=== PATIENT | male | born 1950 | race Caucasian/White ===

== ENCOUNTER 2018-07-18 21:42 | Inpatient (IN) | payer BC, OTHER ==
--- OUTSIDE RECORDS SUMMARY | 2018-07-18 21:45 | XMS REPORT ---
:1950 Author Organization [facility] Address [address] [place] [address] Dr. Smith [address] [place] [id number] Care Team Providers Name Role Phone Unavailable Unavailable Unavailable Problems This patient has no known problems. Allergies, Adverse Reactions, Alerts This patient has no known allergies or adverse reactions. Medications This patient has no known medications.
--- OUTSIDE RECORDS SUMMARY | 2018-07-18 21:45 | XMS REPORT | Clinical Summary ---
:1950 Author Organization [facility] Address [address] [place] [id number] Care Team Providers Name Role Phone Juma Dobbins MD Primary Care Provider Allergies Active Allergy Reactions Severity Noted Date Comments Metoclopramide Hcl Rash Low 06/03/2012 Medications Medication Sig Dispensed Refills Start Date End Date Status etodolac (LODINE) TAKE 1 TABLET BY 0 04/09/2018 Active 500 MG tablet MOUTH TWICE DAILY azelastine 1 spray into 0 01/17/2017 Active (ASTELIN) 137 mcg each nostril. (0.1 %) nasal spray hydrOXYzine TAKE 1 TABLET BY 0 07/01/2017 Active (ATARAX) 25 MG MOUTH EVERY 6 tablet HOURS NEEDED FOR ITCHING LEVEMIR FLEXTOUCH INJECT 50 UNITS 0 04/30/2018 Active U-100 INSULN 100 SC BID unit/mL (3 mL) insulin pen lisinopril Take 10 mg by 0 03/28/2018 Active (PRINIVIL,ZESTRIL) mouth. 10 mg tablet metFORMIN TAKE 1 TABLET BY 0 09/12/2017 Active (GLUCOPHAGE) 1,000 MOUTH TWICE mg tablet DAILY metoprolol TK 1 T PO BID 3 04/26/2018 Active tartrate (LOPRESSOR) 100 mg tablet omega-3 acid ethyl TK 4 CS PO QD 0 03/28/2018 Active esters (LOVAZA) 1 gram capsule pen needle, USE TO INJECT 0 09/02/2017 Active diabetic (BD UNDER THE SKIN ULTRA-FINE SHORT TWICE DAILY PEN NEEDLE) 31 gauge x 5/16" needle pen needle, Use every night 0 06/06/2016 Active diabetic 29 gauge at bedtime x 1/2" needle insulin U UTD 1 04/15/2018 Active syringe-needle U-100 1 mL 31 gauge x 5/16 syringe rosuvastatin Take 1 tablet 90 tablet 3 05/05/2018 Active (CRESTOR) 20 MG (20 mg total) by 0 tabletIndications: mouth daily. 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 05/10 without angina pectoris Abnormal EKG 05/10/2018 SOB (shortness of breath) 05/10/2018 Benign essential hypertension 06/03/2012 Diabetes mellitus type 2, uncontrolled, without complications 06/03/2012 Overview: Overview: ICD10 Diagnosis Term Senior Strategy Manager Utility HLD (hyperlipidemia) 06/03/2012 Encounters Date Type Specialty Care Team Description 05/05/2018 Office Visit Cardiology Patrick Zarate MD SOB (shortness of breath) (Primary Dx); Benign essential hypertension; 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 2-4 times a month 2018 How many drinks containing alcohol do you have on a 1 or 2 05/05/2018 typical day when you are drinking? How often do you have six or more drinks on one Not asked occasion? Sex Assigned at Date Recorded Not on file Job Start Date Occupation Industry Not on file Not on file Not on file Travel History Travel Start Travel End No recent travel history available. 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 Plan of Treatment Date Type Specialty Care Team Description 11/04/2018 Office Visit Cardiology Patrick Zarate MD [id number] [address] Health Maintenance Due Date Last Done Comments DIABETIC RETINAL EYE EXAM 1950 DIABETIC FOOT EXAM 02/24/1958 URINE MICROALBUMIN 02/24/1958 COLON CANCER SCREENING 02/24/1998 SHINGLES VACCINES (#1) 02/24/1998 65+ PNEUMOCOCCAL VACCINE (1 of 2 - PCV13) 02/24/2013 PNEUMOCOCCAL POLYSACCHARIDE VACCINE AGE 65 AND OVER 02/24/2013 INFLUENZA VACCINE 11/27/2017 Procedures Procedure Name Priority Date/Time Associated Diagnosis Comments ECG 12-LEAD Routine 05/05/2018 1:57 PM Benign essential Results for this 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) Ventricular rate 63 [facility] Atrial rate 63 [facility] GA interval 184 [facility] QRSD interval 124 [facility] QT interval 434 [facility] QTC interval 444 [facility] P axis 1 61 [facility] QRS axis 1 3 [facility] T wave axis 16 [facility] EKG impression Normal sinus rhythm-Right bundle branch [facility] block-Abnormal ECG-No previous ECGs available- Narrative Performed At Performing Organization Address City/State/Zipcode Phone Number [facility] [address] [place] [address] after 07/17/2017 Insurance Payer Benefit Plan / Group Subscriber ID Type Phone Address MEDICARE MEDICARE PART A AND B xxxxxxxxxxx Medicare [place], [place] Advance Directives Patient has advance care planning documents on file. For more information, please contact:Cruz Cox[address] [facility] [place] [address]
[2018-07-18 22:49] LABS: Absolute Lymphocytes (CBC) 0.6 K/uL (0.7-4.9); Absolute Monocytes 0.5 K/uL (0.1-1.3); Absolute Neutrophil 3.8 K/uL (1.8-8.0); Basophils % 0.3 % (0-1.3); Eosinophils % 0.1 % (0-4.4); Hematocrit 35.1 % (39.6-49.0); MPV 7.4 fL (7.6-11.3); Monocytes % 9.6 % (3.3-12.3); RBC Red Blood Cell Count 4.14 M/uL (4.33-5.43)
[2018-07-18 23:12] LABS: CKMB Creatine Kinase MB 1.1 ng/mL (0.3-3.6); Potassium 4.1 mmol/L (3.5-5.1); Troponin (Emerg Dept Use Only) 0.02 ng/mL (0.0-0.045)
--- NOTE | 2018-07-18 23:40 | EDPHYS ---
Physician Documentation [facility] Name: Shivam Sykes Age: 68 yrs Sex: Male : 1950 Arrival Date: 07/18/2018 Time: 21:44 Bed 19 Private MD: ED Physician Pastor Hernandez HPI: 07/19 00:04 This 68 yrs old Male presents to ER via EMS with complaints of Dizziness, tw4 General Weakness, Fall Injury. 00:04 The patient presents with dizziness, feeling faint, lightheadedness, feeling off tw4 balance. Onset: The symptoms/episode began/occurred this morning. Context: occurred at home, occurred while the patient was standing, just prior to the episode the patient experienced no apparent symptoms. Modifying factors: The symptoms are alleviated by nothing, the symptoms are aggravated by nothing. Associated signs and symptoms: The patient has no apparent associated signs or symptoms. Severity of symptoms: At their worst the symptoms were moderate in the emergency department the symptoms are unchanged. The patient has not experienced similar symptoms in the past. Historical: - Allergies: 07/18 21:50 No Known Allergies; rr5 - Home Meds: 21:50 Metoprolol Tartrate Oral [Active]; Levemir subcutaneous subcutaneous [Active]; Crestor rr5 oral oral [Active]; - PMHx: 21:50 Hypertension; Diabetes - IDDM; rr5 - PSHx: 21:50 2000; rr5 - Immunization history:: Adult Immunizations not up to date, Flu vaccine is not up to date. - Social history:: Smoking status: Patient/guardian denies using tobacco, Patient uses alcohol, occasionally. Patient/guardian denies using street drugs. - Immunization history: Last tetanus immunization: unknown. - Ebola Screening: : Patient negative for fever greater than or equal to 101.5 degrees Fahrenheit, and additional compatible Ebola Virus Disease symptoms Patient denies exposure to infectious person Patient denies travel to an Ebola-affected area in the 21 days before illness onset. ROS: 07/19 00:04 Constitutional: Negative for fever, chills, and weight loss, Eyes: Negative for injury, tw4 pain, redness, and discharge, Cardiovascular: Negative for chest pain, palpitations, and edema, Respiratory: Negative for shortness of breath, cough, wheezing, and pleuritic chest pain, Abdomen/GI: Negative for abdominal pain, nausea, vomiting, diarrhea, and constipation. MS/extremity: Positive for injury or acute deformity, decreased range of motion, pain, Negative for abrasion, bite, contusion, laceration, paresthesias. Neuro: Positive for dizziness, near syncope, Negative for loss of consciousness, numbness, seizure activity, speech changes, tinnitus, tremor, visual changes, weakness. Exam: 00:04 Constitutional: This is a well developed, well nourished patient who is awake, alert, tw4 and in no acute distress. Head/Face: Normocephalic, atraumatic. Chest/axilla: Normal chest wall appearance and motion. Nontender with no deformity. No lesions are appreciated. Cardiovascular: Regular rate and rhythm with a normal S1 and S2. No gallops, murmurs, or rubs. Normal PMI, no JVD. No pulse deficits. Respiratory: Lungs have equal breath sounds bilaterally, clear to auscultation and percussion. No rales, rhonchi or wheezes noted. No increased work of breathing, no retractions or nasal flaring. Abdomen/GI: Soft, non-tender, with normal bowel sounds. No distension or tympany. No guarding or rebound. No evidence of tenderness throughout. Back: No spinal tenderness. No costovertebral tenderness. Full range of motion. Neuro: Awake and alert, GCS 15, oriented to person, place, time, and situation. Cranial nerves II-XII grossly intact. Motor strength 5/5 in all extremities. Sensory grossly intact. Cerebellar exam normal. Normal gait. 00:04 Musculoskeletal/extremity: Extremities: noted in the right hip: Vital Signs: 07/18 21:50 Weight 105.69 kg; Height 6 ft. 0 in. (182.88 cm); Pain 3/10; rr5 21:55 BP 163 / 79; Pulse 95; Resp 20; Temp 100.6; Pulse Ox 99% on R/A; rr5 22:45 BP 163 / 67; Pulse 90; Resp 26; Pulse Ox 94% on R/A; Pain 0/10; aa1 23:27 BP 163 / 73; Pulse 90; Resp 16; Temp 98.1; Pulse Ox 97% on R/A; Pain 0/10; aa1 07/19 00:15 BP 165 / 69; Pulse 86; Resp 15; Pulse Ox 96% ; rr5 01:01 BP 140 / 66; Pulse 84; Resp 18; Pulse Ox 95% on R/A; Pain 0/10; aa1 07/18 21:50 Body Mass Index 31.60 (105.69 kg, 182.88 cm) rr5 Providence Coma Score: 07/18 21:55 Eye Response: spontaneous(4). Verbal Response: oriented(5). Motor Response: obeys rr5 commands(6). Total: 15. Trauma Score (Adult): 21:55 Eye Response: spontaneous(1); Verbal Response: oriented(1); Motor Response: obeys rr5 commands(2); Systolic BP: > 89 mm Hg(4); Respiratory Rate: 10 to 29 per min(4); Providence Score: 15; Trauma Score: 12 22:45 Eye Response: spontaneous(1); Verbal Response: oriented(1); Motor Response: obeys aa1 commands(2); Systolic BP: > 89 mm Hg(4); Respiratory Rate: 10 to 29 per min(4); Providence Score: 15; Trauma Score: 12 23:27 Eye Response: spontaneous(1); Verbal Response: oriented(1); Motor Response: obeys aa1 commands(2); Systolic BP: > 89 mm Hg(4); Respiratory Rate: 10 to 29 per min(4); Providence Score: 15; Trauma Score: 12 MDM: 22:00 Patient medically screened. tw4 07/19 00:13 Differential diagnosis: TIA. Data reviewed: vital signs, nurses notes. tw4 00:45 Data interpreted: Pulse oximetry: Interpretation: normal. Test interpretation: by ED tw4 physician or midlevel provider: ECG, plain radiologic studies. Counseling: I had a detailed discussion with the patient and/or guardian regarding: the historical points, exam findings, and any diagnostic results supporting the discharge/admit diagnosis, lab results, radiology results. Medication response: morphine relieved the patient's pain. Symptoms have resolved. Response to treatment: There is no appreciated change of the patient's symptoms at this time. Physician consultation: North Grant MD regarding admission, to the medical/surgical unit. and will see patient in inpatient room. 07/18 22:03 Order name: Basic Metabolic Panel tw4 07/18 22:03 Order name: CBC with Diff tw4 03/22 22:03 Order name: Creatinine for Radiology tw4 07/18 22:03 Order name: Type And Screen tw4 07/18 22:03 Order name: CK; Complete Time: 23:34 tw4 07/18 22:03 Order name: Troponin (emerg Dept Use Only) tw4 07/18 22:03 Order name: CT Head C Spine tw4 07/18 22:03 Order name: CT Pelvis wo Cont tw4 07/18 22:03 Order name: EKG; Complete Time: 22:04 tw4 07/18 22:03 Order name: Ckmb tw4 07/18 22:09 Order name: Flu tw4 07/19 00:49 Order name: Urinalysis EDNC 07/18 22:03 Order name: Labs collected and sent; Complete Time: 22:51 tw4 07/18 22:51 Order name: EKG - Nurse/Tech; Complete Time: 22:51 aa1 EC:45 Rate is 89 beats/min. Rhythm is regular with Right bundle branch block. QRS [place] is tw4 Normal. [place] interval is normal. QRS interval is normal. QT interval is normal. No Q waves. T waves are Inverted in leads V1, V2, V3, V6. No ST changes noted. Clinical impression: NSR w/ Non-specific ST/T Changes. Interpreted by me. Reviewed by me. Administered Medications: 00:05 Drug: Zofran 4 mg Route: IVP; Site: right forearm; aa1 01:05 Follow up: Response: No adverse reaction aa1 00:08 Drug: morphine 4 mg Route: IVP; Site: right forearm; aa1 01:05 Follow up: Response: No adverse reaction; Pain is decreased aa1 Disposition: 07/18/18 23:41 Hospitalization ordered by North Grant for Inpatient Admission. Preliminary diagnosis are Syncope and collapse, Intra-abdominal and pelvic swelling, mass and lump. - Bed requested for Telemetry/MedSurg (Inpatient). - Status is Inpatient Admission. aa1 - Condition is Fair. - Problem is new. - Symptoms are unchanged. UTI on Admission? No Signatures: Dispatcher [employer] EDNC Joselyn Sales RN RN aa1 Ora Uriostegui RN RN Pastor Hernandez MD MD tw4 Melissa, Roe, RN RN rr5 Corrections: (The following items were deleted from the chart) 07/18 23:40 23:40 07/18/2018 23:40 Discharged to Home. Impression: Syncope and collapse; pelvic tw4 mass. Condition is Stable. Forms are Medication Reconciliation Form, Thank You Letter, Antibiotic Education, Prescription Opioid Use. Follow up: Private Physician; When: Upon discharge from the Emergency Department; Reason: If symptoms return, Recheck today's complaints, Continuance of care. Problem is new. Symptoms have improved. tw4 07/19 01:08 07/18 23:41 Hospitalization Ordered by North Grant MD for Inpatient Admission. cg Preliminary diagnosis is Syncope and collapse; Intra-abdominal and pelvic swelling, mass and lump. Bed requested for Telemetry/MedSurg (Inpatient). Status is Inpatient Admission. Condition is Fair. Problem is new. Symptoms are unchanged. UTI on Admission? No. tw4 07/19 01:34 01:08 07/18/2018 23:41 Hospitalization Ordered by North Grant MD for Inpatient aa1 Admission. Preliminary diagnosis is Syncope and collapse; Intra-abdominal and pelvic swelling, mass and lump. Bed requested for Telemetry/MedSurg (Inpatient). Status is Inpatient Admission. Condition is Fair. Problem is new. Symptoms are unchanged. UTI on Admission? No. cg
--- NOTE | 2018-07-18 23:40 | ER ---
Nurse's Notes [facility] Name: Shivam Sykes Age: 68 yrs Sex: Male : 1950 Arrival Date: 07/18/2018 Time: 21:44 Bed 19 Private MD: Diagnosis: Syncope and collapse;Intra-abdominal and pelvic swelling, mass and lump Presentation: 07/18 21:50 Presenting complaint: EMS states: patient fell down 10-11 hours ago, complaining of rr5 right hip and low back pain. complaining of dizziness and generalized body weakness. 21:50 Transition of care: patient was not received from another setting of care. Onset of rr5 symptoms was July 18, 2018. Risk Assessment: Do you want to hurt yourself or someone else? Patient reports no desire to harm self or others. Initial Sepsis Screen: Does the patient meet any 2 criteria? No. Patient's initial sepsis screen is negative. Does the patient have a suspected source of infection? No. Patient's initial sepsis screen is negative. Care prior to arrival: None. 21:50 Method Of Arrival: EMS: [facility] rr5 21:50 Acuity: JIMBO 2 rr5 21:50 Note CBG from EMS 150 mg/dl, pain score of 3/10 at right hip and right leg. rr5 21:55 Mechanism of Injury: Fall. Trauma event details: Injury occurred: at home. Injury rr5 occurred: July 18, 2018 Injury occurred at: 10:00. Trauma Activation: Alert Physician: ED Physician; Name: dr. chin; Notified At: 21:55; Arrived At: 21:55 Physician: General Surgeon; Name: ; Notified At: 21:55; Arrived At: Physician: Radiology; Name: meghan; Notified At: 21:55; Arrived At: 21:56 Physician: Respiratory; Name: ; Notified At: 21:55; Arrived At: Physician: Lab; Name: ; Notified At: 21:55; Arrived At: Historical: - Allergies: 21:50 No Known Allergies; rr5 - Home Meds: 21:50 Metoprolol Tartrate Oral [Active]; Levemir subcutaneous subcutaneous [Active]; Crestor rr5 oral oral [Active]; - PMHx: 21:50 Hypertension; Diabetes - IDDM; rr5 - PSHx: 21:50 2000; rr5 - Immunization history:: Adult Immunizations not up to date, Flu vaccine is not up to date. - Social history:: Smoking status: Patient/guardian denies using tobacco, Patient uses alcohol, occasionally. Patient/guardian denies using street drugs. - Immunization history: Last tetanus immunization: unknown. - Ebola Screening: : Patient negative for fever greater than or equal to 101.5 degrees Fahrenheit, and additional compatible Ebola Virus Disease symptoms Patient denies exposure to infectious person Patient denies travel to an Ebola-affected area in the 21 days before illness onset. Screenin:55 Abuse screen: Denies threats or abuse. Denies injuries from another. Tuberculosis rr5 screening: No symptoms or risk factors identified. 21:55 Nutritional screening: No deficits noted. rr5 21:55 Fall Risk Fall in past 12 months (25 points). Gait- Weak (10 pts.). Total Carlos Fall rr5 Scale indicates Low Risk Score (25-44 pts). Fall prevention measures have been instituted. Side Rails Up X 2 Placed close to Nursing Station Frequent Obs/Assesments occuring Family Present and informed to notify staff if they need to leave bedside As available Patient and Family Educated on Fall Prevention Program and strategies. Primary Survey: 21:50 NO uncontrolled hemorrhage observed. A: The patient is alert. Airway: patent. rr5 21:50 Breathing/Chest: Respiratory pattern: regular, Respiratory effort: spontaneous, rr5 unlabored, Breath sounds: clear, Chest inspection: symmetrical rise and fall of the chest. Circulation: Cardiac rhythm: sinus rhythm Heart tones present. Pulses: palpable right radial artery. Skin color: pink, Skin temperature: warm. Disability Alert. Exposure/Environment: A warming method has been applied: A warm blanket has been provided to the patient. 22:50 Reassessment Airway Airway Patent Oxygen No O2 Breathing/Chest Respiratory pattern aa1 Regular Respiratory effort Spontaneous Unlabored Breath sounds Clear Chest inspection Symmetrical Circulation Pulses Palpable Color [place] Temperature Warm Disability Alert. Secondary Survey: 21:50 HEENT: No deficits noted. Gastrointestinal: No deficits noted. : No deficits noted. rr5 Musculoskeletal: Capillary refill < 3 seconds, Range of motion: limited in right hip. Injury Description: skin peeled at right elbow. Assessment: 21:50 General: Appears in no apparent distress. comfortable, Behavior is calm, cooperative, rr5 appropriate for age. Pain: Complains of pain in low back Pain radiates to right hip Pain currently is 3 out of 10 on a pain scale. Quality of pain is described as aching, Pain began suddenly, Is intermittent. 21:50 Neuro: Level of Consciousness is awake, alert, obeys commands, Oriented to person, rr5 place, time, situation, Appropriate for age Reports dizziness, weakness in body. EENT: No signs and/or symptoms were reported regarding the EENT system. Cardiovascular: Capillary refill < 3 seconds Patient's skin is warm and dry. Respiratory: Airway is patent Respiratory effort is even, unlabored, Respiratory pattern is regular, symmetrical. GI: No signs and/or symptoms were reported involving the gastrointestinal system. : No signs and/or symptoms were reported regarding the genitourinary system. Derm: Skin is intact, Skin temperature is warm Wound noted skin peeled right elbow. Musculoskeletal: Capillary refill < 3 seconds, Range of motion: limited in right hip Reports weakness in generalized. 22:30 Reassessment: Patient appears in no apparent distress at this time. Patient and/or aa1 family updated on plan of care and expected duration. Pain level reassessed. Patient is alert, oriented x 3, equal unlabored respirations, skin warm/dry/pink. Pt returned from CT at this time Patient denies pain at this time. 23:05 Reassessment: Patient appears in no apparent distress at this time. Patient and/or aa1 family updated on plan of care and expected duration. Pain level reassessed. Patient is alert, oriented x 3, equal unlabored respirations, skin warm/dry/pink. MD at bedside with pt \T\ family discussing CT results. 07/19 00:00 Reassessment: Patient appears in no apparent distress at this time. Patient and/or aa1 family updated on plan of care and expected duration. Pain level reassessed. Patient is alert, oriented x 3, equal unlabored respirations, skin warm/dry/pink. Awaiting bed admission orders from hospitalist. 01:01 Reassessment: Patient appears in no apparent distress at this time. Patient and/or aa1 family updated on plan of care and expected duration. Pain level reassessed. Patient is alert, oriented x 3, equal unlabored respirations, skin warm/dry/pink. Pt awaiting bed assignment. 01:30 Reassessment: Patient appears in no apparent distress at this time. Patient is alert, aa1 oriented x 3, equal unlabored respirations, skin warm/dry/pink. Report given to DAVID Lawrence on 4th floor. Vital Signs: 07/18 21:50 Weight 105.69 kg; Height 6 ft. 0 in. (182.88 cm); Pain 3/10; rr5 21:55 BP 163 / 79; Pulse 95; Resp 20; Temp 100.6; Pulse Ox 99% on R/A; rr5 22:45 BP 163 / 67; Pulse 90; Resp 26; Pulse Ox 94% on R/A; Pain 0/10; aa1 23:27 BP 163 / 73; Pulse 90; Resp 16; Temp 98.1; Pulse Ox 97% on R/A; Pain 0/10; aa1 07/19 00:15 BP 165 / 69; Pulse 86; Resp 15; Pulse Ox 96% ; rr5 01:01 BP 140 / 66; Pulse 84; Resp 18; Pulse Ox 95% on R/A; Pain 0/10; aa1 07/18 21:50 Body Mass Index 31.60 (105.69 kg, 182.88 cm) rr5 Leigh Coma Score: 07/18 21:55 Eye Response: spontaneous(4). Verbal Response: oriented(5). Motor Response: obeys rr5 commands(6). Total: 15. Trauma Score (Adult): 21:55 Eye Response: spontaneous(1); Verbal Response: oriented(1); Motor Response: obeys rr5 commands(2); Systolic BP: > 89 mm Hg(4); Respiratory Rate: 10 to 29 per min(4); Leigh Score: 15; Trauma Score: 12 22:45 Eye Response: spontaneous(1); Verbal Response: oriented(1); Motor Response: obeys aa1 commands(2); Systolic BP: > 89 mm Hg(4); Respiratory Rate: 10 to 29 per min(4); Leigh Score: 15; Trauma Score: 12 23:27 Eye Response: spontaneous(1); Verbal Response: oriented(1); Motor Response: obeys aa1 commands(2); Systolic BP: > 89 mm Hg(4); Respiratory Rate: 10 to 29 per min(4); Marbella Score: 15; Trauma Score: 12 ED Course: 20:34 Initial lab(s) drawn, by me, sent to lab. T\T\S collected, blood band applied to patient. aa1 Inserted saline lock: 18 gauge in right forearm, using aseptic technique. Blood collected. 20:47 EKG done, by ED staff, reviewed by Pastor Chin MD. aa1 21:44 Patient arrived in ED. rr5 21:50 Patient maintains SpO2 saturation greater than 95% on room air. Thermoregulation: warm aa1 blanket given to patient. 21:50 Patient has correct armband on for positive identification. Placed in gown. Bed in low aa1 position. Call light in reach. Side rails up X2. bus driver/monitor on. Pulse ox on. NIBP on. 21:54 Triage completed. rr5 22:00 Pastor Chin MD is Attending Physician. tw4 22:26 CT completed. Patient tolerated procedure well. Patient moved back from CT. vm2 22:29 CT Head C Spine In Process Unspecified. EDMS 22:33 CT Pelvis wo Cont In Process Unspecified. EDMS 22:50 Joselyn Sales, RN is Primary Nurse. aa1 22:50 Flu Sent. aa1 22:50 Ckmb Sent. aa1 22:50 Troponin (emerg Dept Use Only) Sent. aa1 22:50 CK Sent. aa1 22:51 Basic Metabolic Panel Sent. aa1 22:51 Creatinine for Radiology Sent. aa1 22:51 Type And Screen Sent. aa1 23:40 [place] Grant MD is Hospitalizing Provider. tw4 07/19 01:30 No provider procedures requiring assistance completed. Patient admitted, IV remains in aa1 place. Administered Medications: 00:05 Drug: Zofran 4 mg Route: IVP; Site: right forearm; aa1 01:05 Follow up: Response: No adverse reaction aa1 00:08 Drug: morphine 4 mg Route: IVP; Site: right forearm; aa1 01:05 Follow up: Response: No adverse reaction; Pain is decreased aa1 Intake: 07/18 23:27 PO: 240ml (Water); Total: 240ml. aa1 Outcome: 23:40 Discharge ordered by . tw4 23:41 Decision to Hospitalize by Provider. tw07/19 01:30 Admitted to Med/surg accompanied by nurse, via stretcher, room 401, with chart, Report aa1 called to Melinda Condition: stable Instructed on the need for admit, Demonstrated understanding of instructions. 01:30 Awaiting bed assignmentPatient's length of stay extended due to aa1 01:34 Patient left the ED. aa1 Signatures: Dispatcher [employer] EDMS Joselyn Sales, RN RN aa1 Meghan Leos 2 Pastor Chin MD MD tw4 Roe Melissa RN RN rr5
[2018-07-19] MEDS ORDERED: ONDANSETRON 4 MG/2 ML VIAL ONE (00:14)
[2018-07-19] MEDS ORDERED: MORPHINE 4 MG/ML SYR ONE (00:14)
--- NOTE | 2018-07-19 01:15 | P.HP ---
Certification for Inpatient Patient admitted to: Observation With expected LOS: <2 Midnights Practitioner: I am a practitioner with admitting privileges, knowledge of patient current condition, hospital course, and medical plan of care. Services: Services provided to patient in accordance with Admission requirements found in Title 42 Section 412.3 of the Code of Federal Regulations Patient History Date of Service: 07/19/18 Reason for admission: fall, fever, right hip soft tissue mass History of Present Illness: Mr Sykes is a 68 years old male with history of HTN, DM II, CAD, who has been complaining of right hip pain, for the last 6 month. Since 2 days ago, he has been dizzy, having headaches and weakness. Last night, he fell, landing over his right hip, exacerbating even more his chronic pain. He become dizzy while was dressing. He states that was not able to stand up from the floor due to pain and weakness. His son helped him once came home. He denied fever or chills at home, however, in ER his temp was 100.6 F. He denied cough, SOB, abdominal pain, nausea, vomiting or diarrhea. Lab work shows normal WBC count, BUN slightly elevated, CT head/cervical spine shows no acute abnormlities. CT pelvis remarkable for a large soft tissue mass involving the right iliac and acetabulum. He had an unintentional weight loss of about 20 lb in the last few months. Home medications list reviewed: Yes - Past Medical/Surgical History -: HTN -: DM II -: CAD -: cornary stent - Family History Family History: Reviewed- Non-Contributory - Social History Smoking Status: Former smoker Alcohol use: Yes CD- Drugs: No Place of Residence: Home Review of Systems 10-point ROS is otherwise unremarkable Physical Examination - Physical Exam General: Alert, In no apparent distress HEENT: Atraumatic, PERRLA, Mucous membr. moist/pink, EOMI, Sclerae nonicteric Neck: Supple, 2+ carotid pulse no bruit, No LAD, Without JVD or thyroid abnormality Respiratory: Clear to auscultation bilaterally, Normal air movement Cardiovascular: Regular rate/rhythm, Normal S1 S2 Gastrointestinal: Normal bowel sounds, No tenderness Musculoskeletal: Tenderness (right hip) Integumentary: No rashes Neurological: Normal speech, Normal strength at 5/5 x4 extr, Normal tone, Normal affect Lymphatics: No axilla or inguinal lymphadenopathy - Studies Laboratory Data (last 24 hrs) 07/18/18 20:34: Creatinine 1.20 07/18/18 20:34: WBC 4.9, Hgb 11.7 L, Hct 35.1 L, Plt Count 145 L 07/18/18 20:34: Sodium 136, Potassium 4.1, BUN 31 H, Creatinine 1.22, Glucose 157 H Microbiology Data (last 24 hrs): 07/18/18 20:34 Nasopharnyx Influenza Type A Antigen Screen - Final 07/18/18 20:34 Nasopharnyx Influenza Type B Antigen Screen - Final Assessment and Plan - Problems (Diagnosis) (1) Right hip pain Current Visit: Yes Status: Acute (2) Dizziness Current Visit: Yes Status: Acute (3) Fever Current Visit: Yes Status: Acute Qualifiers: Fever type: unspecified Qualified Code(s): R50.9 - Fever, unspecified (4) Soft tissue mass Current Visit: Yes Status: Acute (5) Diabetes mellitus Current Visit: Yes Status: Acute Qualifiers: Diabetes mellitus type: type 2 Diabetes mellitus fdc insulin use: without termite technician use Diabetes mellitus complication status: with unspecified complications Qualified Code(s): E11.8 - Type 2 diabetes mellitus with unspecified complications (6) HTN (hypertension) Current Visit: Yes Status: Acute Qualifiers: Hypertension type: essential hypertension Qualified Code(s): I10 - Essential (primary) hypertension - Plan The patient will be admitted to the hospital after sustainded a fall, in context of fever without clear source so far, UA is still pending. Incidentally was found a large soft tissue mass on his right pelvis area, suspicious for malignancy. Will order CT guided biopsy, physical therapy evaluation. Influenza negative, order blood cultures. Continue symptomatic treatment. - Advance Directives Does patient have a Living Will: No Does patient have a Durable POA for Healthcare: No - Code Status/Comfort Care Code Status Assessed: Yes Code Status: Full Code
[2018-07-19] MEDS ORDERED: ACETAMINOPHEN 500 MG TAB PO PRN (01:29)
[2018-07-19] MEDS ORDERED: MORPHINE 2 MG/ML SYR IM PRN (01:29)
[2018-07-19] MEDS: NA CHLORIDE 0.9% 1,000 ML IV SCH ×3 (02:02→21:10)
[2018-07-19 02:41] VITALS: BMI 31.6
[2018-07-19 06:36] LABS: Urine Appearance CLEAR; Urine Blood NEGATIVE (NEG); Urine Color DK YELLOW; Urine Glucose NEGATIVE (NEG); Urine Protein 2+ (NEG); Urine Specific Gravity >=1.030 (1.005-1.030)
[2018-07-19 06:51] LABS: Urine Bilirubin POSITIVE (NEG); Urine Microscopic Reflex ORDER UMIC
[2018-07-19 06:56] LABS: Urine Bacteria 20-50 /HPF (NONE SEEN); Urine Culture Reflex Order REFLEXED; Urine Mucus 1+ /HPF (NONE SEEN); Urine RBC NONE SEEN /HPF (NONE SEEN)
[2018-07-19] MEDS ORDERED: CEFTRIAXONE 1 GM/NS 50 ML 1 GM/50 ML BAG IV SCH (09:00)
[2018-07-19] MEDS ORDERED: METOPROLOL TAR 50 MG TAB PO SCH ×2 (09:00→09:55)
--- NOTE | 2018-07-19 09:39 | EKG ---
Test Date: 2018-07-18 Test Time: 22:43:54 Depositing Machine Operator: KADE MEASUREMENT RESULTS: Intervals: Rate: 89 NC: 158 QRSD: 124 QT: 372 QTc: 452 Henderson: P: 55 NC: 158 QRS: 5 T: 26 INTERPRETIVE STATEMENTS: Normal sinus rhythm Right bundle branch block Abnormal ECG Compared to ECG 05/25/2002 05:36:00 Right bundle-branch block now present T-wave abnormality no longer present Electronically Signed On 07-19-18 09:38:14 CDT by Jb Rodriguez
[2018-07-19] MEDS: CEFTRIAXONE/SWI 1gm 1 GM/10 ML SYR IV SCH (09:41)
[2018-07-19] MEDS ORDERED: GLUCAGON 1 MG/VIAL IM PRN (09:56)
[2018-07-19] MEDS ORDERED: D50W 25 GM/50 ML SYRINGE IV PRN (09:56)
--- NOTE | 2018-07-19 09:56 | P.PN ---
Subjective Date of Service: 07/19/18 Primary Care Provider: Dr. Dobbins Chief Complaint: fall, fever, right hip soft tissue mass Subjective: Other (Overall stable. Still with some right hip pain. Patient reports some increased urination over the past several days with some dysuria) Physical Examination - Vital Signs Temperature: 98.4 F Blood Pressure: 172/70 Pulse: 89 Respirations: 16 Pulse Ox (%): 97 - Physical Exam General: Alert, In no apparent distress, Oriented x3, Cooperative HEENT: Atraumatic Neck: Supple Respiratory: Clear to auscultation bilaterally, Normal air movement Cardiovascular: Normal pulses, Regular rate/rhythm Gastrointestinal: Normal bowel sounds, Soft and benign, Non-distended, No tenderness, No masses, No rebound, No guarding Musculoskeletal: Other (Pain to the right hip region) Integumentary: No erythema, No warmth, No cyanosis Neurological: Normal speech, Normal strength at 5/5 x4 extr, Normal tone, Normal affect - Studies Laboratory Data (last 24 hrs) 07/18/18 20:34: Creatinine 1.20 07/18/18 20:34: WBC 4.9, Hgb 11.7 L, Hct 35.1 L, Plt Count 145 L 07/18/18 20:34: Sodium 136, Potassium 4.1, BUN 31 H, Creatinine 1.22, Glucose 157 H Microbiology Data (last 24 hrs): 07/18/18 20:34 Nasopharnyx Influenza Type A Antigen Screen - Final 07/18/18 20:34 Nasopharnyx Influenza Type B Antigen Screen - Final Medications List Reviewed: Yes Assessment & Plan Discharge Plan: Home Plan to discharge in: Greater than 2 days Physician Review Additional Text: Impression: Right hip pain with weight loss CT showing mass to the right acetabulum and iliac region UTI Mild dehydration with mild acute renal injury Diabetes mellitus type 2 Hypertension BPH Anemia likely iron deficiency Obesity, BMI 31.6 Plan: Right hip pain with weight loss CT showing mass to the right acetabulum and iliac region: Will need to review final results of CT scan. Will consult orthopedics to further evaluate. Patient may require a CT-guided biopsy versus other. Will need to discuss with orthopedics. Other consideration may be transfer to higher level center to further evaluate. Await recommendations by orthopedics. Will have physical therapy assess ambulation. Provide medication for pain. Fall precautions in place. Patient may required skilled placement at discharge. UTI: Antibiotics started. Urine and blood culture obtained. Mild dehydration with mild acute renal injury: Continue IV fluids. Monitor lab closely. Will replace electrolytes as needed. Diabetes mellitus type 2: Will check A1c. Will provide sliding scale. Will need to review and obtain home medication. Hypertension: Review and restart home medication. BPH: Review and restart home medication. Anemia likely iron deficiency: Will check iron studies. Will monitor closely. Obesity, BMI 31.6: Will address lifestyle modification education. Time Spent Managing Pts Care (In Minutes): 55
[2018-07-19] MEDS ORDERED: TRAMADOL HCL 50 MG TAB PO PRN (09:57)
[2018-07-19] MEDS ORDERED: PNEUMOCOCCAL VACCINE 0.5 ML IMVAC ONE (10:00)
[2018-07-19] MEDS: INSULIN -REGULAR HUMAN 50 UNIT/0.5 ML ML SQ SCH ×3 (11:30→20:43)
[2018-07-19] MEDS: METOPROLOL TAR 50 MG TAB PO SCH ×2 (13:03→21:11)
[2018-07-19 13:54] LABS: Thyroid Stimulating Hormone 0.493 uIU/mL (0.360-3.740)
[2018-07-19] MEDS: ENOXAPARIN 40 MG/0.4 ML SQ SCH (16:02)
--- NOTE | 2018-07-19 16:21 | P.CNS ---
Date of Consult: 07/19/18 Reason for Consult: RIGHT HIP PAIN, SOFT TISSUE MASS Requesting Physician: Kali Chiu Primary Care Provider: Dr. Dobbins Chief Complaint: fall, fever, right hip soft tissue mass History of Present Illness: THIS 68-YEAR-OLD WHITE MALE WAS ADMITTED FROM THE EMERGENCY DEPARTMENT AFTER HAVING A FALL AT HOME LAST NIGHT WITH AN APPARENT TIA EPISODE. THE PATIENT FELL TO STRIKE THE RIGHT LATERAL SIDE OF HIS HEAD BUT DENIES LOSS OF CONSCIOUSNESS. THERE WAS ALSO IMPACT TO THE RIGHT LATERAL HIP, AND THE PATIENT WAS UNABLE TO STAND, REQUIRING HELP FROM HIS SON TO GET TO A CHAIR. THE PATIENT DESCRIBES 6 YEARS OF CHRONIC HIP PAIN PRIOR TO THIS FALL ASSOCIATED WITH NUMBNESS AND TINGLING TO HIS RIGHT KNEE. THE PATIENT HAD [facility] X-RAYS SHOWING SOME MILD ARTHRITIC CHANGES AT THE ACETABULAR RIMS SO HE WAS SEEN IN MY OFFICE ON 06/13/16. AP AND FROG LATERAL PELVIS X-RAYS THERE SHOWED NO NARROWING OF JOINT SPACE IN THE WEIGHT BEARING DOMES, AND THE PATIENT WAS INITIATED ON LUMBOSACRAL STABILIZATION EXERCISES, CONSERVATIVE MANAGEMENT OF SCIATICA WHICH WAS STRONGLY INDICATED BY THE NUMBNESS AND TINGLING RADIATING DOWN TO HIS KNEE. CT SCAN DONE WHILE THE PATIENT WAS IN THE EMERGENCY DEPARTMENT SHOWS A SOFT TISSUE MASS INVOLVING THE RIGHT ILIUM AND ILIAC CREST ASSOCIATED WITH AGGRESSIVE LOSS OF BONE MASS OF THE ILIAC BONE DOWN TO JUST ABOVE THE ACETABULUM BY MY READ. [address] SCAN PERFORMED FORMAL RADIOLOGY REPORT IS YET TO BE AVAILABLE FOR REVIEW. THE PATIENT HAS BEEN ADMITTED TO BED REST, AND INDICATES HE'S QUITE COMFORTABLE LONG HE DOESN'T BEAR WEIGHT ON OR SIGNIFICANTLY MOVE HIS RIGHT LOWER EXTREMITY. THE PATIENT DENIES FEVER OR CHILLS, BUT PRESENTED WITH A LOW GRADE 100.6 TEMP ELEVATION, NONE HAVE BEEN RECORDED SINCE. Allergies No Known Allergies Allergy (Unverified 07/19/18 01:28) Home medications list reviewed: Yes Home Medications: Insulin Detemir [Levemir Flextouch] 50 unit SQ BID 07/19/18 Ipratropium [place] 30 ml NS TID 07/19/18 Metoclopramide HCl [Reglan] 10 mg PO ACHS 07/19/18 Metoprolol Tartrate [Lopressor] 100 mg PO BID 07/19/18 Seanor-3/Dha/Epa/Fish Oil [Seanor 3 500 Softgel] 2 each PO DAILY 07/19/18 Rosuvastatin Calcium [Crestor] 20 mg PO BEDTIME 07/19/18 Tamsulosin HCl [Flomax] 0.4 mg PO BEDTIME 07/19/18 Zolpidem Tartrate [Ambien] 10 mg PO BEDTIME PRN PRN 07/19/18 - Past Medical/Surgical History Diabetic: Yes -: HTN -: DM II -: CAD -: sleep apnea -: Gout -: cardiac stent x2, 2001 - Family History Father Medical History: Heart disease, Hypertension Mother Medical History: Heart disease, Hypertension Brother Medical History: Diabetes - Social History Smoking Status: Former smoker Alcohol use: Yes CD- Drugs: No Caffeine use: No Place of Residence: Home Review of Systems 10-point ROS is otherwise unremarkable Physical Examination Temp Pulse Resp BP Pulse Ox 98.4 F 89 16 158/84 H 97 07/19/18 12:00 07/19/18 12:00 07/19/18 12:00 07/19/18 14:00 07/19/18 12:00 General: Alert, In no apparent distress, Oriented x3, Cooperative HEENT: Normocephalic (AREA OF CONTUSION LOCATED ABOVE THE RIGHT EAR SHOWS MINIMAL SWELLING AND MILD TENDERNESS TO PALPATION), PERRLA Neck: Supple (NONTENDER TO PALPATION, IS T-SPINE AND L-SPINE) Respiratory: Normal air movement Cardiovascular: Normal pulses, Regular rate/rhythm Capillary refill: Brisk Gastrointestinal: Soft and benign, Non-distended Musculoskeletal: No swelling, No contractures, No erythema, Tenderness (NOTED WITH PASSIVE MOVEMENT, CIRCUMDUCTION 2 CM ANVIK CAUSES DISCOMFORT. THERE IS TENDERNESS TO PALPATION OVER THE RIGHT ILIAC CREST.) Integumentary: No rashes, No breakdown, No significant lesion, No erythema, No warmth Neurological: Sensation intact (LLE), Abnormal gait (GAIT WAS NOT TESTED BUT THE PATIENT INDICATES HE HAS BEEN LIMPING WITHOUT USE OF AMBULATORY AIDS.) External genitalia: Deferred Rectal: Deferred Laboratory Data (last 24 hrs) 07/18/18 20:34: Creatinine 1.20 07/18/18 20:34: WBC 4.9, Hgb 11.7 L, Hct 35.1 L, Plt Count 145 L 07/18/18 20:34: Sodium 136, Potassium 4.1, BUN 31 H, Creatinine 1.22, Glucose 157 H - Problems (1) Right hip pain Current Visit: Yes Status: Chronic Plan: ASSESSMENT: THE LARGE SOFT TISSUE MASS SEEMS TO HAVE ROUGHLY DIAMETER OF 10 X 10 CM, AND INVOLVES EXTENSIVE LYSIS OF BONE IN THE RIGHT ILIUM DOWN TO APPROXIMATELY 1 CM ABOVE THE ACETABULAR ROOF RIGHT HIP. CERTAINLY THE PAIN POSSIBLY FROM STRESS FRACTURE FROM WEIGHT TRANSFER THROUGH THE ACETABULUM COULD HAVE CAUSED THIS PATIENT'S TIA EPISODE. UTI MAY END UP BEING THE REASON FOR THE PATIENT'S MILD ELEVATION OF TEMPERATURE UPON ARRIVAL TO THE EMERGENCY ROOM. I WILL LEARN MORE FROM THE WRITTEN REPORT FOR CT SCAN BY RADIOLOGY, AND MRI SCAN DONE WITH AND WITHOUT CONTRAST MAY BE DONE SATURDAY. THIS PATIENT WILL NEED A HIGHER LEVEL OF CARE BY AN ORTHOPEDIC ONCOLOGIST AND IT HAS BEEN MY HABIT TO REFER FOR BIOPSY APPROACH FOR BIOPSY CAN CHANGE OPPORTUNITIES FOR SALVAGE OPERATIONS. PLAN: IF PATIENT STAYS HERE THROUGH , MRI WITH AND WITHOUT CONTRAST COULD FURTHER CHARACTERIZE THIS SOFT TISSUE MASS, AND IDENTIFY POSSIBLE STRESS FRACTURE OR OTHER INVOLVEMENT OF THE ACETABULUM. IF OUR RADIOLOGY DEPARTMENT IS COMFORTABLE WITH ROUTINELY DOING FLUOROSCOPIC BIOPSIES FOR BONE METASTASES OR PRIMARY BONE CANCERS ADDITIONAL INFORMATION COULD HELP WITH PATIENT DISPOSITION. MY GOAL WILL BE TO GET HIM TO DEFINITIVE CARE BY AN ORTHOPEDIC SURGEON WITH SUBSPECIALTY IN OSTEOMYELITIS/ONCOLOGY.
[2018-07-19] MEDS ORDERED: HOME MED 1 EA UNK (Rosuvastatin Calcium [Crestor] 20 MG) PO SCH (21:00)
[2018-07-19] MEDS: HYDROCODONE/APAP 7.5/325 MG TAB PO PRN (21:10)
[2018-07-19] MEDS: TAMSULOSIN 0.4 MG SR CAP PO SCH (21:11)
[2018-07-19] MEDS: FAMOTIDINE 20 MG TAB PO SCH (21:11)
[2018-07-19] MEDS: ROSUVASTATIN 10 MG TAB PO SCH (21:11)
[2018-07-19 22:51] VITALS: O2SAT 96
[2018-07-20 05:19] LABS: Absolute Lymphocytes (CBC) 1.2 K/uL (0.7-4.9); Absolute Monocytes 0.4 K/uL (0.1-1.3); Absolute Neutrophil 1.7 K/uL (1.8-8.0); Basophils % 0.6 % (0-1.3); Eosinophils % 0.6 % (0-4.4); Hematocrit 31.7 % (39.6-49.0); Lymphocytes % 36.3 % (15.3-44.8); MPV 7.2 fL (7.6-11.3); RBC Red Blood Cell Count 3.69 M/uL (4.33-5.43)
[2018-07-20 05:31] LABS: Magnesium 1.8 mg/dL (1.8-2.4); Potassium 3.9 mmol/L (3.5-5.1)
[2018-07-20] MEDS: NA CHLORIDE 0.9% 1,000 ML IV SCH ×2 (06:26→17:15)
[2018-07-20] MEDS: INSULIN -REGULAR HUMAN 50 UNIT/0.5 ML ML SQ SCH ×4 (07:30→21:00)
[2018-07-20] MEDS: METOPROLOL TAR 50 MG TAB PO SCH ×2 (08:47→20:51)
[2018-07-20] MEDS: CEFTRIAXONE/SWI 1gm 1 GM/10 ML SYR IV SCH (08:47)
[2018-07-20] MEDS: FAMOTIDINE 20 MG TAB PO SCH ×2 (08:48→20:51)
[2018-07-20] MEDS ORDERED: EPA PO SCH (09:00)
[2018-07-20] MEDS ORDERED: MAGNESIUM SULFATE 1 gm IVPB 1 GM/100 ML BAG IV ONE (09:00)
[2018-07-20] MEDS ORDERED: FISH OIL PO SCH (09:00)
[2018-07-20] MEDS ORDERED: POTASSIUM CL SA 10 MEQ TAB PO ONE (09:00)
[2018-07-20] MEDS ORDERED: OMEGA PO SCH (09:00)
[2018-07-20] MEDS ORDERED: DHA PO SCH (09:00)
--- NOTE | 2018-07-20 10:17 | P.PN ---
Subjective Date of Service: 07/20/18 Primary Care Provider: Dr. Dobbins Chief Complaint: fall, fever, right hip soft tissue mass Subjective: Doing well (Pain still to the right hip region.) Physical Examination - Vital Signs Temperature: 96.8 F Blood Pressure: 166/74 Pulse: 64 Respirations: 16 Pulse Ox (%): 96 - Physical Exam General: Alert, In no apparent distress, Oriented x3, Cooperative HEENT: Atraumatic Neck: Supple Respiratory: Clear to auscultation bilaterally, Normal air movement Cardiovascular: Normal pulses, Regular rate/rhythm Gastrointestinal: Normal bowel sounds, Soft and benign, Non-distended, No masses , No rebound, No guarding Musculoskeletal: No erythema, No tenderness, No warmth Integumentary: No erythema, No warmth, No cyanosis, Tenderness/swelling (Pain to the right hip region) Neurological: Normal speech, Normal strength at 5/5 x4 extr, Normal tone, Normal affect - Studies Medications List Reviewed: Yes Assessment & Plan Discharge Plan: Other (Possible transfer to higher level of care center) Plan to discharge in: 24 Hours Physician Review Additional Text: Impression: Right hip pain with weight loss, decreased mobility, and CT showing mass to the right acetabulum and iliac region UTI Mild dehydration with mild acute renal injury Diabetes mellitus type 2 Hypertension Hyperlipidemia BPH Anemia likely iron deficiency Obesity, BMI 31.6 Plan: Right hip pain with weight loss, decreased mobility, and CT showing mass to the right acetabulum and iliac region: Orthopedic recommends MRI with and without contrast to further evaluate the mass. Will hold off on CT guided biopsy until MRI reviewed. The patient may require transfer to higher level of care center to further evaluate his condition as this may include biopsy and surgery. Will discuss with orthopedics in detail today to confirm plan of care. Continue with pain control medication. Fall precautions in place. I will turn the service over to Dr. Martinez tomorrow. I will go over plan of care with her. UTI: Continue antibiotic therapy. Urine and blood culture obtained. Mild dehydration with mild acute renal injury: Continue IV fluids. Monitor lab closely. Will replace electrolytes as needed. Diabetes mellitus type 2: A1c very well controlled. Continue with sliding scale. Hypertension: Continue home medication Hyperlipidemia: Continue home medication BPH: Continue home medication Anemia with iron and B12 deficiency: Will start iron and B12 supplementation. Will monitor hemoglobin closely. Obesity, BMI 31.6: Will address lifestyle modification education. Time Spent Managing Pts Care (In Minutes): 55
[2018-07-20] MEDS: ONDANSETRON 4 MG/2 ML VIAL IV PRN (10:32)
[2018-07-20] MEDS ORDERED: CYANOCOBALAMIN 1000MCG/ML INJ IM ONE (11:00)
[2018-07-20] MEDS: FERROUS SULFATE 325 MG TAB PO SCH (11:18)
--- NOTE | 2018-07-20 16:03 | P.PN ---
Date of Service: 07/20/18 S: PATIENT HAS PAIN IN RIGHT HIP WITH MOVEMENT, BUT DID GET TO BR WITH ASSISTANCE TO SHOWER. HE INDICATES HE NEARLY FELL WITH DIZZINESS AFTER BENDING FORWARD. HE C/O NAUSEA AND EMESIS AFTER 1/2 BREAKFAST. O: AFEBRILE, VSS EXCEPT MILD HTN, HGB 10.4 DOWN FROM 11.7; WBC 3.4 DOWN FROM 4.9; PLT.114 DOWN FROM 145. NV EXAM INTACT RLE. GOOD STRENGTH WITH DORSIFLEXION AND PLANTARFLEXION ANKLE AND TOES. BRISK CAPILLARY REFILL. A: DISCUSSED MGMT WITH DR. DIAZ. MRI W/WO CONTRAST IN A.M. FLOUROSCOPY AIDED NEEDLE BIOPSY MAY BE NEEDED AFTERWARD TO ACCOMPLISH TRANSFER TO HIGHER LEVEL OF CARE. PATIENT IS AT HIGH RISK OF FALLING. P: PT CONSULT FOR TRAINING PATIENT WITH WALKER, NWB RLE, PLUS TRANSFERS TO CHAIR IF TOLERATED.
[2018-07-20] MEDS: ENOXAPARIN 40 MG/0.4 ML SQ SCH (16:33)
[2018-07-20] MEDS: HYDROCODONE/APAP 7.5/325 MG TAB PO PRN (18:10)
[2018-07-20] MEDS: ROSUVASTATIN 10 MG TAB PO SCH (20:51)
[2018-07-20] MEDS: TAMSULOSIN 0.4 MG SR CAP PO SCH (20:51)
[2018-07-21] MEDS: NA CHLORIDE 0.9% 1,000 ML IV SCH ×3 (04:11→21:15)
[2018-07-21 04:44] LABS: Absolute Lymphocytes (CBC) 1.5 K/uL (0.7-4.9); Absolute Monocytes 0.6 K/uL (0.1-1.3); Absolute Neutrophil 1.7 K/uL (1.8-8.0); Basophils % 0.3 % (0-1.3); Eosinophils % 1.9 % (0-4.4); Hematocrit 29.3 % (39.6-49.0); Lymphocytes % 38.5 % (15.3-44.8); MPV 7.7 fL (7.6-11.3); Monocytes % 15.8 % (3.3-12.3); RBC Red Blood Cell Count 3.48 M/uL (4.33-5.43)
[2018-07-21 05:12] LABS: Potassium 3.9 mmol/L (3.5-5.1)
[2018-07-21] MEDS ORDERED: POTASSIUM CL SA 10 MEQ TAB PO ONE ×2 (06:34→09:00)
[2018-07-21] MEDS: INSULIN -REGULAR HUMAN 50 UNIT/0.5 ML ML SQ SCH ×4 (07:30→21:00)
[2018-07-21 08:15] LABS: Anisocytosis 1+; Blood Morphology Comment NOTED (NOT SEEN); Platelet Estimate DECR; Polychromasia 1+; Urine White Blood Cell Casts OK
[2018-07-21] MEDS: METOPROLOL TAR 50 MG TAB PO SCH ×2 (08:45→21:16)
[2018-07-21] MEDS: FERROUS SULFATE 325 MG TAB PO SCH (08:46)
[2018-07-21] MEDS: DOCOSAHEXANOIC AC/EPA 1000 MG PO SCH (08:46)
[2018-07-21] MEDS: CEFTRIAXONE/SWI 1gm 1 GM/10 ML SYR IV SCH (08:46)
[2018-07-21] MEDS: FAMOTIDINE 20 MG TAB PO SCH ×2 (08:46→21:17)
[2018-07-21] MEDS: CYANOCOBALAMIN 1,000 MCG TAB PO SCH (08:46)
[2018-07-21] MEDS: ONDANSETRON 4 MG/2 ML VIAL IV PRN (08:52)
--- NOTE | 2018-07-21 11:13 | RAD REPORT ---
EXAM DESCRIPTION: CT - Pelvis Wo Cont - 07/18/2018 11:00 pm CLINICAL HISTORY: The patient is 68 years old and is Male; TRAUMA TECHNIQUE: Axial computed tomography images of the pelvis without intravenous contrast. Sagittal a nd coronal reformatted images were created and reviewed. This CT exam was performed using one or mo re of the following dose reduction techniques: automated exposure control, adjustment of the mA and /or kV according to patient size, and/or use of iterative reconstruction technique. COMPARISON: None. FINDINGS: BOWEL: Unremarkable. No obstruction. No mucosal thickening. APPENDIX: No findings to suggest acute appendicitis. INTRAPERITONEAL SPACE: Unremarkable. No free air. No significant fluid collection. BLADDER: Unremarkable. No stones. REPRODUCTIVE: Marked enlargement of the prostate. BONES/JOINTS: Large destructive soft tissue mass measuring 7.5 x 9.6 x 10.4 cm (TRV by AP by CC) w ith associated near-complete erosion of the right iliac as well as acetabular roof. Mass effect on ad jacent structures. L4-5 facet arthropathy. No acute fracture. No dislocation. SOFT TISSUES: Unremarkable. VASCULATURE: Atherosclerotic calcification of the abdominal aorta and iliac vasculature. No lower abdominal aortic aneurysm. LYMPH NODES: Unremarkable. No enlarged lymph nodes. IMPRESSION: 1. Large destructive soft tissue mass involving the right iliac and acetabulum as deta iled above. Finding could represent metastatic disease, or plasmacytoma in the correct clinical setti ng. Primary bone tumor or lymphoma cannot be entirely excluded although considered less likely. MRI o f the right pelvis/hip with and without contrast is recommended for further characterization. 2. No acute fracture or dislocation. 3. Prostatomegaly. 4. Atherosclerotic calcifications. 5. Lower lumbar degenerative changes. Electronically signed by: Marquis Kaur DO 07/18/2018 10:49 PM CDT Due to temporary technical issues with the PACS/Fluency reporting system, reports are being signed by the in house radiologist as a courtesy to ensure prompt reporting. The interpreting radiologist is f keyonaly responsible for the content of the report.
--- NOTE | 2018-07-21 11:25 | RAD REPORT ---
EXAM DESCRIPTION: CT - Head C Spine Mpr Wo Con - 07/18/2018 11:00 pm CLINICAL HISTORY: 68 years old and is Male; PAIN TECHNIQUE: Axial computed tomography images of the head/brain without intravenous contrast. Sagitt al and coronal reformatted images were created and reviewed. EXAM COMPLETED DATE AND APPROX. TIME: 07/18/2018 10:[address] exam was performed using one or more of the following dose reduction techniques: automated exposure control, adjustment of the mA and/or kV according to patient size, a nd/or use of iterative reconstruction technique. Coronal and sagittal reformatted images were creat ed and reviewed. COMPARISON: No relevant prior studies available. FINDINGS: Limitations: None. Brain: There is age related cortical atrophy and periventricular white matter hypodensity most c onsistent with chronic small ischemic change. No acute infarct, hemorrhage or mass. Ventricles: Unremarkable. No ventriculomegaly. Bones/joints: Unremarkable. No acute fracture. Soft tissues: Unremarkable. Vasculature: There is bilateral vertebral and carotid artery calcification. Sinuses: There is moderate chronic left posterior ethmoid air cell mucosal thickening. There is mild left maxillary sinus thickening and fluid. Mastoid air cells: Unremarkable as visualized. No mastoid effusion. A single impression for all exams can be found at the end of this report EXAM DESCRIPTION: CT Cervical Spine Without Intravenous Contrast CLINICAL HISTORY: 68 years old and is Male; PAIN TECHNIQUE: Axial computed tomography images of the cervical spine without intravenous contrast. Sa gittal and coronal reformatted images were created and reviewed. This CT exam was performed using o ne or more of the following dose reduction techniques: automated exposure control, adjustment of th e mA and/or kV according to patient size, and/or use of iterative reconstruction technique. Coronal and sagittal reformatted images were created and reviewed. COMPARISON: No relevant prior studies available. FINDINGS: Vertebrae: There is multilevel moderate spondylosis and mild facet arthrosis. There is an old fracture of the right mandible. There is an old right C7 transverse process fracture. No acute fracture noted. Discs/spinal canal/neural foramina: There is multilevel mild disc space narrowing. Multilevel canal stenosis present secondary to prominent posterior osteophytes. Soft tissues: Unremarkable. Sinuses: There is acute left maxillary. There is left posterior ethmoid air cell mucosal thicken ing. A single impression for all exams can be found at the end of this report IMPRESSION: CT Head Without Intravenous Contrast: 1. No acute change in the brain. 2. Sinusitis as above. If there has been facial trauma, an occult facial fracture cannot be exclude d. CT Cervical Spine Without Intravenous Contrast: Multilevel degenerative changes. No acute fracture or subluxation. Electronically signed by: Sylvie Moreira MD 07/18/2018 10:50 PM CDT Due to temporary technical issues with the PACS/Fluency reporting system, reports are being signed by the in house radiologist as a courtesy to ensure prompt reporting. The interpreting radiologist is f ully responsible for the content of the report.
--- NOTE | 2018-07-21 11:33 | P.PN ---
Subjective Date of Service: 07/21/18 Primary Care Provider: Dr. Dobbins Chief Complaint: fall, fever, right hip soft tissue mass Subjective: No C/O voiced Patient seen and examined at bedside. 2 sons at bedside. Chart reviewed and case discussed with nursing staff. No acute events noted overnight. Pain well controlled at this time without any movement. Review of Systems 10-point ROS is otherwise unremarkable Physical Examination - Vital Signs Temperature: 96.7 F Blood Pressure: 180/77 Pulse: 65 Respirations: 16 Pulse Ox (%): 96 - Physical Exam General: Alert, In no apparent distress, Oriented x3 HEENT: Atraumatic, PERRLA, EOMI Neck: Supple, JVD not distended Respiratory: Clear to auscultation bilaterally, Normal air movement Cardiovascular: Regular rate/rhythm, Normal S1 S2 Gastrointestinal: Normal bowel sounds, No tenderness Musculoskeletal: No tenderness Integumentary: No rashes Neurological: Normal speech, Normal tone, Normal affect Lymphatics: No axilla or inguinal lymphadenopathy - Studies Medications List Reviewed: Yes Assessment And Plan - Plan Right hip pain CT showing mass to the right acetabulum and iliac region Weight loss, decreased mobility Orthopedic recommends MRI with and without contrast to further evaluate the mass , pending. Will hold off on CT guided biopsy until MRI reviewed. The patient may require transfer to higher level of care center to further evaluate his condition as this may include biopsy and surgery. Will discuss with orthopedics in detail today to confirm plan of care. Continue with pain control medication. Fall precautions in place. UTI: Continue antibiotic therapy. Urine and blood culture obtained, pending Mild dehydration with mild acute renal injury: Resolved Continue IV fluids. Monitor lab closely. Will replace electrolytes as needed. Diabetes mellitus type 2: A1c very well controlled. Continue with sliding scale. Hypertension: Continue home medication Hyperlipidemia: Continue home medication BPH: Continue home medication Anemia with iron and B12 deficiency: Will start iron and B12 supplementation. Will monitor hemoglobin closely. Obesity, BMI 31.6: Will address lifestyle modification education. DVT prophylaxis: Lovenox GI prophylaxis: None Diet: 1800 Diabetic Disposition: Pending symptomatic improvement, MRI. May need to be transferred for higher level of care
--- NOTE | 2018-07-21 13:38 | RAD REPORT ---
EXAM DESCRIPTION: MRI - Pelvis W/Wo Cont - 07/21/2018 12:46 pm CLINICAL HISTORY: Bone destructive mass right pelvis COMPARISON: CT pelvis July 18 TECHNIQUE: Multiplanar image of the pelvis performed using T1 weighted, T1 stir, T2 weighted and T1 post-contrast fat saturation sequencing. A 20 milliliter MultiHance contrast volume was utilized. FINDINGS: In the anterolateral right ilium there is a 10 cm AP x 7 cm TR by 13 cm CC macrolobulated mass. This is the correlate to the CT finding. Septations are present throughout this mass. The mass is homogeneous and slightly hyperintense to muscle on T1 weighted imaging. Hyperintense signal is pre sent on the T1 STIR sequencing. Mass is also relatively isointense to slightly hyperintense to muscle on T2 weighted sequencing. Mass extends from the anterior superior most margin of the ileum inferior ly to the roof of the acetabulum. No izabel destruction of the right acetabular roof. There is a large area of bone destruction present. Bone destruction reaches the roof of the acetabulum but does not d isrupt the articular cortex. No joint effusion. No signal abnormality of the right femoral head. A thin rim of hyperintense T2 sig nal surrounds the mass. Heterogeneous moderate enhancement of the masses seen on the postcontrast lyndsay ging. The mass displaces but does not clearly invade the pelvic musculature along the inner and outer table of the right ilium. Enlarged lobulated and heterogeneous prostate gland is present. No invasion of the prostate gland int o the bladder, pelvic sidewall or anterior rectal wall. There is mass effect on the base of the bladd er. No ascites or pelvic floor lymphadenopathy. Imaged bowel loops show no suspicious finding. Left h emipelvis shows no suspicious finding. No left hip joint abnormality. IMPRESSION: Large 13 centimeter lobulated bone destructive mass of the right ilium as detailed. Plasmacytoma would be a primary consideration. Metastatic disease or lymphoma are possible as well. S oft tissue sarcoma is possible. Mass is amenable to percutaneous biopsy.
[2018-07-21] MEDS: ENOXAPARIN 40 MG/0.4 ML SQ SCH (17:37)
[2018-07-21] MEDS: TAMSULOSIN 0.4 MG SR CAP PO SCH (21:16)
[2018-07-21] MEDS: ROSUVASTATIN 10 MG TAB PO SCH (21:16)
[2018-07-22 06:06] LABS: Absolute Lymphocytes (CBC) 1.5 K/uL (0.7-4.9); Absolute Monocytes 0.5 K/uL (0.1-1.3); Absolute Neutrophil 1.6 K/uL (1.8-8.0); Basophils % 0.3 % (0-1.3); Eosinophils % 2.4 % (0-4.4); Hematocrit 30.9 % (39.6-49.0); Lymphocytes % 41.3 % (15.3-44.8); MPV 7.8 fL (7.6-11.3); Magnesium 1.9 mg/dL (1.8-2.4); Monocytes % 13.1 % (3.3-12.3); Potassium 3.8 mmol/L (3.5-5.1); RBC Red Blood Cell Count 3.68 M/uL (4.33-5.43)
[2018-07-22] MEDS ORDERED: POTASSIUM 25 MEQ EFFERV TAB PO ONE (06:14)
[2018-07-22] MEDS ORDERED: POTASSIUM CL SA 10 MEQ TAB PO ONE (06:15)
[2018-07-22] MEDS: INSULIN -REGULAR HUMAN 50 UNIT/0.5 ML ML SQ SCH ×3 (07:30→16:30)
[2018-07-22] MEDS: NA CHLORIDE 0.9% 1,000 ML IV SCH (09:29)
[2018-07-22] MEDS: CEFTRIAXONE/SWI 1gm 1 GM/10 ML SYR IV SCH (09:36)
[2018-07-22] MEDS: FERROUS SULFATE 325 MG TAB PO SCH (09:36)
[2018-07-22] MEDS: FAMOTIDINE 20 MG TAB PO SCH (09:36)
[2018-07-22] MEDS: METOPROLOL TAR 50 MG TAB PO SCH (09:36)
[2018-07-22] MEDS: DOCOSAHEXANOIC AC/EPA 1000 MG PO SCH (09:36)
[2018-07-22] MEDS: CYANOCOBALAMIN 1,000 MCG TAB PO SCH (09:36)
--- NOTE | 2018-07-22 12:35 | P.PN ---
Date of Service: 07/21/18 S: PATIENT PATIENT SEEN IN LATE AFTERNOON, ROOM CROWDED WITH FRIENDS AND FAMILY. PATIENT INDICATES HE HAS BEEN USING A WALKER WITH RIGHT HIP PAIN ONLY IF HE PUTS PRESSURE ON THE RIGHT FOOT. EMPHASIS WAS PLACED ON NON-WEIGHTBEARING TO AVOID PRESSURE THROUGH THE ACETABULUM. WHEN QUERIED ABOUT DEGREE OF PAIN, THE PATIENT ULTIMATELY INDICATED HIS PAIN IS SIMILAR TO THAT EXPERIENCED AT HOME PRIOR TO THE FALL. PAIN CHART VERIFIES THAT LONG HE IS AT REST HE HAS NO PAIN. O: AFEBRILE, VSS EXCEPT MILD HTN, HGB 10.1 DOWN FROM 10.4; WBC 3.9 UP FROM 3.4 ; PLT.122 UP FROM 114. NV EXAM INTACT RLE. GOOD STRENGTH WITH DORSIFLEXION AND PLANTARFLEXION ANKLE AND TOES. BRISK CAPILLARY REFILL. A: DISCUSSED MGMT WITH DR. ROSALES. MRI W/WO CONTRAST VERIFIED FINDINGS IN CT SCAN WITH MASS INVADING BONE ABOVE ACETABULAR CHONDRAL SURFACE. PATIENT CAUTIONED TO AVOID WEIGHTBEARING AND RISK OF FALLING. PATIENT IS CONSIDERED A HIGH RISK FOR FALLING HE CONTINUES TO HAVE SENSATIONS OF DIZZINESS THAT CAUSED HIS FALL THIS PAST WEEKEND. P: PT CONSULT WAS SUCCESSFUL IN TRAINING PATIENT WITH WALKER, NWB RLE. THERE IS NO NEED FOR SURGICAL INTERVENTION AT THE PRESENT TIME. DR. ROSALES EXPLORING OPTIONS FOR PERCUTANEOUS BIOPSY AND STAGING OF LESION. DR. EVANS INDICATED OPTION FOR NEEDLE BIOPSY AVAILABLE.
--- NOTE | 2018-07-22 12:49 | P.PN ---
Subjective Date of Service: 07/22/18 Primary Care Provider: Dr. Dobbins Chief Complaint: fall, fever, right hip soft tissue mass Subjective: No C/O voiced Patient seen and examined at bedside. 2 sons at bedside. Chart reviewed and case discussed with nursing staff. No acute events noted overnight. Pain well controlled at this time without any movement. Review of Systems 10-point ROS is otherwise unremarkable Physical Examination - Vital Signs Temperature: 97.3 F Blood Pressure: 186/79 Pulse: 60 Respirations: 20 Pulse Ox (%): 97 - Physical Exam General: Alert, In no apparent distress HEENT: Atraumatic, PERRLA, EOMI Neck: Supple, JVD not distended Respiratory: Clear to auscultation bilaterally, Normal air movement Cardiovascular: Regular rate/rhythm, Normal S1 S2 Gastrointestinal: Normal bowel sounds, No tenderness Musculoskeletal: No tenderness Integumentary: No rashes Neurological: Normal speech, Normal tone, Normal affect Lymphatics: No axilla or inguinal lymphadenopathy - Studies Laboratory Data (last 24 hrs) 07/22/18 05:38: Sodium 141, Potassium 3.8, BUN 19 H, Creatinine 1.00, Glucose 146 H, Magnesium 1.9 07/22/18 05:38: WBC 3.7 L, Hgb 10.2 L, Hct 30.9 L, Plt Count 140 L Microbiology Data (last 24 hrs): 07/19/18 05:25 Clean Catch Urine Savery Count - Final <10,000 CFU/ML. 07/19/18 05:25 Clean Catch Urine - Final Medications List Reviewed: Yes Assessment And Plan - Plan Right hip pain CT showing mass to the right acetabulum and iliac region Weight loss, decreased mobility MRI with similar mass in right acetabulum and iliac region. Patient will require a CT guided biopsy though may be beneficial for patient to be transferred to a tertiary center where he may have access to orthopedic oncology and surgery. Will initiate transfer to [facility] as patient/family would also like that. Continue with pain control medication. Fall precautions in place. UTI: Continue antibiotic therapy. Urine and blood culture obtained, pending Mild dehydration with mild acute renal injury: Resolved Continue IV fluids. Monitor lab closely. Will replace electrolytes as needed. Diabetes mellitus type 2: A1c very well controlled. Continue with sliding scale. Hypertension: Continue home medication Hyperlipidemia: Continue home medication BPH: Continue home medication Anemia with iron and B12 deficiency: Will start iron and B12 supplementation. Will monitor hemoglobin closely. Obesity, BMI 31.6: Will address lifestyle modification education. DVT prophylaxis: Lovenox GI prophylaxis: None Diet: 1800 Diabetic Disposition: Transfer to [facility] initiated for higher level of care.
[2018-07-22 17:37] VITALS: BP 154/62; TEMP 98.9
== END 2018-07-22 19:55 | disposition short-term general hospital (02) | DRG 392 ==
LOC: ER 21:42 → ERHOLD 07-19 01:01 → 4TH 07-19 01:27 → OBSVTOIN 07-22 12:30
PROVIDERS: ADMIT Internal Medicine; ATTEND Internal Medicine
DX: R19.09 Other intra-abdominal and pelvic swelling, mass and lump (principal); N17.9 Acute kidney failure, unspecified; N39.0 Urinary tract infection, site not specified; I10 Essential (primary) hypertension; E11.9 Type 2 diabetes mellitus without complications; Z79.4 Long term (current) use of insulin; I25.10 Atherosclerotic heart disease of native coronary artery without angina pectoris; Z95.5 Presence of coronary angioplasty implant and graft; Z87.891 Personal history of nicotine dependence; R50.9 Fever, unspecified; E86.0 Dehydration; N40.1 Benign prostatic hyperplasia with lower urinary tract symptoms; D50.9 Iron deficiency anemia, unspecified; E66.9 Obesity, unspecified; Z68.31 Body mass index [BMI] 31.0-31.9, adult; M25.551 Pain in right hip; W01.10XA Fall on same level from slipping, tripping and stumbling with subsequent striking against unspecified object, initial encounter; Y93.89 Activity, other specified; Y92.013 Bedroom of single-family (private) house as the place of occurrence of the external cause; R63.4 Abnormal weight loss; M54.31 Sciatica, right side; G47.30 Sleep apnea, unspecified; Z91.81 History of falling
CPT/HCPCS: 36415; 70450; 72125; 72192; 72197; 80048; 81003; 81015; 82550; 82553; 82607; 82728; 82962; 83036; 83540; 83735; 84439; 84443; 84466; 84484; 85025; 86850; 86900; 86901; 87040; 87086; 87088; 87804; 93005; 96374; 96375; 97110; 97116; 97163; 97530; 99285; A9577; G0378; J0696; J1650; J2405; J3420; J3475; J7030

== ENCOUNTER 2018-08-24 12:15 | Inpatient (IN) | payer OTHER ==
--- NOTE | 2018-08-25 15:37 | R.PREADM ---
SCREENING DATE AND TIME 08/25/2018 14:36 (CDT) ANTICIPATED REHAB ADMISSION DATE 08/27/2018 REFERRING FACILITY [facility] REFERRAL DATE AND TIME 08/25/2018 14:36 (CDT) ACUTE ADMIT DATE 08/21/2018 Previous Rehabilitation(s): No. 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 Gonzalez Fish M.D. MR# [id number] NAME JOHN PAUL SYKES ADDRESS [address] [facility] PH[address] [facility] [id number] DATE OF 1950 AGE 68 SSN# [id number] GENDER male MARITAL STATUS RACE white ADMIT FROM 02 - [facility] PRE-HOSPITAL LIVING SETTING 01 - Home (private home/apt. board/care, assisted living, alf, transitional living) HOME TYPE AND DETAILS Type of home: single family house # of levels in the residence: 1 # of steps to enter the residence: 0 # of steps within the residence: 0 PRE-HOSPITAL LIVING WITH Alone FAMILY SUPPORT Yes PRIMARY FAMILY CONTACT NAME Dilan Sykes PRIMARY FAMILY CONTACT PHONE PRIMARY FAMILY CONTACT ALT. PHONE PHONE PRIMARY FAMILY CONTACT ON ADM.? no IS PRIMARY FAMILY CONTACT AUTH. REP.? no 1ST EMERGENCY CONTACT Dilan Sykes 1ST CONTACT PHONE 1ST CONTACT ALT. PHONE PHONE 1ST CONTACT ON ADM. no IS 1ST CONTACT AUTH. REP.? no PHONE 2ND CONTACT ON ADM.? no PATIENT EMPLOYMENT STATUS Retired (for age) PATIENT EMPLOYER No Employer PAYOR INFORMATION: 1ST PAYOR NAME MEDICARE 1ST PAYOR PHONE [phone] 1ST PAYOR INJURY/ILLNESS DUE TO ACCIDENT? No ANOTHER DEMOCRAT RESPONSIBLE? No PRIMARY REHAB/ACUTE DIAGNOSIS: Metastatic Renal Cell Carcinoma ONSET DATE 08/21/2018 REHAB IMPAIRMENT CATEGORY (JALEN): 20 Miscellaneous (Misc) does NOT meet 60% rule PRIMARY DIAGNOSIS-RELATED SURGERIES: Left Laparoscopic Radical Nephrectomy on 08/21/2018 COMORBID REHAB/ACUTE DIAGNOSES: - N/A CAD HTN ROSARIO INTERVENTIONS: - CAD 02 sats Activity management Medications VS RISK FOR COMPLICATIONS: - CAD CHF Cardiac Arrest ID Pain SUMMARY OF ACUTE HOSPITALIZATION: Pt. is a 68 yo Right-handed white male. On 08/21/2018 he was admitted to [facility] with diagnosis Metastatic Renal Cell C arcinoma. His impairment category is Debility 16 - Debility (16). Pre-morbidly, Pt. was independent/mod-I in Self-Care, Sphincter Control, Transfers Control, Locomotio n, Communication, and Social Cognition; and he had good Sphincter Control. Currently, he has deficits of Self-Care, Transfers Control, Locomotion, Endurance, Balance, and Safet y Awareness. Pt. is now referred to [facility] for acute in-patient rehabilitation in order to maximize patient's functional independence in activities of daily living, strength, ROM, and mobi lity. Patient has realistic goal of being discharged at assistance level 6-Elvis to reside at Home with Fam loli/Relatives. PAST MEDICAL HISTORY CAD HTN ROSARIO PAST SURGICAL HISTORY: BIOPSY/EXCISION, SOFT TISSUE HIP Colonoscopy ORIF, ACETABULUM MEDICATION ALLERGIES: No Known Drug Allergies (NKDA) ENVIRONMENTAL ALLERGIES: None Known - Substance Allergies None Known - Other Allergies None Known CODE STATUS: Full code WEIGHT/HEIGHT/BMI: WEIGHT 218 lbs HEIGHT 6' 0" BMI 29.6 DIET: - Diet Type Regular - Diet - Solid Texture Regular - Diet - Liquid Texture Regular - Tube Feed N/A REVIEW OF SYSTEMS: - Gen Alert and awake Lying in bed No apparent distress Oriented to: person, time, and place - Vital Signs Temperature: 97.2 F SBP/DBP: 166/72 Pulse: 63 Resp: 18 Vital signs stable, afebrile - CVS RRR VITAL SIGNS Temperature: 97.2 F SBP/DBP: 166/72 Pulse: 63 Resp: 18 Vital signs stable, afebrile CURRENT SPHINCTER CONTROL: Pre-hospital bladder status: continent # of bladder accidents in the last 7 days prior to screenin Pre-hospital bowel status: continent # of bowel accidents in the last 7 days prior to screenin Last Bowel Movement Date: DETAILED CURRENT FUNCTIONAL STATUS: - Bladder accident frequency: Ind - No accidents in the past 7 days - Bowel accident frequency: Ind - No accidents in the past 7 days - Walking score based on distance walked: 3(>=150ft) - Wheelchair score based on distance traveled: 0(N/A) FUNCTIONAL STATUS: - Self-Care A. Eating Ind sup B. Grooming Ind sup C. Bathing Ind sup D. Dressing - Upper Ind sup E. Dressing - Lower Ind sup F. Toileting Ind sup - Sphincter Control G: Bladder control Ind Ind H: Bowel control Ind Ind - Transfers Control I. Bed/Chair/Wheelchair Ind Liban J. Toilet Ind Liban K. Tub/Shower Ind ADNO - Locomotion L. Walk/Wheelchair (B) Ind Liban M. Stairs Ind ADNO - Communication N. Comprehension (B) Ind Ind O. Expression (B) Ind Ind - Social Cognition P. Social Interaction Ind Ind Q. Problem Solving Ind Ind R. Memory Ind Ind - Endurance Fair - Balance Fair - Safety Awareness Fair CURRENT FUNC. DEFICITS: Self-Care, Transfers Control, Locomotion, Endurance, Balance, and Safety Awareness THERAPY NOTES FROM ACUTE CARE: Attached. SPECIAL NEEDS: - Safety Concerns Skin breakdown precautions needed due to skin breakdown risk PATIENT NEEDS ACTIVE AND ONGOING THERAPEUTIC INTERVENTION OF MULTIPLE THERAPY DISCIPLINES, INCLUDING: - Occupational Therapy Evaluate and Treat. - Physical Therapy Evaluate and Treat. PATIENT NEEDS CLOSE MEDICAL SUPERVISION BY A REHABILITATION PHYSICIAN FOR: Bowel and Bladder Management Coordination of Treatment Team Medical and Co-Morbidity Management PATIENT REQUIRES 24X7 REHAB NURSING FOR MEDICAL AND FUNCTIONAL MGT. OF THE FOLLOWING DEFICITS: ADL's Ambulation Bowel and Bladder Management Communication Disease Management Medication Management Patient/Family Education Providing Safe Environment Transfers Pain Management DVT Management PATIENT REQUIRES INTENSIVE, COORDINATED INTERDISCIPLINARY APPROACH TO REHAB: Arranging Home Equipment/Services Discharge Planning Family Intervention/Training Wire Stitcher Operator/Case Management PATIENT REHAB POTENTIAL: Expected level of measurable improvement will be of a practical value to patient's functional capacit y or adaptations to impairments Has a viable Discharge Plan Medically appropriate; condition is sufficiently stable to participate in intensive rehab program Patient is able and expected to receive 3 hours of individualized therapy daily on at least 5 of ever y 7 days Patient's prognosis for significant practical improvement within a reasonable period of time appears Good DISCHARGE PLAN: - Estimated Length of Stay (days) 13. - Consensus on plan Discharge plan has been discussed with primary caregiver. Patient/Family is in agreement with the madi n. Primary caregiver is in agreement with the plan. - Patient/Family Goals Return home with assistance. - Planned Living Setting Upon Discharge Home, to live with Family/Relatives. Transitional Living. RECOMMENDED CARE LEVEL: IRF RECOMMENDATION DETAILS: Recommended Admission to Comprehensive Rehabilitation Program to Increase Functional [place] SCREENER'S COMPLETENESS CONFIRMATION: - Screening Confirmation The patient data collection on this preadmission screening form is finished PHYSICIANS REVIEW AND ADMISSION DETERMINATION Admit - Based on my review of the Pre-Admission Screening results, in my medical judgment and experie nce, I concur with the findings and recommend admission to [facility], as this patient requires an IRF level of care. SIGNATURE PANEL: Clinical Liaison - [electronically] signed by Milvia Martins on 08/25/2018 at 15:25 (CDT) Physician Reviewer - [electronically] signed by Dr. Gonzalez Fish M.D. on 08/25/2018 at 15:37 (CDT )
--- OUTSIDE RECORDS SUMMARY | 2018-08-25 18:45 | XMS REPORT | Clinical Summary ---
:1950 Author Organization [facility] Address [address] [place] [id number] Care Team Providers Name Role Phone Juma [...] mcg each nostril. (0.1 %) nasal spray lisinopril Take 10 mg by 0 03/28/2018 Active (PRINIVIL,ZESTRIL) mouth. 10 mg tablet metFORMIN TAKE 1 TABLET BY 0 09/12/2017 Active (GLUCOPHAGE) 1,000 MOUTH TWICE mg tablet DAILY metoprolol TK 1 T PO BID 3 04/26/2018 Active tartrate (LOPRESSOR) 50 mg tablet rosuvastatin Take 1 tablet 90 tablet 3 05/05/2018 Active (CRESTOR) 20 MG (20 mg total) by 0 tabletIndications: mouth daily. Coronary artery disease involving [place] coronary artery of [place] heart without angina pectoris, Abnormal EKG folic acid Take 1 mg by 0 07/29/2018 Active (FOLVITE) 1 MG mouth. 0 tablet amLODIPine Take 5 mg by 0 07/29/2018 Active (NORVASC) 5 mg mouth. 0 tablet hydrOXYzine TAKE 1 TABLET BY 0 07/01/2017 Discontinued (ATARAX) 25 MG MOUTH EVERY 6 9 tablet HOURS NEEDED FOR ITCHING LEVEMIR FLEXTOUCH INJECT 50 UNITS 0 04/30/2018 Discontinued U-100 INSULN 100 SC BID 9 unit/mL (3 mL) insulin pen insulin detemir ADMINISTER 50 0 04/30/2018 Discontinued U-100 (LEVEMIR UNITS UNDER THE 9 U-100 INSULIN) 100 SKIN TWICE DAILY unit/mL injection omega-3 acid ethyl TK 4 CS PO QD 0 03/28/2018 Discontinued esters (LOVAZA) 1 9 gram capsule pen needle, USE TO INJECT 0 09/02/2017 Discontinued diabetic (BD UNDER THE SKIN 9 ULTRA-FINE SHORT TWICE DAILY PEN NEEDLE) 31 gauge x 5/16" needle pen needle, Use every night 0 06/06/2016 Discontinued diabetic 29 gauge at bedtime 9 x 1/2" needle pravastatin Take 80 mg by 0 09/12/2017 Discontinued (PRAVACHOL) 80 MG mouth. 9 tablet insulin USE DIRECTED 0 09/02/2017 Discontinued syringe-needle 9 U-100 1 mL 31 gauge x 5/16 syringe insulin U UTD 1 04/15/2018 Discontinued syringe-needle 9 U-100 1 mL 31 gauge x 5/16 syringe Active Problems Problem Noted Date Preop cardiovascular exam 08/12/2018 Metastatic renal cell carcinoma 08/05/2018 Pathologic fracture of right acetabulum 08/05/2018 Mass of soft tissue of right lower extremity 07/23/2018 Pain of right hip joint 07/22/2018 Coronary artery disease involving [place] heart with angina pectoris 05/10/2018 Abnormal EKG 05/10/2018 SOB (shortness of breath) 05/10/2018 Benign essential hypertension 06/03/2012 Diabetes mellitus type 2, uncontrolled, without complications 06/03/2012 Overview: Overview: ICD10 Diagnosis Term Voice Professor Utility HLD (hyperlipidemia) 06/03/2012 Encounters Date Type Specialty Care Team Description 08/11/2018 Office Visit Cardiology Patrick Zarate MD Preop cardiovascular exam (Primary Dx); Coronary artery disease involving [place] heart with angina pectoris, unspecified vessel or lesion type (HCC) 07/22/2018 Intake Access N/A 05/05/2018 Office Visit Cardiology Patrick Zarate MD SOB (shortness of breath) (Primary Dx); Benign essential hypertension; Coronary artery disease involving [place] coronary artery of [place] heart without angina pectoris; Abnormal EKG after 08/24/2017 Family History Medical History Relation Name Comments Coronary artery disease Brother Coronary artery disease Mother Relation Name Status Comments Brother Mother Social History Tobacco Use Types Packs/Day Years Used Date Former Smoker Cigarettes 2 20 Quit: 05/05/1987 Smokeless Tobacco: Never Used Alcohol Use Drinks/Week oz/Week Comments Yes Alcohol [...] Vital Sign Reading Time Taken Blood Pressure 166/77 08/11/2018 4:27 PM CDT Pulse 72 08/11/2018 4:27 PM CDT Temperature - - Respiratory Rate 16 05/05/2018 1:55 PM CLIPPING MARKER Oxygen Saturation - - Inhaled Oxygen Concentration - - Weight 104 kg (229 lb) 08/11/2018 4:23 PM CDT Height 182.9 cm (6') 08/11/2018 4:23 PM CDT Body Mass Index 31.06 08/11/2018 4:23 PM CDT Plan of Treatment Date Type Specialty Care Team Description 11/04/2018 Office Visit Cardiology Patrick Zarate MD [address] [id number] Health Maintenance Due Date Last Done Comments DIABETIC RETINAL EYE EXAM 1950 DIABETIC FOOT EXAM 02/24/1958 COLON CANCER SCREENING 02/24/1998 SHINGLES VACCINES (#1) 02/24/1998 65+ PNEUMOCOCCAL VACCINE (1 of 2 - PCV13) 02/24/2013 PNEUMOCOCCAL POLYSACCHARIDE VACCINE AGE 65 AND OVER 02/24/2013 INFLUENZA VACCINE 11/27/2018 Procedures Procedure Name Priority Date/Time Associated Diagnosis Comments ECG 12-LEAD Routine 08/11/2018 4:30 PM Preop cardiovascular Results for this CDT exam procedure are in the results section. ECG 12-LEAD Routine 05/05/2018 1:57 PM Benign essential Results for this CLIPPING MARKER hypertension procedure are in the results section. after 08/24/2017 Results ECG 12 lead (08/11/2018 4:30 PM CDT)Only the most recent of2 resultswithin the time period is included. Ventricular rate 69 [facility] Atrial rate 69 [facility] WA interval 174 [facility] QRSD interval 110 [facility] QT interval 402 [facility] QTC interval 430 [facility] P axis 1 53 [facility] QRS axis 1 22 [facility] T wave axis 49 [facility] EKG impression Normal sinus rhythm-Incomplete right bundle branch block- Borderline ECG-In automated comparison with ECG of 05-MAY-2018 13:57,- Incomplete right bundle branch block has replaced Right bundle branch block [facility] - Narrative Performed At Performing Organization Address City/State/Zipcode Phone Number [facility] [address] [place] [address] after 08/24/2017 Insurance Payer Benefit Plan / Group Subscriber ID Type Phone Address MEDICARE MEDICARE PART A AND B xxxxxxxxxxx Medicare [place], [place] Advance Directives Patient has advance care planning documents on file. For more information, please contact:Cruz Kumar[address] [place] [address]
--- OUTSIDE RECORDS SUMMARY | 2018-08-25 18:46 | XMS REPORT | Clinical Summary ---
:1950 Author Organization [facility] Address [address] [place] [address] Care Team Providers Name Role Phone Pcp, No Primary Care Provider Unavailable Allergies No Known Allergies Medications Medication Sig Dispensed Refills Start End Date Status Date rosuvastatin Take 20 mg by 0 Active (CRESTOR) 20 MG mouth daily. tablet tamsulosin Take 0.4 mg by 0 Active (FLOMAX) 0.4 mg mouth daily. Cap 24 hr capsule ipratropium Inhale 2 puffs by 0 Active (ATROVENT HFA) 17 mouth via inhaler mcg/actuation 3 (three) times inhaler daily. metoprolol Take 1 tablet (50 60 tablet 1 Active (LOPRESSOR) 50 MG mg total) by mouth 9 tablet 2 (two) times daily. amLODIPine Take 1 tablet (5 30 tablet 0 07/29/19 Active (NORVASC) 5 MG mg total) by mouth 9 20 tablet daily. folic acid Take 1 tablet (1 90 tablet 3 07/29/19 Active (FOLVITE) 1 MG mg total) by mouth 9 20 tablet daily. polyethylene Take 17 g by mouth 14 each 0 Active glycol (GLYCOLAX) daily as needed. 9 17 gram packet enoxaparin Inject 0.4 mLs (40 12 mL 0 09/19/19 Active (LOVENOX) 40 mg total) 9 19 mg/0.4 mL Syrg subcutaneously daily for 30 days. HYDROcodone-acetam Take 1 tablet by 20 tablet 0 Active inophen (NORCO mouth every 6 9 5-325) 5-325 mg (six) hours as per tablet needed for Pain. Max Daily Amount: 4 tablets docusate sodium Take 1 capsule 10 capsule 0 09/05/19 Active (COLACE) 100 MG (100 mg total) by 9 19 capsule mouth 2 (two) times daily as needed for Constipation for up to 10 days. traMADol (ULTRAM) Take 2 tablets 30 tablet 0 09/05/19 Active 50 mg tablet (100 mg total) by 9 mouth every 6 (six) hours as needed for up to 10 days. Max Daily Amount: 400 mg metoprolol Take 100 mg by 0 07/29/19 Discontinued (LOPRESSOR) 100 MG mouth 2 (two) 19 tablet times daily. omega-3 acid ethyl Take 2 g by mouth 0 08/13/19 Discontinued esters (LOVAZA) 1 2 (two) times 19 gram capsule daily. insulin detemir Inject 50 Units 0 07/29/19 Discontinued U-100 (LEVEMIR) subcutaneously 2 19 100 unit/mL (two) times daily. injection lisinopril Take 1 tablet (40 30 tablet 0 08/26/19 Discontinued (PRINIVIL,ZESTRIL) mg total) by mouth 9 40 MG tablet daily for 30 days. polyethylene Take 17 g by mouth 14 each 0 08/19/19 Discontinued glycol (GLYCOLAX) daily for 14 days. 9 19 17 gram packet HYDROcodone-acetam Take 1 tablet by 30 tablet 0 08/19/19 Discontinued inophen (NORCO mouth every 6 9 19 5-325) 5-325 mg (six) hours as per tablet needed for Pain. Max Daily Amount: 4 tablets metFORMIN Take 1,000 mg by 0 08/13/19 Discontinued (GLUCOPHAGE) 1000 mouth 2 (two) 19 MG tablet times daily with breakfast and dinner. metoclopramide HCl Take 10 mg by 0 08/13/19 Discontinued (REGLAN) 10 MG mouth 2 (two) 19 tablet times daily. omeprazole Take 40 mg by 0 08/13/19 Discontinued (PRILOSEC) 40 MG mouth daily. 19 capsule traMADol (ULTRAM) Take 2 tablets 30 tablet 0 08/26/19 Discontinued 50 mg tablet (100 mg total) by 9 19 mouth every 6 (six) hours as needed for up to 10 days. 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 08/12/2018 Metastatic renal cell carcinoma 08/05/2018 Pathologic fracture of right acetabulum 08/05/2018 Pain of right hip joint 07/22/2018 Resolved Problems Problem Noted Date Resolved Date Renal cell carcinoma 08/12/2018 08/13/2018 Mass of soft tissue of right lower extremity 07/23/2018 08/13/2018 Encounters Date Type Specialty Care Team Description 08/21/2018 Anesthesia Event Josse York MD 08/21/2018 Surgery Enedelia, VAHID,NEPHRECT MD CLAUDETTE Bennett 08/21/2018 - Hospital Encounter General Internal Enedelia, 08/25/2018 Medicine MD Donald 08/20/2018 Hospital Encounter Pre-Admission Resource, Oqmt Testing Preadmit Phone 08/13/2018 Anesthesia Event Dominga Green CRNA 08/13/2018 Surgery Kingsley Short ORIF,ACETABULUM MD Alma 08/13/2018 Travel 08/12/2018 - Hospital Encounter General Internal Kingsley Short Type 2 diabetes mellitus without complication, without long-term current use of insulin (HCC); 08/18/2018 Medicine MD Alma Essential hypertension; Rosalina Boone 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); MD Lizzy ROSARIO (obstructive sleep apnea); Pain of right hip joint; Pelvic mass; Pathological fracture of right acetabulum, initial encounter; Anemia, chronic disease 08/09/2018 Orders Only Kingsley Short MD 08/07/2018 Hospital Encounter Pre-Admission Resource, Oqmt Testing Preadmit Phone 08/07/2018 Orders Only Kingsley Short MD 07/23/2018 Travel 07/22/2018 - Hospital Encounter General Internal Rosalina Boone Mass of soft tissue of right lower extremity; 07/28/2018 Medicine MD Lizzy Pain of right hip joint; Alma, Yeimy Kidney mass MD Shorty Al Sonal Muralinath, MD Agrawal, Neeraj, MD after 08/24/2017 Family History Medical History Relation Name Comments Diabetes Brother Relation Name Status Comments Brother Social History Tobacco Use Types Packs/Day Years Used Date Former Smoker Quit: 1987 Smokeless Tobacco: Never Used Alcohol Use Drinks/Week oz/Week Comments Yes 6 Cans of beer 3.6 Sex Assigned at Date Recorded Not on file Job Start Date Occupation Industry Not on file Not on file Not on file Travel History Travel Start Travel End No recent travel history available. Last Filed Vital Signs Vital Sign Reading Time Taken Blood Pressure 135/63 08/25/2018 3:59 PM CDT Pulse 66 08/25/2018 3:59 PM CDT Temperature 36.1 C (97 F) 08/25/2018 3:59 PM CDT Respiratory Rate 20 08/25/2018 3:59 PM CDT Oxygen Saturation 98% 08/25/2018 3:59 PM CDT Inhaled Oxygen Concentration 28% 08/22/2018 4:04 AM CDT Weight 98.9 kg (218 lb) 08/21/2018 9:50 PM CDT Height 182.9 cm (6') 08/21/2018 9:50 PM CDT Body Mass Index 29.57 08/21/2018 9:50 PM CDT Plan of Treatment Not on file Implants Implanted Type Area Depilatory Painter Device Shelf Model / Identifier Expiration Serial / Date Lot Scr Gemini Asnis3 Ft [id number] - [id number] Fracture/Fix Right: OMAIRA:OMAIRA 10/26/2022 [id number] / Implanted: Qty: 1 on 08/13/2018 by Kingsley Short MD [facility] Hip ORTHOPAEDICS / [id number] Cement Bone Smplx Tobra 40 [id number] - [id number] IMPLANTS Right: OMAIRA:OMAIRA 12/28/2019 [id number] / Implanted: Qty: 1 on 08/13/2018 by Kingsley Short MD Hip ORTHOPAEDICS / [id number] Cannulated Screw, Fully Threaded Right: OMAIRA 07/27/2022 [id number] / Implanted: Qty: 1 on 08/13/2018 by Kingsley Short MD Hip / [id number] Procedures Procedure Name Priority Date/Time Associated Comments Diagnosis CBC W/PLT COUNT & Routine 08/25/2018 5:52 Results for this AUTO DIFFERENTIAL AM CDT procedure are in the results section. CBC W/PLT COUNT & Routine 08/25/2018 5:52 Results for this AUTO DIFFERENTIAL AM CDT procedure are in the results section. BASIC METABOLIC PANEL Routine 08/25/2018 5:52 Results for this (7) AM CDT procedure are in the results section. CBC W/PLT COUNT & Routine 08/24/2018 6:36 Results for this AUTO DIFFERENTIAL AM CDT procedure are in the results section. CBC W/PLT COUNT & Routine 08/24/2018 6:36 Results for this AUTO DIFFERENTIAL AM CDT procedure are in the results section. BASIC METABOLIC PANEL Routine 08/24/2018 6:36 Results for this (7) AM CDT procedure are in the results section. CBC W/PLT COUNT & Routine 08/23/2018 4:27 Results for this AUTO DIFFERENTIAL AM CDT procedure are in the results section. CBC W/PLT COUNT & Routine 08/23/2018 4:27 Results for this AUTO DIFFERENTIAL AM CDT procedure are in the results section. BASIC METABOLIC PANEL Routine 08/23/2018 4:27 Results for this (7) AM CDT procedure are in the results section. TRANSFUSION SERVICE 08/22/2018 6:01 REPORT - SCAN PM CDT POCT-GLUCOSE METER Routine 08/22/2018 11:19 Results for this AM CDT procedure are in the results section. POCT-GLUCOSE METER Routine 08/22/2018 8:49 Results for this AM CDT procedure are in the results section. CBC W/PLT COUNT & Routine 08/22/2018 4:58 Results for this AUTO DIFFERENTIAL AM CDT procedure are in the results section. CBC W/PLT COUNT & Routine 08/22/2018 4:58 Results for this AUTO DIFFERENTIAL AM CDT procedure are in the results section. BASIC METABOLIC PANEL Routine 08/22/2018 4:58 Results for this (7) AM CDT procedure are in the results section. HEMOGLOBIN AND Routine 08/21/2018 9:15 Results for this HEMATOCRIT PM CDT procedure are in the results section. BASIC METABOLIC PANEL Routine 08/21/2018 9:15 Results for this (7) PM CDT procedure are in the results section. POCT-GLUCOSE METER Routine 08/21/2018 8:54 Results for this PM CDT procedure are in the results section. TISSUE EXAM AP Routine 08/21/2018 7:02 Results for this PM CDT procedure are in the results section. LAPAROSCOPY,NEPHRECTO 08/21/2018 1:30 Kidney mass MY PM CDT POCT-GLUCOSE METER Routine 08/21/2018 12:35 Results for this PM CDT procedure are in the results section. TYPE AND SCREEN, Routine 08/21/2018 12:28 Results for this AUTOMATED PM CDT procedure are in the results section. POCT-GLUCOSE METER Routine 08/18/2018 2:15 Results for this PM CDT procedure are in the results section. POCT-GLUCOSE METER Routine 08/18/2018 8:50 Results for this AM CDT procedure are in the results section. POCT-GLUCOSE METER Routine 08/17/2018 8:56 Results for this PM CDT procedure are in the results section. POCT-GLUCOSE METER Routine 08/17/2018 6:48 Results for this PM CDT procedure are in the results section. TRANSFUSION SERVICE 08/17/2018 6:00 REPORT - SCAN PM CDT POCT-GLUCOSE METER Routine 08/17/2018 1:21 Results for this PM CDT procedure are in the results section. POCT-GLUCOSE METER Routine 08/17/2018 8:50 Results for this AM CDT procedure are in the results section. PREPARE LEUKO-REDUCED Routine 08/16/2018 11:55 Results for this RBC PM CDT procedure are in the results section. POCT-GLUCOSE METER Routine 08/16/2018 10:27 Results for this PM CDT procedure are in the results section. TRANSFUSION SERVICE 08/16/2018 6:00 REPORT - SCAN PM CDT POCT-GLUCOSE METER Routine 08/16/2018 1:14 Results for this PM CDT procedure are in the results section. POCT-GLUCOSE METER Routine 08/16/2018 8:40 Results for this AM CDT procedure are in the results section. CBC W/PLT COUNT & Routine 08/16/2018 6:09 Results for this AUTO DIFFERENTIAL AM CDT procedure are in the results section. CBC W/PLT COUNT & Routine 08/16/2018 6:09 Results for this AUTO DIFFERENTIAL AM CDT procedure are in the results section. TRANSFUSE Routine 08/16/2018 3:26 LEUKO-REDUCED RED AM CDT BLOOD CELLS TRANSFUSION SERVICE 08/15/2018 6:01 REPORT - SCAN PM CDT POCT-GLUCOSE METER Routine 08/15/2018 11:06 Results for this AM CDT procedure are in the results section. CBC W/PLT COUNT & Routine 08/15/2018 4:16 Results for this AUTO DIFFERENTIAL AM CDT procedure are in the results section. CBC W/PLT COUNT & Routine 08/15/2018 4:16 Results for this AUTO DIFFERENTIAL AM CDT procedure are in the results section. MAGNESIUM Routine 08/15/2018 4:16 Results for this AM CDT procedure are in the results section. PHOSPHORUS Routine 08/15/2018 4:16 Results for this AM CDT procedure are in the results section. HEPATIC FUNCTION Routine 08/15/2018 4:16 Results for this PANEL AM CDT procedure are in the results section. BASIC METABOLIC PANEL Routine 08/15/2018 4:16 Results for this (7) AM CDT procedure are in the results section. PREPARE RBC STAT 08/14/2018 11:55 Results for this PM CDT procedure are in the results section. POCT-GLUCOSE METER Routine 08/14/2018 9:00 Results for this PM CDT procedure are in the results section. TRANSFUSION SERVICE 08/14/2018 6:01 REPORT - SCAN PM CDT POCT-GLUCOSE METER Routine 08/14/2018 12:41 Results for this PM CDT procedure are in the results section. POCT-GLUCOSE METER Routine 08/14/2018 8:27 Results for this AM CDT procedure are in the results section. CBC W/PLT COUNT & Routine 08/14/2018 5:04 Results for this AUTO DIFFERENTIAL AM CDT procedure are in the results section. CBC W/PLT COUNT & Routine 08/14/2018 5:04 Results for this AUTO DIFFERENTIAL AM CDT procedure are in the results section. MAGNESIUM Routine 08/14/2018 5:04 Results for this AM CDT procedure are in the results section. PHOSPHORUS Routine 08/14/2018 5:04 Results for this AM CDT procedure are in the results section. HEPATIC FUNCTION Routine 08/14/2018 5:04 Results for this PANEL AM CDT procedure are in the results section. BASIC METABOLIC PANEL Routine 08/14/2018 5:04 Results for this (7) AM CDT procedure are in the results section. POCT-GLUCOSE METER Routine 08/13/2018 10:24 Results for this PM CDT procedure are in the results section. XR PELVIS 1 OR 2 Routine 08/13/2018 6:52 Results for this VIEWS PM CDT procedure are in the results section. POCT-GLUCOSE METER Routine 08/13/2018 6:08 Results for this PM CDT procedure are in the results section. HEMOGLOBIN AND STAT 08/13/2018 5:45 Results for this HEMATOCRIT PM CDT procedure are in the results section. TRANSFUSE Routine 08/13/2018 4:30 LEUKO-REDUCED RED PM CDT BLOOD CELLS FL LITIGATION ATTORNEY IN OR 30 Routine 08/13/2018 4:15 Results for this MINUTE INCREMENTS PM CDT procedure are in the results section. TRANSFUSE Routine 08/13/2018 4:11 LEUKO-REDUCED RED PM CDT BLOOD CELLS ABORH, MANUAL STAT 08/13/2018 1:09 Results for this PM CDT procedure are in the results section. PROCEDURE W/ C-ARM 08/13/2018 12:45 Renal cell PM CDT carcinoma, unspecified laterality (HCC) Insufficiency fracture of pelvis, initial encounter Case Notes 2 HRS Special Needs (C-ARM, OMAIRA CANNULATED SCREWS) BIOPSY/EXCISION,SOFT TISSUE HIP 08/13/2018 12:45 PM Renal cell carcinoma, CDT unspecified laterality (HCC) Insufficiency fracture of pelvis, initial encounter Case Notes 2 HRS Special Needs (C-ARM, OMAIRA CANNULATED SCREWS) ORIF,ACETABULUM 08/13/2018 12:45 PM CDT Renal cell carcinoma, unspecified laterality (HCC) Insufficiency fracture of pelvis, initial encounter Case Notes 2 HRS Special Needs (C-ARM, OMAIRA CANNULATED SCREWS) TYPE AND SCREEN, AUTOMATED STAT 08/13/2018 12:34 PM CDT CBC W/PLT COUNT & AUTO Routine 08/13/2018 3:02 AM CDT Results for this DIFFERENTIAL procedure are in the results section. PROTHROMBIN TIME/INR Routine 08/13/2018 3:02 AM CDT CBC W/PLT COUNT & AUTO Routine 08/13/2018 3:02 AM CDT Results for this DIFFERENTIAL procedure are in the results section. LIPID PANEL Routine 08/13/2018 3:02 AM CDT MAGNESIUM Routine 08/13/2018 3:02 AM CDT PHOSPHORUS Routine 08/13/2018 3:02 AM CDT HEPATIC FUNCTION PANEL Routine 08/13/2018 3:02 AM CDT BASIC METABOLIC PANEL (7) Routine 08/13/2018 3:02 AM CDT IR EMBOLIZATION BLEED Routine 08/12/2018 5:40 PM CDT CBC W/PLT COUNT & AUTO Routine 08/12/2018 11:08 AM CDT Results for this DIFFERENTIAL procedure are in the results section. BASIC METABOLIC PANEL (7) Routine 08/12/2018 11:08 AM CDT APTT Routine 08/12/2018 11:08 AM CDT PROTHROMBIN TIME/INR Routine 08/12/2018 11:08 AM CDT CBC W/PLT COUNT & AUTO Routine 08/12/2018 11:08 AM CDT Results for this DIFFERENTIAL procedure are in the results section. XR KNEE LEFT 1 OR 2 VIEWS Routine 07/28/2018 2:48 PM CDT POCT-GLUCOSE METER Routine 07/28/2018 1:09 PM CDT US RENAL BIOPSY Routine 07/28/2018 11:40 AM CDT TISSUE EXAM AP Routine 07/28/2018 11:22 AM CDT POCT-GLUCOSE METER Routine 07/28/2018 8:34 AM CDT CBC W/PLT COUNT & AUTO Routine 07/28/2018 4:39 AM CDT Results for this DIFFERENTIAL procedure are in the results section. PT/APTT Routine 07/28/2018 4:39 AM CDT BASIC METABOLIC PANEL (7) Routine 07/28/2018 4:39 AM CDT CBC W/PLT COUNT & AUTO Routine 07/28/2018 4:39 AM CDT Results for this DIFFERENTIAL procedure are in the results section. POCT-GLUCOSE METER Routine 07/27/2018 10:13 PM CDT POCT-GLUCOSE METER Routine 07/27/2018 6:42 PM CDT NM BONE SCAN WHOLE BODY Routine 07/27/2018 6:05 PM CDT POCT-GLUCOSE METER Routine 07/27/2018 1:54 PM CDT POCT-GLUCOSE METER Routine 07/27/2018 9:11 AM CDT POCT-GLUCOSE METER Routine 07/26/2018 8:56 PM CDT POCT-GLUCOSE METER Routine 07/26/2018 6:31 PM CDT POCT-GLUCOSE METER Routine 07/26/2018 6:03 AM CDT HEPATIC FUNCTION PANEL Routine 07/26/2018 5:16 AM CDT POCT-GLUCOSE METER Routine 07/25/2018 9:58 PM CDT ECHOCARDIOGRAM REPORT - 07/25/2018 9:23 PM CDT SCAN 2D ECHO W/ DOPPLER Routine 07/25/2018 8:10 AM CDT Results for this (CW/PW/COLOR) procedure are in the results section. CBC W/PLT COUNT & AUTO Routine 07/25/2018 5:17 AM CDT Results for this DIFFERENTIAL procedure are in the results section. VITAMIN B12 AND FOLATE Routine 07/25/2018 5:17 AM CDT IRON, TIBC, % SAT. (WITHOUT Routine 07/25/2018 5:17 AM CDT Results for this FERRITIN) procedure are in the results section. FERRITIN Routine 07/25/2018 5:17 AM CDT HEMOGLOBIN A1C Routine 07/25/2018 5:17 AM CDT CBC W/PLT COUNT & AUTO Routine 07/25/2018 5:17 AM CDT Results for this DIFFERENTIAL procedure are in the results section. BASIC METABOLIC PANEL (7) Routine 07/25/2018 5:17 AM CDT POCT-GLUCOSE METER Routine 07/24/2018 9:[address] ABDOMEN/PELVIS WITH IV Routine 07/24/2018 8:51 PM CDT Results for this CONTRAST procedure are in the results section. CT CHEST WITH IV CONTRAST Routine 07/24/2018 8:51 PM CDT URINALYSIS W/ REFLEX URINE Routine 07/24/2018 4:44 PM CDT Results for this CULTURE procedure are in the results section. POCT-GLUCOSE METER Routine 07/24/2018 1:06 PM CDT POCT-GLUCOSE METER Routine 07/24/2018 9:49 AM CDT CBC W/PLT COUNT & AUTO Routine 07/24/2018 4:51 AM CDT Results for this DIFFERENTIAL procedure are in the results section. CBC W/PLT COUNT & AUTO Routine 07/24/2018 4:51 AM CDT Results for this DIFFERENTIAL procedure are in the results section. BASIC METABOLIC PANEL (7) Routine 07/24/2018 4:51 AM CDT POCT-GLUCOSE METER Routine 07/23/2018 9:40 PM CDT POCT-GLUCOSE METER Routine 07/23/2018 12:22 PM CDT CBC W/PLT COUNT & AUTO Routine 07/23/2018 3:55 AM CDT Results for this DIFFERENTIAL procedure are in the results section. CBC W/PLT COUNT & AUTO Routine 07/23/2018 3:55 AM CDT Results for this DIFFERENTIAL procedure are in the results section. BASIC METABOLIC PANEL (7) Routine 07/23/2018 3:55 AM CDT PROTHROMBIN TIME/INR Routine 07/23/2018 3:55 AM CDT POCT-GLUCOSE METER Routine 07/23/2018 12:07 AM CDT after 08/24/2017 Results CBC with platelet count + automated diff (08/25/2018 5:52 AM CDT)Only the most recent of13 resultswithin the time period is included. WBC 4.4 3.5 - 10.5 K/L [facility] RBC 3.00 (L) 4.63 - 6.08 M/L [facility] Hemoglobin 8.4 (L) 13.7 - 17.5 GM/DL [facility] Hematocrit 26.7 (L) 40.1 - 51.0 % [facility] MCV 89.0 79.0 - 92.2 fL [facility] MCH 28.0 25.7 - 32.2 pg [facility] MCHC 31.5 (L) 32.3 - 36.5 GM/DL [facility] RDW 14.0 11.6 - 14.4 % [facility] Platelets 199 150 - 450 K/CU MM [facility] MPV 9.0 (L) 9.4 - 12.4 fL [facility] nRBC 0 0 - 0 /100 WBC [facility] % Neutros 49 % [facility] % Lymphs 41 % [facility] % Monos 8 % [facility] % Eos 2 % [facility] % Baso 0 % [facility] # Neutros 2.18 1.78 - 5.38 K/L [facility] # Lymphs 1.82 1.32 - 3.57 K/L [facility] # Monos 0.34 0.30 - 0.82 K/L [facility] # Eos 0.08 0.04 - 0.54 K/L [facility] # Baso 0.01 0.01 - 0.08 K/L [facility] Immature Granulocytes-Relative 0 0 - 1 % [facility] Specimen Blood Performing Organization Address City/State/Zipcode Phone Number [facility] [address] [place] [address] CENTER Basic Metabolic Panel - In AM (08/25/2018 5:52 AM CDT)Only the most recent of13 resultswithin the time period is included. Sodium 141 136 - 145 meq/L [facility] Potassium 4.5 3.5 - 5.1 meq/L [facility] Chloride 107 98 - 107 meq/L [facility] CO2 27 22 - 29 meq/L [facility] BUN 20 7 - 21 mg/dL [facility] Creatinine 1.34 (H) 0.57 - 1.25 mg/dL [facility] Glucose 104 70 - 105 mg/dL [facility] Calcium 9.2 8.4 - 10.2 mg/dL [facility] EGFR 53Comment: ESTIMATED GFR IS mL/min/1.73 sq m [facility] NOT ACCURATE CREATININE [facility] CLEARANCE IN PREDICTING GLOMERULAR FILTRATION RATE. ESTIMATED GFR IS NOT APPLICABLE FOR DIALYSIS PATIENTS. Specimen Blood Performing Organization Address City/State/[place] [address] [phone] [facility] TRANSFUSION SERVICE REPORT - SCAN (08/22/2018 6:01 PM CDT)Only the most recent of5 resultswithin the time period is included. Narrative Performed At POC-Glucose meter (08/22/2018 11:19 AM CDT)Only the most recent of35 resultswithin the time period is included. POC-Glucose Meter 110Comment: TESTED AT 70 - 110 mg/dL [facility] [address] [place] [id number] Specimen Blood Performing Organization Address City/State/Zipcode Phone Number [address] [address] [facility] Hemoglobin and hematocrit (08/21/2018 9:15 PM CDT)Only the most recent of2 resultswithin the time period is included. Hemoglobin 8.8 (L) 13.7 - 17.5 GM/DL [facility] Hematocrit 28.4 (L) 40.1 - 51.0 % [facility] Specimen Blood Performing Organization Address City/State/Zipcode Phone Number [facility] [address] [place] [address] [phone] CENTER Tissue Exam (08/21/2018 7:02 PM CDT)Only the most recent of2 resultswithin the time period is included. Case Report Surgical Pathology Report Case: [id number] [facility] Authorizing Provider:Donald Mcdaniels MD Collected: 08/21/2018 1902 [facility] Ordering Location: 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 [facility] THE TUMOR IS CONFINED TO THE KIDNEY. LYMPHOVASCULAR INVASION IS NOT IDENTIFIED. TWO LYMPH NODES, NEGATIVE FOR CARCINOMA (0/2). SURGICAL MARGINS ARE NEGATIVE FOR TUMOR. PORTION OF ADRENAL GLAND, NEGATIVE FOR TUMOR. AJCC CLASSIFICATION [id number]. SEE SYNOPTIC REPORT. Signing Pathologist Direct Phone Line: [phone] SYNOPTIC REPORT KIDNEY: Nephrectomy(Kidney Res - All Specimens) [facility] SPECIMEN Procedure:Radical nephrectomy Specimen Laterality:Left TUMOR Tumor Site:Middle Histologic Type:Clear cell renal cell carcinoma Histologic Grade (WHO / ISUP Grade):G2: Nucleoli conspicuous and eosinophilic at 400x magnification, visible but not prominent at 100x magnification Tumor Size:Greatest dimension in Centimeters (cm): 6.5 Centimeters (cm) Additional Dimension in Centimeters (cm):4.5 Centimeters (cm ) Additional Dimension in Centimeters (cm):4 Centimeters (cm) Tumor Focality:Unifocal Tumor Extent: Tumor Extension:Tumor limited to kidney Accessory Findings: Sarcomatoid Features:Not identified Rhabdoid Features:Not identified Tumor Necrosis:Present Percentage of Necrosis:20 % Lymphovascular Invasion:Not identified MARGINS Margins:Uninvolved by invasive carcinoma LYMPH NODES Number of Lymph Nodes Involved:0 Number of Lymph Nodes Examined:2 PATHOLOGIC STAGE CLASSIFICATION (pTNM, AJCC 8th Edition) Primary Tumor (pT):pT1b Regional Lymph Nodes (pN):pN0 CPT Code(s) [address]458 [facility] CLINICAL HISTORY Kidney mass [facility] SPECIMEN SOURCE Left kidney [facility] GROSS DESCRIPTION The specimen is received in a formalin-filled container labeled with the patient's information and labeled "left kidney" and consists of a 1,110 gm left radical nephrectomy measuring 27 x 10 x 6 cm with [facility] ureter measuring 4 cm in length x 0.3 cm in diameter. There is an attached portion of adrenal gland attached to the hilar area measuring 1.5 x 1 x 0.3 cm. It is not grossly involved by tumor.The kidney [facility] is sectioned showing a multinodular, hemorrhagic, couch, stacy-yellow mass grossly involving the mid to lower poles, 6.5 to 4.5 x 4 cm grossly bulging the capsule but grossly confined within it. The mas s grossly pushing up against the renal sinus but does not involve it grossly. The pelvis and ureter are grossly unremarkable with a couch-pink mucosa. The hilum yields two red lymph nodes measuring up to 1 cm. The remaining fat is sectioned yielding no lymph nodes. Section code: A1, ureteral margin; A2, vascular margins en face; A3, one lymph node bisected; A4, one lymph node; A5, adrenal gland; A6, A7, mass with renal sinus; A8, A9, tumor and Gerota's fascia; A10 , A11, tumor and kidney parenchyma; A12, grossly uninvolved kidney parenchyma superior pole. CG/ew MICROSCOPIC DESCRIPTION PERFORMED. [facility] Specimen Tissue Performing Organization Address City/State/Zipcode Phone Number [facility] [address] [place] [address] CENTER Type and screen, automated (08/21/2018 12:28 PM CDT)Only the most recent of2 resultswithin the time period is included. ABO/RH AUTOMATED (BEAKER) O POSITIVE [facility] Ab Scrn NEGATIVE [facility] Specimen Blood Performing Organization Address [facility] Cent[facility]ode Phone Number [address] [address] Prepare Leuko-Red RBC (08/16/2018 11:55 PM CDT) CROSSMATCH COMPATIBLE SAFETRACE TX Unit ABO O Pos SAFETRACE TX UNIT NUMBER [id number] [place]AFET[place]ACE [place] Status TX_TIMEINCHART [place] Blood Bank Product RED BLOOD CELLS [place]AF[place]ACE [place] PRODUCT CODE [id number] [place] Specimen Other Performing Organization Address [facility] Phone Number [place] Transfuse Leuko-Red RBC (08/16/2018 3:26 AM CDT)Only the most recent of4 resultswithin the time period is included.Phosphorus (08/15/2018 4:16 AM CDT) Only the most recent of3 resultswithin the time period is included. Phosphorus 2.7 2.3 - 4.7 mg/dL [facility] Specimen Blood Performing Organization Address [facility] Center[facility]il Phone Number [address] [address] CENTER Magnesium (08/15/2018 4:16 AM CDT)Only the most recent of3 resultswithin the time period is included. Magnesium 1.6 1.6 - 2.6 mg/dL [facility] Specimen Blood Performing Organization Address City/[facility] Centercode Phone Number [address] [address] [phone] CENTER Hepatic function panel (08/15/2018 4:16 AM CDT)Only the most recent of4 resultswithin the time period is included. Protein, Total 6.4 6.0 - 8.3 gm/dL [facility] Albumin 3.4 (L) 3.5 - 5.0 g/dL [facility] Total Bilirubin 0.5 0.2 - 1.2 mg/dL [facility] Bilirubin, Direct 0.3 0.1 - 0.5 mg/dL [facility] Alkaline Phosphatase 76 40 - 150 U/L [facility] AST 19 5 - 34 U/L [facility] ALT 6 6 - 55 U/L [facility] Specimen Blood Performing Organization Address City/[facility] Centercode Phone Number [facility] [address] [place] [address] CENTER Prepare RBC (08/14/2018 11:55 PM CDT) CROSSMATCH COMPATIBLE SAFETRACE TX Unit ABO O Pos SAFETRACE TX UNIT NUMBER [id number] SAFETRACE TX Status TX_TIMEINCHART SAFETRACE [place] Blood Bank Product RED BLOOD CELLS SAFETRACE TX PRODUCT CODE [id number] SAFETRACE TX CROSSMATCH COMPATIBLE SAFETRACE TX Unit ABO O Pos SAFETRACE TX UNIT NUMBER [id number] SAFETRACE TX Status TX_TIMEINCHART SAFETRACE [place] Blood Bank Product RED BLOOD CELLS SAFETRACE [place] PRODUCT CODE [id number] SAFETRACE [place] Performing Organization Address City/[facility] Phone Number SAFETRACE [place] XR pelvis 1 or 2 views (08/13/2018 6:52 PM CDT) Specimen Narrative Performed At FINAL REPORT GE RIS Pelvis, 08/13/2018 There are two screws extending transversely in the supra-acetabular portion of the right iliac bone. The more superior screw extends to overlie the sacroiliac joint. High-grade density material has beenplaced into the lateral aspect of the right iliac bone, apparently into the previous defect. There is a drainage bulb connected to a catheter that extends into the high density area.. Signed: Rika Escobar MD Report Verified Date/Time:08/13/2018 20:11:08 Reading Location: [facility] [id number] Consult Reading Room Procedure Note Interface, External Ris In - 08/13/2018 8:13 PM CDT FINAL REPORT Pelvis, 08/13/2018 There are two screws extending transversely in the supra-acetabular portion of the right iliac bone. The more superior screw extends to overlie the sacroiliac joint. High-grade density material has been placed into the lateral aspect of the right iliac bone, apparently into the previous defect. There is a drainage bulb connected to a catheter that extends into the high density area.. Signed: Rika Escobar MD Report Verified Date/Time: 08/13/2018 20:11:08 Reading Location: [address] Consult Reading Room Performing Organization Address [facility] Center[facility] Phone Number [facility] [place] radio board operator in or 30 minute increments (08/13/2018 4:15 PM CDT) Specimen Narrative Performed At FINAL REPORT [facility] Operative right hip, 08/13/2018 Eight images are submitted of the right hip in various projections displaying initial placement of of contrast into the superior acetabular region followed by placement of two screws extending transversely into the acetabulum. 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 Signed: Rika Escobar MD Report Verified Date/Time:08/13/2018 17:33:20 Reading Location: [facility] C013 Consult Reading Room Procedure Note Interface, External Ris In - 08/13/2018 5:35 PM CDT FINAL REPORT Operative right hip, 08/13/2018 Eight images are submitted of the right hip in various projections displaying initial placement of of contrast into the superior acetabular region followed by placement of two screws extending transversely into the acetabulum. 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 Signed: Rika Escobar MD Report Verified Date/Time: 08/13/2018 17:33:20 Reading Location: [facility] C013 Consult Reading Room Performing Organization Address City/[facility] Centercode Phone Number ce BOLANOS (08/13/2018 1:09 PM CDT) ABO Grouping O [facility] Rh Factor POS [facility] Specimen Blood Performing Organization Address City/[facility]/Zipcode Phone Number [facility] [address] [place] [phone] Prothrombin time/INR (08/13/2018 3:02 AM CDT)Only the most recent of3 resultswithin the time period is included. Protime 13.7 11.7 - 14.7 seconds [facility] INR 1.0 <=5.9 [facility] Specimen Blood Narrative Performed At RECOMMENDED COUMADIN/WARFARIN INR THERAPY [facility] RANGES STANDARD DOSE: 2.0 - 3.0 Includes: PROPHYLAXIS for venous thrombosis, systemic embolization; TREATMENT for venous thrombosis and/or pulmonary embolus. HIGH RISK: Target INR is 2.5-3.5 for patients with mechanical heart valves. Performing Organization Address [facility] Centercoil Phone Number [address] [address] CENTER Lipid panel (08/13/2018 3:02 AM CDT) Triglycerides 133 mg/dL [facility] Cholesterol 108 mg/dL [facility] HDL 25 mg/dL [facility] LDL Calculated 56 mg/dL [facility] Specimen Blood Narrative Performed At Triglyceride Reference Range: [facility] Low Risk <150 [id number] High Risk 200-499 Very High Risk>=500 Cholesterol Reference Range: Low Risk <200 [id number] High Risk>240 HDL Cholesterol Reference Range: Low Risk >=60 High Risk <40 LDL Cholesterol Reference Range: Optimal<100 Near [id number] [id number] Hcmb302-980 Very High >=190 Performing Organization Address City/[facility]/Zipcode Phone Number [address] [address] CENTER IR Embolization Bleed (08/12/2018 5:40 PM CDT) Specimen Narrative Performed At FINAL REPORT exoro system [facility] Right iliac wing lesion preoperative arterial embolization. History: 68-year-old male with metastatic RCC Modality: Sonography and fluoroscopy. Sedation: Moderate sedation was administered. 4 mg of Versed [id number] mcg of fentanyl IV was used for moderate sedation monitored under my direction. Total intra-service time of sedation [id number]. The patient's vital signs were monitored throughout the procedure and recorded in the patient's medical record by the nurse. Data Management:Austin Frost MD. Call Center Rn:None. Approach: Left common femoral artery Estimated blood loss:< 5 cc. Specimen: None. Fluoroscopy Time: 27.2 min. Reference Air Kerma (Ka, r): 1068 mGy. Technique: Informed written consent was obtained. Discussion of risks, benefits, and alternatives were made with the patient. The patient expressed understanding and agreed to proceed.A universal timeout was performed prior to starting the procedure.All elements maximal sterile barrier technique was utilized for this procedure, including utilization of sterile scrub solution for skin prep, a large sterile sheet to cover the areas of the patient that were not prepped, and hand hygiene, mask, head covering, and sterile gown for performing radiologist and scrub technologist. Initial ultrasound images demonstrate patent left common femoral artery. Using ultrasound guidance, following acquisition of permanent images, the left common femoral artery was accessed using a 21-gauge micropuncture needle. A 0.018 inch wire was advanced into the abdominal aorta. The needle was exchanged for a 4 Gabonese micropuncture sheath. The micropuncture sheath was exchanged over a 0.035 Bentson wire for a 5 Gabonese x 10 cm vascular sheath. Using a 5 Gabonese contra catheter and 0.035 angled Glidewire, the right common iliac artery was accessed via an up and over technique. A 4 Gabonese glide catheter was advanced into the left common iliac artery and a DSA run was performed. Using a 2.8 Gabonese microcatheter and 0.016 inch microwire, the circumflex femoral artery arising off the external iliac artery was cannulated. Repeat DSA was performed. Selective embolization was performed via three branches arising off the circumflex femoral artery supplying the hypervascular lesion with Gelfoam slurry until stagnant flow achieved. Next, the microcatheter was advanced into the right circumflex iliac artery and repeat DSA was performed. A branch arising off the circumflex iliac artery supplying the hypervascular lesion was embolized with Gelfoam slurry until stagnant flow achieved. The microcatheter was removed. Postembolization DSA from the right common iliac artery was performed. Contrast was injected via the left femoral sheath. The arteriotomy was closed using a 5 Gabonese Myxn closure device. A sterile dressing was applied. The patient tolerated the procedure without immediate complication. FINDINGS: 1. Right common iliac arteriography demonstrates large, significantly hypervascular right iliac lesion with recruitment of numerous vessels from the circumflex femoral, circumflex iliac common and common iliac arteries. Additionally, prominent arteriovenous shunting was noted precluding use of small particles. 2. Successful Gelfoam embolization of the hypervascular right iliac lesion via multiple branches arising off the circumflex femoral and iliac arteries as detailed above. 3. Post embolization arteriography from the right common iliac artery demonstrates significant reduction of hypervascularity within the large right iliac lesion. 4. Left common femoral artery injection demonstrates patent left common femoral artery and puncture amenable for closure device. Impression: Technically successful pelvic arteriography and arterial embolization of right iliac lesion resulting in significant reduction in hypervascularity as detailed above. Signed: Austin Frost MD Report Verified Date/Time:08/15/2018 15:04:06 Reading Location: [place] [address] Angio Body Reading Room Procedure Note Interface, External Ris In - 08/15/2018 3:06 PM CDT FINAL REPORT Right iliac wing lesion preoperative arterial embolization. History: 68-year-old male with metastatic RCC Modality: Sonography and fluoroscopy. Sedation: Moderate sedation was administered. 4 mg of Versed and 200 mcg of fentanyl IV was used for moderate sedation monitored under my direction. Total intra-service time of sedation was 90 minutes. The patient's vital signs were monitored throughout the procedure and recorded in the patient's medical record by the nurse. Data Management: Austin Frost MD. Call Center Rn: None. Approach: Left common femoral artery Estimated blood loss: < 5 cc. Specimen: None. Fluoroscopy Time: 27.2 min. Reference Air Kerma (Ka, r): 1068 mGy. Technique: Informed written consent was obtained. Discussion of risks, benefits, and alternatives were made with the patient. The patient expressed understanding and agreed to proceed. A universal timeout was performed prior to starting the procedure. All elements maximal sterile barrier technique was utilized for this procedure, including utilization of sterile scrub solution for skin prep, a large sterile sheet to cover the areas of the patient that were not prepped, and hand hygiene, mask, head covering, and sterile gown for performing radiologist and scrub technologist. Initial ultrasound images demonstrate patent left common femoral artery. Using ultrasound guidance, following acquisition of permanent images, the left common femoral artery was accessed using a 21-gauge micropuncture needle. A 0.018 inch wire was advanced into the abdominal aorta. The needle was exchanged for a 4 Gabonese micropuncture sheath. The micropuncture sheath was exchanged over a 0.035 Bentson wire for a 5 Gabonese x 10 cm vascular sheath. Using a 5 Gabonese contra catheter and 0.035 angled Glidewire, the right common iliac artery was accessed via an up and over technique. A 4 Gabonese glide catheter was advanced into the left common iliac artery and a DSA run was performed. Using a 2.8 Gabonese microcatheter and 0.016 inch microwire, the circumflex femoral artery arising off the external iliac artery was cannulated. Repeat DSA was performed. Selective embolization was performed via three branches arising off the circumflex femoral artery supplying the hypervascular lesion with Gelfoam slurry until stagnant flow achieved. Next, the microcatheter was advanced into the right circumflex iliac artery and repeat DSA was performed. A branch arising off the circumflex iliac artery supplying the hypervascular lesion was embolized with Gelfoam slurry until stagnant flow achieved. The microcatheter was removed. Postembolization DSA from the right common iliac artery was performed. Contrast was injected via the left femoral sheath. The arteriotomy was closed using a 5 Gabonese Myxn closure device. A sterile dressing was applied. The patient tolerated the procedure without immediate complication. FINDINGS: 1. Right common iliac arteriography demonstrates large, significantly hypervascular right iliac lesion with recruitment of numerous vessels from the circumflex femoral, circumflex iliac common and common iliac arteries. Additionally, prominent arteriovenous shunting was noted precluding use of small particles. 2. Successful Gelfoam embolization of the hypervascular right iliac lesion via multiple branches arising off the circumflex femoral and iliac arteries as detailed above. 3. Post embolization arteriography from the right common iliac artery demonstrates significant reduction of hypervascularity within the large right iliac lesion. 4. Left common femoral artery injection demonstrates patent left common femoral artery and puncture amenable for closure device. Impression: Technically successful pelvic arteriography and arterial embolization of right iliac lesion resulting in significant reduction in hypervascularity as detailed above. Signed: Austin Frost MD Report Verified Date/Time: 08/15/2018 15:04:06 Reading Location: [facility] [id number] Angio Body Reading Room Performing Organization Address City/State/Zipcode Phone Number RIS aPTT (08/12/2018 11:08 AM CDT) PTT 30.9 22.5 - 36.0 seconds [facility] Specimen Blood Performing Organization Address City/State/Zipcode Phone Number [place] [phone] [place] [address] CENTER XR knee 1 or 2 views left (07/28/2018 2:48 PM CDT) Specimen Narrative Performed At FINAL REPORT GE RIS Left knee dated 07/29/2018 Comment: To views of the left knee were submitted for interpretation. No fracture, dislocation, or subluxation seen in the left knee. Mild degenerative changes in the left knee with marginal osteophyte formation. No joint or suprapatellar effusion present. Soft tissue of the left knee is unremarkable. Vascular calcification is seen in the distal left femoral and popliteal arteries. Incidental note is made of a fabella present. Impression: Mild degenerative changes in the left knee. Signed: Sherif Garza MD Report Verified Date/Time:07/29/2018 12:35:32 Reading Location: [facility] [id number] Consult Reading Room Procedure Note Interface, External Ris In - 07/29/2018 12:37 PM CDT FINAL REPORT Left knee dated 07/29/2018 Comment: To views of the left knee were submitted for interpretation. No fracture, dislocation, or subluxation seen in the left knee. Mild degenerative changes in the left knee with marginal osteophyte formation. No joint or suprapatellar effusion present. Soft tissue of the left knee is unremarkable. Vascular calcification is seen in the distal left femoral and popliteal arteries. Incidental note is made of a fabella present. Impression: Mild degenerative changes in the left knee. Signed: Sherif Garza MD Report Verified Date/Time: 07/29/2018 12:35:32 Reading Location: [facility] [id number] Consult Reading Room Performing Organization Address City/State/Zipcode Phone Number [facility] US renal biopsy (07/28/2018 11:40 AM CDT) Specimen Narrative Performed At FINAL REPORT [facility] INDICATION: 68-year-old male with left renal mass. Request for percutaneous image guided core biopsy. TECHNIQUE: Ultrasound-guided core biopsy of left renal mass. COMPARISON: CT July 24, 2018 FINDINGS: The procedure was explained to the patient and informed consent was signed. The patient was positioned supine oblique and preliminary images confirmed a window to the 8 cm mass of the left kidney demonstrated on recent CT exam. Timeout was performed. To sedate the patient Versed and Fentanyl were administered, as described below. The patient's skin was prepped and draped in standard sterile fashion. 2% lidocaine was used for local anesthesia. Using left posterolateral approach and ultrasound guidance, a 18-gauge biopsy device was advanced into the left renal mass. A core biopsy was obtained and placed in formalin. An additional four core biopsies were acquired in place in the same formalin. Core biopsies were sent to pathology. Post procedure image showed no hematoma. Patient tolerated procedure well and was transferred back to his hospital room. PROCEDURAL SEDATION: Procedural sedation was used with Versed 1.0 mg IV and Fentanyl 50 mcg IV administered. The department of radiology nurse was present at the time of procedure. Monitored cardiorespiratory function during conscious sedation was performed under the radiologist's supervision. Total monitoring time was approximately 45 minutes. IMPRESSION: Ultrasound-guided core biopsy of the left renal mass without complication. Signed: Tommy Chen MD Report Verified Date/Time:07/28/2018 11:52:52 Reading Location: [facility] B1 [id number] Ultrasound Reading Room Procedure Note Interface, External Ris In - 07/28/2018 11:55 AM CDT FINAL REPORT INDICATION: 68-year-old male with left renal mass. Request for percutaneous image guided core biopsy. TECHNIQUE: Ultrasound-guided core biopsy of left renal mass. COMPARISON: CT July 24, 2018 FINDINGS: The procedure was explained to the patient and informed consent was signed. The patient was positioned supine oblique and preliminary images confirmed a window to the 8 cm mass of the left kidney demonstrated on recent CT exam. Timeout was performed. To sedate the patient Versed and Fentanyl were administered, as described below. The patient's skin was prepped and draped in standard sterile fashion. 2% lidocaine was used for local anesthesia. Using left posterolateral approach and ultrasound guidance, a 18-gauge biopsy device was advanced into the left renal mass. A core biopsy was obtained and placed in formalin. An additional four core biopsies were acquired in place in the same formalin. Core biopsies were sent to pathology. Post procedure image showed no hematoma. Patient tolerated procedure well and was transferred back to his hospital room. PROCEDURAL SEDATION: Procedural sedation was used with Versed 1.0 mg IV and Fentanyl 50 mcg IV administered. The department of radiology nurse was present at the time of procedure. Monitored cardiorespiratory function during conscious sedation was performed under the radiologist's supervision. Total monitoring time was approximately 45 minutes. IMPRESSION: Ultrasound-guided core biopsy of the left renal mass without complication. Signed: Tommy Chen MD Report Verified Date/Time: 07/28/2018 11:52:52 Reading Location: [address] Ultrasound Reading Room Performing Organization Address City/State/Zipcode Phone Number [facility] PT/aPTT (07/28/2018 4:39 AM CDT) Protime 13.2 11.7 - 14.7 seconds [facility] INR 1.0 <=5.9 [facility] PTT 33.2 22.5 - 36.0 seconds [facility] Specimen Blood Narrative Performed At RECOMMENDED COUMADIN/WARFARIN INR THERAPY [facility] RANGES STANDARD DOSE: 2.0 - 3.0 Includes: PROPHYLAXIS for venous thrombosis, systemic embolization; TREATMENT for venous thrombosis and/or pulmonary embolus. HIGH RISK: Target INR is 2.5-3.5 for patients with mechanical heart valves. Performing Organization Address City/State/Zipcode Phone Number [facility] [address] [place] [address] [phone] CENTER [place] bone scan whole body (07/27/2018 6:05 PM CDT) Specimen Narrative Performed At FINAL REPORT [facility] PROCEDURE: BONE SCAN, WHOLE BODY CPT CODE:[id number] INDICATION:Renal masses pelvic mass concerning for renal cell carcinoma with metastases PROTOCOL:21.9 mCi of Tc-99m MDP was injected intravenously. Whole body and selected spot images were obtained approximately 3 hours later. FINDINGS: The delayed whole body bone scan spot images shows increased activity in the left mandible, the shoulders in particular the left knee and patella. There is irregular activity involving the right pelvis weighing and iliac crests. There is a focal rib lesion in the left third rib anteriorly IMPRESSION:Abnormal whole body bone scan. The exam is suspicious for metastatic disease involving the right pelvis and left knee. The facial finding is suspicious for periodontal disease the other findings are consistent with arthritic changes. Images for comparison/correlation were CT of the abdomen and pelvis from July 24, 2018. Signed: Dillon Prather MD Report Verified Date/Time:07/27/2018 20:29:10 Procedure Note Interface, External Ris In - 07/27/2018 8:31 PM CDT FINAL REPORT PROCEDURE: BONE SCAN, WHOLE BODY CPT CODE: [id number] INDICATION: Renal masses pelvic mass concerning for renal cell carcinoma with metastases PROTOCOL: 21.9 mCi of Tc-99m MDP was injected intravenously. Whole body and selected spot images were obtained approximately 3 hours later. FINDINGS: The delayed whole body bone scan spot images shows increased activity in the left mandible, the shoulders in particular the left knee and patella. There is irregular activity involving the right pelvis weighing and iliac crests. There is a focal rib lesion in the left third rib anteriorly IMPRESSION: Abnormal whole body bone scan. The exam is suspicious for metastatic disease involving the right pelvis and left knee. The facial finding is suspicious for periodontal disease the other findings are consistent with arthritic changes. Images for comparison/correlation were CT of the abdomen and pelvis from July 24, 2018. Signed: Dillon Prather MD Report Verified Date/Time: 07/27/2018 20:29:10 Performing Organization Address City/State/Zipcode Phone Number Compliance Control ECHOCARDIOGRAM REPORT - SCAN (07/25/2018 9:23 PM CDT) Narrative Performed At 2D Echo W/Doppler(CW/PW/Color) (07/25/2018 8:10 AM CDT) Ejection Fraction [facility] Specimen Narrative Performed At Transthoracic Echocardiography Report (TTE) [facility] Demographics Patient NameTRAJOHN PAUL PARRA Date of Study 07/25/2018 BRYAN GenderMale Visit [id number] RaceUnknown Number [id number] Number Date of 1950 Referring Physician Age 68 year(s) Electronic Engraver LETICIA Tafoya, RDCS,RVT,RDMS Forestry Consultant Laz SummersBSC Needs to be Pre Physician Read Stewart Evans MD Procedure Type of Study TTE procedure:2DECHO W DOPPLER(CW/PW/COLOR) (Routine) Indications:Shortness of breath. Clinical History DM, HTN, HLD, PELVIC TUMOR Height: 72 inches Weight: 104.33 kg (230 lbs) BSA: 2.26 m^2 BMI: 31.19 kg/m^2 HR: 59 bpm BP: 189/81 mmHg Summary 1. LV is mildly enlarged. Normal LV function. LVEF is 55-60% 2. Diastology: Grade 1 diastolic dysfunction 3. Normal RV size and function 4. No significant valvular heart disease 5. Trace TR. Unable to estimate PASP 6. No pericardial effusion. Previous Study No previous echo is available for comparison. Signature Findings Left Ventricle Mild concentric LV hypertrophy. All of the LV se gments contract normally . Estimated LVEF by qu alitative assessment is normal (55-60%) . Grade 1 di astolic dysfunction (impaired relaxation and lo w-normal LA pressure). The left ventricle is ch murali size (by vol index) is mildly enlarged (m elier - LVED 75-89ml/m2). Left AtriumLA size is severely enlarged (>48 ml/m2) . Right VentricleNormal right ventricle structure and function. Right Atrium Normal right atrium. Aortic Valve Mild AoV cusp thickening. Mitral Valve Normal MV structure. Mild mitral regurgitation. Tricuspid ValveA trace of tricuspid regurgitation. Un able to estimate peak systolic PA pressure; in adequate TR velocity signal. Pulmonic Valve Normal PV structure and function by limited views an d Doppler. AortaAortic root size (SInus of Valsalva diameter) is no rmal . PericardiumNo evidence of pericardial effusion. IVC/SVC/PA/PV/PleuralThe estimated RA pressure by IVC dynamics 5-10mmHg . Chambers/Structures Left Atrium LA Dimension: 4.17 cmLA Area: 31.97 cm^2 LA Volume: 118.17 ml LA Vol. Index: 52 ml/m^2 Left Ventricle LVIDd: 6 cm LV Septum Diastolic: 1.18 cm LV PW Diastolic: 1.29 cm LVEDV Padilla's:190.1 ml LVESV Padilla's:82.18 ml LVEF Padilla's: 56.8 %LVEDV I: 84 ml/m^2 LVESVI: 36 ml/m^2 LVOT Diameter: 2.44 cm Aorta Ao Root S of Susan.: 4.03 cm Doppler/Quantitative Measurements Mitral Valve MV Peak E-Wave: 0.85 m/sMV Peak A-Wave: 0.89 m/s E/A Ratio: 0.96 Peak Gradient: 2.91 mmHg Deceleration Time: 354.6 msec MV Carlitos. Peak: Tissue Doppler E' Lateral Velocity: 0.1 m/sA' Lateral Velocity: 0.13 m/s E/E': 8.95 LVOT Peak Velocity: 0.93 m/s Peak Gradient: 3.46 mmHg Mean Velocity: 0.56 m/s Mean Gradient: 1.57 mmHg LVOT Diameter: 2.44 cmLVOT VTI: 20.91 cm LVOT Area: 4.68 cm^2LVOT SV:97.72 ml LVOT CO: 5.77 l/min LVOT CI: 2.55 l/min/m^2 Procedure Note Interface, External Ris In - 07/25/2018 1:45 PM CDT Transthoracic Echocardiography Report (TTE) Demographics Patient Name JOHN PAUL SYKES Date of Study 07/25/2018 BRYAN Gender Male Visit Number [id number] Race Unknown Room Number [id number] Number Date of 1950 Referring Physician Age 68 year(s) Electronic Engraver LETICIA Tafoya, RDCS,RVT,RDMS Forestry Consultant Laz Cruz Interpreting BSC Needs to be Pre Physician Read Stewart Evans MD Procedure Type of Study TTE procedure:2DECHO W DOPPLER(CW/PW/COLOR) (Routine) Indications:Shortness of breath. Clinical History DM, HTN, HLD, PELVIC TUMOR Height: 72 inches Weight: 104.33 kg (230 lbs) BSA: 2.26 m^2 BMI: 31.19 kg/m^2 HR: 59 bpm BP: 189/81 mmHg Summary 1. LV is mildly enlarged. Normal LV function. LVEF is 55-60% 2. Diastology: Grade 1 diastolic dysfunction 3. Normal RV size and function 4. No significant valvular heart disease 5. Trace TR. Unable to estimate PASP 6. No pericardial effusion. Previous Study No previous echo is available for comparison. Signature Findings Left Ventricle Mild concentric LV hypertrophy. All of the LV segments contract normally . Estimated LVEF by qualitative assessment is normal (55-60%) . Grade 1 diastolic dysfunction (impaired relaxation and low-normal LA pressure). The left ventricle is chamber size (by vol index) is mildly enlarged (male - LVED 75-89ml/m2). Left Atrium LA size is severely enlarged (>48 ml/m2) . Right Ventricle Normal right ventricle structure and function. Right Atrium Normal right atrium. Aortic Valve Mild AoV cusp thickening. Mitral Valve Normal MV structure. Mild mitral regurgitation. Tricuspid Valve A trace of tricuspid regurgitation. Unable to estimate peak systolic PA pressure; inadequate TR velocity signal. Pulmonic Valve Normal PV structure and function by limited views and Doppler. Aorta Aortic root size (SInus of Valsalva diameter) is normal . Pericardium No evidence of pericardial effusion. IVC/SVC/PA/PV/Pleural The estimated RA pressure by IVC dynamics 5-10mmHg . Chambers/Structures Left Atrium LA Dimension: 4.17 cm LA Area: 31.97 cm^2 LA Volume: 118.17 ml LA Vol. Index: 52 ml/m^2 Left Ventricle LVIDd: 6 cm LV Septum Diastolic: 1.18 cm LV PW Diastolic: 1.29 cm LVEDV Padilla's:190.1 ml LVESV Padilla's:82.18 ml LVEF Padilla's: 56.8 % LVEDVI: 84 ml/m^2 LVESVI: 36 ml/m^2 LVOT Diameter: 2.44 cm Aorta Ao Root S of Susan.: 4.03 cm Doppler/Quantitative Measurements Mitral Valve MV Peak E-Wave: 0.85 m/s MV Peak A-Wave: 0.89 m/s E/A Ratio: 0.96 Peak Gradient: 2.91 mmHg Deceleration Time: 354.6 msec MV Carlitos. Peak: Tissue Doppler E' Lateral Velocity: 0.1 m/s A' Lateral Velocity: 0.13 m/s E/E': 8.95 LVOT Peak Velocity: 0.93 m/s Peak Gradient: 3.46 mmHg Mean Velocity: 0.56 m/s Mean Gradient: 1.57 mmHg LVOT Diameter: 2.44 cm LVOT VTI: 20.91 cm LVOT Area: 4.68 cm^2 LVOT SV:97.72 ml LVOT CO: 5.77 l/min LVOT CI: 2.55 l/min/m^2 Performing Organization Address [facility] Phone Number [facility] Vitamin B12 and Folate (07/25/2018 5:17 AM CDT) Vitamin B12 1,244 (H) 213 - 816 pg/mL [facility] Folate 5.1 (L) >=7.0 ng/mL [facility] Specimen Blood Performing Organization Address [facility] Phone Number [address] [address] CENTER Iron, TIBC, % sat. (without ferritin) (07/25/2018 5:17 AM CDT) Iron 56.0 40.0 - 160.0 ug/dL [facility] TIBC 296 250 - 450 ug/dL [facility] Iron % Saturation 19 (L) 20 - 55 % [facility] Specimen Blood Performing Organization Address [facility] Phone Number [address] [address] [phone] CENTER Hemoglobin A1c (07/25/2018 5:17 AM CDT) Hemoglobin A1C 4.5 4.3 - 6.1 % [facility] Specimen Blood Performing Organization Address [facility] Phone Number [address] [address] [phone] CENTER Ferritin (07/25/2018 5:17 AM CDT) Ferritin 283 (H) 5 - 275 ng/mL [facility] Specimen Blood Performing Organization Address City/State/Zipcode Phone Number [facility] [address] [place] [address] abdomen/pelvis with IV contrast (07/24/2018 8:51 PM CDT) Specimen Narrative Performed At FINAL REPORT Compliance Control CT of the Chest, abdomen and pelvis dated 07/24/2018 Clinical information: eval for metastatic disease Comment:Axial images of the chest, abdomen, and pelvis were obtained from thoracic inlet to the pubic symphysis with GI and intravenous contrast contrast. This exam was performed according to our departmental dose-optimization program, which includes automated exposure control, adjustment of the mA and/or kV according to patient size and/or use of interactive reconstruction technique. Heart is normal in size.Atherosclerotic calcification is seen in the thoracic aorta and coronary arteries. Great vessels are unremarkable. Nonspecific lymph nodes are seen in the paratracheal, subcarinal, and prevascular mediastinum. The largest lymph node measures approximately 1.0 x 1.3 cm.. Trachea and mainstem bronchi are patent. Both lungs are clear.No nodular, mass lesion or airspace disease is noted.No interstitial disease or bronchiectasis is present. No pleural effusion or pleural based mass is seen. Liver and spleen are normal in size. No focal lesion is seen in the liver or the spleen. Gallbladder is distended. No gallstone or biliary dilatation is noted. Pancreas and adrenals are unremarkable. Both kidneys are normal in size and functioning. A 3 mm stone is seen in the inferior pole right kidney. No hydronephrosis or hydroureter is present. A 7.4 x 8.3 x 6.87 mass is seen in the mid pole kidney. The mass is seen within the left Gerota's fascia and extending to the renal pelvis. No renal vein thrombosis is seen. The opacified small and large bowel are unremarkable. Appendix is not visualized. Prostate is enlarged measuring 6 x 6.9 x 7 cm. The urinary bladder is contracted. Atherosclerotic calcification is seen in the abdominal aorta and bilateral iliac arteries. A soft tissue mass is seen in the right pelvis measuring approximately 8.2 x 9.9 cm. There is erosion of the right ilium. Impression: 1. Left renal mass. 2. Mass lesion in the right pelvis with erosion of the right ilium suspicious for metastasis. 3. Nonspecific mediastinal lymph nodes. 4. Prostate enlargement. 5. Right renal stone without hydronephrosis or hydroureter. Signed: Sherif Garza MD Report Verified Date/Time:07/24/2018 21:44:37 Reading Location: [facility] B1 [id number] Consult Reading Room Procedure Note Interface, External Ris In - 07/24/2018 9:46 PM CDT FINAL REPORT CT of the Chest, abdomen and pelvis dated 07/24/2018 Clinical information: eval for metastatic disease Comment: Axial images of the chest, abdomen, and pelvis were obtained from thoracic inlet to the pubic symphysis with GI and intravenous contrast contrast. This exam was performed according to our departmental dose-optimization program, which includes automated exposure control, adjustment of the mA and/or kV according to patient size and/or use of interactive reconstruction technique. Heart is normal in size. Atherosclerotic calcification is seen in the thoracic aorta and coronary arteries. Great vessels are unremarkable. Nonspecific lymph nodes are seen in the paratracheal, subcarinal, and prevascular mediastinum. The largest lymph node measures approximately 1.0 x 1.3 cm.. Trachea and mainstem bronchi are patent. Both lungs are clear. No nodular, mass lesion or airspace disease is noted. No interstitial disease or bronchiectasis is present. No pleural effusion or pleural based mass is seen. Liver and spleen are normal in size. No focal lesion is seen in the liver or the spleen. Gallbladder is distended. No gallstone or biliary dilatation is noted. Pancreas and adrenals are unremarkable. Both kidneys are normal in size and functioning. A 3 mm stone is seen in the inferior pole right kidney. No hydronephrosis or hydroureter is present. A 7.4 x 8.3 x 6.87 mass is seen in the mid pole kidney. The mass is seen within the left Gerota's fascia and extending to the renal pelvis. No renal vein thrombosis is seen. The opacified small and large bowel are unremarkable. Appendix is not visualized. Prostate is enlarged measuring 6 x 6.9 x 7 cm. The urinary bladder is contracted. Atherosclerotic calcification is seen in the abdominal aorta and bilateral iliac arteries. A soft tissue mass is seen in the right pelvis measuring approximately 8.2 x 9.9 cm. There is erosion of the right ilium. Impression: 1. Left renal mass. 2. Mass lesion in the right pelvis with erosion of the right ilium suspicious for metastasis. 3. Nonspecific mediastinal lymph nodes. 4. Prostate enlargement. 5. Right renal stone without hydronephrosis or hydroureter. Signed: Sherif Garza MD Report Verified Date/Time: 07/24/2018 21:44:37 Reading Location: [facility] B1 [id number] Consult Reading Room Performing Organization Address City/State/Zipcode Phone Number Compliance Control CT chest with IV contrast (07/24/2018 8:51 PM CDT) Specimen Narrative Performed At FINAL REPORT Compliance Control CT of the Chest, abdomen and pelvis dated 07/24/2018 Clinical information: eval for metastatic disease Comment:Axial images of the chest, abdomen, and pelvis were obtained from thoracic inlet to the pubic symphysis with GI and intravenous contrast contrast. This exam was performed according to our departmental dose-optimization program, which includes automated exposure control, adjustment of the mA and/or kV according to patient size and/or use of interactive reconstruction technique. Heart is normal in size.Atherosclerotic calcification is seen in the thoracic aorta and coronary arteries. Great vessels are unremarkable. Nonspecific lymph nodes are seen in the paratracheal, subcarinal, and prevascular mediastinum. The largest lymph node measures approximately 1.0 x 1.3 cm.. Trachea and mainstem bronchi are patent. Both lungs are clear.No nodular, mass lesion or airspace disease is noted.No interstitial disease or bronchiectasis is present. No pleural effusion or pleural based mass is seen. Liver and spleen are normal in size. No focal lesion is seen in the liver or the spleen. Gallbladder is distended. No gallstone or biliary dilatation is noted. Pancreas and adrenals are unremarkable. Both kidneys are normal in size and functioning. A 3 mm stone is seen in the inferior pole right kidney. No hydronephrosis or hydroureter is present. A 7.4 x 8.3 x 6.87 mass is seen in the mid pole kidney. The mass is seen within the left Gerota's fascia and extending to the renal pelvis. No renal vein thrombosis is seen. The opacified small and large bowel are unremarkable. Appendix is not visualized. Prostate is enlarged measuring 6 x 6.9 x 7 cm. The urinary bladder is contracted. Atherosclerotic calcification is seen in the abdominal aorta and bilateral iliac arteries. A soft tissue mass is seen in the right pelvis measuring approximately 8.2 x 9.9 cm. There is erosion of the right ilium. Impression: 1. Left renal mass. 2. Mass lesion in the right pelvis with erosion of the right ilium suspicious for metastasis. 3. Nonspecific mediastinal lymph nodes. 4. Prostate enlargement. 5. Right renal stone without hydronephrosis or hydroureter. Signed: Sherif Garza MD Report Verified Date/Time:07/24/2018 21:44:37 Reading Location: [facility] [id number] Consult Reading Room Procedure Note Interface, External Ris In - 07/24/2018 9:46 PM CDT FINAL REPORT CT of the Chest, abdomen and pelvis dated 07/24/2018 Clinical information: eval for metastatic disease Comment: Axial images of the chest, abdomen, and pelvis were obtained from thoracic inlet to the pubic symphysis with GI and intravenous contrast contrast. This exam was performed according to our departmental dose-optimization program, which includes automated exposure control, adjustment of the mA and/or kV according to patient size and/or use of interactive reconstruction technique. Heart is normal in size. Atherosclerotic calcification is seen in the thoracic aorta and coronary arteries. Great vessels are unremarkable. Nonspecific lymph nodes are seen in the paratracheal, subcarinal, and prevascular mediastinum. The largest lymph node measures approximately 1.0 x 1.3 cm.. Trachea and mainstem bronchi are patent. Both lungs are clear. No nodular, mass lesion or airspace disease is noted. No interstitial disease or bronchiectasis is present. No pleural effusion or pleural based mass is seen. Liver and spleen are normal in size. No focal lesion is seen in the liver or the spleen. Gallbladder is distended. No gallstone or biliary dilatation is noted. Pancreas and adrenals are unremarkable. Both kidneys are normal in size and functioning. A 3 mm stone is seen in the inferior pole right kidney. No hydronephrosis or hydroureter is present. A 7.4 x 8.3 x 6.87 mass is seen in the mid pole kidney. The mass is seen within the left Gerota's fascia and extending to the renal pelvis. No renal vein thrombosis is seen. The opacified small and large bowel are unremarkable. Appendix is not visualized. Prostate is enlarged measuring 6 x 6.9 x 7 cm. The urinary bladder is contracted. Atherosclerotic calcification is seen in the abdominal aorta and bilateral iliac arteries. A soft tissue mass is seen in the right pelvis measuring approximately 8.2 x 9.9 cm. There is erosion of the right ilium. Impression: 1. Left renal mass. 2. Mass lesion in the right pelvis with erosion of the right ilium suspicious for metastasis. 3. Nonspecific mediastinal lymph nodes. 4. Prostate enlargement. 5. Right renal stone without hydronephrosis or hydroureter. Signed: Sherif Garza MD Report Verified Date/Time: 07/24/2018 21:44:37 Reading Location: [address] Consult Reading Room Performing Organization Address City/State/Zipcode Phone Number [facility] Urinalysis w/Microscopic + Reflex to Culture (07/24/2018 4:44 PM CDT) Color, UA Yellow [facility] Clarity, UA Clear [facility] Specific [place], UA 1.022 1.001 - 1.035 [facility] pH, UA 6.0 5.0 - 8.0 [facility] Protein, UA 50 mg/dL (A) Negative [facility] Glucose, UA Negative Negative [facility] Ketones, UA Negative Negative [facility] Bilirubin, UA Negative Negative [facility] Blood, UA Negative Negative [facility] Nitrite, UA Negative Negative [facility] Leukocytes, UA Negative Negative [facility] Urobilinogen, UA 0.2 0.2 - 1.0 mg/dL [facility] RBC, UA <1 /HPF [facility] WBC, UA <1 /HPF [facility] Mucus Few [facility] Specimen Source [facility] Specimen Urine Performing Organization Address City/State/Zipcode Phone Number [facility] [address] [place] [address] CENTER after 08/24/2017 Insurance Payer Benefit Plan / Group Subscriber ID Type Phone Address MEDICARE MEDICARE A B xxxxxxxxxxx Medicare MCR GENERIC MEDICARE xxxxxxx Medigap SUPPLEMENT/INDIVIDUAL SUPPLEMENT Advance Directives For more information, please contact:[address] [phone] Code Status Date Activated Date Inactivated Comments Full Code 08/21/2018 10:21 PM This code status was determined by: Patient Full Code 08/13/2018 2:17 AM 08/18/2018 6:10 PM This code status was determined by: Patient Full Code 08/13/2018 2:17 AM 08/13/2018 2:17 AM This code status was determined by: Patient Full Code 08/12/2018 10:57 PM 08/13/2018 2:16 AM This code status was determined by: Patient Full Code 07/22/2018 11:14 PM 07/28/2018 8:56 PM This code status was determined by: Patient
--- OUTSIDE RECORDS SUMMARY | 2018-08-25 18:48 | XMS REPORT ---
:1950 [facility] Address [address] Smith [address] [place] [address] Care Team Providers Name Role Phone MARIO MCDANIELS Unavailable Unavailable CORNELIA JIMENES Unavailable Unavailable ALYCIA BARNEY Unavailable Unavailable Problems This patient has no known problems. Allergies, Adverse Reactions, Alerts This patient has no known allergies or adverse reactions. Medications This patient has no known medications. 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 SEE SYNOPTIC REPORT. Signing Pathologist Direct Phone Line: [phone] signed by El Busby MD on 08/25/2018 at 3:12 PMKIDNEY: Nephrectomy (Kidney Res - All Specimens)SPECIMEN Procedure: Radical nephrectomy Specimen Laterality: Left TUMOR Tumor Site: Middle Histologic Type: Clear cell renal cell carcinoma Histologic Grade (WHO / ISUP Grade): G2: Nucleoli conspicuous and eosinophilic at 400x magnification, visible but not prominent at 100x magnification Tumor Size: Greatest dimension in Centimeters (cm): 6.5 Centimeters (cm) Additional Dimension in Centimeters (cm): 4.5 Centimeters (cm) Additional Dimension in Centimeters (cm): 4 Centimeters (cm) Tumor Focality: Unifocal Tumor Extent: Tumor Extension: Tumor limited to kidney Accessory Findings: Sarcomatoid Features: Not identified Rhabdoid Features: Not identified Tumor Necrosis: Present Percentage of Necrosis: 20 % Lymphovascular Invasion: Not identified MARGINS Margins: Uninvolved by invasive carcinoma LYMPH NODES Number of Lymph Nodes Involved: 0 Number of Lymph Nodes Examined: 2 PATHOLOGIC STAGE CLASSIFICATION (pTNM, AJCC 8th Edition) Primary Tumor (pT): pT1b Regional Lymph Nodes (pN): pN0 [id number] mass Left kidney The specimen is received in a formalin-filled container labeled with the patient's information and labeled "left kidney" and consists of a 1,110 gm left radical nephrectomy measuring 27 x 10 x 6 cm with ureter measuring 4 cm in length x 0.3 cm in diameter. There is an attached portion of adrenal gland attached to the hilar area measuring 1.5 x 1 x 0.3 cm. It is not grossly involved by tumor.The kidney is sectioned showing a multinodular, hemorrhagic, couch, stacy-yellow mass grossly involving the mid to lower poles, 6.5 to 4.5 x 4 cm grossly bulging the capsule but grossly confined within it. The mass grossly pushing up against the renal sinus but does not involve it grossly. The pelvis and ureter are grossly unremarkable with a couch-pink mucosa. The hilum yields two red lymph nodes measuring up to 1 cm.The remaining fat is sectioned yielding no lymph nodes.Section code: A1, ureteral margin; A2, vascular margins en face; A3, one lymph node bisected; A4, one lymph node; A5, adrenal gland; A6, A7, mass with renal sinus; A8, A9, tumor and Gerota's fascia; A10, A11, tumor and kidney parenchyma; A12, grossly uninvolved kidney parenchyma superior pole. CG/ew PERFORMED. BASIC METABOLIC PANEL 2018-08-25 06:41:00 Test Item Value Reference Range Comments SODIUM (BEAKER) (test 141 meq/L 136-145 dups=069) POTASSIUM (BEAKER) (test 4.5 meq/L 3.5-5.1 rtjm=809) CHLORIDE (BEAKER) (test 107 meq/L 98-107 ncln=394) CO2 (BEAKER) (test hwco=005) 27 meq/L 22-29 BLOOD UREA NITROGEN (BEAKER) 20 mg/dL 7-21 (test pwyb=919) CREATININE (BEAKER) (test 1.34 mg/dL 0.57-1.25 mqxx=668) GLUCOSE RANDOM (BEAKER) 104 mg/dL 70-105 (test ynsg=688) CALCIUM (BEAKER) (test 9.2 mg/dL 8.4-10.2 kyon=358) EGFR (BEAKER) (test 53 mL/min/1.73 sq m ESTIMATED GFR IS NOT bkst=5071) ACCURATE CREATININE CLEARANCE IN PREDICTING GLOMERULAR FILTRATION RATE. ESTIMATED GFR IS NOT APPLICABLE FOR DIALYSIS PATIENTS. CBC W/PLT COUNT & AUTO [id number] 06:14:00 Test Item Value Reference Range Comments WHITE BLOOD CELL COUNT (BEAKER) (test kvxe=564) 4.4 K/ L 3.5-10.5 RED BLOOD CELL COUNT (BEAKER) (test ubou=756) 3.00 M/ L 4.63-6.08 HEMOGLOBIN (BEAKER) (test fcxp=427) 8.4 GM/DL 13.7-17.5 HEMATOCRIT (BEAKER) (test tylc=787) 26.7 % 40.1-51.0 MEAN CORPUSCULAR VOLUME (BEAKER) (test ndbj=241) 89.0 fL 79.0-92.2 MEAN CORPUSCULAR HEMOGLOBIN (BEAKER) (test 28.0 pg 25.7-32.2 zluc=564) MEAN CORPUSCULAR HEMOGLOBIN CONC (BEAKER) (test 31.5 GM/DL 32.3-36.5 mvtk=625) RED CELL DISTRIBUTION WIDTH (BEAKER) (test 14.0 % 11.6-14.4 tbst=257) PLATELET COUNT (BEAKER) (test tdts=958) 199 K/CU MM 150-450 MEAN PLATELET VOLUME (BEAKER) (test fyta=274) 9.0 fL 9.4-12.4 NUCLEATED RED BLOOD CELLS (BEAKER) (test 0 /100 WBC 0-0 gpkt=321) NEUTROPHILS RELATIVE PERCENT (BEAKER) (test 49 % gaag=384) LYMPHOCYTES RELATIVE PERCENT (BEAKER) (test 41 % aoyg=076) MONOCYTES RELATIVE PERCENT (BEAKER) (test 8 % eutc=080) EOSINOPHILS RELATIVE PERCENT (BEAKER) (test 2 % ecnv=782) BASOPHILS RELATIVE PERCENT (BEAKER) (test 0 % zlkx=938) NEUTROPHILS ABSOLUTE COUNT (BEAKER) (test 2.18 K/ L 1.78-5.38 npmc=215) LYMPHOCYTES ABSOLUTE COUNT (BEAKER) (test 1.82 K/ L 1.32-3.57 fsxj=032) MONOCYTES ABSOLUTE COUNT (BEAKER) (test 0.34 K/ L 0.30-0.82 rmyy=390) EOSINOPHILS ABSOLUTE COUNT (BEAKER) (test 0.08 K/ L 0.04-0.54 xgjn=013) BASOPHILS ABSOLUTE COUNT (BEAKER) (test 0.01 K/ L 0.01-0.08 lpuu=989) IMMATURE GRANULOCYTES-RELATIVE PERCENT (BEAKER) 0 % 0-1 (test nlum=8126) BASIC METABOLIC [id number] 07:30:00 Test Item Value Reference Range Comments SODIUM (BEAKER) (test 137 meq/L 136-145 ecmu=178) POTASSIUM (BEAKER) (test 3.8 meq/L 3.5-5.1 riif=393) CHLORIDE (BEAKER) (test 105 meq/L 98-107 psyp=116) CO2 (BEAKER) (test 23 meq/L 22-29 yulb=292) BLOOD UREA NITROGEN 18 mg/dL 7-21 (BEAKER) (test ysur=622) CREATININE (BEAKER) (test 1.16 mg/dL 0.57-1.25 fbhr=448) GLUCOSE RANDOM (BEAKER) 105 mg/dL 70-105 (test uovb=730) CALCIUM (BEAKER) (test 8.8 mg/dL 8.4-10.2 bytn=896) EGFR (BEAKER) (test 62 mL/min/1.73 sq m ESTIMATED GFR IS NOT hwlq=4132) ACCURATE CREATININE CLEARANCE IN PREDICTING GLOMERULAR FILTRATION RATE. ESTIMATED GFR IS NOT APPLICABLE FOR DIALYSIS PATIENTS. CBC W/PLT COUNT & AUTO [id number] 07:16:00 Test Item Value Reference Range Comments WHITE BLOOD CELL COUNT (BEAKER) (test ivns=168) 4.0 K/ L 3.5-10.5 RED BLOOD CELL COUNT (BEAKER) (test tszg=804) 2.96 M/ L 4.63-6.08 HEMOGLOBIN (BEAKER) (test fpxe=450) 8.3 GM/DL 13.7-17.5 HEMATOCRIT (BEAKER) (test ypgj=377) 26.5 % 40.1-51.0 MEAN CORPUSCULAR VOLUME (BEAKER) (test vird=293) 89.5 fL 79.0-92.2 MEAN CORPUSCULAR HEMOGLOBIN (BEAKER) (test 28.0 pg 25.7-32.2 vdtn=238) MEAN CORPUSCULAR HEMOGLOBIN CONC (BEAKER) (test 31.3 GM/DL 32.3-36.5 iugq=283) RED CELL DISTRIBUTION WIDTH (BEAKER) (test 13.8 % 11.6-14.4 blgf=609) PLATELET COUNT (BEAKER) (test bjmo=438) 190 K/CU MM 150-450 MEAN PLATELET VOLUME (BEAKER) (test cpsn=862) 9.5 fL 9.4-12.4 NUCLEATED RED BLOOD CELLS (BEAKER) (test 0 /100 WBC 0-0 tawe=819) NEUTROPHILS RELATIVE PERCENT (BEAKER) (test 56 % jkpb=093) LYMPHOCYTES RELATIVE PERCENT (BEAKER) (test 33 % edtl=473) MONOCYTES RELATIVE PERCENT (BEAKER) (test 8 % kutj=925) EOSINOPHILS RELATIVE PERCENT (BEAKER) (test 2 % lvfj=461) BASOPHILS RELATIVE PERCENT (BEAKER) (test 1 % ezmo=742) NEUTROPHILS ABSOLUTE COUNT (BEAKER) (test 2.23 K/ L 1.78-5.38 boxa=801) LYMPHOCYTES ABSOLUTE COUNT (BEAKER) (test 1.34 K/ L 1.32-3.57 ucuj=050) MONOCYTES ABSOLUTE COUNT (BEAKER) (test 0.32 K/ L 0.30-0.82 lomp=833) EOSINOPHILS ABSOLUTE COUNT (BEAKER) (test 0.09 K/ L 0.04-0.54 rfkx=774) BASOPHILS ABSOLUTE COUNT (BEAKER) (test 0.02 K/ L 0.01-0.08 gyzi=037) IMMATURE GRANULOCYTES-RELATIVE PERCENT (BEAKER) 1 % 0-1 (test vaan=0719) BASIC METABOLIC [id number] 06:32:00 Test Item Value Reference Range Comments SODIUM (BEAKER) (test 139 meq/L 136-145 gfxi=058) POTASSIUM (BEAKER) (test 4.1 meq/L 3.5-5.1 mqxk=240) CHLORIDE (BEAKER) (test 106 meq/L 98-107 sbhs=371) CO2 (BEAKER) (test 26 meq/L 22-29 fots=597) BLOOD UREA NITROGEN 23 mg/dL 7-21 (BEAKER) (test hsbz=620) CREATININE (BEAKER) (test 1.31 mg/dL 0.57-1.25 pepn=234) GLUCOSE RANDOM (BEAKER) 124 mg/dL 70-105 (test dmqd=487) CALCIUM (BEAKER) (test 8.8 mg/dL 8.4-10.2 htpn=970) EGFR (BEAKER) (test 54 mL/min/1.73 sq m ESTIMATED GFR IS NOT sxma=4239) ACCURATE CREATININE CLEARANCE IN PREDICTING GLOMERULAR FILTRATION RATE. ESTIMATED GFR IS NOT APPLICABLE FOR DIALYSIS PATIENTS. CBC W/PLT COUNT & AUTO [id number] 05:57:00 Test Item Value Reference Range Comments WHITE BLOOD CELL COUNT (BEAKER) (test bqsz=598) 4.1 K/ L 3.5-10.5 RED BLOOD CELL COUNT (BEAKER) (test dmut=667) 2.94 M/ L 4.63-6.08 HEMOGLOBIN (BEAKER) (test dllb=182) 8.2 GM/DL 13.7-17.5 HEMATOCRIT (BEAKER) (test keld=423) 26.4 % 40.1-51.0 MEAN CORPUSCULAR VOLUME (BEAKER) (test kngz=289) 89.8 fL 79.0-92.2 MEAN CORPUSCULAR HEMOGLOBIN (BEAKER) (test 27.9 pg 25.7-32.2 wess=947) MEAN CORPUSCULAR HEMOGLOBIN CONC (BEAKER) (test 31.1 GM/DL 32.3-36.5 aksz=490) RED CELL DISTRIBUTION WIDTH (BEAKER) (test 14.0 % 11.6-14.4 jeuy=235) PLATELET COUNT (BEAKER) (test nkzf=062) 181 K/CU MM 150-450 MEAN PLATELET VOLUME (BEAKER) (test fqzx=537) 9.7 fL 9.4-12.4 NUCLEATED RED BLOOD CELLS (BEAKER) (test 0 /100 WBC 0-0 pxgl=083) NEUTROPHILS RELATIVE PERCENT (BEAKER) (test 61 % uwpz=460) LYMPHOCYTES RELATIVE PERCENT (BEAKER) (test 29 % hlmt=968) MONOCYTES RELATIVE PERCENT (BEAKER) (test 9 % rnlu=621) EOSINOPHILS RELATIVE PERCENT (BEAKER) (test 2 % pnfk=212) BASOPHILS RELATIVE PERCENT (BEAKER) (test 0 % jzbh=643) NEUTROPHILS ABSOLUTE COUNT (BEAKER) (test 2.48 K/ L 1.78-5.38 mvlb=533) LYMPHOCYTES ABSOLUTE COUNT (BEAKER) (test 1.18 K/ L 1.32-3.57 hgsw=115) MONOCYTES ABSOLUTE COUNT (BEAKER) (test 0.35 K/ L 0.30-0.82 syru=113) EOSINOPHILS ABSOLUTE COUNT (BEAKER) (test 0.07 K/ L 0.04-0.54 wjzk=435) BASOPHILS ABSOLUTE COUNT (BEAKER) (test 0.01 K/ L 0.01-0.08 qxcq=311) IMMATURE GRANULOCYTES-RELATIVE PERCENT (BEAKER) 0 % 0-1 (test mpip=0109) POCT-GLUCOSE [id number] 12:04:00 Test Item Value Reference Range Comments POC-GLUCOSE METER (BEAKER) 110 mg/dL 70-110 TESTED AT [address] (test fxls=1037) [facility] [id number] POCT-GLUCOSE [id number] 09:07:00 Test Item Value Reference Range Comments POC-GLUCOSE METER (BEAKER) 104 mg/dL 70-110 TESTED AT [address] (test sklw=5195) [facility] [id number] BASIC METABOLIC [id number] 06:10:00 Test Item Value Reference Range Comments SODIUM (BEAKER) (test 136 meq/L 136-145 iuam=478) POTASSIUM (BEAKER) (test 4.5 meq/L 3.5-5.1 rslc=953) CHLORIDE (BEAKER) (test 105 meq/L 98-107 iehq=000) CO2 (BEAKER) (test 23 meq/L 22-29 stfr=511) BLOOD UREA NITROGEN 27 mg/dL 7-21 (BEAKER) (test iilx=927) CREATININE (BEAKER) (test 1.38 mg/dL 0.57-1.25 awsh=628) GLUCOSE RANDOM (BEAKER) 111 mg/dL 70-105 (test ofup=907) CALCIUM (BEAKER) (test 8.7 mg/dL 8.4-10.2 elqg=510) EGFR (BEAKER) (test 51 mL/min/1.73 sq m ESTIMATED GFR IS NOT ehki=0756) ACCURATE CREATININE CLEARANCE IN PREDICTING GLOMERULAR FILTRATION RATE. ESTIMATED GFR IS NOT APPLICABLE FOR DIALYSIS PATIENTS. CBC W/PLT COUNT & AUTO [id number] 05:22:00 Test Item Value Reference Range Comments WHITE BLOOD CELL COUNT (BEAKER) (test fxhw=677) 5.0 K/ L 3.5-10.5 RED BLOOD CELL COUNT (BEAKER) (test yikg=491) 2.97 M/ L 4.63-6.08 HEMOGLOBIN (BEAKER) (test uzqn=120) 8.4 GM/DL 13.7-17.5 HEMATOCRIT (BEAKER) (test ymdf=581) 26.6 % 40.1-51.0 MEAN CORPUSCULAR VOLUME (BEAKER) (test zjkh=509) 89.6 fL 79.0-92.2 MEAN CORPUSCULAR HEMOGLOBIN (BEAKER) (test 28.3 pg 25.7-32.2 nupk=191) MEAN CORPUSCULAR HEMOGLOBIN CONC (BEAKER) (test 31.6 GM/DL 32.3-36.5 mymb=615) RED CELL DISTRIBUTION WIDTH (BEAKER) (test 13.8 % 11.6-14.4 jsnx=830) PLATELET COUNT (BEAKER) (test rewi=486) 185 K/CU MM 150-450 MEAN PLATELET VOLUME (BEAKER) (test plpx=723) 9.1 fL 9.4-12.4 NUCLEATED RED BLOOD CELLS (BEAKER) (test 0 /100 WBC 0-0 khve=799) NEUTROPHILS RELATIVE PERCENT (BEAKER) (test 62 % pkjj=914) LYMPHOCYTES RELATIVE PERCENT (BEAKER) (test 28 % itnk=412) MONOCYTES RELATIVE PERCENT (BEAKER) (test 9 % bcaf=578) EOSINOPHILS RELATIVE PERCENT (BEAKER) (test 0 % frix=398) BASOPHILS RELATIVE PERCENT (BEAKER) (test 0 % hqpi=116) NEUTROPHILS ABSOLUTE COUNT (BEAKER) (test 3.14 K/ L 1.78-5.38 ygfl=254) LYMPHOCYTES ABSOLUTE COUNT (BEAKER) (test 1.41 K/ L 1.32-3.57 qhki=309) MONOCYTES ABSOLUTE COUNT (BEAKER) (test 0.46 K/ L 0.30-0.82 gutt=487) EOSINOPHILS ABSOLUTE COUNT (BEAKER) (test 0.00 K/ L 0.04-0.54 opzc=182) BASOPHILS ABSOLUTE COUNT (BEAKER) (test 0.01 K/ L 0.01-0.08 tduc=341) IMMATURE GRANULOCYTES-RELATIVE PERCENT (BEAKER) 0 % 0-1 (test jibb=8368) BASIC METABOLIC [id number] 21:59:00 Test Item Value Reference Range Comments SODIUM (BEAKER) (test 136 meq/L 136-145 fsnt=315) POTASSIUM (BEAKER) (test 4.6 meq/L 3.5-5.1 sdva=987) CHLORIDE (BEAKER) (test 104 meq/L 98-107 swpn=213) CO2 (BEAKER) (test 22 meq/L 22-29 wtmo=123) BLOOD UREA NITROGEN 28 mg/dL 7-21 (BEAKER) (test bnlv=036) CREATININE (BEAKER) (test 1.50 mg/dL 0.57-1.25 iibr=508) GLUCOSE RANDOM (BEAKER) 154 mg/dL 70-105 (test msga=236) CALCIUM (BEAKER) (test 8.6 mg/dL 8.4-10.2 jola=088) EGFR (BEAKER) (test 46 mL/min/1.73 sq m ESTIMATED GFR IS NOT nhyt=4041) ACCURATE CREATININE CLEARANCE IN PREDICTING GLOMERULAR FILTRATION RATE. ESTIMATED GFR IS NOT APPLICABLE FOR DIALYSIS PATIENTS. HEMOGLOBIN AND [id number] 21:21:00 Test Item Value Reference Range Comments HEMOGLOBIN (BEAKER) (test ilns=735) 8.8 GM/DL 13.7-17.5 HEMATOCRIT (BEAKER) (test zqpy=147) 28.4 % 40.1-51.0 POCT-GLUCOSE [id number] 20:59:00 Test Item Value Reference Range Comments POC-GLUCOSE METER (BEAKER) 161 mg/dL 70-110 TESTED AT [address] (test elyq=6914) [facility] [address] POCT-GLUCOSE [id number] 12:51:00 Test Item Value Reference Range Comments POC-GLUCOSE METER (BEAKER) 131 mg/dL 70-110 TESTED AT [address] (test lofz=5466) [facility] [address] POCT-GLUCOSE [id number] 14:19:00 Test Item Value Reference Range Comments POC-GLUCOSE METER (BEAKER) 138 mg/dL 70-110 TESTED AT [address] (test mdfm=0434) [facility] [address] POCT-GLUCOSE [id number] 08:57:00 Test Item Value Reference Range Comments POC-GLUCOSE METER (BEAKER) 132 mg/dL 70-110 TESTED AT [address] (test fhto=5859) [facility] [address] POCT-GLUCOSE [id number] 21:03:00 Test Item Value Reference Range Comments POC-GLUCOSE METER (BEAKER) 165 mg/dL 70-110 TESTED AT [address] (test miwn=6683) [facility] [address] POCT-GLUCOSE [id number] 18:52:00 Test Item Value Reference Range Comments POC-GLUCOSE METER (BEAKER) 127 mg/dL 70-110 TESTED AT [address] (test dsos=0059) [place] [id number] POCT-GLUCOSE [id number] 13:22:00 Test Item Value Reference Range Comments POC-GLUCOSE METER (BEAKER) 155 mg/dL 70-110 TESTED AT [address] (test axqq=0918) [facility] [address] POCT-GLUCOSE [id number] 08:52:00 Test Item Value Reference Range Comments POC-GLUCOSE METER (BEAKER) 150 mg/dL 70-110 TESTED AT [address] (test zbwo=1237) [facility] [address] POCT-GLUCOSE [id number] 22:36:00 Test Item Value Reference Range Comments POC-GLUCOSE METER (BEAKER) 149 mg/dL 70-110 TESTED AT [address] (test afpd=0048) [facility] [address] POCT-GLUCOSE [id number] 13:20:00 Test Item Value Reference Range Comments POC-GLUCOSE METER (BEAKER) 169 mg/dL 70-110 TESTED AT [address] (test liql=9192) [facility] [address] POCT-GLUCOSE [id number] 09:00:00 Test Item Value Reference Range Comments POC-GLUCOSE METER (BEAKER) 140 mg/dL 70-110 TESTED AT [address] (test owzw=7730) [place] [id number] CBC W/PLT COUNT & AUTO [id number] 06:23:00 Test Item Value Reference Range Comments WHITE BLOOD CELL COUNT (BEAKER) (test mmqv=763) 4.5 K/ L 3.5-10.5 RED BLOOD CELL COUNT (BEAKER) (test uwgq=130) 3.14 M/ L 4.63-6.08 HEMOGLOBIN (BEAKER) (test hmmy=729) 9.0 GM/DL 13.7-17.5 HEMATOCRIT (BEAKER) (test mogw=003) 28.1 % 40.1-51.0 MEAN CORPUSCULAR VOLUME (BEAKER) (test wxom=833) 89.5 fL 79.0-92.2 MEAN CORPUSCULAR HEMOGLOBIN (BEAKER) (test 28.7 pg 25.7-32.2 isbz=276) MEAN CORPUSCULAR HEMOGLOBIN CONC (BEAKER) (test 32.0 GM/DL 32.3-36.5 damq=010) RED CELL DISTRIBUTION WIDTH (BEAKER) (test 14.6 % 11.6-14.4 kssm=673) PLATELET COUNT (BEAKER) (test qbsq=391) 115 K/CU MM 150-450 MEAN PLATELET VOLUME (BEAKER) (test xlnq=453) 9.4 fL 9.4-12.4 NUCLEATED RED BLOOD CELLS (BEAKER) (test 0 /100 WBC 0-0 ontb=673) NEUTROPHILS RELATIVE PERCENT (BEAKER) (test 52 % vmdl=053) LYMPHOCYTES RELATIVE PERCENT (BEAKER) (test 32 % funl=562) MONOCYTES RELATIVE PERCENT (BEAKER) (test 12 % ukfg=168) EOSINOPHILS RELATIVE PERCENT (BEAKER) (test 3 % adba=192) BASOPHILS RELATIVE PERCENT (BEAKER) (test 0 % sdzs=860) NEUTROPHILS ABSOLUTE COUNT (BEAKER) (test 2.35 K/ L 1.78-5.38 tjgq=117) LYMPHOCYTES ABSOLUTE COUNT (BEAKER) (test 1.42 K/ L 1.32-3.57 kzfy=397) MONOCYTES ABSOLUTE COUNT (BEAKER) (test 0.56 K/ L 0.30-0.82 sdsh=663) EOSINOPHILS ABSOLUTE COUNT (BEAKER) (test 0.14 K/ L 0.04-0.54 ncxp=523) BASOPHILS ABSOLUTE COUNT (BEAKER) (test 0.01 K/ L 0.01-0.08 vred=362) IMMATURE GRANULOCYTES-RELATIVE PERCENT (BEAKER) 0 % 0-1 (test yjug=5728) ANG, ARTERIAL EMBOLIZATION FOR [id number] 15:04:00Reason for exam:-> right iliac wing RCC metastasis - requires preoperative embolization for excision on 08/13/18FINAL REPORT Right iliac wing lesion preoperative arterial [...] the patient's medical record by the nurse. Aluminum Pourer: Austin Frost MD. Supervisor Pumping: None. Approach: Left common femoral artery Estimated blood loss: < 5 cc. Specimen: None. Fluoroscopy Time: 27.2 min.Reference Air Kerma (Ka, r): 1068 mGy. Technique: [...] patient that were not prepped, and hand hygiene , mask, head covering, and sterile gown for performing radiologist and scrub technologist. Initial ultrasound images demonstrate patent left common femoral artery. Using ultrasound guidance, following acquisition of permanent images, the left common femoral artery was accessed using a 21-gauge micropuncture needle. A 0.018 inch wire was advanced into the abdominal aorta. Theneedle was exchanged for a 4 Norwegian micropuncture sheath. The micropuncture sheath was exchanged over a 0.035 Bentson wire for a 5 Norwegian x 10 cm vascular sheath. Using a 5 Norwegian contra catheter and 0.035 angled Glidewire, the right common iliac artery was accessed via an up and over technique. A 4 Norwegian glide catheter was advanced into the left common iliac artery and a DSA run was performed. Using a 2.8 Norwegian microcatheter and 0.016 inch microwire, the circumflex [...] The arteriotomy was closed using a 5 Norwegian Myxn closure device. A sterile dressing was applied. The patient tolerated the procedure without immediate complication. FINDINGS:1. Right common iliac arteriography demonstrates large, significantly hypervascular right iliac lesion with recruitment of numerous vessels from the circumflex femoral, circumflex iliac common and common iliac arteries. Additionally, prominent arteriovenous shunting was noted precluding use of small particles.2. Successful Gelfoam embolization of the hypervascular right iliac lesion via multiple branches arising off the circumflex femoral and iliac arteries as detailed above.3. Post embolization arteriography from the right common iliac artery demonstrates significant reduction of hypervascularity within the large right iliac lesion.4. Left common femoral artery injection demonstrates patent left common femoral artery and puncture amenable for closure device. Impression: Technically successful pelvic arteriography and arterial embolization of right iliac lesion resulting in significant reduction in hypervascularity as detailed above. Signed: Austin Frost MDReport Verified Date/Time: 08/15/2018 15:04:06 Reading Location: [place] [address] Angio Body Reading Room POCT- GLUCOSE [id number] 11:13:00 Test Item Value Reference Range Comments POC-GLUCOSE METER (BEAKER) 136 mg/dL 70-110 TESTED AT [facility] [address] [place] [address] (test zari=9339) [facility] [address] BASIC METABOLIC [id number] 04:54:00 Test Item Value Reference Range Comments SODIUM (BEAKER) (test 135 meq/L 136-145 mihz=958) POTASSIUM (BEAKER) (test 4.1 meq/L 3.5-5.1 arte=486) CHLORIDE (BEAKER) (test 103 meq/L 98-107 qjqe=366) CO2 (BEAKER) (test 26 meq/L 22-29 plgz=442) BLOOD UREA NITROGEN 17 mg/dL 7-21 (BEAKER) (test zrar=033) CREATININE (BEAKER) (test 0.92 mg/dL 0.57-1.25 quds=738) GLUCOSE RANDOM (BEAKER) 134 mg/dL 70-105 (test xuhj=398) CALCIUM (BEAKER) (test 8.6 mg/dL 8.4-10.2 arlz=090) EGFR (BEAKER) (test 81 mL/min/1.73 sq m ESTIMATED GFR IS NOT pihi=1226) ACCURATE CREATININE CLEARANCE IN PREDICTING GLOMERULAR FILTRATION RATE. ESTIMATED GFR IS NOT APPLICABLE FOR DIALYSIS PATIENTS. [id number] 04:52:00 Test Item Value Reference Range Comments PHOSPHORUS (BEAKER) (test tmum=221) 2.7 mg/dL 2.3-4.7 [id number] 04:52:00 Test Item Value Reference Range Comments MAGNESIUM (BEAKER) (test jspw=244) 1.6 mg/dL 1.6-2.6 HEPATIC FUNCTION [id number] 04:52:00 Test Item Value Reference Range Comments TOTAL PROTEIN (BEAKER) (test lqnp=561) 6.4 gm/dL 6.0-8.3 ALBUMIN (BEAKER) (test tpgw=3880) 3.4 g/dL 3.5-5.0 BILIRUBIN TOTAL (BEAKER) (test naal=155) 0.5 mg/dL 0.2-1.2 BILIRUBIN DIRECT (BEAKER) (test ybrh=883) 0.3 mg/dL 0.1-0.5 ALKALINE PHOSPHATASE (BEAKER) (test hbkb=693) 76 U/L 40-150 AST (SGOT) (BEAKER) (test unon=854) 19 U/L 5-34 ALT (SGPT) (BEAKER) (test hgef=316) 6 U/L 6-55 CBC W/PLT COUNT & AUTO [id number] 04:32:00 Test Item Value Reference Range Comments WHITE BLOOD CELL COUNT (BEAKER) (test mgzg=163) 4.3 K/ L 3.5-10.5 RED BLOOD CELL COUNT (BEAKER) (test ucoc=237) 3.02 M/ L 4.63-6.08 HEMOGLOBIN (BEAKER) (test rozf=348) 8.5 GM/DL 13.7-17.5 HEMATOCRIT (BEAKER) (test eqyk=515) 27.2 % 40.1-51.0 MEAN CORPUSCULAR VOLUME (BEAKER) (test bqhc=626) 90.1 fL 79.0-92.2 MEAN CORPUSCULAR HEMOGLOBIN (BEAKER) (test 28.1 pg 25.7-32.2 bchv=787) MEAN CORPUSCULAR HEMOGLOBIN CONC (BEAKER) (test 31.3 GM/DL 32.3-36.5 wtxg=940) RED CELL DISTRIBUTION WIDTH (BEAKER) (test 14.9 % 11.6-14.4 ftqh=270) PLATELET COUNT (BEAKER) (test ghnu=636) 105 K/CU MM 150-450 MEAN PLATELET VOLUME (BEAKER) (test iwjq=272) 9.4 fL 9.4-12.4 NUCLEATED RED BLOOD CELLS (BEAKER) (test 0 /100 WBC 0-0 ewrq=785) NEUTROPHILS RELATIVE PERCENT (BEAKER) (test 56 % wjfj=978) LYMPHOCYTES RELATIVE PERCENT (BEAKER) (test 31 % urqi=938) MONOCYTES RELATIVE PERCENT (BEAKER) (test 11 % yres=583) EOSINOPHILS RELATIVE PERCENT (BEAKER) (test 2 % hkvu=446) BASOPHILS RELATIVE PERCENT (BEAKER) (test 0 % vqwo=557) NEUTROPHILS ABSOLUTE COUNT (BEAKER) (test 2.44 K/ L 1.78-5.38 gctc=632) LYMPHOCYTES ABSOLUTE COUNT (BEAKER) (test 1.33 K/ L 1.32-3.57 vigo=180) MONOCYTES ABSOLUTE COUNT (BEAKER) (test 0.46 K/ L 0.30-0.82 ymwy=165) EOSINOPHILS ABSOLUTE COUNT (BEAKER) (test 0.08 K/ L 0.04-0.54 hszv=356) BASOPHILS ABSOLUTE COUNT (BEAKER) (test 0.01 K/ L 0.01-0.08 rtrb=212) IMMATURE GRANULOCYTES-RELATIVE PERCENT (BEAKER) 1 % 0-1 (test kwwc=3773) POCT-GLUCOSE [id number] 21:14:00 Test Item Value Reference Range Comments POC-GLUCOSE METER (BEAKER) 170 mg/dL 70-110 TESTED AT [address] (test gctu=7073) [facility] [id number] POCT-GLUCOSE [id number] 13:18:00 Test Item Value Reference Range Comments POC-GLUCOSE METER (BEAKER) 141 mg/dL 70-110 TESTED AT [address] (test ztxy=6139) [facility] [id number] POCT-GLUCOSE [id number] 09:24:00 Test Item Value Reference Range Comments POC-GLUCOSE METER (BEAKER) 132 mg/dL 70-110 TESTED AT [address] (test tsuv=1841) [facility] [address] CBC W/PLT COUNT & AUTO [id number] 06:37:00 Test Item Value Reference Range Comments WHITE BLOOD CELL COUNT (BEAKER) (test zuvi=934) 4.8 K/ L 3.5-10.5 RED BLOOD CELL COUNT (BEAKER) (test qulj=061) 3.25 M/ L 4.63-6.08 HEMOGLOBIN (BEAKER) (test pkus=477) 9.5 GM/DL 13.7-17.5 HEMATOCRIT (BEAKER) (test vogm=948) 29.2 % 40.1-51.0 MEAN CORPUSCULAR VOLUME (BEAKER) (test htnm=409) 89.8 fL 79.0-92.2 MEAN CORPUSCULAR HEMOGLOBIN (BEAKER) (test 29.2 pg 25.7-32.2 bjsi=570) MEAN CORPUSCULAR HEMOGLOBIN CONC (BEAKER) (test 32.5 GM/DL 32.3-36.5 atzx=333) RED CELL DISTRIBUTION WIDTH (BEAKER) (test 14.6 % 11.6-14.4 cwlu=584) PLATELET COUNT (BEAKER) (test sehx=144) 128 K/CU MM 150-450 MEAN PLATELET VOLUME (BEAKER) (test gqet=578) 9.5 fL 9.4-12.4 NUCLEATED RED BLOOD CELLS (BEAKER) (test 0 /100 WBC 0-0 lwvh=103) NEUTROPHILS RELATIVE PERCENT (BEAKER) (test 64 % pbyw=290) LYMPHOCYTES RELATIVE PERCENT (BEAKER) (test 25 % smvv=737) MONOCYTES RELATIVE PERCENT (BEAKER) (test 10 % ksmm=726) EOSINOPHILS RELATIVE PERCENT (BEAKER) (test 0 % vhbf=729) BASOPHILS RELATIVE PERCENT (BEAKER) (test 0 % uzrb=516) NEUTROPHILS ABSOLUTE COUNT (BEAKER) (test 3.06 K/ L 1.78-5.38 xpji=300) LYMPHOCYTES ABSOLUTE COUNT (BEAKER) (test 1.21 K/ L 1.32-3.57 sest=874) MONOCYTES ABSOLUTE COUNT (BEAKER) (test 0.48 K/ L 0.30-0.82 jwtl=605) EOSINOPHILS ABSOLUTE COUNT (BEAKER) (test 0.01 K/ L 0.04-0.54 cdkw=313) BASOPHILS ABSOLUTE COUNT (BEAKER) (test 0.00 K/ L 0.01-0.08 rosp=750) IMMATURE GRANULOCYTES-RELATIVE PERCENT (BEAKER) 0 % 0-1 (test dxtf=0475) [id number] 06:13:00 Test Item Value Reference Range Comments PHOSPHORUS (BEAKER) (test egte=153) 4.3 mg/dL 2.3-4.7 [id number] 06:13:00 Test Item Value Reference Range Comments MAGNESIUM (BEAKER) (test lnxc=507) 1.7 mg/dL 1.6-2.6 BASIC METABOLIC [id number] 06:13:00 Test Item Value Reference Range Comments SODIUM (BEAKER) (test 135 meq/L 136-145 izkv=496) POTASSIUM (BEAKER) (test 4.6 meq/L 3.5-5.1 rzrh=135) CHLORIDE (BEAKER) (test 103 meq/L 98-107 wupg=699) CO2 (BEAKER) (test 24 meq/L 22-29 sobu=393) BLOOD UREA NITROGEN 19 mg/dL 7-21 (BEAKER) (test zfoa=064) CREATININE (BEAKER) (test 0.96 mg/dL 0.57-1.25 udij=855) GLUCOSE RANDOM (BEAKER) 118 mg/dL 70-105 (test supw=553) CALCIUM (BEAKER) (test 8.6 mg/dL 8.4-10.2 fotk=973) EGFR (BEAKER) (test 77 mL/min/1.73 sq m ESTIMATED GFR IS NOT qnox=0351) ACCURATE CREATININE CLEARANCE IN PREDICTING GLOMERULAR FILTRATION RATE. ESTIMATED GFR IS NOT APPLICABLE FOR DIALYSIS PATIENTS. HEPATIC FUNCTION [id number] 06:13:00 Test Item Value Reference Range Comments TOTAL PROTEIN (BEAKER) (test njvh=310) 6.4 gm/dL 6.0-8.3 ALBUMIN (BEAKER) (test fozu=9554) 3.5 g/dL 3.5-5.0 BILIRUBIN TOTAL (BEAKER) (test pkpv=496) 0.5 mg/dL 0.2-1.2 BILIRUBIN DIRECT (BEAKER) (test xxct=058) 0.3 mg/dL 0.1-0.5 ALKALINE PHOSPHATASE (BEAKER) (test zeyg=410) 70 U/L 40-150 AST (SGOT) (BEAKER) (test nrrk=005) 34 U/L 5-34 ALT (SGPT) (BEAKER) (test owzn=817) 7 U/L 6-55 POCT-GLUCOSE [id number] 22:31:00 Test Item Value Reference Range Comments POC-GLUCOSE METER (BEAKER) 157 mg/dL 70-110 TESTED AT [address] (test upgm=0043) [place] [address] RAD, PELVIS, 1 OR 2 [id number] 20:11:00Reason for exam:->postop right pelvis fixation and RCC cementingFINAL REPORT Pelvis, There are two screws extending transversely inthe supra-acetabular portion of the right iliac bone. The more superior screw extends to overlie thesacroiliac joint. High-grade density material has been placed into the lateral aspect of the right iliac bone, apparently into the previous defect. There is a drainage bulb connected to a catheter that extends into the high density area.. Signed: Rika Escobar MDRepparkland [facility] center Verified Date/Time: 08/13/201820: 11:08 Reading Location: [address] Consult Reading Room POCT-GLUCOSE [id number] 18:15:00 Test Item Value Reference Range Comments POC-GLUCOSE METER (BEAKER) 146 mg/dL 70-110 TESTED AT [address] (test mmfk=0341) [place] [id number] HEMOGLOBIN AND [id number] 18:05:00 Test Item Value Reference Range Comments HEMOGLOBIN (BEAKER) (test dtpo=782) 10.3 GM/DL 13.7-17.5 HEMATOCRIT (BEAKER) (test scht=128) 32.5 % 40.1-51.0 FL, [employer] IN OR/30 MINUTE [id number] 17:33:00Reason for exam:-> painFINAL REPORT Operative right hip, 08/13/2018 Eight images are submitted of theright hip in various projections displaying initial placement of of contrast into the superior acetabular region followed by placement of two screws extending transversely into the acetabulum. 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 Signed:Rika Escobar MDReport Verified Date/Time: 2018 17:33:20 Reading Location: [facility] C013W Consult Reading Room PROTHROMBIN [id number] 03:57:00 Test Item Value Reference Range Comments PROTIME (BEAKER) (test fbcr=983) 13.7 seconds 11.7-14.7 INR (BEAKER) (test mnaq=718) 1.0 <=5.9 RECOMMENDED COUMADIN/WARFARIN INR THERAPY RANGESSTANDARD DOSE: 2.0 - 3.0 Includes: PROPHYLAXIS forvenous thrombosis, systemic embolization; TREATMENT for venous thrombosis and/or pulmonary embolus.HIGH RISK: Target INR is 2.5-3.5 for patients with mechanical heart valves.[id number] 03:55:00 Test Item Value Reference Range Comments PHOSPHORUS (BEAKER) (test fqxl=252) 3.2 mg/dL 2.3-4.7 [id number] 03:55:00 Test Item Value Reference Range Comments MAGNESIUM (BEAKER) (test duzb=194) 1.4 mg/dL 1.6-2.6 BASIC METABOLIC [id number] 03:55:00 Test Item Value Reference Range Comments SODIUM (BEAKER) (test 138 meq/L 136-145 gfmt=814) POTASSIUM (BEAKER) (test 3.7 meq/L 3.5-5.1 czma=828) CHLORIDE (BEAKER) (test 104 meq/L 98-107 idvk=913) CO2 (BEAKER) (test 26 meq/L 22-29 wgzr=406) BLOOD UREA NITROGEN 16 mg/dL 7-21 (BEAKER) (test wxqd=293) CREATININE (BEAKER) (test 0.84 mg/dL 0.57-1.25 cohs=729) GLUCOSE RANDOM (BEAKER) 123 mg/dL 70-105 (test pxpu=992) CALCIUM (BEAKER) (test 9.7 mg/dL 8.4-10.2 ncwp=622) EGFR (BEAKER) (test 90 mL/min/1.73 sq m ESTIMATED GFR IS NOT ctbz=7112) ACCURATE CREATININE CLEARANCE IN PREDICTING GLOMERULAR FILTRATION RATE. ESTIMATED GFR IS NOT APPLICABLE FOR DIALYSIS PATIENTS. LIPID [id number] 03:55:00 Test Item Value Reference Range Comments TRIGLYCERIDES (BEAKER) (test kbbr=498) 133 mg/dL CHOLESTEROL (BEAKER) (test wceb=120) 108 mg/dL HDL CHOLESTEROL (BEAKER) (test hgra=183) 25 mg/dL LDL CHOLESTEROL CALCULATED (BEAKER) (test 56 mg/dL fscg=621) Triglyceride Reference Range: Low Risk <150 Borderline 150- 199 High Risk 200-499 Very High Risk >=500Cholesterol Reference Range: Low Risk <200 Borderline 200-239 High Risk > 240HDL Cholesterol Reference Range: Low Risk >=60 High Risk <40LDL Cholesterol Reference Range: Optimal <100 Near Optimal 100-129 Borderline 130-159 High 160-189 Very High >=190HEPATIC FUNCTION [id number] 03:55:00 Test Item Value Reference Range Comments TOTAL PROTEIN (BEAKER) (test ayzl=867) 7.2 gm/dL 6.0-8.3 ALBUMIN (BEAKER) (test jwil=4875) 3.8 g/dL 3.5-5.0 BILIRUBIN TOTAL (BEAKER) (test vukg=341) 0.4 mg/dL 0.2-1.2 BILIRUBIN DIRECT (BEAKER) (test kwhi=637) 0.2 mg/dL 0.1-0.5 ALKALINE PHOSPHATASE (BEAKER) (test xlrc=703) 68 U/L 40-150 AST (SGOT) (BEAKER) (test okgx=996) 19 U/L 5-34 ALT (SGPT) (BEAKER) (test iabk=998) 9 U/L 6-55 CBC W/PLT COUNT & AUTO [id number] 03:42:00 Test Item Value Reference Range Comments WHITE BLOOD CELL COUNT (BEAKER) (test cgzl=122) 3.9 K/ L 3.5-10.5 RED BLOOD CELL COUNT (BEAKER) (test jsup=362) 3.40 M/ L 4.63-6.08 HEMOGLOBIN (BEAKER) (test zgii=033) 9.5 GM/DL 13.7-17.5 HEMATOCRIT (BEAKER) (test eyog=288) 30.0 % 40.1-51.0 MEAN CORPUSCULAR VOLUME (BEAKER) (test bvrp=015) 88.2 fL 79.0-92.2 MEAN CORPUSCULAR HEMOGLOBIN (BEAKER) (test 27.9 pg 25.7-32.2 pwar=661) MEAN CORPUSCULAR HEMOGLOBIN CONC (BEAKER) (test 31.7 GM/DL 32.3-36.5 xwpx=187) RED CELL DISTRIBUTION WIDTH (BEAKER) (test 14.9 % 11.6-14.4 ywkz=225) PLATELET COUNT (BEAKER) (test tjot=457) 133 K/CU MM 150-450 MEAN PLATELET VOLUME (BEAKER) (test damk=954) 9.4 fL 9.4-12.4 NUCLEATED RED BLOOD CELLS (BEAKER) (test 0 /100 WBC 0-0 bkbu=537) NEUTROPHILS RELATIVE PERCENT (BEAKER) (test 50 % qsab=477) LYMPHOCYTES RELATIVE PERCENT (BEAKER) (test 38 % wtnp=041) MONOCYTES RELATIVE PERCENT (BEAKER) (test 9 % mkwg=895) EOSINOPHILS RELATIVE PERCENT (BEAKER) (test 3 % sfhl=598) BASOPHILS RELATIVE PERCENT (BEAKER) (test 0 % olhf=993) NEUTROPHILS ABSOLUTE COUNT (BEAKER) (test 1.92 K/ L 1.78-5.38 sgwc=425) LYMPHOCYTES ABSOLUTE COUNT (BEAKER) (test 1.46 K/ L 1.32-3.57 gkob=813) MONOCYTES ABSOLUTE COUNT (BEAKER) (test 0.35 K/ L 0.30-0.82 tevh=399) EOSINOPHILS ABSOLUTE COUNT (BEAKER) (test 0.10 K/ L 0.04-0.54 zdjm=625) BASOPHILS ABSOLUTE COUNT (BEAKER) (test 0.01 K/ L 0.01-0.08 wmxw=272) IMMATURE GRANULOCYTES-RELATIVE PERCENT (BEAKER) 0 % 0-1 (test sxwd=0257) BASIC METABOLIC [id number] 11:50:00 Test Item Value Reference Range Comments SODIUM (BEAKER) (test 138 meq/L 136-145 dkgw=677) POTASSIUM (BEAKER) (test 4.2 meq/L 3.5-5.1 volc=312) CHLORIDE (BEAKER) (test 106 meq/L 98-107 fqqh=831) CO2 (BEAKER) (test 24 meq/L 22-29 zfbd=393) BLOOD UREA NITROGEN 20 mg/dL 7-21 (BEAKER) (test lmnb=393) CREATININE (BEAKER) (test 1.03 mg/dL 0.57-1.25 ytlj=128) GLUCOSE RANDOM (BEAKER) 125 mg/dL 70-105 (test iljo=992) CALCIUM (BEAKER) (test 9.6 mg/dL 8.4-10.2 cbuw=051) EGFR (BEAKER) (test 71 mL/min/1.73 sq m ESTIMATED GFR IS NOT fxmt=2965) ACCURATE CREATININE CLEARANCE IN PREDICTING GLOMERULAR FILTRATION RATE. ESTIMATED GFR IS NOT APPLICABLE FOR DIALYSIS PATIENTS. [id number] 11:32:00 Test Item Value Reference Range Comments PARTIAL THROMBOPLASTIN TIME (BEAKER) (test 30.9 seconds 22.5-36.0 hebz=509) PROTHROMBIN [id number] 11:31:00 Test Item Value Reference Range Comments PROTIME (BEAKER) (test vjdq=555) 13.6 seconds 11.7-14.7 INR (BEAKER) (test exta=289) 1.0 <=5.9 RECOMMENDED COUMADIN/WARFARIN INR THERAPY RANGESSTANDARD DOSE: 2.0 - 3.0 Includes: PROPHYLAXIS forvenous thrombosis, systemic embolization; TREATMENT for venous thrombosis and/or pulmonary embolus.HIGH RISK: Target INR is 2.5-3.5 for patients with mechanical heart valves.CBC W/PLT COUNT & AUTO [id number] 11:22:00 Test Item Value Reference Range Comments WHITE BLOOD CELL COUNT (BEAKER) (test eqoo=258) 3.8 K/ L 3.5-10.5 RED BLOOD CELL COUNT (BEAKER) (test rnpk=921) 3.54 M/ L 4.63-6.08 HEMOGLOBIN (BEAKER) (test ngyv=643) 9.7 GM/DL 13.7-17.5 HEMATOCRIT (BEAKER) (test edgy=591) 31.9 % 40.1-51.0 MEAN CORPUSCULAR VOLUME (BEAKER) (test prwg=649) 90.1 fL 79.0-92.2 MEAN CORPUSCULAR HEMOGLOBIN (BEAKER) (test 27.4 pg 25.7-32.2 uwvi=931) MEAN CORPUSCULAR HEMOGLOBIN CONC (BEAKER) (test 30.4 GM/DL 32.3-36.5 tzqt=504) RED CELL DISTRIBUTION WIDTH (BEAKER) (test 14.9 % 11.6-14.4 psbx=191) PLATELET COUNT (BEAKER) (test gxje=124) 131 K/CU MM 150-450 MEAN PLATELET VOLUME (BEAKER) (test yzcc=916) 9.2 fL 9.4-12.4 NUCLEATED RED BLOOD CELLS (BEAKER) (test 0 /100 WBC 0-0 izyd=514) NEUTROPHILS RELATIVE PERCENT (BEAKER) (test 51 % zarn=773) LYMPHOCYTES RELATIVE PERCENT (BEAKER) (test 36 % amzs=473) MONOCYTES RELATIVE PERCENT (BEAKER) (test 10 % pzmq=925) EOSINOPHILS RELATIVE PERCENT (BEAKER) (test 3 % juwf=489) BASOPHILS RELATIVE PERCENT (BEAKER) (test 0 % vjyc=104) NEUTROPHILS ABSOLUTE COUNT (BEAKER) (test 1.94 K/ L 1.78-5.38 pmbn=801) LYMPHOCYTES ABSOLUTE COUNT (BEAKER) (test 1.35 K/ L 1.32-3.57 zpwb=454) MONOCYTES ABSOLUTE COUNT (BEAKER) (test 0.37 K/ L 0.30-0.82 iusx=359) EOSINOPHILS ABSOLUTE COUNT (BEAKER) (test 0.10 K/ L 0.04-0.54 yobf=056) BASOPHILS ABSOLUTE COUNT (BEAKER) (test 0.01 K/ L 0.01-0.08 ecvz=985) IMMATURE GRANULOCYTES-RELATIVE PERCENT (BEAKER) 0 % 0-1 (test glxp=8570) TISSUE [id number] 16:07:00Surgical Pathology Report Case: [id number] Authorizing Provider: Antonio Weir MD Collected: 07/28/2018 1122 Ordering Location: [address] Received: 07/28/2018 1455 Service Pathologist: Franki Ku MD Specimen: Kidney, Left KIDNEY, LEFT, BIOPSY OF MASS- 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 Some parts of the tumor have prominent eosinophiliccytoplasm. INTRADEPARTMENTAL CONSULTATION: - Tono Lundy MD has seen the case and agrees withthe diagnosis.[id number] renal mass 7.2 x 5.1 x 6.0 cmLeft hoh renal biopsyThe specimen is received in a formalin-filled container labeled with the patient's information and labeled "left hoh renal biopsy" and consists of multiple couch-red core biopsies ranging from 0.1 to 1.5 cm, submitted entirely in A1. CG/ew Performed.The interpretation of this case included the use of immunohistochemistry orspecial stains. Immunohistochemistry technical testing was performed at [facility], Pathology Laboratory where it was developed and its performance characteristics were determined. It has not been cleared or approved by the U.S. Food and Drug Administration. The FDA has determined that such clearance or approval is not necessary. The test is used for clinical purposes. It shouldnot be regarded as investigational or for research. This laboratory is certified under the Clinical Laboratory Improvement Amendments of 1988 (CLIA-88) as qualified to perform high complexity clinical laboratory testing.RAD, KNEE, 1 OR 2 VIEWS, [id number] 12:35:00Reason for exam:->possible cancer seen on bone scanFINAL REPORT Left knee dated 07/29/2018 Comment: To views of the left knee weresubmitted for interpretation. No fracture, dislocation, or subluxation [...] changes in the left knee. Signed: Sherif Garzaeport Verified Date/Time: 05/2018 12:35:32 Reading Location: [facility] B[facility] C013W Consult Reading Room POCT-GLUCOSE [id number] 13:11:00 Test Item Value Reference Range Comments POC-GLUCOSE METER (BEAKER) 118 mg/dL 70-110 TESTED AT [address] (test imlr=0795) [facility] [address] U/S, BIOPSY, RENAL (KIDNEY)2018-07-28 11:52:00Reason for exam:->L renal mass , please biopsyFINAL REPORT INDICATION:68-year-old male with left renal mass. Request for percutaneous image guided core biopsy. TECHNIQUE:Ultrasound-guided core biopsy of left renal mass. COMPARISON:CT July 24, 2018 FINDINGS: The procedure was explained to the patient and informed consent was signed. The patient was positioned supine oblique and preliminary images confirmed a window to the8 cm mass of the left kidney demonstrated on recent CT exam. Timeout was performed. To sedate the patient Versed and Fentanyl were administered, as described below. The patient's skin was prepped and draped in standard sterile fashion. 2% lidocaine was used for local anesthesia. Using left posterolateral approach and ultrasound guidance, a 18- gauge biopsy device was advanced into the left renal mass. A core biopsy was obtained and placed in formalin. An additional four core biopsies were acquired in place in the same formalin. Core biopsies were sent to pathology. Post procedure image showed no hematoma. Patient tolerated procedure well and was transferred back to his hospital room. PROCEDURAL SEDATION:Procedural sedation was used with Versed 1.0 mg IV and Fentanyl 50 mcg IV administered. The department of radiology nurse was present at the time of procedure. Monitored cardiorespiratory function during conscious sedation was performed under the radiologist's supervision. Total monitoring time was approximately 45 minutes. IMPRESSION: Ultrasound-guided core biopsy of the left renal mass without complication. Signed: Tommy Cheneport Verified Date/Time: 07/28/2018 11:52:52 Reading Location: [facility] B1 P006J Ultrasound Reading Room POCT-GLUCOSE [id number] 08:38:00 Test Item Value Reference Range Comments POC-GLUCOSE METER (BEAKER) 128 mg/dL 70-110 TESTED AT [facility] [address] [facility] (test xdrc=9425) [facility] [address] BASIC METABOLIC [id number] 06:31:00 Test Item Value Reference Range Comments SODIUM (BEAKER) (test 137 meq/L 136-145 eogm=387) POTASSIUM (BEAKER) (test 4.1 meq/L 3.5-5.1 nsks=076) CHLORIDE (BEAKER) (test 104 meq/L 98-107 wlgf=637) CO2 (BEAKER) (test 25 meq/L 22-29 fvtj=241) BLOOD UREA NITROGEN 26 mg/dL 7-21 (BEAKER) (test ejpl=871) CREATININE (BEAKER) (test 0.92 mg/dL 0.57-1.25 rbci=075) GLUCOSE RANDOM (BEAKER) 138 mg/dL 70-105 (test hvtv=421) CALCIUM (BEAKER) (test 9.9 mg/dL 8.4-10.2 makd=859) EGFR (BEAKER) (test 81 mL/min/1.73 sq m ESTIMATED GFR IS NOT xztj=4142) ACCURATE CREATININE CLEARANCE IN PREDICTING GLOMERULAR FILTRATION RATE. ESTIMATED GFR IS NOT APPLICABLE FOR DIALYSIS PATIENTS. [id number] 05:25:00 Test Item Value Reference Range Comments PROTIME (BEAKER) (test wprw=189) 13.2 seconds 11.7-14.7 INR (BEAKER) (test aofq=112) 1.0 <=5.9 PARTIAL THROMBOPLASTIN TIME (BEAKER) (test 33.2 seconds 22.5-36.0 efch=708) RECOMMENDED COUMADIN/WARFARIN INR THERAPY RANGESSTANDARD DOSE: 2.0 - 3.0 Includes: PROPHYLAXIS forvenous thrombosis, systemic embolization; TREATMENT for venous thrombosis and/or pulmonary embolus.HIGH RISK: Target INR is 2.5-3.5 for patients with mechanical heart valves.CBC W/PLT COUNT & AUTO [id number] 04:57:00 Test Item Value Reference Range Comments WHITE BLOOD CELL COUNT (BEAKER) (test rnas=402) 4.4 K/ L 3.5-10.5 RED BLOOD CELL COUNT (BEAKER) (test pyir=830) 3.72 M/ L 4.63-6.08 HEMOGLOBIN (BEAKER) (test gvoj=611) 10.4 GM/DL 13.7-17.5 HEMATOCRIT (BEAKER) (test qzno=673) 33.6 % 40.1-51.0 MEAN CORPUSCULAR VOLUME (BEAKER) (test xgwn=929) 90.3 fL 79.0-92.2 MEAN CORPUSCULAR HEMOGLOBIN (BEAKER) (test 28.0 pg 25.7-32.2 eqor=669) MEAN CORPUSCULAR HEMOGLOBIN CONC (BEAKER) (test 31.0 GM/DL 32.3-36.5 pixx=199) RED CELL DISTRIBUTION WIDTH (BEAKER) (test 14.8 % 11.6-14.4 iqcc=268) PLATELET COUNT (BEAKER) (test sacg=460) 200 K/CU MM 150-450 MEAN PLATELET VOLUME (BEAKER) (test chgc=035) 9.2 fL 9.4-12.4 NUCLEATED RED BLOOD CELLS (BEAKER) (test 0 /100 WBC 0-0 gzds=136) NEUTROPHILS RELATIVE PERCENT (BEAKER) (test 39 % anrj=980) LYMPHOCYTES RELATIVE PERCENT (BEAKER) (test 47 % wfqu=276) MONOCYTES RELATIVE PERCENT (BEAKER) (test 9 % icdo=681) EOSINOPHILS RELATIVE PERCENT (BEAKER) (test 3 % adrw=278) BASOPHILS RELATIVE PERCENT (BEAKER) (test 1 % fveg=429) NEUTROPHILS ABSOLUTE COUNT (BEAKER) (test 1.73 K/ L 1.78-5.38 lqtf=123) LYMPHOCYTES ABSOLUTE COUNT (BEAKER) (test 2.09 K/ L 1.32-3.57 rwkm=602) MONOCYTES ABSOLUTE COUNT (BEAKER) (test 0.40 K/ L 0.30-0.82 zqij=842) EOSINOPHILS ABSOLUTE COUNT (BEAKER) (test 0.15 K/ L 0.04-0.54 wayz=294) BASOPHILS ABSOLUTE COUNT (BEAKER) (test 0.02 K/ L 0.01-0.08 vqkx=915) IMMATURE GRANULOCYTES-RELATIVE PERCENT (BEAKER) 1 % 0-1 (test tdto=6761) POCT-GLUCOSE [id number] 22:16:00 Test Item Value Reference Range Comments POC-GLUCOSE METER (BEAKER) 140 mg/dL 70-110 TESTED AT [address] (test upro=6035) [place] [id number] BONE AND/OR JOINT IMAGING, WHOLE [id number] 20:29:00FINAL REPORT PROCEDURE: BONE SCAN, WHOLE BODY CPT CODE: [id number] INDICATION: Renal masses pelvic mass concerning for [...] crests. There is a focal rib lesion inthe left third rib anteriorly IMPRESSION: Abnormal whole body bone scan. The exam is suspicious for metastatic disease involving the right pelvis and left knee.The facial finding is suspicious for periodontal disease the other findings are consistent with arthritic changes. Images for comparison/correlation were CT of the abdomen and pelvis from July 24, 2018. Signed: Dillon [facility] Verified Date/Time: 07/27/2018 20:29:10 Electronically signed by: DILLON PRATHER MD on 08:29 PMPOCT-GLUCOSE [id number] 18:46:00 Test Item Value Reference Range Comments POC-GLUCOSE METER (BEAKER) 115 mg/dL 70-110 TESTED AT [address] (test nvma=8369) [place] [id number] POCT-GLUCOSE [id number] 14:03:00 Test Item Value Reference Range Comments POC-GLUCOSE METER (BEAKER) 141 mg/dL 70-110 TESTED AT [address] (test faxs=3922) [place] [address] POCT-GLUCOSE [id number] 09:27:00 Test Item Value Reference Range Comments POC-GLUCOSE METER (BEAKER) 138 mg/dL 70-110 TESTED AT [address] (test pidc=3872) [place] [address] POCT-GLUCOSE [id number] 08:49:00 Test Item Value Reference Range Comments POC-GLUCOSE METER (BEAKER) 204 mg/dL 70-110 TESTED AT [address] (test gcox=5469) [place] [address] POCT-GLUCOSE [id number] 18:45:00 Test Item Value Reference Range Comments POC-GLUCOSE METER (BEAKER) 104 mg/dL 70-110 TESTED AT [address] (test pwmw=1701) [place] [address] HEPATIC FUNCTION [id number] 07:52:00 Test Item Value Reference Range Comments TOTAL PROTEIN (BEAKER) (test iokf=948) 7.0 gm/dL 6.0-8.3 ALBUMIN (BEAKER) (test afxl=3560) 3.6 g/dL 3.5-5.0 BILIRUBIN TOTAL (BEAKER) (test mwni=574) 0.4 mg/dL 0.2-1.2 BILIRUBIN DIRECT (BEAKER) (test qfol=593) 0.2 mg/dL 0.1-0.5 ALKALINE PHOSPHATASE (BEAKER) (test akqt=994) 76 U/L 40-150 AST (SGOT) (BEAKER) (test ayfj=085) 18 U/L 5-34 ALT (SGPT) (BEAKER) (test itoi=240) 14 U/L 6-55 POCT-GLUCOSE [id number] 06:11:00 Test Item Value Reference Range Comments POC-GLUCOSE METER (BEAKER) 144 mg/dL 70-110 TESTED AT [address] (test gyzw=1354) [place] [id number] POCT-GLUCOSE [id number] 22:55:00 Test Item Value Reference Range Comments POC-GLUCOSE METER (BEAKER) 187 mg/dL 70-110 TESTED AT [address] (test dkvd=6164) [place] [id number] VITAMIN B12 AND [id number] 16:34:00 Test Item Value Reference Range Comments VITAMIN B12 (BEAKER) (test svai=159) 1244 pg/mL 213-816 FOLATE (BEAKER) (test ubyj=275) 5.1 ng/mL >=7.0 HEMOGLOBIN [id number] 10:21:00 Test Item Value Reference Range Comments HEMOGLOBIN A1C (BEAKER) (test dtru=494) 4.5 % 4.3-6.1 CBC W/PLT COUNT & AUTO [id number] 07:02:00 Test Item Value Reference Range Comments WHITE BLOOD CELL COUNT (BEAKER) (test twfe=810) 4.6 K/ L 3.5-10.5 RED BLOOD CELL COUNT (BEAKER) (test iyuj=523) 3.50 M/ L 4.63-6.08 HEMOGLOBIN (BEAKER) (test dwjh=227) 9.7 GM/DL 13.7-17.5 HEMATOCRIT (BEAKER) (test saba=771) 30.6 % 40.1-51.0 MEAN CORPUSCULAR VOLUME (BEAKER) (test neps=840) 87.4 fL 79.0-92.2 MEAN CORPUSCULAR HEMOGLOBIN (BEAKER) (test 27.7 pg 25.7-32.2 zekx=437) MEAN CORPUSCULAR HEMOGLOBIN CONC (BEAKER) (test 31.7 GM/DL 32.3-36.5 cnut=826) RED CELL DISTRIBUTION WIDTH (BEAKER) (test 14.7 % 11.6-14.4 bblk=737) PLATELET COUNT (BEAKER) (test zqkm=818) 171 K/CU MM 150-450 MEAN PLATELET VOLUME (BEAKER) (test nmwl=012) 9.5 fL 9.4-12.4 NUCLEATED RED BLOOD CELLS (BEAKER) (test 0 /100 WBC 0-0 auoc=756) NEUTROPHILS RELATIVE PERCENT (BEAKER) (test 44 % zevh=644) LYMPHOCYTES RELATIVE PERCENT (BEAKER) (test 45 % rmfe=788) MONOCYTES RELATIVE PERCENT (BEAKER) (test 8 % nbin=776) EOSINOPHILS RELATIVE PERCENT (BEAKER) (test 3 % qhpv=552) BASOPHILS RELATIVE PERCENT (BEAKER) (test 0 % ddxi=525) NEUTROPHILS ABSOLUTE COUNT (BEAKER) (test 2.01 K/ L 1.78-5.38 bnqt=259) LYMPHOCYTES ABSOLUTE COUNT (BEAKER) (test 2.07 K/ L 1.32-3.57 ngne=442) MONOCYTES ABSOLUTE COUNT (BEAKER) (test 0.36 K/ L 0.30-0.82 fzjl=712) EOSINOPHILS ABSOLUTE COUNT (BEAKER) (test 0.13 K/ L 0.04-0.54 fogt=975) BASOPHILS ABSOLUTE COUNT (BEAKER) (test 0.02 K/ L 0.01-0.08 aubt=351) IMMATURE GRANULOCYTES-RELATIVE PERCENT (BEAKER) 0 % 0-1 (test lwcz=8625) [id number] 06:53:00 Test Item Value Reference Range Comments FERRITIN (BEAKER) (test fvpx=937) 283 ng/mL 5-275 IRON, TIBC, % SAT. (WITHOUT FERRITIN)2018-07-25 06:31:00 Test Item Value Reference Range Comments IRON (BEAKER) (test roqg=867) 56.0 ug/dL 40.0-160.0 TOTAL IRON BINDING CAPACITY (BEAKER) (test 296 ug/dL 250-450 nukg=521) IRON % SATURATION (2) (BEAKER) (test jjgy=4199) 19 % 20-55 BASIC METABOLIC [id number] 06:12:00 Test Item Value Reference Range Comments SODIUM (BEAKER) (test 139 meq/L 136-145 nbvw=973) POTASSIUM (BEAKER) (test 4.0 meq/L 3.5-5.1 Specimen slightly bbog=645) hemolyzed CHLORIDE (BEAKER) (test 103 meq/L 98-107 kdsm=021) CO2 (BEAKER) (test 26 meq/L 22-29 gjqt=024) BLOOD UREA NITROGEN 19 mg/dL 7-21 (BEAKER) (test xafc=041) CREATININE (BEAKER) (test 0.83 mg/dL 0.57-1.25 Specimen slightly euzd=004) hemolyzed GLUCOSE RANDOM (BEAKER) 107 mg/dL 70-105 (test clmn=715) CALCIUM (BEAKER) (test 10.1 mg/dL 8.4-10.2 ulgb=762) EGFR (BEAKER) (test 92 mL/min/1.73 sq m ESTIMATED GFR IS NOT sjoy=6230) ACCURATE CREATININE CLEARANCE IN PREDICTING GLOMERULAR FILTRATION RATE. ESTIMATED GFR IS NOT APPLICABLE FOR DIALYSIS PATIENTS. CT, CHEST, WITH [id number] 21:44:00FINAL REPORT CT of the Chest, abdomen and [...] vessels are unremarkable. Nonspecific lymph nodes are seenin the paratracheal, subcarinal, and prevascular mediastinum. The largest lymph node measures approximately 1.0 x 1.3 cm.. Trachea and mainstem bronchi are patent. Both lungs are clear. No nodular, mass lesion or airspace disease is noted. No interstitial disease or bronchiectasis is present. No pleural effusion or pleural based mass is seen. Liver and spleen are normal in size. No focal lesion isseen in the liver or the spleen. Gallbladder [...] is seen in the abdominal aorta and bilateraliliac arteries. A soft tissue mass is seen in the right pelvis measuring approximately 8.2 x 9.9 cm.There is erosion of the right ilium. Impression: 1. Left renal mass.2. Mass lesion in the right pelvis with erosion of the right ilium suspicious for metastasis.3. Nonspecific mediastinal lymph nodes.4. Prostate enlargement.5. Right renal stone without hydronephrosis or hydroureter. Signed: Sherif Garza MDReport Verified Date/Time: 07/24/2018 21:44:37 Reading Location: [facility] [id number] Consult Reading Room CT, [id number] 21:44:00FINAL REPORT CT of the Chest, abdomen and pelvis dated 07/24/2018 Clinical information: eval for metastatic disease Comment: Axial images of the chest, abdomen, and pelvis were obtained from thoracic inlet to the pubic symphysis with GI and intravenous contrast contrast. This exam was performed according to our departmental dose- optimization program, which includes automated exposure control, adjustment of the mA and/or kV according to patient size and/or use of interactive reconstruction technique. Heart is normal in size. Atherosclerotic calcification is seen in the thoracic aorta and coronary arteries. Great vessels are unremarkable. Nonspecific lymph nodes are seenin the paratracheal, subcarinal, and prevascular mediastinum. The largest lymph node measures approximately 1.0 x 1.3 cm.. Trachea and mainstem bronchi are patent. Both lungs are clear. No nodular, mass lesion or airspace disease is noted. No interstitial disease or bronchiectasis is present. No pleural effusion or pleural based mass is seen. Liver and spleen are normal in size. No focal lesion isseen in the liver or the spleen. Gallbladder [...] is seen in the abdominal aorta and bilateraliliac arteries. A soft tissue mass is seen in the right pelvis measuring approximately 8.2 x 9.9 cm.There is erosion of the right ilium. Impression: 1. Left renal mass.2. Mass lesion in the right pelvis with erosion of the right ilium suspicious for metastasis.3. Nonspecific mediastinal lymph nodes.4. Prostate enlargement.5. Right renal stone without hydronephrosis or hydroureter. Signed: Sherif Garzaeport Verified Date/Time: 07/24/2018 21:44:37 Reading Location: [address] Consult Reading Room POCT-GLUCOSE [id number] 21:35:00 Test Item Value Reference Range Comments POC-GLUCOSE METER (BEAKER) 104 mg/dL 70-110 TESTED AT [address] (test xjeo=9539) [place] [address] POCT-GLUCOSE [id number] 17:53:00 Test Item Value Reference Range Comments POC-GLUCOSE METER (BEAKER) 163 mg/dL 70-110 TESTED AT [address] (test rnxw=6293) [place] [address] URINALYSIS W/ REFLEX URINE [id number] 17:22:00 Test Item Value Reference Range Comments COLOR (BEAKER) (test akfn=516) Yellow CLARITY (BEAKER) (test twko=235) Clear SPECIFIC GRAVITY UA (BEAKER) (test ynni=235) 1.022 1.001-1.035 PH UA (BEAKER) (test gnqb=226) 6.0 5.0-8.0 PROTEIN UA (BEAKER) (test uyoj=540) 50 mg/dL Negative GLUCOSE UA (BEAKER) (test tjnk=501) Negative Negative KETONES UA (BEAKER) (test msvn=401) Negative Negative BILIRUBIN UA (BEAKER) (test dnev=549) Negative Negative BLOOD UA (BEAKER) (test bzfe=220) Negative Negative NITRITE UA (BEAKER) (test awpo=552) Negative Negative LEUKOCYTE ESTERASE UA (BEAKER) (test rvvm=260) Negative Negative UROBILINOGEN UA (BEAKER) (test mxej=614) 0.2 mg/dL 0.2-1.0 RBC UA (BEAKER) (test xstv=128) < /HPF WBC UA (BEAKER) (test xyxl=141) < /HPF MUCUS (BEAKER) (test vosh=5416) Few SOURCE(BEAKER) (test lcyu=4025) POCT-GLUCOSE [id number] 10:06:00 Test Item Value Reference Range Comments POC-GLUCOSE METER (BEAKER) 121 mg/dL 70-110 TESTED AT [address] (test sfcc=5663) [place] [address] BASIC METABOLIC [id number] 05:47:00 Test Item Value Reference Range Comments SODIUM (BEAKER) (test 139 meq/L 136-145 hgyk=546) POTASSIUM (BEAKER) (test 3.9 meq/L 3.5-5.1 yehm=700) CHLORIDE (BEAKER) (test 105 meq/L 98-107 snwg=729) CO2 (BEAKER) (test 26 meq/L 22-29 xjse=830) BLOOD UREA NITROGEN 21 mg/dL 7-21 (BEAKER) (test gpxi=412) CREATININE (BEAKER) (test 0.84 mg/dL 0.57-1.25 uwyg=790) GLUCOSE RANDOM (BEAKER) 116 mg/dL 70-105 (test nshr=867) CALCIUM (BEAKER) (test 9.8 mg/dL 8.4-10.2 eqkm=934) EGFR (BEAKER) (test 90 mL/min/1.73 sq m ESTIMATED GFR IS NOT tdbd=3247) ACCURATE CREATININE CLEARANCE IN PREDICTING GLOMERULAR FILTRATION RATE. ESTIMATED GFR IS NOT APPLICABLE FOR DIALYSIS PATIENTS. CBC W/PLT COUNT & AUTO [id number] 05:38:00 Test Item Value Reference Range Comments WHITE BLOOD CELL COUNT (BEAKER) (test nold=298) 4.6 K/ L 3.5-10.5 RED BLOOD CELL COUNT (BEAKER) (test odxh=849) 3.63 M/ L 4.63-6.08 HEMOGLOBIN (BEAKER) (test uzwo=545) 10.0 GM/DL 13.7-17.5 HEMATOCRIT (BEAKER) (test hpnv=759) 31.8 % 40.1-51.0 MEAN CORPUSCULAR VOLUME (BEAKER) (test tquq=646) 87.6 fL 79.0-92.2 MEAN CORPUSCULAR HEMOGLOBIN (BEAKER) (test 27.5 pg 25.7-32.2 mrqu=952) MEAN CORPUSCULAR HEMOGLOBIN CONC (BEAKER) (test 31.4 GM/DL 32.3-36.5 nhcs=081) RED CELL DISTRIBUTION WIDTH (BEAKER) (test 14.4 % 11.6-14.4 yuxo=401) PLATELET COUNT (BEAKER) (test xtzr=394) 154 K/CU MM 150-450 MEAN PLATELET VOLUME (BEAKER) (test ylvr=911) 9.6 fL 9.4-12.4 NUCLEATED RED BLOOD CELLS (BEAKER) (test 0 /100 WBC 0-0 xdsp=447) NEUTROPHILS RELATIVE PERCENT (BEAKER) (test 43 % akue=405) LYMPHOCYTES RELATIVE PERCENT (BEAKER) (test 45 % gauk=753) MONOCYTES RELATIVE PERCENT (BEAKER) (test 9 % miup=955) EOSINOPHILS RELATIVE PERCENT (BEAKER) (test 2 % eyvu=625) BASOPHILS RELATIVE PERCENT (BEAKER) (test 0 % zekr=204) NEUTROPHILS ABSOLUTE COUNT (BEAKER) (test 1.96 K/ L 1.78-5.38 nibp=434) LYMPHOCYTES ABSOLUTE COUNT (BEAKER) (test 2.03 K/ L 1.32-3.57 kpgg=497) MONOCYTES ABSOLUTE COUNT (BEAKER) (test 0.42 K/ L 0.30-0.82 yqew=568) EOSINOPHILS ABSOLUTE COUNT (BEAKER) (test 0.11 K/ L 0.04-0.54 sbuy=581) BASOPHILS ABSOLUTE COUNT (BEAKER) (test 0.02 K/ L 0.01-0.08 vmuq=506) IMMATURE GRANULOCYTES-RELATIVE PERCENT (BEAKER) 0 % 0-1 (test rwky=0925) POCT-GLUCOSE [id number] 21:46:00 Test Item Value Reference Range Comments POC-GLUCOSE METER (BEAKER) 144 mg/dL 70-110 TESTED AT [address] (test tjxj=0933) [place] [address] POCT-GLUCOSE [id number] 12:41:00 Test Item Value Reference Range Comments POC-GLUCOSE METER (BEAKER) 141 mg/dL 70-110 TESTED AT [address] (test emql=6399) [place] [address] CBC W/PLT COUNT & AUTO [id number] 05:23:00 Test Item Value Reference Range Comments WHITE BLOOD CELL COUNT (BEAKER) (test kodk=435) 4.2 K/ L 3.5-10.5 RED BLOOD CELL COUNT (BEAKER) (test cozu=366) 3.62 M/ L 4.63-6.08 HEMOGLOBIN (BEAKER) (test ospn=293) 10.0 GM/DL 13.7-17.5 HEMATOCRIT (BEAKER) (test wupa=068) 31.6 % 40.1-51.0 MEAN CORPUSCULAR VOLUME (BEAKER) (test auql=798) 87.3 fL 79.0-92.2 MEAN CORPUSCULAR HEMOGLOBIN (BEAKER) (test 27.6 pg 25.7-32.2 eyqn=336) MEAN CORPUSCULAR HEMOGLOBIN CONC (BEAKER) (test 31.6 GM/DL 32.3-36.5 ztoz=075) RED CELL DISTRIBUTION WIDTH (BEAKER) (test 14.4 % 11.6-14.4 rkcr=388) PLATELET COUNT (BEAKER) (test mfqn=617) 139 K/CU MM 150-450 MEAN PLATELET VOLUME (BEAKER) (test ocam=753) 9.8 fL 9.4-12.4 NUCLEATED RED BLOOD CELLS (BEAKER) (test 0 /100 WBC 0-0 lukk=361) NEUTROPHILS RELATIVE PERCENT (BEAKER) (test 43 % gzoi=953) LYMPHOCYTES RELATIVE PERCENT (BEAKER) (test 44 % akfb=024) MONOCYTES RELATIVE PERCENT (BEAKER) (test 10 % hlkl=311) EOSINOPHILS RELATIVE PERCENT (BEAKER) (test 2 % awbi=646) BASOPHILS RELATIVE PERCENT (BEAKER) (test 1 % xsjd=706) NEUTROPHILS ABSOLUTE COUNT (BEAKER) (test 1.79 K/ L 1.78-5.38 tpaa=714) LYMPHOCYTES ABSOLUTE COUNT (BEAKER) (test 1.84 K/ L 1.32-3.57 ylwr=827) MONOCYTES ABSOLUTE COUNT (BEAKER) (test 0.41 K/ L 0.30-0.82 gugs=199) EOSINOPHILS ABSOLUTE COUNT (BEAKER) (test 0.08 K/ L 0.04-0.54 xgrh=441) BASOPHILS ABSOLUTE COUNT (BEAKER) (test 0.02 K/ L 0.01-0.08 pvnl=669) IMMATURE GRANULOCYTES-RELATIVE PERCENT (BEAKER) 1 % 0-1 (test gldr=8626) BASIC METABOLIC [id number] 05:22:00 Test Item Value Reference Range Comments SODIUM (BEAKER) (test 140 meq/L 136-145 dodg=339) POTASSIUM (BEAKER) (test 3.5 meq/L 3.5-5.1 jisx=450) CHLORIDE (BEAKER) (test 105 meq/L 98-107 nsym=657) CO2 (BEAKER) (test 25 meq/L 22-29 ryae=165) BLOOD UREA NITROGEN 19 mg/dL 7-21 (BEAKER) (test siui=168) CREATININE (BEAKER) (test 0.89 mg/dL 0.57-1.25 xsxe=548) GLUCOSE RANDOM (BEAKER) 134 mg/dL 70-105 (test kdri=417) CALCIUM (BEAKER) (test 9.9 mg/dL 8.4-10.2 lfse=678) EGFR (BEAKER) (test 85 mL/min/1.73 sq m ESTIMATED GFR IS NOT yltb=7039) ACCURATE CREATININE CLEARANCE IN PREDICTING GLOMERULAR FILTRATION RATE. ESTIMATED GFR IS NOT APPLICABLE FOR DIALYSIS PATIENTS. PROTHROMBIN [id number] 05:15:00 Test Item Value Reference Range Comments PROTIME (BEAKER) (test kpuq=313) 13.1 seconds 11.7-14.7 INR (BEAKER) (test aecq=374) 1.0 <=5.9 RECOMMENDED COUMADIN/WARFARIN INR THERAPY RANGESSTANDARD DOSE: 2.0 - 3.0 Includes: PROPHYLAXIS forvenous thrombosis, systemic embolization; TREATMENT for venous thrombosis and/or pulmonary embolus.HIGH RISK: Target INR is 2.5-3.5 for patients with mechanical heart valves.POCT-GLUCOSE [id number] 00:12:00 Test Item Value Reference Range Comments POC-GLUCOSE METER (BEAKER) 121 mg/dL 70-110 TESTED AT [facility] [address] (test dczu=2532) [facility] [address]
[2018-08-25] MEDS ORDERED: GLUCAGON 1 MG/VIAL IM PRN (19:21)
[2018-08-25] MEDS ORDERED: D50W 25 GM/50 ML SYRINGE IV PRN (19:21)
[2018-08-25] MEDS: ENOXAPARIN 40 MG/0.4 ML SQ SCH (19:22)
[2018-08-25] MEDS: METOPROLOL TAR 50 MG TAB PO SCH (19:49)
[2018-08-25] MEDS: INSULIN -REGULAR HUMAN 50 UNIT/0.5 ML ML SQ SCH (20:09)
[2018-08-25 20:48] VITALS: BMI 28.2
[2018-08-25] MEDS: IPRATROPIUM 200 PUFF/12.9 GM INH IH SCH (21:00)
[2018-08-25 21:13] LABS: Urine Appearance CLEAR; Urine Blood NEGATIVE (NEG); Urine Color YELLOW; Urine Glucose NEGATIVE (NEG); Urine Protein NEGATIVE (NEG); Urine Specific Gravity 1.015 (1.005-1.030)
[2018-08-25 21:38] LABS: Urine Bilirubin NEGATIVE (NEG)
[2018-08-25 21:45] LABS: Urine Bacteria <20 /HPF (NONE SEEN); Urine Culture Reflex Order NOT NEEDED; Urine RBC <5 /HPF (NONE SEEN)
--- NOTE | 2018-08-26 02:35 | FAST ---
SHIFT START DATE/TIME: 08/25/2018 19:00 (CDT) SHIFT END DATE/TIME: 08/26/2018 07:00 (CDT) NAME JOHN PAUL POLLARD DATE OF : 1950 DATE OF ADMISSION: 08/25/2018 18:25 (CDT) PHONE: AGE: 68 SSN# [id number] GENDER: Male ENCOUNTER PHYSICIAN: Dr. Gonzalez Fish M.D. ADMISSION DIAGNOSIS: - Debility 16 - Debility (16) Metastatic Renal Cell Carcinoma. EATING: Activity did not occur on this shift EATING - SCORE: 0-UNK GROOMING: Activity did not occur on this shift GROOMING - SCORE: 0-UNK BATHING: Activity did not occur on this shift BATHING - SCORE: 0-UNK DRESSING - UPPER BODY: Patient is not dressing in public clothing ARTICLES SCORE Total number of steps: 0 DRESSING - UPPER BODY - SCORE: 0-UNK DRESSING - LOWER BODY: Patient is not dressing in public clothing ARTICLES SCORE Total number of steps: 0 DRESSING - LOWER BODY - SCORE: 0-UNK TOILETING: TOILETING - STEP 1: Does the patient require the assistance of a person or device, or need extra time with toileting? Yes . TOILETING - STEP 2: Does the patient require the assistance of a helper? Yes. TOILETING - STEP 3: How much assistance does the patient require from the helper? Only supervision TOILETING - SCORE: 5-SUP BLADDER MANAGEMENT: BLADDER MANAGEMENT - STEP 1: Does the patient control the bladder completely and intentionally without equipment or devices or med ications, and is always continent? Yes. BLADDER MANAGEMENT - SCORE: 7-IND BOWEL MANAGEMENT: Activity did not occur on this shift BOWEL MANAGEMENT - SCORE: 7-IND TRANSFERS: BED, CHAIR, WHEELCHAIR: TRANSFERS: BED, CHAIR, WHEELCHAIR - STEP 1: Does the patient require assistance of a person or device, or need extra time with bed, chair, or whe elchair transfers? Yes. TRANSFERS: BED, CHAIR, WHEELCHAIR - STEP 2: Does the patient require the assistance of a helper? Yes. TRANSFERS: BED, CHAIR, WHEELCHAIR - STEP 3: How much assistance does the patient require from the helper? Only supervision TRANSFERS: BED, CHAIR, WHEELCHAIR - SCORE: 5-SUP TRANSFERS: TOILET: TRANSFERS: TOILET - STEP 1: Does the patient require the assistance of a person or device, or need extra time with toilet transfe rs? Yes. TRANSFERS: TOILET - STEP 2: Does the patient require the assistance of a helper? Yes. TRANSFERS: TOILET - STEP 3: How much assistance does the patient require from the helper? Only supervision, cuing, coaxing, OR he lp to set out transfer equipment or to lock brakes and/or lift foot rests TRANSFERS: TOILET - SCORE: 5-SUP TRANSFERS: SHOWER: Activity did not occur on this shift TRANSFERS: SHOWER - SCORE: 0-UNK TRANSFERS: TUB: Activity did not occur on this shift TRANSFERS: TUB - SCORE: 0-UNK LOCOMOTION: WALK: Activity did not occur on this shift LOCOMOTION: WALK - SCORE: 0-UNK LOCOMOTION: WHEELCHAIR: Activity did not occur on this shift LOCOMOTION: WHEELCHAIR - SCORE: 0-UNK COMPREHENSION: COMPREHENSION: TYPE: Both COMPREHENSION - STEP 1: Does the patient require help from a person or device, or need extra time to understand complex and a bstract ideas (such as current events, finances, discharge planning, medical issues, relationships, e tc)? No. COMPREHENSION - STEP 2: Does the patient need extra time, require an assistive device (such as glasses for visual comprehensi on or a hearing aid for auditory comprehension) or does s/he have mild difficulty understanding compl ex and abstract information? No. COMPREHENSION - SCORE: 7-IND EXPRESSION EXPRESSION: TYPE: Both EXPRESSION - STEP 1: Does the patient require help from a person or device, or need extra time expressing complex and abst ract ideas (such as current events, finances, discharge planning, medical issues, relationships, etc) ? No. EXPRESSION - STEP 2: Does the patient need extra time, require an assistive device (such as augmentive communication syste m or a communication board), OR does s/he have mild difficulty expressing complex and abstract ideas (including mild dysarthria or mild word-find problems)? No. EXPRESSION - SCORE: 7-IND SOCIAL INTERACTION: SOCIAL INTERACTION - STEP 1: Does the patient require a helper to interact with others in social and therapeutic situations? No. SOCIAL INTERACTION - STEP 2: Does the patient need extra time in social situations, OR does s/he interact with staff, other patien ts, and family members ONLY in structured environments, OR does s/he require medication for social in teraction? No. SOCIAL INTERACTION - SCORE: 7-IND PROBLEM SOLVING: PROBLEM SOLVING - STEP 1: Does the patient need help from a person or device, or need extra time to solve complex problems such as managing a checking account or confronting interpersonal problems? No. PROBLEM SOLVING - STEP 2: Does the patient require extra time to make decisions or solve problems, OR does s/he have slight dif ficulty reading, initiating, or self-correcting in unfamiliar situations? No. PROBLEM SOLVING - SCORE: 7-IND MEMORY: MEMORY - STEP 1: Does the patient need help from a person or device, or need extra time to remember frequently encount ered people, daily routines, and executing requests? No. MEMORY - STEP 2: Does the patient have slight difficulty recognizing frequently encountered people, daily routines, or executing requests without the need for repetition or using self-initiated or environmental cues to remember? No. MEMORY - SCORE: 7-IND SIGNATURE PANEL: The following modified sections: Eating - Score, Grooming - Score, Bathing - Score, Dressing - Upper Body - Score, Dressing - Lower Body - Score, Toileting - Score, Bladder Management - Score, Bowel Man agement - Score, Transfers: Bed, Chair, Wheelchair - Score, Transfers: Toilet - Score, Transfers: Geno wer - Score, Transfers: Tub - Score, Locomotion: Walk - Score, Locomotion: Wheelchair - Score, Compre hension - Score, Expression - Score, Social Interaction - Score, Problem Solving - Score, Memory - Sc ore were [electronically] signed by Roxanne Vergara CNA on SatAug 26 2018 02:35:02 T-0500 ([place]light Time)
[2018-08-26 06:07] LABS: Absolute Lymphocytes (CBC) 1.7 K/uL (0.7-4.9); Absolute Monocytes 0.4 K/uL (0.1-1.3); Absolute Neutrophil 2.4 K/uL (1.8-8.0); Basophils % 0.4 % (0-1.3); Eosinophils % 3.1 % (0-4.4); Hematocrit 28.5 % (39.6-49.0); MPV 7.5 fL (7.6-11.3); Monocytes % 7.9 % (3.3-12.3); RBC Red Blood Cell Count 3.39 M/uL (4.33-5.43)
[2018-08-26 06:16] LABS: Magnesium 2.1 mg/dL (1.8-2.4); Potassium 4.4 mmol/L (3.5-5.1); Prealbumin 15.9 mg/dL (20-40)
[2018-08-26] MEDS: ENOXAPARIN 40 MG/0.4 ML SQ SCH (07:13)
[2018-08-26] MEDS: INSULIN -REGULAR HUMAN 50 UNIT/0.5 ML ML SQ SCH ×4 (07:18→20:09)
[2018-08-26] MEDS: HYDROCODONE/APAP 5/325 MG TAB PO PRN ×2 (08:36→19:49)
[2018-08-26] MEDS: AMLODIPINE 5 MG TAB PO SCH (08:37)
[2018-08-26] MEDS: ROSUVASTATIN 10 MG TAB PO SCH (08:38)
[2018-08-26] MEDS: FOLIC ACID 1 MG TABLET PO SCH (08:38)
[2018-08-26] MEDS: METOPROLOL TAR 50 MG TAB PO SCH ×2 (08:38→19:50)
[2018-08-26] MEDS: TAMSULOSIN 0.4 MG SR CAP PO SCH (08:38)
[2018-08-26] MEDS: IPRATROPIUM 200 PUFF/12.9 GM INH IH SCH ×2 (08:39→12:23)
[2018-08-26] MEDS: DOCUSATE NA 100 MG CAP PO PRN ×2 (08:41→19:49)
[2018-08-26] MEDS: TRAMADOL HCL 50 MG TAB PO PRN (12:26)
[2018-08-26] MEDS ORDERED: IPRATROPIUM IH SCH (14:00)
--- NOTE | 2018-08-26 14:50 | R.HP ---
FACILITY: [facility] ENCOUNTER DATE AND TIME: 08/26/2018 14:42 (CDT) MR#: [id number] NAME JOHN PAUL POLLARD ADDRESS: [address] [place] [address]: [place] [address]IP [id number] PHONE: DATE OF : 1950 AGE: 68 SSN# [id number] GENDER: Male DEXTERITY Right-handed MARITAL STATUS RACE White PRE-HOSPITAL LIVING SETTING 01 - Home (private home/apt. board/care, assisted living, intermediate, transitional living) PRE-HOSPITAL LIVING WITH Alone ENCOUNTER PHYSICIAN: Dr. Gonzalez Fish M.D. REFERRING DOCTOR: matilde Mcdaniels DATE OF ADMISSION: 08/25/2018 18:25 (CDT) REFERRING FACILITY [facility] HOME TYPE AND DETAILS: Type of home: single family house # of levels in the residence: 1 # of steps to enter the residence: 0 # of steps within the residence: 0 ADMISSION DIAGNOSIS: Metastatic Renal Cell Carcinoma ONSET DATE: 08/21/2018 PRIMARY DIAGNOSIS-RELATED SURGERIES: Left Laparoscopic Radical Nephrectomy on 08/21/2018 SECONDARY/COMORBID DIAGNOSES (TIERED): - N/A CAD HTN ROSARIO HISTORY OF PRESENT ILLNESS (HPI): Pt. is a 68 yo Right-handed white male. On 08/21/2018 he was admitted to [facility] with diagnosis Metastatic Renal Cell C arcinoma. His impairment category is Debility 16 - Debility (16). Pre-morbidly, Pt. was independent/mod-I in Self-Care, Sphincter Control, Transfers Control, Locomotio n, Communication, and Social Cognition; and he had good Sphincter Control. Currently, he has deficits of Self-Care, Transfers Control, Locomotion, Endurance, Balance, and Safet y Awareness. Pt. is now referred to [facility] for acute in-patient rehabilitation in order to maximize patient's functional independence in activities of daily living, strength, ROM, and mobi lity. Patient has realistic goal of being discharged at assistance level 6-Elvis to reside at Home with Fam loli/Relatives. MEDICATION ALLERGIES: No Known Drug Allergies (NKDA) ENVIRONMENTAL ALLERGIES: None Known - Substance Allergies None Known - Other Allergies None Known PAST MEDICAL HISTORY: CAD HTN ROSARIO PAST SURGICAL HISTORY: BIOPSY/EXCISION, SOFT TISSUE HIP Colonoscopy ORIF, ACETABULUM FAMILY HISTORY: Family history is not contributory. SOCIAL HISTORY: - Home Living Alone REVIEW OF SYSTEMS: - Gen No Chills Fatigue No Fever - Eyes No Double Vision No itchiness - ENMT No Difficulty Swallowing - CVS No Chest Discomfort No Chest Pain Fatigue No Weight Gain - Resp No Cough No Shortness of Breath - GI Continent Abdominal Pain No Constipation No Diarrhea - Continent No Kidney Pain No Painful Urination No Urinary Urgency - MSK No Joint Pain Muscle Cramps Stiffness - Skin No Itching No Rash No Suspicious Lesions - Neuro Coordination Difficulty No Difficulty with Concentration No Memory Loss No Seizures Weakness - Psych No Anxiety No Depression No HIV Exposure No Persistent Infections No Seasonal Allergies - Endo No Cold/Heat Intolerance No Excessive Hunger No Excessive Thirst No Excessive Urination PHYSICAL EXAM - Gen Alert and awake Lying in bed No apparent distress Oriented to: person, time, and place - Skin No breakdown No abnormalities - Eyes No abnormalities - ENMT No abnormalities - Neck No abnormalities - CVS RRR - Chest No abnormalities - Resp Clear to auscultation - Abd Soft - GI + bowel sound Deferred - No abnormalities - Ext No significant edema. - MSK 4/5 weakness in all extremities. - Neuro No focal deficits - Psych No abnormalities VITAL SIGNS Temperature: 97.2 F SBP/DBP: 169/77 Pulse: 59 Resp: 16 NURSING: - Shower allowing shower ACTIVITIES OOB only with supervision FUNCTIONAL STATUS: - Self-Care A. Eating Ind sup B. Grooming Ind sup C. Bathing Ind sup D. Dressing - Upper Ind sup E. Dressing - Lower Ind sup F. Toileting Ind sup - Sphincter Control G: Bladder control Ind Ind H: Bowel control Ind Ind - Transfers Control I. Bed/Chair/Wheelchair Ind Liban J. Toilet Ind Liban K. Tub/Shower Ind ADNO - Locomotion L. Walk/Wheelchair (B) Ind Liban M. Stairs Ind ADNO - Communication N. Comprehension (B) Ind Ind O. Expression (B) Ind Ind - Social Cognition P. Social Interaction Ind Ind Q. Problem Solving Ind Ind R. Memory Ind Ind - Endurance Fair - Balance Fair - Safety Awareness Fair CURRENT FUNC. DEFICITS: Self-Care, Transfers Control, Locomotion, Endurance, Balance, and Safety Awareness ASSESSMENT: Pt. is a 68 yo Right-handed white male.On 08/21/2018 he was admitted to [facility] with diagnosis Metastatic Renal Cell Carcinoma.His impairment category is Debility 16 - Debility (1 6).Pre-morbidly, Pt. was independent/mod-I in Self-Care, Sphincter Control, Transfers Control, Locomo tion, Communication, and Social Cognition; and he had good Sphincter Control.Currently, he has defici ts of Self-Care, Transfers Control, Locomotion, Endurance, Balance, and Safety Awareness.Pt. is now r eferred to [facility] for acute in-patient rehabilitation in order to maximize patient's functional independence in activities of daily living, strength, ROM, and mobility.- Rehab Goal Patient has realistic goal of being discharged at assistance level 6-Elvis to reside at Home with Fam loli/Relatives. REHAB PLAN: - Physical Therapy Gait dysfunction - to improve, our physical therapists will perform initial evaluation of pt's status upon admission and devise an individualized program for Gait Training, and Wheel Chair mobility Inability to transfer - to improve, our physical therapists will perform initial evaluation of pt's s tatus upon admission and devise an individualized program for Bed mobility Need for home safety evaluation - to improve, our physical therapists will perform initial evaluation of pt's status upon admission and devise an individualized program for Home Evaluation Need in caregiver upon discharge - to improve, our physical therapists will perform initial evaluatio n of pt's status upon admission and devise an individualized program for Caregiver Training New precaution - to improve, our physical therapists will perform initial evaluation of pt's status u joyce admission and devise an individualized program for Patient precaution education Edema - to improve, our physical therapists will perform initial evaluation of pt's status upon admi ssion and devise an individualized program for Elevation Training, and Lymphedema Therapy Poor balance - to improve, our physical therapists will perform initial evaluation of pt's status upo n admission and devise an individualized program for Balance Training Poor endurance - to improve, our physical therapists will perform initial evaluation of pt's status u joyce admission and devise an individualized program for Endurance Training Weakness - to improve, our physical therapists will perform initial evaluation of pt's status upon ad mission and devise an individualized program for Aquatic Therapy, Neuromuscular Reeducation, and Stre ngthening Achieving independence - to improve, our physical therapists will perform initial evaluation of pt's status upon admission and devise an individualized program for Community Reintegration Activities - Occupational Therapy ADL deficits - to improve, our occupation therapists will perform initial evaluation of pt's status u joyce admission and devise an individualized program for Bathing, Bed mobility, Community Reintegration , Cooking, Dressing, Eating, Fine Motor Skills, Grooming, Homemaking, Kitchen Mobility, Laundry, Sydnie ent Education, Safety Awareness, Splinting - Positioning, Transfers(Toilet, Tub, Shower), and Wheel C hair Management Need for senior caregiver - to improve, our occupation therapists will perform initial evaluation of pt's s tatus upon admission and devise an individualized program for Caregiver Training Weakness - to improve, our occupation therapists will perform initial evaluation of pt's status upon admission and devise an individualized program for Aquatic Therapy, Balance, Endurance, UE ROM, and U E strengthening MEDICAL PLAN: - Diet Type Start Regular - Diet - Liquid Texture Start Regular - Tube Feed Start N/A - Diet - Solid Texture Regular - Shower shower DISCHARGE PLAN: - Estimated Length of Stay (days) 13. - Consensus on plan Discharge plan has been discussed with primary caregiver. Patient/Family is in agreement with the madi n. Primary caregiver is in agreement with the plan. - Patient/Family Goals Return home with assistance. - Planned Living Setting Upon Discharge Home, to live with Family/Relatives. Transitional Living. SIGNATURE PANEL: (CDT)
--- NOTE | 2018-08-26 15:18 | FAST ---
SHIFT START DATE/TIME: 08/26/2018 07:00 (CDT) SHIFT END DATE/TIME: 08/26/2018 19:00 (CDT) NAME JOHN PAUL POLLARD DATE OF : 1950 DATE OF ADMISSION: 08/25/2018 18:25 (CDT) PHONE: AGE: 68 SSN# [id number] GENDER: Male ENCOUNTER PHYSICIAN: Dr. Gonzalez Fish M.D. ADMISSION DIAGNOSIS: - Debility 16 - Debility (16) Metastatic Renal Cell Carcinoma. EATING: EATING - STEP 1: Does the patient require the assistance of a person or device, or need extra time when eating? Yes. EATING - STEP 2: Does the patient require the assistance of a helper? No, patient only requires an assistive device, O R s/he takes more than reasonable time to eat, OR there is a safety concern, OR s/he requires modifie d food consistency EATING - SCORE: 6-RACHEL GROOMING: Comb/brush hair Oral care Wash, rinse, and dry face Wash, rinse, and dry hands GROOMING - STEP 1: Does the patient require the assistance of a person or device, or need extra time when grooming? Yes. GROOMING - STEP 2: Does the patient require the assistance of a helper? No. The patient only requires an assistive devic e, OR takes more than reasonable time to groom, OR there is a concern for safety as the patient groom s GROOMING - SCORE: 6-RACHEL BATHING: Activity did not occur on this shift BATHING - SCORE: 0-UNK DRESSING - UPPER BODY: Activity did not occur on this shift ARTICLES SCORE Total number of steps: 0 DRESSING - UPPER BODY - SCORE: 0-UNK DRESSING - LOWER BODY: Activity did not occur on this shift ARTICLES SCORE Total number of steps: 0 DRESSING - LOWER BODY - SCORE: 0-UNK TOILETING: TOILETING - STEP 1: Does the patient require the assistance of a person or device, or need extra time with toileting? Yes . TOILETING - STEP 2: Does the patient require the assistance of a helper? Yes. TOILETING - STEP 3: How much assistance does the patient require from the helper? Hands-on assistance from the helper TOILETING - STEP 4: Of the 3 tasks: 1) Adjusting clothing prior to use, 2) Cleansing of perineal area, 3) Adjusting clot liberty after use; How many tasks does the patient perform WITHOUT assistance of the helper? Three tasks with steadying assistance from the helper TOILETING - SCORE: 4-MIN BLADDER MANAGEMENT: BLADDER MANAGEMENT - STEP 1: Does the patient control the bladder completely and intentionally without equipment or devices or med ications, and is always continent? No. BLADDER MANAGEMENT - STEP 2: Does the patient require the assistance of a helper? No, patient requires and independently uses an a ssistive device, such as a urinal, bedpan, bedside commode, catheter, absorbent pad, or collecting de vice BLADDER MANAGEMENT - SCORE: 6-RACHEL BOWEL MANAGEMENT: Activity did not occur on this shift BOWEL MANAGEMENT - SCORE: 7-IND TRANSFERS: BED, CHAIR, WHEELCHAIR: TRANSFERS: BED, CHAIR, WHEELCHAIR - STEP 1: Does the patient require assistance of a person or device, or need extra time with bed, chair, or whe elchair transfers? Yes. TRANSFERS: BED, CHAIR, WHEELCHAIR - STEP 2: Does the patient require the assistance of a helper? Yes. TRANSFERS: BED, CHAIR, WHEELCHAIR - STEP 3: How much assistance does the patient require from the helper? Only supervision TRANSFERS: BED, CHAIR, WHEELCHAIR - SCORE: 5-SUP TRANSFERS: TOILET: TRANSFERS: TOILET - STEP 1: Does the patient require the assistance of a person or device, or need extra time with toilet transfe rs? Yes. TRANSFERS: TOILET - STEP 2: Does the patient require the assistance of a helper? No. Patient only requires an assistive device chaparro ch as a grab bar or special seat, OR s/he takes more than reasonable time to perform toilet transfers , OR there is a safety concern when s/he performs toilet transfers. TRANSFERS: TOILET - SCORE: 6-RACHEL TRANSFERS: SHOWER: Activity did not occur on this shift TRANSFERS: SHOWER - SCORE: 0-UNK TRANSFERS: TUB: Activity did not occur on this shift TRANSFERS: TUB - SCORE: 0-UNK LOCOMOTION: WALK: Activity did not occur on this shift LOCOMOTION: WALK - SCORE: 0-UNK LOCOMOTION: WHEELCHAIR: Activity did not occur on this shift LOCOMOTION: WHEELCHAIR - SCORE: 0-UNK COMPREHENSION: COMPREHENSION: TYPE: Both COMPREHENSION - STEP 1: Does the patient require help from a person or device, or need extra time to understand complex and a bstract ideas (such as current events, finances, discharge planning, medical issues, relationships, e tc)? No. COMPREHENSION - STEP 2: Does the patient need extra time, require an assistive device (such as glasses for visual comprehensi on or a hearing aid for auditory comprehension) or does s/he have mild difficulty understanding compl ex and abstract information? Yes. COMPREHENSION - SCORE: 6-RACHEL EXPRESSION EXPRESSION: TYPE: Both EXPRESSION - STEP 1: Does the patient require help from a person or device, or need extra time expressing complex and abst ract ideas (such as current events, finances, discharge planning, medical issues, relationships, etc) ? No. EXPRESSION - STEP 2: Does the patient need extra time, require an assistive device (such as augmentive communication syste m or a communication board), OR does s/he have mild difficulty expressing complex and abstract ideas (including mild dysarthria or mild word-find problems)? Yes. EXPRESSION - SCORE: 6-RACHEL SOCIAL INTERACTION: SOCIAL INTERACTION - STEP 1: Does the patient require a helper to interact with others in social and therapeutic situations? No. SOCIAL INTERACTION - STEP 2: Does the patient need extra time in social situations, OR does s/he interact with staff, other patien ts, and family members ONLY in structured environments, OR does s/he require medication for social in teraction? Yes, patient needs extra time SOCIAL INTERACTION - SCORE: 6-RACHEL PROBLEM SOLVING: PROBLEM SOLVING - STEP 1: Does the patient need help from a person or device, or need extra time to solve complex problems such as managing a checking account or confronting interpersonal problems? No. PROBLEM SOLVING - STEP 2: Does the patient require extra time to make decisions or solve problems, OR does s/he have slight dif ficulty reading, initiating, or self-correcting in unfamiliar situations? Yes, patient needs extra ti me. PROBLEM SOLVING - SCORE: 6-RACHEL MEMORY: MEMORY - STEP 1: Does the patient need help from a person or device, or need extra time to remember frequently encount ered people, daily routines, and executing requests? No. MEMORY - STEP 2: Does the patient have slight difficulty recognizing frequently encountered people, daily routines, or executing requests without the need for repetition or using self-initiated or environmental cues to remember? Yes. MEMORY - SCORE: 6-RACHEL SIGNATURE PANEL: The following modified sections: Eating - Score, Grooming - Score, Bathing - Score, Dressing - Upper Body - Score, Dressing - Lower Body - Score, Toileting - Score, Bladder Management - Score, Bowel Man agement - Score, Transfers: Bed, Chair, Wheelchair - Score, Transfers: Toilet - Score, Transfers: Geno wer - Score, Transfers: Tub - Score, Locomotion: Walk - Score, Locomotion: Wheelchair - Score, Compre hension - Score, Expression - Score, Social Interaction - Score, Problem Solving - Score, Memory - Sc ore were [electronically] signed by Kevan Cardona on SatAug 26 2018 15:17:10 GMT-0500 (Central Daylight Time)
--- NOTE | 2018-08-26 16:11 | PAPE ---
PATIENT: [facility] MR# [id number] REFERRING DOCTOR matilde Mcdaniels EVALUATION DATE AND TIME 08/26/2018 16:03 (CDT) NAME JOHN PAUL POLLARD DATE OF 1950 AGE 68 PHONE SSN# [id number] GENDER male EVALUATING PHYSICIAN Dr. Gonzalez Fish M.D. ADMISSION DIAGNOSIS: Metastatic Renal Cell Carcinoma ONSET DATE 08/21/2018 SECONDARY/COMORBID DIAGNOSES TIERED: - N/A CAD HTN ROSARIO POST-ADMISSION FUNCTIONAL/MEDICAL STATUS: - Bladder Same accident frequency: Ind - No accidents in the past 7 days - Bowel Same accident frequency: Ind - No accidents in the past 7 days - Walking Same score based on distance walked: 3(>=150ft) - Wheelchair Same score based on distance traveled: 0(N/A) STATUS CHANGE EVALUATION: No change in Functional or Medical Status is identified compared with Pre-Admission screening. PATIENT NEEDS CLOSE MEDICAL SUPERVISION BY A REHABILITATION PHYSICIAN FOR: Bowel and Bladder Management Coordination of Treatment Team Medical and Co-Morbidity Management PATIENT REQUIRES 24X7 REHAB NURSING FOR MEDICAL AND FUNCTIONAL MGT. OF THE FOLLOWING DEFICITS: ADL's Ambulation Bowel and Bladder Management Communication Disease Management Medication Management Patient/Family Education Providing Safe Environment Transfers Pain Management DVT Management PATIENT REQUIRES INTENSIVE, COORDINATED INTERDISCIPLINARY APPROACH TO REHAB: Arranging Home Equipment/Services Discharge Planning Family Intervention/Training Supervisor Mapping/Case Management LIST OF IDENTIFIED AND POTENTIAL PROBLEMS: Alteration in leisure activities Bladder, Incontinence Bowel, Incontinence Infection, Actual or Potential Mobility Impaired Pain, Alteration in Comfort Self Care Deficit Skin Integrity, Actual or Potential Urinary Tract Infection (UTI), Actual or Potential RISK FOR COMPLICATIONS - CAD CHF. Cardiac Arrest. GA. Pain. INTERVENTIONS - CAD 02 sats. Activity management. Medications. VS. PATIENT COULD BE AT RISK FOR COMPLICATIONS FROM ADVERSE MEDICAL CONDITIONS DUE TO HIS/HER COMORBIDITI ES AND THE RIGORS OF THE INTENSIVE REHABILLITATION PROGRAM. METHODS OR INTERVENTIONS TO AVOID COMPLIC ATIONS INCLUDE: - Infection Clinical staff to assess and manage the signs and symptoms of infection including fever, redness, war mth, etc. - Urinary Tract Infection - Falls Patient will be evaluated for Fall Precautions and will be placed on Fall Precautions as indicated pe r protocol. - Skin Breakdown Nursing will assess skin daily using assessment tool and will place on Skin Breakdown Precautions as indicated per protocol. - Pain Clinical staff may employ non-medication methods such as massage, distraction, decrease stimulus, etc . as needed. Clinical staff will assess patient's pain level every shift per protocol to assess and e nsure pain management effectiveness. Medications will be given and the pain level re-assessed. PRELIMINARY PLAN OF CARE: - Physical Therapy Patient needs Physical Therapy for a daily minimum of 1.5 hours at least 5 out of 7 days, to improve: Mobility, Strengthening, Transfers, Stretching, ROM, Endurance, Ability to manage stairs, Gait, and Balance. - Rehabilitation Nursing Patient requires 24x7 Rehabilitation Nursing for: Pain Issues, Identifying and preventing risk factor s, Monitoring and reporting current medical conditions, Assisting with ambulation and transfer, Milagros ting with all ADL-s, Teaching patients about disease process and medications, Family teaching, Provid ing safe environment, Bowel and Bladder Issues, Skin Integrity, and Medication Management. Patient needs Supervisor Mapping and/or Case Management for: Discharge Planning, Arranging Home Equipmen t or Services, and Family Interventions. - Dietary and Nutrition Services Patient needs Dietary and Nutrition Services for: Adequate Nutrition, Nutritional Supplements, and Nu tritional Education. - Occupational Therapy Patient needs Occupational Therapy for a daily minimum of 1.5 hours at least 5 out of 7 days, to impr ove Activities of Daily Living, including: Eating, Grooming, Bathing, Dressing, Toileting, Toilet Tra nsfers, Community Reintegration, Higher functional activities, Adaptive Equipment, Splinting, Househo ld Tasks, and Other activities as determined. POTENTIAL FUNCTIONAL GOALS FOR PATIENT TO ACHIEVE BY DISCHARGE: - Safety Precaution Patient will remain free from falls or injury at time of discharge. - Bed Mobility Patient will perform bed mobility at 4-Liban level of assistance. - Transfers Patient will complete transfers from bed to chair at 4-Liban level of assistance. - Mobility Patient will ambulate 150 ft with 4-Liban level of assistance with RW. PATIENT REHAB POTENTIAL Expected level of measurable improvement will be of a practical value to patient's functional capacit y or adaptations to impairments Has a viable Discharge Plan Medically appropriate; condition is sufficiently stable to participate in intensive rehab program Patient is able and expected to receive 3 hours of individualized therapy daily on at least 5 of ever y 7 days Patient's prognosis for significant practical improvement within a reasonable period of time appears Good DISCHARGE PLAN: - Estimated Length of Stay (days) 13. - Consensus on plan Discharge plan has been discussed with primary caregiver. Patient/Family is in agreement with the madi n. Primary caregiver is in agreement with the plan. - Patient/Family Goals Return home with assistance. - Planned Living Setting Upon Discharge Home, to live with Family/Relatives. Transitional Living. CONCLUSION ON REHABILITATION NECESSITY: I have evaluated patient's pre-admission functional status and, comparing it to the patient's post-ad mission functional status now, I conclude that the pre-admission assessment was accurate. Patient's c ondition on admission supports the medical necessity of admission to [facility]. It is safe to proceed with patient's therapy program. SIGNATURE PANEL: (CDT)
--- NOTE | 2018-08-26 16:47 | FAST ---
ENCOUNTER DATE AND TIME: 08/26/2018 08:00 (CDT) NAME JOHN PAUL POLLARD DATE OF : 1950 DATE OF ADMISSION: 08/25/2018 18:25 (CDT) PHONE: AGE: 68 SSN# [id number] GENDER: Male ENCOUNTER PHYSICIAN: Dr. Gonzalez Fish M.D. ADMISSION DIAGNOSIS: - Debility 16 - Debility (16) Metastatic Renal Cell Carcinoma. EATING: Activity did not occur on this shift EATING - SCORE: 0-UNK GROOMING: Activity did not occur on this shift GROOMING - SCORE: 0-UNK BATHING: Activity did not occur on this shift BATHING - SCORE: 0-UNK DRESSING - UPPER BODY: Activity did not occur on this shift Patient is not dressing in public clothing ARTICLES SCORE Total number of steps: 0 DRESSING - UPPER BODY - SCORE: 0-UNK DRESSING - LOWER BODY: Activity did not occur on this shift Patient is not dressing in public clothing ARTICLES SCORE Total number of steps: 0 DRESSING - LOWER BODY - SCORE: 0-UNK TOILETING: Activity did not occur on this shift TOILETING - SCORE: 0-UNK BLADDER MANAGEMENT: Activity did not occur on this shift BLADDER MANAGEMENT - SCORE: 7-IND BOWEL MANAGEMENT: Activity did not occur on this shift BOWEL MANAGEMENT - SCORE: 7-IND TRANSFERS: BED, CHAIR, WHEELCHAIR: TRANSFERS: BED, CHAIR, WHEELCHAIR - STEP 1: Does the patient require assistance of a person or device, or need extra time with bed, chair, or whe elchair transfers? Yes. TRANSFERS: BED, CHAIR, WHEELCHAIR - STEP 2: Does the patient require the assistance of a helper? Yes. TRANSFERS: BED, CHAIR, WHEELCHAIR - STEP 3: How much assistance does the patient require from the helper? Steadying/guiding assistance TRANSFERS: BED, CHAIR, WHEELCHAIR - SCORE: 4-MIN TRANSFERS: TOILET: Activity did not occur on this shift TRANSFERS: TOILET - SCORE: 0-UNK TRANSFERS: SHOWER: Activity did not occur on this shift TRANSFERS: SHOWER - SCORE: 0-UNK TRANSFERS: TUB: Activity did not occur on this shift TRANSFERS: TUB - SCORE: 0-UNK LOCOMOTION: WALK: LOCOMOTION: WALK - STEP 1: Does the patient need help from a person or device, or need extra time to walk 150 feet? Yes. LOCOMOTION: WALK - STEP 2: How much assistance does the patient require to walk a minimum of 150 feet? Only incidental help such as contact guarding or steadying LOCOMOTION: WALK - SCORE: 4-MIN LOCOMOTION: WHEELCHAIR: Activity did not occur on this shift LOCOMOTION: WHEELCHAIR - SCORE: 0-UNK LOCOMOTION: STAIRS: LOCOMOTION: STAIRS - STEP 1: Does the patient need help to go up and down 12 to 14 stairs? Yes. LOCOMOTION: STAIRS - STEP 2: How much assistance does the patient need from the helper to go a minimum of 12 to 14 stairs? Only chaparro pervision, cuing, or coaxing LOCOMOTION: STAIRS - SCORE: 5-SUP COMPREHENSION: COMPREHENSION - SCORE: 0-UNK EXPRESSION EXPRESSION - SCORE: 0-UNK SOCIAL INTERACTION: SOCIAL INTERACTION - SCORE: 0-UNK PROBLEM SOLVING: PROBLEM SOLVING - SCORE: 0-UNK MEMORY: MEMORY - SCORE: 0-UNK SIGNATURE PANEL: The following modified sections: Transfers: Bed, Chair, Wheelchair - Score, Transfers: Toilet - Score , Locomotion: Walk - Score, Locomotion: Wheelchair - Score, Locomotion: Stairs - Score were [electron matilde] signed by Lorenzo Comer PT on SatAug 26 2018 16:46:52 T-0500 (Central Daylight Time)
[2018-08-26] MEDS: MELATONIN 3 MG TABLET PO PRN (19:49)
[2018-08-26] MEDS: PROMOD 30 ML DOSE PO SCH (19:49)
[2018-08-27] MEDS: INSULIN -REGULAR HUMAN 50 UNIT/0.5 ML ML SQ SCH ×4 (07:18→20:50)
[2018-08-27] MEDS: PROMOD 30 ML DOSE PO SCH ×2 (08:00→20:35)
[2018-08-27] MEDS: TRAMADOL HCL 50 MG TAB PO PRN (08:15)
[2018-08-27] MEDS: ENOXAPARIN 40 MG/0.4 ML SQ SCH (08:15)
[2018-08-27] MEDS: ROSUVASTATIN 10 MG TAB PO SCH (08:15)
[2018-08-27] MEDS: TAMSULOSIN 0.4 MG SR CAP PO SCH (08:16)
[2018-08-27] MEDS: METOPROLOL TAR 50 MG TAB PO SCH ×2 (08:16→20:35)
[2018-08-27] MEDS: FOLIC ACID 1 MG TABLET PO SCH (08:16)
[2018-08-27] MEDS: AMLODIPINE 5 MG TAB PO SCH (08:17)
[2018-08-27] MEDS: HYDROCODONE/APAP 5/325 MG TAB PO PRN ×2 (12:16→23:27)
--- NOTE | 2018-08-27 14:40 | FAST ---
ENCOUNTER DATE AND TIME: 08/27/2018 08:00 (CDT) NAME JOHN PAUL POLLARD DATE OF : 1950 DATE OF ADMISSION: 08/25/2018 18:25 (CDT) PHONE: AGE: 68 SSN# [id number] GENDER: Male ENCOUNTER PHYSICIAN: Dr. Gonzalez Fish M.D. ADMISSION DIAGNOSIS: - Debility 16 - Debility (16) Metastatic Renal Cell Carcinoma. EATING: Activity did not occur on this shift EATING - SCORE: 0-UNK GROOMING: Activity did not occur on this shift GROOMING - SCORE: 0-UNK BATHING: Activity did not occur on this shift BATHING - SCORE: 0-UNK DRESSING - UPPER BODY: Activity did not occur on this shift Patient is not dressing in public clothing ARTICLES SCORE Total number of steps: 0 DRESSING - UPPER BODY - SCORE: 0-UNK DRESSING - LOWER BODY: Activity did not occur on this shift Patient is not dressing in public clothing ARTICLES SCORE Total number of steps: 0 DRESSING - LOWER BODY - SCORE: 0-UNK TOILETING: Activity did not occur on this shift TOILETING - SCORE: 0-UNK BLADDER MANAGEMENT: Activity did not occur on this shift BLADDER MANAGEMENT - SCORE: 7-IND BOWEL MANAGEMENT: Activity did not occur on this shift BOWEL MANAGEMENT - SCORE: 7-IND TRANSFERS: BED, CHAIR, WHEELCHAIR: TRANSFERS: BED, CHAIR, WHEELCHAIR - STEP 1: Does the patient require assistance of a person or device, or need extra time with bed, chair, or whe elchair transfers? Yes. TRANSFERS: BED, CHAIR, WHEELCHAIR - STEP 2: Does the patient require the assistance of a helper? Yes. TRANSFERS: BED, CHAIR, WHEELCHAIR - STEP 3: How much assistance does the patient require from the helper? Only supervision TRANSFERS: BED, CHAIR, WHEELCHAIR - SCORE: 5-SUP TRANSFERS: TOILET: Activity did not occur on this shift TRANSFERS: TOILET - SCORE: 0-UNK TRANSFERS: SHOWER: Activity did not occur on this shift TRANSFERS: SHOWER - SCORE: 0-UNK TRANSFERS: TUB: Activity did not occur on this shift TRANSFERS: TUB - SCORE: 0-UNK LOCOMOTION: WALK: LOCOMOTION: WALK - STEP 1: Does the patient need help from a person or device, or need extra time to walk 150 feet? Yes. LOCOMOTION: WALK - STEP 2: How much assistance does the patient require to walk a minimum of 150 feet? Only supervision, cuing, or coaxing LOCOMOTION: WALK - SCORE: 5-SUP LOCOMOTION: WHEELCHAIR: Activity did not occur on this shift LOCOMOTION: WHEELCHAIR - SCORE: 0-UNK LOCOMOTION: STAIRS: LOCOMOTION: STAIRS - STEP 1: Does the patient need help to go up and down 12 to 14 stairs? Yes. LOCOMOTION: STAIRS - STEP 2: How much assistance does the patient need from the helper to go a minimum of 12 to 14 stairs? Only chaparro pervision, cuing, or coaxing LOCOMOTION: STAIRS - SCORE: 5-SUP COMPREHENSION: COMPREHENSION - SCORE: 0-UNK EXPRESSION EXPRESSION - SCORE: 0-UNK SOCIAL INTERACTION: SOCIAL INTERACTION - SCORE: 0-UNK PROBLEM SOLVING: PROBLEM SOLVING - SCORE: 0-UNK MEMORY: MEMORY - SCORE: 0-UNK SIGNATURE PANEL: The following modified sections: Transfers: Bed, Chair, Wheelchair - Score, Transfers: Toilet - Score , Locomotion: Walk - Score, Locomotion: Wheelchair - Score, Locomotion: Stairs - Score were [electron matilde] signed by Lorenzo Comer PT on SatAug 27 2018 14:39:54 GMT-0500 (Central Daylight Time)
--- NOTE | 2018-08-27 18:15 | R.PN ---
ENCOUNTER DATE AND TIME: 08/27/2018 18:09 (CDT) NAME JOHN PAUL POLLARD DATE OF : 1950 DATE OF ADMISSION: 08/25/2018 18:25 (CDT) Metastatic Renal Cell CarcinomaCHIEF COMPLAINT: Debility, metastatic renal cell carcinoma SUBJECTIVE: Pt denied any depression. Pt denied any Shortness of Breath. Ambulated 750' with standby assistance using a rolling walker and 750' with standby assistance using a single prong cane. Hgb 9.6, WBC 4.7, glucose 99 to 123, UA is normal. VITAL SIGNS Temperature: 97.2 F SBP/DBP: 160/58 Pulse: 60 Resp: 16 MEDICATION ALLERGIES: No Known Drug Allergies (NKDA) ENVIRONMENTAL ALLERGIES: None Known - Substance Allergies None Known - Other Allergies None Known NURSING: - Shower allowing shower ACTIVITIES OOB only with supervision THERAPIES: - Occupational Therapy Evaluate and Treat. - Physical Therapy Evaluate and Treat. PHYSICAL EXAM - Gen Alert and awake Lying in bed No apparent distress Oriented to: person, time, and place - Skin No breakdown No abnormalities - Eyes No abnormalities - ENMT No abnormalities - Neck No abnormalities - CVS RRR - Chest No abnormalities - Resp Clear to auscultation - Abd Soft - GI + bowel sound Deferred - No abnormalities - Ext No significant edema. - MSK 4/5 weakness in all extremities. - Neuro No focal deficits - Psych No abnormalities ASSESSMENT: Pt. is a 68 yo Right-handed white male.On 08/21/2018 he was admitted to [facility] with diagnosis Metastatic Renal Cell Carcinoma.His impairment category is Debility 16 - Debility (1 6).Pre-morbidly, Pt. was independent/mod-I in Self-Care, Sphincter Control, Transfers Control, Locomo tion, Communication, and Social Cognition; and he had good Sphincter Control.Currently, he has defici ts of Self-Care, Transfers Control, Locomotion, Endurance, Balance, and Safety Awareness.Pt. is now r eferred to [facility] for acute in-patient rehabilitation in order to maximize patient's functional independence in activities of daily living, strength, ROM, and mobility.- Rehab Goal Patient has realistic goal of being discharged at assistance level 6-Elvis to reside at Home with Fam loli/Relatives. MDM/PLAN: - Physical Therapy Gait dysfunction - to improve, our physical therapists will perform initial evaluation of pt's statu s upon admission and devise an individualized program for Gait Training, and Wheel Chair mobility Inability to transfer - to improve, our physical therapists will perform initial evaluation of pt's status upon admission and devise an individualized program for Bed mobility Need for home safety evaluation - to improve, our physical therapists will perform initial evaluatio n of pt's status upon admission and devise an individualized program for Home Evaluation Need in caregiver upon discharge - to improve, our physical therapists will perform initial evaluati on of pt's status upon admission and devise an individualized program for Caregiver Training New precaution - to improve, our physical therapists will perform initial evaluation of pt's status upon admission and devise an individualized program for Patient precaution education Edema - to improve, our physical therapists will perform initial evaluation of pt's status upon admis veronica and devise an individualized program for Elevation Training, and Lymphedema Therapy Poor balance - to improve, our physical therapists will perform initial evaluation of pt's status up on admission and devise an individualized program for Balance Training Poor endurance - to improve, our physical therapists will perform initial evaluation of pt's status upon admission and devise an individualized program for Endurance Training Weakness - to improve, our physical therapists will perform initial evaluation of pt's status upon a dmission and devise an individualized program for Aquatic Therapy, Neuromuscular Reeducation, and Str engthening Achieving independence - to improve, our physical therapists will perform initial evaluation of pt's status upon admission and devise an individualized program for Community Reintegration Activities - Occupational Therapy ADL deficits - to improve, our occupation therapists will perform initial evaluation of pt's status upon admission and devise an individualized program for Bathing, Bed mobility, Community Reintegratio n, Cooking, Dressing, Eating, Fine Motor Skills, Grooming, Homemaking, Kitchen Mobility, Laundry, Pat ient Education, Safety Awareness, Splinting - Positioning, Transfers(Toilet, Tub, Shower), and Wheel Chair Management Need for complex care nurse - to improve, our occupation therapists will perform initial evaluation of pt's status upon admission and devise an individualized program for Caregiver Training Weakness - to improve, our occupation therapists will perform initial evaluation of pt's status upon admission and devise an individualized program for Aquatic Therapy, Balance, Endurance, UE ROM, and UE strengthening - Diet Type Continue Regular - Diet - Liquid Texture Continue Regular - Tube Feed Continue N/A - Diet - Solid Texture Continue Regular - Shower allowing shower FUNCTIONAL STATUS: UPDATED AT WEEKLY TEAM CONFERENCE - Bladder Same accident frequency: 7-Ind - No accidents in the past 7 days - Bowel Same accident frequency: 7-Ind - No accidents in the past 7 days - Walking Same score based on distance walked: 3(>=150ft) - Wheelchair Same score based on distance traveled: 0(N/A) FUNCTIONAL STATUS: - Self-Care A. Eating sup B. Grooming sup C. Bathing sup D. Dressing - Upper sup E. Dressing - Lower sup F. Toileting sup - Sphincter Control G: Bladder control Ind H: Bowel control Ind - Transfers Control I. Bed/Chair/Wheelchair Liban J. Toilet Liban K. Tub/Shower ADNO - Locomotion L. Walk/Wheelchair (B) Liban M. Stairs ADNO - Communication N. Comprehension (B) Ind O. Expression (B) Ind - Social Cognition P. Social Interaction Ind Q. Problem Solving Ind R. Memory Ind - Endurance Fair - Balance Fair - Safety Awareness Fair CURRENT FUNC. DEFICITS: Self-Care, Transfers Control, Locomotion, Endurance, Balance, and Safety Awareness SIGNATURE PANEL: (CDT)
[2018-08-27] MEDS: MELATONIN 3 MG TABLET PO PRN (20:36)
[2018-08-27] MEDS: DOCUSATE NA 100 MG CAP PO PRN (20:36)
--- NOTE | 2018-08-28 01:09 | FAST ---
SHIFT START DATE/TIME: 08/27/2018 19:00 (CDT) SHIFT END DATE/TIME: 08/28/2018 07:00 (CDT) NAME JOHN PAUL POLLARD DATE OF : 1950 DATE OF ADMISSION: 08/25/2018 18:25 (CDT) PHONE: AGE: 68 SSN# [id number] GENDER: Male ENCOUNTER PHYSICIAN: Dr. Gonzalez Fish M.D. ADMISSION DIAGNOSIS: - Debility 16 - Debility (16) Metastatic Renal Cell Carcinoma. EATING: Activity did not occur on this shift EATING - SCORE: 0-UNK GROOMING: Wash, rinse, and dry hands GROOMING - STEP 1: Does the patient require the assistance of a person or device, or need extra time when grooming? Yes. GROOMING - STEP 2: Does the patient require the assistance of a helper? No. The patient only requires an assistive devic e, OR takes more than reasonable time to groom, OR there is a concern for safety as the patient groom s GROOMING - SCORE: 6-RACHEL BATHING: Activity did not occur on this shift BATHING - SCORE: 0-UNK DRESSING - UPPER BODY: Patient is not dressing in public clothing ARTICLES SCORE Total number of steps: 0 DRESSING - UPPER BODY - SCORE: 0-UNK DRESSING - LOWER BODY: Patient is not dressing in public clothing ARTICLES SCORE Total number of steps: 0 DRESSING - LOWER BODY - SCORE: 0-UNK TOILETING: TOILETING - STEP 1: Does the patient require the assistance of a person or device, or need extra time with toileting? Yes . TOILETING - STEP 2: Does the patient require the assistance of a helper? Yes. TOILETING - STEP 3: How much assistance does the patient require from the helper? Only supervision TOILETING - SCORE: 5-SUP BLADDER MANAGEMENT: BLADDER MANAGEMENT - STEP 1: Does the patient control the bladder completely and intentionally without equipment or devices or med ications, and is always continent? No. BLADDER MANAGEMENT - STEP 2: Does the patient require the assistance of a helper? No, patient requires and independently uses an a ssistive device, such as a urinal, bedpan, bedside commode, catheter, absorbent pad, or collecting de vice BLADDER MANAGEMENT - SCORE: 6-RACHEL BOWEL MANAGEMENT: Activity did not occur on this shift BOWEL MANAGEMENT - SCORE: 7-IND TRANSFERS: BED, CHAIR, WHEELCHAIR: TRANSFERS: BED, CHAIR, WHEELCHAIR - STEP 1: Does the patient require assistance of a person or device, or need extra time with bed, chair, or whe elchair transfers? Yes. TRANSFERS: BED, CHAIR, WHEELCHAIR - STEP 2: Does the patient require the assistance of a helper? Yes. TRANSFERS: BED, CHAIR, WHEELCHAIR - STEP 3: How much assistance does the patient require from the helper? Steadying/guiding assistance TRANSFERS: BED, CHAIR, WHEELCHAIR - SCORE: 4-MIN TRANSFERS: TOILET: TRANSFERS: TOILET - STEP 1: Does the patient require the assistance of a person or device, or need extra time with toilet transfe rs? Yes. TRANSFERS: TOILET - STEP 2: Does the patient require the assistance of a helper? No. Patient only requires an assistive device chaparro ch as a grab bar or special seat, OR s/he takes more than reasonable time to perform toilet transfers , OR there is a safety concern when s/he performs toilet transfers. TRANSFERS: TOILET - SCORE: 6-RACHEL TRANSFERS: SHOWER: Activity did not occur on this shift TRANSFERS: SHOWER - SCORE: 0-UNK TRANSFERS: TUB: Activity did not occur on this shift TRANSFERS: TUB - SCORE: 0-UNK LOCOMOTION: WALK: Activity did not occur on this shift LOCOMOTION: WALK - SCORE: 0-UNK LOCOMOTION: WHEELCHAIR: Activity did not occur on this shift LOCOMOTION: WHEELCHAIR - SCORE: 0-UNK COMPREHENSION: COMPREHENSION: TYPE: Both COMPREHENSION - STEP 1: Does the patient require help from a person or device, or need extra time to understand complex and a bstract ideas (such as current events, finances, discharge planning, medical issues, relationships, e tc)? No. COMPREHENSION - STEP 2: Does the patient need extra time, require an assistive device (such as glasses for visual comprehensi on or a hearing aid for auditory comprehension) or does s/he have mild difficulty understanding compl ex and abstract information? Yes. COMPREHENSION - SCORE: 6-RACHEL EXPRESSION EXPRESSION: TYPE: Both EXPRESSION - STEP 1: Does the patient require help from a person or device, or need extra time expressing complex and abst ract ideas (such as current events, finances, discharge planning, medical issues, relationships, etc) ? No. EXPRESSION - STEP 2: Does the patient need extra time, require an assistive device (such as augmentive communication syste m or a communication board), OR does s/he have mild difficulty expressing complex and abstract ideas (including mild dysarthria or mild word-find problems)? No. EXPRESSION - SCORE: 7-IND SOCIAL INTERACTION: SOCIAL INTERACTION - STEP 1: Does the patient require a helper to interact with others in social and therapeutic situations? No. SOCIAL INTERACTION - STEP 2: Does the patient need extra time in social situations, OR does s/he interact with staff, other patien ts, and family members ONLY in structured environments, OR does s/he require medication for social in teraction? Yes, patient needs extra time SOCIAL INTERACTION - SCORE: 6-RACHEL PROBLEM SOLVING: PROBLEM SOLVING - STEP 1: Does the patient need help from a person or device, or need extra time to solve complex problems such as managing a checking account or confronting interpersonal problems? No. PROBLEM SOLVING - STEP 2: Does the patient require extra time to make decisions or solve problems, OR does s/he have slight dif ficulty reading, initiating, or self-correcting in unfamiliar situations? Yes, patient needs extra ti me. PROBLEM SOLVING - SCORE: 6-RACHEL MEMORY: MEMORY - STEP 1: Does the patient need help from a person or device, or need extra time to remember frequently encount ered people, daily routines, and executing requests? No. MEMORY - STEP 2: Does the patient have slight difficulty recognizing frequently encountered people, daily routines, or executing requests without the need for repetition or using self-initiated or environmental cues to remember? Yes. MEMORY - SCORE: 6-RACHEL SIGNATURE PANEL: The following modified sections: Eating - Score, Grooming - Score, Dressing - Upper Body - Score, James ssing - Lower Body - Score, Toileting - Score, Bladder Management - Score, Bowel Management - Score, Transfers: Bed, Chair, Wheelchair - Score, Transfers: Toilet - Score, Transfers: Shower - Score, Funes sfers: Tub - Score, Locomotion: Walk - Score, Locomotion: Wheelchair - Score, Comprehension - Score, Expression - Score, Social Interaction - Score, Problem Solving - Score, Memory - Score were [electro nically] signed by Niyah Ortiz CNA on SatAug 28 2018 01:07:49 GMT-0500 (Central Daylight Time)
[2018-08-28 05:59] LABS: Absolute Lymphocytes (CBC) 2.1 K/uL (0.7-4.9); Absolute Monocytes 0.3 K/uL (0.1-1.3); Absolute Neutrophil 1.4 K/uL (1.8-8.0); Basophils % 0.5 % (0-1.3); Eosinophils % 3.2 % (0-4.4); Hematocrit 27.6 % (39.6-49.0); Lymphocytes % 52.2 % (15.3-44.8); MPV 7.4 fL (7.6-11.3); Monocytes % 8.4 % (3.3-12.3); RBC Red Blood Cell Count 3.26 M/uL (4.33-5.43)
[2018-08-28 06:21] LABS: Potassium 4.1 mmol/L (3.5-5.1); Prealbumin 18.2 mg/dL (20-40)
[2018-08-28] MEDS: INSULIN -REGULAR HUMAN 50 UNIT/0.5 ML ML SQ SCH ×4 (07:30→20:19)
[2018-08-28] MEDS: AMLODIPINE 5 MG TAB PO SCH (08:14)
[2018-08-28] MEDS: ROSUVASTATIN 10 MG TAB PO SCH (08:14)
[2018-08-28] MEDS: ENOXAPARIN 40 MG/0.4 ML SQ SCH (08:14)
[2018-08-28] MEDS: FOLIC ACID 1 MG TABLET PO SCH (08:14)
[2018-08-28] MEDS: TRAMADOL HCL 50 MG TAB PO PRN (08:15)
[2018-08-28] MEDS: TAMSULOSIN 0.4 MG SR CAP PO SCH (08:15)
[2018-08-28] MEDS: PROMOD 30 ML DOSE PO SCH ×2 (08:15→20:19)
[2018-08-28] MEDS: METOPROLOL TAR 50 MG TAB PO SCH ×2 (08:15→20:18)
--- NOTE | 2018-08-28 09:17 | P.RH.PN ---
Estimated Length of Stay: 14 Expected Discharge Date: 09/07/18 Discharge Disposition Plan: Home Family Support: Yes Half-Way Goal: Mobility, Transfers, Self Care Vital Signs: Last Vital Signs Temp 97.2 F 08/27/18 20:05 Pulse 60 08/28/18 08:15 Resp 18 08/27/18 20:05 BP 163/58 H 08/28/18 08:15 Pulse Ox 98 08/27/18 20:05 Laboratory: Laboratory Last Values WBC 4.1 K/uL (4.3-10.9) L 08/28/18 05:38 RBC 3.26 M/uL (4.33-5.43) L 08/28/18 05:38 Hgb 9.1 g/dL (13.6-17.9) L 08/28/18 05:38 Hct 27.6 % (39.6-49.0) L 08/28/18 05:38 MCV 84.6 fL (80-100) 08/28/18 05:38 MCH 27.8 pg (27.0-35.0) 08/28/18 05:38 MCHC 32.9 g/dL (32.0-36.0) 08/28/18 05:38 RDW 15.0 % (12.1-15.2) 08/28/18 05:38 Plt Count 260 K/uL (152-406) 08/28/18 05:38 MPV 7.4 fL (7.6-11.3) L 08/28/18 05:38 Neutrophils % 35.7 % (41.7-73.7) L 08/28/18 05:38 Lymphocytes % 52.2 % (15.3-44.8) H 08/28/18 05:38 Monocytes % 8.4 % (3.3-12.3) 08/28/18 05:38 Eosinophils % 3.2 % (0-4.4) 08/28/18 05:38 Basophils % 0.5 % (0-1.3) 08/28/18 05:38 Absolute Neutrophils 1.4 K/uL (1.8-8.0) L 08/28/18 05:38 Absolute Lymphocytes 2.1 K/uL (0.7-4.9) 08/28/18 05:38 Absolute Monocytes 0.3 K/uL (0.1-1.3) 08/28/18 05:38 Absolute Eosinophils 0.1 K/uL (0-0.5) 08/28/18 05:38 Absolute Basophils 0.0 K/uL (0-0.5) 08/28/18 05:38 Sodium 141 mmol/L (136-145) 08/28/18 05:38 Potassium 4.1 mmol/L (3.5-5.1) 08/28/18 05:38 Chloride 108 mmol/L (98-107) H 08/28/18 05:38 Carbon Dioxide 28 mmol/L (21-32) 08/28/18 05:38 BUN 28 mg/dL (7-18) H 08/28/18 05:38 Creatinine 1.37 mg/dL (0.55-1.3) H 08/28/18 05:38 Estimated GFR 51 mL/min (=/>90) L 08/28/18 05:38 Glucose 101 mg/dL (74-106) 08/28/18 05:38 POC Glucose 115 mg/dl (65-120) 08/28/18 06:36 Calcium 8.5 mg/dL (8.5-10.1) 08/28/18 05:38 Magnesium 2.1 mg/dL (1.8-2.4) 08/26/18 05:36 Albumin 3.0 g/dL (3.4-5.0) L 08/28/18 05:38 Prealbumin 18.2 mg/dL (20-40) L 08/28/18 05:38 Urine Color Yellow 08/25/18 20:45 Urine Appearance Clear 08/25/18 20:45 Urine pH 6.0 (5.0-7.0) 08/25/18 20:45 Ur Specific [place] 1.015 (1.005-1.030) 08/25/18 20:45 Urine Ketones Negative (NEG) 08/25/18 20:45 Urine Blood Negative (NEG) 08/25/18 20:45 Urine Nitrite Negative (NEG) 08/25/18 20:45 Urine Bilirubin Negative (NEG) 08/25/18 20:45 Urine Urobilinogen 4.0 mg/dL (0.2-1.0) H 08/25/18 20:45 Ur Leukocyte Esterase Negative (NEG) 08/25/18 20:45 Urine RBC <5 /HPF (NONE SEEN) 08/25/18 20:45 Urine WBC <5 /HPF (<5) 08/25/18 20:45 Ur Squamous Epith Cells <5 /HPF (NONE SEEN) 08/25/18 20:45 Urine Bacteria <20 /HPF (NONE SEEN) 08/25/18 20:45 Urine Culture Reflexed Not needed 08/25/18 20:45 Urine Glucose Negative (NEG) 08/25/18 20:45 Urine Total Protein Negative (NEG) 08/25/18 20:45 Weight: 208 lb 6 oz Wound Present: Yes Closed Surgical Incision Present: Yes Negative Pressure Wound Therapy Present: No Physician Update: Labs reviewed. His Hgb is mildly low at 9.1 and Setter Out elevated to 1.37. Continue hemocyte plus and 8-10 glasses of water daily. He is doing well with physical and occupational therapy. He is standby with transfers, gait and ADLs. Pain Issues: [place] 5/325mg Q6H PRN. Tramadol 50mg Q6H PRN Functional Improvement: pt is demonstrating good progress with functional mobility. pt is on track for meeting his goal od Manan ambulation using a SC. Summary: Patient's care plan and long term care administrator goals have been reviewed and revised as necessary. Please see the Rehabilitation Signature page for all necessary signatures.
--- NOTE | 2018-08-28 11:49 | FAST ---
ENCOUNTER DATE AND TIME: 08/26/2018 08:00 (CDT) NAME JOHN PAUL POLLARD DATE OF : 1950 DATE OF ADMISSION: 08/25/2018 18:25 (CDT) PHONE: AGE: 68 SSN# [id number] GENDER: Male ENCOUNTER PHYSICIAN: Dr. Gonzalez Fish M.D. ADMISSION DIAGNOSIS: - Debility 16 - Debility (16) Metastatic Renal Cell Carcinoma. EATING: Activity did not occur on this shift EATING - SCORE: 0-UNK GROOMING: Comb/brush hair Wash, rinse, and dry face GROOMING - STEP 1: Does the patient require the assistance of a person or device, or need extra time when grooming? Yes. GROOMING - STEP 2: Does the patient require the assistance of a helper? Yes. GROOMING - STEP 3: How much assistance does the patient require from the helper? Only prior equipment preparation/set up from the helper GROOMING - SCORE: 5-SUP BATHING: Abdomen Buttocks Chest Left arm Left lower leg and foot Left upper leg Perineal area Right arm Right lower leg and foot Right upper leg BATHING - STEP 1: Does the patient require the assistance of a person or device, or need extra time when bathing? Yes. BATHING - STEP 2: Does the patient require the assistance of a helper? Yes. BATHING - STEP 3: How much assistance does the patient require from the helper? Only incidental help such as placement of a wash cloth in his/her hand a few times as s/he bathes OR help to bathe just one or two areas of the body BATHING - SCORE: 4-MIN DRESSING - UPPER BODY: T-shirt/pullover shirt (four steps) ARTICLES SCORE Total number of steps: 4 DRESSING - UPPER BODY - STEP 1: Does the patient require help from a person or device, or need extra time when dressing above the nan st? Yes. DRESSING - UPPER BODY - STEP 2: Does the patient require the assistance of a helper? Yes. DRESSING - UPPER BODY - STEP 3: Does the helper touch the patient while dressing? No. DRESSING - UPPER BODY - SCORE: 5-SUP DRESSING - LOWER BODY: Elastic waist pants (three steps) Slip-on shoe - Left foot (one step) Slip-on shoe - Right foot (one step) Sock - Left foot (one step) Sock - Right foot (one step) Underwear (three steps) ARTICLES SCORE Total number of steps: 10 DRESSING - LOWER BODY - STEP 1: Does the patient require help from a person or device, or need extra time when dressing below the nan st? Yes. DRESSING - LOWER BODY - STEP 2: Does the patient require the assistance of a helper? Yes. DRESSING - LOWER BODY - STEP 3: Does the helper touch the patient while dressing? Yes. DRESSING - LOWER BODY - STEP 4: How many of the total steps does the patient complete on his/her own? 9 DRESSING - LOWER BODY - SCORE: 4-MIN TOILETING: Activity did not occur on this shift TOILETING - SCORE: 0-UNK BLADDER MANAGEMENT: Activity did not occur on this shift BLADDER MANAGEMENT - SCORE: 7-IND BOWEL MANAGEMENT: Activity did not occur on this shift BOWEL MANAGEMENT - SCORE: 7-IND TRANSFERS: BED, CHAIR, WHEELCHAIR: TRANSFERS: BED, CHAIR, WHEELCHAIR - STEP 1: Does the patient require assistance of a person or device, or need extra time with bed, chair, or whe elchair transfers? Yes. TRANSFERS: BED, CHAIR, WHEELCHAIR - STEP 2: Does the patient require the assistance of a helper? Yes. TRANSFERS: BED, CHAIR, WHEELCHAIR - STEP 3: How much assistance does the patient require from the helper? Steadying/guiding assistance TRANSFERS: BED, CHAIR, WHEELCHAIR - SCORE: 4-MIN TRANSFERS: TOILET: Activity did not occur on this shift TRANSFERS: TOILET - SCORE: 0-UNK TRANSFERS: SHOWER: TRANSFERS: SHOWER - STEP 1: Does the patient require the assistance of a person or device, or need extra time with shower transfe rs? Yes. TRANSFERS: SHOWER - STEP 2: Does the patient require the assistance of a helper? Yes. TRANSFERS: SHOWER - STEP 3: How much assistance does the patient require from the helper? Only incidental help such as contact gu arding or steadying during shower transfers, or help to lift one leg into the shower TRANSFERS: SHOWER - SCORE: 4-MIN TRANSFERS: TUB: Activity did not occur on this shift TRANSFERS: TUB - SCORE: 0-UNK LOCOMOTION: WALK: Activity did not occur on this shift LOCOMOTION: WALK - SCORE: 0-UNK LOCOMOTION: WHEELCHAIR: Activity did not occur on this shift LOCOMOTION: WHEELCHAIR - SCORE: 0-UNK LOCOMOTION: STAIRS: Activity did not occur on this shift LOCOMOTION: STAIRS - SCORE: 0-UNK COMPREHENSION: COMPREHENSION: TYPE: Both COMPREHENSION - STEP 1: Does the patient require help from a person or device, or need extra time to understand complex and a bstract ideas (such as current events, finances, discharge planning, medical issues, relationships, e tc)? No. COMPREHENSION - STEP 2: Does the patient need extra time, require an assistive device (such as glasses for visual comprehensi on or a hearing aid for auditory comprehension) or does s/he have mild difficulty understanding compl ex and abstract information? Yes. COMPREHENSION - SCORE: 6-RACHEL EXPRESSION EXPRESSION: TYPE: Both EXPRESSION - STEP 1: Does the patient require help from a person or device, or need extra time expressing complex and abst ract ideas (such as current events, finances, discharge planning, medical issues, relationships, etc) ? No. EXPRESSION - STEP 2: Does the patient need extra time, require an assistive device (such as augmentive communication syste m or a communication board), OR does s/he have mild difficulty expressing complex and abstract ideas (including mild dysarthria or mild word-find problems)? No. EXPRESSION - SCORE: 7-IND SOCIAL INTERACTION: SOCIAL INTERACTION - STEP 1: Does the patient require a helper to interact with others in social and therapeutic situations? No. SOCIAL INTERACTION - STEP 2: Does the patient need extra time in social situations, OR does s/he interact with staff, other patien ts, and family members ONLY in structured environments, OR does s/he require medication for social in teraction? No. SOCIAL INTERACTION - SCORE: 7-IND PROBLEM SOLVING: PROBLEM SOLVING - STEP 1: Does the patient need help from a person or device, or need extra time to solve complex problems such as managing a checking account or confronting interpersonal problems? Yes. PROBLEM SOLVING - STEP 2: Does the patient solve basic routine problems half or more of the time? Yes. PROBLEM SOLVING - STEP 3: How often does the patient need help to solve basic routine problems? Less than 10% of the time PROBLEM SOLVING - SCORE: 5-SUP MEMORY: MEMORY - STEP 1: Does the patient need help from a person or device, or need extra time to remember frequently encount ered people, daily routines, and executing requests? Yes. MEMORY - STEP 2: How often does the patient need help to remember frequently encountered people, daily routines, and e xecuting requests? Less than 10% of the time MEMORY - SCORE: 5-SUP SIGNATURE PANEL: The following modified sections: Eating - Score, Grooming - Score, Bathing - Score, Dressing - Upper Body - Score, Dressing - Lower Body - Score, Toileting - Score, Transfers: Bed, Chair, Wheelchair - S core, Transfers: Toilet - Score, Transfers: Shower - Score, Transfers: Tub - Score, Comprehension - S core, Expression - Score, Social Interaction - Score, Problem Solving - Score, Memory - Score were [e lectronically] signed by Sade Fletcher OT on SatAug 28 2018 11:48:22 T-0500 ([place] Time)
[2018-08-28] MEDS: HYDROCODONE/APAP 5/325 MG TAB PO PRN (12:10)
[2018-08-28] MEDS: DOCUSATE NA 100 MG CAP PO SCH ×2 (12:10→20:18)
--- NOTE | 2018-08-28 13:17 | FAST ---
ENCOUNTER DATE AND TIME: 08/28/2018 08:00 (CDT) NAME JOHN PAUL POLLARD DATE OF : 1950 DATE OF ADMISSION: 08/25/2018 18:25 (CDT) PHONE: AGE: 68 SSN# [id number] GENDER: Male ENCOUNTER PHYSICIAN: Dr. Gonzalez Fish M.D. ADMISSION DIAGNOSIS: - Debility 16 - Debility (16) Metastatic Renal Cell Carcinoma. EATING: Activity did not occur on this shift EATING - SCORE: 0-UNK GROOMING: Activity did not occur on this shift GROOMING - SCORE: 0-UNK BATHING: Activity did not occur on this shift BATHING - SCORE: 0-UNK DRESSING - UPPER BODY: Activity did not occur on this shift Patient is not dressing in public clothing ARTICLES SCORE Total number of steps: 0 DRESSING - UPPER BODY - SCORE: 0-UNK DRESSING - LOWER BODY: Activity did not occur on this shift Patient is not dressing in public clothing ARTICLES SCORE Total number of steps: 0 DRESSING - LOWER BODY - SCORE: 0-UNK TOILETING: Activity did not occur on this shift TOILETING - SCORE: 0-UNK BLADDER MANAGEMENT: Activity did not occur on this shift BLADDER MANAGEMENT - SCORE: 7-IND BOWEL MANAGEMENT: Activity did not occur on this shift BOWEL MANAGEMENT - SCORE: 7-IND TRANSFERS: BED, CHAIR, WHEELCHAIR: TRANSFERS: BED, CHAIR, WHEELCHAIR - STEP 1: Does the patient require assistance of a person or device, or need extra time with bed, chair, or whe elchair transfers? Yes. TRANSFERS: BED, CHAIR, WHEELCHAIR - STEP 2: Does the patient require the assistance of a helper? No. Patient only requires an assistive device fo r bed, chair, wheelchair transfers such as a sliding board, grab bar, or brace, OR s/he takes more th an reasonable time, OR there is a safety concern when s/he performs the transfers TRANSFERS: BED, CHAIR, WHEELCHAIR - SCORE: 6-RACHEL TRANSFERS: TOILET: TRANSFERS: TOILET - STEP 1: Does the patient require the assistance of a person or device, or need extra time with toilet transfe rs? Yes. TRANSFERS: TOILET - STEP 2: Does the patient require the assistance of a helper? No. Patient only requires an assistive device chaparro ch as a grab bar or special seat, OR s/he takes more than reasonable time to perform toilet transfers , OR there is a safety concern when s/he performs toilet transfers. TRANSFERS: TOILET - SCORE: 6-RACHEL TRANSFERS: SHOWER: Activity did not occur on this shift TRANSFERS: SHOWER - SCORE: 0-UNK TRANSFERS: TUB: Activity did not occur on this shift TRANSFERS: TUB - SCORE: 0-UNK LOCOMOTION: WALK: LOCOMOTION: WALK - STEP 1: Does the patient need help from a person or device, or need extra time to walk 150 feet? Yes. LOCOMOTION: WALK - STEP 2: How much assistance does the patient require to walk a minimum of 150 feet? Only supervision, cuing, or coaxing LOCOMOTION: WALK - SCORE: 5-SUP LOCOMOTION: WHEELCHAIR: LOCOMOTION: WHEELCHAIR - STEP 1: Does the patient need help to go 150 feet in a wheelchair? No. LOCOMOTION: WHEELCHAIR - SCORE: 6-RACHEL LOCOMOTION: STAIRS: LOCOMOTION: STAIRS - STEP 1: Does the patient need help to go up and down 12 to 14 stairs? Yes. LOCOMOTION: STAIRS - STEP 2: How much assistance does the patient need from the helper to go a minimum of 12 to 14 stairs? Only chaparro pervision, cuing, or coaxing LOCOMOTION: STAIRS - SCORE: 5-SUP COMPREHENSION: COMPREHENSION - SCORE: 0-UNK EXPRESSION EXPRESSION - SCORE: 0-UNK SOCIAL INTERACTION: SOCIAL INTERACTION - SCORE: 0-UNK PROBLEM SOLVING: PROBLEM SOLVING - SCORE: 0-UNK MEMORY: MEMORY - SCORE: 0-UNK SIGNATURE PANEL: The following modified sections: Transfers: Bed, Chair, Wheelchair - Score, Transfers: Toilet - Score , Locomotion: Walk - Score, Locomotion: Wheelchair - Score, Locomotion: Stairs - Score were [ru clayton] signed by Sade London PTA on SatAug 28 2018 13:16:02 T-0500 ([place] Daylight Time)
--- NOTE | 2018-08-28 13:57 | FAST ---
SHIFT START DATE/TIME: 08/28/2018 07:00 (CDT) SHIFT END DATE/TIME: 08/28/2018 19:00 (CDT) NAME JOHN PAUL POLLARD DATE OF : 1950 DATE OF ADMISSION: 08/25/2018 18:25 (CDT) PHONE: AGE: 68 N# [id number] GENDER: Male ENCOUNTER PHYSICIAN: Dr. Gonzalez Fish M.D. ADMISSION DIAGNOSIS: - Debility 16 - Debility (16) Metastatic Renal Cell Carcinoma. EATING: EATING - STEP 1: Does the patient require the assistance of a person or device, or need extra time when eating? Yes. EATING - STEP 2: Does the patient require the assistance of a helper? Yes. EATING - STEP 3: Does the patient perform half or more of the eating tasks? Yes. EATING - STEP 4: Does the patient need only supervision, cuing, coaxing OR help to apply an orthosis OR help to cut fo od, open containers, pour liquids, or butter bread? Yes. EATING - SCORE: 5-SUP GROOMING: Comb/brush hair Oral care Wash, rinse, and dry face Wash, rinse, and dry hands GROOMING - STEP 1: Does the patient require the assistance of a person or device, or need extra time when grooming? Yes. GROOMING - STEP 2: Does the patient require the assistance of a helper? Yes. GROOMING - STEP 3: How much assistance does the patient require from the helper? Only prior equipment preparation/set up from the helper GROOMING - SCORE: 5-SUP BATHING: Activity did not occur on this shift BATHING - SCORE: 0-UNK DRESSING - UPPER BODY: Activity did not occur on this shift ARTICLES SCORE Total number of steps: 0 DRESSING - UPPER BODY - SCORE: 0-UNK DRESSING - LOWER BODY: Activity did not occur on this shift ARTICLES SCORE Total number of steps: 0 DRESSING - LOWER BODY - SCORE: 0-UNK TOILETING: TOILETING - STEP 1: Does the patient require the assistance of a person or device, or need extra time with toileting? Yes . TOILETING - STEP 2: Does the patient require the assistance of a helper? No. TOILETING - SCORE: 6-RACHEL BLADDER MANAGEMENT: BLADDER MANAGEMENT - STEP 1: Does the patient control the bladder completely and intentionally without equipment or devices or med ications, and is always continent? No. BLADDER MANAGEMENT - STEP 2: Does the patient require the assistance of a helper? No, patient requires and independently uses an a ssistive device, such as a urinal, bedpan, bedside commode, catheter, absorbent pad, or collecting de vice BLADDER MANAGEMENT - SCORE: 6-RACHEL BLADDER MANAGEMENT - FREQUENCY OF ACCIDENTS: BLADDER MANAGEMENT(FA) - STEP 1: How many accidents has the patient had during the current shift? 0 BOWEL MANAGEMENT: BOWEL MANAGEMENT - STEP 1: Does the patient control bowels completely and intentionally without equipment devices or medications AND is always continent? No. BOWEL MANAGEMENT - STEP 2: Does the patient require the assistance of a helper? No, patient requires medication for control such as stool softeners, suppositories, laxatives, enemas, or OTC medications BOWEL MANAGEMENT - SCORE: 6-RACHEL BOWEL MANAGEMENT - FREQUENCY OF ACCIDENTS: BOWEL MANAGEMENT(FA) - STEP 1: How many accidents has the patient had during the current shift? 0 TRANSFERS: BED, CHAIR, WHEELCHAIR: TRANSFERS: BED, CHAIR, WHEELCHAIR - STEP 1: Does the patient require assistance of a person or device, or need extra time with bed, chair, or whe elchair transfers? Yes. TRANSFERS: BED, CHAIR, WHEELCHAIR - STEP 2: Does the patient require the assistance of a helper? No. Patient only requires an assistive device fo r bed, chair, wheelchair transfers such as a sliding board, grab bar, or brace, OR s/he takes more th an reasonable time, OR there is a safety concern when s/he performs the transfers TRANSFERS: BED, CHAIR, WHEELCHAIR - SCORE: 6-RACHEL TRANSFERS: TOILET: TRANSFERS: TOILET - STEP 1: Does the patient require the assistance of a person or device, or need extra time with toilet transfe rs? Yes. TRANSFERS: TOILET - STEP 2: Does the patient require the assistance of a helper? No. Patient only requires an assistive device chaparro ch as a grab bar or special seat, OR s/he takes more than reasonable time to perform toilet transfers , OR there is a safety concern when s/he performs toilet transfers. TRANSFERS: TOILET - SCORE: 6-RACHEL TRANSFERS: SHOWER: Activity did not occur on this shift TRANSFERS: SHOWER - SCORE: 0-UNK TRANSFERS: TUB: Activity did not occur on this shift TRANSFERS: TUB - SCORE: 0-UNK LOCOMOTION: WALK: LOCOMOTION: WALK - STEP 1: Does the patient need help from a person or device, or need extra time to walk 150 feet? Yes. LOCOMOTION: WALK - STEP 2: How much assistance does the patient require to walk a minimum of 150 feet? Only supervision, cuing, or coaxing LOCOMOTION: WALK - SCORE: 5-SUP LOCOMOTION: WHEELCHAIR: Activity did not occur on this shift LOCOMOTION: WHEELCHAIR - SCORE: 0-UNK COMPREHENSION: COMPREHENSION: TYPE: Both COMPREHENSION - STEP 1: Does the patient require help from a person or device, or need extra time to understand complex and a bstract ideas (such as current events, finances, discharge planning, medical issues, relationships, e tc)? No. COMPREHENSION - STEP 2: Does the patient need extra time, require an assistive device (such as glasses for visual comprehensi on or a hearing aid for auditory comprehension) or does s/he have mild difficulty understanding compl ex and abstract information? No. COMPREHENSION - SCORE: 7-IND EXPRESSION EXPRESSION: TYPE: Both EXPRESSION - STEP 1: Does the patient require help from a person or device, or need extra time expressing complex and abst ract ideas (such as current events, finances, discharge planning, medical issues, relationships, etc) ? No. EXPRESSION - STEP 2: Does the patient need extra time, require an assistive device (such as augmentive communication syste m or a communication board), OR does s/he have mild difficulty expressing complex and abstract ideas (including mild dysarthria or mild word-find problems)? No. EXPRESSION - SCORE: 7-IND SOCIAL INTERACTION: SOCIAL INTERACTION - STEP 1: Does the patient require a helper to interact with others in social and therapeutic situations? No. SOCIAL INTERACTION - STEP 2: Does the patient need extra time in social situations, OR does s/he interact with staff, other patien ts, and family members ONLY in structured environments, OR does s/he require medication for social in teraction? No. SOCIAL INTERACTION - SCORE: 7-IND PROBLEM SOLVING: PROBLEM SOLVING - STEP 1: Does the patient need help from a person or device, or need extra time to solve complex problems such as managing a checking account or confronting interpersonal problems? No. PROBLEM SOLVING - STEP 2: Does the patient require extra time to make decisions or solve problems, OR does s/he have slight dif ficulty reading, initiating, or self-correcting in unfamiliar situations? No. PROBLEM SOLVING - SCORE: 7-IND MEMORY: MEMORY - STEP 1: Does the patient need help from a person or device, or need extra time to remember frequently encount ered people, daily routines, and executing requests? No. MEMORY - STEP 2: Does the patient have slight difficulty recognizing frequently encountered people, daily routines, or executing requests without the need for repetition or using self-initiated or environmental cues to remember? No. MEMORY - SCORE: 7-IND SIGNATURE PANEL: The following modified sections: Eating - Score, Grooming - Score, Bathing - Score, Dressing - Upper Body - Score, Dressing - Lower Body - Score, Toileting - Score, Bladder Management - Score, Bowel Man agement - Score, Transfers: Bed, Chair, Wheelchair - Score, Transfers: Toilet - Score, Transfers: Geno wer - Score, Transfers: Tub - Score, Locomotion: Walk - Score, Locomotion: Wheelchair - Score, Compre hension - Score, Expression - Score, Social Interaction - Score, Problem Solving - Score, Memory - Sc ore, Memory - Comments: were [electronically] signed by Nat Johnson RN on SatAug 28 2018 13:56:15 GM T-0500 (Central Daylight Time)
[2018-08-28] MEDS: POLYETHYL GLY 3350 17 GM/DOSE PO PRN (18:02)
[2018-08-28] MEDS: DOCUSATE NA/SENNA CONC 1 TAB PO SCH (20:19)
--- NOTE | 2018-08-29 02:10 | FAST ---
SHIFT START DATE/TIME: 08/28/2018 19:00 (CDT) SHIFT END DATE/TIME: 08/29/2018 07:00 (CDT) NAME JOHN PAUL POLLARD DATE OF : 1950 DATE OF ADMISSION: 08/25/2018 18:25 (CDT) PHONE: AGE: 68 SSN# [id number] GENDER: Male ENCOUNTER PHYSICIAN: Dr. Gonzalez Fish M.D. ADMISSION DIAGNOSIS: - Debility 16 - Debility (16) Metastatic Renal Cell Carcinoma. EATING: Activity did not occur on this shift EATING - SCORE: 0-UNK GROOMING: Activity did not occur on this shift GROOMING - SCORE: 0-UNK BATHING: Activity did not occur on this shift BATHING - SCORE: 0-UNK DRESSING - UPPER BODY: Patient is not dressing in public clothing ARTICLES SCORE Total number of steps: 0 DRESSING - UPPER BODY - SCORE: 0-UNK DRESSING - LOWER BODY: Patient is not dressing in public clothing ARTICLES SCORE Total number of steps: 0 DRESSING - LOWER BODY - SCORE: 0-UNK TOILETING: TOILETING - STEP 1: Does the patient require the assistance of a person or device, or need extra time with toileting? Yes . TOILETING - STEP 2: Does the patient require the assistance of a helper? Yes. TOILETING - STEP 3: How much assistance does the patient require from the helper? Only supervision TOILETING - SCORE: 5-SUP BLADDER MANAGEMENT: BLADDER MANAGEMENT - STEP 1: Does the patient control the bladder completely and intentionally without equipment or devices or med ications, and is always continent? No. BLADDER MANAGEMENT - STEP 2: Does the patient require the assistance of a helper? Yes. BLADDER MANAGEMENT - STEP 3: How much assistance does the patient require from the helper? Only set-up of equipment - such as plac ing it within reach of the patient or emptying a device - to maintain either satisfactory voiding pat tern or managing an external device, such as an absorbent pad, ileal device, or catheter BLADDER MANAGEMENT - SCORE: 5-SUP BOWEL MANAGEMENT: Activity did not occur on this shift BOWEL MANAGEMENT - SCORE: 7-IND TRANSFERS: BED, CHAIR, WHEELCHAIR: Activity did not occur on this shift TRANSFERS: BED, CHAIR, WHEELCHAIR - SCORE: 0-UNK TRANSFERS: TOILET: Activity did not occur on this shift TRANSFERS: TOILET - SCORE: 0-UNK TRANSFERS: SHOWER: Activity did not occur on this shift TRANSFERS: SHOWER - SCORE: 0-UNK TRANSFERS: TUB: Activity did not occur on this shift TRANSFERS: TUB - SCORE: 0-UNK LOCOMOTION: WALK: Activity did not occur on this shift LOCOMOTION: WALK - SCORE: 0-UNK LOCOMOTION: WHEELCHAIR: Activity did not occur on this shift LOCOMOTION: WHEELCHAIR - SCORE: 0-UNK COMPREHENSION: COMPREHENSION: TYPE: Both COMPREHENSION - STEP 1: Does the patient require help from a person or device, or need extra time to understand complex and a bstract ideas (such as current events, finances, discharge planning, medical issues, relationships, e tc)? No. COMPREHENSION - STEP 2: Does the patient need extra time, require an assistive device (such as glasses for visual comprehensi on or a hearing aid for auditory comprehension) or does s/he have mild difficulty understanding compl ex and abstract information? Yes. COMPREHENSION - SCORE: 6-RACHEL EXPRESSION EXPRESSION: TYPE: Both EXPRESSION - STEP 1: Does the patient require help from a person or device, or need extra time expressing complex and abst ract ideas (such as current events, finances, discharge planning, medical issues, relationships, etc) ? No. EXPRESSION - STEP 2: Does the patient need extra time, require an assistive device (such as augmentive communication syste m or a communication board), OR does s/he have mild difficulty expressing complex and abstract ideas (including mild dysarthria or mild word-find problems)? Yes. EXPRESSION - SCORE: 6-RACHEL SOCIAL INTERACTION: SOCIAL INTERACTION - STEP 1: Does the patient require a helper to interact with others in social and therapeutic situations? No. SOCIAL INTERACTION - STEP 2: Does the patient need extra time in social situations, OR does s/he interact with staff, other patien ts, and family members ONLY in structured environments, OR does s/he require medication for social in teraction? Yes, patient needs extra time SOCIAL INTERACTION - SCORE: 6-RACHEL PROBLEM SOLVING: PROBLEM SOLVING - STEP 1: Does the patient need help from a person or device, or need extra time to solve complex problems such as managing a checking account or confronting interpersonal problems? No. PROBLEM SOLVING - STEP 2: Does the patient require extra time to make decisions or solve problems, OR does s/he have slight dif ficulty reading, initiating, or self-correcting in unfamiliar situations? Yes, patient needs extra ti me. PROBLEM SOLVING - SCORE: 6-RACHEL MEMORY: MEMORY - STEP 1: Does the patient need help from a person or device, or need extra time to remember frequently encount ered people, daily routines, and executing requests? No. MEMORY - STEP 2: Does the patient have slight difficulty recognizing frequently encountered people, daily routines, or executing requests without the need for repetition or using self-initiated or environmental cues to remember? Yes. MEMORY - SCORE: 6-RACHEL
[2018-08-29] MEDS: ENOXAPARIN 40 MG/0.4 ML SQ SCH (06:56)
[2018-08-29] MEDS: INSULIN -REGULAR HUMAN 50 UNIT/0.5 ML ML SQ SCH ×4 (07:04→21:00)
[2018-08-29] MEDS: AMLODIPINE 5 MG TAB PO SCH (08:20)
[2018-08-29] MEDS: ROSUVASTATIN 10 MG TAB PO SCH (08:20)
[2018-08-29] MEDS: HYDROCODONE/APAP 5/325 MG TAB PO PRN ×2 (08:20→20:05)
[2018-08-29] MEDS: FE SULF/FA/VIT B COMP & C TAB PO SCH (08:21)
[2018-08-29] MEDS: DOCUSATE NA 100 MG CAP PO SCH ×2 (08:21→20:04)
[2018-08-29] MEDS: FERROUS SULFATE 325 MG TAB PO SCH (08:21)
[2018-08-29] MEDS: METOPROLOL TAR 50 MG TAB PO SCH ×2 (08:22→20:04)
[2018-08-29] MEDS: FOLIC ACID 1 MG TABLET PO SCH (08:22)
[2018-08-29] MEDS: TAMSULOSIN 0.4 MG SR CAP PO SCH (08:22)
[2018-08-29] MEDS: PROMOD 30 ML DOSE PO SCH ×2 (08:23→20:07)
[2018-08-29] MEDS: POLYETHYL GLY 3350 17 GM/DOSE PO PRN (08:43)
[2018-08-29] MEDS: TRAMADOL HCL 50 MG TAB PO PRN (12:16)
[2018-08-29] MEDS ORDERED: BISACODYL 10 MG RECTAL SUPP PR ONE (14:06)
--- NOTE | 2018-08-29 15:53 | FAST ---
ENCOUNTER DATE AND TIME: 08/29/2018 08:00 (CDT) NAME JOHN PAUL POLLARD DATE OF : 1950 DATE OF ADMISSION: 08/25/2018 18:25 (CDT) PHONE: AGE: 68 SSN# [id number] GENDER: Male ENCOUNTER PHYSICIAN: Dr. Gonzalez Fish M.D. ADMISSION DIAGNOSIS: - Debility 16 - Debility (16) Metastatic Renal Cell Carcinoma. EATING: Activity did not occur on this shift EATING - SCORE: 0-UNK GROOMING: Activity did not occur on this shift GROOMING - SCORE: 0-UNK BATHING: Activity did not occur on this shift BATHING - SCORE: 0-UNK DRESSING - UPPER BODY: Activity did not occur on this shift Patient is not dressing in public clothing ARTICLES SCORE Total number of steps: 0 DRESSING - UPPER BODY - SCORE: 0-UNK DRESSING - LOWER BODY: Activity did not occur on this shift Patient is not dressing in public clothing ARTICLES SCORE Total number of steps: 0 DRESSING - LOWER BODY - SCORE: 0-UNK TOILETING: Activity did not occur on this shift TOILETING - SCORE: 0-UNK BLADDER MANAGEMENT: Activity did not occur on this shift BLADDER MANAGEMENT - SCORE: 7-IND BOWEL MANAGEMENT: Activity did not occur on this shift BOWEL MANAGEMENT - SCORE: 7-IND TRANSFERS: BED, CHAIR, WHEELCHAIR: TRANSFERS: BED, CHAIR, WHEELCHAIR - STEP 1: Does the patient require assistance of a person or device, or need extra time with bed, chair, or whe elchair transfers? Yes. TRANSFERS: BED, CHAIR, WHEELCHAIR - STEP 2: Does the patient require the assistance of a helper? Yes. TRANSFERS: BED, CHAIR, WHEELCHAIR - STEP 3: How much assistance does the patient require from the helper? Only supervision TRANSFERS: BED, CHAIR, WHEELCHAIR - SCORE: 5-SUP TRANSFERS: TOILET: Activity did not occur on this shift TRANSFERS: TOILET - SCORE: 0-UNK TRANSFERS: SHOWER: Activity did not occur on this shift TRANSFERS: SHOWER - SCORE: 0-UNK TRANSFERS: TUB: Activity did not occur on this shift TRANSFERS: TUB - SCORE: 0-UNK LOCOMOTION: WALK: LOCOMOTION: WALK - STEP 1: Does the patient need help from a person or device, or need extra time to walk 150 feet? Yes. LOCOMOTION: WALK - STEP 2: How much assistance does the patient require to walk a minimum of 150 feet? Only supervision, cuing, or coaxing LOCOMOTION: WALK - SCORE: 5-SUP LOCOMOTION: WHEELCHAIR: Activity did not occur on this shift LOCOMOTION: WHEELCHAIR - SCORE: 0-UNK LOCOMOTION: STAIRS: LOCOMOTION: STAIRS - STEP 1: Does the patient need help to go up and down 12 to 14 stairs? Yes. LOCOMOTION: STAIRS - STEP 2: How much assistance does the patient need from the helper to go a minimum of 12 to 14 stairs? Only chaparro pervision, cuing, or coaxing LOCOMOTION: STAIRS - SCORE: 5-SUP COMPREHENSION: COMPREHENSION - SCORE: 0-UNK EXPRESSION EXPRESSION - SCORE: 0-UNK SOCIAL INTERACTION: SOCIAL INTERACTION - SCORE: 0-UNK PROBLEM SOLVING: PROBLEM SOLVING - SCORE: 0-UNK MEMORY: MEMORY - SCORE: 0-UNK SIGNATURE PANEL: The following modified sections: Transfers: Bed, Chair, Wheelchair - Score, Transfers: Toilet - Score , Locomotion: Walk - Score, Locomotion: Wheelchair - Score, Locomotion: Stairs - Score were [electron matilde] signed by Jimbo Burgess PTA on SatAug 29 2018 15:52:24 GMT-0500 (Central Daylight Time)
[2018-08-29] MEDS: DOCUSATE NA/SENNA CONC 1 TAB PO SCH (20:05)
[2018-08-29] MEDS: MELATONIN 3 MG TABLET PO PRN (20:06)
[2018-08-30] MEDS: INSULIN -REGULAR HUMAN 50 UNIT/0.5 ML ML SQ SCH ×4 (07:03→20:06)
[2018-08-30] MEDS: ENOXAPARIN 40 MG/0.4 ML SQ SCH (07:05)
[2018-08-30] MEDS: FERROUS SULFATE 325 MG TAB PO SCH (07:05)
[2018-08-30] MEDS: ROSUVASTATIN 10 MG TAB PO SCH (07:05)
[2018-08-30] MEDS: TAMSULOSIN 0.4 MG SR CAP PO SCH (07:05)
[2018-08-30] MEDS: DOCUSATE NA 100 MG CAP PO SCH ×2 (07:05→19:28)
[2018-08-30] MEDS: FOLIC ACID 1 MG TABLET PO SCH (07:06)
[2018-08-30] MEDS: AMLODIPINE 5 MG TAB PO SCH (07:06)
[2018-08-30] MEDS: METOPROLOL TAR 50 MG TAB PO SCH ×2 (07:06→19:28)
[2018-08-30] MEDS: FE SULF/FA/VIT B COMP & C TAB PO SCH (07:06)
[2018-08-30] MEDS: PROMOD 30 ML DOSE PO SCH ×2 (07:07→19:28)
[2018-08-30] MEDS: HYDROCODONE/APAP 5/325 MG TAB PO PRN ×2 (07:51→19:28)
--- NOTE | 2018-08-30 16:27 | FAST ---
ENCOUNTER DATE AND TIME: 08/30/2018 08:00 (CDT) NAME JOHN PAUL POLLARD DATE OF : 1950 DATE OF ADMISSION: 08/25/2018 18:25 (CDT) PHONE: AGE: 68 SSN# [id number] GENDER: Male ENCOUNTER PHYSICIAN: Dr. Gonzalez Fish M.D. ADMISSION DIAGNOSIS: - Debility 16 - Debility (16) Metastatic Renal Cell Carcinoma. EATING: EATING - STEP 1: Does the patient require the assistance of a person or device, or need extra time when eating? No. EATING - SCORE: 7-IND GROOMING: Comb/brush hair Wash, rinse, and dry face Wash, rinse, and dry hands GROOMING - STEP 1: Does the patient require the assistance of a person or device, or need extra time when grooming? No. GROOMING - SCORE: 7-IND BATHING: Abdomen Buttocks Chest Left arm Left lower leg and foot Left upper leg Perineal area Right arm Right lower leg and foot Right upper leg BATHING - STEP 1: Does the patient require the assistance of a person or device, or need extra time when bathing? Yes. BATHING - STEP 2: Does the patient require the assistance of a helper? Yes. BATHING - STEP 3: How much assistance does the patient require from the helper? Only supervision, cuing, coaxing, instr uctions, encouragement BATHING - SCORE: 5-SUP DRESSING - UPPER BODY: T-shirt/pullover shirt (four steps) ARTICLES SCORE Total number of steps: 4 DRESSING - UPPER BODY - STEP 1: Does the patient require help from a person or device, or need extra time when dressing above the nan st? No. DRESSING - UPPER BODY - SCORE: 7-IND DRESSING - LOWER BODY: Elastic waist pants (three steps) Slip-on shoe - Left foot (one step) Slip-on shoe - Right foot (one step) Sock - Left foot (one step) Sock - Right foot (one step) Underwear (three steps) ARTICLES SCORE Total number of steps: 10 DRESSING - LOWER BODY - STEP 1: Does the patient require help from a person or device, or need extra time when dressing below the nan st? Yes. DRESSING - LOWER BODY - STEP 2: Does the patient require the assistance of a helper? No. Patient requires an assistive device such as a chute loader. OR s/he takes more than reasonable time as s/he dresses the lower body, OR there is a con cern for safety when s/he dresses the lower body DRESSING - LOWER BODY - SCORE: 6-RACHEL TOILETING: TOILETING - STEP 1: Does the patient require the assistance of a person or device, or need extra time with toileting? Yes . TOILETING - STEP 2: Does the patient require the assistance of a helper? No. TOILETING - SCORE: 6-RACHEL BLADDER MANAGEMENT: Activity did not occur on this shift BLADDER MANAGEMENT - SCORE: 7-IND BOWEL MANAGEMENT: Activity did not occur on this shift BOWEL MANAGEMENT - SCORE: 7-IND TRANSFERS: BED, CHAIR, WHEELCHAIR: Activity did not occur on this shift TRANSFERS: BED, CHAIR, WHEELCHAIR - SCORE: 0-UNK TRANSFERS: TOILET: TRANSFERS: TOILET - STEP 1: Does the patient require the assistance of a person or device, or need extra time with toilet transfe rs? Yes. TRANSFERS: TOILET - STEP 2: Does the patient require the assistance of a helper? No. Patient only requires an assistive device chaparro ch as a grab bar or special seat, OR s/he takes more than reasonable time to perform toilet transfers , OR there is a safety concern when s/he performs toilet transfers. TRANSFERS: TOILET - SCORE: 6-RACHEL TRANSFERS: SHOWER: TRANSFERS: SHOWER - STEP 1: Does the patient require the assistance of a person or device, or need extra time with shower transfe rs? Yes. TRANSFERS: SHOWER - STEP 2: Does the patient require the assistance of a helper? No. The patient only uses an assistive device, t akes more than reasonable time, OR there is a concern for safety when s/he performs transfers. TRANSFERS: SHOWER - SCORE: 6-RACHEL TRANSFERS: TUB: Activity did not occur on this shift TRANSFERS: TUB - SCORE: 0-UNK LOCOMOTION: WALK: Activity did not occur on this shift LOCOMOTION: WALK - SCORE: 0-UNK LOCOMOTION: WHEELCHAIR: Activity did not occur on this shift LOCOMOTION: WHEELCHAIR - SCORE: 0-UNK LOCOMOTION: STAIRS: Activity did not occur on this shift LOCOMOTION: STAIRS - SCORE: 0-UNK COMPREHENSION: COMPREHENSION: TYPE: Both COMPREHENSION - STEP 1: Does the patient require help from a person or device, or need extra time to understand complex and a bstract ideas (such as current events, finances, discharge planning, medical issues, relationships, e tc)? No. COMPREHENSION - STEP 2: Does the patient need extra time, require an assistive device (such as glasses for visual comprehensi on or a hearing aid for auditory comprehension) or does s/he have mild difficulty understanding compl ex and abstract information? No. COMPREHENSION - SCORE: 7-IND EXPRESSION EXPRESSION: TYPE: Both EXPRESSION - STEP 1: Does the patient require help from a person or device, or need extra time expressing complex and abst ract ideas (such as current events, finances, discharge planning, medical issues, relationships, etc) ? No. EXPRESSION - STEP 2: Does the patient need extra time, require an assistive device (such as augmentive communication syste m or a communication board), OR does s/he have mild difficulty expressing complex and abstract ideas (including mild dysarthria or mild word-find problems)? No. EXPRESSION - SCORE: 7-IND SOCIAL INTERACTION: SOCIAL INTERACTION - STEP 1: Does the patient require a helper to interact with others in social and therapeutic situations? No. SOCIAL INTERACTION - STEP 2: Does the patient need extra time in social situations, OR does s/he interact with staff, other patien ts, and family members ONLY in structured environments, OR does s/he require medication for social in teraction? No. SOCIAL INTERACTION - SCORE: 7-IND PROBLEM SOLVING: PROBLEM SOLVING - STEP 1: Does the patient need help from a person or device, or need extra time to solve complex problems such as managing a checking account or confronting interpersonal problems? No. PROBLEM SOLVING - STEP 2: Does the patient require extra time to make decisions or solve problems, OR does s/he have slight dif ficulty reading, initiating, or self-correcting in unfamiliar situations? No. PROBLEM SOLVING - SCORE: 7-IND MEMORY: MEMORY - STEP 1: Does the patient need help from a person or device, or need extra time to remember frequently encount ered people, daily routines, and executing requests? No. MEMORY - STEP 2: Does the patient have slight difficulty recognizing frequently encountered people, daily routines, or executing requests without the need for repetition or using self-initiated or environmental cues to remember? No. MEMORY - SCORE: 7-IND SIGNATURE PANEL: The following modified sections: Eating - Score, Grooming - Score, Bathing - Score, Dressing - Upper Body - Score, Dressing - Lower Body - Score, Toileting - Score, Transfers: Bed, Chair, Wheelchair - S core, Transfers: Toilet - Score, Transfers: Tub - Score, Transfers: Shower - Score, Comprehension - S core, Expression - Score, Social Interaction - Score, Problem Solving - Score, Memory - Score were [e lectronically] signed by Sade Damon OT on SatAug 30 2018 16:26:45 GMT-0500 (Central Daylight T umm)
[2018-08-30] MEDS: MELATONIN 3 MG TABLET PO PRN (21:09)
[2018-08-30] MEDS: DOCUSATE NA/SENNA CONC 1 TAB PO SCH (21:09)
--- NOTE | 2018-08-31 00:54 | FAST ---
SHIFT START DATE/TIME: 08/30/2018 19:00 (CDT) SHIFT END DATE/TIME: 08/31/2018 07:00 (CDT) NAME JOHN PAUL PLOLARD DATE OF : 1950 DATE OF ADMISSION: 08/25/2018 18:25 (CDT) PHONE: AGE: 68 SSN# [id number] GENDER: Male ENCOUNTER PHYSICIAN: Dr. Gonzalez Fish M.D. ADMISSION DIAGNOSIS: - Debility 16 - Debility (16) Metastatic Renal Cell Carcinoma. EATING: Activity did not occur on this shift EATING - SCORE: 0-UNK GROOMING: Activity did not occur on this shift GROOMING - SCORE: 0-UNK BATHING: Activity did not occur on this shift BATHING - SCORE: 0-UNK DRESSING - UPPER BODY: Activity did not occur on this shift ARTICLES SCORE Total number of steps: 0 DRESSING - UPPER BODY - SCORE: 0-UNK DRESSING - LOWER BODY: Activity did not occur on this shift ARTICLES SCORE Total number of steps: 0 DRESSING - LOWER BODY - SCORE: 0-UNK TOILETING: Activity did not occur on this shift TOILETING - SCORE: 0-UNK BLADDER MANAGEMENT: BLADDER MANAGEMENT - STEP 1: Does the patient control the bladder completely and intentionally without equipment or devices or med ications, and is always continent? Yes. BLADDER MANAGEMENT - SCORE: 7-IND BOWEL MANAGEMENT: Activity did not occur on this shift BOWEL MANAGEMENT - SCORE: 7-IND TRANSFERS: BED, CHAIR, WHEELCHAIR: TRANSFERS: BED, CHAIR, WHEELCHAIR - STEP 1: Does the patient require assistance of a person or device, or need extra time with bed, chair, or whe elchair transfers? Yes. TRANSFERS: BED, CHAIR, WHEELCHAIR - STEP 2: Does the patient require the assistance of a helper? Yes. TRANSFERS: BED, CHAIR, WHEELCHAIR - STEP 3: How much assistance does the patient require from the helper? Steadying/guiding assistance TRANSFERS: BED, CHAIR, WHEELCHAIR - SCORE: 4-MIN TRANSFERS: TOILET: TRANSFERS: TOILET - STEP 1: Does the patient require the assistance of a person or device, or need extra time with toilet transfe rs? Yes. TRANSFERS: TOILET - STEP 2: Does the patient require the assistance of a helper? Yes. TRANSFERS: TOILET - STEP 3: How much assistance does the patient require from the helper? Only supervision, cuing, coaxing, OR he lp to set out transfer equipment or to lock brakes and/or lift foot rests TRANSFERS: TOILET - SCORE: 5-SUP TRANSFERS: SHOWER: Activity did not occur on this shift TRANSFERS: SHOWER - SCORE: 0-UNK TRANSFERS: TUB: Activity did not occur on this shift TRANSFERS: TUB - SCORE: 0-UNK LOCOMOTION: WALK: Activity did not occur on this shift LOCOMOTION: WALK - SCORE: 0-UNK LOCOMOTION: WHEELCHAIR: Activity did not occur on this shift LOCOMOTION: WHEELCHAIR - SCORE: 0-UNK COMPREHENSION: COMPREHENSION: TYPE: Both COMPREHENSION - STEP 1: Does the patient require help from a person or device, or need extra time to understand complex and a bstract ideas (such as current events, finances, discharge planning, medical issues, relationships, e tc)? No. COMPREHENSION - STEP 2: Does the patient need extra time, require an assistive device (such as glasses for visual comprehensi on or a hearing aid for auditory comprehension) or does s/he have mild difficulty understanding compl ex and abstract information? No. COMPREHENSION - SCORE: 7-IND EXPRESSION EXPRESSION: TYPE: Both EXPRESSION - STEP 1: Does the patient require help from a person or device, or need extra time expressing complex and abst ract ideas (such as current events, finances, discharge planning, medical issues, relationships, etc) ? No. EXPRESSION - STEP 2: Does the patient need extra time, require an assistive device (such as augmentive communication syste m or a communication board), OR does s/he have mild difficulty expressing complex and abstract ideas (including mild dysarthria or mild word-find problems)? No. EXPRESSION - SCORE: 7-IND SOCIAL INTERACTION: SOCIAL INTERACTION - STEP 1: Does the patient require a helper to interact with others in social and therapeutic situations? No. SOCIAL INTERACTION - STEP 2: Does the patient need extra time in social situations, OR does s/he interact with staff, other patien ts, and family members ONLY in structured environments, OR does s/he require medication for social in teraction? No. SOCIAL INTERACTION - SCORE: 7-IND PROBLEM SOLVING: PROBLEM SOLVING - STEP 1: Does the patient need help from a person or device, or need extra time to solve complex problems such as managing a checking account or confronting interpersonal problems? No. PROBLEM SOLVING - STEP 2: Does the patient require extra time to make decisions or solve problems, OR does s/he have slight dif ficulty reading, initiating, or self-correcting in unfamiliar situations? No. PROBLEM SOLVING - SCORE: 7-IND MEMORY: MEMORY - STEP 1: Does the patient need help from a person or device, or need extra time to remember frequently encount ered people, daily routines, and executing requests? No. MEMORY - STEP 2: Does the patient have slight difficulty recognizing frequently encountered people, daily routines, or executing requests without the need for repetition or using self-initiated or environmental cues to remember? No. MEMORY - SCORE: 7-IND SIGNATURE PANEL: The following modified sections: Eating - Score, Grooming - Score, Bathing - Score, Dressing - Upper Body - Score, Dressing - Lower Body - Score, Toileting - Score, Bladder Management - Score, Bowel Man agement - Score, Transfers: Bed, Chair, Wheelchair - Score, Transfers: Toilet - Score, Transfers: Geno wer - Score, Transfers: Tub - Score, Locomotion: Walk - Score, Locomotion: Wheelchair - Score, Compre hension - Score, Expression - Score, Social Interaction - Score, Problem Solving - Score, Memory - Sc ore were [electronically] signed by Roxanne Vergara CNA on SatAug 31 2018 00:53:34 T-0500 ([place] Da ylight Time)
[2018-08-31] MEDS: ENOXAPARIN 40 MG/0.4 ML SQ SCH (07:06)
[2018-08-31] MEDS: HYDROCODONE/APAP 5/325 MG TAB PO PRN ×3 (07:08→20:11)
[2018-08-31] MEDS: INSULIN -REGULAR HUMAN 50 UNIT/0.5 ML ML SQ SCH ×4 (07:30→21:00)
[2018-08-31] MEDS: FOLIC ACID 1 MG TABLET PO SCH ×2 (07:31→07:33)
[2018-08-31] MEDS: TAMSULOSIN 0.4 MG SR CAP PO SCH ×2 (07:32→07:33)
[2018-08-31] MEDS: ROSUVASTATIN 10 MG TAB PO SCH ×2 (07:32→07:33)
[2018-08-31] MEDS: AMLODIPINE 5 MG TAB PO SCH (07:32)
[2018-08-31] MEDS: FE SULF/FA/VIT B COMP & C TAB PO SCH ×2 (07:32→07:33)
[2018-08-31] MEDS: DOCUSATE NA 100 MG CAP PO SCH ×2 (07:33→19:35)
[2018-08-31] MEDS: METOPROLOL TAR 50 MG TAB PO SCH (07:34)
[2018-08-31] MEDS: PROMOD 30 ML DOSE PO SCH ×2 (07:34→19:35)
[2018-08-31] MEDS: FERROUS SULFATE 325 MG TAB PO SCH (07:47)
--- NOTE | 2018-08-31 09:25 | FAST ---
SHIFT START DATE/TIME: 08/31/2018 07:00 (CDT) SHIFT END DATE/TIME: 08/31/2018 19:00 (CDT) NAME JOHN PAUL POLLARD DATE OF : 1950 DATE OF ADMISSION: 08/25/2018 18:25 (CDT) PHONE: AGE: 68 SSN# [id number] GENDER: Male ENCOUNTER PHYSICIAN: Dr. Goznalez Fish M.D. ADMISSION DIAGNOSIS: - Debility 16 - Debility (16) Metastatic Renal Cell Carcinoma. EATING: EATING - STEP 1: Does the patient require the assistance of a person or device, or need extra time when eating? Yes. EATING - STEP 2: Does the patient require the assistance of a helper? No, patient only requires an assistive device, O R s/he takes more than reasonable time to eat, OR there is a safety concern, OR s/he requires modifie d food consistency EATING - SCORE: 6-RACHEL GROOMING: Comb/brush hair Oral care GROOMING - STEP 1: Does the patient require the assistance of a person or device, or need extra time when grooming? Yes. GROOMING - STEP 2: Does the patient require the assistance of a helper? No. The patient only requires an assistive devic e, OR takes more than reasonable time to groom, OR there is a concern for safety as the patient groom s GROOMING - SCORE: 6-RACHEL BATHING: Activity did not occur on this shift BATHING - SCORE: 0-UNK DRESSING - UPPER BODY: Activity did not occur on this shift ARTICLES SCORE Total number of steps: 0 DRESSING - UPPER BODY - SCORE: 0-UNK DRESSING - LOWER BODY: Activity did not occur on this shift ARTICLES SCORE Total number of steps: 0 DRESSING - LOWER BODY - SCORE: 0-UNK TOILETING: TOILETING - STEP 1: Does the patient require the assistance of a person or device, or need extra time with toileting? Yes . TOILETING - STEP 2: Does the patient require the assistance of a helper? Yes. TOILETING - STEP 3: How much assistance does the patient require from the helper? Only supervision TOILETING - SCORE: 5-SUP BLADDER MANAGEMENT: BLADDER MANAGEMENT - STEP 1: Does the patient control the bladder completely and intentionally without equipment or devices or med ications, and is always continent? Yes. BLADDER MANAGEMENT - SCORE: 7-IND BOWEL MANAGEMENT: Activity did not occur on this shift BOWEL MANAGEMENT - SCORE: 7-IND TRANSFERS: BED, CHAIR, WHEELCHAIR: TRANSFERS: BED, CHAIR, WHEELCHAIR - STEP 1: Does the patient require assistance of a person or device, or need extra time with bed, chair, or whe elchair transfers? Yes. TRANSFERS: BED, CHAIR, WHEELCHAIR - STEP 2: Does the patient require the assistance of a helper? Yes. TRANSFERS: BED, CHAIR, WHEELCHAIR - STEP 3: How much assistance does the patient require from the helper? Steadying/guiding assistance TRANSFERS: BED, CHAIR, WHEELCHAIR - SCORE: 4-MIN TRANSFERS: TOILET: TRANSFERS: TOILET - STEP 1: Does the patient require the assistance of a person or device, or need extra time with toilet transfe rs? Yes. TRANSFERS: TOILET - STEP 2: Does the patient require the assistance of a helper? Yes. TRANSFERS: TOILET - STEP 3: How much assistance does the patient require from the helper? Only supervision, cuing, coaxing, OR he lp to set out transfer equipment or to lock brakes and/or lift foot rests TRANSFERS: TOILET - SCORE: 5-SUP TRANSFERS: SHOWER: Activity did not occur on this shift TRANSFERS: SHOWER - SCORE: 0-UNK TRANSFERS: TUB: Activity did not occur on this shift TRANSFERS: TUB - SCORE: 0-UNK LOCOMOTION: WALK: Activity did not occur on this shift LOCOMOTION: WALK - SCORE: 0-UNK LOCOMOTION: WHEELCHAIR: Activity did not occur on this shift LOCOMOTION: WHEELCHAIR - SCORE: 0-UNK COMPREHENSION: COMPREHENSION: TYPE: Both COMPREHENSION - STEP 1: Does the patient require help from a person or device, or need extra time to understand complex and a bstract ideas (such as current events, finances, discharge planning, medical issues, relationships, e tc)? No. COMPREHENSION - STEP 2: Does the patient need extra time, require an assistive device (such as glasses for visual comprehensi on or a hearing aid for auditory comprehension) or does s/he have mild difficulty understanding compl ex and abstract information? Yes. COMPREHENSION - SCORE: 6-RACHEL EXPRESSION EXPRESSION: TYPE: Both EXPRESSION - STEP 1: Does the patient require help from a person or device, or need extra time expressing complex and abst ract ideas (such as current events, finances, discharge planning, medical issues, relationships, etc) ? No. EXPRESSION - STEP 2: Does the patient need extra time, require an assistive device (such as augmentive communication syste m or a communication board), OR does s/he have mild difficulty expressing complex and abstract ideas (including mild dysarthria or mild word-find problems)? Yes. EXPRESSION - SCORE: 6-RACHEL SOCIAL INTERACTION: SOCIAL INTERACTION - STEP 1: Does the patient require a helper to interact with others in social and therapeutic situations? No. SOCIAL INTERACTION - STEP 2: Does the patient need extra time in social situations, OR does s/he interact with staff, other patien ts, and family members ONLY in structured environments, OR does s/he require medication for social in teraction? Yes, patient needs extra time SOCIAL INTERACTION - SCORE: 6-RACHEL PROBLEM SOLVING: PROBLEM SOLVING - STEP 1: Does the patient need help from a person or device, or need extra time to solve complex problems such as managing a checking account or confronting interpersonal problems? No. PROBLEM SOLVING - STEP 2: Does the patient require extra time to make decisions or solve problems, OR does s/he have slight dif ficulty reading, initiating, or self-correcting in unfamiliar situations? Yes, patient needs extra ti me. PROBLEM SOLVING - SCORE: 6-RACHEL MEMORY: MEMORY - STEP 1: Does the patient need help from a person or device, or need extra time to remember frequently encount ered people, daily routines, and executing requests? No. MEMORY - STEP 2: Does the patient have slight difficulty recognizing frequently encountered people, daily routines, or executing requests without the need for repetition or using self-initiated or environmental cues to remember? Yes. MEMORY - SCORE: 6-RACHEL SIGNATURE PANEL: The following modified sections: Eating - Score, Grooming - Score, Bathing - Score, Dressing - Upper Body - Score, Dressing - Lower Body - Score, Toileting - Score, Bladder Management - Score, Bowel Man agement - Score, Transfers: Bed, Chair, Wheelchair - Score, Transfers: Toilet - Score, Transfers: Geno wer - Score, Transfers: Tub - Score, Locomotion: Walk - Score, Locomotion: Wheelchair - Score, Compre hension - Score, Expression - Score, Social Interaction - Score, Problem Solving - Score, Memory - Sc ore were [electronically] signed by Kevan Cardona on SatAug 31 2018 09:24:13 GMT-0500 (Central Daylight Time)
[2018-08-31] MEDS: METOPROLOL XL 50 MG TAB PO SCH (16:20)
[2018-08-31] MEDS: TRAMADOL HCL 50 MG TAB PO PRN (16:21)
[2018-08-31] MEDS: DOCUSATE NA/SENNA CONC 1 TAB PO SCH (20:11)
[2018-08-31] MEDS: MELATONIN 3 MG TABLET PO PRN (20:11)
[2018-09-01] MEDS: METOPROLOL XL 50 MG TAB PO SCH ×2 (05:13→17:27)
[2018-09-01] MEDS: INSULIN -REGULAR HUMAN 50 UNIT/0.5 ML ML SQ SCH ×4 (07:30→20:15)
[2018-09-01] MEDS: PROMOD 30 ML DOSE PO SCH ×2 (08:00→20:15)
[2018-09-01] MEDS: ENOXAPARIN 40 MG/0.4 ML SQ SCH (08:15)
[2018-09-01] MEDS: DOCUSATE NA 100 MG CAP PO SCH ×2 (08:16→20:14)
[2018-09-01] MEDS: FERROUS SULFATE 325 MG TAB PO SCH (08:16)
[2018-09-01] MEDS: ROSUVASTATIN 10 MG TAB PO SCH (08:16)
[2018-09-01] MEDS: TAMSULOSIN 0.4 MG SR CAP PO SCH (08:17)
[2018-09-01] MEDS: FE SULF/FA/VIT B COMP & C TAB PO SCH (08:17)
[2018-09-01] MEDS: TRAMADOL HCL 50 MG TAB PO PRN (08:17)
[2018-09-01] MEDS: FOLIC ACID 1 MG TABLET PO SCH (08:17)
[2018-09-01] MEDS: AMLODIPINE 5 MG TAB PO SCH (08:17)
--- NOTE | 2018-09-01 13:42 | FAST ---
SHIFT START DATE/TIME: 09/01/2018 07:00 (CDT) SHIFT END DATE/TIME: 09/01/2018 19:00 (CDT) NAME JOHN PAUL POLLARD DATE OF : 1950 DATE OF ADMISSION: 08/25/2018 18:25 (CDT) PHONE: AGE: 68 SSN# [id number] GENDER: Male ENCOUNTER PHYSICIAN: Dr. Gonzalez Fish M.D. ADMISSION DIAGNOSIS: - Debility 16 - Debility (16) Metastatic Renal Cell Carcinoma. EATING: EATING - STEP 1: Does the patient require the assistance of a person or device, or need extra time when eating? Yes. EATING - STEP 2: Does the patient require the assistance of a helper? No, patient only requires an assistive device, O R s/he takes more than reasonable time to eat, OR there is a safety concern, OR s/he requires modifie d food consistency EATING - SCORE: 6-RACHEL GROOMING: Comb/brush hair Oral care Wash, rinse, and dry face Wash, rinse, and dry hands GROOMING - STEP 1: Does the patient require the assistance of a person or device, or need extra time when grooming? No. GROOMING - SCORE: 7-IND BATHING: Activity did not occur on this shift BATHING - SCORE: 0-UNK DRESSING - UPPER BODY: Activity did not occur on this shift ARTICLES SCORE Total number of steps: 0 DRESSING - UPPER BODY - SCORE: 0-UNK DRESSING - LOWER BODY: Activity did not occur on this shift ARTICLES SCORE Total number of steps: 0 DRESSING - LOWER BODY - SCORE: 0-UNK TOILETING: TOILETING - STEP 1: Does the patient require the assistance of a person or device, or need extra time with toileting? Yes . TOILETING - STEP 2: Does the patient require the assistance of a helper? No. TOILETING - SCORE: 6-RACHEL BLADDER MANAGEMENT: BLADDER MANAGEMENT - STEP 1: Does the patient control the bladder completely and intentionally without equipment or devices or med ications, and is always continent? Yes. BLADDER MANAGEMENT - SCORE: 7-IND BOWEL MANAGEMENT: Activity did not occur on this shift BOWEL MANAGEMENT - SCORE: 7-IND TRANSFERS: BED, CHAIR, WHEELCHAIR: TRANSFERS: BED, CHAIR, WHEELCHAIR - STEP 1: Does the patient require assistance of a person or device, or need extra time with bed, chair, or whe elchair transfers? Yes. TRANSFERS: BED, CHAIR, WHEELCHAIR - STEP 2: Does the patient require the assistance of a helper? No. Patient only requires an assistive device fo r bed, chair, wheelchair transfers such as a sliding board, grab bar, or brace, OR s/he takes more th an reasonable time, OR there is a safety concern when s/he performs the transfers TRANSFERS: BED, CHAIR, WHEELCHAIR - SCORE: 6-RACHEL TRANSFERS: TOILET: TRANSFERS: TOILET - STEP 1: Does the patient require the assistance of a person or device, or need extra time with toilet transfe rs? Yes. TRANSFERS: TOILET - STEP 2: Does the patient require the assistance of a helper? No. Patient only requires an assistive device chaparro ch as a grab bar or special seat, OR s/he takes more than reasonable time to perform toilet transfers , OR there is a safety concern when s/he performs toilet transfers. TRANSFERS: TOILET - SCORE: 6-RACHEL TRANSFERS: SHOWER: Activity did not occur on this shift TRANSFERS: SHOWER - SCORE: 0-UNK TRANSFERS: TUB: Activity did not occur on this shift TRANSFERS: TUB - SCORE: 0-UNK LOCOMOTION: WALK: Activity did not occur on this shift LOCOMOTION: WALK - SCORE: 0-UNK LOCOMOTION: WHEELCHAIR: Activity did not occur on this shift LOCOMOTION: WHEELCHAIR - SCORE: 0-UNK COMPREHENSION: COMPREHENSION: TYPE: Both COMPREHENSION - STEP 1: Does the patient require help from a person or device, or need extra time to understand complex and a bstract ideas (such as current events, finances, discharge planning, medical issues, relationships, e tc)? No. COMPREHENSION - STEP 2: Does the patient need extra time, require an assistive device (such as glasses for visual comprehensi on or a hearing aid for auditory comprehension) or does s/he have mild difficulty understanding compl ex and abstract information? Yes. COMPREHENSION - SCORE: 6-RACHEL EXPRESSION EXPRESSION: TYPE: Both EXPRESSION - STEP 1: Does the patient require help from a person or device, or need extra time expressing complex and abst ract ideas (such as current events, finances, discharge planning, medical issues, relationships, etc) ? No. EXPRESSION - STEP 2: Does the patient need extra time, require an assistive device (such as augmentive communication syste m or a communication board), OR does s/he have mild difficulty expressing complex and abstract ideas (including mild dysarthria or mild word-find problems)? No. EXPRESSION - SCORE: 7-IND SOCIAL INTERACTION: SOCIAL INTERACTION - STEP 1: Does the patient require a helper to interact with others in social and therapeutic situations? No. SOCIAL INTERACTION - STEP 2: Does the patient need extra time in social situations, OR does s/he interact with staff, other patien ts, and family members ONLY in structured environments, OR does s/he require medication for social in teraction? No. SOCIAL INTERACTION - SCORE: 7-IND PROBLEM SOLVING: PROBLEM SOLVING - STEP 1: Does the patient need help from a person or device, or need extra time to solve complex problems such as managing a checking account or confronting interpersonal problems? No. PROBLEM SOLVING - STEP 2: Does the patient require extra time to make decisions or solve problems, OR does s/he have slight dif ficulty reading, initiating, or self-correcting in unfamiliar situations? Yes, patient needs extra ti me. PROBLEM SOLVING - SCORE: 6-RACHEL MEMORY: MEMORY - STEP 1: Does the patient need help from a person or device, or need extra time to remember frequently encount ered people, daily routines, and executing requests? No. MEMORY - STEP 2: Does the patient have slight difficulty recognizing frequently encountered people, daily routines, or executing requests without the need for repetition or using self-initiated or environmental cues to remember? Yes. MEMORY - SCORE: 6-RACHEL SIGNATURE PANEL: The following modified sections: Eating - Score, Grooming - Score, Bathing - Score, Dressing - Upper Body - Score, Dressing - Lower Body - Score, Toileting - Score, Bladder Management - Score, Bowel Man agement - Score, Transfers: Bed, Chair, Wheelchair - Score, Transfers: Toilet - Score, Transfers: Geno wer - Score, Transfers: Tub - Score, Locomotion: Walk - Score, Locomotion: Wheelchair - Score, Compre hension - Score, Expression - Score, Social Interaction - Score, Problem Solving - Score, Memory - Sc ore were [electronically] signed by Kevan Cardona on SatSep 01 2018 13:42:18 GMT-0500 (Central Daylight Time)
[2018-09-01] MEDS: DOCUSATE NA/SENNA CONC 1 TAB PO SCH (20:15)
[2018-09-01] MEDS: MELATONIN 3 MG TABLET PO PRN (22:03)
--- NOTE | 2018-09-01 22:49 | R.PN ---
ENCOUNTER DATE AND TIME: 09/01/2018 22:29 (CDT) NAME JOHN PAUL POLLARD DATE OF : 1950 DATE OF ADMISSION: 08/25/2018 18:25 (CDT) Metastatic Renal Cell CarcinomaCHIEF COMPLAINT: Debility, metastatic renal cell carcinoma SUBJECTIVE: Pt denied any depression. Pt denied any Shortness of Breath. Ambulated 750' with standby assistance using a rolling walker and 750' with standby assistance using a single prong cane. Hgb 9.6, WBC 4.7, glucose 99 to 123, UA is normal. VITAL SIGNS Temperature: 97.2 F SBP/DBP: 160/58 Pulse: 60 Resp: 16 MEDICATION ALLERGIES: No Known Drug Allergies (NKDA) ENVIRONMENTAL ALLERGIES: None Known - Substance Allergies None Known - Other Allergies None Known NURSING: - Shower allowing shower ACTIVITIES OOB only with supervision THERAPIES: - Occupational Therapy Evaluate and Treat. - Physical Therapy Evaluate and Treat. PHYSICAL EXAM - Gen Alert and awake Lying in bed No apparent distress Oriented to: person, time, and place - Skin No breakdown No abnormalities - Eyes No abnormalities - ENMT No abnormalities - Neck No abnormalities - CVS RRR - Chest No abnormalities - Resp Clear to auscultation - Abd Soft - GI + bowel sound Deferred - No abnormalities - Ext No significant edema. - MSK 4/5 weakness in all extremities. - Neuro No focal deficits - Psych No abnormalities ASSESSMENT: Pt. is a 68 yo Right-handed white male.On 08/21/2018 he was admitted to [facility] with diagnosis Metastatic Renal Cell Carcinoma.His impairment category is Debility 16 - Debility (1 6).Pre-morbidly, Pt. was independent/mod-I in Self-Care, Sphincter Control, Transfers Control, Locomo tion, Communication, and Social Cognition; and he had good Sphincter Control.Currently, he has defici ts of Self-Care, Transfers Control, Locomotion, Endurance, Balance, and Safety Awareness.Pt. is now r eferred to [facility] for acute in-patient rehabilitation in order to maximize patient's functional independence in activities of daily living, strength, ROM, and mobility.- Rehab Goal Patient has realistic goal of being discharged at assistance level 6-Elvis to reside at Home with Fam loli/Relatives. MDM/PLAN: - Physical Therapy Gait dysfunction - to improve, our physical therapists will perform initial evaluation of pt's statu s upon admission and devise an individualized program for Gait Training, and Wheel Chair mobility Inability to transfer - to improve, our physical therapists will perform initial evaluation of pt's status upon admission and devise an individualized program for Bed mobility Need for home safety evaluation - to improve, our physical therapists will perform initial evaluatio n of pt's status upon admission and devise an individualized program for Home Evaluation Need in caregiver upon discharge - to improve, our physical therapists will perform initial evaluati on of pt's status upon admission and devise an individualized program for Caregiver Training New precaution - to improve, our physical therapists will perform initial evaluation of pt's status upon admission and devise an individualized program for Patient precaution education Edema - to improve, our physical therapists will perform initial evaluation of pt's status upon admi ssion and devise an individualized program for Elevation Training, and Lymphedema Therapy Poor balance - to improve, our physical therapists will perform initial evaluation of pt's status up on admission and devise an individualized program for Balance Training Poor endurance - to improve, our physical therapists will perform initial evaluation of pt's status upon admission and devise an individualized program for Endurance Training Weakness - to improve, our physical therapists will perform initial evaluation of pt's status upon a dmission and devise an individualized program for Aquatic Therapy, Neuromuscular Reeducation, and Str engthening Achieving independence - to improve, our physical therapists will perform initial evaluation of pt's status upon admission and devise an individualized program for Community Reintegration Activities - Occupational Therapy ADL deficits - to improve, our occupation therapists will perform initial evaluation of pt's status upon admission and devise an individualized program for Bathing, Bed mobility, Community Reintegratio n, Cooking, Dressing, Eating, Fine Motor Skills, Grooming, Homemaking, Kitchen Mobility, Laundry, Pat ient Education, Safety Awareness, Splinting - Positioning, Transfers(Toilet, Tub, Shower), and Wheel Chair Management Need for critical care nurse practitioner - to improve, our occupation therapists will perform initial evaluation of pt's status upon admission and devise an individualized program for Caregiver Training Weakness - to improve, our occupation therapists will perform initial evaluation of pt's status upon admission and devise an individualized program for Aquatic Therapy, Balance, Endurance, UE ROM, and UE strengthening - Diet Type Continue Regular - Diet - Liquid Texture Continue Regular - Tube Feed Continue N/A - Diet - Solid Texture Continue Regular - Shower allowing shower FUNCTIONAL STATUS: UPDATED AT WEEKLY TEAM CONFERENCE - Bladder Same accident frequency: 7-Ind - No accidents in the past 7 days - Bowel Same accident frequency: 7-Ind - No accidents in the past 7 days - Walking Same score based on distance walked: 3(>=150ft) - Wheelchair Same score based on distance traveled: 0(N/A) FUNCTIONAL STATUS: - Self-Care A. Eating sup B. Grooming sup C. Bathing sup D. Dressing - Upper sup E. Dressing - Lower sup F. Toileting sup - Sphincter Control G: Bladder control Ind H: Bowel control Ind - Transfers Control I. Bed/Chair/Wheelchair Liban J. Toilet Liban K. Tub/Shower ADNO - Locomotion L. Walk/Wheelchair (B) Liban M. Stairs ADNO - Communication N. Comprehension (B) Ind O. Expression (B) Ind - Social Cognition P. Social Interaction Ind Q. Problem Solving Ind R. Memory Ind - Endurance Fair - Balance Fair - Safety Awareness Fair CURRENT FUNC. DEFICITS: Self-Care, Transfers Control, Locomotion, Endurance, Balance, and Safety Awareness SIGNATURE PANEL: (CDT)
--- NOTE | 2018-09-02 00:21 | FAST ---
SHIFT START DATE/TIME: 09/01/2018 19:00 (CDT) SHIFT END DATE/TIME: 09/02/2018 07:00 (CDT) NAME JOHN PAUL POLLARD DATE OF : 1950 DATE OF ADMISSION: 08/25/2018 18:25 (CDT) PHONE: AGE: 68 SSN# [id number] GENDER: Male ENCOUNTER PHYSICIAN: Dr. Gonzalez Fish M.D. ADMISSION DIAGNOSIS: - Debility 16 - Debility (16) Metastatic Renal Cell Carcinoma. EATING: Activity did not occur on this shift EATING - SCORE: 0-UNK GROOMING: Wash, rinse, and dry face GROOMING - STEP 1: Does the patient require the assistance of a person or device, or need extra time when grooming? Yes. GROOMING - STEP 2: Does the patient require the assistance of a helper? No. The patient only requires an assistive devic e, OR takes more than reasonable time to groom, OR there is a concern for safety as the patient groom s GROOMING - SCORE: 6-RACHEL BATHING: Activity did not occur on this shift BATHING - SCORE: 0-UNK DRESSING - UPPER BODY: Patient is not dressing in public clothing ARTICLES SCORE Total number of steps: 0 DRESSING - UPPER BODY - SCORE: 0-UNK DRESSING - LOWER BODY: Patient is not dressing in public clothing ARTICLES SCORE Total number of steps: 0 DRESSING - LOWER BODY - SCORE: 0-UNK TOILETING: TOILETING - STEP 1: Does the patient require the assistance of a person or device, or need extra time with toileting? Yes . TOILETING - STEP 2: Does the patient require the assistance of a helper? No. TOILETING - SCORE: 6-RACHEL BLADDER MANAGEMENT: BLADDER MANAGEMENT - STEP 1: Does the patient control the bladder completely and intentionally without equipment or devices or med ications, and is always continent? Yes. BLADDER MANAGEMENT - SCORE: 7-IND BOWEL MANAGEMENT: BOWEL MANAGEMENT - STEP 1: Does the patient control bowels completely and intentionally without equipment devices or medications AND is always continent? No. BOWEL MANAGEMENT - STEP 2: Does the patient require the assistance of a helper? No, patient requires medication for control such as stool softeners, suppositories, laxatives, enemas, or OTC medications BOWEL MANAGEMENT - SCORE: 6-RACHEL TRANSFERS: BED, CHAIR, WHEELCHAIR: TRANSFERS: BED, CHAIR, WHEELCHAIR - STEP 1: Does the patient require assistance of a person or device, or need extra time with bed, chair, or whe elchair transfers? Yes. TRANSFERS: BED, CHAIR, WHEELCHAIR - STEP 2: Does the patient require the assistance of a helper? No. Patient only requires an assistive device fo r bed, chair, wheelchair transfers such as a sliding board, grab bar, or brace, OR s/he takes more th an reasonable time, OR there is a safety concern when s/he performs the transfers TRANSFERS: BED, CHAIR, WHEELCHAIR - SCORE: 6-RACHEL TRANSFERS: TOILET: TRANSFERS: TOILET - STEP 1: Does the patient require the assistance of a person or device, or need extra time with toilet transfe rs? Yes. TRANSFERS: TOILET - STEP 2: Does the patient require the assistance of a helper? No. Patient only requires an assistive device chaparro ch as a grab bar or special seat, OR s/he takes more than reasonable time to perform toilet transfers , OR there is a safety concern when s/he performs toilet transfers. TRANSFERS: TOILET - SCORE: 6-RACHEL TRANSFERS: SHOWER: Activity did not occur on this shift TRANSFERS: SHOWER - SCORE: 0-UNK TRANSFERS: TUB: Activity did not occur on this shift TRANSFERS: TUB - SCORE: 0-UNK LOCOMOTION: WALK: Activity did not occur on this shift LOCOMOTION: WALK - SCORE: 0-UNK LOCOMOTION: WHEELCHAIR: Activity did not occur on this shift LOCOMOTION: WHEELCHAIR - SCORE: 0-UNK COMPREHENSION: COMPREHENSION: TYPE: Both COMPREHENSION - STEP 1: Does the patient require help from a person or device, or need extra time to understand complex and a bstract ideas (such as current events, finances, discharge planning, medical issues, relationships, e tc)? No. COMPREHENSION - STEP 2: Does the patient need extra time, require an assistive device (such as glasses for visual comprehensi on or a hearing aid for auditory comprehension) or does s/he have mild difficulty understanding compl ex and abstract information? Yes. COMPREHENSION - SCORE: 6-RACHEL EXPRESSION EXPRESSION: TYPE: Both EXPRESSION - STEP 1: Does the patient require help from a person or device, or need extra time expressing complex and abst ract ideas (such as current events, finances, discharge planning, medical issues, relationships, etc) ? No. EXPRESSION - STEP 2: Does the patient need extra time, require an assistive device (such as augmentive communication syste m or a communication board), OR does s/he have mild difficulty expressing complex and abstract ideas (including mild dysarthria or mild word-find problems)? Yes. EXPRESSION - SCORE: 6-RACHEL SOCIAL INTERACTION: SOCIAL INTERACTION - STEP 1: Does the patient require a helper to interact with others in social and therapeutic situations? No. SOCIAL INTERACTION - STEP 2: Does the patient need extra time in social situations, OR does s/he interact with staff, other patien ts, and family members ONLY in structured environments, OR does s/he require medication for social in teraction? Yes, patient needs extra time SOCIAL INTERACTION - SCORE: 6-RACHEL PROBLEM SOLVING: PROBLEM SOLVING - STEP 1: Does the patient need help from a person or device, or need extra time to solve complex problems such as managing a checking account or confronting interpersonal problems? No. PROBLEM SOLVING - STEP 2: Does the patient require extra time to make decisions or solve problems, OR does s/he have slight dif ficulty reading, initiating, or self-correcting in unfamiliar situations? Yes, patient needs extra ti me. PROBLEM SOLVING - SCORE: 6-RACHEL MEMORY: MEMORY - STEP 1: Does the patient need help from a person or device, or need extra time to remember frequently encount ered people, daily routines, and executing requests? No. MEMORY - STEP 2: Does the patient have slight difficulty recognizing frequently encountered people, daily routines, or executing requests without the need for repetition or using self-initiated or environmental cues to remember? Yes. MEMORY - SCORE: 6-RACHEL SIGNATURE PANEL: The following modified sections: Eating - Score, Grooming - Score, Dressing - Upper Body - Score, James ssing - Lower Body - Score, Toileting - Score, Bladder Management - Score, Bowel Management - Score, Transfers: Bed, Chair, Wheelchair - Score, Transfers: Toilet - Score, Transfers: Shower - Score, Funes sfers: Tub - Score, Locomotion: Walk - Score, Locomotion: Wheelchair - Score, Comprehension - Score, Expression - Score, Social Interaction - Score, Problem Solving - Score, Memory - Score were [electro nically] signed by Niyah Ortiz CNA on SatSep 02 2018 00:20:39 GMT-0500 (Central Daylight Time)
[2018-09-02] MEDS: METOPROLOL XL 50 MG TAB PO SCH ×2 (05:26→16:55)
[2018-09-02] MEDS: ENOXAPARIN 40 MG/0.4 ML SQ SCH (07:12)
[2018-09-02] MEDS: INSULIN -REGULAR HUMAN 50 UNIT/0.5 ML ML SQ SCH ×4 (07:30→20:28)
[2018-09-02] MEDS: PROMOD 30 ML DOSE PO SCH ×2 (08:00→20:28)
[2018-09-02] MEDS: ROSUVASTATIN 10 MG TAB PO SCH (08:18)
[2018-09-02] MEDS: FERROUS SULFATE 325 MG TAB PO SCH (08:18)
[2018-09-02] MEDS: AMLODIPINE 5 MG TAB PO SCH (08:18)
[2018-09-02] MEDS: DOCUSATE NA 100 MG CAP PO SCH ×2 (08:19→20:28)
[2018-09-02] MEDS: FOLIC ACID 1 MG TABLET PO SCH (08:19)
[2018-09-02] MEDS: TAMSULOSIN 0.4 MG SR CAP PO SCH (08:19)
[2018-09-02] MEDS: FE SULF/FA/VIT B COMP & C TAB PO SCH (08:19)
[2018-09-02] MEDS: TRAMADOL HCL 50 MG TAB PO PRN (08:55)
--- NOTE | 2018-09-02 15:19 | FAST ---
ENCOUNTER DATE AND TIME: 09/02/2018 08:00 (CDT) NAME JOHN PAUL POLLARD DATE OF : 1950 DATE OF ADMISSION: 08/25/2018 18:25 (CDT) PHONE: AGE: 68 SSN# [id number] GENDER: Male ENCOUNTER PHYSICIAN: Dr. Gonzalez Fish M.D. ADMISSION DIAGNOSIS: - Debility 16 - Debility (16) Metastatic Renal Cell Carcinoma. EATING: Activity did not occur on this shift EATING - SCORE: 0-UNK GROOMING: Activity did not occur on this shift GROOMING - SCORE: 0-UNK BATHING: Activity did not occur on this shift BATHING - SCORE: 0-UNK DRESSING - UPPER BODY: Activity did not occur on this shift Patient is not dressing in public clothing ARTICLES SCORE Total number of steps: 0 DRESSING - UPPER BODY - SCORE: 0-UNK DRESSING - LOWER BODY: Activity did not occur on this shift Patient is not dressing in public clothing ARTICLES SCORE Total number of steps: 0 DRESSING - LOWER BODY - SCORE: 0-UNK TOILETING: Activity did not occur on this shift TOILETING - SCORE: 0-UNK BLADDER MANAGEMENT: Activity did not occur on this shift BLADDER MANAGEMENT - SCORE: 7-IND BOWEL MANAGEMENT: Activity did not occur on this shift BOWEL MANAGEMENT - SCORE: 7-IND TRANSFERS: BED, CHAIR, WHEELCHAIR: TRANSFERS: BED, CHAIR, WHEELCHAIR - STEP 1: Does the patient require assistance of a person or device, or need extra time with bed, chair, or whe elchair transfers? Yes. TRANSFERS: BED, CHAIR, WHEELCHAIR - STEP 2: Does the patient require the assistance of a helper? No. Patient only requires an assistive device fo r bed, chair, wheelchair transfers such as a sliding board, grab bar, or brace, OR s/he takes more th an reasonable time, OR there is a safety concern when s/he performs the transfers TRANSFERS: BED, CHAIR, WHEELCHAIR - SCORE: 6-RACHEL TRANSFERS: TOILET: Activity did not occur on this shift TRANSFERS: TOILET - SCORE: 0-UNK TRANSFERS: SHOWER: Activity did not occur on this shift TRANSFERS: SHOWER - SCORE: 0-UNK TRANSFERS: TUB: Activity did not occur on this shift TRANSFERS: TUB - SCORE: 0-UNK LOCOMOTION: WALK: LOCOMOTION: WALK - STEP 1: Does the patient need help from a person or device, or need extra time to walk 150 feet? No. LOCOMOTION: WALK - STEP 2: Does the patient need an assistive device (such as an orthosis, prosthesis, crutches, or walker) to g o 150 feet, OR does s/he take more than reasonable time, OR is there a concern for safety? Yes, the p atient needs an assistive device LOCOMOTION: WALK - SCORE: 6-RACHEL LOCOMOTION: WHEELCHAIR: Activity did not occur on this shift LOCOMOTION: WHEELCHAIR - SCORE: 0-UNK LOCOMOTION: STAIRS: LOCOMOTION: STAIRS - STEP 1: Does the patient need help to go up and down 12 to 14 stairs? No. LOCOMOTION: STAIRS - STEP 2: Does the patient require an assistive device - such as handrails or cane - to go up and down one flig ht of stairs, OR does s/he take more than reasonable time, OR is there a concern for safety? Yes, the patient requires an assistive device LOCOMOTION: STAIRS - SCORE: 6-RACHEL COMPREHENSION: COMPREHENSION - SCORE: 0-UNK EXPRESSION EXPRESSION - SCORE: 0-UNK SOCIAL INTERACTION: SOCIAL INTERACTION - SCORE: 0-UNK PROBLEM SOLVING: PROBLEM SOLVING - SCORE: 0-UNK MEMORY: MEMORY - SCORE: 0-UNK SIGNATURE PANEL: The following modified sections: Transfers: Bed, Chair, Wheelchair - Score, Transfers: Toilet - Score , Locomotion: Walk - Score, Locomotion: Wheelchair - Score, Locomotion: Stairs - Score were [ru clayton] signed by Jimbo Burgess PTA on SatSep 02 2018 15:19:11 GMT-0500 (Central Daylight Time)
--- NOTE | 2018-09-02 18:42 | R.PN ---
ENCOUNTER DATE AND TIME: 09/02/2018 18:35 (CDT) NAME JOHN PAUL POLLARD DATE OF : 1950 DATE OF ADMISSION: 08/25/2018 18:25 (CDT) Metastatic Renal Cell CarcinomaCHIEF COMPLAINT: Debility, metastatic renal cell carcinoma SUBJECTIVE: Pt denied any depression. Pt denied any Shortness of Breath. Ambulated 1000' with modified independence using a single prong cane. Up and down 15 steps with modif ied independence. Hgb 9.6, WBC 4.7, glucose 99 to 123, UA is normal. VITAL SIGNS Temperature: 97.8 F SBP/DBP: 136/68 Pulse: 60 Resp: 16 MEDICATION ALLERGIES: No Known Drug Allergies (NKDA) ENVIRONMENTAL ALLERGIES: None Known - Substance Allergies None Known - Other Allergies None Known NURSING: - Shower allowing shower ACTIVITIES OOB only with supervision THERAPIES: - Occupational Therapy Evaluate and Treat. - Physical Therapy Evaluate and Treat. PHYSICAL EXAM - Gen Alert and awake Lying in bed No apparent distress Oriented to: person, time, and place - Skin No breakdown No abnormalities - Eyes No abnormalities - ENMT No abnormalities - Neck No abnormalities - CVS RRR - Chest No abnormalities - Resp Clear to auscultation - Abd Soft - GI + bowel sound Deferred - No abnormalities - Ext No significant edema. - MSK 4/5 weakness in all extremities. - Neuro No focal deficits - Psych No abnormalities ASSESSMENT: Pt. is a 68 yo Right-handed white male.On 08/21/2018 he was admitted to [facility] with diagnosis Metastatic Renal Cell Carcinoma.His impairment category is Debility 16 - Debility (1 6).Pre-morbidly, Pt. was independent/mod-I in Self-Care, Sphincter Control, Transfers Control, Locomo tion, Communication, and Social Cognition; and he had good Sphincter Control.Currently, he has defici ts of Self-Care, Transfers Control, Locomotion, Endurance, Balance, and Safety Awareness.Pt. is now r eferred to [facility] for acute in-patient rehabilitation in order to maximize patient's functional independence in activities of daily living, strength, ROM, and mobility.- Rehab Goal Patient has realistic goal of being discharged at assistance level 6-Elvis to reside at Home with Fam loli/Relatives. MDM/PLAN: - Physical Therapy Gait dysfunction - to improve, our physical therapists will perform initial evaluation of pt's statu s upon admission and devise an individualized program for Gait Training, and Wheel Chair mobility Inability to transfer - to improve, our physical therapists will perform initial evaluation of pt's status upon admission and devise an individualized program for Bed mobility Need for home safety evaluation - to improve, our physical therapists will perform initial evaluatio n of pt's status upon admission and devise an individualized program for Home Evaluation Need in caregiver upon discharge - to improve, our physical therapists will perform initial evaluati on of pt's status upon admission and devise an individualized program for Caregiver Training New precaution - to improve, our physical therapists will perform initial evaluation of pt's status upon admission and devise an individualized program for Patient precaution education Edema - to improve, our physical therapists will perform initial evaluation of pt's status upon admi ssion and devise an individualized program for Elevation Training, and Lymphedema Therapy Poor balance - to improve, our physical therapists will perform initial evaluation of pt's status up on admission and devise an individualized program for Balance Training Poor endurance - to improve, our physical therapists will perform initial evaluation of pt's status upon admission and devise an individualized program for Endurance Training Weakness - to improve, our physical therapists will perform initial evaluation of pt's status upon a dmission and devise an individualized program for Aquatic Therapy, Neuromuscular Reeducation, and Str engthening Achieving independence - to improve, our physical therapists will perform initial evaluation of pt's status upon admission and devise an individualized program for Community Reintegration Activities - Occupational Therapy ADL deficits - to improve, our occupation therapists will perform initial evaluation of pt's status upon admission and devise an individualized program for Bathing, Bed mobility, Community Reintegratio n, Cooking, Dressing, Eating, Fine Motor Skills, Grooming, Homemaking, Kitchen Mobility, Laundry, Pat ient Education, Safety Awareness, Splinting - Positioning, Transfers(Toilet, Tub, Shower), and Wheel Chair Management Need for personal care aide - to improve, our occupation therapists will perform initial evaluation of pt's status upon admission and devise an individualized program for Caregiver Training Weakness - to improve, our occupation therapists will perform initial evaluation of pt's status upon admission and devise an individualized program for Aquatic Therapy, Balance, Endurance, UE ROM, and UE strengthening - Diet Type Continue Regular - Diet - Liquid Texture Continue Regular - Tube Feed Continue N/A - Diet - Solid Texture Continue Regular - Shower allowing shower FUNCTIONAL STATUS: UPDATED AT WEEKLY TEAM CONFERENCE - Bladder Same accident frequency: 7-Ind - No accidents in the past 7 days - Bowel Same accident frequency: 7-Ind - No accidents in the past 7 days - Walking Same score based on distance walked: 3(>=150ft) - Wheelchair Same score based on distance traveled: 0(N/A) FUNCTIONAL STATUS: - Self-Care A. Eating sup B. Grooming sup C. Bathing sup D. Dressing - Upper sup E. Dressing - Lower sup F. Toileting sup - Sphincter Control G: Bladder control Ind H: Bowel control Ind - Transfers Control I. Bed/Chair/Wheelchair Liban J. Toilet Liban K. Tub/Shower ADNO - Locomotion L. Walk/Wheelchair (B) Liban M. Stairs ADNO - Communication N. Comprehension (B) Ind O. Expression (B) Ind - Social Cognition P. Social Interaction Ind Q. Problem Solving Ind R. Memory Ind - Endurance Fair - Balance Fair - Safety Awareness Fair CURRENT FUNC. DEFICITS: Self-Care, Transfers Control, Locomotion, Endurance, Balance, and Safety Awareness SIGNATURE PANEL: (CDT)
[2018-09-02] MEDS: DOCUSATE NA/SENNA CONC 1 TAB PO SCH (20:28)
--- NOTE | 2018-09-03 00:58 | FAST ---
SHIFT START DATE/TIME: 09/02/2018 19:00 (CDT) SHIFT END DATE/TIME: 09/03/2018 07:00 (CDT) NAME JOHN PAUL POLLARD DATE OF : 1950 DATE OF ADMISSION: 08/25/2018 18:25 (CDT) PHONE: AGE: 68 SSN# [id number] GENDER: Male ENCOUNTER PHYSICIAN: Dr. Gonzalez Fish M.D. ADMISSION DIAGNOSIS: - Debility 16 - Debility (16) Metastatic Renal Cell Carcinoma. EATING: Activity did not occur on this shift EATING - SCORE: 0-UNK GROOMING: Activity did not occur on this shift GROOMING - SCORE: 0-UNK BATHING: Activity did not occur on this shift BATHING - SCORE: 0-UNK DRESSING - UPPER BODY: Patient is not dressing in public clothing ARTICLES SCORE Total number of steps: 0 DRESSING - UPPER BODY - SCORE: 0-UNK DRESSING - LOWER BODY: Patient is not dressing in public clothing ARTICLES SCORE Total number of steps: 0 DRESSING - LOWER BODY - SCORE: 0-UNK TOILETING: TOILETING - STEP 1: Does the patient require the assistance of a person or device, or need extra time with toileting? Yes . TOILETING - STEP 2: Does the patient require the assistance of a helper? No. TOILETING - SCORE: 6-RACHEL BLADDER MANAGEMENT: BLADDER MANAGEMENT - STEP 1: Does the patient control the bladder completely and intentionally without equipment or devices or med ications, and is always continent? Yes. BLADDER MANAGEMENT - SCORE: 7-IND BOWEL MANAGEMENT: Activity did not occur on this shift BOWEL MANAGEMENT - SCORE: 7-IND TRANSFERS: BED, CHAIR, WHEELCHAIR: TRANSFERS: BED, CHAIR, WHEELCHAIR - STEP 1: Does the patient require assistance of a person or device, or need extra time with bed, chair, or whe elchair transfers? Yes. TRANSFERS: BED, CHAIR, WHEELCHAIR - STEP 2: Does the patient require the assistance of a helper? No. Patient only requires an assistive device fo r bed, chair, wheelchair transfers such as a sliding board, grab bar, or brace, OR s/he takes more th an reasonable time, OR there is a safety concern when s/he performs the transfers TRANSFERS: BED, CHAIR, WHEELCHAIR - SCORE: 6-RACHEL TRANSFERS: TOILET: Activity did not occur on this shift TRANSFERS: TOILET - SCORE: 0-UNK TRANSFERS: SHOWER: Activity did not occur on this shift TRANSFERS: SHOWER - SCORE: 0-UNK TRANSFERS: TUB: Activity did not occur on this shift TRANSFERS: TUB - SCORE: 0-UNK LOCOMOTION: WALK: Activity did not occur on this shift LOCOMOTION: WALK - SCORE: 0-UNK LOCOMOTION: WHEELCHAIR: Activity did not occur on this shift LOCOMOTION: WHEELCHAIR - SCORE: 0-UNK COMPREHENSION: COMPREHENSION: TYPE: Both COMPREHENSION - STEP 1: Does the patient require help from a person or device, or need extra time to understand complex and a bstract ideas (such as current events, finances, discharge planning, medical issues, relationships, e tc)? No. COMPREHENSION - STEP 2: Does the patient need extra time, require an assistive device (such as glasses for visual comprehensi on or a hearing aid for auditory comprehension) or does s/he have mild difficulty understanding compl ex and abstract information? Yes. COMPREHENSION - SCORE: 6-RACHEL EXPRESSION EXPRESSION: TYPE: Both EXPRESSION - STEP 1: Does the patient require help from a person or device, or need extra time expressing complex and abst ract ideas (such as current events, finances, discharge planning, medical issues, relationships, etc) ? No. EXPRESSION - STEP 2: Does the patient need extra time, require an assistive device (such as augmentive communication syste m or a communication board), OR does s/he have mild difficulty expressing complex and abstract ideas (including mild dysarthria or mild word-find problems)? No. EXPRESSION - SCORE: 7-IND SOCIAL INTERACTION: SOCIAL INTERACTION - STEP 1: Does the patient require a helper to interact with others in social and therapeutic situations? No. SOCIAL INTERACTION - STEP 2: Does the patient need extra time in social situations, OR does s/he interact with staff, other patien ts, and family members ONLY in structured environments, OR does s/he require medication for social in teraction? Yes, patient needs extra time SOCIAL INTERACTION - SCORE: 6-RACHEL PROBLEM SOLVING: PROBLEM SOLVING - STEP 1: Does the patient need help from a person or device, or need extra time to solve complex problems such as managing a checking account or confronting interpersonal problems? No. PROBLEM SOLVING - STEP 2: Does the patient require extra time to make decisions or solve problems, OR does s/he have slight dif ficulty reading, initiating, or self-correcting in unfamiliar situations? Yes, patient needs extra ti me. PROBLEM SOLVING - SCORE: 6-RACHEL MEMORY: MEMORY - STEP 1: Does the patient need help from a person or device, or need extra time to remember frequently encount ered people, daily routines, and executing requests? No. MEMORY - STEP 2: Does the patient have slight difficulty recognizing frequently encountered people, daily routines, or executing requests without the need for repetition or using self-initiated or environmental cues to remember? Yes. MEMORY - SCORE: 6-RACHEL SIGNATURE PANEL: The following modified sections: Eating - Score, Grooming - Score, Dressing - Upper Body - Score, James ssing - Lower Body - Score, Toileting - Score, Bladder Management - Score, Bowel Management - Score, Transfers: Bed, Chair, Wheelchair - Score, Transfers: Toilet - Score, Transfers: Shower - Score, Funes sfers: Tub - Score, Locomotion: Walk - Score, Locomotion: Wheelchair - Score, Comprehension - Score, Expression - Score, Social Interaction - Score, Problem Solving - Score, Memory - Score were [electro nically] signed by Niyah Ortiz CNA on SatSep 03 2018 00:57:46 GMT-0500 (Central Daylight Time)
[2018-09-03] MEDS: METOPROLOL XL 50 MG TAB PO SCH ×2 (05:17→16:58)
[2018-09-03] MEDS: INSULIN -REGULAR HUMAN 50 UNIT/0.5 ML ML SQ SCH ×4 (06:45→20:02)
[2018-09-03] MEDS: ENOXAPARIN 40 MG/0.4 ML SQ SCH (07:10)
[2018-09-03] MEDS: FERROUS SULFATE 325 MG TAB PO SCH (08:20)
[2018-09-03] MEDS: TAMSULOSIN 0.4 MG SR CAP PO SCH (08:20)
[2018-09-03] MEDS: DOCUSATE NA 100 MG CAP PO SCH ×2 (08:20→20:02)
[2018-09-03] MEDS: FOLIC ACID 1 MG TABLET PO SCH (08:21)
[2018-09-03] MEDS: FE SULF/FA/VIT B COMP & C TAB PO SCH (08:21)
[2018-09-03] MEDS: PROMOD 30 ML DOSE PO SCH ×2 (08:21→20:03)
[2018-09-03] MEDS: ROSUVASTATIN 10 MG TAB PO SCH (08:21)
[2018-09-03] MEDS: AMLODIPINE 5 MG TAB PO SCH (08:21)
--- NOTE | 2018-09-03 09:57 | FAST ---
SHIFT START DATE/TIME: 09/03/2018 07:00 (CDT) SHIFT END DATE/TIME: 09/03/2018 19:00 (CDT) NAME JOHN PAUL POLLARD DATE OF : 1950 DATE OF ADMISSION: 08/25/2018 18:25 (CDT) PHONE: AGE: 68 SSN# [id number] GENDER: Male ENCOUNTER PHYSICIAN: Dr. Gonzalez Fish M.D. ADMISSION DIAGNOSIS: - Debility 16 - Debility (16) Metastatic Renal Cell Carcinoma. EATING: EATING - STEP 1: Does the patient require the assistance of a person or device, or need extra time when eating? Yes. EATING - STEP 2: Does the patient require the assistance of a helper? No, patient only requires an assistive device, O R s/he takes more than reasonable time to eat, OR there is a safety concern, OR s/he requires modifie d food consistency EATING - SCORE: 6-RACHEL GROOMING: Comb/brush hair Oral care Wash, rinse, and dry face Wash, rinse, and dry hands GROOMING - STEP 1: Does the patient require the assistance of a person or device, or need extra time when grooming? No. GROOMING - SCORE: 7-IND BATHING: Activity did not occur on this shift BATHING - SCORE: 0-UNK DRESSING - UPPER BODY: Activity did not occur on this shift ARTICLES SCORE Total number of steps: 0 DRESSING - UPPER BODY - SCORE: 0-UNK DRESSING - LOWER BODY: Activity did not occur on this shift ARTICLES SCORE Total number of steps: 0 DRESSING - LOWER BODY - SCORE: 0-UNK TOILETING: TOILETING - STEP 1: Does the patient require the assistance of a person or device, or need extra time with toileting? Yes . TOILETING - STEP 2: Does the patient require the assistance of a helper? No. TOILETING - SCORE: 6-RACHEL BLADDER MANAGEMENT: BLADDER MANAGEMENT - STEP 1: Does the patient control the bladder completely and intentionally without equipment or devices or med ications, and is always continent? No. BLADDER MANAGEMENT - STEP 2: Does the patient require the assistance of a helper? No, patient requires and independently uses an a ssistive device, such as a urinal, bedpan, bedside commode, catheter, absorbent pad, or collecting de vice BLADDER MANAGEMENT - SCORE: 6-RACHEL BOWEL MANAGEMENT: Activity did not occur on this shift BOWEL MANAGEMENT - SCORE: 7-IND TRANSFERS: BED, CHAIR, WHEELCHAIR: TRANSFERS: BED, CHAIR, WHEELCHAIR - STEP 1: Does the patient require assistance of a person or device, or need extra time with bed, chair, or whe elchair transfers? Yes. TRANSFERS: BED, CHAIR, WHEELCHAIR - STEP 2: Does the patient require the assistance of a helper? No. Patient only requires an assistive device fo r bed, chair, wheelchair transfers such as a sliding board, grab bar, or brace, OR s/he takes more th an reasonable time, OR there is a safety concern when s/he performs the transfers TRANSFERS: BED, CHAIR, WHEELCHAIR - SCORE: 6-RACHEL TRANSFERS: TOILET: TRANSFERS: TOILET - STEP 1: Does the patient require the assistance of a person or device, or need extra time with toilet transfe rs? Yes. TRANSFERS: TOILET - STEP 2: Does the patient require the assistance of a helper? No. Patient only requires an assistive device chaparro ch as a grab bar or special seat, OR s/he takes more than reasonable time to perform toilet transfers , OR there is a safety concern when s/he performs toilet transfers. TRANSFERS: TOILET - SCORE: 6-RACHEL TRANSFERS: SHOWER: Activity did not occur on this shift TRANSFERS: SHOWER - SCORE: 0-UNK TRANSFERS: TUB: Activity did not occur on this shift TRANSFERS: TUB - SCORE: 0-UNK LOCOMOTION: WALK: Activity did not occur on this shift LOCOMOTION: WALK - SCORE: 0-UNK LOCOMOTION: WHEELCHAIR: Activity did not occur on this shift LOCOMOTION: WHEELCHAIR - SCORE: 0-UNK COMPREHENSION: COMPREHENSION: TYPE: Both COMPREHENSION - STEP 1: Does the patient require help from a person or device, or need extra time to understand complex and a bstract ideas (such as current events, finances, discharge planning, medical issues, relationships, e tc)? No. COMPREHENSION - STEP 2: Does the patient need extra time, require an assistive device (such as glasses for visual comprehensi on or a hearing aid for auditory comprehension) or does s/he have mild difficulty understanding compl ex and abstract information? Yes. COMPREHENSION - SCORE: 6-RACHEL EXPRESSION EXPRESSION: TYPE: Both EXPRESSION - STEP 1: Does the patient require help from a person or device, or need extra time expressing complex and abst ract ideas (such as current events, finances, discharge planning, medical issues, relationships, etc) ? No. EXPRESSION - STEP 2: Does the patient need extra time, require an assistive device (such as augmentive communication syste m or a communication board), OR does s/he have mild difficulty expressing complex and abstract ideas (including mild dysarthria or mild word-find problems)? Yes. EXPRESSION - SCORE: 6-RACHEL SOCIAL INTERACTION: SOCIAL INTERACTION - STEP 1: Does the patient require a helper to interact with others in social and therapeutic situations? No. SOCIAL INTERACTION - STEP 2: Does the patient need extra time in social situations, OR does s/he interact with staff, other patien ts, and family members ONLY in structured environments, OR does s/he require medication for social in teraction? Yes, patient needs extra time SOCIAL INTERACTION - SCORE: 6-RACHEL PROBLEM SOLVING: PROBLEM SOLVING - STEP 1: Does the patient need help from a person or device, or need extra time to solve complex problems such as managing a checking account or confronting interpersonal problems? No. PROBLEM SOLVING - STEP 2: Does the patient require extra time to make decisions or solve problems, OR does s/he have slight dif ficulty reading, initiating, or self-correcting in unfamiliar situations? Yes, patient needs extra ti me. PROBLEM SOLVING - SCORE: 6-RACHEL MEMORY: MEMORY - STEP 1: Does the patient need help from a person or device, or need extra time to remember frequently encount ered people, daily routines, and executing requests? No. MEMORY - STEP 2: Does the patient have slight difficulty recognizing frequently encountered people, daily routines, or executing requests without the need for repetition or using self-initiated or environmental cues to remember? Yes. MEMORY - SCORE: 6-RACHEL SIGNATURE PANEL: The following modified sections: Eating - Score, Grooming - Score, Bathing - Score, Dressing - Upper Body - Score, Dressing - Lower Body - Score, Toileting - Score, Bladder Management - Score, Bowel Man agement - Score, Transfers: Toilet - Score, Transfers: Shower - Score, Transfers: Tub - Score, Locomo tion: Walk - Score, Locomotion: Wheelchair - Score, Comprehension - Score, Transfers: Bed, Chair, Whe elchair - Score, Expression - Score, Social Interaction - Score, Problem Solving - Score, Memory - Sc ore were [electronically] signed by Kevan Cardona on SatSep 03 2018 09:56:28 GMT-0500 (Central Daylight Time)
--- NOTE | 2018-09-03 19:14 | R.PN ---
ENCOUNTER DATE AND TIME: 09/03/2018 19:09 (CDT) NAME JOHN PAUL POLLARD DATE OF : 1950 DATE OF ADMISSION: 08/25/2018 18:25 (CDT) Metastatic Renal Cell CarcinomaCHIEF COMPLAINT: Debility, metastatic renal cell carcinoma SUBJECTIVE: Pt denied any depression. Pt denied any Shortness of Breath. Ambulated 1750' with modified independence using a single prong cane. Up and down 15 steps with modif ied independence. Hgb 9.6, WBC 4.7, glucose 99 to 123, UA is normal. VITAL SIGNS Temperature: 97.8 F SBP/DBP: 150/70 Pulse: 63 Resp: 16 MEDICATION ALLERGIES: No Known Drug Allergies (NKDA) ENVIRONMENTAL ALLERGIES: None Known - Substance Allergies None Known - Other Allergies None Known NURSING: - Shower allowing shower ACTIVITIES OOB only with supervision THERAPIES: - Occupational Therapy Evaluate and Treat. - Physical Therapy Evaluate and Treat. PHYSICAL EXAM - Gen Alert and awake Lying in bed No apparent distress Oriented to: person, time, and place - Skin No breakdown No abnormalities - Eyes No abnormalities - ENMT No abnormalities - Neck No abnormalities - CVS RRR - Chest No abnormalities - Resp Clear to auscultation - Abd Soft - GI + bowel sound Deferred - No abnormalities - Ext No significant edema. - MSK 4/5 weakness in all extremities. - Neuro No focal deficits - Psych No abnormalities ASSESSMENT: Pt. is a 68 yo Right-handed white male.On 08/21/2018 he was admitted to [facility] with diagnosis Metastatic Renal Cell Carcinoma.His impairment category is Debility 16 - Debility (1 6).Pre-morbidly, Pt. was independent/mod-I in Self-Care, Sphincter Control, Transfers Control, Locomo tion, Communication, and Social Cognition; and he had good Sphincter Control.Currently, he has defici ts of Self-Care, Transfers Control, Locomotion, Endurance, Balance, and Safety Awareness.Pt. is now r eferred to [facility] for acute in-patient rehabilitation in order to maximize patient's functional independence in activities of daily living, strength, ROM, and mobility.- Rehab Goal Patient has realistic goal of being discharged at assistance level 6-Elvis to reside at Home with Fam loli/Relatives. MDM/PLAN: - Physical Therapy Gait dysfunction - to improve, our physical therapists will perform initial evaluation of pt's statu s upon admission and devise an individualized program for Gait Training, and Wheel Chair mobility Inability to transfer - to improve, our physical therapists will perform initial evaluation of pt's status upon admission and devise an individualized program for Bed mobility Need for home safety evaluation - to improve, our physical therapists will perform initial evaluatio n of pt's status upon admission and devise an individualized program for Home Evaluation Need in caregiver upon discharge - to improve, our physical therapists will perform initial evaluati on of pt's status upon admission and devise an individualized program for Caregiver Training New precaution - to improve, our physical therapists will perform initial evaluation of pt's status upon admission and devise an individualized program for Patient precaution education Edema - to improve, our physical therapists will perform initial evaluation of pt's status upon admi ssion and devise an individualized program for Elevation Training, and Lymphedema Therapy Poor balance - to improve, our physical therapists will perform initial evaluation of pt's status up on admission and devise an individualized program for Balance Training Poor endurance - to improve, our physical therapists will perform initial evaluation of pt's status upon admission and devise an individualized program for Endurance Training Weakness - to improve, our physical therapists will perform initial evaluation of pt's status upon a dmission and devise an individualized program for Aquatic Therapy, Neuromuscular Reeducation, and Str engthening Achieving independence - to improve, our physical therapists will perform initial evaluation of pt's status upon admission and devise an individualized program for Community Reintegration Activities - Occupational Therapy ADL deficits - to improve, our occupation therapists will perform initial evaluation of pt's status upon admission and devise an individualized program for Bathing, Bed mobility, Community Reintegratio n, Cooking, Dressing, Eating, Fine Motor Skills, Grooming, Homemaking, Kitchen Mobility, Laundry, Pat ient Education, Safety Awareness, Splinting - Positioning, Transfers(Toilet, Tub, Shower), and Wheel Chair Management Need for personal care assistant - to improve, our occupation therapists will perform initial evaluation of pt's status upon admission and devise an individualized program for Caregiver Training Weakness - to improve, our occupation therapists will perform initial evaluation of pt's status upon admission and devise an individualized program for Aquatic Therapy, Balance, Endurance, UE ROM, and UE strengthening - Diet Type Continue Regular - Diet - Liquid Texture Continue Regular - Tube Feed Continue N/A - Diet - Solid Texture Continue Regular - Shower allowing shower FUNCTIONAL STATUS: UPDATED AT WEEKLY TEAM CONFERENCE - Bladder Same accident frequency: 7-Ind - No accidents in the past 7 days - Bowel Same accident frequency: 7-Ind - No accidents in the past 7 days - Walking Same score based on distance walked: 3(>=150ft) - Wheelchair Same score based on distance traveled: 0(N/A) FUNCTIONAL STATUS: - Self-Care A. Eating sup B. Grooming sup C. Bathing sup D. Dressing - Upper sup E. Dressing - Lower sup F. Toileting sup - Sphincter Control G: Bladder control Ind H: Bowel control Ind - Transfers Control I. Bed/Chair/Wheelchair Liban J. Toilet Liban K. Tub/Shower ADNO - Locomotion L. Walk/Wheelchair (B) Liban M. Stairs ADNO - Communication N. Comprehension (B) Ind O. Expression (B) Ind - Social Cognition P. Social Interaction Ind Q. Problem Solving Ind R. Memory Ind - Endurance Fair - Balance Fair - Safety Awareness Fair CURRENT FUNC. DEFICITS: Self-Care, Transfers Control, Locomotion, Endurance, Balance, and Safety Awareness SIGNATURE PANEL: (CDT)
[2018-09-03] MEDS: MELATONIN 3 MG TABLET PO PRN (20:02)
[2018-09-03] MEDS: DOCUSATE NA/SENNA CONC 1 TAB PO SCH (20:02)
[2018-09-03] MEDS: HYDROCODONE/APAP 5/325 MG TAB PO PRN (20:05)
--- NOTE | 2018-09-04 02:25 | FAST ---
SHIFT START DATE/TIME: 09/03/2018 19:00 (CDT) SHIFT END DATE/TIME: 09/04/2018 07:00 (CDT) NAME JOHN PAUL POLLARD DATE OF : 1950 DATE OF ADMISSION: 08/25/2018 18:25 (CDT) PHONE: AGE: 68 SSN# [id number] GENDER: Male ENCOUNTER PHYSICIAN: Dr. Gonzalez Fish M.D. ADMISSION DIAGNOSIS: - Debility 16 - Debility (16) Metastatic Renal Cell Carcinoma. EATING: Activity did not occur on this shift EATING - SCORE: 0-UNK GROOMING: Activity did not occur on this shift GROOMING - SCORE: 0-UNK BATHING: Activity did not occur on this shift BATHING - SCORE: 0-UNK DRESSING - UPPER BODY: Activity did not occur on this shift ARTICLES SCORE Total number of steps: 0 DRESSING - UPPER BODY - SCORE: 0-UNK DRESSING - LOWER BODY: Activity did not occur on this shift ARTICLES SCORE Total number of steps: 0 DRESSING - LOWER BODY - SCORE: 0-UNK TOILETING: TOILETING - STEP 1: Does the patient require the assistance of a person or device, or need extra time with toileting? Yes . TOILETING - STEP 2: Does the patient require the assistance of a helper? Yes. TOILETING - STEP 3: How much assistance does the patient require from the helper? Only supervision TOILETING - SCORE: 5-SUP BLADDER MANAGEMENT: BLADDER MANAGEMENT - STEP 1: Does the patient control the bladder completely and intentionally without equipment or devices or med ications, and is always continent? Yes. BLADDER MANAGEMENT - SCORE: 7-IND BOWEL MANAGEMENT: Activity did not occur on this shift BOWEL MANAGEMENT - SCORE: 7-IND TRANSFERS: BED, CHAIR, WHEELCHAIR: TRANSFERS: BED, CHAIR, WHEELCHAIR - STEP 1: Does the patient require assistance of a person or device, or need extra time with bed, chair, or whe elchair transfers? Yes. TRANSFERS: BED, CHAIR, WHEELCHAIR - STEP 2: Does the patient require the assistance of a helper? Yes. TRANSFERS: BED, CHAIR, WHEELCHAIR - STEP 3: How much assistance does the patient require from the helper? Only supervision TRANSFERS: BED, CHAIR, WHEELCHAIR - SCORE: 5-SUP TRANSFERS: TOILET: TRANSFERS: TOILET - STEP 1: Does the patient require the assistance of a person or device, or need extra time with toilet transfe rs? Yes. TRANSFERS: TOILET - STEP 2: Does the patient require the assistance of a helper? Yes. TRANSFERS: TOILET - STEP 3: How much assistance does the patient require from the helper? Only supervision, cuing, coaxing, OR he lp to set out transfer equipment or to lock brakes and/or lift foot rests TRANSFERS: TOILET - SCORE: 5-SUP TRANSFERS: SHOWER: Activity did not occur on this shift TRANSFERS: SHOWER - SCORE: 0-UNK TRANSFERS: TUB: Activity did not occur on this shift TRANSFERS: TUB - SCORE: 0-UNK LOCOMOTION: WALK: Activity did not occur on this shift LOCOMOTION: WALK - SCORE: 0-UNK LOCOMOTION: WHEELCHAIR: Activity did not occur on this shift LOCOMOTION: WHEELCHAIR - SCORE: 0-UNK COMPREHENSION: COMPREHENSION: TYPE: Both COMPREHENSION - STEP 1: Does the patient require help from a person or device, or need extra time to understand complex and a bstract ideas (such as current events, finances, discharge planning, medical issues, relationships, e tc)? No. COMPREHENSION - STEP 2: Does the patient need extra time, require an assistive device (such as glasses for visual comprehensi on or a hearing aid for auditory comprehension) or does s/he have mild difficulty understanding compl ex and abstract information? No. COMPREHENSION - SCORE: 7-IND EXPRESSION EXPRESSION: TYPE: Both EXPRESSION - STEP 1: Does the patient require help from a person or device, or need extra time expressing complex and abst ract ideas (such as current events, finances, discharge planning, medical issues, relationships, etc) ? No. EXPRESSION - STEP 2: Does the patient need extra time, require an assistive device (such as augmentive communication syste m or a communication board), OR does s/he have mild difficulty expressing complex and abstract ideas (including mild dysarthria or mild word-find problems)? No. EXPRESSION - SCORE: 7-IND SOCIAL INTERACTION: SOCIAL INTERACTION - STEP 1: Does the patient require a helper to interact with others in social and therapeutic situations? No. SOCIAL INTERACTION - STEP 2: Does the patient need extra time in social situations, OR does s/he interact with staff, other patien ts, and family members ONLY in structured environments, OR does s/he require medication for social in teraction? No. SOCIAL INTERACTION - SCORE: 7-IND PROBLEM SOLVING: PROBLEM SOLVING - STEP 1: Does the patient need help from a person or device, or need extra time to solve complex problems such as managing a checking account or confronting interpersonal problems? No. PROBLEM SOLVING - STEP 2: Does the patient require extra time to make decisions or solve problems, OR does s/he have slight dif ficulty reading, initiating, or self-correcting in unfamiliar situations? No. PROBLEM SOLVING - SCORE: 7-IND MEMORY: MEMORY - STEP 1: Does the patient need help from a person or device, or need extra time to remember frequently encount ered people, daily routines, and executing requests? No. MEMORY - STEP 2: Does the patient have slight difficulty recognizing frequently encountered people, daily routines, or executing requests without the need for repetition or using self-initiated or environmental cues to remember? No. MEMORY - SCORE: 7-IND SIGNATURE PANEL: The following modified sections: Eating - Score, Grooming - Score, Bathing - Score, Dressing - Upper Body - Score, Dressing - Lower Body - Score, Toileting - Score, Bladder Management - Score, Bowel Man agement - Score, Transfers: Bed, Chair, Wheelchair - Score, Transfers: Toilet - Score, Transfers: Geno wer - Score, Transfers: Tub - Score, Locomotion: Walk - Score, Locomotion: Wheelchair - Score, Compre hension - Score, Expression - Score, Social Interaction - Score, Problem Solving - Score, Memory - Sc ore were [electronically] signed by Roxanne Vergara CNA on SatSep 04 2018 02:24:58 GMT-0500 (Geraldine Da ylight Time)
[2018-09-04 04:59] VITALS: BP 177/81
[2018-09-04] MEDS: METOPROLOL XL 50 MG TAB PO SCH (04:59)
[2018-09-04 06:23] LABS: Absolute Monocytes 0.3 K/uL (0.1-1.3); Absolute Neutrophil 1.3 K/uL (1.8-8.0); Basophils % 0.4 % (0-1.3); Eosinophils % 4.1 % (0-4.4); Hematocrit 28.3 % (39.6-49.0); Lymphocytes % 52.3 % (15.3-44.8); MPV 7.5 fL (7.6-11.3); Monocytes % 8.8 % (3.3-12.3); RBC Red Blood Cell Count 3.33 M/uL (4.33-5.43)
[2018-09-04 06:39] LABS: Albumin 3.3 g/dL (3.4-5.0); Bilirubin Total 0.4 mg/dL (0.2-1.0); Potassium 4.5 mmol/L (3.5-5.1); Prealbumin 23.9 mg/dL (20-40); Protein, Total 7.3 g/dL (6.4-8.2)
[2018-09-04 07:01] LABS: Blood Morphology Comment NOT SEEN (NOT SEEN); Platelet Estimate ADEQ
[2018-09-04] MEDS: INSULIN -REGULAR HUMAN 50 UNIT/0.5 ML ML SQ SCH ×2 (07:30→11:30)
[2018-09-04] MEDS: ENOXAPARIN 40 MG/0.4 ML SQ SCH (07:33)
[2018-09-04] MEDS: DOCUSATE NA 100 MG CAP PO SCH (07:54)
[2018-09-04] MEDS: FE SULF/FA/VIT B COMP & C TAB PO SCH (07:54)
[2018-09-04] MEDS: ROSUVASTATIN 10 MG TAB PO SCH (07:54)
[2018-09-04] MEDS: FOLIC ACID 1 MG TABLET PO SCH (07:54)
[2018-09-04] MEDS: FERROUS SULFATE 325 MG TAB PO SCH (07:54)
[2018-09-04] MEDS: AMLODIPINE 5 MG TAB PO SCH (07:54)
[2018-09-04] MEDS: TAMSULOSIN 0.4 MG SR CAP PO SCH (07:55)
[2018-09-04] MEDS: PROMOD 30 ML DOSE PO SCH (07:55)
[2018-09-04 08:19] VITALS: TEMP 96.9
--- NOTE | 2018-09-04 09:22 | FAST ---
SHIFT START DATE/TIME: 09/04/2018 07:00 (CDT) SHIFT END DATE/TIME: 09/04/2018 19:00 (CDT) NAME JOHN PAUL POLLARD DATE OF : 1950 DATE OF ADMISSION: 08/25/2018 18:25 (CDT) PHONE: AGE: 68 SSN# [id number] GENDER: Male ENCOUNTER PHYSICIAN: Dr. Gonzalez Fish M.D. ADMISSION DIAGNOSIS: - Debility 16 - Debility (16) Metastatic Renal Cell Carcinoma. EATING: EATING - STEP 1: Does the patient require the assistance of a person or device, or need extra time when eating? Yes. EATING - STEP 2: Does the patient require the assistance of a helper? No, patient only requires an assistive device, O R s/he takes more than reasonable time to eat, OR there is a safety concern, OR s/he requires modifie d food consistency EATING - SCORE: 6-RACHEL GROOMING: Comb/brush hair Oral care Wash, rinse, and dry face Wash, rinse, and dry hands GROOMING - STEP 1: Does the patient require the assistance of a person or device, or need extra time when grooming? Yes. GROOMING - STEP 2: Does the patient require the assistance of a helper? No. The patient only requires an assistive devic e, OR takes more than reasonable time to groom, OR there is a concern for safety as the patient groom s GROOMING - SCORE: 6-RACHEL BATHING: Activity did not occur on this shift BATHING - SCORE: 0-UNK DRESSING - UPPER BODY: Activity did not occur on this shift ARTICLES SCORE Total number of steps: 0 DRESSING - UPPER BODY - SCORE: 0-UNK DRESSING - LOWER BODY: Activity did not occur on this shift ARTICLES SCORE Total number of steps: 0 DRESSING - LOWER BODY - SCORE: 0-UNK TOILETING: TOILETING - STEP 1: Does the patient require the assistance of a person or device, or need extra time with toileting? Yes . TOILETING - STEP 2: Does the patient require the assistance of a helper? No. TOILETING - SCORE: 6-RACHEL BLADDER MANAGEMENT: BLADDER MANAGEMENT - STEP 1: Does the patient control the bladder completely and intentionally without equipment or devices or med ications, and is always continent? No. BLADDER MANAGEMENT - STEP 2: Does the patient require the assistance of a helper? No, patient requires and independently uses an a ssistive device, such as a urinal, bedpan, bedside commode, catheter, absorbent pad, or collecting de vice BLADDER MANAGEMENT - SCORE: 6-RACHEL BOWEL MANAGEMENT: Activity did not occur on this shift BOWEL MANAGEMENT - SCORE: 7-IND TRANSFERS: BED, CHAIR, WHEELCHAIR: TRANSFERS: BED, CHAIR, WHEELCHAIR - STEP 1: Does the patient require assistance of a person or device, or need extra time with bed, chair, or whe elchair transfers? Yes. TRANSFERS: BED, CHAIR, WHEELCHAIR - STEP 2: Does the patient require the assistance of a helper? No. Patient only requires an assistive device fo r bed, chair, wheelchair transfers such as a sliding board, grab bar, or brace, OR s/he takes more th an reasonable time, OR there is a safety concern when s/he performs the transfers TRANSFERS: BED, CHAIR, WHEELCHAIR - SCORE: 6-RACHEL TRANSFERS: TOILET: TRANSFERS: TOILET - STEP 1: Does the patient require the assistance of a person or device, or need extra time with toilet transfe rs? Yes. TRANSFERS: TOILET - STEP 2: Does the patient require the assistance of a helper? No. Patient only requires an assistive device chaparro ch as a grab bar or special seat, OR s/he takes more than reasonable time to perform toilet transfers , OR there is a safety concern when s/he performs toilet transfers. TRANSFERS: TOILET - SCORE: 6-RACHEL TRANSFERS: SHOWER: Activity did not occur on this shift TRANSFERS: SHOWER - SCORE: 0-UNK TRANSFERS: TUB: Activity did not occur on this shift TRANSFERS: TUB - SCORE: 0-UNK LOCOMOTION: WALK: Activity did not occur on this shift LOCOMOTION: WALK - SCORE: 0-UNK LOCOMOTION: WHEELCHAIR: Activity did not occur on this shift LOCOMOTION: WHEELCHAIR - SCORE: 0-UNK COMPREHENSION: COMPREHENSION: TYPE: Both COMPREHENSION - STEP 1: Does the patient require help from a person or device, or need extra time to understand complex and a bstract ideas (such as current events, finances, discharge planning, medical issues, relationships, e tc)? No. COMPREHENSION - STEP 2: Does the patient need extra time, require an assistive device (such as glasses for visual comprehensi on or a hearing aid for auditory comprehension) or does s/he have mild difficulty understanding compl ex and abstract information? Yes. COMPREHENSION - SCORE: 6-RACHEL EXPRESSION EXPRESSION: TYPE: Both EXPRESSION - STEP 1: Does the patient require help from a person or device, or need extra time expressing complex and abst ract ideas (such as current events, finances, discharge planning, medical issues, relationships, etc) ? No. EXPRESSION - STEP 2: Does the patient need extra time, require an assistive device (such as augmentive communication syste m or a communication board), OR does s/he have mild difficulty expressing complex and abstract ideas (including mild dysarthria or mild word-find problems)? Yes. EXPRESSION - SCORE: 6-RACHEL SOCIAL INTERACTION: SOCIAL INTERACTION - STEP 1: Does the patient require a helper to interact with others in social and therapeutic situations? No. SOCIAL INTERACTION - STEP 2: Does the patient need extra time in social situations, OR does s/he interact with staff, other patien ts, and family members ONLY in structured environments, OR does s/he require medication for social in teraction? Yes, patient needs extra time SOCIAL INTERACTION - SCORE: 6-RACHEL PROBLEM SOLVING: PROBLEM SOLVING - STEP 1: Does the patient need help from a person or device, or need extra time to solve complex problems such as managing a checking account or confronting interpersonal problems? No. PROBLEM SOLVING - STEP 2: Does the patient require extra time to make decisions or solve problems, OR does s/he have slight dif ficulty reading, initiating, or self-correcting in unfamiliar situations? Yes, patient needs extra ti me. PROBLEM SOLVING - SCORE: 6-RACHEL MEMORY: MEMORY - STEP 1: Does the patient need help from a person or device, or need extra time to remember frequently encount ered people, daily routines, and executing requests? No. MEMORY - STEP 2: Does the patient have slight difficulty recognizing frequently encountered people, daily routines, or executing requests without the need for repetition or using self-initiated or environmental cues to remember? Yes. MEMORY - SCORE: 6-RACHEL SIGNATURE PANEL: The following modified sections: Eating - Score, Grooming - Score, Bathing - Score, Dressing - Upper Body - Score, Dressing - Lower Body - Score, Toileting - Score, Bladder Management - Score, Bowel Man agement - Score, Transfers: Bed, Chair, Wheelchair - Score, Transfers: Toilet - Score, Transfers: Geno wer - Score, Transfers: Tub - Score, Locomotion: Walk - Score, Locomotion: Wheelchair - Score, Compre hension - Score, Expression - Score, Social Interaction - Score, Problem Solving - Score, Memory - Sc ore were [electronically] signed by Kevan Cardona on SatSep 04 2018 09:22:23 GMT-0500 (Central Daylight Time)
--- NOTE | 2018-09-05 15:21 | FAST ---
ENCOUNTER DATE AND TIME: 09/03/2018 08:00 (CDT) NAME JOHN PAUL POLLARD DATE OF : 1950 DATE OF ADMISSION: 08/25/2018 18:25 (CDT) PHONE: AGE: 68 SSN# [id number] GENDER: Male ENCOUNTER PHYSICIAN: Dr. Gonzalez Fish M.D. ADMISSION DIAGNOSIS: - Debility 16 - Debility (16) Metastatic Renal Cell Carcinoma. EATING: EATING - STEP 1: Does the patient require the assistance of a person or device, or need extra time when eating? No. EATING - SCORE: 7-IND GROOMING: Comb/brush hair Oral care Wash, rinse, and dry face Wash, rinse, and dry hands GROOMING - STEP 1: Does the patient require the assistance of a person or device, or need extra time when grooming? No. GROOMING - SCORE: 7-IND BATHING: Abdomen Buttocks Chest Left arm Left lower leg and foot Left upper leg Perineal area Right arm Right lower leg and foot Right upper leg BATHING - STEP 1: Does the patient require the assistance of a person or device, or need extra time when bathing? Yes. BATHING - STEP 2: Does the patient require the assistance of a helper? No. The patient only requires an assistive devic e such as a bath brian, OR the patient takes more than reasonable time to bathe, OR there is a concern for safety such as regulating water temperature as the patient bathes. BATHING - SCORE: 6-RACHEL DRESSING - UPPER BODY: T-shirt/pullover shirt (four steps) ARTICLES SCORE Total number of steps: 4 DRESSING - UPPER BODY - STEP 1: Does the patient require help from a person or device, or need extra time when dressing above the nan st? No. DRESSING - UPPER BODY - SCORE: 7-IND DRESSING - LOWER BODY: Elastic waist pants (three steps) Slip-on shoe - Left foot (one step) Slip-on shoe - Right foot (one step) Sock - Left foot (one step) Sock - Right foot (one step) Underwear (three steps) ARTICLES SCORE Total number of steps: 10 DRESSING - LOWER BODY - STEP 1: Does the patient require help from a person or device, or need extra time when dressing below the nan st? Yes. DRESSING - LOWER BODY - STEP 2: Does the patient require the assistance of a helper? No. Patient requires an assistive device such as a otr hazmat company driver. OR s/he takes more than reasonable time as s/he dresses the lower body, OR there is a con cern for safety when s/he dresses the lower body DRESSING - LOWER BODY - SCORE: 6-RACHEL TOILETING: TOILETING - STEP 1: Does the patient require the assistance of a person or device, or need extra time with toileting? No. TOILETING - SCORE: 7-IND BLADDER MANAGEMENT: Activity did not occur on this shift BLADDER MANAGEMENT - SCORE: 7-IND BOWEL MANAGEMENT: Activity did not occur on this shift BOWEL MANAGEMENT - SCORE: 7-IND TRANSFERS: BED, CHAIR, WHEELCHAIR: Activity did not occur on this shift TRANSFERS: BED, CHAIR, WHEELCHAIR - SCORE: 0-UNK TRANSFERS: TOILET: TRANSFERS: TOILET - STEP 1: Does the patient require the assistance of a person or device, or need extra time with toilet transfe rs? No. TRANSFERS: TOILET - SCORE: 7-IND TRANSFERS: SHOWER: TRANSFERS: SHOWER - STEP 1: Does the patient require the assistance of a person or device, or need extra time with shower transfe rs? Yes. TRANSFERS: SHOWER - STEP 2: Does the patient require the assistance of a helper? No. The patient only uses an assistive device, t akes more than reasonable time, OR there is a concern for safety when s/he performs transfers. TRANSFERS: SHOWER - SCORE: 6-RACHEL TRANSFERS: TUB: Activity did not occur on this shift TRANSFERS: TUB - SCORE: 0-UNK LOCOMOTION: WALK: Activity did not occur on this shift LOCOMOTION: WALK - SCORE: 0-UNK LOCOMOTION: WHEELCHAIR: Activity did not occur on this shift LOCOMOTION: WHEELCHAIR - SCORE: 0-UNK LOCOMOTION: STAIRS: Activity did not occur on this shift LOCOMOTION: STAIRS - SCORE: 0-UNK COMPREHENSION: COMPREHENSION: TYPE: Both COMPREHENSION - STEP 1: Does the patient require help from a person or device, or need extra time to understand complex and a bstract ideas (such as current events, finances, discharge planning, medical issues, relationships, e tc)? No. COMPREHENSION - STEP 2: Does the patient need extra time, require an assistive device (such as glasses for visual comprehensi on or a hearing aid for auditory comprehension) or does s/he have mild difficulty understanding compl ex and abstract information? No. COMPREHENSION - SCORE: 7-IND EXPRESSION EXPRESSION: TYPE: Both EXPRESSION - STEP 1: Does the patient require help from a person or device, or need extra time expressing complex and abst ract ideas (such as current events, finances, discharge planning, medical issues, relationships, etc) ? No. EXPRESSION - STEP 2: Does the patient need extra time, require an assistive device (such as augmentive communication syste m or a communication board), OR does s/he have mild difficulty expressing complex and abstract ideas (including mild dysarthria or mild word-find problems)? No. EXPRESSION - SCORE: 7-IND SOCIAL INTERACTION: SOCIAL INTERACTION - STEP 1: Does the patient require a helper to interact with others in social and therapeutic situations? No. SOCIAL INTERACTION - STEP 2: Does the patient need extra time in social situations, OR does s/he interact with staff, other patien ts, and family members ONLY in structured environments, OR does s/he require medication for social in teraction? No. SOCIAL INTERACTION - SCORE: 7-IND PROBLEM SOLVING: PROBLEM SOLVING - STEP 1: Does the patient need help from a person or device, or need extra time to solve complex problems such as managing a checking account or confronting interpersonal problems? No. PROBLEM SOLVING - STEP 2: Does the patient require extra time to make decisions or solve problems, OR does s/he have slight dif ficulty reading, initiating, or self-correcting in unfamiliar situations? No. PROBLEM SOLVING - SCORE: 7-IND MEMORY: MEMORY - STEP 1: Does the patient need help from a person or device, or need extra time to remember frequently encount ered people, daily routines, and executing requests? No. MEMORY - STEP 2: Does the patient have slight difficulty recognizing frequently encountered people, daily routines, or executing requests without the need for repetition or using self-initiated or environmental cues to remember? No. MEMORY - SCORE: 7-IND SIGNATURE PANEL: The following modified sections: Eating - Score, Grooming - Score, Bathing - Score, Dressing - Upper Body - Score, Dressing - Lower Body - Score, Toileting - Score, Transfers: Bed, Chair, Wheelchair - S core, Transfers: Toilet - Score, Transfers: Shower - Score, Transfers: Tub - Score, Comprehension - S core, Expression - Score, Social Interaction - Score, Problem Solving - Score, Memory - Score were [e lectronically] signed by Sade Damon OT on SatSep 05 2018 15:20:04 GMT-0500 ([facility])
== END 2018-09-04 13:05 | disposition home or self-care (01) | DRG 948 ==
LOC: 5TH 08-25 18:25
PROVIDERS: ADMIT Psychiatry & Neurology Neurology with Special Qualifications in Child Neurology; ATTEND Psychiatry & Neurology Neurology with Special Qualifications in Child Neurology
DX: R53.81 Other malaise (principal); C64.9 Malignant neoplasm of unspecified kidney, except renal pelvis; I25.10 Atherosclerotic heart disease of native coronary artery without angina pectoris; I10 Essential (primary) hypertension; G47.33 Obstructive sleep apnea (adult) (pediatric)
CPT/HCPCS: 36415; 80048; 80053; 81001; 82040; 82962; 83735; 84134; 85025; 87086; 87088; 97110; 97112; 97116; 97150; 97162; 97167; 97530; J1650

== ENCOUNTER 2018-12-03 18:01 | Inpatient (IN) | payer OTHER ==
--- OUTSIDE RECORDS SUMMARY | 2018-12-03 18:03 | XMS REPORT | Clinical Summary ---
:1950 Author Organization [facility] Address [address] [place] [id number] Care Team Providers Name Role Phone Juma [...] tabletIndications: mouth daily. Coronary artery disease involving [place] coronary artery of [place] heart without angina pectoris, Abnormal EKG folic [...] hip joint 07/22/2018 Coronary artery disease involving [place] heart with angina pectoris 05/10/2018 Abnormal EKG 05/10/2018 SOB (shortness of breath) 05/10/2018 Benign essential hypertension 06/03/2012 Diabetes mellitus type 2, uncontrolled, without complications 06/03/2012 Overview: Overview: ICD10 Diagnosis Term Correctional Nurse Utility HLD (hyperlipidemia) 06/03/2012 Encounters Date Type Specialty Care Team Description 08/11/2018 Office Visit Cardiology Patrick Zarate MD Preop cardiovascular exam (Primary Dx); Coronary artery disease involving [place] heart with angina pectoris, unspecified vessel or lesion type (HCC) 07/22/2018 Intake Access N/A 05/05/2018 Office Visit Cardiology Patrick Zarate MD SOB (shortness of breath) (Primary Dx); Benign essential hypertension; Coronary artery disease involving [place] coronary artery of [place] heart without angina pectoris; Abnormal EKG after 12/02/2017 Family History Medical History Relation Name Comments [...] - Respiratory Rate 16 05/05/2018 1:55 PM FOREIGN CORRESPONDENT Oxygen Saturation - - Inhaled Oxygen Concentration - - Weight 104 kg (229 lb) 08/11/2018 4:23 PM CDT Height 182.9 cm (6') 08/11/2018 4:23 PM CDT Body Mass Index 31.06 08/11/2018 4:23 PM CDT Plan of Treatment Health Maintenance Due Date Last Done Comments DIABETIC RETINAL EYE EXAM 1950 DIABETIC FOOT EXAM 02/24/1958 COLONOSCOPY SCREENING 02/24/1998 SHINGLES VACCINES (#1) 02/24/1998 65+ PNEUMOCOCCAL VACCINE (1 of 2 - PCV13) 02/24/2013 INFLUENZA VACCINE 11/27/2018 Procedures Procedure Name Priority Date/Time Associated Diagnosis Comments ECG 12-LEAD Routine 08/11/2018 4:30 PM Preop cardiovascular Results for this CDT exam procedure are in the results section. ECG 12-LEAD Routine 05/05/2018 1:57 PM Benign essential Results for this FOREIGN CORRESPONDENT hypertension procedure are in the results section. after 12/02/2017 Results ECG 12 lead (08/11/2018 4:30 PM CDT)Only the most recent of2 resultswithin the time period is included. Ventricular rate 69 [facility] Atrial rate 69 [facility] DC interval 174 [facility] QRSD interval 110 [facility] QT interval 402 [facility] QTC interval 430 [facility] P axis 1 53 [facility] QRS axis 1 22 [facility] T wave axis 49 [facility] EKG impression Normal sinus rhythm-Incomplete right bundle branch block- Borderline ECG-In automated comparison with ECG of 05-MAY-2018 13:57,- Incomplete right bundle branch block has replaced Right bundle branch block [facility] - Specimen Narrative Performed At Performing Organization Address City/State/Zipcode Phone Number [facility] [address] [place] [address] after 12/02/2017 Insurance Payer Benefit Plan / Subscriber ID Effective Dates Phone Address Type Group MEDICARE MEDICARE PART A xxxxxxxxxxx 2013-Present [place], [place] Medicare AND B Advance Directives Patient has advance care planning documents on file. For more information, please contact:[facility] [id number] [place] [address]
--- OUTSIDE RECORDS SUMMARY | 2018-12-03 18:05 | XMS REPORT | Clinical Summary ---
:1950 Author Organization [facility] Address [address] [place] [address] Care Team Providers Name Role Phone Pcp, [...] daily as needed. 9 17 gram packet HYDROcodone-acetam Take 1 tablet by 20 tablet 0 Active inophen (NORCO mouth every 6 9 5-325) 5-325 mg (six) hours as per tablet needed for Pain. Max Daily Amount: 4 tablets metoprolol Take 100 mg by 0 07/29/19 [...] Discontinued (PRINIVIL,ZESTRIL) mg total) by mouth 9 19 40 MG tablet daily for 30 days. polyethylene Take 17 g by mouth 14 each 0 08/19/19 Discontinued glycol (GLYCOLAX) daily for 14 days. 9 19 17 gram packet HYDROcodone-acetam Take 1 tablet by 30 tablet 0 08/19/19 Discontinued inophen (NORCO mouth every 6 9 5-325) [...] (PRILOSEC) 40 MG mouth daily. 19 capsule enoxaparin Inject 0.4 mLs (40 12 mL 0 09/19/19 (LOVENOX) 40 mg total) 9 19 mg/0.4 mL Syrg subcutaneously daily for 30 days. docusate sodium Take 1 capsule 10 capsule 0 09/05/19 (COLACE) 100 MG (100 mg total) by 9 capsule mouth 2 (two) times daily as needed for Constipation for up to 10 days. traMADol (ULTRAM) Take 2 tablets 30 tablet 0 08/26/19 Discontinued 50 mg tablet (100 mg total) by 9 19 mouth every 6 (six) hours as needed for up to 10 days. 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, left (HCC) 09/18/2018 Hospital Encounter Computed Wendy -Ady Clear cell carcinoma Tomography MD Remy of kidney, left 1, [facility] ([facility] Ct Room 09/18/2018 Hospital Encounter Computed Wendy -Ady Clear cell carcinoma Tomography MD Remy of kidney, left 1, [facility] ([facility] Ct Room 09/18/2018 Hospital Encounter Computed Wendy, -Ady Clear cell carcinoma Tomography MD Remy of kidney, left 1, [facility] ([facility] Ct Room 09/16/2018 Outside Orders Central Scheduling Luis Fernando NguyenAdy 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, left (HCC) (Primary Dx) 09/15/2018 Outside Orders Central Scheduling Luis Fernando NguyenAdy Clear cell carcinoma MD Remy of kidney, left (HCC) (Primary Dx) 08/21/2018 Anesthesia Event Josse York MD 08/21/2018 Surgery Enedelia, LAPAROSCOPY,NEPHRECT MD CLAUDETTE Bennett 08/21/2018 - Hospital Encounter General Internal Enedelia, 08/25/2018 Medicine MD Donald 08/20/2018 Hospital Encounter Pre-Admission Resource, Oqmt Testing Preadmit Phone 08/13/2018 Anesthesia Event Dominga Green CRNA 08/13/2018 Surgery Cornelia Short ORIF,ACETABULUM MD [place] 08/13/2018 Travel 08/12/2018 - Hospital Encounter General Internal Cornelia Short Type 2 diabetes mellitus without complication, without long-term current use of insulin ([facility]); 08/18/2018 Graciela Marquez MD Essential hypertension; Rosalina Boone 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); MD Lizzy ROSARIO (obstructive sleep apnea); Pain of right hip joint; Pelvic mass; Pathological fracture of right acetabulum, initial encounter; Anemia, chronic disease 08/09/2018 Orders Only Cornelia Short MD 08/07/2018 Hospital Encounter Pre-Admission Resource, Oqmt Testing Preadmit Phone 08/07/2018 Orders Only Cornelia Short MD 07/23/2018 Travel 07/22/2018 - Hospital Encounter General Internal Rosalina Boone Mass of soft tissue of right lower extremity; 07/28/2018 Graciela Ball MD Pain of right hip joint; Yeimy Marquez Kidney mass MD Shorty Al, MD Destin Christianson Neeraj, MD after 12/02/2017 Family History Medical History Relation [...] Vital Sign Reading Time Taken Blood Pressure 176/61 09/30/2018 5:13 PM CDT Pulse 60 09/30/2018 5:13 PM CDT Temperature 36.8 C (98.2 F) 09/30/2018 5:13 PM CDT Respiratory Rate 13 09/30/2018 5:13 PM CDT Oxygen Saturation 99% 09/30/2018 5:13 PM CDT Inhaled Oxygen Concentration 28% 08/22/2018 4:04 AM CDT Weight 96.2 kg (212 lb) 09/30/2018 1:27 PM CDT Height 182.9 cm (6') 09/30/2018 1:27 PM CDT Body Mass Index 28.75 09/30/2018 1:27 PM CDT Plan of Treatment Not on file Implants Implanted Type Area Executive Account Manager Device Shelf Model / Identifier Expiration Serial / Date Lot Scr Gemini Asnis3 Ft [id number] - [id number] Fracture/Fix Right: OMAIRA:OMAIRA 10/26/2022 [id number] / Implanted: Qty: 1 on 08/13/2018 by Cornelia Short MD [facility] Hip ORTHOPAEDICS / [id number] Cement Bone Smplx Tobra 40 [id number] - [id number] IMPLANTS Right: OMAIRA:OMAIRA 12/28/2019 [id number] / Implanted: Qty: 1 on 08/13/2018 by Cornelia Short MD Hip ORTHOPAEDICS / [id number] Cannulated Screw, Fully Threaded Right: OMAIRA 07/27/2022 [id number] / Implanted: Qty: 1 on 08/13/2018 by Cornelia Short MD Hip / [id number] Procedures Procedure Name Priority Date/Time Associated Comments Diagnosis IR CV ACCESS FLUORO Routine 09/30/2018 4:56 Clear cell renal Results for this PM CDT cell carcinoma, procedure are in left (HCC) the results section. CBC W/PLT COUNT & Routine 09/30/2018 10:57 Results for this AUTO DIFFERENTIAL AM CDT procedure are in the results section. PROTHROMBIN TIME/INR Routine 09/30/2018 10:57 Results for this AM CDT procedure are in the results section. CBC W/PLT COUNT & Routine 09/30/2018 10:57 Results for this AUTO DIFFERENTIAL AM CDT procedure are in the results section. CT ABDOMEN WITH IV Routine 09/18/2018 3:00 Clear cell Results for this CONTRAST PM CDT carcinoma of procedure are in kidney, left (HCC) the results section. CT CHEST WITH IV Routine 09/18/2018 3:00 Clear cell Results for this CONTRAST PM CDT carcinoma of procedure are in kidney, left (HCC) the results section. CT PELVIS WITH IV Routine 09/18/2018 3:00 Clear cell Results for this CONTRAST PM CDT carcinoma of procedure are in kidney, left (HCC) the results section. POCT-CREATININE Routine 09/18/2018 2:16 Results for this PM CDT procedure are [...] LEUKO-REDUCED RED PM CDT BLOOD CELLS FL CUT OFF SAWYER LOG IN OR 30 Routine 08/13/2018 4:15 Results [...] METER Routine 07/23/2018 12:07 AM CDT after 12/02/2017 Results IR CV Access Fluoro (09/30/2018 4:56 PM CDT) Specimen Narrative Performed At FINAL REPORT [facility] HISTORY: Renal cell carcinoma PROCEDURE: Following informed written consent, the patient's right cervical region and anterior chest wall were prepped draped in the usual sterile manner and maximum sterile barrier techniques were utilized. 2% lidocaine was given locally for anesthesia. Additionally, the patient received 1 mg IV Versed and 50 mcg IV fentanyl for conscious sedation and pain control. Vital signs were monitored and remained stable. 1 g IV vancomycin was given prior the procedure for antibiotic prophylaxis. Conscious sedation and continuous patient monitoring were performed by the attending radiologist and a registered nurse for approximately 30 minutes during the procedure. Access was gained to the right internal jugular vein using ultrasound guidance a micropuncture needle. A short transverse incision was made in the right anterior chest wall. Using blunt dissection, a subcutaneous pocket was created just beneath the incision. The samson catheter was tunneled from the pocket to the jugular access site in place through a peel-away sheath into position centrally under fluoroscopic control. The catheter was cut to appropriate length and attached to the portacatheter reservoir which was subsequently buried in the subcutaneous. The pocket was irrigated using an antibiotic solution enclosed using 3-0 Monocryl resorbable suture. Steri-Strips, dermabond and a sterile bandage were applied. There were no immediate complications. Patient was discharged from the department in stable condition. FINDINGS: Spot film of the chest following portacatheter placement demonstrates the portacatheter to lie in expected position with its tip over the caval atrial junction. There is no pneumothorax. Ultrasound image obtained prior to port placement demonstrates a patent and compressible right internal jugular vein without evidence for thrombosis. Ultrasound image of the right internal jugular vein was obtained and archived on PACs. IMPRESSION: 1. Successful uncomplicated placement of a right internal jugular chest port. Fluoroscopy time: 1.7 minutes Estimated dose in (Ka,r): 18.1 mGy Signed: Cornelia Parikh MD Report Verified Date/Time:10/01/2018 08:46:35 Reading Location: [place] [address] Angio Body Reading Room Procedure Note Interface, External Ris In - 10/01/2018 8:48 AM CDT FINAL REPORT HISTORY: Renal cell carcinoma PROCEDURE: Following informed written consent, the patient's right cervical region and anterior chest wall were prepped draped in the usual sterile manner and maximum sterile barrier techniques were utilized. 2% lidocaine was given locally for anesthesia. Additionally, the patient received 1 mg IV Versed and 50 mcg IV fentanyl for conscious sedation and pain control. Vital signs were monitored and remained stable. 1 g IV vancomycin was given prior the procedure for antibiotic prophylaxis. Conscious sedation and continuous patient monitoring were performed by the attending radiologist and a registered nurse for approximately 30 minutes during the procedure. Access was gained to the right internal jugular vein using ultrasound guidance a micropuncture needle. A short transverse incision was made in the right anterior chest wall. Using blunt dissection, a subcutaneous pocket was created just beneath the incision. The samson catheter was tunneled from the pocket to the jugular access site in place through a peel-away sheath into position centrally under fluoroscopic control. The catheter was cut to appropriate length and attached to the portacatheter reservoir which was subsequently buried in the subcutaneous. The pocket was irrigated using an antibiotic solution enclosed using 3-0 Monocryl resorbable suture. Steri-Strips, dermabond and a sterile bandage were applied. There were no immediate complications. Patient was discharged from the department in stable condition. FINDINGS: Spot film of the chest following portacatheter placement demonstrates the portacatheter to lie in expected position with its tip over the caval atrial junction. There is no pneumothorax. Ultrasound image obtained prior to port placement demonstrates a patent and compressible right internal jugular vein without evidence for thrombosis. Ultrasound image of the right internal jugular vein was obtained and archived on PACs. IMPRESSION: 1. Successful uncomplicated placement of a right internal jugular chest port. Fluoroscopy time: 1.7 minutes Estimated dose in (Ka,r): 18.1 mGy Signed: Cornelia Parikh MD Report Verified Date/Time: 10/01/2018 08:46:35 Reading Location: [place] [address] Angio Body Reading Room Performing Organization Address City/State/Zipcode Phone Number [facility] CBC with platelet count + automated diff (09/30/2018 10:57 AM CDT)Only the most recent of14 resultswithin the time period is included. WBC 5.3 3.5 - 10.5 K/L [facility] RBC 3.96 (L) 4.63 - 6.08 M/L [facility] Hemoglobin 11.3 (L) 13.7 - 17.5 GM/DL [facility] Hematocrit 36.6 (L) 40.1 - 51.0 % [facility] MCV 92.4 (H) 79.0 - 92.2 fL [facility] MCH 28.5 25.7 - 32.2 pg [facility] MCHC 30.9 (L) 32.3 - 36.5 GM/DL [facility] RDW 15.5 (H) 11.6 - 14.4 % [facility] Platelets 160 150 - 450 K/CU MM [facility] MPV 9.2 (L) 9.4 - 12.4 fL [facility] nRBC 0 0 - 0 /100 WBC [facility] % Neutros 51 % [facility] % Lymphs 38 % [facility] % Monos 7 % [facility] % Eos 3 % [facility] % Baso 1 % [facility] # Neutros 2.74 1.78 - 5.38 K/L [facility] # Lymphs 2.03 1.32 - 3.57 K/L [facility] # Monos 0.37 0.30 - 0.82 K/L [facility] # Eos 0.14 0.04 - 0.54 K/L [facility] # Baso 0.03 0.01 - 0.08 K/L [facility] Immature Granulocytes-Relative 0 0 - 1 % [facility] Specimen Blood Performing Organization Address City/State/Zipcode Phone Number [facility] [address] [place] [address] CENTER Prothrombin time/INR (09/30/2018 10:57 AM CDT)Only the most recent of4 resultswithin the time period is included. Protime 13.1 11.9 - 14.2 seconds [facility] INR 1.0 <=5.9 [facility] Specimen Blood Narrative Performed At Effective 09/24/2018: PT Reference Range [facility] Change New: 11.9-14.2Previous: 11.7-14.7 RECOMMENDED COUMADIN/WARFARIN INR THERAPY RANGES STANDARD DOSE: 2.0-3.0Includes: PROPHYLAXIS for venous thrombosis, systemic embolization; TREATMENT for venous thrombosis and/or pulmonary embolus. HIGH RISK: Target INR is 2.5-3.5 for patients wiht mechanical heart valves. Performing Organization Address City/State/Zipcode Phone Number [facility] [address] [place] [address] Abdomen with IV Contrast (09/18/2018 3:00 PM CDT) Specimen Narrative Performed At FINAL REPORT [facility] EXAM: CT Chest, Abdomen and Pelvis WITH contrast INDICATION:clear cell renal cell carcinoma left COMPARISON: CT dated 07/24/2018 TECHNIQUE: Chest, abdomen and pelvis were scanned utilizing a multidetector helical scanner from the lung apex to the pubic symphysis after administration of IV contrast. Coronal and sagittal reformations were obtained. Dose modulation, iterative reconstruction, and/or weight based adjustment of the mA/kV was utilized to reduce the radiation dose to as low as reasonably achievable. Routine protocol was performed. Scan was performed when during portal venous phase. IV CONTRAST: 100 mL of Isovue-300 ORAL CONTRAST: Water COMPLICATIONS: None RADIATION DOSE: Total DLP: 1163.40 mGy*cm Estimated effective dose: (DLP x 0.015 x size factor) mSv CTDIvol has been reviewed. It is below the limits set by the Radiation Protocol Committee (RPC). FINDINGS: LINES and TUBES: None. LUNGS AND AIRWAYS:3 mm right upper lobe nodule versus calcified granuloma (series 2, image 53) was punctate on prior exam. Left lower lobe calcified granuloma There are a few additional scattered calcified granulomas. Unchanged 5 mm right upper lobe nodule (). 5 mm right middle lobe nodule, abutting the major fissure (series 2, image 92), previously 4 mm. Subpleural posterior left lower lobe nodule measures 3 mm and appears more prominent from prior exam (series 2, image 99). Airways are normal. PLEURA: The pleural spaces are clear. HEART AND MEDIASTINUM: The thyroid gland is normal.No mediastinal, hilar or axillary lymphadenopathy.Unchanged scattered nonspecific mostly subcentimeter mediastinal lymph nodes, for example stable 1 cm right or 0.8 cm right paratracheal lymph nodes (series 1, images 15, 16, and 23). The heart is normal in size.. There is no pericardial effusion.Atherosclerotic calcification of coronary arteries. Main pulmonary artery measures 3.5 cm, mildly dilated. HEPATOBILIARY: Unchanged left hepatic lobe calcified granuloma.No hepatic mass. Unchanged indeterminate faint linear hypodensity in segment VIII.No biliary ductal dilation. GALLBLADDER: No radio-opaque stones or sludge.No wall thickening. SPLEEN: No splenomegaly. PANCREAS: No focal masses or ductal dilatation. ADRENALS: No adrenal nodules KIDNEYS/URETERS: Postsurgical changes of left nephrectomy. Small amount of fluid in the surgical bed, extending to the adrenal gland, best seen on coronal image 67. 5 mm right renal inferior pole nonobstructive calculus. No right hydronephrosis. Right renal inferior pole subcentimeter hypodensities are too small to characterize. GI TRACT: No abnormal distention, wall thickening, or evidence of bowel obstruction. Appendix is normal. PELVIC ORGANS/BLADDER: Markedly enlarged prostate gland. Bladder is not distended, demonstrating wall thickening. LYMPH NODES: Unchanged 1 cm right external iliac lymph node (series 1, image 117). A 0.8 cm right external iliac lymph node (1/113), previously 0.6 cm. Another right iliac chain node measures 0.9 cm (1/108), previously 0.5 cm. Not significantly changed 0.6 cm portacaval lymph node (/83). A few additional subcentimeter nonspecific retroperitoneal lymph nodes. VESSELS: There is moderate atherosclerotic disease in the aorta and major arterial branches. Stable foci of infrarenal abdominal aortic aneurysm, measuring 3.6 cm (series 1, images 78 and 86). PERITONEUM / RETROPERITONEUM: No free air or fluid. BONES: Interval screw fixation of right iliac bone. Hyperdense material within previously seen right iliac metastatic mass with soft tissue component, probably cement material. Only part of the enhancing soft tissue component is visualized on today's exam (image 55 series 4) SOFT TISSUES: Unremarkable. IMPRESSION: 1.Redemonstration of bilateral lung nodules and calcified granulomas. A nodule in the right middle lobe appears more prominent when compared to prior CT. Recommend attention on follow-up examination. 2.Postsurgical changes of left nephrectomy. There is small amount of fluid in the surgical bed which is inseparable from left adrenal gland. 3.Subcentimeter right iliac chain lymph nodes, of which one has mildly increased in size when compared to prior CT dated 07/24/2018. Attention on follow-up examination. 4.Status post screw fixation and hyperintense material insertion in the metastatic right iliac lesion with soft tissue component. Persistent enhancing soft tissue component is visualized. 5.Again seen markedly enlarged prostate gland. 6.Not significantly changed foci of infrarenal abdominal aortic aneurysm. Signed: Elías Castellon MD Report Verified Date/Time:09/19/2018 14:29:11 Reading Location: [facility] Reading Room [address] [place] [address] Procedure Note Interface, External Ris In - 09/19/2018 2:31 PM CDT FINAL REPORT EXAM: CT Chest, Abdomen and Pelvis WITH contrast INDICATION: clear cell renal cell carcinoma left COMPARISON: CT dated 07/24/2018 TECHNIQUE: Chest, abdomen and pelvis were scanned utilizing a multidetector helical scanner from the lung apex to the pubic symphysis after administration of IV contrast. Coronal and sagittal reformations were obtained. Dose modulation, iterative reconstruction, and/or weight based adjustment of the mA/kV was utilized to reduce the radiation dose to as low as reasonably achievable. Routine protocol was performed. Scan was performed when during portal venous phase. IV CONTRAST: 100 mL of Isovue-300 ORAL CONTRAST: Water COMPLICATIONS: None RADIATION DOSE: Total DLP: 1163.40 mGy*cm Estimated effective dose: (DLP x 0.015 x size factor) mSv CTDIvol has been reviewed. It is below the limits set by the Radiation Protocol Committee (RPC). FINDINGS: LINES and TUBES: None. LUNGS AND AIRWAYS: 3 mm right upper lobe nodule versus calcified granuloma (series 2, image 53) was punctate on prior exam. Left lower lobe calcified granuloma There are a few additional scattered calcified granulomas. Unchanged 5 mm right upper lobe nodule (2/73). 5 mm right middle lobe nodule, abutting the major fissure (series 2, image 92), previously 4 mm. Subpleural posterior left lower lobe nodule measures 3 mm and appears more prominent from prior exam (series 2, image 99). Airways are normal. PLEURA: The pleural spaces are clear. HEART AND MEDIASTINUM: The thyroid gland is normal. No mediastinal, hilar or axillary lymphadenopathy. Unchanged scattered nonspecific mostly subcentimeter mediastinal lymph nodes, for example stable 1 cm right or 0.8 cm right paratracheal lymph nodes (series 1, images 15, 16, and 23). The heart is normal in size.. There is no pericardial effusion. Atherosclerotic calcification of coronary arteries. Main pulmonary artery measures 3.5 cm, mildly dilated. HEPATOBILIARY: Unchanged left hepatic lobe calcified granuloma. No hepatic mass. Unchanged indeterminate faint linear hypodensity in segment VIII. No biliary ductal dilation. GALLBLADDER: No radio-opaque stones or sludge. No wall thickening. SPLEEN: No splenomegaly. PANCREAS: No focal masses or ductal dilatation. ADRENALS: No adrenal nodules KIDNEYS/URETERS: Postsurgical changes of left nephrectomy. Small amount of fluid in the surgical bed, extending to the adrenal gland, best seen on coronal image 67. 5 mm right renal inferior pole nonobstructive calculus. No right hydronephrosis. Right renal inferior pole subcentimeter hypodensities are too small to characterize. GI TRACT: No abnormal distention, wall thickening, or evidence of bowel obstruction. Appendix is normal. PELVIC ORGANS/BLADDER: Markedly enlarged prostate gland. Bladder is not distended, demonstrating wall thickening. LYMPH NODES: Unchanged 1 cm right external iliac lymph node (series 1, image 117). A 0.8 cm right external iliac lymph node (1/113), previously 0.6 cm. Another right iliac chain node measures 0.9 cm (1/108), previously 0.5 cm. Not significantly changed 0.6 cm portacaval lymph node (/). A few additional subcentimeter nonspecific retroperitoneal lymph nodes. VESSELS: There is moderate atherosclerotic disease in the aorta and major arterial branches. Stable foci of infrarenal abdominal aortic aneurysm, measuring 3.6 cm (series 1, images 78 and 86). PERITONEUM / RETROPERITONEUM: No free air or fluid. BONES: Interval screw fixation of right iliac bone. Hyperdense material within previously seen right iliac metastatic mass with soft tissue component, probably cement material. Only part of the enhancing soft tissue component is visualized on today's exam (image 55 series 4) SOFT TISSUES: Unremarkable. IMPRESSION: 1.Redemonstration of bilateral lung nodules and calcified granulomas. A nodule in the right middle lobe appears more prominent when compared to prior CT. Recommend attention on follow-up examination. 2.Postsurgical changes of left nephrectomy. There is small amount of fluid in the surgical bed which is inseparable from left adrenal gland. 3.Subcentimeter right iliac chain lymph nodes, of which one has mildly increased in size when compared to prior CT dated 07/24/2018. Attention on follow-up examination. 4.Status post screw fixation and hyperintense material insertion in the metastatic right iliac lesion with soft tissue component. Persistent enhancing soft tissue component is visualized. 5.Again seen markedly enlarged prostate gland. 6.Not significantly changed foci of infrarenal abdominal aortic aneurysm. Signed: Elías Castellon MD Report Verified Date/Time: 09/19/2018 14:29:11 Reading Location: [facility] Reading Room [address] [place] [address] Performing Organization Address City/State/Zipcode Phone Number [facility] CT Pelvis with IV Contrast (09/18/2018 3:00 PM CDT) Specimen Narrative Performed At FINAL REPORT [facility] EXAM: CT Chest, Abdomen and Pelvis WITH contrast INDICATION:clear cell renal cell carcinoma left COMPARISON: CT dated 07/24/2018 TECHNIQUE: Chest, abdomen and pelvis were scanned utilizing a multidetector helical scanner from the lung apex to the pubic symphysis after administration of IV contrast. Coronal and sagittal reformations were obtained. Dose modulation, iterative reconstruction, and/or weight based adjustment of the mA/kV was utilized to reduce the radiation dose to as low as reasonably achievable. Routine protocol was performed. Scan was performed when during portal venous phase. IV CONTRAST: 100 mL of Isovue-300 ORAL CONTRAST: Water COMPLICATIONS: None RADIATION DOSE: Total DLP: 1163.40 mGy*cm Estimated effective dose: (DLP x 0.015 x size factor) mSv CTDIvol has been reviewed. It is below the limits set by the Radiation Protocol Committee (RPC). FINDINGS: LINES and TUBES: None. LUNGS AND AIRWAYS:3 mm right upper lobe nodule versus calcified granuloma (series 2, image 53) was punctate on prior exam. Left lower lobe calcified granuloma There are a few additional scattered calcified granulomas. Unchanged 5 mm right upper lobe nodule (2/73). 5 mm right middle lobe nodule, abutting the major fissure (series 2, image 92), previously 4 mm. Subpleural posterior left lower lobe nodule measures 3 mm and appears more prominent from prior exam (series 2, image 99). Airways are normal. PLEURA: The pleural spaces are clear. HEART AND MEDIASTINUM: The thyroid gland is normal.No mediastinal, hilar or axillary lymphadenopathy.Unchanged scattered nonspecific mostly subcentimeter mediastinal lymph nodes, for example stable 1 cm right or 0.8 cm right paratracheal lymph nodes (series 1, images 15, 16, and 23). The heart is normal in size.. There is no pericardial effusion.Atherosclerotic calcification of coronary arteries. Main pulmonary artery measures 3.5 cm, mildly dilated. HEPATOBILIARY: Unchanged left hepatic lobe calcified granuloma.No hepatic mass. Unchanged indeterminate faint linear hypodensity in segment VIII.No biliary ductal dilation. GALLBLADDER: No radio-opaque stones or sludge.No wall thickening. SPLEEN: No splenomegaly. PANCREAS: No focal masses or ductal dilatation. ADRENALS: No adrenal nodules KIDNEYS/URETERS: Postsurgical changes of left nephrectomy. Small amount of fluid in the surgical bed, extending to the adrenal gland, best seen on coronal image 67. 5 mm right renal inferior pole nonobstructive calculus. No right hydronephrosis. Right renal inferior pole subcentimeter hypodensities are too small to characterize. GI TRACT: No abnormal distention, wall thickening, or evidence of bowel obstruction. Appendix is normal. PELVIC ORGANS/BLADDER: Markedly enlarged prostate gland. Bladder is not distended, demonstrating wall thickening. LYMPH NODES: Unchanged 1 cm right external iliac lymph node (series 1, image 117). A 0.8 cm right external iliac lymph node (/113), previously 0.6 cm. Another right iliac chain node measures 0.9 cm (1/108), previously 0.5 cm. Not significantly changed 0.6 cm portacaval lymph node (/). A few additional subcentimeter nonspecific retroperitoneal lymph nodes. VESSELS: There is moderate atherosclerotic disease in the aorta and major arterial branches. Stable foci of infrarenal abdominal aortic aneurysm, measuring 3.6 cm (series 1, images 78 and 86). PERITONEUM / RETROPERITONEUM: No free air or fluid. BONES: Interval screw fixation of right iliac bone. Hyperdense material within previously seen right iliac metastatic mass with soft tissue component, probably cement material. Only part of the enhancing soft tissue component is visualized on today's exam (image 55 series 4) SOFT TISSUES: Unremarkable. IMPRESSION: 1.Redemonstration of bilateral lung nodules and calcified granulomas. A nodule in the right middle lobe appears more prominent when compared to prior CT. Recommend attention on follow-up examination. 2.Postsurgical changes of left nephrectomy. There is small amount of fluid in the surgical bed which is inseparable from left adrenal gland. 3.Subcentimeter right iliac chain lymph nodes, of which one has mildly increased in size when compared to prior CT dated 07/24/2018. Attention on follow-up examination. 4.Status post screw fixation and hyperintense material insertion in the metastatic right iliac lesion with soft tissue component. Persistent enhancing soft tissue component is visualized. 5.Again seen markedly enlarged prostate gland. 6.Not significantly changed foci of infrarenal abdominal aortic aneurysm. Signed: Elías Castellon MD Report Verified Date/Time:09/19/2018 14:29:11 Reading Location: [facility] Room [address] [place] [address] Procedure Note Interface, External Ris In - 09/19/2018 2:31 PM CDT FINAL REPORT EXAM: CT Chest, Abdomen and Pelvis WITH contrast INDICATION: clear cell renal cell carcinoma left COMPARISON: CT dated 07/24/2018 TECHNIQUE: Chest, abdomen and pelvis were scanned utilizing a multidetector helical scanner from the lung apex to the pubic symphysis after administration of IV contrast. Coronal and sagittal reformations were obtained. Dose modulation, iterative reconstruction, and/or weight based adjustment of the mA/kV was utilized to reduce the radiation dose to as low as reasonably achievable. Routine protocol was performed. Scan was performed when during portal venous phase. IV CONTRAST: 100 mL of Isovue-300 ORAL CONTRAST: Water COMPLICATIONS: None RADIATION DOSE: Total DLP: 1163.40 mGy*cm Estimated effective dose: (DLP x 0.015 x size factor) mSv CTDIvol has been reviewed. It is below the limits set by the Radiation Protocol Committee (RPC). FINDINGS: LINES and TUBES: None. LUNGS AND AIRWAYS: 3 mm right upper lobe nodule versus calcified granuloma (series 2, image 53) was punctate on prior exam. Left lower lobe calcified granuloma There are a few additional scattered calcified granulomas. Unchanged 5 mm right upper lobe nodule (2/73). 5 mm right middle lobe nodule, abutting the major fissure (series 2, image 92), previously 4 mm. Subpleural posterior left lower lobe nodule measures 3 mm and appears more prominent from prior exam (series 2, image 99). Airways are normal. PLEURA: The pleural spaces are clear. HEART AND MEDIASTINUM: The thyroid gland is normal. No mediastinal, hilar or axillary lymphadenopathy. Unchanged scattered nonspecific mostly subcentimeter mediastinal lymph nodes, for example stable 1 cm right or 0.8 cm right paratracheal lymph nodes (series 1, images 15, 16, and 23). The heart is normal in size.. There is no pericardial effusion. Atherosclerotic calcification of coronary arteries. Main pulmonary artery measures 3.5 cm, mildly dilated. HEPATOBILIARY: Unchanged left hepatic lobe calcified granuloma. No hepatic mass. Unchanged indeterminate faint linear hypodensity in segment VIII. No biliary ductal dilation. GALLBLADDER: No radio-opaque stones or sludge. No wall thickening. SPLEEN: No splenomegaly. PANCREAS: No focal masses or ductal dilatation. ADRENALS: No adrenal nodules KIDNEYS/URETERS: Postsurgical changes of left nephrectomy. Small amount of fluid in the surgical bed, extending to the adrenal gland, best seen on coronal image 67. 5 mm right renal inferior pole nonobstructive calculus. No right hydronephrosis. Right renal inferior pole subcentimeter hypodensities are too small to characterize. GI TRACT: No abnormal distention, wall thickening, or evidence of bowel obstruction. Appendix is normal. PELVIC ORGANS/BLADDER: Markedly enlarged prostate gland. Bladder is not distended, demonstrating wall thickening. LYMPH NODES: Unchanged 1 cm right external iliac lymph node (series 1, image 117). A 0.8 cm right external iliac lymph node (1/113), previously 0.6 cm. Another right iliac chain node measures 0.9 cm (1/108), previously 0.5 cm. Not significantly changed 0.6 cm portacaval lymph node (/). A few additional subcentimeter nonspecific retroperitoneal lymph nodes. VESSELS: There is moderate atherosclerotic disease in the aorta and major arterial branches. Stable foci of infrarenal abdominal aortic aneurysm, measuring 3.6 cm (series 1, images 78 and 86). PERITONEUM / RETROPERITONEUM: No free air or fluid. BONES: Interval screw fixation of right iliac bone. Hyperdense material within previously seen right iliac metastatic mass with soft tissue component, probably cement material. Only part of the enhancing soft tissue component is visualized on today's exam (image 55 series 4) SOFT TISSUES: Unremarkable. IMPRESSION: 1.Redemonstration of bilateral lung nodules and calcified granulomas. A nodule in the right middle lobe appears more prominent when compared to prior CT. Recommend attention on follow-up examination. 2.Postsurgical changes of left nephrectomy. There is small amount of fluid in the surgical bed which is inseparable from left adrenal gland. 3.Subcentimeter right iliac chain lymph nodes, of which one has mildly increased in size when compared to prior CT dated 07/24/2018. Attention on follow-up examination. 4.Status post screw fixation and hyperintense material insertion in the metastatic right iliac lesion with soft tissue component. Persistent enhancing soft tissue component is visualized. 5.Again seen markedly enlarged prostate gland. 6.Not significantly changed foci of infrarenal abdominal aortic aneurysm. Signed: Elías Castellon MD Report Verified Date/Time: 09/19/2018 14:29:11 Reading Location: [facility] Room [address] [place] [address] Performing Organization Address City/State/Zipcode Phone Number [facility] Chest with IV Contrast (09/18/2018 3:00 PM CDT)Only the most recent of2 resultswithin the time period is included. Specimen Narrative Performed At FINAL REPORT [facility] EXAM: CT Chest, Abdomen and Pelvis WITH contrast INDICATION:clear cell renal cell carcinoma left COMPARISON: CT dated 07/24/2018 TECHNIQUE: Chest, abdomen and pelvis were scanned utilizing a multidetector helical scanner from the lung apex to the pubic symphysis after administration of IV contrast. Coronal and sagittal reformations were obtained. Dose modulation, iterative reconstruction, and/or weight based adjustment of the mA/kV was utilized to reduce the radiation dose to as low as reasonably achievable. Routine protocol was performed. Scan was performed when during portal venous phase. IV CONTRAST: 100 mL of Isovue-300 ORAL CONTRAST: Water COMPLICATIONS: None RADIATION DOSE: Total DLP: 1163.40 mGy*cm Estimated effective dose: (DLP x 0.015 x size factor) mSv CTDIvol has been reviewed. It is below the limits set by the Radiation Protocol Committee (RPC). FINDINGS: LINES and TUBES: None. LUNGS AND AIRWAYS:3 mm right upper lobe nodule versus calcified granuloma (series 2, image 53) was punctate on prior exam. Left lower lobe calcified granuloma There are a few additional scattered calcified granulomas. Unchanged 5 mm right upper lobe nodule (2/73). 5 mm right middle lobe nodule, abutting the major fissure (series 2, image 92), previously 4 mm. Subpleural posterior left lower lobe nodule measures 3 mm and appears more prominent from prior exam (series 2, image 99). Airways are normal. PLEURA: The pleural spaces are clear. HEART AND MEDIASTINUM: The thyroid gland is normal.No mediastinal, hilar or axillary lymphadenopathy.Unchanged scattered nonspecific mostly subcentimeter mediastinal lymph nodes, for example stable 1 cm right or 0.8 cm right paratracheal lymph nodes (series 1, images 15, 16, and 23). The heart is normal in size.. There is no pericardial effusion.Atherosclerotic calcification of coronary arteries. Main pulmonary artery measures 3.5 cm, mildly dilated. HEPATOBILIARY: Unchanged left hepatic lobe calcified granuloma.No hepatic mass. Unchanged indeterminate faint linear hypodensity in segment VIII.No biliary ductal dilation. GALLBLADDER: No radio-opaque stones or sludge.No wall thickening. SPLEEN: No splenomegaly. PANCREAS: No focal masses or ductal dilatation. ADRENALS: No adrenal nodules KIDNEYS/URETERS: Postsurgical changes of left nephrectomy. Small amount of fluid in the surgical bed, extending to the adrenal gland, best seen on coronal image 67. 5 mm right renal inferior pole nonobstructive calculus. No right hydronephrosis. Right renal inferior pole subcentimeter hypodensities are too small to characterize. GI TRACT: No abnormal distention, wall thickening, or evidence of bowel obstruction. Appendix is normal. PELVIC ORGANS/BLADDER: Markedly enlarged prostate gland. Bladder is not distended, demonstrating wall thickening. LYMPH NODES: Unchanged 1 cm right external iliac lymph node (series 1, image 117). A 0.8 cm right external iliac lymph node (/113), previously 0.6 cm. Another right iliac chain node measures 0.9 cm (1/108), previously 0.5 cm. Not significantly changed 0.6 cm portacaval lymph node (/). A few additional subcentimeter nonspecific retroperitoneal lymph nodes. VESSELS: There is moderate atherosclerotic disease in the aorta and major arterial branches. Stable foci of infrarenal abdominal aortic aneurysm, measuring 3.6 cm (series 1, images 78 and 86). PERITONEUM / RETROPERITONEUM: No free air or fluid. BONES: Interval screw fixation of right iliac bone. Hyperdense material within previously seen right iliac metastatic mass with soft tissue component, probably cement material. Only part of the enhancing soft tissue component is visualized on today's exam (image 55 series 4) SOFT TISSUES: Unremarkable. IMPRESSION: 1.Redemonstration of bilateral lung nodules and calcified granulomas. A nodule in the right middle lobe appears more prominent when compared to prior CT. Recommend attention on follow-up examination. 2.Postsurgical changes of left nephrectomy. There is small amount of fluid in the surgical bed which is inseparable from left adrenal gland. 3.Subcentimeter right iliac chain lymph nodes, of which one has mildly increased in size when compared to prior CT dated 07/24/2018. Attention on follow-up examination. 4.Status post screw fixation and hyperintense material insertion in the metastatic right iliac lesion with soft tissue component. Persistent enhancing soft tissue component is visualized. 5.Again seen markedly enlarged prostate gland. 6.Not significantly changed foci of infrarenal abdominal aortic aneurysm. Signed: Elías Castellon MD Report Verified Date/Time:09/19/2018 14:29:11 Reading Location: [facility] Reading Room [address] [place] [address] Procedure Note Interface, External Ris In - 09/19/2018 2:31 PM CDT FINAL REPORT EXAM: CT Chest, Abdomen and Pelvis WITH contrast INDICATION: clear cell renal cell carcinoma left COMPARISON: CT dated 07/24/2018 TECHNIQUE: Chest, abdomen and pelvis were scanned utilizing a multidetector helical scanner from the lung apex to the pubic symphysis after administration of IV contrast. Coronal and sagittal reformations were obtained. Dose modulation, iterative reconstruction, and/or weight based adjustment of the mA/kV was utilized to reduce the radiation dose to as low as reasonably achievable. Routine protocol was performed. Scan was performed when during portal venous phase. IV CONTRAST: 100 mL of Isovue-300 ORAL CONTRAST: Water COMPLICATIONS: None RADIATION DOSE: Total DLP: 1163.40 mGy*cm Estimated effective dose: (DLP x 0.015 x size factor) mSv CTDIvol has been reviewed. It is below the limits set by the Radiation Protocol Committee (RPC). FINDINGS: LINES and TUBES: None. LUNGS AND AIRWAYS: 3 mm right upper lobe nodule versus calcified granuloma (series 2, image 53) was punctate on prior exam. Left lower lobe calcified granuloma There are a few additional scattered calcified granulomas. Unchanged 5 mm right upper lobe nodule (2/73). 5 mm right middle lobe nodule, abutting the major fissure (series 2, image 92), previously 4 mm. Subpleural posterior left lower lobe nodule measures 3 mm and appears more prominent from prior exam (series 2, image 99). Airways are normal. PLEURA: The pleural spaces are clear. HEART AND MEDIASTINUM: The thyroid gland is normal. No mediastinal, hilar or axillary lymphadenopathy. Unchanged scattered nonspecific mostly subcentimeter mediastinal lymph nodes, for example stable 1 cm right or 0.8 cm right paratracheal lymph nodes (series 1, images 15, 16, and 23). The heart is normal in size.. There is no pericardial effusion. Atherosclerotic calcification of coronary arteries. Main pulmonary artery measures 3.5 cm, mildly dilated. HEPATOBILIARY: Unchanged left hepatic lobe calcified granuloma. No hepatic mass. Unchanged indeterminate faint linear hypodensity in segment VIII. No biliary ductal dilation. GALLBLADDER: No radio-opaque stones or sludge. No wall thickening. SPLEEN: No splenomegaly. PANCREAS: No focal masses or ductal dilatation. ADRENALS: No adrenal nodules KIDNEYS/URETERS: Postsurgical changes of left nephrectomy. Small amount of fluid in the surgical bed, extending to the adrenal gland, best seen on coronal image 67. 5 mm right renal inferior pole nonobstructive calculus. No right hydronephrosis. Right renal inferior pole subcentimeter hypodensities are too small to characterize. GI TRACT: No abnormal distention, wall thickening, or evidence of bowel obstruction. Appendix is normal. PELVIC ORGANS/BLADDER: Markedly enlarged prostate gland. Bladder is not distended, demonstrating wall thickening. LYMPH NODES: Unchanged 1 cm right external iliac lymph node (series 1, image 117). A 0.8 cm right external iliac lymph node (1/113), previously 0.6 cm. Another right iliac chain node measures 0.9 cm (1/108), previously 0.5 cm. Not significantly changed 0.6 cm portacaval lymph node (/83). A few additional subcentimeter nonspecific retroperitoneal lymph nodes. VESSELS: There is moderate atherosclerotic disease in the aorta and major arterial branches. Stable foci of infrarenal abdominal aortic aneurysm, measuring 3.6 cm (series 1, images 78 and 86). PERITONEUM / RETROPERITONEUM: No free air or fluid. BONES: Interval screw fixation of right iliac bone. Hyperdense material within previously seen right iliac metastatic mass with soft tissue component, probably cement material. Only part of the enhancing soft tissue component is visualized on today's exam (image 55 series 4) SOFT TISSUES: Unremarkable. IMPRESSION: 1.Redemonstration of bilateral lung nodules and calcified granulomas. A nodule in the right middle lobe appears more prominent when compared to prior CT. Recommend attention on follow-up examination. 2.Postsurgical changes of left nephrectomy. There is small amount of fluid in the surgical bed which is inseparable from left adrenal gland. 3.Subcentimeter right iliac chain lymph nodes, of which one has mildly increased in size when compared to prior CT dated 07/24/2018. Attention on follow-up examination. 4.Status post screw fixation and hyperintense material insertion in the metastatic right iliac lesion with soft tissue component. Persistent enhancing soft tissue component is visualized. 5.Again seen markedly enlarged prostate gland. 6.Not significantly changed foci of infrarenal abdominal aortic aneurysm. Signed: Elías Castellon MD Report Verified Date/Time: 09/19/2018 14:29:11 Reading Location: [facility] Reading Room [address] [place] [address] Performing Organization Address City/State/Zipcode Phone Number [facility] RIS POC-Creatinine (09/18/2018 2:16 PM CDT) POC-Creatinine 1.4 (H)Comment: TESTED AT 0.6 - 1.3 mg/dL [facility] [address] [facility] [id number] POC-EGFR 50 mL/min/1.73M2 [facility] Specimen Blood Performing Organization Address City/State/Zipcode Phone Number [facility] [address] [place] [id number] [place] Basic Metabolic Panel - In AM (08/25/2018 5:52 AM CDT)Only the most recent of13 resultswithin the time period is included. Sodium 141 136 - 145 meq/L [facility] Potassium 4.5 3.5 - 5.1 meq/L [facility] Chloride 107 98 - 107 meq/L [facility] CO2 27 22 - 29 meq/L [facility] BUN 20 7 - 21 mg/dL [facility] Creatinine 1.34 (H) 0.57 - 1.25 mg/dL [facility] Glucose 104 70 - 105 mg/dL [facility] Calcium 9.2 8.4 - 10.2 mg/dL [facility] EGFR 53Comment: ESTIMATED GFR IS mL/min/1.73 sq m [facility] NOT ACCURATE [facility] CLEARANCE IN PREDICTING GLOMERULAR FILTRATION RATE. ESTIMATED GFR IS NOT APPLICABLE FOR DIALYSIS PATIENTS. Specimen Blood Performing Organization Address City/[facility]/Zipcode Phone Number [facility] [address] [place] [phone] [place] TRANSFUSION SERVICE REPORT - SCAN (08/22/2018 6:01 PM CDT)Only the most recent of5 resultswithin the time period is included. Narrative Performed At POC-Glucose meter (08/22/2018 11:19 AM CDT)Only the most recent of35 resultswithin the time period is included. POC-Glucose Meter 110Comment: TESTED AT 70 - 110 mg/dL [facility] [address] [place] [id number] Specimen Blood Performing Organization Address City/[facility] Hospitalcode Phone Number [address] [address] CENTER Hemoglobin and hematocrit (08/21/2018 9:15 PM CDT)Only the most recent of2 resultswithin the time period is included. Hemoglobin 8.8 (L) 13.7 - 17.5 GM/DL [facility] Hematocrit 28.4 (L) 40.1 - 51.0 % [facility] Specimen Blood Performing Organization Address [facility] Hospitalcoor Phone Number [address] [phone] [place] Tissue Exam (08/21/2018 7:02 PM CDT)Only the most recent of2 resultswithin the time period is included. Case Report Surgical Pathology Report Case: [id number] [facility] Authorizing Provider:Donald Mcdaniels MD Collected: 08/21/[address] 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 [facility] THE TUMOR IS CONFINED TO THE KIDNEY. LYMPHOVASCULAR INVASION IS NOT IDENTIFIED. TWO LYMPH NODES, NEGATIVE FOR CARCINOMA (0/2). SURGICAL MARGINS ARE NEGATIVE FOR TUMOR. PORTION OF ADRENAL GLAND, NEGATIVE FOR TUMOR. AJCC CLASSIFICATION [id number]. SEE SYNOPTIC REPORT. Signing Pathologist Direct Phone Line: [phone] SYNOPTIC REPORT KIDNEY: Nephrectomy(Kidney Res - All Specimens) [facility] SPECIMEN Procedure:Radical nephrectomy Specimen Laterality:Left TUMOR Tumor [...] (pT):pT1b Regional Lymph Nodes (pN):pN0 CPT Code(s) 76608 [facility] CLINICAL HISTORY Kidney mass [facility] SPECIMEN SOURCE Left kidney [facility] GROSS DESCRIPTION The specimen is received in a formalin-filled container labeled with the patient's information and labeled "left kidney" and consists of a 1,110 gm left radical nephrectomy measuring 27 x 10 x [address] [facility] ureter measuring 4 cm in length x 0.3 cm in diameter. There is an attached portion of adrenal gland attached to the hilar area measuring 1.5 x 1 x 0.3 cm. It is not grossly involved by tumor.The kidney [facility] is sectioned showing a multinodular, hemorrhagic, couch, [...] parenchyma superior pole. CG/ew MICROSCOPIC DESCRIPTION PERFORMED. [facility] Specimen Tissue Performing Organization Address [facility] Hospital[facility] Phone Number [address] [phone] CENTER Type and screen, automated (08/21/2018 12:28 PM CDT)Only the most recent of2 resultswithin the time period is included. ABO/RH AUTOMATED (BEAKER) O POSITIVE [facility] Ab Scrn NEGATIVE [facility] Specimen Blood Performing Organization Address [facility] Hospitalcoor Phone Number [address] [phone] Prepare Leuko-Red RBC (08/16/2018 11:55 PM CDT) CROSSMATCH COMPATIBLE SAFETRACE TX Unit ABO O Pos SAFETRACE TX UNIT NUMBER [id number] SAFETRACE TX Status TX_TIMEINCHART SAFETRACE TX Blood Bank Product RED BLOOD CELLS SAFETRACE TX PRODUCT CODE [id number] SAFETRACE TX Specimen Other Performing Organization Address [facility] Phone Number SAFETRACE TX Transfuse Leuko-Red RBC (08/16/2018 3:26 AM CDT)Only the most recent of4 resultswithin the time period is included.Phosphorus (08/15/2018 4:16 AM CDT) Only the most recent of3 resultswithin the time period is included. Phosphorus 2.7 2.3 - 4.7 mg/dL [facility] Specimen Blood Performing Organization Address City/[facility]/Zipcode Phone Number [address] [address] CENTER Magnesium (08/15/2018 4:16 AM CDT)Only the most recent of3 resultswithin the time period is included. Magnesium 1.6 1.6 - 2.6 mg/dL [facility] Specimen Blood Performing Organization Address City/[facility] Phone Number [facility] [address] [place] [address] CENTER Hepatic function panel (08/15/2018 4:16 AM CDT)Only the most recent of4 resultswithin the time period is included. Protein, Total 6.4 6.0 - 8.3 gm/dL [facility] Albumin 3.4 (L) 3.5 - 5.0 g/dL [facility] Total Bilirubin 0.5 0.2 - 1.2 mg/dL [facility] Bilirubin, Direct 0.3 0.1 - 0.5 mg/dL [facility] Alkaline Phosphatase 76 40 - 150 U/L [facility] AST 19 5 - 34 U/L [facility] ALT 6 6 - 55 U/L [facility] Specimen Blood Performing Organization Address [facility] Hospital[facility] Phone Number [facility] [address] [place] [address] CENTER Prepare RBC (08/14/2018 11:55 PM CDT) CROSSMATCH COMPATIBLE SAFETRACE TX Unit ABO O Pos SAFETRACE TX UNIT NUMBER [id number] SAFETRACE [place] Status TX_TIMEINCHART SAFETRACE [place] Blood Bank Product RED BLOOD CELLS SAFETRACE TX PRODUCT CODE [id number] SAFETRACE TX CROSSMATCH COMPATIBLE SAFETRACE TX Unit ABO O Pos SAFETRACE TX UNIT NUMBER [id number] SAFETRACE TX Status TX_TIMEINCHART SAFETRACE TX Blood Bank Product RED BLOOD CELLS SAFETRACE [place] PRODUCT CODE [id number] SAFETRACE TX Performing Organization Address [facility] Phone Number SAFETRACE TX XR pelvis 1 [...] MD Report Verified Date/Time:08/13/2018 20:11:08 Reading Location: [facility] C013 Consult Reading Room Procedure [...] Report Verified Date/Time: 08/13/2018 20:11:08 Reading Location: [facility] C013 Consult Reading Room Performing Organization Address City/State/Zipcode Phone Number [facility] [place] flight radio operator in or 30 minute increments (08/13/2018 4:15 PM CDT) Specimen Narrative Performed At FINAL REPORT [facility] Operative right hip, 08/13/2018 Eight images are submitted of the right hip in various projections displaying initial placement of of contrast into the superior acetabular region followed by placement of two screws extending transversely into the acetabulum. 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 Signed: Rika Escobar MD Report Verified Date/Time:08/13/2018 17:33:20 Reading Location: [facility] C013 Consult Reading Room Procedure [...] Report Verified Date/Time: 08/13/2018 17:33:20 Reading Location: [address] Consult Reading Room Performing Organization Address City/[facility] Phone Number GE RIS ce NGUYEN (08/13/2018 1:09 PM CDT) ABO Grouping O [facility] Rh Factor POS [facility] Specimen Blood Performing Organization Address [facility] Phone Number [address] [address] Lipid panel (08/13/2018 3:02 AM CDT) Triglycerides 133 mg/dL [facility] Cholesterol 108 mg/dL [facility] HDL 25 mg/dL [facility] LDL Calculated 56 mg/dL [facility] Specimen Blood Narrative Performed At Triglyceride Reference Range: [facility] Low Risk <150 [id number] High Risk 200-499 Very High Risk>=500 Cholesterol Reference Range: Low Risk <200 [id number] High Risk>240 HDL Cholesterol Reference Range: Low Risk >=60 High Risk <40 LDL Cholesterol Reference Range: Optimal<100 Near [id number] Qfpnibzyas709-625 Wwdi599-158 Very High >=190 Performing Organization Address [facility] Phone Number [address] [address] CENTER IR Embolization Bleed (08/12/2018 5:40 PM CDT) Specimen Narrative Performed At FINAL REPORT [facility] Right iliac wing lesion preoperative arterial embolization. History: 68-year-old male with metastatic RCC Modality: Sonography and fluoroscopy. Sedation: Moderate sedation was administered. 4 mg of Versed [id number] mcg of fentanyl IV was used for moderate sedation monitored under my direction. Total intra-service time of sedation [id number]. The patient's vital signs were monitored throughout the procedure and recorded in the patient's medical record by the nurse. Return Clerk:Austin Frost MD. Corner Brace Block Machine Operator:None. Approach: Left common femoral artery Estimated blood [...] The needle was exchanged for a 4 Liberian micropuncture sheath. The micropuncture sheath was exchanged over a 0.035 Bentson wire for a 5 Liberian x 10 cm vascular sheath. Using a 5 Liberian contra catheter and 0.035 angled Glidewire, the right common iliac artery was accessed via an up and over technique. A 4 Liberian glide catheter was advanced into the left common iliac artery and a DSA run was performed. Using a 2.8 Liberian microcatheter and 0.016 inch microwire, the circumflex [...] The arteriotomy was closed using a 5 Liberian Myxn closure device. A sterile dressing was [...] MD Report Verified Date/Time:08/15/2018 15:04:06 Reading Location: [place] [address] Angio Body Reading Room Procedure Note Interface, [...] the patient's medical record by the nurse. Return Clerk: Austin Frost MD. Corner Brace Block Machine Operator: None. Approach: Left common femoral artery Estimated [...] The needle was exchanged for a 4 Liberian micropuncture sheath. The micropuncture sheath was exchanged over a 0.035 Bentson wire for a 5 Liberian x 10 cm vascular sheath. Using a 5 Liberian contra catheter and 0.035 angled Glidewire, the right common iliac artery was accessed via an up and over technique. A 4 Liberian glide catheter was advanced into the left common iliac artery and a DSA run was performed. Using a 2.8 Liberian microcatheter and 0.016 inch microwire, the circumflex [...] The arteriotomy was closed using a 5 Liberian Myxn closure device. A sterile dressing was [...] Report Verified Date/Time: 08/15/2018 15:04:06 Reading Location: [facility] P048 Angio Body Reading Room Performing Organization Address City/State/Zipcode Phone Number [facility] aPTT (08/12/2018 11:08 AM CDT) PTT 30.9 22.5 - 36.0 seconds [facility] CENTER Specimen Blood Performing Organization Address City/State/Zipcode Phone Number [phone] [address] [place] [address] CENTER XR knee 1 or 2 views left (07/28/2018 2:48 PM CDT) Specimen Narrative Performed At FINAL REPORT [facility] Left knee dated 07/29/2018 Comment: To views [...] MD Report Verified Date/Time:07/29/2018 12:35:32 Reading Location: [facility] [id number] Consult Reading Room Procedure [...] Report Verified Date/Time: 07/29/2018 12:35:32 Reading Location: [facility] B1 C013W Consult Reading Room Performing Organization Address City/State/Zipcode Phone Number [facility] US renal biopsy (07/28/2018 11:40 AM CDT) Specimen Narrative Performed At FINAL REPORT [facility] INDICATION: 68-year-old male with left renal mass. [...] MD Report Verified Date/Time:07/28/2018 11:52:52 Reading Location: [facility] B1 [id number] Ultrasound Reading Room Procedure Note [...] Report Verified Date/Time: 07/28/2018 11:52:52 Reading Location: [address] Ultrasound Reading Room Performing Organization Address [facility] Phone Number GE [facility] PT/aPTT (07/28/2018 4:39 AM CDT) Protime 13.2 11.7 - 14.7 seconds [facility] INR 1.0 <=5.9 [facility] PTT 33.2 22.5 - 36.0 seconds [facility] Specimen Blood Narrative Performed At RECOMMENDED COUMADIN/WARFARIN INR THERAPY [facility] RANGES STANDARD DOSE: 2.0 - 3.0 Includes: PROPHYLAXIS for venous thrombosis, systemic embolization; TREATMENT for venous thrombosis and/or pulmonary embolus. HIGH RISK: Target INR is 2.5-3.5 for patients with mechanical heart valves. Performing Organization Address City/[facility]/Zipcode Phone Number [address] [address] CENTER NM bone scan whole body (07/27/2018 6:05 PM CDT) Specimen Narrative Performed At FINAL REPORT [facility] PROCEDURE: BONE SCAN, WHOLE BODY CPT CODE:68900 INDICATION:Renal masses pelvic mass concerning for renal [...] PROCEDURE: BONE SCAN, WHOLE BODY CPT CODE: [id number] INDICATION: Renal masses pelvic mass concerning for [...] 20:29:10 Performing Organization Address City/State/Zipcode Phone Number [facility] ECHOCARDIOGRAM REPORT - SCAN (07/25/2018 9:23 PM CDT) Narrative Performed At 2D Echo W/Doppler(CW/PW/Color) (07/25/2018 8:10 AM CDT) Ejection Fraction [facility] Specimen Narrative Performed At Transthoracic Echocardiography Report (TTE) [facility] MKCKESSON 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 LETICIA Tafoya, RDCS,RVT,RDMS Tank Filler Laz Cruz Interpreting BSC Needs to be [...] LVOT CI: 2.55 l/min/m^2 Performing Organization Address [facility] Phone Number [facility] MKCKESSON [facility] Vitamin B12 and Folate (07/25/2018 5:17 AM CDT) Vitamin B12 1,244 (H) 213 - 816 pg/mL [facility] Folate 5.1 (L) >=7.0 ng/mL [facility] Specimen Blood Performing Organization Address [facility] Phone Number [address] [address] CENTER Iron, TIBC, % sat. (without ferritin) (07/25/2018 5:17 AM CDT) Iron 56.0 40.0 - 160.0 ug/dL [facility] TIBC 296 250 - 450 ug/dL [facility] Iron % Saturation 19 (L) 20 - 55 % [facility] Specimen Blood Performing Organization Address [facility] Phone Number [address] [address] [phone] [place] Hemoglobin A1c (07/25/2018 5:17 AM CDT) Hemoglobin A1C 4.5 4.3 - 6.1 % [facility] Specimen Blood Performing Organization Address [facility] Phone Number [address] [address] [place] Ferritin (07/25/2018 5:17 AM CDT) Ferritin 283 (H) 5 - 275 ng/mL [facility] Specimen Blood Performing Organization Address [facility] Phone Number [address] [place] [address] abdomen/pelvis with IV contrast (07/24/2018 8:51 PM CDT) Specimen Narrative Performed At FINAL REPORT [facility] CT of the Chest, abdomen and pelvis [...] MD Report Verified Date/Time:07/24/2018 21:44:37 Reading Location: [facility] [id number] Consult Reading Room Procedure [...] Report Verified Date/Time: 07/24/2018 21:44:37 Reading Location: [facility] C013W Consult Reading Room Performing Organization Address City/State/Zipcode Phone Number [facility] Urinalysis w/Microscopic + Reflex to Culture (07/24/2018 4:44 PM CDT) Color, UA Yellow [facility] Clarity, UA Clear [facility] Specific [place], UA 1.022 1.001 - 1.035 [facility] pH, UA 6.0 5.0 - 8.0 [facility] Protein, UA 50 mg/dL (A) Negative [facility] Glucose, UA Negative Negative [facility] Ketones, UA Negative Negative [facility] Bilirubin, UA Negative Negative [facility] Blood, UA Negative Negative [facility] Nitrite, UA Negative Negative [facility] Leukocytes, UA Negative Negative [facility] Urobilinogen, UA 0.2 0.2 - 1.0 mg/dL [facility] RBC, UA <1 /HPF [facility] WBC, UA <1 /HPF [facility] Mucus Few [facility] Specimen Source [facility] Specimen Urine Performing Organization Address City/State/Zipcode Phone Number [facility] [address] [place] [address] [phone] CENTER after 12/02/2017 Insurance Payer Benefit Plan / Group Subscriber ID Type Phone Address MEDICARE MEDICARE A B xxxxxxxxxxx Medicare [facility] GENERIC MEDICARE xxxxxxx Medigap SUPPLEMENT/INDIVIDUAL SUPPLEMENT Advance Directives For more information, please contact:[place] [address] [address] [place], [place] [phone] Code Status Date Activated Date Inactivated Comments Full Code 08/21/2018 10:21 PM 08/25/2018 7:01 PM This code status was determined by: [...]
--- OUTSIDE RECORDS SUMMARY | 2018-12-03 18:08 | XMS REPORT ---
:1950 [facility] [address] [place] [address] Care Team Providers Name Role Phone LAITH TOMANA LUISAMiles MCDONALD Unavailable Unavailable MARIO MCDANIELS Unavailable Unavailable CORNELIA JIMENES Unavailable Unavailable SAVITA, ALYCIA RUSSO Unavailable Unavailable Problems This patient has no known problems. Allergies, Adverse Reactions, Alerts This patient has no known allergies or adverse reactions. Medications This patient has no known medications. Results Test Description Test Time Test Comments Text Results Atomic Results Result Comments MORALES LEMA, 2018-10-01 08:46:00 Reason for FINAL REPORT PATIENT ID: FLUORO Exam:->Clear cell [id number] HISTORY: Renal renal cell carcinoma cell carcinoma PROCEDURE: left Following informed written consent, the patient's right [...] internal jugular chest port. Fluoroscopy time: 1.7 minutesEstimated dose in (Ka,r): 18.1 mGy Signed: Cornelia Parikh MDReport Verified Date/Time: 10/01/2018 08:46:35 Reading Location: [place] [address] Angio Body Reading Room HROMBIN TIME/INR 2018-09-30 11:13:00 Test Item Value Reference Range Comments PROTIME (BEAKER) (test tfjm=963) 13.1 seconds 11.9-14.2 INR (BEAKER) (test nurj=147) 1.0 <=5.9 Effective 09/24/2018: PT Reference Range ChangeNew: 11.9-14.2 Previous: 11.7- 14.7RECOMMENDED COUMADIN/WARFARIN INR THERAPY RANGESSTANDARD DOSE: 2.0-3.0 Includes: PROPHYLAXIS for venous thrombosis, systemic embolization; TREATMENT for venous thrombosis and/or pulmonary embolus.HIGH RISK: Target INR is2.5-3.5 for patients wiht mechanical heart valves.CBC W/PLT COUNT & AUTO [id number] 11:03:00 Test Item Value Reference Range Comments WHITE BLOOD CELL COUNT (BEAKER) (test qtpr=439) 5.3 K/ L 3.5-10.5 RED BLOOD CELL COUNT (BEAKER) (test hdwq=673) 3.96 M/ L 4.63-6.08 HEMOGLOBIN (BEAKER) (test uduk=452) 11.3 GM/DL 13.7-17.5 HEMATOCRIT (BEAKER) (test hqcj=809) 36.6 % 40.1-51.0 MEAN CORPUSCULAR VOLUME (BEAKER) (test hmzy=558) 92.4 fL 79.0-92.2 MEAN CORPUSCULAR HEMOGLOBIN (BEAKER) (test 28.5 pg 25.7-32.2 rjyj=301) MEAN CORPUSCULAR HEMOGLOBIN CONC (BEAKER) (test 30.9 GM/DL 32.3-36.5 aovj=143) RED CELL DISTRIBUTION WIDTH (BEAKER) (test 15.5 % 11.6-14.4 ksxo=253) PLATELET COUNT (BEAKER) (test cycv=803) 160 K/CU MM 150-450 MEAN PLATELET VOLUME (BEAKER) (test rvnh=783) 9.2 fL 9.4-12.4 NUCLEATED RED BLOOD CELLS (BEAKER) (test 0 /100 WBC 0-0 fhjr=718) NEUTROPHILS RELATIVE PERCENT (BEAKER) (test 51 % coai=093) LYMPHOCYTES RELATIVE PERCENT (BEAKER) (test 38 % yazj=113) MONOCYTES RELATIVE PERCENT (BEAKER) (test 7 % vxal=756) EOSINOPHILS RELATIVE PERCENT (BEAKER) (test 3 % aphv=518) BASOPHILS RELATIVE PERCENT (BEAKER) (test 1 % dzhs=561) NEUTROPHILS ABSOLUTE COUNT (BEAKER) (test 2.74 K/ L 1.78-5.38 lcvc=051) LYMPHOCYTES ABSOLUTE COUNT (BEAKER) (test 2.03 K/ L 1.32-3.57 fpeb=523) MONOCYTES ABSOLUTE COUNT (BEAKER) (test 0.37 K/ L 0.30-0.82 htqq=667) EOSINOPHILS ABSOLUTE COUNT (BEAKER) (test 0.14 K/ L 0.04-0.54 zqnm=737) BASOPHILS ABSOLUTE COUNT (BEAKER) (test 0.03 K/ L 0.01-0.08 ytkq=712) IMMATURE GRANULOCYTES-RELATIVE PERCENT (BEAKER) 0 % 0-1 (test httq=4407) CT, PELVIS, WITH IV [id number] 14:29:00FINAL REPORT EXAM: CT Chest, Abdomen and Pelvis WITH contrast INDICATION: clear cell renal cell carcinoma left COMPARISON: CT dated 07/24/2018TECHNIQUE: Chest, abdomen and pelvis were scanned utilizing a multidetector helical scanner from the lung apex to the pubic symphysis after administration of IV contrast. Coronal and sagittal reformations were obtained. Dose modulation, iterative reconstruction, and/or weight based adjustment of the mA/kV was utilized to reduce the radiation dose to as low as reasonably achievable. Routine protocol was performed. Scan was performedwhen during portal venous phase. IV CONTRAST: 100 mL of Isovue-300 ORAL CONTRAST: Water COMPLICATIONS: None RADIATION DOSE: Total DLP: 1163.40 mGy*cm Estimated effective dose : (DLP x 0.015 x size factor) mSv CTDIvol has been reviewed. It is below the limits set by the Radiation Protocol Committee (RPC). FINDINGS: LINES and TUBES: None. LUNGS AND AIRWAYS: 3 mm right upper lobe nodule versus calcified granuloma (series 2, image 53) was punctate on prior exam. Left lowerlobe calcified granuloma There are a few additional scattered calcified granulomas. Unchanged 5 mm right upper lobe nodule (2/73). 5 mm right middle lobe nodule, abutting the major fissure (series 2, image 92), previously 4 mm. Subpleural posterior left lower lobe nodule measures 3 mm and appears moreprominent from prior exam (series 2, image 99). Airways are normal. PLEURA: The pleural spaces areclear. HEART AND MEDIASTINUM: The thyroid gland is normal. No mediastinal, hilar or axillary lymphadenopathy. Unchanged scattered nonspecific mostly subcentimeter mediastinal lymph nodes, for examplestable 1 cm right or 0.8 cm right [...] VIII. No biliary ductal dilation. GALLBLADDER: No radio -opaque stones or sludge. No wall thickening. SPLEEN: [...] abdominal aortic aneurysm, measuring 3.6 cm (series 1 , images 78 and 86). PERITONEUM / RETROPERITONEUM: No free air or fluid. BONES: Interval screw fixation ofright iliac bone. Hyperdense material within previously seen [...] to prior CT. Recommend attention on follow-up examination.2.Postsurgical changes of left nephrectomy. There is small amount of fluid in the surgical bed which is inseparable from left adrenal gland.3.Subcentimeter right iliac chain lymph nodes, of which one has mildly increased in size when compared to prior CT dated 07/24/2018. Attention on follow -up examination.4.Status post screw fixation and hyperintense material insertion in the metastatic right iliac lesion with soft tissue component. Persistent enhancing soft tissue component is visualized.5.Again seen markedly enlarged prostate gland.6.Not significantly changed foci of infrarenal abdominal aortic aneurysm. Signed: Elías Castellon MDReport Verified Date/Time: 09/19/2018 14:29:11 Reading Location: [facility] Reading Room [address] [place] [address] CT, CHEST, WITH IV [id number] 14:29:00FINAL REPORT EXAM: CT Chest, Abdomen and Pelvis WITH contrast INDICATION: clear cell renal cell carcinoma left COMPARISON: CT dated 07/24/2018TECHNIQUE: Chest, abdomen and pelvis were scanned utilizing a multidetector helical scanner from the lung apex to the pubic symphysis after administration of IV contrast. Coronal and sagittal reformations were obtained. Dose modulation, iterative reconstruction, and/or weight based adjustment of the mA/kV was utilized to reduce the radiation dose to as low as reasonably achievable. Routine protocol was performed. Scan was performedwhen during portal venous phase. IV CONTRAST: 100 mL of Isovue-300 ORAL CONTRAST: Water COMPLICATIONS: None RADIATION DOSE: Total DLP: 1163.40 mGy*cm Estimated effective dose: ( DLP x 0.015 x size factor) mSv CTDIvol has been reviewed. It is below the limits set by the Radiation Protocol Committee (RPC). FINDINGS: LINES and TUBES : None. LUNGS AND AIRWAYS: 3 mm right upper lobe nodule versus calcified granuloma (series 2, image 53) was punctate on prior exam. Left lowerlobe calcified granuloma There are a few additional scattered calcified granulomas. Unchanged 5 mm right upper lobe nodule (2/73). 5 mm right middle lobe nodule, abutting the major fissure (series 2, image 92), previously 4 mm. Subpleural posterior left lower lobe nodule measures 3 mm and appears moreprominent from prior exam (series 2, image 99). Airways are normal. PLEURA: The pleural spaces areclear. HEART AND MEDIASTINUM: The thyroid gland is normal. No mediastinal, hilar or axillary lymphadenopathy. Unchanged scattered nonspecific mostly subcentimeter mediastinal lymph nodes, for examplestable 1 cm right or 0.8 cm right [...] VIII. No biliary ductal dilation. GALLBLADDER: No radio -opaque stones or sludge. No wall thickening. SPLEEN: [...] right iliac chain node measures 0.9 cm (/108), previously 0.5 cm. Not significantly changed 0.6 cm portacaval lymph node (/83). A few additional subcentimeter nonspecific retroperitoneal lymph nodes. VESSELS: There is moderate atherosclerotic disease in the aorta and major arterial branches. Stable foci of infrarenal abdominal aortic aneurysm, measuring 3.6 cm (series 1 , images 78 and 86). PERITONEUM / RETROPERITONEUM: No free air or fluid. BONES: Interval screw fixation ofright iliac bone. Hyperdense material within previously seen [...] to prior CT. Recommend attention on follow-up examination.2.Postsurgical changes of left nephrectomy. There is small amount of fluid in the surgical bed which is inseparable from left adrenal gland.3.Subcentimeter right iliac chain lymph nodes, of which one has mildly increased in size when compared to prior CT dated 07/24/2018. Attention on follow -up examination.4.Status post screw fixation and hyperintense material insertion in the metastatic right iliac lesion with soft tissue component. Persistent enhancing soft tissue component is visualized.5.Again seen markedly enlarged prostate gland.6.Not significantly changed foci of infrarenal abdominal aortic aneurysm. Signed: Elías Castellon Verified Date/Time: 09/19/2018 14:29:11 Reading Location: [facility] Reading Room [address] [place] [address] CT, ABDOMEN, WITH IV [id number] 14:29:00Reason for Exam:->clear cell renal cell carcinomaFINAL REPORT EXAM: CT Chest, Abdomen and Pelvis WITH contrast INDICATION: clear cell renal cell carcinoma left COMPARISON: CT dated 07/24/2018TECHNIQUE: Chest, abdomen and pelvis were scanned utilizing a multidetector helical scanner from the lung apex to the pubic symphysis after administration of IV contrast. Coronal and sagittal reformations were obtained. Dose modulation, iterative reconstruction, and/or weight based adjustment of the mA/kV was utilized to reduce the radiation dose to as low as reasonably achievable. Routine protocol was performed. Scan was performedwhen during portal venous phase. IV CONTRAST: 100 mL of Isovue-300 ORAL CONTRAST: Water COMPLICATIONS: None RADIATION DOSE: Total DLP: 1163.40 mGy*cm Estimated effective dose: (DLP x 0.015 x size factor) mSv CTDIvol has been reviewed. It is below the limits set by the Radiation Protocol Committee ( RPC). FINDINGS: LINES and TUBES: None. LUNGS AND AIRWAYS: 3 mm right upper lobe nodule versus calcified granuloma (series 2, image 53) was punctate on prior exam. Left lowerlobe calcified granuloma There are a few additional scattered calcified granulomas. Unchanged 5 mm right upper lobe nodule (2/73). 5 mm right middle lobe nodule, abutting the major fissure (series 2, image 92), previously 4 mm. Subpleural posterior left lower lobe nodule measures 3 mm and appears moreprominent from prior exam (series 2, image 99). Airways are normal. PLEURA: The pleural spaces areclear. HEART AND MEDIASTINUM: The thyroid gland is normal. No mediastinal, hilar or axillary lymphadenopathy. Unchanged scattered nonspecific mostly subcentimeter mediastinal lymph nodes, for examplestable 1 cm right or 0.8 cm right [...] of bowel obstruction. Appendix is normal. PELVIC ORGANS/ BLADDER: Markedly enlarged prostate gland. Bladder is not distended, demonstrating wall thickening. LYMPH NODES: Unchanged 1 cm right external iliac lymph node (series 1, image 117). A 0.8 cm right external iliac lymph node (/ 113), previously 0.6 cm. Another right iliac chain node measures 0.9 cm (/108) , previously 0.5 cm. Not significantly changed 0.6 cm portacaval lymph node (/ ). A few additional subcentimeter nonspecific retroperitoneal lymph nodes. VESSELS: There is moderate atherosclerotic disease in the aorta and major arterial branches. Stable foci of infrarenal abdominal aortic aneurysm, measuring 3.6 cm (series 1, images 78 and 86). PERITONEUM / RETROPERITONEUM: No free air or fluid. BONES: Interval screw fixation ofright iliac bone. Hyperdense material within previously seen [...] compared to prior CT. Recommend attention on follow- up examination.2.Postsurgical changes of left nephrectomy. There is small amount of fluid in the surgical bed which is inseparable from left adrenal gland.3.Subcentimeter right iliac chain lymph nodes, of which one has mildly increased in size when compared to prior CT dated 07/24/2018. Attention on follow -up examination.4.Status post screw fixation and hyperintense material insertion in the metastatic right iliac lesion with soft tissue component. Persistent enhancing soft tissue component is visualized.5.Again seen markedly enlarged prostate gland.6.Not significantly changed foci of infrarenal abdominal aortic aneurysm. Signed: Elías Castellon [facility] Verified Date/Time: 09/19/2018 14:29:11 Reading Location: [facility] Reading Room [address] [place] [address] POCT- [id number] 14:19:00 Test Item Value Reference Range Comments POC-CREATININE (BEAKER) 1.4 mg/dL 0.6-1.3 TESTED AT [facility] 7200 (test ypsv=6989) [facility] [address] POC-EGFR (BEAKER) (test 50 mL/min/1.73M2 pygd=1564) TISSUE [id number] 15:12:00Surgical Pathology Report Case: [id number] Authorizing Provider: Mario Mcdaniels MD Collected: 08/21/2018 1902 Ordering Location: [facility] PERIOPER[facility]IVE Received: 08/22/2018 0800 SERVICES Pathologist: El Busby MD Specimen: Kidney, Left, LEFT KIDNEY PART A LEFT KIDNEY AND ADRENAL GLAND, RADICAL NEPHRECTOMY:CLEAR CELL RENAL CELL CARCINOMA, NUCLEAR GRADE 2, 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 SEE SYNOPTIC REPORT. Signing [facility] Phone Line: [phone] signed by El Busby MD on 08/25/2018 at 3:12 PMKIDNEY: Nephrectomy (Kidney Res - All Specimens)SPECIMEN Procedure: Radical nephrectomy Specimen Laterality : Left TUMOR Tumor Site: Middle Histologic Type: Clear cell renalcell carcinoma Histologic Grade (WHO / ISUP Grade): G2: Nucleoli conspicuous and eosinophilic at 400x magnification, visible but not prominent at 100x magnification Tumor Size: Greatest dimension in Centimeters (cm): 6.5 Centimeters (cm) Additional Dimension in Centimeters (cm): 4.5Centimeters (cm) Additional Dimension in Centimeters (cm): 4 Centimeters (cm) Tumor Focality: Unifocal Tumor Extent: Tumor Extension: Tumor limited to kidney Accessory Findings: Sarcomatoid Features: Not identified Rhabdoid Features: Not identified Tumor Necrosis: Present Percentage of Necrosis: 20 % Lymphovascular Invasion: Notidentified MARGINS Margins: Uninvolved by invasive carcinoma LYMPH NODES Number of Lymph Nodes Involved: 0 Number of Lymph Nodes Examined: 2 PATHOLOGIC STAGE CLASSIFICATION ( pTNM, AJCC 8th Edition) Primary Tumor (pT): pT1b Regional Lymph Nodes ( pN): pN0 [id number] mass Leftkidney The specimen is received in a formalin- filled container labeled with the patient's information and labeled "left kidney " and consists of a 1,110 gm left radical nephrectomy measuring 27 x 10 x 6cm with ureter measuring 4 cm in length [...] bulging the capsule but grossly confined within it.The mass grossly pushing up against the renal sinus but does not involve it grossly. The pelvis and ureter are grossly unremarkable with a couch- pink mucosa. The hilum yields two red lymph [...] grossly uninvolved kidney parenchyma superior pole. CG/ew PERFORMED.BASIC METABOLIC [id number] 06:41:00 Test Item Value Reference Range Comments SODIUM (BEAKER) (test 141 meq/L 136-145 sfqa=850) POTASSIUM (BEAKER) (test 4.5 meq/L 3.5-5.1 zrzy=544) CHLORIDE (BEAKER) (test 107 meq/L 98-107 pfyl=541) CO2 (BEAKER) (test 27 meq/L 22-29 lada=191) BLOOD UREA NITROGEN 20 mg/dL 7-21 (BEAKER) (test kgkq=364) CREATININE (BEAKER) (test 1.34 mg/dL 0.57-1.25 jbir=639) GLUCOSE RANDOM (BEAKER) 104 mg/dL 70-105 (test ffav=559) CALCIUM (BEAKER) (test 9.2 mg/dL 8.4-10.2 ruvn=965) EGFR (BEAKER) (test 53 mL/min/1.73 sq m ESTIMATED GFR IS NOT rncd=5893) ACCURATE CREATININE CLEARANCE IN PREDICTING GLOMERULAR FILTRATION RATE. ESTIMATED GFR IS NOT APPLICABLE FOR DIALYSIS PATIENTS. CBC W/PLT COUNT & AUTO [id number] 06:14:00 Test Item Value Reference Range Comments WHITE BLOOD CELL COUNT (BEAKER) (test rdeq=744) 4.4 K/ L 3.5-10.5 RED BLOOD CELL COUNT (BEAKER) (test ihwi=484) 3.00 M/ L 4.63-6.08 HEMOGLOBIN (BEAKER) (test lvei=253) 8.4 GM/DL 13.7-17.5 HEMATOCRIT (BEAKER) (test ahjg=406) 26.7 % 40.1-51.0 MEAN CORPUSCULAR VOLUME (BEAKER) (test bryl=561) 89.0 fL 79.0-92.2 MEAN CORPUSCULAR HEMOGLOBIN (BEAKER) (test 28.0 pg 25.7-32.2 mfvz=999) MEAN CORPUSCULAR HEMOGLOBIN CONC (BEAKER) (test 31.5 GM/DL 32.3-36.5 qtqo=450) RED CELL DISTRIBUTION WIDTH (BEAKER) (test 14.0 % 11.6-14.4 jgqz=054) PLATELET COUNT (BEAKER) (test mdaj=269) 199 K/CU MM 150-450 MEAN PLATELET VOLUME (BEAKER) (test xhtb=423) 9.0 fL 9.4-12.4 NUCLEATED RED BLOOD CELLS (BEAKER) (test 0 /100 WBC 0-0 tpru=163) NEUTROPHILS RELATIVE PERCENT (BEAKER) (test 49 % gpyk=555) LYMPHOCYTES RELATIVE PERCENT (BEAKER) (test 41 % ipaw=683) MONOCYTES RELATIVE PERCENT (BEAKER) (test 8 % xxgj=416) EOSINOPHILS RELATIVE PERCENT (BEAKER) (test 2 % xkwd=524) BASOPHILS RELATIVE PERCENT (BEAKER) (test 0 % myvv=112) NEUTROPHILS ABSOLUTE COUNT (BEAKER) (test 2.18 K/ L 1.78-5.38 tkoe=349) LYMPHOCYTES ABSOLUTE COUNT (BEAKER) (test 1.82 K/ L 1.32-3.57 qhcj=148) MONOCYTES ABSOLUTE COUNT (BEAKER) (test 0.34 K/ L 0.30-0.82 qqjo=612) EOSINOPHILS ABSOLUTE COUNT (BEAKER) (test 0.08 K/ L 0.04-0.54 flvb=831) BASOPHILS ABSOLUTE COUNT (BEAKER) (test 0.01 K/ L 0.01-0.08 dwmc=789) IMMATURE GRANULOCYTES-RELATIVE PERCENT (BEAKER) 0 % 0-1 (test zqyj=3936) BASIC METABOLIC [id number] 07:30:00 Test Item Value Reference Range Comments SODIUM (BEAKER) (test 137 meq/L 136-145 claq=953) POTASSIUM (BEAKER) (test 3.8 meq/L 3.5-5.1 warf=510) CHLORIDE (BEAKER) (test 105 meq/L 98-107 hldx=840) CO2 (BEAKER) (test 23 meq/L 22-29 xopv=702) BLOOD UREA NITROGEN 18 mg/dL 7-21 (BEAKER) (test xhgy=490) CREATININE (BEAKER) (test 1.16 mg/dL 0.57-1.25 lcby=041) GLUCOSE RANDOM (BEAKER) 105 mg/dL 70-105 (test xbpk=637) CALCIUM (BEAKER) (test 8.8 mg/dL 8.4-10.2 lmhh=226) EGFR (BEAKER) (test 62 mL/min/1.73 sq m ESTIMATED GFR IS NOT ovfg=5427) ACCURATE CREATININE CLEARANCE IN PREDICTING GLOMERULAR FILTRATION RATE. ESTIMATED GFR IS NOT APPLICABLE FOR DIALYSIS PATIENTS. CBC W/PLT COUNT & AUTO [id number] 07:16:00 Test Item Value Reference Range Comments WHITE BLOOD CELL COUNT (BEAKER) (test snjs=542) 4.0 K/ L 3.5-10.5 RED BLOOD CELL COUNT (BEAKER) (test bsai=584) 2.96 M/ L 4.63-6.08 HEMOGLOBIN (BEAKER) (test fcap=974) 8.3 GM/DL 13.7-17.5 HEMATOCRIT (BEAKER) (test fjkq=012) 26.5 % 40.1-51.0 MEAN CORPUSCULAR VOLUME (BEAKER) (test hiaw=667) 89.5 fL 79.0-92.2 MEAN CORPUSCULAR HEMOGLOBIN (BEAKER) (test 28.0 pg 25.7-32.2 tubk=737) MEAN CORPUSCULAR HEMOGLOBIN CONC (BEAKER) (test 31.3 GM/DL 32.3-36.5 tbhi=061) RED CELL DISTRIBUTION WIDTH (BEAKER) (test 13.8 % 11.6-14.4 ptlr=730) PLATELET COUNT (BEAKER) (test synx=380) 190 K/CU MM 150-450 MEAN PLATELET VOLUME (BEAKER) (test vsms=732) 9.5 fL 9.4-12.4 NUCLEATED RED BLOOD CELLS (BEAKER) (test 0 /100 WBC 0-0 wcaf=477) NEUTROPHILS RELATIVE PERCENT (BEAKER) (test 56 % mues=177) LYMPHOCYTES RELATIVE PERCENT (BEAKER) (test 33 % qdmj=565) MONOCYTES RELATIVE PERCENT (BEAKER) (test 8 % vhcj=811) EOSINOPHILS RELATIVE PERCENT (BEAKER) (test 2 % yjwl=793) BASOPHILS RELATIVE PERCENT (BEAKER) (test 1 % kihr=118) NEUTROPHILS ABSOLUTE COUNT (BEAKER) (test 2.23 K/ L 1.78-5.38 rjwq=036) LYMPHOCYTES ABSOLUTE COUNT (BEAKER) (test 1.34 K/ L 1.32-3.57 wuvi=150) MONOCYTES ABSOLUTE COUNT (BEAKER) (test 0.32 K/ L 0.30-0.82 hzuj=148) EOSINOPHILS ABSOLUTE COUNT (BEAKER) (test 0.09 K/ L 0.04-0.54 bgms=292) BASOPHILS ABSOLUTE COUNT (BEAKER) (test 0.02 K/ L 0.01-0.08 jqlz=288) IMMATURE GRANULOCYTES-RELATIVE PERCENT (BEAKER) 1 % 0-1 (test ilbu=7306) BASIC METABOLIC [id number] 06:32:00 Test Item Value Reference Range Comments SODIUM (BEAKER) (test 139 meq/L 136-145 bxtw=355) POTASSIUM (BEAKER) (test 4.1 meq/L 3.5-5.1 eduw=062) CHLORIDE (BEAKER) (test 106 meq/L 98-107 ejfe=106) CO2 (BEAKER) (test 26 meq/L 22-29 hcts=716) BLOOD UREA NITROGEN 23 mg/dL 7-21 (BEAKER) (test squp=318) CREATININE (BEAKER) (test 1.31 mg/dL 0.57-1.25 cytk=445) GLUCOSE RANDOM (BEAKER) 124 mg/dL 70-105 (test eivx=504) CALCIUM (BEAKER) (test 8.8 mg/dL 8.4-10.2 dsxw=662) EGFR (BEAKER) (test 54 mL/min/1.73 sq m ESTIMATED GFR IS NOT vgxn=6082) ACCURATE CREATININE CLEARANCE IN PREDICTING GLOMERULAR FILTRATION RATE. ESTIMATED GFR IS NOT APPLICABLE FOR DIALYSIS PATIENTS. CBC W/PLT COUNT & AUTO [id number] 05:57:00 Test Item Value Reference Range Comments WHITE BLOOD CELL COUNT (BEAKER) (test uoth=061) 4.1 K/ L 3.5-10.5 RED BLOOD CELL COUNT (BEAKER) (test cbwp=293) 2.94 M/ L 4.63-6.08 HEMOGLOBIN (BEAKER) (test uqxt=268) 8.2 GM/DL 13.7-17.5 HEMATOCRIT (BEAKER) (test ynto=655) 26.4 % 40.1-51.0 MEAN CORPUSCULAR VOLUME (BEAKER) (test jhfq=846) 89.8 fL 79.0-92.2 MEAN CORPUSCULAR HEMOGLOBIN (BEAKER) (test 27.9 pg 25.7-32.2 kyhv=684) MEAN CORPUSCULAR HEMOGLOBIN CONC (BEAKER) (test 31.1 GM/DL 32.3-36.5 lwty=680) RED CELL DISTRIBUTION WIDTH (BEAKER) (test 14.0 % 11.6-14.4 oxba=985) PLATELET COUNT (BEAKER) (test iebj=337) 181 K/CU MM 150-450 MEAN PLATELET VOLUME (BEAKER) (test pqzj=766) 9.7 fL 9.4-12.4 NUCLEATED RED BLOOD CELLS (BEAKER) (test 0 /100 WBC 0-0 omhm=373) NEUTROPHILS RELATIVE PERCENT (BEAKER) (test 61 % yrqn=180) LYMPHOCYTES RELATIVE PERCENT (BEAKER) (test 29 % fcix=148) MONOCYTES RELATIVE PERCENT (BEAKER) (test 9 % vxoi=412) EOSINOPHILS RELATIVE PERCENT (BEAKER) (test 2 % hxtw=688) BASOPHILS RELATIVE PERCENT (BEAKER) (test 0 % lhgy=171) NEUTROPHILS ABSOLUTE COUNT (BEAKER) (test 2.48 K/ L 1.78-5.38 xigy=705) LYMPHOCYTES ABSOLUTE COUNT (BEAKER) (test 1.18 K/ L 1.32-3.57 cwgf=342) MONOCYTES ABSOLUTE COUNT (BEAKER) (test 0.35 K/ L 0.30-0.82 ufxs=987) EOSINOPHILS ABSOLUTE COUNT (BEAKER) (test 0.07 K/ L 0.04-0.54 zsxf=634) BASOPHILS ABSOLUTE COUNT (BEAKER) (test 0.01 K/ L 0.01-0.08 dbvs=423) IMMATURE GRANULOCYTES-RELATIVE PERCENT (BEAKER) 0 % 0-1 (test mxxz=1169) POCT-GLUCOSE [id number] 12:04:00 Test Item Value Reference Range Comments POC-GLUCOSE METER (BEAKER) 110 mg/dL 70-110 TESTED AT [address] (test djrn=6563) [place] [address] POCT-GLUCOSE [id number] 09:07:00 Test Item Value Reference Range Comments POC-GLUCOSE METER (BEAKER) 104 mg/dL 70-110 TESTED AT [address] (test oxjo=4543) [place] [id number] BASIC METABOLIC [id number] 06:10:00 Test Item Value Reference Range Comments SODIUM (BEAKER) (test 136 meq/L 136-145 esls=559) POTASSIUM (BEAKER) (test 4.5 meq/L 3.5-5.1 iojd=035) CHLORIDE (BEAKER) (test 105 meq/L 98-107 xved=177) CO2 (BEAKER) (test 23 meq/L 22-29 kbal=001) BLOOD UREA NITROGEN 27 mg/dL 7-21 (BEAKER) (test yxab=942) CREATININE (BEAKER) (test 1.38 mg/dL 0.57-1.25 lglg=314) GLUCOSE RANDOM (BEAKER) 111 mg/dL 70-105 (test gocn=430) CALCIUM (BEAKER) (test 8.7 mg/dL 8.4-10.2 vsjf=941) EGFR (BEAKER) (test 51 mL/min/1.73 sq m ESTIMATED GFR IS NOT adsk=3277) ACCURATE CREATININE CLEARANCE IN PREDICTING GLOMERULAR FILTRATION RATE. ESTIMATED GFR IS NOT APPLICABLE FOR DIALYSIS PATIENTS. CBC W/PLT COUNT & AUTO [id number] 05:22:00 Test Item Value Reference Range Comments WHITE BLOOD CELL COUNT (BEAKER) (test hqcc=854) 5.0 K/ L 3.5-10.5 RED BLOOD CELL COUNT (BEAKER) (test xvmx=572) 2.97 M/ L 4.63-6.08 HEMOGLOBIN (BEAKER) (test jvlb=840) 8.4 GM/DL 13.7-17.5 HEMATOCRIT (BEAKER) (test owhv=229) 26.6 % 40.1-51.0 MEAN CORPUSCULAR VOLUME (BEAKER) (test hfyd=330) 89.6 fL 79.0-92.2 MEAN CORPUSCULAR HEMOGLOBIN (BEAKER) (test 28.3 pg 25.7-32.2 bxne=707) MEAN CORPUSCULAR HEMOGLOBIN CONC (BEAKER) (test 31.6 GM/DL 32.3-36.5 gggp=150) RED CELL DISTRIBUTION WIDTH (BEAKER) (test 13.8 % 11.6-14.4 drxg=513) PLATELET COUNT (BEAKER) (test iohq=581) 185 K/CU MM 150-450 MEAN PLATELET VOLUME (BEAKER) (test umil=969) 9.1 fL 9.4-12.4 NUCLEATED RED BLOOD CELLS (BEAKER) (test 0 /100 WBC 0-0 nqoe=869) NEUTROPHILS RELATIVE PERCENT (BEAKER) (test 62 % awfr=659) LYMPHOCYTES RELATIVE PERCENT (BEAKER) (test 28 % trcb=029) MONOCYTES RELATIVE PERCENT (BEAKER) (test 9 % qmwy=439) EOSINOPHILS RELATIVE PERCENT (BEAKER) (test 0 % kqbt=088) BASOPHILS RELATIVE PERCENT (BEAKER) (test 0 % xika=541) NEUTROPHILS ABSOLUTE COUNT (BEAKER) (test 3.14 K/ L 1.78-5.38 kyls=102) LYMPHOCYTES ABSOLUTE COUNT (BEAKER) (test 1.41 K/ L 1.32-3.57 kkmv=539) MONOCYTES ABSOLUTE COUNT (BEAKER) (test 0.46 K/ L 0.30-0.82 zbaf=471) EOSINOPHILS ABSOLUTE COUNT (BEAKER) (test 0.00 K/ L 0.04-0.54 cjgm=577) BASOPHILS ABSOLUTE COUNT (BEAKER) (test 0.01 K/ L 0.01-0.08 bowx=308) IMMATURE GRANULOCYTES-RELATIVE PERCENT (BEAKER) 0 % 0-1 (test bnsl=4566) BASIC METABOLIC [id number] 21:59:00 Test Item Value Reference Range Comments SODIUM (BEAKER) (test 136 meq/L 136-145 cmtx=152) POTASSIUM (BEAKER) (test 4.6 meq/L 3.5-5.1 dpmn=422) CHLORIDE (BEAKER) (test 104 meq/L 98-107 xtvl=152) CO2 (BEAKER) (test 22 meq/L 22-29 ndkv=912) BLOOD UREA NITROGEN 28 mg/dL 7-21 (BEAKER) (test wrlh=053) CREATININE (BEAKER) (test 1.50 mg/dL 0.57-1.25 iqgj=865) GLUCOSE RANDOM (BEAKER) 154 mg/dL 70-105 (test xzsk=983) CALCIUM (BEAKER) (test 8.6 mg/dL 8.4-10.2 nzmr=734) EGFR (BEAKER) (test 46 mL/min/1.73 sq m ESTIMATED GFR IS NOT xinu=5913) ACCURATE CREATININE CLEARANCE IN PREDICTING GLOMERULAR FILTRATION RATE. ESTIMATED GFR IS NOT APPLICABLE FOR DIALYSIS PATIENTS. HEMOGLOBIN AND [id number] 21:21:00 Test Item Value Reference Range Comments HEMOGLOBIN (BEAKER) (test yytq=934) 8.8 GM/DL 13.7-17.5 HEMATOCRIT (BEAKER) (test yvhg=635) 28.4 % 40.1-51.0 POCT-GLUCOSE [id number] 20:59:00 Test Item Value Reference Range Comments POC-GLUCOSE METER (BEAKER) 161 mg/dL 70-110 TESTED AT [address] (test rwcv=1055) [facility] [address] POCT-GLUCOSE [id number] 12:51:00 Test Item Value Reference Range Comments POC-GLUCOSE METER (BEAKER) 131 mg/dL 70-110 TESTED AT [address] (test pwtw=6483) [facility] [address] POCT-GLUCOSE [id number] 14:19:00 Test Item Value Reference Range Comments POC-GLUCOSE METER (BEAKER) 138 mg/dL 70-110 TESTED AT [address] (test iswv=8416) [facility] [address] POCT-GLUCOSE [id number] 08:57:00 Test Item Value Reference Range Comments POC-GLUCOSE METER (BEAKER) 132 mg/dL 70-110 TESTED AT [address] (test eyhx=1728) [facility] [address] POCT-GLUCOSE [id number] 21:03:00 Test Item Value Reference Range Comments POC-GLUCOSE METER (BEAKER) 165 mg/dL 70-110 TESTED AT [address] (test fikv=6286) [place] [id number] POCT-GLUCOSE [id number] 18:52:00 Test Item Value Reference Range Comments POC-GLUCOSE METER (BEAKER) 127 mg/dL 70-110 TESTED AT [address] (test zsci=2317) [place] [id number] POCT-GLUCOSE [id number] 13:22:00 Test Item Value Reference Range Comments POC-GLUCOSE METER (BEAKER) 155 mg/dL 70-110 TESTED AT [address] (test qqhy=7095) [place] [id number] POCT-GLUCOSE [id number] 08:52:00 Test Item Value Reference Range Comments POC-GLUCOSE METER (BEAKER) 150 mg/dL 70-110 TESTED AT [address] (test ewit=9096) [place] [id number] POCT-GLUCOSE [id number] 22:36:00 Test Item Value Reference Range Comments POC-GLUCOSE METER (BEAKER) 149 mg/dL 70-110 TESTED AT [address] (test lsfb=0450) [place] [address] POCT-GLUCOSE [id number] 13:20:00 Test Item Value Reference Range Comments POC-GLUCOSE METER (BEAKER) 169 mg/dL 70-110 TESTED AT [address] (test ozeo=2754) [facility] [address] POCT-GLUCOSE [id number] 09:00:00 Test Item Value Reference Range Comments POC-GLUCOSE METER (BEAKER) 140 mg/dL 70-110 TESTED AT [address] (test nigb=2143) [place] [id number] CBC W/PLT COUNT & AUTO [id number] 06:23:00 Test Item Value Reference Range Comments WHITE BLOOD CELL COUNT (BEAKER) (test dxna=588) 4.5 K/ L 3.5-10.5 RED BLOOD CELL COUNT (BEAKER) (test duxk=593) 3.14 M/ L 4.63-6.08 HEMOGLOBIN (BEAKER) (test ksbb=077) 9.0 GM/DL 13.7-17.5 HEMATOCRIT (BEAKER) (test jqup=857) 28.1 % 40.1-51.0 MEAN CORPUSCULAR VOLUME (BEAKER) (test uisk=998) 89.5 fL 79.0-92.2 MEAN CORPUSCULAR HEMOGLOBIN (BEAKER) (test 28.7 pg 25.7-32.2 eyvv=894) MEAN CORPUSCULAR HEMOGLOBIN CONC (BEAKER) (test 32.0 GM/DL 32.3-36.5 eocj=009) RED CELL DISTRIBUTION WIDTH (BEAKER) (test 14.6 % 11.6-14.4 froo=098) PLATELET COUNT (BEAKER) (test icoi=043) 115 K/CU MM 150-450 MEAN PLATELET VOLUME (BEAKER) (test kufo=825) 9.4 fL 9.4-12.4 NUCLEATED RED BLOOD CELLS (BEAKER) (test 0 /100 WBC 0-0 qgym=612) NEUTROPHILS RELATIVE PERCENT (BEAKER) (test 52 % ikkh=262) LYMPHOCYTES RELATIVE PERCENT (BEAKER) (test 32 % jdvq=649) MONOCYTES RELATIVE PERCENT (BEAKER) (test 12 % exjg=058) EOSINOPHILS RELATIVE PERCENT (BEAKER) (test 3 % hgik=944) BASOPHILS RELATIVE PERCENT (BEAKER) (test 0 % sayr=994) NEUTROPHILS ABSOLUTE COUNT (BEAKER) (test 2.35 K/ L 1.78-5.38 jzca=784) LYMPHOCYTES ABSOLUTE COUNT (BEAKER) (test 1.42 K/ L 1.32-3.57 icyg=746) MONOCYTES ABSOLUTE COUNT (BEAKER) (test 0.56 K/ L 0.30-0.82 xnaq=691) EOSINOPHILS ABSOLUTE COUNT (BEAKER) (test 0.14 K/ L 0.04-0.54 gxqa=592) BASOPHILS ABSOLUTE COUNT (BEAKER) (test 0.01 K/ L 0.01-0.08 aoaq=729) IMMATURE GRANULOCYTES-RELATIVE PERCENT (BEAKER) 0 % 0-1 (test hmft=5284) ANG, ARTERIAL EMBOLIZATION FOR [id number] 15:04:00Reason for exam:-> right iliac wing RCC [...] the patient's medical record by the nurse. Veterinary Hospital Attendant: Austin Frost MD. Quality Assurance Assistant: None. Approach: Left common femoral artery Estimated [...] aorta. Theneedle was exchanged for a 4 Latvian micropuncture sheath. The micropuncture sheath was exchanged over a 0.035 Bentson wire for a 5 Latvian x 10 cm vascular sheath. Using a 5 Latvian contra catheter and 0.035 angled Glidewire, the right common iliac artery was accessed via an up and over technique. A 4 Latvian glide catheter was advanced into the left common iliac artery and a DSA run was performed. Using a 2.8 Latvian microcatheter and 0.016 inch microwire, the circumflex [...] The arteriotomy was closed using a 5 Latvian Myxn closure device. A sterile dressing was [...] MDReport Verified Date/Time: 08/15/2018 15:04:06 Reading Location: [place] [address] Angio Body Reading Room POCT- GLUCOSE [id number] 11:13:00 Test Item Value Reference Range Comments POC-GLUCOSE METER (BEAKER) 136 mg/dL 70-110 TESTED AT [address] (test pxdc=2057) [facility] [address] BASIC METABOLIC [id number] 04:54:00 Test Item Value Reference Range Comments SODIUM (BEAKER) (test 135 meq/L 136-145 yywc=708) POTASSIUM (BEAKER) (test 4.1 meq/L 3.5-5.1 znmk=123) CHLORIDE (BEAKER) (test 103 meq/L 98-107 lzsi=766) CO2 (BEAKER) (test 26 meq/L 22-29 onxn=810) BLOOD UREA NITROGEN 17 mg/dL 7-21 (BEAKER) (test jmwc=416) CREATININE (BEAKER) (test 0.92 mg/dL 0.57-1.25 ombv=890) GLUCOSE RANDOM (BEAKER) 134 mg/dL 70-105 (test ibqy=351) CALCIUM (BEAKER) (test 8.6 mg/dL 8.4-10.2 thuu=023) EGFR (BEAKER) (test 81 mL/min/1.73 sq m ESTIMATED GFR IS NOT wgkn=5398) ACCURATE CREATININE CLEARANCE IN PREDICTING GLOMERULAR FILTRATION RATE. ESTIMATED GFR IS NOT APPLICABLE FOR DIALYSIS PATIENTS. [id number] 04:52:00 Test Item Value Reference Range Comments PHOSPHORUS (BEAKER) (test myvo=483) 2.7 mg/dL 2.3-4.7 [id number] 04:52:00 Test Item Value Reference Range Comments MAGNESIUM (BEAKER) (test zacr=957) 1.6 mg/dL 1.6-2.6 HEPATIC FUNCTION [id number] 04:52:00 Test Item Value Reference Range Comments TOTAL PROTEIN (BEAKER) (test jsyj=505) 6.4 gm/dL 6.0-8.3 ALBUMIN (BEAKER) (test llrb=7510) 3.4 g/dL 3.5-5.0 BILIRUBIN TOTAL (BEAKER) (test tfun=083) 0.5 mg/dL 0.2-1.2 BILIRUBIN DIRECT (BEAKER) (test sbrj=076) 0.3 mg/dL 0.1-0.5 ALKALINE PHOSPHATASE (BEAKER) (test gkuf=709) 76 U/L 40-150 AST (SGOT) (BEAKER) (test mkpu=475) 19 U/L 5-34 ALT (SGPT) (BEAKER) (test kchc=844) 6 U/L 6-55 CBC W/PLT COUNT & AUTO [id number] 04:32:00 Test Item Value Reference Range Comments WHITE BLOOD CELL COUNT (BEAKER) (test zxqu=513) 4.3 K/ L 3.5-10.5 RED BLOOD CELL COUNT (BEAKER) (test mxll=887) 3.02 M/ L 4.63-6.08 HEMOGLOBIN (BEAKER) (test zurx=336) 8.5 GM/DL 13.7-17.5 HEMATOCRIT (BEAKER) (test efti=984) 27.2 % 40.1-51.0 MEAN CORPUSCULAR VOLUME (BEAKER) (test kdbl=032) 90.1 fL 79.0-92.2 MEAN CORPUSCULAR HEMOGLOBIN (BEAKER) (test 28.1 pg 25.7-32.2 bpwd=678) MEAN CORPUSCULAR HEMOGLOBIN CONC (BEAKER) (test 31.3 GM/DL 32.3-36.5 iuwy=648) RED CELL DISTRIBUTION WIDTH (BEAKER) (test 14.9 % 11.6-14.4 ybls=481) PLATELET COUNT (BEAKER) (test cspp=399) 105 K/CU MM 150-450 MEAN PLATELET VOLUME (BEAKER) (test wfer=939) 9.4 fL 9.4-12.4 NUCLEATED RED BLOOD CELLS (BEAKER) (test 0 /100 WBC 0-0 gieh=793) NEUTROPHILS RELATIVE PERCENT (BEAKER) (test 56 % gioq=641) LYMPHOCYTES RELATIVE PERCENT (BEAKER) (test 31 % mptm=199) MONOCYTES RELATIVE PERCENT (BEAKER) (test 11 % iyhy=208) EOSINOPHILS RELATIVE PERCENT (BEAKER) (test 2 % fiqz=271) BASOPHILS RELATIVE PERCENT (BEAKER) (test 0 % jxqu=222) NEUTROPHILS ABSOLUTE COUNT (BEAKER) (test 2.44 K/ L 1.78-5.38 ckfq=147) LYMPHOCYTES ABSOLUTE COUNT (BEAKER) (test 1.33 K/ L 1.32-3.57 dsaj=081) MONOCYTES ABSOLUTE COUNT (BEAKER) (test 0.46 K/ L 0.30-0.82 ijvb=329) EOSINOPHILS ABSOLUTE COUNT (BEAKER) (test 0.08 K/ L 0.04-0.54 tmrg=308) BASOPHILS ABSOLUTE COUNT (BEAKER) (test 0.01 K/ L 0.01-0.08 ectd=647) IMMATURE GRANULOCYTES-RELATIVE PERCENT (BEAKER) 1 % 0-1 (test sbtc=0089) POCT-GLUCOSE [id number] 21:14:00 Test Item Value Reference Range Comments POC-GLUCOSE METER (BEAKER) 170 mg/dL 70-110 TESTED AT [facility] [address] (test slcu=3129) [facility] [address] POCT-GLUCOSE [id number] 13:18:00 Test Item Value Reference Range Comments POC-GLUCOSE METER (BEAKER) 141 mg/dL 70-110 TESTED AT [facility] [address] (test uvrp=6028) [facility] [address] POCT-GLUCOSE [id number] 09:24:00 Test Item Value Reference Range Comments POC-GLUCOSE METER (BEAKER) 132 mg/dL 70-110 TESTED AT [facility] [address] (test htrp=0393) [facility] [address] CBC W/PLT COUNT & AUTO [id number] 06:37:00 Test Item Value Reference Range Comments WHITE BLOOD CELL COUNT (BEAKER) (test vqbh=607) 4.8 K/ L 3.5-10.5 RED BLOOD CELL COUNT (BEAKER) (test dpxe=146) 3.25 M/ L 4.63-6.08 HEMOGLOBIN (BEAKER) (test ldag=087) 9.5 GM/DL 13.7-17.5 HEMATOCRIT (BEAKER) (test jtjm=863) 29.2 % 40.1-51.0 MEAN CORPUSCULAR VOLUME (BEAKER) (test zfxi=239) 89.8 fL 79.0-92.2 MEAN CORPUSCULAR HEMOGLOBIN (BEAKER) (test 29.2 pg 25.7-32.2 lpva=736) MEAN CORPUSCULAR HEMOGLOBIN CONC (BEAKER) (test 32.5 GM/DL 32.3-36.5 fdbe=248) RED CELL DISTRIBUTION WIDTH (BEAKER) (test 14.6 % 11.6-14.4 xbck=169) PLATELET COUNT (BEAKER) (test qspe=352) 128 K/CU MM 150-450 MEAN PLATELET VOLUME (BEAKER) (test mdfh=433) 9.5 fL 9.4-12.4 NUCLEATED RED BLOOD CELLS (BEAKER) (test 0 /100 WBC 0-0 mzoj=575) NEUTROPHILS RELATIVE PERCENT (BEAKER) (test 64 % bicc=167) LYMPHOCYTES RELATIVE PERCENT (BEAKER) (test 25 % zbvl=444) MONOCYTES RELATIVE PERCENT (BEAKER) (test 10 % nnsp=481) EOSINOPHILS RELATIVE PERCENT (BEAKER) (test 0 % ryaj=786) BASOPHILS RELATIVE PERCENT (BEAKER) (test 0 % tuwx=559) NEUTROPHILS ABSOLUTE COUNT (BEAKER) (test 3.06 K/ L 1.78-5.38 psgh=369) LYMPHOCYTES ABSOLUTE COUNT (BEAKER) (test 1.21 K/ L 1.32-3.57 ixuq=474) MONOCYTES ABSOLUTE COUNT (BEAKER) (test 0.48 K/ L 0.30-0.82 vgto=422) EOSINOPHILS ABSOLUTE COUNT (BEAKER) (test 0.01 K/ L 0.04-0.54 qdom=104) BASOPHILS ABSOLUTE COUNT (BEAKER) (test 0.00 K/ L 0.01-0.08 iqup=909) IMMATURE GRANULOCYTES-RELATIVE PERCENT (BEAKER) 0 % 0-1 (test ybhy=8893) [id number] 06:13:00 Test Item Value Reference Range Comments PHOSPHORUS (BEAKER) (test thjm=334) 4.3 mg/dL 2.3-4.7 [id number] 06:13:00 Test Item Value Reference Range Comments MAGNESIUM (BEAKER) (test rfim=198) 1.7 mg/dL 1.6-2.6 BASIC METABOLIC [id number] 06:13:00 Test Item Value Reference Range Comments SODIUM (BEAKER) (test 135 meq/L 136-145 wsuk=991) POTASSIUM (BEAKER) (test 4.6 meq/L 3.5-5.1 nyon=683) CHLORIDE (BEAKER) (test 103 meq/L 98-107 bkmb=673) CO2 (BEAKER) (test 24 meq/L 22-29 ljjm=452) BLOOD UREA NITROGEN 19 mg/dL 7-21 (BEAKER) (test wzlp=836) CREATININE (BEAKER) (test 0.96 mg/dL 0.57-1.25 fkql=692) GLUCOSE RANDOM (BEAKER) 118 mg/dL 70-105 (test oytl=167) CALCIUM (BEAKER) (test 8.6 mg/dL 8.4-10.2 qmrw=193) EGFR (BEAKER) (test 77 mL/min/1.73 sq m ESTIMATED GFR IS NOT bbnp=3541) ACCURATE CREATININE CLEARANCE IN PREDICTING GLOMERULAR FILTRATION RATE. ESTIMATED GFR IS NOT APPLICABLE FOR DIALYSIS PATIENTS. HEPATIC FUNCTION [id number] 06:13:00 Test Item Value Reference Range Comments TOTAL PROTEIN (BEAKER) (test uuki=074) 6.4 gm/dL 6.0-8.3 ALBUMIN (BEAKER) (test ixmw=6520) 3.5 g/dL 3.5-5.0 BILIRUBIN TOTAL (BEAKER) (test eeft=104) 0.5 mg/dL 0.2-1.2 BILIRUBIN DIRECT (BEAKER) (test qkik=940) 0.3 mg/dL 0.1-0.5 ALKALINE PHOSPHATASE (BEAKER) (test lbtb=077) 70 U/L 40-150 AST (SGOT) (BEAKER) (test rgmu=853) 34 U/L 5-34 ALT (SGPT) (BEAKER) (test bxmm=280) 7 U/L 6-55 POCT-GLUCOSE [id number] 22:31:00 Test Item Value Reference Range Comments POC-GLUCOSE METER (BEAKER) 157 mg/dL 70-110 TESTED AT [address] (test ubeo=4432) [place] [address] RAD, PELVIS, 1 OR 2 [id number] 20:11:00Reason for exam:->postop right pelvis fixation and [...] into the high density area.. Signed: Rika [place] Verified Date/Time: 08/13/201820: 11:08 Reading Location: [facility] C0[facility] Consult Reading Room POCT-GLUCOSE [id number] 18:15:00 Test Item Value Reference Range Comments POC-GLUCOSE METER (BEAKER) 146 mg/dL 70-110 TESTED AT [address] (test uvgt=0597) [place] [address] HEMOGLOBIN AND [id number] 18:05:00 Test Item Value Reference Range Comments HEMOGLOBIN (BEAKER) (test ycgk=595) 10.3 GM/DL 13.7-17.5 HEMATOCRIT (BEAKER) (test zrtu=497) 32.5 % 40.1-51.0 FL, PASSENGER VESSEL CHEF IN OR/30 MINUTE [id number] 17:33:00Reason for exam:-> painFINAL REPORT Operative right [...] MDReport Verified Date/Time: 2018 17:33:20 Reading Location: [facility] [id number] Consult Reading Room PROTHROMBIN [id number] 03:57:00 Test Item Value Reference Range Comments PROTIME (BEAKER) (test ylvi=235) 13.7 seconds 11.7-14.7 INR (BEAKER) (test qrhh=817) 1.0 <=5.9 RECOMMENDED COUMADIN/WARFARIN INR THERAPY RANGESSTANDARD DOSE: 2.0 - 3.0 Includes: PROPHYLAXIS forvenous thrombosis, systemic embolization; TREATMENT for venous thrombosis and/or pulmonary embolus.HIGH RISK: Target INR is 2.5-3.5 for patients with mechanical heart valves.[id number] 03:55:00 Test Item Value Reference Range Comments PHOSPHORUS (BEAKER) (test uqbd=769) 3.2 mg/dL 2.3-4.7 [id number] 03:55:00 Test Item Value Reference Range Comments MAGNESIUM (BEAKER) (test fisc=243) 1.4 mg/dL 1.6-2.6 BASIC METABOLIC [id number] 03:55:00 Test Item Value Reference Range Comments SODIUM (BEAKER) (test 138 meq/L 136-145 thok=677) POTASSIUM (BEAKER) (test 3.7 meq/L 3.5-5.1 fhmw=558) CHLORIDE (BEAKER) (test 104 meq/L 98-107 svrf=750) CO2 (BEAKER) (test 26 meq/L 22-29 dwev=758) BLOOD UREA NITROGEN 16 mg/dL 7-21 (BEAKER) (test cmmf=339) CREATININE (BEAKER) (test 0.84 mg/dL 0.57-1.25 cjte=325) GLUCOSE RANDOM (BEAKER) 123 mg/dL 70-105 (test wnxu=740) CALCIUM (BEAKER) (test 9.7 mg/dL 8.4-10.2 wapt=097) EGFR (BEAKER) (test 90 mL/min/1.73 sq m ESTIMATED GFR IS NOT bdel=1369) ACCURATE CREATININE CLEARANCE IN PREDICTING GLOMERULAR FILTRATION RATE. ESTIMATED GFR IS NOT APPLICABLE FOR DIALYSIS PATIENTS. LIPID [id number] 03:55:00 Test Item Value Reference Range Comments TRIGLYCERIDES (BEAKER) (test zkma=915) 133 mg/dL CHOLESTEROL (BEAKER) (test rykl=308) 108 mg/dL HDL CHOLESTEROL (BEAKER) (test xbgu=597) 25 mg/dL LDL CHOLESTEROL CALCULATED (BEAKER) (test 56 mg/dL szlo=885) Triglyceride Reference Range: Low Risk <150 Borderline 150- 199 High Risk 200-499 Very High Risk >=500Cholesterol Reference Range: Low Risk <200 Borderline 200-239 High Risk > 240HDL Cholesterol Reference Range: Low Risk >=60 High Risk <40LDL Cholesterol Reference Range: Optimal <100 Near Optimal 100-129 Borderline 130-159 High 160-189 Very High >=190HEPATIC FUNCTION [id number] 03:55:00 Test Item Value Reference Range Comments TOTAL PROTEIN (BEAKER) (test lrhg=329) 7.2 gm/dL 6.0-8.3 ALBUMIN (BEAKER) (test ksyu=8453) 3.8 g/dL 3.5-5.0 BILIRUBIN TOTAL (BEAKER) (test pxlx=263) 0.4 mg/dL 0.2-1.2 BILIRUBIN DIRECT (BEAKER) (test usxs=905) 0.2 mg/dL 0.1-0.5 ALKALINE PHOSPHATASE (BEAKER) (test ftzo=629) 68 U/L 40-150 AST (SGOT) (BEAKER) (test wlaf=995) 19 U/L 5-34 ALT (SGPT) (BEAKER) (test bppt=931) 9 U/L 6-55 CBC W/PLT COUNT & AUTO [id number] 03:42:00 Test Item Value Reference Range Comments WHITE BLOOD CELL COUNT (BEAKER) (test evxx=868) 3.9 K/ L 3.5-10.5 RED BLOOD CELL COUNT (BEAKER) (test tpmt=699) 3.40 M/ L 4.63-6.08 HEMOGLOBIN (BEAKER) (test gezl=845) 9.5 GM/DL 13.7-17.5 HEMATOCRIT (BEAKER) (test gmvl=182) 30.0 % 40.1-51.0 MEAN CORPUSCULAR VOLUME (BEAKER) (test gana=145) 88.2 fL 79.0-92.2 MEAN CORPUSCULAR HEMOGLOBIN (BEAKER) (test 27.9 pg 25.7-32.2 vcpk=528) MEAN CORPUSCULAR HEMOGLOBIN CONC (BEAKER) (test 31.7 GM/DL 32.3-36.5 plvo=490) RED CELL DISTRIBUTION WIDTH (BEAKER) (test 14.9 % 11.6-14.4 snen=268) PLATELET COUNT (BEAKER) (test rsyi=948) 133 K/CU MM 150-450 MEAN PLATELET VOLUME (BEAKER) (test oore=179) 9.4 fL 9.4-12.4 NUCLEATED RED BLOOD CELLS (BEAKER) (test 0 /100 WBC 0-0 lolx=209) NEUTROPHILS RELATIVE PERCENT (BEAKER) (test 50 % bxdo=819) LYMPHOCYTES RELATIVE PERCENT (BEAKER) (test 38 % adyx=920) MONOCYTES RELATIVE PERCENT (BEAKER) (test 9 % etcn=571) EOSINOPHILS RELATIVE PERCENT (BEAKER) (test 3 % ubvi=342) BASOPHILS RELATIVE PERCENT (BEAKER) (test 0 % jxdh=427) NEUTROPHILS ABSOLUTE COUNT (BEAKER) (test 1.92 K/ L 1.78-5.38 lsxd=909) LYMPHOCYTES ABSOLUTE COUNT (BEAKER) (test 1.46 K/ L 1.32-3.57 wrbp=811) MONOCYTES ABSOLUTE COUNT (BEAKER) (test 0.35 K/ L 0.30-0.82 fxkw=561) EOSINOPHILS ABSOLUTE COUNT (BEAKER) (test 0.10 K/ L 0.04-0.54 joix=427) BASOPHILS ABSOLUTE COUNT (BEAKER) (test 0.01 K/ L 0.01-0.08 cmve=999) IMMATURE GRANULOCYTES-RELATIVE PERCENT (BEAKER) 0 % 0-1 (test wfby=3429) BASIC METABOLIC [id number] 11:50:00 Test Item Value Reference Range Comments SODIUM (BEAKER) (test 138 meq/L 136-145 dwol=955) POTASSIUM (BEAKER) (test 4.2 meq/L 3.5-5.1 kxqu=941) CHLORIDE (BEAKER) (test 106 meq/L 98-107 zgho=245) CO2 (BEAKER) (test 24 meq/L 22-29 vwte=603) BLOOD UREA NITROGEN 20 mg/dL 7-21 (BEAKER) (test hgvf=868) CREATININE (BEAKER) (test 1.03 mg/dL 0.57-1.25 uerm=869) GLUCOSE RANDOM (BEAKER) 125 mg/dL 70-105 (test ibly=765) CALCIUM (BEAKER) (test 9.6 mg/dL 8.4-10.2 malh=108) EGFR (BEAKER) (test 71 mL/min/1.73 sq m ESTIMATED GFR IS NOT bkbb=2705) ACCURATE CREATININE CLEARANCE IN PREDICTING GLOMERULAR FILTRATION RATE. ESTIMATED GFR IS NOT APPLICABLE FOR DIALYSIS PATIENTS. [id number] 11:32:00 Test Item Value Reference Range Comments PARTIAL THROMBOPLASTIN TIME (BEAKER) (test 30.9 seconds 22.5-36.0 txch=997) PROTHROMBIN TIME/[id number] 11:31:00 Test Item Value Reference Range Comments PROTIME (BEAKER) (test xltp=633) 13.6 seconds 11.7-14.7 INR (BEAKER) (test riqq=096) 1.0 <=5.9 RECOMMENDED COUMADIN/WARFARIN INR THERAPY RANGESSTANDARD DOSE: 2.0 - 3.0 Includes: PROPHYLAXIS forvenous thrombosis, systemic embolization; TREATMENT for venous thrombosis and/or pulmonary embolus.HIGH RISK: Target INR is 2.5-3.5 for patients with mechanical heart valves.CBC W/PLT COUNT & AUTO [id number] 11:22:00 Test Item Value Reference Range Comments WHITE BLOOD CELL COUNT (BEAKER) (test fiem=628) 3.8 K/ L 3.5-10.5 RED BLOOD CELL COUNT (BEAKER) (test wwwz=722) 3.54 M/ L 4.63-6.08 HEMOGLOBIN (BEAKER) (test oeke=727) 9.7 GM/DL 13.7-17.5 HEMATOCRIT (BEAKER) (test nwej=255) 31.9 % 40.1-51.0 MEAN CORPUSCULAR VOLUME (BEAKER) (test xzxt=356) 90.1 fL 79.0-92.2 MEAN CORPUSCULAR HEMOGLOBIN (BEAKER) (test 27.4 pg 25.7-32.2 akim=451) MEAN CORPUSCULAR HEMOGLOBIN CONC (BEAKER) (test 30.4 GM/DL 32.3-36.5 ogfz=091) RED CELL DISTRIBUTION WIDTH (BEAKER) (test 14.9 % 11.6-14.4 mgur=402) PLATELET COUNT (BEAKER) (test gxxr=738) 131 K/CU MM 150-450 MEAN PLATELET VOLUME (BEAKER) (test iesg=515) 9.2 fL 9.4-12.4 NUCLEATED RED BLOOD CELLS (BEAKER) (test 0 /100 WBC 0-0 mbnc=192) NEUTROPHILS RELATIVE PERCENT (BEAKER) (test 51 % ieun=216) LYMPHOCYTES RELATIVE PERCENT (BEAKER) (test 36 % zcjz=449) MONOCYTES RELATIVE PERCENT (BEAKER) (test 10 % jmxb=235) EOSINOPHILS RELATIVE PERCENT (BEAKER) (test 3 % oisn=857) BASOPHILS RELATIVE PERCENT (BEAKER) (test 0 % qosk=700) NEUTROPHILS ABSOLUTE COUNT (BEAKER) (test 1.94 K/ L 1.78-5.38 ymku=748) LYMPHOCYTES ABSOLUTE COUNT (BEAKER) (test 1.35 K/ L 1.32-3.57 spfx=856) MONOCYTES ABSOLUTE COUNT (BEAKER) (test 0.37 K/ L 0.30-0.82 atwh=233) EOSINOPHILS ABSOLUTE COUNT (BEAKER) (test 0.10 K/ L 0.04-0.54 nzve=297) BASOPHILS ABSOLUTE COUNT (BEAKER) (test 0.01 K/ L 0.01-0.08 jzcm=013) IMMATURE GRANULOCYTES-RELATIVE PERCENT (BEAKER) 0 % 0-1 (test xesn=6214) TISSUE [id number] 16:07:00Surgical Pathology Report Case: [id number] Authorizing Provider: Antonio Weir MD Collected: 07/28/2018 1122 Ordering Location: [address] Received: 07/28/2018 6377 Service Pathologist: Franki Ku MD Specimen: Kidney, Left KIDNEY, LEFT, BIOPSY OF MASS- 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 Some parts of the tumor have prominent eosinophiliccytoplasm. INTRADEPARTMENTAL CONSULTATION: - Tono Lundy MD has seen the case and agrees withthe diagnosis.[id number] renal mass 7.2 x 5.1 x 6.0 cmLeft [place] renal biopsyThe specimen is received in a formalin-filled container labeled with the patient's information and labeled "left [place] renal biopsy" and consists of multiple couch-red core biopsies ranging from 0.1 to 1.5 cm, submitted entirely in A1. CG/ew Performed.The interpretation of this case included the use of immunohistochemistry orspecial stains. Immunohistochemistry technical testing was performed at [facility], Pathology Laboratory where it was developed and [...] laboratory testing.RAD, KNEE, 1 OR 2 VIEWS, [id number] 12:35:00Reason for exam:->possible cancer seen on bone [...] in the left knee. Signed: Sherif Garza MDReport Verified Date/Time: 05/2018 12:35:32 Reading Location: [facility] B1 [id number] Consult Reading Room POCT-GLUCOSE [id number] 13:11:00 Test Item Value Reference Range Comments POC-GLUCOSE METER (BEAKER) 118 mg/dL 70-110 TESTED AT [facility] [address] (test fntz=0497) [facility] [address] U/S, BIOPSY, RENAL (KIDNEY)2018-07-28 11:52:00Reason for exam:->L [...] renal mass without complication. Signed: Tommy Chen Verified Date/Time: 07/28/2018 11:52:52 Reading Location: [facility] B1 [id number] Ultrasound Reading Room POCT-GLUCOSE [id number] 08:38:00 Test Item Value Reference Range Comments POC-GLUCOSE METER (BEAKER) 128 mg/dL 70-110 TESTED AT [facility] [address] (test uopn=4729) [facility] [address] BASIC METABOLIC [id number] 06:31:00 Test Item Value Reference Range Comments SODIUM (BEAKER) (test 137 meq/L 136-145 aoiu=976) POTASSIUM (BEAKER) (test 4.1 meq/L 3.5-5.1 gwmp=314) CHLORIDE (BEAKER) (test 104 meq/L 98-107 dtqy=323) CO2 (BEAKER) (test 25 meq/L 22-29 eyif=066) BLOOD UREA NITROGEN 26 mg/dL 7-21 (BEAKER) (test vudh=421) CREATININE (BEAKER) (test 0.92 mg/dL 0.57-1.25 duvm=042) GLUCOSE RANDOM (BEAKER) 138 mg/dL 70-105 (test tulf=847) CALCIUM (BEAKER) (test 9.9 mg/dL 8.4-10.2 uexi=702) EGFR (BEAKER) (test 81 mL/min/1.73 sq m ESTIMATED GFR IS NOT umpc=2441) ACCURATE CREATININE CLEARANCE IN PREDICTING GLOMERULAR FILTRATION RATE. ESTIMATED GFR IS NOT APPLICABLE FOR DIALYSIS PATIENTS. [id number] 05:25:00 Test Item Value Reference Range Comments PROTIME (BEAKER) (test ybts=854) 13.2 seconds 11.7-14.7 INR (BEAKER) (test fupk=605) 1.0 <=5.9 PARTIAL THROMBOPLASTIN TIME (BEAKER) (test 33.2 seconds 22.5-36.0 jxzy=431) RECOMMENDED COUMADIN/WARFARIN INR THERAPY RANGESSTANDARD DOSE: 2.0 - 3.0 Includes: PROPHYLAXIS forvenous thrombosis, systemic embolization; TREATMENT for venous thrombosis and/or pulmonary embolus.HIGH RISK: Target INR is 2.5-3.5 for patients with mechanical heart valves.CBC W/PLT COUNT & AUTO [id number] 04:57:00 Test Item Value Reference Range Comments WHITE BLOOD CELL COUNT (BEAKER) (test hmal=389) 4.4 K/ L 3.5-10.5 RED BLOOD CELL COUNT (BEAKER) (test lscq=844) 3.72 M/ L 4.63-6.08 HEMOGLOBIN (BEAKER) (test xpkc=023) 10.4 GM/DL 13.7-17.5 HEMATOCRIT (BEAKER) (test fifh=052) 33.6 % 40.1-51.0 MEAN CORPUSCULAR VOLUME (BEAKER) (test aqww=802) 90.3 fL 79.0-92.2 MEAN CORPUSCULAR HEMOGLOBIN (BEAKER) (test 28.0 pg 25.7-32.2 halj=184) MEAN CORPUSCULAR HEMOGLOBIN CONC (BEAKER) (test 31.0 GM/DL 32.3-36.5 glxs=166) RED CELL DISTRIBUTION WIDTH (BEAKER) (test 14.8 % 11.6-14.4 gwzf=169) PLATELET COUNT (BEAKER) (test pgvj=937) 200 K/CU MM 150-450 MEAN PLATELET VOLUME (BEAKER) (test wwpr=839) 9.2 fL 9.4-12.4 NUCLEATED RED BLOOD CELLS (BEAKER) (test 0 /100 WBC 0-0 cgrr=840) NEUTROPHILS RELATIVE PERCENT (BEAKER) (test 39 % nboz=470) LYMPHOCYTES RELATIVE PERCENT (BEAKER) (test 47 % hxuk=468) MONOCYTES RELATIVE PERCENT (BEAKER) (test 9 % yjrt=207) EOSINOPHILS RELATIVE PERCENT (BEAKER) (test 3 % uvup=439) BASOPHILS RELATIVE PERCENT (BEAKER) (test 1 % ravs=740) NEUTROPHILS ABSOLUTE COUNT (BEAKER) (test 1.73 K/ L 1.78-5.38 lugt=948) LYMPHOCYTES ABSOLUTE COUNT (BEAKER) (test 2.09 K/ L 1.32-3.57 cezt=880) MONOCYTES ABSOLUTE COUNT (BEAKER) (test 0.40 K/ L 0.30-0.82 cktg=186) EOSINOPHILS ABSOLUTE COUNT (BEAKER) (test 0.15 K/ L 0.04-0.54 yyoz=384) BASOPHILS ABSOLUTE COUNT (BEAKER) (test 0.02 K/ L 0.01-0.08 yhei=981) IMMATURE GRANULOCYTES-RELATIVE PERCENT (BEAKER) 1 % 0-1 (test saqj=5729) POCT-GLUCOSE [id number] 22:16:00 Test Item Value Reference Range Comments POC-GLUCOSE METER (BEAKER) 140 mg/dL 70-110 TESTED AT [address] (test hkri=0834) [facility] [address] BONE AND/OR JOINT IMAGING, WHOLE [id number] 20:29:00FINAL REPORT PROCEDURE: BONE SCAN, WHOLE BODY CPT CODE: [id number] INDICATION: Renal masses pelvic mass concerning for [...] from July 24, 2018. Signed: [facility] Verified Date/Time: 07/27/2018 20:29:10 Electronically signed by: DILLON PRATHER MD on 08:29 PMPOCT-GLUCOSE [id number] 18:46:00 Test Item Value Reference Range Comments POC-GLUCOSE METER (BEAKER) 115 mg/dL 70-110 TESTED AT [address] (test xmlr=8695) [place] [id number] POCT-GLUCOSE [id number] 14:03:00 Test Item Value Reference Range Comments POC-GLUCOSE METER (BEAKER) 141 mg/dL 70-110 TESTED AT [address] (test dady=8893) [place] [id number] POCT-GLUCOSE [id number] 09:27:00 Test Item Value Reference Range Comments POC-GLUCOSE METER (BEAKER) 138 mg/dL 70-110 TESTED AT [address] (test rlpd=2069) [place] [id number] POCT-GLUCOSE [id number] 08:49:00 Test Item Value Reference Range Comments POC-GLUCOSE METER (BEAKER) 204 mg/dL 70-110 TESTED AT [address] (test lzcq=9312) [place] [id number] POCT-GLUCOSE [id number] 18:45:00 Test Item Value Reference Range Comments POC-GLUCOSE METER (BEAKER) 104 mg/dL 70-110 TESTED AT [address] (test lrzo=9912) [facility] [address] HEPATIC FUNCTION [id number] 07:52:00 Test Item Value Reference Range Comments TOTAL PROTEIN (BEAKER) (test mhhi=261) 7.0 gm/dL 6.0-8.3 ALBUMIN (BEAKER) (test fefc=2708) 3.6 g/dL 3.5-5.0 BILIRUBIN TOTAL (BEAKER) (test tezu=220) 0.4 mg/dL 0.2-1.2 BILIRUBIN DIRECT (BEAKER) (test spcf=270) 0.2 mg/dL 0.1-0.5 ALKALINE PHOSPHATASE (BEAKER) (test vlsz=503) 76 U/L 40-150 AST (SGOT) (BEAKER) (test rhkn=441) 18 U/L 5-34 ALT (SGPT) (BEAKER) (test phca=347) 14 U/L 6-55 POCT-GLUCOSE [id number] 06:11:00 Test Item Value Reference Range Comments POC-GLUCOSE METER (BEAKER) 144 mg/dL 70-110 TESTED AT [address] (test ngoc=6752) [place] [id number] POCT-GLUCOSE [id number] 22:55:00 Test Item Value Reference Range Comments POC-GLUCOSE METER (BEAKER) 187 mg/dL 70-110 TESTED AT [address] (test gfuf=1620) [place] [id number] VITAMIN B12 AND [id number] 16:34:00 Test Item Value Reference Range Comments VITAMIN B12 (BEAKER) (test nqbt=000) 1244 pg/mL 213-816 FOLATE (BEAKER) (test gzzz=036) 5.1 ng/mL >=7.0 HEMOGLOBIN [id number] 10:21:00 Test Item Value Reference Range Comments HEMOGLOBIN A1C (BEAKER) (test loez=351) 4.5 % 4.3-6.1 CBC W/PLT COUNT & AUTO [id number] 07:02:00 Test Item Value Reference Range Comments WHITE BLOOD CELL COUNT (BEAKER) (test fukw=607) 4.6 K/ L 3.5-10.5 RED BLOOD CELL COUNT (BEAKER) (test egmf=224) 3.50 M/ L 4.63-6.08 HEMOGLOBIN (BEAKER) (test wlma=118) 9.7 GM/DL 13.7-17.5 HEMATOCRIT (BEAKER) (test vgxt=435) 30.6 % 40.1-51.0 MEAN CORPUSCULAR VOLUME (BEAKER) (test ivpo=089) 87.4 fL 79.0-92.2 MEAN CORPUSCULAR HEMOGLOBIN (BEAKER) (test 27.7 pg 25.7-32.2 eahh=294) MEAN CORPUSCULAR HEMOGLOBIN CONC (BEAKER) (test 31.7 GM/DL 32.3-36.5 cvmp=186) RED CELL DISTRIBUTION WIDTH (BEAKER) (test 14.7 % 11.6-14.4 baie=681) PLATELET COUNT (BEAKER) (test feer=071) 171 K/CU MM 150-450 MEAN PLATELET VOLUME (BEAKER) (test qtau=449) 9.5 fL 9.4-12.4 NUCLEATED RED BLOOD CELLS (BEAKER) (test 0 /100 WBC 0-0 jobw=974) NEUTROPHILS RELATIVE PERCENT (BEAKER) (test 44 % fpgf=330) LYMPHOCYTES RELATIVE PERCENT (BEAKER) (test 45 % pdab=372) MONOCYTES RELATIVE PERCENT (BEAKER) (test 8 % dwgp=358) EOSINOPHILS RELATIVE PERCENT (BEAKER) (test 3 % aoof=493) BASOPHILS RELATIVE PERCENT (BEAKER) (test 0 % tndv=903) NEUTROPHILS ABSOLUTE COUNT (BEAKER) (test 2.01 K/ L 1.78-5.38 jxxc=140) LYMPHOCYTES ABSOLUTE COUNT (BEAKER) (test 2.07 K/ L 1.32-3.57 seet=234) MONOCYTES ABSOLUTE COUNT (BEAKER) (test 0.36 K/ L 0.30-0.82 masj=345) EOSINOPHILS ABSOLUTE COUNT (BEAKER) (test 0.13 K/ L 0.04-0.54 mdev=897) BASOPHILS ABSOLUTE COUNT (BEAKER) (test 0.02 K/ L 0.01-0.08 lpgv=498) IMMATURE GRANULOCYTES-RELATIVE PERCENT (BEAKER) 0 % 0-1 (test zzqr=2937) [id number] 06:53:00 Test Item Value Reference Range Comments FERRITIN (BEAKER) (test cbof=251) 283 ng/mL 5-275 IRON, TIBC, % SAT. (WITHOUT FERRITIN)2018-07-25 06:31:00 Test Item Value Reference Range Comments IRON (BEAKER) (test emvr=062) 56.0 ug/dL 40.0-160.0 TOTAL IRON BINDING CAPACITY (BEAKER) (test 296 ug/dL 250-450 xjcn=879) IRON % SATURATION (2) (BEAKER) (test gxmo=1889) 19 % 20-55 BASIC METABOLIC [id number] 06:12:00 Test Item Value Reference Range Comments SODIUM (BEAKER) (test 139 meq/L 136-145 arsm=150) POTASSIUM (BEAKER) (test 4.0 meq/L 3.5-5.1 Specimen slightly wpgn=100) hemolyzed CHLORIDE (BEAKER) (test 103 meq/L 98-107 ykpa=488) CO2 (BEAKER) (test 26 meq/L 22-29 iuqj=147) BLOOD UREA NITROGEN 19 mg/dL 7-21 (BEAKER) (test bbxa=896) CREATININE (BEAKER) (test 0.83 mg/dL 0.57-1.25 Specimen slightly egsw=382) hemolyzed GLUCOSE RANDOM (BEAKER) 107 mg/dL 70-105 (test qdws=779) CALCIUM (BEAKER) (test 10.1 mg/dL 8.4-10.2 phds=472) EGFR (BEAKER) (test 92 mL/min/1.73 sq m ESTIMATED GFR IS NOT rimq=7081) ACCURATE CREATININE CLEARANCE IN PREDICTING GLOMERULAR FILTRATION RATE. ESTIMATED GFR IS NOT APPLICABLE FOR DIALYSIS PATIENTS. CT, CHEST, WITH [id number] 21:44:00FINAL REPORT CT of the Chest, abdomen [...] without hydronephrosis or hydroureter. Signed: Sherif Garza [facility] Verified Date/Time: 07/24/2018 21:44:37 Reading Location: [facility] [id number] Consult Reading Room [facility] [id number] 21:44:00FINAL REPORT CT of the Chest, abdomen [...] MDReport Verified Date/Time: 07/24/2018 21:44:37 Reading Location: [address] Consult Reading Room POCT-GLUCOSE [id number] 21:35:00 Test Item Value Reference Range Comments POC-GLUCOSE METER (BEAKER) 104 mg/dL 70-110 TESTED AT [address] (test mvik=3342) [facility] [address] POCT-GLUCOSE [id number] 17:53:00 Test Item Value Reference Range Comments POC-GLUCOSE METER (BEAKER) 163 mg/dL 70-110 TESTED AT [address] (test fogh=5014) [facility] [address] URINALYSIS W/ REFLEX URINE [id number] 17:22:00 Test Item Value Reference Range Comments COLOR (BEAKER) (test tmnt=861) Yellow CLARITY (BEAKER) (test jtxy=244) Clear SPECIFIC GRAVITY UA (BEAKER) (test yqvy=219) 1.022 1.001-1.035 PH UA (BEAKER) (test ldxs=349) 6.0 5.0-8.0 PROTEIN UA (BEAKER) (test qpco=044) 50 mg/dL Negative GLUCOSE UA (BEAKER) (test lzqp=177) Negative Negative KETONES UA (BEAKER) (test olzd=920) Negative Negative BILIRUBIN UA (BEAKER) (test vmfy=095) Negative Negative BLOOD UA (BEAKER) (test rzxw=553) Negative Negative NITRITE UA (BEAKER) (test yvdt=298) Negative Negative LEUKOCYTE ESTERASE UA (BEAKER) (test utkc=454) Negative Negative UROBILINOGEN UA (BEAKER) (test mmll=521) 0.2 mg/dL 0.2-1.0 RBC UA (BEAKER) (test cojv=625) < /HPF WBC UA (BEAKER) (test zvfn=285) < /HPF MUCUS (BEAKER) (test spnk=6099) Few SOURCE(BEAKER) (test yfwg=9333) POCT-GLUCOSE [id number] 10:06:00 Test Item Value Reference Range Comments POC-GLUCOSE METER (BEAKER) 121 mg/dL 70-110 TESTED AT [address] (test unza=2338) [facility] [address] BASIC METABOLIC [id number] 05:47:00 Test Item Value Reference Range Comments SODIUM (BEAKER) (test 139 meq/L 136-145 pzjs=400) POTASSIUM (BEAKER) (test 3.9 meq/L 3.5-5.1 edvu=177) CHLORIDE (BEAKER) (test 105 meq/L 98-107 gudj=909) CO2 (BEAKER) (test 26 meq/L 22-29 xgts=728) BLOOD UREA NITROGEN 21 mg/dL 7-21 (BEAKER) (test gqvx=339) CREATININE (BEAKER) (test 0.84 mg/dL 0.57-1.25 iptz=534) GLUCOSE RANDOM (BEAKER) 116 mg/dL 70-105 (test bssh=793) CALCIUM (BEAKER) (test 9.8 mg/dL 8.4-10.2 zjjb=837) EGFR (BEAKER) (test 90 mL/min/1.73 sq m ESTIMATED GFR IS NOT oxrl=9397) ACCURATE CREATININE CLEARANCE IN PREDICTING GLOMERULAR FILTRATION RATE. ESTIMATED GFR IS NOT APPLICABLE FOR DIALYSIS PATIENTS. CBC W/PLT COUNT & AUTO [id number] 05:38:00 Test Item Value Reference Range Comments WHITE BLOOD CELL COUNT (BEAKER) (test dpuw=110) 4.6 K/ L 3.5-10.5 RED BLOOD CELL COUNT (BEAKER) (test lbqa=055) 3.63 M/ L 4.63-6.08 HEMOGLOBIN (BEAKER) (test crwy=844) 10.0 GM/DL 13.7-17.5 HEMATOCRIT (BEAKER) (test arre=541) 31.8 % 40.1-51.0 MEAN CORPUSCULAR VOLUME (BEAKER) (test lfcn=653) 87.6 fL 79.0-92.2 MEAN CORPUSCULAR HEMOGLOBIN (BEAKER) (test 27.5 pg 25.7-32.2 tyyl=414) MEAN CORPUSCULAR HEMOGLOBIN CONC (BEAKER) (test 31.4 GM/DL 32.3-36.5 orku=597) RED CELL DISTRIBUTION WIDTH (BEAKER) (test 14.4 % 11.6-14.4 kaxs=692) PLATELET COUNT (BEAKER) (test vnio=585) 154 K/CU MM 150-450 MEAN PLATELET VOLUME (BEAKER) (test cilj=123) 9.6 fL 9.4-12.4 NUCLEATED RED BLOOD CELLS (BEAKER) (test 0 /100 WBC 0-0 lfxt=310) NEUTROPHILS RELATIVE PERCENT (BEAKER) (test 43 % kqlj=608) LYMPHOCYTES RELATIVE PERCENT (BEAKER) (test 45 % vypz=556) MONOCYTES RELATIVE PERCENT (BEAKER) (test 9 % ekia=846) EOSINOPHILS RELATIVE PERCENT (BEAKER) (test 2 % xcrr=537) BASOPHILS RELATIVE PERCENT (BEAKER) (test 0 % oeuh=069) NEUTROPHILS ABSOLUTE COUNT (BEAKER) (test 1.96 K/ L 1.78-5.38 rzgn=165) LYMPHOCYTES ABSOLUTE COUNT (BEAKER) (test 2.03 K/ L 1.32-3.57 nqkv=634) MONOCYTES ABSOLUTE COUNT (BEAKER) (test 0.42 K/ L 0.30-0.82 tdhx=173) EOSINOPHILS ABSOLUTE COUNT (BEAKER) (test 0.11 K/ L 0.04-0.54 ubis=101) BASOPHILS ABSOLUTE COUNT (BEAKER) (test 0.02 K/ L 0.01-0.08 iljd=000) IMMATURE GRANULOCYTES-RELATIVE PERCENT (BEAKER) 0 % 0-1 (test qwtq=2529) POCT-GLUCOSE [id number] 21:46:00 Test Item Value Reference Range Comments POC-GLUCOSE METER (BEAKER) 144 mg/dL 70-110 TESTED AT [address] (test iwnj=1821) [facility] [address] POCT-GLUCOSE [id number] 12:41:00 Test Item Value Reference Range Comments POC-GLUCOSE METER (BEAKER) 141 mg/dL 70-110 TESTED AT [address] (test ibon=2847) [facility] [address] CBC W/PLT COUNT & AUTO [id number] 05:23:00 Test Item Value Reference Range Comments WHITE BLOOD CELL COUNT (BEAKER) (test vgtl=725) 4.2 K/ L 3.5-10.5 RED BLOOD CELL COUNT (BEAKER) (test asby=222) 3.62 M/ L 4.63-6.08 HEMOGLOBIN (BEAKER) (test vnvd=844) 10.0 GM/DL 13.7-17.5 HEMATOCRIT (BEAKER) (test hxla=955) 31.6 % 40.1-51.0 MEAN CORPUSCULAR VOLUME (BEAKER) (test ezkk=172) 87.3 fL 79.0-92.2 MEAN CORPUSCULAR HEMOGLOBIN (BEAKER) (test 27.6 pg 25.7-32.2 cvbx=404) MEAN CORPUSCULAR HEMOGLOBIN CONC (BEAKER) (test 31.6 GM/DL 32.3-36.5 ofbd=236) RED CELL DISTRIBUTION WIDTH (BEAKER) (test 14.4 % 11.6-14.4 wyjf=990) PLATELET COUNT (BEAKER) (test aqcw=685) 139 K/CU MM 150-450 MEAN PLATELET VOLUME (BEAKER) (test lgwm=679) 9.8 fL 9.4-12.4 NUCLEATED RED BLOOD CELLS (BEAKER) (test 0 /100 WBC 0-0 umpo=298) NEUTROPHILS RELATIVE PERCENT (BEAKER) (test 43 % vzal=123) LYMPHOCYTES RELATIVE PERCENT (BEAKER) (test 44 % mkst=132) MONOCYTES RELATIVE PERCENT (BEAKER) (test 10 % vvxm=567) EOSINOPHILS RELATIVE PERCENT (BEAKER) (test 2 % ciko=920) BASOPHILS RELATIVE PERCENT (BEAKER) (test 1 % jsbq=059) NEUTROPHILS ABSOLUTE COUNT (BEAKER) (test 1.79 K/ L 1.78-5.38 qygh=388) LYMPHOCYTES ABSOLUTE COUNT (BEAKER) (test 1.84 K/ L 1.32-3.57 tbnb=515) MONOCYTES ABSOLUTE COUNT (BEAKER) (test 0.41 K/ L 0.30-0.82 osgz=552) EOSINOPHILS ABSOLUTE COUNT (BEAKER) (test 0.08 K/ L 0.04-0.54 exxz=067) BASOPHILS ABSOLUTE COUNT (BEAKER) (test 0.02 K/ L 0.01-0.08 twii=470) IMMATURE GRANULOCYTES-RELATIVE PERCENT (BEAKER) 1 % 0-1 (test jtvu=2352) BASIC METABOLIC [id number] 05:22:00 Test Item Value Reference Range Comments SODIUM (BEAKER) (test 140 meq/L 136-145 bcek=603) POTASSIUM (BEAKER) (test 3.5 meq/L 3.5-5.1 kekm=783) CHLORIDE (BEAKER) (test 105 meq/L 98-107 jyef=387) CO2 (BEAKER) (test 25 meq/L 22-29 slev=660) BLOOD UREA NITROGEN 19 mg/dL 7-21 (BEAKER) (test ozpu=856) CREATININE (BEAKER) (test 0.89 mg/dL 0.57-1.25 bqhb=923) GLUCOSE RANDOM (BEAKER) 134 mg/dL 70-105 (test lqzr=448) CALCIUM (BEAKER) (test 9.9 mg/dL 8.4-10.2 hqny=487) EGFR (BEAKER) (test 85 mL/min/1.73 sq m ESTIMATED GFR IS NOT eowz=2022) ACCURATE CREATININE CLEARANCE IN PREDICTING GLOMERULAR FILTRATION RATE. ESTIMATED GFR IS NOT APPLICABLE FOR DIALYSIS PATIENTS. PROTHROMBIN [id number] 05:15:00 Test Item Value Reference Range Comments PROTIME (SHANEKA) (test zlpk=779) 13.1 seconds 11.7-14.7 INR (BEAKER) (test xvci=977) 1.0 <=5.9 RECOMMENDED COUMADIN/WARFARIN INR THERAPY RANGESSTANDARD DOSE: 2.0 - 3.0 Includes: PROPHYLAXIS forvenous thrombosis, systemic embolization; TREATMENT for venous thrombosis and/or pulmonary embolus.HIGH RISK: Target INR is 2.5-3.5 for patients with mechanical heart valves.POCT-GLUCOSE [id number] 00:12:00 Test Item Value Reference Range Comments POC-GLUCOSE METER (SHANEKA) 121 mg/dL 70-110 TESTED AT [facility] [address] Y[address] (test cpof=5566) [facility] [address]
[2018-12-03 18:53] LABS: Absolute Lymphocytes (CBC) 1.9 K/uL (0.7-4.9); Basophils % 0.5 % (0-1.3); Lymphocytes % 44.8 % (15.3-44.8); RBC Red Blood Cell Count 4.52 M/uL (4.33-5.43)
[2018-12-03 19:00] LABS: Magnesium 1.8 mg/dL (1.8-2.4); Potassium 4.3 mmol/L (3.5-5.1)
--- NOTE | 2018-12-03 19:26 | RAD REPORT ---
EXAM DESCRIPTION: MRI - Brain Wo Cont - 12/03/2018 7:00 pm CLINICAL HISTORY: Aphasi COMPARISON: December 02, 2018 TECHNIQUE: Axial, sagittal, and coronal magnetic images of the brain were obtained. Contrast was not requested FINDINGS: Mild signal within periventricular, deep and subcortical white matter likely ischemic blackmon ges secondary to small vessel disease. Diffusion-weighted/ADC mapping does not reveal evidence of acute infarction. The ventricles are normal caliber. An extra-axial fluid collection is not present. Mild cerebral atrophy Mild ethmoid sinusitis. Mastoids clear IMPRESSION: No acute abnormality displayed
[2018-12-03] MEDS ORDERED: HYDROCODONE/APAP 5/325 MG TAB ONE (19:28)
[2018-12-03] MEDS ORDERED: NA CHLORIDE 0.9% 1,000 ML ONE (19:28)
[2018-12-03] MEDS ORDERED: cloNIDine HCl 0.1 MG TAB ONE (20:08)
[2018-12-03] MEDS ORDERED: MORPHINE 4 MG/ML SYR ONE (20:24)
[2018-12-03] MEDS ORDERED: HYDRALAZINE HCL 20 MG/ML VIAL ONE (20:48)
[2018-12-03 21:08] LABS: Urine Bacteria <20 /HPF (NONE SEEN); Urine Culture Reflex Order NOT NEEDED; Urine RBC <5 /HPF (NONE SEEN)
[2018-12-03] MEDS ORDERED: LORazepam 2 MG/ML VIAL ONE ×2 (21:30→22:26)
[2018-12-03] MEDS ORDERED: DIPHENHYDRAMINE 50 MG/ML VIAL ONE (21:37)
[2018-12-03] MEDS ORDERED: Nicardipine/NS 25 MG/250 ML KIT IV ONE (21:37)
--- NOTE | 2018-12-03 22:12 | EDPHYS ---
Physician Documentation [facility] Name: Shivam Sykes Age: 68 yrs Sex: Male : 1950 Arrival Date: 12/03/2018 Time: 18:01 Bed 3 Private MD: Juma Dobbins S ED Physician Gianni Corcoran HPI: 12/03 18:29 This 68 yrs old Male presents to ER via Ambulatory with complaints of Slurred rn Speech. 18:29 The patient presents to the emergency department with a speech or higher order brain rn function problem, aphasia. Onset: The symptoms/episode began/occurred 1 week(s) ago. Associated signs and symptoms: Pertinent positives: weakness, Pertinent negatives: fever, neck stiffness, seizure, syncope, double vision, visual field changes, loss of vision. Severity of symptoms: At their worst the symptoms were mild in the emergency department the symptoms are unchanged. Current symptoms: generalized weakness. The patient has not experienced similar symptoms in the past. The patient has been recently seen by a physician:. Reports intermittent speech difficulty and generalized weakness for 1 week, is undergoing chemotherapy for renal cancer, had ct head without contrast here yesterday as outpt by PCP and was told negative. No fever/chest pain/cough/sob/urinary problem. Family reports little PO intake or fluid intake.. Historical: - Allergies: 18:06 No Known Allergies; aj - Home Meds: 18:06 Crestor Oral [Active]; Levemir subcutaneous [Active]; Metoprolol Tartrate Oral [Active];aj - PMHx: 18:06 Diabetes - IDDM; Hypertension; - PSHx: 18:06 2000; aj - Immunization history:: Adult Immunizations up to date. - Social history:: Smoking status: Patient/guardian denies using tobacco. - Ebola Screening: : Patient negative for fever greater than or equal to 101.5 degrees Fahrenheit, and additional compatible Ebola Virus Disease symptoms Patient denies exposure to infectious person Patient denies travel to an Ebola-affected area in the 21 days before illness onset No symptoms or risks identified at this time. - Family history:: not pertinent. - Hospitalizations: : No recent hospitalization is reported. ROS: 18:29 Constitutional: Negative for fever, chills, and weight loss, Eyes: Negative for injury, rn pain, redness, and discharge, ENT: Negative for injury, pain, and discharge, Neck: Negative for injury, pain, and swelling, Cardiovascular: Negative for chest pain, palpitations, and edema, Respiratory: Negative for shortness of breath, cough, wheezing, and pleuritic chest pain, Abdomen/GI: Negative for abdominal pain, nausea, vomiting, diarrhea, and constipation, MS/Extremity: Negative for injury and deformity, Skin: Negative for injury, rash, and discoloration, Neuro: + generalized weakness Exam: 18:29 Constitutional: This is a well developed, well nourished patient who is awake, alert, rn and in no acute distress. Head/Face: Normocephalic, atraumatic. Eyes: Pupils equal round and reactive to light, extra-ocular motions intact. Lids and lashes normal. Conjunctiva and sclera are non-icteric and not injected. Cornea within normal limits. Periorbital areas with no swelling, redness, or edema. ENT: dry MM Neck: Trachea midline, no thyromegaly or masses palpated, and no cervical lymphadenopathy. Supple, full range of motion without nuchal rigidity, or vertebral point tenderness. No Meningismus. Cardiovascular: Regular rate and rhythm. No pulse deficits. Respiratory: Lungs have equal breath sounds bilaterally, clear to auscultation. No increased work of breathing, no retractions or nasal flaring. Abdomen/GI: soft, non-tender Skin: Warm, dry MS/ Extremity: Pulses equal, no cyanosis. Neurovascular intact. Full, normal range of motion. Equal circumference. Neuro: Awake and alert, GCS 15, oriented to person, place, time, and situation. Cranial nerves II-XII grossly intact. Motor strength 5/5 in all extremities. Painful ROM RLE (baseline hip problem adn uses cane). Sensory grossly intact. Cerebellar exam normal. Vital Signs: 18:06 BP 221 / 112; Pulse 67; Resp 18; Temp 97.8; Pulse Ox 97% on R/A; Weight 91.63 kg; aj Height 6 ft. 0 in. (182.88 cm); 18:32 BP 220 / 112; Pulse 60; Resp 18; Pulse Ox 99% on R/A; sv 19:34 BP 187 / 99; Pulse 58; Resp 17; Pulse Ox 99% on R/A; Pain 8/10; tl1 20:20 BP 222 / 100; Pulse 61; Resp 22; tl1 21:02 BP 220 / 102; Pulse 63; Resp 24; Pulse Ox 100% on R/A; Pain 4/10; tl1 23:16 BP 222 / 116; Pulse 113; Resp 24; Temp 98; Pulse Ox 97% on R/A; tl1 23:42 BP 212 / 111; Pulse 113; Resp 14; Pulse Ox 99% on R/A; Pain 0/10; tl1 12/04 00:53 BP 197 / 111; Pulse 110; Resp 22; Pulse Ox 97% on R/A; Pain 0/10; tl1 01:25 BP 187 / 106; Pulse 119; Resp 21; Pulse Ox 97% on R/A; Pain 0/10; tl1 12/03 18:06 Body Mass Index 27.40 (91.63 kg, 182.88 cm) aj NIH Stroke Scale Scores: 12/03 19:30 NIHSS Score: 2 tl1 [place] Coma Score: 18:20 Eye Response: spontaneous(4). Verbal Response: oriented(5). Motor Response: obeys sv commands(6). Total: 15. MDM: 18:12 Patient medically screened. rn 21:04 ED course: Intermittent confusion and difficulty getting words/thoughts out, BP rn persistently elevated and going higher, MRI brain negative, bloodwork shows only dehydration/volume depletion, given oral clonidine without help, hydralazine ordered given HR already about 60. Will admit for hypertensive emergency/encephalopathy.. 21:37 ED course: Pt agitated trying to get out of bed, worsening BP, most likely hypertensive rn encephalopathy, will start cardene drip and admit to ICU to Dr. Vera. . 22:09 Data reviewed: vital signs, nurses notes, lab test result(s), EKG, radiologic studies, rn MRI, and as a result, I will admit patient. Counseling: I had a detailed discussion with the patient and/or guardian regarding: the historical points, exam findings, and any diagnostic results supporting the discharge/admit diagnosis, lab results, radiology results, the need for further work-up and treatment in the hospital. Response to treatment: the patient's symptoms have worsened after treatment, and as a result, I will admit patient. Admission orders: after a detailed discussion of the patient's condition and case, the admit orders are written by me. ED course: Pt admitted to Dr. Vera. Cardene started. Got morphine for pain, possible allergic reaction as started to itch, given benadryl for reaction, and also seemed to worsen agitation. Given 0.5mg ativan and admitted to ICU for hypertensive encephalopathy. MRI negative and CT head negative yesterday, symptoms worsening over a week.. 23:18 ED course: Pt still not improved, seems more agitated, 5mg geodon ordered to see if rn helps with mental status, as well as repeat ct head ordered to rule out acute change.. 12/04 01:58 ED course: Rpt ct head negative for acute change. Dr. Vera will now take him to ICU.. rn 12/03 18:26 Order name: CBC with Diff; Complete Time: 19:01 rn 12/03 18:26 Order name: Basic Metabolic Panel; Complete Time: 19:15 rn 12/03 18:26 Order name: Urine Microscopic Only; Complete Time: 21:25 rn 12/03 18:26 Order name: Magnesium; Complete Time: 19:15 rn 12/03 20:50 Order name: Urine Dipstick--Ancillary (enter results); Complete Time: 22:24 ag4 12/04 01:34 Order name: Ammonia EDMI 12/03 18:25 Order name: Brain Wo Cont MRI; Complete Time: 19:39 rn 12/03 23:18 Order name: CT Head Brain wo Cont 12/04 01:49 Order name: T4 Free [facility] 12/04 01:49 Order name: Thyroid Stimulating Hormone [facility] 12/04 02:02 Order name: Procalcitonin [facility] 12/03 18:25 Order name: IV Start; Complete Time: 18:40 rn 12/03 18:26 Order name: Urine Dipstick-Ancillary (obtain specimen); Complete Time: 20:53 rn 12/03 18:26 Order name: EKG; Complete Time: 18:27 rn 12/03 18:26 Order name: EKG - Nurse/Tech; Complete Time: 18:40 rn Administered Medications: 12/03 19:32 Drug: NS 0.9% 500 ml Route: IV; Rate: bolus; Site: right forearm; tl1 20:20 Follow up: IV Status: Completed infusion; IV Intake: 500ml tl1 19:32 Drug: [place] 5 mg-325 mg 1 tabs {Note: 0.} Route: PO; tl1 21:03 Follow up: Response: No adverse reaction; Marked relief of symptoms; Pain is decreased; tl1 RASS: Alert and Calm (0) 19:33 Drug: NS 0.9% 500 ml Route: IV; Rate: bolus; Site: right forearm; tl1 20:19 Follow up: IV Status: Completed infusion; IV Intake: 500ml tl1 20:12 Drug: cloNIDine 0.2 mg Route: PO; tl1 21:10 Follow up: Response: No adverse reaction; No change in condition; Blood pressure is tl1 unchanged 20:27 Drug: morphine 4 mg {Note: 1.} Route: IVP; Site: right forearm; tl1 21:03 Follow up: Response: No adverse reaction; Marked relief of symptoms; Pain is decreased; tl1 RASS: Alert and Calm (0) 20:55 Drug: hydrALAZINE 10 mg Route: IV; Rate: calculated rate; Infused Over: 53 mins; Site: tl1 right forearm; 21:00 Follow up: IV Status: Completed infusion tl1 21:15 Follow up: Response: No adverse reaction; No change in condition; Blood pressure is tl1 unchanged 22:00 Drug: Ativan 0.5 mg Route: IVP; Infused Over: 2 mins; Site: right forearm; tl1 22:30 Follow up: Response: No adverse reaction; No change in condition; Anxiety increased tl1 22:06 Drug: niCARdipine (25mg/250ml) 2.5 mg/hr Route: IV; Rate: calculated rate; Site: right tl1 forearm; 12/04 01:27 Follow up: Rate change 12.5 mg/hr tl1 02:01 Follow up: IV Status: Infusion continued upon admission tl1 12/03 22:29 Drug: Ativan 0.5 mg Route: IVP; Infused Over: 2 mins; Site: right forearm; tl1 23:30 Follow up: Response: No adverse reaction; No change in condition; Anxiety increased tl1 23:22 Drug: Geodon 5 mg Route: IM; Site: left vastus lateralis; tl1 12/04 01:27 Follow up: Response: No adverse reaction; Marked relief of symptoms; Anxiety decreased tl1 12/03 23:27 Drug: Geodon 5 mg Route: IM; Site: right vastus lateralis; tl1 12/04 01:27 Follow up: Response: No adverse reaction; Anxiety decreased tl1 Point of Care Testing: Blood Glucose: 01:59 Blood Glucose: 165 mg/dL; tl1 Ranges: Critical Glucose Levels:Adult <50 mg/dl or >400 mg/dl <40 mg/dl or >180 mg/dl Disposition: 12/03/18 22:11 Hospitalization ordered by Kali Vera for Inpatient Admission. Preliminary diagnosis are Hypertensive encephalopathy, Dehydration, Altered mental status, unspecified. - Bed requested for Intensive Care Unit. - Status is Inpatient Admission. tl1 - Condition is Fair. - Problem is new. - Symptoms have worsened. UTI on Admission? No Critical care time excluding procedures: 12/03 22:09 Critical care time: Bedside Care: 25 minutes, Consultation: 5 minutes, Family rn Intervention: 5 minutes. Total time: 35 minutes NIH Stroke Scale - NIH Stroke Score Date: 12/03/2018 Time: 19:30 Total Score = 2 1a. Level of Consciousness (LOC) - 0(Alert) 1b. Level of Consciousness (LOC) (Year \T\ Age) - 0(Both) 1c. LOC Commands (Open \T\ Closes Eyes/Quarry Manager) - 0(Both) 2. Best Gaze (Lateral Gaze Paresis) - 0(Normal) 3. Visual Field Loss - 0(No visual loss) 4. Facial Palsy - 0(Normal) 5a. Left Arm: Motor (10-second hold) - 0(No drift) 5b. Right Arm: Motor (10-second hold) - 0(No drift) 6a. Left Leg: Motor (5-second hold - always test supine) - 0(No drift) 6b. Right Leg: Motor (5-second hold - always test supine) - 0(No drift) 7. Limb Ataxia (finger/nose \T\ heel/philippe - test with eyes open) - 0(Absent) 8. Sensory Loss (pinprick arms/legs/face) - 0(Normal) 9. Best Language: Aphasia (description/naming/reading) - 1(Mild to moderate aphasia) 10. Dysarthria (speech clarity - read or repeat words) - 1(Mild to Moderate) 11. Extinction and Inattention (visual/tactile/auditory/spatial/personal) - 0(No abnormality) Initials: tl1 Signatures: Dispatcher [employer] EDMS Millicent Washington RN DAVID Nery Wright RN Gianni Mendoza MD MD rn Lasagna, Tonya, RN RN tl1 Corrections: (The following items were deleted from the chart) 22:36 22:11 Hospitalization Ordered by Kali Vera DO for Inpatient Admission. Preliminary diagnosis is Hypertensive encephalopathy; Dehydration; Altered mental status, unspecified. Bed requested for Intensive Care Unit. Status is Inpatient Admission. Condition is Fair. Problem is new. Symptoms have worsened. UTI on Admission? No. rn 22:39 22:36 12/03/2018 22:11 Hospitalization Ordered by Kali Vera DO for Inpatient Admission. Preliminary diagnosis is Hypertensive encephalopathy; Dehydration; Altered mental status, unspecified. Bed requested for Intensive Care Unit. Status is Inpatient Admission. Condition is Fair. Problem is new. Symptoms have worsened. UTI on Admission? No. 12/04 02:52 12/03 22:39 12/03/2018 22:11 Hospitalization Ordered by Kali Vera DO for tl1 Inpatient Admission. Preliminary diagnosis is Hypertensive encephalopathy; Dehydration; Altered mental status, unspecified. Bed requested for Intensive Care Unit. Status is Inpatient Admission. Condition is Fair. Problem is new. Symptoms have worsened. UTI on Admission? No.
--- NOTE | 2018-12-03 22:12 | ER ---
Nurse's Notes [facility] Name: Shivam Sykes Age: 68 yrs Sex: Male : 1950 Arrival Date: 12/03/2018 Time: 18:01 Bed 3 Private MD: Juma Dobbins S Diagnosis: Hypertensive encephalopathy;Dehydration;Altered mental status, unspecified Presentation: 12/03 18:03 Presenting complaint: Patient states: Slurred speech that is intermittent and aj expressive aphasia since Saturday. CT yesterday for same symptoms. Transition of care: patient was not received from another setting of care. An acute neurological deficit is present. The charge nurse has been notified. Onset of symptoms was November 29, 2018. Risk Assessment: Do you want to hurt yourself or someone else? Patient reports no desire to harm self or others. Initial Sepsis Screen: Does the patient meet any 2 criteria? No. Patient's initial sepsis screen is negative. Does the patient have a suspected source of infection? No. Patient's initial sepsis screen is negative. Care prior to arrival: None. 18:03 Method Of Arrival: Ambulatory aj 18:03 Acuity: JIMBO 2 aj Triage Assessment: 18:06 The onset of the patients symptoms was November 29, 2018 at 20:00. General: Appears in no aj apparent distress. comfortable, Behavior is calm, cooperative, appropriate for age. Pain: Denies pain. Neuro: Level of Consciousness is awake, alert, obeys commands, Oriented to person, place, time, situation, Tester Operator Helper are equal bilaterally Moves all extremities. Full function Gait is steady, Speech is slurred, with expressive aphasia noted, Facial symmetry appears normal, Pupils are PERRLA, Reports slurred speech and expressive aphasia. Respiratory: Airway is patent Respiratory effort is even, unlabored, Respiratory pattern is regular, symmetrical. Derm: Skin is intact, is healthy with good turgor, Skin is pink, warm \T\ dry. normal. Stroke Activation: Symptom onset > 6 hours Physician: Stroke Attending; Name: ; Notified At: ; Arrived At: Physician: Chief Stroke Resident; Name: ; Notified At: ; Arrived At: Physician: Stroke Resident; Name: ; Notified At: ; Arrived At: Physician: ED Attending; Name: ; Notified At: ; Arrived At: Physician: ED Resident; Name: ; Notified At: ; Arrived At: Historical: - Allergies: 18:06 No Known Allergies; [facility] Home Meds: 18:06 Crestor Oral [Active]; Levemir subcutaneous [Active]; Metoprolol Tartrate Oral [Active]; - PMHx: 18:06 Diabetes - IDDM; Hypertension; [facility] PSHx: 18:06 2000; - Immunization history:: Adult Immunizations up to date. - Social history:: Smoking status: Patient/guardian denies using tobacco. - Ebola Screening: : Patient negative for fever greater than or equal to 101.5 degrees Fahrenheit, and additional compatible Ebola Virus Disease symptoms Patient denies exposure to infectious person Patient denies travel to an Ebola-affected area in the 21 days before illness onset No symptoms or risks identified at this time. - Family history:: not pertinent. - Hospitalizations: : No recent hospitalization is reported. Screenin:20 Abuse screen: Denies threats or abuse. Denies injuries from another. Nutritional sv screening: No deficits noted. Tuberculosis screening: No symptoms or risk factors identified. Fall Risk None identified. Assessment: 18:20 VAN Scoring: Arm Drift: Patients demonstrates NO arm weakness. Patient is VAN Negative. sv General: Appears in no apparent distress. comfortable, well developed, Behavior is calm, cooperative, appropriate for age. Pain: Denies pain. Neuro: Level of Consciousness is awake, alert, obeys commands, Oriented to person, place, time, situation, Moves all extremities. Full function Speech with expressive aphasia noted, Pt reports that his slurred speech has improved. Facial symmetry appears normal. Neuro: Reports weakness since 1 week slurred speech x 1 week. Cardiovascular: Patient's skin is warm and dry. Respiratory: Respiratory effort is even, unlabored, Respiratory pattern is regular, symmetrical. Derm: Skin is pink, warm \T\ dry. 19:15 Patient has been NPO before screening. The patient is alert, and able to follow tl1 commands. The patient exhibits slurred or garbled speech. The patient is not exhibiting difficulty speaking. The patient does not exhibit difficulty understanding words. Patient tolerated one teaspoon of water. No drooling, immediate coughing, gurgling, or clearing of the throat was noted. The patient tolerated 90mL of water. No drooling, immediate coughing, gurgling, or clearing of the throat was noted. The patient passed the bedside swallow screening. Oral medications may be given as ordered. Contact Physician for further diet orders. Provider notified of bedside swallow screening results: Gianni Corcoran MD. 19:30 T-PA (Activase) Screening: Contraindications: Patient reports onset of signs and tl1 symptoms of stroke greater than 6 hours ago: Yes. 23:03 Reassessment: Patient and/or family updated on plan of care and expected duration. Pain tl1 level reassessed. Patient states symptoms have not improved. General: Behavior is agitated, combative, restless, uncooperative. Neuro: Level of Consciousness is confused, Oriented to none. Vital Signs: 18:06 BP 221 / 112; Pulse 67; Resp 18; Temp 97.8; Pulse Ox 97% on R/A; Weight 91.63 kg; aj Height 6 ft. 0 in. (182.88 cm); 18:32 BP 220 / 112; Pulse 60; Resp 18; Pulse Ox 99% on R/A; sv 19:34 BP 187 / 99; Pulse 58; Resp 17; Pulse Ox 99% on R/A; Pain 8/10; tl1 20:20 BP 222 / 100; Pulse 61; Resp 22; tl1 21:02 BP 220 / 102; Pulse 63; Resp 24; Pulse Ox 100% on R/A; Pain 4/10; tl1 23:16 BP 222 / 116; Pulse 113; Resp 24; Temp 98; Pulse Ox 97% on R/A; tl1 23:42 BP 212 / 111; Pulse 113; Resp 14; Pulse Ox 99% on R/A; Pain 0/10; tl1 0808 00:53 BP 197 / 111; Pulse 110; Resp 22; Pulse Ox 97% on R/A; Pain 0/10; tl1 01:25 BP 187 / 106; Pulse 119; Resp 21; Pulse Ox 97% on R/A; Pain 0/10; tl1 12/03 18:06 Body Mass Index 27.40 (91.63 kg, 182.88 cm) aj [place] Coma Score: 12/03 18:20 Eye Response: spontaneous(4). Verbal Response: oriented(5). Motor Response: obeys sv commands(6). Total: 15. NIH Stroke Scale Scores: 19:30 NIHSS Score: 2 tl1 ED Course: 18:01 Patient arrived in ED. as 18:02 Juma Dobbins MD is Private Physician. as 18:05 Triage completed. aj 18:06 Arm band placed on left wrist. Patient placed in an exam room. aj 18:12 Gianni Corcoran MD is Attending Physician. rn 18:20 Patient has correct armband on for positive identification. Placed in gown. Bed in low sv position. Call light in reach. Side rails up X2. gas analyst on. Pulse ox on. NIBP on. Door closed. Head of bed elevated. 18:20 Initial lab(s) drawn, by ct, sent to lab. Inserted saline lock: 20 gauge in right sv forearm, using aseptic technique. Blood collected. Flushed right forearm with 5 ml normal saline. 18:24 Giselle Balderas RN is Primary Nurse. sv 18:38 Patient moved to MRI via wheelchair. sv 18:49 Brain Wo Cont MRI In Process Unspecified. EDMS 19:05 Report given to Dorota HERNANDEZ and Tahira HERNANDEZ. sv 19:07 Primary Nurse role handed off by Giselle Balderas RN sv 19:34 Dorota Kang RN is Primary Nurse. tl1 20:53 Urine Microscopic Only Sent. oe 22:11 Kali Chiu DO is Hospitalizing Provider. rn 22:52 No provider procedures requiring assistance completed. Patient admitted, IV remains in tl1 place. 0808 01:12 CT completed. Patient tolerated procedure well. Patient moved to CT via stretcher. Patient moved back from CT. Administered Medications: 12/03 19:32 Drug: NS 0.9% 500 ml Route: IV; Rate: bolus; Site: right forearm; tl1 20:20 Follow up: IV Status: Completed infusion; IV Intake: 500ml tl1 19:32 Drug: Elsa 5 mg-325 mg 1 tabs {Note: 0.} Route: PO; tl1 21:03 Follow up: Response: No adverse reaction; Marked relief of symptoms; Pain is decreased; tl1 RASS: Alert and Calm (0) 19:33 Drug: NS 0.9% 500 ml Route: IV; Rate: bolus; Site: right forearm; tl1 20:19 Follow up: IV Status: Completed infusion; IV Intake: 500ml tl1 20:12 Drug: cloNIDine 0.2 mg Route: PO; tl1 21:10 Follow up: Response: No adverse reaction; No change in condition; Blood pressure is tl1 unchanged 20:27 Drug: morphine 4 mg {Note: 1.} Route: IVP; Site: right forearm; tl1 21:03 Follow up: Response: No adverse reaction; Marked relief of symptoms; Pain is decreased; tl1 RASS: Alert and Calm (0) 20:55 Drug: hydrALAZINE 10 mg Route: IV; Rate: calculated rate; Infused Over: 53 mins; Site: tl1 right forearm; 21:00 Follow up: IV Status: Completed infusion tl1 21:15 Follow up: Response: No adverse reaction; No change in condition; Blood pressure is tl1 unchanged 22:00 Drug: Ativan 0.5 mg Route: IVP; Infused Over: 2 mins; Site: right forearm; tl1 22:30 Follow up: Response: No adverse reaction; No change in condition; Anxiety increased tl1 22:06 Drug: niCARdipine (25mg/250ml) 2.5 mg/hr Route: IV; Rate: calculated rate; Site: right tl1 forearm; 12/04 01:27 Follow up: Rate change 12.5 mg/hr tl1 02:01 Follow up: IV Status: Infusion continued upon admission tl1 12/03 22:29 Drug: Ativan 0.5 mg Route: IVP; Infused Over: 2 mins; Site: right forearm; tl1 23:30 Follow up: Response: No adverse reaction; No change in condition; Anxiety increased tl1 23:22 Drug: Geodon 5 mg Route: IM; Site: left vastus lateralis; tl1 12/04 01:27 Follow up: Response: No adverse reaction; Marked relief of symptoms; Anxiety decreased tl1 12/03 23:27 Drug: Geodon 5 mg Route: IM; Site: right vastus lateralis; tl1 12/04 01:27 Follow up: Response: No adverse reaction; Anxiety decreased tl1 Point of Care Testing: Blood Glucose: 01:59 Blood Glucose: 165 mg/dL; tl1 Ranges: Intake: 12/03 20:19 IV: 500ml; Total: 500ml. tl1 20:20 IV: 500ml; Total: 1000ml. tl1 Outcome: 22:11 Decision to Hospitalize by Provider. rn 12/04 02:50 Admitted to ICU accompanied by nurse, via stretcher, on monitor, Report called to tl1 Lexi Robles RN critical Instructed on the need for admit. 02:52 Patient left the ED. tl1 NIH Stroke Scale - NIH Stroke Score Date: 12/03/2018 Time: 19:30 Total Score = 2 1a. Level of Consciousness (LOC) - 0(Alert) 1b. Level of Consciousness (LOC) (Year \T\ Age) - 0(Both) 1c. LOC Commands (Open \T\ Closes Eyes/Primer Supervisor) - 0(Both) 2. Best Gaze (Lateral Gaze Paresis) - 0(Normal) 3. Visual Field Loss - 0(No visual loss) 4. Facial Palsy - 0(Normal) 5a. Left Arm: Motor (10-second hold) - 0(No drift) 5b. Right Arm: Motor (10-second hold) - 0(No drift) 6a. Left Leg: Motor (5-second hold - always test supine) - 0(No drift) 6b. Right Leg: Motor (5-second hold - always test supine) - 0(No drift) 7. Limb Ataxia (finger/nose \T\ heel/philippe - test with eyes open) - 0(Absent) 8. Sensory Loss (pinprick arms/legs/face) - 0(Normal) 9. Best Language: Aphasia (description/naming/reading) - 1(Mild to moderate aphasia) 10. Dysarthria (speech clarity - read or repeat words) - 1(Mild to Moderate) 11. Extinction and Inattention (visual/tactile/auditory/spatial/personal) - 0(No abnormality) Initials: tl1 Signatures: Dispatcher [employer] EDGiselle Goncalves RN RN sv Myers, Amanda RN Jake Jeffers Amelia as Nieto, Roman, MD MD rn Lasagna, Tonya, RN RN tl1 Duy Chris Corrections: (The following items were deleted from the chart) 12/03 19:33 19:32 Elsa 5 mg-325 mg 1 tabs PO tl1 tl1 23:21 23:16 BP 182 / 116; Pulse 113bpm; Resp 24bpm; Pulse Ox 97% RA; Temp 98F; tl1 tl1
[2018-12-03 22:18] LABS: Urine Glucose NEGATIVE (NEG); Urine Specific Gravity 1.025 (1.005-1.030)
[2018-12-03 22:19] LABS: Urine Blood TRACE (NEG); Urine Protein 2+ (NEG); Urine pH 6.5 (5.0-7.0)
[2018-12-03] MEDS ORDERED: NA CHLORIDE 0.9% 500 ML ONE (23:02)
[2018-12-03] MEDS ORDERED: ZIPRASIDONE MESYLA 20 MG/VIAL IM ONE (23:18)
[2018-12-03] MEDS ORDERED: WATER FOR INJ,STERILE 10 ML ONE (23:18)
--- NOTE | 2018-12-03 23:30 | P.HP ---
Certification for Inpatient Patient admitted to: Inpatient With expected LOS: >2 Midnights Patient will require the following post-hospital care: Custodial Practitioner: I am a practitioner with admitting privileges, knowledge of patient current condition, hospital course, and medical plan of care. Services: Services provided to patient in accordance with Admission requirements found in Title 42 Section 412.3 of the Code of Federal Regulations Patient History Date of Service: 12/03/18 Primary Care Provider: Dr. Dobbins; Oncology-[facility] Reason for admission: Headache, aphasia History of Present Illness: 68-year-old male with multiple medical problems including hypertension , diabetes mellitus type 2 insulin dependent, CAD, hyperlipidemia and recent diagnosis of renal cell carcinoma stage IV with left nephrectomy. Patient was brought in by family. Family reports that about a week ago patient started to have some aphasia off and on. He did not go to the ER. Family also reports that since being diagnose with renal cell carcinoma stage IV he has had a left nephrectomy. He recently started chemotherapy-Pembrolizumab 3 weeks ago. He his last chemotherapy was last week. Family has noted since starting chemotherapy he has had decreased appetite, poor mobility. It appears that he has been declining in health. He went to see his PCP today due to the aphasia and other symptoms. He was sent for an MRI brain without contrast which was unremarkable for acute abnormality. His symptoms persisted to the point to where he came to the ER. In the ER blood pressures were elevated with a systolic in the 240 range. Patient was given clonidine with improvement. But he required more medication including hydralazine. He start to have some severe headache. He was then given morphine. This made him agitated. Since that time he has been getting several doses of Ativan for agitation. At this time. Cardene drip has been initiated for better blood pressure control. On lab white count 4.1, hemoglobin 13.6. Sodium 141, potassium 4.3. BUN of 30, creatinine 1.8 with a GFR 37. Glucose 93. Urinalysis shows no evidence of bacteria. MRI brain without contrast was repeated. No changes were noted. CT head will be done to rule out bleed. Patient was admitted to ICU to further manage and evaluate his condition. When I saw the patient ER, he appeared agitated. He was not able to speak. He was able to move all 4s. Family at bedside. I was able to speak to his sons who reported decrease appetite and worsening health since starting chemotherapy. Family reports blood pressure at PCP office was within normal range. Allergies No Known Allergies Allergy (Unverified 07/19/18 01:28) Home medications list reviewed: Yes Home Medications: Metoprolol Tartrate [Lopressor] 50 mg PO BID 07/19/18 Amlodipine [Norvasc*] 5 mg PO DAILY 08/25/18 Docusate Sodium 100 mg PO BIDP PRN 08/25/18 Folic Acid 1 mg PO DAILY 08/25/18 Hydrocodone Bit/Acetaminophen [Hydrocodon-Acetaminophen 5-325] 1 tab PO Q6HP PRN 08/25/18 Ipratropium Mdi [Atrovent Hf Inhaler*] 2 puff IH TID 08/25/18 Polyethyl Gly 3350 [Glycolax*] 17 gm PO DAILYPRN PRN 08/25/18 Rosuvastatin [Crestor*] 20 mg PO DAILY 08/25/18 Tamsulosin [Flomax*] 0.4 mg PO DAILY 08/25/18 Tramadol HCl [Ultram] 100 mg PO Q6HP PRN 08/25/18 Docusate/Senna [Senokot-S*] 2 tab PO BEDTIME #60 tab 09/03/18 Iron/FA/Vit B-Com W/C [Hemocyte Plus*] 1 tab PO DAILY WITH BREAKFAST #30 tab 12/15 - Past Medical/Surgical History Diabetic: Yes -: HTN -: Diabetes mellitus type 2, insulin dependent -: CAD -: Obstructive sleep apnea -: BPH -: Renal cell carcinoma status post left nephrectomy, stage IV -: 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 -: Hyperlipidemia -: cardiac stent x2, 2001 Psychosocial/ Personal History: Patient lives at home - Family History Father -: Heart disease, Hypertension Mother -: Heart disease, Hypertension Brother -: Hypertension, Diabetes - Social History Smoking Status: Former smoker Alcohol use: Yes CD- Drugs: No Caffeine use: Yes Place of Residence: Home Review of Systems General: Weakness, Other (Poor mobility.), As per HPI Eyes: Unremarkable ENT: As per HPI Respiratory: Unremarkable Cardiovascular: Light Headedness, Other (Headache), As per HPI Gastrointestinal: Unremarkable Genitourinary: Unremarkable Musculoskeletal: Unremarkable Integumentary: Unremarkable Neurological: Change in Speech, Confusion, As per HPI Lymphatics: Unremarkable Physical Examination - Physical Exam General: Confused, Other (Patient confused. Patient has received multiple doses of Ativan for confusion. Patient is aphasic.) HEENT: Atraumatic, Normocephalic, PERRLA, Other (Dry mucous membranes) Neck: Supple Respiratory: Clear to auscultation bilaterally, Normal air movement Cardiovascular: Normal pulses, Regular rate/rhythm Gastrointestinal: Normal bowel sounds, Soft and benign, Non-distended, No masses , No rebound, No guarding Integumentary: No tenderness/swelling, No erythema, No warmth, No cyanosis Neurological: Normal strength at 5/5 x4 extr, Normal tone, Abnormal speech ( Patient with aphasia), Abnormal affect (Increase agitation with confusion) - Studies Laboratory Data (last 24 hrs) 12/03/18 18:30: Sodium 141, Potassium 4.3, BUN 30 H, Creatinine 1.80 H, Glucose 93, Magnesium 1.8 12/03/18 18:30: WBC 4.1 L, Hgb 13.6, Hct 40.0, Plt Count 150 L Assessment and Plan - Plan Impression: Confusion, headache, aphasia secondary to hypertensive emergency with encephalopathy Acute renal insufficiency likely dehydration Renal cell carcinoma stage IV with metastasis to the hip on chemotherapy- Pembrolizumab Diabetes mellitus type 2, insulin dependent BPH Hyperlipidemia CAD Plan: Confusion, headache, aphasia secondary to hypertensive emergency with encephalopathy: Patient will be admitted to ICU for close monitoring. Patient has been started on IV Cardene drip to maintain blood pressure systolic above 180. Will slowly added oral medication for blood pressure control. Patient takes metoprolol 50 mg 1 pill twice daily. Will consult cardiology for further recommendation. Will obtain echocardiogram. Patient in process of getting CT of head without contrast to rule out bleed. Current MRI without contrast shows no acute changes. Will need to assess for infectious versus inflammatory versus other causes. Blood culture obtained. Will check ammonia level, pro calcitonin, tsh and free T4. Will start DVT prophylaxis-Lovenox. Patient continues with confusion. Patient has received multiple doses of Ativan. Patient will be given Geodon for agitation. Patient may require soft restraints to protect patient. Will continue to monitor closely. Will try to obtain more information concerning his chemotherapy medication from his PCP and oncologist. Daytime hospital team will continue management. Case discussed at length with ld. Will need to readdress advanced directives in the morning. Patient will likely require skilled placement at discharge. Discharge in the next 3-5 days pending clinical improvement. Acute renal insufficiency likely dehydration: Will start IV fluids. Will monitor and adjust appropriately. Will consult nephrology for further evaluation and recommendation. Renal cell carcinoma stage IV with metastasis to the hip on chemotherapy- Pembrolizumab: Will try to obtain information from oncology. Patient seen at [facility] oncology. Family has noted since chemotherapy started 3 weeks ago that his health has been declining. Multiple symptoms present may be related to chemotherapy. Last chemotherapy given on Saturday IV. Diabetes mellitus type 2, insulin dependent: Will continue Accu-Cheks and sliding scale. Will hold metformin at this time. BPH: Restart Flomax. Hyperlipidemia: Continue with Crestor 40 mg daily CAD: Continue as above. DVT prophylaxis Lovenox to be initiated. Discharge Plan: Other (Skilled placement) Plan to discharge in: Greater than 2 days - Advance Directives Does patient have a Living Will: Yes Does patient have a Durable POA for Healthcare: Yes - Code Status/Comfort Care Code Status Assessed: No (This is to be readdressed in the a.m.) Time Spent Managing Pts Care (In Minutes): 65
[2018-12-04 01:49] LABS: Thyroid Stimulating Hormone 2.77 uIU/mL (0.360-3.740)
[2018-12-04] MEDS ORDERED: LORazepam 2 MG/ML VIAL IV PRN (02:16)
[2018-12-04] MEDS ORDERED: ZIPRASIDONE MESYLA 20 MG/VIAL IM PRN (02:16)
[2018-12-04] MEDS ORDERED: ACETAMINOPHEN 650MG/RECT SUPP RECT PRN (02:16)
[2018-12-04] MEDS ORDERED: Nicardipine in Saline, Iso-Osm 20 MG/200 ML IV.SOLN. IV PRN (02:16)
[2018-12-04] MEDS ORDERED: D5 0.9 NS 1,000 ML IV SCH (02:16)
[2018-12-04] MEDS ORDERED: WATER FOR INJ,STERILE 10 ML IM PRN (02:16)
[2018-12-04] MEDS ORDERED: ONDANSETRON 4 MG/2 ML VIAL IV PRN (02:16)
[2018-12-04] MEDS ORDERED: HALOPERIDOL LACT 5 MG/ML INJ ONE (02:37)
[2018-12-04] MEDS ORDERED: HALOPERIDOL LACT 5 MG/ML INJ IV PRN (02:54)
[2018-12-04] MEDS ORDERED: Nicardipine/NS 25 MG/250 ML KIT IV ONE (03:50)
[2018-12-04] MEDS ORDERED: FENTANYL CITR 100 MCG/2 ML IV PRN (05:06)
[2018-12-04 05:07] LABS: Absolute Lymphocytes (CBC) 0.9 K/uL (0.7-4.9); Basophils % 0.3 % (0-1.3); Hematocrit 42.3 % (39.6-49.0); Lymphocytes % 14.3 % (15.3-44.8); MPV 7.3 fL (7.6-11.3); RBC Red Blood Cell Count 4.77 M/uL (4.33-5.43)
[2018-12-04 05:29] LABS: Albumin 3.8 g/dL (3.4-5.0); Bilirubin Total 0.5 mg/dL (0.2-1.0); Magnesium 1.6 mg/dL (1.8-2.4); Potassium 3.9 mmol/L (3.5-5.1); Protein, Total 7.9 g/dL (6.4-8.2)
--- NOTE | 2018-12-04 05:30 | EKG ---
Test Date: 2018-12-03 Test Time: 18:34:18 Power Saw Mechanic: ALICIA MEASUREMENT RESULTS: Intervals: Rate: 57 FL: 180 QRSD: 132 QT: 472 QTc: 459 [place]: P: 42 FL: 180 QRS: -15 T: 57 INTERPRETIVE STATEMENTS: Sinus bradycardia Right bundle branch block Abnormal ECG Compared to ECG 07/18/2018 22:43:54 Sinus rhythm no longer present Electronically Signed On 12-04-18 05:29:50 CDT by Jb Rodriguez
[2018-12-04] MEDS ORDERED: MAGNESIUM SULFATE 1 gm IVPB 1 GM/100 ML BAG IV ONE (06:17)
[2018-12-04] MEDS: INSULIN -REGULAR HUMAN 50 UNIT/0.5 ML ML SQ SCH ×4 (07:30→21:00)
[2018-12-04] MEDS: METOPROLOL TAR 50 MG TAB PO SCH ×2 (08:49→21:00)
[2018-12-04 08:53] LABS: Uric Acid 7.5 mg/dL (3.5-7.2)
[2018-12-04] MEDS ORDERED: ENOXAPARIN 40 MG/0.4 ML SQ SCH (09:00)
[2018-12-04 09:59] LABS: Barbiturates NEGATIVE (NEGATIVE); Benzodiazepines NEGATIVE (NEGATIVE); Cocaine NEGATIVE (NEGATIVE); METHAMPHETAM NEGATIVE (NEGATIVE); Methadone NEGATIVE (NEGATIVE); Opiates POSITIVE (NEGATIVE); Phencyclidine NEGATIVE (NEGATIVE); THC Cannibis NEGATIVE (NEGATIVE)
[2018-12-04] MEDS: ENOXAPARIN 30 MG/0.3 ML SQ SCH (09:59)
[2018-12-04] MEDS ORDERED: TAMSULOSIN 0.4 MG SR CAP PO ONE (11:01)
--- NOTE | 2018-12-04 11:03 | RAD REPORT ---
EXAM DESCRIPTION: CT - Head Brain Wo Cont - 12/04/2018 5:39 am CLINICAL HISTORY: CONFUSED COMPARISON: None. TECHNIQUE: CT HEAD WITHOUT IV CONTRAST on 12/03/2018 11:18 PM CDT This exam was performed according to our departmental dose-optimization program, which includes autom ated exposure control, adjustment of the mA and/or kV according to patient size and/or use of iterati ve reconstruction technique. FINDINGS: There is no acute hemorrhage, mass effect or midline shift. Morrison-white differentiation is preserved. There is no hydrocephalus. There is no significant volume loss for age. There are mild pat tiburcio hypodensities within the periventricular and subcortical white matter, consistent with microangio pathic ischemic changes. The calvarium is intact. Orbits and globes are unremarkable. The paranasal sinuses are clear. Mastoid air cells are clear. IMPRESSION: No acute intracranial findings. Electronically signed by: Carlos Knutson MD 12/04/2018 1:42 AM CDT Due to temporary technical issues with the PACS/Fluency reporting system, reports are being signed by the in house radiologist as a courtesy to ensure prompt reporting. The interpreting radiologist is f ully responsible for the content of the report.
--- NOTE | 2018-12-04 11:17 | P.PN ---
Subjective Date of Service: 12/04/18 Primary Care Provider: Dr. Dobbins; Oncology-[facility] Chief Complaint: Headache, aphasia Patient seen and examined at bedside with RN. Chart reviewed. Case discussed with cardiology at this time. Patient continues to be alert and oriented x1 this morning. Denies having any problems however unable to get any review of systems Review of Systems 10-point ROS is otherwise unremarkable Physical Examination - Vital Signs Temperature: 97.2 F Blood Pressure: 118/74 Pulse: 57 Respirations: 20 Pulse Ox (%): 98 - Physical Exam General: In no apparent distress, Oriented x1, Confused Neck: Supple, JVD not distended Respiratory: Clear to auscultation bilaterally, Normal air movement Cardiovascular: Regular rate/rhythm, Normal S1 S2 Gastrointestinal: Normal bowel sounds, Tenderness (Left lower quadrant tenderness) Musculoskeletal: No tenderness Integumentary: No rashes Neurological: Normal speech, Normal tone, Normal affect Lymphatics: No axilla or inguinal lymphadenopathy - Studies Laboratory Data (last 24 hrs) 12/03/18 18:30: Sodium 141, Potassium 4.3, BUN 30 H, Creatinine 1.80 H, Glucose 93, Magnesium 1.8 12/03/18 18:30: WBC 4.1 L, Hgb 13.6, Hct 40.0, Plt Count 150 L Medications List Reviewed: Yes Assessment And Plan - Current Problems (Diagnosis) (1) Hypertensive encephalopathy Current Visit: Yes Status: Acute Plan: Patient with acute confusion post chemotherapy with hypertensive emergency. Continues to be alert oriented x1 -head CT negative for any acute abnormality -brain MRI is also negative for any acute abnormality -carotid Dopplers and echocardiogram pending at this time -blood pressure is now within normal limits will have permissive hypertension to 160 over 90s -cardiology consulted appreciated recommendations at this time (2) HTN (hypertension) Current Visit: No Status: Acute Plan: Patient with hypertensive emergency with hypertensive encephalopathy -patient currently has blood pressure that is within normal limits -will continue to monitor closely here in the hospital -will resume home medication here in the hospital as well -cardiology is consulted. 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 Qualifiers: Laterality: unspecified laterality Qualified Code(s): C64.9 - Malignant neoplasm of unspecified kidney, except renal pelvis (4) Diabetes mellitus Current Visit: No Status: Chronic Qualifiers: Diabetes mellitus type: type 2 Diabetes mellitus fci insulin use: without fci use Diabetes mellitus complication status: without complication Qualified Code(s): E11.9 - Type 2 diabetes mellitus without complications Discharge Plan: Home Plan to discharge in: Greater than 2 days - Code Status/Comfort Care Code Status Assessed: Yes Critical Care: No
[2018-12-04] MEDS ORDERED: Magnesium Sulfate 2gm IVPB 2 G/50 ML BAG IV ONE (12:54)
--- NOTE | 2018-12-04 12:57 | RAD REPORT ---
EXAM DESCRIPTION: CT - Abdomen Pelvis Wo Contrast - 12/04/2018 12:04 pm CLINICAL HISTORY: Diffuse abdominal pain, abdominal distention, history of renal cell carcinoma with nephrectomy, history of right pelvis metastatic lesion, radiation therapy COMPARISON: CT pelvis September 25, CT pelvis July 18 TECHNIQUE: Axial [address] imaging of the abdomen and pelvis was performed without IV contrast. No IV contrast was given because of allergy, abnormal renal function, patient refusal or physician re quest. No oral contrast administered. All CT scans are performed using dose optimization technique as appropriate and may include automated exposure control or mA/KV adjustment according to patient size. FINDINGS: No suspicious findings in the lung bases. No pericardial thickening or effusion. The liver, spleen and pancreas show no suspicious findings on non-contrast imaging. Gallbladder is di stended. No biliary tree dilatation. Gallstones can be occult on CT imaging. Follow-up sonography cou ld be performed if there is concern for gallbladder process as a source for abdominal pain and disten tion. Left kidney is absent. No suspicious mass in the left renal fossa. There is a minimal amount of remna nt tissue that is believed be scarring. No left adrenal abnormality. Left adrenal gland may be absent . Right adrenal gland is normal. There is mild dilatation of the right collecting system. No obstruc ting calculus. There is a 5 mm nonobstructing calyx calcification lower pole on the right. Urinary bl adder is distended to the level of the umbilicus. No bladder wall thickening or mass. Patient has an enlarged prostate gland and there may be prostatic urethral obstruction. The right-side of the prosta te gland is prominent and projects into the bladder base. Isodense renal masses and pyelonephritis ca nnot be excluded in the absence of IV contrast. No gastric dilatation or wall thickening. No dilated large or small bowel. In the fatty tissues along each lateral margin of the distended bladder there is soft tissue stranding. On the left this abuts the sigmoid colon. Patient has some minimal diverticulosis. There is no colon wall thickening and a c olon process is not suspected. The stranding is believed to be radiation therapy related. No suspicio us mass or bulky lymphadenopathy. The patient has a known bone destructive lesion in the right lateral ilium. Between the June and august examination is the patient underwent a surgical procedure with bone screw placed into the ileum just above the acetabulum with bone cement or similar material placed into the lytic area of the metastat ic lesion. There is significant soft tissue mass surrounding the destructive bone. This soft tissue m ass component has reduced substantially from the September 25 examination. IMPRESSION: Prominent distention of the urinary bladder to the umbilical level without bladder wall mass identified. Patient has a substantially enlarged prostate gland particularly superior right joaquin in projecting into the bladder base. Urethral outlet obstruction is suspected. Correlation is needed with the PSA value for the patient. The enlarged prostate is not substantially different from August comparison study. The bladder distention is the cause for the mild right ureter dilatation. Distended gallbladder without biliary tree dilatation. Follow-up sonography could be performed if the re are concerns for an active gallbladder process. Gallstones can be occult on CT imaging. Patient has a known bone destructive lesion lateral right ilium. There has been surgical intervention between the June in August examinations. Bone findings are stable. The surrounding soft tissue mass co mponent has decreased significantly from the August examination. Volume reduction is estimated at 60%. No bowel dilatation or acute bowel finding. Full assessment is limited is the absence of IV contrast.
[2018-12-04] MEDS: D5 0.45 NS 1,000 ML IV SCH (13:08)
--- NOTE | 2018-12-04 14:02 | CON ---
Date of Consultation: 12/04/2018 Reason For Consultation: Elevated BUN and creatinine, electrolyte management, hypertension. History Of Present Illness: This is a pleasant, unfortunate 68-year-old gentleman with significant p ast medical history of hypertension; diabetes complicated with neuropathy; hyperlipidemia; coronary a rtery disease; renal cell carcinoma, status post left nephrectomy back in July, on chemotherapy rece ntly because of metastasis, patient's last chemotherapy 1 week ago. According to the family, patient since the chemotherapy started declining, decrease in intake with nausea without any vomiting. No d iarrhea. The patient has ER visit for altered mental status. At that time, MRI was negative. The p atient was sent home, but his condition did not improve. For that reason, family brought him in. In the ER, found to have blood pressure of 240, elevated BUN and creatinine. For that reason, he was a dmitted and we have been consulted. The patient over the night was placed on Cardizem drip. Blood p ressure started being better controlled. The patient more awake. The patient is still complaining o f some abdominal pain. No nausea. No vomiting. Past Medical History: 1.Hypertension. 2.Diabetes complicated with neuropathy. No retinopathy. 3.Coronary artery disease. 4.Obstructive sleep apnea. 5.Benign prostatic hypertrophy. 6.Renal cell CA, status post left nephrectomy, on chemotherapy with metastasis. Past Surgical History: PTCA, left nephrectomy. Family History: Positive for hypertension and diabetes. Social History: Ex-smoker. Active alcohol. Denies drug abuse. Home Medications: Metoprolol, amlodipine, docusate, ipratropium, , tramadol. Review of Systems: None obtainable. Patient confused. Physical Examination: Vital Signs: When I saw the patient, blood pressure of 133/88, pulse of 53, afebrile. Chest: Clear to auscultation. Heart: S1, S2. Systolic murmur. Abdomen: Tenderness on the suprapubic area with dullness reaching up to the umbilical. EXTREMITIES: No edema. NEUROLOGIC: Alert to person and place, not oriented to times. No focal. Laboratory Data: WBC 6, hemoglobin and hematocrit 14.2/42.3, platelets 103. Sodium 140, potassium 3 .9, bicarb 26, BUN 28, creatinine 1.4, calcium 8.7, magnesium 1.6. PTH 121. Cortisol level of 18. Plasma renin/janay still pending. Urinalysis; P-C ratio is 0.9. Renal ultrasound not done yet. MRI was negative. Reviewing the record for the patient, back in August, creatinine 1.3 with GFR of 55. His hemoglobin and hematocrit in August 9.5/28.3; currently on this admission, hemoglobin and hematocrit 14 .2/42.3. Assessment And Plan: 1.Acute kidney injury, multifactorial, possible secondary to hypertension emergency/obstructive urop athy/prerenal secondary to dehydration secondary to poor intake. I doubt to be secondary to toxicity from the chemo as the patient's kidney function has been improved. I am going to go ahead and send for renal ultrasound and we will change IV hydration to D5 half and we will follow up the patient. 2.Hypertension, uncontrolled. We will follow up the renal ultrasound, doubt to be Page syndrome aft er surgery. The patient currently on Cardizem drip. I will add oral amlodipine to plan to taper and discontinue the drip. 3.Obstructive uropathy. We will follow up renal ultrasound. We will place the Jordan and we will di scuss regarding resuming Flomax. 4.Hypomagnesemia. We will supplement. 5.Hypokalemia given the acute kidney injury. I do not see the need for replacement right now. Thank you Dr. Yadav for allowing us to participate in the care of your patient. MILAD Voice ID: [id number] Report ID: [id number]
--- NOTE | 2018-12-04 18:01 | RAD REPORT ---
EXAM DESCRIPTION: US - CP - 12/04/2018 5:54 pm CLINICAL HISTORY: CVA COMPARISON: None. TECHNIQUE: Real-time sonographic evaluation of both carotid systems was performed. Morrison scale and Do ppler interrogation were performed with waveform tracing bilaterally. FINDINGS: Normal high resistance waveforms are noted in both external carotid arteries. The common c arotid arteries and internal carotid arteries show normal low resistance waveforms. Calcified plaquing changes are present in each carotid bulb. On visual inspection no significant tyler nal narrowing. Peak systolic and end diastolic velocity values and the ICA/CCA ratios are in the non- hemodynamically significant range. Elevated velocities are present at each external carotid artery. E CA stenosis is not clinically significant. Antegrade flow seen in both vertebral arteries. Velocity values and ratios were recorded and are retained in the patient's imaging records. IMPRESSION: Bilateral carotid bulb calcified plaquing changes not resulting in hemodynamically signi ficant stenoses.
--- NOTE | 2018-12-04 18:03 | RAD REPORT ---
EXAM DESCRIPTION: US - Renal Ultrasound-Complete - 12/04/2018 5:54 pm CLINICAL HISTORY: Renal cell carcinoma, left nephrectomy COMPARISON: CT study same day FINDINGS: The right kidney measures 12.1 x 6.4 x 6.3 cm. The left kidney is absent. Renal cortical thickness is normal. There is a slight increase in echogenicity indicating underlying medical renal d isease. No hydronephrosis or suspicious renal mass. Jordan catheter is now in place. Bladder is decompressed from finding on CT imaging. This also resulted in decompression of the right collecting system since the CT study. IMPRESSION: No hydronephrosis or suspicious right renal mass. Slight increase in right renal cortical echogenicity supporting a mild underlying medical renal disea se.
--- NOTE | 2018-12-04 20:32 | CON ---
Date of Consultation: 12/04/2018 Reason For Consultation: Hypertensive crisis and a stroke. History Of Present Illness: Mr. Sykes is a 68-year-old male, has had a history of diabetes, hyperten veronica, dyslipidemia, coronary artery disease and he had a stent in 2000. He has actually done well fr om a cardiovascular standpoint, but he has had renal cancer, status post nephrectomy with mets to the right hip. Chemotherapy had just begun. He came in with blood pressure of 220/112 and appeared to have had a stroke, although the MRI is negative. He had a blood glucose level of 143, creatinine was 1.49. EKG shows sinus bradycardia, right bundle-branch block. He was on a Cardene drip and blood p ressure went down to 110 and this was discontinued. No cardiac symptoms reported. Past Medical History: As stated above. Allergies: NONE. Review of Systems: Negative. Social History: Negative. Family History: Negative. Medications At Home: Crestor, inhalers, and metoprolol and just recently started chemotherapy. Physical Examination: General: Mr. Sykes was rather obtunded. Vital Signs: Stable. He was afebrile. He was in a sinus rhythm. HEENT: Negative. Neck: Supple with no bruit, lymphadenopathy, JVD, or thyromegaly. Chest: Clear to auscultation and percussion. Cardiac: Regular rhythm and rate. No murmurs, gallops, or rubs. Abdomen: Benign. Extremities: No clubbing, cyanosis, or edema. Diagnostic Data: As stated earlier. Impression And Plan: 1.Cerebrovascular accident. 2.Hypertensive crisis. 3.Dyslipidemia. 4.Renal insufficiency. 5.Diabetes. 6.Hypertension. 7.Coronary artery disease, status post stent in 2000. 8.Renal cancer, status post nephrectomy with metastasis to the bone, on chemotherapy. I agree with his present management right now. We certainly need to avoid his blood pressure being t oo low. Neurology have been consulted, but they have not seen him yet. An echocardiogram is pending . I would like him to get a carotid Doppler as well. Continue medical therapy for now as is. We wi ll continue to follow him. LETICIA/JASSON Voice ID: [id number] Report ID: [id number]
[2018-12-04] MEDS ORDERED: TAMSULOSIN 0.4 MG SR CAP PO SCH (21:00)
[2018-12-04] MEDS: ROSUVASTATIN 10 MG TAB PO SCH (21:28)
[2018-12-05] MEDS: D5 0.45 NS 1,000 ML IV SCH (03:25)
[2018-12-05 05:21] VITALS: BMI 28.0
[2018-12-05 06:04] LABS: Absolute Lymphocytes (CBC) 1.6 K/uL (0.7-4.9); Basophils % 0.4 % (0-1.3); Hematocrit 36.6 % (39.6-49.0); Lymphocytes % 39.3 % (15.3-44.8); MPV 7.3 fL (7.6-11.3); RBC Red Blood Cell Count 4.13 M/uL (4.33-5.43)
[2018-12-05 06:20] LABS: Albumin 3.2 g/dL (3.4-5.0); Bilirubin Total 0.5 mg/dL (0.2-1.0); Magnesium 2.5 mg/dL (1.8-2.4); Phosphorus 4.1 mg/dL (2.5-4.9); Potassium 4.2 mmol/L (3.5-5.1); Protein, Total 6.8 g/dL (6.4-8.2)
[2018-12-05] MEDS: INSULIN -REGULAR HUMAN 50 UNIT/0.5 ML ML SQ SCH ×4 (07:30→21:00)
--- NOTE | 2018-12-05 07:30 | ECHO ---
HEIGHT: 6 ft 0 in WEIGHT: 207 lb 0 oz DATE OF STUDY: 12/04/[address]: Kali Chiu DO 2-DIMENSIONAL: YES M.MODE: YES DOPPLER: YES COLOR FLOW: YES TDS: PORTABLE: DEFINITY: BUBBLE STUDY: DIAGNOSIS: HYPERTENSION CARDIAC HISTORY: CATHERIZATION: NO SURGERY: NO PROSTHETIC VALVE: NO PACEMAKER: NO MEASUREMENTS (cm) DIASTOLIC (NORMALS) SYSTOLIC (NORMALS) IVSd 1.3 (0.6-1.2) LA Diam 3.2 (1.9-4.0) LVEF 52% LVIDd 4.3 (3.5-5.7) LVIDs 3.2 (2.0-3.5) %FS 26% LVPWd 1.4 (0.6-1.2) Ao Diam 3.6 (2.0-3.7) 2 DIMENSIONAL ASSESSMENT: RIGHT ATRIUM: NORMAL LEFT ATRIUM: NORMAL RIGHT VENTRICLE: NORMAL LEFT VENTRICLE: LEFT VENTRICULAR HYPERTROPHY TRICUSPID VALVE: NORMAL MITRAL VALVE: NORMAL PULMONIC VALVE: NORMAL AORTIC VALVE: NORMAL PERICARDIAL EFFUSION: NONE AORTIC ROOT: NORMAL LEFT VENTRICULAR WALL MOTION: DECREASED LEFT VENTRICULAR COMPLIANCE. DOPPLER/COLOR FLOW: MILD TRICUSPID REGURGITATION. COMMENTS: LEFT VENTRICULAR HYPERTROPHY. MILD TRICUSPID REGURGITATION. NORMAL EJECTION FRACTION. DECREASED LEFT VENTRICULAR COMPLIANCE. TECHNOLOGIST: ALECIA GONZALEZ
--- NOTE | 2018-12-05 08:35 | PN ---
He is starting to wake up. He can speak now. He has dysarthria, not aphasia. 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 His b lood pressure is better now. Labs are looking better. Neuro consult is still pending at this point. JAN/JASSON Voice ID: [id number] Report ID: [id number]
[2018-12-05] MEDS: ACETAMINOPHEN 500 MG TAB PO PRN ×3 (09:27→22:18)
[2018-12-05] MEDS: AMLODIPINE 10 MG TAB PO SCH (09:28)
[2018-12-05] MEDS: METOPROLOL TAR 50 MG TAB PO SCH ×2 (09:28→22:18)
[2018-12-05] MEDS: ENOXAPARIN 30 MG/0.3 ML SQ SCH (09:28)
--- NOTE | 2018-12-05 11:10 | P.PN ---
Subjective Date of Service: 12/05/18 Primary Care Provider: Dr. Dobbins; Oncology-[facility] Chief Complaint: Headache, aphasia Patient seen and examined at bedside with RN. Chart reviewed. Case discussed with cardiology at this time. Patient is alert and oriented x3 this morning. No complaints to offer overnight. Doing well here in the hospital Review of Systems 10-point ROS is otherwise unremarkable Physical Examination - Vital Signs Temperature: 97.1 F Blood Pressure: 143/71 Pulse: 67 Respirations: 12 Pulse Ox (%): 98 - Physical Exam General: Alert, In no apparent distress HEENT: Atraumatic, PERRLA, EOMI Neck: Supple, JVD not distended Respiratory: Clear to auscultation bilaterally, Normal air movement Cardiovascular: Regular rate/rhythm, Normal S1 S2 Gastrointestinal: Normal bowel sounds, No tenderness Musculoskeletal: No tenderness Integumentary: No rashes Neurological: Normal speech, Normal tone, Normal affect Lymphatics: No axilla or inguinal lymphadenopathy - Studies Medications List Reviewed: Yes Assessment And Plan - Current Problems (Diagnosis) (1) Hypertensive encephalopathy Current Visit: Yes Status: Acute Plan: Patient with acute confusion post chemotherapy with hypertensive emergency. Continues to be alert oriented x1 -head CT negative for any acute abnormality -brain MRI is also negative for any acute abnormality -carotid Doppler negative for any acute abnormality. Echocardiogram within normal limits as well -blood pressure is now within normal limits will have permissive hypertension to 160 over 90s -cardiology consulted appreciated recommendations at this time -neurology has been consulted however not available until Saturday (2) HTN (hypertension) Current Visit: No Status: Acute Plan: Patient with hypertensive emergency with hypertensive encephalopathy -patient currently has blood pressure that is within normal limits -Now on home medication here in the hospital as well -cardiology is consulted. 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 Qualifiers: Laterality: unspecified laterality Qualified Code(s): C64.9 - Malignant neoplasm of unspecified kidney, except renal pelvis (4) Diabetes mellitus Current Visit: No Status: Chronic Qualifiers: Diabetes mellitus type: type 2 Diabetes mellitus [facility] insulin use: without [facility] use Diabetes mellitus complication status: without complication Qualified Code(s): E11.9 - Type 2 diabetes mellitus without complications Discharge Plan: Home Plan to discharge in: Greater than 2 days - Code Status/Comfort Care Code Status Assessed: Yes Critical Care: No
[2018-12-05] MEDS: TAMSULOSIN 0.4 MG SR CAP PO SCH (11:35)
--- NOTE | 2018-12-05 11:50 | PN ---
Date of Progress Note: 12/05/2018 Chief Complaint: Acute kidney injury, diabetic kidney disease, uncontrolled hypertension, hypertensi ve emergency. History Of Present Illness: The patient has history of multiple medical problems including history o f hypertension, diabetes mellitus, coronary artery disease, sleep apnea, renal cell carcinoma, status post nephrectomy on chemotherapy with metastatic disease. The patient is admitted to ICU for uncont rolled hypertension, acute kidney injury with bladder outlet obstruction. He had a Jordan catheter pl aced due to significant retention and 1500 mL was drained of urine after Jordan was placed. Baseline creatinine in August was 1.3. On presentation to the hospital, creatinine was up to 1.4 and BU N 28. Blood pressure has not been well controlled and workup is initiated to check plasma renin janay sterone ratio and results are pending. Review of Systems: The patient denies fever or chills. Physical Examination: Lungs: Clear to auscultation bilaterally. Heart: S1 and S2. Abdomen: Soft and benign. Extremities: No edema. Impression And Plan: 1.Acute kidney injury, multifactorial, secondary to hypertensive emergency obstructive uropathy and volume depletion. The patient denies nonsteroidal anti-inflammatory medication. Renal ultrasound wa s ordered to check kidney size and rule out etiology. The patient has Jordan catheter. Plan is to re move Jordan catheter and start Flomax. 2.Hypertension. Renal ultrasound is pending. Continue Cardizem drip. Check renal artery for possi ble stenosis. 3.Hypomagnesemia. Supplementation as needed. 4.Hypokalemia. Workup is pending to rule out hyperaldosteronism. JOANA/JASSON Voice ID: [id number] Report ID: [id number]
[2018-12-05] MEDS ORDERED: TOPIRAMATE 25 MG TAB PO ONE (14:00)
[2018-12-05] MEDS: ROSUVASTATIN 10 MG TAB PO SCH (22:17)
[2018-12-06 05:33] LABS: Absolute Lymphocytes (CBC) 1.7 K/uL (0.7-4.9); Basophils % 0.5 % (0-1.3); Hematocrit 36.2 % (39.6-49.0); Lymphocytes % 44.3 % (15.3-44.8); MPV 7.3 fL (7.6-11.3); RBC Red Blood Cell Count 4.06 M/uL (4.33-5.43)
[2018-12-06 06:00] LABS: Albumin 3.2 g/dL (3.4-5.0); Bilirubin Total 0.3 mg/dL (0.2-1.0); Magnesium 2.1 mg/dL (1.8-2.4); Phosphorus 3.6 mg/dL (2.5-4.9); Potassium 4.3 mmol/L (3.5-5.1); Protein, Total 6.9 g/dL (6.4-8.2)
[2018-12-06] MEDS: INSULIN -REGULAR HUMAN 50 UNIT/0.5 ML ML SQ SCH ×4 (07:30→21:00)
--- NOTE | 2018-12-06 11:04 | P.PN ---
Subjective Date of Service: 12/06/18 Primary Care Provider: Dr. Dobbins; Oncology-[facility] Chief Complaint: Headache, aphasia Patient seen and examined at bedside with RN. Chart reviewed. Case discussed with cardiology at this time. Patient is alert and oriented x3 this morning. No complaints to offer overnight. Doing well here in the hospital Review of Systems 10-point ROS is otherwise unremarkable Physical Examination - Vital Signs Temperature: 97.9 F Blood Pressure: 147/70 Pulse: 57 Respirations: 18 Pulse Ox (%): 99 - Physical Exam General: Alert, In no apparent distress HEENT: Atraumatic, PERRLA, EOMI Neck: Supple, JVD not distended Respiratory: Clear to auscultation bilaterally, Normal air movement Cardiovascular: Regular rate/rhythm, Normal S1 S2 Gastrointestinal: Normal bowel sounds, No tenderness Musculoskeletal: No tenderness Integumentary: No rashes Neurological: Normal speech, Normal tone, Normal affect Lymphatics: No axilla or inguinal lymphadenopathy - Studies Medications List Reviewed: Yes Assessment And Plan - Current Problems (Diagnosis) (1) Hypertensive encephalopathy Current Visit: Yes Status: Acute Plan: Patient with acute confusion post chemotherapy with hypertensive emergency. Now AAOx2 -head CT negative for any acute abnormality -brain MRI is also negative for any acute abnormality -carotid Doppler negative for any acute abnormality. Echocardiogram within normal limits as well -blood pressure is now within normal limits will have permissive hypertension to 160 over 90s -cardiology consulted appreciated recommendations at this time -neurology has been consulted however not available until Saturday -Will monitor here and await neurology consultation. -Pt working PT/OT and may need SNF vs (2) HTN (hypertension) Current Visit: No Status: Acute Plan: Patient with hypertensive emergency with hypertensive encephalopathy -patient currently has blood pressure that is within normal limits -Now on home medication here in the hospital as well -cardiology is consulted. Appreciated recommendations Qualifiers: Hypertension type: essential hypertension Qualified Code(s): I10 - Essential (primary) hypertension (3) Renal cell carcinoma Current Visit: Yes Status: Chronic Plan: Patient with stage IV renal cell carcinoma with left-sided nephrectomy -recently with chemotherapy -most likely current symptoms side effect from his chemotherapy Qualifiers: Laterality: unspecified laterality Qualified Code(s): C64.9 - Malignant neoplasm of unspecified kidney, except renal pelvis (4) Diabetes mellitus Current Visit: No Status: Chronic Qualifiers: Diabetes mellitus type: type 2 Diabetes mellitus [facility] insulin use: without longwall shearer 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 Working with PT/OT. Awaiting Neurology consultation on Saturday Discharge Plan: Home Plan to discharge in: Greater than 2 days - Code Status/Comfort Care Code Status Assessed: Yes Critical Care: No
--- NOTE | 2018-12-06 11:15 | PN ---
Mr. Sykes has much better neurological status. Blood pressure improved but with beta blockers and ca lcium blockers. His blood pressure is still elevated. I will recommend we add an angiotensin recept or indu. His creatinine is acceptable for trying that and his creatinine could improve while on a n angiotensin receptor indu. Neurology consult is still pending. No evidence of carotid stenosis or intracranial blockage or stroke according to MRI criteria, so I think he had neurological dysfunc tion from hypertensive crisis. We will try and get his blood pressure a little lower than it is. JAN/JASSON Voice ID: [id number] Report ID: [id number]
[2018-12-06] MEDS: METOPROLOL TAR 50 MG TAB PO SCH ×2 (11:16→22:30)
[2018-12-06] MEDS: ACETAMINOPHEN 500 MG TAB PO PRN (11:16)
[2018-12-06] MEDS: TAMSULOSIN 0.4 MG SR CAP PO SCH (11:19)
[2018-12-06] MEDS: ENOXAPARIN 30 MG/0.3 ML SQ SCH (11:19)
[2018-12-06] MEDS: AMLODIPINE 10 MG TAB PO SCH (11:19)
--- NOTE | 2018-12-06 11:30 | PN ---
Mr. Sykes has much better neurological status. Blood pressure improved but with beta blockers and ca lcium blockers. His blood pressure is still elevated. I will recommend we add an angiotensin recept or indu. His creatinine is acceptable for trying that and his creatinine could improve while on a n angiotensin receptor indu. Neurology consult is still pending. No evidence of carotid stenosis or intracranial blockage or stroke according to MRI criteria, so I think he had neurological dysfunc tion from hypertensive crisis. We will try and get his blood pressure a little lower than it is. JAN/JASSON Voice ID: [id number] Report ID: [id number]
[2018-12-06] MEDS: VALSARTAN 160 MG TAB PO SCH (12:18)
[2018-12-06] MEDS: ROSUVASTATIN 10 MG TAB PO SCH (22:30)
--- NOTE | 2018-12-06 22:54 | PN ---
Date of Progress Note: 12/06/2018 Chief Complaint: Chronic kidney disease, solitary kidney, diabetic kidney disease, uncontrolled hype rtension, urinary retention. Patient was admitted to the hospital because of uncontrolled hypertensi on. Patient was treated with IV drip in ICU for uncontrolled hypertension. He had Jordan catheter pl aced due to significant urinary retention. Patient is alert and catheter was removed today. He jr es lower urinary tract symptoms. Review of Systems: Denies fever, chills. Physical Examination: Lungs: Clear to auscultation bilaterally. Heart: S1, S2. Abdomen: Soft, benign, nontender. Extremities: No edema. Laboratory Data: Hemoglobin 12.1, WBC 3.9, platelet count is 107,000. Chemistries showed sodium 143 , potassium 4.3, chloride 110, CO2 of 28, BUN 26, creatinine 1.54, glucose 116, calcium 8.7, phosphor us 3.6, magnesium 2.1. Impression And Plan: 1.Acute on chronic kidney injury secondary to prerenal azotemia with complicated trace of urinary re tention. Patient has solitary kidney. Monitor renal function. Avoid nephrotoxic medication. Renal function is somewhat improving. 2.Hypertension. Blood pressure controlled. Continue medication and low-sodium diet. 3.Hypokalemia. Workup is pending to rule out hyperaldosteronism. Hypomagnesemia supplementation as needed. Monitor magnesium level. EB/MODL Voice ID: [id number] Report ID: [id number]
[2018-12-07] MEDS: VALSARTAN 160 MG TAB PO SCH (06:23)
[2018-12-07] MEDS: ACETAMINOPHEN 500 MG TAB PO PRN (06:28)
[2018-12-07 06:35] LABS: Albumin 3.2 g/dL (3.4-5.0); Phosphorus 3.1 mg/dL (2.5-4.9); Potassium 3.9 mmol/L (3.5-5.1)
[2018-12-07] MEDS: INSULIN -REGULAR HUMAN 50 UNIT/0.5 ML ML SQ SCH ×4 (07:30→21:14)
[2018-12-07] MEDS ORDERED: POTASSIUM CL SA 10 MEQ TAB PO ONE (09:00)
[2018-12-07] MEDS: ENOXAPARIN 30 MG/0.3 ML SQ SCH (10:03)
[2018-12-07] MEDS: AMLODIPINE 10 MG TAB PO SCH (10:03)
[2018-12-07] MEDS: METOPROLOL TAR 50 MG TAB PO SCH ×2 (10:03→21:13)
[2018-12-07] MEDS: TAMSULOSIN 0.4 MG SR CAP PO SCH (10:05)
--- NOTE | 2018-12-07 11:41 | P.PN ---
Subjective Date of Service: 12/07/18 Primary Care Provider: Dr. Dobbins; Oncology-[facility] Chief Complaint: Headache, aphasia Patient seen and examined at bedside with RN. Chart reviewed. Case discussed with cardiology at this time. Patient is alert and oriented x3 this morning. No complaints to offer overnight. Doing well here in the hospital Review of Systems 10-point ROS is otherwise unremarkable Physical Examination - Vital Signs Temperature: 97.3 F Blood Pressure: 152/79 Pulse: 60 Respirations: 20 Pulse Ox (%): 98 - Physical Exam General: Alert, In no apparent distress HEENT: Atraumatic, PERRLA, EOMI Neck: Supple, JVD not distended Respiratory: Clear to auscultation bilaterally, Normal air movement Cardiovascular: Regular rate/rhythm, Normal S1 S2 Gastrointestinal: Normal bowel sounds, No tenderness Musculoskeletal: No tenderness Integumentary: No rashes Neurological: Normal speech, Normal tone, Normal affect Lymphatics: No axilla or inguinal lymphadenopathy - Studies Medications List Reviewed: Yes Assessment And Plan - Current Problems (Diagnosis) (1) Hypertensive encephalopathy Current Visit: Yes Status: Acute Plan: Patient with acute confusion post chemotherapy with hypertensive emergency. Now AAOx2 -head CT negative for any acute abnormality -brain MRI is also negative for any acute abnormality -carotid Doppler negative for any acute abnormality. Echocardiogram within normal limits as well -blood pressure is now within normal limits will have permissive hypertension to 160 over 90s -cardiology consulted appreciated recommendations at this time -neurology has been consulted however not available until Saturday -Will monitor here and await neurology consultation. -Pt working PT/OT and may need SNF vs (2) HTN (hypertension) Current Visit: No Status: Acute Plan: Patient with hypertensive emergency with hypertensive encephalopathy -patient currently has blood pressure that is within normal limits -Now on home medication here in the hospital as well -cardiology is consulted. Appreciated recommendations Qualifiers: Hypertension type: essential hypertension Qualified Code(s): I10 - Essential (primary) hypertension (3) Renal cell carcinoma Current Visit: Yes Status: Chronic Plan: Patient with stage IV renal cell carcinoma with left-sided nephrectomy -recently with chemotherapy -most likely current symptoms side effect from his chemotherapy Qualifiers: Laterality: unspecified laterality Qualified Code(s): C64.9 - Malignant neoplasm of unspecified kidney, except renal pelvis (4) Diabetes mellitus Current Visit: No Status: Chronic Qualifiers: Diabetes mellitus type: type 2 Diabetes mellitus residential insulin use: without buttermaker helper use Diabetes mellitus complication status: without complication Qualified Code(s): E11.9 - Type 2 diabetes mellitus without complications - Plan Pending clinical Improvement. Working with PT/OT. Awaiting Neurology consultation on Saturday Discharge Plan: Home Plan to discharge in: Greater than 2 days - Code Status/Comfort Care Code Status Assessed: Yes Critical Care: No
[2018-12-07] MEDS: ROSUVASTATIN 10 MG TAB PO SCH (21:13)
[2018-12-07] MEDS ORDERED: AMLODIPINE 5 MG TAB PO ONE (21:40)
--- NOTE | 2018-12-07 22:29 | PN ---
Date of Progress Note: 12/07/2018 Chief Complaint: Uncontrolled hypertension, urinary retention. Patient was admitted to the hospital because of generalized weakness. He was found to have severe hypertension and was on the drip with IV blood pressure medication for uncontrolled hypertension. Patient required Jordan catheter for sign ificant urinary retention. Patient currently denies lower urinary tract symptoms. Jordan catheter wa s removed. Review of Systems: Denies fever, chills. Physical Examination: Lungs: Clear to auscultation bilaterally. Heart: S1, S2. Abdomen: Soft, benign, nontender. Extremities: No edema. Laboratory Data: Hemoglobin 12.1, WBC 3.9, platelet count is 107,000. Chemistry showed sodium 143, potassium 3.9, chloride 109, CO2 of 28, BUN is 26, creatinine 1.73, glucose 129, albumin 3.2, calcium 8.7. Impression And Plan: 1.Acute on chronic kidney injury. Patient has chronic kidney disease stage 3, solitary kidney. Glenn id nephrotoxic medication. Continue IV fluids. Patient was found to have urinary retention. Contin ue Flomax. Jordan catheter was removed. Patient denies lower urinary tract symptoms. 2.Hypertension. Blood pressure is elevated. Advance blood pressure medication. 3.Monitor electrolytes, phosphorus. Magnesium level was within normal limits. 4.Hypokalemia, resolved. Workup is pending to rule out hyperaldosteronism. Hypomagnesemia replacem ent as needed. JOANA/JASSON Voice ID: [id number] Report ID: [id number]
[2018-12-08 06:29] LABS: Albumin 3.5 g/dL (3.4-5.0); Phosphorus 3.6 mg/dL (2.5-4.9); Potassium 4.5 mmol/L (3.5-5.1)
[2018-12-08] MEDS: AMLODIPINE 10 MG TAB PO SCH (09:28)
[2018-12-08] MEDS: METOPROLOL TAR 50 MG TAB PO SCH ×2 (09:45→21:54)
[2018-12-08] MEDS: VALSARTAN 160 MG TAB PO SCH (09:46)
[2018-12-08] MEDS: TAMSULOSIN 0.4 MG SR CAP PO SCH (09:46)
[2018-12-08] MEDS: ENOXAPARIN 30 MG/0.3 ML SQ SCH (09:46)
[2018-12-08] MEDS: INSULIN -REGULAR HUMAN 50 UNIT/0.5 ML ML SQ SCH ×4 (09:47→21:00)
--- NOTE | 2018-12-08 14:59 | P.PN ---
Subjective Date of Service: 12/08/18 Primary Care Provider: Dr. Dobbins; Oncology-[facility] Chief Complaint: Headache, aphasia Subjective: No C/O voiced, Tolerating diet, Ambulating, Improving, Working w/ PT Review of Systems 10-point ROS is otherwise unremarkable Physical Examination - Vital Signs Temperature: 97.5 F Blood Pressure: 159/79 Pulse: 66 Respirations: 18 Pulse Ox (%): 99 - Physical Exam General: Alert, In no apparent distress, Oriented x3 HEENT: Atraumatic, PERRLA, EOMI Neck: Supple, JVD not distended Respiratory: Clear to auscultation bilaterally, Normal air movement Cardiovascular: Regular rate/rhythm, Normal S1 S2 Gastrointestinal: Normal bowel sounds, No tenderness Musculoskeletal: No tenderness Integumentary: No rashes Neurological: Normal speech, Normal tone, Normal affect Lymphatics: No axilla or inguinal lymphadenopathy - Studies Medications List Reviewed: Yes Assessment And Plan - Current Problems (Diagnosis) (1) Hypertensive encephalopathy Current Visit: Yes Status: Resolved Plan: Patient with acute confusion post chemotherapy with hypertensive emergency. Now AAOx3, back to baseline. -head CT negative for any acute abnormality -brain MRI is also negative for any acute abnormality -carotid Doppler negative for any acute abnormality. Echocardiogram within normal limits as well -blood pressure is now within normal limits will have permissive hypertension to 160 over 90s -cardiology consulted appreciated recommendations at this time -neurology has been consulted, awaiting recommendations -Will monitor here and await neurology consultation. -Pt working with PT/OT, doing well. (2) Acute kidney injury Current Visit: Yes Status: Acute Plan: Improving. Likely secondary to hypertension - continue IV hydration - continue to monitor, avoid nephrotoxic medications. (3) Renal cell carcinoma Current Visit: Yes Status: Chronic Plan: Patient with stage IV renal cell carcinoma with left-sided nephrectomy -recently with chemotherapy -most likely current symptoms side effect from his chemotherapy Qualifiers: Laterality: unspecified laterality Qualified Code(s): C64.9 - Malignant neoplasm of unspecified kidney, except renal pelvis (4) HTN (hypertension) Current Visit: No Status: Acute Plan: Patient with hypertensive emergency with hypertensive encephalopathy, now improved. -patient currently has blood pressure that is within normal limits -Now on home medication here in the hospital as well -cardiology is consulted. Appreciated recommendations Qualifiers: Hypertension type: essential hypertension Qualified Code(s): I10 - Essential (primary) hypertension (5) Diabetes mellitus Current Visit: No Status: Chronic Qualifiers: Diabetes mellitus type: type 2 Diabetes mellitus long term care administrator insulin use: without long term care administrator use Diabetes mellitus complication status: without complication Qualified Code(s): E11.9 - Type 2 diabetes mellitus without complications - Plan Disposition: Pending clinical Improvement. Working with PT/OT. Awaiting Neurology consultation. Anticipate discharge in the next 24 hr.
[2018-12-08] MEDS: ROSUVASTATIN 10 MG TAB PO SCH (21:54)
[2018-12-08 23:25] VITALS: O2SAT 95
--- NOTE | 2018-12-09 01:46 | PN ---
Date of Progress Note: 12/08/2018 Chief Complaint: Acute on chronic kidney injury. History Of Present Illness: Patient has multiple medical problems including history of chronic kidne y disease stage 3, solitary kidney. Patient was found to have urinary retention. Jordan catheter was placed and subsequently removed. Patient was started on Flomax. Lower urinary tract symptoms have been in good control. Kidney function is stabilizing and . Electrolytes are stable. Patient does not have metab olic acidosis. Hypertension, uncontrolled, accelerated. Patient was on an IV drip for blood pressure control. Review of Systems: Patient denies fever or chills. Physical Examination: Lungs: Clear to auscultation bilaterally. Heart: S1, S2. Abdomen: Soft, benign. Extremities: No edema. Laboratory Data: Blood work: Hemoglobin 12.1, WBC 3.9, platelet count 107,000. Chemistry showed so dium 142, potassium 4.5, chloride 107, CO2 of 29, BUN 23, creatinine 1.55, glucose 128, calcium 8.9, phosphorus 3.6. Impression And Plan: 1.Acute on chronic kidney injury. Renal function is somewhat improving over the last several days. Creatinine level improved from 1.8 to 1.55. Patient has chronic kidney stage 3. Urinary retention. Patient will continue Flomax. 2.Hypertension. continue low-sodium diet and blood pressure medication. Avoid nephrotoxic medication. 3.Hypokalemia. Pending workup for hyper-aldosterone. JOANA/MODL Voice ID: [id number] Report ID: [id number]
[2018-12-09 04:24] LABS: Albumin 3.3 g/dL (3.4-5.0); Phosphorus 3.5 mg/dL (2.5-4.9); Potassium 4.2 mmol/L (3.5-5.1)
[2018-12-09] MEDS: INSULIN -REGULAR HUMAN 50 UNIT/0.5 ML ML SQ SCH ×2 (07:30→11:30)
[2018-12-09] MEDS: ENOXAPARIN 30 MG/0.3 ML SQ SCH (09:00)
[2018-12-09] MEDS: AMLODIPINE 10 MG TAB PO SCH (09:22)
[2018-12-09] MEDS: TAMSULOSIN 0.4 MG SR CAP PO SCH (09:22)
[2018-12-09] MEDS: METOPROLOL TAR 50 MG TAB PO SCH (09:22)
[2018-12-09] MEDS: VALSARTAN 160 MG TAB PO SCH (09:22)
--- NOTE | 2018-12-09 11:30 | P.DS ---
Admission Date: 12/03/18 Discharge Date: 12/09/18 Primary Care Provider: Dr. Dobbins; Oncology-[facility] Disposition: ROUTINE DISCHARGE Discharge Condition: GOOD Reason for Admission: Headache, aphasia Consultations: Cardiology Nephrology - Problems (1) Hypertensive encephalopathy Current Visit: Yes Status: Resolved (2) Acute kidney injury Current Visit: Yes Status: Acute (3) Renal cell carcinoma Current Visit: Yes Status: Chronic Qualifiers: Laterality: unspecified laterality Qualified Code(s): C64.9 - Malignant neoplasm of unspecified kidney, except renal pelvis (4) HTN (hypertension) Current Visit: No Status: Chronic Qualifiers: Hypertension type: essential hypertension Qualified Code(s): I10 - Essential (primary) hypertension (5) Diabetes mellitus Current Visit: No Status: Chronic Qualifiers: Diabetes mellitus type: type 2 Diabetes mellitus marine oil terminal superintendent insulin use: without marine oil terminal superintendent use Diabetes mellitus complication status: without complication Qualified Code(s): E11.9 - Type 2 diabetes mellitus without complications Brief History of Present Illness: 68-year-old male with multiple medical problems including hypertension , diabetes mellitus type 2 insulin dependent, CAD, hyperlipidemia and recent diagnosis of renal cell carcinoma stage IV with left nephrectomy. Patient was brought in by family. Family reports that about a week ago patient started to have some aphasia off and on. He did not go to the ER. Family also reports that since being diagnose with renal cell carcinoma stage IV he has had a left nephrectomy. He recently started chemotherapy-Pembrolizumab 3 weeks ago. He his last chemotherapy was last week. Family has noted since starting chemotherapy he has had decreased appetite, poor mobility. It appears that he has been declining in health. He went to see his PCP today due to the aphasia and other symptoms. He was sent for an MRI brain without contrast which was unremarkable for acute abnormality. His symptoms persisted to the point to where he came to the ER. In the ER blood pressures were elevated with a systolic in the 240 range. Patient was given clonidine with improvement. But he required more medication including hydralazine. He start to have some severe headache. He was then given morphine. This made him agitated. Since that time he has been getting several doses of Ativan for agitation. At this time. Cardene drip has been initiated for better blood pressure control. On lab white count 4.1, hemoglobin 13.6. Sodium 141, potassium 4.3. BUN of 30, creatinine 1.8 with a GFR 37. Glucose 93. Urinalysis shows no evidence of bacteria. MRI brain without contrast was repeated. No changes were noted. CT head will be done to rule out bleed. Patient was admitted to ICU to further manage and evaluate his condition. When I saw the patient ER, he appeared agitated. He was not able to speak. He was able to move all 4s. Family at bedside. I was able to speak to his sons who reported decrease appetite and worsening health since starting chemotherapy. Family reports blood pressure at PCP office was within normal range. Hospital Course: Patient was admitted to the ICU for close monitoring for his confusion and his blood pressure. He was started on IV Cardene drip. Cardiology was consulted. CT of the head and MRI of the head were without any acute changes. Carotid ultrasound and imaging was negative for any acute abnormalities. He was then transferred to the floor, once hemodynamically stable. Echocardiogram was done , which was also normal. His blood pressure is improved and normalized. Nephrology was consulted for his acute renal insufficiency on top of his chronic kidney disease, stage III, likely secondary to dehydration. His creatinine remained elevated but continued to improve. Over the course of the stay, his mentation improved, and returned back to baseline. He otherwise remained stable throughout the stay. Prior to discharge, he was alert oriented x4, in no acute distress. He was working really well with physical therapy, and was back to baseline. His diagnoses and treatment plan explained to him. All questions were answered and she verbalized understanding. He was then discharged home in a safe and stable manner. He was instructed to follow up with his primary physician in 2-3 days for followup lab work. He was also instructed to follow up with his oncologist for further management of his stage IV renal cell carcinoma. Vital Signs/Physical Exam: Temp Pulse Resp BP Pulse Ox 97.3 F 67 18 139/70 98 12/09/18 08:00 12/09/18 09:22 12/09/18 08:00 12/09/18 09:22 12/09/18 08:00 General: Alert, In no apparent distress, Oriented x3 HEENT: Atraumatic, PERRLA, EOMI Neck: Supple, JVD not distended Respiratory: Clear to auscultation bilaterally, Normal air movement Cardiovascular: Regular rate/rhythm, Normal S1 S2 Gastrointestinal: Normal bowel sounds, No tenderness Musculoskeletal: No tenderness Integumentary: No rashes Neurological: Normal speech, Normal tone, Normal affect Lymphatics: No axilla or inguinal lymphadenopathy Laboratory Data at Discharge: WBC 3.9 K/uL (4.3-10.9) L 12/06/18 05:01 Hgb 12.1 g/dL (13.6-17.9) L 12/06/18 05:01 Hct 36.2 % (39.6-49.0) L 12/06/18 05:01 Plt Count 107 K/uL (152-406) L 12/06/18 05:01 Sodium 144 mmol/L (136-145) 12/09/18 04:01 Potassium 4.2 mmol/L (3.5-5.1) 12/09/18 04:01 BUN 23 mg/dL (7-18) H 12/09/18 04:01 Creatinine 1.45 mg/dL (0.55-1.3) H 12/09/18 04:01 Glucose 129 mg/dL (74-106) H 12/09/18 04:01 Uric Acid 7.5 mg/dL (3.5-7.2) H 12/04/18 08:05 Phosphorus 3.5 mg/dL (2.5-4.9) 12/09/18 04:01 Magnesium 2.1 mg/dL (1.8-2.4) 12/06/18 05:01 Total Bilirubin 0.3 mg/dL (0.2-1.0) 12/06/18 05:01 AST 15 U/L (15-37) 12/06/18 05:01 ALT 15 U/L (12-78) 12/06/18 05:01 Alkaline Phosphatase 67 U/L (45-117) 12/06/18 05:01 Triglycerides 218 mg/dL (<150) H 12/04/18 04:43 Cholesterol 136 mg/dL (<200) 12/04/18 04:43 HDL Cholesterol 32 mg/dL (40-60) L 12/04/18 04:43 Cholesterol/HDL Ratio 4.25 12/04/18 04:43 Home Medications: Folic Acid 1 mg PO DAILY 08/25/18 Rosuvastatin [Crestor*] 20 mg PO BEDTIME 12/05/18 Amlodipine [Norvasc*] 10 mg PO DAILY #30 tab 12/09/18 Metoprolol Tartrate [Lopressor*] 50 mg PO BID #60 tab 12/09/18 Valsartan/Hydrochlorothiazide [Diovan Hct 160-12.5 mg Tab] 1 each PO DAILY #30 tablet 12/09/18 New Medications: Amlodipine [Norvasc*] 10 mg PO DAILY #30 tab Metoprolol Tartrate [Lopressor*] 50 mg PO BID #60 tab Valsartan/Hydrochlorothiazide [Diovan Hct 160-12.5 mg Tab] 1 each PO DAILY #30 tablet Patient Discharge Instructions: Please follow up with the primary care physician in 2-3 days. Please follow up with Nephrology in 2 weeks. Information provided to you. Please return to the emergency room for worsening symptoms. Diet: Low sodium Activity: Ad burak Followup: Juma Dobbins MD [Primary Care Provider] - 2-3 Days Aguila Edwards MD [ACTIVE - CAN ADMIT] - 1-2 Weeks Gonzalez Fish MD [ASSOCIATE-ACTIVE - CAN ADMIT] - If your Condition Changes Bernie Tovar MD [ACTIVE - CAN ADMIT] - 1-2 Weeks Time spent managing pt's care (in minutes): 55
[2018-12-09 12:39] VITALS: BP 150/73; TEMP 97.6
--- NOTE | 2018-12-09 17:22 | PN ---
Date of Progress Note: 12/09/2018 Subjective: Patient was admitted with shock, acute kidney injury secondary to poor perfusion, ATN se condary to low blood pressure, solitary kidney. Physical Examination: Vital Signs: Blood pressure 150/73, pulse of 60. Chest: Clear to auscultation. Heart: S1, S2, regular. Abdomen: Soft, nontender. Extremities: No edema. Laboratory Data: WBC 3.9, H and H 12.1/36.2, platelet 107. Sodium of 144, potassium 4.2, bicarb 27, BUN 23, creatinine down to 1.4, GFR of 48, calcium 8.6, phosphorus 3.5. Medications: Current medications the patient on include: 1.Lovenox. 2.Flomax. 3.Norvasc. 4.Metoprolol 50 b.i.d. 5.Valsartan. 6.Lorazepam. Assessment And Plan: 1.Acute kidney injury secondary to prerenal on chronic kidney disease, solitary kidney. Continue to recover, plateaued currently. I am going to continue to monitor the patient. 2.Chronic kidney disease secondary to solitary kidney. Continue current treatment. I agree with AR B to prevent FSGS on solitary kidney. 3.Hypertension. I agree with current regimen. We will follow up. 4.Hypomagnesemia and hypokalemia, resolved. 5.Coronary artery disease, as by Cardiology. 6.Renal cell , status post resection, as by primary. VERONICA/JASSON Voice ID: [id number] Report ID: [id number]
== END 2018-12-09 13:25 | disposition home or self-care (01) | DRG 305 ==
LOC: ER 18:01 → ERHOLD 23:06 → 3RD-ICU 12-04 02:09 → 2ND 12-05 14:10
PROVIDERS: ADMIT Family Medicine; ATTEND Family Medicine
DX: I16.1 Hypertensive emergency (principal); I67.4 Hypertensive encephalopathy; C64.9 Malignant neoplasm of unspecified kidney, except renal pelvis; R47.01 Aphasia; N17.9 Acute kidney failure, unspecified; C79.89 Secondary malignant neoplasm of other specified sites; I25.10 Atherosclerotic heart disease of native coronary artery without angina pectoris; Z90.5 Acquired absence of kidney; R45.1 Restlessness and agitation; I12.9 Hypertensive chronic kidney disease with stage 1 through stage 4 chronic kidney disease, or unspecified chronic kidney disease; N18.3 Chronic kidney disease, stage 3 (moderate); E87.6 Hypokalemia; R33.9 Retention of urine, unspecified; E11.9 Type 2 diabetes mellitus without complications; N13.9 Obstructive and reflux uropathy, unspecified; E83.42 Hypomagnesemia; G47.33 Obstructive sleep apnea (adult) (pediatric); E78.5 Hyperlipidemia, unspecified
CPT/HCPCS: 36415; 70450; 70551; 74176; 76770; 80048; 80053; 80061; 80069; 80307; 81003; 81015; 82043; 82088; 82140; 82533; 82550; 82565; 82570; 82962; 83735; 83970; 84145; 84244; 84439; 84443; 84550; 85025; 87040; 92526; 92610; 93005; 93306; 93880; 96361; 96365; 96366; 96372; 96375; 97110; 97116; 97161; 97530; 99285; J0360; J1630; J1650; J3475; J3486; J7030

== ENCOUNTER 2020-03-01 15:22 | Inpatient (IN) | payer OTHER ==
--- NOTE | 2020-03-01 11:34 | R.PREADM ---
PRE-ADMISSION SCREENING FORM SCREENING DATE AND TIME 03/01/2020 09:30 (LEARNING AND DEVELOPMENT ADMINISTRATOR) ANTICIPATED REHAB ADMISSION DATE 03/03/2020 REFERRING FACILITY [facility] REFERRAL DATE AND TIME 02/29/2020 09:30 (LEARNING AND DEVELOPMENT ADMINISTRATOR) REFERRAL ROOM# [id number] ACUTE ADMIT DATE 03/01/2020 Previous Rehabilitation(s): No. ACUTE ART DEALER/DC QUILL SKINNER sri ATTENDING PHYSICIAN ANITA BLAKELY REFERRING PHYSICIAN Mike Reyes REHAB FACILITY [facility] CLINICAL LIAISON Katelyn Ch PHYSICIAN REVIEWER Dr. Gonzalez Fish M.D. MR# [id number] NAME JOHN PAUL SYKES ADDRESS [address] [place] [address] PHONE [facility] [id number] DATE OF 1950 AGE 70 SSN# [id number] GENDER male MARITAL STATUS RACE unknown race PREF. LANGUAGE (IF NON-HAITIAN) Yakut ADMIT FROM 02 - [facility] PRE-HOSPITAL LIVING SETTING 01 - Home (private home/apt. board/care, assisted living, half-way, transitional living) HOME TYPE AND DETAILS Type of home: single family house # of levels in the residence: 1 # of steps within the residence: 0 # of steps to enter the residence: 0 PRE-HOSPITAL LIVING WITH Family/Relatives FAMILY SUPPORT Yes PRIMARY FAMILY CONTACT NAME SERGEY SYKES PRIMARY FAMILY CONTACT PHONE PRIMARY FAMILY CONTACT RELATIONSHIP Son PHONE PRIMARY FAMILY CONTACT ON ADM.? no IS PRIMARY FAMILY CONTACT AUTH. REP.? no 1ST EMERGENCY CONTACT SERGEY SYKES 1ST CONTACT PHONE 1ST CONTACT RELATIONSHIP Son PHONE 1ST CONTACT ON ADM. no IS 1ST CONTACT AUTH. REP.? no PHONE 2ND CONTACT ON ADM.? no PATIENT EMPLOYMENT STATUS Retired (for age) PATIENT EMPLOYER No Employer PAYOR INFORMATION: 1ST PAYOR NAME MEDICARE 1ST PAYOR PHONE 1ST PAYOR INJURY/ILLNESS DUE TO ACCIDENT? No ANOTHER REPUBLICAN RESPONSIBLE? No PRIMARY REHAB/ACUTE DIAGNOSIS: CVA ONSET DATE 02/26/2020 REHAB IMPAIRMENT CATEGORY (JALEN): 01 Stroke (STR) MEETS 60% rule AFFECTED EXTREMITIES: RLE, and RUE PRIMARY DIAGNOSIS-RELATED SURGERIES: No surgeries related to the primary diagnosis were performed. SUMMARY OF ACUTE HOSPITALIZATION: Pt. is a 70 yo Right-handed male of unknown race. On 02/26/2020 Pt. presented to [facility] with sudden onset of right-side weakness. On 02/26/2020 he was admitted to [facility] with diagnosis CVA. His impairment category is Stroke 01 - Right Body (Left Brain) (01.2). Pre-morbidly, Pt. was independent/mod-I in Safety Awareness, Balance, Social Cognition, Self-Care, an d Communication; and he had good Self-Care and Transfers Control. Currently, he has deficits of Endurance, Safety Awareness, and Sphincter Control. Pt. is now referred to [facility] for acute in-patient rehabilitation in order to maximize patient's functional independence in activities of daily living, strength, ROM, and mobi lity. Patient has realistic goal of being discharged at assistance level 7-Ind to reside at Home with Fami ly/Relatives. is a 70 year old male that lives independently at home before his CVA. He will be discharging home with his son to live in his one -story home with his own room and barthroom, and family support. Mr. Sykes has a past medical history of PMH of HTN,DM,ROSARIO on CPAP, BPH and right RCC s/p resection and now on chemo. He started having blurry vision in the left eye and he ran into the wall. He had reported confusion and slurred speech 1 week ago while driving to his appointment. He has always done all of his own ADLs prior to his stoke. The patient would most definitely benefit from acute inpatient rehab and has become severely debilitated and unable to live at his prior level of activity at home getting him stronger to be back living at home independently is our goal. It is reasonable and necessary for the patient to come to acute inpatient rehab for approximately 7-10 days in order to return to his prior level of care. He is now being transferred to [facility] Inpatient rehabilitation and is medically stable with relatively stable labs. He is now medically stable but in need of 24 hour nursing, doctor supervision and The patient is reasonably expected to participate in 3 hours of therapy a day/15 hours per week and receive care with intensive interdisciplinary approach. COVID-19 screening performed; spoke with patient via phone. Patient denies new onset of fever, cough, difficulty breathing, sore throat, body aches and non-allergy nasal congestion in the past 24 hours. Patient denies travel outside of [place] in the past 14 days. Patient denies any contact with someone who has a confirmed diagnosis of or is under investigation for COVID-19 in the past 14 days. Patient has been tested negative for COVID- 19. PAST MEDICAL HISTORY CORONARY ARTERY DISEASE DIABESTES MELLITUS HEART ATTACK HYPERTENSION METASTATIC RENAL CELL CARCINOMA ROSARIO ON CPAP PAST SURGICAL HISTORY: LOOP RECORDER 03/01/20 BIOPSY EXCISION, SOFT TISSUE HIP COLONOSCOPY HEART STENT X 2 LAPAROSCOPY, NEPHRECTOMY ORIF,ACET ABULUM PROCEDURE W/C-ARM MEDICATION ALLERGIES: No Known Drug Allergies (NKDA) ENVIRONMENTAL ALLERGIES: - Substance Allergies None Known - Other Allergies None Known CODE STATUS: Full code WEIGHT/HEIGHT/BMI: WEIGHT 259 lbs HEIGHT 5' 11" BMI 36.1 DIET: - Diet Type Regular - Diet - Solid Texture Regular - Diet - Liquid Texture Regular - Tube Feed N/A REVIEW OF SYSTEMS: - Gen Alert and awake Lying in bed No apparent distress Oriented to: person, time, and place - Vital Signs Temperature: 96.4 F SBP/DBP: 141/70 Pulse: 64 Resp: 16 Vital signs stable, afebrile - CVS RRR VITAL SIGNS Temperature: 96.4 F SBP/DBP: 141/70 Pulse: 64 Resp: 16 Vital signs stable, afebrile MEDICATIONS/TREATMENT: Other- See attached MAR (Medication Administration Record). CURRENT SPHINCTER CONTROL: Pre-hospital bladder status: unspecified # of bladder accidents in the last 7 days prior to screenin Pre-hospital bowel status: unspecified # of bowel accidents in the last 7 days prior to screenin Last Bowel Movement Date: 03/01/2020 CURRENT LOCOMOTION STATUS: distance walked 900 feet with rolling walker DETAILED CURRENT FUNCTIONAL STATUS: - Bladder accident frequency: Ind - No accidents in the past 7 days - Bowel accident frequency: Ind - No accidents in the past 7 days - Walking score based on distance walked: 0(N/A) score based on distance walked: 3(>=150ft) - Wheelchair score based on distance traveled: 0(N/A) QI SCORES: - Self-Care A. Eating 04-Supervision or touching assistance B. Oral hygiene 03-Partial/moderate assistance C. Toileting hygiene 03-Partial/moderate assistance E. Shower/bathe self 03-Partial/moderate assistance F. Upper body dressing 03-Partial/moderate assistance G. Lower body dressing 03-Partial/moderate assistance H. Putting on/taking off footwear 88-Not attempted due to medical condition or safety concerns - Mobility A. Roll left and right 04-Supervision or touching assistance B. Sit to lying 04-Supervision or touching assistance C. Lying to sitting on side of bed 04-Supervision or touching assistance D. Sit to stand 03-Partial/moderate assistance E. Chair/nki-wu-[id number] transfer 03-Partial/moderate assistance F. Toilet transfer 03-Partial/moderate assistance G. Car transfer 88-Not attempted due to medical condition or safety concerns I. Walk 10 feet 03-Partial/moderate assistance J. Walk 50 feet with two turns 03-Partial/moderate assistance K. Walk 150 feet 03-Partial/moderate assistance L. Walking 10 feet on uneven surfaces 88-Not attempted due to medical condition or safety concerns M. 1 step (curb) 88-Not attempted due to medical condition or safety concerns N. 4 steps 88-Not attempted due to medical condition or safety concerns O. 12 steps 88-Not attempted due to medical condition or safety concerns P. Picking up object 88-Not attempted due to medical condition or safety concerns R. Wheel 50 feet with two turns 88-Not attempted due to medical condition or safety concerns S. Wheel 150 feet 88-Not attempted due to medical condition or safety concerns - Bladder and Bowel Bladder continence Bowel continence - Endurance Fair - Balance Fair - Safety Awareness Fair CURRENT FUNC. DEFICITS: Self-Care, Mobility, Endurance, Balance, and Safety Awareness HISTORY OF FALLS. HAS THE PATIENT HAD TWO OR MORE FALLS IN THE PAST YEAR OR ANY FALL WITH INJURY IN T HE PAST YEAR?: No PRIOR SURGERY. DID THE PATIENT HAVE MAJOR SURGERY DURING THE 100 DAYS PRIOR TO ADMISSION?: No THERAPY NOTES FROM ACUTE CARE: Attached. SPECIAL NEEDS: - Safety Concerns Skin breakdown precautions needed due to skin breakdown risk PATIENT NEEDS ACTIVE AND ONGOING THERAPEUTIC INTERVENTION OF MULTIPLE THERAPY DISCIPLINES, INCLUDING: - Occupational Therapy Cognitive Retraining. Visual Perceptual Training. - Dietary and Nutrition Adequate Nutrition. Nutritional Education. Nutritional Supplements. - Speech Therapy Cognitive Training. Expressive Language Skills. Memory Strategies. Receptive Language Skills. Speech Intelligibility Training. PATIENT NEEDS CLOSE MEDICAL SUPERVISION BY A REHABILITATION PHYSICIAN FOR: Coordination of Treatment Team PATIENT REQUIRES 24X7 REHAB NURSING FOR MEDICAL AND FUNCTIONAL MGT. OF THE FOLLOWING DEFICITS: Disease Management Medication Management Patient/Family Education Providing Safe Environment PATIENT REQUIRES INTENSIVE, COORDINATED INTERDISCIPLINARY APPROACH TO REHAB: Arranging Home Equipment/Services Discharge Planning Family Intervention/Training Resource Manager Forester/Case Management PATIENT REHAB POTENTIAL: Betty SYKES is able and expected to receive 3 hours of individualized therapy daily on at least 5 of sohail ry 7 days Betty Brown prognosis for significant practical improvement within a reasonable period of time appears Good Expected level of measurable improvement will be of a practical value to Betty SYKES's functional capaci ty or adaptations to impairments Has a viable Discharge Plan Medically appropriate; condition is sufficiently stable to participate in intensive rehab program DISCHARGE PLAN: - Estimated Length of Stay (days) 17. - Consensus on plan Discharge plan has been discussed with primary caregiver. Patient/Family is in agreement with the madi n. Primary caregiver is in agreement with the plan. - Patient/Family Goals Return home independently. - Planned Living Setting Upon Discharge Home, to live with Family/Relatives. Transitional Living. RECOMMENDED CARE LEVEL: IRF RECOMMENDATION DETAILS: Recommended Admission to Comprehensive Rehabilitation Program to Increase Functional [place] SCREENER'S COMPLETENESS CONFIRMATION: - Screening Confirmation The patient data collection on this preadmission screening form is finished PHYSICIANS REVIEW AND ADMISSION DETERMINATION Admit - Based on my review of the Pre-Admission Screening results, in my medical judgment and experie nce, I concur with the findings and recommend admission to [facility], as this patient requires an IRF level of care. SIGNATURE PANEL: Sow Farm Manager - [electronically] signed by Katelyn Ch on 03/01/2020 at 10:39 (LEARNING AND DEVELOPMENT ADMINISTRATOR) Sow Farm Manager - [electronically] signed by Lorenzo Comer PT on 03/01/2020 at 11:06 (LEARNING AND DEVELOPMENT ADMINISTRATOR) Physician Reviewer - [electronically] signed by Dr. Gonzalez Fish M.D. on 03/01/2020 at 11:33 (LEARNING AND DEVELOPMENT ADMINISTRATOR )
--- OUTSIDE RECORDS SUMMARY | 2020-03-01 15:24 | XMS REPORT | Clinical Summary ---
:1950 Author Organization [facility] Address [address] [place] [id number] Care Team Providers Name Role Phone Jb Dobbins MD Primary Care Provider Allergies Active Allergy Reactions Severity Noted Date Comments Metoclopramide Hcl Rash Low 06/03/2012 Medications Medication Sig Dispensed Refills Start Date End Date Status etodolac (LODINE) TAKE 1 TABLET 0 04/09/2018 Active 500 MG tablet BY MOUTH TWICE DAILY azelastine 1 spray into 0 01/17/2017 Activ e (ASTELIN) 137 mcg each nostril. (0.1 %) nasal spray lisinopril Take 10 mg by 0 03/28/2018 Acti ve (PRINIVIL,ZESTRIL) mouth. 10 mg tablet metFORMIN TAKE 1 TABLET 0 09/12/2017 Activ e (GLUCOPHAGE) 1,000 BY MOUTH mg tablet TWICE DAILY metoprolol tartrate TK 1 T PO BID 3 04/26/2018 Active (LOPRESSOR) 50 mg tablet rosuvastatin TAKE 1 90 tablet 3 08/18/2019 Active (CRESTOR) 20 MG TABLET(20 MG) tabletIndications: BY MOUTH Coronary artery DAILY disease involving tribe coronary artery of tribe heart without angina pectoris, Abnormal EKG rosuvastatin Take 1 tablet 90 tablet 3 05/05/2018 08/18/2019 D iscontinued (CRESTOR) 20 MG (20 mg total) tabletIndications: by mouth Coronary artery daily. disease involving tribe coronary artery of tribe heart without angina pectoris, Abnormal EKG folic acid Take 1 mg by 0 07/29/2018 07/29/2019 Expi red (FOLVITE) 1 MG mouth. tablet amLODIPine Take 5 mg by 0 07/29/2018 07/29/2019 Expi red (NORVASC) 5 mg mouth. tablet Active Problems Problem Noted Date Preop cardiovascular exam 08/12/2018 Metastatic renal cell carcinoma 08/05/2018 Pathologic fracture of right acetabulum 08/05/2018 Mass of soft tissue of right lower extremity 9 Pain of right hip joint 07/22/2018 Coronary artery disease involving tribe heart with an tania pectoris 05/10/2018 Abnormal EKG 05/10/2018 SOB (shortness of breath) 05/10/2018 Benign essential hypertension 06/03/2012 Diabetes mellitus type 2, uncontrolled, without compli cations 06/03/2012 Overview: Overview: ICD10 Diagnosis Term Nuclear Physicist Utility HLD (hyperlipidemia) 06/03/2012 Encounters Date Type Specialty Care Team Description 08/18/2019 Refill Cardiology Patrick Zarate MD Med Refi ll after 03/01/2019 Family History Medical History Relation Name Comments Coronary artery disease Brother Coronary artery disease Mother Relation Name Status Comments Brother Mother Social History Tobacco Use Types Packs/Day Years Used Date Former Smoker Cigarettes 2 20 Quit: 05/05/18 86 Smokeless Tobacco: Never Used Alcohol Use Drinks/Week oz/Week Comments Yes Alcohol Habits Answer Date Recorded How often do you have a drink containing alcohol? 2-4 times a month 05/05/2018 How many drinks containing alcohol do you have on a 1 or 2 05/05/2018 typical day when you are drinking? How often do you have six or more drinks on one Not asked occasion? Sex Assigned at Date Recorded Not on file Last Filed Vital Signs Not on file Plan of Treatment Health Maintenance Due Date Last Done Comments DIABETES: RETINAL EYE EXAM 02/24/1958 DIABETIC FOOT EXAM 02/24/1958 COLONOSCOPY SCREENING 02/24/1998 SHINGLES VACCINES (#1) 02/24/1998 65+ PNEUMOCOCCAL VACCINE (1 of 1 - PPSV23) 02/24/2013 INFLUENZA VACCINE 11/28/2019 Results Not on fileafter 03/01/2019 Insurance Payer Benefit Plan / Subscriber ID Effective Dates Phone Addre ss Type Group MEDICARE MEDICARE PART A [id number] 2013-Present RUIZ SALGUERO Medicare AND B Advance Directives For more information, please contact: [phone] Type Date Recorded Patient Seed And Fertilizer Specialist Explanati on Advance Directives, Living Will and Medical Power of Knitted Cloth Examiner
--- OUTSIDE RECORDS SUMMARY | 2020-03-01 15:25 | XMS REPORT | Clinical Summary ---
:1950 Author Organization [facility] Address [address] [place] [address] Care Team Providers Name Role Phone Pcp Primary Care Provider Unavailable Pcp Primary Care Provider Unavailable Unknownmeds Primary Care Provider Unavailable Allergies Active Allergy Reactions Severity Noted Date Comments Metoclopramide Hcl Rash Low 06/03/2012 Medications Medication Sig Dispensed Refills Start End Date Status Date aspirin 81 MG EC Take 1 tablet (81 90 tablet 3 03/02 Active tablet mg total) by mouth 0 21 daily. metoprolol Take 1 tablet (50 60 tablet 2 05/30/19 A ctive tartrate mg total) by mouth 0 21 (LOPRESSOR) 50 2 (two) times MG tablet daily for 90 days. polyethylene Take 17 g by mouth 14 each 0 03/16/20 Active glycol daily for 14 days. 0 20 (GLYCOLAX) 17 gram packet tamsulosin Take 1 capsule 30 capsule 2 05/31/19 Act samanta (FLOMAX) 0.4 mg (0.4 mg total) by 0 21 Cap 24 hr mouth daily for 90 capsule days. clopidogreL Take 1 tablet (75 30 tablet 2 05/31/19 Active (PLAVIX) 75 mg mg total) by mouth 0 21 tablet daily for 90 days. cyanocobalamin, Take 1 tablet (100 30 tablet 2 05/31 Active vitamin B-12, mcg total) by 0 21 100 MCG tablet mouth daily for 90 days. folic Take 1 tablet by 30 tablet 2 05/31/19 Act samanta acid-multivitami mouth daily for 90 0 21 ns (NEPHRO-YANDY) days. 0.8 mg Tab tablet mINOCYCLine Take 1 capsule 10 capsule 0 03/06/20 Ac tive (MINOCIN,DYNACIN (100 mg total) by 0 20 ) 100 MG capsule mouth every 12 (twelve) hours for 10 doses. atorvastatin Take 1 tablet (80 30 tablet 2 05/30/19 Active (LIPITOR) 80 MG mg total) by mouth 0 21 tablet nightly for 90 days. blood-glucose Use as instructed. 1 each 0 0 Active meter kit 0 21 insulin lispro AC & HS. If BS > 10 mL 2 Active (HumaLOG) 100 150 take 1 unit. > 0 unit/mL 200 - 2 units. > injection 250 - 3 units. > 300 - 4 units. > 350 - 5 units. > 400 take 6 units, and call PCP.. needles, insulin 1 box by 1 each 2 03/31/20 Act samanta disposable Miscellaneous 0 20 (Insulin Pen route 3 (three) Gallina) Ndle times daily for 30 days. rosuvastatin Take 20 mg by 0 02/27/20 Dis continued (CRESTOR) 20 MG mouth daily. 20 tablet tamsulosin Take 0.4 mg by 0 03/01/20 Disc ontinued (FLOMAX) 0.4 mg mouth daily. 20 ( Stop Taking at Cap 24 hr Discharge) capsule ipratropium Inhale 2 puffs by 0 02/26/20 Discontinued (ATROVENT HFA) mouth via inhaler 20 (Med History: 17 mcg/actuation 3 (three) times Patient inhaler daily. Reported M ed no longer joshua ing) metoprolol Take 1 tablet (50 60 tablet 1 02/27/20 D iscontinued (LOPRESSOR) 50 mg total) by mouth 9 20 (Med History: MG tablet 2 (two) times Patien t daily. Reported M ed no longer joshua ing) amLODIPine Take 1 tablet (5 30 tablet 0 07/29/19 Ex pired (NORVASC) 5 MG mg total) by mouth 9 20 tablet daily. folic acid Take 1 tablet (1 90 tablet 3 07/29/19 Ex pired (FOLVITE) 1 MG mg total) by mouth 9 20 tablet daily. polyethylene Take 17 g by mouth 14 each 0 02/26/20 Discontinued glycol daily as needed. 9 20 (Me d History: (GLYCOLAX) 17 Patien t gram packet Reported Med no longer joshua ing) HYDROcodone-acet Take 1 tablet by 20 tablet 0 Discontinued aminophen (NORCO mouth every 6 9 20 (Med History: 5-325) 5-325 mg (six) hours as Patient per tablet needed for Pain. Re ported Med no Max Daily Amount: lo nger taking) 4 tablets lisinopriL Take 40 mg by 0 03/01/20 Disco ntinued (PRINIVIL,ZESTRI mouth 2 (two) 20 (Stop Taking at L) 40 MG tablet times daily. D ischarge) metoprolol Take 25 mg by 0 03/01/20 Disco ntinued tartrate mouth 2 (two) 20 (Stop Taking at (LOPRESSOR) 25 times daily. Di scharge) MG tablet amLODIPine Take 5 mg by mouth 0 03/01/20 Discontinued (NORVASC) 5 MG daily. 20 (Stop Taking at tablet Discharge) aspirin 325 MG Take 325 mg by 0 03/01/20 Discontinued tablet mouth daily. 20 (Stop T aking at Discharge) doxazosin Take 2 mg by mouth 0 S uspended (CARDURA) 2 MG nightly. tablet metFORMIN Take 1,000 mg by 0 03/01/20 Dis continued (GLUCOPHAGE) mouth 2 (two) 20 (St op Taking at 1000 MG tablet times daily with Discharge) breakfast and dinner. atorvastatin Take 80 mg by 0 03/01/20 Dis continued (LIPITOR) 80 MG mouth nightly. 20 (Reorder) tablet insulin lispro Inject 0-8 Units 10 mL 2 03/01/20 Discontinued (HumaLOG) 100 subcutaneously 3 0 20 (Stop Taking at unit/mL (three) times Discha rge) injection daily before meals for 125 days. Active Problems Problem Noted Date Transient ischemic attack, acute 02/26/2020 Renal mass 08/21/2018 Essential hypertension 08/13/2018 DM (diabetes mellitus), type 2 08/13/2018 ROSARIO (obstructive sleep apnea) 08/13/2018 Anemia 08/13/2018 Pelvic mass 08/12/2018 Metastatic renal cell carcinoma to bone 08/12/2018 Metastatic renal cell carcinoma 08/05/2018 Pathologic fracture of right acetabulum 08/05/2018 Pain of right hip joint 07/22/2018 Encounters Date Type Specialty Care Team Description 02/26/2020 Hospital Encounter General Internal Funes, Griselda Funes sient ischemic attack, acute (Primary Dx); Graciela Piedra MD Renal cell carcinoma of left kidney meta static to other site (HCC); Chika Metastatic magnolia l cell carcinoma to bone (HCC); Antoinette Ayala Type 2 diabet es mellitus without complication, without long- term current use of insulin (HCC); MD Srinivasa Essential hypertension; [place], Cerebrovascular accident (CVA), unspecified mechanism (HCC); MD Demetrius Intracranial va scular stenosis; Cerebral infarc tion due to stenosis of left middle cerebral artery (HCC); Cryptogenic str matti (HCC) 02/26/2020 Orders Only General Internal Medicine 02/26/2020 Travel 01/05/2020 Hospital Encounter Computed Yen, -Ady Clear radha l renal cell Tomography MD Remy carcinoma, left (HCC) 1, [facility] Room 01/05/2020 Hospital Encounter Computed Yen, -Ady Clear radha l renal cell Tomography MD Remy carcinoma, left (HCC) 1, [facility] Room 12/29/2019 Outside Orders Central Scheduling Yen, -Ady Clear c ruma renal cell MD Remy carcinoma, left (HCC) (Primary Dx) 10/16/2019 Hospital Encounter Computed Yen, -Ady Clear radha l renal cell Tomography MD Remy carcinoma, left (HCC) 1, [facility] Room 10/16/2019 Hospital Encounter Computed Yen, -Ady Clear radha l renal cell Tomography MD Remy carcinoma, left (HCC) 1, [facility] Room 07/31/2019 Outside Orders Central Scheduling Yen, -Ady Clear c ruma renal cell MD Remy carcinoma, left (HCC) (Primary Dx) 06/15/2019 Hospital Encounter Computed Osbaldo Rodriges Clear ce ll renal cell Tomography SHANTEL Conn carcinoma, left (HCC) 1, [facility] Room 06/15/2019 Hospital Encounter Computed Osbaldo Rodriges ce ll renal cell Tomography Fabien, CENTRAL AISLE CASHIER carcinoma, left (HCC) 1, [facility] Room 06/12/2019 Outside Orders Radiology Osbaldo Rodriges cell r enal cell Fabien, CENTRAL AISLE CASHIER carcinoma, left (HCC) (Primary Dx) 03/19/2019 Hospital Encounter Radiology Wendy, Kaitlin-Ady Hip pain, bilateral MD Remy 03/06/2019 Hospital Encounter Computed Yen, -Ady Clear radha l renal cell Tomography MD Remy carcinoma, left (HCC) 1, [facility] Room 03/06/2019 Hospital Encounter Computed Yen, -Ady Clear radha l renal cell Tomography MD Remy carcinoma, left (HCC) 1, [facility] Room after 03/01/2019 Immunizations Name Administration Dates Next Due INFLUENZA QIV ADJUVANTED PF IM 02/27/2020 Pneumococcal Conjugate (Prevnar) 13-Valent 02/27/2020 Family History Medical History Relation Name Comments Diabetes Brother Relation Name Status Comments Brother Social History Tobacco Use Types Packs/Day Years Used Date Former Smoker Quit: 1987 Smokeless Tobacco: Never Used Alcohol Use Drinks/Week oz/Week Comments Yes 6 Cans of beer 6.0 some nights of t Sex Assigned at Date Recorded Not on file COVID-19 Exposure Response Date Recorded In the last month, have you been in contact with No / Unsure 02/26/2020 11:30 AM CDT someone who was confirmed or suspected to have Coronavirus / COVID-19? Last Filed Vital Signs Vital Sign Reading Time Taken Comments Blood Pressure 172/74 03/01/2020 11:08 AM CALIBRATION TESTER Pulse 57 03/01/2020 1:15 PM CALIBRATION TESTER Temperature 36.4 C (97.5 F) 03/01/2020 9:00 AM CALIBRATION TESTER Respiratory Rate 18 03/01/2020 1:15 PM CALIBRATION TESTER Oxygen Saturation 99% 03/01/2020 1:15 PM CALIBRATION TESTER Inhaled Oxygen Concentration 21% 03/01/2020 5:30 AM CALIBRATION TESTER Weight 117.6 kg (259 lb 4.2 oz) 02/26/2020 10:55 AM CDT Height 180.3 cm (5' 11") 02/26/2020 10:55 AM CDT Body Mass Index 36.16 02/26/2020 10:55 AM CDT Plan of Treatment Health Maintenance Due Date Last Done Comments COLON CANCER SCREENING COLONOSCOPY 1950 DIABETIC EYE EXAM 02/24/1958 DIABETIC FOOT EXAM 02/24/1958 URINE MICROALBUMIN 02/24/1958 MEDICARE ANNUAL WELLNESS (YEAR 2 or FIRST 01/28/2014 YEAR if no IPPE) HEMOGLOBIN A1C 08/26/2020 02/27/2020, 07/25/2018 PNEUMOCOCCAL 65+ YRS (2 of 2 - PPSV23) 02/26/2021 0, 11/04/2019 INFLUENZA VACCINE Completed 02/27/2020 Implants Implanted Type Area Adjunct Psychology Instructor Device Shelf Model / Identifier Expiration Serial / Date Lot Scr Gemini Asnis3 Ft [id number] - [id number] Fracture/Fix Right: OMAIRA:OMAIRA 10/26/2022 [id number] / Implanted: Qty: 1 on 08/13/2018 by Kingsley Houser MD at [facility] / [id number] Cement Bone Smplx Tobra 40gm [id number] - [id number] IMPLANTS Right: OMAIRA:OMAIRA 12/28/2019 [id number] / Implanted: Qty: 1 on 08/13/2018 by Kingsley Houser MD at [facility] Hip ORTHOPAEDICS / [id number] Cannulated Screw, Fully Threaded Right: OMAIRA 07/27/2022 [id number] / Implanted: Qty: 1 on 08/13/2018 by Kingsley Houser MD at [facility] Hip / [id number] Procedures The patient is currently admitted. The information in this section might not be complete until the patient is discharged. Procedure Name Priority Date/Time Associated Comments Diagnosis POCT-GLUCOSE METER Routine 03/01/2020 1:03 Resul ts for this PM CALIBRATION TESTER procedure are i n the results section. CBC W/PLT COUNT & Routine 03/01/2020 6:08 Result s for this AUTO DIFFERENTIAL AM CALIBRATION TESTER procedure are in the results section. CBC W/PLT COUNT & Routine 03/01/2020 6:08 Result s for this AUTO DIFFERENTIAL AM CALIBRATION TESTER procedure are in the results section. BASIC METABOLIC PANEL Routine 03/01/2020 6:08 Re sults for this (7) AM CALIBRATION TESTER procedure are i n the results section. POCT-GLUCOSE METER Routine 02/29/2020 9:35 Resul ts for this PM CALIBRATION TESTER procedure are i n the results section. POCT-GLUCOSE METER Routine 02/29/2020 5:54 Resul ts for this PM CALIBRATION TESTER procedure are i n the results section. CBC W/PLT COUNT & Routine 02/29/2020 5:53 Result s for this AUTO DIFFERENTIAL AM CALIBRATION TESTER procedure are in the results section. CBC W/PLT COUNT & Routine 02/29/2020 5:53 Result s for this AUTO DIFFERENTIAL AM CALIBRATION TESTER procedure are in the results section. BASIC METABOLIC PANEL Routine 02/29/2020 5:53 Re sults for this (7) AM CALIBRATION TESTER procedure are i n the results section. POCT-GLUCOSE METER Routine 02/28/2020 9:31 Resul ts for this PM CALIBRATION TESTER procedure are i n the results section. CBC W/PLT COUNT & Routine 02/28/2020 4:15 Result s for this AUTO DIFFERENTIAL AM CALIBRATION TESTER procedure are in the results section. CBC W/PLT COUNT & Routine 02/28/2020 4:15 Result s for this AUTO DIFFERENTIAL AM CALIBRATION TESTER procedure are in the results section. BASIC METABOLIC PANEL Routine 02/28/2020 4:15 Re sults for this (7) AM CALIBRATION TESTER procedure are i n the results section. 2D ECHO W/ DOPPLER Routine 02/28/2020 12:00 Resul ts for this (CW/PW/COLOR) AM CDT procedure are in the results section. POCT-GLUCOSE METER Routine 02/27/2020 10:27 Resul ts for this PM CDT procedure are i n the results section. SARS-COV2/RT-PCR Routine 02/27/2020 1:38 Results for this ([facility] RE[facility]) PM CDT procedure are in the results section. CBC W/PLT COUNT & Routine 02/27/2020 6:08 Result s for this AUTO DIFFERENTIAL AM CDT procedure are in the results section. PHOSPHORUS Routine 02/27/2020 6:08 Results for this AM CDT procedure are i n the results section. MAGNESIUM Routine 02/27/2020 6:08 Results for this AM CDT procedure are i n the results section. TSH/FREE T4 IF Routine 02/27/2020 6:08 Results f or this INDICATED AM CDT procedure are i n the results section. CBC W/PLT COUNT & Routine 02/27/2020 6:08 Result s for this AUTO DIFFERENTIAL AM CDT procedure are in the results section. HEPATIC FUNCTION Routine 02/27/2020 6:08 Results for this PANEL AM CDT procedure are i n the results section. BASIC METABOLIC PANEL Routine 02/27/2020 6:08 Re sults for this (7) AM CDT procedure are i n the results section. VITAMIN B12 AND Routine 02/27/2020 6:08 Results for this FOLATE AM CDT procedure are i n the results section. HEMOGLOBIN A1C Routine 02/27/2020 6:08 Results f or this AM CDT procedure are i n the results section. LIPID PANEL Routine 02/27/2020 6:08 Results for this AM CDT procedure are i n the results section. POCT-GLUCOSE METER Routine 02/26/2020 9:26 Resul ts for this PM CDT procedure are i n the results section. MR BRAIN WITHOUT IV Routine 02/26/2020 6:45 Resu lts for this CONTRAST PM CDT procedure are i n the results section. ECG 12-LEAD Routine 02/26/2020 5:52 PM CDT Procedure Note - Interface, External Ris In - 02/26/2020 10:30 PM CDT Ventricular Rate 60 BPM Atrial Rate 60 BPM P-R Interval 196 ms QRS Duration 128 ms Q-T Interval 428 ms QTC Calculation(Bazett) 428 ms P [place] 26 degrees R [place] -11 degrees T [place] 20 degrees Normal sinus rhythm Right bundle branch block Abnormal ECG When compared with ECG of 11:29, No significant change was fo und ECG 12-LEAD Routine 02/26/2020 5:52 PM Results for this CDT procedure are i n the results section. URINALYSIS WITH Routine 02/26/2020 2:22 PM Resul ts for this MICROSCOPIC IF CDT procedure are in INDICATED the results section. CTA BRAIN STAT 02/26/2020 11:44 AM Results for this CDT procedure are i n the results section. CT/CTA CAROTID STAT 02/26/2020 11:44 AM Result s for this CDT procedure are i n the results section. CT BRAIN/STROKE TEST STAT 02/26/2020 11:43 AM Results for this DESIGN CDT procedure are i n the results section. XR CHEST 1 VIEW STAT 02/26/2020 11:35 AM Resul ts for this PORTABLE/BEDSIDE CDT procedure a re in the results section. ECG 12-LEAD STAT 02/26/2020 11:29 AM Results for this CDT procedure are i n the results section. POCT-GLUCOSE METER Routine 02/26/2020 11:28 AM Re sults for this CDT procedure are i n the results section. ED ECG INTERPRETATION Routine 02/26/2020 11:05 AM Results for this CDT procedure are i n the results section. CBC W/PLT COUNT & AUTO STAT 02/26/2020 10:58 AM Results for this DIFFERENTIAL CDT procedure are i n the results section. B-TYPE NATRIURETIC STAT 02/26/2020 10:58 AM Re sults for this FACTOR (BNP) CDT procedure are i n the results section. PT/APTT STAT 02/26/2020 10:58 AM Results for this CDT procedure are i n the results section. CBC W/PLT COUNT & AUTO STAT 02/26/2020 10:58 AM Results for this DIFFERENTIAL CDT procedure are i n the results section. TROPONIN I STAT 02/26/2020 10:58 AM Results for this CDT procedure are i n the results section. MAGNESIUM STAT 02/26/2020 10:58 AM Results for this CDT procedure are i n the results section. BASIC METABOLIC PANEL STAT 02/26/2020 10:58 AM Results for this (7) CDT procedure are i n the results section. CT ABDOMEN/PELVIS Routine 01/05/2020 6:12 PM Clear cell renal Results for this WITHOUT IV CONTRAST CDT cell carcinoma, proce dure are in left (HCC) the results section. CT CHEST WITHOUT IV Routine 01/05/2020 6:12 PM Clear cell marianna al Results for this CONTRAST CDT cell carcinoma, procedure ar e in left (HCC) the results section. CT CHEST WITHOUT IV Routine 10/16/2019 10:48 AM Clear cell marianna al Results for this CONTRAST CDT cell carcinoma, procedure ar e in left (HCC) the results section. CT ABDOMEN/PELVIS Routine 10/16/2019 10:48 AM Clear cell renal Results for this WITHOUT IV CONTRAST CDT cell carcinoma, proce dure are in left (HCC) the results section. CT CHEST WITH IV Routine 06/15/2019 2:41 PM Clear cell renal Results for this CONTRAST CALIBRATION TESTER cell carcinoma, procedure ar e in left (HCC) the results section. CT ABDOMEN/PELVIS WITH Routine 06/15/2019 2:41 PM Clear cell renal Results for this IV CONTRAST CALIBRATION TESTER cell carcinoma, procedure ar e in left (HCC) the results section. POCT-CREATININE Routine 06/15/2019 2:17 PM Resul ts for this CALIBRATION TESTER procedure are i n the results section. FL BILATERAL HIPS TO Routine 03/19/2019 11:45 AM Hip pain, Results for this INCLUDE PELVIS CALIBRATION TESTER bilateral procedure are in the results section. CT CHEST WITH IV Routine 03/06/2019 11:15 AM Resu lts for this CONTRAST CALIBRATION TESTER procedure are i n the results section. CT ABDOMEN/PELVIS WITH Routine 03/06/2019 11:15 AM Clear cell renal Results for this IV CONTRAST CALIBRATION TESTER cell carcinoma, procedure ar e in left (HCC) the results section. POCT-CREATININE Routine 03/06/2019 10:42 AM Resul ts for this CALIBRATION TESTER procedure are i n the results section. after 03/01/2019 Results POC-Glucose meter (03/01/2020 1:03 PM CALIBRATION TESTER)Only the most recent of7 results within the time period is included. POC-Glucose Meter 252 (H) 70 - 110 mg/dL [facility] Comment: [facility] : TESTED AT [address], [address] CENTER : Field Tax Auditor/Sheet Metal Journeyman ID = [id number] for MAGDA QUINONES Specimen Blood Performing Organization Address City/State/Zipcode Phone Number [address] [phone] CENTER CBC with platelet count + automated diff (03/01/2020 6:08 AM CALIBRATION TESTER)Only the most recent of5 resultswithin the time period is included. Pathologist Sig nature WBC 3.9 3.5 - 10.5 [facility] K/L [facility] RBC 3.64 (L) 4.63 - 6.08 [facility] M/L [facility] Hemoglobin 11.2 (L) 13.7 - 17.5 [facility] GM/DL [facility] Hematocrit 33.4 (L) 40.1 - 51.0 % [facility] MCV 91.8 79.0 - 92.2 fL [facility] MCH 30.8 25.7 - 32.2 pg [facility] MCHC 33.5 32.3 - 36.5 [facility] GM/DL [facility] RDW 13.9 11.6 - 14.4 % [facility] Platelets 159 150 - 450 K/CU [facility] MM [facility] MPV 8.8 (L) 9.4 - 12.4 fL [facility] nRBC 0 0 - 0 /100 WBC [facility] % Neutros 48 % [facility] % Lymphs 36 % [facility] % Monos 9 % [facility] % Eos 7 % [facility] % Baso 0 % [facility] # Neutros 1.90 1.78 - 5.38 [facility] # Lymphs 1.41 1.32 - 3.57 [facility] # Monos 0.34 0.30 - 0.82 [facility] # Eos 0.27 0.04 - 0.54 [facility] # Baso 0.01 0.01 - 0.08 [facility] Immature 0 0 - 1 % [facility] Granulocytes-Relative [facility] Specimen Blood Performing Organization Address City/State/Zipcode Phone Number [facility] [address] [place] [address] CENTER Basic Metabolic Panel (03/01/2020 6:08 AM CALIBRATION TESTER)Only the most recent of5 results within the time period is included. Sodium 136 136 - 145 meq/L [facility] Potassium 4.2 3.5 - 5.1 meq/L [facility] Chloride 106 98 - 107 meq/L [facility] CO2 22 22 - 29 meq/L [facility] BUN 23 (H) 7 - 21 mg/dL [facility] Creatinine 1.80 (H) 0.57 - 1.25 [facility] mg/dL [facility] Glucose 187 (H) 70 - 105 mg/dL [facility] Calcium 8.9 8.4 - 10.2 [facility] mg/dL [facility] EGFR 37Comment: ESTIMATED mL/min/1.73 sq [facility] GFR IS NOT [facility] ACCURATE LONSDALE CREATININE CLEARANCE IN PREDICTING GLOMERULAR FILTRATION RATE. ESTIMATED GFR IS NOT APPLICABLE FOR DIALYSIS PATIENTS. Specimen Blood Narrative Performed At Field Tax Auditor ID - [facility] IC[facility] CENTER Performing Organization Address City/State/Zipcode Phone Number [facility] [phone] [place] [address] CENTER 2D Echo W/Doppler(CW/PW/Color) with saline (02/28/2020 12:00 AM CDT) Pathologist Sig nature Ejection Fraction [facility] Specimen Narrative Performed At Transthoracic Echocardiography Report (T TE) [facility] Demographics Patient Name JOHN PAUL POLLARD Date of Study 02/28/2020 MEGHA Gender Male Visit Number [id number] Race Unknown Room Number 2256 Number Date of 1950 Referring Saeed Parada Physician Age 70 year(s) Rn Transitional Care Tony Tobin Marine Underwriter Shanel Adams Interpreting Roe molina, Physician Procedure Type of Study TTE procedure:2DECHO W DOPPLER(CW/PW/COLOR) (Routine) Indications:Unexplained Pre-syncope/Sync ope. Clinical History CAD, DM, HTN, ROSARIO ON CPAP Contrast Medium: Definity. Amount - 3 ml Height: 71 inches Weight: 117.48 kg (259 lbs) BSA: 2.35 m^2 BMI: 36.12 kg/m^2 HR: 64 bpm BP: 167/77 mmHg Summary The left ventricle is chamber size (by vol index) is mildly enlarged (male - LVED 75-89ml/m2). Mild concentric LV hypertrophy. All of the LV segments contract normall y . Global LV systolic function normal . Estimated LVEF by qualitative assessment is normal (55-60%) . LV endocardium is adequately visualized with IV ultrasound enhancing agent. No significant valve disease detected. A trace of tricuspid regurgitation. Estimated peak systolic PA pressure is 25-30 mmHg (normal range) . The estimated RA pressure by IVC dynamics 5-10mmHg . No significant pericardial effusion is visualized. Previous Study In comparison with the prior exam on 07-25-18 there are no significant changes. Signature Findings Left Ventricle The left ventricle is chamber size (by vol index) is mildly enlarged (male - LVED 75-89ml/m2). Mild concentric LV hypertrophy. All of the LV segments contract normally . Global LV systolic function normal . Estimated LVEF by qualitative assessment is normal (55- 60%) . LV endocardium is adequately visualized with IV ultrasound enhancing agent. Grade 1 diastolic dysfunction (impaired relaxati on and low-normal LA pressure). Left Atrium LA size is mildly enlarged (35-41 ml/m2) . Right Ventricle The right ventricular chamber size and systolic function are within normal limits. Right Atrium RA cavity size is normal . Aortic Valve Normal AoV structure and function. Mitral Valve Mild MV leaflet thickening. Mild mitral annular calcification. Trace mitral regurgitation. Tricuspid Valve A trace of tricuspid regurgitation. Estimated peak systolic PA pressure is 25-30 mmHg (normal range) . Pulmonic Valve Normal PV structure and function. Aorta Aortic root size (SInus of Valsalva diameter) is norm al . Pericardium No significant pericardial effusion is visualized. IVC/SVC/PA/PV/Pleural The estimated RA pressure by IVC dynamics 5-10mmHg . Chambers/Structures Left Atrium LA Volume: 92.05 ml LA Area: 25.56 cm^2 LA Vol. Index: 39 ml/m^2 Left Ventricle LVIDd: 6.14 cm LV Septum Diastolic: 1.22 cm LV PW Diastolic: 1.21 cm LVEDV Padilla's:180.18 ml LVEDVI: 77 ml/m^2 LVOT Diameter: 2.25 cm Right Atrium RA Vol. (Sngl Plane): 49.52 ml Right Ventricle TAPSE: 1.7 7 cm Aorta Ao Root S of Susan.: 3.51 cm Doppler/Quantitative Measurements Mitral Valve MV Peak E-Wave: 0.67 m/s MV Peak A-Wave: 0.68 m/s E/A Ratio: 0.99 Peak Gradient: 1.8 mmHg Deceleration Time: 275.2 msec MV Carlitos. Peak: Tissue Doppler E' Lateral Velocity: 0.08 m/s E/E': 8.32 Aortic Valve Peak Velocity: 1.41 m/s Mean Velocity: 0.98 m/s Peak Gradient: 8 mmHg Mean Gradient: 4.37 mmHg AV Area (continuity): 3.22 cm^2 AV VTI: 33 cm AV DVI: 0.81 LVOT Peak Velocity: 1.2 m/s Peak Gradient: 5.76 mmHg Mean Velocity: 0.89 m/s Mean Gradient: 3.45 mmHg LVOT Diameter: 2.25 cm LVOT VTI: 26.72 cm LVOT Area: 3.98 cm^2 LVOT SV:106.19 ml LVOT CO: 6.8 l/min LVOT CI: 2.89 l/min/m^2 Tricuspid Valve TR Velocity: 2.27 m/s TR Gradient: 20.52 mmHg Procedure Note Interface, External Ris In - 02/28/2020 6:41 PM CALIBRATION TESTER Transthoracic Echocardiography Report (TTE) Demographics Patient Name JOHN PAUL POLLARD Date o Study 02/28/2020 MEGHA Gender Male Visit Number [id number] Race Unknown [place] [id number] Number Date of 1950 Referr rajesh Saeed Tal short Age 70 year(s) Sonogr keyurer Tony Crista Marine Underwriter Shanel Adams Interp reting Deangelo Giles MD Procedure Type of Study TTE procedure:2DECHO W DOPPLE R(CW/PW/COLOR) (Routine) Indications:Unexplained Pre-syncope/Sync ope. Clinical History CAD, DM, HTN, ROSARIO ON CPAP Contrast Medium: Definity. Amount - 3 ml Height: 71 inches Weight: 117.48 kg (259 lbs) BSA: 2.35 m^2 BMI: 36.12 kg/m^2 HR: 64 bpm BP: 167/77 mmHg Summary The left ventricle is chamber size (by vol index) is mildly enlarged (male - LVED 75-89ml/m2). Mild concentric LV hypertrophy. All of the LV segments contract normall y . Global LV systolic function normal . Estimated LVEF by qualitative assessmen t is normal (55-60%) . LV endocardium is adequately visualized with IV ultrasound enhancing agent. No significant valve disease detected. A trace of tricuspid regurgitation. Estimated peak systolic PA pressure is 25-30 mmHg (normal range) . The estimated RA pressure by IVC dynami cs 5-10mmHg . No significant pericardial effusion is visualized. Previous Study In comparison with the prior exam on there are no significant changes. Signature Findings Left Ventricle The left ventric le is chamber size (by vol index) is mildly enlarg ed (male - LVED 75-89ml/m2). Mild concentric LV hypertrophy. All of the LV se gments contract normally . Global LV systol ic function normal . Estimated LVEF b y qualitative assessment is normal (55-60%) . LV endocardium i s adequately visualized with IV ultrasound enhan cing agent. Grade 1 diastoli c dysfunction (impaired relaxation and low-normal L A pressure). Left Atrium LA size is mildl y enlarged (35-41 ml/m2) . Right Ventricle The right ventri cular chamber size and systolic function are wit hin normal limits. Right Atrium RA cavity size i s normal . Aortic Valve Normal AoV struc ture and function. Mitral Valve Mild MV leaflet thickening. Mild mitral fredi lar calcification. Trace mitral reg urgitation. Tricuspid Valve A trace of tricu spid regurgitation. Estimated peak s ystolic PA pressure is 25-30 mmHg (normal range) . Pulmonic Valve Normal PV struct ure and function. Aorta Aortic root size (SInus of Valsalva diameter) is normal . Pericardium No significant p ericardial effusion is visualized. IVC/SVC/PA/PV/Pleural The estimated RA pressure by IVC dynamics 5-10mmHg . Chambers/Structures Left Atrium LA Volume: 92.05 ml LA Area: 25.56 cm^2 LA Vol. Index: 39 ml/m^2 Left Ventricle LVIDd: 6.14 cm LV Septum Diastolic: 1.22 cm LV PW Diastolic: 1.21 cm LVEDV Padilla's:180.18 ml LVEDVI: 77 ml/m^2 LVOT Diameter: 2.25 cm Right Atrium RA Vol. (Sngl Plane): 49.52 ml Right Ventricle TAPSE: 1.77 cm Aorta Ao Root S of Susan.: 3.51 cm Doppler/Quantitative Measurements Mitral Valve MV Peak E-Wave: 0.67 m/s M V Peak A-Wave: 0.68 m/s E /A Ratio: 0.99 P eak Gradient: 1.8 mmHg D eceleration Time: 275.2 msec MV Carlitos. Peak: Tissue Doppler E' Lateral Velocity: 0.08 m/s E /E': 8.32 Aortic Valve Peak Velocity: 1.41 m/s Mean Velocity: 0.98 m/s Peak Gradient: 8 mmHg Mean Gradient: 4.37 mmHg AV Area (continuity): 3.22 cm^2 AV VTI: 33 cm AV DVI: 0.81 LVOT Peak Velocity: 1.2 m/s Pea k Gradient: 5.76 mmHg Mean Velocity: 0.89 m/s Elizabeth n Gradient: 3.45 mmHg LVOT Diameter: 2.25 cm LVO T VTI: 26.72 cm LVOT Area: 3.98 cm^2 LVO T SV:106.19 ml LVOT CO: 6.8 l/min LVO T CI: 2.89 l/min/m^2 Tricuspid Valve TR Velocity: 2.27 m/s TR Gradient: 20.52 mmHg Performing Organization Address City/State/Zipcode Phone Number [facility] SARS-CoV2/RT-PCR (Asymptomatic ONLY) (02/27/2020 1:38 PM CDT) SARS-COV2/RT-PCR Negative Not Detected, [facility] Negative, See [facility] external report CENTER for linked test SARS-COV-2 [facility] PERFORMING LAB [facility] Specimen Other - Nasopharyngeal wall structure (b gaurang structure) Narrative Performed At Negative result for this test determines that [facility] SARS-CoV-2 RNA was not present in the specimen above the Limit of Detection (LOD). However, Negative results do not preclude SARS-CoV-2 infection and should not be used as the sole basis for treatment or patient management decisions. Negative results must be combined with clinical observations, patient history, and epidemiological information. A false negative result may occur if a specimen is improperly collected, transported or handled. A false negative result should be considered if patient's recent exposures or clinical presentation indicate that COVID-19 (SARS-CoV-2) is likely and diagnostic tests for other causes of illness are negative. Re-testing should be considered in cases of suspected false negatives. The limit of detection for this assay is 100 copies/mL. This SARS CoV-2 test is a real-time RT-PCR test intended for the qualitative detection of nucleic acid from SARS-CoV-2 in a nasopharyngeal swab specimen collected from individuals suspected of COVID-19 by their healthcare provider. This test has not been Food and Drug Administration (FDA) cleared or approved. This is a modified version of an approved Emergency Use Authorization (EUA) and is in the process of review by the FDA. Once authorized by the FDA, the issued EUA will be effective until the declaration that circumstances exist justifying the authorization of the emergency use of in vitro diagnostic tests for detection and/or diagnosis of COVID-19 is terminated under Section 564(b)(2) of the Act or the EUA is revoked under Section 564(g) of the Act. Testing was performed using the Taylor SARS-CoV-2 assay. Fact Sheet for Healthcare Providers: https://www.molecular.taylor/fabio/GZ_RZDD-ZwK-7 _HCP_Fact_Sheet_51-246049.pdf Fact Sheet for Healthcare Patients: https://www.molecular.taylor/fabio/FW_NOLB-LyK-2 _Patient_Fact_Sheet_EN_51-065337W1.pdf Performing Laboratory: [address] [place] [address] Performing Organization Address [facility] [place] [address] CENTER Vitamin B12 and Folate (02/27/2020 6:08 AM CDT) Pathologist Sig nature Vitamin B12 283 213 - 816 pg/mL [facility] Folate 8.00 >=7.00 ng/mL [facility] Specimen Blood Narrative Performed At Field Tax Auditor [place] - [facility] Performing Organization Address [facility] Center[facility] Phone Number [address] [address] [place] TSH/Free T4 If Indicated (02/27/2020 6:08 AM CDT) Pathologist Sig nature TSH 1.445 0.350 - 4.940 uIU/mL [facility] Specimen Blood Narrative Performed At Field Tax Auditor [facility] Performing Organization Address [facility] Centercode Phone Number [address] [address] CENTER Phosphorus (02/27/2020 6:08 AM CDT) Pathologist Sig nature Phosphorus 3.6 2.3 - 4.7 mg/dL [facility] Specimen Blood Narrative Performed At Field Tax Auditor JERAD Edmond [facility] Performing Organization Address City/[facility]/Zipcode Phone Number [address] [address] CENTER Magnesium (02/27/2020 6:08 AM CDT)Only the most recent of2 resultswithin the time period is included. Pathologist Sig nature Magnesium 1.7 1.6 - 2.6 mg/dL [facility] Specimen Blood Narrative Performed At Field Tax Auditor JERAD Edmond [facility] Performing Organization Address City/[facility]/Zipcode Phone Number [address] [address] CENTER Hemoglobin A1c - Fasting (02/27/2020 6:08 AM CDT) Pathologist Sig nature Hemoglobin A1C 6.4 (H) 4.3 - 6.1 % [facility] Specimen Blood Narrative Performed At Fasting [facility] Performing Organization Address City/[facility]/Zipcode Phone Number [address] [address] [place] Hepatic function panel (02/27/2020 6:08 AM CDT) Pathologist Sig nature Protein, Total 6.5 6.0 - 8.3 gm/dL [facility] Albumin 3.7 3.5 - 5.0 g/dL [facility] Total Bilirubin 0.4 0.2 - 1.2 mg/dL [facility] Bilirubin, Direct 0.2 0.1 - 0.5 mg/dL [facility] Alkaline Phosphatase 64 40 - 150 U/L [facility] AST 16 5 - 34 U/L [facility] ALT 18 6 - 55 U/L [facility] Specimen Blood Narrative Performed At Field Tax Auditor JERAD Edmond [facility] Performing Organization Address [facility] Centercode Phone Number [facility] [address] [place] [address] CENTER Fasting lipid panel (02/27/2020 6:08 AM CDT) Pathologist Sig nature Triglycerides 169 mg/dL [facility] DICAL [place] Cholesterol 85 mg/dL [facility] ICAL [place] HDL 16 mg/dL [facility] LDL Calculated 35 mg/dL [facility] EDICAL [place] Specimen Blood Narrative Performed At Triglyceride Reference Range: [facility] Low Risk <150 Borderline 150-199 High Risk 200-499 Very High Risk >=500 Cholesterol Reference Range: Low Risk <200 Borderline 200-239 High Risk >240 HDL Cholesterol Reference Range: Low Risk >=60 High Risk <40 LDL Cholesterol Reference Range: Optimal <100 Near Optimal 100-129 Borderline 130-159 High 160-189 Very High >=190 Field Tax Auditor JERAD Edmond Performing Organization Address City/[facility]/Zipcode Phone Number [facility] [address] [place] [address] [place] MR brain without IV contrast (02/26/2020 6:45 PM CDT) Specimen Narrative Performed At FINAL REPORT Health: [place] MR, BRAIN, WITHOUT CONTRAST INDICATION: Ataxia, stroke suspected TECHNIQUE: Multiplanar, multisequence MR imaging of the brain without intravenous contrast. COMPARISON: CT and CTA 02/26/2020 FINDINGS: Intracranial: There are multiple small f oci of restricted diffusion and FLAIR hyperintensity within the artur al left temporal lobe consistent with acute infarcts. Addition al punctate focus of restricted diffusion within the left occ ipital lobe. No acute intracranial hemorrhage. No mas s effect. No hydrocephalus. Visualized intracranial flow voids are o f normal course and caliber. Generalized cerebral atrophy with ex vac uo dilatation of the ventricular system proportionate to sulc i. Small focus of encephalomalacia in the left precentral cortex. Scattered foci of T2 prolongation within the periventricular and subcortical white matter are a nonspecific finding commonly attri buted to chronic small vessel ischemic disease. Sinuses: Mild mucosal thickening in the paranasal sinuses. Trace bilateral mastoid fluid. Orbits: Globes are intact. Calvarium \\T\\ scalp: Unremarkable. 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 Signed: Nataly Chavez MD Report Verified Date/Time: 02/26/2020 19:25:47 Procedure Note Interface, External Ris In - 02/26/2020 7:28 PM CDT FINAL REPORT MR, BRAIN, WITHOUT CONTRAST INDICATION: Ataxia, stroke suspected TECHNIQUE: Multiplanar, multisequence MR imaging of the brain without intravenous contrast. COMPARISON: CT and CTA 02/26/2020 FINDINGS: Intracranial: There are multiple small f oci of restricted diffusion and FLAIR hyperintensity within the artur al left temporal lobe consistent with acute infarcts. Addition al punctate focus of restricted diffusion within the left occ ipital lobe. No acute intracranial hemorrhage. No mas s effect. No hydrocephalus. Visualized intracranial flow voids are o f normal course and caliber. Generalized cerebral atrophy with ex vac uo dilatation of the ventricular system proportionate to sulc i. Small focus of encephalomalacia in the left precentral cortex. Scattered foci of T2 prolongation within the periventricular and subcortical white matter are a nonspecific finding commonly attri buted to chronic small vessel ischemic disease. Sinuses: Mild mucosal thickening in the paranasal sinuses. Trace bilateral mastoid fluid. Orbits: Globes are intact. Calvarium \\T\\ scalp: Unremarkable. 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 Signed: Nataly Chavez MD Report Verified Date/Time: 02/26/2020 1 9:25:47 Performing Organization Address City/State/Zipcode Phone Number Health: [place] ECG 12 lead (02/26/2020 5:52 PM CDT)Only the most recent of2 resultswithin the time period is included. Specimen Narrative Performed At Ventricular Rate 60 BPM GE MUSE Atrial Rate 60 BPM P-R Interval 196 ms QRS Duration 128 ms Q-T Interval 428 ms QTC Calculation(Bazett) 428 ms P [place] 26 degrees R [place] -11 degrees T [place] 20 degrees Normal sinus rhythm Right bundle branch block Abnormal ECG When compared with ECG of 26-FEB-2020 11 :29, No significant change was found Confirmed by Rai NAVARRO BASANT ([id number]) on 02/27/2020 1 :23:50 PM Procedure Note Interface, External Ris In - 02/27/2020 1:23 PM CDT Ventricular Rate 60 BPM Atrial Rate 60 BPM P-R Interval 196 ms QRS Duration 128 ms Q-T Interval 428 ms QTC Calculation(Bazett) 428 ms P [place] 26 degrees R [place] -11 degrees T [place] 20 degrees Normal sinus rhythm Right bundle branch block Abnormal ECG When compared with ECG of 26-FEB-2020 11 :29, No significant change was found Confirmed by Rai NAVARRO, ABRIL ([id number]) o n 02/27/2020 1:23:50 PM Performing Organization Address [facility] Phone Number GE MUSE Urinalysis with Microscopic If Indicated (02/26/2020 2:22 PM CDT) Color, UA Yellow [facility] Clarity, UA Clear [facility] Specific Ceres, 1.020 1.005 - 1.030 [facility] pH, UA 5.5 5.0 - 9.0 [facility] Protein, UA 30 mg/dL (A) Negative [facility] Glucose, UA Negative Negative [facility] Ketones, UA Negative Negative [facility] Bilirubin, UA Negative Negative [facility] Blood, UA Negative Negative [facility] Nitrite, UA Negative Negative [facility] Leukocytes, UA Negative Negative [facility] Urobilinogen, UA 0.2 0.2 - 1.0 mg/dL [facility] Specimen Source [facility] Specimen Urine Performing Organization Address [facility] Phone Number [facility] [address] [place] [address] CT/CTA carotid (02/26/2020 11:44 AM CDT) Specimen Narrative Performed At FINAL REPORT Health: [place] EXAMINATION: CT angiogram of the craig of Pratt and neck with contrast CLINICAL HISTORY: 70-year-old male with subacute neurologic deficit, right arm weakness. COMPARISON: None available TECHNIQUE: The head and neck were scan andry utilizing a multidetector helical scanner from the thoracic inlet to the vertex after the I.V contrast administration of 100 mL of I sovue 370 mg . For optimization of of anatomic evaluation, multi-planar reconstructions, maximum intensity projections, and OpenQan IMRSV 3D off-line post-processing was obtained and perform ed on a dedicated stand-alone workstation under the direct supervision of the interpreting physician. Dose modulation, iterative reconstructio n, and/or weight based adjustment of the mA/kV was utilized to reduce the radiation dose to as low as reasonably achievable. CT ANGIOGRAM OF THE WALES OF PRATT FIN DINGS: Prominent calcified atherosclerotic plaq ue in the bilateral cavernous ICAs with mild to moderate stenoses. Otherwise the internal carotid artery se gments as well as the middle cerebral and anterior cerebral arteries are normal in caliber. The vertebro-basilar circulation is normal. No vascular malformation or aneurysmal dilatation is seen. The draining venous structures are yeny l and patent. Anatomic variation: Anterior Communicating Artery: Patent Posterior Communicating Arteries: Not we ll visualized Vertebral arteries: The left is dominant Accessory anterior cerebral artery. CT ANGIOGRAM OF THE NECK FINDINGS: If present, stenosis of the carotid bulb s is measured based on NASCET criteria i.e area of maximum stenosis co mpared to the cervical ICA distal to the bulb. Minimal calcified plaque near the origin of the left vertebral artery without associated significant stenoses. The origin of the right vertebral and bilateral bilateral common carotid arteries is patent. Mixed, soft and calcified atheroscleroti c plaque in the bilateral carotid bulbs results in mild stenoses ( less than 50%) per NASCET criteria. Right Carotid Artery: The common carotid, internal and externa l carotid arteries at the level of the neck are normal in caliber, and patent, no evidence of stenoses. Left carotid artery: The common carotid, internal and externa l carotid arteries at the level of the neck are normal in caliber, and patent, no evidence of stenoses. Vertebral Arteries: Calcified atherosclerotic plaque of the left intracranial vertebral artery without significant stenoses. Mix ed, soft and calcified plaque in the right intracranial vertebral brittney ry at the level of the foramen magnum results in moderate steno ses. Otherwise both vertebral arteries are normal in morphology and ca liber. The left is dominant.. IMPRESSION: 1.No large vessel occlusion. 2.Atherosclerotic plaque in the bilatera l carotid bulbs result in mild stenosis (less than 50%). 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 4.Atherosclerotic plaque in the bilatera l intracranial vertebral arteries as above. Signed: Rolando Rock MD Report Verified Date/Time: 02/26/2020 11:44:58 Reading Location: [address] Electronically signed by: ROLANDO early 02/26/2020 11:44 AM Procedure Note Interface, External Ris In - 02/26/2020 11:47 AM CDT FINAL REPORT EXAMINATION: CT angiogram of the craig of Pratt and neck with contrast CLINICAL HISTORY: 70-year-old male with subacute neurologic deficit, right arm weakness. COMPARISON: None available TECHNIQUE: The head and neck were scann ed utilizing a multidetector helical scanner from the thoracic inlet to the vertex after the I.V contrast administration of 100 mL of Is ovue 370 mg . For optimization of of anatomic evaluation, multi-planar reconstructions, maximum intensity projections, and OpenQan IMRSV 3D off-line post-processing was obtained and perform ed on a dedicated stand-alone workstation under the direct supervision of the interpreting physician. Dose modulation, iterative reconstructio n, and/or weight based adjustment of the mA/kV was utilized to reduce the radiation dose to as low as reasonably achievable. CT ANGIOGRAM OF THE WALES OF PRATT FIN DINGS: Prominent calcified atherosclerotic plaq ue in the bilateral cavernous ICAs with mild to moderate stenoses. Otherwise the internal carotid artery se gments as well as the middle cerebral and anterior cerebral arteries are normal in caliber. The vertebro-basilar circulation is normal. No vascular malformation or aneurysmal dilatation is seen. The draining venous structures are yeny l and patent. Anatomic variation: Anterior Communicating Artery: Patent Posterior Communicating Arteries: Not we ll visualized Vertebral arteries: The left is dominant Accessory anterior cerebral artery. CT ANGIOGRAM OF THE NECK FINDINGS: If present, stenosis of the carotid bulb s is measured based on NASCET criteria i.e area of maximum stenosis co mpared to the cervical ICA distal to the bulb. Minimal calcified plaque near the origin of the left vertebral artery without associated significant stenoses. The origin of the right vertebral and bilateral bilateral common carotid arteries is patent. Mixed, soft and calcified atheroscleroti c plaque in the bilateral carotid bulbs results in mild stenoses ( less than 50%) per NASCET criteria. Right Carotid Artery: The common carotid, internal and externa l carotid arteries at the level of the neck are normal in caliber, and patent, no evidence of stenoses. Left carotid artery: The common carotid, internal and externa l carotid arteries at the level of the neck are normal in caliber, and patent, no evidence of stenoses. Vertebral Arteries: Calcified atherosclerotic plaque of the left intracranial vertebral artery without significant stenoses. Mix ed, soft and calcified plaque in the right intracranial vertebral brittney ry at the level of the foramen magnum results in moderate steno ses. Otherwise both vertebral arteries are normal in morphology and ca liber. The left is dominant.. IMPRESSION: 1.No large vessel occlusion. 2.Atherosclerotic plaque in the bilatera l carotid bulbs result in mild stenosis (less than 50%). 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 4.Atherosclerotic plaque in the bilatera l intracranial vertebral arteries as above. Signed: Rolando Rock MD Report Verified Date/Time: 02/26/2020 1 1:44:58 Reading Location: [place] [id number] Performing Organization Address City/State/Zipcode Phone Number Health: [place] CTA brain (02/26/2020 11:44 AM CDT) Specimen Narrative Performed At FINAL REPORT Health: [place] EXAMINATION: CT angiogram of the craig of Pratt and neck with contrast CLINICAL HISTORY: 70-year-old male with subacute neurologic deficit, right arm weakness. COMPARISON: None available TECHNIQUE: The head and neck were scan andry utilizing a multidetector helical scanner from the thoracic inlet to the vertex after the I.V contrast administration of 100 mL of I sovue 370 mg . For optimization of of anatomic evaluation, multi-planar reconstructions, maximum intensity projections, and OpenQan luis miguel 3D off-line post-processing was obtained and perform ed on a dedicated stand-alone workstation under the direct supervision of the interpreting physician. Dose modulation, iterative reconstructio n, and/or weight based adjustment of the mA/kV was utilized to reduce the radiation dose to as low as reasonably achievable. CT ANGIOGRAM OF THE WALES OF PRATT FIN DINGS: Prominent calcified atherosclerotic plaq ue in the bilateral cavernous ICAs with mild to moderate stenoses. Otherwise the internal carotid artery se gments as well as the middle cerebral and anterior cerebral arteries are normal in caliber. The vertebro-basilar circulation is normal. No vascular malformation or aneurysmal dilatation is seen. The draining venous structures are yeny l and patent. Anatomic variation: Anterior Communicating Artery: Patent Posterior Communicating Arteries: Not we ll visualized Vertebral arteries: The left is dominant Accessory anterior cerebral artery. CT ANGIOGRAM OF THE NECK FINDINGS: If present, stenosis of the carotid bulb s is measured based on NASCET criteria i.e area of maximum stenosis co mpared to the cervical ICA distal to the bulb. Minimal calcified plaque near the origin of the left vertebral artery without associated significant stenoses. The origin of the right vertebral and bilateral bilateral common carotid arteries is patent. Mixed, soft and calcified atheroscleroti c plaque in the bilateral carotid bulbs results in mild stenoses ( less than 50%) per NASCET criteria. Right Carotid Artery: The common carotid, internal and externa l carotid arteries at the level of the neck are normal in caliber, and patent, no evidence of stenoses. Left carotid artery: The common carotid, internal and externa l carotid arteries at the level of the neck are normal in caliber, and patent, no evidence of stenoses. Vertebral Arteries: Calcified atherosclerotic plaque of the left intracranial vertebral artery without significant stenoses. Mix ed, soft and calcified plaque in the right intracranial vertebral brittney ry at the level of the foramen magnum results in moderate steno ses. Otherwise both vertebral arteries are normal in morphology and ca liber. The left is dominant.. IMPRESSION: 1.No large vessel occlusion. 2.Atherosclerotic plaque in the bilatera l carotid bulbs result in mild stenosis (less than 50%). 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 4.Atherosclerotic plaque in the bilatera l intracranial vertebral arteries as above. Signed: Rolando Rock MD Report Verified Date/Time: 02/26/2020 11:44:58 Reading Location: [place] - B01.626 Electronically signed by: ROLANDO early 02/26/2020 11:44 AM Procedure Note Interface, External Ris In - 02/26/2020 11:47 AM CDT FINAL REPORT EXAMINATION: CT angiogram of the craig of [place] and neck with contrast CLINICAL HISTORY: 70-year-old male with subacute neurologic deficit, right arm weakness. COMPARISON: None available TECHNIQUE: The head and neck were scann ed utilizing a multidetector helical scanner from the thoracic inlet to the vertex after the I.V contrast administration of 100 mL of Is ovue 370 mg . For optimization of of anatomic evaluation, multi-planar reconstructions, maximum intensity projections, and [employer] 3D off-line post-processing was obtained and perform ed on a dedicated stand-alone workstation under the direct supervision of the interpreting physician. Dose modulation, iterative reconstructio n, and/or weight based adjustment of the mA/kV was utilized to reduce the radiation dose to as low as reasonably achievable. CT ANGIOGRAM OF THE WALES OF [place] FIN DINGS: Prominent calcified atherosclerotic plaq ue in the bilateral cavernous ICAs with mild to moderate stenoses. Otherwise the internal carotid artery se gments as well as the middle cerebral and anterior cerebral arteries are normal in caliber. The vertebro-basilar circulation is normal. No vascular malformation or aneurysmal dilatation is seen. The draining venous structures are yeny l and patent. Anatomic variation: Anterior Communicating Artery: Patent Posterior Communicating Arteries: Not we ll visualized Vertebral arteries: The left is dominant Accessory anterior cerebral artery. CT ANGIOGRAM OF THE NECK FINDINGS: If present, stenosis of the carotid bulb s is measured based on NASCET criteria i.e area of maximum stenosis co mpared to the cervical ICA distal to the bulb. Minimal calcified plaque near the origin of the left vertebral artery without associated significant stenoses. The origin of the right vertebral and bilateral bilateral common carotid arteries is patent. Mixed, soft and calcified atheroscleroti c plaque in the bilateral carotid bulbs results in mild stenoses ( less than 50%) per NASCET criteria. Right Carotid Artery: The common carotid, internal and externa l carotid arteries at the level of the neck are normal in caliber, and patent, no evidence of stenoses. Left carotid artery: The common carotid, internal and externa l carotid arteries at the level of the neck are normal in caliber, and patent, no evidence of stenoses. Vertebral Arteries: Calcified atherosclerotic plaque of the left intracranial vertebral artery without significant stenoses. Mix ed, soft and calcified plaque in the right intracranial vertebral brittney ry at the level of the foramen magnum results in moderate steno ses. Otherwise both vertebral arteries are normal in morphology and ca liber. The left is dominant.. IMPRESSION: 1.No large vessel occlusion. 2.Atherosclerotic plaque in the bilatera l carotid bulbs result in mild stenosis (less than 50%). 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 4.Atherosclerotic plaque in the bilatera l intracranial vertebral arteries as above. Signed: Rolando Rock MD Report Verified Date/Time: 02/26/2020 1 1:44:58 Reading Location: [facility] 2 - B01.626 Performing Organization Address City/State/Zipcode Phone Number Health: [place] CT brain/stroke protocol (02/26/2020 11:43 AM CDT) Specimen Narrative Performed At Addendum Begins Health: [place] REPORT STATUS:A No intracranial hemorrhage. Left posterior frontal/precentral gyrus cortico-subcortical hypodensity is new since prior CT of 08/27. The findings were discussed with the RN Brii Colon on 02/26/2020 at 11:15 AM Signed: Rolando Rock MD Report Verified Date/Time: 02/26/2020 11:24:42 Reading Location: [facility] 2 - B01.626 Addendum Ends FINAL REPORT EXAMINATION: Head CT HISTORY: 70-year-old male with subacute neurologic deficit, right arm weakness. COMPARISON: Outside head CT 09/13/2019 TECHNIQUE: Multidetector axial images we re obtained without contrast from the foramen magnum to the vertex. D ose modulation, iterative reconstruction, and/or weight based adju stment of the mA/kV was utilized to reduce the radiation dose to as low as reasonably achievable. FINDINGS: Parenchyma: 1.Subtle ill-defined hypodensity in the left frontal pulido radiata/centrum semiovale white matter a djacent to the left middle frontal gyrus may correspond to an age i ndeterminate infarct, this was not clearly visualized on prior head CT of 09/13/2019. 2.Few scattered and moderate confluent p eriventricular white matter hypodensities, most likely nonspecific c hronic microvascular ischemic changes. 3.No mass or hemorrhage. No CT evidence of acute territorial vascular insult. Extra-axial spaces:No abnormal de nsity. No extra-axial fluid collections Brain volume: Normal for age. Ventricles: No hydrocephalus or d isplacement. Arteries: No density suggestive o f thrombus. Dural sinuses: No abnormal densit y. Extra-axial spaces: No abnormal d ensity. Foramen magnum: No mass, Chiari m alformation, or basilar invagination. Sella: No obvious mass. Paranasal/mastoid sinuses: Opacif ication of the left posterior ethmoidal air cells. Otherwise clear Skull/Scalp: No lytic or blastic lesions. No fractures. IMPRESSION: 1.No acute intracranial hemorrhage. 2.Left frontal white matter hypodensity corresponds to an age indeterminate ischemia which was not see n on prior head CT of 09/13/2019. 3.Mild chronic microvascular ischemic ch anges. Signed: Rolando Rock MD Report Verified Date/Time: 02/26/2020 11:14:42 Reading Location: [employer] Reading [employer] [facility] - B01.626 Electronically signed by: ROLANDO early 02/26/2020 11:24 AM Procedure Note Interface, External Ris In - 02/26/2020 11:44 AM CDT Addendum Begins REPORT STATUS:A No intracranial hemorrhage. Left posterior frontal/precentral gyrus cortico-subcortical hypodensity is new since prior CT of 08/27. The findings were discussed with the RN Brii Colon on 02/26/2020 at 11:15 AM Signed: Rolando Rock MD Report Verified Date/Time: 02/26/2020 1 1:24:42 Reading Location: [employer] Reading [facility] 2 - B01.626 Addendum Ends FINAL REPORT EXAMINATION: Head CT HISTORY: 70-year-old male with subacute neurologic deficit, right arm weakness. COMPARISON: Outside head CT 09/13/2019 TECHNIQUE: Multidetector axial images we re obtained without contrast from the foramen magnum to the vertex. D ose modulation, iterative reconstruction, and/or weight based adju stment of the mA/kV was utilized to reduce the radiation dose to as low as reasonably achievable. FINDINGS: Parenchyma: 1.Subtle ill-defined hypodensity in the left frontal pulido radiata/centrum semiovale white matter a djacent to the left middle frontal gyrus may correspond to an age i ndeterminate infarct, this was not clearly visualized on prior head CT of 09/13/2019. 2.Few scattered and moderate confluent p eriventricular white matter hypodensities, most likely nonspecific c hronic microvascular ischemic changes. 3.No mass or hemorrhage. No CT evidence of acute territorial vascular insult. Extra-axial spaces:No abnormal dens ity. No extra-axial fluid collections Brain volume: Normal for age. Ventricles: No hydrocephalus or dis placement. Arteries: No density suggestive of thrombus. Dural sinuses: No abnormal density. Extra-axial spaces: No abnormal den sity. Foramen magnum: No mass, Chiari mal formation, or basilar invagination. Sella: No obvious mass. Paranasal/mastoid sinuses: Opacific ation of the left posterior ethmoidal air cells. Otherwise clear Skull/Scalp: No lytic or blastic le sions. No fractures. IMPRESSION: 1.No acute intracranial hemorrhage. 2.Left frontal white matter hypodensity corresponds to an age indeterminate ischemia which was not see n on prior head CT of 09/13/2019. 3.Mild chronic microvascular ischemic ch anges. Signed: Rolando Rock MD Report Verified Date/Time: 02/26/2020 1 1:14:42 Reading Location: [place] [id number] Performing Organization Address City/State/Zipcode Phone Number [employer] RIS XR chest 1 view portable / bedside (02/26/2020 11:35 AM CDT) Specimen Narrative Performed At FINAL REPORT Health: [place] RAD, CHEST, 1 VIEW, NON DEPT INDICATION: muscle weakness COMPARISON: September 13, 2019 FINDINGS: Portable frontal view of the c hest. IMPRESSION: Support Lines: Port-A-Cath tip overlies the atriocaval junction. Lungs and pleura: Unchanged airspace and pleural opacities. No pneumothorax. Heart and mediastinum: Stable contours. Stable surgical changes. Additional findings: None. Signed: Sarah Beth Keen MD Report Verified Date/Time: 02/26/2020 11:31:39 Reading Location: [facility] y Reading Room Procedure Note Interface, External Ris In - 02/26/2020 11:36 AM CDT FINAL REPORT RAD, CHEST, 1 VIEW, NON DEPT INDICATION: muscle weakness COMPARISON: September 13, 2019 FINDINGS: Portable frontal view of the c hest. IMPRESSION: Support Lines: Port-A-Cath tip overlies the atriocaval junction. Lungs and pleura: Unchanged airspace and pleural opacities. No pneumothorax. Heart and mediastinum: Stable contours. Stable surgical changes. Additional findings: None. Signed: Sarah Beth Keen MD Report Verified Date/Time: 02/26/2020 1 1:31:39 Reading [facility] Reading Room Performing Organization Address City/State/Zipcode Phone Number RIS ECG/EKG Interpretation (02/26/2020 11:05 AM CDT) Narrative Performed At Griselda Funes MD 02/25 12:25 PM ECG/EKG Interpretation Date/Time: 02/26/2020 12:24 PM Performed by: Griselda Funes MD Authorized by: Griselda Funes MD The ECG was interpreted by ED physician. This ECG was not compared with previous ECG(s).The ECG is interpreted a s sinus rhythm. Rate is normal rate. Heart rate is [address] segments normal. T-wave inversion in lead(s) V1, V2 and V3. T-wave flattening in lead(s) II, III and aVF. A xis is normal. Clinical Impression: non-specific ECGECG reviewed and does not meet STEMI criteria. PT/PTT (02/26/2020 10:58 AM CDT) Pathologist [facility] Protime 9.9 9.8 - 12.0 seconds [facility] INR 0.96 <=5.90 [facility] PTT 20.6 (L) 25.8 - 34.5 seconds [facility] Specimen Blood Narrative Performed At RECOMMENDED COUMADIN/WARFARIN INR THERAP Y RANGES [facility] STANDARD DOSE: 2.0 - 3.0 Includes: PROPHYLAXIS for venous thrombosis, systemic embolization; TREATMENT fo r venous thrombosis and/or pulmonary embol us. HIGH RISK: Target INR is 2.5-3.5 for patients with mechanical heart valves. Performing Organization Address [facility] Phone Number [facility] [address] [place] [address] Troponin I (02/26/2020 10:58 AM CDT) Pathologist [facility] Troponin I 0.01 0.00 - 0.03 ng/mL [facility] Specimen Blood Narrative Performed At Troponin I (TnI) levels must be interpreted in the [facility] context of the presenting symptoms and the clinical findings. Elevated TnI levels indicate myocardial damage, but are not specific for ischemic heart diseas e. Elevated TnI levels are seen in patients with other cardiac conditions (including myocarditis and congesti ve heart failure), and slight TnI elevations occur in patients with other conditions, including sepsis, magnolia l failure, acidosis, acute neurological disease, and persistent tachyarrhythmia. Performing Organization Address City/[facility] Cent[facility] Phone Number [facility] [address] [place] [address] B-type Natriuretic Factor (BNP) (02/26/2020 10:58 AM CDT) Pathologist [facility] BNP 18 0 - 100 pg/mL [facility] R Specimen Blood Performing Organization Address City/[facility]/Zipcode Phone Number [facility] [address] [place] [address] CT Chest without IV Contrast (01/05/2020 6:12 PM CDT)Only the most recent of2 resultswithin the time period is included. Specimen Narrative Performed At FINAL REPORT [employer] RIS CT of the chest, abdomen and pelvis, wit hout contrast Clinical History: Unlisted Reason for Exam C64.2 Technique: CT of the chest, abdomen and pelvis is performed without intravenous contrast administration. T his exam was performed according to our departmental dose optim ization program which includes automated exposure control, adj ustment of the mA and/or kV according to patient's size and/or use o f iterative reconstructive technique. Comparison Film: October 16, 2019 and May ruary 2019 Discussion: There is a right-sided Port-A-Cath. Visu alized thyroid gland is normal. No supraclavicular, axillary, me diastinal or hilar lymphadenopathy. Heart and pericardium a re unremarkable. No pleural effusion. There is increased airspace opacity, and septal thickening the left lower lobe. No bronc hiectasis or bronchial wall thickening. A few scattered calcified gr anulomas are present. No liver lesion is identified. No biliar y ductal dilatation, gallbladder is normal. The spleen, pancreas, and adrenal glands are normal. Status post left nephrectomy. There is a 4 mm nonobstructive stone in the right kidney. No hydronephrosis or c ontour deforming lesion. No evidence of bowel obstruction, or abn ormal bowel wall thickening. In the pelvis, bladder is unremarkable. Prostate gland is enlarged. There is a small fat-containing right in guinal hernia. Stable postoperative change of the right iliac crest. No new lesion identified. Again noted is a 3.5 cm aneu rysm of the infrarenal abdominal aorta. No ascites, or lymphade nopathy. Impression: Progression of interstitial and airspace opacities in the left lower lobe, which may be due to infection, asp iration or drug reaction, correlate clinically. No disease progression identified in the abdomen or pelvis. Status post left nephrectomy. 4 mm nonob structive stone in the right kidney. Enlarged prostate gland. Signed: Karan Fregoso MD Report Verified Date/Time: 01/06/2020 08:51:39 Reading Location: [address] Reading Room Procedure Note Interface, External Ris In - 01/06/2020 8:53 AM CDT FINAL REPORT CT of the chest, abdomen and pelvis, wit hout contrast Clinical History: Unlisted Reason for E xam C64.2 Technique: CT of the chest, abdomen and pelvis is performed without intravenous contrast administration. Th is exam was performed according to our departmental dose optim ization program which includes automated exposure control, adj ustment of the mA and/or kV according to patient's size and/or use o f iterative reconstructive technique. Comparison Film: October 16, 2019 and 2019 Discussion: There is a right-sided Port-A-Cath. Visu alized thyroid gland is normal. No supraclavicular, axillary, me diastinal or hilar lymphadenopathy. Heart and pericardium a re unremarkable. No pleural effusion. There is increased airspace opacity, and septal thickening the left lower lobe. No bronc hiectasis or bronchial wall thickening. A few scattered calcified gr anulomas are present. No liver lesion is identified. No biliar y ductal dilatation, gallbladder is normal. The spleen, pancreas, and adrenal glands are normal. Status post left nephrectomy. There is a 4 mm nonobstructive stone in the right kidney. No hydronephrosis or c ontour deforming lesion. No evidence of bowel obstruction, or abn ormal bowel wall thickening. In the pelvis, bladder is unremarkable. Prostate gland is enlarged. There is a small fat-containing right in guinal hernia. Stable postoperative change of the right iliac crest. No new lesion identified. Again noted is a 3.5 cm aneu rysm of the infrarenal abdominal aorta. No ascites, or lymphade nopathy. Impression: Progression of interstitial and airspace opacities in the left lower lobe, which may be due to infection, asp iration or drug reaction, correlate clinically. No disease progression identified in the abdomen or pelvis. Status post left nephrectomy. 4 mm nonob structive stone in the right kidney. Enlarged prostate gland. Signed: Karan Fregoso MD Report Verified Date/Time: 01/06/2020 0 8:51:39 Reading Location: [facility] [id number] [facility] Reading Room Performing Organization Address City/State/Zipcode Phone Number GE RIS CT Abdomen/Pelvis without IV Contrast (01/05/2020 6:12 PM CDT)Only the most recent of2 resultswithin the time period is included. Specimen Narrative Performed At FINAL REPORT Health: [place] CT of the chest, abdomen and pelvis, wit hout contrast Clinical History: Unlisted Reason for Exam C64.2 Technique: CT of the chest, abdomen and pelvis is performed without intravenous contrast administration. T his exam was performed according to our departmental dose optim ization program which includes automated exposure control, adj ustment of the mA and/or kV according to patient's size and/or use o f iterative reconstructive technique. Comparison Film: October 16, 2019 and May ruary 2019 Discussion: There is a right-sided Port-A-Cath. Visu alized thyroid gland is normal. No supraclavicular, axillary, me diastinal or hilar lymphadenopathy. Heart and pericardium a re unremarkable. No pleural effusion. There is increased airspace opacity, and septal thickening the left lower lobe. No bronc hiectasis or bronchial wall thickening. A few scattered calcified gr anulomas are present. No liver lesion is identified. No biliar y ductal dilatation, gallbladder is normal. The spleen, pancreas, and adrenal glands are normal. Status post left nephrectomy. There is a 4 mm nonobstructive stone in the right kidney. No hydronephrosis or c ontour deforming lesion. No evidence of bowel obstruction, or abn ormal bowel wall thickening. In the pelvis, bladder is unremarkable. Prostate gland is enlarged. There is a small fat-containing right in guinal hernia. Stable postoperative change of the right iliac crest. No new lesion identified. Again noted is a 3.5 cm aneu rysm of the infrarenal abdominal aorta. No ascites, or lymphade nopathy. Impression: Progression of interstitial and airspace opacities in the left lower lobe, which may be due to infection, asp iration or drug reaction, correlate clinically. No disease progression identified in the abdomen or pelvis. Status post left nephrectomy. 4 mm nonob structive stone in the right kidney. Enlarged prostate gland. Signed: Karan Fregoso MD Report Verified Date/Time: 01/06/2020 08:51:39 Reading Location: [address] Reading Room Procedure Note Interface, External Ris In - 01/06/2020 8:53 AM CDT FINAL REPORT CT of the chest, abdomen and pelvis, wit hout contrast Clinical History: Unlisted Reason for E xam C64.2 Technique: CT of the chest, abdomen and pelvis is performed without intravenous contrast administration. Th is exam was performed according to our departmental dose optim ization program which includes automated exposure control, adj ustment of the mA and/or kV according to patient's size and/or use o f iterative reconstructive technique. Comparison Film: October 16, 2019 and 2019 Discussion: There is a right-sided Port-A-Cath. Visu alized thyroid gland is normal. No supraclavicular, axillary, me diastinal or hilar lymphadenopathy. Heart and pericardium a re unremarkable. No pleural effusion. There is increased airspace opacity, and septal thickening the left lower lobe. No bronc hiectasis or bronchial wall thickening. A few scattered calcified gr anulomas are present. No liver lesion is identified. No biliar y ductal dilatation, gallbladder is normal. The spleen, pancreas, and adrenal glands are normal. Status post left nephrectomy. There is a 4 mm nonobstructive stone in the right kidney. No hydronephrosis or c ontour deforming lesion. No evidence of bowel obstruction, or abn ormal bowel wall thickening. In the pelvis, bladder is unremarkable. Prostate gland is enlarged. There is a small fat-containing right in guinal hernia. Stable postoperative change of the right iliac crest. No new lesion identified. Again noted is a 3.5 cm aneu rysm of the infrarenal abdominal aorta. No ascites, or lymphade nopathy. Impression: Progression of interstitial and airspace opacities in the left lower lobe, which may be due to infection, asp iration or drug reaction, correlate clinically. No disease progression identified in the abdomen or pelvis. Status post left nephrectomy. 4 mm nonob structive stone in the right kidney. Enlarged prostate gland. Signed: Karan Fregoso MD Report Verified Date/Time: 01/06/2020 0 8:51:39 Reading Location: [facility] C0X [facility] Reading Room Performing Organization Address City/State/Zipcode Phone Number [employer] CT Abdomen/Pelvis with IV Contrast (06/15/2019 2:41 PM CALIBRATION TESTER)Only the most recent of2 resultswithin the time period is included. 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 T his exam was performed according to our departmental dose optim ization program which includes automated exposure control, adj ustment of the mA and/or kV according to patient's size and/or use o f iterative reconstructive technique. Comparison Film: March 06, 2019 and September 18, 2018 Discussion: No supraclavicular, or axillary lymphade nopathy. There is a right-sided Port-A-Cath. A few nonspecif ic mediastinal lymph nodes are without interval change. Heart and p ericardium are unremarkable. In the right middle lobe, there is a teri ewhat linear, irregularly-shaped small opacity in the middle lobe. In the medial right lower lobe, there is a new 4 mm no dule. No consolidation, or pleural effusion. Central airways are pa tent, no bronchiectasis, or bronchial wall thickening. No liver lesion is identified. There is no biliary ductal dilatation, and the gallbladder is unremarkable. The spleen, pancreas, adrenal glands are unremarkable. Status post left nephrectomy. There is n o surgical bed recurrent mass. Right kidney demonstrates no mass, or hydronephrosis. There is a 3 mm nonobstructive stone. No evidence of bowel obstruction, or abn ormal bowel wall thickening. Normal appendix. In the pelvis, bladder is unremarkable. Prostate gland is enlarged. There is advanced atherosclerotic calcif ication. In the infrarenal abdominal aorta, there is a 3.5 cm aneur ysm. No lymphadenopathy or ascites. Status post surgical fixation of the rig ht iliac crest along with placement of cement material. No recurre nt mass is identified allowing for hardware artifact in this r egion. Osseous structures demonstrate degenerative changes. No new bony lesion is identified. Impression: Status post left nephrectomy. No new dis ease identified in the abdomen or pelvis. A 4 mm nodule in the right lower lobe is new, and there is also a small ill-defined opacity in the right m iddle lobe. Both are amenable to follow-up. An abdominal aortic aneurysm measures 3. 5 cm in diameter. A follow-up examination is recommended sohail ry 2 years. Nonocclusive stone in the right kidney. Enlarged prostate gland. 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 Th is exam was performed according to our departmental dose optim ization program which includes automated exposure control, adj ustment of the mA and/or kV according to patient's size and/or use o f iterative reconstructive technique. Comparison Film: March 06, 2019 and M ay 2018 Discussion: No supraclavicular, or axillary lymphade nopathy. There is a right-sided Port-A-Cath. A few nonspecif ic mediastinal lymph nodes are without interval change. Heart and p ericardium are unremarkable. In the right middle lobe, there is a teri ewhat linear, irregularly-shaped small opacity in the middle lobe. In the medial right lower lobe, there is a new 4 mm no dule. No consolidation, or pleural effusion. Central airways are pa tent, no bronchiectasis, or bronchial wall thickening. No liver lesion is identified. There is no biliary ductal dilatation, and the gallbladder is unremarkable. The spleen, pancreas, adrenal glands are unremarkable. Status post left nephrectomy. There is n o surgical bed recurrent mass. Right kidney demonstrates no mass, or hydronephrosis. There is a 3 mm nonobstructive stone. No evidence of bowel obstruction, or abn ormal bowel wall thickening. Normal appendix. In the pelvis, bladder is unremarkable. Prostate gland is enlarged. There is advanced atherosclerotic calcif ication. In the infrarenal abdominal aorta, there is a 3.5 cm aneur ysm. No lymphadenopathy or ascites. Status post surgical fixation of the rig ht iliac crest along with placement of cement material. No recurre nt mass is identified allowing for hardware artifact in this r egion. Osseous structures demonstrate degenerative changes. No new bony lesion is identified. Impression: Status post left nephrectomy. No new dis ease identified in the abdomen or pelvis. A 4 mm nodule in the right lower lobe is new, and there is also a small ill-defined opacity in the right m iddle lobe. Both are amenable to follow-up. An abdominal aortic aneurysm measures 3. 5 cm in diameter. A follow-up examination is recommended sohail ry 2 years. Nonocclusive stone in the right kidney. Enlarged prostate gland. Signed: Karan Fregoso MD Report Verified Date/Time: 06/15/2019 1 6:30:24 Reading Location: [facility] [id number] [facility] Reading Room Performing Organization Address City/State/Zipcode Phone Number Health: [place] CT Chest with IV Contrast (06/15/2019 2:41 PM CALIBRATION TESTER)Only the most recent of2 resultswithin the time period is included. 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 T his exam was performed according to our departmental dose optim ization program which includes automated exposure control, adj ustment of the mA and/or kV according to patient's size and/or use o f iterative reconstructive technique. Comparison Film: March 06, 2019 and September 18, 2018 Discussion: No supraclavicular, or axillary lymphade nopathy. There is a right-sided Port-A-Cath. A few nonspecif ic mediastinal lymph nodes are without interval change. Heart and p ericardium are unremarkable. In the right middle lobe, there is a teri ewhat linear, irregularly-shaped small opacity in the middle lobe. In the medial right lower lobe, there is a new 4 mm no dule. No consolidation, or pleural effusion. Central airways are pa tent, no bronchiectasis, or bronchial wall thickening. No liver lesion is identified. There is no biliary ductal dilatation, and the gallbladder is unremarkable. The spleen, pancreas, adrenal glands are unremarkable. Status post left nephrectomy. There is n o surgical bed recurrent mass. Right kidney demonstrates no mass, or hydronephrosis. There is a 3 mm nonobstructive stone. No evidence of bowel obstruction, or abn ormal bowel wall thickening. Normal appendix. In the pelvis, bladder is unremarkable. Prostate gland is enlarged. There is advanced atherosclerotic calcif ication. In the infrarenal abdominal aorta, there is a 3.5 cm aneur ysm. No lymphadenopathy or ascites. Status post surgical fixation of the rig ht iliac crest along with placement of cement material. No recurre nt mass is identified allowing for hardware artifact in this r egion. Osseous structures demonstrate degenerative changes. No new bony lesion is identified. Impression: Status post left nephrectomy. No new dis ease identified in the abdomen or pelvis. A 4 mm nodule in the right lower lobe is new, and there is also a small ill-defined opacity in the right m iddle lobe. Both are amenable to follow-up. An abdominal aortic aneurysm measures 3. 5 cm in diameter. A follow-up examination is recommended sohail ry 2 years. Nonocclusive stone in the right kidney. Enlarged prostate gland. 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 Th is exam was performed according to our departmental dose optim ization program which includes automated exposure control, adj ustment of the mA and/or kV according to patient's size and/or use o f iterative reconstructive technique. Comparison Film: March 06, 2019 and M ay 2018 Discussion: No supraclavicular, or axillary lymphade nopathy. There is a right-sided Port-A-Cath. A few nonspecif ic mediastinal lymph nodes are without interval change. Heart and p ericardium are unremarkable. In the right middle lobe, there is a teri ewhat linear, irregularly-shaped small opacity in the middle lobe. In the medial right lower lobe, there is a new 4 mm no dule. No consolidation, or pleural effusion. Central airways are pa tent, no bronchiectasis, or bronchial wall thickening. No liver lesion is identified. There is no biliary ductal dilatation, and the gallbladder is unremarkable. The spleen, pancreas, adrenal glands are unremarkable. Status post left nephrectomy. There is n o surgical bed recurrent mass. Right kidney demonstrates no mass, or hydronephrosis. There is a 3 mm nonobstructive stone. No evidence of bowel obstruction, or abn ormal bowel wall thickening. Normal appendix. In the pelvis, bladder is unremarkable. Prostate gland is enlarged. There is advanced atherosclerotic calcif ication. In the infrarenal abdominal aorta, there is a 3.5 cm aneur ysm. No lymphadenopathy or ascites. Status post surgical fixation of the rig ht iliac crest along with placement of cement material. No recurre nt mass is identified allowing for hardware artifact in this r egion. Osseous structures demonstrate degenerative changes. No new bony lesion is identified. Impression: Status post left nephrectomy. No new dis ease identified in the abdomen or pelvis. A 4 mm nodule in the right lower lobe is new, and there is also a small ill-defined opacity in the right m iddle lobe. Both are amenable to follow-up. An abdominal aortic aneurysm measures 3. 5 cm in diameter. A follow-up examination is recommended sohail ry 2 years. Nonocclusive stone in the right kidney. Enlarged prostate gland. Signed: Karan Fregoso MD Report Verified Date/Time: 06/15/2019 1 6:30:24 Reading Location: [facility] [id number] [facility] Reading Room Performing Organization Address City/State/Zipcode Phone Number GE RIS POC-Creatinine (06/15/2019 2:17 PM CALIBRATION TESTER)Only the most recent of2 resultswithin the time period is included. POC-Creatinine 1.5 (H)Comment: 0.6 - 1.[address] [facility] mg/dL [facility] [address] [facility] [address] POC-EGFR 46 mL/min/1.73M2 [facility] CENTER Specimen Blood Performing Organization Address City/State/Zipcode Phone Number [facility] [address] [place] [address] CENTER XR bilateral hips to include pelvis (03/19/2019 11:45 AM CALIBRATION TESTER) Specimen Narrative Performed At FINAL REPORT GE RIS Radiographs of the hips and pelvis HISTORY: Pain COMPARISON: August 13, 2018. FINDINGS: Bones: No acute displaced fracture. Osseous alignment is within normal limit s. Joints: Scattered degenerative change. No osseou s erosion. Chronic appearing deformity of the superior-lateral right iliac bone. Surgical screws through the right iliac bone are intact. Soft tissues: The soft tissues appear unremarkable. IMPRESSION: Scattered degenerative change. No osseou s erosion. Chronic appearing deformity of the super ior-lateral right iliac bone. Surgical screws through the right iliac bone are intact. Signed: Tamara Tesfaye MD Report Verified Date/Time: 03/19/2019 13:33:29 Reading Location: [employer] [facility] 1 - [id number] Electronically signed by: TAMARA early 03/19/2019 01:33 PM Procedure Note Interface, External Ris In - 03/19/2019 1:35 PM CALIBRATION TESTER FINAL REPORT Radiographs of the hips and pelvis HISTORY: Pain COMPARISON: August 13, 2018. FINDINGS: Bones: No acute displaced fracture. Osseous alignment is within normal limit s. Joints: Scattered degenerative change. No osseou s erosion. Chronic appearing deformity of the superior-lateral right iliac bone. Surgical screws through the right iliac bone are intact. Soft tissues: The soft tissues appear unremarkable. IMPRESSION: Scattered degenerative change. No osseou s erosion. Chronic appearing deformity of the super ior-lateral right iliac bone. Surgical screws through the right iliac bone are intact. Signed: Tamara Tesfaye MD Report Verified Date/Time: 03/19/2019 1 3:33:29 Reading Location: [employer] [facility] 1 - [id number] Performing Organization Address City/State/Zipcode Phone Number RIS after 03/01/2019 Insurance Payer Benefit Plan / Subscriber ID Effective Dates Phone Addre ss Type Group MEDICARE MEDICARE A B [id number] 2013-Presen Medicare t MCR GENERIC MEDICARE [id number] 2017-Present Medigap SUPPLEMENT/ONEIL SUPPLEMENT VIDUAL Advance Directives For more information, please contact: [phone] Code Status Date Activated Date Inactivated Comments Full Code 02/26/2020 3:52 PM This code status was determined by: Patient Full Code 08/21/2018 10:21 PM 08/25/2018 7:01 [...]
--- OUTSIDE RECORDS SUMMARY | 2020-03-01 15:29 | XMS REPORT | Summary of Care ---
:1950 Author Organization [facility] Address [address] [place] [address] Care Team Providers Name Role Phone MD Mu Primary Care Provider Reason for Visit Reason Comments Assessment Encounter Details Date Type Department Care Team Description 12/16/2019 Telephone [facility] Family Medicine Juma Li MD Assessment - [address] [place] [facility] [address] [place] [address] [phone] Allergies Active Allergy Reactions Severity Noted Date Comments Metoclopramide Hcl Rash 06/03/2012 documented as of this encounter (statuses as of 12/16/2019) Medications Medication Sig Dispensed Refills Start Date End Date Status ipratropium (ATROVENT) 0 04/15/2012 Active 0.03 % nasal sprayIndications: Type II or unspecified type diabetes mellitus without mention of complication, uncontrolled azelastine 137 mcg Use 1 [place] in 30 mL 5 11/03/2018 Active (0.1 %) nasal each nostril 2 sprayIndications: (two) times Allergic rhinitis, daily. Use in unspecified each nostril as seasonality, directed unspecified trigger tamsulosin 0.4 mg 24 Take 1 capsule 90 capsule 1 05/06/2019 Active hr capsuleIndications: by mouth daily. BPH with obstruction/lower urinary tract symptoms omeprazole 40 mg TAKE 1 CAPSULE 90 capsule 0 05/06/2019 Active capsuleIndications: BY MOUTH DAILY Gastroesophageal reflux disease, esophagitis presence not specified metFORMIN 1,000 mg Take 1 tablet by 180 tablet 1 05/06/2019 Active tabletIndications: mouth 2 (two) Diabetes mellitus type times daily. 2, uncontrolled, without complications LOVAZA, [id number] TAKE 4 CAPSULES 360 capsule 1 05/06/2019 Active ethyl esters, 1 gram BY MOUTH EVERY capsuleIndications: DAY Other hyperlipidemia lisinopril 10 mg Take 1 tablet by 90 tablet 0 05/06/2019 Active tabletIndications: mouth every Essential morning. hypertension, benign etodolac 500 mg Take 1 tablet by 180 tablet 1 05/06/2019 Active tabletIndications: mouth 2 (two) Arthritis times daily. ondansetron (ZOFRAN) 4 Take 1 tablet by 30 tablet 1 05/06/2019 Active mg tabletIndications: mouth every 8 Gastroesophageal (eight) hours as reflux disease, needed for esophagitis presence Nausea and not specified Vomiting (N/V). ONETOUCH ULTRA2 METER Use as directed 1 Kit 0 07/07/2019 Active KitIndications: for once a day Diabetes mellitus type blood glucose 2, uncontrolled, monitoring for without complications ICD: E11.9 ONETOUCH SURESOFT Use as directed 1 Each 0 07/07/2019 Active LANCING DEV 28 gauge for once a day MiscIndications: blood glucose Diabetes mellitus type monitoring for 2, uncontrolled, ICD: E11.9 without complications ONETOUCH ULTRASOFT Use as directed 100 Each 0 07/07/2019 Active LANCETS for once a day MiscIndications: blood glucose Diabetes mellitus type monitoring for 2, uncontrolled, ICD: E11.9 without complications blood sugar diagnostic Use as directed 100 Strip 0 07/15/2019 Active (ONETOUCH ULTRA BLUE for twice a day TEST STRIP) blood glucose stripIndications: monitoring for Diabetes mellitus type ICD: E11.9 2, uncontrolled, without complications metoprolol tartrate 25 Take 1 tablet by 60 tablet 5 09/29/2019 Active mg tabletIndications: mouth 2 (two) Cerebrovascular times daily. accident (CVA), unspecified mechanism amLODIPine 5 mg Take 1 tablet by 30 tablet 5 11/04/2019 Active tabletIndications: mouth daily. Essential hypertension, benign GLIMEPIRIDE 2 mg TAKE 1 TABLET BY 30 tablet 1 12/03/2019 Active tabletIndications: MOUTH DAILY WITH Diabetes mellitus type BREAKFAST 2, uncontrolled, without complications documented as of this encounter (statuses as of 12/16/2019) Active Problems Problem Noted Date Stage 2 chronic kidney disease 05/27/2019 Diabetes mellitus type 2, uncontrolled, without compli cations 06/03/2012 Overview: ICD10 Diagnosis Term Seamer Elastic Band Utility Essential hypertension, benign 06/03/2012 HLD (hyperlipidemia) 06/03/2012 documented as of this encounter (statuses as of 12/16/2019) Immunizations Name Administration Dates Next Due Pneumococcal 13 Conjugate, PCV13 (Prevnar 13) 11/04/2019 documented as of this encounter Social History Tobacco Use Types Packs/Day Years Used Date Former Smoker Smokeless Tobacco: Former User Q uit: 06/03/1987 Comments: quit 1987 Alcohol Use Drinks/Week oz/Week Comments Yes occasional beer Sex Assigned at Date Recorded Not on file COVID-19 Exposure Response Date Recorded In the last month, have you been in contact with No / Unsure 12/09/2019 1:36 PM CDT someone who was confirmed or suspected to have Coronavirus / COVID-19? documented as of this encounter Last Filed Vital Signs Not on filedocumented in this encounter Miscellaneous Notes Telephone Encounter - Diana Angeles LVN - 12/16/2019 1:26 PM CDMEHREENarla notified. elephone Encounter - Juma Dobbins MD - 12/16/2019 12:54 PM CDTContinue to [facility]. 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 elephone Encounter - Lucia Pike - 12/16/2019 11:34 AM CDTMarla with [facility] calling to report patient blood pressure reading for today 176/77. Please contact [facility] at [phone]. documented in this encounter Plan of Treatment Health Maintenance Due Date Last Done Comments EYE EXAM 02/24/1958 FOOT EXAM 02/24/1966 DTaP,Tdap,and Td Vaccines (1 - 02/24/1967 Tdap) COLON CANCER SCREENING ANNUAL 02/24/1998 FIT/FOBT COLON CANCER SCREENING FIT DNA 02/24/1998 EVERY 3 YEARS COLON CANCER SCREENING 02/24/1998 SIGMOIDOSCOPY EVERY 5 YEARS Zoster Recombinant Vaccine 02/24/1998 (SHINGRIX) (1 of 2) URINE MICROALBUMIN 11/02/2016 11/03/2015 HgA1C 11/04/2019 05/06/2019, 05/06/2018, 09/12/2017, Additional history exists INFLUENZA VACCINE (#1) 2019 LDL-C 05/06/2020 05/06/2019, 05/06/2018, 09/12/2017, Additional history exists CREATININE (SERUM) 05/22/2020 05/22/2019, 05/06/2019, 05/06/2018, Additional history exists LUNG CANCER SCREEN: Recommended 10/15/2020 10/16/2019 for age 55-80 with 30 + pack year history Depression Screening 11/03/2020 11/04/2019 Medicare Wellness Visit 11/03/2020 11/04/2019, 11/04/2019 PNEUMOCOCCAL VACCINES 65+ (2 of 2 11/03/2020 11/04/2019 - PPSV23) COLONOSCOPY 09/07/2029 09/08/2019 Colorectal Cancer Screening 09/07/2029 HEPATITIS C (HCV) SCREEN Completed 11/04/2019 documented as of this encounter Results Not on filedocumented in this encounter Insurance Payer Benefit Plan / Subscriber ID Effective Phone Address T ype Group Dates MEDICARE MEDICARE PART A [id number] 2013-Pres [phone] Medicare & B ent [id number] [place] [id number] EQUITABLE EQUITABLE [id number] 2017-Yovani spence documented as of this encounter Advance Directives Type Date Recorded Patient Musculoskeletal Physician Explanati on Advance Directives and Living Will Power of Educational Program Director
--- OUTSIDE RECORDS SUMMARY | 2020-03-01 15:29 | XMS REPORT | Summary of Care ---
:1950 Author Organization [facility] Address [address] [place] [address] Care Team Providers Name Role Phone MD Mu Primary Care Provider Reason for Visit Reason Comments LAB Encounter Details Date Type Department Care Team Description 12/09/2019 Laboratory Only [facility] Family Fifi Leonard medina, FILTER TENDER JELLY [address] [place] [id number] Suspected Covid-19 [facility], Adc Fam Pob I Virus Infection [address] [place] [address] (Primary D x) [place] [address] Allergies Active Allergy Reactions Severity Noted Date Comments Metoclopramide Hcl Rash 06/03/2012 documented as of this encounter (statuses as of 12/09/2019) Medications Medication Sig Dispensed Refills Start Date End Date Status ipratropium (ATROVENT) 0 04/15/2012 Active 0.03 % nasal sprayIndications: Type II or unspecified type diabetes mellitus without mention of complication, uncontrolled azelastine 137 mcg Use 1 [place] in 30 mL 5 11/03/2018 Active (0.1 [...] times daily. 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 ? Goggles ? N95 Mask ? Gloves ? Gown RR 20 Pulse Ox 97% Patient educated on plan of care for visit, swabbing technique, risks and benefits of test and length of time to receive results. Verbal consent obtained to perform test. CDC Fact Sheet for Patients nCoV Diagnostic Panel dated 07/12/2019 and Factsheet What to Do if Sick with COVID 19 06/22/19 provided. Patient swabbed in bilateral nostrils per appropriate nasopharyngeal technique, and patient tolerated well. Patient was discharged from the testing clinic in stable condition. DENNIS GOFF MA 12/09/2019 1:34 PM documented in this encounter Plan of Treatment Name Type Priority Associated Diagnoses Order S chedule COVID-19 (PCR MOLECULAR LAB Routine Suspected Covid-1 9 Virus Expected: 12/09/2019, TESTING) Infection Expires: 2020 Health Maintenance Due Date Last Done Comments [...] Results Not on filedocumented in this encounter Visit Diagnoses Diagnosis Suspected Covid-19 Virus Infection - [facility] documented in this encounter Additional Health Concerns Infection Onset Date Last Indicated Resolved Time COVID-19 Rule Out 12/09/2019 12/09/2019 documented as of this encounter Insurance Payer Benefit Plan / Subscriber ID Effective Phone Address T ype Group Dates MEDICARE MEDICARE PART A [id number] 2013-Pres [phone] Medicare & B ent 82 [id number] [place] [id number] EQUITABLE EQUITABLE [id number] 2017-Yovani spence documented as of this encounter Advance Directives Type Date Recorded Patient Filler Feeder Explanati on Advance Directives and Living Will Power of Hat Lining Paster
--- OUTSIDE RECORDS SUMMARY | 2020-03-01 15:29 | XMS REPORT | Summary of Care ---
:1950 Author Organization [facility] Address [address] [place] [address] Care Team Providers Name Role Phone MD Mu Primary Care Provider Reason for Visit Reason Comments Assessment Encounter Details Date Type Department Care Team Description 12/04/2019 Telephone [facility] Pediatric and Juma Dobbins MD Assessment Adult Primary Care- [address] [place] [address] [place] [address], [address] [place] [address] Allergies Active Allergy Reactions Severity Noted Date Comments Metoclopramide Hcl Rash 06/03/2012 documented as of this encounter (statuses as of 12/04/2019) Medications Medication Sig Dispensed Refills Start Date End Date Status ipratropium (ATROVENT) 0 04/15/2012 Active 0.03 % nasal sprayIndications: Type II or unspecified type diabetes mellitus without mention of complication, uncontrolled azelastine 137 mcg Use 1 [place] in 30 mL 5 11/03/2018 Active (0.1 [...] times daily. 2, uncontrolled, without complications LOVAZA, [id number] TAKE 4 CAPSULES 360 capsule 1 05/06/2019 [...] as of this encounter (statuses as of 12/04/2019) Active Problems Problem Noted Date Stage 2 chronic kidney disease 05/27/2019 Diabetes mellitus type 2, uncontrolled, without compli cations 06/03/2012 Overview: ICD10 Diagnosis Term Food Service Sales Representatives Utility Essential hypertension, benign 06/03/2012 HLD (hyperlipidemia) 06/03/2012 documented as of this encounter (statuses as of 12/04/2019) Immunizations Name Administration Dates Next Due Pneumococcal [...] been in contact with No / Unsure 11/04/2019 9:28 AM CDT someone who was confirmed or suspected to have Coronavirus / COVID-19? documented as of this encounter Last Filed Vital Signs Not on filedocumented in this encounter Miscellaneous Notes Telephone Encounter - Antoinette Irvin - 12/04/2019 9:15 AM CDT[id number] 11/22/19 to 01/20/20 placed in nurse box documented in this encounter Plan of Treatment [...] ype Group Dates MEDICARE MEDICARE PART A [id number] 2013-Pres 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
--- OUTSIDE RECORDS SUMMARY | 2020-03-01 15:29 | XMS REPORT | Summary of Care ---
:1950 Author Organization [facility] - [facility] Address [address] [place] [address] Care Team Providers Name Role Phone MD Mu Primary Care Provider Reason for Visit Reason Comments Refill Request Encounter Details Date Type Department Care Team Description 12/31/2019 Telephone [facility] Rapid Pathogen Screening Family Karla Dobbins MD Refill Request [address] [place] [place] [address] [place] [address] [phone] Allergies Active Allergy Reactions Severity Noted Date Comments Metoclopramide Hcl Rash 06/03/2012 documented as of this encounter (statuses as of 12/31/2019) Medications Medication Sig Dispensed Refills Start End Status Date Date ipratropium 0 Active (ATROVENT) 0.03 % 2 nasal sprayIndications: Type II or unspecified type diabetes mellitus without mention of complication, uncontrolled azelastine 137 mcg Use 1 [place] in 30 mL 5 Active (0.1 %) nasal each nostril 2 9 sprayIndications: (two) times Allergic rhinitis, daily. Use in unspecified each nostril seasonality, as directed unspecified trigger tamsulosin 0.4 mg 24 Take 1 capsule 90 capsule 1 Active hr by mouth 0 capsuleIndications: daily. BPH with obstruction/lower urinary tract symptoms omeprazole 40 mg TAKE 1 CAPSULE 90 capsule 0 Active capsuleIndications: BY MOUTH DAILY 0 Gastroesophageal reflux disease, esophagitis presence not specified LOVAZA, [id number] TAKE 4 360 capsule 1 Active ethyl esters, 1 gram CAPSULES BY 0 capsuleIndications: MOUTH EVERY Other hyperlipidemia DAY lisinopril 10 mg Take 1 tablet 90 tablet 0 Active tabletIndications: by mouth every 0 Essential morning. hypertension, benign etodolac 500 mg Take 1 tablet 180 tablet 1 Active tabletIndications: by mouth 2 0 Arthritis (two) times daily. ondansetron (ZOFRAN) Take 1 tablet 30 tablet 1 Active 4 mg by mouth every 0 tabletIndications: 8 (eight) Gastroesophageal hours as reflux disease, needed for esophagitis presence Nausea and not specified Vomiting (N/V). ONETOUCH ULTRA2 Use as 1 Kit 0 Acti ve METER directed for 0 KitIndications: once a day Diabetes mellitus blood glucose type 2, monitoring for uncontrolled, ICD: E11.9 without complications ONETOUCH SURESOFT Use as 1 Each 0 Ac tive LANCING DEV 28 gauge directed for 0 MiscIndications: once a day Diabetes mellitus blood glucose type 2, monitoring for uncontrolled, ICD: E11.9 without complications ONETOUCH ULTRASOFT Use as 100 Each 0 A ctive LANCETS directed for 0 MiscIndications: once a day Diabetes mellitus blood glucose type 2, monitoring for uncontrolled, ICD: E11.9 without complications blood sugar Use as 100 Strip 0 Active diagnostic (ONETOUCH directed for 0 ULTRA BLUE TEST twice a day STRIP) blood glucose stripIndications: monitoring for Diabetes mellitus ICD: E11.9 type 2, uncontrolled, without complications metoprolol tartrate Take 1 tablet 60 tablet 5 Active 25 mg by mouth 2 0 tabletIndications: (two) times Cerebrovascular daily. accident (CVA), unspecified mechanism amLODIPine 5 mg Take 1 tablet 30 tablet 5 Active tabletIndications: by mouth 0 Essential daily. hypertension, benign GLIMEPIRIDE 2 mg TAKE 1 TABLET 30 tablet 1 Active tabletIndications: BY MOUTH DAILY 0 Diabetes mellitus WITH BREAKFAST type 2, uncontrolled, without complications METFORMIN 1,000 mg TAKE 1 TABLET 180 tablet 1 Active tabletIndications: BY MOUTH TWICE 0 Diabetes mellitus DAILY type 2, uncontrolled, without complications ticagrelor Take 1 tablet 60 tablet 1 Activ e (BRILINTA) 90 mg by mouth 2 0 tablet (two) times daily. ticagrelor Take 1 tablet 0 Disco ntinued (BRILINTA) 90 mg by mouth 2 0 020 (R eorder) tablet (two) times daily. documented as of this encounter (statuses as of 12/31/2019) Active Problems Problem Noted Date Stage 2 chronic kidney disease 05/27/2019 Diabetes mellitus type 2, uncontrolled, without compli cations 06/03/2012 Overview: ICD10 Diagnosis Term Fruit Dumper Utility Essential hypertension, benign 06/03/2012 HLD (hyperlipidemia) 06/03/2012 documented as of this encounter (statuses as of 12/31/2019) Immunizations Name Administration Dates Next Due Pneumococcal [...] Telephone Encounter - Diana Angeles LVN - 12/31/2019 1:41 PM CDTRefill sent as approved by Dr Dobbins elephone Encounter - Juma Dobbins MD - 12/31/2019 12:43 PM CDTOK elephone Encounter - Diana Angeles LVN - 12/31/2019 12:29 PM CDTPlease advise if you approve refilling the Brillinta for him we have not filled it before. elephone Encounter - Em Arenas - 12/31/2019 11:04 AM CDTPatient is calling and is requesting a refill on Ticagrelor 90 mg one tablet every 12 hours. documented in this encounter Plan of Treatment [...] ype Group Dates MEDICARE MEDICARE PART A [id number] 2013-Pres [phone] [address] 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
--- OUTSIDE RECORDS SUMMARY | 2020-03-01 15:29 | XMS REPORT | Summary of Care ---
:1950 Author Organization [facility] Address [address] [place] [address] Care Team Providers Name Role Phone MD Mu Primary Care Provider Encounter Details Date Type Department Care Team Description 11/23/2019 Orders Only [facility] Doctor Unassigned, No [address] [facility] [place] [address] [place] [address] Allergies Active Allergy Reactions Severity Noted Date Comments Metoclopramide Hcl Rash 06/03/2012 documented as of this encounter (statuses as of 12/04/2019) Medications Medication Sig Dispensed Refills Start Date End Date Status ipratropium (ATROVENT) 0 04/15/2012 Active 0.03 % nasal sprayIndications: Type II or unspecified type diabetes mellitus without mention of complication, uncontrolled azelastine 137 mcg Use 1 [place] in 30 mL 5 11/03/2018 Active (0.1 [...] times daily. 2, uncontrolled, without complications LOVAZA, [id number] TAKE 4 CAPSULES 360 capsule 1 05/06/2019 [...] Active tabletIndications: mouth daily. Essential hypertension, benign documented as of this encounter (statuses as of 12/04/2019) Active Problems Problem Noted Date Stage 2 chronic kidney disease 05/27/2019 Diabetes mellitus type 2, uncontrolled, without compli cations 06/03/2012 Overview: ICD10 Diagnosis Term Stogie Packer Utility Essential hypertension, benign 06/03/2012 HLD (hyperlipidemia) [...] Signs Not on filedocumented in this encounter Plan of Treatment Health [...] Completed 11/04/2019 documented as of this encounter Procedures Procedure Name Priority Date/Time Associated Diagnosis Comme nts HOME HEALTH - OTHER Routine 11/23/2019 12:01 AM CDT documented in this encounter Results Not on filedocumented in this encounter Insurance Payer Benefit Plan / Subscriber ID Effective Phone Address T ype Group Dates MEDICARE MEDICARE PART A [id number] 2013-Pres 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
--- OUTSIDE RECORDS SUMMARY | 2020-03-01 15:29 | XMS REPORT | Continuity of Care Document ---
:1950 Author Organization [facility] t Address [address] [place] [address] Care Team Providers Name Role Phone Jb Dobbins MD Primary Care Physician LORENE BENÍTEZ Attending Clinician Unavailable Lorene Benítez MD Attending Clinician Srinivasa Monte MD Attending Clinician [phone] Tal ROONEY Attending Clinician Mu ROONEY Attending Clinician Lab, Fam Pob I Attending Clinician Unavailable Provider, Urgent Care Attending Clinician Unavailable Doctor Unassigned, Name Attending Clinician Unavailable Harry Tom MD Attending Clinician 1, [address] Room Attending Clinician Unavailable 2, Lab Attending Clinician Unavailable Med, Wellness [facility] Attending Clinician Unavailable Amado Zarate MD Attending Clinician Sherif Baxter NP Attending Clinician SHERIF BAXTER Attending Clinician Unavailable HARRY TOM Attending Clinician Unavailable TIGIST Attending Clinician Unavailable LAMONTE JIMENES Attending Clinician Unavailable KARAN BARNEY Attending Clinician Unavailable SRINIVASA MONTE Admitting Clinician Unavailable HARRY TOM Admitting Clinician Unavailable TIGIST Admitting Clinician Unavailable LAMONTE JIMENES Admitting Clinician Unavailable KARAN BARNEY Admitting Clinician Unavailable Payers Payer Name Policy Type Policy Effective Date Expiration Date Sour ce Number MEDICAREMEDICARE A [id number] 2013 ALEX Prabhakar [id number] 00:00:00 - M edical -PresentMedicare Center [facility] [id number] [address] [facility] SUPPLEMENT/INDIVIDUAL 00:00:00 - M edical GENERIC MEDICARE Center [id number]-PresentMedigap MEDICAREMEDICARE PART [id number] 2013 Dwayne Aquino AND 00:00:00 [place] [id number] 2012 [place] [facility] Problems Condition Condition Condition Status Onset Resolution Last Treating Co mments Source Name Details Category Date Date Treatment Clinician Date Transient Transient Disease Active 2019-[address] [facility] ischemic ischemic 0-30 [facility] - attack, attack, 00:00: Medical acute acute 00 Center Renal mass Renal mass Disease Active [facility] 4[facility]25 [facility] - 00:00: Medical 00 [place] Essential Essential Disease Active [facility] hypertensi hypertensi 4-17 Adrianne kes - on on 00:00: Medical 00 [place] DM DM Disease Active [facility] (diabetes (diabetes 4-17 [facility] - mellitus), mellitus), 00:00: Ri dical type 2 type 2 00 Center ROSARIO ROSARIO Disease Active [facility] (obstructi (obstructi 4-17 Adrianne kes - ve sleep ve sleep 00:00: Medica l apnea) apnea) 00 Center Anemia Anemia Disease Active [facility] 4[facility]17 [facility] - 00:00: Medical 00 Center Preop Preop Disease Active 2018- [place] cardiovasc cardiovasc 4-16 Me thodi ular exam ular exam 00:00: st 00 Pelvic Pelvic Disease Active 2018- [facility] mass mass 4-16 [facility] - 00:00: Medical 00 [place] 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 00 Center Metastatic Metastatic Disease Active [facility] renal cell renal cell 4-09 Adrianne kes - carcinoma carcinoma 00:00: Medi fatemeh 00 Center Pathologic Pathologic Disease Active [facility] fracture fracture 08-05 [facility] - of right of right 00:00: Medica l acetabulum acetabulum 00 Ce nter Mass of Mass of Disease Active [place] soft soft 3-27 Methodi tissue of tissue of 00:00: st right right 00 lower lower extremity extremity Pain of Pain of Disease Active [facility] right hip right hip 3- Luke s - joint joint 00:00: Medical 00 [place] 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 00:00: st involving involving 00 [facility] [place] [facility] [place] [facility] [place] heart with heart with angina angina pectoris pectoris Abnormal Abnormal Disease Active [place] EKG EKG 1-12 Methodi 00:00: st 00 SOB SOB Disease Active [place] (shortness (shortness 1-12 Me thodi of breath) of breath) 00:00: st 00 Benign Benign Disease Active [place] essential essential 2-05 Meth allison hypertensi hypertensi 00:00: st on on 00 Diabetes Diabetes Disease Active Overview: Dwayne ramirezmarin mellitus mellitus 2-05 Overview: Met hodi type 2, type 2, 00:00: ICD10 st uncontroll uncontroll 00 Diagnosis ed, ed, 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 Utility ons ons HLD HLD Disease Active [place] (hyperlipi (hyperlipi 2-05 Me thodi demia) demia) 00:00: st 00 Allergies, Adverse Reactions, Alerts Allergy Allergy Status Severity Reaction(s) Onset Inactive Treating Comm ents Source Name Type Date Date Clinician Metoclop Propensi Active Rash [place] ramide ty to 2-05 Methodi Hcl adverse 00:00: st reaction 00 s to drug Metoclop Propensi Active Rash [facility] ramide ty to 2-05 [facility] - Hcl adverse 00:00: Medical reaction 00 Center s Family History Family Member Diagnosis Comments Start Date Stop Date Source Natural brother Coronary artery [place] disease Natural brother Diabetes [facility] Natural mother Coronary artery [place] disease Social History Social Habit Start Date Stop Date Quantity Comments Source History SDOH [place] Meth odist Alcohol Binge History of tobacco Current smoker [facility] Sex Assigned [facility] Exposure to Not sure [facility] - SARS-CoV-2 (event) Medica l [place] Tobacco use and 2020-02-26 2020-02-[address] Adrianne kes - exposure 00:00:00 00:00:00 [facility] Alcohol intake 2020-02-26 2020-02-26 [facility] 00:[facility]00 00:00:00 of alcohol [facility] (finding) Alcohol Comment 2020-02-26 2020-02-26 some nights of [facility] - 00:[facility]:00 00:00:00 the week [facility] Cigarettes smoked 2018-08-11 2018-08-11 [place] [facility] current (pack per 00:00:00 00:00:00 day) - Reported Cigarette 2018-08-11 2018-08-11 [place] [facility] ist pack-years 00:00:00 00:00:00 History [facility] 2018-05-05 2018-05-05 3 [place] Meth odist Alcohol Frequency 00:00:00 00:00:00 History [facility] 2018-05-05 2018-05-05 1 [place] Meth odist Alcohol Std Drinks 00:00:00 00:00:00 Smoking Status Start Date Stop Date Source Former smoker 2020-02-26 00:00:00 2020-02-26 00:00:[address] [facility] Medications Ordered Filled Start Stop Current Ordering Indication Dosage Frequency Signature Comments Components Source Medication Medication Date Date Medication? Clinician (SIG) Name Name tamsulosin 2019-04- No .4mg QD Take 0.[address] (FLOMAX) 05-01 11-03 mg by [facility] - 0.4 mg Cap 09:29: 00:00 mouth Medic al 24 hr 21 :00 daily. Center capsule lisinopriL 2019-04- No 40mg Q.5D Take [address] (PRINIVIL,Z 05-01 11-03 by mouth 2 L ukes - ESTRIL) 40 09:29: 00:00 (two) Medic al MG tablet 21 :00 times Center daily. metoprolol 2019-04- No 25mg Q.5D Take [address] tartrate 1- 11-03 by mouth 2 Luke s - (LOPRESSOR) 09:29: 00:00 (two) Medi fatemeh 25 MG 21 :00 times Center tablet daily. amLODIPine 2019-04- No 5mg QD Take [address] (NORVASC) 5 05-01 by mouth Marjorie es - MG tablet 09:29: 00:00 daily. Medic al 21 :00 [place] aspirin 325 2019-04- No 325mg QD Take [address] MG tablet 05-0103 mg by [facility]ukes - 09:29: 00:00 mouth Medical 21 :00 daily. [place] metFORMIN 2019-04- No 1000mg Take 1,[address] (GLUCOPHAGE 05-01 mg by [facility] - ) 1000 MG 09:29: 00:00 mouth 2 Medi fatemeh tablet 21 :00 (two) Center times daily with breakfast and dinner. atorvastati 2019-04- No 80mg QD Take [address] n (LIPITOR) 05-01 by mouth Marjorie es - 80 MG 09:29: 00:00 nightly. Medical tablet 21 :00 [place] doxazosin 2019-04 Yes 2mg QD Take [address] (CARDURA) 2 05-01 by mouth Luke s - MG tablet 09:29: nightly. Medi fatemeh 16 [place] insulin 2019-04 Yes AC & HS. [facility] lispro 03 If BS > [facility] - (HumaLOG) 00:00: 150 take 1 Me dical 100 unit/mL 00 unit. > Cente r injection 200 - 2 units. > 250 - 3 units. > 300 - 4 units. > 350 - 5 units. > 400 take 6 units, and call PCP.. blood-gluco 2019-04- Yes Use as [facility] se meter 05-01 instructed Luke s - kit 00:00: 23:59 . Medical 00 :00 [place] metoprolol 2019-04- Yes 50mg Q.5D Take [address] tartrate 05-01 tablet (50 Luke [facility] - (LOPRESSOR) 00:00: 23:59 mg total) Medical 50 MG 00 :00 by mouth 2 Center tablet (two) times daily for 90 days. atorvastati 2019-04- Yes 80mg QD Take [address] n (LIPITOR) 05-01 tablet (80 L ukes - 80 MG 00:00: 23:59 mg total) Medica l tablet 00 :00 by mouth Center nightly for 90 days. needles, 2019-04- Yes [id number] [address] [facility] insulin 05-01 [id number] Miscellane [facility]ukes - disposable 00:00: 23:59 3D ous route M edical (Insulin 00 :00 3 (three) Center Pen times [place]) daily for Ndle 30 days. mINOCYCLine 2019-04 2020- Yes 100mg Take [address] (MINOCIN,DY 05-01 capsule Luke s - NACIN) 100 00:00: 23:59 (100 mg Med ical MG capsule 00 :00 total) by Cent er mouth every 12 (twelve) hours for 10 doses. insulin 2019-04- No 0U Inject 0-[address] lispro 05-01 Units [facility]ukes - (HumaLOG) 00:00: 00:00 subcutaneo M edical 100 unit/mL 00 :00 usly 3 Center injection (three) times daily before meals for 125 days. rosuvastati 2019-04- No 20mg QD Take [address] n (CRESTOR) 0-31 10-31 by mouth Marjorie es - 20 MG 13:30: 00:00 daily. Medical tablet 35 :00 Center ipratropium 2019-04- No 2{puff} [id number] Inhale [address] (ATROVENT 0-30 10-30 [id number] puffs by [facility] - HFA) 17 17:15: 00:00 3D mouth via Medi fatemeh mcg/actuati 34 :[address] on inhaler (three) times daily. rosuvastati Yes Abnormal TAKE 1 [place] n (CRESTOR) 4-21 EKG TABLET(20 Met hodi 20 MG 00:00: MG) BY st tablet 00 MOUTH DAILY polyethylen 2019- No 17g Take [address] e glycol 4-22 10-30 by mouth [facility] - (GLYCOLAX) 00:00: 00:00 daily as Me dical 17 gram 00 :00 needed. Center packet HYDROcodone 2019- No 1{tbl} Take [address] -acetaminop 4-22 10-30 tablet by Adrianne eaton (NORCO 00:00: 00:00 mouth Medic al 5-325) 00 :00 every 6 Center 5-325 mg (six) per tablet hours as needed for Pain. Max Daily Amount: 4 tablets folic acid 2019- No 1mg Take 1 mg [place] (FOLVITE) 1 07-29 by mouth. Me thodi MG tablet 00:00: 23:59 st 00 :00 amLODIPine 2019- No 5mg Take 5 mg [place] (NORVASC) 5 07-29 by mouth. Me thodi mg tablet 00:00: 23:59 st 00 :00 amLODIPine 2019- No 5mg QD Take [address] (NORVASC) 5 07-29 tablet (5 Adrianne kes - MG tablet 00:00: 23:59 mg total) Me dical 00 :00 by mouth Center daily. folic acid 2019- No 1mg QD Take [address] (FOLVITE) 1 07-29 tablet (1 Adrianne kes - MG tablet 00:00: 23:59 mg total) Me dical 00 :00 by mouth Center daily. metoprolol No 50mg Q.5D Take [address] (LOPRESSOR) 07-28 10-31 tablet (50 L ukes - 50 MG 00:00: 00:00 mg total) Medica l tablet 00 :00 by mouth 2 Center (two) times daily. rosuvastati 2019- No Abnormal 20mg QD Take 1 [place] n (CRESTOR) 1 04-21 EKG tablet (20 M ethodi 20 MG 00:00: 00:00 mg total) st tablet 00 :00 by mouth daily. metoprolol 2017-04 Yes TK 1 T PO [place] tartrate 2-29 BID Methodi (LOPRESSOR) 00:00: st 50 mg 00 tablet etodolac 2017-04 Yes TAKE 1 [place] (LODINE) 2-12 TABLET BY Method i 500 MG 00:00: MOUTH st tablet 00 TWICE DAILY lisinopril 2017-04 Yes 10mg Take 10 mg [place] (PRINIVIL,Z 1-30 by mouth. Met munguia ESTRIL) 10 00:00: st mg tablet 00 metFORMIN Yes TAKE 1 [place] (GLUCOPHAGE 5-17 TABLET BY Met munguia ) 1,000 mg 00:00: MOUTH st tablet 00 TWICE DAILY azelastine 2017-0 Yes 1{spray 1 spray [place] (ASTELIN) 9-21 } into each Metho di 137 mcg 00:00: nostril. st (0.1 %) 00 nasal spray Immunizations Ordered Immunization Filled Immunization Date Status Commen ts Source Name Name Pneumococcal 2020-02-27 Completed [facility] - Conjugate (Prevnar) 00:00:00 [facility] 13-Valent INFLUENZA QIV 2020-02-27 Completed [facility] s - ADJUVANTED PF IM 00:00:00 Medical Center Vital Signs Vital Name Observation Time Observation Value Comments Source Heart rate 2020-03-01 13:15:00 57 /min [facility] Respiratory rate 2020-03-01 13:15:00 18 /min [facility] Oxygen saturation in 2020-03-01 13:15:00 99 /min [facility] Arterial blood by Medical Ce nter Pulse oximetry Systolic blood 2020-03-01 11:08:00 172 mm[Hg] [facility] Diastolic blood 2020-03-01 11:08:00 74 mm[Hg] [facility] Body temperature 2020-03-01 09:00:00 36.39 Carmen [facility] Body height 2020-02-26 10:55:00 180.3 cm [facility] Body weight 2020-02-26 10:55:00 117.6 kg [facility] BMI 2020-02-26 10:55:00 36.16 kg/m2 [facility] Procedures Procedure Date / Time Performing Clinician Source Performed POCT-GLUCOSE METER 2020-03-01 13:03:00 Demetrius Parada [facility] BASIC METABOLIC PANEL (7) 2020-03-01 06:08:00 Andrés Parada [facility] CBC W/PLT COUNT & AUTO 2020-03-01 06:08:[address] [facility] POCT-GLUCOSE METER 2020-02-29 21:35:00 Demetrius Parada [facility] POCT-GLUCOSE METER 2020-02-29 17:54:00 [facility]OL[facility] (7) 2020-02-29 05:53:00 Andrés Parada [facility] CBC W/PLT COUNT & AUTO 2020-02-29 05:53:00 Tal [facility] POCT-GLUCOSE METER 2020-02-28 21:31:00 Tal [facility] BASIC METABOLIC PANEL (7) 2020-02-28 04:15:00 Andrés Parada [facility] CBC W/PLT COUNT & AUTO 2020-02-28 04:15:00 [facility] 2D ECHO W/ DOPPLER 2020-02-28 00:00:48 [facility] (CW/PW/COLOR) [facility] POCT-GLUCOSE METER 2020-02-27 22:27:00 [facility] ([facility] & 2020-02-27 13:38:00 [facility] LIPID PANEL 2020-02-27 06:08:00 [facility] HEMOGLOBIN A1C 2020-02-27 06:08:00 [facility] VITAMIN B12 AND FOLATE 2020-02-27 06:08:00 [facility] BASIC METABOLIC PANEL (7) 2020-02-27 06:08:00 [facility] HEPATIC FUNCTION PANEL 2020-02-27 06:08:00 [facility] TSH/FREE T4 IF INDICATED 2020-02-27 06:08:00 [facility] ra [facility] MAGNESIUM 2020-02-27 06:08:00 [facility] PHOS[facility]OR[facility] 2020-02-27 06:08:00 Tal Demetrius [facility] CBC W/PLT COUNT & AUTO 2020-02-27 06:08:00 [facility] POCT-GLUCOSE METER 2020-02-26 21:26:00 Demetrius Parada [facility] MR BRAIN WITHOUT IV 2020-02-26 18:45:00 Tal Demetrius [facility] ECG 12-LEAD 2020-02-26 17:52:46 Unknown, Hl7 Doctor [facility] URINALYSIS WITH 2020-02-26 14:22:00 Benítez, [facility] IF INDICATED [facility] CT/CTA CAROTID 2020-02-26 11:44:00 Benítez, [facility] CTA BRAIN 2020-02-26 11:44:00 Benítez, [facility] CT BRAIN/STROKE TEST 2020-02-26 11:43:00 Benítez, [facility] DESIGN [facility] XR CHEST 1 VIEW 2020-02-26 11:35:00 Benítez, [facility] PORTABLE/BEDSIDE [facility] ECG 12-LEAD 2020-02-26 11:29:02 Benítez, [facility] POCT-GLUCOSE METER 2020-02-26 11:28:00 Benítez, [facility] ED ECG INTERPRETATION 2020-02-26 11:05:03 Benítez, [facility] BASIC METABOLIC PANEL (7) 2020-02-26 10:58:00 Benítez, [place] [facility] MAGNESIUM 2020-02-26 10:58:00 Benítez, [facility] TROPONIN I 2020-02-26 10:58:00 Benítez, [facility] PT/APTT 2020-02-26 10:58:00 Benítez, Griselda [facility] B-TYPE NATRIURETIC FACTOR 2020-02-26 10:58:00 BenítezGriselda I [facility] (BNP) [facility] CBC W/PLT COUNT & AUTO 2020-02-26 10:58:00 Benítez, Griselda JOHNSON [facility] - DIFFERENTIAL [facility] CT CHEST WITHOUT IV 2020-01-05 18:12:00 Yen, [facility] S [facility] CONTRAST [facility] CT ABDOMEN/PELVIS WITHOUT 2020-01-05 18:12:00 Yen, [facility] IV CONTRAST [facility] CT ABDOMEN/PELVIS WITHOUT 2019-10-16 10:48:00 Yen, [facility] IV CONTRAST [facility] CT CHEST WITHOUT IV 2019-10-16 10:48:00 Yen, [facility] CONTRAST [facility] CT ABDOMEN/PELVIS WITH IV 2019-06-15 14:41:00 Osbaldo Baxter [facility] CONTRAST [facility] CT CHEST WITH IV CONTRAST 2019-06-15 14:41:00 Osbaldo Baxter [facility] POCT-CREATININE 2019-06-15 14:17:00 Osbaldo Baxter [facility] FL BILATERAL HIPS TO 2019-03-19 11:45:00 Yen, [facility] INCLUDE PELVIS [facility] CT ABDOMEN/PELVIS WITH IV 2019-03-06 11:15:00 Yen, [facility] CONTRAST [facility] CT CHEST WITH IV CONTRAST 2019-03-06 11:15:00 Yen, [facility] POCT-CREATININE 2019-03-06 10:42:00 Yesharath, [facility] Plan of Care Planned Activity Planned Date Details Comments Source Future Scheduled 2021-02-26 PNEUMOCOCCAL 65+ YRS [facility] - Test 00:00:00 (2 of 2 - PPSV23) Medical Ce nter [code = PNEUMOCOCCAL 65+ YRS (2 of 2 - PPSV23)] Future Scheduled 2020-08-[address] [facility] kes - Test 00:00:00 measurement Medical Center (procedure) [code = 04684651] Future Scheduled 2019-11-28 INFLUENZA VACCINE [place] [facility] Test 00:00:00 [code = INFLUENZA VACCINE] Future Scheduled 2014-01-[address] [facility] - Test 00:00:00 WELLNESS (YEAR 2 or Medical Center FIRST YEAR if no IPPE) [code = MEDICARE ANNUAL WELLNESS (YEAR 2 or FIRST YEAR if no IPPE)] Future Scheduled 2013-02-24 65+ PNEUMOCOCCAL [place] [facility] Test 00:00:00 VACCINE (1 of 1 - PPSV23) [code = 65+ PNEUMOCOCCAL VACCINE (1 of 1 - PPSV23)] Future Scheduled 1998-02-24 COLONOSCOPY SCREENING [place] [facility] Test 00:00:00 [code = COLONOSCOPY SCREENING] Future Scheduled 1998-02-24 SHINGLES VACCINES [place] [facility] Test 00:00:00 (#1) [code = SHINGLES VACCINES (#1)] Future Scheduled 1958-02-24 DIABETES: RETINAL EYE [place] [facility] Test 00:00:00 EXAM [code = DIABETES: RETINAL EYE EXAM] Future Scheduled 1958-02-24 DIABETIC FOOT EXAM [place] [facility] Test 00:00:00 [code = DIABETIC FOOT EXAM] Future Scheduled 1958-02-[address] DIAB[address] EYE EXAM [facility] - Test 00:00:00 [code = DIABETIC EYE Medical Center EXAM] Future Scheduled 1958-02-[address] Marjorie es - Test 00:00:00 examination Medical Center (regime/therapy) [code = 294468434] Future Scheduled 1958-02-24 Urine screening for [facility] - Test 00:00:00 protein (procedure) Medical Center [code = 825760169] Future Scheduled [address] [facility] Marjorie es - Test 00:00:00 malignant neoplasm of [facility] colon (procedure) [code = 160546509] Medication 2020-03-02 aspirin [address] [facility] - 00:00:00 tablet [code = Medical Cente r 596395] Medication 2020-03-02 tamsulosin (FLOMAX) [facility] - 00:00:00 0.4 mg Cap [address] capsule [code = 322407] Medication 2020-03-02 clopidogreL (PLAVIX) [facility] - 00:00:00 75 mg tablet [code = Medical Center 718733] Medication 2020-03-02 cyanocobalamin, [facility] - 00:00:00 vitamin B-12, 100 MCG Medica l Center tablet [code = 770549] Medication 2020-03-[address] [facility] - 00:00:00 acid-multivitamins Medical C enter (NEPHRO-YANDY) 0.8 mg Tab tablet [code = 175007] Medication 2020-03-[address] [facility] - 00:00:00 (GLYCOLAX) 17 gram Medical C enter packet [code = 118069] Encounters Start End Encounter Admission Attending Care Care Encounter Source Date/Time Date/Time Type Type Clinicians Facility Department ID 2020-02-22 2020-02-22 [facility] [id number] 00:00:00 00:00:[address] [facility] [id number] [place] [id number] Professio [phone] [place] [address] Office [facility] [address] One 2020-02-10 2020-02-10 [place] [facility] [id number] 00:00:00 00:00:[address] [facility] [id number] [place] [id number] Professio [phone] [place] [address] Office Building One 2020-02-05 2020-02-05 [place] [facility] [id number] 00:00:00 00:00:[address] [facility] [id number] [place] [id number] Professio [phone] [place] [address] Office Building One 2020-02-02 2020-02-02 [facility] [id number] 00:00:00 00:00:[address] [facility] [id number] [place] [id number] Professio [phone] [place] [address] Office Building One 2020-01-29 2020-01-29 [employer] Mechanic Lab, [facility] [id number] 08:56:39 09:06:39 Visit Fam [facility] Health [id number] [place] [id number] Professio [phone] [place] [address] Office Building One 2020-01-27 2020-01-27 Asif Dobbins W[place]JAMIE [id number] 00:00:00 00:00:00 [facility] [id number] [place] [id number] Professio [phone] [place] [address] Office Building One 2020-01-25 2020-01-25 Urgent Provider, [facility] [id number] 18:38:10 19:31:10 Care [facility] [id number] Care [place] [id number] Professio [phone] [place] [address] Office Building One 2020-01-21 2020-01-21 Orders Doctor LOCKE [id number] 00:00:00 00:00:00 Only Unassigned, JENNI [id number] [place] [facility] [id number] 2020-01-19 2020-01-19 Asif Dobbins [place] [id number] 00:00:00 00:00:00 [facility] [id number] [place] [id number] Professio [phone] [place] [address] Office Building One 2020-01-14 2020-01-14 Asif Dobbins [place] [id number] 00:00:00 00:00:00 [facility] [id number] [place] [id number] Professio [phone] [place] [address] Office Building One 2020-01-14 2020-01-14 Telephone Mu [facility] [id number] 00:00:00 00:00:00 [facility] [id number] [place] [id number] Professio [phone] [place] [address] Office Building One 2020-01-13 2020-01-13 Orders Doctor LOCKE [id number] 00:00:00 00:00:00 Only Unassigned, JENNI [id number] [place] [facility] [id number] 2019-12-31 2019-12-31 [facility] [id number] 00:00:00 00:00:00 [facility] [id number] [place] [id number] Professio [phone] [place] [address] Office Building One 2019-12-21 2019-12-21 Refill [facility] [id number] 00:00:00 00:00:00 [facility] [id number] [place] [id number] Professio [phone] [place] [address] Office Building One 2019-12-16 2019-12-16 [facility] [id number] 00:00:00 00:00:00 [facility] [id number] [place] [id number] Professio [phone] [place] [address] Office Building One 2019-12-10 2019-12-10 Orders Doctor CORNELIA [id number] 00:00:00 00:00:00 Only Unassigned, JENNI [id number] [place] [facility] [id number] [id number] 2019-12-09 2019-12-09 Laboratory Lab, [facility] 1.2.840.114 [id number] 13:26:56 13:46:56 Only Fam P[facility] 350.1.13.10 [place] 4.2.7.2.686 Professio [phone] [place] [address] Office Building One 2019-12-04 2019-12-04 [facility] 1.2.061.337 [id number] 00:00:00 00:00:00 Juma Cullen 350.1.13.10 [place] 4.2.7.2.686 Professio [phone] [place] [address] Building 2019-12-02 2019-12-02 Ref[facility] 1.2.840.114 [id number] 00:00:00 00:00:00 Juma Cullen 350.1.13.10 [place] 4.2.7.2.686 Professio [phone] [address] 2019-11-26 2019-11-26 Asif Dobbins, [facility] 1.2.467.822 [id number] 00:00:00 00:00:00 Juma [place] 350.1.13.10 [place] 4.2.7.2.686 Professio [phone] [address] 2019-11-24 2019-11-24 Asif Dobbins, [facility] 1.2.299.974 [id number] 00:00:00 00:00:00 Juma [place] 350.1.13.10 [place] 4.2.7.2.686 Professio [phone] [address] 2019-11-23 2019-11-23 [facility] 1.2.014.755 [id number] 00:00:00 00:00:00 Juma [place] 350.1.13.10 [place] 4.2.7.2.686 Professio [phone] [address] 2019-11-23 2019-11-23 Orders Doctor CORNELIA 1.2.840.114 [id number] 00:00:00 00:00:00 Only Unassigned, JENNI 350.1.13.10 [place] [facility] 4.2.7.2.686 [phone] 009 2019-11-17 2019-11-17 [facility] 1.2.011.452 [id number] 00:00:00 00:00:00 Juma [facility] 350.1.13.10 [place] 4.2.7.2.686 Professio [phone] [place] [address] Office Building One 2019-11-04 2019-11-04 Water Treatment Plant Mechanic 2, Adc Lab [facility] 1.2.840.114 [id number] 09:28:48 09:43:48 Visit Subhash 350.1.13.10 [place] 4.2.7.2.686 Professio [phone] [place] [address] Building 2019-11-04 2019-11-04 Nurse Med, [facility] 1.2.840.114 [id number] 08:13:07 08:43:07 Visit Medicare [place] 350.1.13.10 Wellness [place] 4.2.7.2.686 Thomas Beal [phone] [address] 2019-11-04 2019-11-04 Office Mu [facility] 1.2.840.114 [id number] 07:52:31 08:07:31 Visit Juma Cullen 350.1.13.10 [place] 4.2.7.2.686 Profanabelaio [phone] [address] 2019-11-02 2019-11-02 Orders Doctor CORNELIA 1.2.840.114 [id number] 00:00:00 00:00:00 Only Unassigned, JENNI 350.1.13.10 [place] [facility] 4.2.7.2.686 [phone] 009 Results Test Description Test Time Test Comments Results Result Comments Source POC-Glucose meter 2020-03-01 13:18:00 Test Item Value Reference Range Interpretation Comme [facility] POC-Glucose Meter (test code = 252 mg/dL 70-110 H : TESTED AT [facility] [address] [facility] 1538) [facility], [address]: Workforce Investment Act Career Manager/Techni daniel ID = [id number] for RO QUINONES Lab Interpretation (test code = Abnormal 99363-1) [facility] [id number] 13:18:00 Test Item Value Reference Range Interpretation Comments POC-GLUCOSE METER 252 mg/dL 70-110 H : TESTED A T [facility] 6720 (BEAKER) (test code = BERTNE R [facility], 1538) [address]: Workforce Investment Act Career Manager/Techni daniel ID = [id number] for MAGDA [employer]ATS Basic Metabolic [id number] 07:25:00 Test Item Value Reference Range Interpretation Comments Sodium (test code = 136 meq/L 396-983 3466-2) Potassium (test code = 4.2 meq/L 3.5-5.1 2823-3) Chloride (test code = 106 meq/L 98-107 2075-0) CO2 (test code = 22 meq/L 22-29 8-9) BUN (test code = 23 mg/dL 7-21 H 3094-0) Creatinine (test code 1.80 mg/dL 0.57-1.25 H = 2160-0) Glucose (test code = 187 mg/dL 70-105 H 2345-7) Calcium (test code = 8.9 mg/dL 8.4-10.2 68144-6) EGFR (test code = 37 mL/min/1.73 [place] [address]-9) NOT ACCURATE CREATININE CLEARANCE IN PREDICTING GLOMERULAR FILTRATION RATE . ESTIMATED GFR I S NOT APPLICABLE FOR DIALYSIS PATIENTS. SHA (test code = SHA) Workforce Investment Act Career Manager ID - SINDHU M Lab Interpretation Abnormal (test code = 04198-7) [facility] METABOLIC [id number] 07:25:00 Test Item Value Reference Range Interpretation Comments SODIUM (BEAKER) 136 meq/L 136-145 (test code = 381) POTASSIUM (BEAKER) 4.2 meq/L 3.5-5.1 (test code = 379) CHLORIDE (BEAKER) 106 meq/L 98-107 (test code = 382) CO2 (BEAKER) (test 22 meq/L 22-29 code = 355) BLOOD UREA NITROGEN 23 mg/dL 7-21 H (BEAKER) (test code = 354) CREATININE (BEAKER) 1.80 mg/dL 0.57-1.25 H (test code = 358) GLUCOSE RANDOM 187 mg/dL 70-105 H (BEAKER) (test code = 652) CALCIUM (BEAKER) 8.9 mg/dL 8.4-10.2 (test code = 697) EGFR (BEAKER) (test 37 mL/min/1.73 ESTIMA ARIS GFR IS code = 1092) sq m NOT ACCURATE CREATININE CLEARANCE IN PREDICTING GLOMERULAR FILTRATION RATE . ESTIMATED GFR I S NOT APPLICABLE FOR DIALYSIS PATIEN TS. Workforce Investment Act Career Manager ID - SINDHU MCBC with platelet count + automated [id number] 06:52:00 Test Item Value Reference Range Interpretation Comments WBC (test code = 6690-2) 3.9 3.5- 10.5 K/L RBC (test code = 789-8) 3.64 4.63- 6.08 M/L L MCHC (test code = 786-4) 33.5 32.3- 36.5 GM/DL L Hematocrit (test code = 4544-3) 33.4 % 40.1-51 L MCV (test code = 787-2) 91.8 fL 79-92.2 MCH (test code = 785-6) 30.8 pg 25.7-32.2 RDW (test code = 788-0) 13.9 % 11.6-14.4 Platelets (test code = 777-3) 159 150- 450 K/CU MM MPV (test code = 84053-6) 8.8 fL 9.4-12.4 L nRBC (test code = 413) 0 0- 0 /100 WBC % Neutros (test code = 429) 48 % % Lymphs (test code = 430) 36 % % Monos (test code = 431) 9 % % Eos (test code = 432) 7 % % Baso (test code = 437) 0 % # Neutros (test code = 670) 1.90 1.78- 5.38 K/L # Lymphs (test code = 414) 1.41 1.32- 3.57 K/L # Monos (test code = 415) 0.34 0.30- 0.82 K/L # Eos (test code = 416) 0.27 0.04- 0.54 K/L # Baso (test code = 417) 0.01 0.01- 0.08 K/L Immature Granulocytes-Relative 0 % 0-1 (test code = 2801) Lab Interpretation (test code = Abnormal 54309-9) [facility] W/PLT COUNT & AUTO [id number] 06:52:00 Test Item Value Reference Range Interpretation Comments WHITE BLOOD CELL COUNT (BEAKER) 3.9 K/ L 3.5-10.5 (test code = 775) RED BLOOD CELL COUNT (BEAKER) 3.64 M/ L 4.63-6.08 L (test code = 761) HEMOGLOBIN (BEAKER) (test code = 11.2 GM/DL 13.7-17.5 L 410) HEMATOCRIT (BEAKER) (test code = 33.4 % 40.1-51.0 L 411) MEAN CORPUSCULAR VOLUME (BEAKER) 91.8 fL 79.0-92.2 (test code = 753) MEAN CORPUSCULAR HEMOGLOBIN 30.8 pg 25.7-32.2 (BEAKER) (test code = 751) MEAN CORPUSCULAR HEMOGLOBIN CONC 33.5 GM/DL 32.3-36.5 (BEAKER) (test code = 752) RED CELL DISTRIBUTION WIDTH 13.9 % 11.6-14.4 (BEAKER) (test code = 412) PLATELET COUNT (BEAKER) (test 159 K/CU MM 150-450 code = 756) MEAN PLATELET VOLUME (BEAKER) 8.8 fL 9.4-12.4 L (test code = 754) NUCLEATED RED BLOOD CELLS 0 /100 WBC 0-0 (BEAKER) (test code = 413) NEUTROPHILS RELATIVE PERCENT 48 % (BEAKER) (test code = 429) LYMPHOCYTES RELATIVE PERCENT 36 % (BEAKER) (test code = 430) MONOCYTES RELATIVE PERCENT 9 % (BEAKER) (test code = 431) EOSINOPHILS RELATIVE PERCENT 7 % (BEAKER) (test code = 432) BASOPHILS RELATIVE PERCENT 0 % (BEAKER) (test code = 437) NEUTROPHILS ABSOLUTE COUNT 1.90 K/ L 1.78-5.38 (BEAKER) (test code = 670) LYMPHOCYTES ABSOLUTE COUNT 1.41 K/ L 1.32-3.57 (BEAKER) (test code = 414) MONOCYTES ABSOLUTE COUNT (BEAKER) 0.34 K/ L 0.30-0.82 (test code = 415) EOSINOPHILS ABSOLUTE COUNT 0.27 K/ L 0.04-0.54 (BEAKER) (test code = 416) BASOPHILS ABSOLUTE COUNT (BEAKER) 0.01 K/ L 0.01-0.08 (test code = 417) IMMATURE GRANULOCYTES-RELATIVE 0 % 0-1 PERCENT (BEAKER) (test code = 2801) POCT-GLUCOSE [id number] 21:47:00 Test Item Value Reference Range Interpretation Comments POC-GLUCOSE METER 231 mg/dL 70-110 H : Notified RN/MD: ([facility]) (test code = TESTED AT [place] [address]) [facility], [address]: Workforce Investment Act Career Manager/Techni daniel ID = [id number] for FORTUNATO GARZON POCT-GLUCOSE [id number] 18:06:00 Test Item Value Reference Range Interpretation Comments POC-GLUCOSE METER 172 mg/dL 70-110 H : TESTED A T [place] [address] (BEAKER) (test code = [place], 1538) [address]: Workforce Investment Act Career Manager/Techni daniel ID = [id number] for Na Rupesh page BASIC METABOLIC [id number] 06:48:00 Test Item Value Reference Range Interpretation Comments SODIUM (BEAKER) 140 meq/L 136-145 (test code = 381) POTASSIUM (BEAKER) 4.0 meq/L 3.5-5.1 (test code = 379) CHLORIDE (BEAKER) 106 meq/L 98-107 (test code = 382) CO2 (BEAKER) (test 24 meq/L 22-29 code = 355) BLOOD UREA NITROGEN 22 mg/dL 7-21 H (BEAKER) (test code = 354) CREATININE (BEAKER) 1.84 mg/dL 0.57-1.25 H (test code = 358) GLUCOSE RANDOM 170 mg/dL 70-105 H (BEAKER) (test code = 652) CALCIUM (BEAKER) 9.1 mg/dL 8.4-10.2 (test code = 697) EGFR (BEAKER) (test 36 mL/min/1.73 ESTIMA ARIS GFR IS code = 1092) sq m NOT ACCURATE CREATININE CLEARANCE IN PREDICTING GLOMERULAR FILTRATION RATE . ESTIMATED GFR I S NOT APPLICABLE FOR DIALYSIS PATIEN TS. Workforce Investment Act Career Manager ID - EDASICBC W/PLT COUNT & AUTO [id number] 06:21:00 Test Item Value Reference Range Interpretation Comments WHITE BLOOD CELL COUNT (BEAKER) 3.8 K/ L 3.5-10.5 (test code = 775) RED BLOOD CELL COUNT (BEAKER) 3.61 M/ L 4.63-6.08 L (test code = 761) HEMOGLOBIN (BEAKER) (test code = 10.9 GM/DL 13.7-17.5 L 410) HEMATOCRIT (BEAKER) (test code = 34.2 % 40.1-51.0 L 411) MEAN CORPUSCULAR VOLUME (BEAKER) 94.7 fL 79.0-92.2 H (test code = 753) MEAN CORPUSCULAR HEMOGLOBIN 30.2 pg 25.7-32.2 (BEAKER) (test code = 751) MEAN CORPUSCULAR HEMOGLOBIN CONC 31.9 GM/DL 32.3-36.5 L (BEAKER) (test code = 752) RED CELL DISTRIBUTION WIDTH 13.8 % 11.6-14.4 (BEAKER) (test code = 412) PLATELET COUNT (BEAKER) (test 148 K/CU MM 150-450 L code = 756) MEAN PLATELET VOLUME (BEAKER) 8.9 fL 9.4-12.4 L (test code = 754) NUCLEATED RED BLOOD CELLS 0 /100 WBC 0-0 (BEAKER) (test code = 413) NEUTROPHILS RELATIVE PERCENT 46 % (BEAKER) (test code = 429) LYMPHOCYTES RELATIVE PERCENT 36 % (BEAKER) (test code = 430) MONOCYTES RELATIVE PERCENT 10 % (BEAKER) (test code = 431) EOSINOPHILS RELATIVE PERCENT 7 % (BEAKER) (test code = 432) BASOPHILS RELATIVE PERCENT 0 % (BEAKER) (test code = 437) NEUTROPHILS ABSOLUTE COUNT 1.75 K/ L 1.78-5.38 L (BEAKER) (test code = 670) LYMPHOCYTES ABSOLUTE COUNT 1.38 K/ L 1.32-3.57 (BEAKER) (test code = 414) MONOCYTES ABSOLUTE COUNT (BEAKER) 0.37 K/ L 0.30-0.82 (test code = 415) EOSINOPHILS ABSOLUTE COUNT 0.27 K/ L 0.04-0.54 (BEAKER) (test code = 416) BASOPHILS ABSOLUTE COUNT (BEAKER) 0.01 K/ L 0.01-0.08 (test code = 417) IMMATURE GRANULOCYTES-RELATIVE 0 % 0-1 PERCENT (BEAKER) (test code = 2801) POCT-GLUCOSE [id number] 21:44:00 Test Item Value Reference Range Interpretation Comments POC-GLUCOSE METER 197 mg/dL 70-110 H : TESTED A T [facility] 6720 (BEAKER) (test code = [employer]ía [facility], 1538) [address]: Workforce Investment Act Career Manager/Techni daniel ID = [id number] for LUIZA CID 2D Echo W/Doppler(CW/PW/Color) with [id number] 18:41:08Ejection FractionSLEH ECHO HEARTLAB MKCKCONSTANTIN CPACSInterface, External Ris In - 02/28/2020 6:41 PM CSTTransthoracic Echocardiography Report (TTE) Demographics Patient Name JOHN PAUL POLLARD Date ofStudy 02/28/2020 MEGHA Gender Male Visit Number [id number] Race Unknown RoomNumber 2256 Number Date of 1950 Referring Saeed Parada Physician Age 70 year(s) Wild Life Manager Ellie Care Coordinator Shanel Adams Interpreting Physician NEVIN Giles Procedure Type of Study TTE procedure:2DECHO W DOPPLER(CW/PW/COLOR) (Routine) Indications:Unexplained Pre-syncope/Syncope.Clinical HistoryCAD, DM, HTN, ROSARIO ON CPAPContrast Medium: Definity. Amount - 3 mlHeight: 71 inches Weight: 117.48 kg (259 lbs) BSA: 2.35 m^2 BMI: 36.12kg/m^2HR: 64 bpm BP: 167/77 mmHg Summary The left ventricle is chamber size (by vol index) is mildly enlarged (male - LVED 75-89ml/m2). Mild concentric LV hypertrophy. All of the LV segmentscontract normally . Global LV systolic function normal . Estimated LVEF by qualitative assessment isnormal (55-60%) . LV endocardium is adequately visualized with IV ultrasound enhancing agent. No significant valve disease detected. A trace of tricuspid regurgitation. Estimated peak systolic PA pressu re is 25-30 mmHg (normal range) . The estimated RA pressure by IVC dynamics 5- 10mmHg . No significant pericardial effusion is visualized. Previous Study In comparison with the prior exam on 07-25-18 there are no significant changes. Signature Findings Left Ventricle The left ventricle is chamber size (by vol index) is mildly enlarged (male -LVED 75-89ml/m2). Mild concentric LV hypertrophy. All of the LV segments contract normally . Global LV systolic function normal . Estimated LVEF by qualitative assessment is normal (55-60%) . LV endocardium is adequately visualized with IV ultrasound enhancing agent. Grade 1 diastolic dysfunction (impaired relaxation and low-normal LA pressure). Left Atrium LA size is mildly enlarged(35-41 ml/m2) . Right Ventricle The right ventricular chamber size and systolic function are within normal limits. Right Atrium RA cavity size is normal . Aortic Valve Normal AoV structure and function. Mitral Valve Mild MV leaflet thickening. Mild mitral annular calcification. Trace mitral re gurgitation. Tricuspid Valve A trace of tricuspid regurgitation. Estimated peak systolic PA pressure is 25-30 mmHg (normal range) . Pulmonic Valve Normal PV structure and function. Aorta Aortic root size (SInus of Valsalva diameter) is normal . Pericardium No significant pericardial effu veronica is visualized. IVC/SVC/PA/PV/Pleural The estimated RA pressure by IVC dynamics 5-10mmHg . Chambers/Structures Left Atrium LA Volume: 92.05 ml LA Area:25.56 cm^2 LA Vol. Index: 39 ml/m^2 Left Ventricle LVIDd: 6.14 cm LV Septum Diastolic: 1.22 cm LV PW Diastolic: 1.21 cm LVEDV Padilla's:180.18 ml LVEDVI: 7 7 ml/m^2 LVOT Diameter: 2.25 cm Right Atrium RA Vol. (Sngl Plane): 49.52 ml Right Ventricle TAPSE: 1.77 cm Aorta Ao Root S of Susan.: 3.51 cm Doppler/Quantitative Measurements Mitral Valve MV Peak E-Wave: 0.67 m/s MV Peak A-Wave: 0.68 m/s E/A Ratio: 0.99 Peak Gradient: 1.8 mmHg Deceleration Time: 275.2 msec MV Carlitos. Peak: Tissue Doppler E' Lat eral Velocity: 0.08 m/s E/E': 8.32 Aortic Valve [...] Valve TR Velocity: 2.27 m/s TR Gradient: 20.52mmHgMarinHealth Medical CenterARS-CoV2/RT-PCR (Asymptomatic ONLY)2020-02-28 17:28:00 Test Item Value Reference Range Interpretation Comments SARS-COV2/RT-PCR Negative Not Detected, (test code = Negative, See 16046-6) external report for linked test SARS-COV-2 [facility] (test code = 70127-7) SHA (test code = Negative result for this SHA) test determines that SARS-CoV-2 RNA was not present in the [...] the Act. Testing was performed using the Workhint SARS-CoV-2 assay. Fact Sheet for Healthcare Providers:https://www.sarina alicea.taylor/fabio/RT_SA HS-RdO-0_DTE_Lsfk_Dfbgw_ 51-678290.pdf Fact Sheet for Healthcare Patients:https://www.wilfrid fam.taylor/fabio/RT_SAR A-RbI-5_Ccuvhfd_Xbtm_Bho et_EN_51-711683Q6.pdf Performing Laboratory:[facility] [place] [address] [facility] CenterARS-COV2/RT-PCR ([facility])2020-02-28 17:28:00 Test Item Value Reference Range Interpretation Comments SARS-COV2/RT-PCR (test Negative Not Detected, Negative, code = 5520121) See external report for linked test SARS-COV-2 PERFORMING LAB [facility] (test code = 3025094) Negative result for this test determines that SARS-CoV-2 RNA was not present in the specimen above the Limit of Detection (LOD). However, Negative results do not preclude SARS-CoV-2 infection and should not be used as the sole basis for treatment or patient management decisions. Negative results mustbe combined with clinical observations, patient history, and epidemiological information. A false negative result may occur if a specimen is improperly collected, transported or handled. A false negative result should be considered if patient's recent exposures or clinical presentation indicate that COVID-19 (SARS-CoV-2) is likely and diagnostic tests for other causes of illness are negative. Re-testing should be considered in cases of suspected false negatives.The limit of detection for this assay is 100 copies/mL.This SARS CoV-2 test is a real-time RT-PCR test intended for the qualitative detection of nucleic acid from SARS-CoV-2 in a nasopharyngeal swab specimen collected from individuals susp ected of COVID-19 by their healthcare provider.This test has not been Food and Drug [...] is revoked under Section 564(g) of the Act.Testing was performed using the Taylor SARS-CoV-2 assay.Fact Sheet for Healthcare Providers:https://www.Mister Bell.taylor/fabio/ PL_WQND-TiX-9_XGJ_Kqoq_Hbqkk_83-375196.pdfFact Sheet for Healthcare Patients:https://www.Mister Bell.MYOS hien/fabio/BE_VDON-CvB-6_Feqgojn_Ojzs_Bdcgl_LG_09-895234S5.pdfPerforming Laboratory:[address]t[place] [address] BASIC METABOLIC [id number] 06:06:00 Test Item Value Reference Range Interpretation Comments SODIUM (BEAKER) 138 meq/L 136-145 (test code = 381) POTASSIUM (BEAKER) 4.1 meq/L 3.5-5.1 (test code = 379) CHLORIDE (BEAKER) 111 meq/L 98-107 H (test code = 382) CO2 (BEAKER) (test 20 meq/L 22-29 L code = 355) BLOOD UREA NITROGEN 25 mg/dL 7-21 H (BEAKER) (test code = 354) CREATININE (BEAKER) 1.93 mg/dL 0.57-1.25 H (test code = 358) GLUCOSE RANDOM 282 mg/dL 70-105 H (BEAKER) (test code = 652) CALCIUM (BEAKER) 8.1 mg/dL 8.4-10.2 L (test code = 697) EGFR (BEAKER) (test 34 mL/min/1.73 ESTIMA ARIS GFR IS code = 1092) sq m NOT ACCURATE CREATININE CLEARANCE IN PREDICTING GLOMERULAR FILTRATION RATE . ESTIMATED GFR I S NOT APPLICABLE FOR DIALYSIS PATIEN TS. Workforce Investment Act Career Manager ID - EDASICBC W/PLT COUNT & AUTO [id number] 04:45:00 Test Item Value Reference Range Interpretation Comments WHITE BLOOD CELL COUNT (BEAKER) 3.7 K/ L 3.5-10.5 (test code = 775) RED BLOOD CELL COUNT (BEAKER) 3.16 M/ L 4.63-6.08 L (test code = 761) HEMOGLOBIN (BEAKER) (test code = 9.7 GM/DL 13.7-17.5 L 410) HEMATOCRIT (BEAKER) (test code = 29.8 % 40.1-51.0 L 411) MEAN CORPUSCULAR VOLUME (BEAKER) 94.3 fL 79.0-92.2 H (test code = 753) MEAN CORPUSCULAR HEMOGLOBIN 30.7 pg 25.7-32.2 (BEAKER) (test code = 751) MEAN CORPUSCULAR HEMOGLOBIN CONC 32.6 GM/DL 32.3-36.5 (BEAKER) (test code = 752) RED CELL DISTRIBUTION WIDTH 14.1 % 11.6-14.4 (BEAKER) (test code = 412) PLATELET COUNT (BEAKER) (test 143 K/CU MM 150-450 L code = 756) MEAN PLATELET VOLUME (BEAKER) 9.1 fL 9.4-12.4 L (test code = 754) NUCLEATED RED BLOOD CELLS 0 /100 WBC 0-0 (BEAKER) (test code = 413) NEUTROPHILS RELATIVE PERCENT 45 % (BEAKER) (test code = 429) LYMPHOCYTES RELATIVE PERCENT 39 % (BEAKER) (test code = 430) MONOCYTES RELATIVE PERCENT 7 % (BEAKER) (test code = 431) EOSINOPHILS RELATIVE PERCENT 8 % (BEAKER) (test code = 432) BASOPHILS RELATIVE PERCENT 1 % (BEAKER) (test code = 437) NEUTROPHILS ABSOLUTE COUNT 1.69 K/ L 1.78-5.38 L (BEAKER) (test code = 670) LYMPHOCYTES ABSOLUTE COUNT 1.44 K/ L 1.32-3.57 (BEAKER) (test code = 414) MONOCYTES ABSOLUTE COUNT (BEAKER) 0.27 K/ L 0.30-0.82 L (test code = 415) EOSINOPHILS ABSOLUTE COUNT 0.29 K/ L 0.04-0.54 (BEAKER) (test code = 416) BASOPHILS ABSOLUTE COUNT (BEAKER) 0.02 K/ L 0.01-0.08 (test code = 417) IMMATURE GRANULOCYTES-RELATIVE 0 % 0-1 PERCENT (BEAKER) (test code = 2801) POCT-GLUCOSE [id number] 22:38:00 Test Item Value Reference Range Interpretation Comments POC-GLUCOSE METER 176 mg/dL 70-110 H : TESTED A T [facility] 6720 (BEAKER) (test code = [place], 1538) [address]: Workforce Investment Act Career Manager/Techni daniel ID = [id number] for LUIZA CID ECG 12 [id number] 13:23:51Interface, External Ris In - 02/27/2020 1:23 PM CDTVentricular Rate 60 BPMAtrial Rate 60 BPMP-R Interval 196 msQRS Duration 128 msQ-T Interval 428 msQTC Calculation(Bazett) 428 msP [place] 26 degreesR [place] -11 degreesT [place] 20 degreesNormal sinus rhythmRight bundle branch blockAbnormal ECGWhen compared with ECG of 26-FEB-2020 11:29,No significant change was foundConfirmed by Rai NAVARRO, ABRIL ([id number]) on 02/27/2020 1:23:50 [facility] CenterHemoglobin A1c - [id number] 08:25:00 Test Item Value Reference Range Interpretation Comments Hemoglobin A1C (test code = 4548-4) 6.4 % 4.3-6.1 H SHA (test code = SHA) Fasting Lab Interpretation (test code = Abnormal 60031-5) [facility] HospitalHEMOGLOBIN [id number] 08:25:00 Test Item Value Reference Range Interpretation Comments HEMOGLOBIN A1C (BEAKER) (test code = 6.4 % 4.3-6.1 H 368) FastingTSH/Free T4 If [id number] 07:15:00 Test Item Value Reference Range Interpretation Comments TSH (test code = 1.445 0.350- 4.940 uIU/mL 84425-8) SHA (test code = SHA) Workforce Investment Act Career Manager ID - EDASI Lab Interpretation (test Normal code = 38529-2) [facility] HospitalVitamin B12 and [id number] 07:15:00 Test Item Value Reference Range Interpretation Comments Vitamin B12 (test code = 283 pg/mL 872-494 8564-9) Folate (test code = 8.00 ng/mL >=7.00 2284-8) SHA (test code = SHA) Workforce Investment Act Career Manager ID - EDASI Lab Interpretation (test Normal code = 52676-6) [facility] HospitalTSH/FREE T4 IF [id number] 07:15:00 Test Item Value Reference Range Interpretation Comments THYROID STIMULATING HORMONE 1.445 uIU/mL 0.350-4.940 (BEAKER) (test code = 772) Workforce Investment Act Career Manager ID - TARANVITAMIN B12 AND [id number] 07:15:00 Test Item Value Reference Range Interpretation Comments VITAMIN B12 (BEAKER) (test code = 283 pg/mL 213-816 774) FOLATE (BEAKER) (test code = 362) 8.00 ng/mL >=7.00 Workforce Investment Act Career Manager ID - TARANFasting lipid [id number] 06:51:00 Test Item Value Reference Range Interpretation Comments Triglycerides (test 169 mg/dL code = 2571-8) Cholesterol (test code 85 mg/dL = 3-3) HDL (test code = 16 mg/dL 2084-9) LDL Calculated (test 35 mg/dL code = 02491-6) SHA (test code = SHA) Triglyceride Reference Range: Low Risk <150 Borderline 150-199 High Risk 200-499 Very High Risk >=500 Cholesterol Reference Range: Low Risk <200 Borderline 200-239 High Risk >240 HDL Cholesterol Reference Range: Low Risk >=60 High Risk <40 LDL Cholesterol Reference Range: Optimal <100 Near Optimal 100-129 Borderline 130-159 High 160-189 Very High >=190 [employer] Career Manager ID - SINDHU Hilary [facility] [id number] 06:51:00 Test Item Value Reference Range Interpretation Comments Protein, Total (test code 6.5 6.0- 8.3 gm/dL = 2885-2) Albumin (test code = 3.7 g/dL 3.5-5 17006-5) Total Bilirubin (test code 0.4 mg/dL 0.2-1.2 = 1974-2) Bilirubin, Direct (test 0.2 mg/dL 0.1-0.5 code = 1967-7) Alkaline Phosphatase (test 64 U/L 40-150 code = 6768-6) AST (test code = 1920-8) 16 U/L 5-34 ALT (test code = 1742-6) 18 U/L 6-55 SHA (test code = SHA) [employer] JERAD Richard Lab Interpretation (test Normal code = 48930-9) [facility]2020-10-31 06:51:00 Test Item Value Reference Range Interpretation Comments Magnesium (test code = 1.7 mg/dL 1.6-2.6 89939-6) SHA (test code = SHA) [employer] Career Manager ID - SINDHU M Lab Interpretation (test Normal code = 87973-8) [facility]2020-10-[facility] 06:51:00 Test Item Value Reference Range Interpretation Comments Phosphorus (test code = 3.6 mg/dL 2.3-4.7 2777-1) SHA (test code = SHA) [employer] Career Manager ID - SINDHU M Lab Interpretation (test Normal code = 57032-0) [facility]OLIC [id number] 06:51:00 Test Item Value Reference Range Interpretation Comments SODIUM (BEAKER) 138 meq/L 136-145 (test code = 381) POTASSIUM (BEAKER) 4.2 meq/L 3.5-5.1 (test code = 379) CHLORIDE (BEAKER) 110 meq/L 98-107 H (test code = 382) CO2 (BEAKER) (test 20 meq/L 22-29 L code = 355) BLOOD UREA NITROGEN 27 mg/dL 7-21 H (BEAKER) (test code = 354) CREATININE (BEAKER) 1.78 mg/dL 0.57-1.25 H (test code = 358) GLUCOSE RANDOM 126 mg/dL 70-105 H (BEAKER) (test code = 652) CALCIUM (BEAKER) 8.2 mg/dL 8.4-10.2 L (test code = 697) EGFR (BEAKER) (test 38 mL/min/1.73 ESTIMA ARIS GFR IS code = 1092) sq m NOT ACCURATE CREATININE CLEARANCE IN PREDICTING GLOMERULAR FILTRATION RATE . ESTIMATED GFR I S NOT APPLICABLE FOR DIALYSIS PATIEN TS. Workforce [employer] Career Manager ID - SINDHU [id number] 06:51:00 Test Item Value Reference Range Interpretation Comments MAGNESIUM (BEAKER) (test code = 1.7 mg/dL 1.6-2.6 627) [employer] Career Manager ID - SINDHU [id number] 06:51:00 Test Item Value Reference Range Interpretation Comments PHOSPHORUS (BEAKER) (test code = 3.6 mg/dL 2.3-4.7 604) [employer]force Investment Act Career Manager ID - SINDHU MLIPID [id number] 06:51:00 Test Item Value Reference Range Interpretation Comments TRIGLYCERIDES (BEAKER) (test code = 169 mg/dL 540) CHOLESTEROL (BEAKER) (test code = 85 mg/dL 631) HDL CHOLESTEROL (BEAKER) (test code 16 mg/dL = 976) LDL CHOLESTEROL CALCULATED (BEAKER) 35 mg/dL (test code = 633) Triglyceride Reference Range: Low Risk <150 Borderline 150-199 High Risk 200-499 Very High Risk >=500Cholesterol Reference Range: Low Risk <200 Borderline 200-239 High Risk >240HDL Cholesterol Reference Range: Low Risk >=60 High Risk <40LDL Cholesterol Reference Range: Optimal <100 Near Optimal 100-129 Borderline 130-159 High 160-189 Very High >=190 [employer]force Investment [employer] Career Manager ID - SINDHU MHEPATIC FUNCTION [id number] 06:51:00 Test Item Value Reference Range Interpretation Comments TOTAL PROTEIN (BEAKER) (test code = 6.5 gm/dL 6.0-8.3 770) ALBUMIN (BEAKER) (test code = 1145) 3.7 g/dL 3.5-5.0 BILIRUBIN TOTAL (BEAKER) (test code 0.4 mg/dL 0.2-1.2 = 377) BILIRUBIN DIRECT (BEAKER) (test 0.2 mg/dL 0.1-0.5 code = 706) ALKALINE PHOSPHATASE (BEAKER) (test 64 U/L 40-150 code = 346) AST (SGOT) (BEAKER) (test code = 16 U/L 5-34 353) ALT (SGPT) (BEAKER) (test code = 18 U/L 6-55 347) [employer] Career Manager ID - SINDHU MCBC W/PLT COUNT & AUTO [id number] 06:17:00 Test Item Value Reference Range Interpretation Comments WHITE BLOOD CELL COUNT (BEAKER) 4.1 K/ L 3.5-10.5 (test code = 775) RED BLOOD CELL COUNT (BEAKER) 3.16 M/ L 4.63-6.08 L (test code = 761) HEMOGLOBIN (BEAKER) (test code = 9.7 GM/DL 13.7-17.5 L 410) HEMATOCRIT (BEAKER) (test code = 30.1 % 40.1-51.0 L 411) MEAN CORPUSCULAR VOLUME (BEAKER) 95.3 fL 79.0-92.2 H (test code = 753) MEAN CORPUSCULAR HEMOGLOBIN 30.7 pg 25.7-32.2 (BEAKER) (test code = 751) MEAN CORPUSCULAR HEMOGLOBIN CONC 32.2 GM/DL 32.3-36.5 L (BEAKER) (test code = 752) RED CELL DISTRIBUTION WIDTH 13.9 % 11.6-14.4 (BEAKER) (test code = 412) PLATELET COUNT (BEAKER) (test 133 K/CU MM 150-450 L code = 756) MEAN PLATELET VOLUME (BEAKER) 8.9 fL 9.4-12.4 L (test code = 754) NUCLEATED RED BLOOD CELLS 0 /100 WBC 0-0 (BEAKER) (test code = 413) NEUTROPHILS RELATIVE PERCENT 46 % (BEAKER) (test code = 429) LYMPHOCYTES RELATIVE PERCENT 39 % (BEAKER) (test code = 430) MONOCYTES RELATIVE PERCENT 8 % (BEAKER) (test code = 431) EOSINOPHILS RELATIVE PERCENT 7 % (BEAKER) (test code = 432) BASOPHILS RELATIVE PERCENT 0 % (BEAKER) (test code = 437) NEUTROPHILS ABSOLUTE COUNT 1.87 K/ L 1.78-5.38 (BEAKER) (test code = 670) LYMPHOCYTES ABSOLUTE COUNT 1.59 K/ L 1.32-3.57 (BEAKER) (test code = 414) MONOCYTES ABSOLUTE COUNT (BEAKER) 0.32 K/ L 0.30-0.82 (test code = 415) EOSINOPHILS ABSOLUTE COUNT 0.28 K/ L 0.04-0.54 (BEAKER) (test code = 416) BASOPHILS ABSOLUTE COUNT (BEAKER) 0.01 K/ L 0.01-0.08 (test code = 417) IMMATURE GRANULOCYTES-RELATIVE 0 % 0-1 PERCENT (BEAKER) (test code = 2801) POCT-GLUCOSE [id number] 21:38:00 Test Item Value Reference Range Interpretation Comments POC-GLUCOSE METER 159 mg/dL 70-110 H : Notified RN/MD: (SHANEKA) (test code = TESTED AT [facility] 1354 7919) [facility], [id number]: Workforce Investment Act Career Manager/Techni daniel ID = [id number] for FORTUNATO GARZON MR, BRAIN, WITHOUT [id number] 19:25:00Unlisted Reason for Exam - Click Yes and Enter Reason Below->No Deos the patient have an implanted electronic device?->No[facility] : 1950 Sex: MFINAL REPORT MR, BRAIN, WITHOUT CONTRAST INDICATION: Ataxia, stroke suspected TECHNIQUE: Multiplanar, multisequence MR imaging of the brain without intravenous contrast. COMPARISON: CT and CTA 02/26/2020 FINDINGS: Intracranial: There are multiple small foci of restricted diffusion and FLAIR hyperintensity within the mesial left temporal lobe consistent with acute infarcts. Additional punctate focus of restricted diffusion within the left occipital lobe. No acute intracranial hemorrhage. No mass effect. No hydrocephalus. Visualized intracranial flow voids are of normal course and caliber. Generalized cerebral atrophy with ex vacuo dilatation of the ventricular system proportionate to sulci. Small focus of encephalomalacia in the left precentral cortex. Scattered foci of T2 prolongation within the periventricular and subcortical white matter are a nonspecific finding commonly attributed to chronic small vessel ischemic disease. Sinuses: Mild mucosal thickening in the paranasal sinuses. Trace bilateral mastoid fluid. Orbits: Globes are intact. Calvarium \\T\\ scalp: Unremarkable. 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 Signed: Gloria Chavez Verified Date/Time: 02/26/2020 19:25:47 Electronicallysigned by: GLORIA CHAVEZ MD on 02/26/2020 07:25 PMMR brain without IV [id number] 19:25:00Interface, External Ris In - 02/26/2020 7:28 PM CDTFINAL REPORT MR, BRAIN, WITHOUT CONTRAST INDICATION: Ataxia, stroke suspected TECHNIQUE: Multiplanar, multisequence MR imagingof the brain without intravenous contrast. COMPARISON: CT and CTA 02/26/2020 FINDINGS: Intracranial: There are multiple small foci of restricted diffusion and FLAIR hyperintensity within the mesial left temporal lobe consistent with acute infarcts. Additional punctate focus of restricted diffusion within the left occipital lobe. No acute intracranial hemorrhage. No mass effect. No hydrocephalus. Visualized intracranial flow voids are of normal course and caliber. Generalized cerebral atrophy with ex vacuo dilatation of the ventricular system proportionate to sulci. Small focus of encephalomalaciain the left precentral cortex. Scattered foci of T2 prolongation within the periventricular and subcortical white matter are a nonspecific finding commonly attributed to chronic small vessel ischemic disease. Sinuses: Mild mucosal thickening in the paranasal sinuses. Trace bilateral mastoid fluid. Orbits: Globes are intact. Calvarium \\T\\ scalp: Unremarkable. 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 Signed: Gloria Chavez Verified Date/Dillon e: 02/26/2020 19:25:47 [facility] If [id number] 15:04:00 Test Item Value Reference Range Interpretation Comments Color, UA (test code = 5778-6) Yellow Clarity, UA (test code = 5767-9) Clear Specific [place], UA (test code = 1.020 1.005-1.030 5811-5) pH, UA (test code = 5803-2) 5.5 5.0-9.0 Protein, UA (test code = 19288-6) 30 mg/dL Negative A Glucose, UA (test code = 365) Negative Negative Ketones, UA (test code = 2514-8) Negative Negative Bilirubin, UA (test code = 85151-1) Negative Negative Blood, UA (test code = 81393-5) Negative Negative Nitrite, UA (test code = 5802-4) Negative Negative Leukocytes, UA (test code = 5799-2) Negative Negative Urobilinogen, UA (test code = 0.2 mg/dL 0.2-1 47959-6) Specimen Source (test code = 2795) Lab Interpretation (test code = Abnormal 48075-3) [facility]CROSCOPIC IF [id number] 15:04:00 Test Item Value Reference Range Interpretation Comments COLOR (BEAKER) (test code = 470) Yellow CLARITY (BEAKER) (test code = 469) Clear SPECIFIC GRAVITY UA (BEAKER) (test 1.020 1.005-1.030 code = 468) PH UA (BEAKER) (test code = 467) 5.5 5.0-9.0 PROTEIN UA (BEAKER) (test code = 30 mg/dL Negative A 464) GLUCOSE UA (BEAKER) (test code = Negative Negative 365) KETONES UA (BEAKER) (test code = Negative Negative 371) BILIRUBIN UA (BEAKER) (test code = Negative Negative 462) BLOOD UA (BEAKER) (test code = 461) Negative Negative NITRITE UA (BEAKER) (test code = Negative Negative 465) LEUKOCYTE ESTERASE UA (BEAKER) Negative Negative (test code = 466) UROBILINOGEN UA (BEAKER) (test code 0.2 mg/dL 0.2-1.0 = 463) SOURCE(BEAKER) (test code = 2795) [id number] 11:46:00 Test Item Value Reference Range Interpretation Comments Protime (test code = 9.9 9.8- 12.0 seconds 5902-2) INR (test code = 0.96 <=5.90 6301-6) PTT (test code = 20.6 25.8- 34.5 L 54827-4) seconds SHA (test code = SHA) RECOMMENDED COUMADIN/WARFARIN INR THERAPY RANGESSTANDARD DOSE: 2.0 - 3.0 Includes: PROPHYLAXIS for venous thrombosis, systemic embolization; TREATMENT for venous thrombosis and/or pulmonary embolus.HIGH RISK: Target INR is 2.5-3.5 for patients with mechanical heart valves. Lab Interpretation Abnormal (test code = 38995-9) [facility] HospitalPT/[id number] 11:46:00 Test Item Value Reference Range Interpretation Comments PROTIME (BEAKER) (test code = 9.9 seconds 9.8-12.0 759) INR (BEAKER) (test code = 370) 0.96 <=5.90 PARTIAL THROMBOPLASTIN TIME 20.6 seconds 25.8-34.5 L (BEAKER) (test code = 760) RECOMMENDED COUMADIN/WARFARIN INR THERAPY RANGESSTANDARD DOSE: 2.0 - 3.0 Includes: PROPHYLAXIS forvenous thrombosis, systemic embolization; TREATMENT for venous thrombosis and/or pulmonary embolus.HIGH RISK: Target INR is 2.5-3.5 for patients with mechanical heart valves.CT, CAROTID, [id number] 11:44:00 Reason for exam:->vision lossWhat is the patient's sedation requirement?- >No SedationKERN [facility]Name[facility] : 1950 Sex: MFINAL REPORT EXAMINATION: CT angiogram of the [place] andneck with contrast CLINICAL HISTORY: 70-year-old male with subacute neurologic deficit, right arm weakness.COMPARISON: None availableTECHNIQUE: The head and neck were scanned utilizing a multidetector helical scanner from the thoracic inlet to the vertex after the I.V contrast administration of 100mL of Isovue 370 mg . For optimization of of anatomic evaluation, multi-planar reconstructions, maximum intensity projections, and advanced 3D off-line post- processing was obtained and performed on a dedicated stand-alone workstation under the direct supervision of the interpreting physician.Dose modulation, iterative reconstruction, and/or weight based adjustment of the mA/kV was utilized to reducethe radiation dose to as low as reasonably achievable. CT ANGIOGRAM OF THE [place] FINDINGS:Prominent calcified atherosclerotic plaque in the bilateral cavernous ICAs with mild to moderate stenoses.Otherwise the internal carotid artery segments as well as the middle cerebral and anterior cerebral arteries are normal in caliber. The vertebro-basilar circulation is normal. No vascular malformation or aneurysmal dilatation is seen.The draining venous structures are normal and patent. Anatomic variation:Anterior Communicating Artery: PatentPosterior Communicating Arteries: Not well visualizedVertebral arteries: The left is dominantAccessory anterior cerebral artery. CT ANGIOGRAM OF THE NECK FINDINGS:If present, stenosis of the carotid bulbs is measured based on NASCET criteria i.e area of maximum stenosis compared to the cervical ICA distal to the bulb. Minimal calcified plaque near the origin of the left vertebral artery without associated significant stenoses. The origin of the right vertebral and bilateral bilateral common carotid arteries is patent. Mixed, soft and calcified atherosclerotic plaque in the bilateral carotid bulbs results in mild stenoses (less than 50%) per NASCET criteria. Right Carotid Artery:The common carotid, internal and external carotid arteries at the levelof the neck are normal in caliber, and patent, no evidence of stenoses. Left carotid artery:The common carotid, internal and external carotid arteries at the level of the neck are normal in caliber,and patent, no evidence of stenoses. Vertebral Arteries:Calcified atherosclerotic plaque of the left intracranial vertebral artery without significant stenoses. Mixed, soft and calcified plaque in the right intracranial vertebral artery at the level of the foramen magnum results in moderate stenoses. Otherwise both vertebral arteries are normal in morphology and caliber. The left is dominant.. IMP RESSION: 1.No large vessel occlusion. 2.Atherosclerotic plaque in the bilateral carotid bulbs resultin mild stenosis (less than 50%). 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 4.Atherosclerotic plaque in the bilateral intracranial vertebral arteries as above. Signed: Rolando Atwood MDReport Verified Date/Time: 02/26/2020 11:44:58 Reading Location: [facility] Room [address] [place] [address] CT, CTAIO [id number] 11:44:00Reason for exam:->Symptom onset less than 6 hours and NIHSS 6 or greaterREG[facility] : 1950 Sex: MFINAL REPORT EXAMINATION: CT angiogram of the [place] andneck with contrast CLINICAL HISTORY: 70-year-old male with subacute neurologic deficit, right arm weakness.COMPARISON: None availableTECHNIQUE: The head and neck were scanned utilizing a multidetector helical scanner from the thoracic inlet to the vertex after the I.V contrast administration of 100mL of Isovue 370 mg . For optimization of of anatomic evaluation, multi-planar reconstructions, maximum intensity projections, and advanced 3D off-line post- processing was obtained and performed on a dedicated stand-alone workstation under the direct supervision of the interpreting physician.Dose modulation, iterative reconstruction, and/or weight based adjustment of the mA/kV was utilized to reducethe radiation dose to as low as reasonably achievable. CT ANGIOGRAM OF THE [place] FINDINGS:Prominent calcified atherosclerotic plaque in the bilateral cavernous ICAs with mild to moderate stenoses.Otherwise the internal carotid artery segments as well as the middle cerebral and anterior cerebral arteries are normal in caliber. The vertebro-basilar circulation is normal. No vascular malformation or aneurysmal dilatation is seen.The draining venous structures are normal and patent. Anatomic variation:Anterior Communicating Artery: PatentPosterior Communicating Arteries: Not well visualizedVertebral arteries: The left is dominantAccessory anterior cerebral artery. CT ANGIOGRAM OF THE NECK FINDINGS:If present, stenosis of the carotid bulbs is measured based on NASCET criteria i.e area of maximum stenosis compared to the cervical ICA distal to the bulb. Minimal calcified plaque near the origin of the left vertebral artery without associated significant stenoses. The origin of the right vertebral and bilateral bilateral common carotid arteries is patent. Mixed, soft and calcified atherosclerotic plaque in the bilateral carotid bulbs results in mild stenoses (less than 50%) per NASCET criteria. Right Carotid Artery:The common carotid, internal and external carotid arteries at the levelof the neck are normal in caliber, and patent, no evidence of stenoses. Left carotid artery:The common carotid, internal and external carotid arteries at the level of the neck are normal in caliber,and patent, no evidence of stenoses. Vertebral Arteries:Calcified atherosclerotic plaque of the left intracranial vertebral artery without significant stenoses. Mixed, soft and calcified plaque in the right intracranial vertebral artery at the level of the foramen magnum results in moderate stenoses. Otherwise both vertebral arteries are normal in morphology and caliber. The left is dominant.. IMP RESSION: 1.No large vessel occlusion. 2.Atherosclerotic plaque in the bilateral carotid bulbs resultin mild stenosis (less than 50%). 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 4.Atherosclerotic plaque in the bilateral intracranial vertebral arteries as above. Signed: Rolando Atwood MDReport Verified Date/Time: 02/26/2020 11:44:58 Reading Location: [facility] Reading Room [address] [place] [address] [facility] [id number] 11:44:00 Interface, External Ris In - 02/26/2020 11:47 AM CDTFINAL REPORT EXAMINATION:CT angiogram of the [place] and neck with contrast CLINICAL HISTORY: 70-year-old male withsubacute neurologic deficit, right arm weakness.COMPARISON: None availableTECHNIQUE: The head and neck were scanned utilizing a multidetector helical scanner from the thoracic inlet to the vertex after the I.V contrast administration of 100 mL of Isovue 370 mg . For optimization of of anatomic evaluation, multi-planar reconstructions, maximum intensity projections, and advanced 3D off-line post-processing was obtained and performed on a dedicated stand-alone workstation under the direct supervision of the interpreting physician.Dose modulation, iterative reconstruction, and/or weight based adjustment of the mA/kV was utilized to reduce the radiation dose to as low as reasonably achievable. CT ANGIOGRAM OF THE [place] FINDINGS:Prominent calcified atherosclerotic plaque in the bilateralcavernous ICAs with mild to moderate stenoses.Otherwise the internal carotid artery segments as wellas the middle cerebral and anterior cerebral arteries are normal in caliber. The vertebro-basilar circulation is normal. No vascular malformation or aneurysmal dilatation is seen.The draining venous structures are normal and patent. Anatomic variation:Anterior Communicating Artery: PatentPosterior Comm unicating Arteries: Not well visualizedVertebral arteries: The left is dominantAccessory anterior cerebral artery. CT ANGIOGRAM OF THE NECK FINDINGS:If present, stenosis of the carotid bulbs is measured based on NASCET criteria i.e area of maximum stenosis compared to the cervical ICA distal to the bulb. Minimal calcified plaque near the origin of the left vertebral artery without associated significant stenoses. The origin of the right vertebral and bilateral bilateral common carotid arteries is patent. Mixed, soft and calcified atherosclerotic plaque in the bilateral carotid bulbs results in mildstenoses (less than 50%) per NASCET criteria. Right Carotid Artery:The common carotid, internal and external carotid arteries at the level of the neck are normal in caliber, and patent, no evidence of stenoses. Left carotid artery:The common carotid, internal and external carotid arteries at thelevel of the neck are normal in caliber, and patent, no evidence of stenoses. Vertebral Arteries:C alcified atherosclerotic plaque of the left intracranial vertebral artery without significant stenoses. Mixed, soft and calcified plaque in the right intracranial vertebral artery at the level of the foramen magnum results in moderate stenoses. Otherwise both vertebral arteries are normal in morphology and caliber. The left is dominant.. IMPRESSION: 1.No large vessel occlusion. 2.Atherosclerotic plaque in the bilateral carotid bulbs result in mild stenosis (less than 50%). 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 4.Atherosclerotic plaque in the bilateral intracranial vertebral arteries as above. Signed: Rolando Atwood MDReport Verified Date/Time: 02/26/2020 11:44:58 Reading Location: [facility] Reading Room [address] [place] [address] Electronicallysigned by: ROLANDO ATWOOD on 02/26/2020 11:44 [facility]CT[facility]CTA [id number] 11:44:00Interface, External Ris In - 02/26/2020 11:47 AM CDTFINAL REPORT EXAMINATION: CT angiogram of the [place] and neck with contrast CLINICAL HISTORY: 70-year-old male withsubacute neurologic deficit, right arm weakness.COMPARISON: None availableTECHNIQUE: The head and neck were scanned utilizing a multidetector helical scanner from the thoracic inlet to the vertex after the I.V contrast administration of 100 mL of Isovue 370 mg . For optimization of of anatomic evaluation, multi-planar reconstructions, maximum intensity projections, and advanced 3D off-line post-processing was obtained and performed on a dedicated stand-alone workstation under the direct supervision of the interpreting physician.Dose modulation, iterative reconstruction, and/or weight based adjustment of the mA/kV was utilized to reduce the radiation dose to as low as reasonably achievable. CT ANGIOGRAM OF THE [place] FINDINGS:Prominent calcified atherosclerotic plaque in the bilateralcavernous ICAs with mild to moderate stenoses.Otherwise the internal carotid artery segments as wellas the middle cerebral and anterior cerebral arteries are normal in caliber. The vertebro-basilar circulation is normal. No vascular malformation or aneurysmal dilatation is seen.The draining venous structures are normal and patent. Anatomic variation:Anterior Communicating Artery: PatentPosterior Comm unicating Arteries: Not well visualizedVertebral arteries: The left is dominantAccessory anterior cerebral artery. CT ANGIOGRAM OF THE NECK FINDINGS:If present, stenosis of the carotid bulbs is measured based on NASCET criteria i.e area of maximum stenosis compared to the cervical ICA distal to the bulb. Minimal calcified plaque near the origin of the left vertebral artery without associated significant stenoses. The origin of the right vertebral and bilateral bilateral common carotid arteries is patent. Mixed, soft and calcified atherosclerotic plaque in the bilateral carotid bulbs results in mildstenoses (less than 50%) per NASCET criteria. Right Carotid Artery:The common carotid, internal and external carotid arteries at the level of the neck are normal in caliber, and patent, no evidence of stenoses. Left carotid artery:The common carotid, internal and external carotid arteries at thelevel of the neck are normal in caliber, and patent, no evidence of stenoses. Vertebral Arteries:C alcified atherosclerotic plaque of the left intracranial vertebral artery without significant stenoses. Mixed, soft and calcified plaque in the right intracranial vertebral artery at the level of the foramen magnum results in moderate stenoses. Otherwise both vertebral arteries are normal in morphology and caliber. The left is dominant.. IMPRESSION: 1.No large vessel occlusion. 2.Atherosclerotic plaque in the bilateral carotid bulbs result in mild stenosis (less than 50%). 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 4.Atherosclerotic plaque in the bilateral intracranial vertebral arteries as above. Signed: Rolando Atwood MDReport Verified Date/Time: 02/26/2020 11:44:58 Reading Location: [facility] Reading Room [address] [place] [address] Electronicallysigned by: ROLANDO ATWOOD on 02/26/2020 11:44 [facility]POCT[facility] [id number] 11:39:00 Test Item Value Reference Range Interpretation Comments POC-GLUCOSE METER 116 mg/dL 70-110 H : TESTED A T [facility] 7200 (BEAKER) (test code BRENDAN Nino BLCOLIN A, = 1538) [facility] 7703 0: Workforce Investment Act Career Manager/Techni daniel ID = [id number] for BRII LEROY B-type Natriuretic Factor (BNP)2020-02-26 11:35:00 Test Item Value Reference Range Interpretation Comments BNP (test code = 95766-4) 18 pg/mL 0-100 Lab Interpretation (test code = Normal 32871-4) [facility] [id number] 11:35:00 Test Item Value Reference Range Interpretation Comments Troponin I (test code = 0.01 ng/mL 0-0.03 91465-9) SHA (test code = SHA) Troponin I (TnI) levels must be interpreted in the context of the presenting symptoms and the clinical findings. Elevated TnI levels indicate myocardial damage, but are not specific for ischemic heart disease. Elevated TnI levels are seen in patients with other cardiac conditions (including myocarditis and congestive heart failure), and slight TnI elevations occur in patients with other conditions, including sepsis, renal failure, acidosis, acute neurological disease, and persistent tachyarrhythmia. Lab Interpretation (test Normal code = 32093-0) [facility]OLIC [id number] 11:35:00 Test Item Value Reference Range Interpretation Comments SODIUM (BEAKER) 140 meq/L 136-145 (test code = 381) POTASSIUM (BEAKER) 4.9 meq/L 3.5-5.1 Specimen moderately (test code = 379) hemolyzed CHLORIDE (BEAKER) 109 meq/L 98-107 H (test code = 382) CO2 (BEAKER) (test 22 meq/L 22-29 code = 355) BLOOD UREA NITROGEN 28 mg/dL 7-21 H (BEAKER) (test code = 354) CREATININE (BEAKER) 2.13 mg/dL 0.57-1.25 H Specimen moderately (test code = 358) hemolyzed GLUCOSE RANDOM 138 mg/dL 70-105 H (BEAKER) (test code = 652) CALCIUM (BEAKER) 8.7 mg/dL 8.4-10.2 (test code = 697) EGFR (BEAKER) (test 31 mL/min/1.73 ESTIMA ARIS GFR IS code = 1092) sq m NOT ACCURATE CREATININE CLEARANCE IN PREDICTING GLOMERULAR FILTRATION RATE . ESTIMATED GFR I S NOT APPLICABLE FOR DIALYSIS PATIEN TS. [id number] 11:35:00 Test Item Value Reference Range Interpretation Comments MAGNESIUM (BEAKER) 1.7 mg/dL 1.6-2.6 Specimen moderately (test code = 627) hemolyzed TROPONIN [id number] 11:35:00 Test Item Value Reference Range Interpretation Comments TROPONIN I (BEAKER) (test code = 0.01 ng/mL 0.00-0.03 397) Troponin I (TnI) levels must be interpreted in the context of the presenting symptoms and the clinical findings. Elevated TnI levels indicate myocardial damage, but are not specific for ischemic heart disease. Elevated TnI levels are seen in patients with other cardiac conditions (including myocarditis and congestive heart failure), and slight TnI elevations occur in patients with other conditions, including sepsis, renal failure, acidosis, acute neurological disease, and persistent tachyarrhythmia.B-TYPE NATRIURETIC FACTOR (BNP) 2020-02-26 11:35:00 Test Item Value Reference Range Interpretation Comments B-TYPE NATRIURETIC PEPTIDE (BEAKER) 18 pg/mL 0-100 (test code = 700) CBC W/PLT COUNT & AUTO [id number] 11:35:00 Test Item Value Reference Range Interpretation Comments WHITE BLOOD CELL COUNT (BEAKER) 6.0 K/ L 3.5-10.5 (test code = 775) RED BLOOD CELL COUNT (BEAKER) 3.71 M/ L 4.63-6.08 L (test code = 761) HEMOGLOBIN (BEAKER) (test code = 11.5 GM/DL 13.7-17.5 L 410) HEMATOCRIT (BEAKER) (test code = 34.9 % 40.1-51.0 L 411) MEAN CORPUSCULAR VOLUME (BEAKER) 94.1 fL 79.0-92.2 H (test code = 753) MEAN CORPUSCULAR HEMOGLOBIN 31.0 pg 25.7-32.2 (BEAKER) (test code = 751) MEAN CORPUSCULAR HEMOGLOBIN CONC 33.0 GM/DL 32.3-36.5 (BEAKER) (test code = 752) RED CELL DISTRIBUTION WIDTH 14.0 % 11.6-14.4 (BEAKER) (test code = 412) PLATELET COUNT (BEAKER) (test 197 K/CU MM 150-450 code = 756) MEAN PLATELET VOLUME (BEAKER) 9.9 fL 9.4-12.4 (test code = 754) NEUTROPHILS RELATIVE PERCENT 55 % (BEAKER) (test code = 429) LYMPHOCYTES RELATIVE PERCENT 34 % (BEAKER) (test code = 430) MONOCYTES RELATIVE PERCENT 7 % (BEAKER) (test code = 431) EOSINOPHILS RELATIVE PERCENT 4 % (BEAKER) (test code = 432) BASOPHILS RELATIVE PERCENT 0 % (BEAKER) (test code = 437) NEUTROPHILS ABSOLUTE COUNT 3.31 K/ L 1.78-5.38 (BEAKER) (test code = 670) LYMPHOCYTES ABSOLUTE COUNT 2.02 K/ L 1.32-3.57 (BEAKER) (test code = 414) MONOCYTES ABSOLUTE COUNT (BEAKER) 0.39 K/ L 0.30-0.82 (test code = 415) EOSINOPHILS ABSOLUTE COUNT 0.26 K/ L 0.04-0.54 (BEAKER) (test code = 416) BASOPHILS ABSOLUTE COUNT (BEAKER) 0.01 K/ L 0.01-0.08 (test code = 417) IMMATURE GRANULOCYTES-RELATIVE 0 % 0-1 PERCENT (BEAKER) (test code = 2801) XR chest 1 view portable / [id number] 11:31:00Interface, External Ris In - 02/26/2020 11:36 AM CDTFINAL REPORT RAD, CHEST, 1 VIEW, NON DEPT INDICATION: muscle weakness COMPARISON: September 13, 2019 FINDINGS: Portable frontal viewof the chest. IMPRESSION: Support Lines: Port-A-Cath tip overlies the atriocaval junction. Lungs and pleura: Unchanged airspace and pleural opacities. No pneumothorax.Heart and mediastinum: Stable contours. Stable surgical changes.Additional findings: None. Signed: Quyen Torres VerifiedDate/Time: 02/26/2020 11:31:39 Reading Location: [facility]PT 2020-02-26 11:31:00Reason for exam:->muscle weakness [facility] 1950 Sex: MFINAL REPORT RAD, CHEST, 1 VIEW, NON DEPT INDICATION: muscle weakness COMPARISON: September 13, 2019 FINDINGS: Portable frontal view of the chest. IMPRESSION: Support Lines: Port-A-Cath tip overlies the atriocaval junction. Lungs and pleura: Unchanged airspace and pleural opacities. No pneumothorax.Heart and mediastinum: Stable contours. Stable surgical changes.Additional findings: None. Signed: Quyen Torres Verified Date/Time: 02/26/2020 11:31:39 Reading Location: [facility] Radiology Reading Room [facility] brain/stroke [id number] 11:24:00Interface, External Ris In - 02/26/2020 11:44 AM CDTAddendum BeginsREPORT STATUS:A No intracranial hemorrhage.Left posterior frontal/precentral gyrus cortico-subcortical hypodensity is new since prior CT of 09/13/2019. The findings were discussed with the RN Brii Colon on 02/26/2020 at 11:15 AM Signed: Rolando Atwood MDReport Verified Date/Time: 02/26/2020 11:24:42 Reading Location: [facility] Reading Room [address] [place], [place] [address]ddendum EndsFINAL REPORT EXAMINATION:Head CT HISTORY: 70-year-old male with subacute neurologic deficit, right arm weakness.COMPARISON: Outside head CT 09/13/2019TECHNIQUE: Multidetector axial images were obtained without contrast from the foramen magnum to the vertex. Dose modulation, iterative reconstruction, and/or weight based adjustment of the mA/kV was utilized to reduce the radiation dose to as low as reasonably achievable. FINDINGS: Parenchyma: 1.Subtle ill-defined hypodensity in the left frontal pulido radiata/centrum semiovale white matter adjacent to the left middle frontal gyrus may correspond to an age indeterminate infarct, this was not clearly visualized on prior head CT of 09/13/2019.2.Few scattered and moderate confluent periventricular white matter hypodensities, most likely nonspecific chronic microvascular ischemic changes.3.No mass or hemorrhage. No CT evidence of acute territorial vascular insult.Extra-axial spaces:No abnormal density. No extra- axial fluid collections Brain volume: Normal for age. Ventricles: No hydrocephalus or displacement. Arteries: No density suggestive of th rombus. Dural sinuses: No abnormal density. Extra-axial spaces: No abnormal density. Foramen magnum: No mass, Chiari malformation, or basilar invagination. Sella: No obvious mass. Paranasal/mastoid sinuses: Opacification of the left posterior ethmoidal air cells. Otherwise clear Skull/Scalp: No lytic or blastic lesions. No fractures. IMPRESSION: 1.No acute intracranial hemorrhage.2.Left frontal white matter hypodensity corresponds to an age indeterminate ischemia which was not seen on prior head CT of 09/13/2019.3.Mild chronic microvascular ischemic changes. Signed: Rolando Atwood MDReport Verified Date/Time: 02/26/2020 11:14:42 Reading Location: [facility] Reading Room [address] [place], [place] [id number] [facility]STROKE PROTOCOL 2020-02-26 11:24:00Reason for exam:->right arm lack of coordination, vision changesWhat is the patient's sedation requirement?->No Sedation [facility] : 1950 Sex: MAddendum BeginsREPORT STATUS:A No intracranial hemorrhage.Left posterior frontal/precentral gyrus cortico-subcortical hypodensity is new since prior CT of 09/13/2019. The findings were discussed with the DAVID Colon on 02/26/2020 at 11:15 AM Signed: Rolando Atwood MDReport Verified Date/Time: 02/26/2020 11:24:42 Reading Location: [facility] Reading Room [address] [place] [address] dendum EndsFINAL REPORT EXAMINATION: Head CT HISTORY: 70-year-old male with subacute neurologic deficit, right arm weakness.COMPARISON: Outside head CT 09/13/2019TECHNIQUE: Multidetector axial images were obtained without contrast from the foramen magnum to the vertex. Dose modulation, iterative reconstruction, and/or weight based adjustment of the mA/kV was utilized to reduce the radiation dose to as low as reasonably achievable. FINDINGS: Parenchyma: 1.Subtle ill-defined hypodensity in the left frontal pulido radiata/centrum semiovale white matter adjacent to the left middle frontal gyrus may correspond to an age indeterminate infarct, this was not clearly visualized on prior head CT of 09/13/2019.2.Few scattered and moderate confluent periventricular white matter hypodensities, most likely nonspecific chronic microvascular ischemic changes.3.No mass or hemorrhage. No CT evidence of acute territorial vascular insult. Extra-axial spaces:No abnormal density. No extra-axial fluid collections Brain volume: Normal for age. Ventricles: No hydrocephalusor displacement. Arteries: No density suggestive of thrombus. Dural sinuses: No abnormal density. Extra-axial spaces: No abnormal density. Foramen magnum: No mass, Chiari malformation, or basilar invagination. Sella: No obvious mass. Paranasal/mastoid sinuses: Opacification of the left posterior ethmoidal air cells. Otherwise clear Skull/Scalp: No lytic or blasticlesions. No fractures. IMPRESSION: 1.No acute intracranial hemorrhage.2.Left frontal white matter hypodensity corresponds to an age indeterminate ischemia which was not seen on prior head CT of 09/13/2019.3.Mild chronic microvascular ischemic changes. Signed: Rolando Atwood MDReport Verified Date/Time: 02/26/2020 11:14:42 Reading Location: [facility] Reading Room [address] [place] [address] Electronically sig andry by: ROLANDO ATWOOD on 02/26/2020 11:24 AMECG/EKG [id number] 11:05:03Griselda Benítez MD 02/26/2020 12:25 PMECG/EKG Interpretation Date/Time: 02/26/2020 12:24 PMPerformed by: Griselda Benítez MDAuthorized by: Griselda Benítez MD The ECG was interpreted by ED physician. This ECG was not compared with previous ECG(s).The ECG is interpreted as sinus rhythm. Rate is normal rate. Heart rate is 68 BPM.ST segments normal. T-wave inversion in lead(s) V1, V2 and V3. T-wave flattening in lead(s) II, III and aVF. [place] is normal. Clinical Impression: non-specific ECGECG reviewed and does not meet STEMI criteria.[facility] CT, CHEST, WITHOUT IV [id number] 08:51:00ONCOLOGY SCAN RESTAGING [facility].Unlisted Reason for Exam - Click Yes and Enter Reason Below->YesUnlisted Reason for Exam->C64.2FINAL REPORT CT of the chest, abdomen and pelvis, without contrast Clinical History: Unlisted Reason for ExamC64.2 Technique: CT of the chest, abdomen and pelvis is performed without intravenous contrast administration. This exam was performed according to our departmental dose optimization program which includes automated exposure control, adjustment of the mA and/or kV according to patient's size and/or use of iterative reconstructive technique. Comparison Film: September and June 15, 2019 Discussion: There is a right-sided Port-A-Cath. Visualized thyroid gland is normal. No supraclavicular, axillary, mediastinal or hilar lymphadenopathy. Heart and pericardium are unremarkable. No pleural effusion. There is increased airspace opacity, and septal thickening theleft lower lobe. No bronchiectasis or bronchial wall thickening. A few scattered calcified granulomas are present. No liver lesion is identified. No biliary ductal dilatation, gallbladder is normal. The spleen, pancreas, and adrenal glands are normal. Status post left nephrectomy. There is a 4 mm nonobstructive stone in the right kidney. No hydronephrosis or contour deforming lesion. No evidence of bowel obstruction, or abnormal bowel wall thickening. In the pelvis, bladder is unremarkable. [place] is enlarged. There is a small fat-containing right inguinal hernia. Stable postoperative change of the right iliac crest. No new lesion identified. Again noted is a 3.5 cm aneurysm of the infrarenal abdominal aorta. No ascites, or lymphadenopathy. Impression: Progression of interstitial and airspace opacities in the left lower lobe, which may be due to infection, aspiration or drug reaction, correlate clinically. No disease progression identified in the abdomen or pelvis. Status post left nephrectomy. 4 mm nonobstructive stone in the right kidney. Enlarged prostate gland. Signed: Karan Fregoso Verified Date/Time: 01/06/2020 08:51:39 Reading Location: [facility] C013X [facility] Consult Reading Room CT, [id number] 08:51:00ONCOLOGY SCAN , RESTAGING RCCUnlisted Reason for Exam - Click Yes and Enter Reason Below->YesUnlisted Reason for Exam->C64.2FINAL REPORT CT of the chest, abdomen and pelvis, without contrast Clinical H istory: Unlisted Reason for ExamC64.2 Technique: CT of the chest, abdomen and pelvis is performed without intravenous contrast administration. This exam was performed according to our departmental dose optimization program which includes automated exposure control, adjustment of the mA and/or kV according to patient's size and/or use of iterative reconstructive technique. Comparison Film: September and June 15, 2019 Discussion: There is a right-sided Port-A-Cath. Visualized thyroid gland is normal. No supraclavicular, axillary, mediastinal or hilar lymphadenopathy. Heart and pericardium are unremarkable. No pleural effusion. There is increased airspace opacity, and septal thickening the left lower lobe. No bronchiectasis or bronchial wall thickening. A few scattered calcified granulomas are present. No liver lesion is identified. No biliary ductal dilatation, gallbladder is normal. The spleen, pancreas, and adrenal glands are normal. Status post left nephrectomy. There is a 4 mm nonobstructive stone in the right kidney. No hydronephrosis or contour deforming lesion. No evidence of bowel obstruction, or abnormal bowel wall thickening. In the pelvis, bladder is unremarkable. Prostategland is enlarged. There is a small fat- containing right inguinal hernia. Stable postoperative change of the right iliac crest. No new lesion identified. Again noted is a 3.5 cm aneurysm of the infrarenal abdominal aorta. No ascites, or lymphadenopathy. Impression: Progression of interstitial and airspace opacities in the left lower lobe, which may be due to infection, aspiration or drug reaction, correlate clinically. No disease progression identified in the abdomen or pelvis. Status post left nephr ectomy. 4 mm nonobstructive stone in the right kidney. Enlarged prostate gland. Signed: Karan Fregoso MDReport Verified Date/Time: 01/06/2020 08:51:39 Reading Location: [facility] C013X [facility] Consult Reading Room CT Abdomen/Pelvis without IV Contrast 2020-01-06 08:51:00Interface, External Ris In - 01/06/2020 8:[address] of the chest, abdomen and pelvis, without contrast Clinical History: Unlisted Reason for ExamC64.2 Technique: CT of the chest, abdomen and pelvis is performed without intravenous contrast administration. Thisexam was performed according to our departmental dose optimization program which includes automated exposure control, adjustment of the mA and/or kV according to patient's size and/or use of iterative r econstructive technique. Comparison Film: October 16, 2019 and June 15, 2019 Discussion: There is a right-sided Port-A-Cath. Visualized thyroid gland is normal. No supraclavicular, axillary, mediastinal or hilar lymphadenopathy. Heart and pericardium are unremarkable. No pleural effusion. There is increased airspace opacity, and septal thickening the left lower lobe. No bronchiectasis or bronchial wall thickening. A few scattered calcified granulomas are present. No liver lesion is identified. No biliary ductal dilatation, gallbladder is normal. The spleen, pancreas, and adrenal glands are normal. Status post left nephrectomy. There is a 4 mm nonobstructive stone in the right kidney. No hydronephrosis or contour deforming lesion. No evidence of bowel obstruction, or abnormal bowel wall thickening. In the pelvis, bladder is unremarkable. Prostate gland is enlarged. There is a small fat-containing right inguinal hernia. Stable postoperative change of the right iliac crest. No new lesion identified. Again noted is a 3.5 cm aneurysm of the infrarenal abdominal aorta. No ascites, or lymphadenopathy. Impression: Progression of interstitial and airspace opacities in the left lower lobe, which may be due to infection, aspiration or drug reaction, correlate clinically. No disease progression identified in the abdomen or pelvis. Status post left nephrectomy. 4 mm nonobstructive stone in the right kidney. Enlarged prostate gland. Signed: Karan Fregoso MDReport Verified Date/Time: 01/06/2020 08:51:39 Reading Location: [address] Ortho [facility] IV [id number] 08:51:00Interface, External Ris In - 01/06/2020 8:[address] of the chest, abdomen and pelvis, without contrast Clinical History: Unlisted Reason for ExamC64.2 Technique: CT of the chest, abdomen and pelvis is performed without intravenous contrast administration. Thisexam was performed according to our departmental dose optimization program which includes automated exposure control, adjustment of the mA and/or kV according to patient's size and/or use of iterative reconstructive technique. Comparison Film: October 16, 2019 and June 15, 2019 Discussion: There is a right-sided Port-A-Cath. Visualized thyroid gland is normal. No supraclavicular, axillary, mediastinal or hilar lymphadenopathy. Heart and pericardium are unremarkable. No pleural effusion. There is increased airspace opacity, and septal thickening the left lower lobe. No bronchiectasis or bronchial wall thickening. A few scattered calcified granulomas are present. No liver lesion is identified. No biliary ductal dilatation, gallbladder is normal. The spleen, pancreas, and adrenal glands are normal. Status post left nephrectomy. There is a 4 mm nonobstructive stone in the right kidney. No hydronephrosis or contour deforming lesion. No evidence of bowel obstruction, or abnormal bowel wall thickening. In the pelvis, bladder is unremarkable. Prostate gland is enlarged. There is a small fat-containing right inguinal hernia. Stable postoperative change of the right iliac crest. No new lesion identified. Again noted is a 3.5 cm aneurysm of the infrarenal abdominal aorta. No ascites, or lymphadenopathy. Impression: Progression of interstitial and airspace opacities in the left lower lobe, which may be due to infection, aspiration or drug reaction, correlate clinically. No disease progression identified in the abdomen or pelvis. Status post left nephrectomy. 4 mm nonobstructive stone in the right kidney. Enlarged prostate gland. Signed: Karan F[facility]osomanchester [facility] Verified Date/Time: 01/06/2020 08:51:39 Reading Location: [facility] B1 C013X Ortho Consult Reading [facility], [id number] 19:30:00FINAL REPORT TECHNIQUE: CT of the chest, abdomen, and pelvis WITHOUT intravenous contrast and WITHOUT oral contrast. Dose modulation, iterative reconstruction, and/or weight-based adjustment of the mA/kV was utilized to reduce the radiation dose to as low as reasonably achievable. INDICATION: clear cell renal cell carcinoma. COMPARISON: CT of the chest, abdomen, and pelvis from06/15/2019. FINDINGS: ABSENCE OF INTRAVENOUS CONTRAST DECREASES SENSITIVITY FOR DETECTION OF FOCAL LESIONS AND VASCULAR PATHOLOGY. LINES/TUBES: A right IJ port has its tip in the lower SVC. LUNGS AND AIRWAYS: The previously seen medial right lower lobe pulmonary nodule now faint groundglass opacity which measures 0.4 cm on axial image 88. The previous is seen right middle lobe interstitial and groundglass opacity has nearly. Groundglass interstitial opacity of the lingula and lateral left lower lobeis new. A right middle lobe pulmonary nodule measures 0.2 cm on axial image 72 and is unchanged. Calcified granulomas measure 0.3 cm. PLEURA: The pleural spaces are clear.HEART AND MEDIASTINUM: The visualized thyroid gland is normal. No significant mediastinal, hilar, or axillary lymphadenopathy. The heart and pericardium are within normal limits. Marked coronary arterial calcification. Marked calcification of the descending thoracic aorta. HEPATOBILIARY: A calcified granuloma in segment II measures0.4 cm. Gallbladder is unremarkable. No biliary ductal dilatation.SPLEEN: No splenomegaly.PANCREAS: No focal masses or ductal dilatation. ADRENALS: No adrenal nodules.KIDNEYS/URETERS: Prior left nephrectomy. No right hydronephrosis or exophytic masses. A right lower pole nonobstructing renal stone measures 0.4 cm.PELVIC ORGANS/BLADDER: The prostate is enlarged. Small, indirect right inguinal hernia. PERITONEUM/RETROPERITONEUM: No free air or fluid.LYMPH NODES: No lymphadenopathy.VESSELS: Intrarenal a bdominal aortic aneurysm measures 3.6 cm in diameter, previously 3.5 cm. Marked aortoiliac calcification. GI TRACT: No distention or wall thickening. The appendix is normal. BONES AND SOFT TISSUES: There has been a prior right iliac bone reconstruction with an unchanged appearance compared to 06/15/2019. The bones are diffusely demineralized. IMPRESSION: 1.No recurrent or metastatic disease in the chest, abdomen, or pelvis. 2.The interstitial and groundglass opacity in the lateral left lower lobe and lingula is most likely due to infection. A drug reaction is possible but considered less likely. 3.The previously seen medial right lower lobe pulmonary nodule is now a faint groundglass opacity and was likely infectious. The previously seen right middle lobe interstitial and groundglass opacity has resolved and was likely also infectious. 4.An abdominal aortic aneurysm measures 3.6 cm in diameter, p reviously 3.5 cm. A follow-up examination is recommended every 2 years. 5.A right lower pole nonobstructing renal stone measures 0.4 cm. Signed: Maria Elena Borrero MDReport Verified Date/Time: 10/16/2019 19:30:12 Reading Location: [address] Ortho Consult Reading Room CT, CHEST, WITHOUT IV [id number] 19:30:00FINAL REPORT TECHNIQUE: CT of the chest, abdomen, and pelvis WITHOUT intravenous contrast and WITHOUT oral contrast. Dose modulation, iterative reconstruction, and/or weight-based adjustment of the mA/kV was utilized to reduce the radiation dose to as low as reasonably achievable. INDICATION: clear cell renal cell carcinoma. COMPARISON: CT of the chest, abdomen, and pelvis from 06/15/2019. FINDINGS: ABSENCE OF INTRAVENOUS CONTRAST DECREASES SENSITIVITY FOR DETECTION OF FOCAL LESIONS AND VASCULAR PATHOLOGY. LINES/TUBES: A right IJ port has its tip in the lower SVC. LUNGS AND AIRWAYS: The previously seen medial right lower lobe pulmonary nodule now faint groundglass opacity which measures 0.4 cm on axial image 88. The previous is seen right middle lobe interstitial and groundglass opacity has nearly. Groundglass interstitial opacity of the lingula and lateral left lower lobeis new. A right middle lobe pulmonary nodule measures 0.2 cm on axial image 72 and is unchanged. Calcified granulomas measure 0.3 cm. PLEURA: The pleural spaces are clear.HEART AND MEDIASTINUM: The visu alized thyroid gland is normal. No significant mediastinal, hilar, or axillary lymphadenopathy. The heart and pericardium are within normal limits. Marked coronary arterial calcification. Marked calcification of the descending thoracic aorta. HEPATOBILIARY: A calcified granuloma in segment II measures0.4 cm. Gallbladder is unremarkable. No biliary ductal dilatation.SPLEEN: No splenomegaly.PANCREAS: No focal masses or ductal dilatation. ADRENALS: No adrenal nodules.KIDNEYS/URETERS: Prior left nephrectomy. No right hydronephrosis or exophytic masses. A right lower pole nonobstructing renal stone measures 0.4 cm.PELVIC ORGANS/BLADDER: The prostate is enlarged. Small, indirect right inguinal hernia. PERITONEUM/RETROPERITONEUM: No free air or fluid.LYMPH NODES: No lymphadenopathy.VESSELS: Intrarenal abdominal aortic aneurysm measures 3.6 cm in diameter, previously 3.5 cm. Marked aortoiliac calcification. GI TRACT: No distention or wall thickening. The appendix is normal. BONES AND SOFT TISSUES: There has been a prior right iliac bone reconstruction with an unchanged appearance compared to 06/15/2019. The bones are diffusely demineralized. IMPRESSION: 1.No recurrent or metastatic disease in the chest, abdomen, or pelvis. 2.The interstitial and groundglass opacity in the lateral left lower lobe and lingula is most likely due to infection. A drug reaction is possible but considered less likely. 3.The previously seen medial right lower lobe pulmonary nodule is now a faint groundglass opacity and was likely infectious. The previously seen right middle lobe interstitial and groundglass opacity has r esolved and was likely also infectious. 4.An abdominal aortic aneurysm measures 3.6 cm in diameter, previously 3.5 cm. A follow-up examination is recommended every 2 years. 5.A right lower pole nonobstructing renal stone measures 0.4 cm. Signed: Maria Elena Borrero MDReport Verified Date/Time: 10/16/2019 19:30:12 Reading Location: [address] Ortho Consult Reading Room CT, [id number] 16:30:00FINAL REPORT CT of the chest, abdomen and pelvis, with contrast Clinical History: clear cell renal cell carcinoma left Technique: CT of the chest, abdomen and pelvis is performed with intravenous contrast administration. This exam was performed according to our departmental dose optimization program which includes automated exposure control, adjustment of the mA and/or kV according to patient's size and/or use of iterative reconstructive technique. Comparison Film: March 06, 2019 and September 18, 2018 Discussion: No supraclavicular, or axillary lymphadenopathy. There is a right- sided Port-A-Cath. A few nonspecific mediastinal lymph nodes are without interval change. Heart and pericardium are unremarkable. In the right middle lobe, there is a somewhat linear, irregularly-shaped small opacity in the middle lobe. In the medial right lower lobe, there is a new 4 mm nodule. No consolidation, or pleural effusion. Central airways are patent, no bronchiectasis, or bronchial wallthickening. No liver lesion is identified. There is no biliary ductal dilatation, and the gallbladder is unremarkable. The spleen, pancreas, adrenal glands are unremarkable. Status post left nephrectomy. There is no surgical bed recurrent mass. Right kidney demonstrates no mass, or hydronephrosis. There is a 3 mm nonobstructive stone. No evidence of bowel obstruction, or abnormal bowel wall thickening. Normal appendix. In the pelvis, bladder is unremarkable. Prostate gland is enlarged. There is advanced atherosclerotic calcification. In the infrarenal abdominal aorta, there is a 3.5 cm aneurysm. Nolymphadenopathy or ascites. Status post surgical fixation of the right iliac crest along with placement of cement material. No recurrent mass is identified allowing for hardware artifact in this region. Osseous structures demonstrate degenerative changes. No new bony lesion is identified. Impression: Status post left nephrectomy. No new disease identified in the abdomen or pelvis. A 4 mm nodule in the right lower lobe is new, and there is also a small ill-defined opacity in the right middle lobe. Both are amenable to follow-up. An abdominal aortic aneurysm measures 3.5 cm in diameter. A follow-up examination is recommended every 2 years. Nonocclusive stone in the right kidney. Enlarged prostate gland. Signed: Karan Fregoso Verified Date/Time: 06/15/2019 16:30:24 Reading Location: [address] Consult Reading Room CT, CHEST, WITH IV [id number] 16:30:00FINAL REPORT CT of the chest, abdomen and pelvis, with contrast Clinical History: clear cell renal cell carcinoma left Technique: CT of the chest, abdomen and pelvis is performed with intravenous contrast administration. This exam was performed according to our departmental dose optimization program which includes automated exposure control, adjustment of the mA and/or kV according to patient's size and/or use of iterative reconstructive technique. Comparison Film: March 06, 2019 and September 18, 2018 Discussion: No supraclavicular, or axillary lymphadenopathy. There is a right-sided Port-A-Cath. A few nonspecific mediastinal lymph nodes are without interval change. Heart and pericardium are unremarkable. In the right middle lobe, there is a somewhat linear, irregularly-shaped small opacity in the middle lobe. In the medial right lower lobe, there is a new 4 mm nodule. No consolidation, or pleural effusion. Central airways are patent, no bronchiectasis, or bronchial wallthickening. No liver lesion is identified. There is no biliary ductal dilatation, and the gallbladder is unremarkable. The spleen, pancreas, adrenal glands are unremarkable. Status post left nephrectomy. There is no surgical bed recurrent mass. Right kidney demonstrates no mass, or hydronephrosis. There is a 3 mm nonobstructive stone. No evidence of bowel obstruction, or abnormal bowel wall thickening. Normal appendix. In the pelvis, bladder is unremarkable. Prostate gland is enlarged. There is advanced atherosclerotic calcification. In the infrarenal abdominal aorta, there is a 3.5 cm aneurysm. Nolymphadenopathy or ascites. Status post surgical fixation of the right iliac crest along with placement of cement material. No recurrent mass is identified allowing for hardware artifact in this region. Osseous structures demonstrate degenerative changes. No new bony lesion is identified. Impression: Status post left nephrectomy. No new disease identified in the abdomen or pelvis. A 4 mm nodule in the right lower lobe is new, and there is also a small ill-defined opacity in the right middle lobe. Both are amenable to follow-up. An abdominal aortic aneurysm measures 3.5 cm in diameter. A follow-up examination is recommended every 2 years. Nonocclusive stone in the right kidney. Enlarged prostate gland. 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 This exam was performed according to our departmental dose optimization program which includes automatedexposure control, adjustment of the mA and/or kV according to patient's size and/or use of iterativereconstructive technique. Comparison Film: March 06, 2019 and September 18, 2018 Discussion: No supraclavicular, or axillary lymphadenopathy. There is a right-sided Port-A-Cath. A few nonspecific mediastinal lymph nodes are without interval change. Heart and pericardium are unremarkable. In the right middle lobe, there is a somewhat linear, irregularly-shaped small opacity in the middle lobe. In the medial right lower lobe, there is a new 4 mm nodule. No consolidation, or pleural effusion. Central airways are patent, no bronchiectasis, or bronchial wall thickening. No liver lesion is identified. Thereis no biliary ductal dilatation, and the gallbladder is unremarkable. The spleen, pancreas, adrenal g lands are unremarkable. Status post left nephrectomy. There is no surgical bed recurrent mass. Rightkidney demonstrates no mass, or hydronephrosis. There is a 3 mm nonobstructive stone. No evidence ofbowel obstruction, or abnormal bowel wall thickening. Normal appendix. In the pelvis, bladder is unremarkable. Prostate gland is enlarged. There is advanced atherosclerotic calcification. In the infrarenal abdominal aorta, there is a 3.5 cm aneurysm. No lymphadenopathy or ascites. Status post surgicalfixation of the right iliac crest along with placement of cement material. No recurrent mass is identified allowing for hardware artifact in this region. Osseous structures demonstrate degenerative changes. No new bony lesion is identified. Impression: Status post left nephrectomy. No new disease identified in the abdomen or pelvis. A 4 mm nodule in the right lower lobe is new, and there is also a small ill-defined opacity in the right middle lobe. Both are amenable to follow-up. An abdominal aortic aneurysm measures 3.5 cm in diameter. A follow-up examination is recommended every 2 years. Nonocclusive stone in the right kidney. Enlarged prostate gland. 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 This exam was performed according to our departmental dose optimization program which includes automatedexposure control, adjustment of the mA and/or kV according to patient's size and/or use of iterativereconstructive technique. Comparison Film: March 06, 2019 and September 18, 2018 Discussion: No supraclavicular, or axillary lymphadenopathy. There is a right-sided Port-A-Cath. A few nonspecific mediastinal lymph nodes are without interval change. Heart and pericardium are unremarkable. In the right middle lobe, there is a somewhat linear, irregularly-shaped small opacity in the middle lobe. In the medial right lower lobe, there is a new 4 mm nodule. No consolidation, or pleural effusion. Central airways are patent, no bronchiectasis, or bronchial wall thickening. No liver lesion is identified. Thereis no biliary ductal dilatation, and the gallbladder is unremarkable. The spleen, pancreas, adrenal glands are unremarkable. Status post left nephrectomy. There is no surgical bed recurrent mass. Rightkidney demonstrates no mass, or hydronephrosis. There is a 3 mm nonobstructive stone. No evidence ofbowel obstruction, or abnormal bowel wall thickening. Normal appendix. In the pelvis, bladder is unremarkable. Prostate gland is enlarged. There is advanced atherosclerotic calcification. In the infrarenal abdominal aorta, there is a 3.5 cm aneurysm. No lymphadenopathy or ascites. Status post surgicalfixation of the right iliac crest along with placement of cement material. No recurrent mass is identified allowing for hardware artifact in this region. Osseous structures demonstrate degenerative changes. No new bony lesion is identified. Impression: Status post left nephrectomy. No new disease identified in the abdomen or pelvis. A 4 mm nodule in the right lower lobe is new, and there is also a small ill-defined opacity in the right middle lobe. Both are amenable to follow-up. An abdominal aorticaneurysm measures 3.5 cm in diameter. A follow-up examination is recommended every 2 years. Nonocclusive stone in the right kidney. Enlarged prostate gland. Signed: Karan Fregosoort Verified Date/Time: 06/15/2019 16:30:24 Reading Location: [facility] [address] [place] [address] Consult Reading Room [facility]-[id number] 14:21:00 Test Item Value Reference Range Interpretation Comments POC-Creatinine (test code 1.5 mg/dL 0.6-1.3 H TE STED AT [facility] = 1859) [address] [facility] 7 7030 POC-EGFR (test code = 46 mL/min/1.73M2 1860) Lab Interpretation (test Abnormal code = 22355-8) [facility]-[id number] 14:21:00 Test Item Value Reference Range Interpretation Comments POC-CREATININE 1.5 mg/dL 0.6-1.3 H TESTED AT [facility] 7200 (BEAKER) (test [place] BLD G A code = 1859) [facility] 7703 0 POC-EGFR 46 mL/min/1.73M2 (BEAKER) (test code = 1860) RAD, HIPS, BILATERAL TO INCLUDE [id number] 13:33:00Bilateral hip pain x monthsReason for Exam:->hip pain bilateralFINAL REPORT Radiographs of the hips and pelvis HISTORY: PainCOMPARISON: August 13, 2018. FINDINGS:Bones:No acute displaced fracture. Osseous alignment is within normal limits. Joints:Scattered degenerative change. No osseous erosion. Chronic appearing deformity of the superior-lateral right iliac bone. Surgical screws through the right iliac bone are intact. Soft tissues:The soft tissues appear unremarkable. IMPRESSION: Scattered degenerative change. No osseous erosion. Chronic appearing deformity of the superior-lateral right iliac bone. Surgical screws through the right iliac bone are intact. Signed: Tamara Tesfaye MDReport Verified Date/Time: 03/19/2019 13:33:29 Reading Location: [facility] Reading Room [address] [place] [address] XR bilateral hips to include [id number] 13:33:00Interface, External Ris In - 03/19/2019 1:35 PM CSTFINAL REPORT Radiographs of the hips and pelvis HISTORY: PainCOMPARISON: August 13, 2018. FINDINGS:Bones:No acute displaced fracture. Osseous alignment is within normal limits. Joints:Scattered degenerative change. No osseous erosion. Chronic appearing deformity of the superior-lateral right iliac bone. Surgical screws through the right iliac bone are intact. Soft tissues:The soft tissues appear unremarkable. IMPRESSION: Scattered degenerative change. No osseous erosion. Chronic appearing deformity of the superior-lateral right iliac bone. Surgical screws through the right iliac bone are intact. Signed: Tamara Tesfaye MDReport Verified Date/Time: 03/19/2019 13:33:29 Reading Location: [facility] Reading Room [address] [place] [address] [facility] [id number] 11:49:00FINAL REPORT CT scan of the chest, abdomen and pelvis. MEDICAL HISTORY: [place] renal cell carcinoma. COMPARISON STUDY: September 18, 2018. TECHNIQUE: Contiguous helical slices wereacquired through the chest, abdomen and pelvis post administration of intravenous contrast. No oral contrast was administered. This exam was performed according to our department dose optimization program which includes automated exposure control, adjustment of the mA and/or kV according to the patient's size and/or use of iterative reconstruction technique. FINDINGS: A right-sided Port-A-Cath is in place. Atherosclerosis is identified. There are no suspicious masses or adenopathy small lymph nodes are seen which are stable from previous. No pleural effusion is seen. The tracheobronchial tree is clear with no endobronchial lesions. The pulmonary parenchyma demonstrates scattered tiny granulomas. There is a stable 3 mm nodule in the right upper lobe on image 254. A 3 mm nodule in the right middle lobe abutting the oblique fissure on image 25 is smaller than on previous and likely a fissural lymphnode. Atelectatic changes are seen. Some subpleural fibrosis is seen in the lung bases. The liver, spleen, pancreas and adrenal glands are unremarkable. The left kidney has been resected. No residual soft tissue seen in the nephrectomy bed. The right kidney demonstrates a 5 mm nonocclusive calculus inthe lower pole. There are no dilated loops of bowel seen to suggest obstruction. The appendix is notwell seen but no obvious signs of appendicitis are seen. No free fluid or free air is seen. Small subcentimeter abdominal and pelvic lymph nodes are seen with no definite pathologic adenopathy seen. There continues to be a small infrarenal abdominal aortic aneurysm measuring up to 3.5 cm. Atherosclerosis is identified. The prostate gland is enlarged measuring 6.8 x 5.8 cm in maximal transverse diameter. Some bladder wall thickening is noted. Bilateral fat-containing inguinal hernias are seen measuring up to 2.9 cm on the right side. Bone windows demonstrate degenerative changes. Extensive postsurgical changes are seen in the right iliac bone with bone cement identified. There is some persistent soft tissue tissue measuring up to 3.0 x 3.0 cm anterior to the cement material, smaller than on previous at which time it measured 5.5 x 4.6 cm. Impression:1. Status post left nephrectomy with significant improvement in previously seen postsurgical fluid.2. Nonocclusive right renal calculus.3. Enlarged prostate gland with some bladder wall thickening.4. Post surgical changes in the right iliac bone with cement material identified. Some persistent soft tissue is seen, less pronounced than on previous. This could represent postsurgical change although some residual disease would be difficult to exclude.5. An abdominal aortic aneurysm measures 3.5 cm in diameter. A follow-up examination is recommendedevery 2 years.6. Stable tiny scattered tiny pulmonary nodules. Signed: Farooq Higuera MDReport Verified Date/Time: 03/06/2019 11:49:07 Reading Location: [address] Consult Reading Room CT, CHEST, WITH IV [id number] 11:49:00FINAL REPORT CT scan of the chest, abdomen and pelvis. MEDICAL HISTORY: [place]ell renal cell carcinoma. COMPARISON STUDY: September 18, 2018. TECHNIQUE: Contiguous helical slices wereacquired through the chest, abdomen and pelvis post administration of intravenous contrast. No oral contrast was administered. This exam was performed according to our department dose optimization program which includes automated exposure control, adjustment of the mA and/or kV according to the patient's size and/or use of iterative reconstruction technique. FINDINGS: A right-sided Port-A-Cath is in place. Atherosclerosis is identified. There are no suspicious masses or adenopathy small lymph nodes are seen which are stable from previous. No pleural effusion is seen. The tracheobronchial tree is clear with no endobronchial lesions. The pulmonary parenchyma demonstrates scattered tiny granulomas. There is a stable 3 mm nodule in the right upper lobe on image 254. A 3 mm nodule in the right middle lobe abutting the oblique fissure on image 25 is smaller than on previous and likely a fissural lymphnode. Atelectatic changes are seen. Some subpleural fibrosis is seen in the lung bases. The liver, spleen, pancreas and adrenal glands are unremarkable. The left kidney has been resected. No residual soft tissue seen in the nephrectomy bed. The right kidney demonstrates a 5 mm nonocclusive calculus inthe lower pole. There are no dilated loops of bowel seen to suggest obstruction. The appendix is notwell seen but no obvious signs of appendicitis are seen. No free fluid or free air is seen. Small subcentimeter abdominal and pelvic lymph nodes are seen with no definite pathologic adenopathy seen. There continues to be a small infrarenal abdominal aortic aneurysm measuring up to 3.5 cm. Atherosclerosis is identified. The prostate gland is enlarged measuring 6.8 x 5.8 cm in maximal transverse diameter. Some bladder wall thickening is noted. Bilateral fat-containing inguinal hernias are seen measuring up to 2.9 cm on the right side. Bone windows demonstrate degenerative changes. Extensive postsurgical changes are seen in the right iliac bone with bone cement identified. There is some persistent soft tissue tissue measuring up to 3.0 x 3.0 cm anterior to the cement material, smaller than on previous at which time it measured 5.5 x 4.6 cm. Impression:1. Status post left nephrectomy with significant improvement in previously seen postsurgical fluid.2. Nonocclusive right renal calculus.3. Enlarged prostate gland with some bladder wall thickening.4. Post surgical changes in the right iliac bone with cement material identified. Some persistent soft tissue is seen, less pronounced than on previous. This could represent postsurgical change although some residual disease would be difficult to exclude.5. An abdominal aortic aneurysm measures 3.5 cm in diameter. A follow-up examination is recommendedevery 2 years.6. Stable tiny scattered tiny pulmonary nodules. Signed: Faroqo Higuera MDReport Verified Date/Time: 03/06/2019 11:49:07 Reading Location: [facility] [address] [place] [address] Consult Reading Room [id number] 10:50:00 Test Item Value Reference Range Interpretation Comments POC-CREATININE 1.3 mg/dL 0.6-1.3 TESTED AT [facility] 7200 ([facility]) (test DESIREE BLD G A code = 1859) [facility] 7703 0 POC-EGFR 54 mL/min/1.73M2 ([facility]) (test code = 1860) ANG, CV ACCESS, [id number] 08:46:00Reason for Exam:->Clear cell renal cell carcinoma leftFINAL REPORT HISTORY: Renal cell carcinoma PROCEDURE: Following [...] created just beneath the incision. The samson catheterwas tunneled from the pocket to the jugular [...] There were no immediate complications. Patient was dischargedfrom the department in stable condition. FINDINGS: Spot film of the chest following portacatheter placement demonstrates the portacatheter to lie in expected position with its tip over the caval atrialjunction. There is no pneumothorax. Ultrasound image obtained prior to port placement demonstrates apatent and compressible right internal jugular vein without evidence for thrombosis. Ultrasound image of the right internal jugular vein was obtained and archived on PACs. IMPRESSION: 1. Successful unc omplicated placement of a right internal jugular chest port. Fluoroscopy time: 1.7 minutesEstimateddose in (Ka,r): 18.1 mGy Signed: Cornelia Robison MDReport Verified Date/Time: 10/01/2018 08:46:35 Reading Location: [facility] P048 Angio Body Reading Room PROTHROMBIN TIME/[id number] 11:13:00 Test Item Value Reference Range Interpretation Comments PROTIME (BEAKER) (test code = 13.1 seconds 11.9-14.2 759) INR (BEAKER) (test code = 370) 1.0 <=5.9 Effective 09/24/2018: PT Reference Range ChangeNew: 11.9-14.2 Previous: 11.7- 14.7RECOMMENDED COUMADIN/WARFARIN INR THERAPY RANGESSTANDARD DOSE: 2.0-3.0 Includes: PROPHYLAXIS for venous thrombosis, systemic embolization; TREATMENT for venous thrombosis and/or pulmonary embolus.HIGH RISK: Target INR is2.5-3.5 for patients wiht mechanical heart valves.CBC W/PLT COUNT & AUTO [id number] 11:03:00 Test Item Value Reference Range Interpretation Comments WHITE BLOOD CELL COUNT (BEAKER) 5.3 K/ L 3.5-10.5 (test code = 775) RED BLOOD CELL COUNT (BEAKER) 3.96 M/ L 4.63-6.08 L (test code = 761) HEMOGLOBIN (BEAKER) (test code = 11.3 GM/DL 13.7-17.5 L 410) HEMATOCRIT (BEAKER) (test code = 36.6 % 40.1-51.0 L 411) MEAN CORPUSCULAR VOLUME (BEAKER) 92.4 fL 79.0-92.2 H (test code = 753) MEAN CORPUSCULAR HEMOGLOBIN 28.5 pg 25.7-32.2 (BEAKER) (test code = 751) MEAN CORPUSCULAR HEMOGLOBIN CONC 30.9 GM/DL 32.3-36.5 L (BEAKER) (test code = 752) RED CELL DISTRIBUTION WIDTH 15.5 % 11.6-14.4 H (BEAKER) (test code = 412) PLATELET COUNT (BEAKER) (test 160 K/CU MM 150-450 code = 756) MEAN PLATELET VOLUME (BEAKER) 9.2 fL 9.4-12.4 L (test code = 754) NUCLEATED RED BLOOD CELLS 0 /100 WBC 0-0 (BEAKER) (test code = 413) NEUTROPHILS RELATIVE PERCENT 51 % (BEAKER) (test code = 429) LYMPHOCYTES RELATIVE PERCENT 38 % (BEAKER) (test code = 430) MONOCYTES RELATIVE PERCENT 7 % (BEAKER) (test code = 431) EOSINOPHILS RELATIVE PERCENT 3 % (BEAKER) (test code = 432) BASOPHILS RELATIVE PERCENT 1 % (BEAKER) (test code = 437) NEUTROPHILS ABSOLUTE COUNT 2.74 K/ L 1.78-5.38 (BEAKER) (test code = 670) LYMPHOCYTES ABSOLUTE COUNT 2.03 K/ L 1.32-3.57 (BEAKER) (test code = 414) MONOCYTES ABSOLUTE COUNT (BEAKER) 0.37 K/ L 0.30-0.82 (test code = 415) EOSINOPHILS ABSOLUTE COUNT 0.14 K/ L 0.04-0.54 (BEAKER) (test code = 416) BASOPHILS ABSOLUTE COUNT (BEAKER) 0.03 K/ L 0.01-0.08 (test code = 417) IMMATURE GRANULOCYTES-RELATIVE 0 % 0-1 PERCENT (BEAKER) (test code = 2801) CT, PELVIS, WITH IV [id number] 14:29:00FINAL REPORT EXAM: CT Chest, Abdomen and [...] significantly changed 0.6 cm portacaval lymph node (). A few additional subcentimeter nonspecific retroperitoneal lymph [...] 55 series 4) SOFT TISSUES: Unremarkable. IMPRESSION: 1.Redemon stration of bilateral lung nodules and calcified granulomas. [...] prior CT dated 07/24/2018. Attention on follow-up examination.4.Status post screw fixation and hyperintense material insertion in the metastatic right iliac lesion with soft tissue component. Persistent enhancing soft tissue component is visualized.5.Again seen markedly enlarged prostate gland.6.Not significantly changed foci of infrarenal abdominal aortic aneurysm. Signed: Elías Monahanort Verified Date/Time: 09/19/2018 14:29:11 Reading Location: [facility] Reading Room [address] [place] [address] CT, CHEST, WITH IV [id number] 14:29:00FINAL REPORT EXAM: CT Chest, Abdomen and Pelvis WITH contrast INDICATION: clear cell renal cell carcinoma left COMPARISON: CT dated 07/24/2018TECHNIQUE: Chest, abdomen and pe lvis were scanned utilizing a multidetector helical scanner [...] to prior CT. Recommend attention on follow-up examination.2.Postsurgic al changes of left nephrectomy. There is small amount of fluid in the surgical bed which is inseparable from left adrenal gland.3.Subcentimeter right iliac chain lymph nodes, of which one has mildly increased in size when compared to prior CT dated 07/24/2018. Attention on follow-up examination.4.Status post screw fixation and hyperintense material insertion in the metastatic right iliac lesion with soft tissue component. Persistent enhancing soft tissue component is visualized.5.Again seen markedly enlarged prostate gland.6.Not significantly changed foci of infrarenal abdominal aortic aneurysm. Signed: Elías Monahan MDReport Verified Date/Time: 09/19/2018 14:29:11 Reading Location: [facility] Reading Room [address] [place] [address] CT, ABDOMEN, WITH IV [id number] 14:29:00Reason for Exam:->clear cell renal cell carcinomaFINAL [...] to prior CT. Recommend attention on follow-up examination.2.Postsurgic al changes of left nephrectomy. There is small amount of fluid in the surgical bed which is inseparable from left adrenal gland.3.Subcentimeter right iliac chain lymph nodes, of which one has mildly increased in size when compared to prior CT dated 07/24/2018. Attention on follow-up examination.4.Status post screw fixation and hyperintense material insertion in the metastatic right iliac lesion with soft tissue component. Persistent enhancing soft tissue component is visualized.5.Again seen markedly enlarged prostate gland.6.Not significantly changed foci of infrarenal abdominal aortic aneurysm. Signed: Elías Monahan Verified Date/Time: 09/19/2018 14:29:11 Reading Location: [facility] Room [address] [place] [address] [id number] 14:19:00 Test Item Value Reference Range Interpretation Comments POC-CREATININE 1.4 mg/dL 0.6-1.3 H TESTED AT [facility] 7200 (BEAKER) (test DESIREE BLD G A code = 1859) [facility] 7703 0 POC-EGFR 50 mL/min/1.73M2 (BEAKER) (test code = 1860) TISSUE [id number] 15:12:00Surgical Pathology Report Case: [id number] Authorizing Provider: Donald Mcdaniels MD Collected: 08/21/2018 1902 Ordering Location: [facility] PERIOPERATIVE Received: 08/22/2018 0800 SERVICES Pathologist: [...] OF ADRENAL GLAND, NEGATIVE FOR TUMOR.AJCC CLASSIFICATION [id number]. SEE SYNOPTIC REPORT. Signing [employer] Phone Line: [phone] signed by El Busby MD on 08/25/2018 [...] (pT): pT1b Regional Lymph Nodes (pN): pN0 [id number] mass Leftkidney The specimen is received in a formalin-filled [...] kidney parenchyma superior pole. CG/ew PERFORMED.BASIC METABOLIC [id number] 06:41:00 Test Item Value Reference Range Interpretation Comments SODIUM (BEAKER) 141 meq/L 136-145 (test code = 381) POTASSIUM (BEAKER) 4.5 meq/L 3.5-5.1 (test code = 379) CHLORIDE (BEAKER) 107 meq/L 98-107 (test code = 382) CO2 (BEAKER) (test 27 meq/L 22-29 code = 355) BLOOD UREA NITROGEN 20 mg/dL 7-21 (BEAKER) (test code = 354) CREATININE (BEAKER) 1.34 mg/dL 0.57-1.25 H (test code = 358) GLUCOSE RANDOM 104 mg/dL 70-105 (BEAKER) (test code = 652) CALCIUM (BEAKER) 9.2 mg/dL 8.4-10.2 (test code = 697) EGFR (BEAKER) (test 53 mL/min/1.73 ESTIMA ARIS GFR IS code = 1092) sq m NOT ACCURATE CREATININE CLEARANCE IN PREDICTING GLOMERULAR FILTRATION RATE . ESTIMATED GFR I S NOT APPLICABLE FOR DIALYSIS PATIEN TS. CBC W/PLT COUNT & AUTO [id number] 06:14:00 Test Item Value Reference Range Interpretation Comments WHITE BLOOD CELL COUNT (BEAKER) 4.4 K/ L 3.5-10.5 (test code = 775) RED BLOOD CELL COUNT (BEAKER) 3.00 M/ L 4.63-6.08 L (test code = 761) HEMOGLOBIN (BEAKER) (test code = 8.4 GM/DL 13.7-17.5 L 410) HEMATOCRIT (BEAKER) (test code = 26.7 % 40.1-51.0 L 411) MEAN CORPUSCULAR VOLUME (BEAKER) 89.0 fL 79.0-92.2 (test code = 753) MEAN CORPUSCULAR HEMOGLOBIN 28.0 pg 25.7-32.2 (BEAKER) (test code = 751) MEAN CORPUSCULAR HEMOGLOBIN CONC 31.5 GM/DL 32.3-36.5 L (BEAKER) (test code = 752) RED CELL DISTRIBUTION WIDTH 14.0 % 11.6-14.4 (BEAKER) (test code = 412) PLATELET COUNT (BEAKER) (test 199 K/CU MM 150-450 code = 756) MEAN PLATELET VOLUME (BEAKER) 9.0 fL 9.4-12.4 L (test code = 754) NUCLEATED RED BLOOD CELLS 0 /100 WBC 0-0 (BEAKER) (test code = 413) NEUTROPHILS RELATIVE PERCENT 49 % (BEAKER) (test code = 429) LYMPHOCYTES RELATIVE PERCENT 41 % (BEAKER) (test code = 430) MONOCYTES RELATIVE PERCENT 8 % (BEAKER) (test code = 431) EOSINOPHILS RELATIVE PERCENT 2 % (BEAKER) (test code = 432) BASOPHILS RELATIVE PERCENT 0 % (BEAKER) (test code = 437) NEUTROPHILS ABSOLUTE COUNT 2.18 K/ L 1.78-5.38 (BEAKER) (test code = 670) LYMPHOCYTES ABSOLUTE COUNT 1.82 K/ L 1.32-3.57 (BEAKER) (test code = 414) MONOCYTES ABSOLUTE COUNT (BEAKER) 0.34 K/ L 0.30-0.82 (test code = 415) EOSINOPHILS ABSOLUTE COUNT 0.08 K/ L 0.04-0.54 (BEAKER) (test code = 416) BASOPHILS ABSOLUTE COUNT (BEAKER) 0.01 K/ L 0.01-0.08 (test code = 417) IMMATURE GRANULOCYTES-RELATIVE 0 % 0-1 PERCENT (BEAKER) (test code = 2801) BASIC METABOLIC [id number] 07:30:00 Test Item Value Reference Range Interpretation Comments SODIUM (BEAKER) 137 meq/L 136-145 (test code = 381) POTASSIUM (BEAKER) 3.8 meq/L 3.5-5.1 (test code = 379) CHLORIDE (BEAKER) 105 meq/L 98-107 (test code = 382) CO2 (BEAKER) (test 23 meq/L 22-29 code = 355) BLOOD UREA NITROGEN 18 mg/dL 7-21 (BEAKER) (test code = 354) CREATININE (BEAKER) 1.16 mg/dL 0.57-1.25 (test code = 358) GLUCOSE RANDOM 105 mg/dL 70-105 (BEAKER) (test code = 652) CALCIUM (BEAKER) 8.8 mg/dL 8.4-10.2 (test code = 697) EGFR (BEAKER) (test 62 mL/min/1.73 ESTIMA ARIS GFR IS code = 1092) sq m NOT ACCURATE CREATININE CLEARANCE IN PREDICTING GLOMERULAR FILTRATION RATE . ESTIMATED GFR I S NOT APPLICABLE FOR DIALYSIS PATIEN TS. CBC W/PLT COUNT & AUTO [id number] 07:16:00 Test Item Value Reference Range Interpretation Comments WHITE BLOOD CELL COUNT (BEAKER) 4.0 K/ L 3.5-10.5 (test code = 775) RED BLOOD CELL COUNT (BEAKER) 2.96 M/ L 4.63-6.08 L (test code = 761) HEMOGLOBIN (BEAKER) (test code = 8.3 GM/DL 13.7-17.5 L 410) HEMATOCRIT (BEAKER) (test code = 26.5 % 40.1-51.0 L 411) MEAN CORPUSCULAR VOLUME (BEAKER) 89.5 fL 79.0-92.2 (test code = 753) MEAN CORPUSCULAR HEMOGLOBIN 28.0 pg 25.7-32.2 (BEAKER) (test code = 751) MEAN CORPUSCULAR HEMOGLOBIN CONC 31.3 GM/DL 32.3-36.5 L (BEAKER) (test code = 752) RED CELL DISTRIBUTION WIDTH 13.8 % 11.6-14.4 (BEAKER) (test code = 412) PLATELET COUNT (BEAKER) (test 190 K/CU MM 150-450 code = 756) MEAN PLATELET VOLUME (BEAKER) 9.5 fL 9.4-12.4 (test code = 754) NUCLEATED RED BLOOD CELLS 0 /100 WBC 0-0 (BEAKER) (test code = 413) NEUTROPHILS RELATIVE PERCENT 56 % (BEAKER) (test code = 429) LYMPHOCYTES RELATIVE PERCENT 33 % (BEAKER) (test code = 430) MONOCYTES RELATIVE PERCENT 8 % (BEAKER) (test code = 431) EOSINOPHILS RELATIVE PERCENT 2 % (BEAKER) (test code = 432) BASOPHILS RELATIVE PERCENT 1 % (BEAKER) (test code = 437) NEUTROPHILS ABSOLUTE COUNT 2.23 K/ L 1.78-5.38 (BEAKER) (test code = 670) LYMPHOCYTES ABSOLUTE COUNT 1.34 K/ L 1.32-3.57 (BEAKER) (test code = 414) MONOCYTES ABSOLUTE COUNT (BEAKER) 0.32 K/ L 0.30-0.82 (test code = 415) EOSINOPHILS ABSOLUTE COUNT 0.09 K/ L 0.04-0.54 (BEAKER) (test code = 416) BASOPHILS ABSOLUTE COUNT (BEAKER) 0.02 K/ L 0.01-0.08 (test code = 417) IMMATURE GRANULOCYTES-RELATIVE 1 % 0-1 PERCENT (BEAKER) (test code = 2801) BASIC METABOLIC [id number] 06:32:00 Test Item Value Reference Range Interpretation Comments SODIUM (BEAKER) 139 meq/L 136-145 (test code = 381) POTASSIUM (BEAKER) 4.1 meq/L 3.5-5.1 (test code = 379) CHLORIDE (BEAKER) 106 meq/L 98-107 (test code = 382) CO2 (BEAKER) (test 26 meq/L 22-29 code = 355) BLOOD UREA NITROGEN 23 mg/dL 7-21 H (BEAKER) (test code = 354) CREATININE (BEAKER) 1.31 mg/dL 0.57-1.25 H (test code = 358) GLUCOSE RANDOM 124 mg/dL 70-105 H (BEAKER) (test code = 652) CALCIUM (BEAKER) 8.8 mg/dL 8.4-10.2 (test code = 697) EGFR (BEAKER) (test 54 mL/min/1.73 ESTIMA ARIS GFR IS code = 1092) sq m NOT ACCURATE CREATININE CLEARANCE IN PREDICTING GLOMERULAR FILTRATION RATE . ESTIMATED GFR I S NOT APPLICABLE FOR DIALYSIS PATIEN TS. CBC W/PLT COUNT & AUTO [id number] 05:57:00 Test Item Value Reference Range Interpretation Comments WHITE BLOOD CELL COUNT (BEAKER) 4.1 K/ L 3.5-10.5 (test code = 775) RED BLOOD CELL COUNT (BEAKER) 2.94 M/ L 4.63-6.08 L (test code = 761) HEMOGLOBIN (BEAKER) (test code = 8.2 GM/DL 13.7-17.5 L 410) HEMATOCRIT (BEAKER) (test code = 26.4 % 40.1-51.0 L 411) MEAN CORPUSCULAR VOLUME (BEAKER) 89.8 fL 79.0-92.2 (test code = 753) MEAN CORPUSCULAR HEMOGLOBIN 27.9 pg 25.7-32.2 (BEAKER) (test code = 751) MEAN CORPUSCULAR HEMOGLOBIN CONC 31.1 GM/DL 32.3-36.5 L (BEAKER) (test code = 752) RED CELL DISTRIBUTION WIDTH 14.0 % 11.6-14.4 (BEAKER) (test code = 412) PLATELET COUNT (BEAKER) (test 181 K/CU MM 150-450 code = 756) MEAN PLATELET VOLUME (BEAKER) 9.7 fL 9.4-12.4 (test code = 754) NUCLEATED RED BLOOD CELLS 0 /100 WBC 0-0 (BEAKER) (test code = 413) NEUTROPHILS RELATIVE PERCENT 61 % (BEAKER) (test code = 429) LYMPHOCYTES RELATIVE PERCENT 29 % (BEAKER) (test code = 430) MONOCYTES RELATIVE PERCENT 9 % (BEAKER) (test code = 431) EOSINOPHILS RELATIVE PERCENT 2 % (BEAKER) (test code = 432) BASOPHILS RELATIVE PERCENT 0 % (BEAKER) (test code = 437) NEUTROPHILS ABSOLUTE COUNT 2.48 K/ L 1.78-5.38 (BEAKER) (test code = 670) LYMPHOCYTES ABSOLUTE COUNT 1.18 K/ L 1.32-3.57 L (BEAKER) (test code = 414) MONOCYTES ABSOLUTE COUNT (BEAKER) 0.35 K/ L 0.30-0.82 (test code = 415) EOSINOPHILS ABSOLUTE COUNT 0.07 K/ L 0.04-0.54 (BEAKER) (test code = 416) BASOPHILS ABSOLUTE COUNT (BEAKER) 0.01 K/ L 0.01-0.08 (test code = 417) IMMATURE GRANULOCYTES-RELATIVE 0 % 0-1 PERCENT (BEAKER) (test code = 2801) POCT-GLUCOSE [id number] 12:04:00 Test Item Value Reference Range Interpretation Comments POC-GLUCOSE METER 110 mg/dL 70-110 TESTED AT [facility] 6720 ([facility]) (test code = [facility] 1538) [address] POCT-GLUCOSE [id number] 09:07:00 Test Item Value Reference Range Interpretation Comments POC-GLUCOSE METER 104 mg/dL 70-110 TESTED AT [place] [address] ([facility]) (test code = [facility] 1538) [address] BASIC METABOLIC [id number] 06:10:00 Test Item Value Reference Range Interpretation Comments SODIUM (BEAKER) 136 meq/L 136-145 (test code = 381) POTASSIUM (BEAKER) 4.5 meq/L 3.5-5.1 (test code = 379) CHLORIDE (BEAKER) 105 meq/L 98-107 (test code = 382) CO2 (BEAKER) (test 23 meq/L 22-29 code = 355) BLOOD UREA NITROGEN 27 mg/dL 7-21 H (BEAKER) (test code = 354) CREATININE (BEAKER) 1.38 mg/dL 0.57-1.25 H (test code = 358) GLUCOSE RANDOM 111 mg/dL 70-105 H (BEAKER) (test code = 652) CALCIUM (BEAKER) 8.7 mg/dL 8.4-10.2 (test code = 697) EGFR (BEAKER) (test 51 mL/min/1.73 ESTIMA ARIS GFR IS code = 1092) sq m NOT ACCURATE CREATININE CLEARANCE IN PREDICTING GLOMERULAR FILTRATION RATE . ESTIMATED GFR I S NOT APPLICABLE FOR DIALYSIS PATIEN TS. CBC W/PLT COUNT & AUTO [id number] 05:22:00 Test Item Value Reference Range Interpretation Comments WHITE BLOOD CELL COUNT (BEAKER) 5.0 K/ L 3.5-10.5 (test code = 775) RED BLOOD CELL COUNT (BEAKER) 2.97 M/ L 4.63-6.08 L (test code = 761) HEMOGLOBIN (BEAKER) (test code = 8.4 GM/DL 13.7-17.5 L 410) HEMATOCRIT (BEAKER) (test code = 26.6 % 40.1-51.0 L 411) MEAN CORPUSCULAR VOLUME (BEAKER) 89.6 fL 79.0-92.2 (test code = 753) MEAN CORPUSCULAR HEMOGLOBIN 28.3 pg 25.7-32.2 (BEAKER) (test code = 751) MEAN CORPUSCULAR HEMOGLOBIN CONC 31.6 GM/DL 32.3-36.5 L (BEAKER) (test code = 752) RED CELL DISTRIBUTION WIDTH 13.8 % 11.6-14.4 (BEAKER) (test code = 412) PLATELET COUNT (BEAKER) (test 185 K/CU MM 150-450 code = 756) MEAN PLATELET VOLUME (BEAKER) 9.1 fL 9.4-12.4 L (test code = 754) NUCLEATED RED BLOOD CELLS 0 /100 WBC 0-0 (BEAKER) (test code = 413) NEUTROPHILS RELATIVE PERCENT 62 % (BEAKER) (test code = 429) LYMPHOCYTES RELATIVE PERCENT 28 % (BEAKER) (test code = 430) MONOCYTES RELATIVE PERCENT 9 % (BEAKER) (test code = 431) EOSINOPHILS RELATIVE PERCENT 0 % (BEAKER) (test code = 432) BASOPHILS RELATIVE PERCENT 0 % (BEAKER) (test code = 437) NEUTROPHILS ABSOLUTE COUNT 3.14 K/ L 1.78-5.38 (BEAKER) (test code = 670) LYMPHOCYTES ABSOLUTE COUNT 1.41 K/ L 1.32-3.57 (BEAKER) (test code = 414) MONOCYTES ABSOLUTE COUNT (BEAKER) 0.46 K/ L 0.30-0.82 (test code = 415) EOSINOPHILS ABSOLUTE COUNT 0.00 K/ L 0.04-0.54 L (BEAKER) (test code = 416) BASOPHILS ABSOLUTE COUNT (BEAKER) 0.01 K/ L 0.01-0.08 (test code = 417) IMMATURE GRANULOCYTES-RELATIVE 0 % 0-1 PERCENT (BEAKER) (test code = 2801) BASIC METABOLIC [id number] 21:59:00 Test Item Value Reference Range Interpretation Comments SODIUM (BEAKER) 136 meq/L 136-145 (test code = 381) POTASSIUM (BEAKER) 4.6 meq/L 3.5-5.1 (test code = 379) CHLORIDE (BEAKER) 104 meq/L 98-107 (test code = 382) CO2 (BEAKER) (test 22 meq/L 22-29 code = 355) BLOOD UREA NITROGEN 28 mg/dL 7-21 H (BEAKER) (test code = 354) CREATININE (BEAKER) 1.50 mg/dL 0.57-1.25 H (test code = 358) GLUCOSE RANDOM 154 mg/dL 70-105 H (BEAKER) (test code = 652) CALCIUM (BEAKER) 8.6 mg/dL 8.4-10.2 (test code = 697) EGFR (BEAKER) (test 46 mL/min/1.73 ESTIMA ARIS GFR IS code = 1092) sq m NOT ACCURATE CREATININE CLEARANCE IN PREDICTING GLOMERULAR FILTRATION RATE . ESTIMATED GFR I S NOT APPLICABLE FOR DIALYSIS PATIEN TS. HEMOGLOBIN AND [id number] 21:21:00 Test Item Value Reference Range Interpretation Comments HEMOGLOBIN (BEAKER) (test code = 8.8 GM/DL 13.7-17.5 L 410) HEMATOCRIT (BEAKER) (test code = 28.4 % 40.1-51.0 L 411) POCT-GLUCOSE [id number] 20:59:00 Test Item Value Reference Range Interpretation Comments POC-GLUCOSE METER 161 mg/dL 70-110 H TESTED AT [facility] 6720 (BEAKER) (test code = [place] 1538) [address] POCT-GLUCOSE [id number] 12:51:00 Test Item Value Reference Range Interpretation Comments POC-GLUCOSE METER 131 mg/dL 70-110 H TESTED AT [facility] 6720 (BEAKER) (test code = [place] 1538) [address] POCT-GLUCOSE [id number] 14:19:00 Test Item Value Reference Range Interpretation Comments POC-GLUCOSE METER 138 mg/dL 70-110 H TESTED AT [place] [address] (BEAKER) (test code = [facility] 1538) [address] POCT-GLUCOSE [id number] 08:57:00 Test Item Value Reference Range Interpretation Comments POC-GLUCOSE METER 132 mg/dL 70-110 H TESTED AT [place] [address] ([facility]) (test code = [facility] 1538) [address] POCT-GLUCOSE [id number] 21:03:00 Test Item Value Reference Range Interpretation Comments POC-GLUCOSE METER 165 mg/dL 70-110 H TESTED AT [place] [address] ([facility]) (test code = [facility] 1538) [address] POCT-GLUCOSE [id number] 18:52:00 Test Item Value Reference Range Interpretation Comments POC-GLUCOSE METER 127 mg/dL 70-110 H TESTED AT [place] [address] ([facility]) (test code = [facility] 1538) [address] POCT-GLUCOSE [id number] 13:22:00 Test Item Value Reference Range Interpretation Comments POC-GLUCOSE METER 155 mg/dL 70-110 H TESTED AT [place] [address] ([facility]) (test code = [facility] 1538) [address] POCT-GLUCOSE [id number] 08:52:00 Test Item Value Reference Range Interpretation Comments POC-GLUCOSE METER 150 mg/dL 70-110 H TESTED AT [place] [address] ([facility]) (test code = [facility] 1538) [address] POCT-GLUCOSE [id number] 22:36:00 Test Item Value Reference Range Interpretation Comments POC-GLUCOSE METER 149 mg/dL 70-110 H TESTED AT [place] [address] ([facility]) (test code = [facility] 1538) [address] POCT-GLUCOSE [id number] 13:20:00 Test Item Value Reference Range Interpretation Comments POC-GLUCOSE METER 169 mg/dL 70-110 H TESTED AT [place] [address] ([facility]) (test code = [facility] 1538) [address] POCT-GLUCOSE [id number] 09:00:00 Test Item Value Reference Range Interpretation Comments POC-GLUCOSE METER 140 mg/dL 70-110 H TESTED AT [place] [address] ([facility]) (test code = [facility]quel [facility] 1538) [address] CBC W/PLT COUNT & AUTO [id number] 06:23:00 Test Item Value Reference Range Interpretation Comments WHITE BLOOD CELL COUNT (BEAKER) 4.5 K/ L 3.5-10.5 (test code = 775) RED BLOOD CELL COUNT (BEAKER) 3.14 M/ L 4.63-6.08 L (test code = 761) HEMOGLOBIN (BEAKER) (test code = 9.0 GM/DL 13.7-17.5 L 410) HEMATOCRIT (BEAKER) (test code = 28.1 % 40.1-51.0 L 411) MEAN CORPUSCULAR VOLUME (BEAKER) 89.5 fL 79.0-92.2 (test code = 753) MEAN CORPUSCULAR HEMOGLOBIN 28.7 pg 25.7-32.2 (BEAKER) (test code = 751) MEAN CORPUSCULAR HEMOGLOBIN CONC 32.0 GM/DL 32.3-36.5 L (BEAKER) (test code = 752) RED CELL DISTRIBUTION WIDTH 14.6 % 11.6-14.4 H (BEAKER) (test code = 412) PLATELET COUNT (BEAKER) (test 115 K/CU MM 150-450 L code = 756) MEAN PLATELET VOLUME (BEAKER) 9.4 fL 9.4-12.4 (test code = 754) NUCLEATED RED BLOOD CELLS 0 /100 WBC 0-0 (BEAKER) (test code = 413) NEUTROPHILS RELATIVE PERCENT 52 % (BEAKER) (test code = 429) LYMPHOCYTES RELATIVE PERCENT 32 % (BEAKER) (test code = 430) MONOCYTES RELATIVE PERCENT 12 % (BEAKER) (test code = 431) EOSINOPHILS RELATIVE PERCENT 3 % (BEAKER) (test code = 432) BASOPHILS RELATIVE PERCENT 0 % (BEAKER) (test code = 437) NEUTROPHILS ABSOLUTE COUNT 2.35 K/ L 1.78-5.38 (BEAKER) (test code = 670) LYMPHOCYTES ABSOLUTE COUNT 1.42 K/ L 1.32-3.57 (BEAKER) (test code = 414) MONOCYTES ABSOLUTE COUNT (BEAKER) 0.56 K/ L 0.30-0.82 (test code = 415) EOSINOPHILS ABSOLUTE COUNT 0.14 K/ L 0.04-0.54 (BEAKER) (test code = 416) BASOPHILS ABSOLUTE COUNT (BEAKER) 0.01 K/ L 0.01-0.08 (test code = 417) IMMATURE GRANULOCYTES-RELATIVE 0 % 0-1 PERCENT (BEAKER) (test code = 2801) ANG, ARTERIAL EMBOLIZATION FOR [id number] 15:04:00Reason for exam:- >right iliac wing RCC metastasis - requires preoperative [...] the patient's medical record by the nurse. Fast Food Assistant Restaurant Manager: Austin Frost MD. Talent Partner: None. Approach: Left common femoral artery Estimated [...] aorta. Theneedle was exchanged for a 4 Nigerian micropuncture sheath. The micropuncture sheath was exchanged over a 0.035 Bentson wire for a 5 Nigerian x 10 cm vascular sheath. Using a 5 Nigerian contra catheter and 0.035 angled Glidewire, the right common iliac artery was accessed via an up and over technique. A 4 Nigerian glide catheter was advanced into the left common iliac artery and a DSA run was performed. Using a 2.8 Nigerian microcatheter and 0.016 inch microwire, the circumflex [...] The arteriotomy was closed using a 5 Nigerian Myxn closure device. A sterile dressing was [...] embolization of right iliac lesion resulting in s ignificant reduction in hypervascularity as detailed above. Signed: Austin Frost MDReport Verified Date/Time: 08/15/2018 15:04:06 Reading Location: [place] [address] Angio Body Reading Room POCT-GLUCOSE [id number] 11:13:00 Test Item Value Reference Range Interpretation Comments POC-GLUCOSE METER 136 mg/dL 70-110 H TESTED AT [facility] 6720 ([facility]) (test code = [place] 1538) [address] BASIC METABOLIC [id number] 04:54:00 Test Item Value Reference Range Interpretation Comments SODIUM (BEAKER) 135 meq/L 136-145 L (test code = 381) POTASSIUM (BEAKER) 4.1 meq/L 3.5-5.1 (test code = 379) CHLORIDE (BEAKER) 103 meq/L 98-107 (test code = 382) CO2 (BEAKER) (test 26 meq/L 22-29 code = 355) BLOOD UREA NITROGEN 17 mg/dL 7-21 (BEAKER) (test code = 354) CREATININE (BEAKER) 0.92 mg/dL 0.57-1.25 (test code = 358) GLUCOSE RANDOM 134 mg/dL 70-105 H (BEAKER) (test code = 652) CALCIUM (BEAKER) 8.6 mg/dL 8.4-10.2 (test code = 697) EGFR (BEAKER) (test 81 mL/min/1.73 ESTIMA ARIS GFR IS code = 1092) sq m NOT ACCURATE CREATININE CLEARANCE IN PREDICTING GLOMERULAR FILTRATION RATE . ESTIMATED GFR I S NOT APPLICABLE FOR DIALYSIS PATIEN TS. [id number] 04:52:00 Test Item Value Reference Range Interpretation Comments PHOSPHORUS (BEAKER) (test code = 2.7 mg/dL 2.3-4.7 604) [id number] 04:52:00 Test Item Value Reference Range Interpretation Comments MAGNESIUM (BEAKER) (test code = 1.6 mg/dL 1.6-2.6 627) HEPATIC FUNCTION [id number] 04:52:00 Test Item Value Reference Range Interpretation Comments TOTAL PROTEIN (BEAKER) (test code = 6.4 gm/dL 6.0-8.3 770) ALBUMIN (BEAKER) (test code = 1145) 3.4 g/dL 3.5-5.0 L BILIRUBIN TOTAL (BEAKER) (test code 0.5 mg/dL 0.2-1.2 = 377) BILIRUBIN DIRECT (BEAKER) (test 0.3 mg/dL 0.1-0.5 code = 706) ALKALINE PHOSPHATASE (BEAKER) (test 76 U/L 40-150 code = 346) AST (SGOT) (BEAKER) (test code = 19 U/L 5-34 353) ALT (SGPT) (BEAKER) (test code = 6 U/L 6-55 347) CBC W/PLT COUNT & AUTO [id number] 04:32:00 Test Item Value Reference Range Interpretation Comments WHITE BLOOD CELL COUNT (BEAKER) 4.3 K/ L 3.5-10.5 (test code = 775) RED BLOOD CELL COUNT (BEAKER) 3.02 M/ L 4.63-6.08 L (test code = 761) HEMOGLOBIN (BEAKER) (test code = 8.5 GM/DL 13.7-17.5 L 410) HEMATOCRIT (BEAKER) (test code = 27.2 % 40.1-51.0 L 411) MEAN CORPUSCULAR VOLUME (BEAKER) 90.1 fL 79.0-92.2 (test code = 753) MEAN CORPUSCULAR HEMOGLOBIN 28.1 pg 25.7-32.2 (BEAKER) (test code = 751) MEAN CORPUSCULAR HEMOGLOBIN CONC 31.3 GM/DL 32.3-36.5 L (BEAKER) (test code = 752) RED CELL DISTRIBUTION WIDTH 14.9 % 11.6-14.4 H (BEAKER) (test code = 412) PLATELET COUNT (BEAKER) (test 105 K/CU MM 150-450 L code = 756) MEAN PLATELET VOLUME (BEAKER) 9.4 fL 9.4-12.4 (test code = 754) NUCLEATED RED BLOOD CELLS 0 /100 WBC 0-0 (BEAKER) (test code = 413) NEUTROPHILS RELATIVE PERCENT 56 % (BEAKER) (test code = 429) LYMPHOCYTES RELATIVE PERCENT 31 % (BEAKER) (test code = 430) MONOCYTES RELATIVE PERCENT 11 % (BEAKER) (test code = 431) EOSINOPHILS RELATIVE PERCENT 2 % (BEAKER) (test code = 432) BASOPHILS RELATIVE PERCENT 0 % (BEAKER) (test code = 437) NEUTROPHILS ABSOLUTE COUNT 2.44 K/ L 1.78-5.38 (BEAKER) (test code = 670) LYMPHOCYTES ABSOLUTE COUNT 1.33 K/ L 1.32-3.57 (BEAKER) (test code = 414) MONOCYTES ABSOLUTE COUNT (BEAKER) 0.46 K/ L 0.30-0.82 (test code = 415) EOSINOPHILS ABSOLUTE COUNT 0.08 K/ L 0.04-0.54 (BEAKER) (test code = 416) BASOPHILS ABSOLUTE COUNT (BEAKER) 0.01 K/ L 0.01-0.08 (test code = 417) IMMATURE GRANULOCYTES-RELATIVE 1 % 0-1 PERCENT (BEAKER) (test code = 2801) POCT-GLUCOSE [id number] 21:14:00 Test Item Value Reference Range Interpretation Comments POC-GLUCOSE METER 170 mg/dL 70-110 H TESTED AT [id number] (BEAKER) (test code = [place] 1538) [id number] POCT-GLUCOSE [id number] 13:18:00 Test Item Value Reference Range Interpretation Comments POC-GLUCOSE METER 141 mg/dL 70-110 H TESTED AT [place] [id number] (BEAKER) (test code = [place] 1538) [id number] POCT-GLUCOSE [id number] 09:24:00 Test Item Value Reference Range Interpretation Comments POC-GLUCOSE METER 132 mg/dL 70-110 H TESTED AT [place] [address] (BEAKER) (test code = [facility] 1538) [address] CBC W/PLT COUNT & AUTO [id number] 06:37:00 Test Item Value Reference Range Interpretation Comments WHITE BLOOD CELL COUNT (BEAKER) 4.8 K/ L 3.5-10.5 (test code = 775) RED BLOOD CELL COUNT (BEAKER) 3.25 M/ L 4.63-6.08 L (test code = 761) HEMOGLOBIN (BEAKER) (test code = 9.5 GM/DL 13.7-17.5 L 410) HEMATOCRIT (BEAKER) (test code = 29.2 % 40.1-51.0 L 411) MEAN CORPUSCULAR VOLUME (BEAKER) 89.8 fL 79.0-92.2 (test code = 753) MEAN CORPUSCULAR HEMOGLOBIN 29.2 pg 25.7-32.2 (BEAKER) (test code = 751) MEAN CORPUSCULAR HEMOGLOBIN CONC 32.5 GM/DL 32.3-36.5 (BEAKER) (test code = 752) RED CELL DISTRIBUTION WIDTH 14.6 % 11.6-14.4 H (BEAKER) (test code = 412) PLATELET COUNT (BEAKER) (test 128 K/CU MM 150-450 L code = 756) MEAN PLATELET VOLUME (BEAKER) 9.5 fL 9.4-12.4 (test code = 754) NUCLEATED RED BLOOD CELLS 0 /100 WBC 0-0 (BEAKER) (test code = 413) NEUTROPHILS RELATIVE PERCENT 64 % (BEAKER) (test code = 429) LYMPHOCYTES RELATIVE PERCENT 25 % (BEAKER) (test code = 430) MONOCYTES RELATIVE PERCENT 10 % (BEAKER) (test code = 431) EOSINOPHILS RELATIVE PERCENT 0 % (BEAKER) (test code = 432) BASOPHILS RELATIVE PERCENT 0 % (BEAKER) (test code = 437) NEUTROPHILS ABSOLUTE COUNT 3.06 K/ L 1.78-5.38 (BEAKER) (test code = 670) LYMPHOCYTES ABSOLUTE COUNT 1.21 K/ L 1.32-3.57 L (BEAKER) (test code = 414) MONOCYTES ABSOLUTE COUNT (BEAKER) 0.48 K/ L 0.30-0.82 (test code = 415) EOSINOPHILS ABSOLUTE COUNT 0.01 K/ L 0.04-0.54 L (BEAKER) (test code = 416) BASOPHILS ABSOLUTE COUNT (BEAKER) 0.00 K/ L 0.01-0.08 L (test code = 417) IMMATURE GRANULOCYTES-RELATIVE 0 % 0-1 PERCENT (BEAKER) (test code = 2801) [id number] 06:13:00 Test Item Value Reference Range Interpretation Comments PHOSPHORUS (BEAKER) (test code = 4.3 mg/dL 2.3-4.7 604) [id number] 06:13:00 Test Item Value Reference Range Interpretation Comments MAGNESIUM (BEAKER) (test code = 1.7 mg/dL 1.6-2.6 627) BASIC METABOLIC [id number] 06:13:00 Test Item Value Reference Range Interpretation Comments SODIUM (BEAKER) 135 meq/L 136-145 L (test code = 381) POTASSIUM (BEAKER) 4.6 meq/L 3.5-5.1 (test code = 379) CHLORIDE (BEAKER) 103 meq/L 98-107 (test code = 382) CO2 (BEAKER) (test 24 meq/L 22-29 code = 355) BLOOD UREA NITROGEN 19 mg/dL 7-21 (BEAKER) (test code = 354) CREATININE (BEAKER) 0.96 mg/dL 0.57-1.25 (test code = 358) GLUCOSE RANDOM 118 mg/dL 70-105 H (BEAKER) (test code = 652) CALCIUM (BEAKER) 8.6 mg/dL 8.4-10.2 (test code = 697) EGFR (BEAKER) (test 77 mL/min/1.73 ESTIMA ARIS GFR IS code = 1092) sq m NOT ACCURATE CREATININE CLEARANCE IN PREDICTING GLOMERULAR FILTRATION RATE . ESTIMATED GFR I S NOT APPLICABLE FOR DIALYSIS PATIEN TS. HEPATIC FUNCTION [id number] 06:13:00 Test Item Value Reference Range Interpretation Comments TOTAL PROTEIN (BEAKER) (test code = 6.4 gm/dL 6.0-8.3 770) ALBUMIN (BEAKER) (test code = 1145) 3.5 g/dL 3.5-5.0 BILIRUBIN TOTAL (BEAKER) (test code 0.5 mg/dL 0.2-1.2 = 377) BILIRUBIN DIRECT (BEAKER) (test 0.3 mg/dL 0.1-0.5 code = 706) ALKALINE PHOSPHATASE (BEAKER) (test 70 U/L 40-150 code = 346) AST (SGOT) (BEAKER) (test code = 34 U/L 5-34 353) ALT (SGPT) (BEAKER) (test code = 7 U/L 6-55 347) POCT-GLUCOSE [id number] 22:31:00 Test Item Value Reference Range Interpretation Comments POC-GLUCOSE METER 157 mg/dL 70-110 H TESTED AT [facility] 6720 (BEAKER) (test code = YU Garc[facility] [place] 1538) [address] RAD, PELVIS, 1 OR 2 [id number] 20:11:00Reason for exam:->postop right pelvis fixation and RCC cementingFINAL REPORT Pelvis, 08/13/2018 There are two screws extending transversely inthe supra-acetabular portion of the right iliac bone. The more superior screw extends to overlie the sacroiliac joint. High-grade density material has been placed into the lateral aspect of the right iliac bone, apparently into the previous defect. There is a drainage bulb connected to a catheter that extends into the high density area.. Signed: Rika Escobar MDReport Verified Date/Time: 08/13/201820:11:08 Reading Location: [facility] B1 [id number] Consult Reading Room POCT-GLUCOSE [id number] 18:15:00 Test Item Value Reference Range Interpretation Comments POC-GLUCOSE METER 146 mg/dL 70-110 H TESTED AT [facility] 6720 (BEAKER) (test code = [place] [place] 153) [address] HEMOGLOBIN AND [id number] 18:05:00 Test Item Value Reference Range Interpretation Comments HEMOGLOBIN (BEAKER) (test code = 10.3 GM/DL 13.7-17.5 L 410) HEMATOCRIT (BEAKER) (test code = 32.5 % 40.1-51.0 L 411) [place], CLIENT ONBOARDING ANALYST IN OR/30 MINUTE [id number] 17:33:00Reason for exam:->painFINAL REPORT Operative right hip, 08/13/2018 Eight images are submitted of theright hip in various projections displaying initial placement of of contrast into the superior acetabular region followed by placement of two screws extending transversely into the acetabulum. 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 Signed:Rika Escobar [facility] Verified Date/Time: 08/13/2018 17:33:20 Reading Location: [facility] C0[facility] Consult Reading Room PROTHROMBIN [id number] 03:57:00 Test Item Value Reference Range Interpretation Comments PROTIME (BEAKER) (test code = 13.7 seconds 11.7-14.7 759) INR (BEAKER) (test code = 370) 1.0 <=5.9 RECOMMENDED COUMADIN/WARFARIN INR THERAPY RANGESSTANDARD DOSE: 2.0 - 3.0 Includes: PROPHYLAXIS forvenous thrombosis, systemic embolization; TREATMENT for venous thrombosis and/or pulmonary embolus.HIGH RISK: Target INR is 2.5-3.5 for patients with mechanical heart valves.[id number] 03:55:00 Test Item Value Reference Range Interpretation Comments PHOSPHORUS (BEAKER) (test code = 3.2 mg/dL 2.3-4.7 604) [id number] 03:55:00 Test Item Value Reference Range Interpretation Comments MAGNESIUM (BEAKER) (test code = 1.4 mg/dL 1.6-2.6 L 627) BASIC METABOLIC [id number] 03:55:00 Test Item Value Reference Range Interpretation Comments SODIUM (BEAKER) 138 meq/L 136-145 (test code = 381) POTASSIUM (BEAKER) 3.7 meq/L 3.5-5.1 (test code = 379) CHLORIDE (BEAKER) 104 meq/L 98-107 (test code = 382) CO2 (BEAKER) (test 26 meq/L 22-29 code = 355) BLOOD UREA NITROGEN 16 mg/dL 7-21 (BEAKER) (test code = 354) CREATININE (BEAKER) 0.84 mg/dL 0.57-1.25 (test code = 358) GLUCOSE RANDOM 123 mg/dL 70-105 H (BEAKER) (test code = 652) CALCIUM (BEAKER) 9.7 mg/dL 8.4-10.2 (test code = 697) EGFR (BEAKER) (test 90 mL/min/1.73 ESTIMA ARIS GFR IS code = 1092) sq m NOT ACCURATE CREATININE CLEARANCE IN PREDICTING GLOMERULAR FILTRATION RATE . ESTIMATED GFR I S NOT APPLICABLE FOR DIALYSIS PATIEN TS. LIPID [id number] 03:55:00 Test Item Value Reference Range Interpretation Comments TRIGLYCERIDES (BEAKER) (test code = 133 mg/dL 540) CHOLESTEROL (BEAKER) (test code = 108 mg/dL 631) HDL CHOLESTEROL (BEAKER) (test code 25 mg/dL = 976) LDL CHOLESTEROL CALCULATED (BEAKER) 56 mg/dL (test code = 633) Triglyceride Reference Range: Low Risk <150 Borderline 150-199 High Risk 200-499 Very High Risk >=500Cholesterol Reference Range: Low Risk <200 Borderline 200-239 High Risk >240HDL Cholesterol Reference Range: Low Risk >=60 High Risk <40LDL Cholesterol Reference Range: Optimal <100 Near Optimal 100-129 Borderline 130-159 High 160-189 Very High >=190HEPATIC FUNCTION [id number] 03:55:00 Test Item Value Reference Range Interpretation Comments TOTAL PROTEIN (BEAKER) (test code = 7.2 gm/dL 6.0-8.3 770) ALBUMIN (BEAKER) (test code = 1145) 3.8 g/dL 3.5-5.0 BILIRUBIN TOTAL (BEAKER) (test code 0.4 mg/dL 0.2-1.2 = 377) BILIRUBIN DIRECT (BEAKER) (test 0.2 mg/dL 0.1-0.5 code = 706) ALKALINE PHOSPHATASE (BEAKER) (test 68 U/L 40-150 code = 346) AST (SGOT) (BEAKER) (test code = 19 U/L 5-34 353) ALT (SGPT) (BEAKER) (test code = 9 U/L 6-55 347) CBC W/PLT COUNT & AUTO [id number] 03:42:00 Test Item Value Reference Range Interpretation Comments WHITE BLOOD CELL COUNT (BEAKER) 3.9 K/ L 3.5-10.5 (test code = 775) RED BLOOD CELL COUNT (BEAKER) 3.40 M/ L 4.63-6.08 L (test code = 761) HEMOGLOBIN (BEAKER) (test code = 9.5 GM/DL 13.7-17.5 L 410) HEMATOCRIT (BEAKER) (test code = 30.0 % 40.1-51.0 L 411) MEAN CORPUSCULAR VOLUME (BEAKER) 88.2 fL 79.0-92.2 (test code = 753) MEAN CORPUSCULAR HEMOGLOBIN 27.9 pg 25.7-32.2 (BEAKER) (test code = 751) MEAN CORPUSCULAR HEMOGLOBIN CONC 31.7 GM/DL 32.3-36.5 L (BEAKER) (test code = 752) RED CELL DISTRIBUTION WIDTH 14.9 % 11.6-14.4 H (BEAKER) (test code = 412) PLATELET COUNT (BEAKER) (test 133 K/CU MM 150-450 L code = 756) MEAN PLATELET VOLUME (BEAKER) 9.4 fL 9.4-12.4 (test code = 754) NUCLEATED RED BLOOD CELLS 0 /100 WBC 0-0 (BEAKER) (test code = 413) NEUTROPHILS RELATIVE PERCENT 50 % (BEAKER) (test code = 429) LYMPHOCYTES RELATIVE PERCENT 38 % (BEAKER) (test code = 430) MONOCYTES RELATIVE PERCENT 9 % (BEAKER) (test code = 431) EOSINOPHILS RELATIVE PERCENT 3 % (BEAKER) (test code = 432) BASOPHILS RELATIVE PERCENT 0 % (BEAKER) (test code = 437) NEUTROPHILS ABSOLUTE COUNT 1.92 K/ L 1.78-5.38 (BEAKER) (test code = 670) LYMPHOCYTES ABSOLUTE COUNT 1.46 K/ L 1.32-3.57 (BEAKER) (test code = 414) MONOCYTES ABSOLUTE COUNT (BEAKER) 0.35 K/ L 0.30-0.82 (test code = 415) EOSINOPHILS ABSOLUTE COUNT 0.10 K/ L 0.04-0.54 (BEAKER) (test code = 416) BASOPHILS ABSOLUTE COUNT (BEAKER) 0.01 K/ L 0.01-0.08 (test code = 417) IMMATURE GRANULOCYTES-RELATIVE 0 % 0-1 PERCENT (BEAKER) (test code = 2801) BASIC METABOLIC [id number] 11:50:00 Test Item Value Reference Range Interpretation Comments SODIUM (BEAKER) 138 meq/L 136-145 (test code = 381) POTASSIUM (BEAKER) 4.2 meq/L 3.5-5.1 (test code = 379) CHLORIDE (BEAKER) 106 meq/L 98-107 (test code = 382) CO2 (BEAKER) (test 24 meq/L 22-29 code = 355) BLOOD UREA NITROGEN 20 mg/dL 7-21 (BEAKER) (test code = 354) CREATININE (BEAKER) 1.03 mg/dL 0.57-1.25 (test code = 358) GLUCOSE RANDOM 125 mg/dL 70-105 H (BEAKER) (test code = 652) CALCIUM (BEAKER) 9.6 mg/dL 8.4-10.2 (test code = 697) EGFR (BEAKER) (test 71 mL/min/1.73 ESTIMA ARIS GFR IS code = 1092) sq m NOT ACCURATE CREATININE CLEARANCE IN PREDICTING GLOMERULAR FILTRATION RATE . ESTIMATED GFR I S NOT APPLICABLE FOR DIALYSIS PATIEN TS. [id number] 11:32:00 Test Item Value Reference Range Interpretation Comments PARTIAL THROMBOPLASTIN TIME 30.9 seconds 22.5-36.0 (BEAKER) (test code = 760) PROTHROMBIN [id number] 11:31:00 Test Item Value Reference Range Interpretation Comments PROTIME (BEAKER) (test code = 13.6 seconds 11.7-14.7 759) INR (BEAKER) (test code = 370) 1.0 <=5.9 RECOMMENDED COUMADIN/WARFARIN INR THERAPY RANGESSTANDARD DOSE: 2.0 - 3.0 Includes: PROPHYLAXIS forvenous thrombosis, systemic embolization; TREATMENT for venous thrombosis and/or pulmonary embolus.HIGH RISK: Target INR is 2.5-3.5 for patients with mechanical heart valves.CBC W/PLT COUNT & AUTO DIFFERENTIAL 2018-08-12 11:22:00 Test Item Value Reference Range Interpretation Comments WHITE BLOOD CELL COUNT (BEAKER) 3.8 K/ L 3.5-10.5 (test code = 775) RED BLOOD CELL COUNT (BEAKER) 3.54 M/ L 4.63-6.08 L (test code = 761) HEMOGLOBIN (BEAKER) (test code = 9.7 GM/DL 13.7-17.5 L 410) HEMATOCRIT (BEAKER) (test code = 31.9 % 40.1-51.0 L 411) MEAN CORPUSCULAR VOLUME (BEAKER) 90.1 fL 79.0-92.2 (test code = 753) MEAN CORPUSCULAR HEMOGLOBIN 27.4 pg 25.7-32.2 (BEAKER) (test code = 751) MEAN CORPUSCULAR HEMOGLOBIN CONC 30.4 GM/DL 32.3-36.5 L (BEAKER) (test code = 752) RED CELL DISTRIBUTION WIDTH 14.9 % 11.6-14.4 H (BEAKER) (test code = 412) PLATELET COUNT (BEAKER) (test 131 K/CU MM 150-450 L code = 756) MEAN PLATELET VOLUME (BEAKER) 9.2 fL 9.4-12.4 L (test code = 754) NUCLEATED RED BLOOD CELLS 0 /100 WBC 0-0 (BEAKER) (test code = 413) NEUTROPHILS RELATIVE PERCENT 51 % (BEAKER) (test code = 429) LYMPHOCYTES RELATIVE PERCENT 36 % (BEAKER) (test code = 430) MONOCYTES RELATIVE PERCENT 10 % (BEAKER) (test code = 431) EOSINOPHILS RELATIVE PERCENT 3 % (BEAKER) (test code = 432) BASOPHILS RELATIVE PERCENT 0 % (BEAKER) (test code = 437) NEUTROPHILS ABSOLUTE COUNT 1.94 K/ L 1.78-5.38 (BEAKER) (test code = 670) LYMPHOCYTES ABSOLUTE COUNT 1.35 K/ L 1.32-3.57 (BEAKER) (test code = 414) MONOCYTES ABSOLUTE COUNT (BEAKER) 0.37 K/ L 0.30-0.82 (test code = 415) EOSINOPHILS ABSOLUTE COUNT 0.10 K/ L 0.04-0.54 (BEAKER) (test code = 416) BASOPHILS ABSOLUTE COUNT (BEAKER) 0.01 K/ L 0.01-0.08 (test code = 417) IMMATURE GRANULOCYTES-RELATIVE 0 % 0-1 PERCENT (BEAKER) (test code = 2801) TISSUE [id number] 16:07:00Surgical Pathology Report Case: [id number] Authorizing Provider: Antonio Weir MD Collected: 07/28/2018 1122 Ordering Location: [address] Received: 07/28/2018 8088 Service Pathologist: Franki Ku MD Specimen: Kidney, Left KIDNEY, LEFT, BIOPSY OF MASS- 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 Some parts of the tumor have prominent eosinophiliccytoplasm. INTRADEPARTMENTAL CONSULTATION: - Tono Lundy MD has seen the case and agrees withthe diagnosis.34192Spee renal mass 7.2 x 5.1 x 6.0 cmLeft [place] renal biopsyThe specimen is received in a formalin-filled container labeled with the patient's information and labeled "left [place] renal biopsy" and consists of multiple couch- red core biopsies ranging from 0.1 to 1.5 cm, submitted entirely in A1. CG/ew Performed.The interpretation of this case included the use of immunohistochemistry orspecial stains. Immunohistochemistry technical testing was performed at [facility], Pathology Laboratory where it was developed [...] as qualified to perform high complexity clinical l aboratory testing.RAD, KNEE, 1 OR 2 VIEWS, [id number] 12:35:00Reason for exam:->possible cancer seen on bone [...] is made of a fabella present. Impression: M ild degenerative changes in the left knee. Signed: Sherif Garza MDReport Verified Date/Time: 07/29/2018 12:35:32 Reading Location: [address] Consult Reading Room POCT-GLUCOSE [id number] 13:11:00 Test Item Value Reference Range Interpretation Comments POC-GLUCOSE METER 118 mg/dL 70-110 H TESTED AT [place] [address] ([facility]) (test code = [facility] 1538) [address] U/S, BIOPSY, RENAL (KIDNEY)2018-07-28 11:52:00Reason for exam:->L renal mass, please biopsyFINAL REPORT INDICATION:68-year-old male with left [...] and Fentanyl 50 mcg IV administered. The [facility] of radiology nurse was present at the time of procedure. Monitored cardiorespiratory function during conscious sedation was performed under the radiologist's supervision. Total monitoring time was approximately 45 minutes. IMPRESSION: Ultrasound-guided core biopsy of the left renal mass without complication. Signed: Caron Rick MDReport Verified Date/Time: 07/28/2018 11:52:52 Reading Location: [facility] P006J Ultrasound Reading Room POCT-GLUCOSE [id number] 08:38:00 Test Item Value Reference Range Interpretation Comments POC-GLUCOSE METER 128 mg/dL 70-110 H TESTED AT [facility] 6720 (BEAKER) (test code = Y[facility] Garc[facility] 1538) [address] BASIC METABOLIC [id number] 06:31:00 Test Item Value Reference Range Interpretation Comments SODIUM (BEAKER) 137 meq/L 136-145 (test code = 381) POTASSIUM (BEAKER) 4.1 meq/L 3.5-5.1 (test code = 379) CHLORIDE (BEAKER) 104 meq/L 98-107 (test code = 382) CO2 (BEAKER) (test 25 meq/L 22-29 code = 355) BLOOD UREA NITROGEN 26 mg/dL 7-21 H (BEAKER) (test code = 354) CREATININE (BEAKER) 0.92 mg/dL 0.57-1.25 (test code = 358) GLUCOSE RANDOM 138 mg/dL 70-105 H (BEAKER) (test code = 652) CALCIUM (BEAKER) 9.9 mg/dL 8.4-10.2 (test code = 697) EGFR (BEAKER) (test 81 mL/min/1.73 ESTIMA ARIS GFR IS code = 1092) sq m NOT ACCURATE CREATININE CLEARANCE IN PREDICTING GLOMERULAR FILTRATION RATE . ESTIMATED GFR I S NOT APPLICABLE FOR DIALYSIS PATIEN TS. [id number] 05:25:00 Test Item Value Reference Range Interpretation Comments PROTIME (BEAKER) (test code = 13.2 seconds 11.7-14.7 759) INR (BEAKER) (test code = 370) 1.0 <=5.9 PARTIAL THROMBOPLASTIN TIME 33.2 seconds 22.5-36.0 (BEAKER) (test code = 760) RECOMMENDED COUMADIN/WARFARIN INR THERAPY RANGESSTANDARD DOSE: 2.0 - 3.0 Includes: PROPHYLAXIS forvenous thrombosis, systemic embolization; TREATMENT for venous thrombosis and/or pulmonary embolus.HIGH RISK: Target INR is 2.5-3.5 for patients with mechanical heart valves.CBC W/PLT COUNT & AUTO DIFFERENTIAL 2018-07-28 04:57:00 Test Item Value Reference Range Interpretation Comments WHITE BLOOD CELL COUNT (BEAKER) 4.4 K/ L 3.5-10.5 (test code = 775) RED BLOOD CELL COUNT (BEAKER) 3.72 M/ L 4.63-6.08 L (test code = 761) HEMOGLOBIN (BEAKER) (test code = 10.4 GM/DL 13.7-17.5 L 410) HEMATOCRIT (BEAKER) (test code = 33.6 % 40.1-51.0 L 411) MEAN CORPUSCULAR VOLUME (BEAKER) 90.3 fL 79.0-92.2 (test code = 753) MEAN CORPUSCULAR HEMOGLOBIN 28.0 pg 25.7-32.2 (BEAKER) (test code = 751) MEAN CORPUSCULAR HEMOGLOBIN CONC 31.0 GM/DL 32.3-36.5 L (BEAKER) (test code = 752) RED CELL DISTRIBUTION WIDTH 14.8 % 11.6-14.4 H (BEAKER) (test code = 412) PLATELET COUNT (BEAKER) (test 200 K/CU MM 150-450 code = 756) MEAN PLATELET VOLUME (BEAKER) 9.2 fL 9.4-12.4 L (test code = 754) NUCLEATED RED BLOOD CELLS 0 /100 WBC 0-0 (BEAKER) (test code = 413) NEUTROPHILS RELATIVE PERCENT 39 % (BEAKER) (test code = 429) LYMPHOCYTES RELATIVE PERCENT 47 % (BEAKER) (test code = 430) MONOCYTES RELATIVE PERCENT 9 % (BEAKER) (test code = 431) EOSINOPHILS RELATIVE PERCENT 3 % (BEAKER) (test code = 432) BASOPHILS RELATIVE PERCENT 1 % (BEAKER) (test code = 437) NEUTROPHILS ABSOLUTE COUNT 1.73 K/ L 1.78-5.38 L (BEAKER) (test code = 670) LYMPHOCYTES ABSOLUTE COUNT 2.09 K/ L 1.32-3.57 (BEAKER) (test code = 414) MONOCYTES ABSOLUTE COUNT (BEAKER) 0.40 K/ L 0.30-0.82 (test code = 415) EOSINOPHILS ABSOLUTE COUNT 0.15 K/ L 0.04-0.54 (BEAKER) (test code = 416) BASOPHILS ABSOLUTE COUNT (BEAKER) 0.02 K/ L 0.01-0.08 (test code = 417) IMMATURE GRANULOCYTES-RELATIVE 1 % 0-1 PERCENT (BEAKER) (test code = 2801) POCT-GLUCOSE [id number] 22:16:00 Test Item Value Reference Range Interpretation Comments POC-GLUCOSE METER 140 mg/dL 70-110 H TESTED AT [place] [address] ([facility]) (test code = [facility] 1538) [address] BONE AND/OR JOINT IMAGING, WHOLE [id number] 20:29:00FINAL REPORT PROCEDURE: BONE SCAN, WHOLE BODY CPT CODE: 59292 ONEIL CATION: Renal masses pelvic mass concerning for renal [...] left knee.The facial finding is suspicious for pe riodontal disease the other findings are consistent with arthritic changes. Images for comparison/correlation were CT of the abdomen and pelvis from July 24, 2018. Signed: Shabana Prather Verified Date/Time: 07/27/2018 20:29:10 POCT-GLUCOSE [id number] 18:46:00 Test Item Value Reference Range Interpretation Comments POC-GLUCOSE METER 115 mg/dL 70-110 H TESTED AT [facility] 6720 ([facility]) (test code = [facility] 1538) [address] POCT-GLUCOSE [id number] 14:03:00 Test Item Value Reference Range Interpretation Comments POC-GLUCOSE METER 141 mg/dL 70-110 H TESTED AT [place] [address] ([facility]) (test code = [facility] 1538) [address] POCT-GLUCOSE [id number] 09:27:00 Test Item Value Reference Range Interpretation Comments POC-GLUCOSE METER 138 mg/dL 70-110 H TESTED AT [place] [address] ([facility]) (test code = Y[facility] Garc[facility] 1538) [address] POCT-GLUCOSE [id number] 08:49:00 Test Item Value Reference Range Interpretation Comments POC-GLUCOSE METER 204 mg/dL 70-110 H TESTED AT [place] [address] ([facility]) (test code = [facility] Raquel [facility] 1538) [address] POCT-GLUCOSE [id number] 18:45:00 Test Item Value Reference Range Interpretation Comments POC-GLUCOSE METER 104 mg/dL 70-110 TESTED AT [place] [address] ([facility]) (test code = [facility] Raquel [facility] 1538) [address] HEPATIC FUNCTION [id number] 07:52:00 Test Item Value Reference Range Interpretation Comments TOTAL PROTEIN (BEAKER) (test code = 7.0 gm/dL 6.0-8.3 770) ALBUMIN (BEAKER) (test code = 1145) 3.6 g/dL 3.5-5.0 BILIRUBIN TOTAL (BEAKER) (test code 0.4 mg/dL 0.2-1.2 = 377) BILIRUBIN DIRECT (BEAKER) (test 0.2 mg/dL 0.1-0.5 code = 706) ALKALINE PHOSPHATASE (BEAKER) (test 76 U/L 40-150 code = 346) AST (SGOT) (BEAKER) (test code = 18 U/L 5-34 353) ALT (SGPT) (BEAKER) (test code = 14 U/L 6-55 347) POCT-GLUCOSE [id number] 06:11:00 Test Item Value Reference Range Interpretation Comments POC-GLUCOSE METER 144 mg/dL 70-110 H TESTED AT [place] [address] ([facility]) (test code = [facility] 1538) [address] POCT-GLUCOSE [id number] 22:55:00 Test Item Value Reference Range Interpretation Comments POC-GLUCOSE METER 187 mg/dL 70-110 H TESTED AT [facility] 6720 (BEAKER) (test code = [facility] 1538) [id number] VITAMIN B12 AND [id number] 16:34:00 Test Item Value Reference Range Interpretation Comments VITAMIN B12 (BEAKER) (test code = 1244 pg/mL 213-816 H 774) FOLATE (BEAKER) (test code = 362) 5.1 ng/mL >=7.0 L HEMOGLOBIN [id number] 10:21:00 Test Item Value Reference Range Interpretation Comments HEMOGLOBIN A1C (BEAKER) (test code = 4.5 % 4.3-6.1 368) CBC W/PLT COUNT & AUTO [id number] 07:02:00 Test Item Value Reference Range Interpretation Comments WHITE BLOOD CELL COUNT (BEAKER) 4.6 K/ L 3.5-10.5 (test code = 775) RED BLOOD CELL COUNT (BEAKER) 3.50 M/ L 4.63-6.08 L (test code = 761) HEMOGLOBIN (BEAKER) (test code = 9.7 GM/DL 13.7-17.5 L 410) HEMATOCRIT (BEAKER) (test code = 30.6 % 40.1-51.0 L 411) MEAN CORPUSCULAR VOLUME (BEAKER) 87.4 fL 79.0-92.2 (test code = 753) MEAN CORPUSCULAR HEMOGLOBIN 27.7 pg 25.7-32.2 (BEAKER) (test code = 751) MEAN CORPUSCULAR HEMOGLOBIN CONC 31.7 GM/DL 32.3-36.5 L (BEAKER) (test code = 752) RED CELL DISTRIBUTION WIDTH 14.7 % 11.6-14.4 H (BEAKER) (test code = 412) PLATELET COUNT (BEAKER) (test 171 K/CU MM 150-450 code = 756) MEAN PLATELET VOLUME (BEAKER) 9.5 fL 9.4-12.4 (test code = 754) NUCLEATED RED BLOOD CELLS 0 /100 WBC 0-0 (BEAKER) (test code = 413) NEUTROPHILS RELATIVE PERCENT 44 % (BEAKER) (test code = 429) LYMPHOCYTES RELATIVE PERCENT 45 % (BEAKER) (test code = 430) MONOCYTES RELATIVE PERCENT 8 % (BEAKER) (test code = 431) EOSINOPHILS RELATIVE PERCENT 3 % (BEAKER) (test code = 432) BASOPHILS RELATIVE PERCENT 0 % (BEAKER) (test code = 437) NEUTROPHILS ABSOLUTE COUNT 2.01 K/ L 1.78-5.38 (BEAKER) (test code = 670) LYMPHOCYTES ABSOLUTE COUNT 2.07 K/ L 1.32-3.57 (BEAKER) (test code = 414) MONOCYTES ABSOLUTE COUNT (BEAKER) 0.36 K/ L 0.30-0.82 (test code = 415) EOSINOPHILS ABSOLUTE COUNT 0.13 K/ L 0.04-0.54 (BEAKER) (test code = 416) BASOPHILS ABSOLUTE COUNT (BEAKER) 0.02 K/ L 0.01-0.08 (test code = 417) IMMATURE GRANULOCYTES-RELATIVE 0 % 0-1 PERCENT (BEAKER) (test code = 2801) [id number] 06:53:00 Test Item Value Reference Range Interpretation Comments FERRITIN (BEAKER) (test code = 361) 283 ng/mL 5-275 H IRON, TIBC, % SAT. (WITHOUT FERRITIN)2018-07-25 06:31:00 Test Item Value Reference Range Interpretation Comments IRON (BEAKER) (test code = 547) 56.0 ug/dL 40.0-160.0 TOTAL IRON BINDING CAPACITY 296 ug/dL 250-450 (BEAKER) (test code = 769) IRON % SATURATION (2) (BEAKER) 19 % 20-55 L (test code = 2590) BASIC METABOLIC [id number] 06:12:00 Test Item Value Reference Range Interpretation Comments SODIUM (BEAKER) 139 meq/L 136-145 (test code = 381) POTASSIUM (BEAKER) 4.0 meq/L 3.5-5.1 Specimen slightly (test code = 379) hemolyzed CHLORIDE (BEAKER) 103 meq/L 98-107 (test code = 382) CO2 (BEAKER) (test 26 meq/L 22-29 code = 355) BLOOD UREA NITROGEN 19 mg/dL 7-21 (BEAKER) (test code = 354) CREATININE (BEAKER) 0.83 mg/dL 0.57-1.25 Specimen slightly (test code = 358) hemolyzed GLUCOSE RANDOM 107 mg/dL 70-105 H (BEAKER) (test code = 652) CALCIUM (BEAKER) 10.1 mg/dL 8.4-10.2 (test code = 697) EGFR (BEAKER) (test 92 mL/min/1.73 ESTIMA ARIS GFR IS code = 1092) sq m NOT ACCURATE CREATININE CLEARANCE IN PREDICTING GLOMERULAR FILTRATION RATE . ESTIMATED GFR I S NOT APPLICABLE FOR DIALYSIS PATIEN TS. CT, CHEST, WITH [id number] 21:44:00FINAL REPORT CT of the Chest, abdomen [...] prevascular mediastinum. The largest lymph node measures approxi mately 1.0 x 1.3 cm.. Trachea and mainstem [...] MDReport Verified Date/Time: 07/24/2018 21:44:37 Reading Location: [address] Consult Reading Room CT, [id number] 21:44:00FINAL REPORT CT of the Chest, abdomen [...] MDReport Verified Date/Time: 07/24/2018 21:44:37 Reading Location: [address] Consult Reading Room POCT-GLUCOSE [id number] 21:35:00 Test Item Value Reference Range Interpretation Comments POC-GLUCOSE METER 104 mg/dL 70-110 TESTED AT [place] [address] (BEAKER) (test code = [facility] 1538) [id number] POCT-GLUCOSE [id number] 17:53:00 Test Item Value Reference Range Interpretation Comments POC-GLUCOSE METER 163 mg/dL 70-110 H TESTED AT [place] [address] (BEAKER) (test code = [facility] 1538) [id number] URINALYSIS W/ REFLEX URINE [id number] 17:22:00 Test Item Value Reference Range Interpretation Comments COLOR (BEAKER) (test code = 470) Yellow CLARITY (BEAKER) (test code = 469) Clear SPECIFIC GRAVITY UA (BEAKER) (test 1.022 1.001-1.035 code = 468) PH UA (BEAKER) (test code = 467) 6.0 5.0-8.0 PROTEIN UA (BEAKER) (test code = 50 mg/dL Negative A 464) GLUCOSE UA (BEAKER) (test code = Negative Negative 365) KETONES UA (BEAKER) (test code = Negative Negative 371) BILIRUBIN UA (BEAKER) (test code = Negative Negative 462) BLOOD UA (BEAKER) (test code = 461) Negative Negative NITRITE UA (BEAKER) (test code = Negative Negative 465) LEUKOCYTE ESTERASE UA (BEAKER) Negative Negative (test code = 466) UROBILINOGEN UA (BEAKER) (test code 0.2 mg/dL 0.2-1.0 = 463) RBC UA (BEAKER) (test code = 519) < /HPF WBC UA (BEAKER) (test code = 520) < /HPF MUCUS (BEAKER) (test code = 1574) Few SOURCE(BEAKER) (test code = 2797) POCT-GLUCOSE [id number] 10:06:00 Test Item Value Reference Range Interpretation Comments POC-GLUCOSE METER 121 mg/dL 70-110 H TESTED AT [facility] 6720 (BEAKER) (test code = [facility] 1538) [id number] BASIC METABOLIC [id number] 05:47:00 Test Item Value Reference Range Interpretation Comments SODIUM (BEAKER) 139 meq/L 136-145 (test code = 381) POTASSIUM (BEAKER) 3.9 meq/L 3.5-5.1 (test code = 379) CHLORIDE (BEAKER) 105 meq/L 98-107 (test code = 382) CO2 (BEAKER) (test 26 meq/L 22-29 code = 355) BLOOD UREA NITROGEN 21 mg/dL 7-21 (BEAKER) (test code = 354) CREATININE (BEAKER) 0.84 mg/dL 0.57-1.25 (test code = 358) GLUCOSE RANDOM 116 mg/dL 70-105 H (BEAKER) (test code = 652) CALCIUM (BEAKER) 9.8 mg/dL 8.4-10.2 (test code = 697) EGFR (BEAKER) (test 90 mL/min/1.73 ESTIMA ARIS GFR IS code = 1092) sq m NOT ACCURATE CREATININE CLEARANCE IN PREDICTING GLOMERULAR FILTRATION RATE . ESTIMATED GFR I S NOT APPLICABLE FOR DIALYSIS PATIEN TS. CBC W/PLT COUNT & AUTO [id number] 05:38:00 Test Item Value Reference Range Interpretation Comments WHITE BLOOD CELL COUNT (BEAKER) 4.6 K/ L 3.5-10.5 (test code = 775) RED BLOOD CELL COUNT (BEAKER) 3.63 M/ L 4.63-6.08 L (test code = 761) HEMOGLOBIN (BEAKER) (test code = 10.0 GM/DL 13.7-17.5 L 410) HEMATOCRIT (BEAKER) (test code = 31.8 % 40.1-51.0 L 411) MEAN CORPUSCULAR VOLUME (BEAKER) 87.6 fL 79.0-92.2 (test code = 753) MEAN CORPUSCULAR HEMOGLOBIN 27.5 pg 25.7-32.2 (BEAKER) (test code = 751) MEAN CORPUSCULAR HEMOGLOBIN CONC 31.4 GM/DL 32.3-36.5 L (BEAKER) (test code = 752) RED CELL DISTRIBUTION WIDTH 14.4 % 11.6-14.4 (BEAKER) (test code = 412) PLATELET COUNT (BEAKER) (test 154 K/CU MM 150-450 code = 756) MEAN PLATELET VOLUME (BEAKER) 9.6 fL 9.4-12.4 (test code = 754) NUCLEATED RED BLOOD CELLS 0 /100 WBC 0-0 (BEAKER) (test code = 413) NEUTROPHILS RELATIVE PERCENT 43 % (BEAKER) (test code = 429) LYMPHOCYTES RELATIVE PERCENT 45 % (BEAKER) (test code = 430) MONOCYTES RELATIVE PERCENT 9 % (BEAKER) (test code = 431) EOSINOPHILS RELATIVE PERCENT 2 % (BEAKER) (test code = 432) BASOPHILS RELATIVE PERCENT 0 % (BEAKER) (test code = 437) NEUTROPHILS ABSOLUTE COUNT 1.96 K/ L 1.78-5.38 (BEAKER) (test code = 670) LYMPHOCYTES ABSOLUTE COUNT 2.03 K/ L 1.32-3.57 (BEAKER) (test code = 414) MONOCYTES ABSOLUTE COUNT (BEAKER) 0.42 K/ L 0.30-0.82 (test code = 415) EOSINOPHILS ABSOLUTE COUNT 0.11 K/ L 0.04-0.54 (BEAKER) (test code = 416) BASOPHILS ABSOLUTE COUNT (BEAKER) 0.02 K/ L 0.01-0.08 (test code = 417) IMMATURE GRANULOCYTES-RELATIVE 0 % 0-1 PERCENT (BEAKER) (test code = 2801) POCT-GLUCOSE [id number] 21:46:00 Test Item Value Reference Range Interpretation Comments POC-GLUCOSE METER 144 mg/dL 70-110 H TESTED AT [facility] 6720 (BEAKER) (test code = [facility] [place] 1538) [address] POCT-GLUCOSE [id number] 12:41:00 Test Item Value Reference Range Interpretation Comments POC-GLUCOSE METER 141 mg/dL 70-110 H TESTED AT [facility] 6720 (BEAKER) (test code = [facility] [place] 1538) [id number] CBC W/PLT COUNT & AUTO [id number] 05:23:00 Test Item Value Reference Range Interpretation Comments WHITE BLOOD CELL COUNT (BEAKER) 4.2 K/ L 3.5-10.5 (test code = 775) RED BLOOD CELL COUNT (BEAKER) 3.62 M/ L 4.63-6.08 L (test code = 761) HEMOGLOBIN (BEAKER) (test code = 10.0 GM/DL 13.7-17.5 L 410) HEMATOCRIT (BEAKER) (test code = 31.6 % 40.1-51.0 L 411) MEAN CORPUSCULAR VOLUME (BEAKER) 87.3 fL 79.0-92.2 (test code = 753) MEAN CORPUSCULAR HEMOGLOBIN 27.6 pg 25.7-32.2 (BEAKER) (test code = 751) MEAN CORPUSCULAR HEMOGLOBIN CONC 31.6 GM/DL 32.3-36.5 L (BEAKER) (test code = 752) RED CELL DISTRIBUTION WIDTH 14.4 % 11.6-14.4 (BEAKER) (test code = 412) PLATELET COUNT (BEAKER) (test 139 K/CU MM 150-450 L code = 756) MEAN PLATELET VOLUME (BEAKER) 9.8 fL 9.4-12.4 (test code = 754) NUCLEATED RED BLOOD CELLS 0 /100 WBC 0-0 (BEAKER) (test code = 413) NEUTROPHILS RELATIVE PERCENT 43 % (BEAKER) (test code = 429) LYMPHOCYTES RELATIVE PERCENT 44 % (BEAKER) (test code = 430) MONOCYTES RELATIVE PERCENT 10 % (BEAKER) (test code = 431) EOSINOPHILS RELATIVE PERCENT 2 % (BEAKER) (test code = 432) BASOPHILS RELATIVE PERCENT 1 % (BEAKER) (test code = 437) NEUTROPHILS ABSOLUTE COUNT 1.79 K/ L 1.78-5.38 (BEAKER) (test code = 670) LYMPHOCYTES ABSOLUTE COUNT 1.84 K/ L 1.32-3.57 (BEAKER) (test code = 414) MONOCYTES ABSOLUTE COUNT (BEAKER) 0.41 K/ L 0.30-0.82 (test code = 415) EOSINOPHILS ABSOLUTE COUNT 0.08 K/ L 0.04-0.54 (BEAKER) (test code = 416) BASOPHILS ABSOLUTE COUNT (BEAKER) 0.02 K/ L 0.01-0.08 (test code = 417) IMMATURE GRANULOCYTES-RELATIVE 1 % 0-1 PERCENT (BEAKER) (test code = 2801) BASIC METABOLIC [id number] 05:22:00 Test Item Value Reference Range Interpretation Comments SODIUM (BEAKER) 140 meq/L 136-145 (test code = 381) POTASSIUM (BEAKER) 3.5 meq/L 3.5-5.1 (test code = 379) CHLORIDE (BEAKER) 105 meq/L 98-107 (test code = 382) CO2 (BEAKER) (test 25 meq/L 22-29 code = 355) BLOOD UREA NITROGEN 19 mg/dL 7-21 (BEAKER) (test code = 354) CREATININE (BEAKER) 0.89 mg/dL 0.57-1.25 (test code = 358) GLUCOSE RANDOM 134 mg/dL 70-105 H (BEAKER) (test code = 652) CALCIUM (BEAKER) 9.9 mg/dL 8.4-10.2 (test code = 697) EGFR (BEAKER) (test 85 mL/min/1.73 ESTIMA ARIS GFR IS code = 1092) sq m NOT ACCURATE CREATININE CLEARANCE IN PREDICTING GLOMERULAR FILTRATION RATE . ESTIMATED GFR I S NOT APPLICABLE FOR DIALYSIS PATIEN TS. PROTHROMBIN [id number] 05:15:00 Test Item Value Reference Range Interpretation Comments PROTIME (BEAKER) (test code = 13.1 seconds 11.7-14.7 759) INR (BEAKER) (test code = 370) 1.0 <=5.9 RECOMMENDED COUMADIN/WARFARIN INR THERAPY RANGESSTANDARD DOSE: 2.0 - 3.0 Includes: PROPHYLAXIS forvenous thrombosis, systemic embolization; TREATMENT for venous thrombosis and/or pulmonary embolus.HIGH RISK: Target INR is 2.5-3.5 for patients with mechanical heart valves.POCT-GLUCOSE [id number] 00:12:00 Test Item Value Reference Range Interpretation Comments POC-GLUCOSE METER 121 mg/dL 70-110 H TESTED AT [facility] 6720 (BEAKER) (test code = [facility] [place] 1538) [id number]
--- OUTSIDE RECORDS SUMMARY | 2020-03-01 15:29 | XMS REPORT | Summary of Care ---
:1950 Author Organization [facility] Address [address] [place] [address] Care Team Providers Name Role Phone MD Mu Primary Care Provider Reason for Visit Reason Comments Refill Request Encounter Details Date Type Department Care Team Description 12/02/2019 Refill [facility] Pediatric and Juma Dobbins MD Refill Request Adult Primary Care- [address] [place] [address] [place] [address], [address] [place] [address] Allergies Active Allergy Reactions Severity Noted Date Comments Metoclopramide Hcl Rash 06/03/2012 documented as of this encounter (statuses as of 12/03/2019) Medications Medication Sig Dispensed Refills Start End Date Status Date ipratropium 0 Active (ATROVENT) 0.03 % 2 nasal sprayIndications: Type II or unspecified type diabetes mellitus without mention of complication, uncontrolled azelastine 137 mcg Use 1 [place] in 30 mL 5 Active (0.1 %) [...] specified metFORMIN 1,000 mg Take 1 tablet 180 tablet 1 Active tabletIndications: by mouth 2 0 Diabetes mellitus (two) times type 2, uncontrolled, daily. without complications LOVAZA, ehvmq-6-vxma TAKE 4 360 capsule 1 Active ethyl [...] Vomiting (N/V). ONETOUCH ULTRA2 METER Use as 1 Kit 0 Active KitIndications: directed for 0 Diabetes mellitus once a day type 2, uncontrolled, blood glucose without complications monitoring for ICD: E11.9 ONETOUCH SURESOFT Use as 1 Each 0 Ac tive LANCING DEV 28 gauge directed for 0 MiscIndications: once a day Diabetes mellitus blood glucose type 2, uncontrolled, monitoring for without complications ICD: E11.9 ONETOUCH ULTRASOFT Use as 100 Each 0 A ctive LANCETS directed for 0 MiscIndications: once a day Diabetes mellitus blood glucose type 2, uncontrolled, monitoring for without complications ICD: E11.9 blood sugar Use as 100 Strip 0 [...] WITH BREAKFAST type 2, uncontrolled, without complications glimepiride 2 mg Take 1 tablet 30 tablet 1 12/03/19 Discontinued tabletIndications: by mouth daily 0 20 Diabetes mellitus with type 2, uncontrolled, breakfast. without complications documented as of this encounter (statuses as of 12/03/2019) Active Problems Problem Noted Date Stage 2 chronic kidney disease 05/27/2019 Diabetes mellitus type 2, uncontrolled, without compli cations 06/03/2012 Overview: ICD10 Diagnosis Term Heating Systems Installer Utility Essential hypertension, benign 06/03/2012 HLD (hyperlipidemia) 06/03/2012 documented as of this encounter (statuses as of 12/03/2019) Immunizations Name Administration Dates Next Due Pneumococcal [...] filedocumented in this encounter Visit Diagnoses Diagnosis Diabetes mellitus type 2, uncontrolled, without complications documented in this encounter Insurance Payer Benefit Plan / Subscriber ID Effective Phone Address T ype Group Dates MEDICARE MEDICARE PART A [id number] 2013-Pres [phone] Medicare & B ent 82 [id number] [place] [id number] EQUITABLE EQUITABLE [id number] 2017-Yovani spence documented as of this encounter Advance Directives Type Date Recorded Patient Supervisor Park Workers Explanati on Advance Directives and Living Will Power of Ammonia Box Operator
--- OUTSIDE RECORDS SUMMARY | 2020-03-01 15:29 | XMS REPORT | Summary of Care ---
:1950 Author Organization [facility] Address [address] [place] [address] Care Team Providers Name Role Phone MD Mu Primary Care Provider Reason for Visit Reason Comments Refill Request Encounter Details Date Type Department Care Team Description 12/21/2019 Refill [facility] Family Medicine Juma Li MD Refill Request - [address] [place] [address] [place] [address] [phone] Allergies Active Allergy Reactions Severity Noted Date Comments Metoclopramide Hcl Rash 06/03/2012 documented as of this encounter (statuses as of 12/22/2019) Medications Medication Sig Dispensed Refills Start End Date Status Date ipratropium 0 Active (ATROVENT) 0.03 % 2 nasal sprayIndications: Type II or unspecified type diabetes mellitus without mention of complication, uncontrolled azelastine 137 mcg Use 1 [place] in 30 mL 5 Active (0.1 %) [...] reflux disease, esophagitis presence not specified LOVAZA, czxsc-2-qrrx TAKE 4 360 capsule 1 Active ethyl [...] mellitus DAILY type 2, uncontrolled, without complications metFORMIN 1,000 mg Take 1 tablet 180 tablet 1 Discontinued tabletIndications: by mouth 2 0 20 Diabetes mellitus (two) times type 2, uncontrolled, daily. without complications documented as of this encounter (statuses as of 12/22/2019) Active Problems Problem Noted Date Stage 2 chronic kidney disease 05/27/2019 Diabetes mellitus type 2, uncontrolled, without compli cations 06/03/2012 Overview: ICD10 Diagnosis Term Resource Technician Utility Essential hypertension, benign 06/03/2012 HLD (hyperlipidemia) 06/03/2012 documented as of this encounter (statuses as of 12/22/2019) Immunizations Name Administration Dates Next Due Pneumococcal [...] ype Group Dates MEDICARE MEDICARE PART A [id number] 2013-Pres [phone] [address] Medicare & B ent 82 [id number] [place] [id number] EQUITABLE EQUITABLE [id number] 2017-Yovani spence documented as of this encounter Advance Directives Type Date Recorded Patient Search Marketing Analyst Explanati on Advance Directives and Living Will Power of Wire Setter
--- OUTSIDE RECORDS SUMMARY | 2020-03-01 15:30 | XMS REPORT | Summary of Care ---
:1950 Author Organization [facility] Address [address] [place] [address] Care Team Providers Name Role Phone MD Mu Primary Care Provider Reason for Visit Reason Comments Assessment Triage Encounter Details Date Type Department Care Team Description 01/19/2020 Telephone [facility] Family Karla Dobbins MD Assessment (Triage) Medicine [address] [place] [phone] Allergies Active Allergy Reactions Severity Noted Date Comments Metoclopramide Hcl Rash 06/03/2012 documented as of this encounter (statuses as of 01/19/2020) Medications Medication Sig Dispensed Refills Start Date End Date Status ipratropium (ATROVENT) 0 04/15/2012 Active 0.03 % nasal sprayIndications: Type II or unspecified type diabetes mellitus without mention of complication, uncontrolled azelastine 137 mcg Use 1 [place] in 30 mL 5 11/03/2018 Active (0.1 [...] reflux disease, esophagitis presence not specified LOVAZA, qpjpi-3-lble TAKE 4 CAPSULES 360 capsule 1 05/06/2019 [...] mellitus type BREAKFAST 2, uncontrolled, without complications METFORMIN 1,000 mg TAKE 1 TABLET BY 180 tablet 1 12/22/2019 Active tabletIndications: MOUTH TWICE Diabetes mellitus type DAILY 2, uncontrolled, without complications ticagrelor (BRILINTA) Take 1 tablet by 60 tablet 1 12/31/2019 Active 90 mg tablet mouth 2 (two) times daily. documented as of this encounter (statuses as of 01/19/2020) Active Problems Problem Noted Date Stage 2 chronic kidney disease 05/27/2019 Diabetes mellitus type 2, uncontrolled, without compli cations 06/03/2012 Overview: ICD10 Diagnosis Term Radiator Tester Utility Essential hypertension, benign 06/03/2012 HLD (hyperlipidemia) 06/03/2012 documented as of this encounter (statuses as of 01/19/2020) Immunizations Name Administration Dates Next Due Pneumococcal 13 Conjugate, PCV13 (Prevnar 13) 11/04/2019 documented as of this encounter Social History Tobacco Use Types Packs/Day Years Used Date Former Smoker Smokeless Tobacco: Former User Q uit: 06/03/1987 Comments: quit 1987 Alcohol Use Drinks/Week oz/Week Comments Yes occasional beer Sex Assigned at Date Recorded Not on file documented as of this encounter Last Filed Vital Signs Not on filedocumented in this encounter Miscellaneous Notes Telephone Encounter - Diana Angeles LVN - [facility]2020 [facility] just needs to report out of perimeter vitals, BP currently 170/90 asymptomatic, and FBS this am was 233 asymptomatic. Also she is going to increase the weight perimeter by 5 pounds today they are re-certifying him. elephone Encounter - Jenn Perez - 01/19/2020 10:51 AM CDTDonna with [facility] is currently with patient doing a recertification evaluation. Farideh stat es currently glucose 233 fasting and bp 170/ 90 and states symptoms. PSS Lynne to triage to pass to nurse. documented in this encounter Plan of Treatment [...] ype Group Dates MEDICARE MEDICARE PART A [id number] 2013-Pres [phone] [address] Medicare & B ent 82 [id number] [place] [id number] EQUITABLE EQUITABLE [id number] 2017-Yovani spence documented as of this encounter Advance Directives Type Date Recorded Patient Business Solutions Analyst Explanati on Advance Directives and Living Will Power of Global Manager
--- OUTSIDE RECORDS SUMMARY | 2020-03-01 15:30 | XMS REPORT | Summary of Care ---
:1950 Author Organization [facility] Address [address] [place] [address] Care Team Providers Name Role Phone MD Mu Primary Care Provider Reason for Visit Reason Comments Assessment Encounter Details Date Type Department Care Team Description 01/14/2020 Telephone [facility] Family Medicine Juma Li MD Assessment - [address] [place] [facility] [address] [place] [address] [phone] Allergies Active Allergy Reactions Severity Noted Date Comments Metoclopramide Hcl Rash 06/03/2012 documented as of this encounter (statuses as of 01/14/2020) Medications Medication Sig Dispensed Refills Start Date End Date Status ipratropium (ATROVENT) 0 04/15/2012 Active 0.03 % nasal sprayIndications: Type II or unspecified type diabetes mellitus without mention of complication, uncontrolled azelastine 137 mcg Use 1 [place] in 30 mL 5 11/03/2018 Active (0.1 [...] reflux disease, esophagitis presence not specified LOVAZA, bytuz-0-mlph TAKE 4 CAPSULES 360 capsule 1 05/06/2019 [...] as of this encounter (statuses as of 01/14/2020) Active Problems Problem Noted Date Stage 2 chronic kidney disease 05/27/2019 Diabetes mellitus type 2, uncontrolled, without compli cations 06/03/2012 Overview: ICD10 Diagnosis Term Gas Flow Regulator Utility Essential hypertension, benign 06/03/2012 HLD (hyperlipidemia) 06/03/2012 documented as of this encounter (statuses as of 01/14/2020) Immunizations Name Administration Dates Next Due Pneumococcal [...] Notes Telephone Encounter - Antoinette Irvin - 01/14/2020 7:59 [facility] placed in nurse box documented in this [...] ype Group Dates MEDICARE MEDICARE PART A [id number] 2013-Pres [phone] Medicare & B ent 82 [id number] [place] [phone] EQUITABLE EQUITABLE [id number] 2017-Yovani spence documented as of this encounter Advance Directives Type Date Recorded Patient Microbiology Technologist Explanati on Advance Directives and Living Will Power of Distillery Manager
--- OUTSIDE RECORDS SUMMARY | 2020-03-01 15:30 | XMS REPORT | Summary of Care ---
:1950 Author Organization [facility] - Health Address [address] [place] [address] Care Team Providers Name Role Phone MD Mu Primary Care Provider Encounter Details Date Type Department Care Team Description 01/13/2020 Orders Only [facility] Doctor Unassigned, No [address] [facility] [place] [address] [place] [address] Allergies Active Allergy Reactions Severity Noted Date Comments Metoclopramide Hcl Rash 06/03/2012 documented as of this encounter (statuses as of 01/22/2020) Medications Medication Sig Dispensed Refills Start Date End Date Status ipratropium (ATROVENT) 0 04/15/2012 Active 0.03 % nasal sprayIndications: Type II or unspecified type diabetes mellitus without mention of complication, uncontrolled azelastine 137 mcg Use 1 [place] in 30 mL 5 11/03/2018 Active (0.1 [...] reflux disease, esophagitis presence not specified LOVAZA, iqecr-9-wqsq TAKE 4 CAPSULES 360 capsule 1 05/06/2019 [...] as of this encounter (statuses as of 01/22/2020) Active Problems Problem Noted Date Stage 2 chronic kidney disease 05/27/2019 Diabetes mellitus type 2, uncontrolled, without compli cations 06/03/2012 Overview: ICD10 Diagnosis Term Kerrick Kleaner Operator Utility Essential hypertension, benign 06/03/2012 HLD (hyperlipidemia) 06/03/2012 documented as of this encounter (statuses as of 01/22/2020) Immunizations Name Administration Dates Next Due Pneumococcal [...] Comme nts HOME HEALTH - OTHER Routine 01/13/2020 12:01 AM CDT HOME HEALTH - OTHER Routine 01/13/2020 12:01 AM CDT documented in this encounter Results Not on filedocumented in this encounter Insurance Payer Benefit Plan / Subscriber ID Effective Phone Address T ype Group Dates MEDICARE MEDICARE PART A [id number] 2013-Pres [phone] [address] Medicare & B [facility] 82 [id number] [place] [phone] EQUITABLE EQUITABLE [id number] 2017-Yovani spence documented as of this encounter Advance Directives Type Date Recorded Patient Gun Repair Clerk Explanati on Advance Directives and Living Will Power of Multiple Spindle Router Operator
--- OUTSIDE RECORDS SUMMARY | 2020-03-01 15:30 | XMS REPORT | Summary of Care ---
:1950 Author Organization [facility] Address [address] [place] [address] Care Team Providers Name Role Phone MD Mu Primary Care Provider Reason for Visit Reason Comments Assessment Encounter Details Date Type Department Care Team Description 01/14/2020 Telephone [facility] Family Medicine Juma Li MD Assessment - [address] [place] [facility] [address] [place] [address] [phone] Allergies Active Allergy Reactions Severity Noted Date Comments Metoclopramide Hcl Rash 06/03/2012 documented as of this encounter (statuses as of 01/14/2020) Medications Medication Sig Dispensed Refills Start Date End Date Status ipratropium (ATROVENT) 0 04/15/2012 Active 0.03 % nasal sprayIndications: Type II or unspecified type diabetes mellitus without mention of complication, uncontrolled azelastine 137 mcg Use 1 [place] in 30 mL 5 11/03/2018 Active (0.1 [...] reflux disease, esophagitis presence not specified LOVAZA, bagfg-8-lfpq TAKE 4 CAPSULES 360 capsule 1 05/06/2019 [...] compli cations 06/03/2012 Overview: ICD10 Diagnosis Term Community Recreation Programmer Utility Essential hypertension, benign 06/03/2012 HLD (hyperlipidemia) [...] Telephone Encounter - Antoinette Irvin - 01/14/2020 2:31 PM [facility] note report placed in nurse box documented [...] ype Group Dates MEDICARE MEDICARE PART A [id number] 2013-Pres [phone] [address] Medicare & B ent 82 [id number] [place] [id number] EQUITABLE EQUITABLE [id number] 2017-Yovani spence documented as of this encounter Advance Directives Type Date Recorded Patient Electronic Prepress Technician Explanati on Advance Directives and Living Will Power of Outside Laborer
--- OUTSIDE RECORDS SUMMARY | 2020-03-01 15:30 | XMS REPORT | Summary of Care ---
:1950 Author Organization [facility] - Health Address [address] [place] [address] Care Team Providers Name Role Phone MD Mu Primary Care Provider Encounter Details Date Type Department Care Team Description 12/10/2019 Orders Only [facility] Doctor Unassigned, No [address] [facility] [place] [address] [place] [id number] Allergies Active Allergy Reactions Severity Noted Date Comments Metoclopramide Hcl Rash 06/03/2012 documented as of this encounter (statuses as of 01/05/2020) Medications Medication Sig Dispensed Refills Start Date End Date Status ipratropium (ATROVENT) 0 04/15/2012 Active 0.03 % nasal sprayIndications: Type II or unspecified type diabetes mellitus without mention of complication, uncontrolled azelastine 137 mcg Use 1 [place] in 30 mL 5 11/03/2018 Active (0.1 [...] reflux disease, esophagitis presence not specified LOVAZA, [id number] TAKE 4 CAPSULES 360 capsule 1 05/06/2019 [...] as of this encounter (statuses as of 01/05/2020) Active Problems Problem Noted Date Stage 2 chronic kidney disease 05/27/2019 Diabetes mellitus type 2, uncontrolled, without compli cations 06/03/2012 Overview: ICD10 Diagnosis Term Stroke Program Coordinator Utility Essential hypertension, benign 06/03/2012 HLD (hyperlipidemia) 06/03/2012 documented as of this encounter (statuses as of 01/05/2020) Immunizations Name Administration Dates Next Due Pneumococcal [...] Comme nts HOME HEALTH - OTHER Routine 12/10/2019 12:01 AM CDT documented in this encounter Results Not on filedocumented in this encounter Additional Health Concerns Infection Onset Date Last Indicated Resolved Time COVID-19 Rule Out 12/09/2019 12/09/2019 12/10/2019 2: 24 AM CDT documented as of this encounter Insurance Payer Benefit Plan / Subscriber ID Effective Phone Address T ype Group Dates MEDICARE MEDICARE PART A [id number] 2013-Pres [phone] Medicare & B [facility] 82 [id number] [place] [id number] EQUITABLE EQUITABLE [id number] 2017-Yovani spence documented as of this encounter Advance Directives Type Date Recorded Patient Vp Training Explanati on Advance Directives and Living Will Power of Food Vendor
--- OUTSIDE RECORDS SUMMARY | 2020-03-01 15:31 | XMS REPORT | Summary of Care ---
:1950 Author Organization [facility] Address [address] [place] [address] Care Team Providers Name Role Phone MD Mu Primary Care Provider Reason for Visit Reason Comments Orders Encounter Details Date Type Department Care Team Description 02/02/2020 Telephone [facility] Family Medicine Juma Li MD Orders - [address] [place] [address] [place] [phone] Allergies Active Allergy Reactions Severity Noted Date Comments Metoclopramide Hcl Rash 06/03/2012 documented as of this encounter (statuses as of 02/02/2020) Medications Medication Sig Dispensed Refills Start Date End Date Status ipratropium (ATROVENT) 0 04/15/2012 Active 0.03 % nasal sprayIndications: Type II or unspecified type diabetes mellitus without mention of complication, uncontrolled azelastine 137 mcg Use 1 [place] in 30 mL 5 11/03/2018 Active (0.1 [...] reflux disease, esophagitis presence not specified LOVAZA, [id number] TAKE 4 CAPSULES 360 capsule 1 05/06/2019 [...] mg tablet mouth 2 (two) times daily. olopatadine (PATADAY) Place 1 Drop in 5 mL 0 01/25/2020 Active 0.1 % ophthalmic both eyes 2 solutionIndications: (two) times Allergic daily. conjunctivitis of both eyes hydrOXYzine 25 mg Take 1 tablet by 30 tablet 0 01/25/2020 Active tabletIndications: mouth every 6 Itchy skin (six) hours as needed for Itching. documented as of this encounter (statuses as of 02/02/2020) Active Problems Problem Noted Date Stage 2 chronic kidney disease 05/27/2019 Diabetes mellitus type 2, uncontrolled, without compli cations 06/03/2012 Overview: ICD10 Diagnosis Term Navy Material Inspector Utility Essential hypertension, benign 06/03/2012 HLD (hyperlipidemia) 06/03/2012 documented as of this encounter (statuses as of 02/02/2020) Immunizations Name Administration Dates Next Due Pneumococcal [...] been in contact with No / Unsure 01/25/2020 6:41 PM CDT someone who was confirmed or suspected to have Coronavirus / COVID-19? documented as of this encounter Last Filed Vital Signs Not on filedocumented in this encounter Miscellaneous Notes Telephone Encounter - Diana Angeles LVN - 02/02/2020 3:59 PM CDTNicole says they never received the 485 from December, I advised everything has been sent back she will send via my email for Dr pollack. elephone Encounter - Lucia Pike - 02/02/2020 10:57 AM CDTNicole with [facility] health calling to check on status of home health orders. Please contact Amy at [phone] signed by Lucia Pike at 02/02/2020 10:58 AM CDTdocumented in this encounter Plan of Treatment Health Maintenance Due Date Last Done Comments EYE EXAM 02/24/1958 FOOT EXAM 02/24/1966 DTaP,Tdap,and Td Vaccines (1 - 02/24/1967 Tdap) COLON CANCER SCREENING ANNUAL 02/24/1998 FIT/FOBT COLON CANCER SCREENING FIT DNA 02/24/1998 EVERY 3 YEARS COLON CANCER SCREENING 02/24/1998 SIGMOIDOSCOPY EVERY 5 YEARS Zoster Recombinant Vaccine 02/24/1998 (SHINGRIX) (1 of 2) URINE MICROALBUMIN 11/02/2016 11/03/2015 INFLUENZA VACCINE (#1) 2019 LDL-C 05/06/2020 05/06/2019, 05/06/2018, 09/12/2017, Additional history exists HgA1C 07/29/2020 01/29/2020, 05/06/2019, 05/06/2018, Additional history exists LUNG CANCER SCREEN: Recommended 10/15/2020 10/16/2019 for age 55-80 with 30 + pack year history Depression Screening 11/03/2020 11/04/2019 Medicare Wellness Visit 11/03/2020 11/04/2019, 11/04/2019 PNEUMOCOCCAL VACCINES 65+ (2 of 2 11/03/2020 11/04/2019 - PPSV23) CREATININE (SERUM) 01/28/2021 01/29/2020, 05/22/2019, 05/06/2019, Additional history exists COLONOSCOPY 09/07/2029 09/08/2019 Colorectal Cancer Screening 09/07/2029 HEPATITIS C (HCV) SCREEN Completed 11/04/2019 documented as of this encounter Results Not on filedocumented in this encounter Insurance Payer Benefit Plan / Subscriber ID Effective Phone Address T ype Group Dates MEDICARE MEDICARE PART A [id number] 2013-Pres [phone] [address] Medicare & B ent 82 [id number] [place] [id number] EQUITABLE EQUITABLE [id number] 2017-Yovani spence documented as of this encounter Advance Directives Type Date Recorded Patient Fence Setter Explanati on Advance Directives and Living Will Power of Legal Collector
--- OUTSIDE RECORDS SUMMARY | 2020-03-01 15:31 | XMS REPORT | Summary of Care ---
:1950 Author Organization [facility] Address [address] [place] [address] Care Team Providers Name Role Phone MD Mu Primary Care Provider Reason for Visit Reason Comments LAB WORK Encounter Details Date Type Department Care Team Description 01/29/2020 Mobile Phone Salesperson Visit [facility] Family Varsha Dobbins MD [address] [place] [phone] Type 2 diabetes Medicine - [facility], Adc Fam Pob I mellitus without [address] [facility] complicati on, Drive unspecified whether [place], [place] [phone] use [phone] Allergies Active Allergy Reactions Severity Noted Date Comments Metoclopramide Hcl Rash 06/03/2012 documented as of this encounter (statuses as of 01/29/2020) Medications Medication Sig Dispensed Refills Start Date End Date Status ipratropium (ATROVENT) 0 04/15/2012 Active 0.03 % nasal sprayIndications: Type II or unspecified type diabetes mellitus without mention of complication, uncontrolled azelastine 137 mcg Use 1 [place] in 30 mL 5 11/03/2018 Active (0.1 [...] reflux disease, esophagitis presence not specified LOVAZA, jryhe-6-[id number] TAKE 4 CAPSULES 360 capsule 1 05/06/2019 [...] as of this encounter (statuses as of 01/29/2020) Active Problems Problem Noted Date Stage 2 chronic kidney disease 05/27/2019 Diabetes mellitus type 2, uncontrolled, without compli cations 06/03/2012 Overview: ICD10 Diagnosis Term Housekeeping Aide Utility Essential hypertension, benign 06/03/2012 HLD (hyperlipidemia) 06/03/2012 documented as of this encounter (statuses as of 01/29/2020) Immunizations Name Administration Dates Next Due Pneumococcal [...] on filedocumented in this encounter Nursing Notes Veronica Canseco - 01/29/2020 9:10 AM CDT Venipuncture collection performed by clean technique on the left anticubitus. Total of 1 attempts were made. Slight pressure and a bandage/dressing were applied to the site(s). The patient experienced no complications. The following specimens were processed according to instructions and sent to [facility] laboratories per lab order on TODAY: LT BLUE SST 1 RED LAV 1 PPT DK GREEN (LiHep) DK GREEN (SodH) WHITE DK BLUE (K2) DK BLUE (S) ACD Blood Culture NIPT/NTD documented in this encounter Plan of Treatment [...] filedocumented in this encounter Visit Diagnoses Diagnosis Type 2 diabetes mellitus without complic ation, unspecified whether intermediate teacher insulin use documented in this encounter Insurance Payer Benefit Plan / Subscriber ID Effective Phone Address T ype Group Dates MEDICARE MEDICARE PART A [id number] 2013-Pres [phone] [address] Medicare & B [facility] 82 [id number] [place]OPER [phone] EQUITABLE EQUITABLE [id number] 2017-Yovani spence documented as of this encounter Advance Directives Type Date Recorded Patient Fishing Vessel Captain Explanati on Advance Directives and Living Will Power of Approver
--- OUTSIDE RECORDS SUMMARY | 2020-03-01 15:31 | XMS REPORT | Summary of Care ---
:1950 Author Organization [facility] Address [address] [place] [address] Care Team Providers Name Role Phone MD Mu Primary Care Provider Reason for Visit Reason Comments Eye Problem watery and itchy eyes Encounter Details Date Type Department Care Team Description 01/25/2020 Urgent Care [facility] Lu CedilloGENIE [address] [facility] [address] [place], [place] [id number] Allergic conjunctivitis of both eyes (Pr imary Dx); Medicine [facility] Provider, [facility] Itchy skin [address] [place] [address] Allergies Active Allergy Reactions Severity Noted Date Comments Metoclopramide Hcl Rash 06/03/2012 documented as of this encounter (statuses as of 01/25/2020) Medications Medication Sig Dispensed Refills Start Date End Date Status ipratropium (ATROVENT) 0 04/15/2012 Active 0.03 % nasal sprayIndications: Type II or unspecified type diabetes mellitus without mention of complication, uncontrolled azelastine 137 mcg Use 1 [place] in 30 mL 5 11/03/2018 Active (0.1 [...] reflux disease, esophagitis presence not specified LOVAZA, trlme-2-lwac TAKE 4 CAPSULES 360 capsule 1 05/06/2019 [...] as of this encounter (statuses as of 01/25/2020) Active Problems Problem Noted Date Stage 2 chronic kidney disease 05/27/2019 Diabetes mellitus type 2, uncontrolled, without compli cations 06/03/2012 Overview: ICD10 Diagnosis Term Manager Distribution Utility Essential hypertension, benign 06/03/2012 HLD (hyperlipidemia) 06/03/2012 documented as of this encounter (statuses as of 01/25/2020) Immunizations Name Administration Dates Next Due Pneumococcal [...] of this encounter Last Filed Vital Signs Vital Sign Reading Time Taken Comments Blood Pressure 157/63 01/25/2020 6:48 PM CDT Pulse 68 01/25/2020 6:45 PM CDT Temperature 35.6 C (96 F) 01/25/2020 6:45 PM CDT Respiratory Rate 20 01/25/2020 6:45 PM CDT Oxygen Saturation 97% 01/25/2020 6:45 PM CDT Inhaled Oxygen Concentration - - Weight 111.1 kg (245 lb) 01/25/2020 6:45 PM CDT Height 180.3 cm (5' 11") 01/25/2020 6:45 PM CDT Body Mass Index 34.17 01/25/2020 6:45 PM CDT documented in this encounter Patient Instructions Patient InstructionsGrLu bradley FNP - 01/25/2020 6:40 PM CDT1. Allergic conjunctivitis of both eyes - olopatadine (PATADAY) 0.1 % ophthalmic solution; Place 1 Drop in both eyes 2 (two) times daily. Dispense: 5 mL; Refill: 0 - you can take otc antihistamine such as claritin or zyrtec once daily. 2. Itchy skin - hydrOXYzine 25 mg tablet; Take 1 tablet by mouth every 6 (six) hours as needed for Itching. Dispense: 30 tablet; Refill: 0 - Follow up with PCP, urgent care or ER in 2-3 days or sooner if symptoms do now improve or worsens.Patient/parent verbalized understanding and agreed with plan of care. Plan of care, desired health behaviors, goals, and medication discussed with patient. Education resources provided and reviewed with AVS. Patient/guardian/family verbalized understanding & agrees to plan of care. Urgent Care precautions and follow up : 1. Return to clinic if your symptoms should worsen or fail to improve within 72 hours. 2. The care provided in the urgent care was for acute problems only. 3. You should follow up with your primary care provider within 72 hours. 4. Fill and take all your medications as prescribed. 5. Make sure you are staying adequately hydrated. MAY FOLLOW-UP WITH A PROVIDER OF YOUR CHOICE, SUCH : 1. A PHYSICIAN OF YOUR CHOICE OR, IF YOU WISH TO FOLLOW-UP WITHIN THE [facility], MAY TRY THESE OPTIONS (CLINIC APPOINTMENTS AVAILABLE ON [id number] BASIS): 1. SCHEDULE AN APPOINTMENT ONLINE AT WWW[facility] 2. OR CALL THE [facility] ACCESS CENTER AT OR 3. OR CALL YOUR [facility] PHYSICIAN'S OFFICE DIRECTLY IF YOU ARE ALREADY AN ESTABLISHED [facility] PATIENT. After [facility] care nurse access center available by calling [phone] 24 hours 7 days per week. Lu [facility] documented in this encounter Progress Notes Lu Marin FNP - 01/25/2020 6:40 PM CDT Cc: Chief Complaint Patient presents with Eye Problem watery and itchy eyes Shivam Sykes is a 69 year old male presents with concern for itchy, watery eyes. He started about1 months ago with itchy watery eyes right > left. He's not tried any otc medications. Also runny nose. He itches all over for about 3-4 weeks. Denies any fever, chills or body aches. Denies any vision changes. Eating/drinking good. Eye Problem Location: Both eyes Quality: Burning Severity: Mild Onset quality: Gradual Duration: 1 month Timing: Intermittent Progression: Unchanged Chronicity: New Context: not contact lens problem, not direct trauma, not foreign body and not using machinery Relieved by: None tried Worsened by: Nothing Ineffective treatments: None tried Associated symptoms: discharge, itching and redness Associated symptoms: no blurred vision, no crusting, no decreased vision, no double vision, no facial rash, no headaches, no nausea, no numbness, no photophobia, no scotomas, no swelling, no tearing, no tingling, no vomiting and no weakness Itching: Location: Scalp Severity: Mild Onset quality: Gradual Duration: 3 weeks Timing: Intermittent Progression: Unchanged Risk factors: no conjunctival hemorrhage, no exposure to pinkeye and no previous injury to eye Allergies Shivam is allergic to reglan [metoclopramide hcl]. Medications Outpatient Medications Prior to Visit Medication Sig Dispense Refill ticagrelor (BRILINTA) 90 mg tablet Take 1 tablet by mouth 2 (two) times daily. 60 tablet 1 METFORMIN 1,000 mg tablet TAKE 1 TABLET BY MOUTH TWICE DAILY 180 tablet 1 GLIMEPIRIDE 2 mg tablet TAKE 1 TABLET BY MOUTH DAILY WITH BREAKFAST 30 tablet 1 amLODIPine 5 mg tablet Take 1 tablet by mouth daily. 30 tablet 5 metoprolol tartrate 25 mg tablet Take 1 tablet by mouth 2 (two) times daily. 60 tablet 5 blood sugar diagnostic (ONETOUCH ULTRA BLUE TEST STRIP) strip Use as directed for twice a day blood glucose monitoring for ICD: E11.9 100 Strip 0 ONETOUCH SURESOFT LANCING DEV 28 gauge Misc Use as directed for once a day blood glucose monitoring for ICD: E11.9 1 Each 0 ONETOUCH ULTRA2 METER Kit Use as directed for once a day blood glucose monitoring for ICD: E11.91 Kit 0 ONETOUCH ULTRASOFT LANCETS Misc Use as directed for once a day blood glucose monitoring for ICD:E11.9 100 Each 0 etodolac 500 mg tablet Take 1 tablet by mouth 2 (two) times daily. 180 tablet 1 lisinopril 10 mg tablet Take 1 tablet by mouth every morning. 90 tablet 0 LOVAZA, vcroz-4-dqta ethyl esters, 1 gram capsule TAKE 4 CAPSULES BY MOUTH EVERY DAY 360 capsule1 omeprazole 40 mg capsule TAKE 1 CAPSULE BY MOUTH DAILY 90 capsule 0 ondansetron (ZOFRAN) 4 mg tablet Take 1 tablet by mouth every 8 (eight) hours as needed for Nausea and Vomiting (N/V). 30 tablet 1 tamsulosin 0.4 mg 24 hr capsule Take 1 capsule by mouth daily. 90 capsule 1 azelastine 137 mcg (0.1 %) nasal spray Use 1 [place] in each nostril 2 (two) times daily. Use in each nostril as directed 30 mL 5 ipratropium (ATROVENT) 0.03 % nasal spray No facility-administered medications prior to visit. Histories Past Medical History: Diagnosis Date Cancer kidney Coronary artery disease DM w/o complication type II 2009 Gout HLD (hyperlipidemia) HTN (hypertension) GA, old 2000 Obesity Sleep apnea Past Surgical History: Procedure Laterality Date NEPHRECTOMY Left 2019 STENT PLACEMENT (SHX) 2000 2 cardiac stents Social History Socioeconomic History Marital status: Spouse name: Not on file Number of children: Not on file Years of education: Not on file Highest education level: Not on file Occupational History Not on file Social Needs Financial resource strain: Not on file Food insecurity Worry: Not on file Inability: Not on file Transportation needs Medical: Not on file Non-medical: Not on file Tobacco Use Smoking status: Former Smoker Smokeless tobacco: Former User Quit date: 06/03/1987 Tobacco comment: quit 1987 Substance and Sexual Activity Alcohol use: Yes Comment: occasional beer Drug use: No Sexual activity: Not on file Lifestyle Physical activity Days per week: Not on file Minutes per session: Not on file Stress: Not on file Relationships Social connections Talks on phone: Not on file Gets together: Not on file Attends pentecostalism service: Not on file Active member of club or organization: Not on file Attends meetings of clubs or organizations: Not on file Relationship status: Not on file Intimate partner violence Fear of current or ex partner: Not on file Emotionally abused: Not on file Physically abused: Not on file Forced sexual activity: Not on file Other Topics Concern Not on file Social History Narrative ; lives alone in his house; has 2 adult children who live in [facility]; 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 HENT: Negative for congestion, postnasal drip, rhinorrhea, sneezing and sore throat. Eyes: Positive for discharge, redness and itching. Negative for blurred vision, double vision, photophobia, pain and visual disturbance. Respiratory: Negative for cough, shortness of breath, wheezing and stridor. Gastrointestinal: Negative for diarrhea, nausea and vomiting. Musculoskeletal: Negative for myalgias. Skin: Negative for rash. Neurological: Negative for dizziness, tingling, weakness, numbness and headaches. All other systems reviewed and are negative. Vital Signs BP (!) 157/63 | Pulse 68 | Temp 35.6 C (96 F) (Oral) | Resp 20 | Ht 5' 11" (1.803 m) | Wt 245 lb (111.1 kg) | SpO2 97% | BMI 34.17 kg/m Physical Exam Vitals signs and nursing note reviewed. Constitutional: Appearance: He is well-developed. HENT: Head: Normocephalic and atraumatic. Right Ear: Tympanic membrane, ear canal and external ear normal. Left Ear: Tympanic membrane, ear canal and external ear normal. Nose: Rhinorrhea present. No nasal tenderness. Mouth/Throat: Lips: Duarte. Mouth: Mucous membranes are moist. Pharynx: Oropharynx is clear. No pharyngeal swelling, oropharyngeal exudate, posterior oropharyngeal erythema or uvula swelling. Tonsils: 1+ on the right. 1+ on the left. Eyes: General: Vision grossly intact. No visual field deficit. Extraocular Movements: Extraocular movements intact. Conjunctiva/sclera: Conjunctivae normal. Pupils: Pupils are equal, round, and reactive to light. Neck: Musculoskeletal: Normal range of motion and neck supple. Cardiovascular: Rate and Rhythm: Normal rate and regular rhythm. Heart sounds: Normal heart sounds. No murmur. No friction rub. No gallop. Pulmonary: Effort: Pulmonary effort is normal. No respiratory distress. Breath sounds: Normal breath sounds. No decreased breath sounds, wheezing, rhonchi or rales. Musculoskeletal: Normal range of motion. Skin: General: Skin is warm and dry. Findings: No rash. Neurological: Mental Status: He is alert and oriented to person, place, and time. Psychiatric: Behavior: Behavior normal. Assessment/Plan Shivam Sykes is a 69 year old male presents with concern for itchy, watery eyes. 1. Allergic conjunctivitis of both eyes - olopatadine (PATADAY) 0.1 % ophthalmic solution; Place 1 Drop in both eyes 2 (two) times daily. Dispense: 5 mL; Refill: 0 - you can take otc antihistamine such as claritin or zyrtec once daily. 2. Itchy skin - hydrOXYzine 25 mg tablet; Take 1 tablet by mouth every 6 (six) hours as needed for Itching. Dispense: 30 tablet; Refill: 0 - Follow up with PCP, urgent care or ER in 2-3 days or sooner if symptoms do now improve or worsens.Patient/parent verbalized understanding and agreed with plan of care. Plan of care, desired health behaviors, goals, and medication discussed with patient. Education resources provided and reviewed with AVS. Patient/guardian/family verbalized understanding & agrees to plan of care. Urgent Care precautions and follow up : 1. Return to clinic if your symptoms should worsen or fail to improve within 72 hours. 2. The care provided in the urgent care was for acute problems only. 3. You should follow up with your primary care provider within 72 hours. 4. Fill and take all your medications as prescribed. 5. Make sure you are staying adequately hydrated. MAY FOLLOW-UP WITH A PROVIDER OF YOUR CHOICE, SUCH : 1. A PHYSICIAN OF YOUR CHOICE OR, IF YOU WISH TO FOLLOW-UP WITHIN THE [facility], MAY TRY THESE OPTIONS (CLINIC APPOINTMENTS AVAILABLE ON [id number] BASIS): 1. SCHEDULE AN APPOINTMENT ONLINE AT WWW[facility] 2. OR CALL THE [facility] ACCESS CENTER AT OR 3. OR CALL YOUR [facility] PHYSICIAN'S OFFICE DIRECTLY IF YOU ARE ALREADY AN ESTABLISHED [facility] PATIENT. After hours care nurse access center available by calling [phone] 24 hours 7 days per week. Lu [facility] documented in this encounter Plan of Treatment [...] filedocumented in this encounter Visit Diagnoses Diagnosis Allergic conjunctivitis of both eyes - P rimary Other chronic allergic conjunctivitis Itchy skin Unspecified pruritic disorder documented in this encounter Insurance Payer Benefit Plan / Subscriber ID Effective Phone Address T ype Group Dates MEDICARE MEDICARE PART A [id number] 2013-Pres [phone] Medicare & B ent 82 [id number] [place] [id number] EQUITABLE EQUITABLE [id number] 2017-Yovani spence documented as of this encounter Advance Directives Type Date Recorded Patient Claims Technician Explanati on Advance Directives and Living Will Power of Tactical/Mobile Watch Officer
--- OUTSIDE RECORDS SUMMARY | 2020-03-01 15:31 | XMS REPORT | Summary of Care ---
:1950 Author Organization [facility] - [facility] Address [address] [place] [id number] Care Team Providers Name Role Phone MD Mu Primary Care Provider Reason for Visit Reason Comments Forms Encounter Details Date Type Department Care Team Description 02/05/2020 Telephone [facility] Family Medicine Juma Li MD Forms - [address] [place] [facility] [place] [address] [place] [address] [phone] Allergies Active Allergy Reactions Severity Noted Date Comments Metoclopramide Hcl Rash 06/03/2012 documented as of this encounter (statuses as of 02/05/2020) Medications Medication Sig Dispensed Refills Start Date End Date Status ipratropium (ATROVENT) 0 04/15/2012 Active 0.03 % nasal sprayIndications: Type II or unspecified type diabetes mellitus without mention of complication, uncontrolled azelastine 137 mcg Use 1 [place] in 30 mL 5 11/03/2018 Active (0.1 [...] reflux disease, esophagitis presence not specified LOVAZA, [id number]-[id number] TAKE 4 CAPSULES 360 capsule 1 05/06/2019 [...] as of this encounter (statuses as of 02/05/2020) Active Problems Problem Noted Date Stage 2 chronic kidney disease 05/27/2019 Diabetes mellitus type 2, uncontrolled, without compli cations 06/03/2012 Overview: ICD10 Diagnosis Term Cigarette And Filter Chief Inspector Utility Essential hypertension, benign 06/03/2012 HLD (hyperlipidemia) 06/03/2012 documented as of this encounter (statuses as of 02/05/2020) Immunizations Name Administration Dates Next Due Pneumococcal [...] Telephone Encounter - Diana Angeles LVN - 02/05/2020 1:26 PM CDTI spoke with Elizabeth, she is missing pages on the 09/23/2019 485, we do not have that one scanned in his chart she will fax again to be resigned and faxed back elephone Encounter - Lucia Pike - 02/05/2020 11:51 AM CDTEileaishwarya with [facility] is requesting the orders back on September 23, 2019 refaxed due to only recei ving 3 pages. If you have any further questions or concerns please contact Elizabeth at [phone]. [id number] signed by Lucia Pike at 02/05/2020 11:54 AM CDTdocumented in this encounter Plan of [...] ype Group Dates MEDICARE MEDICARE PART A [id number] 2013-Pres [phone] Medicare & B ent 82 [id number] [place] [id number] EQUITABLE EQUITABLE [id number] 2017-Yovani spence documented as of this encounter Advance Directives Type Date Recorded Patient Client Insights Consultant Explanati on Advance Directives and Living Will Power of Actionscript Developer
--- OUTSIDE RECORDS SUMMARY | 2020-03-01 15:31 | XMS REPORT | Summary of Care ---
:1950 Author Organization [facility] Address [address] [place] [address] Care Team Providers Name Role Phone MD Mu Primary Care Provider Reason for Visit Reason Comments Orders Encounter Details Date Type Department Care Team Description 01/27/2020 Telephone [facility] Family Medicine Juma Li MD Orders - [address] [place] [address] [place] [address] [phone] Allergies Active Allergy Reactions Severity Noted Date Comments Metoclopramide Hcl Rash 06/03/2012 documented as of this encounter (statuses as of 01/28/2020) Medications Medication Sig Dispensed Refills Start Date End Date Status ipratropium (ATROVENT) 0 04/15/2012 Active 0.03 % nasal sprayIndications: Type II or unspecified type diabetes mellitus without mention of complication, uncontrolled azelastine 137 mcg Use 1 [place] in 30 mL 5 11/03/2018 Active (0.1 [...] reflux disease, esophagitis presence not specified LOVAZA, yraoy-[id number] TAKE 4 CAPSULES 360 capsule 1 05/06/2019 [...] as of this encounter (statuses as of 01/28/2020) Active Problems Problem Noted Date Stage 2 chronic kidney disease 05/27/2019 Diabetes mellitus type 2, uncontrolled, without compli cations 06/03/2012 Overview: ICD10 Diagnosis Term Underlay Stitcher Utility Essential hypertension, benign 06/03/2012 HLD (hyperlipidemia) 06/03/2012 documented as of this encounter (statuses as of 01/28/2020) Immunizations Name Administration Dates Next Due Pneumococcal [...] Telephone Encounter - Diana Angeles LVN - 01/28/2020 9:57 AM CDTLabs ordered, patient notified he will come tomorrow for the labs. elephone Encounter - Juma Deleon MD - 01/28/2020 6:45 AM CDTI would like a BMP and [id number] signed by Juma Deleon MD at 01/28/2020 6:45 AM CDTTelephone Encounter - Jenn Perez - 01/27/2020 11:29 AM CDTPt is wanting to know if DR DELEON is wanting him to do labs for glucose issues. Pt did not want to make appointment. Pt was not sure if DR DELEON would like to put in orders for labs to check for glucose. Pt states home health comes out and tells him that his glucose is at 170 to 229 some days. Pt states currently no symptoms. documented in this encounter Plan of Treatment Name Type Priority Associated Diagnoses Order S chedule BASIC METABOLIC PANEL (NA, LAB Routine Type 2 diabete s mellitus Expected: 01/28/2020, K, CL, CO2, GLUCOSE, BUN, without complic ation, Expires: 01/27/2021 CREATININE, CA) unspecified whether terminal manager insulin use GLYCOSYLATED HEMOGLOBIN LAB Routine Type 2 diabetes m ellitus Expected: 01/28/2020, (A1C) without complication, s: 01/27/2021 unspecified whether terminal manager insulin use Health Maintenance Due Date Last Done Comments [...] diabetes mellitus without complic ation, unspecified whether assisted insulin use - Primary documented in this encounter Insurance Payer Benefit Plan / Subscriber ID Effective Phone Address T ype Group Dates MEDICARE MEDICARE PART A [id number] 2013-Pres [phone] [address] Medicare & B [facility] [id number] [place] [id number] EQUITABLE EQUITABLE [id number] 2017-Yovani spence documented as of this encounter Advance Directives Type Date Recorded Patient Intelligence Analyst Explanati on Advance Directives and Living Will Power of Costumed Character Entertainer
--- OUTSIDE RECORDS SUMMARY | 2020-03-01 15:32 | XMS REPORT | Summary of Care ---
:1950 Author Organization [facility] Address [address] [place] [address] Care Team Providers Name Role Phone MD Mu Primary Care Provider Reason for Visit Reason Comments Refill Request Encounter Details Date Type Department Care Team Description 02/22/2020 Refill [facility] Family Medicine Juma Li MD Refill Request - [address] [place] [address] [place] [address] [phone] Allergies Active Allergy Reactions Severity Noted Date Comments Metoclopramide Hcl Rash 06/03/2012 documented as of this encounter (statuses as of 02/22/2020) Medications Medication Sig Dispensed Refills Start End Status Date Date ipratropium 0 Active (ATROVENT) 0.03 % 2 nasal sprayIndications: Type II or unspecified type diabetes mellitus without mention of complication, uncontrolled azelastine 137 mcg Use 1 [place] in 30 mL 5 Active (0.1 %) [...] Gastroesophageal reflux disease, esophagitis presence not specified lisinopril 10 mg Take 1 tablet 90 [...] mouth 2 0 tablet (two) times daily. olopatadine Place 1 Drop 5 mL 0 Activ e (PATADAY) 0.1 % in both eyes 2 0 ophthalmic (two) times solutionIndications: daily. Allergic conjunctivitis of both eyes hydrOXYzine 25 mg Take 1 tablet 30 tablet 0 Active tabletIndications: by mouth every 0 Itchy skin 6 (six) hours as needed for Itching. LOVAZA, mllkq-1-xqki TAKE 4 360 capsule 1 Active ethyl esters, 1 gram CAPSULES BY 0 capsuleIndications: MOUTH EVERY Other hyperlipidemia DAY LOVAZA, szdeh-3-fanr TAKE 4 360 capsule 1 Discontinued ethyl esters, 1 gram CAPSULES BY 0 020 (Reorder) capsuleIndications: MOUTH EVERY Other hyperlipidemia DAY documented as of this encounter (statuses as of 02/22/2020) Active Problems Problem Noted Date Stage 2 chronic kidney disease 05/27/2019 Diabetes mellitus type 2, uncontrolled, without compli cations 06/03/2012 Overview: ICD10 Diagnosis Term Diamond Cleaner Utility Essential hypertension, benign 06/03/2012 HLD (hyperlipidemia) 06/03/2012 documented as of this encounter (statuses as of 02/22/2020) Immunizations Name Administration Dates Next Due Pneumococcal [...] filedocumented in this encounter Visit Diagnoses Diagnosis Other hyperlipidemia documented in this encounter Insurance Payer Benefit Plan / Subscriber ID Effective Phone Address T ype Group Dates MEDICARE MEDICARE PART A [id number] 2013-Pres [phone] Medicare & B ent 82 [id number] [place] [id number] EQUITABLE EQUITABLE [id number] 2017-Yovani spence documented as of this encounter Advance Directives Type Date Recorded Patient Scalper Operator Explanati on Advance Directives and Living Will Power of Helix Coil Winder
--- OUTSIDE RECORDS SUMMARY | 2020-03-01 15:32 | XMS REPORT | Summary of Care ---
:1950 Author Organization [facility] Address [address] [place] [address] Care Team Providers Name Role Phone MD Mu Primary Care Provider Reason for Visit Reason Comments Orders Encounter Details Date Type Department Care Team Description 02/10/[address] [facility] Family Medicine Juma Li MD Orders - [address] [place] [address] [place] [address] [phone] Allergies Active Allergy Reactions Severity Noted Date Comments Metoclopramide Hcl Rash 06/03/2012 documented as of this encounter (statuses as of 02/10/2020) Medications Medication Sig Dispensed Refills Start Date End Date Status ipratropium (ATROVENT) 0 04/15/2012 Active 0.03 % nasal sprayIndications: Type II or unspecified type diabetes mellitus without mention of complication, uncontrolled azelastine 137 mcg Use 1 [place] in 30 mL 5 11/03/2018 Active (0.1 [...] reflux disease, esophagitis presence not specified LOVAZA, zwvue-7-ytgb TAKE 4 CAPSULES 360 capsule 1 05/06/2019 [...] as of this encounter (statuses as of 02/10/2020) Active Problems Problem Noted Date Stage 2 chronic kidney disease 05/27/2019 Diabetes mellitus type 2, uncontrolled, without compli cations 06/03/2012 Overview: ICD10 Diagnosis Term President + Publisher Utility Essential hypertension, benign 06/03/2012 HLD (hyperlipidemia) 06/03/2012 documented as of this encounter (statuses as of 02/10/2020) Immunizations Name Administration Dates Next Due Pneumococcal [...] this encounter Miscellaneous Notes Telephone Encounter - Amita Mcgraw - 02/10/2020 1:31 PM [facility]Received [facility] received pages 2,4,6 of orders Can you resend this back to [phone] In provider basket documented in this encounter Plan of Treatment [...] ype Group Dates MEDICARE MEDICARE PART A [id number] 2013-Pres [phone] [address] Medicare & B ent [id number] [place] [id number] EQUITABLE EQUITABLE [id number] 2017-Yovani spence documented as of this encounter Advance Directives Type Date Recorded Patient Software Quality Assurance Specialist Explanati on Advance Directives and Living Will Power of Transportation Mechanic
--- OUTSIDE RECORDS SUMMARY | 2020-03-01 15:32 | XMS REPORT | Summary of Care ---
:1950 Author Organization [facility] - [facility] Address [address] [place] [address] Care Team Providers Name Role Phone MD Mu Primary Care Provider Encounter Details Date Type Department Care Team Description 01/21/2020 Orders Only [facility] Doctor Unassigned, No [address] [facility] [place] [address] [place] [address] Allergies Active Allergy Reactions Severity Noted Date Comments Metoclopramide Hcl Rash 06/03/2012 documented as of this encounter (statuses as of 02/08/2020) Medications Medication Sig Dispensed Refills Start Date End Date Status ipratropium (ATROVENT) 0 04/15/2012 Active 0.03 % nasal sprayIndications: Type II or unspecified type diabetes mellitus without mention of complication, uncontrolled azelastine 137 mcg Use 1 [place] in 30 mL 5 11/03/2018 Active (0.1 [...] reflux disease, esophagitis presence not specified LOVAZA, zdoqe-7-taub TAKE 4 CAPSULES 360 capsule 1 05/06/2019 [...] as of this encounter (statuses as of 02/08/2020) Active Problems Problem Noted Date Stage 2 chronic kidney disease 05/27/2019 Diabetes mellitus type 2, uncontrolled, without compli cations 06/03/2012 Overview: ICD10 Diagnosis Term Hat Measurer Utility Essential hypertension, benign 06/03/2012 HLD (hyperlipidemia) 06/03/2012 documented as of this encounter (statuses as of 02/08/2020) Immunizations Name Administration Dates Next Due Pneumococcal [...] Date/Time Associated Diagnosis Comme nts HOME HEALTH 485 Routine 01/21/2020 12:01 AM CDT documented in this encounter Results Not on filedocumented in this encounter Insurance Payer Benefit Plan / Subscriber ID Effective Phone Address T ype Group Dates MEDICARE MEDICARE PART A [id number] 2013-Pres [phone] [address] Medicare & B ent 82 [id number] [place] [id number] EQUITABLE EQUITABLE [id number] 2017-Yovani spence documented as of this encounter Advance Directives Type Date Recorded Patient Frontload Driver Explanati on Advance Directives and Living Will Power of Commissioned Fire Officer
[2020-03-01] MEDS ORDERED: GLUCAGON 1 MG/VIAL IM PRN ×2 (16:24→16:33)
[2020-03-01] MEDS ORDERED: D50W 25 GM/50 ML SYRINGE/VIAL IV PRN ×2 (16:24→16:33)
[2020-03-01] MEDS: INSULIN -REGULAR HUMAN 50 UNIT/0.5 ML ML SQ SCH ×2 (16:30→20:08)
[2020-03-01] MEDS ORDERED: INSULIN LISPRO 100 UNIT/1 ML SQ SCH (17:00)
[2020-03-01] MEDS: ENOXAPARIN 40 MG/0.4 ML SQ SCH (17:21)
[2020-03-01] MEDS: DOCUSATE NA/SENNA CONC 1 TAB PO PRN (19:33)
[2020-03-01] MEDS: METOPROLOL TAR 50 MG TAB PO SCH (19:33)
[2020-03-01] MEDS: MINOCYCLINE HCL 50 MG CAP PO SCH (19:34)
[2020-03-01] MEDS: ATORVASTATIN 80 MG TAB PO SCH (20:07)
[2020-03-01] MEDS: MELATONIN 3 MG TABLET PO PRN (20:08)
[2020-03-01] MEDS: DOXAZOSIN 2 MG TAB PO SCH (20:08)
[2020-03-02 06:21] LABS: Absolute Lymphocytes (CBC) 1.6 K/uL (0.7-4.9); Basophils % 0.7 % (0-1.3); Hematocrit 32.3 % (39.6-49.0); Lymphocytes % 39.5 % (15.3-44.8); MPV 7.1 fL (7.6-11.3); RBC Red Blood Cell Count 3.62 M/uL (4.33-5.43)
[2020-03-02 06:38] LABS: Albumin 3.8 g/dL (3.4-5.0); Magnesium 2.1 mg/dL (1.8-2.4); Potassium 4.3 mmol/L (3.5-5.1); Prealbumin 26.2 mg/dL (20-40)
[2020-03-02 06:48] LABS: Urine Appearance CLEAR; Urine Bilirubin NEGATIVE (NEG); Urine Blood NEGATIVE (NEG); Urine Color YELLOW; Urine Glucose TRACE (NEG); Urine Protein 1+ (NEG); Urine Urobilinogen 0.2 mg/dL (0.2-1.0); Urine pH 5.5 (5.0-7.0)
[2020-03-02 07:30] LABS: Urine Bacteria <20 /HPF (NONE SEEN); Urine RBC NONE SEEN /HPF (NONE SEEN)
[2020-03-02] MEDS: INSULIN -REGULAR HUMAN 50 UNIT/0.5 ML ML SQ SCH ×4 (07:30→20:56)
[2020-03-02 07:31] LABS: Urine Culture Reflex Order NOT NEEDED
[2020-03-02] MEDS ORDERED: CYANOCOBALAMIN 1,000 MCG TAB PO SCH ×3 (08:00)
[2020-03-02] MEDS: METOPROLOL TAR 50 MG TAB PO SCH ×2 (08:06→20:56)
[2020-03-02] MEDS: POLYETHYL GLY 3350 17 GM/DOSE PO SCH (08:06)
[2020-03-02] MEDS: MULTIVITAMINS,THERAPEUT 1 TAB PO SCH (08:07)
[2020-03-02] MEDS: MINOCYCLINE HCL 50 MG CAP PO SCH ×2 (08:07→20:55)
[2020-03-02] MEDS: TAMSULOSIN 0.4 MG SR CAP PO SCH (08:07)
[2020-03-02] MEDS: CLOPIDOGREL 75 MG TABLET PO SCH (08:07)
[2020-03-02] MEDS: CYANOCOBALAMIN 1,000 MCG TAB PO SCH (08:07)
[2020-03-02] MEDS: ASPIRIN 81 MG CHEWABLE TABLET PO SCH (08:07)
[2020-03-02] MEDS ORDERED: GLUCAGON 1 MG/VIAL IM PRN (14:09)
[2020-03-02] MEDS ORDERED: D50W 25 GM/50 ML SYRINGE/VIAL IV PRN (14:09)
[2020-03-02] MEDS: HYDROCORTISONE 1 % CREAM 30GM TOP PRN (15:32)
[2020-03-02] MEDS: ENOXAPARIN 40 MG/0.4 ML SQ SCH (17:08)
[2020-03-02] MEDS: INSULIN LISPRO 100 UNIT/1 ML SQ SCH (17:09)
--- NOTE | 2020-03-02 17:19 | R.HP ---
HISTORY AND PHYSICAL FACILITY: [facility] ENCOUNTER DATE AND TIME: 03/02/2020 17:10 (SUPERVISOR PAPER COATING) MR#: [id number] NAME JOHN PAUL SYKES ADDRESS: [address] [place] [address]: [place] [id number] PHONE: DATE OF : 1950 AGE: 70 SSN# [id number] GENDER: Male DEXTERITY Right-handed MARITAL STATUS RACE Unknown race PRE-HOSPITAL LIVING SETTING 01 - Home (private home/apt. board/care, assisted living, residential, transitional living) PRE-HOSPITAL LIVING WITH Family/Relatives ENCOUNTER PHYSICIAN: Dr. Gonzalez Fish M.D. REFERRING DOCTOR: katja Reyes DATE OF ADMISSION: 03/01/2020 13:22 (SUPERVISOR PAPER COATING) REFERRING FACILITY [facility] HOME TYPE AND DETAILS: Type of home: single family house # of levels in the residence: 1 # of steps within the residence: 0 # of steps to enter the residence: 0 ONSET DATE: 02/26/2020 PRIMARY DIAGNOSIS-RELATED SURGERIES: No surgeries related to the primary diagnosis were performed. HISTORY OF PRESENT ILLNESS (HPI): Pt. is a 70 yo Right-handed male of unknown race. On 02/26/[address] [facility] with sudden onset of right-side weakness. On 02/26/2020 he was admitted to [facility] with diagnosis CVA. His impairment category is Stroke 01 - Right Body (Left Brain) (01.2). Pre-morbidly, Pt. was independent/mod-I in Safety Awareness, Balance, Social Cognition, Self-Care, an d Communication; and he had good Self-Care and Transfers Control. Currently, he has deficits of Endurance, Safety Awareness, and Sphincter Control. Pt. is now referred to [facility] for acute in-patient rehabilitation in order to maximize patient's functional independence in activities of daily living, strength, ROM, and mobi lity. Patient has realistic goal of being discharged at assistance level 7-Ind to reside at Home with Fami ly/Relatives. is a 70 year old male that lives independently at home before his CVA. He will be discharging home with his son to live in his one -story home with his own room and barthroom, and family support. Mr. Sykes has a past medical history of PMH of HTN,DM,ROSARIO on CPAP, BPH and right RCC s/p resection and now on chemo. He started having blurry vision in the left eye and he ran into the wall. He had reported confusion and slurred speech 1 week ago while driving to his appointment. He has always done all of his own ADLs prior to his stoke. The patient would most definitely benefit from acute inpatient rehab and has become severely debilitated and unable to live at his prior level of activity at home getting him stronger to be back living at home independently is our goal. It is reasonable and necessary for the patient to come to acute inpatient rehab for approximately 7-10 days in order to return to his prior level of care. He is now being transferred to [facility] Inpatient rehabilitation and is medically stable with relatively stable labs. He is now medically stable but in need of 24 hour nursing, doctor supervision and The patient is reasonably expected to participate in 3 hours of therapy a day/15 hours per week and receive care with intensive interdisciplinary approach. COVID-19 screening performed; spoke with patient via phone. Patient denies new onset of fever, cough, difficulty breathing, sore throat, body aches and non-allergy nasal congestion in the past 24 hours. Patient denies travel outside of [place] in the past 14 days. Patient denies any contact with someone who has a confirmed diagnosis of or is under investigation for COVID-19 in the past 14 days. Patient has been tested negative for COVID- 19. MEDICATION ALLERGIES: No Known Drug Allergies (NKDA) ENVIRONMENTAL ALLERGIES: - Substance Allergies None Known - Other Allergies None Known PAST MEDICAL HISTORY: CORONARY ARTERY DISEASE DIABESTES MELLITUS HEART ATTACK HYPERTENSION METASTATIC RENAL CELL CARCINOMA ROSARIO ON CPAP PAST SURGICAL HISTORY: LOOP RECORDER 03/01/20 BIOPSY EXCISION, SOFT TISSUE HIP COLONOSCOPY HEART STENT X 2 LAPAROSCOPY, NEPHRECTOMY ORIF,ACET ABULUM PROCEDURE W/C-ARM SOCIAL HISTORY: - Home Living Family/Relatives REVIEW OF SYSTEMS: - Gen No Chills Fatigue No Fever - Eyes No Double Vision No itchiness - ENMT No Difficulty Swallowing - CVS No Chest Discomfort No Chest Pain Fatigue No Weight Gain - Resp No Cough No Shortness of Breath - GI Continent No Abdominal Pain No Constipation No Diarrhea - Continent No Kidney Pain No Painful Urination No Urinary Urgency - MSK No Joint Pain Muscle Cramps Stiffness - Skin No Itching No Rash No Suspicious Lesions - Neuro Coordination Difficulty No Difficulty with Concentration No Memory Loss No Seizures Weakness - Psych No Anxiety No Depression No HIV Exposure No Persistent Infections No Seasonal Allergies - Endo No Cold/Heat Intolerance No Excessive Hunger No Excessive Thirst No Excessive Urination PHYSICAL EXAM - Gen Alert and awake Lying in bed No apparent distress Oriented to: person, time, and place - Skin No skin breakdown. Normacephalic - Eyes No abnormalities - ENMT No abnormalities - Neck No abnormalities - CVS RRR - Chest No abnormalities - Abd + bowel sounds - GI Soft No abnormalities - No abnormalities - Ext No significant edema - MSK 4+/5 weakness in right lower extremity - Neuro 4/5 strength right lower extremity. - Psych No abnormalities VITAL SIGNS Temperature: 97.6 F SBP/DBP: 168/81 Pulse: 57 Resp: 16 NURSING: - Shower allowing shower - Bladder care per protocol - Skin care per protocol PRECAUTIONS: - Weight Bearing Precaution WBAT right LE ACTIVITIES OOB only with supervision QI SCORES: - Self-Care A. Eating 04-Supervision or touching assistance B. Oral hygiene 03-Partial/moderate assistance C. Toileting hygiene 03-Partial/moderate assistance E. Shower/bathe self 03-Partial/moderate assistance F. Upper body dressing 03-Partial/moderate assistance G. Lower body dressing 03-Partial/moderate assistance H. Putting on/taking off footwear 88-Not attempted due to medical condition or safety concerns - Mobility A. Roll left and right 04-Supervision or touching assistance B. Sit to lying 04-Supervision or touching assistance C. Lying to sitting on side of bed 04-Supervision or touching assistance D. Sit to stand 03-Partial/moderate assistance E. Chair/yip-zd-zotlz transfer 03-Partial/moderate assistance F. Toilet transfer 03-Partial/moderate assistance G. Car transfer 88-Not attempted due to medical condition or safety concerns I. Walk 10 feet 03-Partial/moderate assistance J. Walk 50 feet with two turns 03-Partial/moderate assistance K. Walk 150 feet 03-Partial/moderate assistance L. Walking 10 feet on uneven surfaces 88-Not attempted due to medical condition or safety concerns M. 1 step (curb) 88-Not attempted due to medical condition or safety concerns N. 4 steps 88-Not attempted due to medical condition or safety concerns O. 12 steps 88-Not attempted due to medical condition or safety concerns P. Picking up object 88-Not attempted due to medical condition or safety concerns R. Wheel 50 feet with two turns 88-Not attempted due to medical condition or safety concerns S. Wheel 150 feet 88-Not attempted due to medical condition or safety concerns - Bladder and Bowel Bladder continence Bowel continence - Endurance Fair - Balance Fair - Safety Awareness Fair CURRENT FUNC. DEFICITS: Self-Care, Mobility, Endurance, Balance, and Safety Awareness MEDICATIONS: - Other See attached MAR (Medication Administration Record) ASSESSMENT: Pt. is a 70 yo Right-handed male of unknown race.On 02/26/[address] [facility] with sudden onset of right-side weakness.On 02/26/2020 he was admitted to [facility] with diagnosis CVA.His impairment category is Stroke 01 - Right Body (Left Brain) (01.2).Pre-morbidly, Pt. was ind ependent/mod-I in Safety Awareness, Balance, Social Cognition, Self-Care, and Communication; and he h ad good Self-Care and Transfers Control.Currently, he has deficits of Endurance, Safety Awareness, an d Sphincter Control.Pt. is now referred to [facility] for acute in-patient radha abilitation in order to maximize patient's functional independence in activities of daily living, str ength, ROM, and mobility.- Rehab Goal Patient has realistic goal of being discharged at assistance level 7-Ind to reside at Home with Fami ly/Relatives. is a 70 year old male that lives independently at home before his CVA. He will be discharging home with his son to live in his one -story home with his own room and barthroom, and family support. Mr. Sykes has a past medical history of PMH of HTN,DM,ROSARIO on CPAP, BPH and right RCC s/p resection and now on chemo. He started having blurry vision in the left eye and he ran into the wall. He had reported confusion and slurred speech 1 week ago while driving to his appointment. He has always done all of his own ADLs prior to his stoke. The patient would most definitely benefit from acute inpatient rehab and has become severely debilitated and unable to live at his prior level of activity at home getting him stronger to be back living at home independently is our goal. It is reasonable and necessary for the patient to come to acute inpatient rehab for approximately 7-10 days in order to return to his prior level of care. He is now being transferred to [facility] Inpatient rehabilitation and is medically stable with relatively stable labs. He is now medically stable but in need of 24 hour nursing, doctor supervision and The patient is reasonably expected to participate in 3 hours of therapy a day/15 hours per week and receive care with intensive interdisciplinary approach. COVID-19 screening performed; spoke with patient via phone. Patient denies new onset of fever, cough, difficulty breathing, sore throat, body aches and non-allergy nasal congestion in the past 24 hours. Patient denies travel outside of [place] in the past 14 days. Patient denies any contact with someone who has a confirmed diagnosis of or is under investigation for COVID-19 in the past 14 days. Patient has been tested negative for COVID- 19.REHAB PLAN: for Dementia, TBI, Stroke, or others - Physical Therapy Gait dysfunction - to improve, our physical therapists will perform initial evaluation of pt's status upon admission and devise an individualized program for Gait Training, and Wheel Chair mobility Need for home safety evaluation - to improve, our physical therapists will perform initial evaluation of pt's status upon admission and devise an individualized program for Home Evaluation Need in caregiver upon discharge - to improve, our physical therapists will perform initial evaluatio n of pt's status upon admission and devise an individualized program for Caregiver Training New precaution - to improve, our physical therapists will perform initial evaluation of pt's status u joyce admission and devise an individualized program for Patient precaution education Edema - to improve, our physical therapists will perform initial evaluation of pt's status upon admi ssion and devise an individualized program for Elevation Training, and Lymphedema Therapy Poor endurance - to improve, our physical therapists will perform initial evaluation of pt's status u joyce admission and devise an individualized program for Endurance Training Weakness - to improve, our physical therapists will perform initial evaluation of pt's status upon ad mission and devise an individualized program for Aquatic Therapy, Neuromuscular Reeducation, and Stre ngthening Achieving independence - to improve, our physical therapists will perform initial evaluation of pt's status upon admission and devise an individualized program for Community Reintegration Activities - Occupational Therapy Need for primary care pediatrician - to improve, our occupation therapists will perform initial evaluation of pt's s tatus upon admission and devise an individualized program for Caregiver Training Weakness - to improve, our occupation therapists will perform initial evaluation of pt's status upon admission and devise an individualized program for Aquatic Therapy, Balance, Endurance, UE ROM, and U E strengthening MEDICAL PLAN: - Diet Type Regular - Diet - Liquid Texture Regular - Tube Feed N/A - Bladder care per protocol - Weight Bearing Precaution WBAT right LE - Skin care per protocol - Other See attached MAR (Medication Administration Record) - Diet - Solid Texture Regular - Shower shower DISCHARGE PLAN: - Estimated Length of Stay (days) 17. - Consensus on plan Discharge plan has been discussed with primary caregiver. Patient/Family is in agreement with the madi n. Primary caregiver is in agreement with the plan. - Patient/Family Goals Return home independently. - Planned Living Setting Upon Discharge Home, to live with Family/Relatives. Transitional Living. SIGNATURE PANEL: (SUPERVISOR PAPER COATING)
--- NOTE | 2020-03-02 17:21 | PAPE ---
POST ADMISSION PHYSICIAN EVALUATION PATIENT: [facility] MR# [id number] REFERRING DOCTOR katja Reyes EVALUATION DATE AND TIME 03/02/2020 17:19 (PARKER) NAME JOHN PAUL POLLARD DATE OF 1950 AGE 70 PHONE SSN# [id number] GENDER male EVALUATING PHYSICIAN Dr. Gonzalez Fish M.D. ADMISSION DIAGNOSIS: CVA ONSET DATE 02/26/2020 POST-ADMISSION FUNCTIONAL/MEDICAL STATUS: - Bladder Same accident frequency: Ind - No accidents in the past 7 days - Bowel Same accident frequency: Ind - No accidents in the past 7 days - Walking Same score based on distance walked: 0(N/A) Same score based on distance walked: 3(>=150ft) - Wheelchair Same score based on distance traveled: 0(N/A) STATUS CHANGE EVALUATION: No change in Functional or Medical Status is identified compared with Pre-Admission screening. PATIENT NEEDS CLOSE MEDICAL SUPERVISION BY A REHABILITATION PHYSICIAN FOR: Coordination of Treatment Team PATIENT REQUIRES 24X7 REHAB NURSING FOR MEDICAL AND FUNCTIONAL MGT. OF THE FOLLOWING DEFICITS: Disease Management Medication Management Patient/Family Education Providing Safe Environment PATIENT REQUIRES INTENSIVE, COORDINATED INTERDISCIPLINARY APPROACH TO REHAB: Arranging Home Equipment/Services Discharge Planning Family Intervention/Training Automobile Assembler/Case Management LIST OF IDENTIFIED AND POTENTIAL PROBLEMS: Alteration in leisure activities Bladder, Incontinence Bowel, Incontinence Infection, Actual or Potential Mobility Impaired Pain, Alteration in Comfort Self Care Deficit Skin Integrity, Actual or Potential Urinary Tract Infection (UTI), Actual or Potential PATIENT COULD BE AT RISK FOR COMPLICATIONS FROM ADVERSE MEDICAL CONDITIONS DUE TO HIS/HER COMORBIDITI ES AND THE RIGORS OF THE INTENSIVE REHABILLITATION PROGRAM. METHODS OR INTERVENTIONS TO AVOID COMPLIC ATIONS INCLUDE: - Bleeding Stroke patients assessed for lethargy or change in status. - Infection Clinical staff to assess and manage the signs and symptoms of infection including fever, redness, war mth, etc. - Urinary Tract Infection - Aspiration Clinical staff will assess and manage coughing, drooling, congestion. - Falls Patient will be evaluated for Fall Precautions and will be placed on Fall Precautions as indicated pe r protocol. - Skin Breakdown Nursing will assess skin daily using assessment tool and will place on Skin Breakdown Precautions as indicated per protocol. - Pain Clinical staff may employ non-medication methods such as massage, distraction, decrease stimulus, etc . as needed. Clinical staff will assess patient's pain level every shift per protocol to assess and e nsure pain management effectiveness. Medications will be given and the pain level re-assessed. PRELIMINARY PLAN OF CARE: - Physical Therapy Patient needs Physical Therapy for a daily minimum of 1.5 hours at least 5 out of 7 days, to improve: Mobility, Strengthening, Transfers, Stretching, ROM, Endurance, Ability to manage stairs, Gait, and Balance. - Speech Therapy Patient needs Speech Therapy for a daily minimum of 0.5 hours at least 5 out of 7 days, to improve: S wallowing, Cognition, Language Skills, and Compensatory Strategies. - Rehabilitation Nursing Patient requires 24x7 Rehabilitation Nursing for: Pain Issues, Identifying and preventing risk factor s, Monitoring and reporting current medical conditions, Assisting with ambulation and transfer, Milagros ting with all ADL-s, Teaching patients about disease process and medications, Family teaching, Provid ing safe environment, Bowel and Bladder Issues, Skin Integrity, and Medication Management. Patient needs Automobile Assembler and/or Case Management for: Discharge Planning, Arranging Home Equipmen t or Services, and Family Interventions. - Dietary and Nutrition Services Patient needs Dietary and Nutrition Services for: Adequate Nutrition, Nutritional Supplements, and Nu tritional Education. - Occupational Therapy Patient needs Occupational Therapy for a daily minimum of 1.5 hours at least 5 out of 7 days, to impr ove Activities of Daily Living, including: Eating, Grooming, Bathing, Dressing, Toileting, Toilet Tra nsfers, Community Reintegration, Higher functional activities, Adaptive Equipment, Splinting, Househo ld Tasks, and Other activities as determined. QI SCORES: - Self-Care A. Eating 04-Supervision or touching assistance B. Oral hygiene 03-Partial/moderate assistance C. Toileting hygiene 03-Partial/moderate assistance E. Shower/bathe self 03-Partial/moderate assistance F. Upper body dressing 03-Partial/moderate assistance G. Lower body dressing 03-Partial/moderate assistance H. Putting on/taking off footwear 88-Not attempted due to medical condition or safety concerns - Mobility A. Roll left and right 04-Supervision or touching assistance B. Sit to lying 04-Supervision or touching assistance C. Lying to sitting on side of bed 04-Supervision or touching assistance D. Sit to stand 03-Partial/moderate assistance E. Chair/qws-ic-duptn transfer 03-Partial/moderate assistance F. Toilet transfer 03-Partial/moderate assistance G. Car transfer 88-Not attempted due to medical condition or safety concerns I. Walk 10 feet 03-Partial/moderate assistance J. Walk 50 feet with two turns 03-Partial/moderate assistance K. Walk 150 feet 03-Partial/moderate assistance L. Walking 10 feet on uneven surfaces 88-Not attempted due to medical condition or safety concerns M. 1 step (curb) 88-Not attempted due to medical condition or safety concerns N. 4 steps 88-Not attempted due to medical condition or safety concerns O. 12 steps 88-Not attempted due to medical condition or safety concerns P. Picking up object 88-Not attempted due to medical condition or safety concerns R. Wheel 50 feet with two turns 88-Not attempted due to medical condition or safety concerns S. Wheel 150 feet 88-Not attempted due to medical condition or safety concerns - Bladder and Bowel Bladder continence Bowel continence - Endurance Fair - Balance Fair - Safety Awareness Fair POTENTIAL FUNCTIONAL GOALS FOR PATIENT TO ACHIEVE BY DISCHARGE: - Safety Precaution Patient will remain free from falls or injury at time of discharge. - Bed Mobility Patient will perform bed mobility at 4-Liban level of assistance. - Transfers Patient will complete transfers from bed to chair at 4-Liban level of assistance. - Mobility Patient will ambulate 150 ft with 4-Liban level of assistance with RW. PATIENT REHAB POTENTIAL Betty POLLARD is able and expected to receive 3 hours of individualized therapy daily on at least 5 of 7 days Betty COBIANs prognosis for significant practical improvement within a reasonable period of time appears Good Expected level of measurable improvement will be of a practical value to Betty POLLARD's functional capaci ty or adaptations to impairments Has a viable Discharge Plan Medically appropriate; condition is sufficiently stable to participate in intensive rehab program DISCHARGE PLAN: - Estimated Length of Stay (days) 17. - Consensus on plan Discharge plan has been discussed with primary caregiver. Patient/Family is in agreement with the madi n. Primary caregiver is in agreement with the plan. - Patient/Family Goals Return home independently. - Planned Living Setting Upon Discharge Home, to live with Family/Relatives. Transitional Living. CONCLUSION ON REHABILITATION NECESSITY: I have evaluated patient's pre-admission functional status and, comparing it to the patient's post-ad mission functional status now, I conclude that the pre-admission assessment was accurate. Patient's c ondition on admission supports the medical necessity of admission to [facility]. It is safe to proceed with patient's therapy program. SIGNATURE PANEL: (PARKER)
[2020-03-02] MEDS: MELATONIN 3 MG TABLET PO PRN (20:56)
[2020-03-02] MEDS: DOXAZOSIN 2 MG TAB PO SCH (20:56)
[2020-03-02] MEDS: ATORVASTATIN 80 MG TAB PO SCH (20:56)
[2020-03-03 06:11] LABS: Absolute Lymphocytes (CBC) 1.7 K/uL (0.7-4.9); Basophils % 0.6 % (0-1.3); Lymphocytes % 40.8 % (15.3-44.8); MPV 7.3 fL (7.6-11.3); RBC Red Blood Cell Count 3.45 M/uL (4.33-5.43)
[2020-03-03 06:54] LABS: Albumin 3.6 g/dL (3.4-5.0); Magnesium 2.2 mg/dL (1.8-2.4); Potassium 4.2 mmol/L (3.5-5.1); Prealbumin 28.8 mg/dL (20-40)
[2020-03-03] MEDS: INSULIN -REGULAR HUMAN 50 UNIT/0.5 ML ML SQ SCH ×4 (07:30→19:54)
[2020-03-03] MEDS: MULTIVITAMINS,THERAPEUT 1 TAB PO SCH (07:54)
[2020-03-03] MEDS: CLOPIDOGREL 75 MG TABLET PO SCH (07:54)
[2020-03-03] MEDS: ASPIRIN 81 MG CHEWABLE TABLET PO SCH (07:54)
[2020-03-03] MEDS: MINOCYCLINE HCL 50 MG CAP PO SCH ×2 (07:55→19:53)
[2020-03-03] MEDS: METOPROLOL TAR 50 MG TAB PO SCH ×2 (07:55→19:53)
[2020-03-03] MEDS: TAMSULOSIN 0.4 MG SR CAP PO SCH (07:55)
[2020-03-03] MEDS: POLYETHYL GLY 3350 17 GM/DOSE PO SCH (07:55)
[2020-03-03] MEDS: CYANOCOBALAMIN 1,000 MCG TAB PO SCH (07:56)
[2020-03-03] MEDS: INSULIN LISPRO 100 UNIT/1 ML SQ SCH ×2 (07:56→12:20)
[2020-03-03] MEDS ORDERED: METFORMIN HCL 500 MG TAB PO SCH (17:00)
[2020-03-03] MEDS: METFORMIN HCL 500 MG TAB PO SCH (17:14)
[2020-03-03] MEDS: ENOXAPARIN 40 MG/0.4 ML SQ SCH (17:14)
--- NOTE | 2020-03-03 17:34 | R.PN ---
PROGRESS NOTES ENCOUNTER DATE AND TIME: 03/03/2020 17:24 (APARTMENT LOCATOR) NAME JOHN PAUL POLLARD DATE OF : 1950 DATE OF ADMISSION: 03/01/2020 13:22 (APARTMENT LOCATOR) CVACHIEF COMPLAINT: Stroke with aphasia. SUBJECTIVE: Pt denied any Shortness of Breath. Pt denied any depression. Ambulated 1000' with standby assistance and no assistive device. Up and down 40 steps independently. WBC is 4.1, Hgb 10.7, glucose 115 to 211, prealbumin 28.8. UA is essentially normal. He is being evaluated by speech therapy for expressive aphasia. VITAL SIGNS Temperature: 97.3 F SBP/DBP: 144/74 Pulse: 62 Resp: 16 MEDICATION ALLERGIES: No Known Drug Allergies (NKDA) ENVIRONMENTAL ALLERGIES: - Substance Allergies None Known - Other Allergies None Known NURSING: - Shower allowing shower - Bladder care per protocol - Skin care per protocol PRECAUTIONS: - Weight Bearing Precaution WBAT right LE ACTIVITIES OOB only with supervision THERAPIES: - Occupational Therapy Cognitive Retraining. Visual Perceptual Training. - Dietary and Nutrition Adequate Nutrition. Nutritional Education. Nutritional Supplements. - Speech Therapy Cognitive Training. Expressive Language Skills. Memory Strategies. Receptive Language Skills. Speech Intelligibility Training. PHYSICAL EXAM - Gen Alert and awake Lying in bed No apparent distress Oriented to: person, time, and place - Skin No skin breakdown. Normacephalic - Eyes No abnormalities - ENMT No abnormalities - Neck No abnormalities - CVS RRR - Chest No abnormalities - Abd + bowel sounds - GI Soft No abnormalities - No abnormalities - Ext No significant edema - MSK 4+/5 weakness in right lower extremity - Neuro 4/5 strength right lower extremity. - Psych No abnormalities ASSESSMENT: Pt. is a 70 yo Right-handed male of unknown race.On 02/26/2020 Pt. presented to [facility] with sudden onset of right-side weakness.On 02/26/2020 he was admitted to [facility] with diagnosis CVA.His impairment category is Stroke 01 - Right Body (Left Brain) (01.2).Pre-morbidly, Pt. was ind ependent/mod-I in Safety Awareness, Balance, Social Cognition, Self-Care, and Communication; and he h ad good Self-Care and Transfers Control.Currently, he has deficits of Endurance, Safety Awareness, an d Sphincter Control.Pt. is now referred to [facility] for acute in-patient radha abilitation in order to maximize patient's functional independence in activities of daily living, str ength, ROM, and mobility.- Rehab Goal Patient has realistic goal of being discharged at assistance level 7-Ind to reside at Home with Fami ly/Relatives. MDM/PLAN: - Physical Therapy Gait dysfunction - to improve, our physical therapists will perform initial evaluation of pt's statu s upon admission and devise an individualized program for Gait Training, and Wheel Chair mobility Need for home safety evaluation - to improve, our physical therapists will perform initial evaluatio n of pt's status upon admission and devise an individualized program for Home Evaluation Need in caregiver upon discharge - to improve, our physical therapists will perform initial evaluati on of pt's status upon admission and devise an individualized program for Caregiver Training New precaution - to improve, our physical therapists will perform initial evaluation of pt's status upon admission and devise an individualized program for Patient precaution education Edema - to improve, our physical therapists will perform initial evaluation of pt's status upon admis veronica and devise an individualized program for Elevation Training, and Lymphedema Therapy Poor endurance - to improve, our physical therapists will perform initial evaluation of pt's status upon admission and devise an individualized program for Endurance Training Weakness - to improve, our physical therapists will perform initial evaluation of pt's status upon a dmission and devise an individualized program for Aquatic Therapy, Neuromuscular Reeducation, and Str engthening Achieving independence - to improve, our physical therapists will perform initial evaluation of pt's status upon admission and devise an individualized program for Community Reintegration Activities - Occupational Therapy Need for before and after school daycare worker - to improve, our occupation therapists will perform initial evaluation of pt's status upon admission and devise an individualized program for Caregiver Training Weakness - to improve, our occupation therapists will perform initial evaluation of pt's status upon admission and devise an individualized program for Aquatic Therapy, Balance, Endurance, UE ROM, and UE strengthening - Other See attached MAR (Medication Administration Record) - Diet Type Continue Regular - Diet - Liquid Texture Continue Regular - Tube Feed Continue N/A - Bladder care per protocol - Weight Bearing Precaution WBAT right LE - Skin care per protocol - Diet - Solid Texture Continue Regular - Shower allowing shower for Dementia, TBI, Stroke, or others FUNCTIONAL STATUS: UPDATED AT WEEKLY TEAM CONFERENCE - Bladder Same accident frequency: 7-Ind - No accidents in the past 7 days - Bowel Same accident frequency: 7-Ind - No accidents in the past 7 days - Walking Same score based on distance walked: 0(N/A) Same score based on distance walked: 3(>=150ft) - Wheelchair Same score based on distance traveled: 0(N/A) FUNCTIONAL STATUS: - Self-Care A. Eating Ind B. Grooming Ind C. Bathing sup D. Dressing - Upper Elvis E. Dressing - Lower Liban F. Toileting Elvis - Sphincter Control G. Bladder control Elvis H. Bowel control Elvis - Transfers Control I. Bed/Chair/Wheelchair Elvis J. Toilet sup K. Tub/Shower Elvis - Locomotion L. Walk/Wheelchair (B) Elvis M. Stairs sup - Communication N. Comprehension (B) sup O. Expression (B) Liban - Social Cognition P. Social Interaction sup Q. Problem Solving sup R. Memory sup - Endurance Good - Balance Good - Safety Awareness Good QI SCORES: - Self-Care A. Eating 04-Supervision or touching assistance B. Oral hygiene 03-Partial/moderate assistance C. Toileting hygiene 03-Partial/moderate assistance E. Shower/bathe self 03-Partial/moderate assistance F. Upper body dressing 03-Partial/moderate assistance G. Lower body dressing 03-Partial/moderate assistance H. Putting on/taking off footwear 88-Not attempted due to medical condition or safety concerns - Mobility A. Roll left and right 04-Supervision or touching assistance B. Sit to lying 04-Supervision or touching assistance C. Lying to sitting on side of bed 04-Supervision or touching assistance D. Sit to stand 03-Partial/moderate assistance E. Chair/[id number] transfer 03-Partial/moderate assistance F. Toilet transfer 03-Partial/moderate assistance G. Car transfer 88-Not attempted due to medical condition or safety concerns I. Walk 10 feet 03-Partial/moderate assistance J. Walk 50 feet with two turns 03-Partial/moderate assistance K. Walk 150 feet 03-Partial/moderate assistance L. Walking 10 feet on uneven surfaces 88-Not attempted due to medical condition or safety concerns M. 1 step (curb) 88-Not attempted due to medical condition or safety concerns N. 4 steps 88-Not attempted due to medical condition or safety concerns O. 12 steps 88-Not attempted due to medical condition or safety concerns P. Picking up object 88-Not attempted due to medical condition or safety concerns R. Wheel 50 feet with two turns 88-Not attempted due to medical condition or safety concerns S. Wheel 150 feet 88-Not attempted due to medical condition or safety concerns - Bladder and Bowel Bladder continence Bowel continence - Endurance Fair - Balance Fair - Safety Awareness Fair CURRENT [facility]. DEFICITS: Self-Care, Mobility, Endurance, Balance, and Safety Awareness SIGNATURE PANEL: (APARTMENT LOCATOR)
[2020-03-03] MEDS: DOXAZOSIN 2 MG TAB PO SCH (19:52)
[2020-03-03] MEDS: MELATONIN 3 MG TABLET PO PRN (19:52)
[2020-03-03] MEDS: ATORVASTATIN 80 MG TAB PO SCH (19:52)
[2020-03-04] MEDS: INSULIN -REGULAR HUMAN 50 UNIT/0.5 ML ML SQ SCH ×4 (07:30→20:54)
[2020-03-04] MEDS: POLYETHYL GLY 3350 17 GM/DOSE PO SCH (08:23)
[2020-03-04] MEDS: CYANOCOBALAMIN 1,000 MCG TAB PO SCH (08:24)
[2020-03-04] MEDS: METFORMIN HCL 500 MG TAB PO SCH ×2 (08:24→16:13)
[2020-03-04] MEDS: METOPROLOL TAR 50 MG TAB PO SCH ×2 (08:24→20:52)
[2020-03-04] MEDS: TAMSULOSIN 0.4 MG SR CAP PO SCH (08:24)
[2020-03-04] MEDS: MULTIVITAMINS,THERAPEUT 1 TAB PO SCH (08:25)
[2020-03-04] MEDS: ASPIRIN 81 MG CHEWABLE TABLET PO SCH (08:25)
[2020-03-04] MEDS: CLOPIDOGREL 75 MG TABLET PO SCH (08:25)
[2020-03-04] MEDS: MINOCYCLINE HCL 50 MG CAP PO SCH ×2 (09:40→20:53)
--- NOTE | 2020-03-04 09:42 | P.RH.PN ---
Estimated Length of Stay: 9 Expected Discharge Date: 03/09/20 Discharge Disposition Plan: Home Family Support: Yes Highway Inspector Goal: Mobility, Transfers, Self Care Vital Signs: Last Vital Signs Temp 98.2 F 03/04/20 07:54 Pulse 68 03/04/20 08:24 Resp 18 03/04/20 07:54 BP 160/77 H 03/04/20 08:24 Pulse Ox 97 03/04/20 07:54 Laboratory: Laboratory Last Values WBC 4.1 K/uL (4.3-10.9) L 03/03/20 05:40 RBC 3.45 M/uL (4.33-5.43) L 03/03/20 05:40 Hgb 10.7 g/dL (13.6-17.9) L 03/03/20 05:40 Hct 31.0 % (39.6-49.0) L 03/03/20 05:40 MCV 89.9 fL (80-100) 03/03/20 05:40 MCH 31.1 pg (27.0-35.0) 03/03/20 05:40 MCHC 34.6 g/dL (32.0-36.0) 03/03/20 05:40 RDW 15.0 % (12.1-15.2) 03/03/20 05:40 Plt Count 155 K/uL (152-406) 03/03/20 05:40 MPV 7.3 fL (7.6-11.3) L 03/03/20 05:40 Neutrophils % 44.8 % (41.7-73.7) 03/03/20 05:40 Lymphocytes % 40.8 % (15.3-44.8) 03/03/20 05:40 Monocytes % 8.7 % (3.3-12.3) 03/03/20 05:40 Eosinophils % 5.1 % (0-4.4) H 03/03/20 05:40 Basophils % 0.6 % (0-1.3) 03/03/20 05:40 Absolute Neutrophils 1.8 K/uL (1.8-8.0) 03/03/20 05:40 Absolute Lymphocytes 1.7 K/uL (0.7-4.9) 03/03/20 05:40 Absolute Monocytes 0.4 K/uL (0.1-1.3) 03/03/20 05:40 Absolute Eosinophils 0.2 K/uL (0-0.5) 03/03/20 05:40 Absolute Basophils 0.0 K/uL (0-0.5) 03/03/20 05:40 Sodium 140 mmol/L (136-145) 03/03/20 05:40 Potassium 4.2 mmol/L (3.5-5.1) 03/03/20 05:40 Chloride 107 mmol/L (98-107) 03/03/20 05:40 Carbon Dioxide 25 mmol/L (21-32) 03/03/20 05:40 BUN 36 mg/dL (7-18) H 03/03/20 05:40 Creatinine 2.04 mg/dL (0.55-1.3) H 03/03/20 05:40 Estimated GFR 32 mL/min (=/>90) L 03/03/20 05:40 Glucose 168 mg/dL (74-106) H 03/03/20 05:40 POC Glucose 180 mg/dL (65-120) H 03/04/20 06:57 Calcium 8.7 mg/dL (8.5-10.1) 03/03/20 05:40 Magnesium 2.2 mg/dL (1.8-2.4) 03/03/20 05:40 Albumin 3.6 g/dL (3.4-5.0) 03/03/20 05:40 Prealbumin 28.8 mg/dL (20-40) 03/03/20 05:40 Urine Color Yellow 03/02/20 05:50 Urine Appearance Clear 03/02/20 05:50 Urine pH 5.5 (5.0-7.0) 03/02/20 05:50 Ur Specific [place] 1.020 (1.005-1.030) 03/02/20 05:50 Glucose (UA)(Auto) Trace (NEG) 03/02/20 05:50 Urine Ketones Negative (NEG) 03/02/20 05:50 Urine Blood Negative (NEG) 03/02/20 05:50 Urine Nitrite Negative (NEG) 03/02/20 05:50 Urine Bilirubin Negative (NEG) 03/02/20 05:50 Urine Urobilinogen 0.2 mg/dL (0.2-1.0) 03/02/20 05:50 Ur Leukocyte Esterase Negative (NEG) 03/02/20 05:50 Urine RBC None seen /HPF (NONE SEEN) 03/02/20 05:50 Urine WBC <5 /HPF (<5) 03/02/20 05:50 Ur Squamous Epith Cells <5 /HPF (NONE SEEN) 03/02/20 05:50 Urine Bacteria <20 /HPF (NONE SEEN) 03/02/20 05:50 Urine Culture Reflexed Not needed 03/02/20 05:50 Urine Total Protein 1+ (NEG) H 03/02/20 05:50 SARS-CoV-2 RNA (RT-PCR) Negative (NEGATIVE) 03/01/20 16:00 Weight: 259 lb Wound Present: Yes Closed Surgical Incision Present: Yes Negative Pressure Wound Therapy Present: No Physician Update: He is doing very well with physical and occupational therapy. He has significant short term memory issues. He requires a lot of help with memory. He will move in with his son on discharge. Comment: NO skin breakdown. Functional Improvement: pt is progressing well and will be Independent at time of discharge. pt continues to present with some memory deficits and some mild processing issues. Summary: Patient's care plan and intermediate manager goals have been reviewed and revised as necessary. Please see the Rehabilitation Signature page for all necessary signatures.
[2020-03-04] MEDS: HYDROCORTISONE 1 % CREAM 30GM TOP PRN (14:05)
[2020-03-04] MEDS: ENOXAPARIN 40 MG/0.4 ML SQ SCH (16:14)
[2020-03-04] MEDS: DOXAZOSIN 2 MG TAB PO SCH (20:53)
[2020-03-04] MEDS: ATORVASTATIN 80 MG TAB PO SCH (20:53)
[2020-03-04] MEDS: DOCUSATE NA/SENNA CONC 1 TAB PO PRN (20:54)
[2020-03-04] MEDS: MELATONIN 3 MG TABLET PO PRN (20:54)
[2020-03-05] MEDS: INSULIN -REGULAR HUMAN 50 UNIT/0.5 ML ML SQ SCH ×4 (07:30→20:00)
[2020-03-05] MEDS: POLYETHYL GLY 3350 17 GM/DOSE PO SCH (08:45)
[2020-03-05] MEDS: MINOCYCLINE HCL 50 MG CAP PO SCH ×2 (08:46→19:49)
[2020-03-05] MEDS: MULTIVITAMINS,THERAPEUT 1 TAB PO SCH (08:47)
[2020-03-05] MEDS: TAMSULOSIN 0.4 MG SR CAP PO SCH (08:47)
[2020-03-05] MEDS: CYANOCOBALAMIN 1,000 MCG TAB PO SCH (08:48)
[2020-03-05] MEDS: CLOPIDOGREL 75 MG TABLET PO SCH (08:48)
[2020-03-05] MEDS: METFORMIN HCL 500 MG TAB PO SCH ×2 (08:49→17:00)
[2020-03-05] MEDS: ASPIRIN 81 MG CHEWABLE TABLET PO SCH (08:49)
[2020-03-05] MEDS: METOPROLOL TAR 50 MG TAB PO SCH ×2 (08:50→19:49)
[2020-03-05] MEDS: LIDOCAINE 4% PATCH TOP SCH (11:31)
[2020-03-05] MEDS: ENOXAPARIN 40 MG/0.4 ML SQ SCH (16:13)
[2020-03-05] MEDS: HYDROCORTISONE 1 % CREAM 30GM TOP PRN (19:49)
[2020-03-05] MEDS: ATORVASTATIN 80 MG TAB PO SCH (19:59)
[2020-03-05] MEDS: DOXAZOSIN 2 MG TAB PO SCH (19:59)
[2020-03-05] MEDS: MELATONIN 3 MG TABLET PO PRN (20:00)
[2020-03-06] MEDS: INSULIN -REGULAR HUMAN 50 UNIT/0.5 ML ML SQ SCH ×4 (07:30→20:19)
[2020-03-06] MEDS: POLYETHYL GLY 3350 17 GM/DOSE PO SCH (08:00)
[2020-03-06] MEDS: METOPROLOL TAR 50 MG TAB PO SCH ×2 (08:11→19:37)
[2020-03-06] MEDS: MULTIVITAMINS,THERAPEUT 1 TAB PO SCH (08:11)
[2020-03-06] MEDS: CYANOCOBALAMIN 1,000 MCG TAB PO SCH (08:12)
[2020-03-06] MEDS: METFORMIN HCL 500 MG TAB PO SCH ×2 (08:13→17:24)
[2020-03-06] MEDS: CLOPIDOGREL 75 MG TABLET PO SCH (08:14)
[2020-03-06] MEDS: TAMSULOSIN 0.4 MG SR CAP PO SCH (08:15)
[2020-03-06] MEDS: ASPIRIN 81 MG CHEWABLE TABLET PO SCH (08:16)
[2020-03-06] MEDS: MINOCYCLINE HCL 50 MG CAP PO SCH ×2 (08:16→19:37)
[2020-03-06] MEDS: LIDOCAINE 4% PATCH TOP SCH (08:17)
[2020-03-06] MEDS ORDERED: POLYETHYL GLY 3350 17 GM/DOSE PO PRN (11:24)
--- NOTE | 2020-03-06 14:36 | FAST ---
[employer] FORM SHIFT START DATE/TIME: 03/06/2020 07:00 (MUSIC THERAPIST) SHIFT END DATE/TIME: 03/06/2020 19:00 (MUSIC THERAPIST) NAME JOHN PAUL POLLARD DATE OF : 1950 DATE OF ADMISSION: 03/01/2020 13:22 (MUSIC THERAPIST) PHONE: AGE: 70 N# [id number] GENDER: Male ENCOUNTER PHYSICIAN: Dr. Gonzalez Fish M.D. 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 EATING: EATING - STEP 1: Does the patient complete the activity by him/herself with no assistance (physical, verbal/nonverbal cueing, setup/clean-up)? No. EATING - STEP 2: Does the patient need only setup/clean-up assistance from one helper? Yes. 1. [id number] ADMISSION PERFORMANCE: Setup or clean-up assistance CODE: 05 ORAL HYGIENE: ORAL HYGIENE - STEP 1: Does the patient complete the activity by him/herself with no assistance (physical, verbal/nonverbal cueing, setup/clean-up)? No. ORAL HYGIENE - STEP 2: Does the patient need only setup/clean-up assistance from one helper? Yes. 1. [id number] ADMISSION PERFORMANCE: Setup or clean-up assistance CODE: 05 TOILETING HYGIENE: TOILETING HYGIENE - STEP 1: Does the patient complete the activity by him/herself with no assistance (physical, verbal/nonverbal cueing, setup/clean-up)? Yes. 1. [id number] ADMISSION PERFORMANCE: Independent CODE: 06 BATHING: Not assessed/no information CODE: - DRESSING - UPPER BODY: DRESSING - UPPER BODY - STEP 1: Does the patient complete the activity by him/herself with no assistance (physical, verbal/nonverbal cueing, setup/clean-up)? No. DRESSING - UPPER BODY - STEP 2: Does the patient need only setup/clean-up assistance from one helper? Yes. 1. [id number] ADMISSION PERFORMANCE: Setup or clean-up assistance CODE: 05 DRESSING - LOWER BODY: DRESSING - LOWER BODY - STEP 1: Does the patient complete the activity by him/herself with no assistance (physical, verbal/nonverbal cueing, setup/clean-up)? No. DRESSING - LOWER BODY - STEP 2: Does the patient need only setup/clean-up assistance from one helper? Yes. 1. [id number] ADMISSION PERFORMANCE: Setup or clean-up assistance CODE: 05 PUTTING ON/TAKING OFF FOOTWEAR: FOOTWEAR - STEP 1: Does the patient complete the activity by him/herself with no assistance (physical, verbal/nonverbal cueing, setup/clean-up)? No. FOOTWEAR - STEP 2: Does the patient need only setup/clean-up assistance from one helper? Yes. 1. [id number] ADMISSION PERFORMANCE: Setup or clean-up assistance CODE: 05 ROLL LEFT AND RIGHT: ROLL LEFT AND RIGHT - STEP 1: Does the patient complete the activity by him/herself with no assistance (physical, verbal/nonverbal cueing, setup/clean-up)? Yes. 1. [id number] ADMISSION PERFORMANCE: Independent CODE: 06 SIT TO LYING: SIT TO LYING - STEP 1: Does the patient complete the activity by him/herself with no assistance (physical, verbal/nonverbal cueing, setup/clean-up)? Yes. 1. [id number] ADMISSION PERFORMANCE: Independent CODE: 06 LYING TO SITTING: LYING TO SITTING ON SIDE OF BED - STEP 1: Does the patient complete the activity by him/herself with no assistance (physical, verbal/nonverbal cueing, setup/clean-up)? Yes. 1. [id number] ADMISSION PERFORMANCE: Independent CODE: 06 SIT TO STAND: SIT TO STAND - STEP 1: Does the patient complete the activity by him/herself with no assistance (physical, verbal/nonverbal cueing, setup/clean-up)? No. SIT TO STAND - STEP 2: Does the patient need only setup/clean-up assistance from one helper? Yes. 1. [id number] ADMISSION PERFORMANCE: Setup or clean-up assistance CODE: 05 TRANSFERS: BED, CHAIR: CHAIR/[id number] TRANSFER - STEP 1: Does the patient complete the activity by him/herself with no assistance (physical, verbal/nonverbal cueing, setup/clean-up)? Yes. 1. [id number] ADMISSION PERFORMANCE: Independent CODE: 06 TRANSFER TOILET: TOILET TRANSFER - STEP 1: Does the patient complete the activity by him/herself with no assistance (physical, verbal/nonverbal cueing, setup/clean-up)? Yes. 1. [id number] ADMISSION PERFORMANCE: Independent CODE: 06 TRANSFERS: CAR: Not assessed/no information CODE: - WALK 10 FEET: WALK 10 FEET - STEP 1: Does the patient complete the activity by him/herself with no assistance (physical, verbal/nonverbal cueing, setup/clean-up)? Yes. 1. [id number] ADMISSION PERFORMANCE: Independent CODE: 06 WALK 50 FEET: WALK 50 FEET - STEP 1: Does the patient complete the activity by him/herself with no assistance (physical, verbal/nonverbal cueing, setup/clean-up)? No. WALK 50 FEET - STEP 2: Does the patient need only setup/clean-up assistance from one helper? Yes. 1. [id number] ADMISSION PERFORMANCE: Setup or clean-up assistance CODE: 05 WALK 150 FEET: Not assessed/no information WALK 150 FEET - STEP 1: Does the patient complete the activity by him/herself with no assistance (physical, verbal/nonverbal cueing, setup/clean-up)? No. WALK 150 FEET - STEP 2: Does the patient need only setup/clean-up assistance from one helper? Yes. 1. [id number] ADMISSION PERFORMANCE: Setup or clean-up assistance CODE: 05 WALK 10 FEET UNEVEN: Not assessed/no information CODE: - 1 STEP (CURB): Not assessed/no information CODE: - PICKING UP OBJECT: Not assessed/no information CODE: - DOES THE PATIENT USE A WHEELCHAIR/SCOOTER? Q1. DOES THE PATIENT USE A WHEELCHAIR/SCOOTER?: No CODE: 0 INDICATE THE TYPE OF WHEELCHAIR/SCOOTER USED: CODE: EXPR INDICATE THE TYPE OF WHEELCHAIR/SCOOTER USED: CODE: EXPR BLADDER AND BOWEL: H350. BLADDER CONTINENCE (3-DAY ASSESSMENT PERIOD): Always continent (no documented incontinence) CODE: 0 H400. BOWEL CONTINENCE (3-DAY ASSESSMENT PERIOD): Always continent CODE: 0 SIGNATURE PANEL: The following modified sections: 1. [id number] Admission Performance, 1. [id number] Admission Performance, 1. [id number] Admission Performance, 1. [id number] Admission Performance, 1. [id number] Admission Performance, 1. [id number] Admission Performance, 1. KR3438V Admission Performance, 1. [id number] Admission Performance , 1. [id number] Admission Performance, 1. [id number] Admission Performance, 1. [id number] Admission Performanc e, 1. [id number] Admission Performance, 1. [id number] Admission Performance, 1. [id number] Admission Performan ce, 1. [id number] Admission Performance, Q1. Does the patient use a wheelchair/scooter?, H350. Bladder C ontinence (3-day assessment period), H400. Bowel Continence (3-day assessment period), H0400 - Commen ts: were [electronically] signed by Lu Murillo [email or web address] on SatMar 06 2020 14:35:29 GMT-0600 ([place])
[2020-03-06] MEDS: ENOXAPARIN 40 MG/0.4 ML SQ SCH (17:24)
--- NOTE | 2020-03-06 17:24 | R.PN ---
PROGRESS NOTES ENCOUNTER DATE AND TIME: 03/06/2020 17:22 (EDGING SUPERVISOR) NAME JOHN PAUL POLLARD DATE OF : 1950 DATE OF ADMISSION: 03/01/2020 13:22 (EDGING SUPERVISOR) CVACHIEF COMPLAINT: Stroke with aphasia. SUBJECTIVE: Pt denied any Shortness of Breath. Pt denied any depression. Over the past 2 days he ambulated 1000' with standby assistance and no assistive device. Up and down 40 steps independently. WBC is 4.1, Hgb 10.7, glucose 115 to 211, prealbumin 28.8. UA is essentially normal. VITAL SIGNS Temperature: 97.5 F SBP/DBP: 140/78 Pulse: 65 Resp: 16 MEDICATION ALLERGIES: No Known Drug Allergies (NKDA) ENVIRONMENTAL ALLERGIES: - Substance Allergies None Known - Other Allergies None Known NURSING: - Shower allowing shower - Bladder care per protocol - Skin care per protocol PRECAUTIONS: - Weight Bearing Precaution WBAT right LE ACTIVITIES OOB only with supervision THERAPIES: - Occupational Therapy Cognitive Retraining. Visual Perceptual Training. - Dietary and Nutrition Adequate Nutrition. Nutritional Education. Nutritional Supplements. - Speech Therapy Cognitive Training. Expressive Language Skills. Memory Strategies. Receptive Language Skills. Speech Intelligibility Training. PHYSICAL EXAM - Gen Alert and awake Lying in bed No apparent distress Oriented to: person, time, and place - Skin No skin breakdown. Normacephalic - Eyes No abnormalities - ENMT No abnormalities - Neck No abnormalities - CVS RRR - Chest No abnormalities - Abd + bowel sounds - GI Soft No abnormalities - No abnormalities - Ext No significant edema - MSK 4+/5 weakness in right lower extremity - Neuro 4/5 strength right lower extremity. - Psych No abnormalities ASSESSMENT: Pt. is a 70 yo Right-handed male of unknown race.On 02/26/2020 Pt. presented to [facility] with sudden onset of right-side weakness.On 02/26/2020 he was admitted to [facility] with diagnosis CVA.His impairment category is Stroke 01 - Right Body (Left Brain) (01.2).Pre-morbidly, Pt. was ind ependent/mod-I in Safety Awareness, Balance, Social Cognition, Self-Care, and Communication; and he h ad good Self-Care and Transfers Control.Currently, he has deficits of Endurance, Safety Awareness, an d Sphincter Control.Pt. is now referred to [facility] for acute in-patient radha abilitation in order to maximize patient's functional independence in activities of daily living, str ength, ROM, and mobility.- Rehab Goal Patient has realistic goal of being discharged at assistance level 7-Ind to reside at Home with Fami ly/Relatives. MDM/PLAN: - Physical Therapy Gait dysfunction - to improve, our physical therapists will perform initial evaluation of pt's statu s upon admission and devise an individualized program for Gait Training, and Wheel Chair mobility Need for home safety evaluation - to improve, our physical therapists will perform initial evaluatio n of pt's status upon admission and devise an individualized program for Home Evaluation Need in caregiver upon discharge - to improve, our physical therapists will perform initial evaluati on of pt's status upon admission and devise an individualized program for Caregiver Training New precaution - to improve, our physical therapists will perform initial evaluation of pt's status upon admission and devise an individualized program for Patient precaution education Edema - to improve, our physical therapists will perform initial evaluation of pt's status upon admi ssion and devise an individualized program for Elevation Training, and Lymphedema Therapy Poor endurance - to improve, our physical therapists will perform initial evaluation of pt's status upon admission and devise an individualized program for Endurance Training Weakness - to improve, our physical therapists will perform initial evaluation of pt's status upon a dmission and devise an individualized program for Aquatic Therapy, Neuromuscular Reeducation, and Str engthening Achieving independence - to improve, our physical therapists will perform initial evaluation of pt's status upon admission and devise an individualized program for Community Reintegration Activities - Occupational Therapy Need for healthcare customer service - to improve, our occupation therapists will perform initial evaluation of pt's status upon admission and devise an individualized program for Caregiver Training Weakness - to improve, our occupation therapists will perform initial evaluation of pt's status upon admission and devise an individualized program for Aquatic Therapy, Balance, Endurance, UE ROM, and UE strengthening - Other See attached MAR (Medication Administration Record) - Diet Type Continue Regular - Diet - Liquid Texture Continue Regular - Tube Feed Continue N/A - Bladder care per protocol - Weight Bearing Precaution WBAT right LE - Skin care per protocol - Diet - Solid Texture Continue Regular - Shower allowing shower for Dementia, TBI, Stroke, or others FUNCTIONAL STATUS: UPDATED AT WEEKLY TEAM CONFERENCE - Bladder Same accident frequency: 7-Ind - No accidents in the past 7 days - Bowel Same accident frequency: 7-Ind - No accidents in the past 7 days - Walking Same score based on distance walked: 0(N/A) Same score based on distance walked: 3(>=150ft) - Wheelchair Same score based on distance traveled: 0(N/A) FUNCTIONAL STATUS: - Self-Care A. Eating Ind B. Grooming Ind C. Bathing sup D. Dressing - Upper Elvis E. Dressing - Lower Liban F. Toileting Elvis - Sphincter Control G. Bladder control Elvis H. Bowel control Elvis - Transfers Control I. Bed/Chair/Wheelchair Elvis J. Toilet sup K. Tub/Shower Elvis - Locomotion L. Walk/Wheelchair (B) Elvis M. Stairs sup - Communication N. Comprehension (B) sup O. Expression (B) Liban - Social Cognition P. Social Interaction sup Q. Problem Solving sup R. Memory sup - Endurance Good - Balance Good - Safety Awareness Good QI SCORES: - Self-Care A. Eating 04-Supervision or touching assistance B. Oral hygiene 03-Partial/moderate assistance C. Toileting hygiene 03-Partial/moderate assistance E. Shower/bathe self 03-Partial/moderate assistance F. Upper body dressing 03-Partial/moderate assistance G. Lower body dressing 03-Partial/moderate assistance H. Putting on/taking off footwear 88-Not attempted due to medical condition or safety concerns - Mobility A. Roll left and right 04-Supervision or touching assistance B. Sit to lying 04-Supervision or touching assistance C. Lying to sitting on side of bed 04-Supervision or touching assistance D. Sit to stand 03-Partial/moderate assistance E. Chair/gph-[id number] transfer 03-Partial/moderate assistance F. Toilet transfer 03-Partial/moderate assistance G. Car transfer 88-Not attempted due to medical condition or safety concerns I. Walk 10 feet 03-Partial/moderate assistance J. Walk 50 feet with two turns 03-Partial/moderate assistance K. Walk 150 feet 03-Partial/moderate assistance L. Walking 10 feet on uneven surfaces 88-Not attempted due to medical condition or safety concerns M. 1 step (curb) 88-Not attempted due to medical condition or safety concerns N. 4 steps 88-Not attempted due to medical condition or safety concerns O. 12 steps 88-Not attempted due to medical condition or safety concerns P. Picking up object 88-Not attempted due to medical condition or safety concerns R. Wheel 50 feet with two turns 88-Not attempted due to medical condition or safety concerns S. Wheel 150 feet 88-Not attempted due to medical condition or safety concerns - Bladder and Bowel Bladder continence Bowel continence - Endurance Fair - Balance Fair - Safety Awareness Fair CURRENT [facility]. DEFICITS: Self-Care, Mobility, Endurance, Balance, and Safety Awareness SIGNATURE PANEL: (EDGING SUPERVISOR)
[2020-03-06] MEDS: DOXAZOSIN 2 MG TAB PO SCH (20:19)
[2020-03-06] MEDS: ATORVASTATIN 80 MG TAB PO SCH (20:19)
[2020-03-06] MEDS: MELATONIN 3 MG TABLET PO PRN (20:19)
[2020-03-07 06:01] LABS: Absolute Lymphocytes (CBC) 2.1 K/uL (0.7-4.9); Basophils % 0.4 % (0-1.3); Lymphocytes % 39.1 % (15.3-44.8); MPV 7.4 fL (7.6-11.3)
[2020-03-07] MEDS: INSULIN -REGULAR HUMAN 50 UNIT/0.5 ML ML SQ SCH ×4 (07:20→20:03)
[2020-03-07 08:27] LABS: Potassium 4.6 mmol/L (3.5-5.1)
[2020-03-07] MEDS: MINOCYCLINE HCL 50 MG CAP PO SCH ×2 (08:32→20:03)
[2020-03-07] MEDS: LIDOCAINE 4% PATCH TOP SCH ×2 (08:32→14:49)
[2020-03-07] MEDS: MULTIVITAMINS,THERAPEUT 1 TAB PO SCH (08:32)
[2020-03-07] MEDS: CYANOCOBALAMIN 1,000 MCG TAB PO SCH (08:33)
[2020-03-07] MEDS: ASPIRIN 81 MG CHEWABLE TABLET PO SCH (08:33)
[2020-03-07] MEDS: METFORMIN HCL 500 MG TAB PO SCH ×2 (08:33→16:34)
[2020-03-07] MEDS: TAMSULOSIN 0.4 MG SR CAP PO SCH (08:33)
[2020-03-07] MEDS: METOPROLOL TAR 50 MG TAB PO SCH ×2 (08:33→20:02)
[2020-03-07] MEDS: CLOPIDOGREL 75 MG TABLET PO SCH (08:34)
[2020-03-07] MEDS: HYDROCORTISONE 1 % CREAM 30GM TOP PRN (08:34)
[2020-03-07] MEDS: ACETAMINOPHEN 500 MG TAB PO PRN ×2 (14:49→17:26)
[2020-03-07] MEDS: ENOXAPARIN 40 MG/0.4 ML SQ SCH (16:33)
--- NOTE | 2020-03-07 17:11 | R.PN ---
PROGRESS NOTES ENCOUNTER DATE AND TIME: 03/07/2020 17:04 (ESTERS AND EMULSIFIERS SUPERVISOR) NAME JOHN PAUL POLLARD DATE OF : 1950 DATE OF ADMISSION: 03/01/2020 13:22 (ESTERS AND EMULSIFIERS SUPERVISOR) CVACHIEF COMPLAINT: Stroke with aphasia. SUBJECTIVE: Pt denied any Shortness of Breath. Pt denied any depression. He ambulated 1250' without an assistive device. Up and down 15 steps with standby assistance, twice.. WBC is 5.4, Hgb 11.0, glucose 135 to 174, calcium 8.4, prealbumin 28.8. UA is essentially normal. Performed speech cancellation tasks with 100 % accuracy. VITAL SIGNS Temperature: 97.9 F SBP/DBP: 152/78 Pulse: 72 Resp: 16 MEDICATION ALLERGIES: No Known Drug Allergies (NKDA) ENVIRONMENTAL ALLERGIES: - Substance Allergies None Known - Other Allergies None Known NURSING: - Shower allowing shower - Bladder care per protocol - Skin care per protocol PRECAUTIONS: - Weight Bearing Precaution WBAT right LE ACTIVITIES OOB only with supervision THERAPIES: - Occupational Therapy Cognitive Retraining. Visual Perceptual Training. - Dietary and Nutrition Adequate Nutrition. Nutritional Education. Nutritional Supplements. - Speech Therapy Cognitive Training. Expressive Language Skills. Memory Strategies. Receptive Language Skills. Speech Intelligibility Training. PHYSICAL EXAM - Gen Alert and awake Lying in bed No apparent distress Oriented to: person, time, and place - Skin No skin breakdown. Normacephalic - Eyes No abnormalities - ENMT No abnormalities - Neck No abnormalities - CVS RRR - Chest No abnormalities - Abd + bowel sounds - GI Soft No abnormalities - No abnormalities - Ext No significant edema - MSK 4+/5 weakness in right lower extremity - Neuro 4/5 strength right lower extremity. - Psych No abnormalities ASSESSMENT: Pt. is a 70 yo Right-handed male of unknown race.On 02/26/[address] [facility] with sudden onset of right-side weakness.On 02/26/2020 he was admitted to [facility] with diagnosis CVA.His impairment category is Stroke 01 - Right Body (Left Brain) (01.2).Pre-morbidly, Pt. was ind ependent/mod-I in Safety Awareness, Balance, Social Cognition, Self-Care, and Communication; and he h ad good Self-Care and Transfers Control.Currently, he has deficits of Endurance, Safety Awareness, an d Sphincter Control.Pt. is now referred to [facility] for acute in-patient radha abilitation in order to maximize patient's functional independence in activities of daily living, str ength, ROM, and mobility.- Rehab Goal Patient has realistic goal of being discharged at assistance level 7-Ind to reside at Home with Fami ly/Relatives. MDM/PLAN: - Physical Therapy Gait dysfunction - to improve, our physical therapists will perform initial evaluation of pt's statu s upon admission and devise an individualized program for Gait Training, and Wheel Chair mobility Need for home safety evaluation - to improve, our physical therapists will perform initial evaluatio n of pt's status upon admission and devise an individualized program for Home Evaluation Need in caregiver upon discharge - to improve, our physical therapists will perform initial evaluati on of pt's status upon admission and devise an individualized program for Caregiver Training New precaution - to improve, our physical therapists will perform initial evaluation of pt's status upon admission and devise an individualized program for Patient precaution education Edema - to improve, our physical therapists will perform initial evaluation of pt's status upon admi ssion and devise an individualized program for Elevation Training, and Lymphedema Therapy Poor endurance - to improve, our physical therapists will perform initial evaluation of pt's status upon admission and devise an individualized program for Endurance Training Weakness - to improve, our physical therapists will perform initial evaluation of pt's status upon a dmission and devise an individualized program for Aquatic Therapy, Neuromuscular Reeducation, and Str engthening Achieving independence - to improve, our physical therapists will perform initial evaluation of pt's status upon admission and devise an individualized program for Community Reintegration Activities - Occupational Therapy Need for foster care case manager - to improve, our occupation therapists will perform initial evaluation of pt's status upon admission and devise an individualized program for Caregiver Training Weakness - to improve, our occupation therapists will perform initial evaluation of pt's status upon admission and devise an individualized program for Aquatic Therapy, Balance, Endurance, UE ROM, and UE strengthening - Other See attached MAR (Medication Administration Record) - Diet Type Continue Regular - Diet - Liquid Texture Continue Regular - Tube Feed Continue N/A - Bladder care per protocol - Weight Bearing Precaution WBAT right LE - Skin care per protocol - Diet - Solid Texture Continue Regular - Shower allowing shower for Dementia, TBI, Stroke, or others FUNCTIONAL STATUS: UPDATED AT WEEKLY TEAM CONFERENCE - Bladder Same accident frequency: 7-Ind - No accidents in the past 7 days - Bowel Same accident frequency: 7-Ind - No accidents in the past 7 days - Walking Same score based on distance walked: 0(N/A) Same score based on distance walked: 3(>=150ft) - Wheelchair Same score based on distance traveled: 0(N/A) FUNCTIONAL STATUS: - Self-Care A. Eating Ind B. Grooming Ind C. Bathing sup D. Dressing - Upper Elvis E. Dressing - Lower Liban F. Toileting Elvis - Sphincter Control G. Bladder control Elvis H. Bowel control Elvis - Transfers Control I. Bed/Chair/Wheelchair Elvis J. Toilet sup K. Tub/Shower Elvis - Locomotion L. Walk/Wheelchair (B) Elvis M. Stairs sup - Communication N. Comprehension (B) sup O. Expression (B) Liban - Social Cognition P. Social Interaction sup Q. Problem Solving sup R. Memory sup - Endurance Good - Balance Good - Safety Awareness Good QI SCORES: - Self-Care A. Eating 04-Supervision or touching assistance B. Oral hygiene 03-Partial/moderate assistance C. Toileting hygiene 03-Partial/moderate assistance E. Shower/bathe self 03-Partial/moderate assistance F. Upper body dressing 03-Partial/moderate assistance G. Lower body dressing 03-Partial/moderate assistance H. Putting on/taking off footwear 88-Not attempted due to medical condition or safety concerns - Mobility A. Roll left and right 04-Supervision or touching assistance B. Sit to lying 04-Supervision or touching assistance C. Lying to sitting on side of bed 04-Supervision or touching assistance D. Sit to stand 03-Partial/moderate assistance E. Chair/yci-[id number] transfer 03-Partial/moderate assistance F. Toilet transfer 03-Partial/moderate assistance G. Car transfer 88-Not attempted due to medical condition or safety concerns I. Walk 10 feet 03-Partial/moderate assistance J. Walk 50 feet with two turns 03-Partial/moderate assistance K. Walk 150 feet 03-Partial/moderate assistance L. Walking 10 feet on uneven surfaces 88-Not attempted due to medical condition or safety concerns M. 1 step (curb) 88-Not attempted due to medical condition or safety concerns N. 4 steps 88-Not attempted due to medical condition or safety concerns O. 12 steps 88-Not attempted due to medical condition or safety concerns P. Picking up object 88-Not attempted due to medical condition or safety concerns R. Wheel 50 feet with two turns 88-Not attempted due to medical condition or safety concerns S. Wheel 150 feet 88-Not attempted due to medical condition or safety concerns - Bladder and Bowel Bladder continence Bowel continence - Endurance Fair - Balance Fair - Safety Awareness Fair CURRENT [facility]. 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
[2020-03-07] MEDS: MELATONIN 3 MG TABLET PO PRN (20:02)
[2020-03-07] MEDS: DOXAZOSIN 2 MG TAB PO SCH (20:03)
[2020-03-07] MEDS: ATORVASTATIN 80 MG TAB PO SCH (20:03)
[2020-03-08] MEDS: LIDOCAINE 4% PATCH TOP SCH (07:11)
[2020-03-08] MEDS: HYDROCORTISONE 1 % CREAM 30GM TOP PRN (07:12)
[2020-03-08] MEDS: INSULIN -REGULAR HUMAN 50 UNIT/0.5 ML ML SQ SCH ×4 (07:30→20:54)
[2020-03-08] MEDS: CYANOCOBALAMIN 1,000 MCG TAB PO SCH (08:14)
[2020-03-08] MEDS: MULTIVITAMINS,THERAPEUT 1 TAB PO SCH (08:14)
[2020-03-08] MEDS: TAMSULOSIN 0.4 MG SR CAP PO SCH (08:14)
[2020-03-08] MEDS: MINOCYCLINE HCL 50 MG CAP PO SCH (08:14)
[2020-03-08] MEDS: ASPIRIN 81 MG CHEWABLE TABLET PO SCH (08:15)
[2020-03-08] MEDS: METFORMIN HCL 500 MG TAB PO SCH ×2 (08:15→16:50)
[2020-03-08] MEDS: METOPROLOL TAR 50 MG TAB PO SCH ×2 (08:15→20:53)
[2020-03-08] MEDS: CLOPIDOGREL 75 MG TABLET PO SCH (08:15)
[2020-03-08] MEDS: ENOXAPARIN 40 MG/0.4 ML SQ SCH (16:50)
--- NOTE | 2020-03-08 18:51 | R.PN ---
PROGRESS NOTES ENCOUNTER DATE AND TIME: 03/08/2020 18:49 (CHECKER CASHIER) NAME JOHN PAUL POLLARD DATE OF : 1950 DATE OF ADMISSION: 03/01/2020 13:22 (CHECKER CASHIER) CVACHIEF COMPLAINT: Stroke with aphasia. SUBJECTIVE: Pt denied any Shortness of Breath. Pt denied any depression. He ambulated 1750' without an assistive device and standby assistance. Up and down 20 steps with roseanne dby assistance. WBC is 5.4, Hgb 11.0, glucose 77 to 117, calcium 8.4, prealbumin 28.8. UA is essentially normal. Performed speech cancellation tasks with 100 % accuracy. VITAL SIGNS Temperature: 97.4 F SBP/DBP: 153/81 Pulse:66 Resp: 15 MEDICATION ALLERGIES: No Known Drug Allergies (NKDA) ENVIRONMENTAL ALLERGIES: - Substance Allergies None Known - Other Allergies None Known NURSING: - Shower allowing shower - Bladder care per protocol - Skin care per protocol PRECAUTIONS: - Weight Bearing Precaution WBAT right LE ACTIVITIES OOB only with supervision THERAPIES: - Occupational Therapy Cognitive Retraining. Visual Perceptual Training. - Dietary and Nutrition Adequate Nutrition. Nutritional Education. Nutritional Supplements. - Speech Therapy Cognitive Training. Expressive Language Skills. Memory Strategies. Receptive Language Skills. Speech Intelligibility Training. PHYSICAL EXAM - Gen Alert and awake Lying in bed No apparent distress Oriented to: person, time, and place - Skin No skin breakdown. Normacephalic - Eyes No abnormalities - ENMT No abnormalities - Neck No abnormalities - CVS RRR - Chest No abnormalities - Abd + bowel sounds - GI Soft No abnormalities - No abnormalities - Ext No significant edema - MSK 4+/5 weakness in right lower extremity - Neuro 4/5 strength right lower extremity. - Psych No abnormalities ASSESSMENT: Pt. is a 70 yo Right-handed male of unknown race.On 02/26/2020 Pt. presented to [facility] with sudden onset of right-side weakness.On 02/26/2020 he was admitted to [facility] with diagnosis CVA.His impairment category is Stroke 01 - Right Body (Left Brain) (01.2).Pre-morbidly, Pt. was ind ependent/mod-I in Safety Awareness, Balance, Social Cognition, Self-Care, and Communication; and he h ad good Self-Care and Transfers Control.Currently, he has deficits of Endurance, Safety Awareness, an d Sphincter Control.Pt. is now referred to [facility] for acute in-patient radha abilitation in order to maximize patient's functional independence in activities of daily living, str ength, ROM, and mobility.- Rehab Goal Patient has realistic goal of being discharged at assistance level 7-Ind to reside at Home with Fami ly/Relatives. MDM/PLAN: - Physical Therapy Gait dysfunction - to improve, our physical therapists will perform initial evaluation of pt's statu s upon admission and devise an individualized program for Gait Training, and Wheel Chair mobility Need for home safety evaluation - to improve, our physical therapists will perform initial evaluatio n of pt's status upon admission and devise an individualized program for Home Evaluation Need in caregiver upon discharge - to improve, our physical therapists will perform initial evaluati on of pt's status upon admission and devise an individualized program for Caregiver Training New precaution - to improve, our physical therapists will perform initial evaluation of pt's status upon admission and devise an individualized program for Patient precaution education Edema - to improve, our physical therapists will perform initial evaluation of pt's status upon admi ssion and devise an individualized program for Elevation Training, and Lymphedema Therapy Poor endurance - to improve, our physical therapists will perform initial evaluation of pt's status upon admission and devise an individualized program for Endurance Training Weakness - to improve, our physical therapists will perform initial evaluation of pt's status upon a dmission and devise an individualized program for Aquatic Therapy, Neuromuscular Reeducation, and Str engthening Achieving independence - to improve, our physical therapists will perform initial evaluation of pt's status upon admission and devise an individualized program for Community Reintegration Activities - Occupational Therapy Need for small animal caretaker - to improve, our occupation therapists will perform initial evaluation of pt's status upon admission and devise an individualized program for Caregiver Training Weakness - to improve, our occupation therapists will perform initial evaluation of pt's status upon admission and devise an individualized program for Aquatic Therapy, Balance, Endurance, UE ROM, and UE strengthening - Other See attached MAR (Medication Administration Record) - Diet Type Continue Regular - Diet - Liquid Texture Continue Regular - Tube Feed Continue N/A - Bladder care per protocol - Weight Bearing Precaution WBAT right LE - Skin care per protocol - Diet - Solid Texture Continue Regular - Shower allowing shower for Dementia, TBI, Stroke, or others FUNCTIONAL STATUS: UPDATED AT WEEKLY TEAM CONFERENCE - Bladder Same accident frequency: 7-Ind - No accidents in the past 7 days - Bowel Same accident frequency: 7-Ind - No accidents in the past 7 days - Walking Same score based on distance walked: 0(N/A) Same score based on distance walked: 3(>=150ft) - Wheelchair Same score based on distance traveled: 0(N/A) FUNCTIONAL STATUS: - Self-Care A. Eating Ind B. Grooming Ind C. Bathing sup D. Dressing - Upper Elvis E. Dressing - Lower Liban F. Toileting Elvis - Sphincter Control G. Bladder control Elvis H. Bowel control Elvis - Transfers Control I. Bed/Chair/Wheelchair Elvis J. Toilet sup K. Tub/Shower Elvis - Locomotion L. Walk/Wheelchair (B) Elvis M. Stairs sup - Communication N. Comprehension (B) sup O. Expression (B) Liban - Social Cognition P. Social Interaction sup Q. Problem Solving sup R. Memory sup - Endurance Good - Balance Good - Safety Awareness Good QI SCORES: - Self-Care A. Eating 04-Supervision or touching assistance B. Oral hygiene 03-Partial/moderate assistance C. Toileting hygiene 03-Partial/moderate assistance E. Shower/bathe self 03-Partial/moderate assistance F. Upper body dressing 03-Partial/moderate assistance G. Lower body dressing 03-Partial/moderate assistance H. Putting on/taking off footwear 88-Not attempted due to medical condition or safety concerns - Mobility A. Roll left and right 04-Supervision or touching assistance B. Sit to lying 04-Supervision or touching assistance C. Lying to sitting on side of bed 04-Supervision or touching assistance D. Sit to stand 03-Partial/moderate assistance E. Chair/qko-mb-wxmsv transfer 03-Partial/moderate assistance F. Toilet transfer 03-Partial/moderate assistance G. Car transfer 88-Not attempted due to medical condition or safety concerns I. Walk 10 feet 03-Partial/moderate assistance J. Walk 50 feet with two turns 03-Partial/moderate assistance K. Walk 150 feet 03-Partial/moderate assistance L. Walking 10 feet on uneven surfaces 88-Not attempted due to medical condition or safety concerns M. 1 step (curb) 88-Not attempted due to medical condition or safety concerns N. 4 steps 88-Not attempted due to medical condition or safety concerns O. 12 steps 88-Not attempted due to medical condition or safety concerns P. Picking up object 88-Not attempted due to medical condition or safety concerns R. Wheel 50 feet with two turns 88-Not attempted due to medical condition or safety concerns S. Wheel 150 feet 88-Not attempted due to medical condition or safety concerns - Bladder and Bowel Bladder continence Bowel continence - Endurance Fair - Balance Fair - Safety Awareness Fair CURRENT [facility]. DEFICITS: Self-Care, Mobility, Endurance, Balance, and Safety Awareness SIGNATURE PANEL: (CHECKER CASHIER)
[2020-03-08] MEDS: ATORVASTATIN 80 MG TAB PO SCH (20:53)
[2020-03-08] MEDS: MELATONIN 3 MG TABLET PO PRN (20:53)
[2020-03-08] MEDS: DOXAZOSIN 2 MG TAB PO SCH (20:54)
[2020-03-09 07:29] VITALS: BP 164/71; TEMP 98.2
[2020-03-09] MEDS: INSULIN -REGULAR HUMAN 50 UNIT/0.5 ML ML SQ SCH ×2 (07:30→11:30)
[2020-03-09] MEDS: TAMSULOSIN 0.4 MG SR CAP PO SCH (07:42)
[2020-03-09] MEDS: METFORMIN HCL 500 MG TAB PO SCH (07:42)
[2020-03-09] MEDS: CLOPIDOGREL 75 MG TABLET PO SCH (07:42)
[2020-03-09] MEDS: ASPIRIN 81 MG CHEWABLE TABLET PO SCH (07:42)
[2020-03-09] MEDS: MULTIVITAMINS,THERAPEUT 1 TAB PO SCH (07:42)
[2020-03-09] MEDS: CYANOCOBALAMIN 1,000 MCG TAB PO SCH (07:43)
[2020-03-09] MEDS: METOPROLOL TAR 50 MG TAB PO SCH (07:43)
[2020-03-09] MEDS: LIDOCAINE 4% PATCH TOP SCH (10:14)
--- NOTE | 2020-03-09 13:52 | FAST ---
QUALITY [employer]ICAT[employer] FORM SHIFT START DATE/TIME: 03/09/2020 07:00 (CRIMINAL JUSTICE FACULTY) SHIFT END DATE/TIME: 03/09/2020 19:00 (CRIMINAL JUSTICE FACULTY) NAME JOHN PAUL POLLARD DATE OF : 1950 DATE OF ADMISSION: 03/01/2020 13:22 (CRIMINAL JUSTICE FACULTY) PHONE: AGE: 70 N# [id number] GENDER: Male ENCOUNTER PHYSICIAN: Dr. Gonzalez Fish M.D. 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 EATING: EATING - STEP 1: Does the patient complete the activity by him/herself with no assistance (physical, verbal/nonverbal cueing, setup/clean-up)? No. EATING - STEP 2: Does the patient need only setup/clean-up assistance from one helper? Yes. 1. [id number] ADMISSION PERFORMANCE: Setup or clean-up assistance CODE: 05 ORAL HYGIENE: ORAL HYGIENE - STEP 1: Does the patient complete the activity by him/herself with no assistance (physical, verbal/nonverbal cueing, setup/clean-up)? No. ORAL HYGIENE - STEP 2: Does the patient need only setup/clean-up assistance from one helper? Yes. 1. [id number] ADMISSION PERFORMANCE: Setup or clean-up assistance CODE: 05 TOILETING HYGIENE: TOILETING HYGIENE - STEP 1: Does the patient complete the activity by him/herself with no assistance (physical, verbal/nonverbal cueing, setup/clean-up)? Yes. 1. [id number] ADMISSION PERFORMANCE: Independent CODE: 06 BATHING: Not assessed/no information CODE: - DRESSING - UPPER BODY: DRESSING - UPPER BODY - STEP 1: Does the patient complete the activity by him/herself with no assistance (physical, verbal/nonverbal cueing, setup/clean-up)? Yes. 1. [id number] ADMISSION PERFORMANCE: Independent CODE: 06 DRESSING - LOWER BODY: DRESSING - LOWER BODY - STEP 1: Does the patient complete the activity by him/herself with no assistance (physical, verbal/nonverbal cueing, setup/clean-up)? Yes. 1. [id number] ADMISSION PERFORMANCE: Independent CODE: 06 PUTTING ON/TAKING OFF FOOTWEAR: FOOTWEAR - STEP 1: Does the patient complete the activity by him/herself with no assistance (physical, verbal/nonverbal cueing, setup/clean-up)? No. FOOTWEAR - STEP 2: Does the patient need only setup/clean-up assistance from one helper? Yes. 1. [id number] ADMISSION PERFORMANCE: Setup or clean-up assistance CODE: 05 ROLL LEFT AND RIGHT: ROLL LEFT AND RIGHT - STEP 1: Does the patient complete the activity by him/herself with no assistance (physical, verbal/nonverbal cueing, setup/clean-up)? Yes. 1. [id number] ADMISSION PERFORMANCE: Independent CODE: 06 SIT TO LYING: SIT TO LYING - STEP 1: Does the patient complete the activity by him/herself with no assistance (physical, verbal/nonverbal cueing, setup/clean-up)? No. SIT TO LYING - STEP 2: Does the patient need only setup/clean-up assistance from one helper? Yes. 1. [id number] ADMISSION PERFORMANCE: Setup or clean-up assistance CODE: 05 LYING TO SITTING: LYING TO SITTING ON SIDE OF BED - STEP 1: Does the patient complete the activity by him/herself with no assistance (physical, verbal/nonverbal cueing, setup/clean-up)? Yes. 1. [id number] ADMISSION PERFORMANCE: Independent CODE: 06 SIT TO STAND: SIT TO STAND - STEP 1: Does the patient complete the activity by him/herself with no assistance (physical, verbal/nonverbal cueing, setup/clean-up)? Yes. 1. [id number] ADMISSION PERFORMANCE: Independent CODE: 06 TRANSFERS: BED, CHAIR: CHAIR/[id number] TRANSFER - STEP 1: Does the patient complete the activity by him/herself with no assistance (physical, verbal/nonverbal cueing, setup/clean-up)? Yes. 1. [id number] ADMISSION PERFORMANCE: Independent CODE: 06 TRANSFER TOILET: TOILET TRANSFER - STEP 1: Does the patient complete the activity by him/herself with no assistance (physical, verbal/nonverbal cueing, setup/clean-up)? Yes. 1. [id number] ADMISSION PERFORMANCE: Independent CODE: 06 TRANSFERS: CAR: Not assessed/no information CODE: - WALK 10 FEET: WALK 10 FEET - STEP 1: Does the patient complete the activity by him/herself with no assistance (physical, verbal/nonverbal cueing, setup/clean-up)? No. WALK 10 FEET - STEP 2: Does the patient need only setup/clean-up assistance from one helper? Yes. 1. [id number] ADMISSION PERFORMANCE: Setup or clean-up assistance CODE: 05 WALK 50 FEET: WALK 50 FEET - STEP 1: Does the patient complete the activity by him/herself with no assistance (physical, verbal/nonverbal cueing, setup/clean-up)? No. WALK 50 FEET - STEP 2: Does the patient need only setup/clean-up assistance from one helper? Yes. 1. [id number] ADMISSION PERFORMANCE: Setup or clean-up assistance CODE: 05 WALK 150 FEET: WALK 150 FEET - STEP 1: Does the patient complete the activity by him/herself with no assistance (physical, verbal/nonverbal cueing, setup/clean-up)? No. WALK 150 FEET - STEP 2: Does the patient need only setup/clean-up assistance from one helper? Yes. 1. [id number] ADMISSION PERFORMANCE: Setup or clean-up assistance CODE: WALK 10 FEET UNEVEN: Not assessed/no information CODE: - 1 STEP (CURB): Not assessed/no information CODE: - PICKING UP OBJECT: Not assessed/no information CODE: - DOES THE PATIENT USE A WHEELCHAIR/SCOOTER? Q1. DOES THE PATIENT USE A WHEELCHAIR/SCOOTER?: No CODE: 0 INDICATE THE TYPE OF WHEELCHAIR/SCOOTER USED: CODE: EXPR INDICATE THE TYPE OF WHEELCHAIR/SCOOTER USED: CODE: EXPR BLADDER AND BOWEL: H350. BLADDER CONTINENCE (3-DAY ASSESSMENT PERIOD): Always continent (no documented incontinence) CODE: 0 H400. BOWEL CONTINENCE (3-DAY ASSESSMENT PERIOD): Always continent CODE: 0 SIGNATURE PANEL: The following modified sections: 1. [id number] Admission Performance, 1. [id number] Admission Performance, 1. [id number] Admission Performance, 1. DK0429o Admission Performance, 1. DK4368c Admission Performance, 1. PQ2387a Admission Performance, 1. [id number] Admission Performance, 1. [id number] Admission Performance , 1. PD1102O Admission Performance, 1. [id number] Admission Performance, 1. ZQ3580I Admission Performanc e, 1. [id number] Admission Performance, 1. [id number] Admission Performance, 1. [id number] Admission Performan ce, 1. [id number] Admission Performance, Q1. Does the patient use a wheelchair/scooter?, H350. Bladder C ontinence (3-day assessment period), H400. Bowel Continence (3-day assessment period) were [rui jeannie] signed by Lu Murillo C.N.A. on SatMar 09 2020 13:51:13 GMT-0600 (Central Standard Time)
--- NOTE | 2020-03-09 19:47 | R.PN ---
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 SUBJECTIVE: Pt denied any Shortness of Breath. Pt denied any depression. He ambulated 750' without an assistive device and standby assistance. Up and down 20 steps with indep endence. He will be discharged home today with continued outpatient PT. WBC is 5.4, Hgb 11.0, glucose 162 to 189, calcium 8.4, prealbumin 28.8. UA is essentially normal. Performed speech cancellation tasks with 100 % accuracy. VITAL SIGNS Temperature: 98.2 F SBP/DBP: 164/71 Pulse: 70 Resp: 16 MEDICATION ALLERGIES: No Known Drug Allergies (NKDA) ENVIRONMENTAL ALLERGIES: - Substance Allergies None Known - Other Allergies None Known NURSING: - Shower allowing shower - Bladder care per protocol - Skin care per protocol PRECAUTIONS: - Weight Bearing Precaution WBAT right LE ACTIVITIES OOB only with supervision THERAPIES: - Occupational Therapy Cognitive Retraining. Visual Perceptual Training. - Dietary and Nutrition Adequate Nutrition. Nutritional Education. Nutritional Supplements. - Speech Therapy Cognitive Training. Expressive Language Skills. Memory Strategies. Receptive Language Skills. Speech Intelligibility Training. PHYSICAL EXAM - Gen Alert and awake Lying in bed No apparent distress Oriented to: person, time, and place - Skin No skin breakdown. Normacephalic - Eyes No abnormalities - ENMT No abnormalities - Neck No abnormalities - CVS RRR - Chest No abnormalities - Abd + bowel sounds - GI Soft No abnormalities - No abnormalities - Ext No significant edema - MSK 4+/5 weakness in right lower extremity - Neuro 4/5 strength right lower extremity. - Psych No abnormalities ASSESSMENT: Pt. is a 70 yo Right-handed male of unknown race.On 02/26/2020 Pt. presented to [facility] with sudden onset of right-side weakness.On 02/26/2020 he was admitted to [facility] with diagnosis CVA.His impairment category is Stroke 01 - Right Body (Left Brain) (01.2).Pre-morbidly, Pt. was ind ependent/mod-I in Safety Awareness, Balance, Social Cognition, Self-Care, and Communication; and he h ad good Self-Care and Transfers Control.Currently, he has deficits of Endurance, Safety Awareness, an d Sphincter Control.Pt. is now referred to [facility] for acute in-patient radha abilitation in order to maximize patient's functional independence in activities of daily living, str ength, ROM, and mobility.- Rehab Goal Patient has realistic goal of being discharged at assistance level 7-Ind to reside at Home with Fami ly/Relatives. MDM/PLAN: - Physical Therapy Gait dysfunction - to improve, our physical therapists will perform initial evaluation of pt's statu s upon admission and devise an individualized program for Gait Training, and Wheel Chair mobility Need for home safety evaluation - to improve, our physical therapists will perform initial evaluatio n of pt's status upon admission and devise an individualized program for Home Evaluation Need in caregiver upon discharge - to improve, our physical therapists will perform initial evaluati on of pt's status upon admission and devise an individualized program for Caregiver Training New precaution - to improve, our physical therapists will perform initial evaluation of pt's status upon admission and devise an individualized program for Patient precaution education Edema - to improve, our physical therapists will perform initial evaluation of pt's status upon admi ssion and devise an individualized program for Elevation Training, and Lymphedema Therapy Poor endurance - to improve, our physical therapists will perform initial evaluation of pt's status upon admission and devise an individualized program for Endurance Training Weakness - to improve, our physical therapists will perform initial evaluation of pt's status upon a dmission and devise an individualized program for Aquatic Therapy, Neuromuscular Reeducation, and Str engthening Achieving independence - to improve, our physical therapists will perform initial evaluation of pt's status upon admission and devise an individualized program for Community Reintegration Activities - Occupational Therapy Need for manager of care - to improve, our occupation therapists will perform initial evaluation of pt's status upon admission and devise an individualized program for Caregiver Training Weakness - to improve, our occupation therapists will perform initial evaluation of pt's status upon admission and devise an individualized program for Aquatic Therapy, Balance, Endurance, UE ROM, and UE strengthening - Other See attached MAR (Medication Administration Record) - Diet Type Continue Regular - Diet - Liquid Texture Continue Regular - Tube Feed Continue N/A - Bladder care per protocol - Weight Bearing Precaution WBAT right LE - Skin care per protocol - Diet - Solid Texture Continue Regular - Shower allowing shower for Dementia, TBI, Stroke, or others FUNCTIONAL STATUS: UPDATED AT WEEKLY TEAM CONFERENCE - Bladder Same accident frequency: 7-Ind - No accidents in the past 7 days - Bowel Same accident frequency: 7-Ind - No accidents in the past 7 days - Walking Same score based on distance walked: 0(N/A) Same score based on distance walked: 3(>=150ft) - Wheelchair Same score based on distance traveled: 0(N/A) FUNCTIONAL STATUS: - Self-Care A. Eating Ind B. Grooming Ind C. Bathing sup D. Dressing - Upper Elvis E. Dressing - Lower Liban F. Toileting Elvis - Sphincter Control G. Bladder control Elvis H. Bowel control Elvis - Transfers Control I. Bed/Chair/Wheelchair Elvis J. Toilet sup K. Tub/Shower lEvis - Locomotion L. Walk/Wheelchair (B) Elvis M. Stairs sup - Communication N. Comprehension (B) sup O. Expression (B) Liban - Social Cognition P. Social Interaction sup Q. Problem Solving sup R. Memory sup - Endurance Good - Balance Good - Safety Awareness Good QI SCORES: - Self-Care A. Eating 04-Supervision or touching assistance B. Oral hygiene 03-Partial/moderate assistance C. Toileting hygiene 03-Partial/moderate assistance E. Shower/bathe self 03-Partial/moderate assistance F. Upper body dressing 03-Partial/moderate assistance G. Lower body dressing 03-Partial/moderate assistance H. Putting on/taking off footwear 88-Not attempted due to medical condition or safety concerns - Mobility A. Roll left and right 04-Supervision or touching assistance B. Sit to lying 04-Supervision or touching assistance C. Lying to sitting on side of bed 04-Supervision or touching assistance D. Sit to stand 03-Partial/moderate assistance E. Chair/uea-xo-qbbma transfer 03-Partial/moderate assistance F. Toilet transfer 03-Partial/moderate assistance G. Car transfer 88-Not attempted due to medical condition or safety concerns I. Walk 10 feet 03-Partial/moderate assistance J. Walk 50 feet with two turns 03-Partial/moderate assistance K. Walk 150 feet 03-Partial/moderate assistance L. Walking 10 feet on uneven surfaces 88-Not attempted due to medical condition or safety concerns M. 1 step (curb) 88-Not attempted due to medical condition or safety concerns N. 4 steps 88-Not attempted due to medical condition or safety concerns O. 12 steps 88-Not attempted due to medical condition or safety concerns P. Picking up object 88-Not attempted due to medical condition or safety concerns R. Wheel 50 feet with two turns 88-Not attempted due to medical condition or safety concerns S. Wheel 150 feet 88-Not attempted due to medical condition or safety concerns - Bladder and Bowel Bladder continence Bowel continence - Endurance Fair - Balance Fair - Safety Awareness Fair CURRENT [facility]. 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
== END 2020-03-09 14:40 | disposition home or self-care (01) | DRG 57 ==
LOC: 5TH 15:22
PROVIDERS: ADMIT Psychiatry & Neurology Neurology with Special Qualifications in Child Neurology; ATTEND Psychiatry & Neurology Neurology with Special Qualifications in Child Neurology
DX: I69.320 Aphasia following cerebral infarction (principal); I10 Essential (primary) hypertension; E11.9 Type 2 diabetes mellitus without complications; I25.10 Atherosclerotic heart disease of native coronary artery without angina pectoris; G47.33 Obstructive sleep apnea (adult) (pediatric); Z95.5 Presence of coronary angioplasty implant and graft; Z20.828 Contact with and (suspected) exposure to other viral communicable diseases
CPT/HCPCS: 36415; 80048; 81001; 82040; 82947; 83735; 84134; 85025; 87086; 87088; 92523; 97110; 97112; 97116; 97127; 97161; 97530; J1650; J1815; U0002; U0003

== ENCOUNTER 2020-03-14 15:48 | Emergency (ER) | payer OTHER ==
--- OUTSIDE RECORDS SUMMARY | 2020-03-14 15:50 | XMS REPORT | Clinical Summary ---
:1950 Author Organization [facility] Address [address] [place] [id number] Care Team Providers Name Role Phone Jb [...] BY MOUTH Coronary artery DAILY disease involving agdaagux coronary artery of agdaagux heart without angina pectoris, Abnormal EKG rosuvastatin Take 1 tablet 90 tablet 3 05/05/2018 08/18/2019 D iscontinued (CRESTOR) 20 MG (20 mg total) tabletIndications: by mouth Coronary artery daily. 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 05/10/2018 Abnormal EKG 05/10/2018 SOB (shortness of breath) 05/10/2018 Benign essential hypertension 06/03/2012 Diabetes mellitus type 2, uncontrolled, without compli cations 06/03/2012 Overview: Overview: ICD10 Diagnosis Term Safety Sitter Utility HLD (hyperlipidemia) 06/03/2012 Encounters Date Type Specialty Care Team Description 08/18/2019 Refill Cardiology Patrick Zarate MD Med Refi ll after 03/14/2019 Family History Medical History Relation Name Comments [...] INFLUENZA VACCINE 11/28/2019 Results Not on fileafter 03/14/2019 Insurance Payer Benefit Plan / Subscriber ID Effective Dates Phone Addre ss Type Group MEDICARE MEDICARE PART A [id number] 2013-Present RUIZ SALGUERO Medicare AND B Advance Directives For more information, please contact: [phone] Type Date Recorded Patient International Editorial Producer Explanati on Advance Directives, Living Will and Medical Power of Manager [employer]
--- OUTSIDE RECORDS SUMMARY | 2020-03-14 15:51 | XMS REPORT | Clinical Summary ---
:1950 Author Organization [facility] Address [address] [place] [address] Care Team Providers Name Role Phone Pcp Primary Care Provider Unavailable Pcp Primary Care Provider Unavailable Unknownmeds Primary Care Provider Unavailable Allergies Active Allergy Reactions Severity Noted Date Comments Metoclopramide Hcl Rash Low 06/03/2012 Medications Medication Sig Dispensed Refills Start End Date Status Date doxazosin Take 2 mg by mouth 0 A ctive (CARDURA) 2 MG nightly. tablet aspirin 81 MG EC Take 1 tablet [...] ns (NEPHRO-YANDY) days. 0.8 mg Tab tablet atorvastatin Take 1 tablet (80 30 tablet [...] 0 20 (Insulin Pen route 3 (three) [place]) Ndle times daily for 30 days. rosuvastatin [...] daily. 20 (Stop T aking at Discharge) metFORMIN Take 1,000 mg by 0 03/01/20 [...] injection daily before meals for 125 days. mINOCYCLine Take 1 capsule 10 capsule 0 03/06/20 Ex pired (MINOCIN,DYNACIN (100 mg total) by 0 20 ) 100 MG capsule mouth every 12 (twelve) hours for 10 doses. 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 [...] Only General Internal Medicine 02/26/2020 Travel 01/05/2020 [facility] Computed Wendy, -Ady Clear cell magnolia l cell Encounter Tomography MD Remy carcinoma, [facility] Computed Wendy, -Ady Clear cell magnolia l cell Encounter Tomography MD Remy carcinoma, left ([facility]CC[facility] 12/29/2019 Outside Orders Central Scheduling YeKaitlin early-Ady Clear c ruma renal cell MD Remy carcinoma, left (HCC) (Primary Dx) 10/16/2019 [facility] Computed Wendy, -Ady Clear cell magnolia l cell Encounter Tomography MD Remy carcinoma, left (HCC) [facility] 10/16[facility]2019 Hospital Computed Wendy, -Ady Clear cell magnolia l cell Encounter Tomography MD Remy carcinoma, left (HCC) [facility] 07/31/2019 Outside Orders Central Scheduling Wendy, Kaitlin-Ady Clear c ruma renal cell MD Remy carcinoma, left (HCC) (Primary Dx) 06/15/2019 Hospital Computed Osbaldo Rodriges Clear cell marianna al cell Encounter Tomography Fabien, HOSPICE NURSE carcinoma, left (HCC) 1, [facility] [address] [facility] Room 06/15/2019 Hospital Computed Rodriges Osbaldo Verenice cell marianna al cell Encounter Tomography Fabien, HOSPICE NURSE carcinoma, left (HCC) [facility]12[facility] Outside Orders Radiology Osbaldo Rodriges Clear cell r enal cell Fabien, HOSPICE NURSE carcinoma, left (HCC) (Primary Dx) 03/19/2019 Hospital Radiology Kaitlin Nguyen-Ady Hip pain, bilat eral Encounter MD Remy after 03/14/2019 Immunizations Name Administration Dates Next Due INFLUENZA QIV ADJUVANTED PF IM 02/27/2020 Pneumococcal Conjugate (Prevnar) 13-Valent 02/27/2020 Family History Medical History Relation Name Comments Diabetes Brother Relation Name Status Comments Brother Social History Tobacco Use Types Packs/Day Years Used Date Former Smoker Quit: 1987 Smokeless Tobacco: Never Used Alcohol Use Drinks/Week oz/Week Comments Yes 6 Cans of beer 6.0 some nights of t he week Sex Assigned at Date Recorded Not on file COVID-19 Exposure Response Date Recorded In the last month, have you been in contact with No / Unsure 02/26/2020 11:30 AM CDT someone who was confirmed or suspected to have Coronavirus / COVID-19? Last Filed Vital Signs Vital Sign Reading Time Taken Comments Blood Pressure 172/74 03/01/2020 11:08 AM SPECTACLE TRUER Pulse 57 03/01/2020 1:15 PM SPECTACLE TRUER Temperature 36.4 C (97.5 F) 03/01/2020 9:00 AM SPECTACLE TRUER Respiratory Rate 18 03/01/2020 1:15 PM SPECTACLE TRUER Oxygen Saturation 99% 03/01/2020 1:15 PM SPECTACLE TRUER Inhaled Oxygen Concentration 21% 03/01/2020 5:30 AM SPECTACLE TRUER Weight 117.6 kg (259 lb 4.2 oz) [...] VACCINE Completed 02/27/2020 Implants Implanted Type Area Men'S [employer] Boys' Clothing Salesperson Device Shelf Model / Identifier Expiration Serial / Date Lot Scr Gemini Asnis3 Ft [id number] - [id number] Fracture/Fix Right: OMAIRA:OMAIRA 10/26/2022 [id number] / Implanted: Qty: 1 on 08/13/2018 by Kingsley Houser MD at [facility] Hip ORTHOPAEDICS / [id number] Cement Bone Smplx Tobra 40gm [id number] - [id number] IMPLANTS Right: OMAIRA:OMAIRA 12/28/2019 [id number] / Implanted: Qty: 1 on 08/13/2018 by Kingsley Houser MD at [facility] Hip ORTHOPAEDICS / [id number] Cannulated Screw, Fully Threaded Right: OMAIRA 07/27/2022 [id number] / Implanted: Qty: 1 on 08/13/2018 by Kingsley Houser MD at [facility] Hip / [id number] Procedures Procedure Name Priority Date/Time Associated Comments Diagnosis POCT-GLUCOSE METER Routine 03/01/2020 1:03 Resul ts for this PM SPECTACLE TRUER procedure are i n the results section. CBC W/PLT COUNT & Routine 03/01/2020 6:08 Result s for this AUTO DIFFERENTIAL AM SPECTACLE TRUER procedure are in the results section. CBC W/PLT COUNT & Routine 03/01/2020 6:08 Result s for this AUTO DIFFERENTIAL AM SPECTACLE TRUER procedure are in the results section. BASIC METABOLIC PANEL Routine 03/01/2020 6:08 Re sults for this (7) AM SPECTACLE TRUER procedure are i n the results section. POCT-GLUCOSE METER Routine 02/29/2020 9:35 Resul ts for this PM SPECTACLE TRUER procedure are i n the results section. POCT-GLUCOSE METER Routine 02/29/2020 5:54 Resul ts for this PM SPECTACLE TRUER procedure are i n the results section. CBC W/PLT COUNT & Routine 02/29/2020 5:53 Result s for this AUTO DIFFERENTIAL AM SPECTACLE TRUER procedure are in the results section. CBC W/PLT COUNT & Routine 02/29/2020 5:53 Result s for this AUTO DIFFERENTIAL AM SPECTACLE TRUER procedure are in the results section. BASIC METABOLIC PANEL Routine 02/29/2020 5:53 Re sults for this (7) AM SPECTACLE TRUER procedure are i n the results section. POCT-GLUCOSE METER Routine 02/28/2020 9:31 Resul ts for this PM SPECTACLE TRUER procedure are i n the results section. CBC W/PLT COUNT & Routine 02/28/2020 4:15 Result s for this AUTO DIFFERENTIAL AM SPECTACLE TRUER procedure are in the results section. CBC W/PLT COUNT & Routine 02/28/2020 4:15 Result s for this AUTO DIFFERENTIAL AM SPECTACLE TRUER procedure are in the results section. BASIC METABOLIC PANEL Routine 02/28/2020 4:15 Re sults for this (7) AM SPECTACLE TRUER procedure are i n the results section. 2D ECHO W/ DOPPLER Routine 02/28/2020 12:00 Resul ts for this (CW/PW/COLOR) AM CDT procedure are in the results section. POCT-GLUCOSE METER Routine 02/27/2020 10:27 Resul ts for this PM CDT procedure are i n the results section. SARS-COV2/RT-PCR Routine 02/27/2020 1:38 Results for this ([facility]) PM CDT procedure are [...] 428 ms QTC Calculation(Bazett) 428 ms P Sparks 26 degrees R Sparks -11 degrees T Sparks 20 degrees Normal sinus rhythm Right bundle [...] procedure are i n the results section. REPORT OF PROCEDURE - 02/26/2020 Result s for this ENDOSCOPY SCAN procedure are in the results section. 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 CT ABDOMEN/PELVIS WITH Routine 06/15/2019 2:41 PM Clear cell renal Results for this IV CONTRAST SPECTACLE TRUER cell carcinoma, procedure ar e in left (HCC) the results section. POCT-CREATININE Routine 06/15/2019 2:17 PM Resul ts for this SPECTACLE TRUER procedure are i n the results section. FL BILATERAL HIPS TO Routine 03/19/2019 11:45 AM Hip pain, Results for this INCLUDE PELVIS SPECTACLE TRUER bilateral procedure are in the results section. after 03/14/2019 Results POC-Glucose meter (03/01/2020 1:03 PM SPECTACLE TRUER)Only the most recent of7 results within the time period is included. POC-Glucose Meter 252 (H) 70 - 110 mg/dL [facility] Comment: [facility] : TESTED AT [facility] [address] [facility], [address] CENTER : Adding Machine Servicer/Shape Brick Molder ID = [id number] for MAGDA QUINONES Specimen Blood Performing Organization Address City/State/Zipcode Phone Number [address] [phone] CENTER CBC with platelet count + automated diff (03/01/2020 6:08 AM SPECTACLE TRUER)Only the most recent of5 resultswithin the time period is included. Pathologist Sig nature WBC 3.9 3.5 - 10.5 [facility] K/L [facility] RBC 3.64 (L) 4.63 - 6.08 [facility] M/L [facility] Hemoglobin 11.2 (L) 13.7 - 17.5 [facility] GM/DL [facility] Hematocrit 33.4 (L) 40.1 - 51.0 % [facility] MCV 91.8 79.0 - 92.2 fL [facility] MCH 30.8 25.7 - 32.2 pg [facility] MCHC 33.5 32.3 - 36.5 [facility] GM/DL [facility] RDW 13.9 11.6 - 14.4 % [facility] Platelets 159 150 - 450 K/CU [facility] MM [facility] MPV 8.8 (L) 9.4 - 12.4 fL [facility] nRBC 0 0 - 0 /100 WBC [facility] % Neutros 48 % [facility] % Lymphs 36 % [facility] % Monos 9 % [facility] % Eos 7 % [facility] % Baso 0 % [facility] # Neutros 1.90 1.78 - 5.38 [facility] # Lymphs 1.41 1.32 - 3.57 [facility]/L [facility] # Monos 0.34 0.30 - 0.82 [facility] K/L [facility] # Eos 0.27 0.04 - 0.54 [facility] # Baso 0.01 0.01 - 0.08 [facility] Immature 0 0 - 1 % [facility] Granulocytes-Relative [facility] Specimen Blood Performing Organization Address City/State/Zipcode Phone Number [facility] [address] [place] [address] CENTER Basic Metabolic Panel (03/01/2020 6:08 AM SPECTACLE TRUER)Only the most recent of5 results within the time period is included. Sodium 136 136 - 145 meq/L [facility] Potassium 4.2 3.5 - 5.1 meq/L [facility] Chloride 106 98 - 107 meq/L [facility] CO2 22 22 - 29 meq/L [facility] BUN 23 (H) 7 - 21 mg/dL [facility] Creatinine 1.80 (H) 0.57 - 1.25 [facility] mg/dL [facility] Glucose 187 (H) 70 - 105 mg/dL [facility] Calcium 8.9 8.4 - 10.2 [facility] mg/dL [facility] EGFR 37Comment: ESTIMATED mL/min/1.73 sq [facility] GFR IS NOT m [facility] CREATININE CLEARANCE IN PREDICTING GLOMERULAR FILTRATION RATE. ESTIMATED GFR IS NOT APPLICABLE FOR DIALYSIS PATIENTS. Specimen Blood Narrative Performed At Adding Machine Servicer JERAD - SINDHU Ed[place] [facility] CENTER Performing Organization Address City/State/Zipcode Phone Number [facility] [address] [place] [address] CENTER 2D Echo W/Doppler(CW/PW/Color) with saline (02/28/2020 12:00 AM CDT) Pathologist Sig nature Ejection Fraction [facility] ECHO [facility] Specimen Narrative Performed At Transthoracic Echocardiography Report (T TE) [facility] ECHO [facility] Demographics Patient Name SHIVAM POLLARD Date of Study 02/28/2020 MEGHA Gender Male Visit Number [id number] Race Unknown Room Number 2256 Number Date of 1950 Referring Saeed Parada Physician Age 70 year(s) Nutrition Assistant Tony Tobin Admissions Dean Shanel Adams Interpreting Roe Clark back, Physician Procedure Type of Study TTE procedure:2DECHO [...] External Ris In - 02/28/2020 6:41 PM SPECTACLE TRUER Transthoracic Echocardiography Report (TTE) Demographics Patient Name SHIVAM POLLARD Date o f Study 02/28/2020 MEGHA Gender Male Visit Number [id number] Race Unknown [place] [address] Number Date of 1950 Referr rajesh short Age 70 year(s) Sonogr aphjason Tobin Admissions Dean Shanel Adams Interp retinDeangelo Alvarado MD Procedure Type of Study TTE procedure:2DECHO [...] 1:38 PM CDT) SARS-COV2/RT-PCR Negative Not Detected, ALEX FONTANEZ Negative, See [facility] external report CENTER for linked test SARS-COV-[address] [facility] BEENA FONTANEZ PERFORMING LAB [facility] Specimen Other - Nasopharyngeal wall structure (b gaurang structure) Narrative Performed At Negative result for this test determines that ALEX VELASCOAmee [facility] SARS-CoV-2 RNA was not present in the [...] SARS-CoV-2 assay. Fact Sheet for Healthcare Providers: https://www.[employer]/fabio/OV_ISFR-OuN-4 _HCP_Fact_Sheet_51-866098.pdf Fact Sheet for Healthcare Patients: https://www.[employer]/fabio/KF_KAGN-HsB-4 _Patient_Fact_Sheet_EN_51-344436H5.pdf Performing Laboratory: [address] [address] Performing Organization Address [facility] [address]/[facility] Phone Number [address] [address] CENTER Vitamin B12 and Folate (02/27/2020 6:08 AM CDT) Pathologist Sig nature Vitamin B12 283 213 - 816 pg/mL [facility] Folate 8.00 >=7.00 ng/mL [facility] Specimen Blood Narrative Performed At Adding Machine Servicer ID - [facility] Performing Organization Address [facility] [address]/[facility] Phone Number [address] [address] CENTER TSH/Free T4 If Indicated (02/27/2020 6:08 AM CDT) Pathologist Sig nature TSH 1.445 0.350 - 4.940 uIU/mL [facility] Specimen Blood Narrative Performed At Adding Machine Servicer ID - [facility] Performing Organization Address [facility] [address]/[facility] Phone Number [address] [address] CENTER Phosphorus (02/27/2020 6:08 AM CDT) Pathologist Sig nature Phosphorus 3.6 2.3 - 4.7 mg/dL [facility] Specimen Blood Narrative Performed At Adding Machine Servicer ID - SINDHU [facility] Performing Organization Address City/[facility] [address]/[facility] Cent[facility]ode Phone Number [address] [address] CENTER Magnesium (02/27/2020 6:08 AM CDT)Only the most recent of2 resultswithin the time period is included. Pathologist Sig nature Magnesium 1.7 1.6 - 2.6 mg/dL [facility] Specimen Blood Narrative Performed At Adding Machine Servicer ID - SINDHU M [facility] Performing Organization Address City/[facility] [address]/Zipcode Phone Number [address] [address] [place] Hemoglobin A1c - Fasting (02/27/2020 6:08 AM CDT) Pathologist Sig nature Hemoglobin A1C 6.4 (H) 4.3 - 6.1 % [facility] Specimen Blood Narrative Performed At Fasting [facility] Performing Organization Address City/[facility] [address]/Zipcode Phone Number [address] [address] [place] Hepatic function panel (02/27/2020 6:08 AM CDT) Pathologist Sig nature Protein, Total 6.5 6.0 - 8.3 gm/dL [facility] Albumin 3.7 3.5 - 5.0 g/dL [facility] Total Bilirubin 0.4 0.2 - 1.2 mg/dL [facility] Bilirubin, Direct 0.2 0.1 - 0.5 mg/dL [facility] Alkaline Phosphatase 64 40 - 150 U/L [facility] AST 16 5 - 34 U/L [facility] ALT 18 6 - 55 U/L [facility] Specimen Blood Narrative Performed At Adding Machine Servicer ID - SINDHU Ed[place] [facility] Performing Organization Address City/[facility] [address]/Zipcode Phone Number [address] [address] [place] Fasting lipid panel (02/27/2020 6:08 AM CDT) Pathologist Sig nature Triglycerides 169 mg/dL [facility] DICAL [place] Cholesterol 85 mg/dL [facility] HDL 16 mg/dL [facility] LDL Calculated 35 mg/dL [facility] Specimen Blood Narrative Performed At Triglyceride Reference Range: [facility] Low Risk <150 Borderline 150-199 High Risk 200-499 Very High Risk >=500 Cholesterol Reference Range: Low Risk <200 Borderline 200-239 High Risk >240 HDL Cholesterol Reference Range: Low Risk >=60 High Risk <40 LDL Cholesterol Reference Range: Optimal <100 Near Optimal 100-129 Borderline 130-159 High 160-189 Very High >=190 Adding Machine Servicer ID - SINDHU Ed[place] Performing Organization Address City/State/Zipcode Phone Number [facility] [address] [place] [address] CENTER MR brain without IV contrast (02/26/2020 6:45 PM CDT) Specimen Narrative Performed At FINAL REPORT [facility] MR, BRAIN, WITHOUT CONTRAST INDICATION: Ataxia, stroke [...] and left occipital lobe. Signed: Gloria Chavez MD Report Verified Date/Time: 02/26/2020 19:25:47 [...] and left occipital lobe. Signed: Gloria Chavez MD Report Verified Date/Time: 02/26/2020 9:25:47 Performing Organization Address City/State/Zipcode Phone Number [employer] ECG 12 lead (02/26/2020 5:52 PM CDT)Only the most recent of2 resultswithin the time period is included. Specimen Narrative Performed At Ventricular Rate 60 BPM [employer] MUSE Atrial Rate 60 BPM P-R Interval 196 ms QRS Duration 128 ms Q-T Interval 428 ms QTC Calculation(Bazett) 428 ms P Sparks 26 degrees R Sparks -11 degrees T Sparks 20 degrees Normal sinus rhythm Right bundle branch block Abnormal ECG When compared with ECG of 26-FEB-2020 11 :29, No significant change was found Confirmed by Rai NAVARRO, ABRIL ([id number]) on 02/27/2020 1 :23:50 PM Procedure Note Interface, External Ris In - 02/27/2020 1:23 PM CDT Ventricular Rate 60 BPM Atrial Rate 60 BPM P-R Interval 196 ms QRS Duration 128 ms Q-T Interval 428 ms QTC Calculation(Bazett) 428 ms P Sparks 26 degrees R Sparks -11 degrees T Sparks 20 degrees Normal sinus rhythm Right bundle branch block Abnormal ECG When compared with ECG of 26-FEB-2020 11 :29, No significant change was found Confirmed by Rai NAVARRO BASANT ([id number]) o n 02/27/2020 1:23:50 PM Performing Organization Address City/[facility] [address]/[facility] Centercode Phone Number SHERRI Urinalysis with Microscopic If Indicated (02/26/2020 2:22 PM CDT) Color, UA Yellow [facility] Clarity, UA Clear [facility] Specific [place], 1.020 1.005 - 1.030 [facility] pH, UA 5.5 5.0 - 9.0 [facility] Protein, UA 30 mg/dL (A) Negative [facility] Glucose, UA Negative Negative [facility] Ketones, UA Negative Negative [facility] Bilirubin, UA Negative Negative [facility] Blood, UA Negative Negative [facility] Nitrite, UA Negative Negative [facility] Leukocytes, UA Negative Negative [facility] Urobilinogen, UA 0.2 0.2 - 1.0 mg/dL [facility] Spec[facility] Source [facility] Specimen Urine Performing Organization Address [facility] [address]/[facility] Phone Number [facility] [address] [place] [address] CT/CTA carotid (02/26/2020 11:44 AM CDT) Specimen Narrative Performed At FINAL REPORT [facility] EXAMINATION: CT angiogram of the [place] and neck with contrast CLINICAL [...] evaluation, multi-planar reconstructions, maximum intensity projections, and [employer] 3D off-line post-processing was obtained and perform ed on a dedicated stand-alone workstation under the direct supervision of the interpreting physician. Dose modulation, iterative reconstructio n, and/or weight based adjustment of the mA/kV was utilized to reduce the radiation dose to as low as reasonably achievable. CT ANGIOGRAM OF THE [place] FIN DINGS: Prominent calcified atherosclerotic [...] Report Verified Date/Time: 02/26/2020 11:44:58 Reading Location: [facility] Aguilar edmond 2 - [id number] Electronically signed by: ROLANDO early 02/26/2020 11:44 AM Procedure Note Interface, External Ris In - 02/26/2020 11:47 AM CDT FINAL REPORT EXAMINATION: CT angiogram of the [place] and neck with contrast CLINICAL [...] evaluation, multi-planar reconstructions, maximum intensity projections, and K[employer] 3D off-line post-processing was obtained and perform ed on a dedicated stand-alone workstation under the direct supervision of the interpreting physician. Dose modulation, iterative reconstructio n, and/or weight based adjustment of the mA/kV was utilized to reduce the radiation dose to as low as reasonably achievable. CT ANGIOGRAM OF THE [place] FIN DINGS: Prominent calcified atherosclerotic [...] Verified Date/Time: 02/26/2020 1 1:44:58 Reading Location: [place] [id number] Performing Organization Address City/State/Zipcode Phone Number [employer] CTA brain (02/26/2020 11:44 AM CDT) Specimen Narrative Performed At FINAL REPORT [employer] EXAMINATION: CT angiogram of the [place] and neck with contrast CLINICAL [...] evaluation, multi-planar reconstructions, maximum intensity projections, and [employer] 3D off-line post-processing was obtained and perform ed on a dedicated stand-alone workstation under the direct supervision of the interpreting physician. Dose modulation, iterative reconstructio n, and/or weight based adjustment of the mA/kV was utilized to reduce the radiation dose to as low as reasonably achievable. CT ANGIOGRAM OF THE [place] FIN DINGS: Prominent calcified atherosclerotic [...] Report Verified Date/Time: 02/26/2020 11:44:58 Reading Location: [address] B01.626 Electronically signed by: ROLANDO early 02/26/2020 11:44 AM Procedure Note Interface, External Ris In - 02/26/2020 11:47 AM CDT FINAL REPORT EXAMINATION: CT angiogram of the [place] and neck with contrast CLINICAL [...] evaluation, multi-planar reconstructions, maximum intensity projections, and [employer] 3D off-line post-processing was obtained and perform ed on a dedicated stand-alone workstation under the direct supervision of the interpreting physician. Dose modulation, iterative reconstructio n, and/or weight based adjustment of the mA/kV was utilized to reduce the radiation dose to as low as reasonably achievable. CT ANGIOGRAM OF THE [place] FIN DINGS: Prominent calcified atherosclerotic [...] Verified Date/Time: 02/26/2020 1 1:44:58 Reading Location: [place] [address] [id number] Performing Organization Address City/State/Zipcode Phone Number [employer] CT brain/stroke protocol (02/26/2020 11:43 AM CDT) Specimen Narrative Performed At Addendum Begins [employer] RIS REPORT STATUS:A No intracranial hemorrhage. Left posterior frontal/precentral gyrus cortico-subcortical hypodensity is new since prior CT of 08/27. The findings were discussed with the RN Brii Colon on 02/26/2020 at 11:15 AM Signed: Rolando Rock MD Report Verified Date/Time: 02/26/2020 11:24:42 Reading Location: [facility] [address] B01.626 Addendum Ends FINAL REPORT EXAMINATION: Head [...] Report Verified Date/Time: 02/26/2020 11:14:42 Reading Location: [employer] Reading [place] 2 B01.626 Electronically signed by: ROLANDO early 02/26/2020 [...] Verified Date/Time: 02/26/2020 1 1:24:42 Reading Location: [employer] [place] m 2 - B01.626 Addendum Ends FINAL REPORT [...] Verified Date/Time: 02/26/2020 1 1:14:42 Reading Location: [facility] 2 - B01.626 Performing Organization Address City/State/Zipcode Phone Number [employer] XR chest 1 view portable / bedside (02/26/2020 11:35 AM CDT) Specimen Narrative Performed At FINAL REPORT [employer] RAD, CHEST, 1 VIEW, NON DEPT INDICATION: muscle weakness COMPARISON: September 13, 2019 FINDINGS: Portable frontal view of the c hest. IMPRESSION: Support Lines: Port-A-Cath tip overlies the atriocaval junction. Lungs and pleura: Unchanged airspace and pleural opacities. No pneumothorax. Heart and mediastinum: Stable contours. Stable surgical changes. Additional findings: None. Signed: Quyen Keen MD Report Verified Date/Time: 02/26/2020 11:31:39 Reading Location: [facility] Reading Room Procedure Note Interface, External Ris [...] Stable surgical changes. Additional findings: None. Signed: Quyen Keen MD Report Verified Date/Time: 02/26/2020 1 1:31:39 [facility] Reading Room Performing Organization Address City/State/Zipcode Phone Number [facility] ECG/EKG Interpretation (02/26/2020 11:05 AM CDT) Narrative [...] PT/PTT (02/26/2020 10:58 AM CDT) Pathologist Sig nature Protime 9.9 9.8 - 12.0 seconds [facility] INR 0.96 <=5.90 [facility] PTT 20.6 (L) 25.8 - 34.5 seconds [facility] Specimen Blood Narrative Performed At RECOMMENDED COUMADIN/WARFARIN INR THERAP Y RANGES [facility] STANDARD DOSE: 2.0 - 3.0 Includes: PROPHYLAXIS for venous thrombosis, systemic embolization; TREATMENT fo r venous thrombosis and/or pulmonary embol us. HIGH RISK: Target INR is 2.5-3.5 for patients with mechanical heart valves. Performing Organization Address [facility] [address]/[facility] Phone Number [facility] [address] [place] [address] Troponin I (02/26/2020 10:58 AM CDT) Pathologist Sig nature Troponin I 0.01 0.00 - 0.03 ng/mL [facility] Specimen Blood Narrative Performed At Troponin I (TnI) levels must be interpreted in the [facility] context of the presenting symptoms and the [...] disease, and persistent tachyarrhythmia. Performing Organization Address [facility] [address]/[facility] Centercomn Phone Number [facility] [address] [place] [address] B-type Natriuretic Factor (BNP) (02/26/2020 10:58 AM CDT) Pathologist Sig [facility] BNP 18 0 - 100 pg/mL [facility] R Specimen Blood Performing Organization Address [place]/[facility] Phone Number [facility] [address] [place] [address] EKG-SCANNED (02/26/2020) Narrative Performed At This result has an attachment that is no t available. Ordered by an unspecified provider. CT Chest without IV Contrast (01/05/2020 6:12 PM CDT)Only the most recent of2 resultswithin the time period is included. Specimen Narrative Performed At FINAL REPORT [facility] CT of the chest, abdomen and pelvis, [...] Comparison Film: October 16, 2019 and May ru2019 Discussion: There is a right-sided Port-A-Cath. Visu [...] Report Verified Date/Time: 01/06/2020 08:51:39 Reading Location: [address] Reading Room Procedure Note Interface, External [...] Verified Date/Time: 01/06/2020 0 8:51:39 Reading Location: [address] Reading Room Performing Organization Address City/State/Zipcode Phone Number [employer] CT Abdomen/Pelvis without IV Contrast (01/05/2020 6:12 PM CDT)Only the most recent of2 resultswithin the time period is included. Specimen Narrative Performed At FINAL REPORT [employer] CT of the chest, abdomen and pelvis, [...] Report Verified Date/Time: 01/06/2020 08:51:39 Reading Location: [address] Reading Room Procedure Note Interface, External [...] Verified Date/Time: 01/06/2020 0 8:51:39 Reading Location: [address] Reading Room Performing Organization Address City/State/Zipcode Phone Number [employer] CT Abdomen/Pelvis with IV Contrast (06/15/2019 2:41 PM [facility]) Specimen Narrative Performed At FINAL REPORT [employer] CT of the chest, abdomen and pelvis, [...] Report Verified Date/Time: 06/15/2019 16:30:24 Reading Location: [facility] C013X [facility] Reading Room Procedure Note Interface, External Ris In - 06/15/2019 4:32 PM [facility] FINAL REPORT CT of the chest, abdomen [...] Verified Date/Time: 06/15/2019 1 6:30:24 Reading Location: [facility] B1 C013X [facility] Reading Room Performing Organization Address City/State/Zipcode Phone Number [employer] CT Chest with IV Contrast (06/15/2019 2:41 PM SPECTACLE TRUER) Specimen Narrative Performed At FINAL REPORT [employer] CT of the chest, abdomen and pelvis, [...] Report Verified Date/Time: 06/15/2019 16:30:24 Reading Location: [facility] B1 [id number] [facility] Reading Room Procedure Note Interface, External Ris In - 06/15/2019 4:32 PM SPECTACLE TRU[facility] FINAL REPORT CT of the chest, abdomen [...] Verified Date/Time: 06/15/2019 1 6:30:24 Reading Location: [address] Reading Room Performing Organization Address City/State/Zipcode Phone Number [facility] POC-Creatinine (06/15/2019 2:17 PM SPECTACLE TRUER) POC-Creatinine 1.5 (H)Comment: 0.6 - 1.3 [facility] TESTED AT [facility] mg/dL [facility] [address] [facility] [address] POC-EGFR 46 mL/min/1.73M2 [facility] Specimen Blood Performing Organization Address City/State/Zipcode Phone Number [facility] [address] [place] [address] CENTER XR bilateral hips to include pelvis (03/19/2019 11:45 AM [facility]PECTACLE TR[facility]) Specimen Narrative Performed At FINAL REPORT [facility] [employer] Radiographs of the hips and pelvis HISTORY: [...] Report Verified Date/Time: 03/19/2019 13:33:29 Reading Location: [employer] [place] 1 - B01.627 Electronically signed by: TAMARA early 03/19/2019 01:33 PM Procedure Note Interface, External Ris In - 03/19/2019 1:35 PM [facility] FINAL REPORT Radiographs of the hips and [...] Verified Date/Time: 03/19/2019 1 3:33:29 Reading Location: [employer] [place] 1 - B01.627 Performing Organization Address City/State/Zipcode Phone Number [facility] after 03/14/2019 Insurance Payer Benefit Plan / Subscriber ID Effective Dates Phone Addre ss Type Group MEDICARE MEDICARE A B [id number] 2013-Presen Medicare t MCR GENERIC MEDICARE [id number] 2017-Present Medigap SUPPLEMENT/ONEIL SUPPLEMENT VIDUAL Advance Directives For more information, please contact: [phone] Code Status Date Activated Date Inactivated Comments Full Code 02/26/2020 3:52 PM 03/01/2020 5:30 PM This code status was determined by: [...]
--- OUTSIDE RECORDS SUMMARY | 2020-03-14 15:55 | XMS REPORT | Summary of Care ---
:1950 Author Organization [facility] Address [address] [place] [address] Care Team Providers Name Role Phone MD Mu Primary Care Provider Reason for Visit Reason Comments Assessment Triage Encounter Details Date Type Department Care Team Description 01/19/2020 Telephone [facility] Family Karla Dobbins MD Assessment (Triage) Medicine [address] [place] [phone] Allergies Active Allergy Reactions Severity Noted Date Comments Metoclopramide Hcl Rash 06/03/2012 documented as of this encounter (statuses as of 01/19/2020) Medications Medication Sig Dispensed Refills Start Date End Date Status ipratropium (ATROVENT) 0 04/15/2012 Active 0.03 % nasal sprayIndications: Type II or unspecified type diabetes mellitus without mention of complication, uncontrolled azelastine 137 mcg Use 1 [place] in 30 mL 5 11/03/2018 Active (0.1 [...] reflux disease, esophagitis presence not specified LOVAZA, [id number] TAKE 4 CAPSULES 360 capsule 1 05/06/2019 [...] compli cations 06/03/2012 Overview: ICD10 Diagnosis Term 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 Also she is going to increase the weight perimeter by 5 pounds today they are re-certifying him. elephone Encounter - Jenn Perez - 01/19/2020 10:51 AM CDTDonna with [facility] is currently with patient doing a recertification [...] ype Group Dates MEDICARE MEDICARE PART A [id number] 2013-Pres [phone] Medicare & B ent [phone] [id number] MALA COOPER [id number] EQUITABLE EQUITABLE [id number] 2017-Yovani psence documented as of this encounter Advance Directives Type Date Recorded Patient Policy Services Representative Explanati on Advance Directives and Living Will Power of Job Interviewer
--- OUTSIDE RECORDS SUMMARY | 2020-03-14 15:55 | XMS REPORT | Summary of Care ---
:1950 Author Organization [facility] Address [address] [place] [address] Care Team Providers Name Role Phone MD Mu Primary Care Provider Reason for Visit Reason Comments Assessment Encounter Details Date Type Department Care Team Description 01/14/2020 Telephone [facility] Family Medicine Juma Li MD Assessment - [address] [place] [address] [place] [phone] Allergies Active Allergy Reactions Severity Noted Date Comments Metoclopramide Hcl Rash 06/03/2012 documented as of this encounter (statuses as of 01/14/2020) Medications Medication Sig Dispensed Refills Start Date End Date Status ipratropium (ATROVENT) 0 04/15/2012 Active 0.03 % nasal sprayIndications: Type II or unspecified type diabetes mellitus without mention of complication, uncontrolled azelastine 137 mcg Use 1 [place] in 30 mL 5 11/03/2018 Active (0.1 [...] reflux disease, esophagitis presence not specified LOVAZA, [id number] TAKE 4 CAPSULES 360 capsule 1 05/06/2019 [...] compli cations 06/03/2012 Overview: ICD10 Diagnosis 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 Medicare & B ent 82 [id number] [place] COOPER [id number] EQUITABLE EQUITABLE [id number] 2017-Yovani spence documented as of this encounter Advance Directives Type Date Recorded Patient Outside Machinist Supervisor Explanati on Advance Directives and Living Will Power of Offshore Wind Turbine Technician
--- OUTSIDE RECORDS SUMMARY | 2020-03-14 15:55 | XMS REPORT | Summary of Care ---
:1950 Author Organization [facility] - Health Address [address] [place] [address] Care Team Providers Name Role Phone MD Mu Primary Care Provider Encounter Details Date Type Department Care Team Description 01/13/2020 Orders Only [facility] Doctor Unassigned, No [address] [facility] [address] [place] [address] Allergies Active Allergy Reactions Severity Noted Date Comments Metoclopramide Hcl Rash 06/03/2012 documented as of this encounter (statuses as of 01/22/2020) Medications Medication Sig Dispensed Refills Start Date End Date Status ipratropium (ATROVENT) 0 04/15/2012 Active 0.03 % nasal sprayIndications: Type II or unspecified type diabetes mellitus without mention of complication, uncontrolled azelastine 137 mcg Use 1 [place] in 30 mL 5 11/03/2018 Active (0.1 [...] reflux disease, esophagitis presence not specified LOVAZA, [id number]-[id number] TAKE 4 CAPSULES 360 capsule 1 05/06/2019 [...] compli cations 06/03/2012 Overview: ICD10 Diagnosis Term Panel Monitor Utility Essential hypertension, benign 06/03/2012 HLD (hyperlipidemia) [...] ype Group Dates MEDICARE MEDICARE PART A [id number] 2013-Pres [phone] [address] Medicare & B [facility] 82 [id number] [place] COOPER [id number] EQUITABLE EQUITABLE [id number] 2017-Yovani spence documented as of this encounter Advance Directives Type Date Recorded Patient Technician Support Engineer Explanati on Advance Directives and Living Will Power of Sprue Cutting Press Operator
--- OUTSIDE RECORDS SUMMARY | 2020-03-14 15:55 | XMS REPORT | Summary of Care ---
:1950 Author Organization [facility] - [facility] Address [address] [place] [address] Care Team Providers Name Role Phone MD Mu Primary Care Provider Reason for Visit Reason Comments Refill Request Encounter Details Date Type Department Care Team Description 12/31/2019 Telephone [facility] [employer] Family Karla Dobbins MD Refill Request [address] [place] [address] [place] [address] [phone] Allergies Active Allergy Reactions Severity Noted Date Comments Metoclopramide Hcl Rash 06/03/2012 documented as of this encounter (statuses as of 12/31/2019) Medications Medication Sig Dispensed Refills Start End Status Date Date ipratropium 0 Active (ATROVENT) 0.03 % 2 nasal sprayIndications: Type II or unspecified type diabetes mellitus without mention of complication, uncontrolled azelastine 137 mcg Use 1 [place] in 30 mL 5 Active (0.1 %) [...] reflux disease, esophagitis presence not specified LOVAZA, bsmhz-1-yghx TAKE 4 360 capsule 1 Active ethyl [...] compli cations 06/03/2012 Overview: ICD10 Diagnosis Term 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 [facility] [place] Medicare & B [facility] 82 [id number] MAL[place] COOPER [id number] EQUITABLE EQUITABLE [id number] 2017-Yovani spence documented as of this encounter Advance Directives Type Date Recorded Patient Punch Operator Explanati on Advance Directives and Living Will Power of Pedodontist
--- OUTSIDE RECORDS SUMMARY | 2020-03-14 15:55 | XMS REPORT | Summary of Care ---
:1950 Author Organization [facility] - Health Address [address] [place] [address] Care Team Providers Name Role Phone MD Mu Primary Care Provider Encounter Details Date Type Department Care Team Description 12/10/2019 Orders Only [facility] Doctor Unassigned, No 301 [facility] [place] [address] [place] [address] Allergies Active Allergy Reactions Severity Noted Date Comments Metoclopramide Hcl Rash 06/03/2012 documented as of this encounter (statuses as of 01/05/2020) Medications Medication Sig Dispensed Refills Start Date End Date Status ipratropium (ATROVENT) 0 04/15/2012 Active 0.03 % nasal sprayIndications: Type II or unspecified type diabetes mellitus without mention of complication, uncontrolled azelastine 137 mcg Use 1 [place] in 30 mL 5 11/03/2018 Active (0.1 [...] reflux disease, esophagitis presence not specified LOVAZA, kawti-7-uksb TAKE 4 CAPSULES 360 capsule 1 05/06/2019 [...] compli cations 06/03/2012 Overview: ICD10 Diagnosis Term L Tacker Utility Essential hypertension, benign 06/03/2012 HLD (hyperlipidemia) [...] ype Group Dates MEDICARE MEDICARE PART A [id number] 2013-Pres [phone] [address] Medicare & B [facility] 82 [id number] [place] COOPER [phone] EQUITABLE EQUITABLE [id number] 2017-Yovani spence documented as of this encounter Advance Directives Type Date Recorded Patient Edgerman Explanati on Advance Directives and Living Will Power of Chief Ultrasound Technologist
--- OUTSIDE RECORDS SUMMARY | 2020-03-14 15:55 | XMS REPORT | Continuity of Care Document ---
:1950 Author Organization [facility] t Address [address] [place] [address] Care Team Providers Name Role Phone Jb Dobbins MD Primary Care Physician Lorene Benítez MD Attending Clinician Srinivasa Monte MD Attending Clinician [phone] Tal ROONEY Attending Clinician LORENE BENÍTEZ Attending Clinician Unavailable Mu ROONEY Attending Clinician Doctor Unassigned, Name Attending Clinician Unavailable Lab, Fam Pob I Attending Clinician Unavailable Provider, Urgent Care Attending Clinician Unavailable Remy Tom MD Attending Clinician 1, [address] Room Attending Clinician Unavailable 2, Lab Attending Clinician Unavailable Med, Wellness Ang Fam Attending Clinician Unavailable Amado Zarate MD Attending Clinician Sherif Baxter NP Attending Clinician SHERIF BAXTER Attending Clinician Unavailable REMY TOM Attending Clinician Unavailable TIGIST Attending Clinician Unavailable LAMONTE JIMENES Attending Clinician Unavailable KARAN BARNEY Attending Clinician Unavailable SRINIVASA MONTE Admitting Clinician Unavailable REMY TOM Admitting Clinician Unavailable TIGIST Admitting Clinician Unavailable LAMONTE JIMENES Admitting Clinician Unavailable KARAN BARNEY Admitting Clinician Unavailable Payers Payer Name Policy Type Policy Effective Date Expiration Date Sour ce Number MEDICAREMEDICARE A [id number] 2013 ALEX Prabhaakr [id number] 2012 00:00:00 - M edical -PresentMedicare Center [facility] [id number] [facility] SUPPLEMENT/INDIVIDUAL 00:00:00 - M edical GENERIC MEDICARE Center [id number]-PresentMedigap MEDICAREMEDICARE PART [id number] 2013 Dwayne Aquino AND 00:00:00 Christian [id number] 2012 -[facility] ALMedist. [facility] Problems Condition Condition Condition Status Onset Resolution Last Treating Co mments Source Name Details Category Date Date Treatment Clinician Date Transient Transient Disease Active 2019-[address] [facility] [facility] ischemic ischemic 0-30 [facility] - attack, attack, 00:00: Medical acute acute 00 Center Renal mass Renal mass Disease Active [facility] 4-25 [facility] - 00:00: Medical 00 [place] Essential Essential Disease Active [facility] hypertensi hypertensi 4-17 Adrianne kes - on on 00:00: Medical 00 Center DM DM Disease Active [facility] (diabetes (diabetes 4-17 Luke [facility] - mellitus), mellitus), 00:00: Nh dical type 2 type 2 00 Center ROSARIO ROSARIO Disease Active 2018- [facility] (obstructi (obstructi 4-17 [facility] kes - ve sleep ve sleep 00:00: Medica l apnea) apnea) 00 Center Anemia Anemia Disease Active [facility] 4[facility]17 [facility] - 00:00: Medical 00 Center Preop Preop Disease Active 2019- [place] cardiovasc cardiovasc 4-16 Me thodi ular exam ular exam 00:00: st 00 Pelvic Pelvic Disease Active 2018- [facility] mass mass 4-16 [facility] - 00:00: Medical 00 [place] 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 00 Center Metastatic Metastatic Disease Active 2018- [facility] renal cell renal cell 4-09 Adrian[place] kes - carcinoma carcinoma 00:00: Medi fatemeh 00 Center Pathologic Pathologic Disease Active [facility] fracture fracture 4-09 [facility] - of right of right 00:00: Medica l acetabulum acetabulum 00 Ce nter Mass of Mass of Disease Active [place] soft soft 3-27 Methodi tissue of tissue of 00:00: st right right 00 lower lower extremity extremity Pain of Pain of Disease Active [facility] right hip right hip 3- Luke s - joint joint 00:00: Medical 00 Center 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 00:00: st involving involving [place] heart with heart with angina angina pectoris pectoris Abnormal Abnormal Disease Active [place] EKG EKG 1-12 Methodi 00:00: st 00 SOB SOB Disease Active [place] (shortness (shortness 1-12 Me thodi of breath) of breath) 00:00: st 00 Benign Benign Disease Active [place] essential essential 2-05 Meth allison hypertensi hypertensi 00:00: st on on 00 Diabetes Diabetes Disease Active Overview: [place] mellitus mellitus 2-05 Overview: Met hodi type 2, type 2, 00:00: ICD10 st uncontroll uncontroll 00 Diagnosis ed, ed, Term without without Housekeeping Aide complicati complicati Utility ons ons HLD HLD Disease Active [place] (hyperlipi (hyperlipi 2-05 Me thodi demia) demia) 00:00: st 00 Allergies, Adverse Reactions, Alerts Allergy Allergy Status Severity Reaction(s) Onset Inactive Treating Comm ents Source Name Type Date Date Clinician Metoclop Propensi Active Rash [place] ramide ty to 2-05 Methodi Hcl adverse 00:00: st reaction 00 s to drug Metoclop Propensi Active Rash [facility] ramide ty to 2-05 [facility] - Hcl adverse 00:00: Medical reaction 00 Center s Family History Family Member Diagnosis Comments Start Date Stop Date Source Natural brother Coronary artery [place] disease Natural brother Diabetes [facility] Natural mother Coronary artery [place] disease Social History Social Habit Start Date Stop Date Quantity Comments Source History SDOH [place] Meth odist Alcohol Binge History of tobacco Current smoker [facility] Sex Assigned At [facility] Exposure to Not sure [facility] - SARS-CoV-2 (event) Medica l Center Tobacco use and 2020-02-26 2020-02-[address] [facility]ne kes - exposure 00:00:00 00:00:00 [facility] Alcohol intake 2020-02-26 2020-02-26 [facility] 00:[facility]00 00:00:00 of alcohol [facility] (finding) Alcohol Comment 2020-02-26 2020-02-26 some nights of [facility] - 00:[facility]:00 00:00:00 the week [facility] Cigarettes smoked 2018-08-11 2018-08-11 [place] current (pack per 00:00:00 00:00:00 day) - Reported Cigarette 2018-08-11 2018-08-11 [place] ist pack-years 00:00:00 00:00:00 History [facility] 2018-05-05 2018-05-05 3 [place] Meth odist Alcohol Frequency 00:00:00 00:00:00 History [facility] 2018-05-05 2018-05-05 1 [place] Meth odist Alcohol Std Drinks 00:00:00 00:00:00 Smoking Status Start Date Stop Date Source Former smoker 2020-02-26 00:00:00 2020-02-26 00:00:[address] [facility] Medications Ordered Filled Start Stop Current Ordering Indication Dosage Frequency Signature Comments Components Source Medication Medication Date Date Medication? Clinician (SIG) Name Name aspirin 81 2019-04- Yes 81mg QD Take [address] MG EC 05-02 tablet (81 [facility] - tablet 00:00: 23:59 mg total) Medic al 00 :00 by mouth Center daily. tamsulosin 2019-04- Yes .4mg QD Take [address] (FLOMAX) 05-02 capsule [facility] - 0.4 mg Cap 00:00: 23:59 (0.4 mg Med ical 24 hr 00 :00 total) by Center capsule mouth daily for 90 days. clopidogreL 2019-04- Yes 75mg QD Take [address] (PLAVIX) 75 05-02 tablet (75 L ukes - mg tablet 00:00: 23:59 mg total) Me dical 00 :00 by mouth Center daily for 90 days. cyanocobala 2019-04- Yes 100ug QD Take [address] min, 05-02 tablet [facility] - vitamin 00:00: 23:59 (100 mcg Medic al B-12, 100 00 :00 total) by Cente r MCG tablet mouth daily for 90 days. folic 2019-04- Yes 1{tbl} QD Take [address] acid-multiv 05-02 tablet by Adrianne kumar - itamins 00:00: 23:59 mouth Medical (NEPHRO-VIT 00 :[address] E) 0.8 mg 90 days. Tab tablet polyethylen 2019-04- Yes 17g QD Take [address] e glycol 05-0218 by mouth [facility]ukes - (GLYCOLAX) 00:00: 23:59 daily for M marcus 17 gram 00 :00 14 days. Center packet doxazosin 2019-04 Yes 2mg QD Take [address] (CARDURA) 2 05-01 by mouth Luke s - MG tablet 15:30: nightly. Medi fatemeh 40 [place] tamsulosin 2019-04- No .4mg QD Take 0.[address] (FLOMAX) 05-0103 mg by [facility]ukes - 0.4 mg Cap 09:29: 00:00 mouth Medic al 24 hr 21 :00 daily. Center capsule lisinopriL 2019-04- No 40mg Q.5D Take [address] (PRINIVIL,Z 05-01 by mouth 2 L ukes - ESTRIL) 40 09:29: 00:00 (two) Medic al MG tablet 21 :00 times Center daily. metoprolol 2019-04- No 25mg Q.5D Take [address] tartrate 05-01 by mouth 2 Luke s - (LOPRESSOR) 09:29: 00:00 (two) Medi fatemeh 25 MG 21 :00 times Center tablet daily. amLODIPine 2019-04- No 5mg QD Take [address] (NORVASC) 5 05-01 by mouth Marjorie es - MG tablet 09:29: 00:00 daily. Medic al 21 :00 Center aspirin 325 2019-04- No 325mg QD Take [address] MG tablet 05-01-03 mg by [facility]ukes - 09:29: 00:00 mouth Medical 21 :00 daily. Center metFORMIN 2019-04- No 1000mg Take 1,[address] (GLUCOPHAGE 05-01 mg by [facility]ukes - ) 1000 MG 09:29: 00:00 mouth 2 Medi fatemeh tablet 21 :00 (two) Center times daily with breakfast and dinner. atorvastati 2019-04- No 80mg QD Take [address] n (LIPITOR) 05-01 by mouth Marjorie es - 80 MG 09:29: 00:00 nightly. Medical tablet 21 :00 Center insulin 2019-04 Yes AC & HS. [facility] lispro 05-01 If BS > [facility] - (HumaLOG) 00:00: [...] kit 00:00: 23:59 . Medical 00 :00 Center metoprolol 2019-04- Yes 50mg Q.5D Take 1 [...] nightly for 90 days. needles, 2019-04- Yes [id number] [address] [facility] insulin 05-01 [id number] Miscellane [facility]ukes - disposable 00:00: 23:59 3D ous route M edical (Insulin 00 :00 3 (three) Center Pen times [place]) daily for Ndle 30 days. mINOCYCLine 2019-04- No 100mg Take [address] (MINOCIN,DY 05-01 capsule Luke s - NACIN) 100 00:00: 23:59 (100 mg Med ical MG capsule 00 :00 total) by Cent er mouth every 12 (twelve) hours for 10 doses. insulin 2019-04- No 0U Inject 0-[address] lispro 1-03 11-03 Units [facility]ukes - (HumaLOG) 00:00: 00:00 subcutaneo M edical 100 unit/mL 00 :00 usly 3 Center injection (three) times daily before meals for 125 days. rosuvastati 2019-04- No 20mg QD Take [address] [facility] n (CRESTOR) 0-31 10-31 by mouth Marjorie es - 20 MG 13:30: 00:00 daily. Medical tablet 35 :00 [place] ipratropium 2019-04- No 2{puff} [id number] Inhale [address] (ATROVENT 0-30 10-30 [id number] puffs by [facility] - HFA) 17 17:15: [...] Take 5 mg [place] (NORVASC) 5 07-29- by mouth. Me thodi mg tablet 00:00: [...] 00 :00 by mouth Center daily. metoprolol 2019- No 50mg Q.5D Take [address] (LOPRESSOR) 07-28 tablet (50 L ukes - 50 MG 00:00: 00:00 mg total) Medica l tablet 00 :00 by mouth 2 Center (two) times daily. rosuvastati 2019- No Abnormal 20mg QD Take 1 [place] (CRESTOR) 05-05 04 EKG tablet (20 M ethodi 20 MG [...] 2017-04 Yes 10mg Take 10 mg H outiffany (PRINIVIL,Z 1-30 by mouth. Met lini ESTRIL) 10 00:00: st mg tablet 00 metFORMIN Yes TAKE 1 [place] (GLUCOPHAGE 5-17 TABLET BY Met ezra ) 1,000 mg 00:00: MOUTH st tablet 00 TWICE DAILY azelastine Yes 1{spray 1 spray [place] (ASTELIN) 9-21 } into each Metho di 137 mcg 00:00: nostril. st (0.1 %) 00 nasal spray Immunizations Ordered Immunization Filled Immunization Date Status Commen ts Source Name Name Pneumococcal 2020-02-[address] [facility] - Conjugate (Prevnar) 00:00:00 Medic al Center 13-Valent INFLUENZA QIV 2020-02-[address] [facility] - ADJUVANTED PF IM 00:00:00 Medical Center Vital Signs Vital Name Observation Time Observation Value Comments Source Heart rate 2020-03-01 13:15:00 57 /min [facility] Respiratory rate 2020-03-01 13:15:00 18 /min [facility] Oxygen saturation in 2020-03-01 13:15:00 99 /min [facility] Arterial blood by Medical Ce nter Pulse oximetry Systolic blood 2020-03-01 11:08:00 172 mm[Hg] [facility] Diastolic blood 2020-03-01 11:08:00 74 mm[Hg] [facility] Body temperature 2020-03-01 09:00:00 36.39 Carmen [facility] Body height 2020-02-26 10:55:00 180.3 cm [facility] Body weight 2020-02-26 10:55:00 117.6 kg [facility] BMI 2020-02-26 10:55:00 36.16 kg/m2 [facility] Procedures Procedure Date / Time Performing Clinician Source Performed POCT-GLUCOSE METER 2020-03-01 13:03:00 Demetrius Parada [facility] BASIC METABOLIC PANEL (7) 2020-03-01 06:08:00 Andrés Parada [facility] CBC W/PLT COUNT & AUTO 2020-03-01 06:08[facility]-GLUCOSE METER 2020-02-29 21:35:00 Demetrius Parada [facility] POCT-GLUCOSE METER 2020-02-29 17:54:00 Demetrius Parada [facility] BASIC METABOLIC PANEL (7) 2020-02-29 05:53:00 Andrés Parada [facility] CBC W/PLT COUNT & AUTO 2020-02-29 05:53:[address] [facility] POCT-GLUCOSE METER 2020-02-28 21:31:00 [facility]IC [facility]OLIC PANEL (7) 2020-02-28 04:15:00 Andrés Parada [facility] CBC W/PLT COUNT & AUTO 2020-02-28 04:15:00 Demetrius Parada [facility] 2D ECHO W/ DOPPLER 2020-02-28 00:00:[address] [facility] (CW/PW/COLOR) [facility] POCT-GLUCOSE METER 2020-02-27 22:27:00 [facility] ([facility] & 2020-02-27 13:38:00 Janet Parada [facility] - REF LABS) [facility] LIPID PANEL 2020-02-27 06:08:00 Tal [facility] HEMOGLOBIN A1C 2020-02-27 06:08:00 [facility] VITAMIN B12 AND FOLATE 2020-02-27 06:08:00 Tal [facility] BASIC METABOLIC PANEL (7) 2020-02-27 06:08:00 Andrés Parada [facility] HEPATIC FUNCTION PANEL 2020-02-27 06:08:00 Tal [facility] TSH/FREE T4 IF INDICATED 2020-02-27 06:08:00 Janet Parada ra [facility] MAGNESIUM 2020-02-27 06:08:00 Demetrius Parada [facility] PHOSPHORUS 2020-02-27 06:08:00 Demetrius Parada [facility] CBC W/PLT COUNT & AUTO 2020-02-27 06:08:00 Demetrius Parada [facility] POCT-GLUCOSE METER 2020-02-26 21:26:00 Demetrius Parada [facility] MR BRAIN WITHOUT IV 2020-02-26 18:45:00 Demetrius Parada I [facility] ECG 12-LEAD 2020-02-26 17:52:46 Unknown, Hl7 Doctor [facility] URINALYSIS WITH 2020-02-26 14:22:00 Benítez, [facility] - MICROSCOPIC IF INDICATED [facility] CT/CTA CAROTID 2020-02-26 11:44:00 Benítez, [facility] CTA BRAIN 2020-02-26 11:44:00 Benítez, [facility] CT BRAIN/STROKE TEST 2020-02-26 11:43:00 Benítez, [facility] - DESIGN [facility] XR CHEST 1 VIEW 2020-02-26 11:35:00 Benítez, [facility] PORTABLE/BEDSIDE [facility] ECG 12-LEAD 2020-02-26 11:29:02 Benítez, [facility] POCT-GLUCOSE METER 2020-02-26 11:28:00 Benítez, [facility] ED ECG INTERPRETATION 2020-02-26 11:05:03 Benítez, [facility] BASIC METABOLIC PANEL (7) 2020-02-26 10:58:00 Benítez, [place] [facility] MAGNESIUM 2020-02-26 10:58:00 Benítez, [facility] TROPONIN I 2020-02-26 10:58:00 Benítez, [facility] PT/APTT 2020-02-26 10:58:00 Benítez, [facility] B-TYPE NATRIURETIC FACTOR 2020-02-26 10:58:00 Benítez, [facility] (BNP) [facility] CBC W/PLT COUNT & AUTO 2020-02-26 10:58:00 Benítez, [facility] DIFFERENTIAL [facility] REPORT OF PROCEDURE - 2020-02-26 00:00:00 Provider, Abelardo [facility] - ENDOSCOPY SCAN Scanning [facility] CT CHEST WITHOUT IV 2020-01-05 18:12:00 Natalya Tom [facility] S t [facility] CONTRAST [facility] CT ABDOMEN/PELVIS WITHOUT 2020-01-05 18:12:00 Wendy Natalya Alber[facility] - IV CONTRAST [facility] CT ABDOMEN/PELVIS WITHOUT 2019-10-16 10:48:00 Wnedy Natalya [facility] - IV CONTRAST [facility] CT CHEST WITHOUT IV 2019-10-16 10:48:00 Wendy Natalya meño [facility] S t [facility] CONTRAST [facility] CT ABDOMEN/PELVIS WITH IV 2019-06-15 14:41:00 Osbaldo Baxter [facility] CONTRAST [facility] CT CHEST WITH IV CONTRAST 2019-06-15 14:41:00 Osbaldo Baxter [facility] POCT-CREATININE 2019-06-15 14:17:00 Osbaldo Baxter [facility] [place] BILATERAL HIPS TO 2019-03-19 11:45:00 Wendy Natalya [facility] - INCLUDE PELVIS [facility] Plan of Care Planned Activity Planned Date Details Comments Source Future Scheduled 2021-02-26 PNEUMOCOCCAL 65+ YRS [facility] - Test 00:00:00 (2 of 2 - PPSV23) Medical Ce nter [code = PNEUMOCOCCAL 65+ YRS (2 of 2 - PPSV23)] Future Scheduled 2020-08-[address] [facility] kes - Test 00:00:00 [facility] (procedure) [code = 72907623] Future Scheduled 2019-11-28 INFLUENZA VACCINE [place] Test 00:00:00 [code = INFLUENZA VACCINE] Future Scheduled 2014-01-[address] [facility] - Test 00:00:00 WELLNESS (YEAR 2 or Medical Center FIRST YEAR if no IPPE) [code = MEDICARE ANNUAL WELLNESS (YEAR 2 or FIRST YEAR if no IPPE)] Future Scheduled 2013-02-24 65+ PNEUMOCOCCAL [place] Test 00:00:00 VACCINE (1 of 1 - PPSV23) [code = 65+ PNEUMOCOCCAL VACCINE (1 of 1 - PPSV23)] Future Scheduled 1998-02-24 COLONOSCOPY SCREENING [place] [facility] Test 00:00:00 [code = COLONOSCOPY SCREENING] Future Scheduled 1998-02-24 SHINGLES VACCINES (#1) [place] [facility] Test 00:00:00 [code = SHINGLES VACCINES (#1)] Future Scheduled 1958-02-24 DIABETES: RETINAL EYE [place] Test 00:00:00 EXAM [code = DIABETES: RETINAL EYE EXAM] Future Scheduled 1958-02-24 DIABETIC FOOT EXAM [place] Test 00:00:00 [code = DIABETIC FOOT EXAM] Future Scheduled 1958-02-[address] DIAB[address]IC EYE EXAM [facility] - Test 00:00:00 [code = DIABETIC EYE Medical Center EXAM] Future Scheduled 1958-02-[address] [facility] es - Test 00:00:00 examination Medical Center (regime/therapy) [code = 424587944] Future Scheduled 1958-02-24 Urine screening for [facility] - Test 00:00:00 protein (procedure) Medical Center [code = 401289006] Future Scheduled [address] es - Test 00:00:00 malignant neoplasm of Medica l Center colon (procedure) [code = 084199856] Encounters Start End Encounter Admission Attending Care Care Encounter Source Date/Time Date/Time Type Type Clinicians Facility Department ID 2020-02-22 2020-02-22 [facility] [id number] 00:00:00 00:00:00 [facility] [id number] [place] [id number] Profalexandra [phone] [place] [address] [address] 2020-02-12 2020-02-12 Orders Doctor CORNELIA [id number] 00:00:00 00:00:00 Only Unassigned, JENNI [id number] [place] [facility] [facility] [phone] [id number] 2020-02-10 2020-02-10 [facility] [id number] 00:00:00 00:00:00 [facility] [id number] [place] [id number] Professio [phone] nal 044 [address] One 2020-02-05 2020-02-05 [facility] [id number] 00:00:00 00:00:00 [facility] [id number] [place] [id number] Professio [phone] [place] [address] [address] 2020-02-02 2020-02-02 Telephone Mu [facility] [id number] 00:00:00 00:00:00 [facility] [id number] [place] [id number] Professio [phone] [place] [address] [address] 2020-01-29 2020-01-29 Receiving Clerk Lab, [facility] [id number] 08:56:39 09:06:39 Visit Fam Pob I Health [id number] [place] [id number] Professio [phone] [place] [address] [address] 2020-01-27 2020-01-27 [facility] [id number] 00:00:00 00:00:00 [facility] [id number] [place] [id number] Professio [phone] [place] [address] [address] 2020-01-25 2020-01-25 Urgent Provider, [facility] [id number] 18:38:10 19:31:10 [facility] [id number] Care [place] [id number] Professio [phone] [place] [address] [address] 2020-01-21 2020-01-21 Orders Doctor CORNELIA [id number] 00:00:00 00:00:00 Only Unassigned, JENNI [id number] [place] [facility] [phone] 009 2020-01-19 2020-01-19 [facility] [id number] 00:00:00 00:00:00 [facility] [id number] [place] [id number] Professio [phone] [place] [address] [address] 2020-01-14 2020-01-14 [facility] [id number] 00:00:00 00:00:00 [facility] [id number] [place] [id number] Professio [phone] nal [facility] Office [facility] One 2020-01-14 2020-01-14 Telephone Mu ALJAMIE [id number] 00:00:00 00:00:00 [facility] [id number] [place] [id number] Professio [phone] nal [facility] 2020-01-13 2020-01-13 Orders Doctor CORNELIA [id number] 00:00:00 00:00:00 Only Unassigned, JENNI [id number] [place] [facility] [id number] [phone] 2019-12-31 Asif Dobbins [facility] [id number] 00:00:00 00:00:00 [facility] [id number] [place] [id number] Professio [phone] [place] [address] [address] 2019-12-21 2019-12-21 Refill Mu [facility] [id number] 00:00:00 00:00:00 [facility] [id number] [place] [id number] Professio [phone] [place] [address] [address] 2019-12-16 2019-12-16 Asif Dobbins [facility] [id number] 00:00:00 00:00:00 [facility] [id number] [place] [id number] Professio [phone] nal [facility] 2019-12-10 2019-12-10 Orders Doctor CORNELIA [id number] 00:00:00 00:00:00 Only Unassigned, JENNI [id number] [place] [facility] [id number] [id number] 2019-12-09 2019-12-09 Laboratory Lab, [facility] [id number] 13:26:56 13:46:56 Only Fam Pob I Health [id number] [place] [id number] Professio [phone] [place] [address] [address] 2019-12-04 2019-12-04 Asif Dobbins, [facility] [id number] 00:00:00 00:00:00 Juma Cullen [id number] [place] [id number] Professio [phone] [address] 2019-12-02 2019-12-02 Refill Mu [facility] [id number] 00:00:00 00:00:00 Juma Cullen [id number] [place] [id number] Professio [phone] [address] 2019-11-26 2019-11-26 Asif Dobbins [facility] [id number] 00:00:00 00:00:00 Juma [place] [id number] [place] [id number] Professio [phone] [address] 2019-11-24 2019-11-24 Asif Dobbins, [facility] [id number] 00:00:00 00:00:00 Juma [place] [id number] [place] [id number] Professio [phone] [address] 2019-11-23 2019-11-23 Asif Dobbins [facility] [id number] 00:00:00 00:00:00 Juma [place] [id number] [place] [id number] Professio [phone] [address] 2019-11-23 2019-11-23 Orders Doctor CORNELIA [id number] 00:00:00 00:00:00 Only Unassigned, JENNI [id number] [place] [phone] 009 2019-11-17 2019-11-17 Asif Dobbins, [facility] [id number] 00:00:00 00:00:00 [facility] [id number] [place] [id number] Professio [phone] [facility] 0[address] One 2019-11-04 2019-11-04 Receiving Clerk 2, Adc Lab [facility] [id number] 09:28:48 09:43:48 Visit Subhash [id number] [place] [id number] Professio [phone] [address] 2019-11-04 2019-11-04 Nurse Med, [facility] [id number] 08:13:07 08:43:07 Visit Medicare Subhash [id number] Wellness [place] [id number] Ang Fam Professio [phone] [address] 2019-11-04 2019-11-04 Office [facility] [id number] 07:52:31 08:07:31 Visit Juma Cullen [id number] [place] [id number] Professio [phone] [address] 2019-11-02 2019-11-02 Orders Doctor CORNELIA [id number] 00:00:00 00:00:00 Only Unassigned, JENNI [id number] [place] [facility] [facility] [id number] Results Test Description Test Time Test Comments Results Result Comments Source POC-Glucose meter 2020-03-01 13:18:00 Test Item Value Reference Range Interpretation Comme nts POC-Glucose Meter (test code = 252 mg/dL 70-110 H : TESTED AT [facility] [address] [facility], 770 30: [facility] Induction/Techni daniel ID = [id number] for RO QUINONES Lab Interpretation (test code = Abnormal 54669-0) [facility] [id number] 13:18:00 Test Item Value Reference Range Interpretation Comments POC-GLUCOSE METER 252 mg/dL 70-110 H : TESTED A T [facility] 6720 (BEAKER) (test code = YU García [facility], 1538) [address]: [facility] Induction/Techni daniel ID = [id number] for MAGDA COATS Basic Metabolic [id number] 07:25:00 Test Item Value Reference Range Interpretation Comments Sodium (test code = 136 meq/L 348-507 6022-2) Potassium (test code = 4.2 meq/L 3.5-5.1 2823-3) Chloride (test code = 106 meq/L 98-107 2075-0) CO2 (test code = 22 meq/L 22-29 2028-9) BUN (test code = 23 mg/dL 7-21 H 3094-0) Creatinine (test code 1.80 mg/dL 0.57-1.25 H = 2160-0) Glucose (test code = 187 mg/dL 70-105 H 2345-7) Calcium (test code = 8.9 mg/dL 8.4-10.2 31411-2) EGFR (test code = 37 mL/min/1.73 [place] [address]-1) NOT ACCURATE CREATININE CLEARANCE IN PREDICTING GLOMERULAR FILTRATION RATE . ESTIMATED GFR I S NOT APPLICABLE FOR DIALYSIS PATIENTS. JOHN (test code = JOHN) [facility] In[facility] ID - SINDHU M Lab Interpretation Abnormal (test code = 34816-1) [facility] METABOLIC [id number] 07:25:00 Test Item Value Reference Range Interpretation [...] S NOT APPLICABLE FOR DIALYSIS PATIEN TS. [facility] Induction ID - SINDHU MCBC with platelet count + automated [id number] 06:52:00 Test Item Value Reference Range Interpretation [...] 450 K/CU MM MPV (test code = 58572-3) 8.8 fL 9.4-12.4 L nRBC (test code [...] 2801) Lab Interpretation (test code = Abnormal 11220-9) [facility] W/PLT COUNT & AUTO [id number] 06:52:00 Test Item Value Reference Range Interpretation [...] PERCENT (BEAKER) (test code = 2801) POCT-GLUCOSE [id number] 21:47:00 Test Item Value Reference Range Interpretation Comments POC-GLUCOSE METER 231 mg/dL 70-110 H : Notified RN/MD: (SHANEKA) (test code = TESTED AT [facility] 6720 1538) YA [facility], [address]: [facility] Induction/Techni daniel ID = [id number] for FORTUNATO GARZON POCT-GLUCOSE [id number] 18:06:00 Test Item Value Reference Range Interpretation Comments POC-GLUCOSE METER 172 mg/dL 70-110 H : TESTED A T [facility] 6720 (BEAKER) (test code = YU García [facility], 1538) [address]: [facility] Induction/Techni daniel ID = [id number] for Rupesh Holt BASIC METABOLIC [id number] 06:48:00 Test Item Value Reference Range Interpretation [...] S NOT APPLICABLE FOR DIALYSIS PATIEN TS. [facility] Induction ID - EDASICBC W/PLT COUNT & AUTO [id number] 06:21:00 Test Item Value Reference Range Interpretation [...] PERCENT (BEAKER) (test code = 2801) POCT-GLUCOSE [id number] 21:44:00 Test Item Value Reference Range Interpretation Comments POC-GLUCOSE METER 197 mg/dL 70-110 H : TESTED A T [facility] 6720 (BEAKER) (test code = YU [place], 1538) [address]: [facility]er Induction/Techni daniel ID = [id number] for LUIZA CID 2D Echo W/Doppler(CW/PW/Color) with [id number] 18:41:08Ejection FractionSLEH ECHO HEARTLAB MKDANA CPACSInterface, External Ris In - 02/28/2020 6:41 PM CSTTransthoracic Echocardiography Report (TTE) Demographics Patient Name JOHN PAUL POLLARD Date ofStudy 02/28/2020 MEGHA Gender Male Visit Number [id number] Race Unknown RoomNumber 2256 Number Date of 1950 Referring Saeed Parada Physician Age 70 year(s) House Calls Nurse Practitioner Ellie Vinegar Maker Shanel Adams Interpreting Roe Duran, Physician Procedure Type of Study TTE procedure:2DECHO [...] Valve TR Velocity: 2.27 m/s TR Gradient: 20.52mmHgCHI [facility] (Asymptomatic ONLY)2020-02-28 17:28:00 Test Item Value Reference Range Interpretation Comments SARS-COV2/RT-PCR Negative Not Detected, (test code = Negative, See 32793-4) external report for linked test SARS-COV-2 [facility] PERFORMING LAB (test code = 58716-4) JOHN (test code = Negative result for this JOHN) test determines that SARS-CoV-2 RNA was not [...] the Act. Testing was performed using the Swarm SARS-CoV-2 assay. Fact Sheet for Healthcare Providers:https://www.[employer]/fabio/RT_SA EL-WcP-2_TBZ_Bana_Khmgp_ 51-916794.pdf Fact Sheet for Healthcare Patients:https://www.ROSTR/fabio/RT_SAR A-AxJ-0_Tnpxtsd_Jqze_Cnn et_EN_51-520140C9.pdf Performing Laboratory:[facility] [place] [address].[place] [address] [facility] ([facility])2020-02-28 17:28:00 Test Item Value Reference Range Interpretation Comments SARS-COV2/RT-PCR (test Negative Not Detected, Negative, code = 1608187) See external report for linked test SARS-COV-2 PERFORMING LAB [facility] BEENA (test code = 7981940) Negative result for this test determines that [...] the Taylor SARS-CoV-2 assay.Fact Sheet for Healthcare Providers:https://www.[employer].taylor/fabio/ IQ_PLXJ-NkT-7_AZK_Miil_Xtzpb_00-152089.pdfFact Sheet for Healthcare Patients:https://www.[employer] hien/fabio/YD_HJSD-DrB-2_Xhjnqqw_Qbnl_Dbsyo_TK_04-805709T4.pdfPerforming Laboratory:[place] [address] [place] [address] BASIC METABOLIC [id number] 06:06:00 Test Item Value Reference Range Interpretation [...] S NOT APPLICABLE FOR DIALYSIS PATIEN TS. [facility] Induction ID - EDASICBC W/PLT COUNT & AUTO [id number] 04:45:00 Test Item Value Reference Range Interpretation [...] PERCENT (BEAKER) (test code = 2801) POCT-GLUCOSE [id number] 22:38:00 Test Item Value Reference Range Interpretation Comments POC-GLUCOSE METER 176 mg/dL 70-110 H : TESTED A T [facility] 6720 (BEAKER) (test code = YU [place], 1538) [address]: [facility] Induction/Techni daniel ID = [id number] for LUIZA CID ECG 12 [id number] 13:23:51Interface, External Ris In - 02/27/2020 1:23 PM CDTVentricular Rate 60 BPMAtrial Rate 60 BPMP-R Interval 196 msQRS Duration 128 msQ-T Interval 428 msQTC Calculation(Bazett) 428 msP [place] 26 degreesR [place] -11 degreesT [place] 20 degreesNormal sinus rhythmRight bundle branch blockAbnormal ECGWhen compared with ECG of 26-FEB-2020 11:29,No significant change was foundConfirmed by Rai NAVARRO, ABRIL ([id number]) on 02/27/2020 1:23:50 [facility] HospitalHemoglobin A1c - [id number] 08:25:00 Test Item Value Reference Range Interpretation Comments Hemoglobin A1C (test code = 4548-4) 6.4 % 4.3-6.1 H JOHN (test code = JOHN) Fasting Lab Interpretation (test code = Abnormal 41388-6) [facility] HospitalHEMOGLOBIN [id number] 08:25:00 Test Item Value Reference Range Interpretation Comments HEMOGLOBIN A1C (BEAKER) (test code = 6.4 % 4.3-6.1 H 368) FastingTSH/Free T4 If [id number] 07:15:00 Test Item Value Reference Range Interpretation Comments TSH (test code = 1.445 0.350- 4.940 uIU/mL 24710-0) JOHN (test code = JOHN) [facility] Induction ID - EDASI Lab Interpretation (test Normal code = 29973-2) [facility] HospitalVitamin B12 and [id number] 07:15:00 Test Item Value Reference Range Interpretation Comments Vitamin B12 (test code = 283 pg/mL 106-512 0537-9) Folate (test code = 8.00 ng/mL >=7.00 2284-8) JOHN (test code = JOHN) [facility] Induction ID - DANNIELLEASI Lab Interpretation (test Normal code = 94068-0) [facility] HospitalTSH/FREE T4 IF [id number] 07:15:00 Test Item Value Reference Range Interpretation Comments THYROID STIMULATING HORMONE 1.445 uIU/mL 0.350-4.940 (BEAKER) (test code = 772) [facility] Induction ID - EDASIVITAMIN B12 AND [id number] 07:15:00 Test Item Value Reference Range Interpretation Comments VITAMIN B12 (BEAKER) (test code = 283 pg/mL 213-816 774) FOLATE (BEAKER) (test code = 362) 8.00 ng/mL >=7.00 [facility] Induction ID - TARANFasting lipid [id number] 06:51:00 Test Item Value Reference Range Interpretation Comments Triglycerides (test 169 mg/dL code = 2571-8) Cholesterol (test code 85 mg/dL = 2093-3) HDL (test code = 16 mg/dL 5-9) LDL Calculated (test 35 mg/dL code = 71459-8) JOHN (test code = JOHN) Triglyceride Reference Range: Low Risk <150 Borderline 150-199 High Risk 200-499 Very High Risk >=500 Cholesterol Reference Range: Low Risk <200 Borderline 200-239 High Risk >240 HDL Cholesterol Reference Range: Low Risk >=60 High Risk <40 LDL Cholesterol Reference Range: Optimal <100 Near Optimal 100-129 Borderline 130-159 High 160-189 Very High >=190 [facility] Induction ID - SINDHU Richard [facility] HospitalHepatic function [id number] 06:51:00 Test Item Value Reference Range Interpretation Comments Protein, Total (test code 6.5 6.0- 8.3 gm/dL = 2885-2) Albumin (test code = 3.7 g/dL 3.5-5 80321-2) Total Bilirubin (test code 0.4 mg/dL 0.2-1.2 = 1974-) Bilirubin, Direct (test 0.2 mg/dL 0.1-0.5 code = 1967-7) Alkaline Phosphatase (test 64 U/L 40-150 code = 6768-6) AST (test code = 1920-8) 16 U/L 5-34 ALT (test code = 1742-6) 18 U/L 6-55 JOHN (test code = JOHN) [facility] Induction ID - SINDHU M Lab Interpretation (test Normal code = 57741-4) [facility] HospitalMagnesium2020-10-31 06:51:00 Test Item Value Reference Range Interpretation Comments Magnesium (test code = 1.7 mg/dL 1.6-2.6 53634-1) JOHN (test code = JOHN) [facility] Induction ID - SINDHU Lab Interpretation (test Normal code = 32831-5) [facility] HospitalPhosphorus2020-10-31 06:51:00 Test Item Value Reference Range Interpretation Comments Phosphorus (test code = 3.6 mg/dL 2.3-4.7 2777-1) JOHN (test code = JOHN) [facility] Induction ID - SINDHU Lab Interpretation (test Normal code = 62954-9) [facility] HospitalBASIC METABOLIC [id number] 06:51:00 Test Item Value Reference Range Interpretation [...] S NOT APPLICABLE FOR DIALYSIS PATIEN TS. [facility] Induction ID - SINDHU [id number] 06:51:00 Test Item Value Reference Range Interpretation Comments MAGNESIUM (BEAKER) (test code = 1.7 mg/dL 1.6-2.6 627) [facility] Induction ID - SINDHU [id number] 06:51:00 Test Item Value Reference Range Interpretation Comments PHOSPHORUS (BEAKER) (test code = 3.6 mg/dL 2.3-4.7 604) [facility] Induction ID - SINDHU MLIPID [id number] 06:51:00 Test Item Value Reference Range Interpretation [...] Borderline 130-159 High 160-189 Very High >=190 [facility] Induction ID - SINDHU MHEPATIC FUNCTION [id number] 06:51:00 Test Item Value Reference Range Interpretation [...] (test code = 18 U/L 6-55 347) [facility] Induction ID - SINDHU MCBC W/PLT COUNT & AUTO [id number] 06:17:00 Test Item Value Reference Range Interpretation [...] EOSINOPHILS ABSOLUTE COUNT 0.28 K/ L 0.04-0.54 (SHANEKA) (test code = 416) BASOPHILS ABSOLUTE COUNT (DOMAKER) 0.01 K/ L 0.01-0.08 (test code = 417) IMMATURE GRANULOCYTES-RELATIVE 0 % 0-1 PERCENT (SHANEKA) (test code = 2801) POCT-GLUCOSE [id number] 21:38:00 Test Item Value Reference Range Interpretation Comments POC-GLUCOSE METER 159 mg/dL 70-110 H : Notified RN/MD: (SHANEKA) (test code = TESTED AT [facility] 6720 1538) [facility], [address]: [facility]er Induction/Techni daniel ID = [id number] for FORTUNATO GARZON MR, BRAIN, WITHOUT [id number] 19:25:00Unlisted Reason for Exam - Click Yes and Enter Reason Below->No Deos the patient have an implanted electronic device?->NoPATTON STATE HOSPITALName: [facility] : 1950 Sex: MFINAL [...] lobe and left occipital lobe. Signed: Gloria Chavezort Verified Date/Time: 02/26/2020 19:25:47 Electronicallysigned by: GLORIA CHAVEZ MD on 02/26/2020 07:25 PMMR brain without IV [id number] 19:25:00Interface, External Ris In - 02/26/2020 7:28 [...] lobe and left occipital lobe. Signed: Gloria Chavezeport Verified Date/Dillon e: 02/26/2020 19:25:47 [facility] HospitalUrinalysis with Microscopic If [id number] 15:04:00 Test Item Value Reference Range Interpretation Comments Color, UA (test code = 5778-6) Yellow Clarity, UA (test code = 5767-9) Clear Specific [place], UA (test code = 1.020 1.005-1.030 5811-5) pH, UA (test code = 5803-2) 5.5 5.0-9.0 Protein, UA (test code = 69623-1) 30 mg/dL Negative A Glucose, UA (test code = 365) Negative Negative Ketones, UA (test code = 2514-8) Negative Negative Bilirubin, UA (test code = 18668-0) Negative Negative Blood, UA (test code = 08018-7) Negative Negative Nitrite, UA (test code = 5802-4) Negative Negative Leukocytes, UA (test code = 5799-2) Negative Negative Urobilinogen, UA (test code = 0.2 mg/dL 0.2-1 40238-5) Specimen Source (test code = 2795) Lab Interpretation (test code = Abnormal 81676-6) [facility] HospitalURINALYSIS WITH MICROSCOPIC IF [id number] 15:04:00 Test Item Value Reference Range Interpretation [...] = 463) SOURCE(BEAKER) (test code = 2795) PT/[id number] 11:46:00 Test Item Value Reference Range Interpretation Comments Protime (test code = 9.9 9.8- 12.0 seconds 5902-2) INR (test code = 0.96 <=5.90 6301-6) PTT (test code = 20.6 25.8- 34.5 L 48475-6) seconds JOHN (test code = JOHN) RECOMMENDED COUMADIN/WARFARIN INR THERAPY RANGESSTANDARD DOSE: 2.0 - 3.0 Includes: PROPHYLAXIS for venous thrombosis, systemic embolization; TREATMENT for venous thrombosis and/or pulmonary embolus.HIGH RISK: Target INR is 2.5-3.5 for patients with mechanical heart valves. Lab Interpretation Abnormal (test code = 47908-6) [facility] HospitalPT/[id number] 11:46:00 Test Item Value Reference Range Interpretation [...] for patients with mechanical heart valves.CT, CAROTID, [id number] 11:44:00 Reason for exam:->vision lossWhat is the patient's sedation requirement?- >No SedationPATTON STATE HOSPITALName: JOHN PAUL PO[facility]ARD : 1950 Sex: MFINAL REPORT EXAMINATION: CT angiogram of the [place] with contrast CLINICAL HISTORY: [...] as reasonably achievable. CT ANGIOGRAM OF THE [place] OF [place] FINDINGS:Prominent calcified atherosclerotic plaque in [...] MDReport Verified Date/Time: 02/26/2020 11:44:58 Reading Location: [facility] Reading Room [address] [place] [address] CT, CTANGIO [id number] 11:44:00Reason for exam:->Symptom onset less than 6 hours and NIHSS 6 or greaterPATTON STATE HOSPITALName: JOHN PAUL POLLARD : 1950 Sex: MFINAL REPORT EXAMINATION: CT angiogram of the [place] with contrast CLINICAL HISTORY: [...] as reasonably achievable. CT ANGIOGRAM OF THE [place] FINDINGS:Prominent calcified atherosclerotic plaque in [...] MDReport Verified Date/Time: 02/26/2020 11:44:58 Reading Location: [facility] Reading Room [address] [place] [address] [facility] [id number] 11:44:00 Interface, External Ris In - 02/26/2020 11:47 AM CDTFINAL REPORT EXAMINATION:CT angiogram of the [place] with contrast CLINICAL [...] as reasonably achievable. CT ANGIOGRAM OF THE [place] FINDINGS:Prominent calcified atherosclerotic plaque in [...] MDReport Verified Date/Time: 02/26/2020 11:44:58 Reading Location: [facility] Reading Room [address] [place] [address] Electronicallysigned by: ROLANDO Trung ALEJANDROELIJAH on 02/26/2020 11:44 [facility] [id number] 11:44:00Interface, External Ris In - 02/26/2020 11:47 AM CDTFINAL REPORT EXAMINATION: CT angiogram of the [place] with contrast CLINICAL [...] as reasonably achievable. CT ANGIOGRAM OF THE [place] FINDINGS:Prominent calcified atherosclerotic plaque in [...] MDReport Verified Date/Time: 02/26/2020 11:44:58 Reading Location: [facility] Reading Room [address] [place] [address] Electronicallysigned by: ROLANDO ATWOOD on 02/26/2020 11:44 [facility] [id number] 11:39:00 Test Item Value Reference Range Interpretation Comments POC-GLUCOSE METER 116 mg/dL 70-110 H : TESTED A T [facility] 7200 (BEAKER) (test code CAM[place] E BLDG A, = 1538) [place] [address] 0: [facility]er Induction/Techni daniel ID = [id number] for BRII LEROY B-type Natriuretic Factor (BNP)2020-02-26 11:35:00 Test Item Value Reference Range Interpretation Comments BNP (test code = 83429-1) 18 pg/mL 0-100 Lab Interpretation (test code = Normal 62837-8) [facility] HospitalTroponin [id number] 11:35:00 Test Item Value Reference Range Interpretation Comments Troponin I (test code = 0.01 ng/mL 0-0.03 99830-0) JOHN (test code = JOHN) Troponin I (TnI) levels must be interpreted [...] tachyarrhythmia. Lab Interpretation (test Normal code = 56871-6) [facility] HospitalBASI METABOLIC [id number] 11:35:00 Test Item Value Reference Range Interpretation [...] S NOT APPLICABLE FOR DIALYSIS PATIEN TS. [id number] 11:35:00 Test Item Value Reference Range Interpretation Comments MAGNESIUM (BEAKER) 1.7 mg/dL 1.6-2.6 Specimen moderately (test code = 627) hemolyzed TROPONIN [id number] 11:35:00 Test Item Value Reference Range Interpretation [...] = 700) CBC W/PLT COUNT & AUTO [id number] 11:35:00 Test Item Value Reference Range Interpretation [...] 2801) XR chest 1 view portable / [id number] 11:31:00Interface, External Ris In - 02/26/2020 11:36 AM CDTFINAL REPORT RAD, CHEST, 1 VIEW, NON DEPT INDICATION: muscle weakness COMPARISON: September 13, 2019 FINDINGS: Portable frontal viewof the chest. IMPRESSION: Support Lines: Port-A-Cath tip overlies the atriocaval junction. Lungs and pleura: Unchanged airspace and pleural opacities. No pneumothorax.Heart and mediastinum: Stable contours. Stable surgical changes.Additional findings: None. Signed: Quyen Torres MDReport VerifiedDate/Time: 02/26/2020 11:31:39 Reading Location: [facility] Radiology Reading Room [facility] HospitalRAD[facility], 1 VIEW, NON DEPT 2020-02-26 11:31:00Reason for exam:->muscle weakness [facility] : 1950 Sex: MFINAL REPORT RAD, CHEST, 1 VIEW, NON DEPT INDICATION: muscle weakness COMPARISON: September 13, 2019 FINDINGS: Portable frontal view of the chest. IMPRESSION: Support Lines: Port-A-Cath tip overlies the atriocaval junction. Lungs and pleura: Unchanged airspace and pleural opacities. No pneumothorax.Heart and mediastinum: Stable contours. Stable surgical changes.Additional findings: None. Signed: Quyen Torres MDReport Verified Date/Time: 02/26/2020 11:31:39 Reading Location: [facility] Reading [facility]stroke [id number] 11:24:00Interface, External Ris In - 02/26/2020 11:44 AM CDTAddendum BeginsREPORT STATUS:A No intracranial hemorrhage.Left posterior frontal/precentral gyrus cortico-subcortical hypodensity is new since prior CT of 09/13/2019. The findings were discussed with the DAVID Colon on 02/26/2020 at 11:15 AM Signed: Rolando Atwood MDReport Verified Date/Time: 02/26/2020 11:24:42 Reading Location: [facility] Reading Room [address] [place], [place] [address]Addendum EndsFINAL REPORT EXAMINATION:Head CT HISTORY: 70-year-old male [...] chronic microvascular ischemic changes. Signed: Rolando Atwood Verified Date/Time: 02/26/2020 11:14:42 Reading Location: [facility] Reading Room [address] [place] [address] [facility] HospitalCT, BRAIN/STROKE PROTOCOL 2020-02-26 11:24:00Reason for exam:->right arm lack of coordination, vision changesWhat is the patient's sedation requirement?->No Sedation [facility] : 1950 Sex: MAddendum BeginsREPORT STATUS:A No intracranial hemorrhage.Left posterior frontal/precentral gyrus cortico-subcortical hypodensity is new since prior CT of 09/13/2019. The findings were discussed with the RN Brii Colon on 02/26/2020 at 11:15 AM Signed: Rolando Atwood Verified Date/Time: 02/26/2020 11:24:42 Reading Location: [facility] Reading Room [address] [place], [place] [address]d dendum EndsFINAL REPORT EXAMINATION: Head CT HISTORY: [...] MDReport Verified Date/Time: 02/26/2020 11:14:42 Reading Location: [facility] Reading Room [address] [place] [address] Electronically sig andry by: ROLANDO ATWOOD on 02/26/2020 11:24 AMECG/EKG [id number] 11:05:03Griselda Benítez MD 02/26/2020 12:25 PMECG/EKG Interpretation [...] flattening in lead(s) II, III and aVF. [place] is normal. Clinical Impression: non-specific ECGECG reviewed and does not meet STEMI criteria.[facility] [id number] 00:00:00Ordered by an unspecified provider.[facility] HospitalCT, CHEST, WITHOUT IV [id number] 08:51:00ONCOLOGY SCAN RESTAGING RCC.Unlisted Reason for Exam [...] MDReport Verified Date/Time: 01/06/2020 08:51:39 Reading Location: [address] Ortho Consult Reading Room CT, [id number] 08:51:00ONCOLOGY SCAN , RESTAGING RCCUnlisted Reason for [...] MDReport Verified Date/Time: 01/06/2020 08:51:39 Reading Location: [facility] C013X Ortho Consult Reading Room CT Abdomen/Pelvis without IV [...] prostate gland. Signed: Karan Fregosoeport Verified Date/Time: 01/06/2020 08:51:39 Reading Location: [facility] B1 C013X Ortho Consult Reading Room [facility] HospitalCT Chest without IV [id number] 08:51:00Interface, External Ris In - 01/06/2020 8:53 [...] MDReport Verified Date/Time: 01/06/2020 08:51:39 Reading Location: [facility] C013X Ortho Consult Reading Room [facility] HospitalCT, [id number] 19:30:00FINAL REPORT TECHNIQUE: CT of the chest, [...] MDReport Verified Date/Time: 10/16/2019 19:30:12 Reading Location: [address] Consult Reading Room CT, CHEST, WITHOUT IV [id number] 19:30:00FINAL REPORT TECHNIQUE: CT of the chest, [...] MDReport Verified Date/Time: 10/16/2019 19:30:12 Reading Location: [facility] C0X [facility] Consult Reading Room CT, [id number] 16:30:00FINAL REPORT CT of the chest, abdomen [...] Fregosoort Verified Date/Time: 06/15/2019 16:30:24 Reading Location: [facility] C013X [facility] Consult Reading Room CT, CHEST, WITH IV [id number] 16:30:00FINAL REPORT CT of the chest, abdomen [...] Fregosoeport Verified Date/Time: 06/15/2019 16:30:24 Reading Location: [facility] B1 C013X Ortho Consult Reading Room CT Chest with IV [id number] 16:30:00Interface, External Ris In - 06/15/2019 4:32 [...] gland. Signed: Karan Fregoso MDReport Verified Date/Time: 06/15/2019 16:30:24 Reading Location: [facility] C013X Ortho Consult Reading Room [facility] HospitalCT Abdomen/Pelvis with IV [id number] 16:30:00Interface, External Ris In - 06/15/2019 4:32 [...] gland. Signed: Karan Fregoso MDReport Verified Date/Time: 06/15/2019 16:30:24 Reading Location: [facility] C013X Ortho Consult Reading Room [facility]-[id number] 14:21:00 Test Item Value Reference Range Interpretation Comments POC-Creatinine (test code 1.5 mg/dL 0.6-1.3 H TE STED AT [facility] = 1859) [address] [facility] 7 7030 POC-EGFR (test code = 46 mL/min/1.73M2 1860) Lab Interpretation (test Abnormal code = 21907-7) [facility]-[id number] 14:21:00 Test Item Value Reference Range Interpretation Comments POC-CREATININE 1.5 mg/dL 0.6-1.3 H TESTED AT [facility] 7200 ([facility]) (test [facility] G A code = 1859) [facility] 7703 0 POC-EGFR 46 mL/min/1.73M2 ([facility]) (test code = 1860) RAD, HIPS, BILATERAL TO INCLUDE [id number] 13:33:00Bilateral hip pain x monthsReason for Exam:->hip [...] MDReport Verified Date/Time: 03/19/2019 13:33:29 Reading Location: [facility] Reading Room [address] [place] [address] XR bilateral hips to include [id number] 13:33:00Interface, External Ris In - 03/19/2019 1:35 [...] MDReport Verified Date/Time: 03/19/2019 13:33:29 Reading Location: [facility] Reading Room 50 [place] [address] [facility] [id number] 11:49:00FINAL REPORT CT scan of the chest, [...] MDReport Verified Date/Time: 03/06/2019 11:49:07 Reading Location: [address] Room CT, CHEST, WITH IV [id number] 11:49:00FINAL REPORT CT scan of the chest, [...] MDReport Verified Date/Time: 03/06/2019 11:49:07 Reading Location: [facility] C013X Ortho Consult Reading Room [id number] 10:50:00 Test Item Value Reference Range Interpretation Comments POC-CREATININE 1.3 mg/dL 0.6-1.3 TESTED AT [facility] 7200 ([facility]) (test DESIREE D G A code = 1859) [facility] 7703 0 POC-EGFR 54 mL/min/1.73M2 ([facility]) (test code = 1860) ANG, CV ACCESS, [id number] 08:46:00Reason for Exam:->Clear cell renal cell carcinoma [...] MDReport Verified Date/Time: 10/01/2018 08:46:35 Reading Location: [place] [address] Angio Body Reading Room PROTHROMBIN [id number] 11:13:00 Test Item Value Reference Range Interpretation [...] mechanical heart valves.CBC W/PLT COUNT & AUTO [id number] 11:03:00 Test Item Value Reference Range Interpretation [...] code = 2801) CT, PELVIS, WITH IV [id number] 14:29:00FINAL REPORT EXAM: CT Chest, Abdomen and [...] MDReport Verified Date/Time: 09/19/2018 14:29:11 Reading Location: [facility] Reading Room [address] [place] [address] CT, CHEST, WITH IV [id number] 14:29:00FINAL REPORT EXAM: CT Chest, Abdomen and [...] MDReport Verified Date/Time: 09/19/2018 14:29:11 Reading Location: [facility] Reading Room [address] [place] [address] CT, ABDOMEN, WITH IV [id number] 14:29:00Reason for Exam:->clear cell renal cell carcinomaFINAL [...] Unchanged 5 mm right upper lobe nodule (/73). 5 mm right middle lobe nodule, abutting [...] MDReport Verified Date/Time: 09/19/2018 14:29:11 Reading Location: [facility] Reading Room [address] [place] [address] [id number] 14:19:00 Test Item Value Reference Range Interpretation Comments POC-CREATININE 1.4 mg/dL 0.6-1.3 H TESTED AT [facility] 7200 ([facility]) (test DESIREE BLD G A code = 1859) [facility] 7703 0 POC-EGFR 50 mL/min/1.73M2 (BEAKER) (test code = 1860) TISSUE [id number] 15:12:00Surgical Pathology Report Case: [id number] Authorizing Provider: Donald Mcdaniels MD Collected: 08/21/2018 1902 Ordering Location: [facility] PERI[facility] Received: 08/22/2018 0800 SERVICES Pathologist: El Busby MD Specimen: Kidney, Left, LEFT KIDNEY PART A LEFT KIDNEY AND ADRENAL GLAND, RADICAL NEPHRECTOMY:CLEAR CELL RENAL CELL CARCINOMA, NUCLEAR GRADE 2, 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 SEE SYNOPTIC REPORT. Signing PathologistDirect Phone Line: [phone] signed by El Busby MD on 08/25/2018 [...] (pT): pT1b Regional Lymph Nodes (pN): pN0 [id number] mass Leftkidney The specimen is received in [...] kidney parenchyma superior pole. CG/ew PERFORMED.BASIC METABOLIC [id number] 06:41:00 Test Item Value Reference Range Interpretation [...] PATIEN TS. CBC W/PLT COUNT & AUTO [id number] 06:14:00 Test Item Value Reference Range Interpretation [...] (BEAKER) (test code = 2801) BASIC METABOLIC [id number] 07:30:00 Test Item Value Reference Range Interpretation [...] PATIEN TS. CBC W/PLT COUNT & AUTO [id number] 07:16:00 Test Item Value Reference Range Interpretation [...] (BEAKER) (test code = 2801) BASIC METABOLIC [id number] 06:32:00 Test Item Value Reference Range Interpretation [...] PATIEN TS. CBC W/PLT COUNT & AUTO [id number] 05:57:00 Test Item Value Reference Range Interpretation [...] % 0-1 PERCENT (BEAKER) (test code = 2807) POCT-GLUCOSE [id number] 12:04:00 Test Item Value Reference Range Interpretation Comments POC-GLUCOSE METER 110 mg/dL 70-110 TESTED AT [facility] 6720 (BEAKER) (test code = YU García [facility] 1538) [address] POCT-GLUCOSE [id number] 09:07:00 Test Item Value Reference Range Interpretation Comments POC-GLUCOSE METER 104 mg/dL 70-110 TESTED AT [facility] 6720 (BEAKER) (test code = [facility] Raquel [place] 1538) [address] BASIC METABOLIC [id number] 06:10:00 Test Item Value Reference Range Interpretation [...] PATIEN TS. CBC W/PLT COUNT & AUTO [id number] 05:22:00 Test Item Value Reference Range Interpretation [...] (BEAKER) (test code = 2801) BASIC METABOLIC [id number] 21:59:00 Test Item Value Reference Range Interpretation [...] APPLICABLE FOR DIALYSIS PATIEN TS. HEMOGLOBIN AND [id number] 21:21:00 Test Item Value Reference Range Interpretation Comments HEMOGLOBIN (BEAKER) (test code = 8.8 GM/DL 13.7-17.5 L 410) HEMATOCRIT (BEAKER) (test code = 28.4 % 40.1-51.0 L 411) POCT-GLUCOSE [id number] 20:59:00 Test Item Value Reference Range Interpretation Comments POC-GLUCOSE METER 161 mg/dL 70-110 H TESTED AT [place] [address] ([facility]) (test code = [facility] [place] 1538) [address] POCT-GLUCOSE [id number] 12:51:00 Test Item Value Reference Range Interpretation Comments POC-GLUCOSE METER 131 mg/dL 70-110 H TESTED AT [place] [address] ([facility]) (test code = [facility] [place] 1538) [address] POCT-GLUCOSE [id number] 14:19:00 Test Item Value Reference Range Interpretation Comments POC-GLUCOSE METER 138 mg/dL 70-110 H TESTED AT [place] [address] ([facility]) (test code = [facility] [place] 1538) [address] POCT-GLUCOSE [id number] 08:57:00 Test Item Value Reference Range Interpretation Comments POC-GLUCOSE METER 132 mg/dL 70-110 H TESTED AT [place] [address] ([facility]) (test code = [facility] [place] 1538) [address] POCT-GLUCOSE [id number] 21:03:00 Test Item Value Reference Range Interpretation Comments POC-GLUCOSE METER 165 mg/dL 70-110 H TESTED AT [place] [address] ([facility]) (test code = [facility] [place] 1538) [address] POCT-GLUCOSE [id number] 18:52:00 Test Item Value Reference Range Interpretation Comments POC-GLUCOSE METER 127 mg/dL 70-110 H TESTED AT [place] [address] ([facility]) (test code = [facility] [place] 1538) [address] POCT-GLUCOSE [id number] 13:22:00 Test Item Value Reference Range Interpretation Comments POC-GLUCOSE METER 155 mg/dL 70-110 H TESTED AT [place] [address] ([facility]) (test code = [place] García [place] 1538) [address] POCT-GLUCOSE [id number] 08:52:00 Test Item Value Reference Range Interpretation Comments POC-GLUCOSE METER 150 mg/dL 70-110 H TESTED AT [place] [address] ([facility]) (test code = [facility] García [place] 1538) [address] POCT-GLUCOSE [id number] 22:36:00 Test Item Value Reference Range Interpretation Comments POC-GLUCOSE METER 149 mg/dL 70-110 H TESTED AT [facility] 6720 (BEAKER) (test code = YU García [place] 1538) [address] POCT-GLUCOSE [id number] 13:20:00 Test Item Value Reference Range Interpretation Comments POC-GLUCOSE METER 169 mg/dL 70-110 H TESTED AT [facility] 6720 (BEAKER) (test code = YU García [place] 1538) [address] POCT-GLUCOSE [id number] 09:00:00 Test Item Value Reference Range Interpretation Comments POC-GLUCOSE METER 140 mg/dL 70-110 H TESTED AT [facility] 6720 (BEAKER) (test code = YU García [place] 1538) [address] CBC W/PLT COUNT & AUTO [id number] 06:23:00 Test Item Value Reference Range Interpretation [...] code = 2801) ANG, ARTERIAL EMBOLIZATION FOR [id number] 15:04:00Reason for exam:- >right iliac wing RCC [...] the patient's medical record by the nurse. Biology Specimen Technician: Austin Frost MD. Corporate Risk Analyst: None. Approach: Left common femoral artery Estimated [...] aorta. Theneedle was exchanged for a 4 Lithuanian micropuncture sheath. The micropuncture sheath was exchanged over a 0.035 Bentson wire for a 5 Lithuanian x 10 cm vascular sheath. Using a 5 Lithuanian contra catheter and 0.035 angled Glidewire, the right common iliac artery was accessed via an up and over technique. A 4 Lithuanian glide catheter was advanced into the left common iliac artery and a DSA run was performed. Using a 2.8 Lithuanian microcatheter and 0.016 inch microwire, the circumflex [...] The arteriotomy was closed using a 5 Lithuanian Myxn closure device. A sterile dressing was [...] hypervascularity as detailed above. Signed: Austin Frost [facility] Verified Date/Time: 08/15/2018 15:04:06 Reading Location: [facility] B1 P048 Angio Body Reading Room POCT-GLUCOSE [id number] 11:13:00 Test Item Value Reference Range Interpretation Comments POC-GLUCOSE METER 136 mg/dL 70-110 H TESTED AT [facility] 6720 (BEAKER) (test code = YU [place] 1538) [address] BASIC METABOLIC [id number] 04:54:00 Test Item Value Reference Range Interpretation [...] S NOT APPLICABLE FOR DIALYSIS PATIEN TS. [id number] 04:52:00 Test Item Value Reference Range Interpretation Comments PHOSPHORUS (BEAKER) (test code = 2.7 mg/dL 2.3-4.7 604) [id number] 04:52:00 Test Item Value Reference Range Interpretation Comments MAGNESIUM (BEAKER) (test code = 1.6 mg/dL 1.6-2.6 627) HEPATIC FUNCTION [id number] 04:52:00 Test Item Value Reference Range Interpretation [...] 6-55 347) CBC W/PLT COUNT & AUTO [id number] 04:32:00 Test Item Value Reference Range Interpretation [...] NEUTROPHILS ABSOLUTE COUNT 2.44 K/ L 1.78-5.38 (AKER) (test code = 670) LYMPHOCYTES ABSOLUTE COUNT 1.33 K/ L 1.32-3.57 (AKER) (test code = 414) MONOCYTES ABSOLUTE COUNT (BEAKER) 0.46 K/ L 0.30-0.82 (test code = 415) EOSINOPHILS ABSOLUTE COUNT 0.08 K/ L 0.04-0.54 (BEAKER) (test code = 416) BASOPHILS ABSOLUTE COUNT (BEAKER) 0.01 K/ L 0.01-0.08 (test code = 417) IMMATURE GRANULOCYTES-RELATIVE 1 % 0-1 PERCENT (AKER) (test code = 2801) POCT-GLUCOSE [id number] 21:14:00 Test Item Value Reference Range Interpretation Comments POC-GLUCOSE METER 170 mg/dL 70-110 H TESTED AT [place] [address] ([facility]) (test code = [facility] 1538) [address] POCT-GLUCOSE [id number] 13:18:00 Test Item Value Reference Range Interpretation Comments POC-GLUCOSE METER 141 mg/dL 70-110 H TESTED AT [place] [address] ([facility]) (test code = [facility] 1538) [address] POCT-GLUCOSE [id number] 09:24:00 Test Item Value Reference Range Interpretation Comments POC-GLUCOSE METER 132 mg/dL 70-110 H TESTED AT [place] [address] ([facility]) (test code = [facility] 1538) [address] CBC W/PLT COUNT & AUTO [id number] 06:37:00 Test Item Value Reference Range Interpretation Comments WHITE BLOOD CELL COUNT (AKER) 4.8 K/ L 3.5-10.5 (test code = 775) RED BLOOD CELL COUNT (BEAKER) 3.25 M/ L 4.63-6.08 L (test code = 761) HEMOGLOBIN (BEAKER) (test code = 9.5 GM/DL 13.7-17.5 L 410) HEMATOCRIT (AKER) (test code = 29.2 % 40.1-51.0 L 411) MEAN CORPUSCULAR VOLUME ([facility]) 89.8 fL 79.0-92.2 (test code = 753) [...] 0-1 PERCENT (BEAKER) (test code = 2801) [id number] 06:13:00 Test Item Value Reference Range Interpretation Comments PHOSPHORUS (BEAKER) (test code = 4.3 mg/dL 2.3-4.7 604) [id number] 06:13:00 Test Item Value Reference Range Interpretation Comments MAGNESIUM (BEAKER) (test code = 1.7 mg/dL 1.6-2.6 627) BASIC METABOLIC [id number] 06:13:00 Test Item Value Reference Range Interpretation [...] APPLICABLE FOR DIALYSIS PATIEN TS. HEPATIC FUNCTION [id number] 06:13:00 Test Item Value Reference Range Interpretation [...] code = 7 U/L 6-55 347) POCT-GLUCOSE [id number] 22:31:00 Test Item Value Reference Range Interpretation Comments POC-GLUCOSE METER 157 mg/dL 70-110 H TESTED AT [facility] 6720 (BEAKER) (test code = [place] 1538) [address] RAD, PELVIS, 1 OR 2 [id number] 20:11:00Reason for exam:->postop right pelvis fixation and [...] Escobar MDReport Verified Date/Time: 08/13/201820:11:08 Reading Location: [facility] B1 C013W Consult Reading Room POCT-GLUCOSE [id number] 18:15:00 Test Item Value Reference Range Interpretation Comments POC-GLUCOSE METER 146 mg/dL 70-110 H TESTED AT [facility] 6720 ([facility]) (test code = [place] 1538) [address] HEMOGLOBIN AND [id number] 18:05:00 Test Item Value Reference Range Interpretation Comments HEMOGLOBIN (BEAKER) (test code = 10.3 GM/DL 13.7-17.5 L 410) HEMATOCRIT (BEAKER) (test code = 32.5 % 40.1-51.0 L 411) FL, CTE TEACHER IN OR/30 MINUTE [id number] 17:33:00Reason for exam:->painFINAL REPORT Operative right hip, 08/13/2018 Eight images are submitted of theright hip in various projections displaying initial placement of of contrast into the superior acetabular region followed by placement of two screws extending transversely into the acetabulum. 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 Signed:Rika Escobar MDRtiffany Verified Date/Time: 08/13/2018 17:33:20 Reading Location: [facility] B1 C013W Consult Reading Room PROTHROMBIN [id number] 03:57:00 Test Item Value Reference Range Interpretation Comments PROTIME (BEAKER) (test code = 13.7 seconds 11.7-14.7 759) INR (BEAKER) (test code = 370) 1.0 <=5.9 RECOMMENDED COUMADIN/WARFARIN INR THERAPY RANGESSTANDARD DOSE: 2.0 - 3.0 Includes: PROPHYLAXIS forvenous thrombosis, systemic embolization; TREATMENT for venous thrombosis and/or pulmonary embolus.HIGH RISK: Target INR is 2.5-3.5 for patients with mechanical heart valves.[id number] 03:55:00 Test Item Value Reference Range Interpretation Comments PHOSPHORUS (BEAKER) (test code = 3.2 mg/dL 2.3-4.7 604) [id number] 03:55:00 Test Item Value Reference Range Interpretation Comments MAGNESIUM (BEAKER) (test code = 1.4 mg/dL 1.6-2.6 L 627) BASIC METABOLIC [id number] 03:55:00 Test Item Value Reference Range Interpretation [...] NOT APPLICABLE FOR DIALYSIS PATIEN TS. LIPID [id number] 03:55:00 Test Item Value Reference Range Interpretation [...] 130-159 High 160-189 Very High >=190HEPATIC FUNCTION [id number] 03:55:00 Test Item Value Reference Range Interpretation [...] 6-55 347) CBC W/PLT COUNT & AUTO [id number] 03:42:00 Test Item Value Reference Range Interpretation [...] (BEAKER) (test code = 2801) BASIC METABOLIC [id number] 11:50:00 Test Item Value Reference Range Interpretation [...] I S NOT APPLICABLE FOR DIALYSIS PATIEN [id number] 11:32:00 Test Item Value Reference Range Interpretation Comments PARTIAL THROMBOPLASTIN TIME 30.9 seconds 22.5-36.0 (BEAKER) (test code = 760) PROTHROMBIN [id number] 11:31:00 Test Item Value Reference Range Interpretation [...] PERCENT (BEAKER) (test code = 2801) TISSUE [id number] 16:07:00Surgical Pathology Report Case: [id number] Authorizing Provider: Antonio Weir MD Collected: 07/28/2018 1122 Ordering Location: [address] Received: 07/28/2018 1458 Service Pathologist: Franki Ku MD Specimen: Kidney, Left KIDNEY, LEFT, 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 Some parts of the tumor have prominent eosinophiliccytoplasm. INTRADEPARTMENTAL CONSULTATION: - Tono Lundy MD has seen the case and agrees withthe diagnosis.87508Hpyg renal mass 7.2 x 5.1 x 6.0 cmLeft [place] renal biopsyThe specimen is received in a formalin-filled container labeled with the patient's information and labeled "left [place] renal biopsy" and consists of multiple couch- red core biopsies ranging from 0.1 to 1.5 cm, submitted entirely in A1. CG/ew Performed.The interpretation of this case included the use of immunohistochemistry orspecial stains. Immunohistochemistry technical testing was performed at [facility], Pathology Laboratory where it was [...] aboratory testing.RAD, KNEE, 1 OR 2 VIEWS, [id number] 12:35:00Reason for exam:->possible cancer seen on bone [...] changes in the left knee. Signed: Sherif Garzaort Verified Date/Time: 07/29/2018 12:35:32 Reading Location: [address] Consult Reading Room POCT-GLUCOSE [id number] 13:11:00 Test Item Value Reference Range Interpretation Comments POC-GLUCOSE METER 118 mg/dL 70-110 H TESTED AT [facility] 6720 ([facility] (test code = YU García [place] 1538) [address] U/S, BIOPSY, RENAL (KIDNEY)2018-07-28 11:52:00Reason for exam:->L [...] and Fentanyl 50 mcg IV administered. The [facility] of radiology nurse was present at the time of procedure. Monitored cardiorespiratory function during conscious sedation was performed under the radiologist's supervision. Total monitoring time was approximately 45 minutes. IMPRESSION: Ultrasound-guided core biopsy of the left renal mass without complication. Signed: Caron Rick MDReport Verified Date/Time: 07/28/2018 11:52:52 Reading Location: [address] Ultrasound Reading Room POCT-GLUCOSE [id number] 08:38:00 Test Item Value Reference Range Interpretation Comments POC-GLUCOSE METER 128 mg/dL 70-110 H TESTED AT [facility] 6720 ([facility]) (test code = [facility] 1538) [address] BASIC METABOLIC [id number] 06:31:00 Test Item Value Reference Range Interpretation [...] S NOT APPLICABLE FOR DIALYSIS PATIEN TS. [id number] 05:25:00 Test Item Value Reference Range Interpretation [...] PERCENT (BEAKER) (test code = 2801) POCT-GLUCOSE [id number] 22:16:00 Test Item Value Reference Range Interpretation Comments POC-GLUCOSE METER 140 mg/dL 70-110 H TESTED AT [facility] 6720 ([facility]) (test code = [facility] 1538) [address] BONE AND/OR JOINT IMAGING, WHOLE [id number] 20:29:00FINAL REPORT PROCEDURE: BONE SCAN, WHOLE BODY CPT CODE: 93604 ONEIL CATION: Renal masses pelvic mass concerning [...] Shabana Prather Verified Date/Time: 07/27/2018 20:29:10 POCT-GLUCOSE [id number] 18:46:00 Test Item Value Reference Range Interpretation Comments POC-GLUCOSE METER 115 mg/dL 70-110 H TESTED AT [place] [address] ([facility]) (test code = [facility] [employer] [facility] 1538) [address] POCT-GLUCOSE [id number] 14:03:00 Test Item Value Reference Range Interpretation Comments POC-GLUCOSE METER 141 mg/dL 70-110 H TESTED AT [place] [address] ([facility]) (test code = [facility] [employer] [facility] 1538) [address] POCT-GLUCOSE [id number] 09:27:00 Test Item Value Reference Range Interpretation Comments POC-GLUCOSE METER 138 mg/dL 70-110 H TESTED AT [place] [address] ([facility]) (test code = [facility] 1538) [address] POCT-GLUCOSE [id number] 08:49:00 Test Item Value Reference Range Interpretation Comments POC-GLUCOSE METER 204 mg/dL 70-110 H TESTED AT [place] [address] ([facility]) (test code = [facility] [employer] [facility] 1538) [address] POCT-GLUCOSE [id number] 18:45:00 Test Item Value Reference Range Interpretation Comments POC-GLUCOSE METER 104 mg/dL 70-110 TESTED AT [place] [address] ([facility]) (test code = [facility] [employer] [facility] 1538) [address] HEPATIC FUNCTION [id number] 07:52:00 Test Item Value Reference Range Interpretation Comments TOTAL PROTEIN ([facility]) (test code = 7.0 gm/dL 6.0-8.3 770) ALBUMIN ([facility]) (test code = 1145) 3.6 g/dL 3.5-5.0 BILIRUBIN TOTAL ([facility]) (test code 0.4 mg/dL 0.2-1.2 = 377) BILIRUBIN DIRECT (BEAKER) (test 0.2 mg/dL 0.1-0.5 code = 706) ALKALINE PHOSPHATASE (BEAKER) (test 76 U/L 40-150 code = 346) AST (SGOT) (BEAKER) (test code = 18 U/L 5-34 353) ALT (SGPT) (BEAKER) (test code = 14 U/L 6-55 347) POCT-GLUCOSE [id number] 06:11:00 Test Item Value Reference Range Interpretation Comments POC-GLUCOSE METER 144 mg/dL 70-110 H TESTED AT [facility] 67 (BEAKER) (test code = [facility] 1538) [address] POCT-GLUCOSE [id number] 22:55:00 Test Item Value Reference Range Interpretation Comments POC-GLUCOSE METER 187 mg/dL 70-110 H TESTED AT [place] [address] ([facility]) (test code = [facility] 1538) [address] VITAMIN B12 AND [id number] 16:34:00 Test Item Value Reference Range Interpretation Comments VITAMIN B12 (BEAKER) (test code = 1244 pg/mL 213-816 H 774) FOLATE (BEAKER) (test code = 362) 5.1 ng/mL >=7.0 L HEMOGLOBIN [id number] 10:21:00 Test Item Value Reference Range Interpretation Comments HEMOGLOBIN A1C (BEAKER) (test code = 4.5 % 4.3-6.1 368) CBC W/PLT COUNT & AUTO [id number] 07:02:00 Test Item Value Reference Range Interpretation Comments WHITE BLOOD CELL COUNT (BEAKER) 4.6 K/ L 3.5-10.5 (test code = 775) RED BLOOD CELL COUNT (BEAKER) 3.50 M/ L 4.63-6.08 L (test code = 761) HEMOGLOBIN (BEAKER) (test code = 9.7 GM/DL 13.7-17.5 L 410) HEMATOCRIT (BEAKER) (test code = 30.6 % 40.1-51.0 L 411) MEAN CORPUSCULAR VOLUME (AKER) 87.4 fL 79.0-92.2 (test code = 753) [...] 0-1 PERCENT (BEAKER) (test code = 2801) [id number] 06:53:00 Test Item Value Reference Range Interpretation [...] L (test code = 2590) BASIC METABOLIC [id number] 06:12:00 Test Item Value Reference Range Interpretation [...] FOR DIALYSIS PATIEN TS. CT, CHEST, WITH [id number] 21:44:00FINAL REPORT CT of the Chest, abdomen [...] MDReport Verified Date/Time: 07/24/2018 21:44:37 Reading Location: [address] Consult Reading [facility] [id number] 21:44:00FINAL REPORT CT of the Chest, abdomen [...] without hydronephrosis or hydroureter. Signed: Sherif Garza [facility] Verified Date/Time: 07/24/2018 21:44:37 Reading Location: [facility] Consult Reading Room POCT-GLUCOSE [id number] 21:35:00 Test Item Value Reference Range Interpretation Comments POC-GLUCOSE METER 104 mg/dL 70-110 TESTED AT [place] [address] ([facility]) (test code = YU García [facility] 1538) [address] POCT-GLUCOSE [id number] 17:53:00 Test Item Value Reference Range Interpretation Comments POC-GLUCOSE METER 163 mg/dL 70-110 H TESTED AT [facility] 67 ([facility]) (test code = YU García [facility] 1538) [address] URINALYSIS W/ REFLEX URINE [id number] 17:22:00 Test Item Value Reference Range Interpretation [...] = 1574) Few SOURCE(BEAKER) (test code = 2795) POCT-GLUCOSE [id number] 10:06:00 Test Item Value Reference Range Interpretation Comments POC-GLUCOSE METER 121 mg/dL 70-110 H TESTED AT [facility] 6720 (BEAKER) (test code = YU MELCHOR 1538) 22011 BASIC METABOLIC [id number] 05:47:00 Test Item Value Reference Range Interpretation [...] PATIEN TS. CBC W/PLT COUNT & AUTO [id number] 05:38:00 Test Item Value Reference Range Interpretation [...] PERCENT (BEAKER) (test code = 2801) POCT-GLUCOSE [id number] 21:46:00 Test Item Value Reference Range Interpretation Comments POC-GLUCOSE METER 144 mg/dL 70-110 H TESTED AT [facility] [address] ([facility]) (test code = [facility] 1538) [address]673 POCT-GLUCOSE [id number] 12:41:00 Test Item Value Reference Range Interpretation Comments POC-GLUCOSE METER 141 mg/dL 70-110 H TESTED AT [place] [address] ([facility] BEHAVIORAL HEALTH) (test code = [facility] 1538) 0[address] CBC W/PLT COUNT & AUTO [id number] 05:23:00 Test Item Value Reference Range Interpretation [...] (BEAKER) (test code = 2801) BASIC METABOLIC [id number] 05:22:00 Test Item Value Reference Range Interpretation [...] NOT APPLICABLE FOR DIALYSIS PATIEN TS. PROTHROMBIN [id number] 05:15:00 Test Item Value Reference Range Interpretation Comments PROTIME (SHANEKA) (test code = 13.1 seconds 11.7-14.7 759) INR (ALEYDA) (test code = 370) 1.0 <=5.9 RECOMMENDED COUMADIN/WARFARIN INR THERAPY RANGESSTANDARD DOSE: 2.0 - 3.0 Includes: PROPHYLAXIS forvenous thrombosis, systemic embolization; TREATMENT for venous thrombosis and/or pulmonary embolus.HIGH RISK: Target INR is 2.5-3.5 for patients with mechanical heart valves.POCT-GLUCOSE [id number] 00:12:00 Test Item Value Reference Range Interpretation Comments POC-GLUCOSE METER 121 mg/dL 70-110 H TESTED AT [place] [address] (SHANEKA) (test code = YU MELCHOR 4054) [address]
--- OUTSIDE RECORDS SUMMARY | 2020-03-14 15:55 | XMS REPORT | Summary of Care ---
:1950 Author Organization [facility] - [facility] Address [address] [place] [address] Care Team Providers Name Role Phone MD Mu Primary Care Provider Reason for Visit Reason Comments Eye Problem watery and itchy eyes Encounter Details Date Type Department Care Team Description 01/25/2020 Urgent Care [facility] Lu CedilloGENIE [address] [facility] [address] [place], [place] [address] Allergic conjunctivitis of both eyes (Pr imary Dx); Medicine [facility] Provider, [facility] Ur[facility] Care Itchy skin [address] [place] [address] Allergies Active Allergy Reactions Severity Noted Date Comments Metoclopramide Hcl Rash 06/03/2012 documented as of this encounter (statuses as of 01/25/2020) Medications Medication Sig Dispensed Refills Start Date End Date Status ipratropium (ATROVENT) 0 04/15/2012 Active 0.03 % nasal sprayIndications: Type II or unspecified type diabetes mellitus without mention of complication, uncontrolled azelastine 137 mcg Use 1 [place] in 30 mL 5 11/03/2018 Active (0.1 [...] reflux disease, esophagitis presence not specified LOVAZA, shrge-2-jvey TAKE 4 CAPSULES 360 capsule 1 05/06/2019 [...] compli cations 06/03/2012 Overview: ICD10 Diagnosis Term 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 SCHEDULE AN APPOINTMENT ONLINE AT WWW[facility] 2. OR CALL THE [facility] ACCESS CENTER AT OR 3. OR CALL YOUR [facility] PHYSICIAN'S OFFICE DIRECTLY IF YOU ARE ALREADY AN ESTABLISHED [facility] PATIENT. After [facility] care nurse access center available by calling [phone] 24 hours 7 days per week. Lu [facility] documented in this encounter [...] mouth every morning. 90 tablet 0 LOVAZA, wlhde-4-eldl ethyl esters, 1 gram capsule TAKE 4 [...] mcg (0.1 %) nasal spray Use 1 [place] in each nostril 2 (two) times daily. Use in each nostril as directed 30 mL 5 ipratropium (ATROVENT) 0.03 % nasal spray No facility-administered medications prior to visit. Histories Past Medical History: Diagnosis Date Cancer kidney Coronary artery disease DM w/o complication type II 2009 Gout HLD (hyperlipidemia) HTN (hypertension) [place], old 2000 Obesity Sleep apnea Past Surgical [...] file Gets together: Not on file Attends cheondoism service: Not on file Active member of [...] has 2 adult children who live in 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 No nasal tenderness. Mouth/Throat: Lips: [place]. Mouth: Mucous membranes are moist. Pharynx: Oropharynx [...] IF YOU WISH TO FOLLOW-UP WITHIN THE [facility], MAY TRY THESE OPTIONS (CLINIC APPOINTMENTS AVAILABLE ON [id number] BASIS): 1. SCHEDULE AN APPOINTMENT ONLINE AT WWW[facility] 2. OR CALL THE [facility] ACCESS CENTER AT OR 3. OR CALL YOUR [facility] PHYSICIAN'S OFFICE DIRECTLY IF YOU ARE ALREADY AN ESTABLISHED [facility] PATIENT. After hours care nurse access center available by calling [phone] 24 hours 7 days per week. Lu [facility] documented in this encounter [...] ype Group Dates MEDICARE MEDICARE PART A [id number] 2013-Pres [phone] Medicare & B ent 82 [id number] MALA COOPER [id number] EQUITABLE EQUITABLE [id number] 2017-Yovani spence documented as of this encounter Advance Directives Type Date Recorded Patient Clinical Ob Explanati on Advance Directives and Living Will Power of Neuropathologist
--- OUTSIDE RECORDS SUMMARY | 2020-03-14 15:55 | XMS REPORT | Summary of Care ---
:1950 Author Organization [facility] - [facility] Address [address] [place] [address] Care Team Providers Name Role Phone MD Mu Primary Care Provider Reason for Visit Reason Comments Assessment Encounter Details Date Type Department Care Team Description 01/14/2020 Telephone [facility] Family Medicine Juma Li MD Assessment - [address] [place] [facility] [address] [place] [address] [phone] Allergies Active Allergy Reactions Severity Noted Date Comments Metoclopramide Hcl Rash 06/03/2012 documented as of this encounter (statuses as of 01/14/2020) Medications Medication Sig Dispensed Refills Start Date End Date Status ipratropium (ATROVENT) 0 04/15/2012 Active 0.03 % nasal sprayIndications: Type II or unspecified type diabetes mellitus without mention of complication, uncontrolled azelastine 137 mcg Use 1 [place] in 30 mL 5 11/03/2018 Active [...] reflux disease, esophagitis presence not specified LOVAZA, xyled-5-bxal TAKE 4 CAPSULES 360 capsule 1 05/06/2019 [...] compli cations 06/03/2012 Overview: ICD10 Diagnosis Term Kettle Loader Utility Essential hypertension, benign 06/03/2012 HLD (hyperlipidemia) [...] ype Group Dates MEDICARE MEDICARE PART A [id number] 2013-Pres [phone] [address] Medicare & B ent 82 [id number] MALA COOPER [id number] EQUITABLE EQUITABLE [id number] 2017-Yovani spence documented as of this encounter Advance Directives Type Date Recorded Patient Stonecutter Explanati on Advance Directives and Living Will Power of Associate Data Scientist
--- OUTSIDE RECORDS SUMMARY | 2020-03-14 15:55 | XMS REPORT | Summary of Care ---
:1950 Author Organization [facility] - [facility] Address [address] [place] [address] Care Team Providers Name Role Phone MD Mu Primary Care Provider Reason for Visit Reason Comments Assessment Encounter Details Date Type Department Care Team Description 12/16/2019 Telephone [facility] Family Medicine Juma Li MD Assessment - [address] [place] [employer] [facility] [employer] [facility] [place] [address] [place] [address] [phone] Allergies Active Allergy Reactions Severity Noted Date Comments Metoclopramide Hcl Rash 06/03/2012 documented as of this encounter (statuses as of 12/16/2019) Medications Medication Sig Dispensed Refills Start Date End Date Status ipratropium (ATROVENT) 0 04/15/2012 Active 0.03 % nasal sprayIndications: Type II or unspecified type diabetes mellitus without mention of complication, uncontrolled azelastine 137 mcg Use 1 [place] in 30 mL 5 11/03/2018 Active (0.1 [...] times daily. 2, uncontrolled, without complications LOVAZA, sjljm-2-rorz TAKE 4 CAPSULES 360 capsule 1 05/06/2019 [...] compli cations 06/03/2012 Overview: ICD10 Diagnosis Term National Accounts Sales Utility Essential hypertension, benign 06/03/2012 HLD (hyperlipidemia) [...] - 12/16/2019 12:54 PM CDTContinue to [facility]. 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 elephone Encounter - Lucia Pike - 12/16/2019 11:34 AM CDTMarla with [facility] calling to report patient blood pressure reading for today 176/77. Please contact [facility] at [phone]. documented in this encounter Plan of Treatment [...] ype Group Dates MEDICARE MEDICARE PART A [id number] 2013-Pres [phone] [address] Medicare & B ent 82 [id number] MALA COOPER [id number] EQUITABLE EQUITABLE [id number] 2017-Yovani spence documented as of this encounter Advance Directives Type Date Recorded Patient Charge Rn Explanati on Advance Directives and Living Will Power of Hop Separator
--- OUTSIDE RECORDS SUMMARY | 2020-03-14 15:55 | XMS REPORT | Summary of Care ---
:1950 Author Organization [facility] Address [address] [place] [address] Care Team Providers Name Role Phone MD Mu Primary Care Provider Reason for Visit Reason Comments Refill Request Encounter Details Date Type Department Care Team Description 12/21/2019 Refill [facility] Family Medicine Juma Li MD Refill Request - [address] [place] [address] [place] [address] [phone] Allergies Active Allergy Reactions Severity Noted Date Comments Metoclopramide Hcl Rash 06/03/2012 documented as of this encounter (statuses as of 12/22/2019) Medications Medication Sig Dispensed Refills Start End Date Status Date ipratropium 0 Active (ATROVENT) 0.03 % 2 nasal sprayIndications: Type II or unspecified type diabetes mellitus without mention of complication, uncontrolled azelastine 137 mcg Use 1 [place] in 30 mL 5 Active (0.1 %) [...] reflux disease, esophagitis presence not specified LOVAZA, nvqva-8-hcob TAKE 4 360 capsule 1 Active ethyl [...] compli cations 06/03/2012 Overview: ICD10 Diagnosis Term Gut Sorter Utility Essential hypertension, benign 06/03/2012 HLD (hyperlipidemia) [...] ype Group Dates MEDICARE MEDICARE PART A [id number] 2013-Pres [phone] [address] Medicare & B ent 82 [id number] MALA COOPER [id number] EQUITABLE EQUITABLE [id number] 2017-Yovani spence documented as of this encounter Advance Directives Type Date Recorded Patient Box Car Washer Explanati on Advance Directives and Living Will Power of Finishing Inspector
--- OUTSIDE RECORDS SUMMARY | 2020-03-14 15:56 | XMS REPORT | Summary of Care ---
:1950 Author Organization [facility] Address [address] [place] [address] Care Team Providers Name Role Phone MD Mu Primary Care Provider Reason for Visit Reason Comments Orders Encounter Details Date Type Department Care Team Description 01/27/2020 Telephone [facility] Family Medicine Juma Li MD Orders - [address] [place] [address] [place] [address] [phone] Allergies Active Allergy Reactions Severity Noted Date Comments Metoclopramide Hcl Rash 06/03/2012 documented as of this encounter (statuses as of 01/28/2020) Medications Medication Sig Dispensed Refills Start Date End Date Status ipratropium (ATROVENT) 0 04/15/2012 Active 0.03 % nasal sprayIndications: Type II or unspecified type diabetes mellitus without mention of complication, uncontrolled azelastine 137 mcg Use 1 [place] in 30 mL 5 11/03/2018 Active (0.1 [...] reflux disease, esophagitis presence not specified LOVAZA, xdcoy-0-adpx TAKE 4 CAPSULES 360 capsule 1 05/06/2019 [...] compli cations 06/03/2012 Overview: ICD10 Diagnosis Term Office Equipment Technician Utility Essential hypertension, benign 06/03/2012 HLD [...] AM CDTI would like a BMP and [id number] signed by Juma Deleon MD at 01/28/2020 [...] ation, Expires: 01/27/2021 CREATININE, [place]) unspecified whether moth exterminator insulin use GLYCOSYLATED HEMOGLOBIN LAB Routine Type 2 diabetes m ellitus Expected: 01/28/2020, (A1C) without complication, s: 01/27/2021 unspecified whether moth exterminator insulin use Health Maintenance Due Date Last [...] diabetes mellitus without complic ation, unspecified whether usp insulin use - Primary documented in this encounter Insurance Payer Benefit Plan / Subscriber ID Effective Phone Address T ype Group Dates MEDICARE MEDICARE PART A [id number] 2013-Pres [phone] [address] Medicare & B [facility] [id number] MALA COOPER [phone] EQUITABLE EQUITABLE [id number] 2017-Yovani spence documented as of this encounter Advance Directives Type Date Recorded Patient Academic Records Specialist Explanati on Advance Directives and Living Will Power of Production Team Leader
--- OUTSIDE RECORDS SUMMARY | 2020-03-14 15:56 | XMS REPORT | Summary of Care ---
:1950 Author Organization [facility] Address [address] [place] [address] Care Team Providers Name Role Phone MD Mu Primary Care Provider Reason for Visit Reason Comments Orders Encounter Details Date Type Department Care Team Description 02/02/2020 Telephone [facility] Family Medicine Juma Li MD Orders - [address] [place] [address] [place] [address] [phone] Allergies Active Allergy Reactions Severity Noted Date Comments Metoclopramide Hcl Rash 06/03/2012 documented as of this encounter (statuses as of 02/02/2020) Medications Medication Sig Dispensed Refills Start Date End Date Status ipratropium (ATROVENT) 0 04/15/2012 Active 0.03 % nasal sprayIndications: Type II or unspecified type diabetes mellitus without mention of complication, uncontrolled azelastine 137 mcg Use 1 [place] in 30 mL 5 11/03/2018 Active (0.1 [...] reflux disease, esophagitis presence not specified LOVAZA, eziwx-8-jhgq TAKE 4 CAPSULES 360 capsule 1 05/06/2019 [...] compli cations 06/03/2012 Overview: ICD10 Diagnosis Term Hotel Or Motel Room Service Supervisor Utility Essential hypertension, benign 06/03/2012 HLD (hyperlipidemia) [...] Pike - 02/02/2020 10:57 AM CDTNicole with [facility] calling to check on status of home health orders. Please contact Amy at [phone] signed by Lucia Pike at 02/02/2020 10:58 [...] ype Group Dates MEDICARE MEDICARE PART A [id number] 2013-Pres [phone] [address] Medicare & B ent 82 [id number] MALA COOPER [id number] EQUITABLE EQUITABLE [id number] 2017-Yovani spence documented as of this encounter Advance Directives Type Date Recorded Patient Husbandry Technician Explanati on Advance Directives and Living Will Power of Dispatcher Maintenance Service
--- OUTSIDE RECORDS SUMMARY | 2020-03-14 15:56 | XMS REPORT | Summary of Care ---
:1950 Author Organization [facility] Address [address] [place] [address] Care Team Providers Name Role Phone MD Mu Primary Care Provider Reason for Visit Reason Comments Orders Encounter Details Date Type Department Care Team Description 02/10/2020 Telephone [facility] Family Medicine Juma Li MD Orders - [address] [place] [address] [place] [address] [phone] Allergies Active Allergy Reactions Severity Noted Date Comments Metoclopramide Hcl Rash 06/03/2012 documented as of this encounter (statuses as of 02/10/2020) Medications Medication Sig Dispensed Refills Start Date End Date Status ipratropium (ATROVENT) 0 04/15/2012 Active 0.03 % nasal sprayIndications: Type II or unspecified type diabetes mellitus without mention of complication, uncontrolled azelastine 137 mcg Use 1 [place] in 30 mL 5 11/03/2018 Active (0.1 [...] reflux disease, esophagitis presence not specified LOVAZA, yznen-8-dfzv TAKE 4 CAPSULES 360 capsule 1 05/06/2019 [...] compli cations 06/03/2012 Overview: ICD10 Diagnosis Term Health And Fitness Professor Utility Essential hypertension, benign 06/03/2012 HLD (hyperlipidemia) [...] - 02/10/2020 1:31 PM CDTReceived fax from [facility] Only received pages 2,4,6 of orders Can you resend this back to [phone] In provider basket documented in this encounter [...] ype Group Dates MEDICARE MEDICARE PART A [id number] 2013-Pres [phone] [address] Medicare & B ent 82 [id number] MALA COOPER [id number] EQUITABLE EQUITABLE [id number] 2017-Yovani spence documented as of this encounter Advance Directives Type Date Recorded Patient Motor Analyst Explanati on Advance Directives and Living Will Power of Lumber Press Operator
--- OUTSIDE RECORDS SUMMARY | 2020-03-14 15:56 | XMS REPORT | Summary of Care ---
:1950 Author Organization [facility] - [facility] Address [address] [place] [address] Care Team Providers Name Role Phone MD Mu Primary Care Provider Reason for Visit Reason Comments Forms Encounter Details Date Type Department Care Team Description 02/05/2020 Telephone [facility] Family Medicine Juma Li MD Forms - [address] [place] [facility] [place] [address] [place] [address] [phone] Allergies Active Allergy Reactions Severity Noted Date Comments Metoclopramide Hcl Rash 06/03/2012 documented as of this encounter (statuses as of 02/05/2020) Medications Medication Sig Dispensed Refills Start Date End Date Status ipratropium (ATROVENT) 0 04/15/2012 Active 0.03 % nasal sprayIndications: Type II or unspecified type diabetes mellitus without mention of complication, uncontrolled azelastine 137 mcg Use 1 [place] in 30 mL 5 11/03/2018 Active (0.1 [...] reflux disease, esophagitis presence not specified LOVAZA, gbdve-0-uufd TAKE 4 CAPSULES 360 capsule 1 05/06/2019 [...] compli cations 06/03/2012 Overview: ICD10 Diagnosis Term Fish Net Maker Utility Essential hypertension, benign 06/03/2012 HLD (hyperlipidemia) [...] Pike - 02/05/2020 11:51 AM CDTEileaishwarya with [facility] is requesting the orders back on September 23, 2019 refaxed due to only recei ving 3 pages. If you have any further questions or concerns please contact Elizabeth at [phone]. [id number] signed by Lucia Pike at 02/05/2020 11:54 [...] ype Group Dates MEDICARE MEDICARE PART A [id number] 2013-Pres [phone] [address] Medicare & B ent 82 [id number] MAL[place] COOPER [id number] EQUITABLE EQUITABLE [id number] 2017-Yovani spence documented as of this encounter Advance Directives Type Date Recorded Patient Band Ripsaw Operator Explanati on Advance Directives and Living Will Power of Fulfillment Associate
--- OUTSIDE RECORDS SUMMARY | 2020-03-14 15:56 | XMS REPORT | Summary of Care ---
:1950 Author Organization [facility] - Health Address [address] [place] [address] Care Team Providers Name Role Phone MD Mu Primary Care Provider Encounter Details Date Type Department Care Team Description 01/21/2020 Orders Only [facility] Doctor Unassigned, No [address] [facility] [place] [address] [place] [address] Allergies Active Allergy Reactions Severity Noted Date Comments Metoclopramide Hcl Rash 06/03/2012 documented as of this encounter (statuses as of 02/08/2020) Medications Medication Sig Dispensed Refills Start Date End Date Status ipratropium (ATROVENT) 0 04/15/2012 Active 0.03 % nasal sprayIndications: Type II or unspecified type diabetes mellitus without mention of complication, uncontrolled azelastine 137 mcg Use 1 [place] in 30 mL 5 11/03/2018 Active (0.1 [...] reflux disease, esophagitis presence not specified LOVAZA, phrik-1-idph TAKE 4 CAPSULES 360 capsule 1 05/06/2019 [...] compli cations 06/03/2012 Overview: ICD10 Diagnosis Term Primer Inserting Machine Adjuster Utility Essential hypertension, benign 06/03/2012 HLD (hyperlipidemia) [...] ype Group Dates MEDICARE MEDICARE PART A [id number] 2013-Pres [phone] [address] Medicare & B ent 82 [id number] MALA COOPER [id number] EQUITABLE EQUITABLE [id number] 2017-Yovani spence documented as of this encounter Advance Directives Type Date Recorded Patient Carbonizer Tester Explanati on Advance Directives and Living Will Power of Restaurant Bartender
--- OUTSIDE RECORDS SUMMARY | 2020-03-14 15:56 | XMS REPORT | Summary of Care ---
:1950 Author Organization [facility] Address [address] [place] [address] Care Team Providers Name Role Phone MD Mu Primary Care Provider Reason for Visit Reason Comments LAB WORK Encounter Details Date Type Department Care Team Description 01/29/2020 Grain Unloader Machine Visit [facility] Family Varsha Dobbins MD [address] [place] [address] Type 2 diabetes Medicine - [facility], Adc Fam Pob I mellitus without [address] [facility] complicati on, Drive unspecified whether [place] [address] use [phone] Allergies Active Allergy Reactions Severity Noted Date Comments Metoclopramide Hcl Rash 06/03/2012 documented as of this encounter (statuses as of 01/29/2020) Medications Medication Sig Dispensed Refills Start Date End Date Status ipratropium (ATROVENT) 0 04/15/2012 Active 0.03 % nasal sprayIndications: Type II or unspecified type diabetes mellitus without mention of complication, uncontrolled azelastine 137 mcg Use 1 [place] in 30 mL 5 11/03/2018 Active (0.1 [...] reflux disease, esophagitis presence not specified LOVAZA, vqgyn-0-gsun TAKE 4 CAPSULES 360 capsule 1 05/06/2019 [...] compli cations 06/03/2012 Overview: ICD10 Diagnosis Term Database Design Analyst Utility Essential hypertension, benign 06/03/2012 HLD (hyperlipidemia) [...] processed according to instructions and sent to [facility] laboratories per lab order on TODAY: [...] diabetes mellitus without complic ation, unspecified whether manager long term care insulin use documented in this encounter Insurance Payer Benefit Plan / Subscriber ID Effective Phone Address T ype Group Dates MEDICARE MEDICARE PART A [id number] 2013-Pres [phone] [address] Medicare & B [facility] 82 [id number] MALA COOPER [id number] EQUITABLE EQUITABLE [id number] 2017-Yovani spence documented as of this encounter Advance Directives Type Date Recorded Patient Finisher Card Tender Explanati on Advance Directives and Living Will Power of Oil Well Gun Perforator Operator
--- OUTSIDE RECORDS SUMMARY | 2020-03-14 15:57 | XMS REPORT | Summary of Care ---
:1950 Author Organization [facility] Address [address] [place] [id number] Care Team Providers Name Role Phone MD Mu Primary Care Provider Reason for Visit Reason Comments Refill Request Encounter Details Date Type Department Care Team Description 02/22/2020 Refill [facility] Family Medicine Juma Li MD Refill Request - [address] [place] [address] [place] [address] [phone] Allergies Active Allergy Reactions Severity Noted Date Comments Metoclopramide Hcl Rash 06/03/2012 documented as of this encounter (statuses as of 02/22/2020) Medications Medication Sig Dispensed Refills Start End Status Date Date ipratropium 0 Active (ATROVENT) 0.03 % 2 nasal sprayIndications: Type II or unspecified type diabetes mellitus without mention of complication, uncontrolled azelastine 137 mcg Use 1 [place] in 30 mL 5 Active (0.1 %) [...] (six) hours as needed for Itching. LOVAZA, [id number] TAKE 4 360 capsule 1 Active ethyl esters, 1 gram CAPSULES BY 0 capsuleIndications: MOUTH EVERY Other hyperlipidemia DAY LOVAZA, [id number] TAKE 4 360 capsule 1 Discontinued ethyl esters, 1 gram CAPSULES BY 0 020 (Reorder) capsuleIndications: MOUTH EVERY Other hyperlipidemia DAY documented as of this encounter (statuses as of 02/22/2020) Active Problems Problem Noted Date Stage 2 chronic kidney disease 05/27/2019 Diabetes mellitus type 2, uncontrolled, without compli cations 06/03/2012 Overview: ICD10 Diagnosis Term Baker Pie Utility Essential hypertension, benign 06/03/2012 HLD (hyperlipidemia) [...] ype Group Dates MEDICARE MEDICARE PART A [id number] 2013-Pres [phone] Medicare & B ent [id number] [place]OPER [id number] EQUITABLE EQUITABLE [id number] 2017-Yovani spence documented as of this encounter Advance Directives Type Date Recorded Patient Suspect Artist Supervisor Explanati on Advance Directives and Living Will Power of Human Resource Consultant
--- OUTSIDE RECORDS SUMMARY | 2020-03-14 15:57 | XMS REPORT | Summary of Care ---
:1950 Author Organization [facility] Address [address] [place] [address] Care Team Providers Name Role Phone MD Mu Primary Care Provider Encounter Details Date Type Department Care Team Description 02/12/2020 Orders Only [facility] Doctor Unassigned, No [address] [facility] [place] [address] [address] [place] [address] Allergies Active Allergy Reactions Severity Noted Date Comments Metoclopramide Hcl Rash 06/03/2012 documented as of this encounter (statuses as of 03/03/2020) Medications Medication Sig Dispensed Refills Start Date End Date Status ipratropium (ATROVENT) 0 04/15/2012 Active 0.03 % nasal sprayIndications: Type II or unspecified type diabetes mellitus without mention of complication, uncontrolled azelastine 137 mcg (0.1 Use 1 [place] in 30 mL 5 11/03/2018 Active %) nasal each nostril 2 sprayIndications: (two) times Allergic rhinitis, daily. 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 benign etodolac 500 mg Take 1 tablet by 180 tablet 1 05/06/2019 Active tabletIndications: mouth 2 (two) Arthritis times daily. ondansetron (ZOFRAN) 4 Take 1 tablet by 30 tablet 1 05/06/2019 Active mg tabletIndications: mouth every 8 Gastroesophageal reflux (eight) hours as disease, esophagitis needed for presence not specified Nausea and Vomiting (N/V). ONETOUCH ULTRA2 METER Use as [...] both eyes 2 solutionIndications: (two) times Allergic conjunctivitis daily. of both eyes hydrOXYzine 25 mg Take 1 tablet by 30 tablet 0 01/25/2020 Active tabletIndications: mouth every 6 Itchy skin (six) hours as needed for Itching. documented as of this encounter (statuses as of 03/03/2020) Active Problems Problem Noted Date Stage 2 chronic kidney disease 05/27/2019 Diabetes mellitus type 2, uncontrolled, without compli cations 06/03/2012 Overview: ICD10 Diagnosis Term Curator Of Photography And Prints Utility Essential hypertension, benign 06/03/2012 HLD (hyperlipidemia) 06/03/2012 documented as of this encounter (statuses as of 03/03/2020) Immunizations Name Administration Dates Next Due Pneumococcal [...] filedocumented in this encounter Plan of Treatment Date Type Specialty Care Team Description 03/07/2020 Office Visit Family Medicine Juma Dobbins MD [address] [place] [address] [phone] Health Maintenance Due Date Last Done Comments [...] Comme nts HOME HEALTH - OTHER Routine 02/12/2020 12:01 AM CDT documented in this encounter Results Not on filedocumented in this encounter Insurance Payer Benefit Plan / Subscriber ID Effective Phone Address T ype Group Dates MEDICARE MEDICARE PART A [id number] 2013-Pres [phone] [address] [facility] Medicare & B ent [id number] MALA COOPER [id number] EQUITABLE EQUITABLE [id number] 2017-Yovani spence documented as of this encounter Advance Directives Type Date Recorded Patient Division Head Explanati on Advance Directives and Living Will Power of Assistant Technician
[2020-03-14] MEDS ORDERED: MORPHINE 4 MG/ML SYR ONE (16:31)
[2020-03-14] MEDS ORDERED: ONDANSETRON 4 MG/2 ML VIAL ONE (16:31)
[2020-03-14] MEDS ORDERED: LIDOCAINE 4% PATCH ONE (16:31)
--- NOTE | 2020-03-14 17:10 | RAD REPORT ---
EXAM DESCRIPTION: CT - Stone Protocol - 03/14/2020 4:55 pm CLINICAL HISTORY: Flank pain. low back pain COMPARISON: Abdomen Pelvis Wo Contrast dated 12/04/2018 TECHNIQUE: Axial images were obtained without oral or IV contrast. Lack of contrast limits solid org an and vascular assessment. The [id number] spans the entirety of the system partially obscuring uppermost abdomen and lung bases. Coronal reformatted images were obtained and reviewed. All CT scans are performed using dose optimization technique as appropriate and may include automated exposure control or mA/KV adjustment according to patient size. FINDINGS: Poorly defined interstitial lung opacities are present in the left lung base. No pulmonary nodule or mass. Small hiatal hernia. Imaged portions of the liver and spleen show no suspicious findings on non-contrast imaging. The panc reas and adrenal glands are normal. No pathologic lymphadenopathy in the abdomen or pelvis. The right kidney is mildly enlarged in size. 5-6 mm stone is present inferior calyx right kidney. The left kidney is surgically absent. Prostate gland is moderately enlarged. Moderate fat containing rig ht inguinal hernia. No bowel obstruction, free air, free fluid or abscess. The appendix is not identified as a discrete s tructure, however, no secondary findings of appendicitis are identified. Hardware is present in the right iliac bone. IMPRESSION: 5-6 mm calculus is present in the inferior right kidney without hydronephrosis. The left kidney is surgically absent. Moderate enlargement of prostate gland is seen.
[2020-03-14 18:23] LABS: Urine Bacteria <20 /HPF (NONE SEEN); Urine Culture Reflex Order NOT NEEDED; Urine Mucus 1+ /HPF (NONE SEEN); Urine RBC <5 /HPF (NONE SEEN)
[2020-03-14 18:23] LABS: Urine Blood TRACE (NEG); Urine Glucose NEGATIVE (NEG); Urine Protein 1+ (NEG); Urine pH 5.5 (5.0-7.0)
[2020-03-14] MEDS ORDERED: DIAZEPAM 10 MG/2 ML INJ SYRINGE ONE (18:34)
--- NOTE | 2020-03-14 19:03 | EDPHYS ---
Physician Documentation [facility] Name: Shivam Sykes Age: 70 yrs Sex: Male : 1950 Arrival Date: 03/14/2020 Time: 15:52 Bed 19 Private MD: ED Physician Gianni Corcoran HPI: 03/14 16:09 This 70 yrs old Male presents to ER via EMS with complaints of Back Pain. pm1 16:09 The patient presents with pain that is chronic, with no known mechanism of injury. The pm1 symptoms are located in the low back. Onset: The symptoms/episode began/occurred today. The pain radiates to the right leg and left leg. Associated signs and symptoms: Pertinent negatives: abdominal pain, chest pain, dysuria, fever, incontinence. Modifying factors: The patient symptoms are alleviated by remaining still, the patient symptoms are aggravated by movement. Severity of symptoms: in the emergency department the symptoms are actually worse. The patient has experienced similar episodes in the past, multiple times. Historical: - Allergies: 16:00 No Known Allergies; em - Home Meds: 18:13 tamsulosin 0.4 mg oral cp24 [Active]; amlodipine oral [Active]; Lisinopril Oral em [Active]; Metoprolol Tartrate Oral [Active]; Metformin Oral [Active]; Aspirin Oral [Active]; doxazosin oral oral [Active]; atorvastatin oral oral [Active]; - PMHx: 16:00 Diabetes - IDDM; Hypertension; cancer, kidney; CVA; em - PSHx: 16:00 2000; em - Immunization history:: Adult Immunizations up to date. - Social history:: Smoking status: Patient denies any tobacco usage or history of. ROS: 16:09 Constitutional: Negative for fever, chills, and weight loss, Neck: Negative for injury, pm1 pain, and swelling, Cardiovascular: Negative for chest pain, palpitations, and edema, Respiratory: Negative for shortness of breath, cough, wheezing, and pleuritic chest pain, Abdomen/GI: Negative for abdominal pain, nausea, vomiting, diarrhea, and constipation. 16:09 : Negative for injury, bleeding, discharge, and swelling, MS/Extremity: Negative for injury and deformity, Skin: Negative for injury, rash, and discoloration. 16:09 Back: Positive for of the low back area, pain. 16:09 Neuro: Negative for numbness, tingling, weakness. Exam: 16:09 Constitutional: This is a well developed, well nourished patient who is awake, alert, pm1 and in no acute distress. Head/Face: Normocephalic, atraumatic. 16:09 Skin: Warm, dry with normal turgor. Normal color with no rashes, no lesions, and no evidence of cellulitis. MS/ Extremity: Pulses equal, no cyanosis. Neurovascular intact. Full, normal range of motion. 16:09 Cardiovascular: Exam negative for acute changes, Rate: normal, Rhythm: regular, Pulses: no pulse deficits are appreciated. 16:09 Respiratory: Exam negative for acute changes, respiratory distress, shortness of breath. 16:09 Abdomen/GI: Exam negative for acute changes, Inspection: obese Palpation: abdomen is soft and non-tender, in all quadrants. 16:09 Back: vertebral tenderness, is not appreciated, muscle spasm, is appreciated in the left low back and right low back. 16:09 Neuro: Exam negative for acute changes, Orientation: is normal, Mentation: is normal, Motor: is normal, moves all fours. Vital Signs: 15:53 BP 166 / 75; Pulse 87; Resp 18; Temp 97.4; Pulse Ox 99% on R/A; Weight 111.13 kg; em Height 5 ft. 11 in. (180.34 cm); Pain 5/10; 17:00 BP 156 / 65; Pulse 64; Resp 18; Pulse Ox 97% on R/A; em 18:00 BP 118 / 105; Pulse 64; Resp 18; Pulse Ox 98% on R/A; em 19:15 BP 161 / 74; Pulse 83; Resp 18; Pulse Ox 97% on R/A; wh 15:53 Body Mass Index 34.17 (111.13 kg, 180.34 cm) em MDM: 16:01 Patient medically screened. pm1 17:25 Data reviewed: vital signs. Data interpreted: Pulse oximetry: on room air is 99 %. pm1 Interpretation: normal. 19:02 Counseling: I had a detailed discussion with the patient and/or guardian regarding: the pm1 historical points, exam findings, and any diagnostic results supporting the discharge/admit diagnosis, lab results, radiology results, the need for outpatient follow up, to return to the emergency department if symptoms worsen or persist or if there are any questions or concerns that arise at home. 19:56 ED course: Pain improved with Valium. Patient was able to stand up from bed and pm1 transfer to wheelchair for discharge. 03/14 16:01 Order name: Urine Microscopic Only; Complete Time: 18:35 pm1 03/14 18:10 Order name: Urine Dipstick--Ancillary (enter results); Complete Time: 18:35 bd 03/14 16:01 Order name: CT Stone Protocol; Complete Time: 17:21 pm1 03/14 16:01 Order name: Urine Dipstick-Ancillary (obtain specimen); Complete Time: 18:08 pm1 Administered Medications: 16:24 Drug: Lidoderm 5 % (700 mg/patch) 1 patches {Note: applied to lower back.} Route: em Topical; Site: affected area; 18:18 Follow up: Response: No adverse reaction em 16:25 Drug: Zofran (Ondansetron) 4 mg Route: IVP; Site: left antecubital; em 18:18 Follow up: Response: No adverse reaction em 16:27 Drug: morphine 4 mg Route: IVP; Site: left antecubital; em 18:19 Follow up: Response: No adverse reaction; Marked relief of symptoms; Pain is decreased; em RASS: Alert and Calm (0) 18:27 Drug: Valium 5 mg Route: IVP; Site: left antecubital; em 19:25 Follow up: Response: No adverse reaction; Marked relief of symptoms; Pain is decreased; wh RASS: Alert and Calm (0) Disposition: 03/14/20 19:02 Discharged to Home. Impression: Low back pain, Muscle spasm of back. - Condition is Stable. - Discharge Instructions: Back Pain, Adult, Muscle Cramps and Spasms, Back Injury Prevention, Subi-sr-[place]. - Prescriptions for Valium 5 mg Oral Tablet - take 1 tablet by ORAL route every 8 hours As needed; 10 tablet. - Medication Reconciliation Form, Thank You Letter, Antibiotic Education, Prescription Opioid Use form. - Follow up: Emergency Department; When: As needed; Reason: Worsening of condition. Follow up: Private Physician; When: 2 - 3 days; Reason: Recheck today's complaints, Continuance of care, Re-evaluation by your physician. - Problem is new. - Symptoms have improved. Addendum: 03/16/2020 18:53 Co-signature as Attending Physician, Gianni Corcoran MD. r n Signatures: Dispatcher [employer] Chetan Hwang, RN Gianni Hoffmann MD MD rn Marinas, Patrick, DIRECTOR OF ELEMENTARY EDUCATION DIRECTOR OF ELEMENTARY EDUCATION pm1 Konrad Garcia Corrections: (The following items were deleted from the chart) 03/14 19:26 19:02 03/14/2020 19:02 Discharged to Home. Impression: Low back pain; Muscle spasm of wh back. Condition is Stable. Forms are Medication Reconciliation Form, Thank You Letter, Antibiotic Education, Prescription Opioid Use. Follow up: Emergency Department; When: As needed; Reason: Worsening of condition. Follow up: Private Physician; When: 2 - 3 days; Reason: Recheck today's complaints, Continuance of care, Re-evaluation by your physician. Problem is new. Symptoms have improved. pm1
--- NOTE | 2020-03-14 19:03 | ER ---
Nurse's Notes [facility] Name: Shivam Sykes Age: 70 yrs Sex: Male : 1950 Arrival Date: 03/14/2020 Time: 15:52 Bed 19 Private MD: Diagnosis: Low back pain;Muscle spasm of back Presentation: 03/14 15:53 Chief complaint: EMS states: low back pain that radiates into ginna. legs, hx of kidney em cancer. Coronavirus screen: Client denies travel out of the [place] in the last 14 days. Ebola Screen: Patient negative for fever greater than or equal to 101.5 degrees Fahrenheit, and additional compatible Ebola Virus Disease symptoms Patient denies exposure to infectious person. Patient denies travel to an Ebola-affected area in the 21 days before illness onset. No symptoms or risks identified at this time. Initial Sepsis Screen: Does the patient meet any 2 criteria? No. Patient's initial sepsis screen is negative. Does the patient have a suspected source of infection? No. Patient's initial sepsis screen is negative. Risk Assessment: Do you want to hurt yourself or someone else? Patient reports no desire to harm self or others. Onset of symptoms was March 14, 2020. 15:53 Method Of Arrival: EMS: [facility] em 15:53 Acuity: JIMBO 3 em Historical: - Allergies: 16:00 No Known Allergies; em - Home Meds: 18:13 tamsulosin 0.4 mg oral cp24 [Active]; amlodipine oral [Active]; Lisinopril Oral em [Active]; Metoprolol Tartrate Oral [Active]; Metformin Oral [Active]; Aspirin Oral [Active]; doxazosin oral oral [Active]; atorvastatin oral oral [Active]; - PMHx: 16:00 Diabetes - IDDM; Hypertension; cancer, kidney; CVA; em - PSHx: 16:00 2000; em - Immunization history:: Adult Immunizations up to date. - Social history:: Smoking status: Patient denies any tobacco usage or history of. Screenin:01 Abuse screen: Denies threats or abuse. Nutritional screening: No deficits noted. em Tuberculosis screening:. Fall Risk None identified. Assessment: 15:53 General: Appears in no apparent distress. uncomfortable, Behavior is calm, cooperative, em appropriate for age. Pain: Complains of pain in lumbar area Pain radiates to right leg and left leg Pain currently is 5 out of 10 on a pain scale. at worst was 10 out of 10 on a pain scale. Neuro: Level of Consciousness is awake, alert, obeys commands, Oriented to person, place, time, situation. Cardiovascular: Capillary refill < 3 seconds Patient's skin is warm and dry. Respiratory: Airway is patent Respiratory effort is even, unlabored, Respiratory pattern is regular, symmetrical. Derm: Skin is intact, is healthy with good turgor, Skin is pink, warm \T\ dry. Musculoskeletal: Capillary refill < 3 seconds, Range of motion: intact in all extremities. 17:00 Reassessment: Patient appears in no apparent distress at this time. Patient and/or em family updated on plan of care and expected duration. Pain level reassessed. Patient is alert, oriented x 3, equal unlabored respirations, skin warm/dry/pink. 18:00 Reassessment: Patient appears in no apparent distress at this time. Patient and/or em family updated on plan of care and expected duration. Pain level reassessed. Patient is alert, oriented x 3, equal unlabored respirations, skin warm/dry/pink. 19:10 Reassessment: Patient appears in no apparent distress at this time. Patient and/or wh family updated on plan of care and expected duration. Pain level reassessed. Patient is alert, oriented x 3, equal unlabored respirations, skin warm/dry/pink. Patient states feeling better. Patient states symptoms have improved. Vital Signs: 15:53 BP 166 / 75; Pulse 87; Resp 18; Temp 97.4; Pulse Ox 99% on R/A; Weight 111.13 kg; em Height 5 ft. 11 in. (180.34 cm); Pain 5/10; 17:00 BP 156 / 65; Pulse 64; Resp 18; Pulse Ox 97% on R/A; em 18:00 BP 118 / 105; Pulse 64; Resp 18; Pulse Ox 98% on R/A; em 19:15 BP 161 / 74; Pulse 83; Resp 18; Pulse Ox 97% on R/A; wh 15:53 Body Mass Index 34.17 (111.13 kg, 180.34 cm) em ED Course: 15:52 Patient arrived in ED. em 15:54 Triage completed. em 15:57 Dillon Morin, SHANTEL is PHCP. pm1 15:57 Gianni Corcoran MD is Attending Physician. pm1 15:59 Chetan Severino, DAVID is Primary Nurse. em 16:00 Arm band placed on. em 16:01 Patient has correct armband on for positive identification. Bed in low position. Call em light in reach. Pulse ox on. NIBP on. 16:01 Maintain EMS IV. Dressing intact. Good blood return noted. Site clean \T\ dry. Gauge \T\ em site: 20 L AC. 16:55 CT Stone Protocol In Process Unspecified. EDMS 18:08 Urine collected: clean catch specimen, clear. 3 18:08 Urine Microscopic Only Sent. 3 19:25 No provider procedures requiring assistance completed. IV discontinued, intact, wh bleeding controlled, No redness/swelling at site. Administered Medications: 16:24 Drug: Lidoderm 5 % (700 mg/patch) 1 patches {Note: applied to lower back.} Route: em Topical; Site: affected area; 18:18 Follow up: Response: No adverse reaction em 16:25 Drug: Zofran (Ondansetron) 4 mg Route: IVP; Site: left antecubital; em 18:18 Follow up: Response: No adverse reaction em 16:27 Drug: morphine 4 mg Route: IVP; Site: left antecubital; em 18:19 Follow up: Response: No adverse reaction; Marked relief of symptoms; Pain is decreased; em RASS: Alert and Calm (0) 18:27 Drug: Valium 5 mg Route: IVP; Site: left antecubital; em 19:25 Follow up: Response: No adverse reaction; Marked relief of symptoms; Pain is decreased; RASS: Alert and Calm (0) Outcome: 19:02 Discharge ordered by MD. pm1 19:25 Discharged to home via wheelchair, with family. 19:25 Condition: stable 19:25 Discharge instructions given to patient, Instructed on discharge instructions, follow up and referral plans. no drinking with medication, no driving heavy equipment, medication usage, POC Demonstrated understanding of instructions, follow-up care, medications, POC Prescriptions given X 1. 19:26 Patient left the ED. wh Signatures: Dispatcher [employer] [facility] Chetan Severino RN RN em Dillon Morin, DIRECTOR OF REHABILITATION AND WELLNESS DIRECTOR OF REHABILITATION AND WELLNESS pm1 Radha Mclaughlin dh3 Konrad Garcia
[2020-03-14 23:57] VITALS: TEMP 97.4
[2020-03-14 23:59] VITALS: O2SAT 97
[2020-03-15 00:27] VITALS: BP 161/74
== END 2020-03-14 19:26 | disposition home or self-care (01) ==
LOC: ER 15:48
DX: M62.830 Muscle spasm of back (principal); I10 Essential (primary) hypertension; E11.9 Type 2 diabetes mellitus without complications; Z79.82 Long term (current) use of aspirin; Z85.528 Personal history of other malignant neoplasm of kidney
CPT/HCPCS: 76377; 74176; 96375; 96374; 99284; J3360; J2405; 81003; 81015

== ENCOUNTER 2023-01-30 13:45 | Emergency (ER) | payer OTHER ==
[2023-01-30 14:26] LABS: Absolute Lymphocytes (CBC) 1.5 K/uL (0.7-4.9); Hematocrit 37.6 % (39.6-49.0); Lymphocytes % 38.1 % (15.3-44.8); MPV 7.7 fL (7.6-11.3); Platelets 145 thou/uL (152-406); RBC Red Blood Cell Count 4.09 M/uL (4.33-5.43)
[2023-01-30 14:28] LABS: Protime INR 0.99
[2023-01-30] MEDS ORDERED: NA CHLORIDE 0.9% 1,000 ML ONE ×2 (14:34→15:07)
--- OUTSIDE RECORDS SUMMARY | 2023-01-30 14:38 | XMS REPORT | Continuity of Care Document ---
:1950 Author Organization [facility] t Address [address] [place] [address] Care Team Providers Name Role Phone Juma Dobbins MD Primary Care Physician Iram Rao Anavella Attending Clinician Unava ilable [id number] Attending Clinician Unavailable NATALYA TOM Attending Clinician Unavailable Vandana RN, Sanjeev García Attending Clinician Unavailable Juma Dobbins MD Attending Clinician Giselle ROONEY, Abdiaziz Attending Clinician Vaishali ROONEY, Natalya Alberto Attending Clinician MIGUEL BAXTER Attending Clinician Unavailable Antelmo COLOR MAKER, Miguel Conn Attending Clinician Doctor Unassigned, [place] Attending Clinician Unavailable JUMA DOBBINS Attending Clinician Unavailable [facility], [facility] Endocrine Attending Clinician Cory ROONEY, Essence Leonard Attending Clinician Manuel ROONEY, Oriana Lopez H Attending Clinician Cristal ROONEY, Marleny Lepe Attending Clinician Rama ROONEY, Felicia Attending Clinician FELICIA SHEPARD Attending Clinician Unavailable MARLENY SANCHEZ Attending Clinician Unavailable Dominick HERNANDEZ, Crista Attending Clinician Unavailable ABDIAZIZ DESAI Attending Clinician Unavailable Bow Machine Operator, [facility] Staff Attending Clinician Unavailable Lab, Ang - Db Attending Clinician Unavailable Therapy, Adc Covid Infusion Attending Clinician Unavailable Larry Thomas MD Attending Clinician LARRY THOMAS Attending Clinician Unavailable Salena Benitez MD Attending Clinician MAGDA MENSAH Attending Clinician Unavailable Dejah Pimentel Attending Clinician SHERIF JIANG Attending Clinician Unavailable CAIO MCDUFFIE Attending Clinician Unavailable CARLOZ HATCH Attending Clinician Unavailable Nurse, [facility] Surgery Gu Attending Clinician Unavailable Carloz Hatch MD Attending Clinician Fifi REPAIR WEAVERVeronica Weems Attending Clinician , Ct Room Attending Clinician Unavailable VERONICA CALIX Attending Clinician Unavailable DEJAH LAZARO Attending Clinician Unavailable MIQUEL GARCIA Attending Clinician Unavailable Provider, [facility] Attending Clinician Unavailable Lab, Adc Fam Pob I Attending Clinician Unavailable Miquel Garcia DO Attending Clinician Clifton BURN OUT TENDER LACETahira AGUIRRE Attending Clinician Sherif Jiang MD Attending Clinician Ella Nolan Attending Clinician KYLE BENÍTEZ Attending Clinician Unavailable Lu Gibbosn Attending Clinician 2, Adc Lab Attending Clinician Unavailable Med, Medicare Wellness Ang Fam Attending Clinician Unavailab DONALD Abdul Attending Clinician Unavailable CORNELIA JIMENES Attending Clinician Unavailable ALYCIA BARNEY Attending Clinician Unavailable Willow Rao Anasuzan Admitting Clinician Unavailable [id number] Admitting Clinician Unavailable ORIANA GUERRERO IN H Admitting Clinician Unavailable SANTINO MONTE Admitting Clinician Unavailable NATALYA TOM Admitting Clinician Unavailable DONALD ESCOTO Admitting Clinician Unavailable CORNEILA JIMENES Admitting Clinician Unavailable ALYCIA BARNEY Admitting Clinician Unavailable Payers Payer Name Policy Type Policy Number Effective Date Expiration Date S nupur [facility] [id number] MEDICARE PART A [id number] 2013 \\T\\ B 00:00[id number] 2017 00:00:00 MEDICARE A B [id number] 2013 00:00:00 GENERIC MEDICARE [id number] 2017 SUPPLEMENT 00:00:00 [facility] [id number] 2015 2018 PPO 00:00:00 00:00:00 Problems Condition Condition Condition Status Onset Resolution Last Treating Co mments Source Name Details Category Date Date Treatment Clinician Date Hyperglyce Hyperglyce Disease Recurre [facility] b[facility]nu due to bishnu due to nce 6-02 [facility] diabetes diabetes 00:00: Medica l mellitus mellitus 00 Center Type 2 Type 2 Disease Active 2021-04 [facility] diabetes diabetes 1-23 ity of mellitus mellitus 00:00: [place] without without 00 Medical complicati complicati Br anch on, with on, with long-term long-term current current use of use of insulin insulin Transient Transient Disease Active 2019-[address] [facility] ischemic ischemic 0-30 [facility] attack, attack, 00:00: Medical acute acute 00 Center Stage 2 Stage 2 Disease Active [facility] 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 00:00: [place] disease disease 00 Medical Branch Renal mass Renal mass Disease Active [facility] 00:[facility]: Medical 00 Center DM DM Disease Recurre [facility] (diabetes (diabetes nce 4-17 [facility] mellitus), mellitus), 00:00: Me dical type 2 type 2 00 Center Essential Essential Disease Active [facility] hypertensi hypertensi 4-17 [facility] on on 00:00: Medical 00 Center ROSARIO ROSARIO Disease Active [facility] (obstructi (obstructi 4-17 [facility] ve sleep ve sleep 00:00: Medica l apnea) apnea) 00 Center Anemia Anemia Disease Active [facility] 00:[facility]: Medical 00 Center Preop Preop Disease Active [facility] cardiovasc cardiovasc 4-16 st ular exam ular exam 00:00: Hosp marianne 00 l 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 00 Center Pelvic Pelvic Disease Active [facility] mass mass 4-16 [facility] 00:00: Medical 00 Center 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 4-09 [facility] carcinoma carcinoma 00:00: Medi fatemeh 00 Center Pathologic Pathologic Disease Active [facility] fracture fracture 4-09 [facility] of right of right 00:00: Medica l acetabulum acetabulum 00 Ce nter Mass of Mass of Disease Active [facility] soft soft 3-27 st tissue of tissue of 00:00: Hosp marianne right right 00 l lower lower extremity extremity Pain of Pain of Disease Active [facility] right hip right hip 3-26 [facility] joint joint 00:00: Medical 00 Center 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 00:00: Hospita involving involving 00 l [place] heart with heart with angina angina pectoris pectoris Abnormal Abnormal Disease Active [facility] EKG EKG 1-12 st 00:00: Hospita 00 l SOB SOB Disease Active [facility] (shortness (shortness 1-12 st of breath) of breath) 00:00: Ho spita 00 l Benign Benign Disease Active [facility] essential essential 2-05 st hypertensi hypertensi 00:00: Ho spita on on 00 l Diabetes Diabetes Disease Active Overview: Me monika mellitus mellitus 2-[address] type 2, type 2, 00:00: g of this Hospi ta uncontroll uncontroll 00 note l ed, ed, might be without without different complicati complicati from the ons ons original. Overview: ICD10 Diagnosis Term Point Of Care Specialist Utility HLD HLD Disease Active [facility] (hyperlipi (hyperlipi 2-05 st demia) demia) 00:00: Hospita 00 l Allergies, Adverse Reactions, Alerts Allergy Allergy Status Severity Reaction(s) Onset Inactive Treating Comm ents Source Name Type Date Date Clinician METOCLOP DRUG Active Rash Univers RAMIDE INGREDI 2-05 ity of HCL 00:00: [address] Metoclop Propensi Active Rash [facility] ramide ty to 2-05 [facility] Hcl adverse 00:00: Medical reaction 00 Center s METOCLOP Allergy Active High Rash [facility] RAMIDE 2-05 [facility] HCL 00:00: Medical 00 Center Metoclop Propensi Active Rash Method i ramide ty to 2-05 st Hcl adverse 00:00: Hospita reaction 00 l s to drug NO KNOWN Allergy Active [facility] Family History Family Member Diagnosis Comments Start Date Stop Date Source Natural brother Coronary artery Meth odist [facility] disease Natural brother Diabetes [facility] Natural mother Coronary artery [facility] disease Social History Social Habit Start Date Stop Date Quantity Comments Source History of tobacco Cigarette Smoker [facility] use Medical Center History [facility] Gender identity [facility] Sexual orientation [facility] Alcohol intake 2022-12-21 2022-12-21 [facility]00 of alcohol Medical Center (finding) History SDOH 2022-09-29 2022-09-[address] [facility] Transport Med 00:00:00 00:00:[address] History [place] 2022-09-29 2022-09-[address] [facility] Housing Unable to 00:00:00 00:00:00 Medical Center Pay History [facility] 2022-09-29 2022-09-[address] [facility] Housing Places 00:00:00 00:00:00 Medical Ce nter Lived History [facility] 2022-09-29 2022-09-[address] [facility] Housing Homeless 00:00:00 00:00:00 Medical Center Last Year Exposure to 2022-09-18 2022-09-[address] [facility] SARS-CoV-2 (event) 00:00:00 14:42:00 Medica l Center Tobacco use and 2022-09-28 2022-09-[address] [facility]ne kes exposure 00:00:00 00:00:00 tobacco non-user Medical Center Tobacco Comment 2022-01-08 2022-01-08 quit 1988 [facility] of 00:00:00 00:00:00 [facility] Alcohol Comment 2020-02-26 2020-02-26 some nights [facility] 00:[facility]:00 the week Medical Center History of Social 2019-08-14 2019-08-[address] function 00:00:00 00:00:00 Hospital History [facility] 2018-08-11 2018-08-11 3 [facility] Alcohol Frequency 00:00:00 00:00:00 Hospita l History [facility] 2018-08-11 2018-08-11 1 [facility] Alcohol Std Drinks 00:00:00 00:00:00 Hospit al Cigarettes smoked 2018-08-11 2018-08-[address] current (pack per 00:00:00 00:00:00 Hospita l day) - Reported Cigarette 2018-08-11 2018-08-11 [facility] pack-years 00:00:00 00:00:00 Hospital Sex Assigned At [address] [facility] kes 00:00:00 00:00:00 Medical Center Smoking Status Start Date Stop Date Source Ex-smoker 2022-09-28 00:00:00 2022-09-28 00:00:[address] [facility] [facility] Medications Ordered Filled Start Stop Current Ordering Indication Dosage Frequency Signature Comments Components Source Medication Medication Date Date Medication? Clinician (SIG) Name Name AMLODIPINE 2022-04 Yes [id number] 5mg TAKE 1 Un awilda 5 mg tablet 0-03 TABLET BY ity of 00:00: [facility] DAILY Medical Branch AMLODIPINE 2022-04 Yes [id number] 5mg TAKE 1 Un awilda 5 mg tablet 0-03 TABLET BY ity of 00:00: [facility] DAILY Medical Branch AMLODIPINE 2022-04 Yes [id number] 5mg TAKE 1 Un [facility]ilda 5 mg tablet 0-03 TABLET BY ity of 00:00: [facility] DAILY Medical Branch AMLODIPINE 2022-04 Yes [id number] 5mg TAKE 1 Un awilda 5 mg tablet 0-03 TABLET BY ity of 00:00: [facility] DAILY Medical Branch AMLODIPINE 2022-04 Yes [id number] 5mg TAKE 1 Un awilda 5 mg tablet 0-03 TABLET BY ity of 00:00: [facility] DAILY Medical Branch AMLODIPINE 2022-04 Yes [id number] 5mg TAKE 1 Un awilda 5 mg tablet 0-03 TABLET BY ity of 00:00: [facility] DAILY Medical Branch AMLODIPINE 2022-04 Yes [id number] 5mg TAKE 1 Un [place]ilda 5 mg tablet 0-03 TABLET BY ity of 00:00: [facility] DAILY Medical Branch AMLODIPINE 2022-04 Yes [id number] 5mg TAKE 1 Un awilda 5 mg tablet 0-03 TABLET BY ity of 00:00: [facility] DAILY Medical Branch COLCHICINE, 0 Yes [id number] TAKE 1 Univers GOUT, 0.6 9-20 TABLET BY ity o f mg tablet 00:00: [facility] DAILY Medical Branch DOXAZOSIN 2 2022-0 Yes [id number] TAKE 1 U nivers mg tablet 9-20 TABLET BY ity o f 00:00: [facility] EVERY Medical NIGHT AT Branch BEDTIME ATORVASTATI 2022-0 Yes [id number] 10mg TAKE 1 Univers N 10 mg 9-20 TABLET BY ity of tablet 00:00: [facility] AT [place] BEDTIME Medical Branch TAMSULOSIN 2022-0 Yes [id number] .4mg TAKE 1 Univers 0.4 mg 24 9-20 CAPSULE BY ity of hr capsule 00:00: [facility] DAILY Medical Branch LORATADINE 2022-0 Yes [id number] TAKE 1 U nivers 10 mg 9-20 TABLET BY ity of tablet 00:00: MOUTH [place] DAILY Medical Branch COLCHICINE, Yes [id number] TAKE 1 Univers GOUT, 0.6 9-20 TABLET BY ity o f mg tablet 00:00: [facility] DAILY Medical Branch DOXAZOSIN 2 2022-0 Yes [id number] TAKE 1 U nivers mg tablet 9-20 TABLET BY ity o f 00:00: [facility] EVERY Medical NIGHT AT [place] BEDTIME ATORVASTATI 0 Yes [id number] 10mg TAKE 1 Univers N 10 mg 9-20 TABLET BY ity of tablet 00:00: MOUTH [facility] BEDTIME Medical Branch TAMSULOSIN Yes [id number] .4mg TAKE 1 Univers 0.4 mg 24 9-20 CAPSULE BY ity of hr capsule 00:00: [facility] DAILY Medical Branch LORATADINE Yes [id number] TAKE 1 U nivers 10 mg 9-20 TABLET BY ity of tablet 00:00: [facility] DAILY Medical Branch COLCHICINE, Yes [id number] TAKE 1 Univers GOUT, 0.6 9-20 TABLET BY ity o f mg tablet 00:00: [facility] DAILY Medical Branch DOXAZOSIN 2 2022-0 Yes [id number] TAKE 1 U nivers mg tablet 9-20 TABLET BY ity o f 00:00: [facility] EVERY Medical NIGHT AT [facility] ATORVASTATI 2022-0 Yes [id number] 10mg TAKE 1 Univers N 10 mg 9-20 TABLET BY ity of tablet 00:00: [facility] TAMSULOSIN 2022- Yes [id number] .4mg TAKE 1 Univers 0.4 mg 24 9-20 CAPSULE BY ity of hr capsule 00:00: [facility] DAILY Medical Branch LORATADINE 2022-0 Yes [id number] TAKE 1 U nivers 10 mg 9-20 TABLET BY ity of tablet 00:00: [facility] DAILY Medical Branch COLCHICINE, 2022- Yes [id number] TAKE 1 Univers GOUT, 0.6 9-20 TABLET BY ity o f mg tablet 00:00: [facility] DAILY Medical Branch DOXAZOSIN 2 2022-0 Yes [id number] TAKE 1 U nivers mg tablet 9-20 TABLET BY ity o f 00:00: MOUTH EVERY Medical NIGHT AT Branch BEDTIME ATORVASTATI 0 Yes [id number] 10mg TAKE 1 Univers N 10 mg 9-20 TABLET BY ity of tablet 00:00: MOUTH AT [place] [facility] TAMSULOSIN 0 Yes [id number] .4mg TAKE 1 Univers 0.4 mg 24 9-20 CAPSULE BY ity of hr capsule 00:00: MOUTH DAILY Medical Branch LORATADINE 0 Yes [id number] TAKE 1 U nivers 10 mg 9-20 TABLET BY ity of tablet 00:00: MOUTH DAILY Medical Branch COLCHICINE, Yes [id number] TAKE 1 Univers GOUT, 0.6 9-20 TABLET BY ity o f mg tablet 00:00: MOUTH DAILY Medical Branch DOXAZOSIN 2 0 Yes [id number] TAKE 1 U nivers mg tablet 9-20 TABLET BY ity o f 00:00: MOUTH EVERY Medical NIGHT AT [place] BEDTIME ATORVASTATI Yes [id number] 10mg TAKE 1 Univers N 10 mg 9-20 TABLET BY ity of tablet 00:00: MOUTH AT [place] [facility] Medical Branch TAMSULOSIN Yes [id number] .4mg TAKE 1 Univers 0.4 mg 24 9-20 CAPSULE BY ity of hr capsule 00:00: [facility] DAILY Medical Branch LORATADINE 0 Yes [id number] TAKE 1 U nivers 10 mg 9-20 TABLET BY ity of tablet 00:00: [facility] DAILY Medical Branch COLCHICINE, 2022-0 Yes [id number] TAKE 1 Univers GOUT, 0.6 9-20 TABLET BY ity o f mg tablet 00:00: MOUTH [place] DAILY Medical Branch DOXAZOSIN 2 2022-0 Yes [id number] TAKE 1 U nivers mg tablet 9-20 TABLET BY ity o f 00:00: MOUTH EVERY Medical NIGHT AT [place] BEDTIME ATORVASTATI Yes [id number] 10mg TAKE 1 Univers N 10 mg 9-20 TABLET BY ity of tablet 00:00: [address]TH [address] TAMSULOSIN Yes [id number] .4mg TAKE 1 Univers 0.4 mg 24 9-20 CAPSULE BY ity of hr capsule 00:00: MOUTH DAILY Medical Branch LORATADINE Yes [id number] TAKE 1 U nivers 10 mg 9-20 TABLET BY ity of tablet 00:00: MOUTH DAILY Medical Branch COLCHICINE, Yes [id number] TAKE 1 Univers GOUT, 0.6 9-20 TABLET BY ity o f mg tablet 00:00: [facility] DAILY Medical Branch DOXAZOSIN 2 0 Yes [id number] TAKE 1 U nivers mg tablet 9-20 TABLET BY ity o f 00:00: MOUTH [place] EVERY Medical NIGHT AT [place] BEDTIME ATORVASTATI Yes [id number] 10mg TAKE 1 Univers N 10 mg 9-20 TABLET BY ity of tablet 00:00: [facility] BEDTIME Medical Branch TAMSULOSIN Yes [id number] .4mg TAKE 1 Univers 0.4 mg 24 9-20 CAPSULE BY ity of hr capsule 00:00: [facility] DAILY Medical Branch LORATADINE Yes [id number] TAKE 1 U nivers 10 mg 9-20 TABLET BY ity of tablet 00:00: [facility] DAILY Medical Branch COLCHICINE, Yes [id number] TAKE 1 Univers GOUT, 0.6 9-20 TABLET BY ity o f mg tablet 00:00: [facility] DAILY Medical Branch DOXAZOSIN 2 Yes [id number] TAKE 1 U nivers mg tablet 9-20 TABLET BY ity o f 00:00: [facility] EVERY Medical NIGHT AT [place] BEDTIME ATORVASTATI Yes [id number] 10mg TAKE 1 Univers N 10 mg 9-20 TABLET BY ity of tablet 00:00: [facility] BEDTIME Medical Branch TAMSULOSIN Yes [id number] .4mg TAKE 1 Univers 0.4 mg 24 9-20 CAPSULE BY ity of hr capsule 00:00: [facility] DAILY Medical Branch LORATADINE Yes [id number] TAKE 1 U nivers 10 mg 9-20 TABLET BY ity of tablet 00:00: [facility] DAILY Medical Branch COLCHICINE, Yes [id number] TAKE 1 Univers GOUT, 0.6 9-20 TABLET BY ity o f mg tablet 00:00: [facility] DAILY Medical Branch DOXAZOSIN 2 2023-0 Yes [id number] TAKE 1 U nivers mg tablet 9-20 TABLET BY ity o f 00:00: MOUTH EVERY Medical NIGHT AT [place] BEDTIME ATORVASTATI 2022-0 Yes [id number] 10mg TAKE 1 Univers N 10 mg 9-20 TABLET BY ity of tablet 00:00: MOUTH AT [place] [facility] TAMSULOSIN 2022-0 Yes [id number] .4mg TAKE 1 Univers 0.4 mg 24 9-20 CAPSULE BY ity of hr capsule 00:00: MOUTH DAILY Medical Branch LORATADINE 2022-0 Yes [id number] TAKE 1 U nivers 10 mg 9-20 TABLET BY ity of tablet 00:00: MOUTH [place] DAILY Medical Branch COLCHICINE, 2022-0 Yes [id number] TAKE 1 Univers GOUT, 0.6 9-20 TABLET BY ity o f mg tablet 00:00: MOUTH [place] DAILY Medical Branch DOXAZOSIN 2 2022-0 Yes [id number] TAKE 1 U nivers mg tablet 9-20 TABLET BY ity o f 00:00: MOUTH [place] EVERY Medical NIGHT AT [place] BEDTIME ATORVASTATI 0 Yes [id number] 10mg TAKE 1 Univers N 10 mg 9-20 TABLET BY ity of tablet 00:00: MOUTH AT [place] [facility] TAMSULOSIN 0 Yes [id number] .4mg TAKE 1 Univers 0.4 mg 24 9-20 CAPSULE BY ity of hr capsule 00:00: MOUTH [place] DAILY Medical Branch LORATADINE 2022-0 Yes [id number] TAKE 1 U nivers 10 mg 9-20 TABLET BY ity of tablet 00:00: MOUTH [place] DAILY Medical Branch COLCHICINE, 2022-0 Yes [id number] TAKE 1 Univers GOUT, 0.6 9-20 TABLET BY ity o f mg tablet 00:00: MOUTH [place] DAILY Medical Branch DOXAZOSIN 2 2022-0 Yes [id number] TAKE 1 U nivers mg tablet 9-20 TABLET BY ity o f 00:00: MOUTH [place] EVERY Medical NIGHT AT [place] BEDTIME ATORVASTATI 2022-0 Yes [id number] 10mg TAKE 1 Univers N 10 mg 9-20 TABLET BY ity of tablet 00:00: [address]TH [address] TAMSULOSIN 2022-0 Yes [id number] .4mg TAKE 1 Univers 0.4 mg 24 9-20 CAPSULE BY ity of hr capsule 00:00: MOUTH DAILY Medical Branch LORATADINE Yes [id number] TAKE 1 U nivers 10 mg 9-20 TABLET BY ity of tablet 00:00: MOUTH DAILY Medical Branch COLCHICINE, Yes [id number] TAKE 1 Univers GOUT, 0.6 9-20 TABLET BY ity o f mg tablet 00:00: MOUTH [place] DAILY Medical Branch DOXAZOSIN 2 0 Yes [id number] TAKE 1 U nivers mg tablet 9-20 TABLET BY ity o f 00:00: MOUTH EVERY Medical NIGHT AT [place] BEDTIME ATORVASTATI Yes [id number] 10mg TAKE 1 Univers N 10 mg 9-20 TABLET BY ity of tablet 00:00: MOUTH AT [place] BEDTIME Medical Branch TAMSULOSIN Yes [id number] .4mg TAKE 1 Univers 0.4 mg 24 9-20 CAPSULE BY ity of hr capsule 00:00: [facility] DAILY Medical Branch LORATADINE Yes [id number] TAKE 1 U nivers 10 mg 9-20 TABLET BY ity of tablet 00:00: MOUTH DAILY Medical Branch COLCHICINE, Yes [id number] TAKE 1 Univers GOUT, 0.6 9-20 TABLET BY ity o f mg tablet 00:00: [facility] DAILY Medical Branch DOXAZOSIN 2 0 Yes [id number] TAKE 1 U nivers mg tablet 9-20 TABLET BY ity o f 00:00: [facility] EVERY Medical NIGHT AT [place] BEDTIME ATORVASTATI 0 Yes [id number] 10mg TAKE 1 Univers N 10 mg 9-20 TABLET BY ity of tablet 00:00: MOUTH AT [place] [address] BEDTIME Medical Branch TAMSULOSIN Yes [id number] .4mg TAKE 1 Univers 0.4 mg 24 9-20 CAPSULE BY ity of hr capsule 00:00: MOUTH [place] DAILY Medical Branch LORATADINE 0 Yes [id number] TAKE 1 U nivers 10 mg 9-20 TABLET BY ity of tablet 00:00: [facility] DAILY Medical Branch LISINOPRIL 2022-0 Yes [id number] 20mg TAKE 1 Un awilda 20 mg 8-23 TABLET BY ity of tablet 00:00: MOUTH IN [place] THE Medical MORNING Branch AND IN THE EVENING LISINOPRIL 2022-0 Yes [id number] 20mg TAKE 1 Un awilda 20 mg 8-23 TABLET BY ity of tablet 00:00: MOUTH IN [place] THE Medical MORNING Branch AND IN THE EVENING LOVAZA, 2022-0 Yes [id number] TAKE 4 Univ ers OMEGA-3-ACI 8-23 CAPSULES ity of D ETHYL 00:00: BY MOUTH [place] ESTERS, 1 00 DAILY Medical gram Branch capsule LISINOPRIL 2022-0 Yes [id number] 20mg TAKE 1 Un wailda 20 mg 8-23 TABLET BY ity of tablet 00:00: MOUTH IN [place] THE Medical MORNING Branch AND IN THE EVENING LOVAZA, 2022-0 Yes [id number] TAKE 4 Univ ers OMEGA-3-ACI 8-23 CAPSULES ity of D ETHYL 00:00: BY MOUTH [place] ESTERS, 1 00 DAILY Medical gram Branch capsule LISINOPRIL 2022-0 Yes [id number] 20mg TAKE 1 Un awilda 20 mg 8-23 TABLET BY ity of tablet 00:00: MOUTH IN [place] THE Medical MORNING Branch AND IN THE EVENING LOVAZA, 0 Yes [id number] TAKE 4 Univ ers OMEGA-3-ACI 8-23 CAPSULES ity of D ETHYL 00:00: BY MOUTH [place] ESTERS, 1 00 DAILY Medical gram Branch capsule LISINOPRIL 2022-0 Yes [id number] 20mg TAKE 1 Un awilda 20 mg 8-23 TABLET BY ity of tablet 00:00: MOUTH IN [place] THE Medical MORNING Branch AND IN THE EVENING LOVAZA, 2022-0 Yes [id number] TAKE 4 Univ ers OMEGA-3-ACI 8-23 CAPSULES ity of D ETHYL 00:00: BY MOUTH [place] ESTERS, 1 00 DAILY Medical gram Branch capsule LISINOPRIL 2022-0 Yes [id number] 20mg TAKE 1 Un awilda 20 mg 8-23 TABLET BY ity of tablet 00:00: MOUTH IN [place] THE Medical MORNING Branch AND IN THE EVENING LOVAZA, 0 Yes [id number] TAKE 4 Univ ers OMEGA-3-ACI 8-23 CAPSULES ity of D ETHYL 00:00: BY MOUTH [place] ESTERS, 1 00 DAILY Medical gram Branch capsule LISINOPRIL 2023-0 Yes [id number] 20mg TAKE 1 Un awilda 20 mg 8-23 TABLET BY ity of tablet 00:00: MOUTH IN [place] THE Medical MORNING Branch AND IN THE EVENING LOVAZA, 2022-0 Yes [id number] TAKE 4 Univ ers OMEGA-3-ACI 8-23 CAPSULES ity of D ETHYL 00:00: BY MOUTH [place] ESTERS, 1 00 DAILY Medical gram Branch capsule LISINOPRIL 2022-0 Yes [id number] 20mg TAKE 1 Un awilda 20 mg 8-23 TABLET BY ity of tablet 00:00: MOUTH IN [place] THE Medical MORNING Branch AND IN THE EVENING LOVAZA, 2022-0 Yes [id number] TAKE 4 Univ ers OMEGA-3-ACI 8-23 CAPSULES ity of D ETHYL 00:00: BY MOUTH [place] ESTERS, 1 00 DAILY Medical gram Branch capsule LISINOPRIL 2022-0 Yes [id number] 20mg TAKE 1 Un awilda 20 mg 8-23 TABLET BY ity of tablet 00:00: MOUTH IN [place] THE Medical MORNING Branch AND IN THE EVENING LOVAZA, 2022-0 Yes [id number] TAKE 4 Univ ers OMEGA-3-ACI 8-23 CAPSULES ity of D ETHYL 00:00: BY MOUTH [place] ESTERS, 1 00 DAILY Medical gram Branch capsule LISINOPRIL 2022-0 Yes [id number] 20mg TAKE 1 Un awilda 20 mg 8-23 TABLET BY ity of tablet 00:00: MOUTH IN [place] THE Medical MORNING Branch AND IN THE EVENING LOVAZA, 2022-0 Yes [id number] TAKE 4 Univ ers OMEGA-3-ACI 8-23 CAPSULES ity of D ETHYL 00:00: BY MOUTH [place] ESTERS, 1 00 DAILY Medical gram Branch capsule LISINOPRIL 2022-0 Yes [id number] 20mg TAKE 1 Un awilda 20 mg 8-23 TABLET BY ity of tablet 00:00: MOUTH IN [place] THE Medical MORNING Branch AND IN THE EVENING LOVAZA, 0 Yes [id number] TAKE 4 Univ ers OMEGA-3-ACI 8-23 CAPSULES ity of D ETHYL 00:00: BY MOUTH [place] ESTERS, 1 00 DAILY Medical gram Branch capsule LISINOPRIL 3-0 Yes [id number] 20mg TAKE 1 Un awilda 20 mg 8-23 TABLET BY ity of tablet 00:00: MOUTH IN [place] THE Medical MORNING Branch AND IN THE EVENING LOVAZA, 0 Yes [id number] TAKE 4 Univ ers OMEGA-3-ACI 8-23 CAPSULES ity of D ETHYL 00:00: BY MOUTH [place] ESTERS, 1 00 DAILY Medical gram Branch capsule LISINOPRIL 2022-0 Yes [id number] 20mg TAKE 1 Un awilda 20 mg 8-23 TABLET BY ity of tablet 00:00: MOUTH IN [place] THE Medical MORNING Branch AND IN THE EVENING LOVAZA, 0 Yes [id number] TAKE 4 Univ ers OMEGA-3-ACI 8-23 CAPSULES ity of D ETHYL 00:00: BY MOUTH [place] ESTERS, 1 00 DAILY Medical gram Branch capsule LISINOPRIL 2022-0 Yes [id number] 20mg TAKE 1 [facility] 20 mg 8-23 TABLET BY ity of tablet 00:00: MOUTH IN [place] THE Medical MORNING Branch AND IN THE EVENING LOVAZA, 0 Yes [id number] TAKE 4 Univ ers OMEGA-3-ACI 8-23 CAPSULES ity of D ETHYL 00:00: BY MOUTH [place] ESTERS, 1 00 DAILY Medical gram Branch capsule LISINOPRIL 2022-0 Yes [id number] 20mg TAKE 1 [facility] 20 mg 8-23 TABLET BY ity of tablet 00:00: MOUTH IN [place] THE Medical MORNING Branch AND IN THE EVENING LOVAZA, 0 Yes [id number] TAKE 4 Univ ers OMEGA-3-ACI 8-23 CAPSULES ity of D ETHYL 00:00: BY MOUTH [place] ESTERS, 1 00 DAILY Medical gram Branch capsule LISINOPRIL 2022-0 Yes [id number] 20mg TAKE 1 [facility] 20 mg 8-23 TABLET BY ity of tablet 00:00: MOUTH IN [place] THE Medical MORNING Branch AND IN THE EVENING LOVAZA, 0 Yes [id number] TAKE 4 Univ ers OMEGA-3-ACI 8-23 CAPSULES ity of D ETHYL 00:00: BY MOUTH [place] ESTERS, 1 00 DAILY Medical gram Branch capsule LISINOPRIL 2022-0 Yes [id number] 20mg TAKE 1 [facility] [place] 20 mg 8-23 TABLET BY ity of tablet 00:00: MOUTH IN [place] THE Medical MORNING Branch AND IN THE EVENING LOVAZA, 0 Yes [id number] TAKE 4 Univ ers OMEGA-3-ACI 8-23 CAPSULES ity of D ETHYL 00:00: BY MOUTH [place] ESTERS, 1 00 DAILY Medical gram Branch capsule LISINOPRIL 2022-0 Yes [id number] 20mg TAKE 1 [facility] 20 mg 8-23 TABLET BY ity of tablet 00:00: MOUTH IN THE Medical MORNING Branch AND IN THE EVENING LOVAZA, 2022-0 Yes [id number] TAKE 4 Univ ers OMEGA-3-ACI 8-23 CAPSULES ity of D ETHYL 00:00: BY MOUTH [place] ESTERS, 1 00 DAILY Medical gram Branch capsule LISINOPRIL 2022-0 Yes [id number] 20mg TAKE 1 [facility] 20 mg 8-23 TABLET BY ity of tablet 00:00: MOUTH IN THE Medical MORNING Branch AND IN THE EVENING LOVAZA, 0 Yes [id number] TAKE 4 Univ ers OMEGA-3-ACI 8-23 CAPSULES ity of D ETHYL 00:00: BY MOUTH [place] ESTERS, 1 00 DAILY Medical gram Branch capsule COLCHICINE 2022-0 Yes [id number] TAKE 1 [facility] 0.6 mg 8-17 TABLET BY ity of tablet 00:00: MOUTH [place] DAILY Medical Branch DOXAZOSIN 2 2022-0 Yes [id number] TAKE 1 U nivers mg tablet 8-17 TABLET BY ity o f 00:00: MOUTH [place] EVERY Medical NIGHT AT Branch BEDTIME LORATADINE 2022-0 Yes [id number] TAKE 1 U nivers 10 mg 8-17 TABLET BY ity of tablet 00:00: MOUTH DAILY Medical Branch COLCHICINE 2022-0 Yes [id number] TAKE 1 [facility] 0.6 mg 8-17 TABLET BY ity of tablet 00:00: MOUTH [place] DAILY Medical Branch DOXAZOSIN 2 2022-0 Yes [id number] TAKE 1 U nivers mg tablet 8-17 TABLET BY ity o f 00:00: MOUTH [place] EVERY Medical NIGHT AT Branch BEDTIME LORATADINE 2022-0 Yes [id number] TAKE 1 [facility] nivers 10 mg 8-17 TABLET BY ity of tablet 00:00: MOUTH [place] DAILY Medical Branch COLCHICINE 2022-0 Yes [id number] TAKE 1 [facility] 0.6 mg 8-17 TABLET BY ity of tablet 00:00: MOUTH [place] DAILY Medical Branch DOXAZOSIN 2 2022-0 Yes [id number] TAKE 1 U nivers mg tablet 8-17 TABLET BY ity o f 00:00: MOUTH [place] 00 EVERY Medical NIGHT AT Branch BEDTIME LORATADINE 2022-0 Yes [id number] TAKE 1 U nivers 10 mg 8-17 TABLET BY ity of tablet 00:00: MOUTH [place] 00 DAILY Medical Branch COLCHICINE 2022-0 Yes [id number] TAKE 1 [facility] 0.6 mg 8-17 TABLET BY ity of tablet 00:00: MOUTH [place] DAILY Medical Branch DOXAZOSIN 2 2022-0 Yes [id number] TAKE 1 U nivers mg tablet 8-17 TABLET BY ity o f 00:00: MOUTH [place] EVERY Medical NIGHT AT [place] BEDTIME LORATADINE 2022-0 Yes [id number] TAKE 1 [facility] nivers 10 mg 8-17 TABLET BY ity of tablet 00:00: MOUTH [place] DAILY Medical Branch COLCHICINE 2022-0 Yes [id number] TAKE 1 [facility] 0.6 mg 8-17 TABLET BY ity of tablet 00:00: MOUTH [place] DAILY Medical Branch DOXAZOSIN 2 2022-0 Yes [id number] TAKE 1 [facility] nivers mg tablet 8-17 TABLET BY ity o f 00:00: MOUTH [place] EVERY Medical NIGHT AT [place] BEDTIME LORATADINE 2022-0 Yes [id number] TAKE 1 [facility] nivers 10 mg 8-17 TABLET BY ity of tablet 00:00: MOUTH [place] 00 DAILY Medical Branch COLCHICINE 2022-0 Yes [id number] TAKE 1 [facility] 0.6 mg 8-17 TABLET BY ity of tablet 00:00: MOUTH [place] DAILY Medical Branch DOXAZOSIN 2 2022-0 Yes [id number] TAKE 1 U nivers mg tablet 8-17 TABLET BY ity o f 00:00: MOUTH [place] EVERY Medical NIGHT AT [place] BEDTIME LORATADINE 2022-0 Yes [id number] TAKE 1 [facility] nivers 10 mg 8-17 TABLET BY ity of tablet 00:00: MOUTH [place] 00 DAILY Medical Branch COLCHICINE 2022-0 2023- No [id number] TAKE 1 [facility] 0.6 mg 8-17 09-20 TABLET BY ity of tablet 00:00: 00:00 MOUTH [place] 00 :00 DAILY Medical Branch DOXAZOSIN 2 2022-0 2023- No [id number] TAKE 1 [facility] mg tablet 8-17 09-20 TABLET BY ity of 00:00: 00:00 MOUTH [place] 00 :00 EVERY Medical NIGHT AT [place] BEDTIME LORATADINE 3-0 2023- No [id number] TAKE 1 [facility] 10 mg 8-17 09-20 TABLET BY ity of tablet 00:00: 00:00 MOUTH [place] 00 :00 DAILY Medical [place] fenofibrate 2022-0 Yes [id number] 54mg Take 1 [facility] 54 mg 7-26 tablet by ity of tablet 00:00: mouth in [place] the Medical morning. Branch fenofibrate 3-0 Yes [id number] 54mg Take 1 [facility] 54 mg 7-26 tablet by ity of tablet 00:00: mouth in [place] the Medical morning. Branch fenofibrate 3-0 Yes [id number] 54mg Take 1 [facility] 54 mg 7-26 tablet by ity of tablet 00:00: mouth in [place] the Medical morning. Branch fenofibrate 2022-0 Yes [id number] 54mg Take 1 [facility] 54 mg 7-26 tablet by ity of tablet 00:00: mouth in [place] the Medical morning. Branch fenofibrate 2022-0 Yes [id number] 54mg Take 1 [facility] 54 mg 7-26 tablet by ity of tablet 00:00: mouth in [place] the Medical morning. Branch fenofibrate 2022-0 Yes [id number] 54mg Take 1 [facility] 54 mg 7-26 tablet by ity of tablet 00:00: mouth in [place] the Medical morning. Branch fenofibrate 2022-0 Yes [id number] 54mg Take 1 [facility] 54 mg 7-26 tablet by ity of tablet 00:00: mouth in [place] the Medical morning. Branch fenofibrate 3-0 Yes [id number] 54mg Take 1 [facility] 54 mg 7-26 tablet by ity of tablet 00:00: mouth in [place] the Medical morning. Branch fenofibrate 3-0 Yes [id number] 54mg Take 1 [facility] 54 mg 7-26 tablet by ity of tablet 00:00: mouth in [place] the Medical morning. Branch fenofibrate 3-0 Yes [id number] 54mg Take 1 [facility] 54 mg 7-26 tablet by ity of tablet 00:00: mouth in [place] the Medical morning. Branch fenofibrate 3-0 Yes [id number] 54mg Take 1 [facility] 54 mg 7-26 tablet by ity of tablet 00:00: mouth in [place] 00 the Medical morning. Branch fenofibrate 2023-0 Yes [id number] 54mg Take 1 [facility] 54 mg 7-26 tablet by ity of tablet 00:00: mouth in [place] 00 the Medical morning. Branch fenofibrate 2023-0 Yes [id number] 54mg Take 1 [facility] 54 mg 7-26 tablet by ity of tablet 00:00: mouth in [place] the Medical morning. Branch fenofibrate 2023-0 Yes [id number] 54mg Take 1 [facility] 54 mg 7-26 tablet by ity of tablet 00:00: mouth in [place] the Medical morning. Branch fenofibrate 2023-0 Yes [id number] 54mg Take 1 [facility] 54 mg 7-26 tablet by ity of tablet 00:00: mouth in [place] the Medical morning. Branch fenofibrate 2023-0 Yes [id number] 54mg Take 1 [facility] 54 mg 7-26 tablet by ity of tablet 00:00: mouth in [place] the Medical morning. Branch fenofibrate 2023-0 Yes [id number] 54mg Take 1 [facility] 54 mg 7-26 tablet by ity of tablet 00:00: mouth in [place] the Medical morning. Branch fenofibrate 2023-0 Yes [id number] 54mg Take 1 [facility] 54 mg 7-26 tablet by ity of tablet 00:00: mouth in [place] the Medical morning. Branch fenofibrate 2023-0 Yes [id number] 54mg Take 1 [facility] 54 mg 7-26 tablet by ity of tablet 00:00: mouth in [place] the Medical morning. Branch fenofibrate 2023-0 Yes [id number] 54mg Take 1 [facility] 54 mg 7-26 tablet by ity of tablet 00:00: mouth in [place] the Medical morning. Branch fenofibrate 2023-0 Yes [id number] 54mg Take 1 [facility] 54 mg 7-26 tablet by ity of tablet 00:00: mouth in [place] the Medical morning. Branch fenofibrate 2023-0 Yes [id number] 54mg Take 1 [facility] 54 mg 7-26 tablet by ity of tablet 00:00: mouth in [place] the Medical morning. Branch fenofibrate 2023-0 Yes [id number] 54mg Take 1 [facility] 54 mg 7-26 tablet by ity of tablet 00:00: mouth in [place] 00 the Medical morning. Branch fenofibrate 2023-0 Yes [id number] 54mg Take 1 [facility] 54 mg 7-26 tablet by ity of tablet 00:00: mouth in [place] 00 the Medical morning. Branch fenofibrate 2022-0 Yes [id number] 54mg Take 1 [facility] 54 mg 7-26 tablet by ity of tablet 00:00: mouth in [place] 00 the Medical morning. Branch LORATADINE 2022-0 Yes [id number] TAKE 1 U nivers 10 mg 7-19 TABLET BY ity of tablet 00:00: MOUTH [place] 00 DAILY Medical Branch LORATADINE 2022-0 Yes [id number] TAKE 1 U nivers 10 mg 7-19 TABLET BY ity of tablet 00:00: MOUTH [place] DAILY Medical Branch LORATADINE 2022-0 Yes [id number] TAKE 1 U nivers 10 mg 7-19 TABLET BY ity of tablet 00:00: MOUTH [place] DAILY Medical Branch LORATADINE 2022-0 Yes [id number] TAKE 1 U nivers 10 mg 7-19 TABLET BY ity of tablet 00:00: MOUTH [place] 00 DAILY Medical Branch LORATADINE 2022-0 Yes [id number] TAKE 1 U nivers 10 mg 7-19 TABLET BY ity of tablet 00:00: MOUTH [place] 00 DAILY Medical Branch LORATADINE 2022-0 Yes [id number] TAKE 1 U nivers 10 mg 7-19 TABLET BY ity of tablet 00:00: MOUTH [place] 00 DAILY Medical Branch LORATADINE 3-0 2023- No [id number] TAKE 1 [facility] 10 mg 7-19 08-17 TABLET BY ity of tablet 00:00: 00:00 [facility] [place] 00 :00 DAILY Medical Branch DOXAZOSIN 2 2022-0 Yes [id number] TAKE 1 U nivers mg tablet 7-12 TABLET BY ity o f 00:00: MOUTH [place] 00 EVERY Medical NIGHT AT Branch BEDTIME DOXAZOSIN 2 2022-0 Yes [id number] TAKE 1 U nivers mg tablet 7-12 TABLET BY ity o f 00:00: MOUTH [place] 00 EVERY Medical NIGHT AT Branch BEDTIME DOXAZOSIN 2 2022-0 Yes [id number] TAKE 1 U nivers mg tablet 7-12 TABLET BY ity o f 00:00: MOUTH [place] 00 EVERY Medical NIGHT AT Branch BEDTIME DOXAZOSIN 2 2022-0 Yes [id number] TAKE 1 U nivers mg tablet 7-12 TABLET BY ity o f 00:00: MOUTH [place] 00 EVERY Medical NIGHT AT [place] BEDTIME DOXAZOSIN 2 2022-0 Yes [id number] TAKE 1 U nivers mg tablet 7-12 TABLET BY ity o f 00:00: MOUTH [place] 00 EVERY Medical NIGHT AT [place] BEDTIME DOXAZOSIN 2 2022-0 Yes [id number] TAKE 1 U nivers mg tablet 7-12 TABLET BY ity o f 00:00: MOUTH [place] 00 [facility] Yes [id number] TAKE 1 U nivers mg tablet 7-12 TABLET BY ity o f 00:00: MOUTH [place] 00 [facility]0 Yes [id number] TAKE 1 U nivers mg tablet 7-12 TABLET BY ity o f 00:00: MOUTH [place] 00 [facility]0 Yes [id number] TAKE 1 U nivers mg tablet 7-12 TABLET BY ity o f 00:00: MOUTH [place] 00 EVERY Medical NIGHT AT [facility] DOXAZOSIN 2 2022-0 2022- No [id number] TAKE 1 Univers mg tablet 7-12 08-17 TABLET BY ity of 00:00: 00:00 MOUTH [place] 00 :00 [facility] Yes [id number] TAKE 1 Univers 0.6 mg 7-05 TABLET BY ity of tablet 00:00: MOUTH [place] DAILY Medical Branch ATORVASTATI 2022-0 Yes [id number] 10mg TAKE 1 Univers N 10 mg 7-05 TABLET BY ity of tablet 00:00: MOUTH AT [place] [address] BEDTIME Medical Branch COLCHICINE 2022-0 Yes [id number] TAKE 1 Univers 0.6 mg 7-05 TABLET BY ity of tablet 00:00: MOUTH [place] 00 DAILY Medical Branch ATORVASTATI 2022-0 Yes [id number] 10mg TAKE 1 Univers N 10 mg 7-05 TABLET BY ity of tablet 00:00: MOUTH AT [place] [address] BEDTIME Medical Branch COLCHICINE 2022-0 Yes [id number] TAKE 1 Univers 0.6 mg 7-05 TABLET BY ity of tablet 00:00: MOUTH [place] DAILY Medical Branch ATORVASTATI 2022-0 Yes [id number] 10mg TAKE 1 Univers N 10 mg 7-05 TABLET BY ity of tablet 00:00: MOUTH AT [place] [facility] Medical Branch COLCHICINE 2022-0 Yes [id number] TAKE 1 Univers 0.6 mg 7-05 TABLET BY ity of tablet 00:00: MOUTH [place] DAILY Medical Branch ATORVASTATI 2022-0 Yes [id number] 10mg TAKE 1 Univers N 10 mg 7-05 TABLET BY ity of tablet 00:00: MOUTH AT [place] [facility] Medical Branch COLCHICINE 2022-0 Yes [id number] TAKE 1 Univers 0.6 mg 7-05 TABLET BY ity of tablet 00:00: MOUTH [place] DAILY Medical Branch ATORVASTATI 2022-0 Yes [id number] 10mg TAKE 1 Univers N 10 mg 7-05 TABLET BY ity of tablet 00:00: MOUTH AT [place] [facility] Medical Branch COLCHICINE 2022-0 Yes [id number] TAKE 1 Univers 0.6 mg 7-05 TABLET BY ity of tablet 00:00: MOUTH [place] DAILY Medical Branch ATORVASTATI 2022-0 Yes [id number] 10mg TAKE 1 Univers N 10 mg 7-05 TABLET BY ity of tablet 00:00: MOUTH AT [place] [facility] Medical Branch COLCHICINE 2022-0 Yes [id number] TAKE 1 Univers 0.6 mg 7-05 TABLET BY ity of tablet 00:00: MOUTH [place] DAILY Medical Branch ATORVASTATI 2022-0 Yes [id number] 10mg TAKE 1 Univers N 10 mg 7-05 TABLET BY ity of tablet 00:00: MOUTH AT [place] [facility] Medical Branch COLCHICINE 2022-0 Yes [id number] TAKE 1 Univers 0.6 mg 7-05 TABLET BY ity of tablet 00:00: MOUTH [place] DAILY Medical Branch ATORVASTATI 2022-0 Yes [id number] 10mg TAKE 1 Univers N 10 mg 7-05 TABLET BY ity of tablet 00:00: MOUTH AT [place] [facility] Medical Branch COLCHICINE 2022-0 Yes [id number] TAKE 1 Univers 0.6 mg 7-05 TABLET BY ity of tablet 00:00: MOUTH [place] [facility] Medical Branch ATORVASTATI 2022-0 Yes [id number] 10mg TAKE 1 Univers N 10 mg 7-05 TABLET BY ity of tablet 00:00: MOUTH AT [place] [facility] Medical Branch COLCHICINE 2022-0 Yes [id number] TAKE 1 Univers 0.6 mg 7-05 TABLET BY ity of tablet 00:00: MOUTH [place] DAILY Medical Branch ATORVASTATI Yes [id number] 10mg TAKE 1 Univers N 10 mg 7-05 TABLET BY ity of tablet 00:00: MOUTH AT [place] [facility] Medical Branch COLCHICINE Yes [id number] TAKE 1 Univers 0.6 mg 7-05 TABLET BY ity of tablet 00:00: MOUTH [place] DAILY Medical Branch ATORVASTATI Yes [id number] 10mg TAKE 1 Univers N 10 mg 7-05 TABLET BY ity of tablet 00:00: [facility] AT [place] [facility] COLCHICINE Yes [id number] TAKE 1 Univers 0.6 mg 7-05 TABLET BY ity of tablet 00:00: MOUTH [place] DAILY Medical Branch ATORVASTATI Yes [id number] 10mg TAKE 1 Univers N 10 mg 7-05 TABLET BY ity of tablet 00:00: MOUTH AT [place] [facility] Medical Branch ATORVASTA Yes [id number] 10mg TAKE 1 Univers N 10 mg 7-05 TABLET BY ity of tablet 00:00: MOUTH AT [place] [facility] ATORVASTA Yes [id number] 10mg TAKE 1 Univers N 10 mg 7-05 TABLET BY ity of tablet 00:00: MOUTH AT [place] [facility] ATORVASTA Yes [id number] 10mg TAKE 1 Univers N 10 mg 7-05 TABLET BY ity of tablet 00:00: MOUTH AT [place] [facility] ATORVASTA Yes [id number] 10mg TAKE 1 Univers N 10 mg 7-05 TABLET BY ity of tablet 00:00: MOUTH AT [place] [facility] ATORVASTA Yes [id number] 10mg TAKE 1 Univers N 10 mg 7-05 TABLET BY ity of tablet 00:00: MOUTH AT [address] ATORVASTA Yes [id number] 10mg TAKE 1 Univers N 10 mg 7-05 TABLET BY ity of tablet 00:00: MOUTH AT [address] ATORVASTA Yes [id number] 10mg TAKE 1 Univers N 10 mg 7-05 TABLET BY ity of tablet 00:00: MOUTH AT [place] 00 BEDTIME Medical Branch ATORVASTATI Yes [id number] 10mg TAKE 1 Univers N 10 mg 10-31 TABLET BY ity of tablet 00:00: MOUTH AT [place] 00 BEDTIME Medical Branch ATORVASTATI 2022- No [id number] 10mg TAKE 1 Univers N 10 mg 10-31 TABLET BY ity of tablet 00:00: 00:00 MOUTH AT [place] 00 :00 BEDTIME Medical Branch COLCHICINE 2022- No [id number] TAKE 1 Univers 0.6 mg 10-31 TABLET BY ity of tablet 00:00: 00:00 MOUTH [place] 00 :00 DAILY Medical Branch insulin Yes [id number] 45 units U nivers glargine 6-26 sq qam, 30 ity o f ([place] 00:00: units sq [place] U-100 00 qpm Medical INSULIN) Branch 100 unit/mL injection insulin Yes [id number] 45 units U nivers glargine 6-26 sq qam, 30 ity o f ([place] 00:00: units sq [place] U-100 00 qpm Medical INSULIN) Branch 100 unit/mL injection insulin Yes [id number] 45 units U nivers glargine 6-26 sq qam, 30 ity o f ([place] 00:00: units sq [place] U-100 00 qpm Medical INSULIN) Branch 100 unit/mL injection insulin Yes [id number] 45 units U nivers glargine 6-26 sq qam, 30 ity o f ([place] 00:00: units sq [place] U-100 00 qpm Medical INSULIN) Branch 100 unit/mL injection insulin Yes [id number] 45 units U nivers glargine 6-26 sq qam, 30 ity o f ([place] 00:00: units sq [place] U-100 00 qpm Medical INSULIN) Branch 100 unit/mL injection insulin Yes [id number] 45 units U nivers glargine 6-26 sq qam, 30 ity o f ([place] 00:00: units sq [place] U-100 00 qpm Medical INSULIN) Branch 100 unit/mL injection insulin Yes [id number] 45 units U nivers glargine 6-26 sq qam, 30 ity o f ([place] 00:00: units sq [place] U-100 00 qpm Medical INSULIN) Branch 100 unit/mL injection insulin Yes [id number] 45 units U nivers glargine 6-26 sq qam, 30 ity o f ([place] 00:00: units sq [place] U-100 00 qpm Medical INSULIN) Branch 100 unit/mL injection insulin Yes [id number] 45 units U nivers glargine 6-26 sq qam, 30 ity o f ([place] 00:00: units sq [place] U-100 00 qpm Medical INSULIN) Branch 100 unit/mL injection insulin Yes [id number] 45 units U nivers glargine 6-26 sq qam, 30 ity o f ([place] 00:00: units sq [place] U-100 00 qpm Medical INSULIN) Branch 100 unit/mL injection insulin Yes [id number] 45 units U nivers glargine 6-26 sq qam, 30 ity o f ([place] 00:00: units sq [place] U-100 00 qpm Medical INSULIN) Branch 100 unit/mL injection insulin Yes [id number] 45 units U nivers glargine 6-26 sq qam, 30 ity o f ([place] 00:00: units sq [place] U-100 00 qpm Medical INSULIN) Branch 100 unit/mL injection insulin Yes [id number] 45 units U nivers glargine 6-26 sq qam, 30 ity o f ([place] 00:00: units sq [place] U-100 00 qpm Medical INSULIN) Branch 100 unit/mL injection insulin Yes [id number] 45 units U nivers glargine 6-26 sq qam, 30 ity o f ([place] 00:00: units sq [place] U-100 00 qpm Medical INSULIN) Branch 100 unit/mL injection insulin 0 Yes [id number] 45 units U nivers glargine 6-26 sq qam, 30 ity o f ([place] 00:00: units sq [place] U-100 00 qpm Medical INSULIN) Branch 100 unit/mL injection insulin 2022-0 Yes [id number] 45 units U nivers glargine 6-26 sq qam, 30 ity o f ([place] 00:00: units sq [place] U-100 00 qpm Medical INSULIN) Branch 100 unit/mL injection insulin 2022-0 Yes [id number] 45 units U nivers glargine 6-26 sq qam, 30 ity o f ([place] 00:00: units sq [place] U-100 00 qpm Medical INSULIN) Branch 100 unit/mL injection insulin 2022-0 Yes [id number] 45 units U nivers glargine 6-26 sq qam, 30 ity o f ([place] 00:00: units sq [place] U-100 00 qpm Medical INSULIN) Branch 100 unit/mL injection insulin 2022-0 Yes [id number] 45 units U nivers glargine 6-26 sq qam, 30 ity o f ([place] 00:00: units sq [place] U-100 00 qpm Medical INSULIN) Branch 100 unit/mL injection insulin 2022-0 Yes [id number] 45 units U nivers glargine 6-26 sq qam, 30 ity o f ([place] 00:00: units sq [place] U-100 00 qpm Medical INSULIN) Branch 100 unit/mL injection insulin 2022-0 Yes [id number] 45 units U nivers glargine 6-26 sq qam, 30 ity o f ([place] 00:00: units sq [place] U-100 00 qpm Medical INSULIN) Branch 100 unit/mL injection insulin 2022-0 Yes [id number] 45 units U nivers glargine 6-26 sq qam, 30 ity o f ([place] 00:00: units sq [place] U-100 00 qpm Medical INSULIN) Branch 100 unit/mL injection insulin 2022-0 Yes [id number] 45 units U nivers glargine 6-26 sq qam, 30 ity o f ([place] 00:00: units sq [place] U-100 00 qpm Medical INSULIN) Branch 100 unit/mL injection insulin 2022-0 Yes [id number] 45 units U nivers glargine 6-26 sq qam, 30 ity o f ([place] 00:00: units sq [place] U-100 00 qpm Medical INSULIN) Branch 100 unit/mL injection insulin 2022-0 Yes [id number] 45 units U nivers glargine 6-26 sq qam, 30 ity o f ([place] 00:00: units sq [place] U-100 00 qpm Medical INSULIN) Branch 100 unit/mL injection insulin 0 Yes [id number] 45 units U nivers glargine 6-26 sq qam, 30 ity o f ([place] 00:00: units sq [place] U-100 00 qpm Medical INSULIN) Branch 100 unit/mL injection insulin 0 Yes [id number] 45 units U nivers glargine 6-26 sq qam, 30 ity o f ([place] 00:00: units sq [place] U-100 00 qpm Medical INSULIN) Branch 100 unit/mL injection insulin Yes [id number] 45 units U nivers glargine 6-26 sq qam, 30 ity o f ([place] 00:00: units sq [place] U-100 00 qpm Medical INSULIN) Branch 100 unit/mL injection insulin Yes [id number] 45 units U nivers glargine 6-26 sq qam, 30 ity o f ([place] 00:00: units sq [place] U-100 00 qpm Medical INSULIN) Branch 100 unit/mL injection insulin 0 Yes [id number] 45 units U nivers glargine 6-26 sq qam, 30 ity o f ([place] 00:00: units sq [place] U-100 00 qpm Medical INSULIN) Branch 100 unit/mL injection insulin 2022-0 Yes [id number] 45 units U nivers glargine 6-26 sq qam, 30 ity o f ([place] 00:00: units sq [place] U-100 00 qpm Medical INSULIN) Branch 100 unit/mL injection insulin 2022-0 Yes [id number] 45 units U nivers glargine 6-26 sq qam, 30 ity o f ([place] 00:00: units sq [place] U-100 00 qpm Medical INSULIN) Branch 100 unit/mL injection insulin 2022-0 Yes [id number] 45 units U nivers glargine 6-26 sq qam, 30 ity o f ([place] 00:00: units sq [place] U-100 00 qpm Medical INSULIN) Branch 100 unit/mL injection insulin 2022-0 Yes [id number] 45 units U nivers glargine 6-26 sq qam, 30 ity o f ([place] 00:00: units sq [place] U-100 00 qpm Medical INSULIN) Branch 100 unit/mL injection insulin 2022-0 Yes [id number] 45 units U nivers glargine 6-26 sq qam, 30 ity o f ([place] 00:00: units sq [place] U-100 00 qpm Medical INSULIN) Branch 100 unit/mL injection insulin 2022-0 Yes [id number] 45 units U nivers glargine 6-26 sq qam, 30 ity o f ([place] 00:00: units sq [place] U-100 00 qpm Medical INSULIN) Branch 100 unit/mL injection insulin 2022-0 Yes [id number] 45 units U nivers glargine 6-26 sq qam, 30 ity o f ([place] 00:00: units sq [place] U-100 00 qpm Medical INSULIN) Branch 100 unit/mL injection insulin 2022-0 Yes [id number] 45 units U nivers glargine 6-26 sq qam, 30 ity o f ([place] 00:00: units sq [place] U-100 00 qpm Medical INSULIN) Branch 100 unit/mL injection LORATADINE 2022-0 Yes [id number] TAKE 1 U nivers 10 mg 6-21 TABLET BY ity of tablet 00:00: MOUTH DAILY Medical Branch LORATADINE 2022-0 Yes [id number] TAKE 1 U nivers 10 mg 6-21 TABLET BY ity of tablet 00:00: MOUTH DAILY Medical Branch LORATADINE 2022-0 Yes [id number] TAKE 1 U nivers 10 mg 6-21 TABLET BY ity of tablet 00:00: MOUTH DAILY Medical Branch LORATADINE 2022-0 Yes [id number] TAKE 1 U nivers 10 mg 6-21 TABLET BY ity of tablet 00:00: MOUTH DAILY Medical Branch LORATADINE 2022-0 Yes [id number] TAKE 1 U nivers 10 mg 6-21 TABLET BY ity of tablet 00:00: MOUTH DAILY Medical Branch LORATADINE 2023-0 Yes [id number] TAKE 1 U nivers 10 mg 6-21 TABLET BY ity of tablet 00:00: [facility] DAILY Medical Branch LORATADINE 3-0 Yes [id number] TAKE 1 U nivers 10 mg 6-21 TABLET BY ity of tablet 00:00: [facility] DAILY Medical Branch LORATADINE 3-0 Yes [id number] TAKE 1 U nivers 10 mg 6-21 TABLET BY ity of tablet 00:00: [facility] DAILY Medical Branch LORATADINE 3-0 Yes [id number] TAKE 1 U nivers 10 mg 6-21 TABLET BY ity of tablet 00:00: [facility] DAILY Medical Branch LORATADINE 3-0 Yes [id number] TAKE 1 U nivers 10 mg 6-21 TABLET BY ity of tablet 00:00: [facility] DAILY Medical Branch LORATADINE 3-0 Yes [id number] TAKE 1 U nivers 10 mg 6-21 TABLET BY ity of tablet 00:00: [facility] DAILY Medical Branch LORATADINE 3-0 2023- No [id number] TAKE 1 [facility] 10 mg 6-21 07-19 TABLET BY ity of tablet 00:00: 00:00 [facility] 00 : DAILY Medical Branch TAMSULOSIN 3-0 Yes [id number] .4mg TAKE 1 [facility] 0.4 mg 24 6-08 CAPSULE BY ity of hr capsule 00:00: [facility] DAILY Medical Branch TAMSULOSIN 3-0 Yes [id number] .4mg TAKE 1 [facility] 0.4 mg 24 6-08 CAPSULE BY ity of hr capsule 00:00: [facility] DAILY Medical Branch TAMSULOSIN 3-0 Yes [id number] .4mg TAKE 1 [facility] 0.4 mg 24 6-08 CAPSULE BY ity of hr capsule 00:00: [facility] DAILY [facility] TAMSULOSIN 3-0 Yes [id number] .[id number] TAKE 1 [facility] 0.4 mg 24 6-08 CAPSULE BY ity of hr capsule 00:00: [facility] DAILY [facility] TAMSULOSIN 3-0 Yes [id number] .4mg TAKE 1 [facility] 0.4 mg 24 6-08 CAPSULE BY ity of hr capsule 00:00: [facility] DAILY Medical [facility] TAMSULOSIN 2023-0 Yes [id number] .4mg TAKE 1 [facility] 0.4 mg 24 6-08 CAPSULE BY ity of hr capsule 00:00: [facility]TH DAILY [facility] TAMSULOSIN 2023-0 Yes [id number] .4mg TAKE 1 [facility] 0.4 mg 24 6-08 CAPSULE BY ity of hr capsule 00:00: MOUTH DAILY [facility] TAMSULOSIN 2023-0 Yes [id number] .4mg TAKE 1 [facility] 0.4 mg 24 6-08 CAPSULE BY ity of hr capsule 00:00: MOUTH DAILY [facility] TAMSULOSIN 2023-0 Yes [id number] .4mg TAKE 1 [facility] 0.4 mg 24 6-08 CAPSULE BY ity of hr capsule 00:00: MOUTH DAILY [facility] TAMSULOSIN 3-0 Yes [id number] .4mg TAKE 1 [facility] 0.4 mg 24 6-08 CAPSULE BY ity of hr capsule 00:00: MOUTH DAILY [facility] TAMSULOSIN 3-0 Yes [id number] .4mg TAKE 1 [facility] 0.4 mg 24 6-08 CAPSULE BY ity of hr capsule 00:00: MOUTH DAILY [facility] TAMSULOSIN 3-0 Yes [id number] .4mg TAKE 1 [facility] 0.4 mg 24 6-08 CAPSULE BY ity of hr capsule 00:00: MOUTH DAILY [facility] TAMSULOSIN 3-0 Yes [id number] .4mg TAKE 1 [facility] 0.4 mg 24 6-08 CAPSULE BY ity of hr capsule 00:00: DAILY [facility] TAMSULOSIN 3-0 Yes [id number] .4mg TAKE 1 [facility] 0.4 mg 24 6-08 CAPSULE BY ity of hr capsule 00:00: MOUTH DAILY [facility] TAMSULOSIN 3-0 Yes [id number] .4mg TAKE 1 [facility] 0.4 mg 24 6-08 CAPSULE BY ity of hr capsule 00:00: MOUTH DAILY [facility] TAMSULOSIN 2023-0 Yes [id number] .4mg TAKE 1 [facility] 0.4 mg 24 6-08 CAPSULE BY ity of hr capsule 00:00: MOUTH DAILY [facility] TAMSULOSIN 2023-0 Yes [id number] .4mg TAKE 1 [facility] 0.4 mg 24 6-08 CAPSULE BY ity of hr capsule 00:00: DAILY [facility] TAMSULOSIN 3-0 Yes [id number] .4mg TAKE 1 [facility] 0.4 mg 24 6-08 CAPSULE BY ity of hr capsule 00:00: DAILY [facility] TAMSULOSIN 2022-0 Yes [id number] .4mg TAKE 1 [facility] 0.4 mg 24 6-08 CAPSULE BY ity of hr capsule 00:00: DAILY [facility] TAMSULOSIN 3-0 Yes [id number] .4mg TAKE 1 [facility] 0.4 mg 24 6-08 CAPSULE BY ity of hr capsule 00:00: DAILY [facility] TAMSULOSIN 2022-0 Yes [id number] .4mg TAKE 1 [facility] 0.4 mg 24 6-08 CAPSULE BY ity of hr capsule 00:00: DAILY [facility] TAMSULOSIN 2022-0 Yes [id number] .4mg TAKE 1 [facility] 0.4 mg 24 6-08 CAPSULE BY ity of hr capsule 00:00: DAILY [facility] TAMSULOSIN 2022-0 Yes [id number] .4mg TAKE 1 [facility] 0.4 mg 24 6-08 CAPSULE BY ity of hr capsule 00:00: DAILY [facility] TAMSULOSIN 2022-0 Yes [id number] .4mg TAKE 1 [facility] 0.4 mg 24 6-08 CAPSULE BY ity of hr capsule 00:00: DAILY [facility] TAMSULOSIN 2022-0 Yes [id number] .4mg TAKE 1 [facility] 0.4 mg 24 6-08 CAPSULE BY ity of hr capsule 00:00: DAILY [facility] TAMSULOSIN 2022-0 Yes [id number] .4mg TAKE 1 [facility] 0.4 mg 24 6-08 CAPSULE BY ity of hr capsule 00:00: DAILY [facility] TAMSULOSIN 2022-0 Yes [id number] .4mg TAKE 1 [facility] 0.4 mg 24 6-08 CAPSULE BY ity of hr capsule 00:00: [facility] DAILY Medical Branch insulin 3-0 Yes 7U Inject [address] [facility] lispro 6-08 Units [facility] (HumaLOG) 00:00: subcutaneo Me dical 100 unit/mL 00 usly in Cente r InPn the morning and 7 Units at noon and 7 Units in the evening. Inject before meals. Pen to take the place of the vial. insulin Yes Inject [facility]u [facility] glargine 6-08 SQ [facility] the [facility] (Lantus 00:00: morning Medical Solostar 00 and 20u at Cente r U-100 night. Insulin) 100 unit/mL (3 mL) InPn insulin Yes 7U Inject [address] [facility] lispro 6-08 Units [facility] (HumaLOG) 00:00: subcutaneo Me dical 100 unit/mL 00 usly in Cente r InPn the morning and 7 Units at noon and 7 Units in the evening. Inject before meals. Pen to take the place of the vial. insulin Yes Inject 40u [facility] glargine 6-08 SQ [facility] the [facility] (Lantus 00:00: morning Medical Solostar 00 and 20u at Cente r U-100 night. Insulin) 100 unit/mL (3 mL) InPn insulin Yes 7U Inject [address] [facility] lispro 6-08 Units [facility] (HumaLOG) 00:00: subcutaneo Me dical 100 unit/mL 00 usly in Cente r InPn the morning and 7 Units at noon and 7 Units in the evening. Inject before meals. Pen to take the place of the vial. insulin Yes Inject 40u [facility] glargine 6-08 SQ [facility] the [facility] (Lantus 00:00: morning Medical Solostar 00 and 20u at Cente r U-100 night. Insulin) 100 unit/mL (3 mL) InPn insulin Yes 7U Inject [address] [facility] lispro 6-08 Units [facility] (HumaLOG) 00:00: subcutaneo Me dical 100 unit/mL 00 usly in Cente r InPn the morning and 7 Units at noon and 7 Units in the evening. Inject before meals. Pen to take the place of the vial. insulin Yes Inject [facility]u [facility] glargine 6-08 SQ in the [facility] (Lantus 00:00: morning Medical Solostar 00 and 20u at Cente r U-100 night. Insulin) 100 unit/mL (3 mL) InPn insulin 2023-0 Yes 7U Inject [address] [facility] lispro 6-08 Units [facility] (HumaLOG) 00:00: subcutaneo Me dical 100 unit/mL 00 usly in Cente r InPn the morning and 7 Units at noon and 7 Units in the evening. Inject before meals. Pen to take the place of the vial. insulin Yes Inject 40u [facility] glargine 6-08 SQ in the [facility] (Lantus 00:00: morning Medical Solostar 00 and 20u at Cente r U-100 night. Insulin) 100 unit/mL (3 mL) InPn insulin Yes 7U Inject [address] [facility] lispro 6-08 Units [facility] (HumaLOG) 00:00: subcutaneo Me dical 100 unit/mL 00 usly in Cente r InPn the morning and 7 Units at noon and 7 Units in the evening. Inject before meals. Pen to take the place of the vial. insulin Yes Inject [facility]u [facility] glargine 6-08 SQ in the [facility] (Lantus 00:00: morning Medical Solostar 00 and 20u at Cente r U-100 night. Insulin) 100 unit/mL (3 mL) In TAMSULOSIN 2022- No [id number] .4mg TAKE 1 [facility] 0.4 mg 24 10-04 CAPSULE BY ity of hr capsule 00:00: 00:00 MOUTH [place] 00 :00 DAILY Medical Branch HUMALOG Yes [facility] U-100 6-06 ity of INSULIN 100 00:00: [place] unit/mL 00 Medical solution Branch BD INSULIN Yes USE FIVE Uni vers PEN NEEDLE 6-06 TIME A DAY ity of UF 29 gauge 00:00: [place] x 1/2" Ndle 00 Medical Branch HUMALOG Yes [facility] U-100 6-06 ity of INSULIN 100 00:00: [place] unit/mL 00 Medical solution Branch BD INSULIN Yes USE FIVE Uni vers PEN NEEDLE 6-06 TIME A DAY ity of UF 29 gauge 00:00: [place] x 1/2" Ndle 00 Medical Branch HUMALOG Yes [facility] U-100 6-06 ity of INSULIN 100 00:00: [place] unit/mL 00 Medical solution Branch BD INSULIN 2023-0 Yes USE FIVE Uni vers PEN NEEDLE 6-06 TIME A DAY ity of UF 29 gauge 00:00: [place] x 1/2" Ndle 00 Medical Branch HUMALOG 2022-0 Yes [facility] U-100 6-06 ity of INSULIN 100 00:00: [place] unit/mL 00 Medical solution Branch BD INSULIN 2022-0 Yes USE FIVE Uni vers PEN NEEDLE 6-06 TIME A DAY ity of UF 29 gauge 00:00: [place] x 1/2" Ndle 00 Medical Branch HUMALOG 2022-0 Yes [facility] U-100 6-06 ity of INSULIN 100 00:00: [place] unit/mL 00 Medical solution Branch BD INSULIN 2022-0 Yes USE FIVE Uni vers PEN NEEDLE 6-06 TIME A DAY ity of UF 29 gauge 00:00: [place] x 1/2" Ndle 00 Medical Branch HUMALOG 2022-0 Yes [facility] U-100 6-06 ity of INSULIN 100 00:00: [place] unit/mL 00 Medical solution Branch BD INSULIN 2022-0 Yes USE FIVE Uni vers PEN NEEDLE 6-06 TIME A DAY ity of UF 29 gauge 00:00: [place] x 1/2" Ndle 00 Medical Branch HUMALOG 2022-0 Yes [facility] U-100 6-06 ity of INSULIN 100 00:00: [place] unit/mL 00 Medical solution Branch BD INSULIN 2022-0 Yes USE FIVE Uni vers PEN NEEDLE 6-06 TIME A DAY ity of UF 29 gauge 00:00: [place] x 1/2" Ndle 00 Medical Branch HUMALOG 3-0 Yes [facility] U-100 6-06 ity of INSULIN 100 00:00: [place] unit/mL 00 Medical solution Branch BD INSULIN 2022-0 Yes USE FIVE Uni vers PEN NEEDLE 6-06 TIME A DAY ity of UF 29 gauge 00:00: [place] x 1/2" Ndle 00 Medical Branch HUMALOG 3-0 Yes [facility] U-100 6-06 ity of INSULIN 100 00:00: [place] unit/mL 00 Medical solution Branch BD INSULIN 3-0 Yes USE FIVE Uni vers PEN NEEDLE 6-06 TIME A DAY ity of UF 29 gauge 00:00: [place] x 1/2" Ndle 00 Medical Branch HUMALOG 3-0 Yes [facility] U-100 6-06 ity of INSULIN 100 00:00: [place] unit/mL 00 Medical solution Branch BD INSULIN 2022-0 Yes USE FIVE Uni vers PEN NEEDLE 6-06 TIME A DAY ity of UF 29 gauge 00:00: [place] x 1/2" Ndle 00 Medical Branch HUMALOG 2022-0 Yes [facility] U-100 6-06 ity of INSULIN 100 00:00: [place] unit/mL 00 Medical solution Branch BD INSULIN 2022-0 Yes USE FIVE Uni vers PEN NEEDLE 6-06 TIME A DAY ity of UF 29 gauge 00:00: [place] x 1/2" Ndle 00 Medical Branch HUMALOG 2022-0 Yes [facility] U-100 6-06 ity of INSULIN 100 00:00: [place] unit/mL 00 Medical solution Branch BD INSULIN 2022-0 Yes USE FIVE Uni vers PEN NEEDLE 6-06 TIME A DAY ity of UF 29 gauge 00:00: [place] x 1/2" Ndle 00 Medical Branch HUMALOG 2022-0 Yes [facility] U-100 6-06 ity of INSULIN 100 00:00: [place] unit/mL 00 Medical solution Branch BD INSULIN 2022-0 Yes USE FIVE Uni vers PEN NEEDLE 6-06 TIME A DAY ity of UF 29 gauge 00:00: [place] x 1/2" Ndle 00 Medical Branch HUMALOG 2022-0 Yes [facility] U-100 6-06 ity of INSULIN 100 00:00: [place] unit/mL 00 Medical solution Branch BD INSULIN 2022-0 Yes USE FIVE Uni vers PEN NEEDLE 6-06 TIME A DAY ity of UF 29 gauge 00:00: [place] x 1/2" Ndle 00 Medical Branch HUMALOG 2022-0 Yes [facility] U-100 6-06 ity of INSULIN 100 00:00: [place] unit/mL 00 Medical solution Branch BD INSULIN 2022-0 Yes USE FIVE Uni vers PEN NEEDLE 6-06 TIME A DAY ity of UF 29 gauge 00:00: [place] x 1/2" Ndle 00 Medical Branch HUMALOG 2022-0 Yes [facility] U-100 6-06 ity of INSULIN 100 00:00: [place] unit/mL 00 Medical solution Branch BD INSULIN 3-0 Yes USE FIVE Uni vers PEN NEEDLE 6-06 TIME A DAY ity of UF 29 gauge 00:00: [place] x 1/2" Ndle 00 Medical Branch HUMALOG 2022-0 Yes [facility] U-100 6-06 ity of INSULIN 100 00:00: [place] unit/mL 00 Medical solution Branch BD INSULIN 2022-0 Yes USE FIVE Uni vers PEN NEEDLE 6-06 TIME A DAY ity of UF 29 gauge 00:00: [place] x 1/2" Ndle 00 Medical Branch HUMALOG 2022-0 Yes [facility] U-100 6-06 ity of INSULIN 100 00:00: [place] unit/mL 00 Medical solution Branch BD INSULIN 2022-0 Yes USE FIVE Uni vers PEN NEEDLE 6-06 TIME A DAY ity of UF 29 gauge 00:00: [place] x 1/2" Ndle 00 Medical Branch HUMALOG 2022-0 Yes [facility] U-100 6-06 ity of INSULIN 100 00:00: [place] unit/mL 00 Medical solution Branch BD INSULIN 2022-0 Yes USE FIVE Uni vers PEN NEEDLE 6-06 TIME A DAY ity of UF 29 gauge 00:00: [place] x 1/2" Ndle 00 Medical Branch HUMALOG 2022-0 Yes [facility] U-100 6-06 ity of INSULIN 100 00:00: [place] unit/mL 00 Medical solution Branch BD INSULIN 2022-0 Yes USE FIVE Uni vers PEN NEEDLE 6-06 TIME A DAY ity of UF 29 gauge 00:00: [place] x 1/2" Ndle 00 Medical Branch HUMALOG 2022-0 Yes [facility] U-100 6-06 ity of INSULIN 100 00:00: [place] unit/mL 00 Medical solution Branch BD INSULIN 2022-0 Yes USE FIVE Uni vers PEN NEEDLE 6-06 TIME A DAY ity of UF 29 gauge 00:00: [place] x 1/2" Ndle 00 Medical Branch HUMALOG 2022-0 Yes [facility] U-100 6-06 ity of INSULIN 100 00:00: [place] unit/mL 00 Medical solution Branch BD INSULIN 3-0 Yes USE FIVE Uni vers PEN NEEDLE 6-06 TIME A DAY ity of UF 29 gauge 00:00: [place] x 1/2" Ndle 00 Medical Branch HUMALOG 2022-0 Yes [facility] U-100 6-06 ity of INSULIN 100 00:00: [place] unit/mL 00 Medical solution Branch BD INSULIN 3-0 Yes USE FIVE Uni vers PEN NEEDLE 6-06 TIME A DAY ity of UF 29 gauge 00:00: [place] x 1/2" Ndle 00 Medical Branch HUMALOG 2022-0 Yes [facility] U-100 6-06 ity of INSULIN 100 00:00: [place] unit/mL 00 Medical solution Branch BD INSULIN 2022-0 Yes USE FIVE Uni vers PEN NEEDLE 6-06 TIME A DAY ity of UF 29 gauge 00:00: [place] x 1/2" Ndle 00 Medical Branch HUMALOG 2022-0 Yes [facility] U-100 6-06 ity of INSULIN 100 00:00: [place] unit/mL 00 Medical solution Branch BD INSULIN 2022-0 Yes USE FIVE Uni vers PEN NEEDLE 6-06 TIME A DAY ity of UF 29 gauge 00:00: [place] x 1/2" Ndle Medical Branch HUMALOG 2022-0 Yes [facility] U-100 6-06 ity of INSULIN 100 00:00: [place] unit/mL 00 Medical solution Branch BD INSULIN 2022-0 Yes USE FIVE Uni vers PEN NEEDLE 6-06 TIME A DAY ity of UF 29 gauge 00:00: [place] x 1/2" Ndle 00 Medical Branch HUMALOG 2022-0 Yes [facility] U-100 6-06 ity of INSULIN 100 00:00: [place] unit/mL 00 Medical solution Branch BD INSULIN 2022-0 Yes USE FIVE Uni vers PEN NEEDLE 6-06 TIME A DAY ity of UF 29 gauge 00:00: [place] x 1/2" Ndle Medical Branch HUMALOG 2022-0 Yes [facility] U-100 6-06 ity of INSULIN 100 00:00: [place] unit/mL 00 Medical solution Branch BD INSULIN 2022-0 Yes USE FIVE Uni vers PEN NEEDLE 6-06 TIME A DAY ity of UF 29 gauge 00:00: [place] x 1/2" Ndle 00 Medical Branch HUMALOG 2022-0 Yes [facility] U-100 6-06 ity of INSULIN 100 00:00: [place] unit/mL 00 Medical solution Branch BD INSULIN 3-0 Yes USE FIVE Uni vers PEN NEEDLE 6-06 TIME A DAY ity of UF 29 gauge 00:00: [place] x 1/2" Ndle 00 Medical Branch HUMALOG 2022-0 Yes [facility] U-100 6-06 ity of INSULIN 100 00:00: [place] unit/mL 00 Medical solution Branch BD INSULIN 3-0 Yes USE FIVE Uni vers PEN NEEDLE 6-06 TIME A DAY ity of UF 29 gauge 00:00: [place] x 1/2" Ndle 00 Medical Branch HUMALOG 2022-0 Yes [facility] U-100 6-06 ity of INSULIN 100 00:00: [place] unit/mL 00 Medical solution Branch BD INSULIN 2022-0 Yes USE FIVE Uni vers PEN NEEDLE 6-06 TIME A DAY ity of UF 29 gauge 00:00: [place] x 1/2" Ndle 00 Medical Branch HUMALOG 2022-0 Yes [facility] U-100 6-06 ity of INSULIN 100 00:00: [place] unit/mL 00 Medical solution Branch BD INSULIN 2022-0 Yes USE FIVE Uni vers PEN NEEDLE 6-06 TIME A DAY ity of UF 29 gauge 00:00: [place] x 1/2" Ndle 00 Medical Branch HUMALOG 2022-0 Yes [facility] U-100 6-06 ity of INSULIN 100 00:00: [place] unit/mL 00 Medical solution Branch BD INSULIN 2022-0 Yes USE FIVE Uni vers PEN NEEDLE 6-06 TIME A DAY ity of UF 29 gauge 00:00: [place] x 1/2" Ndle 00 Medical Branch HUMALOG 2022-0 Yes [facility] U-100 6-06 ity of INSULIN 100 00:00: [place] unit/mL 00 Medical solution Branch BD INSULIN 2022-0 Yes USE FIVE Uni vers PEN NEEDLE 6-06 TIME A DAY ity of UF 29 gauge 00:00: [place] x 1/2" Ndle 00 Medical Branch HUMALOG 2022-0 Yes [facility] U-100 6-06 ity of INSULIN 100 00:00: [place] unit/mL 00 Medical solution Branch BD INSULIN 2022-0 Yes USE FIVE Uni vers PEN NEEDLE 6-06 TIME A DAY ity of UF 29 gauge 00:00: [place] x 1/2" Ndle 00 Medical Branch HUMALOG 2022-0 Yes [facility] U-100 6-06 ity of INSULIN 100 00:00: [place] unit/mL 00 Medical solution Branch BD INSULIN 2022-0 Yes USE FIVE Uni vers PEN NEEDLE 6-06 TIME A DAY ity of UF 29 gauge 00:00: [place] x 1/2" Ndle 00 Medical Branch HUMALOG 2022-0 Yes [facility] U-100 6-06 ity of INSULIN 100 00:00: [place] unit/mL 00 Medical solution Branch BD INSULIN 2022-0 Yes USE FIVE Uni vers PEN NEEDLE 6-06 TIME A DAY ity of UF 29 gauge 00:00: [place] x 1/2" Ndle 00 Medical Branch HUMALOG 2022-0 Yes [facility] U-100 6-06 ity of INSULIN 100 00:00: [place] unit/mL 00 Medical solution Branch BD INSULIN 2022-0 Yes USE FIVE Uni vers PEN NEEDLE 6-06 TIME A DAY ity of UF 29 gauge 00:00: [place] x 1/2" Ndle 00 Medical Branch HUMALOG 3-0 Yes [facility] U-100 6-06 ity of INSULIN 100 00:00: [place] unit/mL 00 Medical solution Branch BD INSULIN 2023-0 Yes USE FIVE Uni vers PEN NEEDLE 6-06 TIME A DAY ity of UF 29 gauge 00:00: [place] x 1/2" Ndle 00 Medical Branch HUMALOG 3-0 Yes [facility] U-100 6-06 ity of INSULIN 100 00:00: [place] unit/mL 00 Medical solution Branch BD INSULIN 3-0 Yes USE FIVE Uni vers PEN NEEDLE 6-06 TIME A DAY ity of UF 29 gauge 00:00: [place] x 1/2" Ndle 00 Medical Branch HUMALOG 3-0 Yes [facility] U-100 6-06 ity of INSULIN 100 00:00: [place] unit/mL 00 Medical solution Branch BD INSULIN 3-0 Yes USE FIVE Uni vers PEN NEEDLE 6-06 TIME A DAY ity of UF 29 gauge 00:00: [place] x 1/2" Ndle 00 Medical Branch HUMALOG 3-0 Yes [facility] U-100 6-06 ity of INSULIN 100 00:00: [place] unit/mL 00 Medical solution Branch BD INSULIN 3-0 Yes USE FIVE Uni vers PEN NEEDLE 6-06 TIME A DAY ity of UF 29 gauge 00:00: [place] x 1/2" Ndle 00 Medical Branch doxazosin 2023-0 Yes 2mg QD Take [address] [facility] (CARDURA) 2 6-05 tablet (2 [place] MG tablet 14:55: mg total) Med ical 20 by mouth Center nightly. doxazosin 2023-0 Yes 2mg QD Take [address] [facility] (CARDURA) 2 6-05 tablet (2 [place] [facility] MG tablet 14:55: mg total) Med ical 20 by mouth Center nightly. doxazosin 2023-0 Yes 2mg QD Take [address] [facility] (CARDURA) 2 6-05 tablet (2 [place] [facility] MG tablet 14:55: mg total) Med ical 20 by mouth Center nightly. doxazosin 2023-0 Yes 2mg QD Take [address] [facility] (CARDURA) 2 6-05 tablet (2 [place] [facility] MG tablet 14:55: mg total) Med ical 20 by mouth Center nightly. doxazosin 2023-0 Yes 2mg QD Take [address] [facility] (CARDURA) 2 6-05 tablet (2 [place] [facility] MG tablet 14:55: mg total) Med ical 20 by mouth Center nightly. doxazosin 2023-0 Yes 2mg QD Take [address] [facility] (CARDURA) 2 6-05 tablet (2 [place] [facility] MG tablet 14:55: mg total) Med ical 20 by mouth Center nightly. metoclopram 2023-0 Yes 10mg Take [address] [facility] neela HCl 6-05 tablet (10 [facility] (REGLAN) 10 00:00: mg total) M edical MG tablet 00 by mouth 4 Cent er (four) times daily as needed for Nausea. pen needle, 2022-0 Yes Use 5x a [facility] diabetic [facility] 6-05 day for [facility] gauge Ndle 00:00: insulin Medi [place] 00 injections Center . blood sugar 2022-0 Yes Check [facility] diagnostic 6-05 sugar 2x a [place] (glucose 00:00: day and as Med ical blood) Strp 00 needed. Cente r metoclopram 3-0 Yes 10mg Take [address] [facility] neela HCl 6-05 tablet (10 [facility] (REGLAN) 10 00:00: mg total) M edical MG tablet 00 by mouth 4 Cent er (four) times daily as needed for Nausea. pen needle, 2022-0 Yes Use 5x a [facility] diabetic 29 6-05 day for [facility] gauge Ndle 00:00: insulin [facility]i [place] 00 injections Center . blood sugar 2022-0 Yes Check [facility] 6-05 sugar 2x a [place] [facility] (glucose 00:00: day and as Med ical blood) Strp 00 needed. Cente r metoclopram 2023-0 Yes 10mg Take [address] [facility] neela HCl 6-05 tablet (10 [facility] (REGLAN) 10 00:00: mg total) M edical MG tablet 00 by mouth 4 Cent er (four) times daily as needed for Nausea. pen needle, 2022-0 Yes Use 5x a [facility] 29 6-05 day for [facility] gauge Ndle 00:00: insulin [facility]i [place] 00 injections Center . blood sugar 2022-0 Yes Check [facility] 6-05 sugar 2x a [place] [facility] (glucose 00:00: day and as Med ical blood) Strp 00 needed. Cente r metoclopram 2023-0 Yes 10mg Take [address] [facility] neela HCl 6-05 tablet (10 [facility] (REGLAN) 10 00:00: mg total) M edical MG tablet 00 by mouth 4 Cent er (four) times daily as needed for Nausea. pen needle, 0 Yes Use 5x a [facility] diabetic 29 6-05 day for [facility] gauge Ndle 00:00: insulin [facility]i [place] 00 injections Center . blood sugar Yes Check [facility] 6-05 sugar 2x a [place] [facility] (glucose 00:00: day and as Med ical blood) Strp 00 needed. Cente r metoclopram 0 Yes 10mg Take [address] [facility] neela HCl 6-05 tablet (10 [facility] (REGLAN) 10 00:00: mg total) M edical MG tablet 00 by mouth 4 Cent er (four) times daily as needed for Nausea. pen needle, Yes Use 5x a [facility] diabetic 29 6-05 day for [facility] gauge Ndle 00:00: insulin [facility]i [place] 00 injections Center . blood sugar Yes Check [facility] diagnostic 6-05 sugar 2x a [place] [facility] (glucose 00:00: day and as Med ical blood) Strp 00 needed. Cente r metoclopram Yes 10mg Take [address] [facility] neela HCl 6-05 tablet (10 [facility] (REGLAN) 10 00:00: mg total) M edical MG tablet 00 by mouth 4 Cent er (four) times daily as needed for Nausea. pen needle, Yes Use 5x a [facility] diabetic 29 6-05 day for [facility] gauge Ndle 00:00: insulin Medi [place] 00 injections Center . blood sugar Yes Check [facility] 6-05 sugar 2x a [place] [facility] (glucose 00:00: day and as Med ical blood) Strp 00 needed. Cente r insulin 2022- No Inject [facility]u [facility] glargine 6-05 06-08 SQ in the [facility] (Lantus 00:00: 00:00 morning Medica l Solostar 00 :00 and 20u at Cente r U-100 night. Insulin) 100 unit/mL (3 mL) InPn insulin 2022- No 7U Inject 7 [facility] lispro 6-05 06-08 Units [facility] (HumaLOG) 00:00: 00:00 subcutaneo M edical 100 unit/mL 00 :00 usly in Cente r injection the morning and 7 Units at noon and 7 Units in the evening. Inject before meals. insulin 2022- No Inject [facility]u [facility] glargine 6-05 06-08 SQ in the [facility] (Lantus 00:00: 00:00 morning Medica l Solostar 00 :00 and 20u at Cente r U-100 night. Insulin) 100 unit/mL (3 mL) InPn insulin 2022- No 7U Inject 7 [facility]pro 6-05 06-08 [facility] (HumaLOG) 00:00: 00:00 subcutaneo M edical 100 unit/mL 00 :00 usly in Cente r injection the morning and 7 Units at noon and 7 Units in the evening. Inject before meals. insulin 2022- No Inject [facility]u [facility] glargine 6-05 06-08 SQ in the [facility] (Lantus 00:00: 00:00 morning Medica l Solostar 00 :00 and 20u at Cente r U-100 night. Insulin) 100 unit/mL (3 mL) InPn insulin 2022- No 7U Inject 7 [facility] lispro 6-05 06-08 [facility] (HumaLOG) 00:00: 00:00 subcutaneo M edical 100 unit/mL 00 :00 usly in Cente r injection the morning and 7 Units at noon and 7 Units in the evening. Inject before meals. insulin 2022- No Inject [facility]u [facility] glargine 6-05 06-08 SQ in the [facility] (Lantus 00:00: 00:00 morning Medica l Solostar 00 :00 and 20u at Cente r U-100 night. Insulin) 100 unit/mL (3 mL) InPn insulin 2022- No 7U Inject 7 [facility] lispro 6-05 06-08 [facility] (HumaLOG) 00:00: 00:00 subcutaneo M edical 100 unit/mL 00 :00 usly in Cente r injection the morning and 7 Units at noon and 7 Units in the evening. Inject before meals. insulin 2022- No Inject [facility]u [facility] glargine 6-05 06-08 SQ in the [facility] (Lantus 00:00: 00:00 morning Medica l Solostar 00 :00 and 20u at Cente r U-100 night. Insulin) 100 unit/mL (3 mL) InPn insulin 2022- No 7U Inject 7 [facility]pro 6-05 06-08 [facility] (HumaLOG) 00:00: 00:00 subcutaneo M edical 100 unit/mL 00 :00 usly in Cente r injection the morning and 7 Units at noon and 7 Units in the evening. Inject before meals. insulin 2022- No Inject [facility]u [facility] glargine 6-05 06-08 SQ in [facility] (Lantus 00:00: 00:00 morning Medica l Solostar 00 :00 and 20u at Cente r U-100 night. Insulin) 100 unit/mL (3 mL) InPn insulin 2022- No 7U Inject 7 [facility] lispro 6-05 06-08 [facility] (HumaLOG) 00:00: 00:00 subcutaneo M edical 100 unit/mL 00 :00 usly in Cente r injection the morning and 7 Units at noon and 7 Units in the evening. Inject before meals. COLCHICINE Yes [id number] TAKE 1 [facility] 0.6 mg 6-01 TABLET BY ity of tablet 00:00: MOUTH [place] 00 DAILY Medical Branch DOXAZOSIN 2 Yes [id number] TAKE 1 U nivers mg tablet 6-01 TABLET BY ity o f 00:00: MOUTH [place] 00 EVERY Medical NIGHT AT Branch BEDTIME COLCHICINE Yes [id number] TAKE 1 [facility] 0.6 mg 6-01 TABLET BY ity of tablet 00:00: MOUTH [place] 00 DAILY Medical Branch DOXAZOSIN 2 Yes [id number] TAKE 1 U nivers mg tablet 6-01 TABLET BY ity o f 00:00: MOUTH [place] 00 EVERY Medical NIGHT AT Branch BEDTIME COLCHICINE Yes [id number] TAKE 1 [facility] 0.6 mg 6-01 TABLET BY ity of tablet 00:00: MOUTH [place] 00 DAILY Medical Branch DOXAZOSIN 2 2022-0 Yes [id number] TAKE 1 U nivers mg tablet 6-01 TABLET BY ity o f 00:00: MOUTH [place] 00 EVERY Medical NIGHT AT [place] BEDTIME COLCHICINE 2022-0 Yes [id number] TAKE 1 [facility] 0.6 mg 6-01 TABLET BY ity of tablet 00:00: MOUTH DAILY Medical Branch DOXAZOSIN 2 2022-0 Yes [id number] TAKE 1 U nivers mg tablet 6-01 TABLET BY ity o f 00:00: MOUTH [place] 00 EVERY Medical NIGHT AT Branch BEDTIME COLCHICINE 2022-0 Yes [id number] TAKE 1 [facility] 0.6 mg 6-01 TABLET BY ity of tablet 00:00: MOUTH DAILY Medical Branch DOXAZOSIN 2 2022-0 Yes [id number] TAKE 1 U nivers mg tablet 6-01 TABLET BY ity o f 00:00: MOUTH EVERY Medical NIGHT AT [place] BEDTIME COLCHICINE 2022-0 Yes [id number] TAKE 1 [facility] 0.6 mg 6-01 TABLET BY ity of tablet 00:00: MOUTH DAILY Medical Branch DOXAZOSIN 2 2022-0 Yes [id number] TAKE 1 U nivers mg tablet 6-01 TABLET BY ity o f 00:00: MOUTH [place] EVERY Medical NIGHT AT [place] BEDTIME COLCHICINE 2022-0 Yes [id number] TAKE 1 [facility] 0.6 mg 6-01 TABLET BY [facility] of tablet 00:00: MOUTH DAILY [facility] DOXAZOSIN 2 2022-0 Yes [id number] TAKE 1 [facility] mg tablet 6-01 TABLET BY ity o f 00:00: MOUTH [place] 00 EVERY Medical NIGHT AT [facility] BEDTIME COLCHICINE 2022-0 Yes [id number] TAKE 1 [facility] 0.6 mg 6-01 TABLET BY [facility] of tablet 00:00: MOUTH DAILY [facility] DOXAZOSIN 2 2022-0 Yes [id number] TAKE 1 [facility] mg tablet 6-01 TABLET BY ity o f 00:00: MOUTH [place] 00 EVERY Medical NIGHT AT [place] BEDTIME COLCHICINE 2022-0 Yes [id number] TAKE 1 [facility] 0.6 mg 6-01 TABLET BY [facility] of tablet 00:00: MOUTH DAILY [facility] DOXAZOSIN 2 2022-0 Yes [id number] TAKE 1 [facility] mg tablet 6-01 TABLET BY ity o f 00:00: MOUTH [place] 00 EVERY Medical NIGHT AT [facility] BEDTIME DOXAZOSIN 2 2022-0 Yes [id number] TAKE 1 [facility] mg tablet 6-01 TABLET BY [facility]y o f 00:00: MOUTH [place] 00 EVERY Medical NIGHT AT Branch BEDTIME DOXAZOSIN 2 2022-0 Yes [id number] TAKE 1 [facility] mg tablet 6-01 TABLET BY [facility] o f 00:00: MOUTH [place] 00 EVERY Medical NIGHT AT Branch BEDTIME DOXAZOSIN 2 2022-0 Yes [id number] TAKE 1 [facility] mg tablet 6-01 TABLET BY [facility] o f 00:00: MOUTH [place] 00 EVERY Medical NIGHT AT Branch BEDTIME DOXAZOSIN 2 2022-0 Yes [id number] TAKE 1 [facility] mg tablet 6-01 TABLET BY [facility] o f 00:00: MOUTH [place] 00 EVERY Medical NIGHT AT Branch BEDTIME colchicine 2022-0 Yes .6mg QD Take [facility]: (0.6 mg Medical tablet 00 total) by Center mouth in the morning. colchicine 2022-0 Yes .6mg QD Take [facility] mg 00:00: (0.6 mg Medical tablet 00 total) by Center mouth in the morning. colchicine 2022-0 Yes .6mg QD Take [facility] mg 00:00: (0.6 mg Medical tablet 00 total) by Center mouth in the morning. colchicine 2022-0 Yes .6mg QD Take [facility]6 mg 00:00: (0.6 mg Medical tablet 00 total) by Center mouth in the morning. colchicine 2022-0 Yes .6mg QD Take 1 [facility]6 mg 00:00: (0.6 mg Medical tablet 00 total) by Center mouth in the morning. colchicine 2022-0 Yes .6mg QD Take 1 [facility] mg 00:00: (0.6 mg Medical tablet 00 total) by Center mouth in the morning. DOXAZOSIN 2 2022-0 3- No [id number] TAKE 1 [facility] tablet 09-27 TABLET BY [facility] of 00:00: 00:00 MOUTH [place] 00 :00 EVERY Medical NIGHT AT Branch BEDTIME COLCHICINE 3-0 2023- No [id number] TAKE 1 [facility] 0.6 mg 09-27 TABLET BY [facility] of tablet 00:00: 00:00 MOUTH [place] 00 :00 DAILY Medical Branch TIZANIDINE 2023-0 Yes [id number] TAKE 1 [facility] 4 mg tablet 5-24 TABLET BY [facility] of 00:00: MOUTH [place] 00 EVERY 6 Medical HOURS Branch NEEDED FOR MODERATE PAIN TIZANIDINE 2023-0 Yes [id number] TAKE 1 [facility] 4 mg tablet 5-24 TABLET BY [facility] of 00:00: MOUTH [place] 00 EVERY 6 Medical HOURS Branch NEEDED FOR MODERATE PAIN TIZANIDINE 2023-0 Yes [id number] TAKE 1 [facility] 4 mg tablet 5-24 TABLET BY [facility] of 00:00: MOUTH [place] 00 EVERY 6 Medical HOURS Branch NEEDED FOR MODERATE PAIN TIZANIDINE 2023-0 Yes [id number] TAKE 1 [facility] 4 mg tablet 5-24 TABLET BY [facility] of 00:00: MOUTH [place] 00 EVERY 6 Medical HOURS Branch NEEDED FOR MODERATE PAIN TIZANIDINE 2023-0 Yes [id number] TAKE 1 [facility] 4 mg tablet 5-24 TABLET BY [facility] of 00:00: MOUTH [place] 00 EVERY 6 Medical HOURS Branch NEEDED FOR MODERATE PAIN TIZANIDINE 2023-0 Yes [id number] TAKE 1 [facility] 4 mg tablet 5-24 TABLET BY [facility] of 00:00: MOUTH [place] 00 EVERY 6 Medical HOURS Branch NEEDED FOR MODERATE PAIN TIZANIDINE 2023-0 Yes [id number] TAKE 1 [facility] 4 mg tablet 5-24 TABLET BY [facility] of 00:00: MOUTH [place] 00 EVERY 6 Medical HOURS Branch NEEDED FOR MODERATE PAIN TIZANIDINE 2023-0 Yes [id number] TAKE 1 [facility] 4 mg tablet 5-24 TABLET BY [facility] of 00:00: MOUTH [place] 00 EVERY 6 Medical HOURS Branch NEEDED FOR MODERATE PAIN TIZANIDINE 2023-0 Yes [id number] TAKE 1 [facility] 4 mg tablet 5-24 TABLET BY [facility] of 00:00: MOUTH [place] 00 EVERY 6 Medical HOURS Branch NEEDED FOR MODERATE PAIN TIZANIDINE 2023-0 Yes [id number] TAKE 1 [facility] 4 mg tablet 5-24 TABLET BY [facility] of 00:00: MOUTH [place] 00 EVERY 6 Medical HOURS Branch NEEDED FOR MODERATE PAIN TIZANIDINE 2023-0 Yes [id number] TAKE 1 [facility] 4 mg tablet 5-24 TABLET BY [facility] of 00:00: MOUTH [place] 00 EVERY 6 Medical HOURS Branch NEEDED FOR MODERATE PAIN TIZANIDINE 2023-0 Yes [id number] TAKE 1 [facility] 4 mg tablet 5-24 TABLET BY [facility] of 00:00: MOUTH [place] EVERY 6 Medical HOURS Branch NEEDED FOR MODERATE PAIN TIZANIDINE 2023-0 Yes [id number] TAKE 1 [facility] 4 mg tablet 5-24 TABLET BY [facility] of 00:00: MOUTH [place] EVERY 6 Medical HOURS Branch NEEDED FOR MODERATE PAIN TIZANIDINE 2023-0 Yes [id number] TAKE 1 [facility] 4 mg tablet 5-24 TABLET BY [facility] of 00:00: MOUTH EVERY 6 Medical HOURS Branch NEEDED FOR MODERATE PAIN TIZANIDINE 2023-0 Yes [id number] TAKE 1 [facility] 4 mg tablet 5-24 TABLET BY [facility] of 00:00: MOUTH EVERY 6 Medical HOURS Branch NEEDED FOR MODERATE PAIN TIZANIDINE 2023-0 Yes [id number] TAKE 1 [facility] 4 mg tablet 5-24 TABLET BY [facility] of 00:00: MOUTH EVERY 6 Medical HOURS Branch NEEDED FOR MODERATE PAIN TIZANIDINE 2023-0 Yes [id number] TAKE 1 [facility] 4 mg tablet 5-24 TABLET BY [facility] of 00:00: MOUTH [place] EVERY 6 Medical HOURS Branch NEEDED FOR MODERATE PAIN TIZANIDINE 2023-0 Yes [id number] TAKE 1 [facility] 4 mg tablet 5-24 TABLET BY [facility] of 00:00: MOUTH [place] EVERY 6 Medical HOURS Branch NEEDED FOR MODERATE PAIN TIZANIDINE 2023-0 Yes [id number] TAKE 1 [facility] 4 mg tablet 5-24 TABLET BY [facility] of 00:00: MOUTH [place] 00 EVERY 6 Medical HOURS Branch NEEDED FOR MODERATE PAIN TIZANIDINE 2023-0 Yes [id number] TAKE 1 [facility] 4 mg tablet 5-24 TABLET BY [facility] of 00:00: MOUTH [place] 00 EVERY 6 Medical HOURS Branch NEEDED FOR MODERATE PAIN TIZANIDINE 2023-0 Yes [id number] TAKE 1 [facility] 4 mg tablet 5-24 TABLET BY [facility] of 00:00: MOUTH [place] 00 EVERY 6 Medical HOURS Branch NEEDED FOR MODERATE PAIN TIZANIDINE 2023-0 Yes [id number] TAKE 1 [facility] 4 mg tablet 5-24 TABLET BY [facility] of 00:00: MOUTH [place] 00 EVERY 6 Medical HOURS Branch NEEDED FOR MODERATE PAIN TIZANIDINE 2023-0 Yes [id number] TAKE 1 [facility] 4 mg tablet 5-24 TABLET BY [facility] of 00:00: MOUTH [place] EVERY 6 Medical HOURS Branch NEEDED FOR MODERATE PAIN TIZANIDINE 2023-0 Yes [id number] TAKE 1 [facility] 4 mg tablet 5-24 TABLET BY [facility] of 00:00: MOUTH EVERY 6 Medical HOURS Branch NEEDED FOR MODERATE PAIN TIZANIDINE 2023-0 Yes [id number] TAKE 1 [facility] 4 mg tablet 5-24 TABLET BY [facility] of 00:00: MOUTH [place] EVERY 6 Medical HOURS Branch NEEDED FOR MODERATE PAIN TIZANIDINE 2023-0 Yes [id number] TAKE 1 [facility] 4 mg tablet 5-24 TABLET BY [facility] of 00:00: MOUTH EVERY 6 Medical HOURS Branch NEEDED FOR MODERATE PAIN TIZANIDINE 2023-0 Yes [id number] TAKE 1 [facility] 4 mg tablet 5-24 TABLET BY [facility] of 00:00: MOUTH EVERY 6 Medical HOURS Branch NEEDED FOR MODERATE PAIN TIZANIDINE 2023-0 Yes [id number] TAKE 1 [facility] 4 mg tablet 5-24 TABLET BY [facility] of 00:00: MOUTH [place] EVERY 6 Medical HOURS Branch NEEDED FOR MODERATE PAIN TIZANIDINE 2023-0 Yes [id number] TAKE 1 [facility] 4 mg tablet 5-24 TABLET BY [facility] of 00:00: MOUTH EVERY 6 Medical HOURS Branch NEEDED FOR MODERATE PAIN TIZANIDINE 2023-0 Yes [id number] TAKE 1 [facility] 4 mg tablet 5-24 TABLET BY [facility] of 00:00: MOUTH EVERY 6 Medical HOURS Branch NEEDED FOR MODERATE PAIN TIZANIDINE 2023-0 Yes [id number] TAKE 1 [facility] 4 mg tablet 5-24 TABLET BY [facility] of 00:00: MOUTH [place] 00 EVERY 6 Medical HOURS Branch NEEDED FOR MODERATE PAIN TIZANIDINE 2023-0 Yes [id number] TAKE 1 [facility] 4 mg tablet 5-24 TABLET BY [facility] of 00:00: MOUTH [place] 00 EVERY 6 Medical HOURS Branch NEEDED FOR MODERATE PAIN TIZANIDINE 2023-0 Yes [id number] TAKE 1 [facility] 4 mg tablet 5-24 TABLET BY [facility] of 00:00: MOUTH [place] 00 EVERY 6 Medical HOURS Branch NEEDED FOR MODERATE PAIN TIZANIDINE 2023-0 Yes [id number] TAKE 1 [facility] 4 mg tablet 5-24 TABLET BY [facility] of 00:00: MOUTH [place] 00 EVERY 6 Medical HOURS Branch NEEDED FOR MODERATE PAIN TIZANIDINE 2023-0 Yes [id number] TAKE 1 [facility] 4 mg tablet 5-24 TABLET BY [facility] of 00:00: MOUTH [place] 00 EVERY 6 Medical HOURS Branch NEEDED FOR MODERATE PAIN TIZANIDINE 2023-0 Yes [id number] TAKE 1 [facility] 4 mg tablet 5-24 TABLET BY [facility] of 00:00: MOUTH [place] 00 EVERY 6 Medical HOURS Branch NEEDED FOR MODERATE PAIN TIZANIDINE 2023-0 Yes [id number] TAKE 1 [facility] 4 mg tablet 5-24 TABLET BY [facility] of 00:00: MOUTH EVERY 6 Medical HOURS Branch NEEDED FOR MODERATE PAIN TIZANIDINE 2023-0 Yes [id number] TAKE 1 [facility] 4 mg tablet 5-24 TABLET BY [facility] of 00:00: MOUTH [place] 00 EVERY 6 Medical HOURS Branch NEEDED FOR MODERATE PAIN TIZANIDINE 2023-0 Yes [id number] TAKE 1 [facility] 4 mg tablet 5-24 TABLET BY [facility] of 00:00: MOUTH [place] 00 EVERY 6 Medical HOURS Branch NEEDED FOR MODERATE PAIN TIZANIDINE 2023-0 Yes [id number] TAKE 1 [facility] 4 mg tablet 5-24 TABLET BY [facility] of 00:00: MOUTH [place] EVERY 6 Medical HOURS Branch NEEDED FOR MODERATE PAIN TIZANIDINE 2023-0 Yes [id number] TAKE 1 [facility] 4 mg tablet 5-24 TABLET BY [facility] of 00:00: MOUTH [place] 00 EVERY 6 Medical HOURS Branch NEEDED FOR MODERATE PAIN TIZANIDINE 2023-0 Yes [id number] TAKE 1 [facility] 4 mg tablet 5-24 TABLET BY [facility] of 00:00: MOUTH [place] 00 EVERY 6 Medical HOURS Branch NEEDED FOR MODERATE PAIN TIZANIDINE 2023-0 Yes [id number] TAKE 1 [facility] 4 mg tablet 5-24 TABLET BY [facility] of 00:00: MOUTH [place] 00 EVERY 6 Medical HOURS Branch NEEDED FOR MODERATE PAIN TIZANIDINE 2023-0 Yes [id number] TAKE 1 [facility] 4 mg tablet 5-24 TABLET BY [facility] of 00:00: MOUTH [place] 00 EVERY 6 Medical HOURS Branch NEEDED FOR MODERATE PAIN TIZANIDINE 2023-0 Yes [id number] TAKE 1 [facility] 4 mg tablet 5-24 TABLET BY [facility] of 00:00: MOUTH [place] 00 EVERY 6 Medical HOURS Branch NEEDED FOR MODERATE PAIN TIZANIDINE 2023-0 Yes [id number] TAKE 1 [facility] 4 mg tablet 5-24 TABLET BY [facility] of 00:00: MOUTH [place] 00 EVERY 6 Medical HOURS Branch NEEDED FOR MODERATE PAIN TIZANIDINE 2023-0 Yes [id number] TAKE 1 [facility] 4 mg tablet 5-24 TABLET BY [facility] of 00:00: MOUTH [place] 00 EVERY 6 Medical HOURS Branch NEEDED FOR MODERATE PAIN TIZANIDINE 2023-0 Yes [id number] TAKE 1 [facility] 4 mg tablet 5-24 TABLET BY [facility] of 00:00: MOUTH [place] 00 EVERY 6 Medical HOURS Branch NEEDED FOR MODERATE PAIN TIZANIDINE 2023-0 Yes [id number] TAKE 1 [facility] 4 mg tablet 5-24 TABLET BY [facility] of 00:00: MOUTH [place] 00 EVERY 6 Medical HOURS Branch NEEDED FOR MODERATE PAIN TIZANIDINE 2023-0 Yes [id number] TAKE 1 [facility] 4 mg tablet 5-24 TABLET BY [facility] of 00:00: MOUTH [place] 00 EVERY 6 Medical HOURS Branch NEEDED FOR MODERATE PAIN loratadine 2023-0 Yes 10mg QD Take 1 [facility] (10 [facility] 10 mg 00:00: mg total) Medical tablet 00 by mouth Center in the morning. tiZANidine 2023-0 Yes 4mg Take 1 [facility]NAFLEX[facility] 5-[facility] tablet (4 [facility] 4 [facility] tablet 00:00: mg total) M edical 00 by mouth Center every 6 (six) hours as needed. loratadine 2023-0 Yes 10mg QD Take 1 [facility] 5-24 tablet (10 [facility] 10 mg 00:00: mg total) Medical tablet 00 by mouth Center in the morning. tiZANidine 2023-0 Yes 4mg Take 1 [facility]NAFLEX[facility] 5-24 tablet (4 [facility] 4 MG tablet 00:00: mg total) M edical 00 by mouth Center every 6 (six) hours as needed. loratadine 2023-0 Yes 10mg QD Take 1 [facility] 5-24 tablet (10 [facility] 10 mg 00:00: mg total) Medical tablet 00 by mouth Center in the morning. tiZANidine 2023-0 Yes 4mg Take 1 [facility]ZANAFLEX[facility] 5-24 tablet (4 [facility] 4 MG tablet 00:00: mg total) M edical 00 by mouth Center every 6 (six) hours as needed. loratadine 2023-0 Yes 10mg QD Take 1 [facility]CL[facility]IN[facility] 5-24 tablet (10 [facility] 10 mg 00:00: mg total) Medical tablet 00 by mouth Center in the morning. tiZANidine 2023-0 Yes 4mg Take 1 [facility]ZANAFLEX[facility] 5-24 tablet (4 [facility] 4 MG tablet 00:00: mg total) M edical 00 by mouth Center every 6 (six) hours as needed. loratadine 2023-0 Yes 10mg QD Take 1 [facility] 5-24 tablet (10 [facility] 10 mg 00:00: mg total) Medical tablet 00 by mouth Center in the morning. tiZANidine 2023-0 Yes 4mg Take 1 [facility]ZANAFLEX[facility] 5-24 tablet (4 [facility] 4 MG tablet 00:00: mg total) M edical 00 by mouth Center every 6 (six) hours as needed. loratadine 2023-0 Yes 10mg QD Take 1 [facility]CL[facility] 5-24 tablet (10 [facility] 10 mg 00:00: mg total) Medical tablet 00 by mouth Center in the morning. tiZANidine 2023-0 Yes 4mg Take 1 [facility]ZANAFLEX[facility] 5-24 tablet (4 [facility] 4 MG tablet 00:00: mg total) M edical 00 by mouth Center every 6 (six) hours as needed. LORATADINE 2023-0 Yes [id number] TAKE 1 [facility] 10 mg 5-23 TABLET BY [facility] tablet 00:00: MOUTH [place] 00 DAILY Medical Branch LORATADINE 2023-0 Yes [id number] TAKE 1 [facility] 10 mg 5-23 TABLET BY [facility] tablet 00:00: MOUTH [place] DAILY Medical Branch LORATADINE 2023-0 Yes [id number] TAKE 1 [facility] 10 mg 5-23 TABLET BY [facility] tablet 00:00: MOUTH [place] DAILY Medical Branch LORATADINE 2022-0 Yes [id number] TAKE 1 [facility] 10 mg 5-23 TABLET BY [facility] tablet 00:00: MOUTH [place] DAILY Medical Branch LORATADINE 2022-0 Yes [id number] TAKE 1 [facility] 10 mg 5-23 TABLET BY [facility] tablet 00:00: MOUTH [place] DAILY Medical Branch LORATADINE 2022-0 Yes [id number] TAKE 1 [facility] 10 mg 5-23 TABLET BY [facility] of tablet 00:00: MOUTH [place] DAILY Medical Branch LORATADINE 2022-0 Yes [id number] TAKE 1 [facility] 10 mg 5-23 TABLET BY [facility] tablet 00:00: MOUTH [place] DAILY Medical Branch LORATADINE 2022-0 Yes [id number] TAKE 1 [facility] 10 mg 5-23 TABLET BY [facility] tablet 00:00: MOUTH [place] DAILY Medical Branch LORATADINE 2022-0 2022- No [id number] TAKE 1 [facility] 10 mg 5-23 06-21 TABLET BY [facility] of tablet 00:00: 00:00 MOUTH [place] 00 :00 DAILY Medical Branch BRILINTA 90 2022-0 Yes [id number] TAKE 1 [facility] mg tablet 5-22 TABLET BY [facility] o f 00:00: MOUTH IN [place] THE Medical MORNING Branch AND IN THE EVENING BRILINTA 90 2022-0 Yes [id number] TAKE 1 [facility] mg tablet 5-22 TABLET BY [facility] o f 00:00: MOUTH IN [place] THE Medical MORNING Branch AND IN THE EVENING BRILINTA 90 2022-0 Yes [id number] TAKE 1 [facility] tablet 5-22 TABLET BY [facility] o f 00:00: MOUTH IN [place] THE Medical MORNING Branch AND IN THE EVENING BRILINTA 90 2022-0 Yes [id number] TAKE 1 [facility] tablet 5-22 TABLET BY [facility] o f 00:00: MOUTH IN [place] THE Medical MORNING Branch AND IN THE EVENING BRILIN[place] 90 2022-0 Yes [id number] TAKE 1 [facility] mg tablet 5-22 TABLET BY [facility] o f 00:00: MOUTH IN [place] THE Medical MORNING Branch AND IN THE EVENING BRILINTA 90 2023-0 Yes [id number] TAKE 1 [facility] mg tablet 5-22 TABLET BY [facility] o f 00:00: MOUTH IN [place] THE Medical MORNING Branch AND IN THE EVENING BRILIN[place] 90 Yes [id number] TAKE 1 [facility] mg tablet 5-22 TABLET BY [facility] o f 00:00: MOUTH IN [place] THE Medical MORNING Branch AND IN THE EVENING BRILIN[place] 90 Yes [id number] TAKE 1 [facility] mg tablet 5-22 TABLET BY [facility] o f 00:00: MOUTH IN [place] THE Medical MORNING Branch AND IN THE EVENING BRILIN[place] 90 Yes [id number] TAKE 1 [facility] mg tablet 5-22 TABLET BY [facility] o f 00:00: MOUTH IN [place] THE Medical MORNING Branch AND IN THE EVENING HUMULIN Yes ADMINISTER [facility] 70/30 U-100 5-22 40 UNITS ity of KWIKPEN 100 00:00: UNDER THE [place] unit/mL 00 SKIN TWICE Medica l (70-30) DAILY WITH Branch injection MEALS [place] Yes [id number] TAKE 1 [facility] mg tablet 5-22 TABLET BY ity o f 00:00: MOUTH IN [place] THE Medical MORNING Branch AND IN THE EVENING HUMULIN Yes ADMINISTER [facility] 70/30 U-100 5-22 40 UNITS ity of KWIKPEN 100 00:00: UNDER THE [place] unit/mL 00 SKIN TWICE Medica l (70-30) DAILY WITH Branch injection MEALS [place] Yes [id number] TAKE 1 [facility] mg tablet 5-22 TABLET BY [facility] o f 00:00: MOUTH IN [place] THE Medical MORNING Branch AND IN THE EVENING BRILIN[place] 90 Yes [id number] TAKE 1 [facility] mg tablet 5-22 TABLET BY [facility] o f 00:00: MOUTH IN [place] THE Medical MORNING Branch AND IN THE EVENING BRILIN[place] 90 Yes [id number] TAKE 1 [facility] mg tablet 5-22 TABLET BY [facility] o f 00:00: MOUTH IN [place] THE Medical MORNING Branch AND IN THE EVENING BRILIN[place] 90 Yes [id number] TAKE 1 [facility] mg tablet 5-22 TABLET BY [facility] o f 00:00: MOUTH IN [place] THE Medical MORNING Branch AND IN THE EVENING BRILIN[place] 90 0 Yes [id number] TAKE 1 [facility] mg tablet 5-22 TABLET BY [facility] o f 00:00: MOUTH IN [place] 00 THE Medical MORNING Branch AND IN THE EVENING BRILINTA 0 Yes [id number] TAKE 1 [facility] tablet 5-22 TABLET BY [facility] o f 00:00: MOUTH IN [place] 00 THE Medical MORNING Branch AND IN THE EVENING BR[place]IN[place] Yes [id number] TAKE 1 [facility] mg tablet 5-22 TABLET BY [facility] o f 00:00: MOUTH IN [place] 00 THE Medical MORNING Branch AND IN THE EVENING [place] Yes [id number] TAKE 1 [facility] mg tablet 5-22 TABLET BY [facility] o f 00:00: MOUTH IN [place] 00 THE Medical MORNING Branch AND IN THE EVENING [place] Yes [id number] TAKE 1 [facility] mg tablet 5-22 TABLET BY [facility] o f 00:00: MOUTH IN [place] 00 THE Medical MORNING Branch AND IN THE EVENING [place] Yes [id number] TAKE 1 [facility] mg tablet 5-22 TABLET BY [facility] o f 00:00: MOUTH IN [place] 00 THE Medical MORNING Branch AND IN THE EVENING [place] Yes [id number] TAKE 1 [facility] mg tablet 5-22 TABLET BY [facility] o f 00:00: MOUTH IN [place] 00 THE Medical MORNING Branch AND IN THE EVENING BRILIN[place] 0 Yes [id number] TAKE 1 [facility] tablet 5-22 TABLET BY [facility] o f 00:00: MOUTH IN [place] 00 THE Medical MORNING Branch AND IN THE EVENING [place] Yes [id number] TAKE 1 [facility] tablet 5-22 TABLET BY [facility] o f 00:00: MOUTH IN [place] 00 THE Medical MORNING Branch AND IN THE EVENING [place] Yes [id number] TAKE 1 [facility] tablet 5-22 TABLET BY [facility] o f 00:00: MOUTH IN [place] 00 THE Medical MORNING Branch AND IN THE EVENING BRILIN[place] 0 Yes [id number] TAKE 1 [facility] mg tablet 5-22 TABLET BY [facility] o f 00:00: MOUTH IN [place] 00 THE Medical MORNING Branch AND IN THE EVENING [place] Yes [id number] TAKE 1 [facility] mg tablet 5-22 TABLET BY [facility] o f 00:00: MOUTH IN [place] 00 THE Medical MORNING Branch AND IN THE EVENING BR[place] 90 0 Yes [id number] TAKE 1 [facility] mg tablet 5-22 TABLET BY [facility] o f 00:00: MOUTH IN [place] 00 THE Medical MORNING Branch AND IN THE EVENING BR[place]IN[place] 90 0 Yes [id number] TAKE 1 [facility] mg tablet 5-22 TABLET BY [facility] o f 00:00: MOUTH IN [place] 00 THE Medical MORNING Branch AND IN THE EVENING BR[place] 90 0 Yes [id number] TAKE 1 [facility] mg tablet 5-22 TABLET BY [facility] o f 00:00: MOUTH IN [place] 00 THE Medical MORNING Branch AND IN THE EVENING BR[place] 90 0 Yes [id number] TAKE 1 [facility] mg tablet 5-22 TABLET BY [facility] o f 00:00: MOUTH IN [place] 00 THE Medical MORNING Branch AND IN THE EVENING BR[place]IN[place] 90 0 Yes [id number] TAKE 1 [facility] mg tablet 5-22 TABLET BY [facility] o f 00:00: MOUTH IN [place] 00 THE Medical MORNING Branch AND IN THE EVENING BR[place] 90 0 Yes [id number] TAKE 1 [facility] mg tablet 5-22 TABLET BY [facility] o f 00:00: MOUTH IN [place] 00 THE Medical MORNING Branch AND IN THE EVENING BR[place]IN[place] 90 0 Yes [id number] TAKE 1 [facility] mg tablet 5-22 TABLET BY [facility] o f 00:00: MOUTH IN [place] THE Medical MORNING Branch AND IN THE EVENING BRILIN[place] 90 0 Yes [id number] TAKE 1 [facility] mg tablet 5-22 TABLET BY [facility] o f 00:00: MOUTH IN [place] 00 THE Medical MORNING Branch AND IN THE EVENING BR[place]IN[place] 90 0 Yes [id number] TAKE 1 [facility] mg tablet 5-22 TABLET BY [facility] o f 00:00: MOUTH IN [place] 00 THE Medical MORNING Branch AND IN THE EVENING BR[place]IN[place] 90 0 Yes [id number] TAKE 1 [facility] tablet 5-22 TABLET BY [facility] o f 00:00: MOUTH IN [place] 00 THE Medical MORNING Branch AND IN THE EVENING BR[place] 90 0 Yes [id number] TAKE 1 [facility] mg tablet 5-22 TABLET BY [facility] o f 00:00: MOUTH IN [place] 00 THE Medical MORNING Branch AND IN THE EVENING BRILINTA 90 0 Yes [id number] TAKE 1 [facility] tablet 5-22 TABLET BY [facility] o f 00:00: MOUTH IN [place] 00 THE Medical MORNING Branch AND IN THE EVENING BR[place] 90 0 Yes [id number] TAKE 1 [facility] tablet 5-22 TABLET BY [facility] o f 00:00: MOUTH IN [place] 00 THE Medical MORNING Branch AND IN THE EVENING BR[place] 90 0 Yes [id number] TAKE 1 [facility] tablet 5-22 TABLET BY [facility] o f 00:00: MOUTH IN [place] 00 THE Medical MORNING Branch AND IN THE EVENING BR[place]IN[place] 90 0 Yes [id number] TAKE 1 [facility] tablet 5-22 TABLET BY [facility] o f 00:00: MOUTH IN [place] 00 THE Medical MORNING Branch AND IN THE EVENING BR[place]IN[place] 90 0 Yes [id number] TAKE 1 [facility] mg tablet 5-22 TABLET BY [facility] o f 00:00: MOUTH IN [place] 00 THE Medical MORNING Branch AND IN THE EVENING BRILIN[place] 90 0 Yes [id number] TAKE 1 [facility] mg tablet 5-22 TABLET BY [facility] o f 00:00: MOUTH IN [place] 00 THE Medical MORNING Branch AND IN THE EVENING BR[place] 90 0 Yes [id number] TAKE 1 [facility] mg tablet 5-22 TABLET BY [facility] o f 00:00: MOUTH IN [place] 00 THE Medical MORNING Branch AND IN THE EVENING BR[place]IN[place] 90 0 Yes [id number] TAKE 1 [facility] mg tablet 5-22 TABLET BY ity o f 00:00: MOUTH IN [place] 00 THE Medical MORNING Branch AND IN THE EVENING BRILIN[place] 0 Yes [id number] TAKE 1 [facility] mg tablet 5-22 TABLET BY ity o f 00:00: MOUTH IN [place] 00 THE Medical MORNING Branch AND IN THE EVENING BR[place] 90 0 Yes [id number] TAKE 1 [facility] mg tablet 5-22 TABLET BY [facility] o f 00:00: MOUTH IN [place] 00 THE Medical MORNING Branch AND IN THE EVENING BR[place]IN[place] 90 0 Yes [id number] TAKE 1 [facility] mg tablet 5-22 TABLET BY ity o f 00:00: MOUTH IN [place] 00 THE Medical MORNING Branch AND IN THE EVENING BR[place]IN[place] 90 2023-0 Yes [id number] TAKE 1 [facility] mg tablet 5-22 TABLET BY ity o f 00:00: MOUTH IN [place] [address] [facility] MORNING Branch AND IN THE EVENING BRILINTA 90 2022-0 Yes [id number] TAKE 1 [facility] mg tablet 5-22 TABLET BY ity o f 00:00: MOUTH IN [place] [address] [facility] MORNING Branch AND IN THE EVENING BRILIN[place] 90 2022-0 Yes [id number] TAKE 1 [facility] mg tablet 5-22 TABLET BY ity o f 00:00: MOUTH IN [place] [address] [facility] MORNING Branch AND IN THE EVENING Bril[place] 90 2022-0 Yes 90mg Q.5D Take [address] [facility] mg Tab 5-22 tablet (90 [facility] tablet 00:00: mg total) Medica l 00 by mouth Center in the morning and 1 tablet (90 mg total) before bedtime. Br[place] 90 2022-0 Yes 90mg Q.5D Take [address] [facility] mg Tab 5-22 tablet (90 [facility] tablet 00:00: mg total) Medica l 00 by mouth Center in the morning and 1 tablet (90 mg total) before bedtime. [place] 90 2022-0 Yes 90mg Q.5D Take [address] [facility] mg Tab 5-22 tablet (90 [facility] tablet 00:00: mg total) Medica l 00 by mouth Center in the morning and 1 tablet (90 mg total) before bedtime. [place] 90 2022-0 Yes 90mg Q.5D Take [address] [facility] mg Tab 5-22 tablet (90 [facility] tablet 00:00: mg total) Medica l 00 by mouth Center in the morning and 1 tablet (90 mg total) before bedtime. [place] 90 2022-0 Yes 90mg Q.5D Take [address] [facility] mg Tab 5-22 tablet (90 [facility] tablet 00:00: mg total) Medica l 00 by mouth Center in the morning and 1 tablet (90 mg total) before bedtime. [place] 90 2022-0 Yes 90mg Q.5D Take [address] [facility] mg Tab 5-22 tablet (90 [facility] tablet 00:00: mg total) Medica l 00 by mouth Center in the morning and 1 tablet (90 mg total) before bedtime. HUMULIN 0 2022- No ADMINISTER [facility] 70/30 U-100 5- 06- 40 UNITS ity of KWIKPEN 100 00:00: 00:00 UNDER THE [place] unit/mL 00 :00 SKIN TWICE Medica l (70-30) DAILY WITH Branch injection MEALS HUMULIN 2022- No ADMINISTER [facility] vers 70/30 U-100 09-17 40 UNITS ity of KWIKPEN 100 00:00: 00:00 UNDER THE [place] unit/mL 00 :00 SKIN TWICE Medica l (70-30) DAILY WITH Branch injection MEALS HumuLIN 2022- No 40U Q.5D Inject [address] [facility] 70/30 U-100 - 06-05 Units [facility] KwikPen 100 00:00: 00:00 subcutaneo Medical unit/mL 00 :00 usly in Center (7030) the InPn morning insulin pen and 40 Units before bedtime. HumuLIN 2022- No 40U Q.5D Inject [address] [facility] 70/30 U-100 5-22 06-05 Units [facility] KwikPen 100 00:00: 00:00 subcutaneo Medical unit/mL 00 :00 usly in Center (7030) the InPn morning insulin pen and 40 Units before bedtime. HumuLIN 2022-0 2022- No 40U Q.5D Inject [address] [facility] 70/30 U-100 5-22 06-05 Units [facility] KwikPen 100 00:00: 00:00 subcutaneo Medical unit/mL 00 :00 usly in Center (7030) the InPn morning insulin pen and 40 Units before bedtime. HumuLIN 2022- No 40U Q.5D Inject [address] [facility] 70/30 U-100 5-22 06-05 Units [facility] KwikPen 100 00:00: 00:00 subcutaneo Medical unit/mL 00 :00 usly in Center (7030) the InPn morning insulin pen and 40 Units before bedtime. HumuLIN 2022- No 40U Q.5D Inject [address] [facility] 70/30 U-100 5-22 06-05 Units [facility] KwikPen 100 00:00: 00:00 subcutaneo Medical unit/mL 00 :00 usly in Center (7030) the InPn morning insulin pen and 40 Units before bedtime. HumuLIN 2022- No 40U Q.5D Inject [address] [facility] 70/30 U-100 5-22 06-05 Units [facility] KwikPen 100 00:00: 00:00 subcutaneo Medical unit/mL 00 :00 usly in Center (70-30) the InPn morning insulin pen and 40 Units before bedtime. LOVAZA, 0 Yes [id number] TAKE 4 [facility] omega-3-aci 5-05 CAPSULES ity of d ethyl 00:00: BY MOUTH [place] esters, 1 00 DAILY Medical gram Branch capsule LOVAZA, 0 Yes [id number] TAKE 4 [facility] omega-3-aci 5-05 CAPSULES ity of d ethyl 00:00: BY MOUTH [place] esters, 1 00 DAILY Medical gram Branch capsule LOVAZA, 0 Yes [id number] TAKE 4 [facility] omega-3-aci 5-05 CAPSULES ity of d ethyl 00:00: BY MOUTH [place] esters, 00 DAILY Medical gram Branch capsule LOVAZA, 0 Yes [id number] TAKE 4 [facility] omega-3-aci 5-05 CAPSULES ity of d ethyl 00:00: BY MOUTH [place] esters, 1 00 DAILY Medical gram Branch capsule LOVAZA, 0 Yes [id number] TAKE 4 [facility] omega-3-aci 5-05 CAPSULES ity of d ethyl 00:00: BY MOUTH [place] esters, 1 00 DAILY Medical gram Branch capsule LOVAZA, 0 Yes [id number] TAKE 4 [facility] omega-3-aci 5-05 CAPSULES ity of d ethyl 00:00: BY MOUTH [place] esters, 00 DAILY Medical gram Branch capsule LOVAZA, 0 Yes [id number] TAKE 4 [facility] omega-3-aci 5-05 CAPSULES ity of d ethyl 00:00: BY MOUTH [place] esters, 00 DAILY Medical gram Branch capsule LOVAZA, 0 Yes [id number] TAKE 4 [facility] omega-3-aci 5-05 CAPSULES ity of d ethyl 00:00: BY MOUTH [place] esters, 1 00 DAILY Medical gram Branch capsule LOVAZA, 0 Yes [id number] TAKE 4 [facility] omega-3-aci 5-05 CAPSULES ity of d ethyl 00:00: BY MOUTH [place] esters, 1 00 DAILY Medical gram Branch capsule LOVAZA, 0 Yes [id number] TAKE 4 [facility] omega-3-aci 5-05 CAPSULES ity of d ethyl 00:00: BY MOUTH [place] esters, 1 00 DAILY Medical gram Branch capsule LOVAZA, 2022-0 Yes [id number] TAKE 4 [facility] omega-3-aci 5-05 CAPSULES ity of d ethyl 00:00: BY MOUTH [place] esters, 1 00 DAILY Medical gram Branch capsule LOVAZA, 0 Yes [id number] TAKE 4 [facility] omega-3-aci 5-05 CAPSULES ity of d ethyl 00:00: BY MOUTH [place] esters, 1 00 DAILY Medical gram Branch capsule LOVAZA, 0 Yes [id number] TAKE 4 [facility] omega-3-aci 5-05 CAPSULES ity of d ethyl 00:00: BY MOUTH [place] esters, 1 00 DAILY Medical gram Branch capsule LOVAZA, 0 Yes [id number] TAKE 4 [facility] omega-3-aci 5-05 CAPSULES ity of d ethyl 00:00: BY MOUTH [place] esters, 1 00 DAILY Medical gram Branch capsule LOVAZA, 0 Yes [id number] TAKE 4 [facility] omega-3-aci 5-05 CAPSULES ity of d ethyl 00:00: BY MOUTH [place] esters, 1 00 DAILY Medical gram Branch capsule LOVAZA, 0 Yes [id number] TAKE 4 [facility] omega-3-aci 5-05 CAPSULES ity of d ethyl 00:00: BY MOUTH [place] esters, 1 00 DAILY Medical gram Branch capsule LOVAZA, 0 Yes [id number] TAKE 4 [facility] omega-3-aci 5-05 CAPSULES ity of d ethyl 00:00: BY MOUTH [place] esters, 1 00 DAILY Medical gram Branch capsule LOVAZA, 0 Yes [id number] TAKE 4 [facility] omega-3-aci 5-05 CAPSULES ity of d ethyl 00:00: BY MOUTH [place] esters, 1 00 DAILY Medical gram Branch capsule LOVAZA, 0 Yes [id number] TAKE 4 [facility] omega-3-aci 5-05 CAPSULES ity of d ethyl 00:00: BY MOUTH [place] esters, 1 00 DAILY Medical gram Branch capsule LOVAZA, 0 Yes [id number] TAKE 4 [facility] omega-3-aci 5-05 CAPSULES ity of d ethyl 00:00: BY MOUTH [place] esters, 1 00 DAILY Medical gram Branch capsule LOVAZA, 2022-0 Yes [id number] TAKE 4 [facility] omega-3-aci 5-05 CAPSULES ity of d ethyl 00:00: BY MOUTH [place] esters, 1 00 DAILY Medical gram Branch capsule LOVAZA, 0 Yes [id number] TAKE 4 [facility] omega-3-aci 5-05 CAPSULES ity of d ethyl 00:00: BY MOUTH [place] esters, 1 00 DAILY Medical gram Branch capsule LOVAZA, 0 Yes [id number] TAKE 4 [facility] omega-3-aci 5-05 CAPSULES ity of d ethyl 00:00: BY MOUTH [place] esters, 1 00 DAILY Medical gram Branch capsule LOVAZA, 0 Yes [id number] TAKE 4 [facility] omega-3-aci 5-05 CAPSULES ity of d ethyl 00:00: BY MOUTH [place] esters, 1 00 DAILY Medical gram Branch capsule LOVAZA, 0 Yes [id number] TAKE 4 [facility] omega-3-aci 5-05 CAPSULES ity of d ethyl 00:00: BY MOUTH [place] esters, 1 00 DAILY Medical gram Branch capsule LOVAZA, 0 Yes [id number] TAKE 4 [facility] omega-3-aci 5-05 CAPSULES ity of d ethyl 00:00: BY MOUTH [place] esters, 1 00 DAILY Medical gram Branch capsule LOVAZA, 0 Yes [id number] TAKE 4 [facility] omega-3-aci 5-05 CAPSULES ity of d ethyl 00:00: BY MOUTH [place] esters, 1 00 DAILY Medical gram Branch capsule LOVAZA, 2022-0 Yes [id number] TAKE 4 [facility] omega-3-aci 5-05 CAPSULES ity of d ethyl 00:00: BY MOUTH [place] esters, 1 00 DAILY Medical gram Branch capsule LOVAZA, 0 Yes [id number] TAKE 4 [facility] omega-3-aci 5-05 CAPSULES ity of d ethyl 00:00: BY MOUTH [place] esters, 1 00 DAILY Medical gram Branch capsule LOVAZA, 0 Yes [id number] TAKE 4 [facility] omega-3-aci 5-05 CAPSULES ity of d ethyl 00:00: BY MOUTH [place] esters, 1 00 DAILY Medical gram Branch capsule LOVAZA, 2022-0 Yes [id number] TAKE 4 [facility] omega-3-aci 5-05 CAPSULES ity of d ethyl 00:00: BY MOUTH [place] esters, 1 00 DAILY Medical gram Branch capsule LOVAZA, 2022-0 Yes [id number] TAKE 4 [facility] omega-3-aci 5-05 CAPSULES ity of d ethyl 00:00: BY MOUTH [place] esters, 1 00 DAILY Medical gram Branch capsule LOVAZA, 2022-0 Yes [id number] TAKE 4 [facility] omega-3-aci 5-05 CAPSULES ity of d ethyl 00:00: BY MOUTH [place] esters, 1 00 DAILY Medical gram Branch capsule LOVAZA, 2022-0 Yes [id number] TAKE 4 [facility] omega-3-aci 5-05 CAPSULES ity of d ethyl 00:00: BY MOUTH [place] esters, 1 00 DAILY Medical gram Branch capsule LOVAZA, 0 Yes [id number] TAKE 4 [facility] omega-3-aci 5-05 CAPSULES ity of d ethyl 00:00: BY MOUTH [place] esters, 1 00 DAILY Medical gram Branch capsule LOVAZA, 0 Yes [id number] TAKE 4 [facility] omega-3-aci 5-05 CAPSULES ity of d ethyl 00:00: BY MOUTH [place] esters, 1 00 DAILY Medical gram Branch capsule LOVAZA, 2022-0 Yes [id number] TAKE 4 [facility] omega-3-aci 5-05 CAPSULES ity of d ethyl 00:00: BY MOUTH [place] esters, 1 00 DAILY Medical gram Branch capsule LOVAZA, 2022-0 Yes [id number] TAKE 4 [facility] omega-3-aci 5-05 CAPSULES ity of d ethyl 00:00: BY MOUTH [place] esters, 1 00 DAILY Medical gram Branch capsule omega-3 2022-0 Yes 4g QD Take [address] [facility] acid ethyl 5-05 capsules [facility] 00:[facility]: (4 g Medical (LOVAZA) 1 00 total) by Cent er gram mouth in capsule the morning. omega-3 2022-0 Yes 4g QD Take [address] [facility] acid ethyl 5-05 capsules [facility] 00:00: (4 g Medical (LOVAZA) 1 00 total) by Cent er gram mouth in capsule the morning. omega-3 2023-0 Yes 4g QD Take [address] [facility] acid ethyl 5-05 capsules [facility] esters 00:00: (4 g Medical (LOVAZA) 1 00 total) by Cent er gram mouth in capsule the morning. omega-3 2022-0 Yes 4g QD Take [address] [facility] acid ethyl 5-05 capsules [facility] esters 00:00: (4 g Medical (LOVAZA) 1 00 total) by Cent er gram mouth in capsule the morning. omega-3 2022-0 Yes 4g QD Take [address] [facility] acid ethyl 5-05 capsules [facility] esters 00:00: (4 g Medical (LOVAZA) 1 00 total) by Cent er gram mouth in capsule the morning. omega-3 2022-0 Yes 4g QD Take [address] [facility] acid ethyl 5-05 capsules [facility] esters 00:00: (4 g Medical (LOVAZA) 1 00 total) by Cent er gram mouth in capsule the morning. LOVAZA, 2022- No [id number] TAKE 4 [facility] omega-3-aci 5-05 08-23 CAPSULES ity of d ethyl 00:00: 00:00 BY MOUTH [place] esters, 1 00 :00 DAILY Medical gram Branch capsule omega-3 3- No 4g QD Take [address] [facility] acid ethyl 5-05 06-05 capsules [facility] esters 00:00: 00:00 (4 g Medical (LOVAZA) 1 00 :00 total) by Cent er gram mouth in capsule the morning. omega-3 2022-2022- No 4g QD Take [address] [facility] acid ethyl 5-05 06-05 capsules [facility] esters 00:00: 00:00 (4 g Medical (LOVAZA) 1 00 :00 total) by Cent er gram mouth in capsule the morning. omega-3 2022-0 2022- No 4g QD Take [address] [facility] acid ethyl 5-05 06-05 capsules [facility] esters 00:00: 00:00 (4 g Medical (LOVAZA) 1 00 :00 total) by Cent er gram mouth in capsule the morning. omega-3 0 3- No 4g QD Take [address] [facility] acid ethyl 5-05 06-05 capsules [facility] esters 00:00: 00:00 (4 g Medical (LOVAZA) 1 00 :00 total) by Cent er gram mouth in capsule the morning. omega-3 0 2022- No 4g QD Take [address] [facility] acid ethyl 5-05 06-05 capsules [facility] esters 00:00: 00:00 (4 g Medical (LOVAZA) 1 00 :00 total) by Cent er gram mouth in capsule the morning. omega-3 0 2022- No 4g QD Take [address] [facility] acid ethyl 5-05 06-05 capsules [facility] esters 00:00: 00:00 (4 g Medical (LOVAZA) 1 00 :00 total) by Cent er gram mouth in capsule the morning. JARDIANCE 2022-0 Yes [id number] 25mg TAKE 1 [facility] 25 mg Tab 5-04 TABLET BY ity o f 00:00: MOUTH IN [place] [id number] THE Medical MORNING Branch JARDIANCE 2022-0 Yes [id number] 25mg TAKE 1 [facility] 25 mg Tab 5-04 TABLET BY ity o f 00:00: MOUTH IN [place] [address] THE Medical MORNING Branch JARDIANCE 2022-0 Yes [id number] 25mg TAKE 1 [facility] 25 mg Tab 5-04 TABLET BY ity o f 00:00: MOUTH IN [place] THE Medical MORNING Branch JARDIANCE 2022-0 Yes [id number] 25mg TAKE 1 [facility] 25 mg Tab 5-04 TABLET BY ity o f 00:00: MOUTH IN [place] [address] THE Medical MORNING Branch JARDIANCE 2022-0 Yes [id number] 25mg TAKE 1 [facility] 25 mg Tab 5-04 TABLET BY ity o f 00:00: MOUTH IN [place] [address] THE Medical MORNING Branch JARDIANCE 2022-0 Yes [id number] 25mg TAKE 1 [facility] 25 mg Tab 5-04 TABLET BY ity o f 00:00: MOUTH IN [place] 00 THE Medical MORNING Branch JARDIANCE 2022-0 Yes [id number] 25mg TAKE 1 [facility] 25 mg Tab 5-04 TABLET BY ity o f 00:00: MOUTH IN [place] 00 THE Medical MORNING Branch JARDIANCE 2022-0 Yes [id number] 25mg TAKE 1 [facility] 25 mg Tab 5-04 TABLET BY ity o f 00:00: MOUTH IN [place] 00 THE Medical MORNING Branch JARDIANCE 2022-0 Yes [id number] 25mg TAKE 1 [facility] 25 mg Tab 5-04 TABLET BY ity o f 00:00: MOUTH IN [place] 00 THE Medical MORNING Branch JARDIANCE 2022-0 Yes [id number] 25mg TAKE 1 [facility] 25 mg Tab 5-04 TABLET BY ity o f 00:00: MOUTH IN [place] 00 THE Medical MORNING Branch JARDIANCE 2022-0 Yes [id number] 25mg TAKE 1 [facility] 25 mg Tab 5-04 TABLET BY ity o f 00:00: MOUTH IN [place] 00 THE Medical MORNING Branch JARDIANCE 2022-0 Yes [id number] 25mg TAKE 1 [facility] 25 mg Tab 5-04 TABLET BY ity o f 00:00: MOUTH IN [place] 00 THE Medical MORNING Branch JARDIANCE 2022-0 Yes [id number] 25mg TAKE 1 [facility] 25 mg Tab 5-04 TABLET BY ity o f 00:00: MOUTH IN [place] 00 THE Medical MORNING Branch JARDIANCE 2022-0 Yes [id number] 25mg TAKE 1 [facility] 25 mg Tab 5-04 TABLET BY ity o f 00:00: MOUTH IN [place] 00 THE Medical MORNING Branch JARDIANCE 2022-0 Yes [id number] 25mg TAKE 1 [facility] 25 mg Tab 5-04 TABLET BY ity o f 00:00: MOUTH IN [place] 00 THE Medical MORNING Branch JARDIANCE 2022-0 Yes [id number] 25mg TAKE 1 [facility] 25 mg Tab 5-04 TABLET BY ity o f 00:00: MOUTH IN [place] 00 THE Medical MORNING Branch JARDIANCE 2022-0 Yes [id number] 25mg TAKE 1 [facility] 25 mg Tab 5-04 TABLET BY ity o f 00:00: MOUTH IN [place] 00 THE Medical MORNING Branch JARDIANCE 2022-0 Yes [id number] 25mg TAKE 1 [facility] 25 mg Tab 5-04 TABLET BY ity o f 00:00: MOUTH IN [place] 00 THE Medical MORNING Branch JARDIANCE 2022-0 Yes [id number] 25mg TAKE 1 [facility] 25 mg Tab 5-04 TABLET BY ity o f 00:00: MOUTH IN [place] 00 THE Medical MORNING Branch JARDIANCE 2022-0 Yes [id number] 25mg TAKE 1 [facility] 25 mg Tab 5-04 TABLET BY ity o f 00:00: MOUTH IN [place] 00 THE Medical MORNING Branch JARDIANCE 2022-0 Yes [id number] 25mg TAKE 1 [facility] 25 mg Tab 5-04 TABLET BY ity o f 00:00: MOUTH IN [place] 00 THE Medical MORNING Branch JARDIANCE 3-0 Yes [id number] 25mg TAKE 1 [facility] 25 mg Tab 5-04 TABLET BY ity o f 00:00: MOUTH IN [place] 00 THE Medical MORNING Branch JARDIANCE 2022-0 Yes [id number] 25mg TAKE 1 [facility] 25 mg Tab 5-04 TABLET BY ity o f 00:00: MOUTH IN [place] 00 THE Medical MORNING Branch JARDIANCE 3-0 Yes [id number] 25mg TAKE 1 [facility] 25 mg Tab 5-04 TABLET BY ity o f 00:00: MOUTH IN [place] 00 THE Medical MORNING Branch JARDIANCE 2022-0 Yes [id number] 25mg TAKE 1 [facility] 25 mg Tab 5-04 TABLET BY ity o f 00:00: MOUTH IN [place] 00 THE Medical MORNING Branch JARDIANCE 2022-0 Yes [id number] 25mg TAKE 1 [facility] 25 mg Tab 5-04 TABLET BY ity o f 00:00: MOUTH IN [place] 00 THE Medical MORNING Branch JARDIANCE 3-0 Yes [id number] 25mg TAKE 1 [facility] 25 mg Tab 5-04 TABLET BY ity o f 00:00: MOUTH IN [place] 00 THE Medical MORNING Branch JARDIANCE 2022-0 Yes [id number] 25mg TAKE 1 [facility] 25 mg Tab 5-04 TABLET BY ity o f 00:00: MOUTH IN [place] 00 THE Medical MORNING Branch JARDIANCE 3-0 Yes [id number] 25mg TAKE 1 [facility] 25 mg Tab 5-04 TABLET BY ity o f 00:00: MOUTH IN [place] 00 THE Medical MORNING Branch JARDIANCE 3-0 Yes [id number] 25mg TAKE 1 [facility] 25 mg Tab 5-04 TABLET BY ity o f 00:00: MOUTH IN [place] 00 THE Medical MORNING Branch JARDIANCE 3-0 Yes [id number] 25mg TAKE 1 [facility] 25 mg Tab 5-04 TABLET BY ity o f 00:00: MOUTH IN [place] 00 THE Medical MORNING Branch JARDIANCE 3-0 Yes [id number] 25mg TAKE 1 [facility] 25 mg Tab 5-04 TABLET BY ity o f 00:00: MOUTH IN [place] 00 THE Medical MORNING Branch JARDIANCE 2023-0 Yes [id number] 25mg TAKE 1 [facility] 25 mg Tab 5-04 TABLET BY ity o f 00:00: MOUTH IN [place] 00 THE Medical MORNING Branch JARDIANCE 3-0 Yes [id number] 25mg TAKE 1 [facility] 25 mg Tab 5-04 TABLET BY ity o f 00:00: MOUTH IN [place] 00 THE Medical MORNING Branch JARDIANCE 2022-0 Yes [id number] 25mg TAKE 1 [facility] 25 mg Tab 5-04 TABLET BY ity o f 00:00: MOUTH IN [place] 00 THE Medical MORNING Branch JARDIANCE 3-0 Yes [id number] 25mg TAKE 1 [facility] 25 mg Tab 5-04 TABLET BY ity o f 00:00: MOUTH IN [place] 00 THE Medical MORNING Branch JARDIANCE 2022-0 Yes [id number] 25mg TAKE 1 [facility] 25 mg Tab 5-04 TABLET BY ity o f 00:00: MOUTH IN [place] 00 THE Medical MORNING Branch JARDIANCE 2022-0 Yes [id number] 25mg TAKE 1 [facility] 25 mg Tab 5-04 TABLET BY ity o f 00:00: MOUTH IN [place] 00 THE Medical MORNING Branch JARDIANCE 2022-0 Yes [id number] 25mg TAKE 1 [facility] 25 mg Tab 5-04 TABLET BY ity o f 00:00: MOUTH IN [place] 00 THE Medical MORNING Branch JARDIANCE 2022-0 Yes [id number] 25mg TAKE 1 [facility] 25 mg Tab 5-04 TABLET BY ity o f 00:00: MOUTH IN [place] 00 THE Medical MORNING Branch JARDIANCE 2022-0 Yes [id number] 25mg TAKE 1 [facility] 25 mg Tab 5-04 TABLET BY ity o f 00:00: MOUTH IN [place] 00 THE Medical MORNING Branch JARDIANCE 3-0 Yes [id number] 25mg TAKE 1 [facility] 25 mg Tab 5-04 TABLET BY ity o f 00:00: MOUTH IN [place] 00 THE Medical MORNING Branch JARDIANCE 3-0 Yes [id number] 25mg TAKE 1 [facility] 25 mg Tab 5-04 TABLET BY ity o f 00:00: MOUTH IN [place] 00 THE Medical MORNING Branch JARDIANCE 2022-0 Yes [id number] 25mg TAKE 1 [facility] 25 mg Tab 5-04 TABLET BY ity o f 00:00: MOUTH IN [place] 00 THE Medical MORNING Branch JARDIANCE 2022-0 Yes [id number] 25mg TAKE 1 [facility] 25 mg Tab 5-04 TABLET BY ity o f 00:00: MOUTH IN [place] THE Medical MORNING Branch JARDIANCE 3-0 Yes [id number] 25mg TAKE 1 [facility] 25 mg Tab 5-04 TABLET BY ity o f 00:00: MOUTH IN [place] THE Medical MORNING Branch JARDIANCE 2022-0 Yes [id number] 25mg TAKE 1 [facility] 25 mg Tab 5-04 TABLET BY ity o f 00:00: MOUTH IN [place] 00 THE Medical MORNING Branch JARDIANCE 3-0 Yes [id number] 25mg TAKE 1 [facility] 25 mg Tab 5-04 TABLET BY ity o f 00:00: MOUTH IN [place] THE Medical MORNING Branch JARDIANCE 2022-0 Yes [id number] 25mg TAKE 1 [facility] 25 mg Tab 5-04 TABLET BY ity o f 00:00: MOUTH IN [place] THE Medical MORNING Branch JARDIANCE 2022-0 Yes [id number] 25mg TAKE 1 [facility] 25 mg Tab 5-04 TABLET BY ity o f 00:00: MOUTH IN [place] THE Medical MORNING Branch JARDIANCE 2022-0 Yes [id number] 25mg TAKE 1 [facility] 25 mg Tab 5-04 TABLET BY ity o f 00:00: MOUTH IN [place] THE Medical MORNING Branch JARDIANCE 2022-0 Yes [id number] 25mg TAKE 1 [facility] 25 mg Tab 5-04 TABLET BY ity o f 00:00: MOUTH IN [place] THE Medical MORNING Branch JARDIANCE 2022-0 Yes [id number] 25mg TAKE 1 [facility] 25 mg Tab 5-04 TABLET BY ity o f 00:00: MOUTH IN [place] THE Medical MORNING Branch JARDIANCE 3-0 Yes [id number] 25mg TAKE 1 [facility] 25 mg Tab 5-04 TABLET BY ity o f 00:00: MOUTH IN [place] THE Medical MORNING Branch JARDIANCE 2022-0 Yes [id number] 25mg TAKE 1 [facility] 25 mg Tab 5-04 TABLET BY ity o f 00:00: MOUTH IN [place] THE Medical MORNING Branch JARDIANCE 2022-0 Yes [id number] 25mg TAKE 1 [facility] 25 mg Tab 5-04 TABLET BY ity o f 00:00: MOUTH IN [place] 00 THE Medical MORNING Branch JARDIANCE 2022-0 Yes [id number] 25mg TAKE 1 [facility] 25 mg Tab 5-04 TABLET BY ity o f 00:00: MOUTH IN [place] THE Medical MORNING Branch JARDIANCE 2022-0 Yes [id number] 25mg TAKE 1 [facility] 25 mg Tab 5-04 TABLET BY ity o f 00:00: MOUTH IN [place] THE Medical MORNING Branch empaglifloz 2022-0 2023- No 25mg QD Take [address] [facility] in 08-3005 tablet (25 [facility] ([facility]) 00:00: 00:00 mg total) Medical 25 mg 00 :00 by mouth Center tablet every morning. empaglifloz 2022-0 2023- No 25mg QD Take [address] [facility] in 08-30- tablet (25 [facility] (JARDIANCE) 00:00: 00:00 mg total) Medical 25 mg 00 :00 by mouth Center tablet every morning. empaglifloz 3-0 2023- No 25mg QD Take [address] [facility] in 08-30 tablet (25 [facility] (JARDIANCE) 00:00: 00:00 mg total) Medical 25 mg 00 :00 by mouth Center tablet every morning. empaglifloz 2022-0 2023- No 25mg QD Take [address] [facility] in 08-30 tablet (25 [facility] (JARDIANCE) 00:00: 00:00 mg total) Medical 25 mg 00 :00 by mouth Center tablet every morning. empaglifloz 3-0 2023- No 25mg QD Take [address] [facility] in 08-30-05 tablet (25 [facility] (JARDIANCE) 00:00: 00:00 mg total) Medical 25 mg 00 :00 by mouth Center tablet every morning. empaglifloz 3-0 2023- No 25mg QD Take [address] [facility] in 08-3005 tablet (25 [facility] (JARDIANCE) 00:00: 00:00 mg total) Medical 25 mg 00 :00 by mouth Center tablet every morning. DOXAZOSIN 2 0 Yes TAKE 1 [facility] mg tablet 5-03 TABLET BY ity o f 00:00: MOUTH EVERY Medical NIGHT AT Branch BEDTIME COLCHICINE 2022-0 Yes [id number] TAKE 1 [facility] 0.6 mg 5-03 TABLET BY ity of tablet 00:00: MOUTH DAILY Medical Branch DOXAZOSIN 2 2022-0 Yes TAKE 1 [facility] mg tablet 5-03 TABLET BY ity o f 00:00: MOUTH [place] 00 EVERY Medical NIGHT AT Branch BEDTIME COLCHICINE 2022-0 Yes [id number] TAKE 1 [facility] 0.6 mg 5-03 TABLET BY ity of tablet 00:00: MOUTH [place] 00 DAILY Medical Branch DOXAZOSIN 2 2022-0 Yes TAKE 1 [facility] mg tablet 5-03 TABLET BY ity o f 00:00: MOUTH [place] 00 EVERY Medical NIGHT AT Branch BEDTIME COLCHICINE 2022-0 Yes [id number] TAKE 1 [facility] 0.6 mg 5-03 TABLET BY ity of tablet 00:00: MOUTH [place] 00 DAILY Medical Branch DOXAZOSIN 2 0 Yes TAKE 1 [facility] mg tablet 5-03 TABLET BY ity o f 00:00: MOUTH [place] 00 EVERY Medical NIGHT AT Branch BEDTIME COLCHICINE 2022-0 Yes [id number] TAKE 1 [facility] 0.6 mg 5-03 TABLET BY ity of tablet 00:00: MOUTH [place] 00 DAILY Medical Branch DOXAZOSIN 2 2022-0 Yes TAKE 1 [facility] mg tablet 5-03 TABLET BY ity o f 00:00: MOUTH [place] 00 EVERY Medical NIGHT AT Branch BEDTIME COLCHICINE 2022-0 Yes [id number] TAKE 1 [facility] 0.6 mg 5-03 TABLET BY ity of tablet 00:00: MOUTH [place] 00 DAILY Medical Branch DOXAZOSIN 2 2022-0 Yes TAKE 1 [facility] mg tablet 5-03 TABLET BY ity o f 00:00: MOUTH [place] 00 EVERY Medical NIGHT AT Branch BEDTIME COLCHICINE 2022-0 Yes [id number] TAKE 1 [facility] 0.6 mg 5-03 TABLET BY ity of tablet 00:00: MOUTH [place] 00 DAILY Medical Branch DOXAZOSIN 2 2022-0 Yes TAKE 1 [facility] mg tablet 5-03 TABLET BY ity o f 00:00: MOUTH [place] 00 EVERY Medical NIGHT AT Branch BEDTIME COLCHICINE 2022-0 Yes [id number] TAKE 1 [facility] 0.6 mg 5-03 TABLET BY ity of tablet 00:00: MOUTH [place] 00 DAILY Medical Branch DOXAZOSIN 2 2022-0 Yes TAKE 1 [facility] mg tablet 5-03 TABLET BY ity o f 00:00: MOUTH [place] 00 EVERY Medical NIGHT AT Branch BEDTIME COLCHICINE 2022-0 Yes [id number] TAKE 1 [facility] 0.6 mg 5-03 TABLET BY ity of tablet 00:00: MOUTH [place] 00 DAILY Medical Branch DOXAZOSIN 2 2022-0 Yes TAKE 1 [facility] mg tablet 5-03 TABLET BY ity o f 00:00: MOUTH 00 EVERY Medical NIGHT AT Branch BEDTIME COLCHICINE 2022-0 Yes [id number] TAKE 1 [facility] 0.6 mg 5-03 TABLET BY ity of tablet 00:00: MOUTH DAILY Medical Branch DOXAZOSIN 2 2022-0 Yes TAKE 1 [facility] mg tablet 5-03 TABLET BY ity o f 00:00: MOUTH 00 EVERY Medical NIGHT AT Branch BEDTIME COLCHICINE 2022-0 Yes [id number] TAKE 1 [facility] 0.6 mg 5-03 TABLET BY ity of tablet 00:00: MOUTH DAILY Medical Branch DOXAZOSIN 2 2022-0 Yes TAKE 1 [facility] mg tablet 5-03 TABLET BY ity o f 00:00: MOUTH EVERY Medical NIGHT AT Branch BEDTIME COLCHICINE 2022-0 Yes [id number] TAKE 1 [facility] 0.6 mg 5-03 TABLET BY ity of tablet 00:00: MOUTH DAILY Medical Branch DOXAZOSIN 2 2022-0 Yes TAKE 1 [facility] mg tablet 5-03 TABLET BY ity o f 00:00: MOUTH 00 EVERY Medical NIGHT AT Branch BEDTIME COLCHICINE 2022-0 Yes [id number] TAKE 1 [facility] 0.6 mg 5-03 TABLET BY ity of tablet 00:00: MOUTH DAILY Medical Branch DOXAZOSIN 2 2022-0 Yes TAKE 1 [facility] mg tablet 5-03 TABLET BY ity o f 00:00: MOUTH EVERY Medical NIGHT AT Branch BEDTIME COLCHICINE 2022-0 Yes [id number] TAKE 1 [facility] 0.6 mg 5-03 TABLET BY ity of tablet 00:00: MOUTH DAILY Medical Branch DOXAZOSIN 2 2022-0 Yes TAKE 1 [facility] mg tablet 5-03 TABLET BY ity o f 00:00: MOUTH 00 EVERY Medical NIGHT AT Branch BEDTIME COLCHICINE 2022-0 Yes [id number] TAKE 1 [facility] 0.6 mg 5-03 TABLET BY ity of tablet 00:00: MOUTH DAILY Medical Branch DOXAZOSIN 2 2022-0 Yes TAKE 1 [facility] ers mg tablet 5-03 TABLET BY ity o f 00:00: MOUTH [place] 00 EVERY Medical NIGHT AT Branch BEDTIME COLCHICINE 2022-0 Yes [id number] TAKE 1 [facility] 0.6 mg - TABLET BY ity of tablet 00:00: MOUTH [place] DAILY Medical Branch DOXAZOSIN 2 0 2022- No TAKE 1 [facility] vers mg tablet 08-29 TABLET BY ity of 00:00: 00:00 MOUTH [place] 00 :00 EVERY Medical NIGHT AT [place] BEDTIME COLCHICINE 2022-0 2022- No [id number] TAKE 1 [facility] 0.6 mg -09-27 TABLET BY ity of tablet 00:00: 00:00 [facility] 00 : DAILY Medical Branch LORATADINE 0 Yes [id number] TAKE 1 U nivers 10 mg 4-27 TABLET BY ity of tablet 00:00: [facility] DAILY Medical Branch ATORVASTATI 0 Yes [id number] 10mg TAKE 1 [facility] N 10 mg 4-27 TABLET BY ity of tablet 00:00: [facility] [place] [facility] Medical Branch LORATADINE 0 Yes [id number] TAKE 1 U nivers 10 mg 4-27 TABLET BY ity of tablet 00:00: [facility] DAILY Medical Branch ATORVASTATI 0 Yes [id number] 10mg TAKE 1 Univers N 10 mg 4-27 TABLET BY ity of tablet 00:00: [facility] AT [place] [facility] Branch LORATADINE 0 Yes [id number] TAKE 1 U nivers 10 mg 4-27 TABLET BY ity of tablet 00:00: [facility] DAILY Medical Branch ATORVASTATI 0 Yes [id number] 10mg TAKE 1 [facility] N 10 mg 4-27 TABLET BY ity of tablet 00:00: [facility] [place] [facility] Branch LORATADINE 0 Yes [id number] TAKE 1 U nivers 10 mg 4-27 TABLET BY ity of tablet 00:00: [facility] DAILY Medical Branch ATORVASTATI 0 Yes [id number] 10mg TAKE 1 [facility] N 10 mg 4-27 TABLET BY ity of tablet 00:00: [facility] [place] [facility] Medical Branch LORATADINE 0 Yes [id number] TAKE 1 U nivers 10 mg 4-27 TABLET BY ity of tablet 00:00: [facility] DAILY Medical Branch ATORVASTATI 0 Yes [id number] 10mg TAKE 1 [facility] N 10 mg 4-27 TABLET BY ity of tablet 00:00: M[facility]TH AT [place] [facility] LORATADINE 0 Yes [id number] TAKE 1 U nivers 10 mg 4-27 TABLET BY ity of tablet 00:00: MOUTH [place] DAILY Medical Branch ATORVASTATI 0 Yes [id number] 10mg TAKE 1 [facility] N 10 mg 4-27 TABLET BY ity of tablet 00:00: MOUTH AT [place] [facility] LORATADINE 0 Yes [id number] TAKE 1 U nivers 10 mg 4-27 TABLET BY ity of tablet 00:00: MOUTH [place] DAILY Medical Branch ATORVASTATI 0 Yes [id number] 10mg TAKE 1 [facility] N 10 mg 4-27 TABLET BY ity of tablet 00:00: MOUTH AT [place] [facility] Medical Branch LORATADINE Yes [id number] TAKE 1 U nivers 10 mg 4-27 TABLET BY ity of tablet 00:00: MOUTH [place] DAILY [facility] ATORVASTATI 0 Yes [id number] 10mg TAKE 1 [facility] N 10 mg 4-27 TABLET BY ity of tablet 00:00: MOUTH AT [place] [facility] LORATADINE 0 Yes [id number] TAKE 1 U nivers 10 mg 4-27 TABLET BY ity of tablet 00:00: MOUTH [place] DAILY [facility] ATORVASTATI 0 Yes [id number] 10mg TAKE 1 [facility] N 10 mg 4-27 TABLET BY [facility]y of tablet 00:00: MOUTH AT [place] [facility] LORATADINE 0 Yes [id number] TAKE 1 U nivers 10 mg 4-27 TABLET BY ity of tablet 00:00: MOUTH [place] DAILY [facility] ATORVASTATI 0 Yes [id number] 10mg TAKE 1 [facility] N 10 mg 4-27 TABLET BY ity of tablet 00:00: MOUTH AT [place] [facility] Medical Branch LORATADINE 0 Yes [id number] TAKE 1 [facility] nivers 10 mg 4-27 TABLET BY ity of tablet 00:00: MOUTH [place] DAILY Medical Branch ATORVASTATI 0 Yes [id number] 10mg TAKE 1 [facility] 10 mg 4-27 TABLET BY [facility] of tablet 00:00: MOUTH AT [place] [facility] LORATADINE Yes [id number] TAKE 1 [facility] nivers 10 mg 4-27 TABLET BY ity of tablet 00:00: MOUTH [place] DAILY [facility] Yes [id number] 10mg TAKE 1 [facility] N 10 mg 4-27 TABLET BY ity of tablet 00:00: MOUTH AT [place] [facility] LORATADINE Yes [id number] TAKE 1 [facility] 10 mg 4-27 TABLET BY ity of tablet 00:00: MOUTH [place] DAILY [facility] Yes [id number] 10mg TAKE 1 [facility] 10 mg 4-27 TABLET BY [facility] of tablet 00:00: MOUTH AT [place] [facility] Yes [id number] 10mg TAKE 1 [facility] N 10 mg 4-27 TABLET BY [facility] of tablet 00:00: MOUTH AT [place] [facility] Yes [id number] 10mg TAKE 1 [facility] 10 mg 4-27 TABLET BY it[facility] of tablet 00:00: MOUTH AT [place] [facility] Yes [id number] 10mg TAKE 1 [facility] 10 mg 4-27 TABLET BY [facility] of tablet 00:00: MOUTH AT [place] [facility] Yes [id number] 10mg TAKE 1 [facility] 10 mg 4-27 TABLET BY ity of tablet 00:00: MOUTH AT [place] [facility] Yes [id number] 10mg TAKE 1 [facility] 10 mg 4-27 TABLET BY it[facility] of tablet 00:00: MOUTH AT [place] [facility] Yes [id number] 10mg TAKE 1 [facility] 10 mg 4-27 TABLET BY [facility]y of tablet 00:00: MOUTH AT [place] [facility] Yes [id number] 10mg TAKE 1 [facility] N 10 mg 4-27 TABLET BY it[facility] of tablet 00:00: MOUTH AT [address] [facility] Yes [id number] 10mg TAKE 1 [facility] 10 mg 4-27 TABLET BY [facility] of tablet 00:00: MOUTH AT [address] 0 Yes [id number] 10mg TAKE 1 [facility] N 10 mg 4-27 TABLET BY ity of tablet 00:00: MOUTH AT [place] [facility] ATORVASTATI 0 Yes [id number] 10mg TAKE 1 [facility] N 10 mg 4-27 TABLET BY ity of tablet 00:00: MOUTH AT [address] ATORVASTATI 0 Yes [id number] 10mg TAKE 1 [facility] N 10 mg 4-27 TABLET BY [facility] of tablet 00:00: MOUTH AT [address] ATORVASTATI 0 Yes [id number] 10mg TAKE 1 [facility] N 10 mg 4-27 TABLET BY [facility] of tablet 00:00: MOUTH AT [address] ATORVASTATI Yes [id number] 10mg TAKE 1 [facility] 10 mg 4-27 TABLET BY ity of tablet 00:00: MOUTH AT [address] ATORVASTATI Yes [id number] 10mg TAKE 1 [facility] 10 mg 4-27 TABLET BY [facility] of tablet 00:00: MOUTH AT [address] atorvastati Yes 10mg QD Take [address] [facility] (LIPITOR) 4-27 tablet (10 Adrianne kes 10 MG 00:00: mg total) Medical tablet 00 by mouth Center nightly. atorvastati 0 Yes 10mg QD Take [address] [facility] (LIPITOR) 4-27 tablet (10 Adrianne kes 10 MG 00:00: mg total) Medical tablet 00 by mouth Center nightly. atorvastati 0 Yes 10mg QD Take [address] [facility] (LIPITOR) 4-27 tablet (10 Adrianne kes 10 MG 00:00: mg total) Medical tablet 00 by mouth Center nightly. atorvastati 0 Yes 10mg QD Take [address] [facility] (LIPITOR) 4-27 tablet (10 Adrianne kes 10 MG 00:00: mg total) Medical tablet 00 by mouth Center nightly. atorvastati 0 Yes 10mg QD Take [address] [facility] (LIPITOR) 4-27 tablet (10 Adrianne kes 10 MG 00:00: mg total) Medical tablet 00 by mouth Center nightly. atorvastati 0 Yes 10mg QD Take [address] [facility] (LIPITOR) -27 tablet (10 Adrianne kes 10 MG 00:00: mg total) Medical tablet 00 by mouth Center nightly. ATORVASTATI 3-0 2022- No [id number] 10mg TAKE 1 [facility] 10 mg 4-27 07-05 TABLET BY ity of tablet 00:00: 00:00 MOUTH AT [place] 00 :00 BEDTIME Medical Branch LORATADINE 2022-0 2022- No [id number] TAKE 1 [facility] 10 mg 4-27 05-23 TABLET BY ity of tablet 00:00: 00:00 MOUTH [place] 00 :00 DAILY Medical Branch lisinopriL 2023-0 Yes 20mg QD Take [facility] 4-19 tablet (20 Adrianne kes ESTRIL) 20 00:00: mg total) Me dical MG tablet 00 by mouth Center in the morning. lisinopriL 2023-0 Yes 20mg QD Take [facility] 4-19 tablet (20 Adrianne kes ESTRIL) 20 00:00: mg total) Me dical MG tablet 00 by mouth Center in the morning. lisinopriL 2023-0 Yes 20mg QD Take [facility] 4-19 tablet (20 Adrianne kes ESTRIL) 20 00:00: mg total) Me dical MG tablet 00 by mouth Center in the morning. lisinopriL 2023-0 Yes 20mg QD Take [facility] 4-19 tablet (20 Adrianne kes ESTRIL) 20 00:00: mg total) Me dical MG tablet 00 by mouth Center in the morning. lisinopriL 2023-0 Yes 20mg QD Take 1 [facility] 4-19 tablet (20 Adrianne kes ESTRIL) 20 00:00: mg total) Me dical MG tablet 00 by mouth Center in the morning. lisinopriL 2023-0 Yes 20mg QD Take 1 [facility] ([facility] 4-19 tablet (20 Adrianne kes ESTRIL) 20 00:00: mg total) Me dical MG tablet 00 by mouth Center in the morning. metoclopram 2023-0 Yes [id number] 10mg Take 1 [facility] neela HCl 4-18 tablet by ity of (REGLAN) 10 00:00: mouth [place] mg tablet 00 before Medical meals and Branch at bedtime. metoclopram 2023-0 Yes [id number] 10mg Take 1 [facility] neela HCl 4-18 tablet by ity of (REGLAN) 10 00:00: mouth [place] mg tablet 00 before Medical meals and Branch at bedtime. metoclopram 2023-0 Yes [id number] 10mg Take 1 [facility] neela HCl 4-18 tablet by ity of (REGLAN) 10 00:00: mouth [place] mg tablet 00 before Medical meals and Branch at bedtime. metoclopram 2023-0 Yes [id number] 10mg Take 1 [facility] neela HCl 4-18 tablet by ity of (REGLAN) 10 00:00: mouth [place] mg tablet 00 before Medical meals and Branch at bedtime. metoclopram 2023-0 Yes [id number] 10mg Take 1 [facility] neela HCl 4-18 tablet by ity of (REGLAN) 10 00:00: mouth [place] mg tablet 00 before Medical meals and Branch at bedtime. metoclopram 2023-0 Yes [id number] 10mg Take 1 [facility] neela HCl 4-18 tablet by ity of (REGLAN) 10 00:00: mouth [place] mg tablet 00 before Medical meals and Branch at bedtime. metoclopram 2023-0 Yes [id number] 10mg Take 1 [facility] neela HCl 4-18 tablet by ity of (REGLAN) 10 00:00: mouth [place] mg tablet 00 before Medical meals and Branch at bedtime. metoclopram 2023-0 Yes [id number] 10mg Take 1 [facility] neela HCl 4-18 tablet by ity of (REGLAN) 10 00:00: mouth [place] mg tablet 00 before Medical meals and Branch at bedtime. metoclopram 2023-0 Yes [id number] 10mg Take 1 [facility] neela HCl 4-18 tablet by ity of (REGLAN) 10 00:00: mouth [place] mg tablet 00 before Medical meals and Branch at bedtime. metoclopram 2023-0 Yes [id number] 10mg Take 1 [facility] neela HCl 4-18 tablet by ity of (REGLAN) 10 00:00: mouth [place] mg tablet 00 before Medical meals and Branch at bedtime. metoclopram 2023-0 Yes [id number] 10mg Take 1 [facility] neela HCl 4-18 tablet by ity of (REGLAN) 10 00:00: mouth [place] mg tablet 00 before Medical meals and Branch at bedtime. metoclopram 2023-0 Yes [id number] 10mg Take 1 [facility] neela HCl 4-18 tablet by ity of (REGLAN) 10 00:00: mouth [place] mg tablet 00 before Medical meals and Branch at bedtime. metoclopram 2023-0 Yes [id number] 10mg Take 1 [facility] neela HCl 4-18 tablet by ity of (REGLAN) 10 00:00: mouth [place] mg tablet 00 before Medical meals and Branch at bedtime. metoclopram 2023-0 Yes [id number] 10mg Take 1 [facility] neela HCl 4-18 tablet by ity of (REGLAN) 10 00:00: mouth [place] mg tablet 00 before Medical meals and Branch at bedtime. metoclopram 2023-0 Yes [id number] 10mg Take 1 [facility] neela HCl 4-18 tablet by ity of (REGLAN) 10 00:00: mouth [place] mg tablet 00 before Medical meals and Branch at bedtime. metoclopram 2023-0 Yes [id number] 10mg Take 1 [facility] neela HCl 4-18 tablet by ity of (REGLAN) 10 00:00: mouth [place] mg tablet 00 before Medical meals and Branch at bedtime. metoclopram 2023-0 Yes [id number] 10mg Take 1 [facility] neela HCl 4-18 tablet by ity of (REGLAN) 10 00:00: mouth [place] mg tablet 00 before Medical meals and Branch at bedtime. metoclopram 2023-0 Yes [id number] 10mg Take 1 [facility] neela HCl 4-18 tablet by ity of (REGLAN) 10 00:00: mouth [place] mg tablet 00 before Medical meals and Branch at bedtime. metoclopram 2023-0 Yes [id number] 10mg Take 1 [facility] neela HCl 4-18 tablet by ity of (REGLAN) 10 00:00: mouth [place] mg tablet 00 before Medical meals and Branch at bedtime. metoclopram 2023-0 Yes [id number] 10mg Take 1 [facility] neela HCl 4-18 tablet by ity of (REGLAN) 10 00:00: mouth [place] mg tablet 00 before Medical meals and Branch at bedtime. metoclopram 2023-0 Yes [id number] 10mg Take 1 [facility] neela HCl 4-18 tablet by ity of (REGLAN) 10 00:00: mouth [place] mg tablet 00 before Medical meals and Branch at bedtime. metoclopram 2023-0 Yes [id number] 10mg Take 1 [facility] neela HCl 4-18 tablet by ity of (REGLAN) 10 00:00: mouth [place] mg tablet 00 before Medical meals and Branch at bedtime. metoclopram 2023-0 Yes [id number] 10mg Take 1 [facility] neela HCl 4-18 tablet by ity of (REGLAN) 10 00:00: mouth [place] mg tablet 00 before Medical meals and Branch at bedtime. metoclopram 2023-0 Yes [id number] 10mg Take 1 [facility] neela HCl 4-18 tablet by ity of (REGLAN) 10 00:00: mouth [place] mg tablet 00 before Medical meals and Branch at bedtime. metoclopram 2023-0 Yes [id number] 10mg Take 1 [facility] neela HCl 4-18 tablet by ity of (REGLAN) 10 00:00: mouth [place] mg tablet 00 before Medical meals and Branch at bedtime. metoclopram 2023-0 Yes [id number] 10mg Take 1 [facility] neela HCl 4-18 tablet by ity of (REGLAN) 10 00:00: mouth [place] mg tablet 00 before Medical meals and Branch at bedtime. metoclopram 2023-0 Yes [id number] 10mg Take 1 [facility] neela HCl 4-18 tablet by ity of (REGLAN) 10 00:00: mouth [place] mg tablet 00 before Medical meals and Branch at bedtime. metoclopram 2023-0 Yes [id number] 10mg Take 1 [facility] neela HCl 4-18 tablet by ity of (REGLAN) 10 00:00: mouth [place] mg tablet 00 before Medical meals and Branch at bedtime. metoclopram 2023-0 Yes [id number] 10mg Take 1 [facility] neela HCl 4-18 tablet by ity of (REGLAN) 10 00:00: mouth [place] mg tablet 00 before Medical meals and Branch at bedtime. metoclopram 2023-0 Yes [id number] 10mg Take 1 [facility] neela HCl 4-18 tablet by ity of (REGLAN) 10 00:00: mouth [place] mg tablet 00 before Medical meals and Branch at bedtime. metoclopram 2023-0 Yes [id number] 10mg Take 1 [facility] neela HCl 4-18 tablet by ity of (REGLAN) 10 00:00: mouth [place] mg tablet 00 before Medical meals and Branch at bedtime. metoclopram 2023-0 Yes [id number] 10mg Take 1 [facility] neela HCl 4-18 tablet by ity of (REGLAN) 10 00:00: mouth [place] mg tablet 00 before Medical meals and Branch at bedtime. metoclopram 2023-0 Yes [id number] 10mg Take 1 [facility] neela HCl 4-18 tablet by ity of (REGLAN) 10 00:00: mouth [place] mg tablet 00 before Medical meals and Branch at bedtime. metoclopram 2023-0 Yes [id number] 10mg Take 1 [facility] neela HCl 4-18 tablet by ity of (REGLAN) 10 00:00: mouth [place] mg tablet 00 before Medical meals and Branch at bedtime. metoclopram 2023-0 Yes [id number] 10mg Take 1 [facility] neela HCl 4-18 tablet by ity of (REGLAN) 10 00:00: mouth [place] mg tablet 00 before Medical meals and Branch at bedtime. metoclopram 2023-0 Yes [id number] 10mg Take 1 [facility] neela HCl 4-18 tablet by ity of (REGLAN) 10 00:00: mouth [place] mg tablet 00 before Medical meals and Branch at bedtime. metoclopram 2023-0 Yes [id number] 10mg Take 1 [facility] neela HCl 4-18 tablet by ity of (REGLAN) 10 00:00: mouth [place] mg tablet 00 before Medical meals and Branch at bedtime. metoclopram 2023-0 Yes [id number] 10mg Take 1 [facility] neela HCl 4-18 tablet by ity of (REGLAN) 10 00:00: mouth [place] mg tablet 00 before Medical meals and Branch at bedtime. metoclopram 2023-0 Yes [id number] 10mg Take 1 [facility] neela HCl 4-18 tablet by ity of (REGLAN) 10 00:00: mouth [place] mg tablet 00 before Medical meals and Branch at bedtime. metoclopram 2023-0 Yes [id number] 10mg Take 1 [facility] neela HCl 4-18 tablet by ity of (REGLAN) 10 00:00: mouth [place] mg tablet 00 before Medical meals and Branch at bedtime. metoclopram 2023-0 Yes [id number] 10mg Take 1 [facility] neela HCl 4-18 tablet by ity of (REGLAN) 10 00:00: mouth [place] mg tablet 00 before Medical meals and Branch at bedtime. metoclopram 2023-0 Yes [id number] 10mg Take 1 [facility] neela HCl 4-18 tablet by ity of (REGLAN) 10 00:00: mouth [place] mg tablet 00 before Medical meals and Branch at bedtime. metoclopram 2023-0 Yes [id number] 10mg Take 1 [facility] neela HCl 4-18 tablet by ity of (REGLAN) 10 00:00: mouth [place] mg tablet 00 before Medical meals and Branch at bedtime. metoclopram 2023-0 Yes [id number] 10mg Take 1 [facility] neela HCl 4-18 tablet by ity of (REGLAN) 10 00:00: mouth [place] mg tablet 00 before Medical meals and Branch at bedtime. metoclopram 2023-0 Yes [id number] 10mg Take 1 [facility] neela HCl 4-18 tablet by ity of (REGLAN) 10 00:00: mouth [place] mg tablet 00 before Medical meals and Branch at bedtime. metoclopram 2023-0 Yes [id number] 10mg Take 1 [facility] neela HCl 4-18 tablet by ity of (REGLAN) 10 00:00: mouth [place] mg tablet 00 before Medical meals and Branch at bedtime. metoclopram 2023-0 Yes [id number] 10mg Take 1 [facility] neela HCl 4-18 tablet by ity of (REGLAN) 10 00:00: mouth [place] mg tablet 00 before Medical meals and Branch at bedtime. metoclopram 2023-0 Yes [id number] 10mg Take 1 [facility] neela HCl 4-18 tablet by ity of (REGLAN) 10 00:00: mouth [place] mg tablet 00 before Medical meals and Branch at bedtime. metoclopram 2023-0 Yes [id number] 10mg Take 1 [facility] neela HCl 4-18 tablet by ity of (REGLAN) 10 00:00: mouth [place] mg tablet 00 before Medical meals and Branch at bedtime. metoclopram 2023-0 Yes [id number] 10mg Take 1 [facility] neela HCl 4-18 tablet by ity of (REGLAN) 10 00:00: mouth [place] mg tablet 00 before Medical meals and Branch at bedtime. metoclopram 2023-0 Yes [id number] 10mg Take 1 [facility] neela HCl 4-18 tablet by ity of (REGLAN) 10 00:00: mouth [place] mg tablet 00 before Medical meals and Branch at bedtime. metoclopram 2023-0 Yes [id number] 10mg Take 1 [facility] neela HCl 4-18 tablet by ity of (REGLAN) 10 00:00: mouth [place] mg tablet 00 before Medical meals and Branch at bedtime. metoclopram 2023-0 Yes [id number] 10mg Take 1 [facility] neela HCl 4-18 tablet by ity of (REGLAN) 10 00:00: mouth [place] mg tablet 00 before Medical meals and Branch at bedtime. metoclopram 2023-0 Yes [id number] 10mg Take 1 [facility]ela HCl 4-18 tablet by ity of (REGLAN) 10 00:00: mouth [place] mg tablet 00 before Medical meals and Branch at bedtime. metoclopram 2023-0 Yes [id number] 10mg Take 1 [facility] neela HCl 4-18 tablet by ity of (REGLAN) 10 00:00: mouth [place] mg tablet 00 before Medical meals and Branch at bedtime. metoclopram 2023-0 Yes [id number] 10mg Take 1 [facility] ne[facility] HCl 4-18 tablet by ity of (REGLAN) 10 00:00: mouth [place] mg tablet 00 before Medical meals and Branch at bedtime. metoclopram 2023-0 Yes [id number] 10mg Take 1 [facility] HCl 4-18 tablet by ity of (REGLAN) 10 00:00: mouth [place] mg tablet 00 before Medical meals and Branch at bedtime. metoclopram 2023-0 Yes [id number] 10mg Take 1 [facility] ne[facility] HCl 4-18 tablet by ity of (REGLAN) 10 00:00: mouth [place] mg tablet 00 before Medical meals and Branch at bedtime. metoclopram 2023-0 Yes [id number] 10mg Take 1 [facility] HCl 4-18 tablet by ity of (REGLAN) 10 00:00: mouth [place] mg tablet 00 before Medical meals and Branch at bedtime. metoclopram 2023-0 Yes [id number] 10mg Take 1 [facility] HCl 4-18 tablet by ity of (REGLAN) 10 00:00: mouth [place] mg tablet 00 before Medical meals and Branch at bedtime. metoclopram 2023-0 Yes [id number] 10mg Take 1 [facility] HCl 4-18 tablet by ity of (REGLAN) 10 00:00: mouth [place] mg tablet 00 before Medical meals and Branch at bedtime. metoclopram 2023-0 Yes [id number] 10mg Take 1 [facility] HCl 4-18 tablet by ity of (REGLAN) 10 00:00: mouth [place] mg tablet 00 before Medical meals and Branch at bedtime. metoclopram 2023-0 Yes [id number] 10mg Take 1 [facility] HCl 4-18 tablet by ity of (REGLAN) 10 00:00: mouth [place] mg tablet 00 before Medical meals and Branch at bedtime. metoclopram 2023-0 Yes [id number] 10mg Take 1 [facility] HCl 4-18 tablet by ity of (REGLAN) 10 00:00: mouth [place] mg tablet 00 before Medical meals and Branch at bedtime. metoclopram 2023-0 Yes [id number] 10mg Take 1 [facility] HCl 4-18 tablet by ity of (REGLAN) 10 00:00: mouth [place] mg tablet 00 before Medical meals and Branch at bedtime. metoclopram 2023-0 Yes [id number] 10mg Take 1 [facility] HCl 4-18 tablet by ity of (REGLAN) 10 00:00: mouth [place] mg tablet 00 before Medical meals and Branch at bedtime. metoclopram 2023-0 Yes [id number] 10mg Take 1 [facility] ne[facility] HCl 4-18 tablet by ity of (REGLAN) 10 00:00: mouth [place] mg tablet 00 before Medical meals and Branch at bedtime. metoclopram 2023-0 Yes [id number] 10mg Take 1 [facility] neela HCl 4-18 tablet by ity of (REGLAN) 10 00:00: mouth [place] mg tablet 00 before Medical meals and Branch at bedtime. metoclopram 2023-0 2023- No 10mg Q.25D Take [address] [facility]ela HCl 4-18 06-05 tablet (10 [facility] (REGLAN) 10 00:00: 00:00 mg total) Medical MG tablet 00 :00 by mouth Center in the morning and 1 tablet (10 mg total) at noon and 1 tablet (10 mg total) in the evening and 1 tablet (10 mg total) before bedtime. metoclopram 2023-0 2023- No 10mg Q.25D Take [address] [facility] [address] neela HCl 4-18 06-05 tablet (10 [facility] (REGLAN) 10 00:00: 00:00 mg total) Medical MG tablet 00 :00 by mouth Center in the morning and 1 tablet (10 mg total) at noon and 1 tablet (10 mg total) in the evening and 1 tablet (10 mg total) before bedtime. metoclopram 2023-0 2023- No 10mg Q.25D Take [address] [facility] [address] [facility]ela HCl 4-18 06-05 tablet (10 [facility] (REGLAN) 10 00:00: 00:00 mg total) Medical MG tablet 00 :00 by mouth Center in the morning and 1 tablet (10 mg total) at noon and 1 tablet (10 mg total) in the evening and 1 tablet (10 mg total) before bedtime. metoclopram 2023-0 2023- No 10mg Q.25D Take [address] [facility] [address] [facility]ela HCl 4-18 06-05 tablet (10 [facility] (REGLAN) 10 00:00: 00:00 mg total) Medical MG tablet 00 :00 by mouth Center in the morning and 1 tablet (10 mg total) at noon and 1 tablet (10 mg total) in the evening and 1 tablet (10 mg total) before bedtime. metoclopram 2023-0 2023- No 10mg Q.25D Take [address] [facility] [address] [facility]ela HCl 4-18 06-05 tablet (10 [facility] (REGLAN) 10 00:00: 00:00 mg total) Medical MG tablet 00 :00 by mouth Center in the morning and 1 tablet (10 mg total) at noon and 1 tablet (10 mg total) in the evening and 1 tablet (10 mg total) before bedtime. metoclopram 2023-0 2023- No 10mg Q.25D Take [address] [facility] [address] [facility]ela HCl 4-18 06-05 tablet (10 [facility] (REGLAN) 10 00:00: 00:00 mg total) Medical MG tablet 00 :00 by mouth Center in the morning and 1 tablet (10 mg total) at noon and 1 tablet (10 mg total) in the evening and 1 tablet (10 mg total) before bedtime. fenofibrate 2023-0 Yes [id number] 54mg TAKE 1 [facility] 54 mg 4-09 TABLET BY [facility] of tablet 00:00: MOUTH IN [place] [address] THE Medical MORNING Branch fenofibrate 2023-0 Yes [id number] 54mg TAKE 1 [facility] 54 mg 4-09 TABLET BY ity of tablet 00:00: MOUTH IN [place] 00 THE Medical MORNING Branch fenofibrate 3-0 Yes [id number] 54mg TAKE 1 [facility] 54 mg 4-09 TABLET BY ity of tablet 00:00: MOUTH IN [place] 00 THE Medical MORNING Branch fenofibrate 3-0 Yes [id number] 54mg TAKE 1 [facility] 54 mg 4-09 TABLET BY ity of tablet 00:00: MOUTH IN [place] 00 THE Medical MORNING Branch fenofibrate 2022-0 Yes [id number] 54mg TAKE 1 [facility] 54 mg 4-09 TABLET BY ity of tablet 00:00: MOUTH IN [place] 00 THE Medical MORNING Branch fenofibrate 3-0 Yes [id number] 54mg TAKE 1 [facility] 54 mg 4-09 TABLET BY ity of tablet 00:00: MOUTH IN [place] 00 THE Medical MORNING Branch fenofibrate 3-0 Yes [id number] 54mg TAKE 1 [facility] 54 mg 4-09 TABLET BY ity of tablet 00:00: MOUTH IN [place] 00 THE Medical MORNING Branch fenofibrate 3-0 Yes [id number] 54mg TAKE 1 [facility] 54 mg 4-09 TABLET BY ity of tablet 00:00: MOUTH IN [place] 00 THE Medical MORNING Branch fenofibrate 3-0 Yes [id number] 54mg TAKE 1 [facility] 54 mg 4-09 TABLET BY ity of tablet 00:00: MOUTH IN [place] 00 THE Medical MORNING Branch fenofibrate 3-0 Yes [id number] 54mg TAKE 1 [facility] 54 mg 4-09 TABLET BY ity of tablet 00:00: MOUTH IN [place] 00 THE Medical MORNING Branch fenofibrate 3-0 Yes [id number] 54mg TAKE 1 [facility] 54 mg 4-09 TABLET BY ity of tablet 00:00: MOUTH IN [place] 00 THE Medical MORNING Branch fenofibrate 3-0 Yes [id number] 54mg TAKE 1 [facility] 54 mg 4-09 TABLET BY ity of tablet 00:00: MOUTH IN [place] 00 THE Medical MORNING Branch fenofibrate 3-0 Yes [id number] 54mg TAKE 1 [facility] 54 mg 4-09 TABLET BY ity of tablet 00:00: MOUTH IN [place] 00 THE Medical MORNING Branch fenofibrate 3-0 Yes [id number] 54mg TAKE 1 [facility] 54 mg 4-09 TABLET BY ity of tablet 00:00: MOUTH IN [place] 00 THE Medical MORNING Branch fenofibrate 3-0 Yes [id number] 54mg TAKE 1 [facility] 54 mg 4-09 TABLET BY ity of tablet 00:00: MOUTH IN [place] 00 THE Medical MORNING Branch fenofibrate 3-0 Yes [id number] 54mg TAKE 1 [facility] 54 mg 4-09 TABLET BY ity of tablet 00:00: MOUTH IN [place] 00 THE Medical MORNING Branch fenofibrate 3-0 Yes [id number] 54mg TAKE 1 [facility] 54 mg 4-09 TABLET BY ity of tablet 00:00: MOUTH IN [place] 00 THE Medical MORNING Branch fenofibrate 3-0 Yes [id number] 54mg TAKE 1 [facility] 54 mg 4-09 TABLET BY ity of tablet 00:00: MOUTH IN [place] 00 THE Medical MORNING Branch fenofibrate 3-0 Yes [id number] 54mg TAKE 1 [facility] 54 mg 4-09 TABLET BY ity of tablet 00:00: MOUTH IN [place] 00 THE Medical MORNING Branch fenofibrate 3-0 Yes [id number] 54mg TAKE 1 [facility] 54 mg 4-09 TABLET BY ity of tablet 00:00: MOUTH IN [place] 00 THE Medical MORNING Branch fenofibrate 3-0 Yes [id number] 54mg TAKE 1 [facility] 54 mg 4-09 TABLET BY ity of tablet 00:00: MOUTH IN [place] 00 THE Medical MORNING Branch fenofibrate 3-0 Yes [id number] 54mg TAKE 1 [facility] 54 mg 4-09 TABLET BY ity of tablet 00:00: MOUTH IN [place] 00 THE Medical MORNING Branch fenofibrate 3-0 Yes [id number] 54mg TAKE 1 [facility] 54 mg 4-09 TABLET BY ity of tablet 00:00: MOUTH IN [place] 00 THE Medical MORNING Branch fenofibrate 3-0 Yes [id number] 54mg TAKE 1 [facility] 54 mg 4-09 TABLET BY ity of tablet 00:00: MOUTH IN [place] 00 THE Medical MORNING Branch fenofibrate 3-0 Yes [id number] 54mg TAKE 1 [facility] 54 mg 4-09 TABLET BY ity of tablet 00:00: MOUTH IN [place] 00 THE Medical MORNING Branch fenofibrate 3-0 Yes [id number] 54mg TAKE 1 [facility] 54 mg 4-09 TABLET BY ity of tablet 00:00: MOUTH IN [place] 00 THE Medical MORNING Branch fenofibrate 3-0 Yes [id number] 54mg TAKE 1 [facility] 54 mg 4-09 TABLET BY ity of tablet 00:00: MOUTH IN [place] 00 THE Medical MORNING Branch fenofibrate 3-0 Yes [id number] 54mg TAKE 1 [facility] 54 mg 4-09 TABLET BY ity of tablet 00:00: MOUTH IN [place] 00 THE Medical MORNING Branch fenofibrate 3-0 Yes [id number] 54mg TAKE 1 [facility] 54 mg 4-09 TABLET BY [facility]y of tablet 00:00: MOUTH IN [place] 00 THE Medical MORNING Branch fenofibrate 2022-0 Yes [id number] 54mg TAKE 1 [facility] 54 mg 4-09 TABLET BY [facility]y of tablet 00:00: MOUTH IN [place] 00 THE Medical MORNING Branch fenofibrate 3-0 Yes [id number] 54mg TAKE 1 [facility] 54 mg 4-09 TABLET BY ity of tablet 00:00: MOUTH IN [place] 00 THE Medical MORNING Branch fenofibrate 3-0 Yes [id number] 54mg TAKE 1 [facility] 54 mg 4-09 TABLET BY ity of tablet 00:00: MOUTH IN [place] 00 THE Medical MORNING Branch fenofibrate 3-0 Yes [id number] 54mg TAKE 1 [facility] 54 mg 4-09 TABLET BY ity of tablet 00:00: MOUTH IN [place] 00 THE Medical MORNING Branch fenofibrate 3-0 Yes [id number] 54mg TAKE 1 [facility] 54 mg 4-09 TABLET BY [facility]y of tablet 00:00: MOUTH IN [place] 00 THE Medical MORNING Branch fenofibrate 3-0 Yes [id number] 54mg TAKE 1 [facility] 54 mg 4-09 TABLET BY [facility]y of tablet 00:00: MOUTH IN [place] 00 THE Medical MORNING Branch fenofibrate 3-0 Yes [id number] 54mg TAKE 1 [facility] 54 mg 4-09 TABLET BY ity of tablet 00:00: MOUTH IN [place] 00 THE Medical MORNING Branch fenofibrate 3-0 Yes [id number] 54mg TAKE 1 [facility] 54 mg 4-09 TABLET BY ity of tablet 00:00: MOUTH IN [place] 00 THE Medical MORNING Branch fenofibrate 3-0 Yes [id number] 54mg TAKE 1 [facility] 54 mg 4-09 TABLET BY [facility] tablet 00:00: MOUTH IN [place] 00 THE Medical MORNING Branch fenofibrate 3-0 Yes [id number] 54mg TAKE 1 [facility] 54 mg 4-09 TABLET BY ity of tablet 00:00: MOUTH IN [place] 00 THE Medical MORNING Branch fenofibrate 2023-0 Yes [id number] 54mg TAKE 1 [facility] 54 mg 4-09 TABLET BY ity of tablet 00:00: MOUTH IN [place] 00 THE Medical MORNING Branch fenofibrate 2023-0 Yes [id number] 54mg TAKE 1 [facility] 54 mg 4-09 TABLET BY ity of tablet 00:00: MOUTH IN [place] 00 THE Medical MORNING Branch fenofibrate 2023-0 Yes [id number] 54mg TAKE 1 [facility] 54 mg 4-09 TABLET BY ity of tablet 00:00: MOUTH IN [place] 00 THE Medical MORNING Branch fenofibrate 2023-0 Yes [id number] 54mg TAKE 1 [facility] 54 mg 4-09 TABLET BY [facility]y of tablet 00:00: MOUTH IN [place] 00 THE Medical MORNING Branch fenofibrate 2023-0 Yes [id number] 54mg TAKE 1 [facility] 54 mg 4-09 TABLET BY [facility] of tablet 00:00: MOUTH IN [place] 00 THE Medical MORNING Branch fenofibrate 2023-0 Yes 54mg QD Take [address] [facility] ([facility]) 4-09 tablet (54 [facility] 54 MG 00:00: mg total) Medical tablet 00 by mouth [facility] every morning. fenofibrate 2023-0 Yes 54mg QD Take [address] [facility] ([facility]) 4-09 tablet (54 [facility] 54 MG 00:00: mg total) Medical tablet 00 by mouth Center every morning. fenofibrate 2023-0 Yes 54mg QD Take [address] [facility] ([facility]) 4-09 tablet (54 [facility] 54 MG 00:00: mg total) Medical tablet 00 by mouth Center every morning. fenofibrate 2023-0 Yes 54mg QD Take [address] [facility] ([facility]) 4-09 tablet (54 [facility] 54 MG 00:00: mg total) Medical tablet 00 by mouth Center every morning. fenofibrate 2023-0 Yes 54mg QD Take [address] [facility] ([facility]) 4-09 tablet (54 [facility] 54 MG 00:00: mg total) Medical tablet 00 by mouth Center every morning. fenofibrate 2023-0 Yes 54mg QD Take [address] [facility] ([facility]) 4-09 tablet (54 [facility] 54 MG 00:00: mg total) Medical tablet 00 by mouth Center every morning. fenofibrate 2023-0 2023- No [id number] 54mg TAKE 1 [facility] 54 mg 4-09 - TABLET BY ity of tablet 00:00: 00:00 MOUTH IN 00 :00 THE Medical MORNING Branch COLCHICINE 3-0 Yes [id number] TAKE 1 [facility] 0.6 mg 4-05 TABLET BY ity of tablet 00:00: [facility] DAILY Medical Branch AMLODIPINE 3-0 Yes [id number] 5mg TAKE 1 [facility] 5 mg tablet 4-05 TABLET BY ity of 00:00: [facility] DAILY Medical Branch COLCHICINE 2023-0 Yes [id number] TAKE 1 [facility] 0.6 mg 4-05 TABLET BY ity of tablet 00:00: [facility] DAILY Medical Branch AMLODIPINE 3-0 Yes [id number] 5mg TAKE 1 [facility] 5 mg tablet 4-05 TABLET BY ity of 00:00: [facility] DAILY Medical Branch COLCHICINE 3-0 Yes [id number] TAKE 1 [facility] 0.6 mg 4-05 TABLET BY ity of tablet 00:00: [facility] DAILY Medical Branch AMLODIPINE 3-0 Yes [id number] 5mg TAKE 1 [facility] 5 mg tablet 4-05 TABLET BY ity of 00:00: [facility] DAILY Medical Branch COLCHICINE 3-0 Yes [id number] TAKE 1 [facility] 0.6 mg 4-05 TABLET BY ity of tablet 00:00: [facility] DAILY Medical Branch AMLODIPINE 3-0 Yes [id number] 5mg TAKE 1 [facility] 5 mg tablet 4-05 TABLET BY ity of 00:00: [facility] DAILY Medical Branch COLCHICINE 3-0 Yes [id number] TAKE 1 [facility] 0.6 mg 4-05 TABLET BY ity of tablet 00:00: [facility] DAILY Medical Branch AMLODIPINE 2023-0 Yes [id number] 5mg TAKE 1 [facility] 5 mg tablet 4-05 TABLET BY ity of 00:00: [facility] DAILY Medical Branch COLCHICINE 2023-0 Yes [id number] TAKE 1 [facility] 0.6 mg 4-05 TABLET BY ity of tablet 00:00: [facility] DAILY Medical Branch AMLODIPINE 2023-0 Yes [id number] 5mg TAKE 1 [facility] 5 mg tablet 4-05 TABLET BY ity of 00:00: [facility] DAILY Medical Branch COLCHICINE 2023-0 Yes [id number] TAKE 1 [facility] 0.6 mg 4-05 TABLET BY ity of tablet 00:00: DAILY Medical Branch AMLODIPINE 2023-0 Yes [id number] TAKE 1 [facility] 5 mg tablet 4-05 TABLET BY ity of 00:00: DAILY Medical Branch COLCHICINE 2023-0 Yes [id number] TAKE 1 [facility] 0.6 mg 4-05 TABLET BY ity of tablet 00:00: DAILY Medical Branch AMLODIPINE 2023-0 Yes [id number] 5mg TAKE 1 [facility] 5 mg tablet 4-05 TABLET BY ity of 00:00: DAILY Medical Branch COLCHICINE 2023-0 Yes [id number] TAKE 1 [facility] 0.6 mg 4-05 TABLET BY [facility] of tablet 00:00: DAILY Medical Branch AMLODIPINE 2023-0 Yes [id number] 5mg TAKE 1 [facility] 5 mg tablet 4-05 TABLET BY ity of 00:00: DAILY Medical Branch COLCHICINE 2023-0 Yes [id number] TAKE 1 [facility] 0.6 mg 4-05 TABLET BY ity of tablet 00:00: DAILY Medical Branch AMLODIPINE 2023-0 Yes [id number] 5mg TAKE 1 [facility] 5 mg tablet 4-05 TABLET BY ity of 00:00: DAILY Medical Branch COLCHICINE 2023-0 Yes [id number] TAKE 1 [facility] 0.6 mg 4-05 TABLET BY ity of tablet 00:00: DAILY Medical Branch AMLODIPINE 2023-0 Yes [id number] 5mg TAKE 1 [facility] 5 mg tablet 4-05 TABLET BY ity of 00:00: DAILY Medical Branch AMLODIPINE 2023-0 Yes [id number] 5mg TAKE 1 [facility] 5 mg tablet 4-05 TABLET BY ity of 00:00: DAILY Medical Branch AMLODIPINE 2023-0 Yes [id number] 5mg TAKE 1 [facility] 5 mg tablet 4-05 TABLET BY ity of 00:00: DAILY Medical Branch AMLODIPINE 2023-0 Yes [id number] 5mg TAKE 1 [facility] 5 mg tablet 4-05 TABLET BY ity of 00:00: DAILY Medical Branch AMLODIPINE 2023-0 Yes [id number] 5mg TAKE 1 [facility] 5 mg tablet 4-05 TABLET BY it[facility] of 00:00: DAILY Medical Branch AMLODIPINE 2023-0 Yes [id number] 5mg TAKE 1 [facility] 5 mg tablet 4-05 TABLET BY ity of 00:00: DAILY Medical Branch AMLODIPINE 2023-0 Yes [id number] 5mg TAKE 1 [facility] 5 mg tablet 4-05 TABLET BY ity of 00:00: DAILY Medical Branch AMLODIPINE 2023-0 Yes [id number] 5mg TAKE 1 [facility] 5 mg tablet 4-05 TABLET BY ity of 00:00: DAILY Medical Branch AMLODIPINE 2023-0 Yes [id number] 5mg TAKE 1 [facility] 5 mg tablet 4-05 TABLET BY ity of 00:00: [facility] DAILY Medical Branch AMLODIPINE 2023-0 Yes [id number] 5mg TAKE 1 [facility] 5 mg tablet 4-05 TABLET BY ity of 00:00: [facility] DAILY Medical Branch AMLODIPINE 2023-0 Yes [id number] 5mg TAKE 1 [facility] 5 mg tablet 4-05 TABLET BY ity of 00:00: DAILY Medical Branch AMLODIPINE 2023-0 Yes [id number] 5mg TAKE 1 [facility] 5 mg tablet 4-05 TABLET BY ity of 00:00: [facility] DAILY Medical Branch AMLODIPINE 2023-0 Yes [id number] 5mg TAKE 1 [facility] 5 mg tablet 4-05 TABLET BY ity of 00:00: [facility] DAILY Medical Branch AMLODIPINE 2023-0 Yes [id number] 5mg TAKE 1 [facility] 5 mg tablet 4-05 TABLET BY ity of 00:00: [facility] DAILY Medical Branch AMLODIPINE 2023-0 Yes [id number] 5mg TAKE 1 [facility] 5 mg tablet 4-05 TABLET BY ity of 00:00: [facility] DAILY Medical Branch AMLODIPINE 2023-0 Yes [id number] 5mg TAKE 1 [facility] 5 mg tablet 4-05 TABLET BY ity of 00:00: [facility] DAILY Medical Branch AMLODIPINE 2023-0 Yes [id number] 5mg TAKE 1 [facility] 5 mg tablet 4-05 TABLET BY ity of 00:00: [facility] DAILY Medical Branch AMLODIPINE 2023-0 Yes [id number] 5mg TAKE 1 [facility] 5 mg tablet 4-05 TABLET BY ity of 00:00: DAILY Medical Branch AMLODIPINE 2023-0 Yes [id number] 5mg TAKE 1 [facility] 5 mg tablet 4-05 TABLET BY ity of 00:00: DAILY Medical Branch AMLODIPINE 2023-0 Yes [id number] 5mg TAKE 1 [facility] 5 mg tablet 4-05 TABLET BY ity of 00:00: DAILY Medical Branch AMLODIPINE 2023-0 Yes [id number] 5mg TAKE 1 [facility] 5 mg tablet 4-05 TABLET BY ity of 00:00: DAILY Medical Branch AMLODIPINE 2023-0 Yes [id number] 5mg TAKE 1 [facility] 5 mg tablet 4-05 TABLET BY ity of 00:00: [facility] DAILY Medical Branch AMLODIPINE 2023-0 Yes [id number] 5mg TAKE 1 [facility] 5 mg tablet 4-05 TABLET BY ity of 00:00: [facility] DAILY Medical Branch AMLODIPINE 2023-0 Yes [id number] 5mg TAKE 1 [facility] 5 mg tablet 4-05 TABLET BY ity of 00:00: DAILY Medical Branch AMLODIPINE 2023-0 Yes [id number] 5mg TAKE 1 [facility] 5 mg tablet 4-05 TABLET BY ity of 00:00: [facility] DAILY Medical Branch AMLODIPINE 2023-0 Yes [id number] 5mg TAKE 1 [facility] 5 mg tablet 4-05 TABLET BY ity of 00:00: [facility] DAILY Medical Branch AMLODIPINE 2023-0 Yes [id number] 5mg TAKE 1 [facility] 5 mg tablet 4-05 TABLET BY ity of 00:00: [facility] DAILY Medical Branch AMLODIPINE 2023-0 Yes [id number] 5mg TAKE 1 [facility] 5 mg tablet 4-05 TABLET BY ity of 00:00: [facility] DAILY Medical Branch AMLODIPINE 2023-0 Yes [id number] 5mg TAKE 1 [facility] 5 mg tablet 4-05 TABLET BY ity of 00:00: [facility] DAILY Medical Branch AMLODIPINE 2023-0 Yes [id number] 5mg TAKE 1 [facility] 5 mg tablet 4-05 TABLET BY ity of 00:00: [facility] DAILY Medical Branch AMLODIPINE 2023-0 Yes [id number] 5mg TAKE 1 [facility] 5 mg tablet 4-05 TABLET BY ity of 00:00: [facility] DAILY Medical Branch AMLODIPINE 2023-0 Yes [id number] 5mg TAKE 1 [facility] 5 mg tablet 4-05 TABLET BY ity of 00:00: [facility] DAILY Medical Branch AMLODIPINE 2023-0 Yes [id number] 5mg TAKE 1 [facility] 5 mg tablet 4-05 TABLET BY ity of 00:00: [facility] DAILY Medical Branch AMLODIPINE 2023-0 Yes [id number] 5mg TAKE 1 [facility] 5 mg tablet 4-05 TABLET BY ity of 00:00: [facility] DAILY Medical Branch AMLODIPINE 2023-0 Yes [id number] 5mg TAKE 1 [facility] 5 mg tablet 4-05 TABLET BY ity of 00:00: [facility] DAILY Medical Branch AMLODIPINE 2023-0 Yes [id number] 5mg TAKE 1 [facility] 5 mg tablet 4-05 TABLET BY ity of 00:00: [facility] DAILY Medical Branch AMLODIPINE 2023-0 Yes [id number] 5mg TAKE 1 [facility] 5 mg tablet 4-05 TABLET BY ity of 00:00: [facility] DAILY Medical Branch AMLODIPINE 2023-0 Yes [id number] 5mg TAKE 1 [facility] 5 mg tablet 4-05 TABLET BY ity of 00:00: [facility] DAILY Medical Branch AMLODIPINE 2023-0 Yes [id number] 5mg TAKE 1 [facility] 5 mg tablet 4-05 TABLET BY ity of 00:00: [facility] DAILY Medical Branch AMLODIPINE 2023-0 Yes [id number] 5mg TAKE 1 [facility] 5 mg tablet 4-05 TABLET BY ity of 00:00: [facility] DAILY Medical Branch AMLODIPINE 2023-0 Yes [id number] 5mg TAKE 1 [facility] 5 mg tablet 4-05 TABLET BY ity of 00:00: [facility] DAILY Medical Branch AMLODIPINE 2023-0 Yes [id number] 5mg TAKE 1 [facility] 5 mg tablet 4-05 TABLET BY ity of 00:00: [facility] DAILY Medical Branch AMLODIPINE 2023-0 Yes [id number] 5mg TAKE 1 [facility] 5 mg tablet 4-05 TABLET BY ity of 00:00: [facility] DAILY Medical Branch AMLODIPINE 2023-0 Yes [id number] 5mg TAKE 1 [facility] 5 mg tablet 4-05 TABLET BY ity of 00:00: [facility] DAILY Medical Branch AMLODIPINE 2023-0 Yes [id number] 5mg TAKE 1 [facility] 5 mg tablet 4-05 TABLET BY ity of 00:00: [facility] DAILY Medical Branch AMLODIPINE 2023-0 Yes [id number] 5mg TAKE 1 [facility] 5 mg tablet 4-05 TABLET BY ity of 00:00: DAILY Medical Branch AMLODIPINE 2023-0 Yes [id number] 5mg TAKE 1 [facility] 5 mg tablet 4-05 TABLET BY ity of 00:00: DAILY Medical Branch AMLODIPINE 2023-0 Yes [id number] 5mg TAKE 1 [facility] 5 mg tablet 4-05 TABLET BY ity of 00:00: DAILY Medical Branch AMLODIPINE 2023-0 Yes [id number] 5mg TAKE 1 [facility] 5 mg tablet 4-05 TABLET BY ity of 00:00: [facility] DAILY Medical Branch AMLODIPINE 2023-0 Yes [id number] 5mg TAKE 1 [facility] 5 mg tablet 4-05 TABLET BY ity of 00:00: [facility] DAILY Medical Branch AMLODIPINE 2023-0 Yes [id number] 5mg TAKE 1 [facility] 5 mg tablet 4-05 TABLET BY ity of 00:00: DAILY Medical Branch AMLODIPINE 2023-0 Yes [id number] 5mg TAKE 1 [facility] 5 mg tablet 4-05 TABLET BY ity of 00:00: [facility] DAILY Medical Branch AMLODIPINE 2023-0 Yes [id number] 5mg TAKE 1 [facility] 5 mg tablet 4-05 TABLET BY ity of 00:00: [facility] DAILY Medical Branch AMLODIPINE 2023-0 Yes [id number] 5mg TAKE 1 [facility] 5 mg tablet 4-05 TABLET BY ity of 00:00: [facility] DAILY Medical Branch amLODIPine 2023-0 Yes 5mg QD [facility] (5 [facility] tablet 00:00: mg total) Med ical 00 by mouth Center in the morning. amLODIPine 2023-0 Yes 5mg QD Take [facility] (5 [facility] tablet 00:00: mg total) Med ical 00 by mouth Center in the morning. amLODIPine 2023-0 Yes 5mg QD Take 1 [facility] tablet (5 [facility] MG tablet 00:00: mg total) Med ical 00 by mouth Center in the morning. amLODIPine 2023-0 Yes 5mg QD Take 1 [facility] tablet (5 [facility] MG tablet 00:00: mg total) Med ical 00 by mouth Center in the morning. amLODIPine 2023-0 Yes 5mg QD Take 1 [facility] 4-05 tablet (5 [facility] MG tablet 00:00: mg total) Med ical 00 by mouth Center in the morning. amLODIPine 2023-0 Yes 5mg QD Take 1 [facility]-05 tablet (5 [facility] MG tablet 00:00: mg total) Med ical 00 by mouth Center in the morning. AMLODIPINE 2022-0 2022- No [id number] 5mg TAKE 1 [facility] 5 mg tablet 08-01 TABLET BY it y of 00:00: 00:00 MOUTH [place] 00 :00 DAILY Medical Branch COLCHICINE 2022-0 2022- No [id number] TAKE 1 [facility] 0.6 mg 08-01 TABLET BY ity of tablet 00:00: 00:00 MOUTH [place] 00 :00 DAILY Medical Branch blood sugar 2022-0 Yes [id number] Use as [facility] diagnostic 4-03 directed ity o f (TRUE 00:00: for once a [place] METRIX 00 day Medical GLUCOSE glucose Branch TEST STRIP) monitoring strip for ICD E11.9 Insulin 2022-0 Yes INJECT [facility] [place], 4-03 UNDER THE ity of Disposable, 00:00: [place]CE [place] (TRUEPLUS 00 DAILY Medical PEN NEEDLE) Branch 32 gauge x 5/32" [place] blood sugar 2022-0 Yes [id number] Use as [facility] diagnostic 4-03 directed ity o f (TRUE 00:00: for once a [place] MET[facility] 00 day Medical GLUCOSE glucose Branch TEST STRIP) monitoring strip for ICD E11.9 Insulin 2022-0 Yes INJECT [facility] [place], 4-03 UNDER THE ity of Disposable, 00:00: SK[place]CE [place] (TRUEPLUS 00 DAILY Medical PEN NEEDLE) Branch 32 gauge x 5/32" Ndle blood sugar 2022-0 Yes [id number] Use as [facility] diagnostic 4-03 directed ity o f (TRUE 00:00: for once a [place] [facility] 00 day Medical GLUCOSE glucose Branch TEST STRIP) monitoring strip for ICD E11.9 Insulin 3-0 Yes INJECT [facility] [place], 4-03 UNDER THE ity of Disposable, 00:00: SK[place]CE [place] (TRUEPLUS 00 DAILY Medical PEN NEEDLE) Branch 32 gauge x 5/32" Ndle blood sugar 3-0 Yes [id number] Use as [facility] diagnostic 4-03 directed ity o f (TRUE 00:00: for once a [place] MET[facility] 00 day Medical GLUCOSE glucose Branch TEST STRIP) monitoring strip for ICD E11.9 Insulin 2022-0 Yes INJECT [facility] [place], 4-03 UNDER THE ity of Disposable, 00:00: SK[place]CE [place] (TRUEPLUS 00 DAILY Medical PEN NEEDLE) Branch 32 gauge x 5/32" Ndle blood sugar 2022-0 Yes [id number] Use as [facility] diagnostic 4-03 directed ity o f (TRUE 00:00: for once a [place] MET[facility] day Medical GLUCOSE glucose Branch TEST STRIP) monitoring strip for ICD E11.9 Insulin 2022-0 Yes INJECT [facility] [place], 4-03 UNDER THE ity of Disposable, 00:00: SKIN ONCE [place] (TRUEPLUS 00 DAILY Medical PEN NEEDLE) Branch 32 gauge x 5/32" Ndle blood sugar 3-0 Yes [id number] Use as [facility] diagnostic 4-03 directed ity o f (TRUE 00:00: for once a [place] [facility] 00 day Medical GLUCOSE glucose Branch TEST STRIP) monitoring strip for ICD E11.9 Insulin 3-0 Yes INJECT [facility] [place], 4-03 UNDER THE ity of Disposable, 00:00: [place]CE [place] (TRUEPLUS 00 DAILY Medical PEN NEEDLE) Branch 32 gauge x 5/32" Ndle blood sugar 3-0 Yes [id number] Use as [facility] diagnostic 4-03 directed ity o f (TRUE 00:00: for once a [place] [facility]RI[facility] day Medical GLUCOSE glucose Branch TEST STRIP) monitoring strip for ICD E11.9 Insulin 2023-0 Yes INJECT [facility], 4-03 UNDER THE ity of Disposable, 00:00: SKIN ONCE [place] (TRUEPLUS 00 DAILY Medical PEN NEEDLE) Branch 32 gauge x 5/32" Ndle blood sugar 2023-0 Yes [id number] Use as [facility] diagnostic 4-03 directed ity o f (TRUE 00:00: for once a [place] [facility] 00 day Medical GLUCOSE glucose Branch TEST STRIP) monitoring strip for ICD E11.9 Insulin 3-0 Yes INJECT [facility], 4-03 UNDER THE ity of Disposable, 00:00: SKIN ONCE [place] (TRUEPLUS 00 DAILY Medical PEN NEEDLE) Branch 32 gauge x 5/32" Ndle blood sugar 3-0 Yes [id number] Use as [facility] diagnostic 4-03 directed ity o f (TRUE 00:00: for once a [place] [facility] 00 day Medical GLUCOSE glucose Branch TEST STRIP) monitoring strip for ICD E11.9 Insulin 2022-0 Yes INJECT [facility], 4-03 UNDER THE ity of Disposable, 00:00: SKIN ONCE [place] (TRUEPLUS 00 DAILY Medical PEN NEEDLE) Branch 32 gauge x 5/32" Ndle blood sugar 2022-0 Yes [id number] Use as [facility] diagnostic 4-03 directed ity o f (TRUE 00:00: for once a [place] [facility] day Medical GLUCOSE glucose Branch TEST STRIP) monitoring strip for ICD E11.9 Insulin 2022-0 Yes INJECT [facility], 4-03 UNDER THE ity of Disposable, 00:00: SKIN ONCE [place] (TRUEPLUS 00 DAILY Medical PEN NEEDLE) Branch 32 gauge x 5/32" Ndle blood sugar 3-0 Yes [id number] Use as [facility] diagnostic 4-03 directed ity o f (TRUE 00:00: for once a [place] [facility] 00 day Medical GLUCOSE glucose Branch TEST STRIP) monitoring strip for ICD E11.9 Insulin 3-0 Yes INJECT [facility], 4-03 UNDER THE ity of Disposable, 00:00: SKIN ONCE [place] (TRUEPLUS 00 DAILY Medical PEN NEEDLE) Branch 32 gauge x 5/32" Ndle blood sugar 3-0 Yes [id number] Use as [facility] diagnostic 4-03 directed ity o f (TRUE 00:00: for once a [place] METRI[facility] day Medical GLUCOSE glucose Branch TEST STRIP) monitoring strip for ICD E11.9 Insulin 2023-0 Yes INJECT [facility], 4-03 UNDER THE ity of Disposable, 00:00: SKIN ONCE [place] (TRUEPLUS 00 DAILY Medical PEN NEEDLE) Branch 32 gauge x 5/32" Ndle blood sugar 2023-0 Yes [id number] Use as [facility] diagnostic 4-03 directed ity o f (TRUE 00:00: for once a [place] [facility] 00 day Medical GLUCOSE glucose Branch TEST STRIP) monitoring strip for ICD E11.9 Insulin 3-0 Yes INJECT [facility], 4-03 UNDER THE ity of Disposable, 00:00: SKIN ONCE [place] (TRUEPLUS 00 DAILY Medical PEN NEEDLE) Branch 32 gauge x 5/32" Ndle blood sugar 3-0 Yes [id number] Use as [facility] diagnostic 4-03 directed ity o f (TRUE 00:00: for once a [place] [facility] 00 day Medical GLUCOSE glucose Branch TEST STRIP) monitoring strip for ICD E11.9 Insulin 2022-0 Yes INJECT [facility], 4-03 UNDER THE ity of Disposable, 00:00: SKIN ONCE [place] (TRUEPLUS 00 DAILY Medical PEN NEEDLE) Branch 32 gauge x 5/32" Ndle blood sugar 2022-0 Yes [id number] Use as [facility] diagnostic 4-03 directed ity o f (TRUE 00:00: for once a [place] METRI[facility] day Medical GLUCOSE glucose Branch TEST STRIP) monitoring strip for ICD E11.9 Insulin 2022-0 Yes INJECT [facility], 4-03 UNDER THE ity of Disposable, 00:00: SKIN ONCE [place] (TRUEPLUS 00 DAILY Medical PEN NEEDLE) Branch 32 gauge x 5/32" Ndle blood sugar 3-0 Yes [id number] Use as [facility] diagnostic 4-03 directed ity o f (TRUE 00:00: for once a [place] [facility] 00 day Medical GLUCOSE glucose Branch TEST STRIP) monitoring strip for ICD E11.9 Insulin 3-0 Yes INJECT [facility], 4-03 UNDER THE ity of Disposable, 00:00: SKIN ONCE [place] (TRUEPLUS 00 DAILY Medical PEN NEEDLE) Branch 32 gauge x 5/32" Ndle blood sugar 3-0 Yes [id number] Use as [facility] diagnostic 4-03 directed ity o f (TRUE 00:00: for once a [place] METRI[facility] day Medical GLUCOSE glucose Branch TEST STRIP) monitoring strip for ICD E11.9 Insulin 2023-0 Yes INJECT [facility], 4-03 UNDER THE ity of Disposable, 00:00: SKIN ONCE [place] (TRUEPLUS 00 DAILY Medical PEN NEEDLE) Branch 32 gauge x 5/32" Ndle blood sugar 2023-0 Yes [id number] Use as [facility] diagnostic 4-03 directed ity o f (TRUE 00:00: for once a [place] [facility] 00 day Medical GLUCOSE glucose Branch TEST STRIP) monitoring strip for ICD E11.9 Insulin 3-0 Yes INJECT [facility], 4-03 UNDER THE ity of Disposable, 00:00: SKIN ONCE [place] (TRUEPLUS 00 DAILY Medical PEN NEEDLE) Branch 32 gauge x 5/32" Ndle blood sugar 3-0 Yes [id number] Use as [facility] diagnostic 4-03 directed ity o f (TRUE 00:00: for once a [place] [facility] 00 day Medical GLUCOSE glucose Branch TEST STRIP) monitoring strip for ICD E11.9 Insulin 2022-0 Yes INJECT [facility], 4-03 UNDER THE ity of Disposable, 00:00: SKIN ONCE [place] (TRUEPLUS 00 DAILY Medical PEN NEEDLE) Branch 32 gauge x 5/32" Ndle blood sugar 2022-0 Yes [id number] Use as [facility] diagnostic 4-03 directed ity o f (TRUE 00:00: for once a [place] [facility] day Medical GLUCOSE glucose Branch TEST STRIP) monitoring strip for ICD E11.9 Insulin 2022-0 Yes INJECT [facility], 4-03 UNDER THE ity of Disposable, 00:00: SKIN ONCE [place] (TRUEPLUS 00 DAILY Medical PEN NEEDLE) Branch 32 gauge x 5/32" Ndle blood sugar 3-0 Yes [id number] Use as [facility] diagnostic 4-03 directed ity o f (TRUE 00:00: for once a [place] [facility] 00 day Medical GLUCOSE glucose Branch TEST STRIP) monitoring strip for ICD E11.9 Insulin 3-0 Yes INJECT [facility], 4-03 UNDER THE ity of Disposable, 00:00: SKIN ONCE [place] (TRUEPLUS 00 DAILY Medical PEN NEEDLE) Branch 32 gauge x 5/32" Ndle blood sugar 3-0 Yes [id number] Use as [facility] diagnostic 4-03 directed ity o f (TRUE 00:00: for once a [place] [facility] day Medical GLUCOSE glucose Branch TEST STRIP) monitoring strip for ICD E11.9 Insulin 2023-0 Yes INJECT [facility], 4-03 UNDER THE ity of Disposable, 00:00: SKIN ONCE [place] (TRUEPLUS 00 DAILY Medical PEN NEEDLE) Branch 32 gauge x 5/32" Ndle blood sugar 2023-0 Yes [id number] Use as [facility] diagnostic 4-03 directed ity o f (TRUE 00:00: for once a [place] [facility] 00 day Medical GLUCOSE glucose Branch TEST STRIP) monitoring strip for ICD E11.9 Insulin 3-0 Yes INJECT [facility], 4-03 UNDER THE ity of Disposable, 00:00: SKIN ONCE [place] (TRUEPLUS 00 DAILY Medical PEN NEEDLE) Branch 32 gauge x 5/32" Ndle blood sugar 3-0 Yes [id number] Use as [facility] diagnostic 4-03 directed ity o f (TRUE 00:00: for once a [place] [facility] 00 day Medical GLUCOSE glucose Branch TEST STRIP) monitoring strip for ICD E11.9 Insulin 2022-0 Yes INJECT [facility], 4-03 UNDER THE ity of Disposable, 00:00: SKIN ONCE [place] (TRUEPLUS 00 DAILY Medical PEN NEEDLE) Branch 32 gauge x 5/32" Ndle blood sugar 2022-0 Yes [id number] Use as [facility] diagnostic 4-03 directed ity o f (TRUE 00:00: for once a [place] [facility] day Medical GLUCOSE glucose Branch TEST STRIP) monitoring strip for ICD E11.9 Insulin 2022-0 Yes INJECT [facility], 4-03 UNDER THE ity of Disposable, 00:00: SKIN ONCE [place] (TRUEPLUS 00 DAILY Medical PEN NEEDLE) Branch 32 gauge x 5/32" Ndle blood sugar 3-0 Yes [id number] Use as [facility] diagnostic 4-03 directed ity o f (TRUE 00:00: for once a [place] [facility] 00 day Medical GLUCOSE glucose Branch TEST STRIP) monitoring strip for ICD E11.9 Insulin 3-0 Yes INJECT [facility], 4-03 UNDER THE ity of Disposable, 00:00: SKIN ONCE [place] (TRUEPLUS 00 DAILY Medical PEN NEEDLE) Branch 32 gauge x 5/32" Ndle blood sugar 3-0 Yes [id number] Use as [facility] diagnostic 4-03 directed ity o f (TRUE 00:00: for once a [place] [facility] day Medical GLUCOSE glucose Branch TEST STRIP) monitoring strip for ICD E11.9 Insulin 2023-0 Yes INJECT [facility], 4-03 UNDER THE ity of Disposable, 00:00: SKIN ONCE [place] (TRUEPLUS 00 DAILY Medical PEN NEEDLE) Branch 32 gauge x 5/32" Ndle blood sugar 2023-0 Yes [id number] Use as [facility] diagnostic 4-03 directed ity o f (TRUE 00:00: for once a [place] [facility] 00 day Medical GLUCOSE glucose Branch TEST STRIP) monitoring strip for ICD E11.9 Insulin 3-0 Yes INJECT [facility], 4-03 UNDER THE ity of Disposable, 00:00: SKIN ONCE [place] (TRUEPLUS 00 DAILY Medical PEN NEEDLE) Branch 32 gauge x 5/32" Ndle blood sugar 3-0 Yes [id number] Use as [facility] diagnostic 4-03 directed ity o f (TRUE 00:00: for once a [place] [facility] 00 day Medical GLUCOSE glucose Branch TEST STRIP) monitoring strip for ICD E11.9 Insulin 3-0 Yes INJECT [facility], 4-03 UNDER THE ity of Disposable, 00:00: SKIN ONCE [place] (TRUEPLUS 00 DAILY Medical PEN NEEDLE) Branch 32 gauge x 5/32" Ndle blood sugar 2022-0 Yes [id number] Use as [facility] diagnostic 4-03 directed ity o f (TRUE 00:00: for once a [place] [facility] 00 day Medical GLUCOSE glucose Branch TEST STRIP) monitoring strip for ICD E11.9 Insulin 2022-0 Yes INJECT [facility], 4-03 UNDER THE ity of Disposable, 00:00: SKIN ONCE [place] (TRUEPLUS 00 DAILY Medical PEN NEEDLE) Branch 32 gauge x 5/32" Ndle blood sugar 3-0 Yes [id number] [facility] as [facility] directed [facility] o f (TRUE 00:00: for once a [place] METRIX 00 day Medical GLUCOSE glucose Branch TEST STRIP) monitoring strip for ICD E11.9 Insulin 3-0 Yes INJECT [facility], 4-03 UNDER THE [facility]y of Disposable, 00:00: [place]IN [place]CE [place] (TRUEPLUS 00 DAILY Medical PEN NEEDLE) Branch 32 gauge x 5/32" Ndle blood sugar 3-0 Yes [id number] Use as [facility] 4-03 directed [facility] o f (TRUE 00:00: for once a [place] METRIX 00 day Medical GLUCOSE glucose Branch TEST STRIP) monitoring strip for ICD E11.9 blood sugar 2023-0 Yes [id number] Use as [facility] 4-[facility] directed [facility] o f (TRUE 00:00: for once a [place] METRIX 00 day Medical GLUCOSE glucose Branch TEST STRIP) monitoring strip for ICD E11.9 blood sugar 2023-0 Yes [id number] Use as [facility] 4-[facility] directed [facility] o f (TRUE 00:00: for once a [place] METRIX 00 day Medical GLUCOSE glucose Branch TEST STRIP) monitoring strip for ICD E11.9 blood sugar 2023-0 Yes [id number] Use as [facility] 4-03 directed [facility] o f (TRUE 00:00: for once a [place] METRIX 00 day Medical GLUCOSE glucose Branch TEST STRIP) monitoring strip for ICD E11.9 blood sugar 2023-0 Yes [id number] Use as [facility] 4-03 directed [facility] o f (TRUE 00:00: for once a [place] METRIX 00 day Medical GLUCOSE glucose Branch TEST STRIP) monitoring strip for ICD E11.9 blood sugar 2023-0 Yes [id number] Use as [facility] 4-03 directed [facility] o f (TRUE 00:00: for once a [place] METRIX 00 day Medical GLUCOSE glucose Branch TEST STRIP) monitoring strip for ICD E11.9 blood sugar 2023-0 Yes [id number] Use as [facility] 4-03 directed it[facility] o f (TRUE 00:00: for once a [place] METRIX 00 day Medical GLUCOSE glucose Branch TEST STRIP) monitoring strip for ICD E11.9 blood sugar 2023-0 Yes [id number] Use as [facility] diagnostic 4-03 directed ity o f (TRUE 00:00: for once a [place] METRIX 00 day Medical GLUCOSE glucose Branch TEST STRIP) monitoring strip for ICD E11.9 blood sugar 2023-0 Yes [id number] Use as [facility] 4-03 directed ity o f (TRUE 00:00: for once a [place] METRIX 00 day Medical GLUCOSE glucose Branch TEST STRIP) monitoring strip for ICD E11.9 blood sugar 2023-0 Yes [id number] Use as [facility] 4-03 directed ity o f (TRUE 00:00: for once a [place] METRIX 00 day Medical GLUCOSE glucose Branch TEST STRIP) monitoring strip for ICD E11.9 blood sugar 2023-0 Yes [id number] Use as [facility] diagnostic 4-03 directed ity o f (TRUE 00:00: for once a [place] METRIX 00 day Medical GLUCOSE glucose Branch TEST STRIP) monitoring strip for ICD E11.9 blood sugar 2023-0 Yes [id number] Use as [facility] 4-03 directed ity o f (TRUE 00:00: for once a [place] METRIX 00 day Medical GLUCOSE glucose Branch TEST STRIP) monitoring strip for ICD E11.9 blood sugar 2023-0 Yes [id number] Use as [facility] diagnostic 4-03 directed ity o f (TRUE 00:00: for once a [place] METRIX 00 day Medical GLUCOSE glucose Branch TEST STRIP) monitoring strip for ICD E11.9 blood sugar 2023-0 Yes [id number] Use as [facility] diagnostic 4-03 directed ity o f (TRUE 00:00: for once a [place] METRIX 00 day Medical GLUCOSE glucose Branch TEST STRIP) monitoring strip for ICD E11.9 blood sugar 2023-0 Yes [id number] Use as [facility] diagnostic 4-03 directed ity o f (TRUE 00:00: for once a [place] METRIX 00 day Medical GLUCOSE glucose Branch TEST STRIP) monitoring strip for ICD E11.9 blood sugar 3-0 Yes [id number] Use as [facility] diagnostic 4-03 directed ity o f (TRUE 00:00: for once a [place] METRIX 00 day Medical GLUCOSE glucose Branch TEST STRIP) monitoring strip for ICD E11.9 blood sugar 2023-0 Yes [id number] Use as [facility] diagnostic 4-03 directed ity o f (TRUE 00:00: for once a [place] METRIX 00 day Medical GLUCOSE glucose Branch TEST STRIP) monitoring strip for ICD E11.9 blood sugar 2023-0 Yes [id number] Use as [facility] 4-03 directed ity o f (TRUE 00:00: for once a [place] METRIX 00 day Medical GLUCOSE glucose Branch TEST STRIP) monitoring strip for ICD E11.9 blood sugar 2023-0 Yes [id number] Use as [facility] 4-03 directed ity o f (TRUE 00:00: for once a [place] METRIX 00 day Medical GLUCOSE glucose Branch TEST STRIP) monitoring strip for ICD E11.9 blood sugar 2023-0 Yes [id number] Use as [facility] 4-03 directed ity o f (TRUE 00:00: for once a [place] METRIX 00 day Medical GLUCOSE glucose Branch TEST STRIP) monitoring strip for ICD E11.9 blood sugar 2023-0 Yes [id number] Use as [facility] 4-03 directed ity o f (TRUE 00:00: for once a [place] METRIX 00 day Medical GLUCOSE glucose Branch TEST STRIP) monitoring strip for ICD E11.9 blood sugar 2023-0 Yes [id number] Use as [facility] 4-03 directed ity o f (TRUE 00:00: for once a [place] METRIX 00 day Medical GLUCOSE glucose Branch TEST STRIP) monitoring strip for ICD E11.9 blood sugar 2023-0 Yes [id number] Use as [facility] 4-03 directed ity o f (TRUE 00:00: for once a [place] METRIX 00 day Medical GLUCOSE glucose Branch TEST STRIP) monitoring strip for ICD E11.9 blood sugar 2023-0 Yes [id number] Use as [facility] 4-03 directed ity o f (TRUE 00:00: for once a [place] METRIX 00 day Medical GLUCOSE glucose Branch TEST STRIP) monitoring strip for ICD E11.9 blood sugar 2023-0 Yes [id number] Use as [facility] 4-03 directed ity o f (TRUE 00:00: for once a [place] METRIX 00 day Medical GLUCOSE glucose Branch TEST STRIP) monitoring strip for ICD E11.9 blood sugar 2023-0 Yes [id number] Use as [facility] 4-03 directed ity o f (TRUE 00:00: for once a [place] METRIX 00 day Medical GLUCOSE glucose Branch TEST STRIP) monitoring strip for ICD E11.9 blood sugar 2023-0 Yes [id number] Use as [facility] 4-03 directed ity o f (TRUE 00:00: for once a [place] METRIX 00 day Medical GLUCOSE glucose Branch TEST STRIP) monitoring strip for ICD E11.9 blood sugar 2023-0 Yes [id number] Use as [facility] diagnostic 4-03 directed ity o f (TRUE 00:00: for once a [place] METRIX 00 day Medical GLUCOSE glucose Branch TEST STRIP) monitoring strip for ICD E11.9 blood sugar 2023-0 Yes [id number] Use as [facility] 4-03 directed ity o f (TRUE 00:00: for once a [place] METRIX 00 day Medical GLUCOSE glucose Branch TEST STRIP) monitoring strip for ICD E11.9 blood sugar 2023-0 Yes [id number] Use as [facility] diagnostic 4-03 directed ity o f (TRUE 00:00: for once a [place] METRIX 00 day Medical GLUCOSE glucose Branch TEST STRIP) monitoring strip for ICD E11.9 blood sugar 2023-0 Yes [id number] Use as [facility] 4-03 directed ity o f (TRUE 00:00: for once a [place] METRIX 00 day Medical GLUCOSE glucose Branch TEST STRIP) monitoring strip for ICD E11.9 blood sugar 2023-0 Yes [id number] Use as [facility] 4-03 directed ity o f (TRUE 00:00: for once a [place] METRIX 00 day Medical GLUCOSE glucose Branch TEST STRIP) monitoring strip for ICD E11.9 blood sugar 2023-0 Yes [id number] Use as [facility] 4-03 directed ity o f (TRUE 00:00: for once a [place] METRIX 00 day Medical GLUCOSE glucose Branch TEST STRIP) monitoring strip for ICD E11.9 blood sugar 2023-0 Yes [id number] Use as [facility] 4-03 directed ity o f (TRUE 00:00: for once a [place] METRIX 00 day Medical GLUCOSE glucose Branch TEST STRIP) monitoring strip for ICD E11.9 blood sugar 2023-0 Yes [id number] Use as [facility] 4-03 directed ity o f (TRUE 00:00: for once a [place] METRIX 00 day Medical GLUCOSE glucose Branch TEST STRIP) monitoring strip for ICD E11.9 blood sugar 2023-0 Yes [id number] Use as [facility] 4-03 directed ity o f (TRUE 00:00: for once a [place] METRIX 00 day Medical GLUCOSE glucose Branch TEST STRIP) monitoring strip for ICD E11.9 blood sugar 2023-0 Yes [id number] Use as [facility] 4-03 directed ity o f (TRUE 00:00: for once a [place] METRIX 00 day Medical GLUCOSE glucose Branch TEST STRIP) monitoring strip for ICD E11.9 blood sugar 2023-0 Yes [id number] Use as [facility] 4-03 directed ity o f (TRUE 00:00: for once a [place] METRIX 00 day Medical GLUCOSE glucose Branch TEST STRIP) monitoring strip for ICD E11.9 blood sugar 2023-0 Yes [id number] Use as [facility] diagnostic 4-03 directed ity o f (TRUE 00:00: for once a [place] METRIX 00 day Medical GLUCOSE glucose Branch TEST STRIP) monitoring strip for ICD E11.9 blood sugar 2023-0 Yes [id number] Use as [facility] 4-03 directed ity o f (TRUE 00:00: for once a [place] METRIX 00 day Medical GLUCOSE glucose Branch TEST STRIP) monitoring strip for ICD E11.9 blood sugar 2023-0 Yes [id number] Use as [facility] diagnostic 4-03 directed ity o f (TRUE 00:00: for once a [place] METRIX 00 day Medical GLUCOSE glucose Branch TEST STRIP) monitoring strip for ICD E11.9 blood sugar 2023-0 Yes [id number] Use as [facility] diagnostic 4-03 directed ity o f (TRUE 00:00: for once a [place] METRIX 00 day Medical GLUCOSE glucose Branch TEST STRIP) monitoring strip for ICD E11.9 blood sugar 0 Yes [id number] Use as [facility] diagnostic 4-03 directed ity o f (TRUE 00:00: for once a [place] METRIX 00 day Medical GLUCOSE glucose Branch TEST STRIP) monitoring strip for ICD E11.9 blood sugar 0 Yes Use as [facility] (True 00:[facility]: [facility] Glucose glucose Test Strip) monitoring Strp for ICD E11.9 insulin pen [address] [facility] (BD 4-03 UNDER THE [place] [facility] ULTRA-FINE 00:00: SKIN ONCE Me dical [facility]) 4 mm 00 DAILY Center x 32 G blood sugar 0 Yes Use as [facility] (True 00:00: for once a [facility] 00 day Center Glucose glucose Test Strip) monitoring Strp for ICD E11.9 insulin pen [address] [facility] (BD 4-03 UNDER THE [place] [facility] ULTRA-FINE 00:00: SKIN ONCE Me dical [facility]) 4 mm 00 DAILY Center x 32 G blood sugar 0 Yes Use as [facility] 4[facility]03 [facility] (True 00:00: for once a [facility] 00 day Center Glucose glucose Test Strip) monitoring Strp for ICD E11.9 insulin pen [address] [facility] (BD 4-03 UNDER THE [place] ULTRA-FINE 00:00: SKIN ONCE Me dical [facility]) 4 mm 00 DAILY Center x 32 G blood sugar 0 Yes Use as [facility] 4[facility]03 [facility] (True 00:00: for once a [facility] 00 day Center Glucose glucose Test Strip) monitoring Strp for ICD E11.9 insulin pen [address] [facility] (BD 4-03 UNDER THE [place] ULTRA-FINE 00:00: SKIN ONCE Me dical [facility]) 4 mm 00 DAILY Center x 32 G blood sugar 0 Yes Use as [facility] 4[facility]03 [facility] (True 00:00: for once a [facility] 00 day Center Glucose glucose Test Strip) monitoring Strp for ICD E11.9 insulin pen [address] [facility] (BD 4-03 UNDER THE [place] ULTRA-FINE 00:00: SKIN ONCE Me dical [facility]) 4 mm 00 DAILY Center x 32 G blood sugar Yes Use as [facility] 4-03 [facility] (True 00:00: for once a [facility] 00 day Center Glucose glucose Test Strip) monitoring Strp for ICD E11.9 insulin pen [address] [facility] (BD 4-03 UNDER THE [place] ULTRA-FINE 00:00: SKIN ONCE Me dical [facility]LI) 4 mm 00 DAILY Center x 32 G Insulin 0 2022- No INJECT [facility], 403 08 UNDER THE ity o f Disposable, 00:00: 00:00 SKIN ONCE [place] (TRUEPLUS 00 :00 DAILY Medical PEN NEEDLE) Branch 32 gauge x 5/32" Ndle LORATADINE 2022-0 Yes [id number] TAKE 1 U nivers 10 mg 3-30 TABLET BY ity of tablet 00:00: [facility] DAILY Medical Branch LORATADINE 2022-0 Yes [id number] TAKE 1 U nivers 10 mg 3-30 TABLET BY ity of tablet 00:00: [facility] DAILY Medical Branch LORATADINE 2022-0 Yes [id number] TAKE 1 U nivers 10 mg 3-30 TABLET BY ity of tablet 00:00: [facility] DAILY Medical Branch LORATADINE 3-0 Yes [id number] TAKE 1 U nivers 10 mg 3-30 TABLET BY ity of tablet 00:00: [facility] DAILY Medical Branch LORATADINE 3-0 Yes [id number] TAKE 1 U nivers 10 mg 3-30 TABLET BY ity of tablet 00:00: [facility] DAILY Medical Branch LORATADINE 2022-0 Yes [id number] TAKE 1 U nivers 10 mg 3-30 TABLET BY ity of tablet 00:00: [facility] DAILY Medical Branch LORATADINE 3-0 Yes [id number] TAKE 1 U nivers 10 mg 3-30 TABLET BY ity of tablet 00:00: [facility] DAILY Medical Branch LORATADINE 2022-0 Yes [id number] TAKE 1 U nivers 10 mg 3-30 TABLET BY ity of tablet 00:00: MOUTH [place] 00 DAILY Medical Branch LORATADINE 0 Yes [id number] TAKE 1 U nivers 10 mg 3-30 TABLET BY ity of tablet 00:00: MOUTH [place] 00 DAILY Medical Branch LORATADINE 0 Yes [id number] TAKE 1 U nivers 10 mg 3-30 TABLET BY ity of tablet 00:00: MOUTH DAILY Medical Branch LORATADINE 0 Yes [id number] TAKE 1 U nivers 10 mg 3-30 TABLET BY ity of tablet 00:00: MOUTH [place] DAILY Medical Branch LORATADINE 0 Yes [id number] TAKE 1 U nivers 10 mg 3-30 TABLET BY ity of tablet 00:00: MOUTH [place] DAILY Medical Branch LORATADINE 2022- No [id number] TAKE 1 [facility] 10 mg 3-30 04-27 TABLET BY ity of tablet 00:00: 00:00 MOUTH [place] 00 :00 DAILY Medical Branch BD Marli Yes QD [facility]ject [facility] Pen 3-27 sub[facility]o [facility] Needle 32 00:00: [facility] Medical gauge x 00 daily. [place] " Ndle BD [facility]li Yes QD Inject [facility] Pen 3-27 sub[facility]o [facility] Needle 32 00:00: [facility] Medical gauge x 00 daily. [place] " Ndle BD [facility] Yes QD Inject [facility] Pen 3-27 [facility]o [facility] Needle 32 00:00: [facility] Medical gauge x 00 daily. [place] " Ndle BD [place] Yes QD Inject [facility] Pen 3-27 subcutaneo [facility] Needle 32 00:00: [facility] Medical gauge x 00 daily. [place] " Ndle BD [facility] Yes QD Inject [facility] Pen 3-27 subcutaneo [facility] Needle 32 00:00: [facility] Medical gauge x 00 daily. [place] " Ndle BD [place] Yes QD Inject [facility] Pen 3-27 subcutaneo [facility] Needle 32 00:00: [facility] Medical gauge x 00 daily. [place] " Ndle Insulin 0 Yes [id number] 30U inject 30 [facility] 3-23 Units ity of ([place] skin in Medical U-100 the Branch INSULN) 100 morning unit/mL (3 and 30 mL) Units in injection the evening. Insulin Yes [id number] 30U inject 30 [facility] 3-23 Units ity of (LEVEMIR 00:[place] skin in Medical U-100 the Branch INSULN) 100 morning unit/mL (3 and 30 mL) Units in injection the evening. Insulin Yes [id number] 30U inject 30 [facility] 3-23 Units ity of (LEVEMIR 00:[place] skin in Medical U-100 the Branch INSULN) 100 morning unit/mL (3 and 30 mL) Units in injection the evening. Insulin Yes [id number] 30U inject 30 [facility] 3-23 Units ity of (LEVEMIR 00:[place]: [place] skin in Medical U-100 the Branch INSULN) 100 morning unit/mL (3 and 30 mL) Units in injection the evening. Insulin Yes [id number] 30U inject 30 [facility] 3-23 Units ity of (LEVEMIR 00:[place]: [place] skin in Medical U-100 the Branch INSULN) 100 morning unit/mL (3 and 30 mL) Units in injection the evening. Insulin Yes [id number] 30U inject 30 [facility] 3-23 Units ity of (LEVEMIR 00:[place]: [place] skin in Medical U-100 the Branch INSULN) 100 morning unit/mL (3 and 30 mL) Units in injection the evening. Insulin Yes [id number] 30U inject 30 [facility] 3-23 Units ity of (LEVEMIR 00:[place]: [place] skin in Medical U-100 the Branch INSULN) 100 morning unit/mL (3 and 30 mL) Units in injection the evening. Insulin Yes [id number] 30U inject 30 [facility] 3-23 Units ity of (LEVEMIR 00:[place]: [place] skin in Medical U-100 the Branch INSULN) 100 morning unit/mL (3 and 30 mL) Units in injection the evening. Insulin Yes [id number] 30U inject 30 [facility] 3-23 Units ity of (LEVEMIR 00:[place]: [place] skin in Medical U-100 the Branch INSULN) 100 morning unit/mL (3 and 30 mL) Units in injection the evening. Insulin Yes [id number] 30U inject 30 [facility] 3-23 Units ity of (LEVEMIR 00:[place]: [place] skin in Medical U-100 the Branch INSULN) 100 morning unit/mL (3 and 30 mL) Units in injection the evening. Insulin Yes [id number] 30U inject 30 [facility] 3-23 Units ity of (LEVEMIR 00:[place] [address] [facility] U-100 the Branch INSULN) 100 morning unit/mL (3 and 30 mL) Units in injection the evening. Insulin Yes [id number] 30U inject 30 [facility] [place] 3-23 Units ity of (LEVEMIR 00:[place]: [place] skin in Medical U-100 the Branch INSULN) 100 morning unit/mL (3 and 30 mL) Units in injection the evening. Insulin Yes [id number] 30U inject 30 [facility] 3-23 Units ity of (LEVEMIR 00:00: [place] skin in Medical U-100 the Branch INSULN) 100 morning unit/mL (3 and 30 mL) Units in injection the evening. Insulin Yes [id number] 30U inject 30 [facility] 3-23 Units ity of (LEVEMIR 00:00: [place] skin in Medical U-100 the Branch INSULN) 100 morning unit/mL (3 and 30 mL) Units in injection the evening. Insulin Yes [id number] 30U inject 30 [facility] 3-23 Units ity of (LEVEMIR 00:00: [place] skin in Medical U-100 the Branch INSULN) 100 morning unit/mL (3 and 30 mL) Units in injection the evening. Insulin 0 Yes [id number] 30U inject 30 [facility] 3-23 Units ity of (LEVEMIR 00:00: [place] skin in Medical U-100 the Branch INSULN) 100 morning unit/mL (3 and 30 mL) Units in injection the evening. Insulin 0 Yes [id number] 30U inject 30 [facility] 3-23 Units ity of (LEVEMIR 00:00: [place] skin in Medical U-100 the Branch INSULN) 100 morning unit/mL (3 and 30 mL) Units in injection the evening. Insulin 0 Yes [id number] 30U inject 30 [facility] 3-23 Units ity of (LEVEMIR 00:00: [place] skin in Medical U-100 the Branch INSULN) 100 morning unit/mL (3 and 30 mL) Units in injection the evening. Insulin Yes [id number] 30U inject 30 [facility] 3-23 Units ity of (LEVEMIR 00:00: [place] skin in Medical U-100 the Branch INSULN) 100 morning unit/mL (3 and 30 mL) Units in injection the evening. Insulin 0 Yes [id number] 30U inject 30 [facility] 3-23 Units ity of (LEVEMIR 00:[place]: [place] skin in Medical U-100 the Branch INSULN) 100 morning unit/mL (3 and 30 mL) Units in injection the evening. Insulin 0 Yes [id number] 30U inject 30 [facility] [place] 3-23 Units ity of (LEVEMIR 00:[place]: [place] skin in Medical U-100 the Branch INSULN) 100 morning unit/mL (3 and 30 mL) Units in injection the evening. Insulin 0 Yes [id number] 30U inject 30 [facility] 3-23 Units ity of (LEVEMIR 00:00: [place] skin in Medical U-100 the Branch INSULN) 100 morning unit/mL (3 and 30 mL) Units in injection the evening. Insulin 0 Yes [id number] 30U inject 30 [facility] 3-23 Units ity of (LEVEMIR 00:00: [place] skin in Medical U-100 the Branch INSULN) 100 morning unit/mL (3 and 30 mL) Units in injection the evening. Insulin 0 Yes [id number] 30U inject 30 [facility] 3-23 Units ity of (LEVEMIR 00:[place]: [place] skin in Medical U-100 the Branch INSULN) 100 morning unit/mL (3 and 30 mL) Units in injection the evening. Insulin 0 Yes [id number] 30U inject 30 [facility] 3-23 Units ity of (LEVEMIR 00:00: [place] skin in Medical U-100 the Branch INSULN) 100 morning unit/mL (3 and 30 mL) Units in injection the evening. Insulin Yes [id number] 30U inject 30 [facility] 3-23 Units ity of (LEVEMIR 00:00: [place] skin in Medical U-100 the Branch INSULN) 100 morning unit/mL (3 and 30 mL) Units in injection the evening. Insulin 0 Yes [id number] 30U inject 30 [facility] 3-23 Units ity of (LEVEMIR 00:00: [place] 00 skin in Medical U-100 the Branch INSULN) 100 morning unit/mL (3 and 30 mL) Units in injection the evening. Insulin Yes [id number] 30U inject 30 [facility] 3-23 Units ity of (LEVEMIR 00:00: [place] skin in Medical U-100 the Branch INSULN) 100 morning unit/mL (3 and 30 mL) Units in injection the evening. Insulin 0 Yes [id number] 30U inject 30 [facility] 3-23 Units ity of (LEVEMIR 00:00: [place] skin in Medical U-100 the Branch INSULN) 100 morning unit/mL (3 and 30 mL) Units in injection the evening. Insulin 2022-0 Yes [id number] 30U inject 30 [facility] 3-23 Units ity of (LEVEMIR 00:[place]: [place] skin in Medical U-100 the Branch INSULN) 100 morning unit/mL (3 and 30 mL) Units in injection the evening. Insulin 0 Yes [id number] 30U inject 30 [facility] 3-23 Units ity of (LEVEMIR 00:00: [place] skin in Medical U-100 the Branch INSULN) 100 morning unit/mL (3 and 30 mL) Units in injection the evening. Insulin 0 Yes [id number] 30U inject 30 [facility] 3-23 Units ity of (LEVEMIR 00:00: [place] skin in Medical U-100 the Branch INSULN) 100 morning unit/mL (3 and 30 mL) Units in injection the evening. Insulin 0 Yes [id number] 30U inject 30 [facility] 3-23 Units ity of (LEVEMIR 00:00: [place] skin in Medical U-100 the Branch INSULN) 100 morning unit/mL (3 and 30 mL) Units in injection the evening. Insulin 0 Yes [id number] 30U inject 30 [facility] [place] 3-23 Units ity of (LEVEMIR 00:00: [place]LE[place] 00 skin in Medical U-100 the Branch INSULN) 100 morning unit/mL (3 and 30 mL) Units in injection the evening. Insulin 0 Yes [id number] 30U inject 30 [facility] 3-23 Units ity of (LEVEMIR 00:00: [place] skin in Medical U-100 the Branch INSULN) 100 morning unit/mL (3 and 30 mL) Units in injection the evening. Insulin 0 Yes [id number] 30U inject 30 [facility] 3-23 Units ity of (LEVEMIR 00:00: [place]LE[place] 00 skin in Medical U-100 the Branch INSULN) 100 morning unit/mL (3 and 30 mL) Units in injection the evening. Insulin 0 Yes [id number] 30U inject 30 [facility] 3-23 Units ity of (LEVEMIR 00:00: [place] 00 skin in Medical U-100 the Branch INSULN) 100 morning unit/mL (3 and 30 mL) Units in injection the evening. Insulin 0 Yes [id number] 30U inject 30 [facility] 3-23 Units ity of (LEVEMIR 00:00: [place]LE[place] 00 skin in Medical U-100 the Branch INSULN) 100 morning unit/mL (3 and 30 mL) Units in injection the evening. Insulin 0 Yes [id number] 30U inject 30 [facility] 3-23 Units ity of (LEVEMIR 00:00: [place] 00 skin in Medical U-100 the Branch INSULN) 100 morning unit/mL (3 and 30 mL) Units in injection the evening. Insulin Yes [id number] 30U inject 30 [facility] 3-23 Units ity of (LEVEMIR 00:00: [place]LE[place] 00 skin in Medical U-100 the Branch INSULN) 100 morning unit/mL (3 and 30 mL) Units in injection the evening. Insulin Yes [id number] 30U inject 30 [facility] 3-23 Units ity of (LEVEMIR 00:00: [place] 00 skin in Medical U-100 the Branch INSULN) 100 morning unit/mL (3 and 30 mL) Units in injection the evening. Insulin 0 Yes [id number] 30U inject 30 [facility] 3-23 Units ity of (LEVEMIR 00:00: [place]LE[place] 00 skin in Medical U-100 the Branch INSULN) 100 morning unit/mL (3 and 30 mL) Units in injection the evening. Insulin 0 Yes [id number] 30U inject 30 [facility] 3-23 Units ity of (LEVEMIR 00:00: [place] 00 skin in Medical U-100 the Branch INSULN) 100 morning unit/mL (3 and 30 mL) Units in injection the evening. Insulin 2023-0 Yes [id number] 30U inject 30 [facility] 3-23 Units ity of (LEVEMIR 00:00: [place] 00 skin in Medical U-100 the Branch INSULN) 100 morning unit/mL (3 and 30 mL) Units in injection the evening. Insulin Yes [id number] 30U inject 30 [facility] 3-23 Units ity of (LEVEMIR 00:00: [place] 00 skin in Medical U-100 the Branch INSULN) 100 morning unit/mL (3 and 30 mL) Units in injection the evening. Insulin Yes [id number] 30U inject 30 [facility] 3-23 Units ity of (LEVEMIR 00:00: [place] 00 skin in Medical U-100 the Branch INSULN) 100 morning unit/mL (3 and 30 mL) Units in injection the evening. Insulin Yes [id number] 30U inject 30 [facility] 3-23 Units ity of (LEVEMIR 00:00: [place] skin in Medical U-100 the Branch INSULN) 100 morning unit/mL (3 and 30 mL) Units in injection the evening. Insulin Yes [id number] 30U inject 30 [facility] 3-23 Units it[facility] of ([place] skin in [facility] U-100 the Branch INSULN) 100 morning unit/mL (3 and 30 mL) Units in injection the evening. Insulin Yes [id number] 30U inject 30 [facility] 3-23 Units [facility]y of ([place] 00:[place] skin in [facility] U-100 the Branch INSULN) 100 morning unit/mL (3 and 30 mL) Units in injection the evening. Insulin Yes [id number] 30U inject 30 [facility] 3-23 Units [facility] of ([place] 00:[place]: [place] skin in [facility] U-100 the Branch INSULN) 100 morning unit/mL (3 and 30 mL) Units in injection the evening. Insulin 0 Yes [id number] 30U inject 30 [facility] 3-23 Units [facility]y of ([place] 00:[place]: [place] skin in [facility] U-100 the Branch INSULN) 100 morning unit/mL (3 and 30 mL) Units in injection the evening. Insulin Yes [id number] 30U inject 30 [facility] 3-23 Units [facility]y of ([place] 00:[place]: [place] skin in [facility] U-100 the Branch INSULN) 100 morning unit/mL (3 and 30 mL) Units in injection the evening. Insulin Yes [id number] 30U inject 30 [facility] [place] 3-23 Units [facility] of ([place] 00:[place]: [place] skin in [facility] U-100 the Branch INSULN) 100 morning unit/mL (3 and 30 mL) Units in injection the evening. Insulin Yes [id number] 30U inject 30 [facility] 3-23 Units ity of ([place] 00:[place]: [place] skin in [facility] U-100 the Branch INSULN) 100 morning unit/mL (3 and 30 mL) Units in injection the evening. Insulin Yes [id number] 30U inject 30 [facility] 3-23 Units [facility] of ([place] 00:[place]: [place] skin in [facility] U-100 the Branch INSULN) 100 morning unit/mL (3 and 30 mL) Units in injection the evening. Insulin Yes [id number] 30U inject 30 [facility] 3-23 Units [facility]y of ([place] 00:[place]: [place] skin in [facility] U-100 the Branch INSULN) 100 morning unit/mL (3 and 30 mL) Units in injection the evening. Insulin Yes [id number] 30U inject 30 [facility] 3-23 Units [facility] of ([place] 00:[place]: [place] skin in [facility] U-100 the Branch INSULN) 100 morning unit/mL (3 and 30 mL) Units in injection the evening. Insulin Yes [id number] 30U inject 30 [facility] [place] 3-23 Units [facility]y of ([place] 00:[place]: [place] skin in [facility] U-100 the Branch INSULN) 100 morning unit/mL (3 and 30 mL) Units in injection the evening. Insulin Yes [id number] 30U inject 30 [facility] 3-23 Units ity of ([place] 00:[place]: [place] skin in [facility] U-100 the Branch INSULN) 100 morning unit/mL (3 and 30 mL) Units in injection the evening. Insulin Yes [id number] 30U inject 30 [facility] 3-23 Units ity of ([place] 00:[place]: [place] skin in [facility] U-100 the Branch INSULN) 100 morning unit/mL (3 and 30 mL) Units in injection the evening. Insulin Yes [id number] 30U inject 30 [facility] 3-23 Units ity of ([place]: [place] [address] [facility] U-100 the Branch INSULN) 100 morning unit/mL (3 and 30 mL) Units in injection the evening. Insulin Yes [id number] 30U inject 30 [facility] [place] 3-23 Units ity of ([place] 00:[place]: [place] skin in Medical U-100 the Branch INSULN) 100 morning unit/mL (3 and 30 mL) Units in injection the evening. Insulin Yes [id number] 30U inject 30 [facility] [place] 3-23 Units ity of ([place] 00:[place]: [place] skin in Medical U-100 the Branch INSULN) 100 morning unit/mL (3 and 30 mL) Units in injection the evening. Insulin Yes [id number] 30U inject 30 [facility] [place] 3-23 Units ity of ([place] 00:[place]: [place] skin in [facility] U-100 the Branch INSULN) 100 morning unit/mL (3 and 30 mL) Units in injection the evening. Insulin Yes [id number] 30U inject 30 [facility] [place] 3-23 Units ity of ([place] 00:00: [place] skin in Medical U-100 the Branch INSULN) 100 morning unit/mL (3 and 30 mL) Units in injection the evening. Insulin 0 Yes [id number] 30U inject 30 [facility] [place] 3-23 Units ity of ([place] 00:00: [place] skin in Medical U-100 the Branch INSULN) 100 morning unit/mL (3 and 30 mL) Units in injection the evening. Insulin 0 Yes [id number] 30U inject 30 [facility] [place] 3-23 Units ity of ([place] 00:[place]: [place] skin in Medical U-100 the Branch INSULN) 100 morning unit/mL (3 and 30 mL) Units in injection the evening. Insulin 0 Yes [id number] 30U inject 30 [facility] [place] 3-23 Units ity of ([place] 00:00: [place] skin in Medical U-100 the Branch INSULN) 100 morning unit/mL (3 and 30 mL) Units in injection the evening. Insulin Yes [id number] 30U inject 30 [facility] [place] 3-23 Units ity of ([place] 00:00: [place] skin in Medical U-100 the Branch INSULN) 100 morning unit/mL (3 and 30 mL) Units in injection the evening. Insulin 0 Yes [id number] 30U inject 30 [facility] [place] 3-23 Units ity of ([place] 00:00: [place] skin in Medical U-100 the Branch INSULN) 100 morning unit/mL (3 and 30 mL) Units in injection the evening. Insulin 0 Yes [id number] 30U inject 30 [facility] [place] 3-23 Units ity of ([place] 00:00: [place] skin in Medical U-100 the Branch INSULN) 100 morning unit/mL (3 and 30 mL) Units in injection the evening. Insulin 0 Yes [id number] 30U inject 30 [facility] [place] 3-23 Units ity of ([place] 00:00: [place] skin in Medical U-100 the Branch INSULN) 100 morning unit/mL (3 and 30 mL) Units in injection the evening. Insulin Yes [id number] 30U inject 30 [facility] [place] 3-23 Units ity of ([place] 00:00: [place] skin in Medical U-100 the Branch INSULN) 100 morning unit/mL (3 and 30 mL) Units in injection the evening. Insulin 0 Yes [id number] 30U inject 30 [facility] [place] 3-23 Units ity of ([place] 00:00: [place] skin in Medical U-100 the Branch INSULN) 100 morning unit/mL (3 and 30 mL) Units in injection the evening. Insulin 0 Yes [id number] 30U inject 30 [facility] [place] 3-23 Units ity of ([place] 00:00: [place] skin in Medical U-100 the Branch INSULN) 100 morning unit/mL (3 and 30 mL) Units in injection the evening. Insulin Yes [id number] 30U inject 30 [facility] [place] 3-23 Units ity of ([place] 00:00: [place] skin in Medical U-100 the Branch INSULN) 100 morning unit/mL (3 and 30 mL) Units in injection the evening. Insulin 0 Yes [id number] 30U inject 30 [facility] [place] 3-23 Units ity of ([place] 00:00: [place] skin in Medical U-100 the Branch INSULN) 100 morning unit/mL (3 and 30 mL) Units in injection the evening. Insulin 0 Yes [id number] 30U inject 30 [facility] [place] 3-23 Units ity of ([place] 00:[place]: [place] skin in Medical U-100 the Branch INSULN) 100 morning unit/mL (3 and 30 mL) Units in injection the evening. insulin 2022- No 30U Inject 0.[address] [facility] [address] [facility] 3-23 06-03 mLs (30 [facility] Units Medical ([place] 00 :00 total) Center FlexTouch subcutaneo U-100 usly. Insuln) 100 unit/mL (3 mL) InPn injection insulin 2022- No 30U Inject 0.[address] [facility] [address] [facility] 3-23 06-03 mLs (30 [facility] 00:[facility]: [facility]:00 Units Medical ([place] 00 :00 total) Center FlexTouch subcutaneo U-100 usly. Insuln) 100 unit/mL (3 mL) InPn injection insulin 2022- No 30U Inject 0.[address] [facility] [address] [facility] 3-23 06-03 mLs (30 [facility] 00:[facility]: 00:00 Units Medical ([place] 00 :00 total) Center FlexTouch subcutaneo U-100 usly. Insuln) 100 unit/mL (3 mL) InPn injection insulin 2022- No 30U Inject 0.[address] [facility] [address] [facility] 3- 06-03 mLs (30 [facility] 00:00: 00:00 Units Medical ([place] 00 :00 total) Center FlexTouch subcutaneo U-100 usly. Insuln) 100 unit/mL (3 mL) InPn injection insulin 2022- No 30U Inject 0.[address] [facility] [address] [facility] 3-23 06-03 mLs (30 [facility] 00:00: 00:00 Units Medical ([place] 00 :00 total) Center FlexTouch subcutaneo U-100 usly. Insuln) 100 unit/mL (3 mL) InPn injection insulin 2022- No 30U Inject 0.[address] [facility] [address] [facility] 3-23 06-03 mLs (30 [facility] 00:00: 00:00 Units Medical ([place] 00 :00 total) Center FlexTouch subcutaneo U-100 usly. Insuln) 100 unit/mL (3 mL) InPn injection TAMSULOSIN Yes [id number] .4mg TAKE 1 [facility] 0.4 mg 24 3-08 CAPSULE BY ity of hr capsule 00:00: MOUTH 00 DAILY Medical Branch COLCHICINE Yes [id number] TAKE 1 [facility] 0.6 mg 3-08 TABLET BY ity of tablet 00:00: MOUTH DAILY Medical Branch TAMSULOSIN 2023-0 Yes [id number] .4mg TAKE 1 [facility] 0.4 mg 24 3-08 CAPSULE BY ity of hr capsule 00:00: DAILY Medical Branch COLCHICINE 2023-0 Yes [id number] TAKE 1 [facility] 0.6 mg 3-08 TABLET BY ity of tablet 00:00: DAILY Medical Branch TAMSULOSIN 2023-0 Yes [id number] .4mg TAKE 1 [facility] 0.4 mg 24 3-08 CAPSULE BY ity of hr capsule 00:00: DAILY Medical Branch COLCHICINE 2023-0 Yes [id number] TAKE 1 [facility] 0.6 mg 3-08 TABLET BY ity of tablet 00:00: DAILY Medical Branch TAMSULOSIN 2023-0 Yes [id number] .4mg TAKE 1 [facility] 0.4 mg 24 3-08 CAPSULE BY ity of hr capsule 00:00: DAILY Medical Branch COLCHICINE 2023-0 Yes [id number] TAKE 1 [facility] 0.6 mg 3-08 TABLET BY ity of tablet 00:00: DAILY Medical Branch TAMSULOSIN 2023-0 Yes [id number] .4mg TAKE 1 [facility] 0.4 mg 24 3-08 CAPSULE BY ity of hr capsule 00:00: DAILY Medical Branch COLCHICINE 2023-0 Yes [id number] TAKE 1 [facility] 0.6 mg 3-08 TABLET BY ity of tablet 00:00: DAILY Medical Branch TAMSULOSIN 2023-0 Yes [id number] .4mg TAKE 1 [facility] 0.4 mg 24 3-08 CAPSULE BY ity of hr capsule 00:00: DAILY Medical Branch COLCHICINE 2023-0 Yes [id number] TAKE 1 [facility] 0.6 mg 3-08 TABLET BY ity of tablet 00:00: DAILY Medical Branch TAMSULOSIN 2023-0 Yes [id number] .4mg TAKE 1 [facility] 0.4 mg 24 3-08 CAPSULE BY ity of hr capsule 00:00: DAILY Medical Branch COLCHICINE 2023-0 Yes [id number] TAKE 1 [facility] 0.6 mg 3-08 TABLET BY ity of tablet 00:00: DAILY Medical Branch TAMSULOSIN 2023-0 Yes [id number] .4mg TAKE 1 [facility] 0.4 mg 24 3-08 CAPSULE BY ity of hr capsule 00:00: MOUTH DAILY Medical Branch COLCHICINE 2023-0 Yes [id number] TAKE 1 [facility] 0.6 mg 3-08 TABLET BY ity of tablet 00:00: MOUTH DAILY Medical Branch TAMSULOSIN 2023-0 Yes [id number] .4mg TAKE 1 Univers 0.4 mg 24 3-08 CAPSULE BY ity of hr capsule 00:00: MOUTH DAILY Medical Branch COLCHICINE 2023-0 Yes [id number] TAKE 1 [facility] 0.6 mg 3-08 TABLET BY ity of tablet 00:00: MOUTH DAILY Medical Branch TAMSULOSIN 2023-0 Yes [id number] .4mg TAKE 1 [facility] 0.4 mg 24 3-08 CAPSULE BY ity of hr capsule 00:00: DAILY Medical Branch COLCHICINE 2023-0 Yes [id number] TAKE 1 [facility] 0.6 mg 3-08 TABLET BY ity of tablet 00:00: DAILY Medical Branch TAMSULOSIN 2023-0 Yes [id number] .4mg TAKE 1 [facility] 0.4 mg 24 3-08 CAPSULE BY ity of hr capsule 00:00: MOUTH DAILY Medical Branch COLCHICINE 2023-0 Yes [id number] TAKE 1 [facility] 0.6 mg 3-08 TABLET BY ity of tablet 00:00: DAILY Medical Branch TAMSULOSIN 2023-0 Yes [id number] .4mg TAKE 1 Univers 0.4 mg 24 3-08 CAPSULE BY ity of hr capsule 00:00: DAILY Medical Branch COLCHICINE 2023-0 Yes [id number] TAKE 1 [facility] 0.6 mg 3-08 TABLET BY ity of tablet 00:00: MOUTH DAILY Medical Branch TAMSULOSIN 2023-0 Yes [id number] .4mg TAKE 1 [facility] 0.4 mg 24 3-08 CAPSULE BY ity of hr capsule 00:00: MOUTH DAILY Medical Branch COLCHICINE 2023-0 Yes [id number] TAKE 1 [facility] 0.6 mg 3-08 TABLET BY ity of tablet 00:00: MOUTH DAILY Medical Branch TAMSULOSIN 2023-0 Yes [id number] .4mg TAKE 1 [facility] 0.4 mg 24 3-08 CAPSULE BY ity of hr capsule 00:00: MOUTH DAILY Medical Branch COLCHICINE 2023-0 Yes [id number] TAKE 1 [facility] 0.6 mg 3-08 TABLET BY ity of tablet 00:00: DAILY Medical Branch TAMSULOSIN 3-0 Yes [id number] .4mg TAKE 1 [facility] 0.4 mg 24 3-08 CAPSULE BY ity of hr capsule 00:00: DAILY Medical Branch TAMSULOSIN 3-0 Yes [id number] .4mg TAKE 1 [facility] 0.4 mg 24 3-08 CAPSULE BY ity of hr capsule 00:00: DAILY Medical Branch TAMSULOSIN 3-0 Yes [id number] .4mg TAKE 1 [facility] 0.4 mg 24 3-08 CAPSULE BY ity of hr capsule 00:00: DAILY Medical Branch TAMSULOSIN 3-0 Yes [id number] .4mg TAKE 1 [facility] 0.4 mg 24 3-08 CAPSULE BY ity of hr capsule 00:00: DAILY Medical Branch TAMSULOSIN 3-0 Yes [id number] .4mg TAKE 1 Univers 0.4 mg 24 3-08 CAPSULE BY ity of hr capsule 00:00: DAILY Medical Branch TAMSULOSIN 3-0 Yes [id number] .4mg TAKE 1 [facility] 0.4 mg 24 3-08 CAPSULE BY ity of hr capsule 00:00: DAILY Medical Branch TAMSULOSIN 3-0 Yes [id number] .4mg TAKE 1 [facility] 0.4 mg 24 3-08 CAPSULE BY ity of hr capsule 00:00: DAILY Medical Branch TAMSULOSIN 3-0 Yes [id number] .4mg TAKE 1 [facility] 0.4 mg 24 3-08 CAPSULE BY ity of hr capsule 00:00: DAILY Medical Branch TAMSULOSIN 3-0 Yes [id number] .4mg TAKE 1 [facility] 0.4 mg 24 3-08 CAPSULE BY ity of hr capsule 00:00: DAILY Medical Branch TAMSULOSIN 3-0 Yes [id number] .4mg TAKE 1 [facility] 0.4 mg 24 3-08 CAPSULE BY ity of hr capsule 00:00: DAILY Medical Branch TAMSULOSIN 3-0 Yes [id number] .4mg TAKE 1 Univers 0.4 mg 24 3-08 CAPSULE BY ity of hr capsule 00:00: MOUTH DAILY Medical Branch TAMSULOSIN 2023-0 Yes [id number] .4mg TAKE 1 [facility] 0.4 mg 24 3-08 CAPSULE BY ity of hr capsule 00:00: MOUTH DAILY Medical Branch TAMSULOSIN 3-0 Yes [id number] .4mg TAKE 1 [facility] 0.4 mg 24 3-08 CAPSULE BY ity of hr capsule 00:00: DAILY Medical Branch TAMSULOSIN 2023-0 Yes [id number] .4mg TAKE 1 [facility] 0.4 mg 24 3-08 CAPSULE BY ity of hr capsule 00:00: MOUTH DAILY Medical Branch TAMSULOSIN 3-0 Yes [id number] .4mg TAKE 1 [facility] 0.4 mg 24 3-08 CAPSULE BY ity of hr capsule 00:00: DAILY Medical Branch TAMSULOSIN 3-0 Yes [id number] .4mg TAKE 1 Univers 0.4 mg 24 3-08 CAPSULE BY ity of hr capsule 00:00: DAILY Medical Branch TAMSULOSIN 3-0 Yes [id number] .4mg TAKE 1 [facility] 0.4 mg 24 3-08 CAPSULE BY ity of hr capsule 00:00: DAILY Medical Branch TAMSULOSIN 3-0 Yes [id number] .4mg TAKE 1 [facility] 0.4 mg 24 3-08 CAPSULE BY ity of hr capsule 00:00: DAILY Medical Branch TAMSULOSIN 3-0 Yes [id number] .4mg TAKE 1 [facility] 0.4 mg 24 3-08 CAPSULE BY ity of hr capsule 00:00: DAILY Medical Branch TAMSULOSIN 2023-0 Yes [id number] .4mg TAKE 1 [facility] 0.4 mg 24 3-08 CAPSULE BY ity of hr capsule 00:00: DAILY Medical Branch TAMSULOSIN 3-0 Yes [id number] .4mg TAKE 1 [facility] 0.4 mg 24 3-08 CAPSULE BY ity of hr capsule 00:00: DAILY Medical Branch TAMSULOSIN 2023-0 Yes [id number] .4mg TAKE 1 [facility] 0.4 mg 24 3-08 CAPSULE BY ity of hr capsule 00:00: DAILY Medical Branch TAMSULOSIN 2023-0 Yes [id number] .4mg TAKE 1 [facility] 0.4 mg 24 3-08 CAPSULE BY ity of hr capsule 00:00: MOUTH DAILY Medical Branch TAMSULOSIN 2023-0 Yes [id number] .4mg TAKE 1 [facility] 0.4 mg 24 3-08 CAPSULE BY ity of hr capsule 00:00: MOUTH DAILY Medical Branch TAMSULOSIN 2023-0 Yes [id number] .4mg TAKE 1 [facility] 0.4 mg 24 3-08 CAPSULE BY ity of hr capsule 00:00: MOUTH DAILY Medical Branch TAMSULOSIN 2023-0 Yes [id number] .4mg TAKE 1 [facility] 0.4 mg 24 3-08 CAPSULE BY ity of hr capsule 00:00: MOUTH DAILY Medical Branch TAMSULOSIN 2023-0 Yes [id number] .4mg TAKE 1 [facility] 0.4 mg 24 3-08 CAPSULE BY ity of hr capsule 00:00: DAILY Medical Branch TAMSULOSIN 2023-0 Yes [id number] .4mg TAKE 1 [facility] 0.4 mg 24 3-08 CAPSULE BY ity of hr capsule 00:00: DAILY Medical Branch TAMSULOSIN 2023-0 Yes [id number] .4mg TAKE 1 [facility] 0.4 mg 24 3-08 CAPSULE BY ity of hr capsule 00:00: DAILY Medical Branch tamsulosin 2023-0 Yes .4mg QD Take [facility] Cap [facility]: (0.4 mg [facility] 24 hr 00 total) by Center capsule mouth in the morning. tamsulosin 2023-0 Yes .4mg QD Take 1 [facility] mg Cap 00:00: (0.4 mg [facility] [place] 24 hr 00 total) by Center capsule mouth in the morning. tamsulosin 2023-0 Yes .4mg QD Take 1 [facility] 0[facility]4 mg Cap 00:00: (0.4 mg [facility] [place] 24 hr 00 total) by Center capsule mouth in the morning. tamsulosin 2023-0 Yes .4mg QD Take 1 [facility] 0[facility]4 mg Cap 00:00: (0.4 mg [facility] [place] 24 hr 00 total) by Center capsule mouth in the morning. tamsulosin 2022-0 Yes .4mg QD Take 1 [facility] 0[facility]4 mg Cap 00:00: (0.4 mg [facility] [place] 24 hr 00 total) by Center capsule mouth in the morning. tamsulosin 2022-0 Yes .4mg QD Take 1 [facility] 0[facility] mg Cap 00:00: (0.4 mg [facility] [place] 24 hr 00 total) by Center capsule mouth in the morning. TAMSULOSIN 2022-0 2023- No [id number] .4mg TAKE 1 [facility] 0.4 mg 24 3-12 02-08 CAPSULE BY ity of hr capsule 00:00: 00:00 MOUTH [place] 00 :00 DAILY Medical Branch COLCHICINE 2022-0 2022- No [id number] TAKE 1 [facility] 0.6 mg 07-04-05 TABLET BY ity of tablet 00:00: 00:00 [facility] 00 : DAILY Medical Branch LORATADINE 2022-0 Yes [id number] TAKE 1 U nivers 10 mg 3-02 TABLET BY ity of tablet 00:00: MOUTH [place] 00 DAILY Medical Branch DOXAZOSIN 2 2022-0 Yes TAKE 1 Univ ers mg tablet 3-02 TABLET BY ity o f 00:00: MOUTH [place] [id number] EVERY Medical NIGHT AT Branch BEDTIME Insulin 2022-0 Yes [id number] 36U inject 36 U nivers Glargine 3-02 Units ity of ([place] 00:00: under the [place] [id number] [facility] U-100 the Branch INSULIN) morning. 100 unit/mL (3 mL) injection lisinopriL 2022-0 Yes [id number] 20mg Take 1 Un [facility] 20 mg 3-02 tablet by ity of tablet 00:00: mouth in [place] [address] the Medical morning Branch and 1 tablet in the evening. Insulin 2022-0 Yes [id number] 36U inject 36 U nivers Glargine 3-02 Units ity of ([place] 00:00: under the [place] [address] skin in Medical U-100 the Branch INSULIN) morning. 100 unit/mL (3 mL) injection lisinopriL 2022-0 Yes [id number] 20mg Take 1 [facility] 20 mg 3-02 tablet by ity of tablet 00:00: mouth in [place] 00 the Medical morning Branch and 1 tablet in the evening. LORATADINE 2022-0 Yes [id number] TAKE 1 U nivers 10 mg 3-02 TABLET BY ity of tablet 00:00: MOUTH [place] 00 DAILY Medical Branch DOXAZOSIN 2 2022-0 Yes TAKE 1 Univ ers mg tablet 3-02 TABLET BY ity o f 00:00: MOUTH [place] 00 EVERY Medical NIGHT AT Branch BEDTIME Insulin 2022-0 Yes [id number] 36U inject 36 U nivers Glargine 3-02 Units ity of ([place]ANTUS 00:00: under the [facility] 00 skin in Medical U-100 the Branch INSULIN) morning. 100 unit/mL (3 mL) injection lisinopriL 2022-0 Yes [id number] 20mg Take 1 [facility] [place] 20 mg 3-02 tablet by ity of tablet 00:00: mouth in [place] 00 the Medical morning Branch and 1 tablet in the evening. LORATADINE 2022-0 Yes [id number] TAKE 1 U nivers 10 mg 3-02 TABLET BY ity of tablet 00:00: MOUTH [place] DAILY Medical Branch DOXAZOSIN 2 0 Yes TAKE 1 Univ ers mg tablet 3-02 TABLET BY ity o f 00:00: MOUTH [place] EVERY Medical NIGHT AT Branch BEDTIME Insulin 2022-0 Yes [id number] 36U inject 36 U nivers Glargine 3-02 Units ity of ([place] 00:00: under the [facility] 00 skin in Medical U-100 the Branch INSULIN) morning. 100 unit/mL (3 mL) injection lisinopriL 2022-0 Yes [id number] 20mg Take 1 [facility] [place] 20 mg 3-02 tablet by ity of tablet 00:00: mouth in [place] 00 the Medical morning Branch and 1 tablet in the evening. LORATADINE 2022-0 Yes [id number] TAKE 1 U nivers 10 mg 3-02 TABLET BY ity of tablet 00:00: MOUTH [place] DAILY Medical Branch DOXAZOSIN 2 2022-0 Yes TAKE 1 Univ ers mg tablet 3-02 TABLET BY ity o f 00:00: MOUTH [place] 00 EVERY Medical NIGHT AT Branch BEDTIME Insulin 2022-0 Yes [id number] 36U inject 36 U nivers Glargine 3-02 Units ity of ([place]US 00:00: under the [place] 00 skin in Medical U-100 the Branch INSULIN) morning. 100 unit/mL (3 mL) injection lisinopriL 2022-0 Yes [id number] 20mg Take 1 [facility] [place] 20 mg 3-02 tablet by ity of tablet 00:00: mouth in [place] 00 the Medical morning Branch and 1 tablet in the evening. LORATADINE 2022-0 Yes [id number] TAKE 1 U nivers 10 mg 3-02 TABLET BY ity of tablet 00:00: MOUTH [place] DAILY Medical Branch DOXAZOSIN 2 2022-0 Yes TAKE 1 Univ ers mg tablet 3-02 TABLET BY ity o f 00:00: MOUTH [place] EVERY Medical NIGHT AT Branch BEDTIME Insulin 2022-0 Yes [id number] 36U inject 36 U nivers Glargine 3-02 Units ity of ([place]US 00:00: under the [facility] 00 skin in Medical U-100 the Branch INSULIN) morning. 100 unit/mL (3 mL) injection lisinopriL 2022-0 Yes [id number] 20mg Take 1 [facility] 20 mg 3-02 tablet by ity of tablet 00:00: mouth in [place] the Medical morning Branch and 1 tablet in the evening. LORATADINE 2022-0 Yes [id number] TAKE 1 U nivers 10 mg 3-02 TABLET BY ity of tablet 00:00: MOUTH [place] DAILY Medical Branch DOXAZOSIN 2 2022-0 Yes TAKE 1 Univ ers mg tablet 3-02 TABLET BY ity o f 00:00: MOUTH [place] EVERY Medical NIGHT AT Branch BEDTIME Insulin 2022-0 Yes [id number] 36U inject 36 U nivers Glargine 3-02 Units ity of (LANTUS 00:00: under the [facility] 00 skin in Medical U-100 the Branch INSULIN) morning. 100 unit/mL (3 mL) injection lisinopriL 2022-0 Yes [id number] 20mg Take 1 [facility] 20 mg 3-02 tablet by ity of tablet 00:00: mouth in [place] 00 the Medical morning Branch and 1 tablet in the evening. LORATADINE 2022-0 Yes [id number] TAKE 1 U nivers 10 mg 3-02 TABLET BY ity of tablet 00:00: MOUTH [place] DAILY Medical Branch DOXAZOSIN 2 2023-0 Yes TAKE 1 Univ ers mg tablet 3-02 TABLET BY ity o f 00:00: MOUTH [place] 00 EVERY Medical NIGHT AT Branch BEDTIME Insulin 2022-0 Yes [id number] 36U inject 36 U nivers Glargine 3-02 Units ity of (LANTUS 00:00: under the [facility] 00 skin in Medical U-100 the Branch INSULIN) morning. 100 unit/mL (3 mL) injection lisinopriL 2022-0 Yes [id number] 20mg Take 1 [facility] [place] 20 mg 3-02 tablet by ity of tablet 00:00: mouth in [place] 00 the Medical morning Branch and 1 tablet in the evening. LORATADINE 2022-0 Yes [id number] TAKE 1 U nivers 10 mg 3-02 TABLET BY ity of tablet 00:00: MOUTH [place] DAILY Medical Branch DOXAZOSIN 2 0 Yes TAKE 1 Univ ers mg tablet 3-02 TABLET BY ity o f 00:00: MOUTH [place] EVERY Medical NIGHT AT Branch BEDTIME Insulin 0 Yes [id number] 36U inject 36 U nivers Glargine 3-02 Units ity of (LANTUS 00:00: under the [facility] 00 skin in Medical U-100 the Branch INSULIN) morning. 100 unit/mL (3 mL) injection lisinopriL 2022-0 Yes [id number] 20mg Take 1 [facility] [place] 20 mg 3-02 tablet by ity of tablet 00:00: mouth in [place] 00 the Medical morning Branch and 1 tablet in the evening. LORATADINE 2022-0 Yes [id number] TAKE 1 U nivers 10 mg 3-02 TABLET BY ity of tablet 00:00: MOUTH [place] 00 DAILY Medical Branch DOXAZOSIN 2 0 Yes TAKE 1 Univ ers mg tablet 3-02 TABLET BY ity o f 00:00: MOUTH [place] EVERY Medical NIGHT AT Branch BEDTIME Insulin 2022-0 Yes [id number] 36U inject 36 U nivers Glargine 3-02 Units ity of ([facility]US 00:00: under the [place] [facility] U-100 the Branch INSULIN) morning. 100 unit/mL (3 mL) injection lisinopriL 2022-0 Yes [id number] 20mg Take 1 [facility] 20 mg 3-02 tablet by ity of tablet 00:00: mouth in [place] 00 the Medical morning Branch and 1 tablet in the evening. LORATADINE 2022-0 Yes [id number] TAKE 1 U nivers 10 mg 3-02 TABLET BY ity of tablet 00:00: MOUTH [place] 00 DAILY Medical Branch DOXAZOSIN 2 2022-0 Yes TAKE 1 Univ ers mg tablet 3-02 TABLET BY ity o f 00:00: MOUTH [place] 00 EVERY Medical NIGHT AT Branch BEDTIME Insulin 2022-0 Yes [id number] 36U inject 36 U nivers Glargine 3-02 Units ity of (LANTUS 00:00: under the [facility] 00 skin in Medical U-100 the Branch INSULIN) morning. 100 unit/mL (3 mL) injection lisinopriL 2022-0 Yes [id number] 20mg Take 1 [facility] 20 mg 3-02 tablet by ity of tablet 00:00: mouth in [place] 00 the Medical morning Branch and 1 tablet in the evening. LORATADINE 2022-0 Yes [id number] TAKE 1 U nivers 10 mg 3-02 TABLET BY ity of tablet 00:00: MOUTH [place] DAILY Medical Branch DOXAZOSIN 2 2022-0 Yes TAKE 1 Univ ers mg tablet 3-02 TABLET BY ity o f 00:00: MOUTH [place] 00 EVERY Medical NIGHT AT Branch BEDTIME Insulin 2022-0 Yes [id number] 36U inject 36 U nivers Glargine 3-02 Units ity of (LANTUS 00:00: under the [facility] 00 skin in Medical U-100 the Branch INSULIN) morning. 100 unit/mL (3 mL) injection lisinopriL 2022-0 Yes [id number] 20mg Take 1 [facility] 20 mg 3-02 tablet by [facility] of tablet 00:00: mouth in [place] 00 the Medical morning Branch and 1 tablet in the evening. LORATADINE 2022-0 Yes [id number] TAKE 1 [facility] 10 mg 3-02 TABLET BY ity of tablet 00:00: MOUTH [place] 00 DAILY Medical Branch DOXAZOSIN 2 2022-0 Yes TAKE 1 [facility] mg tablet 3-02 TABLET BY ity o f 00:00: MOUTH [place] 00 EVERY Medical NIGHT AT Branch BEDTIME Insulin 2022-0 Yes [id number] 36U inject 36 [facility] nivers Glargine 3-02 Units ity of (LANTUS 00:00: under the [place] [facility] 00 skin in Medical U-100 the Branch INSULIN) morning. 100 unit/mL (3 mL) injection lisinopriL 2022-0 Yes [id number] 20mg Take 1 [facility] 20 mg 3-02 tablet by ity of tablet 00:00: mouth in [place] 00 the Medical morning Branch and 1 tablet in the evening. LORATADINE 2022-0 Yes [id number] TAKE 1 [facility] 10 mg 3-02 TABLET BY ity of tablet 00:00: MOUTH [place] 00 DAILY Medical Branch DOXAZOSIN 2 2022-0 Yes TAKE 1 [facility] mg tablet 3-02 TABLET BY ity o f 00:00: MOUTH [place] EVERY Medical NIGHT AT Branch BEDTIME Insulin 2022-0 Yes [id number] 36U inject 36 [facility] n[facility] Glargine 3-02 Units ity of ([facility]US 00:00: under the [place] [facility] 00 skin in Medical U-100 the Branch INSULIN) morning. 100 unit/mL (3 mL) injection lisinopriL 2022-0 Yes [id number] 20mg Take 1 [facility] 20 mg 3-02 tablet by ity of tablet 00:00: mouth in [place] 00 the Medical morning Branch and 1 tablet in the evening. LORATADINE 2022-0 Yes [id number] TAKE 1 [facility] 10 mg 3-02 TABLET BY ity of tablet 00:00: MOUTH [place] DAILY Medical Branch DOXAZOSIN 2 2022-0 Yes TAKE 1 [facility] mg tablet 3-02 TABLET BY ity o f 00:00: MOUTH [place] EVERY Medical NIGHT AT Branch BEDTIME Insulin 2022-0 Yes [id number] 36U inject 36 [facility] n[facility] Glargine 3-02 Units ity of ([facility]US 00:00: under the [place] [facility] 00 skin in Medical U-100 the Branch INSULIN) morning. 100 unit/mL (3 mL) injection lisinopriL 2022-0 Yes [id number] 20mg Take 1 [facility] 20 mg 3-02 tablet by ity of tablet 00:00: mouth in [place] 00 the Medical morning Branch and 1 tablet in the evening. LORATADINE 2022-0 Yes [id number] TAKE 1 [facility] 10 mg 3-02 TABLET BY ity of tablet 00:00: MOUTH DAILY Medical Branch DOXAZOSIN 2 Yes TAKE 1 [facility] mg tablet 3-02 TABLET BY ity o f 00:00: MOUTH EVERY Medical NIGHT AT Branch BEDTIME Insulin 0 Yes [id number] 36U inject 36 [facility] n[facility] Glargine 3-02 Units ity of ([facility] 00:00: under the [place] [facility] 00 skin in Medical U-100 the Branch INSULIN) morning. 100 unit/mL (3 mL) injection lisinopriL 0 Yes [id number] 20mg Take 1 [facility] 20 mg 3-02 tablet by ity of tablet 00:00: mouth in [place] the Medical morning Branch and 1 tablet in the evening. DOXAZOSIN 2 Yes TAKE 1 [facility] mg tablet 3-02 TABLET BY ity o f 00:00: MOUTH EVERY Medical NIGHT AT Branch BEDTIME Insulin Yes [id number] 36U inject 36 [facility] n[facility] Glargine 3-02 Units ity of ([facility]US 00:00: under the [facility] 00 skin in Medical U-100 the Branch INSULIN) morning. 100 unit/mL (3 mL) injection lisinopriL 0 Yes [id number] 20mg Take 1 [facility] 20 mg 3-02 tablet by ity of tablet 00:00: mouth in [place] the Medical morning Branch and 1 tablet in the evening. DOXAZOSIN 2 Yes TAKE 1 [facility] mg tablet 3-02 TABLET BY ity o f 00:00: MOUTH EVERY Medical NIGHT AT Branch BEDTIME Insulin 0 Yes [id number] 36U inject 36 [facility] n[facility] Glargine 3-02 Units ity of ([facility]US 00:00: under the [place] [facility] 00 skin in Medical U-100 the Branch INSULIN) morning. 100 unit/mL (3 mL) injection lisinopriL 2022-0 Yes [id number] 20mg Take 1 [facility] 20 mg 3-02 tablet by ity of tablet 00:00: mouth in [place] the Medical morning Branch and 1 tablet in the evening. DOXAZOSIN 2 Yes TAKE 1 [facility] mg tablet 3-02 TABLET BY ity o f 00:00: MOUTH EVERY Medical NIGHT AT Branch BEDTIME Insulin Yes [id number] 36U inject 36 [facility] n[facility] Glargine 3-02 Units ity of ([facility]US 00:00: under the [place] [facility] 00 skin in Medical U-100 the Branch INSULIN) morning. 100 unit/mL (3 mL) injection lisinopriL 2022-0 Yes [id number] 20mg Take 1 [facility] 20 mg 3-02 tablet by ity of tablet 00:00: mouth in [place] 00 the Medical morning Branch and 1 tablet in the evening. DOXAZOSIN 2 0 Yes TAKE 1 [facility] mg tablet 3-02 TABLET BY ity o f 00:00: MOUTH [place] 00 EVERY Medical NIGHT AT Branch BEDTIME Insulin 2022-0 Yes [id number] 36U inject 36 [facility] nivers Glargine 3-02 Units ity of ([facility]US 00:00: under the [place] [facility] 00 skin in Medical U-100 the Branch INSULIN) morning. 100 unit/mL (3 mL) injection lisinopriL 2022-0 Yes [id number] 20mg Take 1 [facility] 20 mg 3-02 tablet by ity of tablet 00:00: mouth in [place] 00 the Medical morning Branch and 1 tablet in the evening. DOXAZOSIN 2 0 Yes TAKE 1 [facility] mg tablet 3-02 TABLET BY ity o f 00:00: MOUTH [place] 00 EVERY Medical NIGHT AT Branch BEDTIME Insulin 0 Yes [id number] 36U inject 36 [facility] nivers Glargine 3-02 Units ity of ([facility]US 00:00: under the [place] [facility] 00 skin in Medical U-100 the Branch INSULIN) morning. 100 unit/mL (3 mL) injection lisinopriL 2022-0 Yes [id number] 20mg Take 1 [facility] 20 mg 3-02 tablet by ity of tablet 00:00: mouth in [place] 00 the Medical morning Branch and 1 tablet in the evening. DOXAZOSIN 2 0 Yes TAKE 1 [facility] mg tablet 3-02 TABLET BY ity o f 00:00: MOUTH [place] 00 EVERY Medical NIGHT AT Branch BEDTIME Insulin 2022-0 Yes [id number] 36U inject 36 [facility] nivers Glargine 3-02 Units ity of (LANTUS 00:00: under the [place] [facility] 00 skin in Medical U-100 the Branch INSULIN) morning. 100 unit/mL (3 mL) injection lisinopriL 2022-0 Yes [id number] 20mg Take 1 [facility] 20 mg 3-02 tablet by ity of tablet 00:00: mouth in [place] 00 the Medical morning Branch and 1 tablet in the evening. DOXAZOSIN 2 2022-0 Yes TAKE 1 [facility] mg tablet 3-02 TABLET BY ity o f 00:00: MOUTH [place] 00 EVERY Medical NIGHT AT Branch BEDTIME Insulin 2022-0 Yes [id number] 36U inject 36 [facility] n[facility] Glargine 3-02 Units ity of (LANTUS 00:00: under the [place] [facility] 00 skin in Medical U-100 the Branch INSULIN) morning. 100 unit/mL (3 mL) injection lisinopriL 2022-0 Yes [id number] 20mg Take 1 [facility] 20 mg 3-02 tablet by ity of tablet 00:00: mouth in [place] 00 the Medical morning Branch and 1 tablet in the evening. DOXAZOSIN 2 2022-0 Yes TAKE 1 [facility] mg tablet 3-02 TABLET BY ity o f 00:00: MOUTH [place] 00 EVERY Medical NIGHT AT Branch BEDTIME Insulin 2022-0 Yes [id number] 36U inject 36 [facility] nivers Glargine 3-02 Units ity of (LANTUS 00:00: under the [place] [facility] [address] [facility] U-100 the Branch INSULIN) morning. 100 unit/mL (3 mL) injection lisinopriL 2022-0 Yes [id number] 20mg Take 1 [facility] 20 mg 3-02 tablet by ity of tablet 00:00: mouth in [place] [address] [facility] morning Branch and 1 tablet in the evening. DOXAZOSIN 2 2022-0 Yes TAKE 1 [facility] mg tablet 3-02 TABLET BY ity o f 00:00: MOUTH [place] 00 EVERY Medical NIGHT AT Branch BEDTIME Insulin 2022-0 Yes [id number] 36U inject 36 [facility] n[facility] Glargine 3-02 Units ity of (L[facility]US 00:00: under the [place] [facility] [address] [facility] U-100 the Branch INSULIN) morning. 100 unit/mL (3 mL) injection lisinopriL 3-0 Yes [id number] 20mg Take 1 [facility] 20 mg 3-02 tablet by ity of tablet 00:00: mouth in [place] 00 the Medical morning Branch and 1 tablet in the evening. DOXAZOSIN 2 Yes TAKE 1 [facility] mg tablet 3-02 TABLET BY ity o f 00:00: MOUTH [place] 00 EVERY Medical NIGHT AT Branch BEDTIME Insulin 0 Yes [id number] 36U inject 36 U nivers Glargine 3-02 Units ity of ([facility] 00:00: under the [place] [facility] 00 skin in Medical U-100 the Branch INSULIN) morning. 100 unit/mL (3 mL) injection lisinopriL 0 Yes [id number] 20mg Take 1 [facility] 20 mg 3-02 tablet by ity of tablet 00:00: mouth in [place] 00 the Medical morning Branch and 1 tablet in the evening. DOXAZOSIN 2 Yes TAKE 1 [facility] mg tablet 3-02 TABLET BY ity o f 00:00: MOUTH EVERY Medical NIGHT AT Branch BEDTIME Insulin Yes [id number] 36U inject 36 [facility] nivers Glargine 3-02 Units ity of ([facility]US 00:00: under the [place] [facility] 00 skin in Medical U-100 the Branch INSULIN) morning. 100 unit/mL (3 mL) injection lisinopriL 0 Yes [id number] 20mg Take 1 [facility] 20 mg 3-02 tablet by ity of tablet 00:00: mouth in [place] the Medical morning Branch and 1 tablet in the evening. DOXAZOSIN 2 Yes TAKE 1 [facility] mg tablet 3-02 TABLET BY ity o f 00:00: MOUTH EVERY Medical NIGHT AT Branch BEDTIME Insulin 0 Yes [id number] 36U inject 36 [facility] n[facility] Glargine 3-02 Units ity of ([facility]US 00:00: under the [place] [facility] 00 skin in Medical U-100 the Branch INSULIN) morning. 100 unit/mL (3 mL) injection lisinopriL 2022-0 Yes [id number] 20mg Take 1 [facility] 20 mg 3-02 tablet by ity of tablet 00:00: mouth in [place] 00 the Medical morning Branch and 1 tablet in the evening. DOXAZOSIN 2 Yes TAKE 1 [facility] mg tablet 3-02 TABLET BY ity o f 00:00: MOUTH [place] 00 EVERY Medical NIGHT AT Branch BEDTIME Insulin Yes [id number] 36U inject 36 U n[facility] Glargine 3-02 Units ity of ([facility]US 00:00: under the [place] [facility] 00 skin in Medical U-100 the Branch INSULIN) morning. 100 unit/mL (3 mL) injection lisinopriL 2022-0 Yes [id number] 20mg Take 1 [facility] 20 mg 3-02 tablet by ity of tablet 00:00: mouth in [place] 00 the Medical morning Branch and 1 tablet in the evening. DOXAZOSIN 2 2022-0 Yes TAKE 1 [facility] mg tablet 3-02 TABLET BY ity o f 00:00: MOUTH [place] 00 EVERY Medical NIGHT AT Branch BEDTIME Insulin 2022-0 Yes [id number] 36U inject 36 U nivers Glargine 3-02 Units ity of (LANTUS 00:00: under the [place] [facility] [address] [facility] the Branch INSULIN) morning. 100 unit/mL (3 mL) injection lisinopriL 2022-0 Yes [id number] 20mg Take 1 [facility] 20 mg 3-02 tablet by ity of tablet 00:00: mouth in [place] the [facility] morning Branch and 1 tablet in the evening. DOXAZOSIN 2 2022-0 Yes TAKE 1 [facility] mg tablet 3-02 TABLET BY ity o f 00:00: MOUTH EVERY Medical NIGHT AT [place] BEDTIME Insulin 2022-0 Yes [id number] 36U inject 36 U nivers Glargine 3-02 Units ity of (LANTUS 00:00: under the [place] [facility] [address] [facility] the Branch INSULIN) morning. 100 unit/mL (3 mL) injection lisinopriL 2022-0 Yes [id number] 20mg Take 1 [facility] 20 mg 3-02 tablet by ity of tablet 00:00: mouth in [place] 00 the Medical morning Branch and 1 tablet in the evening. Insulin 2022-0 Yes [id number] 36U inject 36 U nivers Glargine 3-02 Units ity of ([facility]ANTUS 00:00: under the [place] [facility] 00 skin in Medical U-100 the Branch INSULIN) morning. 100 unit/mL (3 mL) injection lisinopriL 2023-0 Yes [id number] 20mg Take 1 [facility] 20 mg 3-02 tablet by ity of tablet 00:00: mouth in [place] [address] [facility] morning Branch and 1 tablet in the evening. Insulin 2022-0 Yes [id number] 36U inject 36 U nivers Glargine 3-02 Units [facility]y [facility] [address] [facility] the Branch INSULIN) morning. 100 unit/mL (3 mL) injection lisinopriL 3-0 Yes [id number] 20mg Take 1 [facility] 20 mg 3-02 tablet by ity of tablet 00:00: mouth in [place] [address] [facility] morning Branch and 1 tablet in the evening. Insulin 2022-0 Yes [id number] 36U inject 36 U nivers Glargine 3-02 Units ity of (LANTUS 00:00: under the [place] [facility] [address] [facility] the Branch INSULIN) morning. 100 unit/mL (3 mL) injection lisinopriL 2022-0 Yes [id number] 20mg Take 1 [facility] 20 mg 3-02 tablet by ity of tablet 00:00: mouth in [place] [address] the [facility] Branch and 1 tablet in the evening. Insulin 2022-0 Yes [id number] 36U inject 36 U nivers Glargine 3-02 Units ity of ([facility]US 00:[facility] [address] [facility] the Branch INSULIN) morning. 100 unit/mL (3 mL) injection lisinopriL 2022-0 Yes [id number] 20mg Take 1 [facility] 20 mg 3-02 tablet by ity of tablet 00:00: mouth in [place] [address] [facility] morning Branch and 1 tablet in the evening. Insulin 2022-0 Yes [id number] 36U inject 36 U nivers Glargine 3-02 Units ity of (LANTUS 00:00: under the [place] [facility] [address] [facility] U-100 the Branch INSULIN) morning. 100 unit/mL (3 mL) injection lisinopriL 3-0 Yes [id number] 20mg Take 1 [facility] 20 mg 3-02 tablet by ity of tablet 00:00: mouth in [place] [address] the [facility] Branch and 1 tablet in the evening. Insulin 2022-0 Yes [id number] 36U inject 36 U nivers Glargine 3-02 Units ity of ([facility]ANTUS 00:00: under the [place] [facility] [address] [facility] U-100 the Branch INSULIN) morning. 100 unit/mL (3 mL) injection lisinopriL 2023-0 Yes [id number] 20mg Take 1 [facility] 20 mg 3-02 tablet by ity of tablet 00:00: mouth in [place] [address] [facility] morning Branch and 1 tablet in the evening. Insulin 3-0 Yes [id number] 36U inject 36 U nivers Glargine 3-02 Units ity of (LANTUS 00:00: under the [place] [facility] [address] [facility] the Branch INSULIN) morning. 100 unit/mL (3 mL) injection lisinopriL 2023-0 Yes [id number] 20mg Take 1 [facility] 20 mg 3-02 tablet by ity of tablet 00:00: mouth in [place] [address] [facility] morning Branch and 1 tablet in the evening. Insulin 2022-0 Yes [id number] 36U inject 36 U nivers Glargine 3-02 Units ity of (LANTUS 00:00: under the [place] [address] [facility] the Branch INSULIN) morning. 100 unit/mL (3 mL) injection lisinopriL 3-0 Yes [id number] 20mg Take 1 [facility] 20 mg 3-02 tablet by ity of tablet 00:00: mouth in [place] [address] [facility] morning Branch and 1 tablet in the evening. Insulin 2022-0 Yes [id number] 36U inject 36 U nivers Glargine 3-02 Units ity of (LANTUS 00:00: under the [facility] [address] [facility] the Branch INSULIN) morning. 100 unit/mL (3 mL) injection lisinopriL 2023-0 Yes [id number] 20mg Take 1 [facility] 20 mg 3-02 tablet by ity of tablet 00:00: mouth in [place] [address] [facility] morning Branch and 1 tablet in the evening. Insulin 3-0 Yes [id number] 36U inject 36 U nivers Glargine 3-02 Units ity of ([facility]US 00:00: under the [place] [facility] [address] [facility] U-100 the Branch INSULIN) morning. 100 unit/mL (3 mL) injection lisinopriL 2023-0 Yes [id number] 20mg Take 1 [facility] 20 mg 3-02 tablet by ity of tablet 00:00: mouth in [place] [address] [facility] morning Branch and 1 tablet in the evening. Insulin 2022-0 Yes [id number] 36U inject 36 U nivers Glargine 3-02 Units ity of ([facility]ANTUS 00:00: under the [place] [facility] [address] [facility] U-100 the Branch INSULIN) morning. 100 unit/mL (3 mL) injection lisinopriL 2023-0 Yes [id number] 20mg Take 1 [facility] 20 mg 3-02 tablet by ity of tablet 00:00: mouth in [place] [address] [facility] morning Branch and 1 tablet in the evening. Insulin 2022-0 Yes [id number] 36U inject 36 U nivers Glargine 3-02 Units ity of ([facility]US 00:00: under the [place] [facility] [address] [facility] U-100 the Branch INSULIN) morning. 100 unit/mL (3 mL) injection lisinopriL 3-0 Yes [id number] 20mg Take 1 [facility] 20 mg 3-02 tablet by ity of tablet 00:00: mouth in [place] [address] [facility] morning Branch and 1 tablet in the evening. Insulin 2022-0 Yes [id number] 36U inject 36 U nivers Glargine 3-02 Units ity of ([facility]US 00:00: under the [place] [facility] [address] [facility] U-100 the Branch INSULIN) morning. 100 unit/mL (3 mL) injection lisinopriL 3-0 Yes [id number] 20mg Take 1 [facility] 20 mg 3-02 tablet by ity of tablet 00:00: mouth in [place] [address] [facility] morning Branch and 1 tablet in the evening. Insulin 2022-0 Yes [id number] 36U inject 36 U nivers Glargine 3-02 Units ity of ([facility]US 00:00: under the [place] [facility] [address] [facility] U-100 the Branch INSULIN) morning. 100 unit/mL (3 mL) injection lisinopriL 2023-0 Yes [id number] 20mg Take 1 [facility] 20 mg 3-02 tablet by ity of tablet 00:00: mouth in [place] [address] [facility] morning Branch and 1 tablet in the evening. Insulin 2022-0 Yes [id number] 36U inject 36 U nivers Glargine 3-02 Units ity of ([facility]US 00:00: under the [place] [facility] [address] [facility] U-100 the Branch INSULIN) morning. 100 unit/mL (3 mL) injection lisinopriL 2023-0 Yes [id number] 20mg Take 1 [facility] 20 mg 3-02 tablet by ity of tablet 00:00: mouth in [place] [address] [facility] morning Branch and 1 tablet in the evening. Insulin 2022-0 Yes [id number] 36U inject 36 U nivers Glargine 3-02 Units ity of ([facility]US 00:00: under the [place] [facility] [address] [facility] U-100 the Branch INSULIN) morning. 100 unit/mL (3 mL) injection lisinopriL 2023-0 Yes [id number] 20mg Take 1 [facility] 20 mg 3-02 tablet by ity of tablet 00:00: mouth in [place] [address] [facility] morning Branch and 1 tablet in the evening. Insulin 2022-0 Yes [id number] 36U inject 36 U nivers Glargine 3-02 Units ity of ([facility]US 00:00: under the [place] [facility] [address] [facility] the Branch INSULIN) morning. 100 unit/mL (3 mL) injection lisinopriL 3-0 Yes [id number] 20mg Take 1 [facility] 20 mg 3-02 tablet by ity of tablet 00:00: mouth in [place] [address] [facility] morning Branch and 1 tablet in the evening. Insulin 2022-0 Yes [id number] 36U inject 36 U nivers Glargine 3-02 Units ity of ([facility]US 00:00: under the [place] [facility] [address] [facility] U-100 the Branch INSULIN) morning. 100 unit/mL (3 mL) injection lisinopriL 3-0 Yes [id number] 20mg Take 1 [facility] 20 mg 3-02 tablet by ity of tablet 00:00: mouth in [place] [address] [facility] morning Branch and 1 tablet in the evening. Insulin 2022-0 Yes [id number] 36U inject 36 U n[facility] Glargine 3-02 Units ity of ([facility]US 00:00: under the [place] [facility] [address] [facility] U-100 the Branch INSULIN) morning. 100 unit/mL (3 mL) injection lisinopriL 2023-0 Yes [id number] 20mg Take 1 [facility] 20 mg 3-02 tablet by ity of tablet 00:00: mouth in [place] [address] [facility] morning Branch and 1 tablet in the evening. Insulin 2022-0 Yes [id number] 36U inject 36 [facility] n[facility] Glargine 3-02 Units ity of ([facility]US 00:00: under the [place] [facility] [address] [facility] U-100 the Branch INSULIN) morning. 100 unit/mL (3 mL) injection lisinopriL 2023-0 Yes [id number] 20mg Take 1 [facility] 20 mg 3-02 tablet by ity of tablet 00:00: mouth in [place] [address] [facility] morning Branch and 1 tablet in the evening. Insulin 2022-0 Yes [id number] 36U inject 36 [facility] n[facility] Glargine 3-02 Units ity of ([facility]US 00:00: under the [place] [facility] [address] [facility] U-100 the Branch INSULIN) morning. 100 unit/mL (3 mL) injection lisinopriL 3-0 Yes [id number] 20mg Take 1 [facility] 20 mg 3-02 tablet by ity of tablet 00:00: mouth in [place] [address] [facility] morning Branch and 1 tablet in the evening. Insulin 2022-0 Yes [id number] 36U inject 36 U nivers Glargine 3-02 Units ity of ([facility]ANTUS 00:00: under the [place] [facility] [address] [facility] U-100 the Branch INSULIN) morning. 100 unit/mL (3 mL) injection lisinopriL 3-0 Yes [id number] 20mg Take 1 [facility] 20 mg 3-02 tablet by ity of tablet 00:00: mouth in [place] [address] [facility] morning Branch and 1 tablet in the evening. Insulin 2022-0 Yes [id number] 36U inject 36 U n[facility] Glargine 3-02 Units ity of ([facility]ANTUS 00:00: under the [place] [facility] [address] [facility] U-100 the Branch INSULIN) morning. 100 unit/mL (3 mL) injection lisinopriL 2023-0 Yes [id number] 20mg Take 1 [facility] 20 mg 3-02 tablet by ity of tablet 00:00: mouth in [place] [address] [facility] morning Branch and 1 tablet in the evening. Insulin 2022-0 Yes [id number] 36U inject 36 U n[facility] Glargine 3-02 Units ity of ([facility]US 00:00: under the [place] [facility] 00 skin in Medical U-100 the Branch INSULIN) morning. 100 unit/mL (3 mL) injection lisinopriL 2023-0 Yes [id number] 20mg Take 1 [facility] 20 mg 3-02 tablet by ity of tablet 00:00: mouth in [place] 00 the Medical morning Branch and 1 tablet in the evening. Insulin 2022-0 Yes [id number] 36U inject 36 U nivers Glargine 3-02 Units ity of ([facility]ANTUS 00:00: under the [place] [facility] 00 skin in Medical U-100 the Branch INSULIN) morning. 100 unit/mL (3 mL) injection lisinopriL 2023-0 Yes [id number] 20mg Take 1 [facility] 20 mg 3-02 tablet by ity of tablet 00:00: mouth in [place] [address] [facility] morning Branch and 1 tablet in the evening. Insulin 2022-0 Yes [id number] 36U inject 36 U nivers Glargine 3-02 Units ity of (LANTUS 00:00: under the [place] [facility] [address] [facility] U-100 the Branch INSULIN) morning. 100 unit/mL (3 mL) injection lisinopriL 3-0 Yes [id number] 20mg Take 1 [facility] 20 mg 3-02 tablet by ity of tablet 00:00: mouth in [place] [address] [address] [facility] morning Branch and 1 tablet in the evening. Insulin 2022-0 Yes [id number] 36U inject 36 U nivers Glargine 3-02 Units ity of (LANTUS 00:00: under the [place] [facility] 00 skin in Medical U-100 the Branch INSULIN) morning. 100 unit/mL (3 mL) injection lisinopriL 3-0 Yes [id number] 20mg Take 1 [facility] 20 mg 3-02 tablet by ity of tablet 00:00: mouth in [place] [address] [address] [facility] morning Branch and 1 tablet in the evening. Insulin 2022-0 Yes [id number] 36U inject 36 U nivers Glargine 3-02 Units ity of (LANTUS 00:00: under the [place] [facility] 00 skin in Medical U-100 the Branch INSULIN) morning. 100 unit/mL (3 mL) injection lisinopriL 2023-0 Yes [id number] 20mg Take 1 [facility] 20 mg 3-02 tablet by ity of tablet 00:00: mouth in [place] 00 the Medical morning Branch and 1 tablet in the evening. Insulin 2022-0 Yes [id number] 36U inject 36 U nivers Glargine 3-02 Units ity of ([facility]US 00:00: under the [place] [facility] [address] [facility] U-100 the Branch INSULIN) morning. 100 unit/mL (3 mL) injection lisinopriL 2022-0 Yes [id number] 20mg Take 1 [facility] 20 mg 3-02 tablet by ity of tablet 00:00: mouth in [place] [address] the Medical morning Branch and 1 tablet in the evening. Insulin 2022-0 Yes [id number] 36U inject 36 U nivers Glargine 3-02 Units ity of ([facility]US 00:00: under the [place] [facility] [address] [facility] U-100 the Branch INSULIN) morning. 100 unit/mL (3 mL) injection lisinopriL 2022-0 Yes [id number] 20mg Take 1 [facility] [place] 20 mg 3-02 tablet by ity of tablet 00:00: mouth in [place] [address] [address] [facility] morning Branch and 1 tablet in the evening. Insulin 2022-0 Yes [id number] 36U inject 36 U nivers [place] 3-02 Units ity of (LANTUS 00:00: under the [place] [facility] [address] [facility] U-100 the Branch INSULIN) morning. 100 unit/mL (3 mL) injection lisinopriL 2022-0 Yes [id number] 20mg Take 1 [facility] 20 mg 3-02 tablet by ity of tablet 00:00: mouth in [place] [address] [facility] morning Branch and 1 tablet in the evening. Insulin 2022-0 Yes [id number] 36U inject 36 U n[facility] [place]arg[place] 3-02 Units ity of (LANTUS 00:00: under the [place] [facility] [address] [facility] U-100 the Branch INSULIN) morning. 100 unit/mL (3 mL) injection lisinopriL 2022-0 Yes [id number] 20mg Take 1 [facility] [place] 20 mg 3-02 tablet by ity of tablet 00:00: mouth in [place] [address] [facility] morning Branch and 1 tablet in the evening. Insulin 2022-0 Yes [id number] 36U inject 36 U nivers [place]arg[place] 3-02 Units ity of (LANTUS 00:00: under the [place] [facility] 00 skin in Medical U-100 the Branch INSULIN) morning. 100 unit/mL (3 mL) injection lisinopriL 2023-0 Yes [id number] 20mg Take 1 Un awilda 20 mg 3-02 tablet by ity of tablet 00:00: mouth in [place] 00 the Medical morning Branch and 1 tablet in the evening. Insulin 2022-0 Yes [id number] 36U inject 36 U nivers Glargine 3-02 Units ity of ([facility]US 00:00: under the [place] [facility] 00 skin in Medical U-100 the Branch INSULIN) morning. 100 unit/mL (3 mL) injection lisinopriL 3-0 Yes [id number] 20mg Take 1 Un awilda 20 mg 3-02 tablet by ity of tablet 00:00: mouth in [place] [address] the Medical morning Branch and 1 tablet in the evening. Insulin 2022-0 Yes [id number] 36U inject 36 U nivers Glargine 3-02 Units ity of ([facility]US 00:00: under the [place] [facility] 00 skin in Medical U-100 the Branch INSULIN) morning. 100 unit/mL (3 mL) injection lisinopriL 3-0 Yes [id number] 20mg Take 1 Un awilda 20 mg 3-02 tablet by ity of tablet 00:00: mouth in [place] 00 the Medical morning Branch and 1 tablet in the evening. Insulin 2022-0 Yes [id number] 36U inject 36 U nivers Glargine 3-02 Units ity of ([facility]ANTUS 00:00: under the [place] [facility] 00 skin in Medical U-100 the Branch INSULIN) morning. 100 unit/mL (3 mL) injection lisinopriL 3-0 Yes [id number] 20mg Take 1 Un awilda 20 mg 3-02 tablet by ity of tablet 00:00: mouth in [place] [address] the Medical morning Branch and 1 tablet in the evening. Insulin 2022-0 Yes [id number] 36U inject 36 U nivers Glargine 3-02 Units ity of ([facility]US 00:00: under the [place] [facility] 00 skin in Medical U-100 the Branch INSULIN) morning. 100 unit/mL (3 mL) injection lisinopriL 2023-0 Yes [id number] 20mg Take 1 Un awilda 20 mg 3-02 tablet by ity of tablet 00:00: mouth in [place] 00 the Medical morning Branch and 1 tablet in the evening. Insulin 2022-0 Yes [id number] 36U inject 36 U nivers Glargine 3-02 Units ity of ([facility]US 00:00: under the [place] [facility] 00 skin in Medical U-100 the Branch INSULIN) morning. 100 unit/mL (3 mL) injection lisinopriL 2022-0 Yes [id number] 20mg Take 1 Un awilda 20 mg 3-02 tablet by ity of tablet 00:00: mouth in [place] 00 the Medical morning Branch and 1 tablet in the evening. Insulin 2022-0 Yes [id number] 36U inject 36 U nivers Glargine 3-02 Units ity of ([facility]US 00:00: under the [place] [facility] 00 skin in Medical U-100 the Branch INSULIN) morning. 100 unit/mL (3 mL) injection lisinopriL 2022-0 Yes [id number] 20mg Take 1 Un awilda 20 mg 3-02 tablet by ity of tablet 00:00: mouth in [place] [address] [facility] morning Branch and 1 tablet in the evening. Insulin 2022-0 Yes [id number] 36U inject 36 U nivers Glargine 3-02 Units ity of ([facility]US 00:00: under the [place] [facility] 00 skin in Medical U-100 the Branch INSULIN) morning. 100 unit/mL (3 mL) injection lisinopriL 2022-0 Yes [id number] 20mg Take 1 Un awilda 20 mg 3-02 tablet by ity of tablet 00:00: mouth in [place] [address] [facility] morning Branch and 1 tablet in the evening. Insulin 2022-0 Yes [id number] 36U inject 36 U nivers Glargine 3-02 Units ity of ([facility]ANTUS 00:00: under the [place] [facility] 00 skin in Medical U-100 the Branch INSULIN) morning. 100 unit/mL (3 mL) injection Insulin 2022-0 Yes [id number] 36U inject 36 U nivers Glargine 3-02 Units ity of ([facility] 00:00: under the [place] [facility] 00 skin in Medical U-100 the Branch INSULIN) morning. 100 unit/mL (3 mL) injection Insulin Yes [id number] 36U inject 36 U nivers Glargine 3-02 Units ity of ([facility] 00:00: under the [place] [facility] 00 skin in Medical U-100 the Branch INSULIN) morning. 100 unit/mL (3 mL) injection Insulin Yes [id number] 36U inject 36 U nivers Glargine 3-02 Units ity of ([facility] 00:00: under the [place] [facility] 00 skin in Medical U-100 the Branch INSULIN) morning. 100 unit/mL (3 mL) injection Insulin Yes [id number] 36U inject 36 U nivers Glargine 3-02 Units ity of ([facility]US 00:00: under the [place] [facility] 00 skin in Medical U-100 the Branch INSULIN) morning. 100 unit/mL (3 mL) injection Insulin Yes [id number] 36U inject 36 U nivers Glargine 3-02 Units ity of ([facility] 00:00: under the [place] [facility] 00 skin in Medical U-100 the Branch INSULIN) morning. 100 unit/mL (3 mL) injection Insulin Yes [id number] 36U inject 36 U nivers Glargine 3-02 Units ity of ([facility] 00:00: under the [place] [facility] 00 skin in Medical U-100 the Branch INSULIN) morning. 100 unit/mL (3 mL) injection Insulin Yes [id number] 36U inject 36 U nivers Glargine 3-02 Units ity of ([facility] 00:00: under the [place] [facility] 00 skin in Medical U-100 the Branch INSULIN) morning. 100 unit/mL (3 mL) injection Insulin Yes [id number] 36U inject 36 U nivers Glargine 3-02 Units ity of ([facility] 00:00: under the [place] [facility] 00 skin in Medical U-100 the Branch INSULIN) morning. 100 unit/mL (3 mL) injection Insulin Yes [id number] 36U inject 36 U nivers Glargine 3-02 Units ity of ([facility] 00:00: under the [place] [facility] 00 skin in Medical U-100 the Branch INSULIN) morning. 100 unit/mL (3 mL) injection Insulin Yes [id number] 36U inject 36 U nivers Glargine 3-02 Units ity of ([facility] 00:00: under the [place] [facility] 00 skin in Medical U-100 the Branch INSULIN) morning. 100 unit/mL (3 mL) injection Insulin Yes [id number] 36U inject 36 U nivers Glargine 3-02 Units ity of ([facility]US 00:00: under the [place] [facility] 00 skin in Medical U-100 the Branch INSULIN) morning. 100 unit/mL (3 mL) injection Insulin Yes [id number] 36U inject 36 U nivers Glargine 3-02 Units ity of ([facility] 00:00: under the [place] [facility] 00 skin in Medical U-100 the Branch INSULIN) morning. 100 unit/mL (3 mL) injection Insulin Yes [id number] 36U inject 36 U nivers Glargine 3-02 Units ity of ([facility] 00:00: under the [place] [facility] 00 skin in Medical U-100 the Branch INSULIN) morning. 100 unit/mL (3 mL) injection Insulin Yes [id number] 36U inject 36 U nivers Glargine 3-02 Units ity of ([facility]US 00:00: under the [place] [facility] 00 skin in Medical U-100 the Branch INSULIN) morning. 100 unit/mL (3 mL) injection Insulin Yes [id number] 36U inject 36 U nivers Glargine 3-02 Units ity of ([facility]US 00:00: under the [place] [facility] 00 skin in Medical U-100 the Branch INSULIN) morning. 100 unit/mL (3 mL) injection Insulin 0 Yes [id number] 36U inject 36 U nivers Glargine 3-02 Units ity of ([facility]US 00:00: under the [place] [facility] 00 skin in Medical U-100 the Branch INSULIN) morning. 100 unit/mL (3 mL) injection Insulin Yes [id number] 36U inject 36 U nivers Glargine 3-02 Units ity of ([facility]US 00:00: under the [place] [facility] 00 skin in Medical U-100 the Branch INSULIN) morning. 100 unit/mL (3 mL) injection Insulin Yes [id number] 36U inject 36 U nivers Glargine 3-02 Units ity of (LANTUS 00:00: under the [place] [address] skin in Medical U-100 the Branch INSULIN) morning. 100 unit/mL (3 mL) injection Insulin Yes [id number] 36U inject 36 U nivers Glargine 3-02 Units ity of (LANTUS 00:00: under the [place] [address] skin in Medical U-100 the Branch INSULIN) morning. 100 unit/mL (3 mL) injection lisinopriL 2022- No [id number] 20mg Take 1 U nivers 20 mg -12-19 tablet by ity of tablet 00:00: 00:00 mouth in [place] 00 :[address] [facility] morning Branch and 1 tablet in the evening. DOXAZOSIN 2 2022- No TAKE 1 Uni vers mg tablet 06-28- TABLET BY ity of 00:00: 00:00 MOUTH [place] 00 :00 EVERY Medical NIGHT AT Branch BEDTIME LORATADINE 2022- No [id number] TAKE 1 [facility] 10 mg -06 01-30 TABLET BY ity of tablet 00:00: 00:00 [facility] 00 :00 DAILY Medical Branch LORATADINE 2022- No [id number] TAKE 1 Univers 10 mg 3-06 01-30 TABLET BY ity of tablet 00:00: 00:00 [facility] 00 :[address] [facility] Branch metFORMIN 2022- No [facility] (GLUCOPHAGE 06-27 Tablet(s) Adrianne kes ) 500 MG 00:00: 00:00 By Mouth Medi fatemeh tablet 00 :00 Morning- Center ening metFORMIN 2022- No [facility] (GLUCOPHAGE 06-27 Tablet(s) Adrianne kes ) 500 MG 00:00: 00:00 By Mouth Medi [facility] tablet 00 :00 Morning- Center ening metFORMIN 2022- No [facility] (GLUCOPHAGE 06-27 Tablet(s) Adrianne kes ) 500 MG 00:00: 00:00 By Mouth Medi [facility] tablet 00 :00 Morning-Ev Center ening metFORMIN 2022-0 3- No [facility] (GLUCOPHAGE 3-01 06-03 Tablet(s) Adrianne kes ) 500 MG 00:00: 00:00 By Mouth Medi [facility] tablet 00 :00 Morning-Ev Center ening metFORMIN 2022-0 2023- No [facility] (GLUCOPHAGE 3- 06-03 Tablet(s) Adrianne kes ) 500 MG 00:00: 00:00 By Mouth Medi fatem[facility] tablet 00 :00 Morning-Ev Center ening metFORMIN 2022-0 3- No [facility] (GLUCOPHAGE 3- 06-03 Tablet(s) Adrianne kes ) 500 MG 00:00: 00:00 By Mouth Medi fatem[facility] tablet 00 :00 Morning-Ev Center [facility] metoprolol 2022-0 Yes [id number] 25mg Take 1 Univers tartrate 25 2-15 tablet by ity of mg tablet 00:00: [place] 00 the Medical morning Branch and 1 tablet in the evening. metoprolol 2022-0 Yes [id number] 25mg Take 1 Univers tartrate 25 2-15 tablet by ity of mg tablet 00:00: [place] 00 the Medical morning Branch and 1 tablet in the evening. metoprolol 2022-0 Yes [id number] 25mg Take 1 Univers tartrate 25 2-15 tablet by ity of mg tablet 00:00: mouth [place] 00 the Medical morning Branch and 1 tablet in the evening. metoprolol 2022-0 Yes [id number] 25mg Take 1 [facility] tartrate 25 2-15 tablet by ity of mg tablet 00:00: [place] 00 the Medical morning Branch and 1 tablet in the evening. metoprolol 2022-0 Yes [id number] 25mg Take 1 Univers tartrate 25 2-15 tablet by ity of mg tablet 00:00: mouth [place] 00 the Medical morning Branch and 1 tablet in the evening. metoprolol 3-0 Yes [id number] 25mg Take 1 Univers tartrate 25 2-15 tablet by ity of mg tablet 00:00: mouth [place] 00 the Medical morning Branch and 1 tablet in the evening. metoprolol 3-0 Yes [id number] 25mg Take 1 Univers tartrate 25 2-15 tablet by ity of mg tablet 00:00: mouth [place] 00 the Medical morning Branch and 1 tablet in the evening. metoprolol 3-0 Yes [id number] 25mg Take 1 Univers tartrate 25 2-15 tablet by ity of mg tablet 00:00: mouth [place] 00 the Medical morning Branch and 1 tablet in the evening. metoprolol 3-0 Yes [id number] 25mg Take 1 Univers tartrate 25 2-15 tablet by ity of mg tablet 00:00: mouth [place] 00 the Medical morning Branch and 1 tablet in the evening. metoprolol 3-0 Yes [id number] 25mg Take 1 Univers tartrate 25 2-15 tablet by ity of mg tablet 00:00: mouth [place] 00 the Medical morning Branch and 1 tablet in the evening. metoprolol 3-0 Yes [id number] 25mg Take 1 Univers tartrate 25 2-15 tablet by ity of mg tablet 00:00: mouth [place] 00 the Medical morning Branch and 1 tablet in the evening. metoprolol 2022-0 Yes [id number] 25mg Take 1 Univers tartrate 25 2-15 tablet by ity of mg tablet 00:00: mouth [place] 00 the Medical morning Branch and 1 tablet in the evening. metoprolol 3-0 Yes [id number] 25mg Take 1 Univers tartrate 25 2-15 tablet by ity of mg tablet 00:00: mouth [place] 00 the Medical morning Branch and 1 tablet in the evening. metoprolol 3-0 Yes [id number] 25mg Take 1 Univers tartrate 25 2-15 tablet by ity of mg tablet 00:00: mouth [place] 00 the Medical morning Branch and 1 tablet in the evening. metoprolol 2023-0 Yes [id number] 25mg Take 1 Univers tartrate 25 2-15 tablet by ity of mg tablet 00:00: mouth [place] 00 the Medical morning Branch and 1 tablet in the evening. metoprolol 3-0 Yes [id number] 25mg Take 1 Univers tartrate 25 2-15 tablet by ity of mg tablet 00:00: mouth [place] 00 the Medical morning Branch and 1 tablet in the evening. metoprolol 2023-0 Yes [id number] 25mg Take 1 Univers tartrate 25 2-15 tablet by ity of mg tablet 00:00: mouth [place] 00 the Medical morning Branch and 1 tablet in the evening. metoprolol 2023-0 Yes [id number] 25mg Take 1 Univers tartrate 25 2-15 tablet by ity of mg tablet 00:00: mouth [place] 00 the Medical morning Branch and 1 tablet in the evening. metoprolol 2023-0 Yes [id number] 25mg Take 1 Univers tartrate 25 2-15 tablet by ity of mg tablet 00:00: mouth [place] 00 the Medical morning Branch and 1 tablet in the evening. metoprolol 2023-0 Yes [id number] 25mg Take 1 Univers tartrate 25 2-15 tablet by ity of mg tablet 00:00: mouth [place] 00 the Medical morning Branch and 1 tablet in the evening. metoprolol 3-0 Yes [id number] 25mg Take 1 Univers tartrate 25 2-15 tablet by ity of mg tablet 00:00: mouth [place] 00 the Medical morning Branch and 1 tablet in the evening. metoprolol 3-0 Yes [id number] 25mg Take 1 Univers tartrate 25 2-15 tablet by ity of mg tablet 00:00: mouth [place] 00 the Medical morning Branch and 1 tablet in the evening. metoprolol 3-0 Yes [id number] 25mg Take 1 Univers tartrate 25 2-15 tablet by ity of mg tablet 00:00: mouth [place] 00 the Medical morning Branch and 1 tablet in the evening. metoprolol 2023-0 Yes [id number] 25mg Take 1 Univers tartrate 25 2-15 tablet by ity of mg tablet 00:00: mouth [place] 00 the Medical morning Branch and 1 tablet in the evening. metoprolol 2023-0 Yes [id number] 25mg Take 1 Univers tartrate 25 2-15 tablet by ity of mg tablet 00:00: mouth [place] 00 the Medical morning Branch and 1 tablet in the evening. metoprolol 2023-0 Yes [id number] 25mg Take 1 Univers tartrate 25 2-15 tablet by ity of mg tablet 00:00: mouth [place] 00 the Medical morning Branch and 1 tablet in the evening. metoprolol 2023-0 Yes [id number] 25mg Take 1 Univers tartrate 25 2-15 tablet by ity of mg tablet 00:00: mouth [place] 00 the Medical morning Branch and 1 tablet in the evening. metoprolol 3-0 Yes [id number] 25mg Take 1 Univers tartrate 25 2-15 tablet by ity of mg tablet 00:00: mouth [place] 00 the Medical morning Branch and 1 tablet in the evening. metoprolol 3-0 Yes [id number] 25mg Take 1 Univers tartrate 25 2-15 tablet by ity of mg tablet 00:00: mouth [place] 00 the Medical morning Branch and 1 tablet in the evening. metoprolol 3-0 Yes [id number] 25mg Take 1 Univers tartrate 25 2-15 tablet by ity of mg tablet 00:00: mouth [place] 00 the Medical morning Branch and 1 tablet in the evening. metoprolol 3-0 Yes [id number] 25mg Take 1 Univers tartrate 25 2-15 tablet by ity of mg tablet 00:00: mouth [place] 00 the Medical morning Branch and 1 tablet in the evening. metoprolol 3-0 Yes [id number] 25mg Take 1 Univers tartrate 25 2-15 tablet by ity of mg tablet 00:00: mouth [place] 00 the Medical morning Branch and 1 tablet in the evening. metoprolol 3-0 Yes [id number] 25mg Take 1 Univers tartrate 25 2-15 tablet by ity of mg tablet 00:00: mouth [place] 00 the Medical morning Branch and 1 tablet in the evening. metoprolol 3-0 Yes [id number] 25mg Take 1 Univers tartrate 25 2-15 tablet by ity of mg tablet 00:00: mouth [place] 00 the Medical morning Branch and 1 tablet in the evening. metoprolol 2023-0 Yes [id number] 25mg Take 1 Univers tartrate 25 2-15 tablet by ity of mg tablet 00:00: mouth [place] 00 the Medical morning Branch and 1 tablet in the evening. metoprolol 2023-0 Yes [id number] 25mg Take 1 Univers tartrate 25 2-15 tablet by ity of mg tablet 00:00: mouth in [place] 00 the Medical morning Branch and 1 tablet in the evening. metoprolol 2023-0 Yes [id number] 25mg Take 1 Univers tartrate 25 2-15 tablet by ity of mg tablet 00:00: mouth in [place] 00 the Medical morning Branch and 1 tablet in the evening. metoprolol 3-0 Yes [id number] 25mg Take 1 [facility] tartrate 25 2-15 tablet by ity of mg tablet 00:00: mouth in [place] 00 the Medical morning Branch and 1 tablet in the evening. metoprolol 2022-0 Yes [id number] 25mg Take 1 Univers tartrate 25 2-15 tablet by ity of mg tablet 00:00: mouth [place] 00 the Medical morning Branch and 1 tablet in the evening. metoprolol 3-0 Yes [id number] 25mg Take 1 Univers tartrate 25 2-15 tablet by ity of mg tablet 00:00: mouth [place] 00 the Medical morning Branch and 1 tablet in the evening. metoprolol 2022-0 Yes [id number] 25mg Take 1 [facility] tartrate 25 2-15 tablet by ity of mg tablet 00:00: mouth [place] 00 the Medical morning Branch and 1 tablet in the evening. metoprolol 2022-0 Yes [id number] 25mg Take 1 [facility] tartrate 25 2-15 tablet by ity of mg tablet 00:00: mouth [place] 00 the Medical morning Branch and 1 tablet in the evening. metoprolol 3-0 Yes [id number] 25mg Take 1 [facility] tartrate 25 2-15 tablet by ity of mg tablet 00:00: mouth [place] 00 the Medical morning Branch and 1 tablet in the evening. metoprolol 3-0 Yes [id number] 25mg Take 1 [facility] tartrate 25 2-15 tablet by ity of mg tablet 00:00: mouth [place] 00 the Medical morning Branch and 1 tablet in the evening. metoprolol 3-0 Yes [id number] 25mg Take 1 Univers tartrate 25 2-15 tablet by ity of mg tablet 00:00: mouth [place] 00 the Medical morning Branch and 1 tablet in the evening. metoprolol 2023-0 Yes [id number] 25mg Take 1 Univers tartrate 25 2-15 tablet by ity of mg tablet 00:00: mouth [place] 00 the Medical morning Branch and 1 tablet in the evening. metoprolol 3-0 Yes [id number] 25mg Take 1 Univers tartrate 25 2-15 tablet by ity of mg tablet 00:00: mouth [place] 00 the Medical morning Branch and 1 tablet in the evening. metoprolol 2023-0 Yes [id number] 25mg Take 1 [facility] tartrate 25 2-15 tablet by ity of mg tablet 00:00: mouth [place] 00 the Medical morning Branch and 1 tablet in the evening. metoprolol 3-0 Yes [id number] 25mg Take 1 [facility] tartrate 25 2-15 tablet by ity of mg tablet 00:00: mouth [place] 00 the Medical morning Branch and 1 tablet in the evening. metoprolol 2022-0 Yes [id number] 25mg Take 1 [facility] tartrate 25 2-15 tablet by ity of mg tablet 00:00: mouth [place] 00 the Medical morning Branch and 1 tablet in the evening. metoprolol 2022-0 Yes [id number] 25mg Take 1 [facility] tartrate 25 2-15 tablet by ity of mg tablet 00:00: mouth [place] 00 the Medical morning Branch and 1 tablet in the evening. metoprolol 3-0 Yes [id number] 25mg Take 1 [facility] tartrate 25 2-15 tablet by ity of mg tablet 00:00: mouth [place] 00 the Medical morning Branch and 1 tablet in the evening. metoprolol 3-0 Yes [id number] 25mg Take 1 [facility] tartrate 25 2-15 tablet by ity of mg tablet 00:00: mouth [place] 00 the Medical morning Branch and 1 tablet in the evening. metoprolol 3-0 Yes [id number] 25mg Take 1 [facility] tartrate 25 2-15 tablet by ity of mg tablet 00:00: mouth [place] 00 the Medical morning Branch and 1 tablet in the evening. metoprolol 3-0 Yes [id number] 25mg Take 1 [facility] tartrate 25 2-15 tablet by ity of mg tablet 00:00: mouth [place] 00 the Medical morning Branch and 1 tablet in the evening. metoprolol 2023-0 Yes [id number] 25mg Take 1 [facility] tartrate 25 2-15 tablet by ity of mg tablet 00:00: mouth [place] 00 the Medical morning Branch and 1 tablet in the evening. metoprolol 3-0 Yes [id number] 25mg Take 1 [facility] tartrate 25 2-15 tablet by ity of mg tablet 00:00: mouth [place] 00 the Medical morning Branch and 1 tablet in the evening. metoprolol 2022-0 Yes [id number] 25mg Take 1 [facility] tartrate 25 2-15 tablet by ity of mg tablet 00:00: mouth in [place] 00 the Medical morning Branch and 1 tablet in the evening. metoprolol 3-0 Yes [id number] 25mg Take 1 Univers tartrate 25 2-15 tablet by ity of mg tablet 00:00: mouth in [place] 00 the Medical morning Branch and 1 tablet in the evening. metoprolol 2022-0 Yes [id number] 25mg Take 1 Univers tartrate 25 2-15 tablet by ity of mg tablet 00:00: mouth [place] 00 the Medical morning Branch and 1 tablet in the evening. metoprolol 2022-0 Yes [id number] 25mg Take 1 Univers tartrate 25 2-15 tablet by ity of mg tablet 00:00: mouth in [place] 00 the Medical morning Branch and 1 tablet in the evening. metoprolol 3-0 Yes [id number] 25mg Take 1 Univers tartrate 25 2-15 tablet by ity of mg tablet 00:00: mouth [place] 00 the Medical morning Branch and 1 tablet in the evening. metoprolol 3-0 Yes [id number] 25mg Take 1 Univers tartrate 25 2-15 tablet by ity of mg tablet 00:00: mouth [place] 00 the Medical morning Branch and 1 tablet in the evening. metoprolol 2023-0 Yes [id number] 25mg Take 1 [facility] tartrate 25 2-15 tablet by ity of mg tablet 00:00: mouth [place] 00 the Medical morning Branch and 1 tablet in the evening. metoprolol 3-0 Yes [id number] 25mg Take 1 [facility] tartrate 25 2-15 tablet by ity of mg tablet 00:00: mouth [place] 00 the Medical morning Branch and 1 tablet in the evening. metoprolol 2023-0 Yes [id number] 25mg Take 1 [facility] tartrate 25 2-15 tablet by ity of mg tablet 00:00: mouth [place] 00 the Medical morning Branch and 1 tablet in the evening. metoprolol 2023-0 Yes [id number] 25mg Take 1 [facility] tartrate 25 2-15 tablet by ity of mg tablet 00:00: mouth in [place] 00 the Medical morning Branch and 1 tablet in the evening. metoprolol 2023-0 Yes [id number] 25mg Take 1 [facility] tartrate 25 2-15 tablet by ity of mg tablet 00:00: mouth in [place] 00 the Medical morning Branch and 1 tablet in the evening. metoprolol 2023-0 Yes [id number] 25mg Take 1 [facility] tartrate 25 2-15 tablet by ity of mg tablet 00:00: mouth in [place] 00 the Medical morning Branch and 1 tablet in the evening. metoprolol 3-0 Yes [id number] 25mg Take 1 [facility] tartrate 25 2-15 tablet by ity of mg tablet 00:00: mouth in [place] 00 the Medical morning Branch and 1 tablet in the evening. metoprolol 3-0 Yes [id number] 25mg Take 1 [facility] tartrate 25 2-15 tablet by ity of mg tablet 00:00: mouth in [place] 00 the Medical morning Branch and 1 tablet in the evening. metoprolol 3-0 Yes [id number] 25mg Take 1 [facility] tartrate 25 2-15 tablet by ity of mg tablet 00:00: mouth [place] 00 the Medical morning Branch and 1 tablet in the evening. metoprolol 2023-0 Yes [id number] 25mg Take 1 [facility] tartrate 25 2-15 tablet by ity of mg tablet 00:00: mouth [place] 00 the Medical morning Branch and 1 tablet in the evening. metoprolol 2023-0 Yes [id number] 25mg Take 1 [facility] tartrate 25 2-15 tablet by ity of mg tablet 00:00: mouth in [place] 00 the Medical morning Branch and 1 tablet in the evening. metoprolol 2023-0 Yes [id number] 25mg Take 1 [facility] tartrate 25 2-15 tablet by ity of mg tablet 00:00: mouth in [place] 00 the Medical morning Branch and 1 tablet in the evening. metoprolol 2023-0 Yes [id number] 25mg Take 1 [facility] tartrate 25 2-15 tablet by ity of mg tablet 00:00: mouth in [place] 00 the Medical morning Branch and 1 tablet in the evening. metoprolol 3-0 Yes [id number] 25mg Take 1 [facility] tartrate 25 2-15 tablet by ity of mg tablet 00:00: mouth in [place] 00 the Medical morning Branch and 1 tablet in the evening. metoprolol 3-0 Yes [id number] 25mg Take 1 [facility] tartrate 25 2-15 tablet by ity of mg tablet 00:00: mouth in [place] 00 the Medical morning Branch and 1 tablet in the evening. metoprolol 3-0 Yes [id number] 25mg Take 1 [facility] tartrate 25 2-15 tablet by ity of mg tablet 00:00: mouth in [place] 00 the Medical morning Branch and 1 tablet in the evening. metoprolol 3-0 Yes [id number] 25mg Take 1 [facility] tartrate 25 2-15 tablet by ity of mg tablet 00:00: mouth in [place] 00 the Medical morning Branch and 1 tablet in the evening. metoprolol 3-0 Yes [id number] 25mg Take 1 [facility] tartrate 25 2-15 tablet by ity of mg tablet 00:00: mouth in [place] 00 the Medical morning Branch and 1 tablet in the evening. metoprolol 3-0 Yes [id number] 25mg Take 1 [facility] tartrate 25 2-15 tablet by ity of mg tablet 00:00: mouth in [place] 00 the Medical morning Branch and 1 tablet in the evening. metoprolol 3-0 Yes [id number] 25mg Take 1 [facility] tartrate 25 2-15 tablet by ity of mg tablet 00:00: mouth in [place] 00 the Medical morning Branch and 1 tablet in the evening. metoprolol 2023-0 Yes [id number] 25mg Take 1 [facility] tartrate 25 2-15 tablet by ity of mg tablet 00:00: mouth in [place] 00 the Medical morning Branch and 1 tablet in the evening. metoprolol 2023-0 Yes [id number] 25mg Take 1 [facility] tartrate 25 2-15 tablet by ity of mg tablet 00:00: mouth in [place] 00 the Medical morning Branch and 1 tablet in the evening. metoprolol 3-0 Yes [id number] 25mg Take 1 [facility] tartrate 25 2-15 tablet by ity of mg tablet 00:00: mouth in [place] 00 the Medical morning Branch and 1 tablet in the evening. metoprolol 3-0 Yes [id number] 25mg Take 1 [facility] tartrate 25 2-15 tablet by ity of mg tablet 00:00: mouth [place] 00 the Medical morning Branch and 1 tablet in the evening. metoprolol 2022-0 Yes [id number] 25mg Take 1 [facility] tartrate 25 2-15 tablet by ity of mg tablet 00:00: mouth [place] 00 the Medical morning Branch and 1 tablet in the evening. metoprolol 3-0 Yes [id number] 25mg Take 1 [facility] tartrate 25 2-15 tablet by [facility] tablet 00:[facility]: [place] the Medical morning Branch and 1 tablet in the evening. metoprolol 2022-0 Yes [id number] 25mg Take 1 [facility] tartrate 25 2-15 tablet by [facility] mg tablet 00:[facility]: [place] the Medical morning Branch and 1 tablet in the evening. metoprolol 2022-0 Yes [id number] 25mg Take 1 [facility] tartrate 25 2-15 tablet by [facility] mg tablet 00:00: [place] 00 the Medical morning Branch and 1 tablet in the evening. metoprolol 3-0 Yes [id number] 25mg Take 1 [facility] tartrate 25 2-15 tablet by [facility] mg tablet 00:00: [place] 00 the Medical morning Branch and 1 tablet in the evening. metoprolol 3-0 Yes [id number] 25mg Take 1 [facility] tartrate 25 2-15 tablet by [facility] mg tablet 00:00: [place] 00 the Medical morning Branch and 1 tablet in the evening. metoprolol 3-0 Yes [id number] 25mg Take 1 [facility] tartrate 25 2-15 tablet by [facility] mg tablet 00:00: [place] 00 the Medical morning Branch and 1 tablet in the evening. metoprolol 3-0 Yes [id number] 25mg Take 1 [facility] tartrate 25 2-15 tablet by [facility] mg tablet 00:00: [place] 00 [facility] Medical morning Branch and 1 tablet in the evening. metoprolol 2023-0 Yes [id number] 25mg Take 1 [facility] tartrate 25 2-15 tablet by [facility] mg tablet 00:[place]: [place] [address] [facility] morning Branch and 1 tablet in the evening. metoprolol 2023-0 Yes 25mg Take 1 [facility] 00:[facility]: mg total) M edical 25 MG 00 by mouth. [facility] tablet metoprolol 2023-0 Yes 25mg Take 1 [facility] ([facility] ([facility] 00:00: mg total) M edical 25 MG 00 by mouth. Center tablet metoprolol 2023-0 Yes 25mg Take 1 [facility] ([facility] ([facility] 00:00: mg total) M edical 25 MG 00 by mouth. Center tablet metoprolol 2023-0 Yes 25mg Take 1 [facility] ([facility] ([facility] 00:00: mg total) M edical 25 MG 00 by mouth. Center tablet metoprolol 2023-0 Yes 25mg Take 1 [facility] ([facility] 00:00: mg total) M edical 25 MG 00 by mouth. Center tablet metoprolol 2023-0 Yes 25mg Take 1 [facility] ([facility] ([facility] 00:00: mg total) M edical 25 MG 00 by mouth. Center tablet ATORVASTATI 2023-0 Yes [id number] 10mg TAKE 1 [facility] N 10 mg 2-08 TABLET BY [facility] of tablet 00:00: MOUTH AT [address] ATORVASTATI 2023-0 Yes [id number] 10mg TAKE 1 [facility] N 10 mg 2-08 TABLET BY [facility] of tablet 00:00: MOUTH AT [address] ATORVASTATI 2023-0 Yes [id number] 10mg TAKE 1 [facility] N 10 mg 2-08 TABLET BY [facility] of tablet 00:00: MOUTH AT [address] ATORVASTATI 2023-0 Yes [id number] 10mg TAKE 1 [facility] N 10 mg 2-08 TABLET BY [facility] of tablet 00:00: MOUTH AT [place] [facility] Yes [id number] 10mg TAKE 1 [facility] N 10 mg 2-08 TABLET BY ity of tablet 00:00: MOUTH AT [place] [facility] Yes [id number] 10mg TAKE 1 [facility] N 10 mg 2-08 TABLET BY ity of tablet 00:00: MOUTH AT [place] [facility] Yes [id number] 10mg TAKE 1 [facility] N 10 mg 2-08 TABLET BY ity of tablet 00:00: MOUTH AT [place] [facility] Yes [id number] 10mg TAKE 1 [facility] N 10 mg 2-08 TABLET BY ity of tablet 00:00: MOUTH AT [place] [facility] Yes [id number] 10mg TAKE 1 [facility] N 10 mg 2-08 TABLET BY ity of tablet 00:00: MOUTH AT [place] [facility] Yes [id number] 10mg TAKE 1 [facility] N 10 mg 2-08 TABLET BY ity of tablet 00:00: MOUTH AT [place] [facility] Yes [id number] 10mg TAKE 1 [facility] N 10 mg 2-08 TABLET BY ity of tablet 00:00: MOUTH AT [place] [facility] Yes [id number] 10mg TAKE 1 [facility] N 10 mg 2-08 TABLET BY ity of tablet 00:00: MOUTH AT [place] [facility] Yes [id number] 10mg TAKE 1 [facility] N 10 mg 2-08 TABLET BY [facility] of tablet 00:00: MOUTH AT [place] [facility] Yes [id number] 10mg TAKE 1 [facility] N 10 mg 2-08 TABLET BY it[facility] of tablet 00:00: MOUTH AT [place] [facility] 0 Yes [id number] 10mg TAKE 1 [facility] N 10 mg 2-08 TABLET BY ity of tablet 00:00: MOUTH AT [address] Yes [id number] 10mg TAKE 1 [facility] N 10 mg 2-08 TABLET BY ity of tablet 00:00: MOUTH AT [place] [facility] Yes [id number] 10mg TAKE 1 [facility] N 10 mg 2-08 TABLET BY ity of tablet 00:00: MOUTH AT [place] [facility] Yes [id number] 10mg TAKE 1 [facility] N 10 mg 2-08 TABLET BY ity of tablet 00:00: MOUTH AT [place] [facility] Yes [id number] 10mg TAKE 1 [facility] N 10 mg 2-08 TABLET BY ity of tablet 00:00: MOUTH AT [place] [facility] Yes [id number] 10mg TAKE 1 [facility] N 10 mg 2-08 TABLET BY ity of tablet 00:00: MOUTH AT [place] [facility] Yes [id number] 10mg TAKE 1 [facility] N 10 mg 2-08 TABLET BY ity of tablet 00:00: MOUTH AT [place] [facility] Yes [id number] 10mg TAKE 1 [facility] N 10 mg 2-08 TABLET BY ity of tablet 00:00: MOUTH AT [place] [facility] Yes [id number] 10mg TAKE 1 [facility] N 10 mg 2-08 TABLET BY ity of tablet 00:00: MOUTH AT [place] [facility] Yes [id number] 10mg TAKE 1 [facility] N 10 mg 2-08 TABLET BY ity of tablet 00:00: MOUTH AT [place] [facility] Yes [id number] 10mg TAKE 1 [facility] N 10 mg 2-08 TABLET BY ity of tablet 00:00: MOUTH AT [place] [facility] Yes [id number] 10mg TAKE 1 [facility] N 10 mg 2-08 TABLET BY ity of tablet 00:00: MOUTH AT [address] Yes [id number] 10mg TAKE 1 [facility] N 10 mg 2-08 TABLET BY ity of tablet 00:00: MOUTH AT [address] Yes [id number] 10mg TAKE 1 [facility] N 10 mg 2-08 TABLET BY ity of tablet 00:00: MOUTH AT [place] [facility] 0 Yes [id number] 10mg TAKE 1 [facility] N 10 mg 2-08 TABLET BY ity of tablet 00:00: MOUTH AT [place] [facility] 0 Yes [id number] 10mg TAKE 1 [facility] N 10 mg 2-08 TABLET BY ity of tablet 00:00: MOUTH AT [place] [facility] 0 Yes [id number] 10mg TAKE 1 [facility] N 10 mg 2-08 TABLET BY ity of tablet 00:00: MOUTH AT [place] [facility] Yes [id number] 10mg TAKE 1 [facility] N 10 mg 2-08 TABLET BY ity of tablet 00:00: MOUTH AT [place] [facility] 0 Yes [id number] 10mg TAKE 1 [facility] N 10 mg 2-08 TABLET BY ity of tablet 00:00: MOUTH AT [place] [facility] Yes [id number] 10mg TAKE 1 [facility] N 10 mg 2-08 TABLET BY ity of tablet 00:00: MOUTH AT [place] [facility] 2022- No [id number] 10mg TAKE 1 [facility] N 10 mg 2-08 04-27 TABLET BY ity of tablet 00:00: 00:00 MOUTH AT [place] 00 : [facility] LORATADINE 2022-0 Yes [id number] TAKE 1 [facility] n[facility] 10 mg 2-01 TABLET BY ity of tablet 00:00: MOUTH [place] DAILY Medical Branch COLCHICINE 2022-0 Yes [id number] TAKE 1 [facility] 0.6 mg 2-01 TABLET BY ity of tablet 00:00: MOUTH [place] DAILY Medical Branch DOXAZOSIN 2 2022- Yes TAKE 1 Univ ers mg tablet 2-01 TABLET BY ity o f 00:00: MOUTH [place] [id number] EVERY Medical NIGHT AT [facility] LORATADINE 2022-0 Yes [id number] TAKE 1 U nivers 10 mg 2-01 TABLET BY ity of tablet 00:00: MOUTH [place] DAILY Medical Branch COLCHICINE 2023-0 Yes [id number] TAKE 1 [facility] 0.6 mg 2-01 TABLET BY ity of tablet 00:00: MOUTH [place] 00 DAILY Medical Branch DOXAZOSIN 2 2022-0 Yes TAKE 1 [facility] ers mg tablet 2-01 TABLET BY ity o f 00:00: MOUTH [place] 00 EVERY Medical NIGHT AT Branch BEDTIME LORATADINE 2022-0 Yes [id number] TAKE 1 [facility] nivers 10 mg 2-01 TABLET BY ity of tablet 00:00: MOUTH DAILY Medical Branch COLCHICINE 2022-0 Yes [id number] TAKE 1 [facility] 0.6 mg 2-01 TABLET BY ity of tablet 00:00: MOUTH [place] DAILY Medical Branch DOXAZOSIN 2 2022-0 Yes TAKE 1 [facility] ers mg tablet 2-01 TABLET BY ity o f 00:00: MOUTH EVERY Medical NIGHT AT Branch BEDTIME LORATADINE 2022-0 Yes [id number] TAKE 1 [facility] nivers 10 mg 2-01 TABLET BY ity of tablet 00:00: MOUTH DAILY Medical Branch COLCHICINE 2022-0 Yes [id number] TAKE 1 [facility] 0.6 mg 2-01 TABLET BY ity of tablet 00:00: MOUTH DAILY Medical Branch DOXAZOSIN 2 2022-0 Yes TAKE 1 [facility] ers mg tablet 2-01 TABLET BY ity o f 00:00: MOUTH EVERY Medical NIGHT AT Branch BEDTIME LORATADINE 2022-0 Yes [id number] TAKE 1 [facility] nivers 10 mg 2-01 TABLET BY ity of tablet 00:00: MOUTH DAILY Medical Branch COLCHICINE 3-0 Yes [id number] TAKE 1 [facility] 0.6 mg 2-01 TABLET BY ity of tablet 00:00: MOUTH DAILY Medical Branch DOXAZOSIN 2 2022-0 Yes TAKE 1 [facility] ers mg tablet 2-01 TABLET BY ity o f 00:00: MOUTH EVERY Medical NIGHT AT Branch BEDTIME LORATADINE 2022-0 Yes [id number] TAKE 1 [facility] nivers 10 mg 2-01 TABLET BY ity of tablet 00:00: MOUTH [place] DAILY Medical Branch COLCHICINE 3-0 Yes [id number] TAKE 1 [facility] 0.6 mg 2-01 TABLET BY ity of tablet 00:00: MOUTH DAILY Medical Branch DOXAZOSIN 2 2022-0 Yes TAKE 1 [facility] ers mg tablet 2-01 TABLET BY ity o f 00:00: MOUTH [place] EVERY Medical NIGHT AT Branch BEDTIME COLCHICINE 2022-0 Yes [id number] TAKE 1 [facility] 0.6 mg 2-01 TABLET BY ity of tablet 00:00: MOUTH [place] DAILY Medical Branch COLCHICINE 2022-0 Yes [id number] TAKE 1 [facility] 0.6 mg 2-01 TABLET BY ity of tablet 00:00: MOUTH DAILY Medical Branch COLCHICINE 2022-0 Yes [id number] TAKE 1 [facility] 0.6 mg 2-01 TABLET BY ity of tablet 00:00: MOUTH DAILY Medical Branch COLCHICINE 2022-0 Yes [id number] TAKE 1 [facility] 0.6 mg 2-01 TABLET BY ity of tablet 00:00: MOUTH DAILY Medical Branch LORATADINE 2022-0 Yes [id number] TAKE 1 [facility] 10 mg 2-01 TABLET BY ity of tablet 00:00: MOUTH DAILY Medical Branch COLCHICINE 2022-0 Yes [id number] TAKE 1 [facility] 0.6 mg 2-01 TABLET BY ity of tablet 00:00: MOUTH DAILY Medical Branch DOXAZOSIN 2 2022-0 Yes TAKE 1 [facility] ers mg tablet 2-01 TABLET BY ity o f 00:00: MOUTH EVERY Medical NIGHT AT Branch BEDTIME LORATADINE 2022-0 Yes [id number] TAKE 1 [facility] nivers 10 mg 2-01 TABLET BY ity of tablet 00:00: MOUTH DAILY Medical Branch COLCHICINE 2022-0 Yes [id number] TAKE 1 [facility] 0.6 mg 2-01 TABLET BY ity of tablet 00:00: MOUTH DAILY Medical Branch DOXAZOSIN 2 2022-0 Yes TAKE 1 [facility] ers mg tablet 2-01 TABLET BY ity o f 00:00: MOUTH EVERY Medical NIGHT AT Branch BEDTIME LORATADINE 2022-0 Yes [id number] TAKE 1 [facility] nivers 10 mg 2-01 TABLET BY ity of tablet 00:00: MOUTH DAILY Medical Branch COLCHICINE 2022-0 Yes [id number] TAKE 1 [facility] 0.6 mg 2-01 TABLET BY ity of tablet 00:00: MOUTH DAILY Medical Branch DOXAZOSIN 2 2022-0 Yes TAKE 1 [facility] ers mg tablet 2-01 TABLET BY ity o f 00:00: MOUTH EVERY Medical NIGHT AT Branch BEDTIME COLCHICINE 2022-0 2023- No [id number] TAKE 1 [facility] 0.6 mg 05-30 TABLET BY ity of tablet 00:00: 00:00 MOUTH [place] 00 :00 DAILY Medical Branch LORATADINE 2022-2022- No [id number] TAKE 1 [facility] 10 mg 05-30 TABLET BY ity of tablet 00:00: 00:00 MOUTH [place] 00 :00 DAILY Medical Branch DOXAZOSIN 2 2022- No TAKE 1 [facility] vers mg tablet 05-30 TABLET BY ity of 00:00: 00:00 MOUTH [place] 00 :00 EVERY Medical NIGHT AT Branch BEDTIME LORATADINE 2022-0 2022- No [id number] TAKE 1 [facility] 10 mg 05-30 TABLET BY ity of tablet 00:00: 00:00 MOUTH [place] 00 :00 DAILY Medical Branch DOXAZOSIN 2 2022- No TAKE 1 [facility] vers mg tablet 05-30 TABLET BY ity of 00:00: 00:00 [facility] [place] 00 :00 EVERY Medical NIGHT AT Branch BEDTIME tiZANidine 2022-0 Yes [id number] 4mg Take 1 [facility] 4 mg tablet 1-17 tablet by ity of 00:00: mouth [place] 00 every 6 Medical (six) Branch hours as needed for Pain (scale 4-6). tiZANidine 2022-0 Yes [id number] 4mg Take 1 [facility] 4 mg tablet 1-17 tablet by ity of 00:00: mouth [place] 00 every 6 Medical (six) Branch hours as needed for Pain (scale 4-6). tiZANidine 2022-0 Yes [id number] 4mg Take 1 [facility] 4 mg tablet 1-17 tablet by ity of 00:00: mouth [place] 00 every 6 Medical (six) Branch hours as needed for Pain (scale 4-6). tiZANidine 202-0 Yes [id number] 4mg Take 1 [facility] 4 mg tablet 1-17 tablet by ity of 00:00: mouth [place] 00 every 6 Medical (six) Branch hours as needed for Pain (scale 4-6). tiZANidine 2022-0 Yes [id number] 4mg Take 1 [facility] 4 mg tablet 1-17 tablet by ity of 00:00: mouth [place] 00 every 6 Medical (six) Branch hours as needed for Pain (scale 4-6). tiZANidine 2023-0 Yes [id number] 4mg Take 1 [facility] 4 mg tablet 1-17 tablet by ity of 00:00: mouth [place] 00 every 6 Medical (six) Branch hours as needed for Pain (scale 4-6). tiZANidine 2023-0 Yes [id number] 4mg Take 1 [facility] 4 mg tablet 1-17 tablet by ity of 00:00: mouth [place] 00 every 6 Medical (six) Branch hours as needed for Pain (scale 4-6). tiZANidine 2023-0 Yes [id number] 4mg Take 1 [facility] 4 mg tablet 1-17 tablet by ity of 00:00: mouth [place] 00 every 6 Medical (six) Branch hours as needed for Pain (scale 4-6). tiZANidine 2023-0 Yes [id number] 4mg Take 1 [facility] 4 mg tablet 1-17 tablet by ity of 00:00: mouth [place] 00 every 6 Medical (six) Branch hours as needed for Pain (scale 4-6). tiZANidine 2023-0 Yes [id number] 4mg Take 1 [facility] 4 mg tablet 1-17 tablet by ity of 00:00: mouth [place] 00 every 6 Medical (six) Branch hours as needed for Pain (scale 4-6). tiZANidine 2023-0 Yes [id number] 4mg Take 1 [facility] 4 mg tablet 1-17 tablet by ity of 00:00: mouth [place] 00 every 6 Medical (six) Branch hours as needed for Pain (scale 4-6). tiZANidine 2023-0 Yes [id number] 4mg Take 1 [facility] 4 mg tablet 1-17 tablet by ity of 00:00: mouth [place] 00 every 6 Medical (six) Branch hours as needed for Pain (scale 4-6). tiZANidine 2023-0 Yes [id number] 4mg Take 1 [facility] 4 mg tablet 1-17 tablet by ity of 00:00: mouth [place] 00 every 6 Medical (six) Branch hours as needed for Pain (scale 4-6). tiZANidine 2023-0 Yes [id number] 4mg Take 1 [facility] 4 mg tablet 1-17 tablet by ity of 00:00: mouth [place] 00 every 6 Medical (six) Branch hours as needed for Pain (scale 4-6). tiZANidine 2023-0 Yes [id number] 4mg Take 1 [facility] 4 mg tablet 1-17 tablet by ity of 00:00: mouth [place] 00 every 6 Medical (six) Branch hours as needed for Pain (scale 4-6). tiZANidine 2023-0 Yes [id number] 4mg Take 1 [facility] 4 mg tablet 1-17 tablet by ity of 00:00: mouth [place] 00 every 6 Medical (six) Branch hours as needed for Pain (scale 4-6). tiZANidine 2023-0 Yes [id number] 4mg Take 1 [facility] 4 mg tablet 1-17 tablet by ity of 00:00: mouth [place] 00 every 6 Medical (six) Branch hours as needed for Pain (scale 4-6). tiZANidine 2023-0 Yes [id number] 4mg Take 1 [facility] 4 mg tablet 1-17 tablet by ity of 00:00: mouth [place] 00 every 6 Medical (six) Branch hours as needed for Pain (scale 4-6). tiZANidine 2023-0 Yes [id number] 4mg Take 1 [facility] 4 mg tablet 1-17 tablet by ity of 00:00: mouth [place] 00 every 6 Medical (six) Branch hours as needed for Pain (scale 4-6). tiZANidine 2023-0 Yes [id number] 4mg Take 1 [facility] 4 mg tablet 1-17 tablet by ity of 00:00: mouth [place] 00 every 6 Medical (six) Branch hours as needed for Pain (scale 4-6). tiZANidine 2023-0 Yes [id number] 4mg Take 1 [facility] 4 mg tablet 1-17 tablet by ity of 00:00: mouth [place] 00 every 6 Medical (six) Branch hours as needed for Pain (scale 4-6). tiZANidine 2023-0 Yes [id number] 4mg Take 1 [facility] 4 mg tablet 1-17 tablet by ity of 00:00: mouth [place] 00 every 6 Medical (six) Branch hours as needed for Pain (scale 4-6). tiZANidine 2023-0 Yes [id number] 4mg Take 1 [facility] 4 mg tablet 1-17 tablet by ity of 00:00: mouth [place] 00 every 6 Medical (six) Branch hours as needed for Pain (scale 4-6). tiZANidine 2023-0 Yes [id number] 4mg Take 1 [facility] 4 mg tablet 1-17 tablet by ity of 00:00: mouth [place] 00 every 6 Medical (six) Branch hours as needed for Pain (scale 4-6). tiZANidine 2023-0 Yes [id number] 4mg Take 1 [facility] 4 mg tablet 1-17 tablet by ity of 00:00: mouth [place] 00 every 6 Medical (six) Branch hours as needed for Pain (scale 4-6). tiZANidine 2023-0 Yes [id number] 4mg Take 1 [facility] 4 mg tablet 1-17 tablet by ity of 00:00: mouth [place] 00 every 6 Medical (six) Branch hours as needed for Pain (scale 4-6). tiZANidine 2023-0 Yes [id number] 4mg Take 1 [facility] 4 mg tablet 1-17 tablet by ity of 00:00: mouth [place] 00 every 6 Medical (six) Branch hours as needed for Pain (scale 4-6). tiZANidine 2023-0 Yes [id number] 4mg Take 1 [facility] 4 mg tablet 1-17 tablet by ity of 00:00: mouth [place] 00 every 6 Medical (six) Branch hours as needed for Pain (scale 4-6). tiZANidine 2023-0 Yes [id number] 4mg Take 1 [facility] 4 mg tablet 1-17 tablet by ity of 00:00: mouth [place] 00 every 6 Medical (six) Branch hours as needed for Pain (scale 4-6). tiZANidine 2023-0 Yes [id number] 4mg Take 1 [facility] 4 mg tablet 1-17 tablet by ity of 00:00: mouth [place] 00 every 6 Medical (six) Branch hours as needed for Pain (scale 4-6). tiZANidine 2023-0 Yes [id number] 4mg Take 1 [facility] 4 mg tablet 1-17 tablet by ity of 00:00: mouth [place] 00 every 6 Medical (six) Branch hours as needed for Pain (scale 4-6). tiZANidine 2023-0 Yes [id number] 4mg Take 1 [facility] 4 mg tablet 1-17 tablet by ity of 00:00: mouth [place] 00 every 6 Medical (six) Branch hours as needed for Pain (scale 4-6). tiZANidine 2023-0 Yes [id number] 4mg Take 1 [facility] 4 mg tablet 1-17 tablet by ity of 00:00: mouth [place] 00 every 6 Medical (six) Branch hours as needed for Pain (scale 4-6). tiZANidine 2023-0 Yes [id number] 4mg Take 1 [facility] 4 mg tablet 1-17 tablet by ity of 00:00: mouth [place] 00 every 6 Medical (six) Branch hours as needed for Pain (scale 4-6). tiZANidine 2023-0 Yes [id number] 4mg Take 1 [facility] 4 mg tablet 1-17 tablet by ity of 00:00: mouth [place] 00 every 6 Medical (six) Branch hours as needed for Pain (scale 4-6). tiZANidine 2023-0 Yes [id number] 4mg Take 1 [facility] 4 mg tablet 1-17 tablet by ity of 00:00: mouth [place] 00 every 6 Medical (six) Branch hours as needed for Pain (scale 4-6). tiZANidine 2023-0 Yes [id number] 4mg Take 1 [facility] 4 mg tablet 1-17 tablet by ity of 00:00: mouth [place] 00 every 6 Medical (six) Branch hours as needed for Pain (scale 4-6). tiZANidine 2023-0 Yes [id number] 4mg Take 1 [facility] 4 mg tablet 1-17 tablet by ity of 00:00: mouth [place] 00 every 6 Medical (six) Branch hours as needed for Pain (scale 4-6). tiZANidine 2023-0 Yes [id number] 4mg Take 1 [facility] 4 mg tablet 1-17 tablet by ity of 00:00: mouth [place] 00 every 6 Medical (six) Branch hours as needed for Pain (scale 4-6). tiZANidine 2023-0 Yes [id number] 4mg Take 1 [facility] 4 mg tablet 1-17 tablet by ity of 00:00: mouth [place] 00 every 6 Medical (six) Branch hours as needed for Pain (scale 4-6). tiZANidine 2023-0 Yes [id number] 4mg Take 1 [facility] 4 mg tablet 1-17 tablet by ity of 00:00: mouth [place] 00 every 6 Medical (six) Branch hours as needed for Pain (scale 4-6). tiZANidine 2023-0 Yes [id number] 4mg Take 1 [facility] 4 mg tablet 1-17 tablet by ity of 00:00: mouth [place] 00 every 6 Medical (six) Branch hours as needed for Pain (scale 4-6). tiZANidine 2023-0 Yes [id number] 4mg Take 1 [facility] 4 mg tablet 1-17 tablet by ity of 00:00: mouth [place] 00 every 6 Medical (six) Branch hours as needed for Pain (scale 4-6). tiZANidine 2023-0 Yes [id number] 4mg Take 1 [facility] 4 mg tablet 1-17 tablet by ity of 00:00: mouth [place] 00 every 6 Medical (six) Branch hours as needed for Pain (scale 4-6). tiZANidine 2023-0 Yes [id number] 4mg Take 1 [facility] 4 mg tablet 1-17 tablet by ity of 00:00: mouth [place] 00 every 6 Medical (six) Branch hours as needed for Pain (scale 4-6). tiZANidine 2023-0 Yes [id number] 4mg Take 1 [facility] 4 mg tablet 1-17 tablet by ity of 00:00: mouth [place] 00 every 6 Medical (six) Branch hours as needed for Pain (scale 4-6). tiZANidine 2023-0 Yes [id number] 4mg Take 1 [facility] 4 mg tablet 1-17 tablet by ity of 00:00: mouth [place] 00 every 6 Medical (six) Branch hours as needed for Pain (scale 4-6). tiZANidine 2023-0 Yes [id number] 4mg Take 1 [facility] 4 mg tablet 1-17 tablet by ity of 00:00: mouth [place] 00 every 6 Medical (six) Branch hours as needed for Pain (scale 4-6). tiZANidine 2023-0 Yes [id number] 4mg Take 1 [facility] 4 mg tablet 1-17 tablet by ity of 00:00: mouth [place] 00 every 6 Medical (six) Branch hours as needed for Pain (scale 4-6). tiZANidine 2023-0 Yes [id number] 4mg Take 1 [facility] 4 mg tablet 1-17 tablet by ity of 00:00: mouth [place] 00 every 6 Medical (six) Branch hours as needed for Pain (scale 4-6). tiZANidine 2023-0 Yes [id number] 4mg Take 1 [facility] 4 mg tablet 1-17 tablet by ity of 00:00: mouth [place] 00 every 6 Medical (six) Branch hours as needed for Pain (scale 4-6). tiZANidine 2023-0 Yes [id number] 4mg Take 1 [facility] 4 mg tablet 1-17 tablet by ity of 00:00: mouth [place] 00 every 6 Medical (six) Branch hours as needed for Pain (scale 4-6). tiZANidine 2023-0 Yes [id number] 4mg Take 1 [facility] 4 mg tablet 1-17 tablet by ity of 00:00: mouth [place] 00 every 6 Medical (six) Branch hours as needed for Pain (scale 4-6). tiZANidine 2023-0 Yes [id number] 4mg Take 1 [facility] 4 mg tablet 1-17 tablet by ity of 00:00: mouth [place] 00 every 6 Medical (six) Branch hours as needed for Pain (scale 4-6). tiZANidine 2023-0 Yes [id number] 4mg Take 1 [facility] 4 mg tablet 1-17 tablet by ity of 00:00: mouth [place] 00 every 6 Medical (six) Branch hours as needed for Pain (scale 4-6). tiZANidine 2023-0 Yes [id number] 4mg Take 1 [facility] 4 mg tablet 1-17 tablet by ity of 00:00: mouth [place] 00 every 6 Medical (six) Branch hours as needed for Pain (scale 4-6). tiZANidine 2023-0 Yes [id number] 4mg Take 1 [facility] 4 mg tablet 1-17 tablet by ity of 00:00: mouth [place] 00 every 6 Medical (six) Branch hours as needed for Pain (scale 4-6). tiZANidine 2023-0 Yes [id number] 4mg Take 1 [facility] 4 mg tablet 1-17 tablet by ity of 00:00: mouth [place] 00 every 6 Medical (six) Branch hours as needed for Pain (scale 4-6). tiZANidine 2023-0 Yes [id number] 4mg Take 1 [facility] 4 mg tablet 1-17 tablet by ity of 00:00: mouth [place] 00 every 6 Medical (six) Branch hours as needed for Pain (scale 4-6). tiZANidine 2023-0 2023- No [id number] 4mg Take 1 [facility] 4 mg tablet 1-17 05-24 tablet by it y of 00:00: 00:00 mouth [place] 00 :00 every 6 Medical (six) Branch hours as needed for Pain (scale 4-6). levoFLOXaci 2023-0 Yes [id number] 750mg Take 1 [facility] n 750 mg 1-10 9101 tablet by ity of tablet 00:00: mouth [place] 00 every 24 Medical (twenty-fo Branch ur) hours. levoFLOXaci 2023-0 Yes [id number] 750mg Take 1 [facility] n 750 mg 1-10 9101 tablet by ity of tablet 00:00: mouth [place] 00 every 24 Medical (twenty-fo Branch ur) hours. levoFLOXaci 2023-0 Yes [id number] 750mg Take 1 [facility] n 750 mg 1-10 9101 tablet by ity of tablet 00:00: mouth [place] 00 every 24 Medical (twenty-fo Branch ur) hours. levoFLOXaci 2023-0 Yes [id number] 750mg Take 1 [facility] n 750 mg 1-10 9101 tablet by ity of tablet 00:00: mouth [place] 00 every 24 Medical (twenty-fo Branch ur) hours. levoFLOXaci 2023-0 Yes [id number] 750mg Take 1 [facility] n 750 mg 1-10 9101 tablet by ity of tablet 00:00: mouth [place] 00 every 24 Medical (twenty-fo Branch ur) hours. levoFLOXaci 2023-0 Yes [id number] 750mg Take 1 [facility] n 750 mg 1-10 9101 tablet by ity of tablet 00:00: mouth [place] 00 every 24 Medical (twenty-fo Branch ur) hours. levoFLOXaci 2023-0 Yes [id number] 750mg Take 1 [facility] n 750 mg 1-10 9101 tablet by ity of tablet 00:00: mouth [place] 00 every 24 Medical (twenty-fo Branch ur) hours. levoFLOXaci 2023-0 Yes [id number] 750mg Take 1 [facility] n 750 mg 1-10 9101 tablet by ity of tablet 00:00: mouth [place] 00 every 24 Medical (twenty-fo Branch ur) hours. levoFLOXaci 2023-0 Yes [id number] 750mg Take 1 [facility] n 750 mg 1-10 9101 tablet by ity of tablet 00:00: mouth [place] 00 every 24 Medical (twenty-fo Branch ur) hours. levoFLOXaci 2023-0 Yes [id number] 750mg Take 1 [facility] n 750 mg 1-10 9101 tablet by ity of tablet 00:00: mouth [place] 00 every 24 Medical (twenty- Branch ur) hours. levoFLOXaci 2023-0 Yes [id number] 750mg Take 1 [facility] n 750 mg 1-10 9101 tablet by ity of tablet 00:00: mouth [place] 00 every 24 Medical (twenty- Branch ur) hours. levoFLOXaci 2023-0 Yes [id number] 750mg Take 1 [facility] n 750 mg 1-10 9101 tablet by ity of tablet 00:00: mouth [place] 00 every 24 Medical (twenty- Branch ur) hours. levoFLOXaci 2023-0 Yes [id number] 750mg Take 1 [facility] 750 [facility] 1-10 9101 tablet by [facility] tablet 00:00: mouth [place] 00 every 24 Medical (twenty- Branch ur) hours. levoFLOXaci 2023-0 Yes [id number] 750mg Take 1 [facility] 750 mg 1-10 9101 tablet by [facility] of tablet 00:00: mouth [place] 00 every 24 Medical ([facility] ur) hours. levoFLOXaci 2023-0 Yes [id number] 750mg Take 1 [facility] 750 mg 1-10 9101 tablet by [facility] of tablet 00:00: mouth [place] 00 every 24 Medical (twenty- Branch ur) hours. levoFLOXaci 2023-0 Yes [id number] 750mg Take 1 [facility] 750 mg 1-10 9101 tablet by [facility] of tablet 00:00: mouth [place] 00 every 24 Medical (twenty- Branch ur) hours. levoFLOXaci 2023-0 Yes [id number] 750mg Take 1 [facility] 750 mg 1-10 9101 tablet by [facility] tablet 00:00: mouth [place] 00 every 24 Medical (twenty- Branch ur) hours. levoFLOXaci 2023-0 Yes [id number] 750mg Take 1 [facility] 750 mg 1-10 9101 tablet by [facility] tablet 00:00: mouth [place] 00 every 24 Medical (twenty- Branch ur) hours. levoFLOXaci 2023-0 Yes [id number] 750mg Take 1 [facility] 750 mg 1-10 9101 tablet by [facility] of tablet 00:00: mouth [place] 00 every 24 Medical ([facility] ur) hours. levoFLOXaci 2023-0 Yes [id number] 750mg Take 1 [facility] 750 mg 1-10 9101 tablet by [facility] of tablet 00:00: mouth [place] 00 every 24 Medical (twenty- Branch ur) hours. levoFLOXaci 2023-0 Yes [id number] 750mg Take 1 [facility] 750 mg 1-10 9101 tablet by [facility] of tablet 00:00: mouth [place] 00 every 24 Medical (twenty- Branch ur) hours. levoFLOXaci 2023-0 Yes [id number] 750mg Take 1 [facility] 750 mg 1-10 9101 tablet by [facility] tablet 00:00: mouth [place] 00 every 24 Medical (twenty- Branch ur) hours. levoFLOXaci 2023-0 Yes [id number] 750mg Take 1 [facility] 750 mg 1-10 9101 tablet by [facility] tablet 00:00: mouth [place] 00 every 24 Medical (twenty- Branch ur) hours. levoFLOXaci 2023-0 Yes [id number] 750mg Take 1 [facility] 750 mg 1-10 9101 tablet by [facility] tablet 00:00: mouth [place] 00 every 24 Medical ([facility] ur) hours. levoFLOXaci 2023-0 Yes [id number] 750mg Take 1 [facility] 750 mg 1-10 9101 tablet by [facility] of tablet 00:00: mouth [place] 00 every 24 Medical (twenty- Branch ur) hours. levoFLOXaci 2023-0 Yes [id number] 750mg Take 1 [facility] 750 mg 1-10 9101 tablet by [facility] tablet 00:00: mouth [place] 00 every 24 Medical (twenty- Branch ur) hours. levoFLOXaci 2023-0 Yes [id number] 750mg Take 1 [facility] 750 mg 1-10 9101 tablet by [facility] of tablet 00:00: mouth [place] 00 every 24 Medical (twenty- Branch ur) hours. levoFLOXaci 2023-0 Yes [id number] 750mg Take 1 [facility] 750 mg 1-10 9101 tablet by [facility] tablet 00:00: mouth [place] 00 every 24 Medical (twenty- Branch ur) hours. levoFLOXaci 2023-0 Yes [id number] 750mg Take 1 [facility] 750 mg 1-10 9101 tablet by [facility] of tablet 00:00: mouth [place] 00 every 24 Medical ([facility] ur) hours. levoFLOXaci 2023-0 Yes [id number] 750mg Take 1 [facility] 750 mg 1-10 9101 tablet by [facility] of tablet 00:00: mouth [place] 00 every 24 Medical (twenty- Branch ur) hours. levoFLOXaci 2023-0 Yes [id number] 750mg Take 1 [facility] 750 mg 1-10 9101 tablet by [facility] of tablet 00:00: mouth [place] 00 every 24 Medical (twenty- Branch ur) hours. levoFLOXaci 2023-0 Yes [id number] 750mg Take 1 [facility] 750 mg 1-10 9101 tablet by [facility] of tablet 00:00: mouth [place] 00 every 24 Medical (twenty- Branch ur) hours. levoFLOXaci 2023-0 Yes [id number] 750mg Take 1 [facility] 750 mg 1-10 9101 tablet by [facility] of tablet 00:00: mouth [place] 00 every 24 Medical (twenty- Branch ur) hours. levoFLOXaci 2023-0 Yes [id number] 750mg Take 1 [facility] 750 mg 1-10 9101 tablet by [facility] of tablet 00:00: mouth [place] 00 every 24 Medical ([facility] ur) hours. levoFLOXaci 2023-0 Yes [id number] 750mg Take 1 [facility] 750 mg 1-10 9101 tablet by [facility] of tablet 00:00: mouth [place] 00 every 24 Medical (twenty- Branch ur) hours. levoFLOXaci 2023-0 Yes [id number] 750mg Take 1 [facility] 750 mg 1-10 9101 tablet by [facility] of tablet 00:00: mouth [place] 00 every 24 Medical (twenty- Branch ur) hours. levoFLOXaci 2023-0 Yes [id number] 750mg Take 1 [facility] 750 mg 1-10 9101 tablet by [facility] of tablet 00:00: mouth [place] 00 every 24 Medical (twenty- Branch ur) hours. levoFLOXaci 2023-0 Yes [id number] 750mg Take 1 [facility] 750 mg 1-10 9101 tablet by [facility] of tablet 00:00: mouth [place] 00 every 24 Medical (twenty- Branch ur) hours. levoFLOXaci 2023-0 Yes [id number] 750mg Take 1 [facility] 750 mg 1-10 9101 tablet by [facility] of tablet 00:00: mouth [place] 00 every 24 Medical ([facility] ur) hours. levoFLOXaci 2023-0 Yes [id number] 750mg Take 1 [facility] 750 mg 1-10 9101 tablet by [facility] of tablet 00:00: mouth [place] 00 every 24 Medical (twenty- Branch ur) hours. levoFLOXaci 2023-0 Yes [id number] 750mg Take 1 [facility] 750 mg 1-10 9101 tablet by [facility] of tablet 00:00: mouth [place] 00 every 24 Medical (twenty- Branch ur) hours. levoFLOXaci 2023-0 Yes [id number] 750mg Take 1 [facility] 750 mg 1-10 9101 tablet by [facility] of tablet 00:00: mouth [place] 00 every 24 Medical (twenty- Branch ur) hours. levoFLOXaci 2023-0 Yes [id number] 750mg Take 1 [facility] 750 mg 1-10 9101 tablet by [facility] of tablet 00:00: mouth [place] 00 every 24 Medical (twenty- Branch ur) hours. levoFLOXaci 2023-0 Yes [id number] 750mg Take 1 [facility] 750 mg 1-10 9101 tablet by [facility] of tablet 00:00: mouth [place] 00 every 24 Medical ([facility] ur) hours. levoFLOXaci 2023-0 Yes [id number] 750mg Take 1 [facility] 750 mg 1-10 9101 tablet by [facility] of tablet 00:00: mouth [place] 00 every 24 Medical (twenty- Branch ur) hours. levoFLOXaci 2023-0 Yes [id number] 750mg Take 1 [facility] 750 mg 1-10 9101 tablet by [facility] of tablet 00:00: mouth [place] 00 every 24 Medical (twenty- Branch ur) hours. levoFLOXaci 2023-0 Yes [id number] 750mg Take 1 [facility] 750 mg 1-10 9101 tablet by [facility] of tablet 00:00: mouth [place] 00 every 24 Medical (twenty- Branch ur) hours. levoFLOXaci 2023-0 Yes [id number] 750mg Take 1 [facility] 750 mg 1-10 9101 tablet by [facility] of tablet 00:00: mouth [place] 00 every 24 Medical (twenty- Branch ur) hours. levoFLOXaci 2023-0 Yes [id number] 750mg Take 1 [facility] 750 mg 1-10 9101 tablet by [facility] of tablet 00:00: mouth [place] 00 every 24 Medical ([facility] ur) hours. levoFLOXaci 2023-0 Yes [id number] 750mg Take 1 [facility] 750 mg 1-10 9101 tablet by [facility] of tablet 00:00: mouth [place] 00 every 24 Medical (twenty- Branch ur) hours. levoFLOXaci 2023-0 Yes [id number] 750mg Take 1 [facility] 750 mg 1-10 9101 tablet by [facility] of tablet 00:00: mouth [place] 00 every 24 Medical (twenty- Branch ur) hours. levoFLOXaci 2023-0 Yes [id number] 750mg Take 1 [facility] 750 mg 1-10 9101 tablet by [facility] of tablet 00:00: mouth [place] 00 every 24 Medical (twenty- Branch ur) hours. levoFLOXaci 2023-0 Yes [id number] 750mg Take 1 [facility] 750 mg 1-10 9101 tablet by [facility] of tablet 00:00: mouth [place] 00 every 24 Medical (twenty- Branch ur) hours. levoFLOXaci 2023-0 Yes [id number] 750mg Take 1 [facility] 750 mg 1-10 9101 tablet by [facility] of tablet 00:00: mouth [place] 00 every 24 Medical ([facility] ur) hours. levoFLOXaci 2023-0 Yes [id number] 750mg Take 1 [facility] 750 mg 1-10 9101 tablet by [facility] of tablet 00:00: mouth [place] 00 every 24 Medical (twenty- Branch ur) hours. levoFLOXaci 2023-0 Yes [id number] 750mg Take 1 [facility] 750 mg 1-10 9101 tablet by [facility] of tablet 00:00: mouth [place] 00 every 24 Medical (twenty- Branch ur) hours. levoFLOXaci 2023-0 Yes [id number] 750mg Take 1 [facility] 750 mg 1-10 9101 tablet by [facility] of tablet 00:00: mouth [place] 00 every 24 Medical (twenty- Branch ur) hours. levoFLOXaci 2023-0 Yes [id number] 750mg Take 1 [facility] 750 mg 1-10 9101 tablet by [facility] of tablet 00:00: mouth [place] 00 every 24 Medical (twenty- Branch ur) hours. levoFLOXaci 2023-0 Yes [id number] 750mg Take 1 [facility] 750 mg 1-10 9101 tablet by [facility] of tablet 00:00: mouth [place] 00 every 24 Medical ([facility] ur) hours. levoFLOXaci 2023-0 Yes [id number] 750mg Take 1 [facility] 750 mg 1-10 9101 tablet by [facility] of tablet 00:00: mouth [place] 00 every 24 Medical (twenty- Branch ur) hours. levoFLOXaci 2023-0 Yes [id number] 750mg Take 1 [facility] 750 mg 1-10 9101 tablet by [facility] of tablet 00:00: mouth [place] 00 every 24 Medical (twenty- Branch ur) hours. levoFLOXaci 2023-0 Yes [id number] 750mg Take 1 [facility] 750 mg 1-10 9101 tablet by [facility] of tablet 00:00: mouth [place] 00 every 24 Medical (twenty- Branch ur) hours. levoFLOXaci 2023-0 Yes [id number] 750mg Take 1 [facility] 750 mg 1-10 9101 tablet by [facility] of tablet 00:00: mouth [place] 00 every 24 Medical (twenty- Branch ur) hours. levoFLOXaci 2023-0 Yes [id number] 750mg Take 1 [facility] 750 mg 1-10 9101 tablet by [facility] of tablet 00:00: mouth [place] 00 every 24 Medical ([facility] ur) hours. levoFLOXaci 2023-0 Yes [id number] 750mg Take 1 [facility] 750 mg 1-10 9101 tablet by [facility] of tablet 00:00: mouth [place] 00 every 24 Medical (twenty- Branch ur) hours. levoFLOXaci 2023-0 Yes [id number] 750mg Take 1 [facility] 750 mg 1-10 9101 tablet by [facility] of tablet 00:00: mouth [place] 00 every 24 Medical (twenty- Branch ur) hours. levoFLOXaci 2023-0 Yes [id number] 750mg Take 1 [facility] 750 mg 1-10 9101 tablet by [facility] of tablet 00:00: mouth [place] 00 every 24 Medical (twenty- Branch ur) hours. levoFLOXaci 2023-0 Yes [id number] 750mg Take 1 [facility] 750 mg 1-10 9101 tablet by [facility] of tablet 00:00: mouth [place] 00 every 24 Medical (twenty- Branch ur) hours. levoFLOXaci 2023-0 Yes [id number] 750mg Take 1 [facility] 750 mg 1-10 9101 tablet by [facility] of tablet 00:00: mouth [place] 00 every 24 Medical ([facility] ur) hours. levoFLOXaci 2023-0 Yes [id number] 750mg Take 1 [facility] 750 mg 1-10 9101 tablet by [facility] of tablet 00:00: mouth [place] 00 every 24 Medical (twenty- Branch ur) hours. levoFLOXaci 2023-0 Yes [id number] 750mg Take 1 [facility] 750 mg 1-10 9101 tablet by [facility] of tablet 00:00: mouth [place] 00 every 24 Medical (twenty- Branch ur) hours. levoFLOXaci 2023-0 Yes [id number] 750mg Take 1 [facility] 750 mg 1-10 9101 tablet by [facility] of tablet 00:00: mouth [place] 00 every 24 Medical (twenty- Branch ur) hours. levoFLOXaci 2023-0 Yes [id number] 750mg Take 1 [facility] 750 mg 1-10 9101 tablet by [facility] of tablet 00:00: mouth [place] 00 every 24 Medical (twenty- Branch ur) hours. levoFLOXaci 2023-0 Yes [id number] 750mg Take 1 [facility] 750 mg 1-10 9101 tablet by [facility] of tablet 00:00: mouth [place] 00 every 24 Medical ([facility] ur) hours. levoFLOXaci 2023-0 Yes [id number] 750mg Take 1 [facility] 750 mg 1-10 9101 tablet by [facility] of tablet 00:00: mouth [place] 00 every 24 Medical (twenty- Branch ur) hours. levoFLOXaci 2023-0 Yes [id number] 750mg Take 1 [facility] 750 mg 1-10 9101 tablet by [facility] of tablet 00:00: mouth [place] 00 every 24 Medical (twenty- Branch ur) hours. levoFLOXaci 2023-0 Yes [id number] 750mg Take 1 [facility] 750 mg 1-10 9101 tablet by [facility] of tablet 00:00: mouth [place] 00 every 24 Medical (twenty- Branch ur) hours. levoFLOXaci 2023-0 Yes [id number] 750mg Take 1 [facility] 750 mg 1-10 9101 tablet by [facility] of tablet 00:00: mouth [place] 00 every 24 Medical (twenty- Branch ur) hours. levoFLOXaci 2023-0 Yes [id number] 750mg Take 1 [facility] 750 mg 1-10 9101 tablet by [facility] of tablet 00:00: mouth [place] 00 every 24 Medical ([facility] ur) hours. levoFLOXaci 2023-0 Yes [id number] 750mg Take 1 [facility] 750 mg 1-10 9101 tablet by [facility] of tablet 00:00: mouth [place] 00 every 24 Medical (twenty- Branch ur) hours. levoFLOXaci 2023-0 Yes [id number] 750mg Take 1 [facility] 750 mg 1-10 9101 tablet by [facility] of tablet 00:00: mouth [place] 00 every 24 Medical (twenty- Branch ur) hours. levoFLOXaci 2023-0 Yes [id number] 750mg Take 1 [facility] 750 mg 1-10 9101 tablet by [facility] of tablet 00:00: mouth [place] 00 every 24 Medical (twenty- Branch ur) hours. levoFLOXaci 2023-0 Yes [id number] 750mg Take 1 [facility] 750 mg 1-10 9101 tablet by [facility] of tablet 00:00: mouth [place] 00 every 24 Medical (twenty- Branch ur) hours. levoFLOXaci 2023-0 Yes [id number] 750mg Take 1 [facility] 750 mg 1-10 9101 tablet by [facility] of tablet 00:00: mouth [place] 00 every 24 Medical ([facility] ur) hours. levoFLOXaci 2023-0 Yes [id number] 750mg Take 1 [facility] 750 mg 1-10 9101 tablet by [facility] of tablet 00:00: mouth [place] 00 every 24 Medical (twenty- Branch ur) hours. levoFLOXaci 2023-0 Yes [id number] 750mg Take 1 [facility] 750 mg 1-10 9101 tablet by [facility] of tablet 00:00: mouth [place] 00 every 24 Medical (twenty- Branch ur) hours. levoFLOXaci 2023-0 Yes [id number] 750mg Take 1 [facility] 750 mg 1-10 9101 tablet by [facility] of tablet 00:00: mouth [place] 00 every 24 Medical (twenty- Branch ur) hours. levoFLOXaci 2023-0 Yes [id number] 750mg Take 1 [facility] 750 mg 1-10 9101 tablet by [facility] of tablet 00:00: mouth [place] 00 every 24 Medical (twenty- Branch ur) hours. levoFLOXaci 2023-0 Yes [id number] 750mg Take 1 [facility] 750 mg 1-10 9101 tablet by [facility] of tablet 00:00: mouth [place] 00 every 24 Medical ([facility] ur) hours. levoFLOXaci 2023-0 Yes [id number] 750mg Take 1 [facility] 750 mg 1-10 9101 tablet by [facility] of tablet 00:00: mouth [place] 00 every 24 Medical (twenty- Branch ur) hours. levoFLOXaci 2023-0 Yes [id number] 750mg Take 1 [facility] 750 mg 1-10 9101 tablet by [facility] of tablet 00:00: mouth [place] 00 every 24 Medical (twenty- Branch ur) hours. levoFLOXaci 2023-0 Yes [id number] 750mg Take 1 [facility] 750 mg 1-10 9101 tablet by [facility] of tablet 00:00: mouth [place] 00 every 24 Medical (twenty- Branch ur) hours. levoFLOXaci 2023-0 Yes [id number] 750mg Take 1 [facility] 750 mg 1-10 9101 tablet by [facility] of tablet 00:00: mouth [place] 00 every 24 Medical (twenty- Branch ur) hours. levoFLOXaci 2023-0 Yes [id number] 750mg Take 1 [facility] 750 mg 1-10 9101 tablet by [facility] of tablet 00:00: mouth [place] 00 every 24 Medical ([facility] ur) hours. levoFLOXaci 2023-0 Yes [id number] 750mg Take 1 [facility] 750 mg 1-10 9101 tablet by [facility] of tablet 00:00: mouth [place] 00 every 24 Medical (twenty- Branch ur) hours. levoFLOXaci 2023-0 Yes [id number] 750mg Take 1 [facility] 750 mg 1-10 9101 tablet by [facility] of tablet 00:00: mouth [place] 00 every 24 Medical (twenty- Branch ur) hours. levoFLOXaci 2023-0 Yes [id number] 750mg Take 1 [facility] 750 mg 1-10 9101 tablet by [facility] of tablet 00:00: mouth [place] 00 every 24 Medical (twenty- Branch ur) hours. levoFLOXaci 2023-0 Yes [id number] 750mg Take 1 [facility] 750 mg 1-10 9101 tablet by [facility] of tablet 00:00: mouth [place] 00 every 24 Medical (twenty- Branch ur) hours. levoFLOXaci 2023-0 Yes [id number] 750mg Take 1 [facility] 750 mg 1-10 9101 tablet by [facility] of tablet 00:00: mouth [place] 00 every 24 Medical ([facility] ur) hours. levoFLOXaci 2023-0 Yes [id number] 750mg Take 1 [facility] 750 mg 1-10 9101 tablet by [facility] of tablet 00:00: mouth [place] 00 every 24 Medical (twenty- Branch ur) hours. levoFLOXaci 2023-0 Yes [id number] 750mg Take 1 [facility] 750 mg 1-10 9101 tablet by [facility] of tablet 00:00: mouth [place] 00 every 24 Medical (twenty- Branch ur) hours. levoFLOXaci 2023-0 Yes [id number] 750mg Take 1 [facility] 750 mg 1-10 9101 tablet by [facility] of tablet 00:00: mouth [place] 00 every 24 Medical (twenty- Branch ur) hours. levoFLOXaci 2023-0 Yes [id number] 750mg Take 1 [facility] 750 mg 1-10 9101 tablet by [facility] of tablet 00:00: mouth [place] 00 every 24 Medical (twenty- Branch ur) hours. levoFLOXaci 2023-0 Yes [id number] 750mg Take 1 [facility] 750 mg 1-10 9101 tablet by [facility] of tablet 00:00: mouth [place] 00 every 24 Medical ([facility] ur) hours. levoFLOXaci 2023-0 Yes [id number] 750mg Take 1 [facility] 750 mg 1-10 9101 tablet by [facility] of tablet 00:00: mouth [place] 00 every 24 Medical (twenty- Branch ur) hours. levoFLOXaci 2023-0 Yes [id number] 750mg Take 1 [facility] 750 mg 1-10 9101 tablet by [facility] of tablet 00:00: mouth [place] 00 every 24 Medical (twenty- Branch ur) hours. levoFLOXaci 2023-0 Yes [id number] 750mg Take 1 [facility] 750 mg 1-10 9101 tablet by [facility] of tablet 00:00: mouth [place] 00 every 24 Medical (twenty- Branch ur) hours. levoFLOXaci 2023-0 Yes [id number] 750mg Take 1 [facility] 750 mg 1-10 9101 tablet by [facility] of tablet 00:00: mouth [place] 00 every 24 Medical (twenty- Branch ur) hours. levoFLOXaci 2023-0 Yes [id number] 750mg Take 1 [facility] 750 mg 1-10 9101 tablet by [facility] of tablet 00:00: mouth [place] 00 every 24 Medical ([facility] ur) hours. levoFLOXaci 2023-0 Yes [id number] 750mg Take 1 [facility] 750 mg 1-10 9101 tablet by [facility] of tablet 00:00: mouth [place] 00 every 24 Medical (tw[facility] Branch ur) hours. levoFLOXaci 2023-0 Yes [id number] 750mg Take 1 [facility] 750 mg 1-10 9101 tablet by [facility] of tablet 00:00: mouth [place] 00 every 24 Medical (tw[facility] Branch ur) hours. levoFLOXaci 2023-0 Yes [id number] 750mg Take 1 [facility] 750 mg 1-10 9101 tablet by [facility] of tablet 00:00: mouth [place] 00 every 24 Medical (tw[facility] Branch ur) hours. levoFLOXaci 2023-0 Yes [id number] 750mg Take 1 [facility] 750 mg 1-10 9101 tablet by [facility] of tablet 00:00: mouth [place] 00 every 24 Medical (twenty-fo Branch ur) hours. levoFLOXaci 2023-0 Yes [id number] 750mg Take 1 [facility] 750 mg 1-10 9101 tablet by [facility] of tablet 00:00: mouth [place] 00 every 24 Medical (twenty-fo Branch ur) hours. levoFLOXaci 2023-0 Yes [id number] 750mg Take 1 [facility] 750 mg 1-10 9101 tablet by [facility] tablet 00:00: mouth [place] 00 every 24 Medical (twenty-[facility] Branch ur) hours. levoFLOXaci 2023-0 2023- No 750mg Take [address] [facility] [address] [facility] 1-[facility] -03 [facility] ([facility] 00:00: 00:00 (750 mg Med ical 750 MG 00 :00 total) [facility] tablet mouth. levoFLOXaci 2023-0 2023- No 750mg Take [address] [facility] [address] [facility] 1-[facility] - [facility] ([facility]) 00:00: 00:00 (750 mg Med ical 750 MG 00 :00 total) by [facility] tablet mouth. levoFLOXaci 2023-0 2023- No 750mg Take [address] [facility] [address] [facility] -02 01- tablet [facility] ([facility]) 00:00: 00:00 (750 mg Med ical 750 MG 00 :00 total) by Center tablet mouth. levoFLOXaci 2023-0 2023- No 750mg Take [address] [facility] -10 - tablet [facility] ([facility]) 00:00: 00:00 (750 mg Med ical 750 MG 00 :00 total) by Center tablet mouth. levoFLOXaci 2022- No 750mg Take [address] [facility] 05-08 tablet [facility] ([facility]) 00:00: 00:00 (750 mg Med ical 750 MG 00 :00 total) by Center tablet mouth. levoFLOXaci 2022- No 750mg Take [address] [facility] 05-08 tablet [facility] ([facility]) 00:00: 00:00 (750 mg Med ical 750 MG 00 :00 total) by Center tablet mouth. atorvastati 2021-04 Yes [id number] 10mg Take 1 [facility] 10 mg 2-29 tablet by [facility] of tablet 00:00: mouth at [place] 00 bedtime. Medical Branch ticagrelor 2021-04 Yes [id number] 90mg Take 1 [facility] ([facility]) 2-29 tablet by [facility] of 90 mg 00:00: mouth in [place] tablet 00 the Medical morning Branch and 1 tablet in the evening. ticagrelor 2021-04 Yes [id number] 90mg Take 1 [facility] ([facility]) 2-29 tablet by [facility] of 90 mg 00:00: mouth in [place] tablet 00 the Medical morning Branch and 1 tablet in the evening. ticagrelor 2021-04 Yes [id number] 90mg Take 1 [facility] ([facility]) 2-29 tablet by [facility] of 90 mg 00:00: mouth in [place] tablet 00 the Medical morning Branch and 1 tablet in the evening. ticagrelor 2021-04 Yes [id number] 90mg Take 1 [facility] ([facility]) 2-29 tablet by [facility] of 90 mg 00:00: mouth in [place] tablet 00 the Medical morning Branch and 1 tablet in the evening. ticagrelor 2021-04 Yes [id number] 90mg Take 1 [facility] ([facility]) 2-29 tablet by [facility] of 90 mg 00:00: mouth in [place] tablet 00 the Medical morning Branch and 1 tablet in the evening. ticagrelor 2021-04 Yes [id number] 90mg Take 1 [facility] ([facility]) 2-29 tablet by [facility] of 90 mg 00:00: mouth in [place] tablet 00 the Medical morning Branch and 1 tablet in the evening. ticagrelor 2021-04 Yes [id number] 90mg Take 1 [facility] ([facility]) 2-29 tablet by [facility] of 90 mg 00:00: mouth in [place] tablet 00 the Medical morning Branch and 1 tablet in the evening. ticagrelor 2021-04 Yes [id number] 90mg Take 1 [facility] ([facility]) 2-29 tablet by [facility] of 90 mg 00:00: mouth in [place] tablet 00 the Medical morning Branch and 1 tablet in the evening. ticagrelor 2021-04 Yes [id number] 90mg Take 1 [facility] ([facility]) 2-29 tablet by [facility] of 90 mg 00:00: mouth in [place] tablet 00 the Medical morning Branch and 1 tablet in the evening. ticagrelor 2021-04 Yes [id number] 90mg Take 1 [facility] ([facility]) 2-29 tablet by [facility] of 90 mg 00:00: mouth in [place] tablet 00 the Medical morning Branch and 1 tablet in the evening. ticagrelor 2021-04 Yes [id number] 90mg Take 1 [facility] ([facility]) 2-29 tablet by [facility] of 90 mg 00:00: mouth in [place] tablet 00 the Medical morning Branch and 1 tablet in the evening. ticagrelor 2021-04 Yes [id number] 90mg Take 1 [facility] ([facility]) 2-29 tablet by [facility] of 90 mg 00:00: mouth in [place] tablet 00 the Medical morning Branch and 1 tablet in the evening. ticagrelor 2021-04 Yes [id number] 90mg Take 1 [facility] ([facility]) 2-29 tablet by [facility] of 90 mg 00:00: mouth in [place] tablet 00 the Medical morning Branch and 1 tablet in the evening. ticagrelor 2021-04 Yes [id number] 90mg Take 1 [facility] ([facility]) 2-29 tablet by [facility] of 90 mg 00:00: mouth in [place] tablet 00 the Medical morning Branch and 1 tablet in the evening. ticagrelor 2021-04 Yes [id number] 90mg Take 1 [facility] ([facility]) 2-29 tablet by [facility] of 90 mg 00:00: mouth in [place] tablet 00 the Medical morning Branch and 1 tablet in the evening. ticagrelor 2021-04 Yes [id number] 90mg Take 1 [facility] ([facility]) 2-29 tablet by [facility] of 90 mg 00:00: mouth in [place] tablet 00 the Medical morning Branch and 1 tablet in the evening. ticagrelor 2021-04 Yes [id number] 90mg Take 1 [facility] ([facility]) 2-29 tablet by [facility] of 90 mg 00:00: mouth in [place] tablet 00 the Medical morning Branch and 1 tablet in the evening. ticagrelor 2021-04 Yes [id number] 90mg Take 1 [facility] ([facility]) 2-29 tablet by [facility] of 90 mg 00:00: mouth in [place] tablet 00 the Medical morning Branch and 1 tablet in the evening. ticagrelor 2021-04 Yes [id number] 90mg Take 1 [facility] ([facility]) 2-29 tablet by [facility] of 90 mg 00:00: mouth in [place] tablet 00 the Medical morning Branch and 1 tablet in the evening. ticagrelor 2021-04 Yes [id number] 90mg Take 1 [facility] ([facility]) 2-29 tablet by [facility] of 90 mg 00:00: mouth in [place] tablet 00 the Medical morning Branch and 1 tablet in the evening. ticagrelor 2021-04 Yes [id number] 90mg Take 1 [facility] ([facility]) 2-29 tablet by [facility] of 90 mg 00:00: mouth in [place] tablet 00 the Medical morning Branch and 1 tablet in the evening. ticagrelor 2021-04 Yes [id number] 90mg Take 1 [facility] ([facility]) 2-29 tablet by [facility] of 90 mg 00:00: mouth in [place] tablet 00 the Medical morning Branch and 1 tablet in the evening. ticagrelor 2021-04 Yes [id number] 90mg Take 1 [facility] ([facility]) 2-29 tablet by [facility] of 90 mg 00:00: mouth in [place] tablet 00 the Medical morning Branch and 1 tablet in the evening. ticagrelor 2021-04 Yes [id number] 90mg Take 1 [facility] ([facility]) 2-29 tablet by [facility] of 90 mg 00:00: mouth in [place] tablet 00 the Medical morning Branch and 1 tablet in the evening. ticagrelor 2021-04 Yes [id number] 90mg Take 1 [facility] ([facility]) 2-29 tablet by [facility] of 90 mg 00:00: mouth in [place] tablet 00 the Medical morning Branch and 1 tablet in the evening. ticagrelor 2021-04 Yes [id number] 90mg Take 1 [facility] ([facility]) 2-29 tablet by [facility] of 90 mg 00:00: mouth in [place] tablet 00 the Medical morning Branch and 1 tablet in the evening. ticagrelor 2021-04 Yes [id number] 90mg Take 1 [facility] ([facility]) 2-29 tablet by [facility] of 90 mg 00:00: mouth in [place] tablet 00 the Medical morning Branch and 1 tablet in the evening. ticagrelor 2021-04 Yes [id number] 90mg Take 1 [facility] ([facility]) 2-29 tablet by [facility] of 90 mg 00:00: mouth in [place] tablet 00 the Medical morning Branch and 1 tablet in the evening. ticagrelor 2021-04 Yes [id number] 90mg Take 1 [facility] ([facility]) 2-29 tablet by [facility] of 90 mg 00:00: mouth in [place] tablet 00 the Medical morning Branch and 1 tablet in the evening. ticagrelor 2021-04 Yes [id number] 90mg Take 1 [facility] ([facility]) 2-29 tablet by [facility] of 90 mg 00:00: mouth in [place] tablet 00 the Medical morning Branch and 1 tablet in the evening. ticagrelor 2021-04 Yes [id number] 90mg Take 1 [facility] (BRILINTA) 2-29 tablet by [facility] of 90 mg 00:00: mouth in [place] tablet 00 the Medical morning Branch and 1 tablet in the evening. ticagrelor 2021-04 Yes [id number] 90mg Take 1 [facility] ([facility]ILINTA) 2-29 tablet by [facility] of 90 mg 00:00: mouth in [place] tablet 00 the Medical morning Branch and 1 tablet in the evening. ticagrelor 2021-04 Yes [id number] 90mg Take 1 [facility] (BRILINTA) 2-29 tablet by [facility] of 90 mg 00:00: mouth in [place] tablet 00 the Medical morning Branch and 1 tablet in the evening. ticagrelor 2021-04 Yes [id number] 90mg Take 1 [facility] (BRILINTA) 2-29 tablet by [facility] of 90 mg 00:00: mouth in [place] tablet 00 the Medical morning Branch and 1 tablet in the evening. ticagrelor 2021-04 Yes [id number] 90mg Take 1 [facility] (BRILINTA) 2-29 tablet by [facility] of 90 mg 00:00: mouth in [place] tablet 00 the Medical morning Branch and 1 tablet in the evening. ticagrelor 2021-04 Yes [id number] 90mg Take 1 [facility] (BRILINTA) 2-29 tablet by [facility] of 90 mg 00:00: mouth in [place] tablet 00 the Medical morning Branch and 1 tablet in the evening. ticagrelor 2021-04 Yes [id number] 90mg Take 1 [facility] (BRILINTA) 2-29 tablet by [facility] of 90 mg 00:00: mouth in [place] tablet 00 the Medical morning Branch and 1 tablet in the evening. ticagrelor 2021-04 Yes [id number] 90mg Take 1 [facility] (BRILINTA) 2-29 tablet by [facility] of 90 mg 00:00: mouth in [place] tablet 00 the Medical morning Branch and 1 tablet in the evening. ticagrelor 2021-04 Yes [id number] 90mg Take 1 [facility] (BRILINTA) 2-29 tablet by [facility] of 90 mg 00:00: mouth in [place] tablet 00 the Medical morning Branch and 1 tablet in the evening. ticagrelor 2021-04 Yes [id number] 90mg Take 1 [facility] (BRILINTA) 2-29 tablet by [facility] of 90 mg 00:00: mouth in [place] tablet 00 the Medical morning Branch and 1 tablet in the evening. ticagrelor 2021-04 Yes [id number] 90mg Take 1 [facility] (BRILINTA) 2-29 tablet by [facility] of 90 mg 00:00: mouth in [place] tablet 00 the Medical morning Branch and 1 tablet in the evening. ticagrelor 2021-04 Yes [id number] 90mg Take 1 [facility] (BRILINTA) 2-29 tablet by [facility] of 90 mg 00:00: mouth in [place] tablet 00 the Medical morning Branch and 1 tablet in the evening. ticagrelor 2021-04 Yes [id number] 90mg Take 1 [facility] (BRILINTA) 2-29 tablet by [facility] of 90 mg 00:00: mouth in [place] tablet 00 the Medical morning Branch and 1 tablet in the evening. ticagrelor 2021-04 Yes [id number] 90mg Take 1 [facility] (BRILINTA) 2-29 tablet by [facility] of 90 mg 00:00: mouth in [place] tablet 00 the Medical morning Branch and 1 tablet in the evening. ticagrelor 2021-04 Yes [id number] 90mg Take 1 [facility] (BRILINTA) 2-29 tablet by [facility] of 90 mg 00:00: mouth in [place] tablet 00 the Medical morning Branch and 1 tablet in the evening. ticagrelor 2021-04 Yes [id number] 90mg Take 1 [facility] (BRILINTA) 2-29 tablet by [facility] of 90 mg 00:00: mouth in [place] tablet 00 the Medical morning Branch and 1 tablet in the evening. ticagrelor 2021-04 Yes [id number] 90mg Take 1 [facility] (BRILINTA) 2-29 tablet by [facility] of 90 mg 00:00: mouth in [place] tablet 00 the Medical morning Branch and 1 tablet in the evening. atorvastati 2021-04 Yes [id number] 10mg Take 1 [facility] 10 mg 2-29 tablet by [facility] tablet 00:00: mouth at [place] 00 bedtime. [facility] Branch atorvastati 2021-04 Yes [id number] 10mg Take 1 [facility] 10 mg 2-29 tablet by [facility] of tablet 00:00: mouth at [place] 00 bedtime. [facility] Branch ticagrelor 2021-04 Yes [id number] 90mg Take 1 [facility] (BRILINTA) 2-29 tablet by [facility] of 90 mg 00:00: mouth in [place] tablet 00 the Medical morning Branch and 1 tablet in the evening. atorvastati 2021-04 Yes [id number] 10mg Take 1 [facility] 10 mg 2-29 tablet by [facility] of tablet 00:00: mouth at [place] 00 bedtime. [facility] Branch ticagrelor 2021-04 Yes [id number] 90mg Take 1 [facility] (BRILINTA) 2-29 tablet by [facility] of 90 mg 00:00: mouth in [place] tablet 00 the Medical morning Branch and 1 tablet in the evening. atorvastati 2021-04 Yes [id number] 10mg Take 1 [facility] 10 mg 2-29 tablet by [facility] of tablet 00:00: mouth at [place] 00 bedtime. [facility] Branch ticagrelor 2021-04 Yes [id number] 90mg Take 1 [facility] (BRILINTA) 2-29 tablet by [facility] 90 mg 00:00: mouth in [place] tablet 00 the Medical morning Branch and 1 tablet in the evening. atorvastati 2021-04 Yes [id number] 10mg Take 1 [facility] 10 mg 2-29 tablet by [facility] of tablet 00:00: mouth at [place] 00 bedtime. [facility] Branch ticagrelor 2021-04 Yes [id number] 90mg Take 1 [facility] (BRILINTA) 2-29 tablet by [facility] of 90 mg 00:00: mouth in [place] tablet 00 the Medical morning Branch and 1 tablet in the evening. atorvastati 2021-04 Yes [id number] 10mg Take 1 [facility] 10 mg 2-29 tablet by [facility] of tablet 00:00: mouth at [place] 00 bedtime. [facility] Branch ticagrelor 2021-04 Yes [id number] 90mg Take 1 [facility] (BRILINTA) 2-29 tablet by [facility] of 90 mg 00:00: mouth in [place] tablet 00 the Medical morning Branch and 1 tablet in the evening. atorvastati 2021-04 Yes [id number] 10mg Take 1 [facility] 10 mg 2-29 tablet by [facility] of tablet 00:00: mouth at [place] 00 bedtime. [facility] Branch ticagrelor 2021-04 Yes [id number] 90mg Take 1 [facility] (BRILINTA) 2-29 tablet by [facility] of 90 mg 00:00: mouth in [place] tablet 00 the Medical morning Branch and 1 tablet in the evening. atorvastati 2021-04 Yes [id number] 10mg Take 1 [facility] 10 mg 2-29 tablet by [facility] of tablet 00:00: mouth at [place] 00 bedtime. [facility] Branch ticagrelor 2021-04 Yes [id number] 90mg Take 1 [facility] (BRILINTA) 2-29 tablet by [facility] of 90 mg 00:00: mouth in [place] tablet 00 the Medical morning Branch and 1 tablet in the evening. atorvastati 2021-04 Yes [id number] 10mg Take 1 [facility] 10 mg 2-29 tablet by [facility] of tablet 00:00: mouth at [place] 00 bedtime. Medical Branch ticagrelor 2021-04 Yes [id number] 90mg Take 1 [facility] (BRILINTA) 2-29 tablet by [facility] of 90 mg 00:00: mouth in [place] tablet 00 the Medical morning Branch and 1 tablet in the evening. atorvastati 2021-04 Yes [id number] 10mg Take 1 [facility] 10 mg 2-29 tablet by [facility] of tablet 00:00: mouth at [place] 00 bedtime. [facility] Branch ticagrelor 2021-04 Yes [id number] 90mg Take 1 [facility] (BRILINTA) 2-29 tablet by [facility] of 90 mg 00:00: mouth in [place] tablet 00 the Medical morning Branch and 1 tablet in the evening. atorvastati 2021-04 Yes [id number] 10mg Take 1 [facility] 10 mg 2-29 tablet by [facility] of tablet 00:00: mouth at [place] 00 bedtime. [facility] Branch ticagrelor 2021-04 Yes [id number] 90mg Take 1 [facility] (BRILINTA) 2-29 tablet by [facility] 90 mg 00:00: mouth in [place] tablet 00 the Medical morning Branch and 1 tablet in the evening. atorvastati 2021-04 Yes [id number] 10mg Take 1 [facility] 10 mg 2-29 tablet by [facility] of tablet 00:00: mouth at [place] 00 bedtime. [facility] Branch ticagrelor 2021-04 Yes [id number] 90mg Take 1 [facility] (BRILINTA) 2-29 tablet by [facility] 90 mg 00:00: mouth in [place] tablet 00 the Medical morning Branch and 1 tablet in the evening. atorvastati 2021-04 Yes [id number] 10mg Take 1 [facility] 10 mg 2-29 tablet by [facility] of tablet 00:00: mouth at [place] 00 bedtime. [facility] Branch ticagrelor 2021-04 Yes [id number] 90mg Take 1 [facility] (BRILINTA) 2-29 tablet by [facility] of 90 mg 00:00: mouth in [place] tablet 00 the Medical morning Branch and 1 tablet in the evening. atorvastati 2021-04 Yes [id number] 10mg Take 1 [facility] 10 mg 2-29 tablet by [facility] of tablet 00:00: mouth at [place] 00 bedtime. [facility] Branch ticagrelor 2021-04 Yes [id number] 90mg Take 1 [facility] (BRILINTA) 2-29 tablet by [facility] 90 mg 00:00: mouth in [place] tablet 00 the Medical morning Branch and 1 tablet in the evening. atorvastati 2021-04 Yes [id number] 10mg Take 1 [facility] 10 mg 2-29 tablet by [facility] of tablet 00:00: mouth at [place] 00 bedtime. [facility] Branch ticagrelor 2021-04 Yes [id number] 90mg Take 1 [facility] (BRILINTA) 2-29 tablet by [facility] of 90 mg 00:00: mouth in [place] tablet 00 the Medical morning Branch and 1 tablet in the evening. atorvastati 2021-04 Yes [id number] 10mg Take 1 [facility] 10 mg 2-29 tablet by [facility] tablet 00:00: mouth at [place] 00 bedtime. [facility] Branch ticagrelor 2021-04 Yes [id number] 90mg Take 1 [facility] (BRILINTA) 2-29 tablet by [facility] of 90 mg 00:00: mouth in [place] tablet 00 the Medical morning Branch and 1 tablet in the evening. atorvastati 2021-04 Yes [id number] 10mg Take 1 [facility] 10 mg 2-29 tablet by [facility] of tablet 00:00: mouth at [place] 00 bedtime. [facility] Branch ticagrelor 2021-04 Yes [id number] 90mg Take 1 [facility] (BRILINTA) 2-29 tablet by [facility] of 90 mg 00:00: mouth in [place] tablet 00 the Medical morning Branch and 1 tablet in the evening. atorvastati 2021-04 Yes [id number] 10mg Take 1 [facility] 10 mg 2-29 tablet by [facility] of tablet 00:00: mouth at [place] 00 bedtime. [facility] Branch ticagrelor 2021-04 Yes [id number] 90mg Take 1 [facility] (BRILINTA) 2-29 tablet by [facility] 90 mg 00:00: mouth in [place] tablet 00 the Medical morning Branch and 1 tablet in the evening. atorvastati 2021-04 Yes [id number] 10mg Take 1 [facility] 10 mg 2-29 tablet by [facility] of tablet 00:00: mouth at [place] 00 bedtime. [facility] Branch ticagrelor 2021-04 Yes [id number] 90mg Take 1 [facility] (BRILINTA) 2-29 tablet by [facility] of 90 mg 00:00: mouth in [place] tablet 00 the Medical morning Branch and 1 tablet in the evening. atorvastati 2021-04 Yes [id number] 10mg Take 1 [facility] 10 mg 2-29 tablet by [facility] of tablet 00:00: mouth at [place] 00 bedtime. [facility] Branch ticagrelor 2021-04 Yes [id number] 90mg Take 1 [facility] (BRILINTA) 2-29 tablet by [facility] of 90 mg 00:00: mouth in [place] tablet 00 the Medical morning Branch and 1 tablet in the evening. atorvastati 2021-04 Yes [id number] 10mg Take 1 [facility] 10 mg 2-29 tablet by [facility] of tablet 00:00: mouth at [place] 00 bedtime. [facility] Branch ticagrelor 2021-04 Yes [id number] 90mg Take 1 [facility] (BRILINTA) 2-29 tablet by [facility] of 90 mg 00:00: mouth in [place] tablet 00 the Medical morning Branch and 1 tablet in the evening. atorvastati 2021-04 Yes [id number] 10mg Take 1 [facility] 10 mg 2-29 tablet by [facility] of tablet 00:00: mouth at [place] 00 bedtime. [facility] Branch ticagrelor 2021-04 Yes [id number] 90mg Take 1 [facility] (BRILINTA) 2-29 tablet by [facility] of 90 mg 00:00: mouth in [place] tablet 00 the Medical morning Branch and 1 tablet in the evening. ticagrelor 2021-04- No [id number] 90mg Take 1 [facility] (BRILINTA) 2-29 05-22 tablet by [facility] of 90 mg 00:00: 00:00 mouth in [place] tablet 00 :00 the Medical morning Branch and 1 tablet in the evening. atorvastati 2021-04- No [id number] 10mg Take 1 [facility] 10 mg 2-29 02-08 tablet by [facility] tablet 00:00: 00:00 mouth at [place] 00 :00 bedtime. [facility] Branch COLCHICINE 2021-04 Yes [id number] TAKE 1 [facility] 0.6 mg 2-28 TABLET BY [facility] of tablet 00:00: MOUTH [place] 00 DAILY Medical Branch LORATADINE 2021-04 Yes [id number] TAKE 1 [facility] 10 mg 2-28 TABLET BY [facility] of tablet 00:00: MOUTH [place] 00 DAILY Medical Branch DOXAZOSIN 2 2021-04 Yes TAKE 1 [facility] mg tablet 2-28 TABLET BY it[facility] o f 00:00: MOUTH [place] 00 EVERY Medical NIGHT AT Branch BEDTIME COLCHICINE 2021-04 Yes [id number] TAKE 1 [facility] 0.6 mg 2-28 TABLET BY [facility] of tablet 00:00: MOUTH [place] 00 DAILY Medical Branch LORATADINE 2021-04 Yes [id number] TAKE 1 [facility] 10 mg 2-28 TABLET BY [facility] of tablet 00:00: MOUTH [place] DAILY Medical Branch DOXAZOSIN 2 2021-04 Yes TAKE 1 [facility] mg tablet 2-28 TABLET BY ity o f 00:00: MOUTH [place] 00 EVERY Medical NIGHT AT Branch BEDTIME COLCHICINE 2021-04 Yes [id number] TAKE 1 [facility] 0.6 mg 2-28 TABLET BY [facility] of tablet 00:00: MOUTH [place] DAILY Medical Branch LORATADINE 2021-04 Yes [id number] TAKE 1 [facility] 10 mg 2-28 TABLET BY [facility] of tablet 00:00: MOUTH [place] DAILY Medical Branch DOXAZOSIN 2 2021-04 Yes TAKE 1 [facility] mg tablet 2-28 TABLET BY ity o f 00:00: MOUTH [place] EVERY Medical NIGHT AT [place] BEDTIME COLCHICINE 2021-04 Yes [id number] TAKE 1 [facility] 0.6 mg 2-28 TABLET BY [facility] of tablet 00:00: MOUTH [place] 00 DAILY Medical Branch LORATADINE 2021-04 Yes [id number] TAKE 1 [facility] 10 mg 2-28 TABLET BY [facility] of tablet 00:00: MOUTH [place] DAILY Medical Branch DOXAZOSIN 2 2021-04 Yes TAKE 1 [facility] mg tablet 2-28 TABLET BY ity o f 00:00: MOUTH [place] 00 EVERY Medical NIGHT AT [place] BEDTIME COLCHICINE 2021-04 Yes [id number] TAKE 1 [facility] 0.6 mg 2-28 TABLET BY [facility] of tablet 00:00: MOUTH [place] DAILY Medical Branch LORATADINE 2021-04 Yes [id number] TAKE 1 [facility] 10 mg 2-28 TABLET BY [facility] of tablet 00:00: MOUTH [place] DAILY Medical Branch DOXAZOSIN 2 2021-04 Yes TAKE 1 [facility] mg tablet 2-28 TABLET BY ity o f 00:00: MOUTH [place] 00 EVERY Medical NIGHT AT Branch BEDTIME COLCHICINE 2021-04 Yes [id number] TAKE 1 [facility] 0.6 mg 2-28 TABLET BY [facility] of tablet 00:00: MOUTH DAILY Medical Branch LORATADINE 2021-04 Yes [id number] TAKE 1 [facility] 10 mg 2-28 TABLET BY [facility] of tablet 00:00: MOUTH DAILY Medical Branch DOXAZOSIN 2 2021-04 Yes TAKE 1 [facility] mg tablet 2-28 TABLET BY ity o f 00:00: MOUTH EVERY Medical NIGHT AT Branch BEDTIME COLCHICINE 2021-04 Yes [id number] TAKE 1 [facility] 0.6 mg 2-28 TABLET BY [facility] of tablet 00:00: MOUTH DAILY Medical Branch LORATADINE 2021-04 Yes [id number] TAKE 1 [facility] 10 mg 2-28 TABLET BY [facility] of tablet 00:00: MOUTH DAILY Medical Branch DOXAZOSIN 2 2021-04 Yes TAKE 1 [facility] mg tablet 2-28 TABLET BY ity o f 00:00: MOUTH EVERY Medical NIGHT AT Branch BEDTIME COLCHICINE 2021-04 Yes [id number] TAKE 1 [facility] 0.6 mg 2-28 TABLET BY [facility] of tablet 00:00: MOUTH DAILY Medical Branch LORATADINE 2021-04 Yes [id number] TAKE 1 [facility] 10 mg 2-28 TABLET BY [facility] of tablet 00:00: MOUTH DAILY Medical Branch DOXAZOSIN 2 2021-04 Yes TAKE 1 [facility] mg tablet 2-28 TABLET BY ity o f 00:00: MOUTH EVERY Medical NIGHT AT Branch BEDTIME COLCHICINE 2021-04 Yes [id number] TAKE 1 [facility] 0.6 mg 2-28 TABLET BY [facility] of tablet 00:00: MOUTH DAILY Medical Branch LORATADINE 2021-04 Yes [id number] TAKE 1 [facility] 10 mg 2-28 TABLET BY [facility] of tablet 00:00: MOUTH DAILY Medical Branch DOXAZOSIN 2 2021-04 Yes TAKE 1 [facility] mg tablet 2-28 TABLET BY ity o f 00:00: MOUTH EVERY Medical NIGHT AT Branch BEDTIME COLCHICINE 2021-04 Yes [id number] TAKE 1 [facility] 0.6 mg 2-28 TABLET BY [facility] of tablet 00:00: MOUTH DAILY Medical Branch LORATADINE 2021-04 Yes [id number] TAKE 1 [facility] 10 mg 2-28 TABLET BY [facility] of tablet 00:00: MOUTH DAILY Medical Branch DOXAZOSIN 2 2021-04 Yes TAKE 1 [facility] mg tablet 2-28 TABLET BY ity o f 00:00: MOUTH EVERY Medical NIGHT AT Branch BEDTIME COLCHICINE 2021-04 Yes [id number] TAKE 1 [facility] 0.6 mg 2-28 TABLET BY [facility] of tablet 00:00: MOUTH DAILY Medical Branch LORATADINE 2021-04 Yes [id number] TAKE 1 [facility] 10 mg 2-28 TABLET BY [facility] of tablet 00:00: MOUTH [place] DAILY Medical Branch DOXAZOSIN 2 2021-04 Yes TAKE 1 [facility] mg tablet 2-28 TABLET BY ity o f 00:00: MOUTH EVERY Medical NIGHT AT Branch BEDTIME COLCHICINE 2021-04 Yes [id number] TAKE 1 [facility] 0.6 mg 2-28 TABLET BY [facility] of tablet 00:00: MOUTH DAILY Medical Branch LORATADINE 2021-04 Yes [id number] TAKE 1 [facility] 10 mg 2-28 TABLET BY [facility] of tablet 00:00: MOUTH [place] DAILY Medical Branch DOXAZOSIN 2 2021-04 Yes TAKE 1 [facility] mg tablet 2-28 TABLET BY ity o f 00:00: MOUTH EVERY Medical NIGHT AT [place] BEDTIME COLCHICINE 2021-04 Yes [id number] TAKE 1 [facility] 0.6 mg 2-28 TABLET BY [facility] of tablet 00:00: MOUTH [place] DAILY Medical Branch LORATADINE 2021-04 Yes [id number] TAKE 1 [facility] 10 mg 2-28 TABLET BY [facility] of tablet 00:00: MOUTH [place] DAILY Medical Branch DOXAZOSIN 2 2021-04 Yes TAKE 1 [facility] mg tablet 2-28 TABLET BY ity o f 00:00: MOUTH EVERY Medical NIGHT AT Branch BEDTIME COLCHICINE 2021-04 Yes [id number] TAKE 1 [facility] 0.6 mg 2-28 TABLET BY [facility] of tablet 00:00: MOUTH [place] DAILY Medical Branch LORATADINE 2021-04 Yes [id number] TAKE 1 [facility] 10 mg 2-28 TABLET BY [facility] of tablet 00:00: MOUTH [place] DAILY Medical Branch DOXAZOSIN 2 2021-04 Yes TAKE 1 [facility] mg tablet 2-28 TABLET BY ity o f 00:00: MOUTH [place] EVERY Medical NIGHT AT Branch BEDTIME COLCHICINE 2021-04 Yes [id number] TAKE 1 [facility] 0.6 mg 2-28 TABLET BY [facility] of tablet 00:00: MOUTH DAILY Medical Branch LORATADINE 2021-04 Yes [id number] TAKE 1 [facility] 10 mg 2-28 TABLET BY [facility] of tablet 00:00: MOUTH DAILY Medical Branch DOXAZOSIN 2 2021-04 Yes TAKE 1 [facility] mg tablet 2-28 TABLET BY ity o f 00:00: MOUTH [place] EVERY Medical NIGHT AT Branch BEDTIME COLCHICINE 2021-04 Yes [id number] TAKE 1 [facility] 0.6 mg 2-28 TABLET BY ity of tablet 00:00: MOUTH DAILY Medical Branch LORATADINE 2021-04 Yes [id number] TAKE 1 [facility] 10 mg 2-28 TABLET BY [facility] of tablet 00:00: MOUTH [place] DAILY Medical Branch DOXAZOSIN 2 2021-04 Yes TAKE 1 [facility] mg tablet 2-28 TABLET BY ity o f 00:00: MOUTH [place] EVERY Medical NIGHT AT Branch BEDTIME COLCHICINE 2021-04 Yes [id number] TAKE 1 [facility] 0.6 mg 2-28 TABLET BY it[facility] of tablet 00:00: MOUTH DAILY Medical Branch LORATADINE 2021-04 Yes [id number] TAKE 1 [facility] 10 mg 2-28 TABLET BY [facility] of tablet 00:00: MOUTH [place] DAILY Medical Branch DOXAZOSIN 2 2021-04 Yes TAKE 1 [facility] mg tablet 2-28 TABLET BY ity o f 00:00: MOUTH EVERY Medical NIGHT AT [place] BEDTIME COLCHICINE 2021-04 Yes [id number] TAKE 1 [facility] 0.6 mg 2-28 TABLET BY [facility] of tablet 00:00: MOUTH DAILY Medical Branch LORATADINE 2021-04 Yes [id number] TAKE 1 [facility] 10 mg 2-28 TABLET BY [facility] of tablet 00:00: MOUTH [place] DAILY Medical Branch DOXAZOSIN 2 2021-04 Yes TAKE 1 [facility] mg tablet 2-28 TABLET BY ity o f 00:00: MOUTH [place] EVERY Medical NIGHT AT Branch BEDTIME COLCHICINE 2021-04 Yes [id number] TAKE 1 [facility] 0.6 mg 2-28 TABLET BY [facility] of tablet 00:00: MOUTH [place] DAILY Medical Branch LORATADINE 2021-04 Yes [id number] TAKE 1 [facility] 10 mg 2-28 TABLET BY [facility] of tablet 00:00: [facility] DAILY Medical Branch DOXAZOSIN 2 2021-04 Yes TAKE 1 [facility] ers mg tablet 06-26 TABLET BY ity o f 00:00: [facility] EVERY Medical NIGHT AT Branch BEDTIME COLCHICINE 2021-04- No [id number] TAKE 1 [facility] 0.6 mg 06-26 TABLET BY ity of tablet 00:00: 00:00 [facility] 00 : DAILY Medical Branch LORATADINE 2021-04- No [id number] TAKE 1 [facility] 10 mg 06-26 TABLET BY ity of tablet 00:00: 00:00 [facility] 00 : DAILY Medical Branch DOXAZOSIN 2 2021-04- No TAKE 1 [facility] mg tablet 06-26 TABLET BY ity of 00:00: 00:00 [facility] 00 : EVERY Medical NIGHT AT [place] BEDTIME LISINOPRIL 2021-04 Yes [id number] TAKE 1 [facility] 20 mg 2-14 TABLET BY [facility] of tablet 00:00: [facility] TWICE Medical DAILY Branch LISINOPRIL 2021-04 Yes [id number] TAKE 1 [facility] 20 mg 2-14 TABLET BY [facility] of tablet 00:00: [facility] TWICE Medical DAILY Branch LISINOPRIL 2021-04 Yes [id number] TAKE 1 [facility] 20 mg 2-14 TABLET BY [facility] of tablet 00:00: [facility] TWICE Medical DAILY Branch LISINOPRIL 2021-04 Yes [id number] TAKE 1 [facility] 20 mg 2-14 TABLET BY it[facility] of tablet 00:00: [facility] TWICE Medical DAILY Branch LISINOPRIL 2021-04 Yes [id number] TAKE 1 [facility] 20 mg 2-14 TABLET BY [facility]y of tablet 00:00: [facility] TWICE Medical DAILY Branch LISINOPRIL 2021-04 Yes [id number] TAKE 1 [facility] 20 mg 2-14 TABLET BY [facility] of tablet 00:00: [facility] TWICE Medical DAILY Branch LISINOPRIL 2021-04 Yes [id number] TAKE 1 [facility] 20 mg 2-14 TABLET BY [facility] of tablet 00:00: [facility] TWICE Medical DAILY Branch LISINOPRIL 2021-04 Yes [id number] TAKE 1 [facility] 20 mg 2-14 TABLET BY [facility] of tablet 00:00: TWICE Medical DAILY Branch LISINOPRIL 2021-04 Yes [id number] TAKE 1 [facility] 20 mg 2-14 TABLET BY [facility] of tablet 00:00: TWICE Medical DAILY Branch LISINOPRIL 2021-04 Yes [id number] TAKE 1 [facility] 20 mg 2-14 TABLET BY [facility] of tablet 00:00: TWICE Medical DAILY Branch LISINOPRIL 2021-04 Yes [id number] TAKE 1 [facility] 20 mg 2-14 TABLET BY [facility] of tablet 00:00: TWICE Medical DAILY Branch LISINOPRIL 2021-04 Yes [id number] TAKE 1 [facility] 20 mg 2-14 TABLET BY [facility] of tablet 00:00: [facility] TWICE Medical DAILY Branch LISINOPRIL 2021-04 Yes [id number] TAKE 1 [facility] 20 mg 2-14 TABLET BY ity of tablet 00:00: [facility] TWICE Medical DAILY Branch LISINOPRIL 2021-04 Yes [id number] TAKE 1 [facility] 20 mg 2-14 TABLET BY [facility] of tablet 00:00: [facility] TWICE Medical DAILY Branch LISINOPRIL 2021-04 Yes [id number] TAKE 1 [facility] 20 mg 2-14 TABLET BY [facility] of tablet 00:00: [facility] TWICE Medical DAILY Branch LISINOPRIL 2021-04 Yes [id number] TAKE 1 [facility] 20 mg 2-14 TABLET BY it[facility] of tablet 00:00: [facility] TWICE Medical DAILY Branch LISINOPRIL 2021-04 Yes [id number] TAKE 1 [facility] 20 mg 2-14 TABLET BY [facility] of tablet 00:00: [facility] TWICE Medical DAILY Branch LISINOPRIL 2021-04 Yes [id number] TAKE 1 [facility] 20 mg 2-14 TABLET BY [facility] of tablet 00:00: [facility] TWICE Medical DAILY Branch LISINOPRIL 2021-04 Yes [id number] TAKE 1 [facility] 20 mg 2-14 TABLET BY it[facility] of tablet 00:00: [facility] TWICE Medical DAILY Branch LISINOPRIL 2021-04 Yes [id number] TAKE 1 [facility] 20 mg 2-14 TABLET BY [facility] of tablet 00:00: [facility] TWICE Medical DAILY Branch LISINOPRIL 2021-04 Yes [id number] TAKE 1 [facility] 20 mg 2-14 TABLET BY [facility] of tablet 00:00: [facility] TWICE Medical DAILY Branch LISINOPRIL 2021-04 Yes [id number] TAKE 1 [facility] 20 mg 2-14 TABLET BY [facility] of tablet 00:00: MOUTH TWICE Medical DAILY Branch LISINOPRIL 2021-04 Yes [id number] TAKE 1 [facility] 20 mg 2-14 TABLET BY [facility] of tablet 00:00: TWICE Medical DAILY Branch LISINOPRIL 2021-04 Yes [id number] TAKE 1 [facility] 20 mg 2-14 TABLET BY [facility] of tablet 00:00: MOUTH TWICE Medical DAILY Branch LISINOPRIL 2021-04 Yes [id number] TAKE 1 [facility] 20 mg 2-14 TABLET BY [facility] of tablet 00:00: TWICE Medical DAILY Branch LISINOPRIL 2021-04 Yes [id number] TAKE 1 [facility] 20 mg 2-14 TABLET BY [facility] of tablet 00:00: TWICE Medical DAILY Branch LISINOPRIL 2021-04 Yes [id number] TAKE 1 [facility] 20 mg 2-14 TABLET BY [facility] of tablet 00:00: TWICE Medical DAILY Branch LISINOPRIL 2021-04 Yes [id number] TAKE 1 [facility] 20 mg 2-14 TABLET BY [facility] of tablet 00:00: [facility] TWICE Medical DAILY Branch LISINOPRIL 2021-04 Yes [id number] TAKE 1 [facility] 20 mg 2-14 TABLET BY it[facility] of tablet 00:00: TWICE Medical DAILY Branch LISINOPRIL 2021-04 Yes [id number] TAKE 1 [facility] 20 mg 2-14 TABLET BY [facility] of tablet 00:00: TWICE Medical DAILY Branch LISINOPRIL 2021-04 Yes [id number] TAKE 1 [facility] 20 mg 2-14 TABLET BY [facility] of tablet 00:00: MOUTH TWICE Medical DAILY Branch LISINOPRIL 2021-04 Yes [id number] TAKE 1 [facility] 20 mg 2-14 TABLET BY [facility] of tablet 00:00: [facility] TWICE Medical DAILY Branch LISINOPRIL 2021-04 Yes [id number] TAKE 1 [facility] 20 mg 2-14 TABLET BY it[facility] of tablet 00:00: TWICE Medical DAILY Branch LISINOPRIL 2021-04 Yes [id number] TAKE 1 [facility] 20 mg 2-14 TABLET BY [facility] of tablet 00:00: [facility] TWICE Medical DAILY Branch LISINOPRIL 2021-043- No [id number] TAKE 1 [facility] 20 mg 2-14 - TABLET BY [facility] of tablet 00:00: 00:00 MOUTH 00 :00 TWICE Medical DAILY Branch TAMSULOSIN 2021-04 Yes [id number] .4mg TAKE 1 [facility] 0.4 mg 24 1-30 CAPSULE BY ity of hr capsule 00:00: [facility] DAILY Medical Branch TAMSULOSIN 2021-04 Yes [id number] .4mg TAKE 1 [facility] 0.4 mg 24 1-30 CAPSULE BY ity of hr capsule 00:00: [facility] DAILY Medical Branch TAMSULOSIN 2021-04 Yes [id number] .4mg TAKE 1 [facility] 0.4 mg 24 1-30 CAPSULE BY ity of hr capsule 00:00: [facility] DAILY Medical Branch TAMSULOSIN 2021-04 Yes [id number] .4mg TAKE 1 [facility] 0.4 mg 24 1-30 CAPSULE BY ity of hr capsule 00:00: [facility] DAILY Medical Branch TAMSULOSIN 2021-04 Yes [id number] .4mg TAKE 1 [facility] 0.4 mg 24 1-30 CAPSULE BY ity of hr capsule 00:00: [facility] DAILY Medical Branch TAMSULOSIN 2021-04 Yes [id number] .4mg TAKE 1 [facility] 0.4 mg 24 1-30 CAPSULE BY ity of hr capsule 00:00: [facility] DAILY Medical Branch TAMSULOSIN 2021-04 Yes [id number] .4mg TAKE 1 [facility] 0.4 mg 24 1-30 CAPSULE BY ity of hr capsule 00:00: [facility] DAILY Medical Branch TAMSULOSIN 2021-04 Yes [id number] .4mg TAKE 1 [facility] 0.4 mg 24 1-30 CAPSULE BY ity of hr capsule 00:00: [facility] DAILY Medical Branch TAMSULOSIN 2021-04 Yes [id number] .4mg TAKE 1 [facility] 0.4 mg 24 1-30 CAPSULE BY ity of hr capsule 00:00: [facility] DAILY [facility] Branch TAMSULOSIN 2021-04 Yes [id number] .[id number] TAKE 1 Univers 0.4 mg 24 1-30 CAPSULE BY ity of hr capsule 00:00: [facility] DAILY [facility] TAMSULOSIN 2021-04 Yes [id number] .4mg TAKE 1 Univers 0.4 mg 24 1-30 CAPSULE BY ity of hr capsule 00:00: [facility]TH DAILY [facility] TAMSULOSIN 2021-04 Yes [id number] .4mg TAKE 1 Univers 0.4 mg 24 1-30 CAPSULE BY ity of hr capsule 00:00: DAILY [facility] TAMSULOSIN 2021-04 Yes [id number] .4mg TAKE 1 [facility] 0.4 mg 24 1-30 CAPSULE BY ity of hr capsule 00:00: M[facility]TH DAILY [facility] TAMSULOSIN 2021-04 Yes [id number] .4mg TAKE 1 Univers 0.4 mg 24 1-30 CAPSULE BY ity of hr capsule 00:00: [facility] DAILY Medical Branch TAMSULOSIN 2021-04 Yes [id number] .4mg TAKE 1 Univers 0.4 mg 24 1-30 CAPSULE BY ity of hr capsule 00:00: [facility] DAILY Medical Branch TAMSULOSIN 2021-04 Yes [id number] .[id number] TAKE 1 Univers 0.4 mg 24 1-30 CAPSULE BY ity of hr capsule 00:00: DAILY [facility] TAMSULOSIN 2021-04 Yes [id number] .4mg TAKE 1 Univers 0.4 mg 24 1-30 CAPSULE BY ity of hr capsule 00:00: [facility] DAILY Medical Branch TAMSULOSIN 2021-04 Yes [id number] .4mg TAKE 1 Univers 0.4 mg 24 1-30 CAPSULE BY ity of hr capsule 00:00: [facility] DAILY Medical Branch TAMSULOSIN 2021-04 Yes [id number] .[id number] TAKE 1 Univers 0.4 mg 24 1-30 CAPSULE BY ity of hr capsule 00:00: [facility] DAILY Medical Branch TAMSULOSIN 2021-04 Yes [id number] .[id number] TAKE 1 Univers 0.4 mg 24 1-30 CAPSULE BY ity of hr capsule 00:00: [facility] DAILY Medical Branch TAMSULOSIN 2021-04 Yes [id number] .4mg TAKE 1 Univers 0.4 mg 24 1-30 CAPSULE BY ity of hr capsule 00:00: [facility] DAILY Medical Branch TAMSULOSIN 2021-04 Yes [id number] .[id number] TAKE 1 Univers 0.4 mg 24 1-30 CAPSULE BY ity of hr capsule 00:00: [facility] DAILY Medical Branch TAMSULOSIN 2021-04 Yes [id number] .4mg TAKE 1 Univers 0.4 mg 24 1-30 CAPSULE BY ity of hr capsule 00:00: [facility] DAILY Medical Branch TAMSULOSIN 2021-04 Yes [id number] .4mg TAKE 1 Univers 0.4 mg 24 1-30 CAPSULE BY ity of hr capsule 00:00: DAILY [facility] TAMSULOSIN 2021-04 Yes [id number] .4mg TAKE 1 Univers 0.4 mg 24 1-30 CAPSULE BY ity of hr capsule 00:00: [facility] DAILY Medical Branch TAMSULOSIN 2021-04 Yes [id number] .[id number] TAKE 1 Univers 0.4 mg 24 1-30 CAPSULE BY ity of hr capsule 00:00: [facility] DAILY Medical Branch TAMSULOSIN 2021-04 Yes [id number] .[id number] TAKE 1 Univers 0.4 mg 24 1-30 CAPSULE BY ity of hr capsule 00:00: [facility] DAILY Medical Branch TAMSULOSIN 2021-04 Yes [id number] .4mg TAKE 1 Univers 0.4 mg 24 1-30 CAPSULE BY ity of hr capsule 00:00: [facility] DAILY Medical Branch TAMSULOSIN 2021-04 Yes [id number] .4mg TAKE 1 Univers 0.4 mg 24 1-30 CAPSULE BY ity of hr capsule 00:00: [facility] DAILY Medical Branch TAMSULOSIN 2021-04 Yes [id number] .[id number] TAKE 1 Univers 0.4 mg 24 1-30 CAPSULE BY ity of hr capsule 00:00: [facility] DAILY Medical Branch TAMSULOSIN 2021-04 Yes [id number] .[id number] TAKE 1 [facility] 0.4 mg 24 1-30 CAPSULE BY ity of hr capsule 00:00: [facility] DAILY Medical Branch TAMSULOSIN 2021-04 Yes [id number] .4mg TAKE 1 Univers 0.4 mg 24 1-30 CAPSULE BY ity of hr capsule 00:00: [facility] DAILY Medical Branch TAMSULOSIN 2021-04 Yes [id number] .4mg TAKE 1 [facility] 0.4 mg 24 1-30 CAPSULE BY ity of hr capsule 00:00: [facility] DAILY Medical Branch TAMSULOSIN 2021-04 Yes [id number] .4mg TAKE 1 [facility] 0.4 mg 24 1-30 CAPSULE BY ity of hr capsule 00:00: MOUTH [place] DAILY Medical Branch TAMSULOSIN 2021-04 Yes [id number] .4mg TAKE 1 [facility] 0.4 mg 24 1-30 CAPSULE BY ity of hr capsule 00:00: MOUTH [place] DAILY [facility] TAMSULOSIN 2021-04 Yes [id number] .4mg TAKE 1 [facility] 0.4 mg 24 1-30 CAPSULE BY ity of hr capsule 00:00: MOUTH [place] DAILY [facility] TAMSULOSIN 2021-04 Yes [id number] .4mg TAKE 1 Univers 0.4 mg 24 1-30 CAPSULE BY ity of hr capsule 00:00: MOUTH [place] DAILY [facility] TAMSULOSIN 2021-04 Yes [id number] .4mg TAKE 1 Univers 0.4 mg 24 1-30 CAPSULE BY ity of hr capsule 00:00: [facility] DAILY Medical Branch TAMSULOSIN 2021-04 Yes [id number] .4mg TAKE 1 Univers 0.4 mg 24 1-30 CAPSULE BY ity of hr capsule 00:00: [facility] DAILY Medical Branch TAMSULOSIN 2021-04- No [id number] .4mg TAKE 1 Univers 0.4 mg 24 1-30 03-08 CAPSULE BY ity of hr capsule 00:00: 00:00 MOUTH [place] 00 :00 DAILY Medical Branch LORATADINE 2021-04 Yes [id number] TAKE 1 U nivers 10 mg 1-23 TABLET BY ity of tablet 00:00: [facility] DAILY Medical Branch DOXAZOSIN 2 2021-04 Yes TAKE 1 Univ ers mg tablet 1-23 TABLET BY ity o f 00:00: [facility] EVERY Medical NIGHT AT [place] BEDTIME COLCHICINE 2021-04 Yes [id number] TAKE 1 Univers 0.6 mg 1-23 TABLET BY ity of tablet 00:00: [facility] DAILY [facility] Branch LORATADINE 2021-04 Yes [id number] TAKE 1 U nivers 10 mg 1-23 TABLET BY ity of tablet 00:00: [facility] DAILY Medical Branch DOXAZOSIN 2 2021-04 Yes TAKE 1 Univ ers mg tablet 1-23 TABLET BY ity o f 00:00: [facility] EVERY Medical NIGHT AT Branch BEDTIME COLCHICINE 2021-04 Yes [id number] TAKE 1 Univers 0.6 mg 1-23 TABLET BY ity of tablet 00:00: MOUTH [place] DAILY [facility] Branch LORATADINE 2021-04 Yes [id number] TAKE 1 U nivers 10 mg 1-23 TABLET BY ity of tablet 00:00: MOUTH [place] DAILY [facility] Branch DOXAZOSIN 2 2021-04 Yes TAKE 1 Univ ers mg tablet 1-23 TABLET BY ity o f 00:00: MOUTH [place] EVERY Medical NIGHT AT Branch BEDTIME COLCHICINE 2021-04 Yes [id number] TAKE 1 Univers 0.6 mg 1-23 TABLET BY ity of tablet 00:00: MOUTH [place] DAILY [facility] Branch LORATADINE 2021-04 Yes [id number] TAKE 1 U nivers 10 mg 1-23 TABLET BY ity of tablet 00:00: MOUTH [place] DAILY [facility] Branch DOXAZOSIN 2 2021-04 Yes TAKE 1 Univ ers mg tablet 1-23 TABLET BY ity o f 00:00: MOUTH [place] EVERY Medical NIGHT AT Branch BEDTIME COLCHICINE 2021-04 Yes [id number] TAKE 1 Univers 0.6 mg 1-23 TABLET BY ity of tablet 00:00: MOUTH [place] DAILY [facility] Branch LORATADINE 2021-04 Yes [id number] TAKE 1 U nivers 10 mg 1-23 TABLET BY ity of tablet 00:00: MOUTH [place] DAILY [facility] DOXAZOSIN 2 2021-04 Yes TAKE 1 Univ ers mg tablet 1-23 TABLET BY ity o f 00:00: MOUTH [place] EVERY Medical NIGHT AT Branch BEDTIME COLCHICINE 2021-04 Yes [id number] TAKE 1 Univers 0.6 mg 1-23 TABLET BY ity of tablet 00:00: MOUTH [place] DAILY [facility] Branch LORATADINE 2021-04 Yes [id number] TAKE 1 U nivers 10 mg 1-23 TABLET BY ity of tablet 00:00: MOUTH [place] DAILY [facility] DOXAZOSIN 2 2021-04 Yes TAKE 1 Univ ers mg tablet 1-23 TABLET BY ity o f 00:00: MOUTH [place] EVERY Medical NIGHT AT Branch BEDTIME COLCHICINE 2021-04 Yes [id number] TAKE 1 Univers 0.6 mg 1-23 TABLET BY ity of tablet 00:00: MOUTH [place] DAILY [facility] Branch LORATADINE 2021-04 Yes [id number] TAKE 1 U nivers 10 mg 1-23 TABLET BY ity of tablet 00:00: MOUTH [place] 00 DAILY Medical Branch DOXAZOSIN 2 2021-04 Yes TAKE 1 Univ ers mg tablet - TABLET BY ity o f 00:00: MOUTH [place] EVERY Medical NIGHT AT [place] BEDTIME COLCHICINE 2021-04 Yes [id number] TAKE 1 Univers 0.6 mg - TABLET BY ity of tablet 00:00: MOUTH [place] DAILY [facility] Branch LORATADINE 2021-04- No [id number] TAKE 1 Univers 10 mg -04-25 TABLET BY ity of tablet 00:00: 00:00 [facility] 00 : DAILY Medical Branch DOXAZOSIN 2 2021-04- No TAKE 1 Uni vers mg tablet 05-21 TABLET BY ity of 00:00: 00:00 [facility] 00 : EVERY Medical NIGHT AT [place] BEDTIME COLCHICINE 2021-04- No [id number] TAKE 1 Univers 0.6 mg -04-25 TABLET BY ity of tablet 00:00: 00:00 [facility] 00 :00 DAILY [facility] 2021-04 Yes Sofía s ne 0.5 % 1-21 ity of ointment 00:00: [place] [facility] clobetasoL 2021-04 Yes Univers 0.05 % 1-21 ity of external 00:00: [facility] 2021-04 Yes Sofía s ne 0.5 % 1-21 ity of ointment 00:00: [place] [facility] clobetasoL 2021-04 Yes Univers 0.05 % 1-21 ity of external 00:00: [facility] 2021-04 Yes Sofía s ne 0.5 % 1-21 ity of ointment 00:00: [place] [facility] clobetasoL 2021-04 Yes Univers 0.05 % 1-21 ity of external 00:00: [facility] 2021-04 Yes Katherineer s ne 0.5 % 1-21 ity of ointment 00:00: [place] [facility] clobetasoL 2021-04 Yes Univers 0.05 % 1-21 ity of external 00:00: [facility] 2021-04 Yes Katherineer s ne 0.5 % 1-21 ity of ointment 00:00: [place] 00 [facility] Branch clobetasoL 2021-04 Yes Univers 0.05 % 1-21 ity of external 00:00: [place] solution 00 [facility] 2021-04 Yes Univer s ne 0.5 % 1-21 ity of ointment 00:00: [place] 00 [facility] Branch clobetasoL 2021-04 Yes Univers 0.05 % 1-21 ity of external 00:00: [place] solution [address] [facility] 2021-04 Yes Univer s ne 0.5 % 1-21 ity of ointment 00:00: [place] 00 [facility] clobetasoL 2021-04 Yes Univers 0.05 % 1-21 ity of external 00:00: [place] [facility] 2021-04 Yes Univer s ne 0.5 % 1-21 ity of ointment 00:00: [place] 00 [facility] clobetasoL 2021-04 Yes Univers 0.05 % 1-21 ity of external 00:00: [place] solution [facility] 2021-04 Yes Univer s ne 0.5 % 1-21 ity of ointment 00:00: [place] 00 [facility] clobetasoL 2021-04 Yes Univers 0.05 % 1-21 ity of external 00:00: [place] solution [facility] 2021-04 Yes Univer s ne 0.5 % 1-21 ity of ointment 00:00: [place] 00 [facility] clobetasoL 2021-04 Yes Univers 0.05 % 1-21 ity of external 00:00: [place] solution [address] [facility] 2021-04 Yes Univer s ne 0.5 % 1-21 ity of ointment 00:00: [place] 00 [facility] clobetasoL 2021-04 Yes Univers 0.05 % 1-21 ity of external 00:00: [place] solution [address] [facility] 2021-04 Yes Univer s ne 0.5 % 1-21 ity of ointment 00:00: [place] 00 [facility] clobetasoL 2021-04 Yes Univers 0.05 % 1-21 ity of external 00:00: [place] solution [facility] 2021-04 Yes Univer s ne 0.5 % 1-21 ity of ointment 00:00: [place] 00 [facility] Yes Univers 0.05 % 1-21 ity of external 00:00: [place] solution [facility] 2021-04 Yes Univer s ne 0.5 % 1-21 ity of ointment 00:00: [place] [facility] Yes Univers 0.05 % 1-21 ity of external 00:00: [place] solution [facility] 2021-04 Yes Univer s ne 0.5 % 1-21 ity of ointment 00:00: [place] [facility] 2021-04 Yes Univers 0.05 % 1-21 ity of external 00:00: [place] solution [facility] 2021-04 Yes Univer s ne 0.5 % 1-21 ity of ointment 00:00: [place] [facility] 2021-04 Yes Univers 0.05 % 1-21 ity of external 00:00: [place] solution [facility] 2021-04 Yes Univer s ne 0.5 % 1-21 ity of ointment 00:00: [place] [facility] 2021-04 Yes Univers 0.05 % 1-21 ity of external 00:00: [place] solution [facility] 2021-04 Yes Univer s ne 0.5 % 1-21 ity of ointment 00:00: [place] [facility] 2021-04 Yes Univers 0.05 % 1-21 ity of external 00:00: [place] solution [facility] 2021-04 Yes Univer s ne 0.5 % 1-21 ity of ointment 00:00: [place] 00 Medical [facility] 2021-04 Yes Univers 0.05 % 1-21 ity of external 00:00: [place] solution [facility] 2021-04 Yes Univer s ne 0.5 % 1-21 ity of ointment 00:00: [place] [facility] 2021-04 Yes Univers 0.05 % 1-21 ity of external 00:00: [place] solution [facility] 2021-04 Yes Univer s ne 0.5 % 1-21 ity of ointment 00:00: [place] 00 [facility] Branch [facility] 2021-04 Yes Univers 0.05 % 1-21 ity of external 00:00: [place] solution [facility] 2021-04 Yes Univer s ne 0.5 % 1-21 ity of ointment 00:00: [place] [facility] 2021-04 Yes Univers 0.05 % 1-21 ity of external 00:00: [place] solution [facility] 2021-04 Yes Univer s ne 0.5 % 1-21 ity of ointment 00:00: [place] [facility] 2021-04 Yes Univers 0.05 % 1-21 ity of external 00:00: [place] solution [facility] 2021-04 Yes Univer s ne 0.5 % 1-21 ity of ointment 00:00: [place] [facility] 2021-04 Yes Univers 0.05 % 1-21 ity of external 00:00: [place] solution [facility] 2021-04 Yes Univer s ne 0.5 % 1-21 ity of ointment 00:00: [place] [facility] 2021-04 Yes Univers 0.05 % 1-21 ity of external 00:00: [place] solution [facility] 2021-04 Yes Univer s ne 0.5 % 1-21 ity of ointment 00:00: [place] 00 Medical [facility] 2021-04 Yes Univers 0.05 % 1-21 ity of external 00:00: [place] solution [facility] 2021-04 Yes Univer s ne 0.5 % 1-21 ity of ointment 00:00: [place] [facility] 2021-04 Yes Univers 0.05 % 1-21 ity of external 00:00: [place] solution [facility] 2021-04 Yes Univer s ne 0.5 % 1-21 ity of ointment 00:00: [place] [facility] 2021-04 Yes Univers 0.05 % 1-21 ity of external 00:00: [place] solution 00 [facility] 2021-04 Yes Univer s ne 0.5 % 1-21 ity of ointment 00:00: [place] 00 [facility] clobetasoL 2021-04 Yes Univers 0.05 % 1-21 ity of external 00:00: [place] solution [address] [facility] 2021-04 Yes Univer s ne 0.5 % 1-21 ity of ointment 00:00: [place] 00 [facility] Univers 0.05 % 1-21 ity of external 00:00: [place] solution 00 [facility] 2021-04 Yes Univer s ne 0.5 % 1-21 ity of ointment 00:00: [place] 00 [facility] Yes Univers 0.05 % 1-21 ity of external 00:00: [place] [facility] 2021-04 Yes Univer s ne 0.5 % 1-21 ity of ointment 00:00: [place] 00 [facility]04 Yes Univers 0.05 % 1-21 ity of external 00:00: [place] solution [facility] 2021-04 Yes Univer s ne 0.5 % 1-21 ity of ointment 00:00: [place] 00 [facility] Branch [facility] 2021-04 Yes Univers 0.05 % 1-21 ity of external 00:00: [place] solution [facility] 2021-04 Yes Univer s ne 0.5 % 1-21 ity of ointment 00:00: [place] 00 [facility] Yes Univers 0.05 % 1-21 ity of external 00:00: [place] solution [address] [facility] 2021-04 Yes Univer s ne 0.5 % 1-21 ity of ointment 00:00: [place] 00 [facility] 2021-04 Yes Univers 0.05 % 1-21 ity of external 00:00: [place] solution [address] [facility] 2021-04 Yes Univer s ne 0.5 % 1-21 ity of ointment 00:00: [place] 00 [facility] clobetasoL 2021-04 Yes Univers 0.05 % 1-21 ity of external 00:00: [place] solution 00 [facility] 2021-04 Yes Univer s ne 0.5 % 1-21 ity of ointment 00:00: [place] 00 [facility] clobetasoL 2021-04 Yes Univers 0.05 % 1-21 ity of external 00:00: [place] solution [facility] 2021-04 Yes Univer s ne 0.5 % 1-21 ity of ointment 00:00: [place] 00 [facility] clobetasoL 2021-04 Yes Univers 0.05 % 1-21 ity of external 00:00: [place] solution 00 [facility] 2021-04 Yes Univer s ne 0.5 % 1-21 ity of ointment 00:00: [place] 00 [facility] clobetasoL 2021-04 Yes Univers 0.05 % 1-21 ity of external 00:00: [place] [facility] 2021-04 Yes Univer s ne 0.5 % 1-21 ity of ointment 00:00: [place] 00 [facility] clobetasoL 2021-04 Yes Univers 0.05 % 1-21 ity of external 00:00: [place] [facility] 2021-04 Yes Univer s ne 0.5 % 1-21 ity of ointment 00:00: [place] 00 [facility] clobetasoL 2021-04 Yes Univers 0.05 % 1-21 ity of external 00:00: [place] solution [facility] 2021-04 Yes Univer s ne 0.5 % 1-21 ity of ointment 00:00: [place] 00 [facility] clobetasoL 2021-04 Yes Univers 0.05 % 1-21 ity of external 00:00: [place] solution [address] [facility] 2021-04 Yes Univer s ne 0.5 % 1-21 ity of ointment 00:00: [place] 00 [facility] clobetasoL 2021-04 Yes Univers 0.05 % 1-21 ity of external 00:00: [place] solution [address] [facility] 2021-04 Yes Univer s ne 0.5 % 1-21 ity of ointment 00:00: [place] 00 [facility] clobetasoL 2021-04 Yes Univers 0.05 % 1-21 ity of external 00:00: [place] solution 00 [facility] 2021-04 Yes Univer s ne 0.5 % 1-21 ity of ointment 00:00: [place] 00 [facility] clobetasoL 2021-04 Yes Univers 0.05 % 1-21 ity of external 00:00: [place] [facility] 2021-04 Yes Univer s ne 0.5 % 1-21 ity of ointment 00:00: [place] 00 [facility] clobetasoL 2021-04 Yes Univers 0.05 % 1-21 ity of external 00:00: [place] solution [facility] 2021-04 Yes Univer s ne 0.5 % 1-21 ity of ointment 00:00: [place] 00 [facility] clobetasoL 2021-04 Yes Univers 0.05 % 1-21 ity of external 00:00: [place] solution [facility] 2021-04 Yes Univer s ne 0.5 % 1-21 ity of ointment 00:00: [place] 00 [facility] clobetasoL 2021-04 Yes Univers 0.05 % 1-21 ity of external 00:00: [place] solution [facility] 2021-04 Yes Univer s ne 0.5 % 1-21 ity of ointment 00:00: [place] 00 [facility] clobetasoL 2021-04 Yes Univers 0.05 % 1-21 ity of external 00:00: [place] solution [facility] 2021-04 Yes Univer s ne 0.5 % 1-21 ity of ointment 00:00: [place] 00 [facility] clobetasoL 2021-04 Yes Univers 0.05 % 1-21 ity of external 00:00: [place] solution [facility] 2021-04 Yes Univer s ne 0.5 % 1-21 ity of ointment 00:00: [place] 00 [facility] clobetasoL 2021-04 Yes Univers 0.05 % 1-21 ity of external 00:00: [place] solution [facility] 2022-1 Yes Univer s ne 0.5 % 1-21 ity of ointment 00:00: [place] 00 [facility] clobetasoL 2021-04 Yes Univers 0.05 % 1-21 ity of external 00:00: [place] solution [facility] 2021-04 Yes Univer s ne 0.5 % 1-21 ity of ointment 00:00: [place] 00 [facility] clobetasoL 2021-04 Yes Univers 0.05 % 1-21 ity of external 00:00: [place] solution [facility] 2021-04 Yes Univer s ne 0.5 % 1-21 ity of ointment 00:00: [place] 00 [facility] clobetasoL 2021-04 Yes Univers 0.05 % 1-21 ity of external 00:00: [place] solution [facility] 2021-04 Yes Univer s ne 0.5 % 1-21 ity of ointment 00:00: [place] [facility] clobetasoL 2021-04 Yes Univers 0.05 % 1-21 ity of external 00:00: [place] solution [facility] 2021-04 Yes Univer s ne 0.5 % 1-21 ity of ointment 00:00: [place] 00 [facility] clobetasoL 2021-04 Yes Univers 0.05 % 1-21 ity of external 00:00: [place] solution [facility] 2021-04 Yes Univer s ne 0.5 % 1-21 ity of ointment 00:00: [place] 00 [facility] clobetasoL 2021-04 Yes Univers 0.05 % 1-21 ity of external 00:00: [place] solution [facility] 2021-04 Yes Univer s ne 0.5 % 1-21 ity of ointment 00:00: [place] 00 [facility] clobetasoL 2021-04 Yes Univers 0.05 % 1-21 ity of external 00:00: [place] solution [facility] 2021-04 Yes Univer s ne 0.5 % 1-21 ity of ointment 00:00: [place] 00 [facility] clobetasoL 2021-04 Yes Univers 0.05 % 1-21 ity of external 00:00: [place] solution [facility] 2021-04 Yes Univer s ne 0.5 % 1-21 ity of ointment 00:00: [place] [facility] 2021-04 Yes Univers 0.05 % 1-21 ity of external 00:00: [place] solution [facility] 2021-04 Yes Univer s ne 0.5 % 1-21 ity of ointment 00:00: Medical [facility] 2021-04 Yes Univers 0.05 % 1-21 ity of external 00:00: [place] solution [facility] 2021-04 Yes Univer s ne 0.5 % 1-21 ity of ointment 00:00: Medical [facility] 2021-04 Yes Univers 0.05 % 1-21 ity of external 00:00: [place] solution [facility] 2021-04 Yes Univer s ne 0.5 % 1-21 ity of ointment 00:00: [place] [facility] 2021-04 Yes Univers 0.05 % 1-21 ity of external 00:00: [place] solution [facility] 2021-04 Yes Univer s ne 0.5 % 1-21 ity of ointment 00:00: [place] [facility] 2021-04 Yes Univers 0.05 % 1-21 ity of external 00:00: [place] solution [facility] 2021-04 Yes Univer s ne 0.5 % 1-21 ity of ointment 00:00: [place] [facility] 2021-04 Yes Univers 0.05 % 1-21 ity of external 00:00: [place] solution [facility] 2021-04 Yes Univer s ne 0.5 % 1-21 ity of ointment 00:00: [place] [facility] 2021-04 Yes Univers 0.05 % 1-21 ity of external 00:00: [place] solution [facility] 2021-04 Yes Univer s ne 0.5 % 1-21 ity of ointment 00:00: [place] [facility] 2021-04 Yes Univers 0.05 % 1-21 ity of external 00:00: [place] solution 00 [facility] 2021-04 Yes Univer s ne 0.5 % 1-21 ity of ointment 00:00: [place] 00 [facility] clobetasoL 2021-04 Yes Univers 0.05 % 1-21 ity of external 00:00: [place] solution 00 [facility] 2021-04 Yes Univer s ne 0.5 % 1-21 ity of ointment 00:00: [place] 00 [facility] clobetasoL 2021-04 Yes Univers 0.05 % 1-21 ity of external 00:00: [place] solution 00 [facility] 2021-04 Yes Univer s ne 0.5 % 1-21 ity of ointment 00:00: [place] 00 [facility] clobetasoL 2021-04 Yes Univers 0.05 % 1-21 ity of external 00:00: [place] solution [facility] 2021-04 Yes Univer s ne 0.5 % 1-21 ity of ointment 00:00: [place] 00 [facility] Univers 0.05 % 1-21 ity of external 00:00: [place] solution [address] [facility] 2021-04 Yes Univer s ne 0.5 % 1-21 ity of ointment 00:00: [place] 00 [facility] Yes Univers 0.05 % 1-21 ity of external 00:00: [place] solution [address] [facility] 2021-04 Yes Univer s ne 0.5 % 1-21 ity of ointment 00:00: [place] 00 [facility] cl[facility]et[facility]oL 2021-04 Yes Univers 0.05 % 1-21 ity of external 00:00: [place] solution 00 [facility] 2021-04 Yes Univer s ne 0.5 % 1-21 ity of ointment 00:00: [place] 00 [facility] clobet[facility]oL 2021-04 Yes Univers 0.05 % 1-21 ity of external 00:00: [place] solution 00 [facility] 2021-04 Yes Univer s ne 0.5 % 1-21 ity of ointment 00:00: [place] 00 [facility] clobetasoL 2021-04 Yes Univers 0.05 % 1-21 ity of external 00:00: [place] solution 00 [facility] 2021-04 Yes Univer s ne 0.5 % 1-21 ity of ointment 00:00: [place] 00 [facility] clobet[facility]oL 2021-04 Yes Univers 0.05 % 1-21 ity of external 00:00: [place] solution [facility] 2021-04 Yes Univer s ne 0.5 % 1-21 ity of ointment 00:00: [place] 00 [facility] clobetasoL 2021-04 Yes Univers 0.05 % 1-21 ity of external 00:00: [place] solution 00 [facility] 2021-04 Yes Univer s ne 0.5 % 1-21 ity of ointment 00:00: [place] 00 [facility] clobetasoL 2021-04 Yes Univers 0.05 % 1-21 ity of external 00:00: [place] solution [facility] 2021-04 Yes Univer s ne 0.5 % 1-21 ity of ointment 00:00: [place] 00 [facility] clobetasoL 2021-04 Yes Univers 0.05 % 1-21 ity of external 00:00: [place] solution [facility] 2021-04 Yes Univer s ne 0.5 % 1-21 ity of ointment 00:00: [place] 00 [facility] clobetasoL 2021-04 Yes Univers 0.05 % 1-21 ity of external 00:00: [place] solution 00 [facility] 2021-04 Yes Univer s ne 0.5 % 1-21 ity of ointment 00:00: [place] 00 [facility] clobetasoL 2021-04 Yes Univers 0.05 % 1-21 ity of external 00:00: [place] solution 00 [facility] 2021-04 Yes Univer s ne 0.5 % 1-21 ity of ointment 00:00: [place] 00 [facility] clobetasoL 2021-04 Yes Univers 0.05 % 1-21 ity of external 00:00: [place] solution [facility] 2021-04 Yes Univer s ne 0.5 % 1-21 ity of ointment 00:00: [place] 00 [facility] clobetasoL 2021-04 Yes Univers 0.05 % 1-21 ity of external 00:00: [place] solution [address] [facility] 2021-04 Yes Univer s ne 0.5 % 1-21 ity of ointment 00:00: [place] 00 [facility] clobetasoL 2021-04 Yes Univers 0.05 % 1-21 ity of external 00:00: [place] solution [facility] 2021-04 Yes Univer s ne 0.5 % 1-21 ity of ointment 00:00: [place] 00 [facility] clobetasoL 2021-04 Yes Univers 0.05 % 1-21 ity of external 00:00: [place] solution [facility] 2021-04 Yes Univer s ne 0.5 % 1-21 ity of ointment 00:00: [place] 00 [facility] clobetasoL 2021-04 Yes Univers 0.05 % 1-21 ity of external 00:00: [place] solution [facility] 2021-04 Yes Univer s ne 0.5 % 1-21 ity of ointment 00:00: [place] 00 [facility] clobetasoL 2021-04 Yes Univers 0.05 % 1-21 ity of external 00:00: [place] solution [facility] 2021-04 Yes Univer s ne 0.5 % 1-21 ity of ointment 00:00: [place] 00 [facility] clobetasoL 2021-04 Yes Univers 0.05 % 1-21 ity of external 00:00: [place] solution [facility] 2021-04 Yes Univer s ne 0.5 % 1-21 ity of ointment 00:00: [place] 00 [facility] clobetasoL 2021-04 Yes Univers 0.05 % 1-21 ity of external 00:00: [place] solution [facility] 2021-04 Yes Univer s ne 0.5 % 1-21 ity of ointment 00:00: [place] 00 [facility] clobetasoL 2021-04 Yes Univers 0.05 % 1-21 ity of external 00:00: [place] solution [facility] 2021-04 Yes Univer s ne 0.5 % 1-21 ity of ointment 00:00: [place] 00 [facility] clobetasoL 2021-04 Yes Univers 0.05 % 1-21 ity of external 00:00: [place] solution 00 [facility] 2021-04 Yes Univer s ne 0.5 % 1-21 ity of ointment 00:00: [place] 00 [facility] clobetasoL 2021-04 Yes Univers 0.05 % 1-21 ity of external 00:00: [place] solution [facility] 2021-04 Yes Univer s ne 0.5 % 1-21 ity of ointment 00:00: [place] 00 [facility] clobetasoL 2021-04 Yes Univers 0.05 % 1-21 ity of external 00:00: [place] solution [facility] 2021-04 Yes Univer s ne 0.5 % 1-21 ity of ointment 00:00: [place] [facility] clobetasoL 2021-04 Yes Univers 0.05 % 1-21 ity of external 00:00: [place] solution [facility] 2021-04 Yes Univer s ne 0.5 % 1-21 ity of ointment 00:00: [place] [facility] Yes Univers 0.05 % 1-21 ity of external 00:00: [place] solution [facility] 2021-04 Yes Univer s ne 0.5 % 1-21 ity of ointment 00:00: [place] 00 [facility] clobetasoL 2021-04 Yes Univers 0.05 % 1-21 ity of external 00:00: [place] solution 00 [facility] 2021-04 Yes Univer s ne 0.5 % 1-21 ity of ointment 00:00: [place] 00 [facility] clobetasoL 2021-04 Yes Univers 0.05 % 1-21 ity of external 00:00: [place] solution [facility] 2021-04 Yes Univer s ne 0.5 % 1-21 ity of ointment 00:00: [place] 00 [facility] clobetasoL 2021-04 Yes Univers 0.05 % 1-21 ity of external 00:00: [place] solution [facility] 2021-04 Yes Univer s ne 0.5 % 1-21 ity of ointment 00:00: [place] 00 [facility] 2021-04 Yes Univers 0.05 % 1-21 ity of external 00:00: [place] solution [facility] 2021-04 Yes Univer s ne 0.5 % 1-21 ity of ointment 00:00: [place] [facility] 2021-04 Yes Univers 0.05 % 1-21 ity of external 00:00: [place] solution [facility] 2021-04 Yes Univer s ne 0.5 % 1-21 ity of ointment 00:00: [place] [facility] 2021-04 Yes Univers 0.05 % 1-21 ity of external 00:00: [place] solution [facility] 2021-04 Yes Univer s ne 0.5 % 1-21 ity of ointment 00:00: [place] [facility] 2021-04 Yes Univers 0.05 % 1-21 ity of external 00:00: [place] solution [facility] 2021-04 Yes Univer s ne 0.5 % 1-21 ity of ointment 00:00: [place] [facility] 2021-04 Yes Univers 0.05 % 1-21 ity of external 00:00: [place] solution [facility] 2021-04 Yes Univer s ne 0.5 % 1-21 ity of ointment 00:00: [place] [facility] 2021-04 Yes Univers 0.05 % 1-21 ity of external 00:00: [place] solution [facility] 2021-04 Yes Univer s ne 0.5 % 1-21 ity of ointment 00:00: [place] 00 [facility] 2021-04 Yes Univers 0.05 % 1-21 ity of external 00:00: [place] solution [facility] 2021-04 Yes Univer s ne 0.5 % 1-21 ity of ointment 00:00: [place] [facility] 2021-04 Yes Univers 0.05 % 1-21 ity of external 00:00: [place] solution [facility] 2021-04 Yes Univer s ne 0.5 % 1-21 ity of ointment 00:00: [place] 00 [facility] Yes Univers 0.05 % 1-21 ity of external 00:00: [place] solution [facility] 2021-04 Yes Univer s ne 0.5 % 1-21 ity of ointment 00:00: [place] 00 [facility] 2021-[facility] Yes Univers 0.05 % 1-21 ity of external 00:00: [place] solution [facility] 2021-04 Yes Univer s ne 0.5 % 1-21 ity of ointment 00:00: [place] [facility] Yes Univers 0.05 % 1-21 ity of external 00:00: [place] solution [facility] 2021-04 Yes Univer s ne 0.5 % 1-21 ity of ointment 00:00: [place] [facility] Yes Univers 0.05 % 1-21 ity of external 00:00: [place] solution [facility] 2021-04 Yes Univer s ne 0.5 % 1-21 ity of ointment 00:00: [place] [facility] 2021-04 Yes Univers 0.05 % 1-21 ity of external 00:00: [place] solution [facility] 2021-04 Yes Univer s ne 0.5 % 1-21 ity of ointment 00:00: [place] 00 [facility] Yes Univers 0.05 % 1-21 ity of external 00:00: [place] solution [facility] 2021-04 Yes Univer s ne 0.5 % 1-21 ity of ointment 00:00: [place] 00 [facility] Yes Univers 0.05 % 1-21 ity of external 00:00: [place] solution [facility] 2021-04 Yes Univer s ne 0.5 % 1-21 ity of ointment 00:00: [place] [facility] clobetasoL 2021-04 Yes Univers 0.05 % 1-21 ity of external 00:00: [place] solution 00 [facility] 2021-04 Yes Univer s ne 0.5 % 1-21 ity of ointment 00:00: [place] 00 [facility] clobetasoL 2021-04 Yes Univers 0.05 % 1-21 ity of external 00:00: [place] solution 00 [facility] 2021-04 Yes Univer s ne 0.5 % 1-21 ity of ointment 00:00: [place] 00 [facility] clobetasoL 2021-04 Yes Univers 0.05 % 1-21 ity of external 00:00: [place] solution 00 [facility] 2021-04 Yes Univer s ne 0.5 % 1-21 ity of ointment 00:00: [place] 00 [facility] clobetasoL 2021-04 Yes Univers 0.05 % 1-21 ity of external 00:00: [place] solution [address] [facility] 2021-04 Yes Univer s ne 0.5 % 1-21 ity of ointment 00:00: [place] 00 [facility] clobetasoL 2021-04 Yes Univers 0.05 % 1-21 ity of external 00:00: [place] solution [address] [facility] 2021-04 Yes Univer s ne 0.5 % 1-21 ity of ointment 00:00: [place] 00 [facility] clobetasoL 2021-04 Yes Univers 0.05 % 1-21 ity of external 00:00: [place] solution [address] [facility] 2021-04 Yes Univer s ne 0.5 % 1-21 ity of ointment 00:00: [place] 00 [facility] clobetasoL 2021-04 Yes Univers 0.05 % 1-21 ity of external 00:00: [place] solution [address] [facility] 2021-04 Yes Univer s ne 0.5 % 1-21 ity of ointment 00:00: [place] 00 [facility] clobetasoL 2021-04 Yes Univers 0.05 % 1-21 ity of external 00:00: [place] solution 00 [facility] 2021-04 Yes Univer s ne 0.5 % 1-21 ity of ointment 00:00: [place] 00 [facility] clobetasoL 2021-04 Yes Univers 0.05 % 1-21 ity of external 00:00: [place] solution 00 [facility] 2021-04 Yes Univer s ne 0.5 % 1-21 ity of ointment 00:00: [place] 00 [facility] clobetasoL 2021-04 Yes Univers 0.05 % 1-21 ity of external 00:00: [place] solution [facility] 2021-04 Yes Univer s ne 0.5 % 1-21 ity of ointment 00:00: [place] 00 [facility] clobetasoL 2021-04 Yes Univers 0.05 % 1-21 ity of external 00:00: [place] [facility] 2021-04 Yes Univer s ne 0.5 % 1-21 ity of ointment 00:00: [place] 00 [facility] clobetasoL 2021-04 Yes Univers 0.05 % 1-21 ity of external 00:00: [place] solution [facility] 2021-04 Yes Univer s ne 0.5 % 1-21 ity of ointment 00:00: [place] 00 [facility] clobetasoL 2021-04 Yes Univers 0.05 % 1-21 ity of external 00:00: [place] [facility] 2021-04 Yes Univer s ne 0.5 % 1-21 ity of ointment 00:00: [place] 00 [facility] clobetasoL 2021-04 Yes Univers 0.05 % 1-21 ity of external 00:00: [place] solution [facility] 2021-04 Yes Univer s ne 0.5 % 1-21 ity of ointment 00:00: [place] 00 [facility] clobetasoL 2021-04 Yes Univers 0.05 % 1-21 ity of external 00:00: [place] solution [facility] 2021-04 Yes Univer s ne 0.5 % 1-21 ity of ointment 00:00: [place] 00 [facility] clobetasoL 2021-04 Yes Univers 0.05 % 1-21 ity of external 00:00: [place] solution [facility] 2021-04 Yes Univer s ne 0.5 % 1-21 ity of ointment 00:00: [place] 00 [facility] clobetasoL 2021-04 Yes Univers 0.05 % 1-21 ity of external 00:00: [place] solution 00 [facility] triamcinolo 2021-04 Yes Univer s ne 0.5 % 1-21 ity of ointment 00:00: [place] 00 [facility] clobetasoL 2021-04 Yes Univers 0.05 % 1-21 ity of external 00:00: [place] solution 00 [facility] triamcinolo 2021-04 Yes Univer s ne 0.5 % 1-21 ity of ointment 00:00: [place] 00 [facility] clobetasoL 2021-04 Yes Univers 0.05 % 1-21 ity of external 00:00: [place] solution 00 [facility] clobetasoL 2021-04 Yes Apply to [facility] (TEMOVATE) 1-21 aa BID x [facility] % [facility]: 2-4 wks Medical external 00 for flares Cente r solution and then 2-3times/w k as maintenanc e triamcinolo 2021-04 Yes 1{appli Apply [address] [facility] ne 1-21 cation} applicatio [facility] (KENALOG) 00:00: n Medical 0.5 % 00 topically. [place] ointment clobetasoL 2021-04 Yes Apply to [facility] (TEMOVATE) 1-21 aa BID x [facility] 0.05 % 00:00: 2-4 wks Medical external 00 for flares Cente r solution and then 2-3times/w k as maintenanc e triamcinolo 2021-04 Yes 1{appli Apply [address] [facility] ne 1-21 cation} [facility]atio [facility] (KENALOG) 00:00: n Medical 0.5 % 00 topically. [facility] ointment clobetasoL 2021-04 Yes Apply to [facility] (TEMOVATE) 1-21 aa BID x [facility] 0.05 % 00:00: 2-4 wks Medical external 00 for flares Cente r solution and then 2-3times/w k as maintenanc e triamcinolo 2021-04 Yes 1{appli Apply [address] [facility] ne 1-21 cation} applicatio [facility] (KENALOG) 00:00: n Medical 0.5 % 00 topically. [place] ointment clobetasoL 2021-04 Yes Apply to [facility] (TEMOVATE) 1-21 aa BID x [facility] 0.05 % 00:00: 2-4 wks Medical external 00 for flares Cente r solution and then 2-3times/w k as maintenanc e triamcinolo 2021-04 Yes 1{appli Apply [address] [facility] ne 1-21 cation} applicatio [facility] (KENALOG) 00:00: n Medical 0.5 % 00 topically. [place] ointment clobetasoL 2021-04 Yes Apply to [facility] (TEMOVATE) 1-21 aa BID x [facility] 0.05 % 00:00: 2-4 wks Medical external 00 for flares Cente r solution and then 2-3times/w k as maintenanc e triamcinolo 2021-04 Yes 1{appli Apply [address] [facility] ne 1-21 cation} applicatio [facility] (KENALOG) 00:00: n Medical 0.5 % 00 topically. [place] ointment clobetasoL 2021-04 Yes Apply to [facility] (TEMOVATE) 1-21 aa BID x [facility] 0.05 % 00:00: 2-4 wks Medical external 00 for flares Cente r solution and then 2-3times/w k as maintenanc e triamcinolo 2021-04 Yes 1{appli Apply [address] [facility] ne 1-21 cation} applicatio [facility] (KENALOG) 00:00: n Medical 0.5 % 00 topically. [place] ointment METOPROLOL 2021-04 Yes [id number] TAKE 1 Univers TARTRATE 25 1-10 TABLET BY ity of mg tablet 00:00: MOUTH [place] 00 TWICE Medical DAILY Branch METOPROLOL 2021-04 Yes [id number] TAKE 1 Univers TARTRATE 25 1-10 TABLET BY ity of mg tablet 00:00: MOUTH [place] 00 TWICE Medical DAILY Branch METOPROLOL 2021-04 Yes [id number] TAKE 1 Univers TARTRATE 25 1-10 TABLET BY ity of mg tablet 00:00: MOUTH [place] 00 TWICE Medical DAILY Branch METOPROLOL 2021-04 Yes [id number] TAKE 1 Univers TARTRATE 25 1-10 TABLET BY ity of mg tablet 00:00: MOUTH TWICE Medical DAILY Branch METOPROLOL 2021-04 Yes [id number] TAKE 1 Univers TARTRATE 25 1-10 TABLET BY ity of mg tablet 00:00: MOUTH TWICE Medical DAILY Branch METOPROLOL 2021-04 Yes [id number] TAKE 1 Univers TARTRATE 25 1-10 TABLET BY ity of mg tablet 00:00: MOUTH TWICE Medical DAILY Branch METOPROLOL 2021-04 Yes [id number] TAKE 1 Univers TARTRATE 25 1-10 TABLET BY ity of mg tablet 00:00: MOUTH TWICE Medical DAILY Branch METOPROLOL 2021-04 Yes [id number] TAKE 1 Univers TARTRATE 25 1-10 TABLET BY ity of mg tablet 00:00: MOUTH TWICE Medical DAILY Branch METOPROLOL 2021-04 Yes [id number] TAKE 1 Univers TARTRATE 25 1-10 TABLET BY ity of mg tablet 00:00: MOUTH TWICE Medical DAILY Branch METOPROLOL 2021-04 Yes [id number] TAKE 1 Univers TARTRATE 25 1-10 TABLET BY ity of mg tablet 00:00: MOUTH TWICE Medical DAILY Branch METOPROLOL 2021-04 Yes [id number] TAKE 1 Univers TARTRATE 25 1-10 TABLET BY ity of mg tablet 00:00: MOUTH TWICE Medical DAILY Branch METOPROLOL 2021-04 Yes [id number] TAKE 1 Univers TARTRATE 25 1-10 TABLET BY ity of mg tablet 00:00: [facility] TWICE Medical DAILY Branch METOPROLOL 2021-04 Yes [id number] TAKE 1 Univers TARTRATE 25 1-10 TABLET BY ity of mg tablet 00:00: MOUTH TWICE Medical DAILY Branch METOPROLOL 2021-04 Yes [id number] TAKE 1 Univers TARTRATE 25 1-10 TABLET BY ity of mg tablet 00:00: MOUTH TWICE Medical DAILY Branch METOPROLOL 2021-04 Yes [id number] TAKE 1 Univers TARTRATE 25 1-10 TABLET BY ity of mg tablet 00:00: MOUTH TWICE Medical DAILY Branch METOPROLOL 2021-04 Yes [id number] TAKE 1 Univers TARTRATE 25 1-10 TABLET BY ity of mg tablet 00:00: MOUTH TWICE Medical DAILY Branch METOPROLOL 2021-04 Yes [id number] TAKE 1 Univers TARTRATE 25 1-10 TABLET BY ity of mg tablet 00:00: MOUTH TWICE Medical DAILY Branch METOPROLOL 2021-04 Yes [id number] TAKE 1 Univers TARTRATE 25 1-10 TABLET BY ity of mg tablet 00:00: MOUTH TWICE Medical DAILY Branch METOPROLOL 2021-04 Yes [id number] TAKE 1 Univers TARTRATE 25 1-10 TABLET BY ity of mg tablet 00:00: MOUTH TWICE Medical DAILY Branch METOPROLOL 2021-04 Yes [id number] TAKE 1 Univers TARTRATE 25 1-10 TABLET BY ity of mg tablet 00:00: MOUTH TWICE Medical DAILY Branch METOPROLOL 2021-04 Yes [id number] TAKE 1 Univers TARTRATE 25 1-10 TABLET BY ity of mg tablet 00:00: MOUTH TWICE Medical DAILY Branch METOPROLOL 2021-04 Yes [id number] TAKE 1 Univers TARTRATE 25 1-10 TABLET BY ity of mg tablet 00:00: MOUTH TWICE Medical DAILY Branch METOPROLOL 2021-04 Yes [id number] TAKE 1 Univers TARTRATE 25 1-10 TABLET BY ity of mg tablet 00:00: MOUTH TWICE Medical DAILY Branch METOPROLOL 2021-04 Yes [id number] TAKE 1 Univers TARTRATE 25 1-10 TABLET BY ity of mg tablet 00:00: MOUTH TWICE Medical DAILY Branch METOPROLOL 2021-04 Yes [id number] TAKE 1 Univers TARTRATE 25 1-10 TABLET BY ity of mg tablet 00:00: MOUTH [place] TWICE Medical DAILY Branch METOPROLOL 2021-04 Yes [id number] TAKE 1 Univers TARTRATE 25 1-10 TABLET BY ity of mg tablet 00:00: MOUTH [place] TWICE Medical DAILY Branch METOPROLOL 2021-04 Yes [id number] TAKE 1 Univers TARTRATE 25 1-10 TABLET BY ity of mg tablet 00:00: MOUTH [place] TWICE Medical DAILY Branch METOPROLOL 2021-04 Yes [id number] TAKE 1 Univers TARTRATE 25 1-10 TABLET BY ity of mg tablet 00:00: MOUTH [place] TWICE Medical DAILY Branch METOPROLOL 2021-04 Yes [id number] TAKE 1 Univers TARTRATE 25 1-10 TABLET BY ity of mg tablet 00:00: MOUTH [place] TWICE Medical DAILY Branch METOPROLOL 2021-04 Yes [id number] TAKE 1 Univers TARTRATE 25 1-10 TABLET BY ity of mg tablet 00:00: MOUTH [place] 00 TWICE Medical DAILY Branch METOPROLOL 2021-04 Yes [id number] TAKE 1 Univers TARTRATE 25 1-10 TABLET BY ity of mg tablet 00:00: MOUTH [place] TWICE Medical DAILY Branch METOPROLOL 2021-04 Yes [id number] TAKE 1 Univers TARTRATE 25 1-10 TABLET BY ity of mg tablet 00:00: MOUTH [place] TWICE Medical DAILY Branch METOPROLOL 2021-04 Yes [id number] TAKE 1 Univers TARTRATE 25 1-10 TABLET BY ity of mg tablet 00:00: MOUTH [place] 00 TWICE Medical DAILY Branch METOPROLOL 2021-04 Yes [id number] TAKE 1 Univers TARTRATE 25 1-10 TABLET BY ity of mg tablet 00:00: [facility] TWICE Medical DAILY Branch METOPROLOL 2021-04 Yes [id number] TAKE 1 Univers TARTRATE 25 1-10 TABLET BY ity of mg tablet 00:00: [facility] TWICE Medical DAILY Branch METOPROLOL 2021-04 Yes [id number] TAKE 1 Univers TARTRATE 25 1-10 TABLET BY ity of mg tablet 00:00: MOUTH [place] 00 TWICE Medical DAILY Branch METOPROLOL 2021-04 Yes [id number] TAKE 1 Univers TARTRATE 25 1-10 TABLET BY ity of mg tablet 00:00: [facility] TWICE Medical DAILY Branch METOPROLOL 2021-04 Yes [id number] TAKE 1 Univers TARTRATE 25 1-10 TABLET BY ity of mg tablet 00:00: [facility] TWICE Medical DAILY Branch METOPROLOL 2021-04 Yes [id number] TAKE 1 Univers TARTRATE 25 1-10 TABLET BY ity of mg tablet 00:00: MOUTH [place] 00 TWICE Medical DAILY Branch METOPROLOL 2021-04 Yes [id number] TAKE 1 Univers TARTRATE 25 1-10 TABLET BY ity of mg tablet 00:00: [facility] TWICE Medical DAILY Branch METOPROLOL 2021-04 Yes [id number] TAKE 1 Univers TARTRATE 25 1-10 TABLET BY ity of mg tablet 00:00: [facility] 00 TWICE Medical DAILY Branch METOPROLOL 2021-04 2023- No [id number] TAKE 1 Univers TARTRATE 25 1-10 02-15 TABLET BY it y of mg tablet 00:00: 00:00 MOUTH [place] 00 :00 TWICE Medical DAILY Branch DOXAZOSIN 2 2021-04 Yes 2mg TAKE 1 Univ ers mg tablet 0-24 TABLET BY ity o f 00:00: MOUTH AT [place] BEDTIME. Medical Branch CLARITIN 10 2021-04 Yes [id number] TAKE 1 Univers mg tablet 0-24 TABLET BY ity o f 00:00: MOUTH DAILY Medical Branch COLCHICINE 2021-04 Yes [id number] TAKE 1 Univers 0.6 mg 0-24 TABLET BY ity of tablet 00:00: MOUTH DAILY Medical Branch DOXAZOSIN 2 2021-04 Yes 2mg TAKE 1 Univ ers mg tablet 0-24 TABLET BY ity o f 00:00: MOUTH AT [place] BEDTIME. Medical Branch CLARITIN 10 2021-04 Yes [id number] TAKE 1 Univers mg tablet 0-24 TABLET BY ity o f 00:00: MOUTH DAILY Medical Branch COLCHICINE 2021-04 Yes [id number] TAKE 1 Univers 0.6 mg 0-24 TABLET BY ity of tablet 00:00: MOUTH DAILY Medical Branch DOXAZOSIN 2 2021-04 Yes 2mg TAKE 1 Univ ers mg tablet 0-24 TABLET BY ity o f 00:00: MOUTH AT [place] BEDTIME. [facility]04 Yes [id number] TAKE 1 Univers mg tablet 0-24 TABLET BY ity o f 00:00: MOUTH DAILY Medical Branch COLCHICINE 2021-04 Yes [id number] TAKE 1 Univers 0.6 mg 0-24 TABLET BY ity of tablet 00:00: MOUTH DAILY Medical Branch DOXAZOSIN 2 2021-04 Yes 2mg TAKE 1 Univ ers mg tablet 0-24 TABLET BY ity o f 00:00: MOUTH AT [place] BEDTIME. Medical Branch [facility] 10 2021-04 Yes [id number] TAKE 1 Univers mg tablet 0-24 TABLET BY ity o f 00:00: MOUTH DAILY Medical Branch COLCHICINE 2021-04 Yes [id number] TAKE 1 Univers 0.6 mg 0-24 TABLET BY ity of tablet 00:00: MOUTH DAILY Medical Branch DOXAZOSIN 2 2021-04 Yes 2mg TAKE 1 Univ ers mg tablet 0-24 TABLET BY ity o f 00:00: MOUTH AT [place] BEDTIME. Medical Branch [facility] 10 2021-04 Yes [id number] TAKE 1 Univers mg tablet 0-24 TABLET BY ity o f 00:00: MOUTH [place] DAILY Medical Branch COLCHICINE 2021-04 Yes [id number] TAKE 1 Univers 0.6 mg 0-24 TABLET BY ity of tablet 00:00: MOUTH [place] DAILY Medical Branch DOXAZOSIN 2 2021-04 Yes 2mg TAKE 1 Univ ers mg tablet 0-24 TABLET BY ity o f 00:00: MOUTH AT [place] 00 BEDTIME. Medical Branch [facility] 10 2021-04 Yes [id number] TAKE 1 Univers mg tablet 0-24 TABLET BY ity o f 00:00: MOUTH [place] DAILY Medical Branch COLCHICINE 2021-04 Yes [id number] TAKE 1 Univers 0.6 mg 0-24 TABLET BY ity of tablet 00:00: MOUTH [place] DAILY Medical Branch DOXAZOSIN 2 2021-04 Yes 2mg TAKE 1 Univ ers mg tablet 0-24 TABLET BY ity o f 00:00: MOUTH AT [place] 00 BEDTIME. Medical Branch [facility] 10 2021-04 Yes [id number] TAKE 1 Univers mg tablet 0-24 TABLET BY ity o f 00:00: MOUTH [place] DAILY Medical Branch COLCHICINE 2021-04 Yes [id number] TAKE 1 Univers 0.6 mg 0-24 TABLET BY ity of tablet 00:00: MOUTH [place] DAILY Medical Branch DOXAZOSIN 2 2021-04 Yes 2mg TAKE 1 Univ ers mg tablet 0-24 TABLET BY ity o f 00:00: MOUTH AT [place] 00 BEDTIME. Medical Branch [facility] 10 2021-04 Yes [id number] TAKE 1 Univers mg tablet 0-24 TABLET BY ity o f 00:00: MOUTH [place] DAILY Medical Branch COLCHICINE 2021-04 Yes [id number] TAKE 1 Univers 0.6 mg 0-24 TABLET BY ity of tablet 00:00: MOUTH [place] 00 DAILY Medical Branch DOXAZOSIN 2 2021-04- No 2mg TAKE 1 Uni vers mg tablet 0-24 11-23 TABLET BY ity of 00:00: 00:00 MOUTH AT [place] 00 :00 BEDTIME. Medical Branch [facility] 10 2021-04- No [id number] TAKE 1 Univers mg tablet 0-24 11-23 TABLET BY ity of 00:00: 00:00 MOUTH [place] 00 :00 DAILY Medical Branch COLCHICINE 2021-04- No [id number] TAKE 1 Univers 0.6 mg 0-24 11-23 TABLET BY ity of tablet 00:00: 00:00 MOUTH [place] 00 :00 DAILY Medical Branch metFORMIN 2021- Yes [id number] 500mg Take 1 U nivers 500 mg 0-19 tablet by ity of tablet 00:00: mouth in [place] [address] [facility] morning [place] and 1 tablet in the evening. metFORMIN 2021- Yes [id number] 500mg Take 1 U nivers 500 mg 0-19 tablet by ity of tablet 00:00: mouth in [place] [address] the Medical morning [place] and 1 tablet in the evening. metFORMIN 2021-04 Yes [id number] 500mg Take 1 U nivers 500 mg 0-19 tablet by ity of tablet 00:00: mouth in [place] [address] [facility] morning [place] and 1 tablet in the evening. metFORMIN 2021-04 Yes [id number] 500mg Take 1 U nivers 500 mg 0-19 tablet by ity of tablet 00:00: mouth in [address] morning [place] and 1 tablet in the evening. metFORMIN 2021- Yes [id number] 500mg Take 1 U nivers 500 mg 0-19 tablet by [facility] of tablet 00:00: mouth in [address] morning [place] and 1 tablet in the evening. metFORMIN 2021-04 Yes [id number] 500mg Take 1 U nivers 500 mg 0-19 tablet by [facility] of tablet 00:00: mouth in [address] morning [place] and 1 tablet in the evening. metFORMIN 2021-04 Yes [id number] 500mg Take 1 U nivers 500 mg 0-19 tablet by [facility] of tablet 00:00: mouth in [address] and 1 tablet in the evening. metFORMIN 2021- Yes [id number] 500mg Take 1 U nivers 500 mg 0-19 tablet by [facility] of tablet 00:00: mouth in [address] morning [place] and 1 tablet in the evening. metFORMIN 2021- Yes [id number] 500mg Take 1 U nivers 500 mg 0-19 tablet by [facility] of tablet 00:00: mouth in [address] morning [place] and 1 tablet in the evening. metFORMIN 2021- Yes [id number] 500mg Take 1 U nivers 500 mg 0-19 tablet by [facility] of tablet 00:00: mouth in [address] and 1 tablet in the evening. metFORMIN 2021- Yes [id number] 500mg Take 1 U nivers 500 mg 0-19 tablet by [facility] of tablet 00:00: mouth in [place] [address] the Medical morning Branch and 1 tablet in the evening. metFORMIN 2021- Yes [id number] 500mg Take 1 U nivers 500 mg 0-19 tablet by [facility] of tablet 00:00: mouth in [place] [address] the Medical morning Branch and 1 tablet in the evening. metFORMIN 2021-04 Yes [id number] 500mg Take 1 U nivers 500 mg 0-19 tablet by [facility] of tablet 00:00: mouth in [place] [address] the Medical morning Branch and 1 tablet in the evening. metFORMIN 2021- Yes [id number] 500mg Take 1 [facility] nivers 500 mg 0-19 tablet by [facility] of tablet 00:00: mouth in [place] [address] the Medical morning Branch and 1 tablet in the evening. metFORMIN 2021-04 Yes [id number] 500mg Take 1 U nivers 500 mg 0-19 tablet by [facility] of tablet 00:00: mouth in [place] [address] the Medical morning Branch and 1 tablet in the evening. metFORMIN 2021-04 Yes [id number] 500mg Take 1 U nivers 500 mg 0-19 tablet by [facility] of tablet 00:00: mouth in [place] [address] the Medical morning Branch and 1 tablet in the evening. metFORMIN 2021-04 Yes [id number] 500mg Take 1 U nivers 500 mg 0-19 tablet by [facility] of tablet 00:00: mouth in [place] [address] the Medical morning Branch and 1 tablet in the evening. metFORMIN 2021-04 Yes [id number] 500mg Take 1 U nivers 500 mg 0-19 tablet by [facility] of tablet 00:00: mouth in [place] [address] the Medical morning Branch and 1 tablet in the evening. metFORMIN 2021- Yes [id number] 500mg Take 1 [facility] nivers 500 mg 0-19 tablet by [facility] tablet 00:00: mouth in [place] [address] the Medical morning Branch and 1 tablet in the evening. metFORMIN 2021- Yes [id number] 500mg Take 1 [facility] nivers 500 mg 0-19 tablet by [facility] tablet 00:00: mouth in [place] [address] the Medical morning Branch and 1 tablet in the evening. metFORMIN 2021- Yes [id number] 500mg Take 1 [facility] nivers 500 mg 0-19 tablet by [facility] tablet 00:00: mouth in [place] [address] the Medical morning Branch and 1 tablet in the evening. metFORMIN 2021- Yes [id number] 500mg Take 1 [facility]ivers 500 mg 0-19 tablet by [facility] of tablet 00:00: mouth in [place] [address] the Medical morning Branch and 1 tablet in the evening. metFORMIN 2021- Yes [id number] 500mg Take 1 [facility]ivers 500 mg 0-19 tablet by [facility] of tablet 00:00: mouth in [place] [address] the Medical morning Branch and 1 tablet in the evening. metFORMIN 2021- Yes [id number] 500mg Take 1 [facility] nivers 500 mg 0-19 tablet by [facility] of tablet 00:00: mouth in [place] [address] the Medical morning Branch and 1 tablet in the evening. metFORMIN 2021- Yes [id number] 500mg Take 1 [facility] nivers 500 mg 0-19 tablet by [facility] of tablet 00:00: mouth in [place] [address] the Medical morning Branch and 1 tablet in the evening. metFORMIN 2021-04 Yes [id number] 500mg Take 1 [facility] nivers 500 mg 0-19 tablet by [facility] of tablet 00:00: mouth in [place] [address] the Medical morning Branch and 1 tablet in the evening. metFORMIN 2021-04 Yes [id number] 500mg Take 1 [facility] nivers 500 mg 0-19 tablet by [facility] of tablet 00:00: mouth in [place] [address] the Medical morning [place] and 1 tablet in the evening. metFORMIN 2021- Yes [id number] 500mg Take 1 [facility] nivers 500 mg 0-19 tablet by [facility] of tablet 00:00: mouth in [place] [address] the Medical morning Branch and 1 tablet in the evening. metFORMIN 2021- Yes [id number] 500mg Take 1 [facility] nivers 500 mg 0-19 tablet by [facility] of tablet 00:00: mouth in [place] [address] the Medical morning Branch and 1 tablet in the evening. metFORMIN 2021- Yes [id number] 500mg Take 1 [facility] nivers 500 mg 0-19 tablet by [facility] of tablet 00:00: mouth in [place] [address] the Medical morning [place] and 1 tablet in the evening. metFORMIN 2021- Yes [id number] 500mg Take 1 [facility] nivers 500 mg 0-19 tablet by [facility] of tablet 00:00: mouth in [place] [address] the Medical morning [place] and 1 tablet in the evening. metFORMIN 2021- Yes [id number] 500mg Take 1 U nivers 500 mg 0-19 tablet by [facility] of tablet 00:00: mouth in [place] [address] the Medical morning Branch and 1 tablet in the evening. metFORMIN 2021- Yes [id number] 500mg Take 1 [facility] nivers 500 mg 0-19 tablet by [facility] of tablet 00:00: mouth in [place] [address] the Medical morning Branch and 1 tablet in the evening. metFORMIN 2021- Yes [id number] 500mg Take 1 [facility] nivers 500 mg 0-19 tablet by [facility] of tablet 00:00: mouth in [place] [address] the Medical morning Branch and 1 tablet in the evening. metFORMIN 2021- Yes [id number] 500mg Take 1 [facility] nivers 500 mg 0-19 tablet by [facility] of tablet 00:00: mouth in [place] [address] the Medical morning Branch and 1 tablet in the evening. metFORMIN 2021- Yes [id number] 500mg Take 1 [facility] nivers 500 mg 0-19 tablet by [facility] of tablet 00:00: mouth in [place] [address] the Medical morning Branch and 1 tablet in the evening. metFORMIN 2021- Yes [id number] 500mg Take 1 [facility] nivers 500 mg 0-19 tablet by [facility] of tablet 00:00: mouth in [place] [address] the Medical morning Branch and 1 tablet in the evening. metFORMIN 2021- Yes [id number] 500mg Take 1 [facility] nivers 500 mg 0-19 tablet by [facility] of tablet 00:00: mouth in [place] [address] the Medical morning Branch and 1 tablet in the evening. metFORMIN 2021- Yes [id number] 500mg Take 1 [facility] nivers 500 mg 0-19 tablet by [facility] of tablet 00:00: mouth in [place] [address] the Medical morning Branch and 1 tablet in the evening. metFORMIN 2021- Yes [id number] 500mg Take 1 [facility] nivers 500 mg 0-19 tablet by [facility] of tablet 00:00: mouth in [place] [address] the Medical morning Branch and 1 tablet in the evening. metFORMIN 2021- Yes [id number] 500mg Take 1 [facility] nivers 500 mg 0-19 tablet by [facility] of tablet 00:00: mouth in [place] [address] the Medical morning Branch and 1 tablet in the evening. metFORMIN 2021-1 Yes [id number] 500mg Take 1 [facility] nivers 500 mg 0-19 tablet by [facility] of tablet 00:00: mouth in [place] [address] the Medical morning Branch and 1 tablet in the evening. metFORMIN 2021- Yes [id number] 500mg Take 1 U nivers 500 mg 0-19 tablet by [facility] of tablet 00:00: mouth in [place] [address] the Medical morning Branch and 1 tablet in the evening. metFORMIN 2021- Yes [id number] 500mg Take 1 [facility] nivers 500 mg 0-19 tablet by [facility] of tablet 00:00: mouth in [place] [address] the Medical morning [place] and 1 tablet in the evening. metFORMIN 2021- Yes [id number] 500mg Take 1 [facility] nivers 500 mg 0-19 tablet by [facility] of tablet 00:00: mouth in [place] [address] the Medical morning Branch and 1 tablet in the evening. metFORMIN 2021- Yes [id number] 500mg Take 1 U nivers 500 mg 0-19 tablet by [facility] of tablet 00:00: mouth in [place] [address] the Medical morning Branch and 1 tablet in the evening. metFORMIN 2021- Yes [id number] 500mg Take 1 U nivers 500 mg 0-19 tablet by [facility] of tablet 00:00: mouth in [place] [address] [facility] morning [place] and 1 tablet in the evening. metFORMIN 2021- Yes [id number] 500mg Take 1 U nivers 500 mg 0-19 tablet by it[facility] of tablet 00:00: mouth in [address] morning [place] and 1 tablet in the evening. metFORMIN 2021- Yes [id number] 500mg Take 1 U nivers 500 mg 0-19 tablet by it[facility] of tablet 00:00: mouth in [address] Medical morning [place] and 1 tablet in the evening. metFORMIN 2021- Yes [id number] 500mg Take 1 U nivers 500 mg 0-19 tablet by it[facility] of tablet 00:00: mouth in [address] morning [place] and 1 tablet in the evening. metFORMIN 2021- Yes [id number] 500mg Take 1 U nivers 500 mg 0-19 tablet by [facility] of tablet 00:00: mouth in [address] Medical morning [place] and 1 tablet in the evening. metFORMIN 2021- Yes [id number] 500mg Take 1 U nivers 500 mg 0-19 tablet by [facility] of tablet 00:00: mouth in [address] Medical morning [place] and 1 tablet in the evening. metFORMIN 2021-1 Yes [id number] 500mg Take 1 U nivers 500 mg 0-19 tablet by [facility] of tablet 00:00: mouth in [address] morning [place] and 1 tablet in the evening. metFORMIN 2021-1 Yes [id number] 500mg Take 1 U nivers 500 mg 0-19 tablet by [facility] of tablet 00:00: mouth in [place] [address] the Medical morning Branch and 1 tablet in the evening. metFORMIN 2021- Yes [id number] 500mg Take 1 U nivers 500 mg 0-19 tablet by [facility] of tablet 00:00: mouth in [place] [address] the Medical morning Branch and 1 tablet in the evening. metFORMIN 2021- Yes [id number] 500mg Take 1 U nivers 500 mg 0-19 tablet by [facility] of tablet 00:00: mouth in [place] [address] the Medical morning Branch and 1 tablet in the evening. metFORMIN 2021- Yes [id number] 500mg Take 1 U nivers 500 mg 0-19 tablet by [facility] of tablet 00:00: mouth in [place] [address] the Medical morning Branch and 1 tablet in the evening. metFORMIN 2021- Yes [id number] 500mg Take 1 U nivers 500 mg 0-19 tablet by [facility] of tablet 00:00: mouth in [place] [address] the Medical morning [place] and 1 tablet in the evening. metFORMIN 2021-04 Yes [id number] 500mg Take 1 U nivers 500 mg 0-19 tablet by [facility] of tablet 00:00: mouth in [place] [address] the Medical morning [place] and 1 tablet in the evening. metFORMIN 2021-04 Yes [id number] 500mg Take 1 U nivers 500 mg 0-19 tablet by [facility] of tablet 00:00: mouth in [place] [address] the Medical morning [place] and 1 tablet in the evening. metFORMIN 2021- Yes [id number] 500mg Take 1 U nivers 500 mg 0-19 tablet by it[facility] of tablet 00:00: mouth in [place] [address] the Medical morning [place] and 1 tablet in the evening. metFORMIN 2021- Yes [id number] 500mg Take 1 U nivers 500 mg 0-19 tablet by it[facility] of tablet 00:00: mouth in [place] [address] the Medical morning Branch and 1 tablet in the evening. metFORMIN 2021- Yes [id number] 500mg Take 1 U nivers 500 mg 0-19 tablet by it[facility] of tablet 00:00: mouth in [place] [address] the Medical morning Branch and 1 tablet in the evening. metFORMIN 2021-1 Yes [id number] 500mg Take 1 U nivers 500 mg 0-19 tablet by ity of tablet 00:00: mouth in [address] Medical morning [place] and 1 tablet in the evening. metFORMIN 2021-1 Yes [id number] 500mg Take 1 U nivers 500 mg 0-19 tablet by ity of tablet 00:00: mouth in [place] [address] the Medical morning Branch and 1 tablet in the evening. metFORMIN 2021- Yes [id number] 500mg Take 1 U nivers 500 mg 0-19 tablet by ity of tablet 00:00: mouth in [place] [address] the Medical morning Branch and 1 tablet in the evening. metFORMIN 2021- Yes [id number] 500mg Take 1 U nivers 500 mg 0-19 tablet by ity of tablet 00:00: mouth in [place] [address] the Medical morning Branch and 1 tablet in the evening. metFORMIN 2021- Yes [id number] 500mg Take 1 U nivers 500 mg 0-19 tablet by it[facility] of tablet 00:00: mouth in [place] [address] the Medical morning Branch and 1 tablet in the evening. metFORMIN 2021-04 Yes [id number] 500mg Take 1 U nivers 500 mg 0-19 tablet by it[facility] of tablet 00:00: mouth in [place] [address] the Medical morning Branch and 1 tablet in the evening. metFORMIN 2021-04 Yes [id number] 500mg Take 1 U nivers 500 mg 0-19 tablet by ity of tablet 00:00: mouth in [place] [address] the Medical morning Branch and 1 tablet in the evening. metFORMIN 2021-04 Yes [id number] 500mg Take 1 U nivers 500 mg 0-19 tablet by it[facility] of tablet 00:00: mouth in [place] [address] the Medical morning Branch and 1 tablet in the evening. metFORMIN 2021- Yes [id number] 500mg Take 1 U nivers 500 mg 0-19 tablet by ity of tablet 00:00: mouth in [place] [address] the Medical morning Branch and 1 tablet in the evening. metFORMIN 2021-04 Yes [id number] 500mg Take 1 U nivers 500 mg 0-19 tablet by it[facility] of tablet 00:00: mouth in [place] [address] the Medical morning Branch and 1 tablet in the evening. metFORMIN 2021- Yes [id number] 500mg Take 1 U nivers 500 mg 0-19 tablet by ity of tablet 00:00: mouth in [place] [address] the Medical morning [place] and 1 tablet in the evening. metFORMIN 2021- Yes [id number] 500mg Take 1 U nivers 500 mg 0-19 tablet by it[facility] of tablet 00:00: mouth in [address] Medical morning [place] and 1 tablet in the evening. metFORMIN 2021- Yes [id number] 500mg Take 1 U nivers 500 mg 0-19 tablet by it[facility] of tablet 00:00: mouth in [place] [address] the Medical morning Branch and 1 tablet in the evening. metFORMIN 2021- Yes [id number] 500mg Take 1 U nivers 500 mg 0-19 tablet by it[facility] of tablet 00:00: mouth in [place] [address] the Medical morning Branch and 1 tablet in the evening. metFORMIN 2021- Yes [id number] 500mg Take 1 U nivers 500 mg 0-19 tablet by it[facility] of tablet 00:00: mouth in [place] [address] the Medical morning Branch and 1 tablet in the evening. metFORMIN 2021- Yes [id number] 500mg Take 1 U nivers 500 mg 0-19 tablet by ity of tablet 00:00: mouth in [place] [address] the Medical morning Branch and 1 tablet in the evening. metFORMIN 2021- Yes [id number] 500mg Take 1 U nivers 500 mg 0-19 tablet by it[facility] of tablet 00:00: mouth in [place] [address] the Medical morning Branch and 1 tablet in the evening. metFORMIN 2021- Yes [id number] 500mg Take 1 U nivers 500 mg 0-19 tablet by ity of tablet 00:00: mouth in [place] [address] the Medical morning [place] and 1 tablet in the evening. metFORMIN 2021- Yes [id number] 500mg Take 1 U nivers 500 mg 0-19 tablet by ity of tablet 00:00: mouth in [place] [address] the Medical morning [place] and 1 tablet in the evening. metFORMIN 2021- Yes [id number] 500mg Take 1 U nivers 500 mg 0-19 tablet by ity of tablet 00:00: mouth in [place] [address] the Medical morning [place] and 1 tablet in the evening. metFORMIN 2021- Yes [id number] 500mg Take 1 U nivers 500 mg 0-19 tablet by it[facility] of tablet 00:00: mouth in [place] [address] the Medical morning Branch and 1 tablet in the evening. metFORMIN 2021-1 Yes [id number] 500mg Take 1 U nivers 500 mg 0-19 tablet by ity of tablet 00:00: mouth in [place] [address] the Medical morning [place] and 1 tablet in the evening. metFORMIN 2021-1 Yes [id number] 500mg Take 1 U nivers 500 mg 0-19 tablet by ity of tablet 00:00: mouth in [address] Medical morning [place] and 1 tablet in the evening. metFORMIN 2021-1 Yes [id number] 500mg Take 1 U nivers 500 mg 0-19 tablet by ity of tablet 00:00: mouth in [place] [address] the Medical morning Branch and 1 tablet in the evening. metFORMIN 2021- Yes [id number] 500mg Take 1 U nivers 500 mg 0-19 tablet by ity of tablet 00:00: mouth in [place] [address] the Medical morning Branch and 1 tablet in the evening. metFORMIN 2021- Yes [id number] 500mg Take 1 U nivers 500 mg 0-19 tablet by ity of tablet 00:00: mouth in [place] [address] the Medical morning Branch and 1 tablet in the evening. metFORMIN 2021-04 Yes [id number] 500mg Take 1 U nivers 500 mg 0-19 tablet by ity of tablet 00:00: mouth in [place] [address] the Medical morning Branch and 1 tablet in the evening. metFORMIN 2021-04 Yes [id number] 500mg Take 1 U nivers 500 mg 0-19 tablet by ity of tablet 00:00: mouth in [place] [address] the Medical morning Branch and 1 tablet in the evening. metFORMIN 2021-04 Yes [id number] 500mg Take 1 U nivers 500 mg 0-19 tablet by it[facility] of tablet 00:00: mouth in [place] [address] the Medical morning Branch and 1 tablet in the evening. metFORMIN 2021-04 Yes [id number] 500mg Take 1 U nivers 500 mg 0-19 tablet by ity of tablet 00:00: mouth in [place] [address] the Medical morning Branch and 1 tablet in the evening. metFORMIN 2021-04 Yes [id number] 500mg Take 1 U nivers 500 mg 0-19 tablet by ity of tablet 00:00: mouth in [place] [address] the Medical morning Branch and 1 tablet in the evening. metFORMIN 2021- Yes [id number] 500mg Take 1 U nivers 500 mg 0-19 tablet by ity of tablet 00:00: mouth in [place] [address] the Medical morning Branch and 1 tablet in the evening. metFORMIN 2021- Yes [id number] 500mg Take 1 U nivers 500 mg 0-19 tablet by ity of tablet 00:00: mouth in [place] [address] the Medical morning Branch and 1 tablet in the evening. metFORMIN 2021- Yes [id number] 500mg Take 1 U nivers 500 mg 0-19 tablet by ity of tablet 00:00: mouth in [place] [address] the Medical morning Branch and 1 tablet in the evening. metFORMIN 2021- Yes [id number] 500mg Take 1 U nivers 500 mg 0-19 tablet by ity of tablet 00:00: mouth in [place] [address] the Medical morning Branch and 1 tablet in the evening. metFORMIN 2021-1 Yes [id number] 500mg Take 1 U nivers 500 mg 0-19 tablet by ity of tablet 00:00: mouth in [place] [address] the Medical morning Branch and 1 tablet in the evening. metFORMIN 2021- Yes [id number] 500mg Take 1 U nivers 500 mg 0-19 tablet by ity of tablet 00:00: mouth in [place] [address] the Medical morning Branch and 1 tablet in the evening. metFORMIN 2021- Yes [id number] 500mg Take 1 U nivers 500 mg 0-19 tablet by ity of tablet 00:00: mouth in [place] [address] the Medical morning [place] and 1 tablet in the evening. metFORMIN 2021- Yes [id number] 500mg Take 1 U nivers 500 mg 0-19 tablet by ity of tablet 00:00: mouth in [place] [address] the Medical morning [place] and 1 tablet in the evening. metFORMIN 2021- Yes [id number] 500mg Take 1 U nivers 500 mg 0-19 tablet by ity of tablet 00:00: mouth in [place] [address] the Medical morning [place] and 1 tablet in the evening. metFORMIN 2021- Yes [id number] 500mg Take 1 U nivers 500 mg 0-19 tablet by ity of tablet 00:00: mouth in [place] [address] the Medical morning [place] and 1 tablet in the evening. metFORMIN 2021- Yes [id number] 500mg Take 1 U nivers 500 mg 0-19 tablet by ity of tablet 00:00: mouth in [place] [address] the Medical morning [place] and 1 tablet in the evening. metFORMIN 2021- Yes [id number] 500mg Take 1 U nivers 500 mg 0-19 tablet by ity of tablet 00:00: mouth in [place] [address] the Medical morning [place] and 1 tablet in the evening. metFORMIN 2021-1 Yes [id number] 500mg Take 1 U nivers 500 mg 0-19 tablet by ity of tablet 00:00: mouth in [address] Medical morning [place] and 1 tablet in the evening. metFORMIN 2021-1 Yes [id number] 500mg Take 1 U nivers 500 mg 0-19 tablet by ity of tablet 00:00: mouth in [address] Medical morning Branch and 1 tablet in the evening. metFORMIN 2021- Yes [id number] 500mg Take 1 U nivers 500 mg 0-19 tablet by ity of tablet 00:00: mouth in [place] 00 the Medical morning Branch and 1 tablet in the evening. metFORMIN 2021- Yes [id number] 500mg Take 1 U nivers 500 mg 0-19 tablet by ity of tablet 00:00: mouth in [place] 00 the Medical morning Branch and 1 tablet in the evening. metFORMIN 2021- Yes [id number] 500mg Take 1 U nivers 500 mg 0-19 tablet by ity of tablet 00:00: mouth in [place] 00 the Medical morning Branch and 1 tablet in the evening. metFORMIN 2021-04 Yes [id number] 500mg Take 1 U nivers 500 mg 0-19 tablet by ity of tablet 00:00: mouth in [place] [address] the Medical morning Branch and 1 tablet in the evening. metFORMIN 2021-04 Yes [id number] 500mg Take 1 U nivers 500 mg 0-19 tablet by ity of tablet 00:00: mouth in [place] [address] the Medical morning Branch and 1 tablet in the evening. metFORMIN 2021-04 Yes [id number] 500mg Take 1 U nivers 500 mg 0-19 tablet by ity of tablet 00:00: mouth in [place] [address] the Medical morning Branch and 1 tablet in the evening. metFORMIN 2021- Yes [id number] 500mg Take 1 U nivers 500 mg 0-19 tablet by ity of tablet 00:00: mouth in [place] [address] the Medical morning Branch and 1 tablet in the evening. metFORMIN 2021-04 Yes [id number] 500mg Take 1 U nivers 500 mg 0-19 tablet by ity of tablet 00:00: mouth in [place] [address] the Medical morning Branch and 1 tablet in the evening. metFORMIN 2021-04 Yes [id number] 500mg Take 1 U nivers 500 mg 0-19 tablet by ity of tablet 00:00: mouth in [place] [address] the Medical morning Branch and 1 tablet in the evening. metFORMIN 2021- Yes [id number] 500mg Take 1 U nivers 500 mg 0-19 tablet by ity of tablet 00:00: mouth in [place] [address] the Medical morning Branch and 1 tablet in the evening. metFORMIN 2021- Yes [id number] 500mg Take 1 U nivers 500 mg 0-19 tablet by ity of tablet 00:00: mouth in [place] [address] the Medical morning Branch and 1 tablet in the evening. metFORMIN 2021- Yes [id number] 500mg Take 1 U nivers 500 mg 0-19 tablet by ity of tablet 00:00: mouth in [place] [address] the Medical morning Branch and 1 tablet in the evening. metFORMIN 2021- Yes [id number] 500mg Take 1 U nivers 500 mg 0-19 tablet by ity of tablet 00:00: mouth in [place] [address] the Medical morning Branch and 1 tablet in the evening. metFORMIN 2021- Yes [id number] 500mg Take 1 U nivers 500 mg 0-19 tablet by ity of tablet 00:00: mouth in [place] [address] the Medical morning Branch and 1 tablet in the evening. metFORMIN 2021- Yes [id number] 500mg Take 1 U nivers 500 mg 0-19 tablet by it[facility] of tablet 00:00: mouth in [place] [address] the Medical morning Branch and 1 tablet in the evening. metFORMIN 2021- Yes [id number] 500mg Take 1 U nivers 500 mg 0-19 tablet by ity of tablet 00:00: mouth in [place] [address] the Medical morning [place] and 1 tablet in the evening. metFORMIN 2021-04 Yes [id number] 500mg Take 1 U nivers 500 mg 0-19 tablet by ity of tablet 00:00: mouth in [place] [address] the Medical morning [place] and 1 tablet in the evening. metFORMIN 2021- Yes [id number] 500mg Take 1 U nivers 500 mg 0-19 tablet by ity of tablet 00:00: mouth in [place] [address] [address] [facility] morning [place] and 1 tablet in the evening. metFORMIN 2021- Yes [id number] 500mg Take 1 U nivers 500 mg 0-19 tablet by ity of tablet 00:00: mouth in [place] [address] the Medical morning [place] and 1 tablet in the evening. metFORMIN 2021- Yes [id number] 500mg Take 1 U nivers 500 mg 0-19 tablet by ity of tablet 00:00: mouth in [place] [address] the Medical morning [place] and 1 tablet in the evening. metFORMIN 2021-1 Yes [id number] 500mg Take 1 U nivers 500 mg 0-19 tablet by ity of tablet 00:00: mouth in [place] [address] [facility] morning [place] and 1 tablet in the evening. metFORMIN 2021- Yes [id number] 500mg Take 1 U nivers 500 mg 0-19 tablet by ity of tablet 00:00: mouth in [place] [address] the Medical morning Branch and 1 tablet in the evening. metFORMIN 2021- Yes [id number] 500mg Take 1 U nivers 500 mg 0-19 tablet by ity of tablet 00:00: mouth in [place] [address] the Medical morning [place] and 1 tablet in the evening. metFORMIN 2021-1 Yes [id number] 500mg Take 1 U nivers 500 mg 0-19 tablet by ity of tablet 00:00: mouth in [place] [address] the Medical morning Branch and 1 tablet in the evening. metFORMIN 2021- Yes [id number] 500mg Take 1 U nivers 500 mg 0-19 tablet by ity of tablet 00:00: mouth in [place] [address] the Medical morning Branch and 1 tablet in the evening. metFORMIN 2021- Yes [id number] 500mg Take 1 U nivers 500 mg 0-19 tablet by ity of tablet 00:00: mouth in [place] [address] the Medical morning [place] and 1 tablet in the evening. metFORMIN 2021- Yes [id number] 500mg Take 1 U nivers 500 mg 0-19 tablet by ity of tablet 00:00: mouth in [address] Medical morning [place] and 1 tablet in the evening. metFORMIN 2021- Yes [id number] 500mg Take 1 U nivers 500 mg 0-19 tablet by ity of tablet 00:00: mouth in [address] Medical morning [place] and 1 tablet in the evening. metFORMIN 2021-1 Yes [id number] 500mg Take 1 U nivers 500 mg 0-19 tablet by ity of tablet 00:00: mouth in [address] morning [place] and 1 tablet in the evening. metFORMIN 2021-1 Yes [id number] 500mg Take 1 U nivers 500 mg 0-19 tablet by ity of tablet 00:00: mouth in [address] Medical morning [place] and 1 tablet in the evening. metFORMIN 2021-1 Yes [id number] 500mg Take 1 U nivers 500 mg 0-19 tablet by ity of tablet 00:00: mouth in [address] Medical morning [place] and 1 tablet in the evening. metFORMIN 2021-1 Yes [id number] 500mg Take 1 U nivers 500 mg 0-19 tablet by ity of tablet 00:00: mouth in [address] morning [place] and 1 tablet in the evening. metFORMIN 2021-1 Yes [id number] 500mg Take 1 U nivers 500 mg 0-19 tablet by ity of tablet 00:00: mouth in [place] [address] the [facility] morning [facility] and 1 tablet in the evening. metFORMIN 2021-04 Yes [id number] 500mg Take 1 [facility] 500 mg 0-19 tablet by ity of tablet 00:00: mouth in [place] [address] the Medical morning Branch and 1 tablet in the evening. metFORMIN 2021-04 Yes [id number] 500mg Take 1 [facility] 500 mg 0-19 tablet by ity of tablet 00:00: mouth in [place] [address] the Medical morning Branch and 1 tablet in the evening. metFORMIN 2021-04 Yes [id number] 500mg Take 1 [facility] 500 mg 0-19 tablet by [facility]y of tablet 00:00: mouth in [place] [address] the Medical morning Branch and 1 tablet in the evening. metFORMIN 2021-04 Yes [id number] 500mg Take 1 [facility] 500 mg 0-19 tablet by ity of tablet 00:00: mouth in [place] [address] the Medical morning Branch and 1 tablet in the evening. OMEGA-3 2021-04 Yes [id number] TAKE 4 [facility] FATTY ACIDS 0-17 CAPSULES ity of capsule 00:00: BY MOUTH [place] [facility] OMEGA-3 2021-04 Yes [id number] TAKE 4 [facility] FATTY ACIDS 0-17 CAPSULES ity of capsule 00:00: BY MOUTH [place] [facility] OMEGA-3 2021-04 Yes [id number] TAKE 4 [facility] FATTY ACIDS 0-17 CAPSULES ity of capsule 00:00: BY MOUTH [place] [facility] OMEGA-3 2021-04 Yes [id number] TAKE 4 [facility] FATTY ACIDS 0-17 CAPSULES ity of capsule 00:00: BY MOUTH [place] [facility] OMEGA-3 2021-04 Yes [id number] TAKE 4 [facility] FATTY ACIDS 0-17 CAPSULES ity of capsule 00:00: BY MOUTH [place] [facility] OMEGA-3 2021-04 Yes [id number] TAKE 4 [facility] FATTY ACIDS 0-17 CAPSULES ity of capsule 00:00: BY MOUTH [place] [facility] OMEGA-3 2021-04 Yes [id number] TAKE 4 [facility] FATTY ACIDS 0-17 CAPSULES ity of capsule 00:00: BY MOUTH [place] [facility] OMEGA-3 2021-04 Yes [id number] TAKE 4 [facility] FATTY ACIDS 0-17 CAPSULES ity of capsule 00:00: BY MOUTH [place] [facility] OMEGA-3 2021-04 Yes [id number] TAKE 4 [facility] FATTY ACIDS 0-17 CAPSULES ity of capsule 00:00: BY MOUTH [place] [facility] OMEGA-3 2021-04 Yes [id number] TAKE 4 [facility] FATTY ACIDS 0-17 CAPSULES ity of capsule 00:00: BY MOUTH [place] [facility] OMEGA-3 2021-04 Yes [id number] TAKE 4 [facility] FATTY ACIDS 0-17 CAPSULES ity of capsule 00:00: BY MOUTH [place] [facility] OMEGA-3 2021-04 Yes [id number] TAKE 4 [facility] FATTY ACIDS 0-17 CAPSULES ity of capsule 00:00: BY MOUTH [place] [facility] OMEGA-3 2021-04 Yes [id number] TAKE 4 [facility] FATTY ACIDS 0-17 CAPSULES ity of capsule 00:00: BY MOUTH [place] [facility] OMEGA-3 2021-04 Yes [id number] TAKE 4 [facility] FATTY ACIDS 0-17 CAPSULES ity of capsule 00:00: BY MOUTH [place] [facility] OMEGA-3 2021-04 Yes [id number] TAKE 4 [facility] FATTY ACIDS 0-17 CAPSULES ity of capsule 00:00: BY MOUTH [place] [facility] OMEGA-3 2021-04 Yes [id number] TAKE 4 [facility] FATTY ACIDS 0-17 CAPSULES ity of capsule 00:00: BY MOUTH [place] [facility] OMEGA-3 2021-04 Yes [id number] TAKE 4 [facility] FATTY ACIDS 0-17 CAPSULES ity of capsule 00:00: BY MOUTH [place] [facility] OMEGA-3 2021-04 Yes [id number] TAKE 4 [facility] FATTY ACIDS 0-17 CAPSULES ity of capsule 00:00: BY MOUTH [place] [facility] OMEGA-3 2021-04 Yes [id number] TAKE 4 [facility] FATTY ACIDS 0-17 CAPSULES ity of capsule 00:00: BY MOUTH [place] [facility] OMEGA-3 2021-04 Yes [id number] TAKE 4 [facility] FATTY ACIDS 0-17 CAPSULES ity of capsule 00:00: BY MOUTH [place] [facility] OMEGA-3 2021-04 Yes [id number] TAKE 4 [facility] FATTY ACIDS 0-17 CAPSULES ity of capsule 00:00: BY MOUTH [place] [facility] OMEGA-3 2021-04 Yes [id number] TAKE 4 [facility] FATTY ACIDS 0-17 CAPSULES ity of capsule 00:00: BY MOUTH [place] [facility] OMEGA-3 2021-04 Yes [id number] TAKE 4 [facility] FATTY ACIDS 0-17 CAPSULES ity of capsule 00:00: BY MOUTH [place] [facility] OMEGA-3 2021-04 Yes [id number] TAKE 4 [facility] FATTY ACIDS 0-17 CAPSULES ity of capsule 00:00: BY MOUTH [place] [facility] OMEGA-3 2021-04 Yes [id number] TAKE 4 [facility] FATTY ACIDS 0-17 CAPSULES ity of capsule 00:00: BY MOUTH [place] [facility] OMEGA-3 2021-04 Yes [id number] TAKE 4 [facility] FATTY ACIDS 0-17 CAPSULES ity of capsule 00:00: BY MOUTH [place] [facility] OMEGA-3 2021-04 Yes [id number] TAKE 4 [facility] FATTY ACIDS 0-17 CAPSULES ity of capsule 00:00: BY MOUTH [place] [facility] OMEGA-3 2021-04 Yes [id number] TAKE 4 [facility] FATTY ACIDS 0-17 CAPSULES ity of capsule 00:00: BY MOUTH [place] [facility] OMEGA-3 2021-04 Yes [id number] TAKE 4 [facility] FATTY ACIDS 0-17 CAPSULES ity of capsule 00:00: BY MOUTH [place] [facility] OMEGA-3 2021-04 Yes [id number] TAKE 4 [facility] FATTY ACIDS 0-17 CAPSULES ity of capsule 00:00: BY MOUTH [place] [facility] OMEGA-3 2021-04 Yes [id number] TAKE 4 [facility] FATTY ACIDS 0-17 CAPSULES ity of capsule 00:00: BY MOUTH [place] [facility] OMEGA-3 2021-04 Yes [id number] TAKE 4 [facility] FATTY ACIDS 0-17 CAPSULES ity of capsule 00:00: BY MOUTH [place] [facility] OMEGA-3 2021-04 Yes [id number] TAKE 4 [facility] FATTY ACIDS 0-17 CAPSULES ity of capsule 00:00: BY MOUTH [place] [facility] OMEGA-3 2021-04 Yes [id number] TAKE 4 [facility] FATTY ACIDS 0-17 CAPSULES ity of capsule 00:00: BY MOUTH [place] [facility] OMEGA-3 2021-04 Yes [id number] TAKE 4 [facility] FATTY ACIDS 0-17 CAPSULES ity of capsule 00:00: BY MOUTH [place] [facility] DAILY [facility] OMEGA-3 2021-04 Yes [id number] TAKE 4 [facility] FATTY ACIDS 0-17 CAPSULES ity of capsule 00:00: BY MOUTH [facility] OMEGA-3 2021-04 Yes [id number] TAKE 4 [facility] FATTY ACIDS 0-17 CAPSULES ity of capsule 00:00: BY MOUTH [facility] OMEGA-3 2021-04 Yes [id number] TAKE 4 [facility] FATTY ACIDS 0-17 CAPSULES ity of capsule 00:00: BY MOUTH [facility] OMEGA-3 2021-04 Yes [id number] TAKE 4 [facility] FATTY ACIDS 0-17 CAPSULES ity of capsule 00:00: BY MOUTH [place] [facility] OMEGA-3 2021-04 Yes [id number] TAKE 4 [facility] FATTY ACIDS 0-17 CAPSULES ity of capsule 00:00: BY MOUTH [place] [facility] OMEGA-3 2021-04 Yes [id number] TAKE 4 [facility] FATTY ACIDS 0-17 CAPSULES ity of capsule 00:00: BY MOUTH [place] [facility] OMEGA-3 2021-04 Yes [id number] TAKE 4 [facility] FATTY ACIDS 0-17 CAPSULES ity of capsule 00:00: BY MOUTH [place] [facility] OMEGA-3 2021-04 Yes [id number] TAKE 4 [facility] FATTY ACIDS 0-17 CAPSULES ity of capsule 00:00: BY MOUTH [place] [facility] OMEGA-3 2021-04 Yes [id number] TAKE 4 [facility] FATTY ACIDS 0-17 CAPSULES ity of capsule 00:00: BY MOUTH [place] [facility] OMEGA-3 2021-04 Yes [id number] TAKE 4 [facility] FATTY ACIDS 0-17 CAPSULES ity of capsule 00:00: BY MOUTH [place] [facility] OMEGA-3 2021-04 Yes [id number] TAKE 4 [facility] FATTY ACIDS 0-17 CAPSULES ity of capsule 00:00: BY MOUTH [place] [facility] OMEGA-3 2021-04 Yes [id number] TAKE 4 [facility] FATTY ACIDS 0-17 CAPSULES ity of capsule 00:00: BY MOUTH [place] [facility] OMEGA-3 2021-04 Yes [id number] TAKE 4 [facility] FATTY ACIDS 0-17 CAPSULES ity of capsule 00:00: BY MOUTH [place] [facility] OMEGA-3 2021-04 Yes [id number] TAKE 4 [facility] FATTY ACIDS 0-17 CAPSULES ity of capsule 00:00: BY MOUTH [place] [facility] OMEGA-3 2021-04 Yes [id number] TAKE 4 [facility] FATTY ACIDS 0-17 CAPSULES ity of capsule 00:00: BY MOUTH [place] [facility] OMEGA-3 2021-04 Yes [id number] TAKE 4 [facility] FATTY ACIDS 0-17 CAPSULES ity of capsule 00:00: BY MOUTH [place] [facility] OMEGA-3 2021-04 Yes [id number] TAKE 4 [facility] FATTY ACIDS 0-17 CAPSULES ity of capsule 00:00: BY MOUTH [place] [facility] OMEGA-3 2021-04 Yes [id number] TAKE 4 [facility] FATTY ACIDS 0-17 CAPSULES ity of capsule 00:00: BY MOUTH [place] [facility] OMEGA-3 2021-04 Yes [id number] TAKE 4 [facility] FATTY ACIDS 0-17 CAPSULES ity of capsule 00:00: BY MOUTH [place] [facility] OMEGA-3 2021-04 Yes [id number] TAKE 4 [facility] FATTY ACIDS 0-17 CAPSULES ity of capsule 00:00: BY MOUTH [place] [facility] OMEGA-3 2021-04 Yes [id number] TAKE 4 [facility] FATTY ACIDS 0-17 CAPSULES ity of capsule 00:00: BY MOUTH [place] [facility] OMEGA-3 2021-04 Yes [id number] TAKE 4 [facility] FATTY ACIDS 0-17 CAPSULES ity of capsule 00:00: BY MOUTH [place] [facility] OMEGA-3 2021-04 Yes [id number] TAKE 4 [facility] FATTY ACIDS 0-17 CAPSULES ity of capsule 00:00: BY MOUTH [place] [facility] OMEGA-3 2021-04 Yes [id number] TAKE 4 [facility] FATTY ACIDS 0-17 CAPSULES ity of capsule 00:00: BY MOUTH [place] [facility] OMEGA-3 2021-04 Yes [id number] TAKE 4 [facility] FATTY ACIDS 0-17 CAPSULES ity of capsule 00:00: BY MOUTH [place] [facility] OMEGA-3 2021-04 Yes [id number] TAKE 4 [facility] FATTY ACIDS 0-17 CAPSULES ity of capsule 00:00: BY MOUTH [place] [facility] OMEGA-3 2021-04 Yes [id number] TAKE 4 [facility] FATTY ACIDS 0-17 CAPSULES ity of capsule 00:00: BY MOUTH [place] [facility] OMEGA-3 2021-04 Yes [id number] TAKE 4 [facility] FATTY ACIDS 0-17 CAPSULES ity of capsule 00:00: BY MOUTH [place] [facility] OMEGA-3 2021-04 Yes [id number] TAKE 4 [facility] FATTY ACIDS 0-17 CAPSULES ity of capsule 00:00: BY MOUTH [place] [facility] OMEGA-3 2021-04 Yes [id number] TAKE 4 [facility] FATTY ACIDS 0-17 CAPSULES ity of capsule 00:00: BY MOUTH [place] [facility] OMEGA-3 2021-04 Yes [id number] TAKE 4 [facility] FATTY ACIDS 0-17 CAPSULES ity of capsule 00:00: BY MOUTH [place] [facility] OMEGA-3 2021-04 Yes [id number] TAKE 4 [facility] FATTY ACIDS 0-17 CAPSULES ity of capsule 00:00: BY MOUTH [place] [facility] OMEGA-3 2021-04 Yes [id number] TAKE 4 [facility] FATTY ACIDS 0-17 CAPSULES ity of capsule 00:00: BY MOUTH [place] [facility] OMEGA-3 2021-04 Yes [id number] TAKE 4 [facility] FATTY ACIDS 0-17 CAPSULES ity of capsule 00:00: BY MOUTH [place] [facility] OMEGA-3 2021-04 Yes [id number] TAKE 4 [facility] vers FATTY ACIDS 0-17 CAPSULES ity of capsule 00:00: BY MOUTH [place] [facility] OMEGA-3 2021-04 Yes [id number] TAKE 4 [facility] FATTY ACIDS 0-17 CAPSULES ity of capsule 00:00: BY MOUTH [place] [facility] OMEGA-3 2021-04 Yes [id number] TAKE 4 [facility] FATTY ACIDS 0-17 CAPSULES ity of capsule 00:00: BY MOUTH [place] [facility] OMEGA-3 2021-04 Yes [id number] TAKE 4 [facility] FATTY ACIDS 0-17 CAPSULES ity of capsule 00:00: BY MOUTH [place] [facility] OMEGA-3 2021-04 Yes [id number] TAKE 4 [facility] FATTY ACIDS 0-17 CAPSULES ity of capsule 00:00: BY MOUTH [place] [facility] OMEGA-3 2021-04 Yes [id number] TAKE 4 [facility] FATTY ACIDS 0-17 CAPSULES ity of capsule 00:00: BY MOUTH [place] [facility] OMEGA-3 2021-04 Yes [id number] TAKE 4 [facility] FATTY ACIDS 0-17 CAPSULES ity of capsule 00:00: BY MOUTH [place] [facility] OMEGA-3 2021-04 Yes [id number] TAKE 4 [facility] FATTY ACIDS 0-17 CAPSULES ity of capsule 00:00: BY MOUTH [place] [facility] OMEGA-3 2021-04 Yes [id number] TAKE 4 [facility] FATTY ACIDS 0-17 CAPSULES ity of capsule 00:00: BY MOUTH [place] [facility] OMEGA-3 2021-04 Yes [id number] TAKE 4 [facility] FATTY ACIDS 0-17 CAPSULES ity of capsule 00:00: BY MOUTH [place] [facility] OMEGA-3 2021-04 Yes [id number] TAKE 4 [facility] FATTY ACIDS 0-17 CAPSULES ity of capsule 00:00: BY MOUTH [place] [facility] OMEGA-3 2021-04 Yes [id number] TAKE 4 [facility] FATTY ACIDS 0-17 CAPSULES ity of capsule 00:00: BY MOUTH [place] [facility] OMEGA-3 2021-04 Yes [id number] TAKE 4 [facility] FATTY ACIDS 0-17 CAPSULES ity of capsule 00:00: BY MOUTH [place] [facility] OMEGA-3 2021-04 Yes [id number] TAKE 4 [facility] FATTY ACIDS 0-17 CAPSULES ity of capsule 00:00: BY MOUTH [place] [facility] OMEGA-3 2021-04 Yes [id number] TAKE 4 [facility] FATTY ACIDS 0-17 CAPSULES ity of capsule 00:00: BY MOUTH [place] [facility] OMEGA-3 2021-04 Yes [id number] TAKE 4 [facility] FATTY ACIDS 0-17 CAPSULES ity of capsule 00:00: BY MOUTH [place] [facility] OMEGA-3 2021-04 Yes [id number] TAKE 4 [facility] FATTY ACIDS 0-17 CAPSULES ity of capsule 00:00: BY MOUTH [place] [facility] OMEGA-3 2021-04 Yes [id number] TAKE 4 [facility] FATTY ACIDS 0-17 CAPSULES ity of capsule 00:00: BY MOUTH [place] [facility] OMEGA-3 2021-04 Yes [id number] TAKE 4 [facility] FATTY ACIDS 0-17 CAPSULES ity of capsule 00:00: BY MOUTH [place] [facility] OMEGA-3 2021-04 Yes [id number] TAKE 4 [facility] FATTY ACIDS 0-17 CAPSULES ity of capsule 00:00: BY MOUTH [place] [facility] OMEGA-3 2021-04 Yes [id number] TAKE 4 [facility] FATTY ACIDS 0-17 CAPSULES ity of capsule 00:00: BY MOUTH [place] [facility] OMEGA-3 2021-04 Yes [id number] TAKE 4 [facility] FATTY ACIDS 0-17 CAPSULES ity of capsule 00:00: BY MOUTH [place] [facility] OMEGA-3 2021-04 Yes [id number] TAKE 4 [facility] FATTY ACIDS 0-17 CAPSULES ity of capsule 00:00: BY MOUTH [place] [facility] OMEGA-3 2021-04 Yes [id number] TAKE 4 [facility] FATTY ACIDS 0-17 CAPSULES ity of capsule 00:00: BY MOUTH [place] [facility] OMEGA-3 2021-04 Yes [id number] TAKE 4 [facility] FATTY ACIDS 0-17 CAPSULES ity of capsule 00:00: BY MOUTH [place] [facility] OMEGA-3 2021-04 Yes [id number] TAKE 4 [facility] FATTY ACIDS 0-17 CAPSULES ity of capsule 00:00: BY MOUTH [place] [facility] OMEGA-3 2021-04 Yes [id number] TAKE 4 [facility] FATTY ACIDS 0-17 CAPSULES ity of capsule 00:00: BY MOUTH [place] [facility] OMEGA-3 2021-04 Yes [id number] TAKE 4 [facility] FATTY ACIDS 0-17 CAPSULES ity of capsule 00:00: BY MOUTH [place] [facility] OMEGA-3 2021-04 Yes [id number] TAKE 4 [facility] FATTY ACIDS 0-17 CAPSULES ity of capsule 00:00: BY MOUTH [place] [facility] OMEGA-3 2021-04 Yes [id number] TAKE 4 [facility] FATTY ACIDS 0-17 CAPSULES ity of capsule 00:00: BY MOUTH [place] [facility] OMEGA-3 2021-04 Yes [id number] TAKE 4 [facility] FATTY ACIDS 0-17 CAPSULES ity of capsule 00:00: BY MOUTH [place] [facility] OMEGA-3 2021-04 Yes [id number] TAKE 4 [facility] FATTY ACIDS 0-17 CAPSULES ity of capsule 00:00: BY MOUTH [place] [facility] OMEGA-3 2021-04 Yes [id number] TAKE 4 [facility] FATTY ACIDS 0-17 CAPSULES ity of capsule 00:00: BY MOUTH [place] [facility] OMEGA-3 2021-04 Yes [id number] TAKE 4 [facility] FATTY ACIDS 0-17 CAPSULES ity of capsule 00:00: BY MOUTH [place] [facility] OMEGA-3 2021-04 Yes [id number] TAKE 4 [facility] FATTY ACIDS 0-17 CAPSULES ity of capsule 00:00: BY MOUTH [place] [facility] OMEGA-3 2021-04 Yes [id number] TAKE 4 [facility] FATTY ACIDS 0-17 CAPSULES ity of capsule 00:00: BY MOUTH [place] [facility] OMEGA-3 2021-04 Yes [id number] TAKE 4 [facility] FATTY ACIDS 0-17 CAPSULES ity of capsule 00:00: BY MOUTH [place] [facility] OMEGA-3 2021-04 Yes [id number] TAKE 4 [facility] FATTY ACIDS 0-17 CAPSULES ity of capsule 00:00: BY MOUTH [place] [facility] OMEGA-3 2021-04 Yes [id number] TAKE 4 [facility] FATTY ACIDS 0-17 CAPSULES ity of capsule 00:00: BY MOUTH [place] [facility] OMEGA-3 2021-04 Yes [id number] TAKE 4 [facility] FATTY ACIDS 0-17 CAPSULES ity of capsule 00:00: BY MOUTH [place] [facility] OMEGA-3 2021-04 Yes [id number] TAKE 4 [facility] FATTY ACIDS 0-17 CAPSULES ity of capsule 00:00: BY MOUTH [place] [facility] OMEGA-3 2021-04 Yes [id number] TAKE 4 [facility] FATTY ACIDS 0-17 CAPSULES ity of capsule 00:00: BY MOUTH [place] [facility] OMEGA-3 2021-04 Yes [id number] TAKE 4 [facility] FATTY ACIDS 0-17 CAPSULES ity of capsule 00:00: BY MOUTH [place] [facility] OMEGA-3 2021-04 Yes [id number] TAKE 4 [facility] FATTY ACIDS 0-17 CAPSULES ity of capsule 00:00: BY MOUTH [place] [facility] OMEGA-3 2021-04 Yes [id number] TAKE 4 [facility] FATTY ACIDS 0-17 CAPSULES ity of capsule 00:00: BY MOUTH [place] [facility] OMEGA-3 2021-04 Yes [id number] TAKE 4 [facility] FATTY ACIDS 0-17 CAPSULES ity of capsule 00:00: BY MOUTH [place] [facility] OMEGA-3 2021-04 Yes [id number] TAKE 4 [facility] FATTY ACIDS 0-17 CAPSULES ity of capsule 00:00: BY MOUTH [place] [facility] OMEGA-3 2021-04 Yes [id number] TAKE 4 [facility] FATTY ACIDS 0-17 CAPSULES ity of capsule 00:00: BY MOUTH [place] [facility] OMEGA-3 2021-04 Yes [id number] TAKE 4 [facility] FATTY ACIDS 0-17 CAPSULES ity of capsule 00:00: BY MOUTH [place] [facility] OMEGA-3 2021-04 Yes [id number] TAKE 4 [facility] FATTY ACIDS 0-17 CAPSULES ity of capsule 00:00: BY MOUTH [place] [facility] OMEGA-3 2021-04 Yes [id number] TAKE 4 [facility] FATTY ACIDS 0-17 CAPSULES ity of capsule 00:00: BY MOUTH [place] [facility] OMEGA-3 2021-04 Yes [id number] TAKE 4 [facility] FATTY ACIDS 0-17 CAPSULES ity of capsule 00:00: BY MOUTH [place] [facility] OMEGA-3 2021-04 Yes [id number] TAKE 4 [facility] FATTY ACIDS 0-17 CAPSULES ity of capsule 00:00: BY MOUTH [place] [facility] OMEGA-3 2021-04 Yes [id number] TAKE 4 [facility] FATTY ACIDS 0-17 CAPSULES ity of capsule 00:00: BY MOUTH [place] [facility] OMEGA-3 2021-04 Yes [id number] TAKE 4 [facility] FATTY ACIDS 0-17 CAPSULES ity of capsule 00:00: BY MOUTH [place] [facility] OMEGA-3 2021-04 Yes [id number] TAKE 4 [facility] FATTY ACIDS 0-17 CAPSULES ity of capsule 00:00: BY MOUTH [place] [facility] OMEGA-3 2021-04 Yes [id number] TAKE 4 [facility] FATTY ACIDS 0-17 CAPSULES ity of capsule 00:00: BY MOUTH [place] [facility] OMEGA-3 2021-04 Yes [id number] TAKE 4 [facility] FATTY ACIDS 0-17 CAPSULES ity of capsule 00:00: BY MOUTH [place] [facility] OMEGA-3 2021-04 Yes [id number] TAKE 4 [facility] FATTY ACIDS 0-17 CAPSULES ity of capsule 00:00: BY MOUTH [place] [facility] OMEGA-3 2021-04 Yes [id number] TAKE 4 [facility] FATTY ACIDS 0-17 CAPSULES ity of capsule 00:00: BY MOUTH [place] [facility] OMEGA-3 2021-04 Yes [id number] TAKE 4 [facility] FATTY ACIDS 0-17 CAPSULES ity of capsule 00:00: BY MOUTH [place] [facility] OMEGA-3 2021-04 Yes [id number] TAKE 4 [facility] FATTY ACIDS 0-17 CAPSULES ity of capsule 00:00: BY MOUTH [place] [facility] OMEGA-3 2021-04 Yes [id number] TAKE 4 [facility] FATTY ACIDS 0-17 CAPSULES ity of capsule 00:00: BY MOUTH [place] [facility] OMEGA-3 2021-04 Yes [id number] TAKE 4 [facility] FATTY ACIDS 0-17 CAPSULES ity of capsule 00:00: BY MOUTH [place] [facility] OMEGA-3 2021-04 Yes [id number] TAKE 4 [facility] FATTY ACIDS 0-17 CAPSULES ity of capsule 00:00: BY MOUTH [place] [facility] OMEGA-3 2021-04 Yes [id number] TAKE 4 [facility] FATTY ACIDS 0-17 CAPSULES ity of capsule 00:00: BY MOUTH [place] [facility] OMEGA-3 2021-04 Yes [id number] TAKE 4 [facility] FATTY ACIDS 0-17 CAPSULES ity of capsule 00:00: BY MOUTH [place] [facility] OMEGA-3 2021-04 Yes [id number] TAKE 4 [facility] FATTY ACIDS 0-17 CAPSULES ity of capsule 00:00: BY MOUTH [place] [facility] OMEGA-3 2021-04 Yes [id number] TAKE 4 [facility] FATTY ACIDS 0-17 CAPSULES ity of capsule 00:00: BY MOUTH [place] [facility] OMEGA-3 2021-04 Yes [id number] TAKE 4 [facility] FATTY ACIDS 0-17 CAPSULES ity of capsule 00:00: BY MOUTH [place] [facility] OMEGA-3 2021-04 Yes [id number] TAKE 4 [facility] FATTY ACIDS 0-17 CAPSULES ity of capsule 00:00: BY MOUTH [place] [facility] OMEGA-3 2021-04 Yes [id number] TAKE 4 [facility] FATTY ACIDS 0-17 CAPSULES ity of capsule 00:00: BY MOUTH [place] [facility] OMEGA-3 2021-04 Yes [id number] TAKE 4 [facility] FATTY ACIDS 0-17 CAPSULES ity of capsule 00:00: BY MOUTH [place] [facility] OMEGA-3 2021-04 Yes [id number] TAKE 4 [facility] FATTY ACIDS 0-17 CAPSULES ity of capsule 00:00: BY MOUTH [place] [facility] OMEGA-3 2021-04 Yes [id number] TAKE 4 [facility] FATTY ACIDS 0-17 CAPSULES ity of capsule 00:00: BY MOUTH [place] 00 DAILY [facility] OMEGA-3 2021- Yes [id number] TAKE 4 [facility] FATTY ACIDS 0-17 CAPSULES ity of capsule 00:00: BY MOUTH [place] 00 DAILY [facility] OMEGA-3 2021- Yes [id number] TAKE 4 [facility] FATTY ACIDS 0-17 CAPSULES ity of capsule 00:00: BY MOUTH [place] 00 DAILY [facility] fenofibrate 2021- Yes [id number] 54mg Take 1 [facility] 54 mg 0-16 tablet by it[facility] of tablet 00:00: mouth in [place] the [facility] morning. Branch fenofibrate 2021-04 Yes [id number] 54mg Take 1 [facility] 54 mg 0-16 tablet by ity of tablet 00:00: mouth in [place] the [facility] morning. Branch fenofibrate 2021-04 Yes [id number] 54mg Take 1 [facility] 54 mg 0-16 tablet by ity of tablet 00:00: mouth in [place] the [facility] morning. Branch fenofibrate 2021-04 Yes [id number] 54mg Take 1 [facility] 54 mg 0-16 tablet by ity of tablet 00:00: mouth in [place] the [facility] morning. Branch fenofibrate 2021-04 Yes [id number] 54mg Take 1 [facility] 54 mg 0-16 tablet by ity of tablet 00:00: mouth in [place] the Medical morning. Branch fenofibrate 2021-04 Yes [id number] 54mg Take 1 [facility] 54 mg 0-16 tablet by ity of tablet 00:00: mouth in [place] the [facility] morning. Branch fenofibrate 2021-04 Yes [id number] 54mg Take 1 [facility] 54 mg 0-16 tablet by ity of tablet 00:00: mouth in [place] the Medical morning. Branch fenofibrate 2021-04 Yes [id number] 54mg Take 1 [facility] 54 mg 0-16 tablet by ity of tablet 00:00: mouth in [place] the Medical morning. Branch fenofibrate 2021-04 Yes [id number] 54mg Take 1 [facility] 54 mg 0-16 tablet by ity of tablet 00:00: mouth in [place] the Medical morning. Branch fenofibrate 2021- Yes [id number] 54mg Take 1 [facility] 54 mg 0-16 tablet by ity of tablet 00:00: mouth in [place] the Medical morning. Branch fenofibrate 2021- Yes [id number] 54mg Take 1 [facility] 54 mg 0-16 tablet by ity of tablet 00:00: mouth in [place] the [facility] morning. Branch fenofibrate 2021-1 Yes [id number] 54mg Take 1 [facility] 54 mg 0-16 tablet by ity of tablet 00:00: mouth in [place] the [facility] morning. Branch fenofibrate 2021- Yes [id number] 54mg Take 1 [facility] 54 mg 0-16 tablet by ity of tablet 00:00: mouth in [place] the Medical morning. Branch fenofibrate 2021- Yes [id number] 54mg Take 1 [facility] 54 mg 0-16 tablet by ity of tablet 00:00: mouth in [place] the Medical morning. Branch fenofibrate 2021-1 Yes [id number] 54mg Take 1 [facility] 54 mg 0-16 tablet by ity of tablet 00:00: mouth in [place] the [facility] morning. Branch fenofibrate 2021- Yes [id number] 54mg Take 1 [facility] 54 mg 0-16 tablet by ity of tablet 00:00: mouth in [place] the [facility] morning. Branch fenofibrate 2021- Yes [id number] 54mg Take 1 [facility] 54 mg 0-16 tablet by ity of tablet 00:00: mouth in [place] the [facility] morning. Branch fenofibrate 2021-1 Yes [id number] 54mg Take 1 [facility] 54 mg 0-16 tablet by ity of tablet 00:00: mouth in [place] the [facility] morning. Branch fenofibrate 2021-1 Yes [id number] 54mg Take 1 [facility] 54 mg 0-16 tablet by ity of tablet 00:00: mouth in [place] the [facility] morning. Branch fenofibrate 2021-1 Yes [id number] 54mg Take 1 [facility] 54 mg 0-16 tablet by ity of tablet 00:00: mouth in [place] the Medical morning. Branch fenofibrate 2021-1 Yes [id number] 54mg Take 1 [facility] 54 mg 0-16 tablet by ity of tablet 00:00: mouth in [place] the [facility] morning. Branch fenofibrate 2021-1 Yes [id number] 54mg Take 1 [facility] 54 mg 0-16 tablet by [facility] tablet 00:00: mouth in [place] the Medical morning. Branch fenofibrate 2021- Yes [id number] 54mg Take 1 [facility] 54 mg 0-16 tablet by [facility] tablet 00:00: mouth in [place] the Medical morning. Branch fenofibrate 2021-1 Yes [id number] 54mg Take 1 [facility] 54 mg 0-16 tablet by [facility] tablet 00:00: mouth in [place] the Medical morning. Branch fenofibrate 2021-1 Yes [id number] 54mg Take 1 [facility] 54 mg 0-16 tablet by [facility] tablet 00:00: mouth in [place] the Medical morning. Branch fenofibrate 2021- Yes [id number] 54mg Take 1 [facility] 54 mg 0-16 tablet by [facility] tablet 00:00: mouth in [place] the Medical morning. Branch fenofibrate 2021-1 Yes [id number] 54mg Take 1 [facility] 54 mg 0-16 tablet by [facility] tablet 00:00: mouth in [place] the Medical morning. Branch fenofibrate 2021- Yes [id number] 54mg Take 1 [facility] 54 mg 0-16 tablet by [facility] tablet 00:00: mouth in [place] the Medical morning. Branch fenofibrate 2021-04 Yes [id number] 54mg Take 1 [facility] 54 mg 0-16 tablet by [facility] tablet 00:00: mouth in [place] the Medical morning. Branch fenofibrate 2021-1 Yes [id number] 54mg Take 1 [facility] 54 mg 0-16 tablet by [facility] tablet 00:00: mouth in [place] the Medical morning. Branch fenofibrate 2021-1 Yes [id number] 54mg Take 1 [facility] 54 mg 0-16 tablet by [facility] tablet 00:00: mouth in [place] the Medical morning. Branch fenofibrate 2021-1 Yes [id number] 54mg Take 1 [facility] 54 mg 0-16 tablet by [facility] tablet 00:00: mouth in [place] the Medical morning. Branch fenofibrate 2021-1 Yes [id number] 54mg Take 1 [facility] 54 mg 0-16 tablet by [facility] tablet 00:00: mouth in [place] the Medical morning. Branch fenofibrate 2021-1 Yes [id number] 54mg Take 1 [facility] 54 mg 0-16 tablet by [facility] tablet 00:00: mouth in [place] 00 the Medical morning. Branch fenofibrate 2021-04 Yes [id number] 54mg Take 1 [facility] 54 mg 0-16 tablet by [facility] tablet 00:00: mouth in [place] the Medical morning. Branch fenofibrate 2021-04 Yes [id number] 54mg Take 1 [facility] 54 mg 0-16 tablet by [facility] tablet 00:00: mouth in [place] the Medical morning. Branch fenofibrate 2021-04 Yes [id number] 54mg Take 1 [facility] 54 mg 0-16 tablet by [facility] tablet 00:00: mouth in [place] the Medical morning. Branch fenofibrate 2021-04 Yes [id number] 54mg Take 1 [facility] 54 mg 0-16 tablet by [facility] tablet 00:00: mouth in [place] the Medical morning. Branch fenofibrate 2021- Yes [id number] 54mg Take 1 [facility] 54 mg 0-16 tablet by [facility] tablet 00:00: mouth in [place] the Medical morning. Branch fenofibrate 2021- Yes [id number] 54mg Take 1 [facility] 54 mg 0-16 tablet by [facility] tablet 00:00: mouth in [place] the Medical morning. Branch fenofibrate 2021-04 Yes [id number] 54mg Take 1 [facility] 54 mg 0-16 tablet by [facility] tablet 00:00: mouth in [place] the Medical morning. Branch fenofibrate 2021-04 Yes [id number] 54mg Take 1 [facility] 54 mg 0-16 tablet by [facility] tablet 00:00: mouth in [place] the Medical morning. Branch fenofibrate 2021- Yes [id number] 54mg Take 1 [facility] 54 mg 0-16 tablet by [facility] tablet 00:00: mouth in [place] the Medical morning. Branch fenofibrate 2021-04 Yes [id number] 54mg Take 1 [facility] 54 mg 0-16 tablet by [facility] tablet 00:00: mouth in [place] the Medical morning. Branch fenofibrate 2021- Yes [id number] 54mg Take 1 [facility] 54 mg 0-16 tablet by [facility] tablet 00:00: mouth in [place] the Medical morning. Branch fenofibrate 2021- Yes [id number] 54mg Take 1 [facility] 54 mg 0-16 tablet by [facility] tablet 00:00: mouth in [place] the Medical morning. Branch fenofibrate 2021-04 Yes [id number] 54mg Take 1 [facility] 54 mg 0-16 tablet by [facility] tablet 00:00: mouth in [place] the Medical morning. Branch fenofibrate 2021-04 Yes [id number] 54mg Take 1 [facility] 54 mg 0-16 tablet by [facility] tablet 00:00: mouth in [place] the Medical morning. Branch fenofibrate 2021- Yes [id number] 54mg Take 1 [facility] 54 mg 0-16 tablet by [facility] tablet 00:00: mouth in [place] the Medical morning. Branch fenofibrate 2021- Yes [id number] 54mg Take 1 [facility] 54 mg 0-16 tablet by [facility] tablet 00:00: mouth in [place] the Medical morning. Branch fenofibrate 2021- Yes [id number] 54mg Take 1 [facility] 54 mg 0-16 tablet by [facility] tablet 00:00: mouth in [place] the Medical morning. Branch fenofibrate 2021- Yes [id number] 54mg Take 1 [facility] 54 mg 0-16 tablet by [facility] tablet 00:00: mouth in [place] the Medical morning. Branch fenofibrate 2021-04 Yes [id number] 54mg Take 1 [facility] 54 mg 0-16 tablet by [facility] tablet 00:00: mouth in [place] the Medical morning. Branch fenofibrate 2021-04 Yes [id number] 54mg Take 1 [facility] 54 mg 0-16 tablet by [facility] tablet 00:00: mouth in [place] the Medical morning. Branch fenofibrate 2021- Yes [id number] 54mg Take 1 [facility] 54 mg 0-16 tablet by [facility] tablet 00:00: mouth in [place] the Medical morning. Branch fenofibrate 2021- Yes [id number] 54mg Take 1 [facility] 54 mg 0-16 tablet by [facility] tablet 00:00: mouth in [place] the Medical morning. Branch fenofibrate 2021- Yes [id number] 54mg Take 1 [facility] 54 mg 0-16 tablet by [facility] tablet 00:00: mouth in [place] the Medical morning. Branch fenofibrate 2021-1 Yes [id number] 54mg Take 1 [facility] 54 mg 0-16 tablet by [facility] tablet 00:00: mouth in [place] 00 the Medical morning. Branch fenofibrate 2021- Yes [id number] 54mg Take 1 [facility] 54 mg 0-16 tablet by [facility] tablet 00:00: mouth in [place] the Medical morning. Branch fenofibrate 2021-04 Yes [id number] 54mg Take 1 [facility] 54 mg 0-16 tablet by [facility] tablet 00:00: mouth in [place] the Medical morning. Branch fenofibrate 2021-04 Yes [id number] 54mg Take 1 [facility] 54 mg 0-16 tablet by [facility] tablet 00:00: mouth in [place] the Medical morning. Branch fenofibrate 2021-04 Yes [id number] 54mg Take 1 [facility] 54 mg 0-16 tablet by [facility] tablet 00:00: mouth in [place] the Medical morning. Branch fenofibrate 2021-04 Yes [id number] 54mg Take 1 [facility] 54 mg 0-16 tablet by [facility] tablet 00:00: mouth in [place] the Medical morning. Branch fenofibrate 2021-04 Yes [id number] 54mg Take 1 [facility] 54 mg 0-16 tablet by [facility] tablet 00:00: mouth in [place] the Medical morning. Branch fenofibrate 2021-04 Yes [id number] 54mg Take 1 [facility] 54 mg 0-16 tablet by [facility] tablet 00:00: mouth in [place] the Medical morning. Branch fenofibrate 2021-04 Yes [id number] 54mg Take 1 [facility] 54 mg 0-16 tablet by [facility] tablet 00:00: mouth in [place] the Medical morning. Branch fenofibrate 2021-04 Yes [id number] 54mg Take 1 [facility] 54 mg 0-16 tablet by [facility] tablet 00:00: mouth in [place] the Medical morning. Branch fenofibrate 2021-04 Yes [id number] 54mg Take 1 [facility] 54 mg 0-16 tablet by [facility] tablet 00:00: mouth in [place] the Medical morning. Branch fenofibrate 2021-04 Yes [id number] 54mg Take 1 [facility] 54 mg 0-16 tablet by [facility] tablet 00:00: mouth in [place] the Medical morning. Branch fenofibrate 2021-04 Yes [id number] 54mg Take 1 [facility] 54 mg 0-16 tablet by [facility] tablet 00:00: mouth in [place] the Medical morning. Branch fenofibrate 2021- Yes [id number] 54mg Take 1 [facility] 54 mg 0-16 tablet by [facility] tablet 00:00: mouth in [place] 00 the Medical morning. Branch fenofibrate 2021- Yes [id number] 54mg Take 1 [facility] 54 mg 0-16 tablet by [facility] tablet 00:00: mouth in [place] 00 the Medical morning. Branch fenofibrate 2021-1 Yes [id number] 54mg Take 1 [facility] 54 mg 0-16 tablet by [facility] tablet 00:00: mouth in [place] 00 the Medical morning. Branch fenofibrate 2021- Yes [id number] 54mg Take 1 [facility] 54 mg 0-16 tablet by [facility] tablet 00:00: mouth in [place] 00 the Medical morning. Branch fenofibrate 2021- Yes [id number] 54mg Take 1 [facility] 54 mg 0-16 tablet by [facility] tablet 00:00: mouth in [place] the Medical morning. Branch fenofibrate 2021- Yes [id number] 54mg Take 1 [facility] 54 mg 0-16 tablet by [facility] tablet 00:00: mouth in [place] the Medical morning. Branch fenofibrate 2021- Yes [id number] 54mg Take 1 [facility] 54 mg 0-16 tablet by [facility] tablet 00:00: mouth in [place] the Medical morning. Branch fenofibrate 2021-043- No [id number] 54mg Take 1 [facility] 54 mg 0-16 04-09 tablet by [facility] tablet 00:00: 00:00 mouth in [place] 00 :00 the Medical morning. Branch empaglifloz 2021- Yes [id number] 25mg Take 1 [facility] in 0-05 tablet by [facility] ([place]) 00:00: mouth in [place] 25 mg Tab 00 the Medical morning. Branch empaglifloz 2021-1 Yes [id number] 25mg Take 1 [facility] in 0-05 tablet by [facility] ([place]) 00:00: mouth in [place] 25 mg Tab 00 the Medical morning. Branch empaglifloz 2021-1 Yes [id number] 25mg Take 1 [facility] in 0-05 tablet by [facility] ([place]) 00:00: mouth in [place] 25 mg Tab 00 the Medical morning. Branch empaglifloz 2021-1 Yes [id number] 25mg Take 1 [facility] in 0-05 tablet by [facility] ([place]) 00:00: mouth in [place] 25 mg Tab 00 the Medical morning. Branch empaglifloz 2-1 Yes [id number] 25mg Take 1 [facility] in 0-05 tablet by [facility] ([place]) 00:00: mouth in [place] 25 mg Tab 00 the Medical morning. Branch empaglifloz 2-1 Yes [id number] 25mg Take 1 [facility] in 0-05 tablet by [facility] ([place]) 00:00: mouth in [place] 25 mg Tab 00 the Medical morning. Branch empaglifloz 2-1 Yes [id number] 25mg Take 1 [facility] in 0-05 tablet by [facility] ([place]) 00:00: mouth in [place] 25 mg Tab 00 the Medical morning. Branch empaglifloz 2-1 Yes [id number] 25mg Take 1 [facility] in 0-05 tablet by [facility] ([place]) 00:00: mouth in [place] 25 mg Tab 00 the Medical morning. Branch empaglifloz 2-1 Yes [id number] 25mg Take 1 [facility] in 0-05 tablet by [facility] ([place]) 00:00: mouth in [place] 25 mg Tab 00 the Medical morning. Branch empaglifloz 2-1 Yes [id number] 25mg Take 1 [facility] in 0-05 tablet by [facility] ([place]) 00:00: mouth in [place] 25 mg Tab 00 the Medical morning. Branch empaglifloz 2-1 Yes [id number] 25mg Take 1 [facility] in 0-05 tablet by [facility] ([place]) 00:00: mouth in [place] 25 mg Tab 00 the Medical morning. Branch empaglifloz 2-1 Yes [id number] 25mg Take 1 [facility] in 0-05 tablet by [facility] ([place]) 00:00: mouth in [place] 25 mg Tab 00 the Medical morning. Branch empaglifloz 2-1 Yes [id number] 25mg Take 1 [facility] in 0-05 tablet by [facility] ([place]) 00:00: mouth in [place] 25 mg Tab 00 the Medical morning. Branch empaglifloz 2022-1 Yes [id number] 25mg Take 1 [facility] in 0-05 tablet by [facility] ([place]) 00:00: mouth in [place] 25 mg Tab 00 the Medical morning. Branch empaglifloz 2-1 Yes [id number] 25mg Take 1 [facility] in 0-05 tablet by [facility] ([place]) 00:00: mouth in [place] 25 mg Tab 00 the Medical morning. Branch empaglifloz 2-1 Yes [id number] 25mg Take 1 [facility] in 0-05 tablet by [facility] ([place]) 00:00: mouth in [place] 25 mg Tab 00 the Medical morning. Branch empaglifloz 2-1 Yes [id number] 25mg Take 1 [facility] in 0-05 tablet by [facility] ([place]) 00:00: mouth in [place] 25 mg Tab 00 the Medical morning. Branch empaglifloz 2-1 Yes [id number] 25mg Take 1 [facility] in 0-05 tablet by [facility] ([place]) 00:00: mouth in [place] 25 mg Tab 00 the Medical morning. Branch empaglifloz 2-1 Yes [id number] 25mg Take 1 [facility] in 0-05 tablet by [facility] ([place]) 00:00: mouth in [place] 25 mg Tab 00 the Medical morning. Branch empaglifloz 2-1 Yes [id number] 25mg Take 1 [facility] in 0-05 tablet by [facility] ([place]) 00:00: mouth in [place] 25 mg Tab 00 the Medical morning. Branch empaglifloz 2-1 Yes [id number] 25mg Take 1 [facility] in 0-05 tablet by [facility] ([place]) 00:00: mouth in [place] 25 mg Tab 00 the Medical morning. Branch empaglifloz 2-1 Yes [id number] 25mg Take 1 [facility] in 0-05 tablet by [facility] ([place]) 00:00: mouth in [place] 25 mg Tab 00 the Medical morning. Branch empaglifloz 2-1 Yes [id number] 25mg Take 1 [facility] in 0-05 tablet by [facility] ([place]) 00:00: mouth in [place] 25 mg Tab 00 the Medical morning. Branch empaglifloz 2-1 Yes [id number] 25mg Take 1 [facility] in 0-05 tablet by [facility] ([place]) 00:00: mouth in [place] 25 mg Tab 00 the Medical morning. Branch empaglifloz 2022-1 Yes [id number] 25mg Take 1 [facility] in 0-05 tablet by [facility] ([place]) 00:00: mouth in [place] 25 mg Tab 00 the Medical morning. Branch empaglifloz 2-1 Yes [id number] 25mg Take 1 [facility] in 0-05 tablet by [facility] ([place]) 00:00: mouth in [place] 25 mg Tab 00 the Medical morning. Branch empaglifloz 2-1 Yes [id number] 25mg Take 1 [facility] in 0-05 tablet by [facility] ([place]) 00:00: mouth in [place] 25 mg Tab 00 the Medical morning. Branch empaglifloz 2-1 Yes [id number] 25mg Take 1 [facility] in 0-05 tablet by [facility] ([place]) 00:00: mouth in [place] 25 mg Tab 00 the Medical morning. Branch empaglifloz 2-1 Yes [id number] 25mg Take 1 [facility] in 0-05 tablet by [facility] ([place]) 00:00: mouth in [place] 25 mg Tab 00 the Medical morning. Branch empaglifloz 2-1 Yes [id number] 25mg Take 1 [facility] in 0-05 tablet by [facility] ([place]) 00:00: mouth in [place] 25 mg Tab 00 the Medical morning. Branch empaglifloz 2-1 Yes [id number] 25mg Take 1 [facility] in 0-05 tablet by [facility] ([place]) 00:00: mouth in [place] 25 mg Tab 00 the Medical morning. Branch empaglifloz 2-1 Yes [id number] 25mg Take 1 [facility] in 0-05 tablet by [facility] ([place]) 00:00: mouth in [place] 25 mg Tab 00 the Medical morning. Branch empaglifloz 2-1 Yes [id number] 25mg Take 1 [facility] in 0-05 tablet by [facility] ([place]) 00:00: mouth in [place] 25 mg Tab 00 the Medical morning. Branch empaglifloz 2-1 Yes [id number] 25mg Take 1 [facility] in 0-05 tablet by [facility] ([place]) 00:00: mouth in [place] 25 mg Tab 00 the Medical morning. Branch empaglifloz 2-1 Yes [id number] 25mg Take 1 [facility] in 0-05 tablet by [facility] ([place]) 00:00: mouth in [place] 25 mg Tab 00 the Medical morning. Branch empaglifloz 2-1 Yes [id number] 25mg Take 1 [facility] in 0-05 tablet by [facility] ([place]) 00:00: mouth in [place] 25 mg Tab 00 the Medical morning. Branch empaglifloz 2-1 Yes [id number] 25mg Take 1 [facility] in 0-05 tablet by [facility] ([place]) 00:00: mouth in [place] 25 mg Tab 00 the Medical morning. Branch empaglifloz 2-1 Yes [id number] 25mg Take 1 [facility] in 0-05 tablet by [facility] ([place]) 00:00: mouth in [place] 25 mg Tab 00 the Medical morning. Branch empaglifloz 2-1 Yes [id number] 25mg Take 1 [facility] in 0-05 tablet by [facility] ([place]) 00:00: mouth in [place] 25 mg Tab 00 the Medical morning. Branch empaglifloz 2021-1 Yes [id number] 25mg Take 1 [facility] in 0-05 tablet by [facility] ([place]) 00:00: mouth in [place] 25 mg Tab 00 the Medical morning. Branch empaglifloz 2-1 Yes [id number] 25mg Take 1 [facility] in 0-05 tablet by [facility] ([place]) 00:00: mouth in [place] 25 mg Tab 00 the Medical morning. Branch empaglifloz 2-1 Yes [id number] 25mg Take 1 [facility] in 0-05 tablet by [facility] ([place]) 00:00: mouth in [place] 25 mg Tab 00 the Medical morning. Branch empaglifloz 2-1 Yes [id number] 25mg Take 1 [facility] in 0-05 tablet by [facility] ([place]) 00:00: mouth in [place] 25 mg Tab 00 the Medical morning. Branch empaglifloz 2-1 Yes [id number] 25mg Take 1 [facility] in 0-05 tablet by [facility] ([place]) 00:00: mouth in [place] 25 mg Tab 00 the Medical morning. Branch empaglifloz 2-1 Yes [id number] 25mg Take 1 [facility] in 0-05 tablet by [facility] ([place]) 00:00: mouth in [place] 25 mg Tab 00 the Medical morning. Branch empaglifloz 2-1 Yes [id number] 25mg Take 1 [facility] in 0-05 tablet by [facility] ([place]) 00:00: mouth in [place] 25 mg Tab 00 the Medical morning. Branch empaglifloz 2-1 Yes [id number] 25mg Take 1 [facility] in 0-05 tablet by [facility] ([place]) 00:00: mouth in [place] 25 mg Tab 00 the Medical morning. Branch empaglifloz 2-1 Yes [id number] 25mg Take 1 [facility] in 0-05 tablet by [facility] ([place]) 00:00: mouth in [place] 25 mg Tab 00 the Medical morning. Branch empaglifloz 2-1 Yes [id number] 25mg Take 1 [facility] in 0-05 tablet by [facility] ([place]) 00:00: mouth in [place] 25 mg Tab 00 the Medical morning. Branch empaglifloz 2-1 Yes [id number] 25mg Take 1 [facility] in 0-05 tablet by [facility] ([place]) 00:00: mouth in [place] 25 mg Tab 00 the Medical morning. Branch empaglifloz 2-1 Yes [id number] 25mg Take 1 [facility] in 0-05 tablet by [facility] ([place]) 00:00: mouth in [place] 25 mg Tab 00 the Medical morning. Branch empaglifloz 2-1 Yes [id number] 25mg Take 1 [facility] in 0-05 tablet by [facility] ([place]) 00:00: mouth in [place] 25 mg Tab 00 the Medical morning. Branch empaglifloz 2-1 Yes [id number] 25mg Take 1 [facility] in 0-05 tablet by [facility] ([place]) 00:00: mouth in [place] 25 mg Tab 00 the Medical morning. Branch empaglifloz 2-1 Yes [id number] 25mg Take 1 [facility] in 0-05 tablet by [facility] ([place]) 00:00: mouth in [place] 25 mg Tab 00 the Medical morning. Branch empaglifloz 2-1 Yes [id number] 25mg Take 1 [facility] in 0-05 tablet by [facility] ([place]) 00:00: mouth in [place] 25 mg Tab 00 the Medical morning. Branch empaglifloz 2-1 Yes [id number] 25mg Take 1 [facility] in 0-05 tablet by [facility] ([place]) 00:00: mouth in [place] 25 mg Tab 00 the Medical morning. Branch empaglifloz 2-1 Yes [id number] 25mg Take 1 [facility] in 0-05 tablet by [facility] ([place]) 00:00: mouth in [place] 25 mg Tab 00 the Medical morning. Branch empaglifloz 2-1 Yes [id number] 25mg Take 1 [facility] in 0-05 tablet by [facility] ([place]) 00:00: mouth in [place] 25 mg Tab 00 the Medical morning. Branch empaglifloz 2-1 Yes [id number] 25mg Take 1 [facility] in 0-05 tablet by [facility] ([place]) 00:00: mouth in [place] 25 mg Tab 00 the Medical morning. Branch empaglifloz 2-1 Yes [id number] 25mg Take 1 [facility] in 0-05 tablet by [facility] ([place]) 00:00: mouth in [place] 25 mg Tab 00 the Medical morning. Branch empaglifloz 2-1 Yes [id number] 25mg Take 1 [facility] in 0-05 tablet by [facility] ([place]) 00:00: mouth in [place] 25 mg Tab 00 the Medical morning. Branch empaglifloz 2-1 Yes [id number] 25mg Take 1 [facility] in 0-05 tablet by [facility] ([place]) 00:00: mouth in [place] 25 mg Tab 00 the Medical morning. Branch empaglifloz 2-1 Yes [id number] 25mg Take 1 [facility] in 0-05 tablet by [facility] ([place]) 00:00: mouth in [place] 25 mg Tab 00 the Medical morning. Branch empaglifloz 2-1 Yes [id number] 25mg Take 1 [facility] in 0-05 tablet by [facility] ([place]) 00:00: mouth in [place] 25 mg Tab 00 the Medical morning. Branch empaglifloz 2022-1 Yes [id number] 25mg Take 1 [facility] in 0-05 tablet by [facility] ([place]) 00:00: mouth in [place] 25 mg Tab 00 the Medical morning. Branch empaglifloz 2-1 Yes [id number] 25mg Take 1 [facility] in 0-05 tablet by [facility] ([place]) 00:00: mouth in [place] 25 mg Tab 00 the Medical morning. Branch empaglifloz 2-1 Yes [id number] 25mg Take 1 [facility] in 0-05 tablet by [facility] ([place]) 00:00: mouth in [place] 25 mg Tab 00 the Medical morning. Branch empaglifloz 2-1 Yes [id number] 25mg Take 1 [facility] in 0-05 tablet by [facility] ([place]) 00:00: mouth in [place] 25 mg Tab 00 the Medical morning. Branch empaglifloz 2-1 Yes [id number] 25mg Take 1 [facility] in 0-05 tablet by [facility] ([place]) 00:00: mouth in [place] 25 mg Tab 00 the Medical morning. Branch empaglifloz 2-1 Yes [id number] 25mg Take 1 [facility] in 0-05 tablet by [facility] ([place]) 00:00: mouth in [place] 25 mg Tab 00 the Medical morning. Branch empaglifloz 2021-1 Yes [id number] 25mg Take 1 [facility] in 0-05 tablet by [facility] ([place]) 00:00: mouth in [place] 25 mg Tab 00 the Medical morning. Branch empaglifloz 2-1 Yes [id number] 25mg Take 1 [facility] in 0-05 tablet by [facility] ([place]) 00:00: mouth in [place] 25 mg Tab 00 the Medical morning. Branch empaglifloz 2-1 Yes [id number] 25mg Take 1 [facility] in 0-05 tablet by [facility] ([place]) 00:00: mouth in [place] 25 mg Tab 00 the Medical morning. Branch empaglifloz 2-1 Yes [id number] 25mg Take 1 [facility] in 0-05 tablet by [facility] ([place]) 00:00: mouth in [place] 25 mg Tab 00 the Medical morning. Branch empaglifloz 2-1 Yes [id number] 25mg Take 1 [facility] in 0-05 tablet by [facility] ([place]) 00:00: mouth in [place] 25 mg Tab 00 the Medical morning. Branch empaglifloz 2022-1 Yes [id number] 25mg Take 1 [facility] in 0-05 tablet by [facility] ([place]) 00:00: mouth in [place] 25 mg Tab 00 the Medical morning. Branch empaglifloz 2021- Yes [id number] 25mg Take 1 [facility] in 0-05 tablet by [facility] ([place]) 00:00: mouth in [place] 25 mg Tab 00 the Medical morning. Branch empaglifloz 2-1 Yes [id number] 25mg Take 1 [facility] in 0-05 tablet by [facility] ([place]) 00:00: mouth in [place] 25 mg Tab 00 the Medical morning. Branch empaglifloz 2-1 Yes [id number] 25mg Take 1 [facility] in 0-05 tablet by [facility] ([place]) 00:00: mouth in [place] 25 mg Tab 00 the Medical morning. Branch empaglifloz 2-1 Yes [id number] 25mg Take 1 [facility] in 0-05 tablet by [facility] ([place]) 00:00: mouth in [place] 25 mg Tab 00 the Medical morning. Branch empaglifloz 2021- Yes [id number] 25mg Take 1 [facility] in 0-05 tablet by [facility] ([place]) 00:00: mouth in [place] 25 mg Tab 00 the Medical morning. Branch empaglifloz 2021- Yes [id number] 25mg Take 1 [facility] in 0-05 tablet by [facility] ([place]) 00:00: mouth in [place] 25 mg Tab 00 the Medical morning. Branch empaglifloz 2-1 Yes [id number] 25mg Take 1 [facility] in 0-05 tablet by [facility] ([place]) 00:00: mouth in [place] 25 mg Tab 00 the Medical morning. Branch empaglifloz 2-1 Yes [id number] 25mg Take 1 [facility] in 0-05 tablet by [facility] ([place]) 00:00: mouth in [place] 25 mg Tab 00 the Medical morning. Branch empaglifloz 2-1 Yes [id number] 25mg Take 1 [facility] in 0-05 tablet by [facility] ([place]) 00:00: mouth in [place] 25 mg Tab 00 the Medical morning. Branch empaglifloz 2-1 Yes [id number] 25mg Take 1 [facility] in 0-05 tablet by [facility] ([place]) 00:00: mouth in [place] 25 mg Tab 00 the Medical morning. Branch empaglifloz 2021-1 Yes [id number] 25mg Take 1 [facility] in 0-05 tablet by [facility] ([place]) 00:00: mouth in [place] 25 mg Tab 00 the Medical morning. Branch empaglifloz 2021-1 Yes [id number] 25mg Take 1 [facility] in 0-05 tablet by [facility] ([place]) 00:00: mouth in [place] 25 mg Tab 00 the Medical morning. Branch empaglifloz 2021- Yes [id number] 25mg Take 1 [facility] in 0-05 tablet by [facility] ([place]) 00:00: mouth in [place] 25 mg Tab 00 the Medical morning. Branch empaglifloz 2021-1 Yes [id number] 25mg Take 1 [facility] in 0-05 tablet by [facility] ([place]) 00:00: mouth in [place] 25 mg Tab 00 the Medical morning. Branch empaglifloz 2021-1 Yes [id number] 25mg Take 1 [facility] in 0-05 tablet by [facility] ([place]) 00:00: mouth in [place] 25 mg Tab 00 the Medical morning. Branch empaglifloz 2021-1 Yes [id number] 25mg Take 1 [facility] in 0-05 tablet by [facility] ([place]) 00:00: mouth in [place] 25 mg Tab 00 the Medical morning. Branch empaglifloz 2021-1 Yes [id number] 25mg Take 1 [facility] in 0-05 tablet by [facility] ([place]) 00:00: mouth in [place] 25 mg Tab 00 the Medical morning. Branch empaglifloz 2021-1 Yes [id number] 25mg Take 1 [facility] in 0-05 tablet by [facility] ([place]) 00:00: mouth in [place] 25 mg Tab 00 the Medical morning. Branch empaglifloz 2021-2022- No [id number] 25mg Take 1 [facility] in 0-05 05-04 tablet by [facility] ([place]) 00:00: 00:00 mouth in [place] 25 mg Tab 00 :00 the Medical morning. Branch DOXAZOSIN 2 2021-0 Yes 2mg TAKE 1 [facility] mg tablet 9-29 TABLET BY [facility] o f 00:00: MOUTH AT [place] [address] BEDTIME. Medical Branch DOXAZOSIN 2 2021-0 Yes 2mg TAKE 1 [facility] mg tablet 9-29 TABLET BY [facility] o f 00:00: MOUTH AT [place] [address] BEDTIME. Medical Branch DOXAZOSIN 2 2021-0 Yes 2mg TAKE 1 [facility] mg tablet 9-29 TABLET BY [facility] o f 00:00: MOUTH AT [place] [address] BEDTIME. Medical Branch DOXAZOSIN 2 2021-0 Yes 2mg TAKE 1 [facility] mg tablet 9-29 TABLET BY [facility] o f 00:00: MOUTH AT [place] [address] BEDTIME. Medical Branch DOXAZOSIN 2 2021-0 Yes 2mg TAKE 1 [facility] mg tablet 9-29 TABLET BY [facility] o f 00:00: MOUTH AT [place] [address] BEDTIME. Medical Branch DOXAZOSIN 2 2021-0 Yes 2mg TAKE 1 [facility] mg tablet 9-29 TABLET BY [facility] o f 00:00: MOUTH AT [place] [address] BEDTIME. Medical Branch DOXAZOSIN 2 2021-0 Yes 2mg TAKE 1 [facility] mg tablet 9-29 TABLET BY [facility] o f 00:00: MOUTH AT [place] [address] BEDTIME. Medical Branch DOXAZOSIN 2 2021-0 Yes 2mg TAKE 1 [facility] mg tablet 9-29 TABLET BY [facility] o f 00:00: MOUTH AT [place] [address] BEDTIME. Medical Branch DOXAZOSIN 2 2021-0 Yes 2mg TAKE 1 [facility] mg tablet 9-29 TABLET BY [facility] o f 00:00: MOUTH AT [place] [address] BEDTIME. Medical Branch DOXAZOSIN 2 2021-0 2021- No 2mg TAKE 1 [facility] mg tablet 9-29 10-24 TABLET BY [facility] of 00:00: 00:00 MOUTH AT [place] 00 :00 BEDTIME. [facility] DOXAZOSIN 2 2021-0 2022- No 2mg TAKE 1 [facility] mg tablet 9-29 10-24 TABLET BY ity of 00:00: 00:00 MOUTH AT [place] 00 :00 BEDTIME. Medical Branch DOXAZOSIN 2 2021-0 2- No 2mg TAKE 1 [facility] vers mg tablet 9-29 10-24 TABLET BY ity of 00:00: 00:00 MOUTH AT [place] 00 :00 BEDTIME. Medical Branch ALLERGY 2021-0 Yes [id number] TAKE 1 [facility] ers RELIEF, 9-15 TABLET BY ity of LORATADINE, 00:00: MOUTH [place] 10 mg 00 DAILY Medical tablet Branch COLCHICINE 2021-0 Yes [id number] TAKE 1 [facility] 0.6 mg 9-15 TABLET BY ity of tablet 00:00: MOUTH [place] 00 DAILY Medical Branch TAMSULOSIN 2021-0 Yes [id number] .4mg TAKE 1 [facility] 0.4 mg 24 9-15 CAPSULE BY ity of hr capsule 00:00: MOUTH [place] 00 DAILY Medical Branch ALLERGY 2021-0 Yes [id number] TAKE 1 [facility] ers RELIEF, 9-15 TABLET BY ity of LORATADINE, 00:00: MOUTH [place] 10 mg 00 DAILY Medical tablet Branch COLCHICINE 2021-0 Yes [id number] TAKE 1 [facility] 0.6 mg 9-15 TABLET BY it[facility] of tablet 00:00: MOUTH [place] 00 DAILY Medical Branch empaglifloz 2021-0 Yes [id number] 10mg TAKE 1 [facility] in 9-15 TABLET BY ity of ([place]) 00:00: MOUTH [place] 10 mg 00 DAILY. [facility] TAMSULOSIN 2021-0 Yes [id number] .4mg TAKE 1 [facility] 0.4 mg 24 9-15 CAPSULE BY ity of hr capsule 00:00: MOUTH [place] 00 DAILY Medical Branch ALLERGY 2021-0 Yes [id number] TAKE 1 [facility] ers RELIEF, 9-15 TABLET BY ity of LORATADINE, 00:00: MOUTH [place] 10 mg 00 DAILY Medical tablet Branch COLCHICINE 2021-0 Yes [id number] TAKE 1 [facility] 0.6 mg 9-15 TABLET BY it[facility] of tablet 00:00: MOUTH [place] 00 DAILY Medical Branch empaglifloz 2021-0 Yes [id number] 10mg TAKE 1 [facility] in 9-15 TABLET BY ity of ([place]) 00:00: MOUTH [place] 10 mg 00 DAILY. Medical Branch TAMSULOSIN 2021-0 Yes [id number] .4mg TAKE 1 [facility] 0.4 mg 24 9-15 CAPSULE BY ity of hr capsule 00:00: MOUTH [place] 00 DAILY Medical Branch ALLERGY 2021-0 Yes [id number] TAKE 1 [facility] ers RELIEF, 9-15 TABLET BY ity of LORATADINE, 00:00: MOUTH [place] 10 mg 00 DAILY Medical tablet Branch COLCHICINE 2021-0 Yes [id number] TAKE 1 [facility] 0.6 mg 9-15 TABLET BY ity of tablet 00:00: MOUTH [place] 00 DAILY Medical Branch empaglifloz 2021-0 Yes [id number] 10mg TAKE 1 [facility] in 9-15 TABLET BY ity of ([place]) 00:00: MOUTH [place] 10 mg 00 DAILY. Medical Branch TAMSULOSIN 2021-0 Yes [id number] .4mg TAKE 1 [facility] 0.4 mg 24 9-15 CAPSULE BY ity of hr capsule 00:00: MOUTH [place] 00 DAILY Medical Branch ALLERGY 2021-0 Yes [id number] TAKE 1 [facility] ers RELIEF, 9-15 TABLET BY ity of LORATADINE, 00:00: MOUTH [place] 10 mg 00 DAILY Medical tablet Branch COLCHICINE 2021-0 Yes [id number] TAKE 1 [facility] 0.6 mg 9-15 TABLET BY ity of tablet 00:00: MOUTH [place] 00 DAILY Medical Branch empaglifloz 2021-0 Yes [id number] 10mg TAKE 1 [facility] in 9-15 TABLET BY ity of ([place]) 00:00: MOUTH [place] 10 mg 00 DAILY. Medical Branch TAMSULOSIN 2021-0 Yes [id number] .4mg TAKE 1 [facility] 0.4 mg 24 9-15 CAPSULE BY ity of hr capsule 00:00: MOUTH [place] 00 DAILY Medical Branch ALLERGY 2021-0 Yes [id number] TAKE 1 [facility] ers RELIEF, 9-15 TABLET BY ity of LORATADINE, 00:00: MOUTH [place] 10 mg 00 DAILY Medical tablet Branch COLCHICINE 2021-0 Yes [id number] TAKE 1 [facility] 0.6 mg 9-15 TABLET BY ity of tablet 00:00: MOUTH [place] 00 DAILY Medical Branch empaglifloz 2021-0 Yes [id number] 10mg TAKE 1 [facility] in 9-15 TABLET BY ity of ([place]) 00:00: MOUTH [place] 10 mg 00 DAILY. Medical Branch TAMSULOSIN 2021-0 Yes [id number] .4mg TAKE 1 [facility] 0.4 mg 24 9-15 CAPSULE BY ity of hr capsule 00:00: MOUTH [place] 00 DAILY Medical Branch ALLERGY 2021-0 Yes [id number] TAKE 1 [facility] ers RELIEF, 9-15 TABLET BY ity of LORATADINE, 00:00: MOUTH [place] 10 mg 00 DAILY Medical tablet Branch COLCHICINE 2021-0 Yes [id number] TAKE 1 [facility] 0.6 mg 9-15 TABLET BY ity of tablet 00:00: MOUTH [place] 00 DAILY Medical Branch TAMSULOSIN 2022-0 Yes [id number] .4mg TAKE 1 [facility] 0.4 mg 24 9-15 CAPSULE BY ity of hr capsule 00:00: MOUTH [place] DAILY Medical Branch ALLERGY 2021-0 Yes [id number] TAKE 1 [facility] ers RELIEF, 9-15 TABLET BY ity of LORATADINE, 00:00: MOUTH [place] 10 mg DAILY Medical tablet Branch COLCHICINE 0 Yes [id number] TAKE 1 [facility] 0.6 mg 9-15 TABLET BY ity of tablet 00:00: MOUTH [place] DAILY Medical Branch TAMSULOSIN Yes [id number] .4mg TAKE 1 [facility] 0.4 mg 24 9-15 CAPSULE BY ity of hr capsule 00:00: MOUTH [place] DAILY Medical Branch ALLERGY 2021-0 Yes [id number] TAKE 1 [facility] ers RELIEF, 9-15 TABLET BY ity of LORATADINE, 00:00: MOUTH [place] 10 mg DAILY Medical tablet Branch COLCHICINE 0 Yes [id number] TAKE 1 [facility] 0.6 mg 9-15 TABLET BY ity of tablet 00:00: MOUTH [place] DAILY Medical Branch TAMSULOSIN Yes [id number] .4mg TAKE 1 [facility] 0.4 mg 24 9-15 CAPSULE BY ity of hr capsule 00:00: MOUTH [place] DAILY Medical Branch ALLERGY 2021-0 Yes [id number] TAKE 1 [facility] ers RELIEF, 9-15 TABLET BY ity of LORATADINE, 00:00: MOUTH [place] 10 mg DAILY Medical tablet Branch COLCHICINE 0 Yes [id number] TAKE 1 [facility] 0.6 mg 9-15 TABLET BY ity of tablet 00:00: MOUTH [place] DAILY Medical Branch TAMSULOSIN 0 Yes [id number] .4mg TAKE 1 [facility] 0.4 mg 24 9-15 CAPSULE BY ity of hr capsule 00:00: MOUTH [place] DAILY Medical Branch ALLERGY 2021-0 Yes [id number] TAKE 1 [facility] ers RELIEF, 9-15 TABLET BY ity of LORATADINE, 00:00: MOUTH [place] 10 mg 00 DAILY Medical tablet Branch COLCHICINE 0 Yes [id number] TAKE 1 [facility] 0.6 mg 9-15 TABLET BY ity of tablet 00:00: MOUTH [place] DAILY Medical Branch TAMSULOSIN 0 Yes [id number] .4mg TAKE 1 [facility] 0.4 mg 24 9-15 CAPSULE BY ity of hr capsule 00:00: MOUTH [place] DAILY Medical Branch ALLERGY 2021-0 Yes [id number] TAKE 1 [facility] ers RELIEF, 9-15 TABLET BY ity of LORATADINE, 00:00: MOUTH [place] 10 mg DAILY Medical tablet Branch COLCHICINE 2021-0 Yes [id number] TAKE 1 [facility] 0.6 mg 9-15 TABLET BY ity of tablet 00:00: MOUTH DAILY Medical Branch TAMSULOSIN 2021-0 Yes [id number] .4mg TAKE 1 [facility] 0.4 mg 24 9-15 CAPSULE BY ity of hr capsule 00:00: MOUTH DAILY Medical Branch ALLERGY 2021-0 Yes [id number] TAKE 1 [facility] ers RELIEF, 9-15 TABLET BY ity of LORATADINE, 00:00: MOUTH [place] 10 mg DAILY Medical tablet Branch COLCHICINE 2021-0 Yes [id number] TAKE 1 [facility] 0.6 mg 9-15 TABLET BY ity of tablet 00:00: MOUTH DAILY Medical Branch TAMSULOSIN 2021-0 Yes [id number] .4mg TAKE 1 [facility] 0.4 mg 24 9-15 CAPSULE BY ity of hr capsule 00:00: MOUTH DAILY Medical Branch ALLERGY 2021-0 Yes [id number] TAKE 1 [facility] ers RELIEF, 9-15 TABLET BY ity of LORATADINE, 00:00: MOUTH [place] 10 mg DAILY Medical tablet Branch COLCHICINE 2021-0 Yes [id number] TAKE 1 [facility] 0.6 mg 9-15 TABLET BY ity of tablet 00:00: MOUTH DAILY Medical Branch TAMSULOSIN 2021-0 Yes [id number] .4mg TAKE 1 [facility] 0.4 mg 24 9-15 CAPSULE BY ity of hr capsule 00:00: MOUTH DAILY Medical Branch ALLERGY 2021-0 Yes [id number] TAKE 1 [facility] ers RELIEF, 9-15 TABLET BY ity of LORATADINE, 00:00: MOUTH [place] 10 mg DAILY Medical tablet Branch COLCHICINE 2021-0 Yes [id number] TAKE 1 [facility] 0.6 mg 9-15 TABLET BY ity of tablet 00:00: MOUTH [place] DAILY Medical Branch TAMSULOSIN 2021-0 Yes [id number] .4mg TAKE 1 [facility] 0.4 mg 24 9-15 CAPSULE BY ity of hr capsule 00:00: MOUTH DAILY Medical Branch TAMSULOSIN 2021-0 Yes [id number] .4mg TAKE 1 [facility] 0.4 mg 24 9-15 CAPSULE BY ity of hr capsule 00:00: MOUTH DAILY Medical Branch TAMSULOSIN 2021-0 Yes [id number] .4mg TAKE 1 [facility] 0.4 mg 24 9-15 CAPSULE BY ity of hr capsule 00:00: DAILY Medical Branch TAMSULOSIN 2021-0 Yes [id number] .4mg TAKE 1 [facility] 0.4 mg 24 9-15 CAPSULE BY ity of hr capsule 00:00: MOUTH DAILY Medical Branch TAMSULOSIN 2021-0 Yes [id number] .4mg TAKE 1 [facility] 0.4 mg 24 9-15 CAPSULE BY ity of hr capsule 00:00: DAILY Medical Branch TAMSULOSIN 2021-0 Yes [id number] .4mg TAKE 1 [facility] 0.4 mg 24 9-15 CAPSULE BY ity of hr capsule 00:00: DAILY Medical Branch TAMSULOSIN 2021-0 Yes [id number] .4mg TAKE 1 [facility] 0.4 mg 24 9-15 CAPSULE BY ity of hr capsule 00:00: DAILY Medical Branch TAMSULOSIN 2021-0 Yes [id number] .4mg TAKE 1 [facility] 0.4 mg 24 9-15 CAPSULE BY ity of hr capsule 00:00: [facility] DAILY Medical Branch TAMSULOSIN 2021-0 Yes [id number] .4mg TAKE 1 [facility] 0.4 mg 24 9-15 CAPSULE BY ity of hr capsule 00:00: DAILY Medical Branch TAMSULOSIN 2021-0 Yes [id number] .4mg TAKE 1 [facility] 0.4 mg 24 9-15 CAPSULE BY ity of hr capsule 00:00: [facility] DAILY Medical Branch TAMSULOSIN 2021-0 Yes [id number] .4mg TAKE 1 [facility] 0.4 mg 24 9-15 CAPSULE BY ity of hr capsule 00:00: [facility] DAILY Medical Branch TAMSULOSIN 2021-0 Yes [id number] .4mg TAKE 1 [facility] 0.4 mg 24 9-15 CAPSULE BY ity of hr capsule 00:00: DAILY Medical Branch TAMSULOSIN 2021-0 Yes [id number] .4mg TAKE 1 [facility] 0.4 mg 24 9-15 CAPSULE BY ity of hr capsule 00:00: MOUTH [place] 00 DAILY Medical Branch TAMSULOSIN 0 Yes [id number] .4mg TAKE 1 [facility] 0.4 mg 24 9-15 CAPSULE BY ity of hr capsule 00:00: MOUTH [place] DAILY Medical Branch TAMSULOSIN 2021-0 Yes [id number] .4mg TAKE 1 [facility] 0.4 mg 24 9-15 CAPSULE BY ity of hr capsule 00:00: MOUTH [place] DAILY Medical Branch TAMSULOSIN 2021-0 Yes [id number] .4mg TAKE 1 [facility] 0.4 mg 24 9-15 CAPSULE BY ity of hr capsule 00:00: MOUTH [place] DAILY Medical Branch TAMSULOSIN 0 Yes [id number] .4mg TAKE 1 [facility] 0.4 mg 24 9-15 CAPSULE BY ity of hr capsule 00:00: MOUTH [place] DAILY Medical Branch TAMSULOSIN 2021-0 2021- No [id number] .4mg TAKE 1 [facility] 0.4 mg 24 9-15 11-30 CAPSULE BY ity of hr capsule 00:00: 00:00 MOUTH [place] 00 :00 DAILY Medical Branch ALLERGY 0 2021- No [id number] TAKE 1 [facility] vers RELIEF, 9-15 10-24 TABLET BY ity of LORATADINE, 00:00: 00:00 MOUTH [place] 10 mg 00 :00 DAILY Medical tablet Branch COLCHICINE 2021-0 2021- No [id number] TAKE 1 [facility] 0.6 mg 9-15 10-24 TABLET BY ity of tablet 00:00: 00:00 MOUTH [place] 00 :00 DAILY Medical Branch ALLERGY 2021-0 2021- No [id number] TAKE 1 [facility] vers RELIEF, 9-15 10-24 TABLET BY ity of LORATADINE, 00:00: 00:00 MOUTH [place] 10 mg 00 :00 DAILY Medical tablet Branch COLCHICINE 2021-0 2021- No [id number] TAKE 1 [facility] 0.6 mg 9-15 10-24 TABLET BY ity of tablet 00:00: 00:00 MOUTH [place] 00 :00 DAILY Medical Branch ALLERGY 2021-0 2021- No [id number] TAKE 1 [facility] vers RELIEF, 9-15 10-24 TABLET BY ity of LORATADINE, 00:00: 00:00 MOUTH [place] 10 mg 00 :00 DAILY Medical tablet Branch COLCHICINE 2021- No [id number] TAKE 1 [facility] 0.6 mg 9-15 10-24 TABLET BY ity of tablet 00:00: 00:00 MOUTH [place] 00 :00 DAILY Medical Branch empaglifloz 2021- No [id number] 10mg TAKE 1 [facility] in 9-15 10-05 TABLET BY ity of ([place]) 00:00: 00:00 MOUTH [place] 10 mg 00 :00 DAILY. Medical Branch empaglifloz 2021- No [id number] 10mg TAKE 1 [facility] in 9-15 10-05 TABLET BY ity of ([place]) 00:00: 00:00 MOUTH [place] 10 mg 00 :00 DAILY. Medical Branch albuterol Yes [id number] 2{puff} Inhale 2 [facility] 90 9-12 Puffs ity of mcg/actuati 00:00: every 6 [place] on inhaler 00 (six) Medical hours as Branch needed for Wheezing or Shortness of Breath. benzonatate Yes [id number] Take 1-2 Univers (TESSALON 9-12 capsules ity of PERLES) 100 00:00: three [place] mg capsule 00 times a Medica l day as Branch needed for cough. inhalat.spa Yes [id number] 1{each} 1 Each [facility] cing 9-12 every 6 ity of dev,large 00:00: (six) [place] mask 00 hours as Medical (BREATHERIT needed for Br anch E Other SPACER-MASK (Shortness ,ADULT) of breath; Spcr use as directed with inhaler). May substitute molnupiravi Yes [id number] 800mg Take 4 [facility] r 200 mg 9-12 capsules ity of capsule 00:00: by mouth [place] 00 every 12 Medical (twelve) Branch hours. albuterol Yes [id number] 2{puff} Inhale 2 [facility] 90 9-12 Puffs ity of mcg/actuati 00:00: every 6 [place] on inhaler 00 (six) Medical hours as Branch needed for Wheezing or Shortness of Breath. benzonatate Yes [id number] Take 1-2 [facility] (TESSALON 9-12 capsules ity of PERLES) 100 00:00: three [place] mg capsule 00 times a Medica l day as Branch needed for cough. inhalat.spa Yes [id number] 1{each} 1 Each [facility] cing 9-12 every 6 ity of dev,large 00:00: (six) [place] mask 00 hours as Medical (BREATHERIT needed for Br anch E Other SPACER-MASK (Shortness ,ADULT) of breath; Spcr use as directed with inhaler). May substitute molnupiravi 2021-0 Yes [id number] 800mg Take 4 [facility] r 200 mg 9-12 capsules ity of capsule 00:00: by mouth [place] 00 every 12 Medical (twelve) Branch hours. albuterol Yes [id number] 2{puff} Inhale 2 [facility] 90 9-12 Puffs ity of mcg/actuati 00:00: every 6 [place] on inhaler 00 (six) Medical hours as Branch needed for Wheezing or Shortness of Breath. benzonatate Yes [id number] Take 1-2 [facility] (TESSALON 9-12 capsules ity of PERLES) 100 00:00: three [place] mg capsule 00 times a Medica l day as Branch needed for cough. inhalat.spa Yes [id number] 1{each} 1 Each [facility] cing 9-12 every 6 ity of dev,large 00:00: (six) [place] mask 00 hours as Medical (BREATHERIT needed for Br anch E Other SPACER-MASK (Shortness ,ADULT) of breath; Spcr use as directed with inhaler). May substitute molnupiravi 2021-0 Yes [id number] 800mg Take 4 [facility] r 200 mg 9-12 capsules ity of capsule 00:00: by mouth [place] 00 every 12 Medical (twelve) Branch hours. albuterol Yes [id number] 2{puff} Inhale 2 [facility] 90 9-12 Puffs ity of mcg/actuati 00:00: every 6 [place] on inhaler 00 (six) Medical hours as Branch needed for Wheezing or Shortness of Breath. benzonatate 0 Yes [id number] Take 1-2 [facility] (TESSALON 9-12 capsules ity of PERLES) 100 00:00: three [place] mg capsule 00 times a Medica l day as Branch needed for cough. inhalat.spa Yes [id number] 1{each} 1 Each [facility] cing 9-12 every 6 ity of dev,large 00:00: (six) [place] mask 00 hours as Medical (BREATHERIT needed for Br anch E Other SPACER-MASK (Shortness ,ADULT) of breath; Spcr use as directed with inhaler). May substitute molnupiravi 2021-0 Yes [id number] 800mg Take 4 [facility] r 200 mg 9-12 capsules ity of capsule 00:00: by mouth [place] 00 every 12 Medical (twelve) Branch hours. albuterol 0 Yes [id number] 2{puff} Inhale 2 [facility] 90 9-12 Puffs ity of mcg/actuati 00:00: every 6 [place] on inhaler 00 (six) Medical hours as Branch needed for Wheezing or Shortness of Breath. benzonatate 0 Yes [id number] Take 1-2 [facility] (TESSALON 9-12 capsules ity of PERLES) 100 00:00: three [place] mg capsule 00 times a Medica l day as Branch needed for cough. inhalat.spa Yes [id number] 1{each} 1 Each [facility] cing 9-12 every 6 ity of dev,large 00:00: (six) [place] mask 00 hours as Medical (BREATHERIT needed for Br anch E Other SPACER-MASK (Shortness ,ADULT) of breath; Spcr use as directed with inhaler). May substitute molnupiravi 2021-0 Yes [id number] 800mg Take 4 [facility] r 200 mg 9-12 capsules ity of capsule 00:00: by mouth [place] 00 every 12 Medical (twelve) Branch hours. albuterol 0 Yes [id number] 2{puff} Inhale 2 [facility] 90 9-12 Puffs ity of mcg/actuati 00:00: every 6 [place] on inhaler 00 (six) Medical hours as Branch needed for Wheezing or Shortness of Breath. benzonatate 2021-0 Yes [id number] Take 1-2 [facility] (TESSALON 9-12 capsules ity of PERLES) 100 00:00: three [place] mg capsule 00 times a Medica l day as Branch needed for cough. inhalat.spa 0 Yes [id number] 1{each} 1 Each [facility] cing 9-12 every 6 ity of dev,large 00:00: (six) [place] mask 00 hours as Medical (BREATHERIT needed for Br anch E Other SPACER-MASK (Shortness ,ADULT) of breath; Spcr use as directed with inhaler). May substitute molnupiravi 2021-0 Yes [id number] 800mg Take 4 [facility] r 200 mg 9-12 capsules ity of capsule 00:00: by mouth [place] 00 every 12 Medical (twelve) Branch hours. albuterol Yes [id number] 2{puff} Inhale 2 [facility] 90 9-12 Puffs ity of mcg/actuati 00:00: every 6 [place] on inhaler 00 (six) Medical hours as Branch needed for Wheezing or Shortness of Breath. benzonatate 0 Yes [id number] Take 1-2 [facility] (TESSALON 9-12 capsules ity of PERLES) 100 00:00: three [place] mg capsule 00 times a Medica l day as Branch needed for cough. inhalat.spa 0 Yes [id number] 1{each} 1 Each [facility] cing 9-12 every 6 ity of dev,large 00:00: (six) [place] mask 00 hours as Medical (BREATHERIT needed for Br anch E Other SPACER-MASK (Shortness ,ADULT) of breath; Spcr use as directed with inhaler). May substitute molnupiravi 2021-0 Yes [id number] 800mg Take 4 [facility] r 200 mg 9-12 capsules ity of capsule 00:00: by mouth [place] 00 every 12 Medical (twelve) Branch hours. albuterol 0 Yes [id number] 2{puff} Inhale 2 [facility] 90 9-12 Puffs ity of mcg/actuati 00:00: every 6 [place] on inhaler 00 (six) Medical hours as Branch needed for Wheezing or Shortness of Breath. benzonatate 0 Yes [id number] Take 1-2 [facility] (TESS[place]ON 9-12 capsules ity of PERLES) 100 00:00: three [place] mg capsule 00 times a Medica l day as Branch needed for cough. inhalat.spa 0 Yes [id number] 1{each} 1 Each [facility] cing 9-12 every 6 ity of dev,large 00:00: (six) [place] mask 00 hours as Medical (BREATHERIT needed for Br anch E Other SPACER-MASK (Shortness ,ADULT) of breath; Spcr use as directed with inhaler). May substitute molnupiravi 2021-0 Yes [id number] 800mg Take 4 [facility] r 200 mg 9-12 capsules ity of capsule 00:00: by mouth [place] 00 every 12 Medical (twelve) Branch hours. albuterol 0 Yes [id number] 2{puff} Inhale 2 [facility] 90 9-12 Puffs ity of mcg/actuati 00:00: every 6 [place] on inhaler 00 (six) Medical hours as Branch needed for Wheezing or Shortness of Breath. benzonatate 0 Yes [id number] Take 1-2 [facility] ([place]ESS[place]ON 9-12 capsules ity of PERLES) 100 00:00: three [place] mg capsule 00 times a Medica l day as Branch needed for cough. inhalat.spa Yes [id number] 1{each} 1 Each [facility] cing 9-12 every 6 ity of dev,large 00:00: (six) [place] mask 00 hours as Medical (BREATHERIT needed for Br anch E Other SPACER-MASK (Shortness ,ADULT) of breath; Spcr use as directed with inhaler). May substitute molnupiravi 2021-0 Yes [id number] 800mg Take 4 [facility] r 200 mg 9-12 capsules ity of capsule 00:00: by mouth [place] 00 every 12 Medical (twelve) Branch hours. albuterol Yes [id number] 2{puff} Inhale 2 [facility] 90 9-12 Puffs ity of mcg/actuati 00:00: every 6 [place] on inhaler 00 (six) Medical hours as Branch needed for Wheezing or Shortness of Breath. benzonatate 0 Yes [id number] Take 1-2 [facility] ([place]ESS[place]ON 9-12 capsules ity of PERLES) 100 00:00: three [place] mg capsule 00 times a Medica l day as Branch needed for cough. inhalat.spa 0 Yes [id number] 1{each} 1 Each [facility] cing 9-12 every 6 ity of dev,large 00:00: (six) [place] mask 00 hours as Medical (BREATHERIT needed for Br anch E Other SPACER-MASK (Shortness ,ADULT) of breath; Spcr use as directed with inhaler). May substitute molnupiravi 2021-0 Yes [id number] 800mg Take 4 [facility] r 200 mg 9-12 capsules ity of capsule 00:00: by mouth [place] 00 every 12 Medical (twelve) Branch hours. albuterol Yes [id number] 2{puff} Inhale 2 [facility] 90 9-12 Puffs ity of mcg/actuati 00:00: every 6 [place] on inhaler 00 (six) Medical hours as Branch needed for Wheezing or Shortness of Breath. benzonatate Yes [id number] Take 1-2 [facility] ([place]ESS[place]ON 9-12 capsules ity of PERLES) 100 00:00: three [place] mg capsule 00 times a Medica l day as Branch needed for cough. inhalat.spa Yes [id number] 1{each} 1 Each [facility] cing 9-12 every 6 ity of dev,large 00:00: (six) [place] mask 00 hours as Medical (BREATHERIT needed for Br anch E Other SPACER-MASK (Shortness ,ADULT) of breath; Spcr use as directed with inhaler). May substitute molnupiravi Yes [id number] 800mg Take 4 [facility] r 200 mg 9-12 capsules ity of capsule 00:00: by mouth [place] 00 every 12 Medical (twelve) Branch hours. albuterol Yes [id number] 2{puff} Inhale 2 [facility] 90 9-12 Puffs ity of mcg/actuati 00:00: every 6 [place] on inhaler 00 (six) Medical hours as Branch needed for Wheezing or Shortness of Breath. benzonatate Yes [id number] Take 1-2 [facility] ([place]ESS[place]ON 9-12 capsules ity of PERLES) 100 00:00: three [place] mg capsule 00 times a Medica l day as Branch needed for cough. inhalat.spa Yes [id number] 1{each} 1 Each [facility] cing 9-12 every 6 ity of dev,large 00:00: (six) [place] mask 00 hours as Medical (BREATHERIT needed for Br anch E Other SPACER-MASK (Shortness ,ADULT) of breath; Spcr use as directed with inhaler). May substitute molnupiravi 2021-0 Yes [id number] 800mg Take 4 [facility] r 200 mg 9-12 capsules ity of capsule 00:00: by mouth [place] 00 every 12 Medical (twelve) Branch hours. albuterol Yes [id number] 2{puff} Inhale 2 [facility] 90 9-12 Puffs ity of mcg/actuati 00:00: every 6 [place] on inhaler 00 (six) Medical hours as Branch needed for Wheezing or Shortness of Breath. benzonatate Yes [id number] Take 1-2 [facility] ([place]ESS[place]ON 9-12 capsules ity of PERLES) 100 00:00: three [place] mg capsule 00 times a Medica l day as Branch needed for cough. inhalat.spa Yes [id number] 1{each} 1 Each [facility] cing 9-12 every 6 ity of dev,large 00:00: (six) [place] mask 00 hours as Medical (BREATHERIT needed for Br anch E Other SPACER-MASK (Shortness ,ADULT) of breath; Spcr use as directed with inhaler). May substitute molnupiravi Yes [id number] 800mg Take 4 [facility] r 200 mg 9-12 capsules ity of capsule 00:00: by mouth [place] every 12 Medical (twelve) Branch hours. albuterol Yes [id number] 2{puff} Inhale 2 [facility] 90 9-12 Puffs ity of mcg/actuati 00:00: every 6 [place] on inhaler 00 (six) Medical hours as Branch needed for Wheezing or Shortness of Breath. benzonatate Yes [id number] Take 1-2 [facility] ([place]ESS[place]ON 9-12 capsules ity of PERLES) 100 00:00: three [place] mg capsule 00 times a Medica l day as Branch needed for cough. inhalat.spa Yes [id number] 1{each} 1 Each [facility] cing 9-12 every 6 ity of dev,large 00:00: (six) [place] mask 00 hours as Medical (BREATHERIT needed for Br anch E Other SPACER-MASK (Shortness ,ADULT) of breath; Spcr use as directed with inhaler). May substitute molnupiravi 2021-0 Yes [id number] 800mg Take 4 [facility] r 200 mg 9-12 capsules ity of capsule 00:00: by mouth [place] 00 every 12 Medical (twelve) Branch hours. albuterol Yes [id number] 2{puff} Inhale 2 [facility] 90 9-12 Puffs ity of mcg/actuati 00:00: every 6 [place] on inhaler 00 (six) Medical hours as Branch needed for Wheezing or Shortness of Breath. benzonatate Yes [id number] Take 1-2 [facility] ([place] 9-12 capsules ity of PERLES) 100 00:00: three [place] mg capsule 00 times a Medica l day as Branch needed for cough. inhalat.spa Yes [id number] 1{each} 1 Each [facility] cing 9-12 every 6 ity of dev,large 00:00: (six) [place] mask 00 hours as Medical (BREATHERIT needed for Br anch E Other SPACER-MASK (Shortness ,ADULT) of breath; Spcr use as directed with inhaler). May substitute molnupiravi Yes [id number] 800mg Take 4 [facility] r 200 mg 9-12 capsules ity of capsule 00:00: by mouth [place] 00 every 12 Medical (twelve) Branch hours. albuterol Yes [id number] 2{puff} Inhale 2 [facility] 90 9-12 Puffs ity of mcg/actuati 00:00: every 6 [place] on inhaler 00 (six) Medical hours as Branch needed for Wheezing or Shortness of Breath. benzonatate Yes [id number] Take 1-2 [facility] ([place]ESS[place]ON 9-12 capsules ity of PERLES) 100 00:00: three [place] mg capsule 00 times a Medica l day as Branch needed for cough. inhalat.spa Yes [id number] 1{each} 1 Each [facility] cing 9-12 every 6 ity of dev,large 00:00: (six) [place] mask 00 hours as Medical (BREATHERIT needed for Br anch E Other SPACER-MASK (Shortness ,ADULT) of breath; Spcr use as directed with inhaler). May substitute molnupiravi 0 Yes [id number] 800mg Take 4 [facility] r 200 mg 9-12 capsules ity of capsule 00:00: by mouth [place] 00 every 12 Medical (twelve) Branch hours. albuterol Yes [id number] 2{puff} Inhale 2 [facility] 90 9-12 Puffs ity of mcg/actuati 00:00: every 6 [place] on inhaler 00 (six) Medical hours as Branch needed for Wheezing or Shortness of Breath. benzonatate Yes [id number] Take 1-2 [facility] ([place] 9-12 capsules ity of PERLES) 100 00:00: three [place] mg capsule 00 times a Medica l day as Branch needed for cough. inhalat.spa Yes [id number] 1{each} 1 Each [facility] cing 9-12 every 6 ity of dev,large 00:00: (six) [place] mask 00 hours as Medical (BREATHERIT needed for Br anch E Other SPACER-MASK (Shortness ,ADULT) of breath; Spcr use as directed with inhaler). May substitute molnupiravi Yes [id number] 800mg Take 4 [facility] r 200 mg 9-12 capsules ity of capsule 00:00: by mouth [place] 00 every 12 Medical (twelve) Branch hours. albuterol Yes [id number] 2{puff} Inhale 2 [facility] 90 9-12 Puffs ity of mcg/actuati 00:00: every 6 [place] on inhaler 00 (six) Medical hours as Branch needed for Wheezing or Shortness of Breath. benzonatate Yes [id number] Take 1-2 [facility] ([facility] 9-12 capsules ity of PERLES) 100 00:00: three [place] mg capsule 00 times a Medica l day as Branch needed for cough. inhalat.spa Yes [id number] 1{each} 1 Each [facility] cing 9-12 every 6 ity of dev,large 00:00: (six) [place] mask 00 hours as Medical (BREATHERIT needed for Br anch E Other SPACER-MASK (Shortness ,ADULT) of breath; Spcr use as directed with inhaler). May substitute molnupiravi 2021-0 Yes [id number] 800mg Take 4 [facility] r 200 mg 9-12 capsules ity of capsule 00:00: by mouth [place] 00 every 12 Medical (twelve) Branch hours. albuterol 0 Yes [id number] 2{puff} Inhale 2 [facility] 90 9-12 Puffs ity of mcg/actuati 00:00: every 6 [place] as on inhaler 00 (six) Medical hours as Branch needed for Wheezing or Shortness of Breath. benzonatate Yes [id number] Take 1-2 [facility] ([facility]ESS[place]ON 9-12 capsules ity of PERLES) 100 00:00: three [place] mg capsule 00 times a Medica l day as Branch needed for cough. inhalat.spa Yes [id number] 1{each} 1 Each [facility] cing 9-12 every 6 ity of dev,large 00:00: (six) [place] mask 00 hours as Medical (BREATHERIT needed for Br anch E Other SPACER-MASK (Shortness ,ADULT) of breath; Spcr use as directed with inhaler). May substitute molnupiravi 2021-0 Yes [id number] 800mg Take 4 [facility] r 200 mg 9-12 capsules ity of capsule 00:00: by mouth [place] 00 every 12 Medical (twelve) Branch hours. albuterol Yes [id number] 2{puff} Inhale 2 [facility] 90 9-12 Puffs ity of mcg/actuati 00:00: every 6 [place] as on inhaler 00 (six) Medical hours as Branch needed for Wheezing or Shortness of Breath. benzonatate Yes [id number] Take 1-2 [facility] ([facility]ESS[place] 9-12 capsules ity of PERLES) 100 00:00: three [place] mg capsule 00 times a Medica l day as Branch needed for cough. inhalat.spa Yes [id number] 1{each} 1 Each [facility] cing 9-12 every 6 ity of dev,large 00:00: (six) [place] mask 00 hours as Medical (BREATHERIT needed for Br anch E Other SPACER-MASK (Shortness ,ADULT) of breath; Spcr use as directed with inhaler). May substitute molnupiravi 2021-0 Yes [id number] 800mg Take 4 [facility] r 200 mg 9-12 capsules ity of capsule 00:00: by mouth [place] 00 every 12 Medical (twelve) Branch hours. albuterol 2021-0 Yes [id number] 2{puff} Inhale 2 [facility] 90 9-12 Puffs ity of mcg/actuati 00:00: every 6 [place] as on inhaler 00 (six) Medical hours as Branch needed for Wheezing or Shortness of Breath. benzonatate 2021-0 Yes [id number] Take 1-2 [facility] ([facility]ESS[place] 9-12 capsules ity of PERLES) 100 00:00: three [place] mg capsule 00 times a Medica l day as Branch needed for cough. inhalat.spa Yes [id number] 1{each} 1 Each [facility] cing 9-12 every 6 ity of dev,large 00:00: (six) [place] mask 00 hours as Medical (BREATHERIT needed for Br anch E Other SPACER-MASK (Shortness ,ADULT) of breath; Spcr use as directed with inhaler). May substitute molnupiravi 2021-0 Yes [id number] 800mg Take 4 [facility] r 200 mg 9-12 capsules ity of capsule 00:00: by mouth [place] 00 every 12 Medical (twelve) Branch hours. albuterol Yes [id number] 2{puff} Inhale 2 [facility] 90 9-12 Puffs ity of mcg/actuati 00:00: every 6 [place] as on inhaler 00 (six) Medical hours as Branch needed for Wheezing or Shortness of Breath. benzonatate Yes [id number] Take 1-2 [facility] ([place] 9-12 capsules ity of PERLES) 100 00:00: three [place] mg capsule 00 times a Medica l day as Branch needed for cough. inhalat.spa Yes [id number] 1{each} 1 Each [facility] cing 9-12 every 6 ity of dev,large 00:00: (six) [place] mask 00 hours as Medical (BREATHERIT needed for Br anch E Other SPACER-MASK (Shortness ,ADULT) of breath; Spcr use as directed with inhaler). May substitute molnupiravi 2021-0 Yes [id number] 800mg Take 4 [facility] r 200 mg 9-12 capsules ity of capsule 00:00: by mouth [place] 00 every 12 Medical (twelve) Branch hours. albuterol 0 Yes [id number] 2{puff} Inhale 2 [facility] 90 9-12 Puffs ity of mcg/actuati 00:00: every 6 [place] as on inhaler 00 (six) Medical hours as Branch needed for Wheezing or Shortness of Breath. benzonatate 2021-0 Yes [id number] Take 1-2 [facility] ([place] 9-12 capsules ity of PERLES) 100 00:00: three [place] mg capsule 00 times a Medica l day as Branch needed for cough. inhalat.spa Yes [id number] 1{each} 1 Each [facility] cing 9-12 every 6 ity of dev,large 00:00: (six) [place] mask 00 hours as Medical (BREATHERIT needed for Br anch E Other SPACER-MASK (Shortness ,ADULT) of breath; Spcr use as directed with inhaler). May substitute molnupiravi 2021-0 Yes [id number] 800mg Take 4 [facility] r 200 mg 9-12 capsules ity of capsule 00:00: by mouth [place] 00 every 12 Medical (twelve) Branch hours. albuterol Yes [id number] 2{puff} Inhale 2 [facility] 90 9-12 Puffs ity of mcg/actuati 00:00: every 6 [place] on inhaler 00 (six) Medical hours as Branch needed for Wheezing or Shortness of Breath. benzonatate 0 Yes [id number] Take 1-2 [facility] ([place]ESS[place] 9-12 capsules ity of PERLES) 100 00:00: three [place] mg capsule 00 times a Medica l day as Branch needed for cough. inhalat.spa Yes [id number] 1{each} 1 Each [facility] cing 9-12 every 6 ity of dev,large 00:00: (six) [place] mask 00 hours as Medical (BREATHERIT needed for Br anch E Other SPACER-MASK (Shortness ,ADULT) of breath; Spcr use as directed with inhaler). May substitute molnupiravi 2021-0 Yes [id number] 800mg Take 4 [facility] r 200 mg 9-12 capsules ity of capsule 00:00: by mouth [place] 00 every 12 Medical (twelve) Branch hours. albuterol 0 Yes [id number] 2{puff} Inhale 2 [facility] 90 9-12 Puffs ity of mcg/actuati 00:00: every 6 [place] on inhaler 00 (six) Medical hours as Branch needed for Wheezing or Shortness of Breath. benzonatate 2021-0 Yes [id number] Take 1-2 [facility] ([place] 9-12 capsules ity of PERLES) 100 00:00: three [place] mg capsule 00 times a Medica l day as Branch needed for cough. inhalat.spa 0 Yes [id number] 1{each} 1 Each [facility] cing 9-12 every 6 ity of dev,large 00:00: (six) [place] mask 00 hours as Medical (BREATHERIT needed for Br anch E Other SPACER-MASK (Shortness ,ADULT) of breath; Spcr use as directed with inhaler). May substitute molnupiravi 2021-0 Yes [id number] 800mg Take 4 [facility] r 200 mg 9-12 capsules ity of capsule 00:00: by mouth [place] 00 every 12 Medical (twelve) Branch hours. albuterol 0 Yes [id number] 2{puff} Inhale 2 [facility] 90 9-12 Puffs ity of mcg/actuati 00:00: every 6 [place] on inhaler 00 (six) Medical hours as Branch needed for Wheezing or Shortness of Breath. benzonatate 0 Yes [id number] Take 1-2 [facility] ([place] 9-12 capsules ity of PERLES) 100 00:00: three [place] mg capsule 00 times a Medica l day as Branch needed for cough. inhalat.spa 0 Yes [id number] 1{each} 1 Each [facility] cing 9-12 every 6 ity of dev,large 00:00: (six) [place] mask 00 hours as Medical (BREATHERIT needed for Br anch E Other SPACER-MASK (Shortness ,ADULT) of breath; Spcr use as directed with inhaler). May substitute molnupiravi 2021-0 Yes [id number] 800mg Take 4 [facility] r 200 mg 9-12 capsules ity of capsule 00:00: by mouth [place] 00 every 12 Medical (twelve) Branch hours. albuterol 0 Yes [id number] 2{puff} Inhale 2 [facility] 90 9-12 Puffs ity of mcg/actuati 00:00: every 6 [place] as on inhaler 00 (six) Medical hours as Branch needed for Wheezing or Shortness of Breath. benzonatate 0 Yes [id number] Take 1-2 [facility] ([place] 9-12 capsules ity of PERLES) 100 00:00: three [place] mg capsule 00 times a Medica l day as Branch needed for cough. inhalat.spa 0 Yes [id number] 1{each} 1 Each [facility] cing 9-12 every 6 ity of dev,large 00:00: (six) [place] mask 00 hours as Medical (BREATHERIT needed for Br anch E Other SPACER-MASK (Shortness ,ADULT) of breath; Spcr use as directed with inhaler). May substitute molnupiravi 2021-0 Yes [id number] 800mg Take 4 [facility] r 200 mg 9-12 capsules ity of capsule 00:00: by mouth [place] 00 every 12 Medical (twelve) Branch hours. albuterol Yes [id number] 2{puff} Inhale 2 [facility] 90 9-12 Puffs ity of mcg/actuati 00:00: every 6 [place] as on inhaler 00 (six) Medical hours as Branch needed for Wheezing or Shortness of Breath. benzonatate 0 Yes [id number] Take 1-2 [facility] ([place] 9-12 capsules ity of PERLES) 100 00:00: three [place] mg capsule 00 times a Medica l day as Branch needed for cough. inhalat.spa Yes [id number] 1{each} 1 Each [facility] cing 9-12 every 6 ity of dev,large 00:00: (six) [place] mask 00 hours as Medical (BREATHERIT needed for Br anch E Other SPACER-MASK (Shortness ,ADULT) of breath; Spcr use as directed with inhaler). May substitute molnupiravi 2021-0 Yes [id number] 800mg Take 4 [facility] r 200 mg 9-12 capsules ity of capsule 00:00: by mouth [place] 00 every 12 Medical (twelve) Branch hours. albuterol Yes [id number] 2{puff} Inhale 2 [facility] 90 9-12 Puffs ity of mcg/actuati 00:00: every 6 [place] as on inhaler 00 (six) Medical hours as Branch needed for Wheezing or Shortness of Breath. benzonatate 0 Yes [id number] Take 1-2 [facility] ([place] 9-12 capsules ity of PERLES) 100 00:00: three [place] mg capsule 00 times a Medica l day as Branch needed for cough. inhalat.spa 0 Yes [id number] 1{each} 1 Each [facility] cing 9-12 every 6 ity of dev,large 00:00: (six) [place] mask 00 hours as Medical (BREATHERIT needed for Br anch E Other SPACER-MASK (Shortness ,ADULT) of breath; Spcr use as directed with inhaler). May substitute molnupiravi 2021-0 Yes [id number] 800mg Take 4 [facility] r 200 mg 9-12 capsules ity of capsule 00:00: by mouth [place] 00 every 12 Medical (twelve) Branch hours. albuterol 0 Yes [id number] 2{puff} Inhale 2 [facility] 90 9-12 Puffs ity of mcg/actuati 00:00: every 6 [place] as on inhaler 00 (six) Medical hours as Branch needed for Wheezing or Shortness of Breath. benzonatate 0 Yes [id number] Take 1-2 [facility] ([place] 9-12 capsules ity of PERLES) 100 00:00: three [place] mg capsule 00 times a Medica l day as Branch needed for cough. inhalat.spa 0 Yes [id number] 1{each} 1 Each [facility] cing 9-12 every 6 ity of dev,large 00:00: (six) [place] mask 00 hours as Medical (BREATHERIT needed for Br anch E Other SPACER-MASK (Shortness ,ADULT) of breath; Spcr use as directed with inhaler). May substitute molnupiravi 2021-0 Yes [id number] 800mg Take 4 [facility] r 200 mg 9-12 capsules ity of capsule 00:00: by mouth [place] 00 every 12 Medical (twelve) Branch hours. albuterol 0 Yes [id number] 2{puff} Inhale 2 [facility] 90 9-12 Puffs ity of mcg/actuati 00:00: every 6 [place] as on inhaler 00 (six) Medical hours as Branch needed for Wheezing or Shortness of Breath. benzonatate 0 Yes [id number] Take 1-2 [facility] ([place] 9-12 capsules ity of PERLES) 100 00:00: three [place] mg capsule 00 times a Medica l day as Branch needed for cough. inhalat.spa 0 Yes [id number] 1{each} 1 Each [facility] cing 9-12 every 6 ity of dev,large 00:00: (six) [place] mask 00 hours as Medical (BREATHERIT needed for Br anch E Other SPACER-MASK (Shortness ,ADULT) of breath; Spcr use as directed with inhaler). May substitute molnupiravi 2021-0 Yes [id number] 800mg Take 4 [facility] r 200 mg 9-12 capsules ity of capsule 00:00: by mouth [place] 00 every 12 Medical (twelve) Branch hours. albuterol Yes [id number] 2{puff} Inhale 2 [facility] 90 9-12 Puffs ity of mcg/actuati 00:00: every 6 [place] as on inhaler 00 (six) Medical hours as Branch needed for Wheezing or Shortness of Breath. benzonatate Yes [id number] Take 1-2 [facility] ([place] 9-12 capsules ity of PERLES) 100 00:00: three [place] mg capsule 00 times a Medica l day as Branch needed for cough. inhalat.spa Yes [id number] 1{each} 1 Each [facility] cing 9-12 every 6 ity of dev,large 00:00: (six) [place] mask 00 hours as Medical (BREATHERIT needed for Br anch E Other SPACER-MASK (Shortness ,ADULT) of breath; Spcr use as directed with inhaler). May substitute molnupiravi Yes [id number] 800mg Take 4 [facility] r 200 mg 9-12 capsules ity of capsule 00:00: by mouth [place] every 12 Medical (twelve) Branch hours. albuterol Yes [id number] 2{puff} Inhale 2 [facility] 90 9-12 Puffs ity of mcg/actuati 00:00: every 6 [place] as on inhaler 00 (six) Medical hours as Branch needed for Wheezing or Shortness of Breath. benzonatate Yes [id number] Take 1-2 [facility] ([place] 9-12 capsules ity of PERLES) 100 00:00: three [place] mg capsule 00 times a Medica l day as Branch needed for cough. inhalat.spa Yes [id number] 1{each} 1 Each [facility] cing 9-12 every 6 ity of dev,large 00:00: (six) [place] mask 00 hours as Medical (BREATHERIT needed for Br anch E Other SPACER-MASK (Shortness ,ADULT) of breath; Spcr use as directed with inhaler). May substitute albuterol Yes [id number] 2{puff} Inhale 2 [facility] 90 9-12 Puffs ity of mcg/actuati 00:00: every 6 [place] on inhaler 00 (six) Medical hours as Branch needed for Wheezing or Shortness of Breath. benzonatate Yes [id number] Take 1-2 [facility] ([place] 9-12 capsules ity of PERLES) 100 00:00: three [place] mg capsule 00 times a Medica l day as Branch needed for cough. inhalat.spa Yes [id number] 1{each} 1 Each [facility] cing 9-12 every 6 ity of dev,large 00:00: (six) [place] mask 00 hours as Medical (BREATHERIT needed for Br anch E Other SPACER-MASK (Shortness ,ADULT) of breath; Spcr use as directed with inhaler). May substitute albuterol Yes [id number] 2{puff} Inhale 2 [facility] 90 9-12 Puffs ity of mcg/actuati 00:00: every 6 [place] as on inhaler 00 (six) Medical hours as Branch needed for Wheezing or Shortness of Breath. benzonatate Yes [id number] Take 1-2 [facility] ([place] 9-12 capsules ity of PERLES) 100 00:00: three [place] mg capsule 00 times a Medica l day as Branch needed for cough. inhalat.spa Yes [id number] 1{each} 1 Each [facility] cing 9-12 every 6 ity of dev,large 00:00: (six) [place] mask 00 hours as Medical (BREATHERIT needed for Br anch E Other SPACER-MASK (Shortness ,ADULT) of breath; Spcr use as directed with inhaler). May substitute albuterol Yes [id number] 2{puff} Inhale 2 [facility] 90 9-12 Puffs ity of mcg/actuati 00:00: every 6 [place] as on inhaler 00 (six) Medical hours as Branch needed for Wheezing or Shortness of Breath. benzonatate Yes [id number] Take 1-2 [facility] ([place] 9-12 capsules ity of PERLES) 100 00:00: three [place] mg capsule 00 times a Medica l day as Branch needed for cough. inhalat.spa Yes [id number] 1{each} 1 Each [facility] cing 9-12 every 6 ity of dev,large 00:00: (six) [place] mask 00 hours as Medical (BREATHERIT needed for Br anch E Other SPACER-MASK (Shortness ,ADULT) of breath; Spcr use as directed with inhaler). May substitute albuterol 2021-0 Yes [id number] 2{puff} Inhale 2 [facility] 90 9-12 Puffs ity of mcg/actuati 00:00: every 6 [place] as on inhaler 00 (six) Medical hours as Branch needed for Wheezing or Shortness of Breath. benzonatate 0 Yes [id number] Take 1-2 [facility] ([place] 9-12 capsules ity of PERLES) 100 00:00: three [place] mg capsule 00 times a Medica l day as Branch needed for cough. inhalat.spa Yes [id number] 1{each} 1 Each [facility] cing 9-12 every 6 ity of dev,large 00:00: (six) [place] mask 00 hours as Medical (BREATHERIT needed for Br anch E Other SPACER-MASK (Shortness ,ADULT) of breath; Spcr use as directed with inhaler). May substitute albuterol 2021-0 Yes [id number] 2{puff} Inhale 2 [facility] 90 9-12 Puffs ity of mcg/actuati 00:00: every 6 [place] on inhaler 00 (six) Medical hours as Branch needed for Wheezing or Shortness of Breath. benzonatate Yes [id number] Take 1-2 [facility] ([place] 9-12 capsules ity of PERLES) 100 00:00: three [place] mg capsule 00 times a Medica l day as Branch needed for cough. inhalat.spa Yes [id number] 1{each} 1 Each [facility] cing 9-12 every 6 ity of dev,large 00:00: (six) [place] mask 00 hours as Medical (BREATHERIT needed for Br anch E Other SPACER-MASK (Shortness ,ADULT) of breath; Spcr use as directed with inhaler). May substitute albuterol 2021- Yes [id number] 2{puff} Inhale 2 [facility] 90 9-12 Puffs ity of mcg/actuati 00:00: every 6 [place] on inhaler 00 (six) Medical hours as Branch needed for Wheezing or Shortness of Breath. benzonatate 2021-0 Yes [id number] Take 1-2 [facility] ([place] 9-12 capsules ity of PERLES) 100 00:00: three [place] mg capsule 00 times a Medica l day as Branch needed for cough. inhalat.spa Yes [id number] 1{each} 1 Each [facility] cing 9-12 every 6 ity of dev,large 00:00: (six) [place] mask 00 hours as Medical (BREATHERIT needed for Br anch E Other SPACER-MASK (Shortness ,ADULT) of breath; Spcr use as directed with inhaler). May substitute albuterol Yes [id number] 2{puff} Inhale 2 [facility] 90 9-12 Puffs ity of mcg/actuati 00:00: every 6 [place] on inhaler 00 (six) Medical hours as Branch needed for Wheezing or Shortness of Breath. benzonatate Yes [id number] Take 1-2 [facility] ([place] 9-12 capsules ity of PERLES) 100 00:00: three [place] mg capsule 00 times a Medica l day as Branch needed for cough. inhalat.spa Yes [id number] 1{each} 1 Each [facility] cing 9-12 every 6 ity of dev,large 00:00: (six) [place] mask 00 hours as Medical (BREATHERIT needed for Br anch E Other SPACER-MASK (Shortness ,ADULT) of breath; Spcr use as directed with inhaler). May substitute albuterol Yes [id number] 2{puff} Inhale 2 [facility] 90 9-12 Puffs ity of mcg/actuati 00:00: every 6 [place] on inhaler 00 (six) Medical hours as Branch needed for Wheezing or Shortness of Breath. benzonatate Yes [id number] Take 1-2 [facility] ([place] 9-12 capsules ity of PERLES) 100 00:00: three [place] mg capsule 00 times a Medica l day as Branch needed for cough. inhalat.spa Yes [id number] 1{each} 1 Each [facility] cing 9-12 every 6 ity of dev,large 00:00: (six) [place] mask 00 hours as Medical (BREATHERIT needed for Br anch E Other SPACER-MASK (Shortness ,ADULT) of breath; Spcr use as directed with inhaler). May substitute albuterol Yes [id number] 2{puff} Inhale 2 [facility] 90 9-12 Puffs ity of mcg/actuati 00:00: every 6 [place] on inhaler 00 (six) Medical hours as Branch needed for Wheezing or Shortness of Breath. benzonatate Yes [id number] Take 1-2 [facility] ([place] 9-12 capsules ity of PERLES) 100 00:00: three [place] mg capsule 00 times a Medica l day as Branch needed for cough. inhalat.spa Yes [id number] 1{each} 1 Each [facility] cing 9-12 every 6 ity of dev,large 00:00: (six) [place] mask 00 hours as Medical (BREATHERIT needed for Br anch E Other SPACER-MASK (Shortness ,ADULT) of breath; Spcr use as directed with inhaler). May substitute albuterol Yes [id number] 2{puff} Inhale 2 [facility] 90 9-12 Puffs ity of mcg/actuati 00:00: every 6 [place] on inhaler 00 (six) Medical hours as Branch needed for Wheezing or Shortness of Breath. benzonatate Yes [id number] Take 1-2 [facility] ([place] 9-12 capsules ity of PERLES) 100 00:00: three [place] mg capsule 00 times a Medica l day as Branch needed for cough. inhalat.spa Yes [id number] 1{each} 1 Each [facility] cing 9-12 every 6 ity of dev,large 00:00: (six) [place] mask 00 hours as Medical (BREATHERIT needed for Br anch E Other SPACER-MASK (Shortness ,ADULT) of breath; Spcr use as directed with inhaler). May substitute albuterol Yes [id number] 2{puff} Inhale 2 [facility] 90 9-12 Puffs ity of mcg/actuati 00:00: every 6 [place] on inhaler 00 (six) Medical hours as Branch needed for Wheezing or Shortness of Breath. benzonatate Yes [id number] Take 1-2 [facility] ([place] 9-12 capsules ity of PERLES) 100 00:00: three [place] mg capsule 00 times a Medica l day as Branch needed for cough. inhalat.spa Yes [id number] 1{each} 1 Each [facility] cing 9-12 every 6 ity of dev,large 00:00: (six) [place] mask 00 hours as Medical (BREATHERIT needed for Br anch E Other SPACER-MASK (Shortness ,ADULT) of breath; Spcr use as directed with inhaler). May substitute albuterol Yes [id number] 2{puff} Inhale 2 [facility] 90 9-12 Puffs ity of mcg/actuati 00:00: every 6 [place] on inhaler 00 (six) Medical hours as Branch needed for Wheezing or Shortness of Breath. benzonatate Yes [id number] Take 1-2 [facility] ([place] 9-12 capsules ity of PERLES) 100 00:00: three [place] mg capsule 00 times a Medica l day as Branch needed for cough. inhalat.spa Yes [id number] 1{each} 1 Each [facility] cing 9-12 every 6 ity of dev,large 00:00: (six) [place] mask 00 hours as Medical (BREATHERIT needed for Br anch E Other SPACER-MASK (Shortness ,ADULT) of breath; Spcr use as directed with inhaler). May substitute albuterol Yes [id number] 2{puff} Inhale 2 [facility] 90 9-12 Puffs ity of mcg/actuati 00:00: every 6 [place] on inhaler 00 (six) Medical hours as Branch needed for Wheezing or Shortness of Breath. benzonatate Yes [id number] Take 1-2 [facility] ([place] 9-12 capsules ity of PERLES) 100 00:00: three [place] mg capsule 00 times a Medica l day as Branch needed for cough. inhalat.spa Yes [id number] 1{each} 1 Each [facility] cing 9-12 every 6 ity of dev,large 00:00: (six) [place] mask 00 hours as Medical (BREATHERIT needed for Br anch E Other SPACER-MASK (Shortness ,ADULT) of breath; Spcr use as directed with inhaler). May substitute albuterol Yes [id number] 2{puff} Inhale 2 [facility] 90 9-12 Puffs ity of mcg/actuati 00:00: every 6 [place] on inhaler 00 (six) Medical hours as Branch needed for Wheezing or Shortness of Breath. benzonatate Yes [id number] Take 1-2 [facility] ([place] 9-12 capsules ity of PERLES) 100 00:00: three [place] mg capsule 00 times a Medica l day as Branch needed for cough. inhalat.spa Yes [id number] 1{each} 1 Each [facility] cing 9-12 every 6 ity of dev,large 00:00: (six) [place] mask 00 hours as Medical (BREATHERIT needed for Br anch E Other SPACER-MASK (Shortness ,ADULT) of breath; Spcr use as directed with inhaler). May substitute albuterol Yes [id number] 2{puff} Inhale 2 [facility] 90 9-12 Puffs ity of mcg/actuati 00:00: every 6 [place] on inhaler 00 (six) Medical hours as Branch needed for Wheezing or Shortness of Breath. benzonatate Yes [id number] Take 1-2 [facility] ([place] 9-12 capsules ity of PERLES) 100 00:00: three [place] mg capsule 00 times a Medica l day as Branch needed for cough. inhalat.spa Yes [id number] 1{each} 1 Each [facility] cing 9-12 every 6 ity of dev,large 00:00: (six) [place] mask 00 hours as Medical (BREATHERIT needed for Br anch E Other SPACER-MASK (Shortness ,ADULT) of breath; Spcr use as directed with inhaler). May substitute albuterol Yes [id number] 2{puff} Inhale 2 [facility] 90 9-12 Puffs ity of mcg/actuati 00:00: every 6 [place] on inhaler 00 (six) Medical hours as Branch needed for Wheezing or Shortness of Breath. benzonatate Yes [id number] Take 1-2 [facility] ([place] 9-12 capsules ity of PERLES) 100 00:00: three [place] mg capsule 00 times a Medica l day as Branch needed for cough. inhalat.spa Yes [id number] 1{each} 1 Each [facility] cing 9-12 every 6 ity of dev,large 00:00: (six) [place] mask 00 hours as Medical (BREATHERIT needed for Br anch E Other SPACER-MASK (Shortness ,ADULT) of breath; Spcr use as directed with inhaler). May substitute albuterol Yes [id number] 2{puff} Inhale 2 [facility] 90 9-12 Puffs ity of mcg/actuati 00:00: every 6 [place] on inhaler 00 (six) Medical hours as Branch needed for Wheezing or Shortness of Breath. benzonatate Yes [id number] Take 1-2 [facility] ([place] 9-12 capsules ity of PERLES) 100 00:00: three [place] mg capsule 00 times a Medica l day as Branch needed for cough. inhalat.spa Yes [id number] 1{each} 1 Each [facility] cing 9-12 every 6 ity of dev,large 00:00: (six) [place] mask 00 hours as Medical (BREATHERIT needed for Br anch E Other SPACER-MASK (Shortness ,ADULT) of breath; Spcr use as directed with inhaler). May substitute albuterol Yes [id number] 2{puff} Inhale 2 [facility] 90 9-12 Puffs ity of mcg/actuati 00:00: every 6 [place] on inhaler 00 (six) Medical hours as Branch needed for Wheezing or Shortness of Breath. benzonatate Yes [id number] Take 1-2 [facility] ([place]ESS[place] 9-12 capsules ity of PERLES) 100 00:00: three [place] mg capsule 00 times a Medica l day as Branch needed for cough. inhalat.spa Yes [id number] 1{each} 1 Each [facility] cing 9-12 every 6 ity of dev,large 00:00: (six) [place] mask 00 hours as Medical (BREATHERIT needed for Br anch E Other SPACER-MASK (Shortness ,ADULT) of breath; Spcr use as directed with inhaler). May substitute albuterol Yes [id number] 2{puff} Inhale 2 [facility] 90 9-12 Puffs ity of mcg/actuati 00:00: every 6 [place] on inhaler 00 (six) Medical hours as Branch needed for Wheezing or Shortness of Breath. benzonatate Yes [id number] Take 1-2 [facility] ([place] 9-12 capsules ity of PERLES) 100 00:00: three [place] mg capsule 00 times a Medica l day as Branch needed for cough. inhalat.spa Yes [id number] 1{each} 1 Each [facility] cing 9-12 every 6 ity of dev,large 00:00: (six) [place] mask 00 hours as Medical (BREATHERIT needed for Br anch E Other SPACER-MASK (Shortness ,ADULT) of breath; Spcr use as directed with inhaler). May substitute albuterol 2021-0 Yes [id number] 2{puff} Inhale 2 [facility] 90 9-12 Puffs ity of mcg/actuati 00:00: every 6 [place] as on inhaler 00 (six) Medical hours as Branch needed for Wheezing or Shortness of Breath. benzonatate 0 Yes [id number] Take 1-2 [facility] ([place] 9-12 capsules ity of PERLES) 100 00:00: three [place] mg capsule 00 times a Medica l day as Branch needed for cough. inhalat.spa 0 Yes [id number] 1{each} 1 Each [facility] cing 9-12 every 6 ity of dev,large 00:00: (six) [place] mask 00 hours as Medical (BREATHERIT needed for Br anch E Other SPACER-MASK (Shortness ,ADULT) of breath; Spcr use as directed with inhaler). May substitute albuterol 2021-0 Yes [id number] 2{puff} Inhale 2 [facility] 90 9-12 Puffs ity of mcg/actuati 00:00: every 6 [place] on inhaler 00 (six) Medical hours as Branch needed for Wheezing or Shortness of Breath. benzonatate 2021-0 Yes [id number] Take 1-2 [facility] ([place] 9-12 capsules ity of PERLES) 100 00:00: three [place] mg capsule 00 times a Medica l day as Branch needed for cough. inhalat.spa 0 Yes [id number] 1{each} 1 Each [facility] cing 9-12 every 6 ity of dev,large 00:00: (six) [place] mask 00 hours as Medical (BREATHERIT needed for Br anch E Other SPACER-MASK (Shortness ,ADULT) of breath; Spcr use as directed with inhaler). May substitute albuterol 2021-0 Yes [id number] 2{puff} Inhale 2 [facility] 90 9-12 Puffs ity of mcg/actuati 00:00: every 6 [place] on inhaler 00 (six) Medical hours as Branch needed for Wheezing or Shortness of Breath. benzonatate Yes [id number] Take 1-2 [facility] ([place] 9-12 capsules ity of PERLES) 100 00:00: three [place] mg capsule 00 times a Medica l day as Branch needed for cough. inhalat.spa Yes [id number] 1{each} 1 Each [facility] cing 9-12 every 6 ity of dev,large 00:00: (six) [place] mask 00 hours as Medical (BREATHERIT needed for Br anch E Other SPACER-MASK (Shortness ,ADULT) of breath; Spcr use as directed with inhaler). May substitute albuterol Yes [id number] 2{puff} Inhale 2 [facility] 90 9-12 Puffs ity of mcg/actuati 00:00: every 6 [place] on inhaler 00 (six) Medical hours as Branch needed for Wheezing or Shortness of Breath. benzonatate Yes [id number] Take 1-2 [facility] ([place] 9-12 capsules ity of PERLES) 100 00:00: three [place] mg capsule 00 times a Medica l day as Branch needed for cough. inhalat.spa Yes [id number] 1{each} 1 Each [facility] cing 9-12 every 6 ity of dev,large 00:00: (six) [place] mask 00 hours as Medical (BREATHERIT needed for Br anch E Other SPACER-MASK (Shortness ,ADULT) of breath; Spcr use as directed with inhaler). May substitute albuterol Yes [id number] 2{puff} Inhale 2 [facility] 90 9-12 Puffs ity of mcg/actuati 00:00: every 6 [place] on inhaler 00 (six) Medical hours as Branch needed for Wheezing or Shortness of Breath. benzonatate Yes [id number] Take 1-2 [facility] ([place] 9-12 capsules ity of PERLES) 100 00:00: three [place] mg capsule 00 times a Medica l day as Branch needed for cough. inhalat.spa Yes [id number] 1{each} 1 Each [facility] cing 9-12 every 6 ity of dev,large 00:00: (six) [place] mask 00 hours as Medical (BREATHERIT needed for Br anch E Other SPACER-MASK (Shortness ,ADULT) of breath; Spcr use as directed with inhaler). May substitute albuterol Yes [id number] 2{puff} Inhale 2 [facility] 90 9-12 Puffs ity of mcg/actuati 00:00: every 6 [place] on inhaler 00 (six) Medical hours as Branch needed for Wheezing or Shortness of Breath. benzonatate Yes [id number] Take 1-2 [facility] ([place] 9-12 capsules ity of PERLES) 100 00:00: three [place] mg capsule 00 times a Medica l day as Branch needed for cough. inhalat.spa Yes [id number] 1{each} 1 Each [facility] cing 9-12 every 6 ity of dev,large 00:00: (six) [place] mask 00 hours as Medical (BREATHERIT needed for Br anch E Other SPACER-MASK (Shortness ,ADULT) of breath; Spcr use as directed with inhaler). May substitute albuterol Yes [id number] 2{puff} Inhale 2 [facility] 90 9-12 Puffs ity of mcg/actuati 00:00: every 6 [place] on inhaler 00 (six) Medical hours as Branch needed for Wheezing or Shortness of Breath. benzonatate Yes [id number] Take 1-2 [facility] ([place] 9-12 capsules ity of PERLES) 100 00:00: three [place] mg capsule 00 times a Medica l day as Branch needed for cough. inhalat.spa Yes [id number] 1{each} 1 Each [facility] cing 9-12 every 6 ity of dev,large 00:00: (six) [place] mask 00 hours as Medical (BREATHERIT needed for Br anch E Other SPACER-MASK (Shortness ,ADULT) of breath; Spcr use as directed with inhaler). May substitute albuterol Yes [id number] 2{puff} Inhale 2 [facility] 90 9-12 Puffs ity of mcg/actuati 00:00: every 6 [place] on inhaler 00 (six) Medical hours as Branch needed for Wheezing or Shortness of Breath. benzonatate 0 Yes [id number] Take 1-2 [facility] ([place] 9-12 capsules ity of PERLES) 100 00:00: three [place] mg capsule 00 times a Medica l day as Branch needed for cough. inhalat.spa Yes [id number] 1{each} 1 Each [facility] cing 9-12 every 6 ity of dev,large 00:00: (six) [place] mask 00 hours as Medical (BREATHERIT needed for Br anch E Other SPACER-MASK (Shortness ,ADULT) of breath; Spcr use as directed with inhaler). May substitute albuterol Yes [id number] 2{puff} Inhale 2 [facility] 90 9-12 Puffs ity of mcg/actuati 00:00: every 6 [place] on inhaler 00 (six) Medical hours as Branch needed for Wheezing or Shortness of Breath. benzonatate Yes [id number] Take 1-2 [facility] ([place] 9-12 capsules ity of PERLES) 100 00:00: three [place] mg capsule 00 times a Medica l day as Branch needed for cough. inhalat.spa Yes [id number] 1{each} 1 Each [facility] cing 9-12 every 6 ity of dev,large 00:00: (six) [place] mask 00 hours as Medical (BREATHERIT needed for Br anch E Other SPACER-MASK (Shortness ,ADULT) of breath; Spcr use as directed with inhaler). May substitute albuterol Yes [id number] 2{puff} Inhale 2 [facility] 90 9-12 Puffs ity of mcg/actuati 00:00: every 6 [place] on inhaler 00 (six) Medical hours as Branch needed for Wheezing or Shortness of Breath. benzonatate Yes [id number] Take 1-2 [facility] ([place] 9-12 capsules ity of PERLES) 100 00:00: three [place] mg capsule 00 times a Medica l day as Branch needed for cough. inhalat.spa Yes [id number] 1{each} 1 Each [facility] cing 9-12 every 6 ity of dev,large 00:00: (six) [place] mask 00 hours as Medical (BREATHERIT needed for Br anch E Other SPACER-MASK (Shortness ,ADULT) of breath; Spcr use as directed with inhaler). May substitute albuterol Yes [id number] 2{puff} Inhale 2 [facility] 90 9-12 Puffs ity of mcg/actuati 00:00: every 6 [place] on inhaler 00 (six) Medical hours as Branch needed for Wheezing or Shortness of Breath. benzonatate Yes [id number] Take 1-2 [facility] ([place] 9-12 capsules ity of PERLES) 100 00:00: three [place] mg capsule 00 times a Medica l day as Branch needed for cough. inhalat.spa Yes [id number] 1{each} 1 Each [facility] cing 9-12 every 6 ity of dev,large 00:00: (six) [place] mask 00 hours as Medical (BREATHERIT needed for Br anch E Other SPACER-MASK (Shortness ,ADULT) of breath; Spcr use as directed with inhaler). May substitute albuterol Yes [id number] 2{puff} Inhale 2 [facility] 90 9-12 Puffs ity of mcg/actuati 00:00: every 6 [place] on inhaler 00 (six) Medical hours as Branch needed for Wheezing or Shortness of Breath. benzonatate Yes [id number] Take 1-2 [facility] ([place] 9-12 capsules ity of PERLES) 100 00:00: three [place] mg capsule 00 times a Medica l day as Branch needed for cough. inhalat.spa Yes [id number] 1{each} 1 Each [facility] cing 9-12 every 6 ity of dev,large 00:00: (six) [place] mask 00 hours as Medical (BREATHERIT needed for Br anch E Other SPACER-MASK (Shortness ,ADULT) of breath; Spcr use as directed with inhaler). May substitute albuterol Yes [id number] 2{puff} Inhale 2 [facility] 90 9-12 Puffs ity of mcg/actuati 00:00: every 6 [place] on inhaler 00 (six) Medical hours as Branch needed for Wheezing or Shortness of Breath. benzonatate Yes [id number] Take 1-2 [facility] ([place] 9-12 capsules ity of PERLES) 100 00:00: three [place] mg capsule 00 times a Medica l day as Branch needed for cough. inhalat.spa Yes [id number] 1{each} 1 Each [facility] cing 9-12 every 6 ity of dev,large 00:00: (six) [place] mask 00 hours as Medical (BREATHERIT needed for Br anch E Other SPACER-MASK (Shortness ,ADULT) of breath; Spcr use as directed with inhaler). May substitute albuterol Yes [id number] 2{puff} Inhale 2 [facility] 90 9-12 Puffs ity of mcg/actuati 00:00: every 6 [place] on inhaler 00 (six) Medical hours as Branch needed for Wheezing or Shortness of Breath. benzonatate Yes [id number] Take 1-2 [facility] ([place] 9-12 capsules ity of PERLES) 100 00:00: three [place] mg capsule 00 times a Medica l day as Branch needed for cough. inhalat.spa Yes [id number] 1{each} 1 Each [facility] cing 9-12 every 6 ity of dev,large 00:00: (six) [place] mask 00 hours as Medical (BREATHERIT needed for Br anch E Other SPACER-MASK (Shortness ,ADULT) of breath; Spcr use as directed with inhaler). May substitute albuterol Yes [id number] 2{puff} Inhale 2 [facility] 90 9-12 Puffs ity of mcg/actuati 00:00: every 6 [place] on inhaler 00 (six) Medical hours as Branch needed for Wheezing or Shortness of Breath. benzonatate Yes [id number] Take 1-2 [facility] ([place] 9-12 capsules ity of PERLES) 100 00:00: three [place] mg capsule 00 times a Medica l day as Branch needed for cough. inhalat.spa 0 Yes [id number] 1{each} 1 Each [facility] cing 9-12 every 6 ity of dev,large 00:00: (six) [place] mask 00 hours as Medical (BREATHERIT needed for Br anch E Other SPACER-MASK (Shortness ,ADULT) of breath; Spcr use as directed with inhaler). May substitute albuterol 0 Yes [id number] 2{puff} Inhale 2 [facility] 90 9-12 Puffs ity of mcg/actuati 00:00: every 6 [place] on inhaler 00 (six) Medical hours as Branch needed for Wheezing or Shortness of Breath. benzonatate Yes [id number] Take 1-2 [facility] ([place] 9-12 capsules ity of PERLES) 100 00:00: three [place] mg capsule 00 times a Medica l day as Branch needed for cough. inhalat.spa Yes [id number] 1{each} 1 Each [facility] cing 9-12 every 6 ity of dev,large 00:00: (six) [place] mask 00 hours as Medical (BREATHERIT needed for Br anch E Other SPACER-MASK (Shortness ,ADULT) of breath; Spcr use as directed with inhaler). May substitute albuterol Yes [id number] 2{puff} Inhale 2 [facility] 90 9-12 Puffs ity of mcg/actuati 00:00: every 6 [place] on inhaler 00 (six) Medical hours as Branch needed for Wheezing or Shortness of Breath. benzonatate Yes [id number] Take 1-2 [facility] ([place] 9-12 capsules ity of PERLES) 100 00:00: three [place] mg capsule 00 times a Medica l day as Branch needed for cough. inhalat.spa Yes [id number] 1{each} 1 Each [facility] cing 9-12 every 6 ity of dev,large 00:00: (six) [place] mask 00 hours as Medical (BREATHERIT needed for Br anch E Other SPACER-MASK (Shortness ,ADULT) of breath; Spcr use as directed with inhaler). May substitute albuterol Yes [id number] 2{puff} Inhale 2 [facility] 90 9-12 Puffs ity of mcg/actuati 00:00: every 6 [place] on inhaler 00 (six) Medical hours as Branch needed for Wheezing or Shortness of Breath. benzonatate Yes [id number] Take 1-2 [facility] ([place] 9-12 capsules ity of PERLES) 100 00:00: three [place] mg capsule 00 times a Medica l day as Branch needed for cough. inhalat.spa 0 Yes [id number] 1{each} 1 Each [facility] cing 9-12 every 6 ity of dev,large 00:00: (six) [place] mask 00 hours as Medical (BREATHERIT needed for Br anch E Other SPACER-MASK (Shortness ,ADULT) of breath; Spcr use as directed with inhaler). May substitute albuterol Yes [id number] 2{puff} Inhale 2 [facility] 90 9-12 Puffs ity of mcg/actuati 00:00: every 6 [place] on inhaler 00 (six) Medical hours as Branch needed for Wheezing or Shortness of Breath. benzonatate Yes [id number] Take 1-2 [facility] ([place] 9-12 capsules ity of PERLES) 100 00:00: three [place] mg capsule 00 times a Medica l day as Branch needed for cough. inhalat.spa Yes [id number] 1{each} 1 Each [facility] cing 9-12 every 6 ity of dev,large 00:00: (six) [place] mask 00 hours as Medical (BREATHERIT needed for Br anch E Other SPACER-MASK (Shortness ,ADULT) of breath; Spcr use as directed with inhaler). May substitute albuterol Yes [id number] 2{puff} Inhale 2 [facility] 90 9-12 Puffs ity of mcg/actuati 00:00: every 6 [place] on inhaler 00 (six) Medical hours as Branch needed for Wheezing or Shortness of Breath. benzonatate Yes [id number] Take 1-2 [facility] ([place] 9-12 capsules ity of PERLES) 100 00:00: three [place] mg capsule 00 times a Medica l day as Branch needed for cough. inhalat.spa Yes [id number] 1{each} 1 Each [facility] cing 9-12 every 6 ity of dev,large 00:00: (six) [place] mask 00 hours as Medical (BREATHERIT needed for Br anch E Other SPACER-MASK (Shortness ,ADULT) of breath; Spcr use as directed with inhaler). May substitute albuterol Yes [id number] 2{puff} Inhale 2 [facility] 90 9-12 Puffs ity of mcg/actuati 00:00: every 6 [place] on inhaler 00 (six) Medical hours as Branch needed for Wheezing or Shortness of Breath. benzonatate Yes [id number] Take 1-2 [facility] ([place] 9-12 capsules ity of PERLES) 100 00:00: three [place] mg capsule 00 times a Medica l day as Branch needed for cough. inhalat.spa Yes [id number] 1{each} 1 Each [facility] cing 9-12 every 6 ity of dev,large 00:00: (six) [place] mask 00 hours as Medical (BREATHERIT needed for Br anch E Other SPACER-MASK (Shortness ,ADULT) of breath; Spcr use as directed with inhaler). May substitute albuterol Yes [id number] 2{puff} Inhale 2 [facility] 90 9-12 Puffs ity of mcg/actuati 00:00: every 6 [place] on inhaler 00 (six) Medical hours as Branch needed for Wheezing or Shortness of Breath. benzonatate Yes [id number] Take 1-2 [facility] ([place] 9-12 capsules ity of PERLES) 100 00:00: three [place] mg capsule 00 times a Medica l day as Branch needed for cough. inhalat.spa Yes [id number] 1{each} 1 Each [facility] cing 9-12 every 6 ity of dev,large 00:00: (six) [place] mask 00 hours as Medical (BREATHERIT needed for Br anch E Other SPACER-MASK (Shortness ,ADULT) of breath; Spcr use as directed with inhaler). May substitute albuterol Yes [id number] 2{puff} Inhale 2 [facility] 90 9-12 Puffs ity of mcg/actuati 00:00: every 6 [place] on inhaler 00 (six) Medical hours as Branch needed for Wheezing or Shortness of Breath. benzonatate 0 Yes [id number] Take 1-2 [facility] ([place] 9-12 capsules ity of PERLES) 100 00:00: three [place] mg capsule 00 times a Medica l day as Branch needed for cough. inhalat.spa Yes [id number] 1{each} 1 Each [facility] cing 9-12 every 6 ity of dev,large 00:00: (six) [place] mask 00 hours as Medical (BREATHERIT needed for Br anch E Other SPACER-MASK (Shortness ,ADULT) of breath; Spcr use as directed with inhaler). May substitute albuterol Yes [id number] 2{puff} Inhale 2 [facility] 90 9-12 Puffs ity of mcg/actuati 00:00: every 6 [place] on inhaler 00 (six) Medical hours as Branch needed for Wheezing or Shortness of Breath. benzonatate Yes [id number] Take 1-2 [facility] ([place] 9-12 capsules ity of PERLES) 100 00:00: three [place] mg capsule 00 times a Medica l day as Branch needed for cough. inhalat.spa Yes [id number] 1{each} 1 Each [facility] cing 9-12 every 6 ity of dev,large 00:00: (six) [place] mask 00 hours as Medical (BREATHERIT needed for Br anch E Other SPACER-MASK (Shortness ,ADULT) of breath; Spcr use as directed with inhaler). May substitute albuterol Yes [id number] 2{puff} Inhale 2 [facility] 90 9-12 Puffs ity of mcg/actuati 00:00: every 6 [place] on inhaler 00 (six) Medical hours as Branch needed for Wheezing or Shortness of Breath. benzonatate Yes [id number] Take 1-2 [facility] ([place] 9-12 capsules ity of PERLES) 100 00:00: three [place] mg capsule 00 times a Medica l day as Branch needed for cough. inhalat.spa Yes [id number] 1{each} 1 Each [facility] cing 9-12 every 6 ity of dev,large 00:00: (six) [place] mask 00 hours as Medical (BREATHERIT needed for Br anch E Other SPACER-MASK (Shortness ,ADULT) of breath; Spcr use as directed with inhaler). May substitute albuterol Yes [id number] 2{puff} Inhale 2 [facility] 90 9-12 Puffs ity of mcg/actuati 00:00: every 6 [place] on inhaler 00 (six) Medical hours as Branch needed for Wheezing or Shortness of Breath. benzonatate Yes [id number] Take 1-2 [facility] ([place] 9-12 capsules ity of PERLES) 100 00:00: three [place] mg capsule 00 times a Medica l day as Branch needed for cough. inhalat.spa Yes [id number] 1{each} 1 Each [facility] cing 9-12 every 6 ity of dev,large 00:00: (six) [place] mask 00 hours as Medical (BREATHERIT needed for Br anch E Other SPACER-MASK (Shortness ,ADULT) of breath; Spcr use as directed with inhaler). May substitute albuterol Yes [id number] 2{puff} Inhale 2 [facility] 90 9-12 Puffs ity of mcg/actuati 00:00: every 6 [place] on inhaler 00 (six) Medical hours as Branch needed for Wheezing or Shortness of Breath. benzonatate Yes [id number] Take 1-2 [facility] ([place] 9-12 capsules ity of PERLES) 100 00:00: three [place] mg capsule 00 times a Medica l day as Branch needed for cough. inhalat.spa Yes [id number] 1{each} 1 Each [facility] cing 9-12 every 6 ity of dev,large 00:00: (six) [place] mask 00 hours as Medical (BREATHERIT needed for Br anch E Other SPACER-MASK (Shortness ,ADULT) of breath; Spcr use as directed with inhaler). May substitute albuterol Yes [id number] 2{puff} Inhale 2 [facility] 90 9-12 Puffs ity of mcg/actuati 00:00: every 6 [place] on inhaler 00 (six) Medical hours as Branch needed for Wheezing or Shortness of Breath. benzonatate Yes [id number] Take 1-2 [facility] ([place] 9-12 capsules ity of PERLES) 100 00:00: three [place] mg capsule 00 times a Medica l day as Branch needed for cough. inhalat.spa Yes [id number] 1{each} 1 Each [facility] cing 9-12 every 6 ity of dev,large 00:00: (six) [place] mask 00 hours as Medical (BREATHERIT needed for Br anch E Other SPACER-MASK (Shortness ,ADULT) of breath; Spcr use as directed with inhaler). May substitute albuterol Yes [id number] 2{puff} Inhale 2 [facility] 90 9-12 Puffs ity of mcg/actuati 00:00: every 6 [place] [facility] on inhaler 00 (six) Medical hours as Branch needed for Wheezing or Shortness of Breath. benzonatate Yes [id number] Take 1-2 [facility] ([place] 9-12 capsules ity of PERLES) 100 00:00: three [place] mg capsule 00 times a Medica l day as Branch needed for cough. inhalat.spa Yes [id number] 1{each} 1 Each [facility] cing 9-12 every 6 ity of dev,large 00:00: (six) [place] mask 00 hours as Medical (BREATHERIT needed for Br anch E Other SPACER-MASK (Shortness ,ADULT) of breath; Spcr use as directed with inhaler). May substitute albuterol Yes [id number] 2{puff} Inhale 2 [facility] 90 9-12 Puffs ity of mcg/actuati 00:00: every 6 [place] on inhaler 00 (six) Medical hours as Branch needed for Wheezing or Shortness of Breath. benzonatate Yes [id number] Take 1-2 [facility] ([place] 9-12 capsules ity of PERLES) 100 00:00: three [place] mg capsule 00 times a Medica l day as Branch needed for cough. inhalat.spa Yes [id number] 1{each} 1 Each [facility] cing 9-12 every 6 ity of dev,large 00:00: (six) [place] mask 00 hours as Medical (BREATHERIT needed for Br anch E Other SPACER-MASK (Shortness ,ADULT) of breath; Spcr use as directed with inhaler). May substitute albuterol Yes [id number] 2{puff} Inhale 2 [facility] 90 9-12 Puffs ity of mcg/actuati 00:00: every 6 [place] on inhaler 00 (six) Medical hours as Branch needed for Wheezing or Shortness of Breath. benzonatate 0 Yes [id number] Take 1-2 [facility] ([place] 9-12 capsules ity of PERLES) 100 00:00: three [place] mg capsule 00 times a Medica l day as Branch needed for cough. inhalat.spa Yes [id number] 1{each} 1 Each [facility] cing 9-12 every 6 ity of dev,large 00:00: (six) [place] mask 00 hours as Medical (BREATHERIT needed for Br anch E Other SPACER-MASK (Shortness ,ADULT) of breath; Spcr use as directed with inhaler). May substitute albuterol Yes [id number] 2{puff} Inhale 2 [facility] 90 9-12 Puffs ity of mcg/actuati 00:00: every 6 [place] on inhaler 00 (six) Medical hours as Branch needed for Wheezing or Shortness of Breath. benzonatate Yes [id number] Take 1-2 [facility] ([place] 9-12 capsules ity of PERLES) 100 00:00: three [place] mg capsule 00 times a Medica l day as Branch needed for cough. inhalat.spa Yes [id number] 1{each} 1 Each [facility] cing 9-12 every 6 ity of dev,large 00:00: (six) [place] mask 00 hours as Medical (BREATHERIT needed for Br anch E Other SPACER-MASK (Shortness ,ADULT) of breath; Spcr use as directed with inhaler). May substitute albuterol Yes [id number] 2{puff} Inhale 2 [facility] 90 9-12 Puffs ity of mcg/actuati 00:00: every 6 [place] inhaler 00 (six) Medical hours as Branch needed for Wheezing or Shortness of Breath. benzonatate Yes [id number] Take 1-2 [facility] ([place] 9-12 capsules ity of PERLES) 100 00:00: three [place] mg capsule 00 times a Medica l day as Branch needed for cough. inhalat.spa Yes [id number] 1{each} 1 Each [facility] cing 9-12 every 6 ity of dev,large 00:00: (six) [place] mask 00 hours as Medical (BREATHERIT needed for Br anch E Other SPACER-MASK (Shortness ,ADULT) of breath; Spcr use as directed with inhaler). May substitute albuterol Yes [id number] 2{puff} Inhale 2 [facility] 90 9-12 Puffs ity of mcg/actuati 00:00: every 6 [place] inhaler 00 (six) Medical hours as Branch needed for Wheezing or Shortness of Breath. benzonatate Yes [id number] Take 1-2 [facility] ([place] 9-12 capsules ity of PERLES) 100 00:00: three [place] mg capsule 00 times a Medica l day as Branch needed for cough. inhalat.spa Yes [id number] 1{each} 1 Each [facility] cing 9-12 every 6 ity of dev,large 00:00: (six) [place] mask 00 hours as Medical (BREATHERIT needed for Br anch E Other SPACER-MASK (Shortness ,ADULT) of breath; Spcr use as directed with inhaler). May substitute albuterol Yes [id number] 2{puff} Inhale 2 [facility] 90 9-12 Puffs ity of mcg/actuati 00:00: every 6 [place] inhaler 00 (six) Medical hours as Branch needed for Wheezing or Shortness of Breath. benzonatate Yes [id number] Take 1-2 [facility] ([place] 9-12 capsules ity of PERLES) 100 00:00: three [place] mg capsule 00 times a Medica l day as Branch needed for cough. inhalat.spa Yes [id number] 1{each} 1 Each [facility] cing 9-12 every 6 ity of dev,large 00:00: (six) [place] mask 00 hours as Medical (BREATHERIT needed for Br anch E Other SPACER-MASK (Shortness ,ADULT) of breath; Spcr use as directed with inhaler). May substitute albuterol Yes [id number] 2{puff} Inhale 2 [facility] 90 9-12 Puffs ity of mcg/actuati 00:00: every 6 [place] inhaler 00 (six) Medical hours as Branch needed for Wheezing or Shortness of Breath. benzonatate Yes [id number] Take 1-2 [facility] ([place] 9-12 capsules ity of PERLES) 100 00:00: three [place] mg capsule 00 times a Medica l day as Branch needed for cough. inhalat.spa Yes [id number] 1{each} 1 Each [facility] cing 9-12 every 6 ity of dev,large 00:00: (six) [place] mask 00 hours as Medical (BREATHERIT needed for Br anch E Other SPACER-MASK (Shortness ,ADULT) of breath; Spcr use as directed with inhaler). May substitute albuterol Yes [id number] 2{puff} Inhale 2 [facility] 90 9-12 Puffs ity of mcg/actuati 00:00: every 6 [place] inhaler 00 (six) Medical hours as Branch needed for Wheezing or Shortness of Breath. benzonatate Yes [id number] Take 1-2 [facility] ([place] 9-12 capsules ity of PERLES) 100 00:00: three [place] mg capsule 00 times a Medica l day as Branch needed for cough. inhalat.spa Yes [id number] 1{each} 1 Each [facility] cing 9-12 every 6 ity of dev,large 00:00: (six) [place] mask 00 hours as Medical (BREATHERIT needed for Br anch E Other SPACER-MASK (Shortness ,ADULT) of breath; Spcr use as directed with inhaler). May substitute albuterol Yes [id number] 2{puff} Inhale 2 [facility] 90 9-12 Puffs ity of mcg/actuati 00:00: every 6 [place] inhaler 00 (six) Medical hours as Branch needed for Wheezing or Shortness of Breath. benzonatate Yes [id number] Take 1-2 [facility] ([facility] 9-12 capsules ity of PERLES) 100 00:00: three [place] mg capsule 00 times a Medica l day as Branch needed for cough. inhalat.spa Yes [id number] 1{each} 1 Each [facility] cing 9-12 every 6 ity of dev,large 00:00: (six) [place] mask 00 hours as Medical (BREATHERIT needed for Br anch E Other SPACER-MASK (Shortness ,ADULT) of breath; Spcr use as directed with inhaler). May substitute albuterol Yes [id number] 2{puff} Inhale 2 [facility] 90 9-12 Puffs ity of mcg/actuati 00:00: every 6 [place] inhaler 00 (six) Medical hours as Branch needed for Wheezing or Shortness of Breath. benzonatate Yes [id number] Take 1-2 [facility] ([facility] 9-12 capsules ity of PERLES) 100 00:00: three [place] mg capsule 00 times a Medica l day as Branch needed for cough. inhalat.spa Yes [id number] 1{each} 1 Each [facility] cing 9-12 every 6 ity of dev,large 00:00: (six) [place] mask 00 hours as Medical (BREATHERIT needed for Br anch E Other SPACER-MASK (Shortness ,ADULT) of breath; Spcr use as directed with inhaler). May substitute albuterol 2021- Yes [id number] 2{puff} Inhale 2 [facility] 90 9-12 Puffs ity of mcg/actuati 00:00: every 6 [place] as on inhaler 00 (six) Medical hours as Branch needed for Wheezing or Shortness of Breath. benzonatate Yes [id number] Take 1-2 [facility] ([place]ESSALON 9-12 capsules ity of PERLES) 100 00:00: three [place] mg capsule 00 times a Medica l day as Branch needed for cough. inhalat.spa Yes [id number] 1{each} 1 Each [facility] cing 9-12 every 6 ity of dev,large 00:00: (six) [place] mask 00 hours as Medical (BREATHERIT needed for Br anch E Other SPACER-MASK (Shortness ,ADULT) of breath; Spcr use as directed with inhaler). May substitute albuterol Yes [id number] 2{puff} Inhale 2 [facility] 90 9-12 Puffs ity of mcg/actuati 00:00: every 6 [place] on inhaler 00 (six) Medical hours as Branch needed for Wheezing or Shortness of Breath. benzonatate Yes [id number] Take 1-2 [facility] ([place]ESS[place]ON 9-12 capsules ity of PERLES) 100 00:00: three [place] mg capsule 00 times a Medica l day as Branch needed for cough. inhalat.spa Yes [id number] 1{each} 1 Each [facility] cing 9-12 every 6 ity of dev,large 00:00: (six) [place] mask 00 hours as Medical (BREATHERIT needed for Br anch E Other SPACER-MASK (Shortness ,ADULT) of breath; Spcr use as directed with inhaler). May substitute albuterol Yes [id number] 2{puff} Inhale 2 [facility] 90 9-12 Puffs ity of mcg/actuati 00:00: every 6 [place] on inhaler 00 (six) Medical hours as Branch needed for Wheezing or Shortness of Breath. benzonatate Yes [id number] Take 1-2 [facility] ([place]ESS[place]ON 9-12 capsules ity of PERLES) 100 00:00: three [place] mg capsule 00 times a Medica l day as Branch needed for cough. inhalat.spa Yes [id number] 1{each} 1 Each [facility] cing 9-12 every 6 ity of dev,large 00:00: (six) [place] mask 00 hours as Medical (BREATHERIT needed for Br anch E Other SPACER-MASK (Shortness ,ADULT) of breath; Spcr use as directed with inhaler). May substitute albuterol Yes [id number] 2{puff} Inhale 2 [facility] 90 9-12 Puffs ity of mcg/actuati 00:00: every 6 [place] as on inhaler 00 (six) Medical hours as Branch needed for Wheezing or Shortness of Breath. benzonatate Yes [id number] Take 1-2 [facility] ([place]ESS[place]ON 9-12 capsules ity of PERLES) 100 00:00: three [place] mg capsule 00 times a Medica l day as Branch needed for cough. inhalat.spa Yes [id number] 1{each} 1 Each [facility] cing 9-12 every 6 ity of dev,large 00:00: (six) [place] mask 00 hours as Medical (BREATHERIT needed for Br anch E Other SPACER-MASK (Shortness ,ADULT) of breath; Spcr use as directed with inhaler). May substitute albuterol Yes [id number] 2{puff} Inhale 2 [facility] 90 9-12 Puffs ity of mcg/actuati 00:00: every 6 [place] on inhaler 00 (six) Medical hours as Branch needed for Wheezing or Shortness of Breath. benzonatate Yes [id number] Take 1-2 [facility] ([place]ESS[place] 9-12 capsules ity of PERLES) 100 00:00: three [place] mg capsule 00 times a Medica l day as Branch needed for cough. inhalat.spa Yes [id number] 1{each} 1 Each [facility] cing 9-12 every 6 ity of dev,large 00:00: (six) [place] mask 00 hours as Medical (BREATHERIT needed for Br anch E Other SPACER-MASK (Shortness ,ADULT) of breath; Spcr use as directed with inhaler). May substitute albuterol Yes [id number] 2{puff} Inhale 2 [facility] 90 9-12 Puffs ity of mcg/actuati 00:00: every 6 [place] on inhaler 00 (six) Medical hours as Branch needed for Wheezing or Shortness of Breath. benzonatate Yes [id number] Take 1-2 [facility] ([place]ESS[place] 9-12 capsules ity of PERLES) 100 00:00: three [place] mg capsule 00 times a Medica l day as Branch needed for cough. inhalat.spa Yes [id number] 1{each} 1 Each [facility] cing 9-12 every 6 ity of dev,large 00:00: (six) [place] mask 00 hours as Medical (BREATHERIT needed for Br anch E Other SPACER-MASK (Shortness ,ADULT) of breath; Spcr use as directed with inhaler). May substitute albuterol Yes [id number] 2{puff} Inhale 2 [facility] 90 9-12 Puffs ity of mcg/actuati 00:00: every 6 [place] on inhaler 00 (six) Medical hours as Branch needed for Wheezing or Shortness of Breath. benzonatate Yes [id number] Take 1-2 [facility] ([place]ESS[place] 9-12 capsules ity of PERLES) 100 00:00: three [place] mg capsule 00 times a Medica l day as Branch needed for cough. inhalat.spa Yes [id number] 1{each} 1 Each [facility] cing 9-12 every 6 ity of dev,large 00:00: (six) [place] mask 00 hours as Medical (BREATHERIT needed for Br anch E Other SPACER-MASK (Shortness ,ADULT) of breath; Spcr use as directed with inhaler). May substitute albuterol Yes [id number] 2{puff} Inhale 2 [facility] 90 9-12 Puffs ity of mcg/actuati 00:00: every 6 [place] on inhaler 00 (six) Medical hours as Branch needed for Wheezing or Shortness of Breath. benzonatate Yes [id number] Take 1-2 [facility] ([place]ESS[place] 9-12 capsules ity of PERLES) 100 00:00: three [place] mg capsule 00 times a Medica l day as Branch needed for cough. inhalat.spa Yes [id number] 1{each} 1 Each [facility] cing 9-12 every 6 ity of dev,large 00:00: (six) [place] mask 00 hours as Medical (BREATHERIT needed for Br anch E Other SPACER-MASK (Shortness ,ADULT) of breath; Spcr use as directed with inhaler). May substitute albuterol Yes [id number] 2{puff} Inhale 2 [facility] 90 9-12 Puffs ity of mcg/actuati 00:00: every 6 [place] on inhaler 00 (six) Medical hours as Branch needed for Wheezing or Shortness of Breath. benzonatate 0 Yes [id number] Take 1-2 [facility] ([place] 9-12 capsules ity of PERLES) 100 00:00: three [place] mg capsule 00 times a Medica l day as Branch needed for cough. inhalat.spa Yes [id number] 1{each} 1 Each [facility] cing 9-12 every 6 ity of dev,large 00:00: (six) [place] mask 00 hours as Medical (BREATHERIT needed for Br anch E Other SPACER-MASK (Shortness ,ADULT) of breath; Spcr use as directed with inhaler). May substitute albuterol Yes [id number] 2{puff} Inhale 2 [facility] 90 9-12 Puffs ity of mcg/actuati 00:00: every 6 [place] on inhaler 00 (six) Medical hours as Branch needed for Wheezing or Shortness of Breath. benzonatate Yes [id number] Take 1-2 [facility] ([place]ESS[place] 9-12 capsules ity of PERLES) 100 00:00: three [place] mg capsule 00 times a Medica l day as Branch needed for cough. inhalat.spa Yes [id number] 1{each} 1 Each [facility] cing 9-12 every 6 ity of dev,large 00:00: (six) [place] mask 00 hours as Medical (BREATHERIT needed for Br anch E Other SPACER-MASK (Shortness ,ADULT) of breath; Spcr use as directed with inhaler). May substitute molnupiravi Yes [id number] 800mg Take 4 [facility] r 200 mg 9-12 capsules ity of capsule 00:00: by mouth [place] 00 every 12 Medical (twelve) Branch hours. albuterol 0 Yes [id number] 2{puff} Inhale 2 [facility] 90 9-12 Puffs ity of mcg/actuati 00:00: every 6 [place] as on inhaler 00 (six) Medical hours as Branch needed for Wheezing or Shortness of Breath. benzonatate Yes [id number] Take 1-2 [facility] ([place] 9-12 capsules ity of PERLES) 100 00:00: three [place] mg capsule 00 times a Medica l day as Branch needed for cough. inhalat.spa Yes [id number] 1{each} 1 Each [facility] cing 9-12 every 6 ity of dev,large 00:00: (six) [place] mask 00 hours as Medical (BREATHERIT needed for Br anch E Other SPACER-MASK (Shortness ,ADULT) of breath; Spcr use as directed with inhaler). May substitute molnupiravi Yes [id number] 800mg Take 4 [facility] r 200 mg 9-12 capsules ity of capsule 00:00: by mouth [place] 00 every 12 Medical (twelve) Branch hours. albuterol Yes [id number] 2{puff} Inhale 2 [facility] 90 9-12 Puffs ity of mcg/actuati 00:00: every 6 [place] on inhaler 00 (six) Medical hours as Branch needed for Wheezing or Shortness of Breath. benzonatate Yes [id number] Take 1-2 [facility] ([place] 9-12 capsules ity of PERLES) 100 00:00: three [place] mg capsule 00 times a Medica l day as Branch needed for cough. inhalat.spa Yes [id number] 1{each} 1 Each [facility] cing 9-12 every 6 ity of dev,large 00:00: (six) [place] mask 00 hours as Medical (BREATHERIT needed for Br anch E Other SPACER-MASK (Shortness ,ADULT) of breath; Spcr use as directed with inhaler). May substitute molnupiravi 0 Yes [id number] 800mg Take 4 [facility] r 200 mg 9-12 capsules ity of capsule 00:00: by mouth [place] 00 every 12 Medical (twelve) Branch hours. albuterol Yes [id number] 2{puff} Inhale 2 [facility] 90 9-12 Puffs ity of mcg/actuati 00:00: every 6 [place] on inhaler 00 (six) Medical hours as Branch needed for Wheezing or Shortness of Breath. benzonatate Yes [id number] Take 1-2 [facility] ([place] 9-12 capsules ity of PERLES) 100 00:00: three [place] mg capsule 00 times a Medica l day as Branch needed for cough. inhalat.spa Yes [id number] 1{each} 1 Each [facility] cing 9-12 every 6 ity of dev,large 00:00: (six) [place] mask 00 hours as Medical (BREATHERIT needed for Br anch E Other SPACER-MASK (Shortness ,ADULT) of breath; Spcr use as directed with inhaler). May substitute molnupiravi Yes [id number] 800mg Take 4 [facility] r 200 mg 9-12 capsules ity of capsule 00:00: by mouth [place] 00 every 12 Medical (twelve) Branch hours. albuterol Yes [id number] 2{puff} Inhale 2 [facility] 90 9-12 Puffs ity of mcg/actuati 00:00: every 6 [place] as on inhaler 00 (six) Medical hours as Branch needed for Wheezing or Shortness of Breath. benzonatate Yes [id number] Take 1-2 [facility] ([place] 9-12 capsules ity of PERLES) 100 00:00: three [place] mg capsule 00 times a Medica l day as Branch needed for cough. inhalat.spa Yes [id number] 1{each} 1 Each [facility] cing 9-12 every 6 ity of dev,large 00:00: (six) [place] mask 00 hours as Medical (BREATHERIT needed for Br anch E Other SPACER-MASK (Shortness ,ADULT) of breath; Spcr use as directed with inhaler). May substitute molnupiravi 0 Yes [id number] 800mg Take 4 [facility] r 200 mg 9-12 capsules ity of capsule 00:00: by mouth [place] 00 every 12 Medical (twelve) Branch hours. albuterol Yes [id number] 2{puff} Inhale 2 [facility] 90 9-12 Puffs ity of mcg/actuati 00:00: every 6 [place] as on inhaler 00 (six) Medical hours as Branch needed for Wheezing or Shortness of Breath. benzonatate Yes [id number] Take 1-2 [facility] ([place] 9-12 capsules ity of PERLES) 100 00:00: three [place] mg capsule 00 times a Medica l day as Branch needed for cough. inhalat.spa Yes [id number] 1{each} 1 Each [facility] cing 9-12 every 6 ity of dev,large 00:00: (six) [place] mask 00 hours as Medical (BREATHERIT needed for Br anch E Other SPACER-MASK (Shortness ,ADULT) of breath; Spcr use as directed with inhaler). May substitute molnupiravi Yes [id number] 800mg Take 4 [facility] r 200 mg 9-12 capsules ity of capsule 00:00: by mouth [place] 00 every 12 Medical (twelve) Branch hours. albuterol Yes [id number] 2{puff} Inhale 2 [facility] 90 9-12 Puffs ity of mcg/actuati 00:00: every 6 [place] as on inhaler 00 (six) Medical hours as Branch needed for Wheezing or Shortness of Breath. benzonatate Yes [id number] Take 1-2 [facility] ([place] 9-12 capsules ity of PERLES) 100 00:00: three [place] mg capsule 00 times a Medica l day as Branch needed for cough. inhalat.spa Yes [id number] 1{each} 1 Each [facility] cing 9-12 every 6 ity of dev,large 00:00: (six) [place] mask 00 hours as Medical (BREATHERIT needed for Br anch E Other SPACER-MASK (Shortness ,ADULT) of breath; Spcr use as directed with inhaler). May substitute molnupiravi 0 Yes [id number] 800mg Take 4 [facility] r 200 mg 9-12 capsules ity of capsule 00:00: by mouth [place] 00 every 12 Medical (twelve) Branch hours. albuterol 0 Yes [id number] 2{puff} Inhale 2 [facility] 90 9-12 Puffs ity of mcg/actuati 00:00: every 6 [place] as on inhaler 00 (six) Medical hours as Branch needed for Wheezing or Shortness of Breath. benzonatate 2021-0 Yes [id number] Take 1-2 [facility] ([place] 9-12 capsules ity of PERLES) 100 00:00: three [place] mg capsule 00 times a Medica l day as Branch needed for cough. inhalat.spa Yes [id number] 1{each} 1 Each [facility] cing 9-12 every 6 ity of dev,large 00:00: (six) [place] mask 00 hours as Medical (BREATHERIT needed for Br anch E Other SPACER-MASK (Shortness ,ADULT) of breath; Spcr use as directed with inhaler). May substitute molnupiravi 2021-0 Yes [id number] 800mg Take 4 [facility] r 200 mg 9-12 capsules ity of capsule 00:00: by mouth [place] 00 every 12 Medical (twelve) Branch hours. albuterol Yes [id number] 2{puff} Inhale 2 [facility] 90 9-12 Puffs ity of mcg/actuati 00:00: every 6 [place] as on inhaler 00 (six) Medical hours as Branch needed for Wheezing or Shortness of Breath. benzonatate Yes [id number] Take 1-2 [facility] ([place] 9-12 capsules ity of PERLES) 100 00:00: three [place] mg capsule 00 times a Medica l day as Branch needed for cough. inhalat.spa Yes [id number] 1{each} 1 Each [facility] cing 9-12 every 6 ity of dev,large 00:00: (six) [place] mask 00 hours as Medical (BREATHERIT needed for Br anch E Other SPACER-MASK (Shortness ,ADULT) of breath; Spcr use as directed with inhaler). May substitute molnupiravi 2021-0 Yes [id number] 800mg Take 4 [facility] r 200 mg 9-12 capsules ity of capsule 00:00: by mouth [place] 00 every 12 Medical (twelve) Branch hours. albuterol Yes [id number] 2{puff} Inhale 2 [facility] 90 9-12 Puffs ity of mcg/actuati 00:00: every 6 [place] as on inhaler 00 (six) Medical hours as Branch needed for Wheezing or Shortness of Breath. benzonatate 0 Yes [id number] Take 1-2 [facility] ([place] 9-12 capsules ity of PERLES) 100 00:00: three [place] mg capsule 00 times a Medica l day as Branch needed for cough. inhalat.spa Yes [id number] 1{each} 1 Each [facility] cing 9-12 every 6 ity of dev,large 00:00: (six) [place] mask 00 hours as Medical (BREATHERIT needed for Br anch E Other SPACER-MASK (Shortness ,ADULT) of breath; Spcr use as directed with inhaler). May substitute molnupiravi 2021-0 Yes [id number] 800mg Take 4 [facility] r 200 mg 9-12 capsules ity of capsule 00:00: by mouth [place] 00 every 12 Medical (twelve) Branch hours. albuterol 0 Yes [id number] 2{puff} Inhale 2 [facility] 90 9-12 Puffs ity of mcg/actuati 00:00: every 6 [place] on inhaler 00 (six) Medical hours as Branch needed for Wheezing or Shortness of Breath. benzonatate 0 Yes [id number] Take 1-2 [facility] ([place] 9-12 capsules ity of PERLES) 100 00:00: three [place] mg capsule 00 times a Medica l day as Branch needed for cough. inhalat.spa Yes [id number] 1{each} 1 Each [facility] cing 9-12 every 6 ity of dev,large 00:00: (six) [place] mask 00 hours as Medical (BREATHERIT needed for Br anch E Other SPACER-MASK (Shortness ,ADULT) of breath; Spcr use as directed with inhaler). May substitute molnupiravi 2021-0 Yes [id number] 800mg Take 4 [facility] r 200 mg 9-12 capsules ity of capsule 00:00: by mouth [place] 00 every 12 Medical (twelve) Branch hours. albuterol 0 Yes [id number] 2{puff} Inhale 2 [facility] 90 9-12 Puffs ity of mcg/actuati 00:00: every 6 [place] on inhaler 00 (six) Medical hours as Branch needed for Wheezing or Shortness of Breath. benzonatate 2021-0 Yes [id number] Take 1-2 [facility] ([place] 9-12 capsules ity of PERLES) 100 00:00: three [place] mg capsule 00 times a Medica l day as Branch needed for cough. inhalat.spa 0 Yes [id number] 1{each} 1 Each [facility] cing 9-12 every 6 ity of dev,large 00:00: (six) [place] mask 00 hours as Medical (BREATHERIT needed for Br anch E Other SPACER-MASK (Shortness ,ADULT) of breath; Spcr use as directed with inhaler). May substitute molnupiravi 2021-0 Yes [id number] 800mg Take 4 [facility] r 200 mg 9-12 capsules ity of capsule 00:00: by mouth [place] 00 every 12 Medical (twelve) Branch hours. albuterol 0 Yes [id number] 2{puff} Inhale 2 [facility] 90 9-12 Puffs ity of mcg/actuati 00:00: every 6 [place] on inhaler 00 (six) Medical hours as Branch needed for Wheezing or Shortness of Breath. benzonatate 2021-0 Yes [id number] Take 1-2 [facility] ([place] 9-12 capsules ity of PERLES) 100 00:00: three [place] mg capsule 00 times a Medica l day as Branch needed for cough. inhalat.spa Yes [id number] 1{each} 1 Each [facility] cing 9-12 every 6 ity of dev,large 00:00: (six) [place] mask 00 hours as Medical (BREATHERIT needed for Br anch E Other SPACER-MASK (Shortness ,ADULT) of breath; Spcr use as directed with inhaler). May substitute molnupiravi 2021-0 Yes [id number] 800mg Take 4 [facility] r 200 mg 9-12 capsules ity of capsule 00:00: by mouth [place] 00 every 12 Medical (twelve) Branch hours. albuterol 0 Yes [id number] 2{puff} Inhale 2 [facility] 90 9-12 Puffs ity of mcg/actuati 00:00: every 6 [place] on inhaler 00 (six) Medical hours as Branch needed for Wheezing or Shortness of Breath. benzonatate 2021-0 Yes [id number] Take 1-2 [facility] ([place] 9-12 capsules ity of PERLES) 100 00:00: three [place] mg capsule 00 times a Medica l day as Branch needed for cough. inhalat.spa 0 Yes [id number] 1{each} 1 Each [facility] cing 9-12 every 6 ity of dev,large 00:00: (six) [place] mask 00 hours as Medical (BREATHERIT needed for Br anch E Other SPACER-MASK (Shortness ,ADULT) of breath; Spcr use as directed with inhaler). May substitute molnupiravi 2021-0 Yes [id number] 800mg Take 4 [facility] r 200 mg 9-12 capsules ity of capsule 00:00: by mouth [place] 00 every 12 Medical (twelve) Branch hours. albuterol Yes [id number] 2{puff} Inhale 2 [facility] 90 9-12 Puffs ity of mcg/actuati 00:00: every 6 [place] on inhaler 00 (six) Medical hours as Branch needed for Wheezing or Shortness of Breath. benzonatate Yes [id number] Take 1-2 [facility] ([place] 9-12 capsules ity of PERLES) 100 00:00: three [place] mg capsule 00 times a Medica l day as Branch needed for cough. inhalat.spa Yes [id number] 1{each} 1 Each [facility] cing 9-12 every 6 ity of dev,large 00:00: (six) [place] mask 00 hours as Medical (BREATHERIT needed for Br anch E Other SPACER-MASK (Shortness ,ADULT) of breath; Spcr use as directed with inhaler). May substitute molnupiravi 0 Yes [id number] 800mg Take 4 [facility] r 200 mg 9-12 capsules ity of capsule 00:00: by mouth [place] 00 every 12 Medical (twelve) Branch hours. albuterol Yes [id number] 2{puff} Inhale 2 [facility] 90 9-12 Puffs ity of mcg/actuati 00:00: every 6 [place] on inhaler 00 (six) Medical hours as Branch needed for Wheezing or Shortness of Breath. benzonatate 0 Yes [id number] Take 1-2 [facility] ([place] 9-12 capsules ity of PERLES) 100 00:00: three [place] mg capsule 00 times a Medica l day as Branch needed for cough. inhalat.spa 0 Yes [id number] 1{each} 1 Each [facility] cing 9-12 every 6 ity of dev,large 00:00: (six) [place] mask 00 hours as Medical (BREATHERIT needed for Br anch E Other SPACER-MASK (Shortness ,ADULT) of breath; Spcr use as directed with inhaler). May substitute molnupiravi 2021-0 Yes [id number] 800mg Take 4 [facility] r 200 mg 9-12 capsules ity of capsule 00:00: by mouth [place] 00 every 12 Medical (twelve) Branch hours. albuterol Yes [id number] 2{puff} Inhale 2 [facility] 90 9-12 Puffs ity of mcg/actuati 00:00: every 6 [place] on inhaler 00 (six) Medical hours as Branch needed for Wheezing or Shortness of Breath. benzonatate 0 Yes [id number] Take 1-2 [facility] ([place] 9-12 capsules ity of PERLES) 100 00:00: three [place] mg capsule 00 times a Medica l day as Branch needed for cough. inhalat.spa 0 Yes [id number] 1{each} 1 Each [facility] cing 9-12 every 6 ity of dev,large 00:00: (six) [place] mask 00 hours as Medical (BREATHERIT needed for Br anch E Other SPACER-MASK (Shortness ,ADULT) of breath; Spcr use as directed with inhaler). May substitute molnupiravi 2021-0 Yes [id number] 800mg Take 4 [facility] r 200 mg 9-12 capsules ity of capsule 00:00: by mouth [place] 00 every 12 Medical (twelve) Branch hours. albuterol Yes [id number] 2{puff} Inhale 2 [facility] 90 9-12 Puffs ity of mcg/actuati 00:00: every 6 [place] on inhaler 00 (six) Medical hours as Branch needed for Wheezing or Shortness of Breath. benzonatate 0 Yes [id number] Take 1-2 [facility] ([place] 9-12 capsules ity of PERLES) 100 00:00: three [place] mg capsule 00 times a Medica l day as Branch needed for cough. inhalat.spa 0 Yes [id number] 1{each} 1 Each [facility] cing 9-12 every 6 ity of dev,large 00:00: (six) [place] mask 00 hours as Medical (BREATHERIT needed for Br anch E Other SPACER-MASK (Shortness ,ADULT) of breath; Spcr use as directed with inhaler). May substitute molnupiravi 2021-0 Yes [id number] 800mg Take 4 [facility] r 200 mg 9-12 capsules ity of capsule 00:00: by mouth [place] 00 every 12 Medical (twelve) Branch hours. albuterol Yes [id number] 2{puff} Inhale 2 [facility] 90 9-12 Puffs ity of mcg/actuati 00:00: every 6 [place] on inhaler 00 (six) Medical hours as Branch needed for Wheezing or Shortness of Breath. benzonatate Yes [id number] Take 1-2 [facility] ([place] 9-12 capsules ity of PERLES) 100 00:00: three [place] mg capsule 00 times a Medica l day as Branch needed for cough. inhalat.spa Yes [id number] 1{each} 1 Each [facility] cing 9-12 every 6 ity of dev,large 00:00: (six) [place] mask 00 hours as Medical (BREATHERIT needed for Br anch E Other SPACER-MASK (Shortness ,ADULT) of breath; Spcr use as directed with inhaler). May substitute molnupiravi Yes [id number] 800mg Take 4 [facility] r 200 mg 9-12 capsules ity of capsule 00:00: by mouth [place] 00 every 12 Medical (twelve) Branch hours. albuterol Yes [id number] 2{puff} Inhale 2 [facility] 90 9-12 Puffs ity of mcg/actuati 00:00: every 6 [place] inhaler 00 (six) Medical hours as Branch needed for Wheezing or Shortness of Breath. benzonatate Yes [id number] Take 1-2 [facility] ([place] 9-12 capsules ity of PERLES) 100 00:00: three [place] mg capsule 00 times a Medica l day as Branch needed for cough. inhalat.spa Yes [id number] 1{each} 1 Each [facility] cing 9-12 every 6 ity of dev,large 00:00: (six) [place] mask 00 hours as Medical (BREATHERIT needed for Br anch E Other SPACER-MASK (Shortness ,ADULT) of breath; Spcr use as directed with inhaler). May substitute molnupiravi 0 Yes [id number] 800mg Take 4 [facility] r 200 mg 9-12 capsules ity of capsule 00:00: by mouth [place] 00 every 12 Medical (twelve) Branch hours. albuterol Yes [id number] 2{puff} Inhale 2 [facility] 90 9-12 Puffs ity of mcg/actuati 00:00: every 6 [place] on inhaler 00 (six) Medical hours as Branch needed for Wheezing or Shortness of Breath. benzonatate Yes [id number] Take 1-2 [facility] ([place] 9-12 capsules ity of PERLES) 100 00:00: three [place] mg capsule 00 times a Medica l day as Branch needed for cough. inhalat.spa Yes [id number] 1{each} 1 Each [facility] cing 9-12 every 6 ity of dev,large 00:00: (six) [place] mask 00 hours as Medical (BREATHERIT needed for Br anch E Other SPACER-MASK (Shortness ,ADULT) of breath; Spcr use as directed with inhaler). May substitute molnupiravi Yes [id number] 800mg Take 4 [facility] r 200 mg 9-12 capsules ity of capsule 00:00: by mouth [place] 00 every 12 Medical (twelve) Branch hours. albuterol Yes [id number] 2{puff} Inhale 2 [facility] 90 9-12 Puffs ity of mcg/actuati 00:00: every 6 [place] on inhaler 00 (six) Medical hours as Branch needed for Wheezing or Shortness of Breath. benzonatate Yes [id number] Take 1-2 [facility] ([place] 9-12 capsules ity of PERLES) 100 00:00: three [place] mg capsule 00 times a Medica l day as Branch needed for cough. inhalat.spa Yes [id number] 1{each} 1 Each [facility] cing 9-12 every 6 ity of dev,large 00:00: (six) [place] mask 00 hours as Medical (BREATHERIT needed for Br anch E Other SPACER-MASK (Shortness ,ADULT) of breath; Spcr use as directed with inhaler). May substitute molnupiravi 0 Yes [id number] 800mg Take 4 [facility] r 200 mg 9-12 capsules ity of capsule 00:00: by mouth [place] 00 every 12 Medical (twelve) Branch hours. albuterol Yes [id number] 2{puff} Inhale 2 [facility] 90 9-12 Puffs ity of mcg/actuati 00:00: every 6 [place] on inhaler 00 (six) Medical hours as Branch needed for Wheezing or Shortness of Breath. benzonatate Yes [id number] Take 1-2 [facility] ([place] 9-12 capsules ity of PERLES) 100 00:00: three [place] mg capsule 00 times a Medica l day as Branch needed for cough. inhalat.spa Yes [id number] 1{each} 1 Each [facility] cing 9-12 every 6 ity of dev,large 00:00: (six) [place] mask 00 hours as Medical (BREATHERIT needed for Br anch E Other SPACER-MASK (Shortness ,ADULT) of breath; Spcr use as directed with inhaler). May substitute molnupiravi Yes [id number] 800mg Take 4 [facility] r 200 mg 9-12 capsules ity of capsule 00:00: by mouth [place] 00 every 12 Medical (twelve) Branch hours. albuterol Yes [id number] 2{puff} Inhale 2 [facility] 90 9-12 Puffs ity of mcg/actuati 00:00: every 6 [place] on inhaler 00 (six) Medical hours as Branch needed for Wheezing or Shortness of Breath. benzonatate Yes [id number] Take 1-2 [facility] ([facility]ESSALON 9-12 capsules ity of PERLES) 100 00:00: three [place] mg capsule 00 times a Medica l day as Branch needed for cough. inhalat.spa Yes [id number] 1{each} 1 Each [facility] cing 9-12 every 6 ity of dev,large 00:00: (six) [place] mask 00 hours as Medical (BREATHERIT needed for Br anch E Other SPACER-MASK (Shortness ,ADULT) of breath; Spcr use as directed with inhaler). May substitute molnupiravi 2021-0 Yes [id number] 800mg Take 4 [facility] r 200 mg 9-12 capsules ity of capsule 00:00: by mouth [place] 00 every 12 Medical (twelve) Branch hours. albuterol Yes [id number] 2{puff} Inhale 2 [facility] 90 9-12 Puffs ity of mcg/actuati 00:00: every 6 [place] as on inhaler 00 (six) Medical hours as Branch needed for Wheezing or Shortness of Breath. benzonatate Yes [id number] Take 1-2 [facility] (TESSALON 9-12 capsules ity of PERLES) 100 00:00: three [place] mg capsule 00 times a Medica l day as Branch needed for cough. inhalat.spa Yes [id number] 1{each} 1 Each [facility] cing 9-12 every 6 ity of dev,large 00:00: (six) [place] mask 00 hours as Medical (BREATHERIT needed for Br anch E Other SPACER-MASK (Shortness ,ADULT) of breath; Spcr use as directed with inhaler). May substitute molnupiravi 2021-0 Yes [id number] 800mg Take 4 [facility] r 200 mg 9-12 capsules ity of capsule 00:00: by mouth [place] 00 every 12 Medical (twelve) Branch hours. albuterol Yes [id number] 2{puff} Inhale 2 [facility] 90 9-12 Puffs ity of mcg/actuati 00:00: every 6 [place] as on inhaler 00 (six) Medical hours as Branch needed for Wheezing or Shortness of Breath. benzonatate Yes [id number] Take 1-2 [facility] (TESSALON 9-12 capsules ity of PERLES) 100 00:00: three [place] mg capsule 00 times a Medica l day as Branch needed for cough. inhalat.spa Yes [id number] 1{each} 1 Each [facility] cing 9-12 every 6 ity of dev,large 00:00: (six) [place] mask 00 hours as Medical (BREATHERIT needed for Br anch E Other SPACER-MASK (Shortness ,ADULT) of breath; Spcr use as directed with inhaler). May substitute molnupiravi 2021-0 Yes [id number] 800mg Take 4 [facility] r 200 mg 9-12 capsules ity of capsule 00:00: by mouth [place] 00 every 12 Medical (twelve) Branch hours. albuterol 2021-0 Yes [id number] 2{puff} Inhale 2 [facility] 90 9-12 Puffs ity of mcg/actuati 00:00: every 6 [place] as on inhaler 00 (six) Medical hours as Branch needed for Wheezing or Shortness of Breath. benzonatate 2021-0 Yes [id number] Take 1-2 [facility] (TESSALON 9-12 capsules ity of PERLES) 100 00:00: three [place] mg capsule 00 times a Medica l day as Branch needed for cough. inhalat.spa Yes [id number] 1{each} 1 Each [facility] cing 9-12 every 6 ity of dev,large 00:00: (six) [place] mask 00 hours as Medical (BREATHERIT needed for Br anch E Other SPACER-MASK (Shortness ,ADULT) of breath; Spcr use as directed with inhaler). May substitute molnupiravi Yes [id number] 800mg Take 4 [facility] r 200 mg 9-12 capsules ity of capsule 00:00: by mouth [place] 00 every 12 Medical (twelve) Branch hours. albuterol Yes [id number] 2{puff} Inhale 2 [facility] 90 9-12 Puffs ity of mcg/actuati 00:00: every 6 [place] as on inhaler 00 (six) Medical hours as Branch needed for Wheezing or Shortness of Breath. benzonatate Yes [id number] Take 1-2 [facility] (TESS[place]ON 9-12 capsules ity of PERLES) 100 00:00: three [place] mg capsule 00 times a Medica l day as Branch needed for cough. inhalat.spa Yes [id number] 1{each} 1 Each [facility] cing 9-12 every 6 ity of dev,large 00:00: (six) [place] mask 00 hours as Medical (BREATHERIT needed for Br anch E Other SPACER-MASK (Shortness ,ADULT) of breath; Spcr use as directed with inhaler). May substitute molnupiravi Yes [id number] 800mg Take 4 [facility] r 200 mg 9-12 capsules ity of capsule 00:00: by mouth [place] 00 every 12 Medical (twelve) Branch hours. albuterol Yes [id number] 2{puff} Inhale 2 [facility] 90 9-12 Puffs ity of mcg/actuati 00:00: every 6 [place] as on inhaler 00 (six) Medical hours as Branch needed for Wheezing or Shortness of Breath. benzonatate 0 Yes [id number] Take 1-2 [facility] (TESS[place]ON 9-12 capsules ity of PERLES) 100 00:00: three [place] mg capsule 00 times a Medica l day as Branch needed for cough. inhalat.spa Yes [id number] 1{each} 1 Each [facility] cing 9-12 every 6 ity of dev,large 00:00: (six) [place] mask 00 hours as Medical (BREATHERIT needed for Br anch E Other SPACER-MASK (Shortness ,ADULT) of breath; Spcr use as directed with inhaler). May substitute molnupiravi 2021-0 Yes [id number] 800mg Take 4 [facility] r 200 mg 9-12 capsules ity of capsule 00:00: by mouth [place] 00 every 12 Medical (twelve) Branch hours. albuterol 0 Yes [id number] 2{puff} Inhale 2 [facility] 90 9-12 Puffs ity of mcg/actuati 00:00: every 6 [place] on inhaler 00 (six) Medical hours as Branch needed for Wheezing or Shortness of Breath. benzonatate 2021-0 Yes [id number] Take 1-2 [facility] (TESS[place]ON 9-12 capsules ity of PERLES) 100 00:00: three [place] mg capsule 00 times a Medica l day as Branch needed for cough. inhalat.spa Yes [id number] 1{each} 1 Each [facility] cing 9-12 every 6 ity of dev,large 00:00: (six) [place] mask 00 hours as Medical (BREATHERIT needed for Br anch E Other SPACER-MASK (Shortness ,ADULT) of breath; Spcr use as directed with inhaler). May substitute molnupiravi 2021-0 Yes [id number] 800mg Take 4 [facility] r 200 mg 9-12 capsules ity of capsule 00:00: by mouth [place] 00 every 12 Medical (twelve) Branch hours. albuterol 0 Yes [id number] 2{puff} Inhale 2 [facility] 90 9-12 Puffs ity of mcg/actuati 00:00: every 6 [place] on inhaler 00 (six) Medical hours as Branch needed for Wheezing or Shortness of Breath. benzonatate 2021-0 Yes [id number] Take 1-2 [facility] (TESS[place]ON 9-12 capsules ity of PERLES) 100 00:00: three [place] mg capsule 00 times a Medica l day as Branch needed for cough. inhalat.spa 0 Yes [id number] 1{each} 1 Each [facility] cing 9-12 every 6 ity of dev,large 00:00: (six) [place] mask 00 hours as Medical (BREATHERIT needed for Br anch E Other SPACER-MASK (Shortness ,ADULT) of breath; Spcr use as directed with inhaler). May substitute molnupiravi 2021-0 Yes [id number] 800mg Take 4 [facility] r 200 mg 9-12 capsules ity of capsule 00:00: by mouth [place] 00 every 12 Medical (twelve) Branch hours. albuterol 0 Yes [id number] 2{puff} Inhale 2 [facility] 90 9-12 Puffs ity of mcg/actuati 00:00: every 6 [place] on inhaler 00 (six) Medical hours as Branch needed for Wheezing or Shortness of Breath. benzonatate 0 Yes [id number] Take 1-2 [facility] (TESS[place]ON 9-12 capsules ity of PERLES) 100 00:00: three [place] mg capsule 00 times a Medica l day as Branch needed for cough. inhalat.spa Yes [id number] 1{each} 1 Each [facility] cing 9-12 every 6 ity of dev,large 00:00: (six) [place] mask 00 hours as Medical (BREATHERIT needed for Br anch E Other SPACER-MASK (Shortness ,ADULT) of breath; Spcr use as directed with inhaler). May substitute molnupiravi 2021-0 Yes [id number] 800mg Take 4 [facility] r 200 mg 9-12 capsules ity of capsule 00:00: by mouth [place] 00 every 12 Medical (twelve) Branch hours. albuterol 0 Yes [id number] 2{puff} Inhale 2 [facility] 90 9-12 Puffs ity of mcg/actuati 00:00: every 6 [place] as on inhaler 00 (six) Medical hours as Branch needed for Wheezing or Shortness of Breath. benzonatate 0 Yes [id number] Take 1-2 [facility] (TESS[place]ON 9-12 capsules ity of PERLES) 100 00:00: three [place] mg capsule 00 times a Medica l day as Branch needed for cough. inhalat.spa 0 Yes [id number] 1{each} 1 Each [facility] cing 9-12 every 6 ity of dev,large 00:00: (six) [place] mask 00 hours as Medical (BREATHERIT needed for Br anch E Other SPACER-MASK (Shortness ,ADULT) of breath; Spcr use as directed with inhaler). May substitute molnupiravi 2021-0 Yes [id number] 800mg Take 4 [facility] r 200 mg 9-12 capsules ity of capsule 00:00: by mouth [place] 00 every 12 Medical (twelve) Branch hours. albuterol 0 Yes [id number] 2{puff} Inhale 2 [facility] 90 9-12 Puffs ity of mcg/actuati 00:00: every 6 [place] as on inhaler 00 (six) Medical hours as Branch needed for Wheezing or Shortness of Breath. benzonatate 0 Yes [id number] Take 1-2 [facility] ([place]ESS[place] 9-12 capsules ity of PERLES) 100 00:00: three [place] mg capsule 00 times a Medica l day as Branch needed for cough. inhalat.spa Yes [id number] 1{each} 1 Each [facility] cing 9-12 every 6 ity of dev,large 00:00: (six) [place] mask 00 hours as Medical (BREATHERIT needed for Br anch E Other SPACER-MASK (Shortness ,ADULT) of breath; Spcr use as directed with inhaler). May substitute molnupiravi 2021-0 Yes [id number] 800mg Take 4 [facility] r 200 mg 9-12 capsules ity of capsule 00:00: by mouth [place] 00 every 12 Medical (twelve) Branch hours. albuterol Yes [id number] 2{puff} Inhale 2 [facility] 90 9-12 Puffs ity of mcg/actuati 00:00: every 6 [place] as on inhaler 00 (six) Medical hours as Branch needed for Wheezing or Shortness of Breath. benzonatate 0 Yes [id number] Take 1-2 [facility] ([place]ESS[place] 9-12 capsules ity of PERLES) 100 00:00: three [place] mg capsule 00 times a Medica l day as Branch needed for cough. inhalat.spa 0 Yes [id number] 1{each} 1 Each [facility] cing 9-12 every 6 ity of dev,large 00:00: (six) [place] mask 00 hours as Medical (BREATHERIT needed for Br anch E Other SPACER-MASK (Shortness ,ADULT) of breath; Spcr use as directed with inhaler). May substitute molnupiravi 2021-0 Yes [id number] 800mg Take 4 [facility] r 200 mg 9-12 capsules ity of capsule 00:00: by mouth [place] 00 every 12 Medical (twelve) Branch hours. albuterol Yes [id number] 2{puff} Inhale 2 [facility] 90 9-12 Puffs ity of mcg/actuati 00:00: every 6 [place] as on inhaler 00 (six) Medical hours as Branch needed for Wheezing or Shortness of Breath. benzonatate Yes [id number] Take 1-2 [facility] (TESS[place] 9-12 capsules ity of PERLES) 100 00:00: three [place] mg capsule 00 times a Medica l day as Branch needed for cough. inhalat.spa Yes [id number] 1{each} 1 Each [facility] cing 9-12 every 6 ity of dev,large 00:00: (six) [place] mask 00 hours as Medical (BREATHERIT needed for Br anch E Other SPACER-MASK (Shortness ,ADULT) of breath; Spcr use as directed with inhaler). May substitute molnupiravi Yes [id number] 800mg Take 4 [facility] r 200 mg 9-12 capsules ity of capsule 00:00: by mouth [place] 00 every 12 Medical (twelve) Branch hours. albuterol Yes [id number] 2{puff} Inhale 2 [facility] 90 9-12 Puffs ity of mcg/actuati 00:00: every 6 [place] as on inhaler 00 (six) Medical hours as Branch needed for Wheezing or Shortness of Breath. benzonatate 0 Yes [id number] Take 1-2 [facility] ([place]ESS[place] 9-12 capsules ity of PERLES) 100 00:00: three [place] mg capsule 00 times a Medica l day as Branch needed for cough. inhalat.spa 0 Yes [id number] 1{each} 1 Each [facility] cing 9-12 every 6 ity of dev,large 00:00: (six) [place] mask 00 hours as Medical (BREATHERIT needed for Br anch E Other SPACER-MASK (Shortness ,ADULT) of breath; Spcr use as directed with inhaler). May substitute molnupiravi 2021-0 Yes [id number] 800mg Take 4 [facility] r 200 mg 9-12 capsules ity of capsule 00:00: by mouth [place] 00 every 12 Medical (twelve) Branch hours. albuterol Yes [id number] 2{puff} Inhale 2 [facility] 90 9-12 Puffs ity of mcg/actuati 00:00: every 6 [place] as on inhaler 00 (six) Medical hours as Branch needed for Wheezing or Shortness of Breath. benzonatate Yes [id number] Take 1-2 [facility] ([place]ESS[place] 9-12 capsules ity of PERLES) 100 00:00: three [place] mg capsule 00 times a Medica l day as Branch needed for cough. inhalat.spa Yes [id number] 1{each} 1 Each [facility] cing 9-12 every 6 ity of dev,large 00:00: (six) [place] mask 00 hours as Medical (BREATHERIT needed for Br anch E Other SPACER-MASK (Shortness ,ADULT) of breath; Spcr use as directed with inhaler). May substitute molnupiravi Yes [id number] 800mg Take 4 [facility] r 200 mg 9-12 capsules ity of capsule 00:00: by mouth [place] 00 every 12 Medical (twelve) Branch hours. albuterol Yes [id number] 2{puff} Inhale 2 [facility] 90 9-12 Puffs ity of mcg/actuati 00:00: every 6 [place] as on inhaler 00 (six) Medical hours as Branch needed for Wheezing or Shortness of Breath. benzonatate Yes [id number] Take 1-2 [facility] ([place]ESS[place] 9-12 capsules ity of PERLES) 100 00:00: three [place] mg capsule 00 times a Medica l day as Branch needed for cough. inhalat.spa Yes [id number] 1{each} 1 Each [facility] cing 9-12 every 6 ity of dev,large 00:00: (six) [place] mask 00 hours as Medical (BREATHERIT needed for Br anch E Other SPACER-MASK (Shortness ,ADULT) of breath; Spcr use as directed with inhaler). May substitute molnupiravi 0 Yes [id number] 800mg Take 4 [facility] r 200 mg 9-12 capsules ity of capsule 00:00: by mouth [place] 00 every 12 Medical (twelve) Branch hours. albuterol Yes [id number] 2{puff} Inhale 2 [facility] 90 9-12 Puffs ity of mcg/actuati 00:00: every 6 [place] as on inhaler 00 (six) Medical hours as Branch needed for Wheezing or Shortness of Breath. benzonatate Yes [id number] Take 1-2 [facility] ([place]ESS[place] 9-12 capsules ity of PERLES) 100 00:00: three [place] mg capsule 00 times a Medica l day as Branch needed for cough. inhalat.spa Yes [id number] 1{each} 1 Each [facility] cing 9-12 every 6 ity of dev,large 00:00: (six) [place] mask 00 hours as Medical (BREATHERIT needed for Br anch E Other SPACER-MASK (Shortness ,ADULT) of breath; Spcr use as directed with inhaler). May substitute molnupiravi Yes [id number] 800mg Take 4 [facility] r 200 mg 9-12 capsules ity of capsule 00:00: by mouth [place] 00 every 12 Medical (twelve) Branch hours. albuterol Yes [id number] 2{puff} Inhale 2 [facility] 90 9-12 Puffs ity of mcg/actuati 00:00: every 6 [place] on inhaler 00 (six) Medical hours as Branch needed for Wheezing or Shortness of Breath. benzonatate Yes [id number] Take 1-2 [facility] ([place]ESS[place] 9-12 capsules ity of PERLES) 100 00:00: three [place] mg capsule 00 times a Medica l day as Branch needed for cough. inhalat.spa Yes [id number] 1{each} 1 Each [facility] cing 9-12 every 6 ity of dev,large 00:00: (six) [place] mask 00 hours as Medical (BREATHERIT needed for Br anch E Other SPACER-MASK (Shortness ,ADULT) of breath; Spcr use as directed with inhaler). May substitute molnupiravi 0 Yes [id number] 800mg Take 4 [facility] r 200 mg 9-12 capsules ity of capsule 00:00: by mouth [place] 00 every 12 Medical (twelve) Branch hours. albuterol Yes [id number] 2{puff} Inhale 2 [facility] 90 9-12 Puffs ity of mcg/actuati 00:00: every 6 [place] as on inhaler 00 (six) Medical hours as Branch needed for Wheezing or Shortness of Breath. benzonatate Yes [id number] Take 1-2 [facility] ([place]ESS[place] 9-12 capsules ity of PERLES) 100 00:00: three [place] mg capsule 00 times a Medica l day as Branch needed for cough. inhalat.spa Yes [id number] 1{each} 1 Each [facility] cing 9-12 every 6 ity of dev,large 00:00: (six) [place] mask 00 hours as Medical (BREATHERIT needed for Br anch E Other SPACER-MASK (Shortness ,ADULT) of breath; Spcr use as directed with inhaler). May substitute molnupiravi 2021- Yes [id number] 800mg Take 4 [facility] r 200 mg 9-12 capsules ity of capsule 00:00: by mouth [place] 00 every 12 Medical (twelve) Branch hours. albuterol Yes [id number] 2{puff} Inhale 2 [facility] 90 9-12 Puffs ity of mcg/actuati 00:00: every 6 [place] as on inhaler 00 (six) Medical hours as Branch needed for Wheezing or Shortness of Breath. benzonatate Yes [id number] Take 1-2 [facility] ([place]ESS[place] 9-12 capsules ity of PERLES) 100 00:00: three [place] mg capsule 00 times a Medica l day as Branch needed for cough. inhalat.spa Yes [id number] 1{each} 1 Each [facility] cing 9-12 every 6 ity of dev,large 00:00: (six) [place] mask 00 hours as Medical (BREATHERIT needed for Br anch E Other SPACER-MASK (Shortness ,ADULT) of breath; Spcr use as directed with inhaler). May substitute molnupiravi 2021-0 Yes [id number] 800mg Take 4 [facility] r 200 mg 9-12 capsules ity of capsule 00:00: by mouth [place] 00 every 12 Medical (twelve) Branch hours. albuterol Yes [id number] 2{puff} Inhale 2 [facility] 90 9-12 Puffs ity of mcg/actuati 00:00: every 6 [place] as on inhaler 00 (six) Medical hours as Branch needed for Wheezing or Shortness of Breath. benzonatate Yes [id number] Take 1-2 [facility] ([place]ESS[place] 9-12 capsules ity of PERLES) 100 00:00: three [place] mg capsule 00 times a Medica l day as Branch needed for cough. inhalat.spa Yes [id number] 1{each} 1 Each [facility] cing 9-12 every 6 ity of dev,large 00:00: (six) [place] mask 00 hours as Medical (BREATHERIT needed for Br anch E Other SPACER-MASK (Shortness ,ADULT) of breath; Spcr use as directed with inhaler). May substitute molnupiravi 2021-0 Yes [id number] 800mg Take 4 [facility] r 200 mg 9-12 capsules ity of capsule 00:00: by mouth [place] 00 every 12 Medical (twelve) Branch hours. albuterol Yes [id number] 2{puff} Inhale 2 [facility] 90 9-12 Puffs ity of mcg/actuati 00:00: every 6 [place] on inhaler 00 (six) Medical hours as Branch needed for Wheezing or Shortness of Breath. benzonatate Yes [id number] Take 1-2 [facility] ([place]ESS[place] 9-12 capsules ity of PERLES) 100 00:00: three [place] mg capsule 00 times a Medica l day as Branch needed for cough. inhalat.spa Yes [id number] 1{each} 1 Each [facility] cing 9-12 every 6 ity of dev,large 00:00: (six) [place] mask 00 hours as Medical (BREATHERIT needed for Br anch E Other SPACER-MASK (Shortness ,ADULT) of breath; Spcr use as directed with inhaler). May substitute molnupiravi 2021-0 Yes [id number] 800mg Take 4 [facility] r 200 mg 9-12 capsules ity of capsule 00:00: by mouth [place] 00 every 12 Medical (twelve) Branch hours. albuterol 2021-0 Yes [id number] 2{puff} Inhale 2 [facility] 90 9-12 Puffs ity of mcg/actuati 00:00: every 6 [place] on inhaler 00 (six) Medical hours as Branch needed for Wheezing or Shortness of Breath. benzonatate 2021-0 Yes [id number] Take 1-2 [facility] ([place]ESS[place] 9-12 capsules ity of PERLES) 100 00:00: three [place] mg capsule 00 times a Medica l day as Branch needed for cough. inhalat.spa Yes [id number] 1{each} 1 Each [facility] cing 9-12 every 6 ity of dev,large 00:00: (six) [place] mask 00 hours as Medical (BREATHERIT needed for Br anch E Other SPACER-MASK (Shortness ,ADULT) of breath; Spcr use as directed with inhaler). May substitute molnupiravi 2021-0 Yes [id number] 800mg Take 4 [facility] r 200 mg 9-12 capsules ity of capsule 00:00: by mouth [place] 00 every 12 Medical (twelve) Branch hours. albuterol Yes [id number] 2{puff} Inhale 2 [facility] 90 9-12 Puffs ity of mcg/actuati 00:00: every 6 [place] on inhaler 00 (six) Medical hours as Branch needed for Wheezing or Shortness of Breath. benzonatate Yes [id number] Take 1-2 [facility] ([place]ESS[place] 9-12 capsules ity of PERLES) 100 00:00: three [place] mg capsule 00 times a Medica l day as Branch needed for cough. inhalat.spa Yes [id number] 1{each} 1 Each [facility] cing 9-12 every 6 ity of dev,large 00:00: (six) [place] mask 00 hours as Medical (BREATHERIT needed for Br anch E Other SPACER-MASK (Shortness ,ADULT) of breath; Spcr use as directed with inhaler). May substitute molnupiravi 2021-0 Yes [id number] 800mg Take 4 [facility] r 200 mg 9-12 capsules ity of capsule 00:00: by mouth [place] 00 every 12 Medical (twelve) Branch hours. albuterol Yes [id number] 2{puff} Inhale 2 [facility] 90 9-12 Puffs ity of mcg/actuati 00:00: every 6 [place] on inhaler 00 (six) Medical hours as Branch needed for Wheezing or Shortness of Breath. benzonatate 0 Yes [id number] Take 1-2 [facility] ([place]ESS[place] 9-12 capsules ity of PERLES) 100 00:00: three [place] mg capsule 00 times a Medica l day as Branch needed for cough. inhalat.spa Yes [id number] 1{each} 1 Each [facility] cing 9-12 every 6 ity of dev,large 00:00: (six) [place] mask 00 hours as Medical (BREATHERIT needed for Br anch E Other SPACER-MASK (Shortness ,ADULT) of breath; Spcr use as directed with inhaler). May substitute molnupiravi 2021-0 Yes [id number] 800mg Take 4 [facility] r 200 mg 9-12 capsules ity of capsule 00:00: by mouth [place] 00 every 12 Medical (twelve) Branch hours. albuterol 0 Yes [id number] 2{puff} Inhale 2 [facility] 90 9-12 Puffs ity of mcg/actuati 00:00: every 6 [place] on inhaler 00 (six) Medical hours as Branch needed for Wheezing or Shortness of Breath. benzonatate 0 Yes [id number] Take 1-2 [facility] ([place]ESS[place] 9-12 capsules ity of PERLES) 100 00:00: three [place] mg capsule 00 times a Medica l day as Branch needed for cough. inhalat.spa Yes [id number] 1{each} 1 Each [facility] cing 9-12 every 6 ity of dev,large 00:00: (six) [place] mask 00 hours as Medical (BREATHERIT needed for Br anch E Other SPACER-MASK (Shortness ,ADULT) of breath; Spcr use as directed with inhaler). May substitute molnupiravi 2021-0 Yes [id number] 800mg Take 4 [facility] r 200 mg 9-12 capsules ity of capsule 00:00: by mouth [place] 00 every 12 Medical (twelve) Branch hours. albuterol 0 Yes [id number] 2{puff} Inhale 2 [facility] 90 9-12 Puffs ity of mcg/actuati 00:00: every 6 [place] on inhaler 00 (six) Medical hours as Branch needed for Wheezing or Shortness of Breath. benzonatate 2021-0 Yes [id number] Take 1-2 [facility] ([place]ESS[place] 9-12 capsules ity of PERLES) 100 00:00: three [place] mg capsule 00 times a Medica l day as Branch needed for cough. inhalat.spa 0 Yes [id number] 1{each} 1 Each [facility] cing 9-12 every 6 ity of dev,large 00:00: (six) [place] mask 00 hours as Medical (BREATHERIT needed for Br anch E Other SPACER-MASK (Shortness ,ADULT) of breath; Spcr use as directed with inhaler). May substitute molnupiravi 2021-0 Yes [id number] 800mg Take 4 [facility] r 200 mg 9-12 capsules ity of capsule 00:00: by mouth [place] 00 every 12 Medical (twelve) Branch hours. albuterol Yes [id number] 2{puff} Inhale 2 [facility] 90 9-12 Puffs ity of mcg/actuati 00:00: every 6 [place] on inhaler 00 (six) Medical hours as Branch needed for Wheezing or Shortness of Breath. benzonatate 0 Yes [id number] Take 1-2 [facility] ([place]ESS[place] 9-12 capsules ity of PERLES) 100 00:00: three [place] mg capsule 00 times a Medica l day as Branch needed for cough. inhalat.spa 0 Yes [id number] 1{each} 1 Each [facility] cing 9-12 every 6 ity of dev,large 00:00: (six) [place] mask 00 hours as Medical (BREATHERIT needed for Br anch E Other SPACER-MASK (Shortness ,ADULT) of breath; Spcr use as directed with inhaler). May substitute molnupiravi 2021-0 Yes [id number] 800mg Take 4 [facility] r 200 mg 9-12 capsules ity of capsule 00:00: by mouth [place] 00 every 12 Medical (twelve) Branch hours. albuterol 0 Yes [id number] 2{puff} Inhale 2 [facility] 90 9-12 Puffs ity of mcg/actuati 00:00: every 6 [place] on inhaler 00 (six) Medical hours as Branch needed for Wheezing or Shortness of Breath. benzonatate 0 Yes [id number] Take 1-2 [facility] ([place]ESS[place]ON 9-12 capsules ity of PERLES) 100 00:00: three [place] mg capsule 00 times a Medica l day as Branch needed for cough. inhalat.spa 0 Yes [id number] 1{each} 1 Each [facility] cing 9-12 every 6 ity of dev,large 00:00: (six) [place] mask 00 hours as Medical (BREATHERIT needed for Br anch E Other SPACER-MASK (Shortness ,ADULT) of breath; Spcr use as directed with inhaler). May substitute molnupiravi 2021-0 Yes [id number] 800mg Take 4 [facility] r 200 mg 9-12 capsules ity of capsule 00:00: by mouth [place] 00 every 12 Medical (twelve) Branch hours. albuterol 0 Yes [id number] 2{puff} Inhale 2 [facility] 90 9-12 Puffs ity of mcg/actuati 00:00: every 6 [place] on inhaler 00 (six) Medical hours as Branch needed for Wheezing or Shortness of Breath. benzonatate 0 Yes [id number] Take 1-2 [facility] ([place]ESS[place]ON 9-12 capsules ity of PERLES) 100 00:00: three [place] mg capsule 00 times a Medica l day as Branch needed for cough. inhalat.spa Yes [id number] 1{each} 1 Each [facility] cing 9-12 every 6 ity of dev,large 00:00: (six) [place] mask 00 hours as Medical (BREATHERIT needed for Br anch E Other SPACER-MASK (Shortness ,ADULT) of breath; Spcr use as directed with inhaler). May substitute molnupiravi 2021-0 Yes [id number] 800mg Take 4 [facility] r 200 mg 9-12 capsules ity of capsule 00:00: by mouth [place] 00 every 12 Medical (twelve) Branch hours. albuterol Yes [id number] 2{puff} Inhale 2 [facility] 90 9-12 Puffs ity of mcg/actuati 00:00: every 6 [place] on inhaler 00 (six) Medical hours as Branch needed for Wheezing or Shortness of Breath. benzonatate 0 Yes [id number] Take 1-2 [facility] ([place]ESS[place]ON 9-12 capsules ity of PERLES) 100 00:00: three [place] mg capsule 00 times a Medica l day as Branch needed for cough. inhalat.spa 0 Yes [id number] 1{each} 1 Each [facility] cing 9-12 every 6 ity of dev,large 00:00: (six) [place] mask 00 hours as Medical (BREATHERIT needed for Br anch E Other SPACER-MASK (Shortness ,ADULT) of breath; Spcr use as directed with inhaler). May substitute molnupiravi 2021-0 Yes [id number] 800mg Take 4 [facility] r 200 mg 9-12 capsules ity of capsule 00:00: by mouth [place] 00 every 12 Medical (twelve) Branch hours. albuterol Yes [id number] 2{puff} Inhale 2 [facility] 90 9-12 Puffs ity of mcg/actuati 00:00: every 6 [place] on inhaler 00 (six) Medical hours as Branch needed for Wheezing or Shortness of Breath. benzonatate Yes [id number] Take 1-2 [facility] (TESSALON 9-12 capsules ity of PERLES) 100 00:00: three [place] mg capsule 00 times a Medica l day as Branch needed for cough. inhalat.spa Yes [id number] 1{each} 1 Each [facility] cing 9-12 every 6 ity of dev,large 00:00: (six) [place] mask 00 hours as Medical (BREATHERIT needed for Br anch E Other SPACER-MASK (Shortness ,ADULT) of breath; Spcr use as directed with inhaler). May substitute molnupiravi Yes [id number] 800mg Take 4 [facility] r 200 mg 9-12 capsules ity of capsule 00:00: by mouth [place] 00 every 12 Medical (twelve) Branch hours. albuterol Yes [id number] 2{puff} Inhale 2 [facility] 90 9-12 Puffs ity of mcg/actuati 00:00: every 6 [place] on inhaler 00 (six) Medical hours as Branch needed for Wheezing or Shortness of Breath. benzonatate Yes [id number] Take 1-2 [facility] (TESSALON 9-12 capsules ity of PERLES) 100 00:00: three [place] mg capsule 00 times a Medica l day as Branch needed for cough. inhalat.spa Yes [id number] 1{each} 1 Each [facility] cing 9-12 every 6 ity of dev,large 00:00: (six) [place] mask 00 hours as Medical (BREATHERIT needed for Br anch E Other SPACER-MASK (Shortness ,ADULT) of breath; Spcr use as directed with inhaler). May substitute molnupiravi 2021-0 Yes [id number] 800mg Take 4 [facility] r 200 mg 9-12 capsules ity of capsule 00:00: by mouth [place] 00 every 12 Medical (twelve) Branch hours. albuterol Yes [id number] 2{puff} Inhale 2 [facility] 90 9-12 Puffs ity of mcg/actuati 00:00: every 6 [place] on inhaler 00 (six) Medical hours as Branch needed for Wheezing or Shortness of Breath. benzonatate Yes [id number] Take 1-2 [facility] (TESSALON 9-12 capsules ity of PERLES) 100 00:00: three [place] mg capsule 00 times a Medica l day as Branch needed for cough. inhalat.spa Yes [id number] 1{each} 1 Each [facility] cing 9-12 every 6 ity of dev,large 00:00: (six) [place] mask 00 hours as Medical (BREATHERIT needed for Br anch E Other SPACER-MASK (Shortness ,ADULT) of breath; Spcr use as directed with inhaler). May substitute molnupiravi Yes [id number] 800mg Take 4 [facility] r 200 mg 9-12 capsules ity of capsule 00:00: by mouth [place] every 12 Medical (twelve) Branch hours. albuterol Yes [id number] 2{puff} Inhale 2 [facility] 90 9-12 Puffs ity of mcg/actuati 00:00: every 6 [place] on inhaler 00 (six) Medical hours as Branch needed for Wheezing or Shortness of Breath. benzonatate Yes [id number] Take 1-2 [facility] (TESSALON 9-12 capsules ity of PERLES) 100 00:00: three [place] mg capsule 00 times a Medica l day as Branch needed for cough. inhalat.spa Yes [id number] 1{each} 1 Each [facility] cing 9-12 every 6 ity of dev,large 00:00: (six) [place] mask 00 hours as Medical (BREATHERIT needed for Br anch E Other SPACER-MASK (Shortness ,ADULT) of breath; Spcr use as directed with inhaler). May substitute molnupiravi 2021-0 Yes [id number] 800mg Take 4 [facility] r 200 mg 9-12 capsules ity of capsule 00:00: by mouth [place] 00 every 12 Medical (twelve) Branch hours. albuterol Yes [id number] 2{puff} Inhale 2 [facility] 90 9-12 Puffs ity of mcg/actuati 00:00: every 6 [place] on inhaler 00 (six) Medical hours as Branch needed for Wheezing or Shortness of Breath. benzonatate Yes [id number] Take 1-2 [facility] (TESSALON 9-12 capsules ity of PERLES) 100 00:00: three [place] mg capsule 00 times a Medica l day as Branch needed for cough. inhalat.spa Yes [id number] 1{each} 1 Each [facility] cing 9-12 every 6 ity of dev,large 00:00: (six) [place] mask 00 hours as Medical (BREATHERIT needed for Br anch E Other SPACER-MASK (Shortness ,ADULT) of breath; Spcr use as directed with inhaler). May substitute molnupiravi Yes [id number] 800mg Take 4 [facility] r 200 mg 9-12 capsules ity of capsule 00:00: by mouth [place] 00 every 12 Medical (twelve) Branch hours. albuterol Yes [id number] 2{puff} Inhale 2 [facility] 90 9-12 Puffs ity of mcg/actuati 00:00: every 6 [place] on inhaler 00 (six) Medical hours as Branch needed for Wheezing or Shortness of Breath. benzonatate Yes [id number] Take 1-2 [facility] (TESSALON 9-12 capsules ity of PERLES) 100 00:00: three [place] mg capsule 00 times a Medica l day as Branch needed for cough. inhalat.spa Yes [id number] 1{each} 1 Each [facility] cing 9-12 every 6 ity of dev,large 00:00: (six) [place] mask 00 hours as Medical (BREATHERIT needed for Br anch E Other SPACER-MASK (Shortness ,ADULT) of breath; Spcr use as directed with inhaler). May substitute molnupiravi 0 Yes [id number] 800mg Take 4 [facility] r 200 mg 9-12 capsules ity of capsule 00:00: by mouth [place] 00 every 12 Medical (twelve) Branch hours. albuterol Yes [id number] 2{puff} Inhale 2 [facility] 90 9-12 Puffs ity of mcg/actuati 00:00: every 6 [place] on inhaler 00 (six) Medical hours as Branch needed for Wheezing or Shortness of Breath. benzonatate Yes [id number] Take 1-2 [facility] (TESSALON 9-12 capsules ity of PERLES) 100 00:00: three [place] mg capsule 00 times a Medica l day as Branch needed for cough. inhalat.spa Yes [id number] 1{each} 1 Each [facility] cing 9-12 every 6 ity of dev,large 00:00: (six) [place] mask 00 hours as Medical (BREATHERIT needed for Br anch E Other SPACER-MASK (Shortness ,ADULT) of breath; Spcr use as directed with inhaler). May substitute molnupiravi Yes [id number] 800mg Take 4 [facility] r 200 mg 9-12 capsules ity of capsule 00:00: by mouth [place] 00 every 12 Medical (twelve) Branch hours. albuterol Yes [id number] 2{puff} Inhale 2 [facility] 90 9-12 Puffs ity of mcg/actuati 00:00: every 6 [place] on inhaler 00 (six) Medical hours as Branch needed for Wheezing or Shortness of Breath. benzonatate Yes [id number] Take 1-2 [facility] (TESSALON 9-12 capsules ity of PERLES) 100 00:00: three [place] mg capsule 00 times a Medica l day as Branch needed for cough. inhalat.spa Yes [id number] 1{each} 1 Each [facility] cing 9-12 every 6 ity of dev,large 00:00: (six) [place] mask 00 hours as Medical (BREATHERIT needed for Br anch E Other SPACER-MASK (Shortness ,ADULT) of breath; Spcr use as directed with inhaler). May substitute molnupiravi 2021-0 Yes [id number] 800mg Take 4 [facility] r 200 mg 9-12 capsules ity of capsule 00:00: by mouth [place] 00 every 12 Medical (twelve) Branch hours. albuterol 0 Yes [id number] 2{puff} Inhale 2 [facility] 90 9-12 Puffs ity of mcg/actuati 00:00: every 6 [place] on inhaler 00 (six) Medical hours as Branch needed for Wheezing or Shortness of Breath. benzonatate Yes [id number] Take 1-2 [facility] (TESSALON 9-12 capsules ity of PERLES) 100 00:00: three [place] mg capsule 00 times a Medica l day as Branch needed for cough. inhalat.spa Yes [id number] 1{each} 1 Each [facility] cing 9-12 every 6 ity of dev,large 00:00: (six) [place] mask 00 hours as Medical (BREATHERIT needed for Br anch E Other SPACER-MASK (Shortness ,ADULT) of breath; Spcr use as directed with inhaler). May substitute molnupiravi 2021-0 Yes [id number] 800mg Take 4 [facility] r 200 mg 9-12 capsules ity of capsule 00:00: by mouth [place] 00 every 12 Medical (twelve) Branch hours. albuterol Yes [id number] 2{puff} Inhale 2 [facility] 90 9-12 Puffs ity of mcg/actuati 00:00: every 6 [place] on inhaler 00 (six) Medical hours as Branch needed for Wheezing or Shortness of Breath. benzonatate Yes [id number] Take 1-2 [facility] (TESSALON 9-12 capsules ity of PERLES) 100 00:00: three [place] mg capsule 00 times a Medica l day as Branch needed for cough. inhalat.spa Yes [id number] 1{each} 1 Each [facility] cing 9-12 every 6 ity of dev,large 00:00: (six) [place] mask 00 hours as Medical (BREATHERIT needed for Br anch E Other SPACER-MASK (Shortness ,ADULT) of breath; Spcr use as directed with inhaler). May substitute molnupiravi 2021-0 Yes [id number] 800mg Take 4 [facility] r 200 mg 9-12 capsules ity of capsule 00:00: by mouth [place] 00 every 12 Medical (twelve) Branch hours. albuterol 2021-0 Yes [id number] 2{puff} Inhale 2 [facility] 90 9-12 Puffs ity of mcg/actuati 00:00: every 6 [place] on inhaler 00 (six) Medical hours as Branch needed for Wheezing or Shortness of Breath. benzonatate 2021-0 Yes [id number] Take 1-2 [facility] (TESSALON 9-12 capsules ity of PERLES) 100 00:00: three [place] mg capsule 00 times a Medica l day as Branch needed for cough. inhalat.spa 0 Yes [id number] 1{each} 1 Each [facility] cing 9-12 every 6 ity of dev,large 00:00: (six) [place] mask 00 hours as Medical (BREATHERIT needed for Br anch E Other SPACER-MASK (Shortness ,ADULT) of breath; Spcr use as directed with inhaler). May substitute molnupiravi 2021-0 Yes [id number] 800mg Take 4 [facility] r 200 mg 9-12 capsules ity of capsule 00:00: by mouth [place] 00 every 12 Medical (twelve) Branch hours. molnupiravi 2022- No [id number] 800mg Take 4 [facility] r 200 mg 9-12 04-18 capsules ity of capsule 00:00: 00:00 by mouth [place] 00 :00 every 12 Medical (twelve) Branch hours. molnupiravi 2021-0 3- No [id number] 800mg Take 4 [facility] r 200 mg 9-12 04-18 capsules ity of capsule 00:00: 00:00 by mouth [place] 00 :00 every 12 Medical (twelve) Branch hours. molnupiravi 0 2- No [id number] 800mg Take 4 [facility] r 200 mg 9-12 09-12 capsules ity of capsule 00:00: 00:00 by mouth [place] 00 :00 every 12 Medical (twelve) Branch hours. LEVEMIR 0 Yes [facility] FLEXTOUCH 9-07 ity of U-100 00:00: [place] INSULN 100 00 Medical unit/mL (3 Branch mL) injection LEVEMIR 2021-0 Yes [facility] FLEXTOUCH 9-07 ity of U-100 00:00: [place] INSULN 100 00 Medical unit/mL (3 Branch mL) injection LEVEMIR 2021-0 Yes [facility] FLEXTOUCH 9-07 ity of U-100 00:00: [place] INSULN 100 00 Medical unit/mL (3 Branch mL) injection LEVEMIR 2021-0 Yes [facility] FLEXTOUCH 9-07 ity of U-100 00:00: [place] INSULN 100 00 Medical unit/mL (3 Branch mL) injection LEVEMIR 2021-0 Yes [facility] FLEXTOUCH 9-07 ity of U-100 00:00: [place] INSULN 100 00 Medical unit/mL (3 Branch mL) injection LEVEMIR 2022-0 Yes [facility] FLEXTOUCH - ity of U-100 00:00: [place] INSULN 100 00 Medical unit/mL (3 Branch mL) injection LEVEMIR 2022-0 Yes [facility] FLEXTOUCH - ity of U-100 00:00: [place] INSULN 100 00 Medical unit/mL (3 Branch mL) injection LEVEMIR 2022-0 Yes [facility] FLEXTOUCH - ity of U-100 00:00: [place] INSULN 100 00 Medical unit/mL (3 Branch mL) injection LEVEMIR 2022-0 Yes [facility] FLEXTOUCH - ity of U-100 00:00: [place] INSULN 100 00 Medical unit/mL (3 Branch mL) injection LEVEMIR 2022-0 Yes [facility] FLEXTOUCH - ity of U-100 00:00: [place] INSULN 100 00 Medical unit/mL (3 Branch mL) injection LEVEMIR 2022-0 Yes [facility] FLEXTOUCH 01-03 ity of U-100 00:00: [place] INSULN 100 00 Medical unit/mL (3 Branch mL) injection LEVEMIR 2022-0 Yes [facility] FLEXTOUCH - ity of U-100 00:00: [place] INSULN 100 00 Medical unit/mL (3 Branch mL) injection LEVEMIR 2022-0 Yes [facility] FLEXTOUCH - ity of U-100 00:00: [place] INSULN 100 00 Medical unit/mL (3 Branch mL) injection LEVEMIR 2022-0 Yes [facility] FLEXTOUCH - ity of U-100 00:00: [place] INSULN 100 00 Medical unit/mL (3 Branch mL) injection LEVEMIR 2022-0 Yes [facility] FLEXTOUCH - ity of U-100 00:00: [place] INSULN 100 00 Medical unit/mL (3 Branch mL) injection LEVEMIR 2022-0 Yes [facility] FLEXTOUCH 9- ity of U-100 00:00: [place] INSULN 100 00 Medical unit/mL (3 Branch mL) injection LEVEMIR 2022-0 Yes [facility] FLEXTOUCH - ity of U-100 00:00: [place] INSULN 100 00 Medical unit/mL (3 Branch mL) injection LEVEMIR 2022-0 Yes [facility] FLEXTOUCH - ity of U-100 00:00: [place] INSULN 100 00 Medical unit/mL (3 Branch mL) injection LEVEMIR 202-0 Yes [facility] FLEXTOUCH 9-07 ity of U-100 00:00: [place] INSULN 100 00 Medical unit/mL (3 Branch mL) injection LEVEMIR 2021-0 Yes [facility] FLEXTOUCH 9-07 ity of U-100 00:00: [place] INSULN 100 00 Medical unit/mL (3 Branch mL) injection LEVEMIR 2021-0 Yes [facility] FLEXTOUCH 9-07 ity of U-100 00:00: [place] INSULN 100 00 Medical unit/mL (3 Branch mL) injection LEVEMIR 2021-0 Yes [facility] FLEXTOUCH 9-07 ity of U-100 00:00: [place] INSULN 100 00 Medical unit/mL (3 Branch mL) injection METOPROLOL 2021-0 Yes [id number] TAKE 1 [facility] TARTRATE 25 9-07 TABLET BY ity of mg tablet 00:00: MOUTH [place] 00 TWICE Medical DAILY Branch METFORMIN 2022-0 Yes TAKE 1 [facility] 1,000 mg 9-07 TABLET BY ity of tablet 00:00: [facility] 00 TWICE Medical DAILY Branch METOPROLOL 2022-0 Yes [id number] TAKE 1 [facility] TARTRATE 25 9-07 TABLET BY ity of mg tablet 00:00: [facility] 00 TWICE Medical DAILY Branch METFORMIN 2022-0 Yes TAKE 1 [facility] s 1,000 mg 9-07 TABLET BY ity of tablet 00:00: [facility] 00 TWICE Medical DAILY Branch METOPROLOL 2022-0 Yes [id number] TAKE 1 [facility] TARTRATE 25 9-07 TABLET BY ity of mg tablet 00:00: MOUTH [place] 00 TWICE Medical DAILY Branch METFORMIN 2022-0 Yes TAKE 1 [facility] 1,000 mg 9-07 TABLET BY ity of tablet 00:00: MOUTH [place] 00 TWICE Medical DAILY Branch METOPROLOL 2022-0 Yes [id number] TAKE 1 [facility] TARTRATE 25 9-07 TABLET BY ity of mg tablet 00:00: MOUTH [place] 00 TWICE Medical DAILY Branch METFORMIN 2022-0 Yes TAKE 1 [facility] 1,000 mg 9-07 TABLET BY ity of tablet 00:00: MOUTH [place] 00 TWICE Medical DAILY Branch METOPROLOL 2022-0 Yes [id number] TAKE 1 [facility] TARTRATE 25 9-07 TABLET BY ity of mg tablet 00:00: MOUTH [place] 00 TWICE Medical DAILY Branch METFORMIN 2022-0 Yes TAKE 1 [facility] 1,000 mg 9-07 TABLET BY ity of tablet 00:00: MOUTH [place] 00 TWICE Medical DAILY Branch METOPROLOL 2022-0 Yes [id number] TAKE 1 [facility] TARTRATE 25 9-07 TABLET BY ity of mg tablet 00:00: MOUTH [place] 00 TWICE Medical DAILY Branch METFORMIN 2022-0 Yes TAKE 1 [facility] 1,000 mg 9-07 TABLET BY ity of tablet 00:00: MOUTH [place] 00 TWICE Medical DAILY Branch METOPROLOL 2022-0 Yes [id number] TAKE 1 [facility] TARTRATE 25 9-07 TABLET BY ity of mg tablet 00:00: MOUTH [place] 00 TWICE Medical DAILY Branch METFORMIN 2022-0 Yes TAKE 1 [facility] 1,000 mg 9-07 TABLET BY ity of tablet 00:00: MOUTH [place] 00 TWICE Medical DAILY Branch METOPROLOL 2022-0 Yes [id number] TAKE 1 [facility] TARTRATE 25 9-07 TABLET BY ity of mg tablet 00:00: MOUTH [place] 00 TWICE Medical DAILY Branch METFORMIN 2022-0 Yes TAKE 1 [facility] 1,000 mg 9-07 TABLET BY ity of tablet 00:00: MOUTH [place] 00 TWICE Medical DAILY Branch METOPROLOL 2022-0 Yes [id number] TAKE 1 [facility] TARTRATE 25 9-07 TABLET BY ity of mg tablet 00:00: MOUTH [place] 00 TWICE Medical DAILY Branch METFORMIN 2022-0 Yes TAKE 1 [facility] 1,000 mg 9-07 TABLET BY ity of tablet 00:00: MOUTH [place] 00 TWICE Medical DAILY Branch METOPROLOL 2022-0 Yes [id number] TAKE 1 [facility] TARTRATE 25 9-07 TABLET BY ity of mg tablet 00:00: MOUTH [place] 00 TWICE Medical DAILY Branch METFORMIN 2022-0 Yes TAKE 1 [facility] 1,000 mg 9-07 TABLET BY ity of tablet 00:00: MOUTH [place] 00 TWICE Medical DAILY Branch METOPROLOL 2022-0 Yes [id number] TAKE 1 [facility] TARTRATE 25 9-07 TABLET BY ity of mg tablet 00:00: MOUTH [place] 00 TWICE Medical DAILY Branch METFORMIN 2022-0 Yes TAKE 1 [facility] 1,000 mg 9-07 TABLET BY ity of tablet 00:00: MOUTH [place] 00 TWICE Medical DAILY Branch METOPROLOL 2022-0 Yes [id number] TAKE 1 [facility] TARTRATE 25 9-07 TABLET BY ity of mg tablet 00:00: MOUTH 00 TWICE Medical DAILY Branch METFORMIN 2022-0 Yes TAKE 1 [facility] 1,000 mg 9-07 TABLET BY ity of tablet 00:00: MOUTH 00 TWICE Medical DAILY Branch METOPROLOL 2022-0 Yes [id number] TAKE 1 [facility] TARTRATE 25 9-07 TABLET BY ity of mg tablet 00:00: MOUTH TWICE Medical DAILY Branch METFORMIN 2022-0 Yes TAKE 1 [facility] 1,000 mg 9-07 TABLET BY ity of tablet 00:00: MOUTH TWICE Medical DAILY Branch METOPROLOL 2022-0 Yes [id number] TAKE 1 [facility] TARTRATE 25 9-07 TABLET BY ity of mg tablet 00:00: MOUTH TWICE Medical DAILY Branch METFORMIN 2022-0 Yes TAKE 1 [facility] 1,000 mg 9-07 TABLET BY ity of tablet 00:00: MOUTH TWICE Medical DAILY Branch METOPROLOL 2022-0 Yes [id number] TAKE 1 [facility] TARTRATE 25 9-07 TABLET BY ity of mg tablet 00:00: MOUTH TWICE Medical DAILY Branch METFORMIN 2022-0 Yes TAKE 1 [facility] 1,000 mg 9-07 TABLET BY ity of tablet 00:00: MOUTH TWICE Medical DAILY Branch METOPROLOL 2022-0 Yes [id number] TAKE 1 [facility] TARTRATE 25 9-07 TABLET BY ity of mg tablet 00:00: MOUTH TWICE Medical DAILY Branch METFORMIN 2022-0 Yes TAKE 1 [facility] 1,000 mg 9-07 TABLET BY ity of tablet 00:00: MOUTH TWICE Medical DAILY Branch METOPROLOL 2022-0 Yes [id number] TAKE 1 [facility] TARTRATE 25 9-07 TABLET BY ity of mg tablet 00:00: MOUTH 00 TWICE Medical DAILY Branch METFORMIN 2022-0 Yes TAKE 1 [facility] 1,000 mg 9-07 TABLET BY ity of tablet 00:00: MOUTH 00 TWICE Medical DAILY Branch METOPROLOL 2022-0 Yes [id number] TAKE 1 [facility] TARTRATE 25 9-07 TABLET BY ity of mg tablet 00:00: MOUTH 00 TWICE Medical DAILY Branch METFORMIN 2022-0 Yes TAKE 1 [facility] 1,000 mg 9-07 TABLET BY ity of tablet 00:00: MOUTH [place] 00 TWICE Medical DAILY Branch METOPROLOL 2021-0 Yes [id number] TAKE 1 [facility] TARTRATE 25 9-07 TABLET BY ity of mg tablet 00:00: MOUTH [place] 00 TWICE Medical DAILY Branch METOPROLOL 2021-0 Yes [id number] TAKE 1 [facility] TARTRATE 25 9-07 TABLET BY ity of mg tablet 00:00: [facility] TWICE Medical DAILY Branch METOPROLOL 2021-0 Yes [id number] TAKE 1 [facility] TARTRATE 25 9-07 TABLET BY ity of mg tablet 00:00: MOUTH [place] 00 TWICE Medical DAILY Branch METOPROLOL 0 Yes [id number] TAKE 1 [facility] TARTRATE 25 9-07 TABLET BY ity of mg tablet 00:00: [facility] TWICE Medical DAILY Branch METOPROLOL 0 Yes [id number] TAKE 1 [facility] TARTRATE 25 9-07 TABLET BY ity of mg tablet 00:00: [facility] TWICE Medical DAILY Branch METOPROLOL 2021-0 Yes [id number] TAKE 1 [facility] TARTRATE 25 9-07 TABLET BY ity of mg tablet 00:00: MOUTH [place] TWICE Medical DAILY Branch METOPROLOL 0 Yes [id number] TAKE 1 [facility] TARTRATE 25 9-07 TABLET BY ity of mg tablet 00:00: [facility] TWICE Medical DAILY Branch METOPROLOL 2021-0 Yes [id number] TAKE 1 [facility] TARTRATE 25 9-07 TABLET BY ity of mg tablet 00:00: [facility] TWICE Medical DAILY Branch METOPROLOL 2021-0 Yes [id number] TAKE 1 [facility] TARTRATE 25 9-07 TABLET BY ity of mg tablet 00:00: [facility] 00 TWICE Medical DAILY Branch METOPROLOL 2021-0 Yes [id number] TAKE 1 [facility] TARTRATE 25 9-07 TABLET BY ity of mg tablet 00:00: [facility] 00 TWICE Medical DAILY Branch LEVEMIR 0 Yes [facility] FLEXTOUCH - ity of U-100 00:00: [place] INSULN 100 00 Medical unit/mL (3 Branch mL) injection LEVEMIR 0 Yes [facility] FLEXTOUCH - ity of U-100 00:00: [place] INSULN 100 00 Medical unit/mL (3 Branch mL) injection LEVEMIR 0 Yes [facility] FLEXTOUCH - ity of U-100 00:00: [place] INSULN 100 00 Medical unit/mL (3 Branch mL) injection LEVEMIR 2022-0 Yes [facility] FLEXTOUCH - ity of U-100 00:00: [place] INSULN 100 00 Medical unit/mL (3 Branch mL) injection LEVEMIR 2022-0 Yes [facility] FLEXTOUCH - ity of U-100 00:00: [place] INSULN 100 00 Medical unit/mL (3 Branch mL) injection LEVEMIR 2022-0 Yes [facility] FLEXTOUCH - ity of U-100 00:00: [place] INSULN 100 00 Medical unit/mL (3 Branch mL) injection LEVEMIR 2-0 Yes [facility] FLEXTOUCH - ity of U-100 00:00: [place] INSULN 100 00 Medical unit/mL (3 Branch mL) injection LEVEMIR 2022-0 Yes [facility] FLEXTOUCH - ity of U-100 00:00: [place] INSULN 100 00 Medical unit/mL (3 Branch mL) injection LEVEMIR 2022-0 Yes [facility] FLEXTOUCH - ity of U-100 00:00: [place] INSULN 100 00 Medical unit/mL (3 Branch mL) injection LEVEMIR 2-0 Yes [facility] FLEXTOUCH - ity of U-100 00:00: [place] INSULN 100 00 Medical unit/mL (3 Branch mL) injection LEVEMIR 2022-0 Yes [facility] FLEXTOUCH - ity of U-100 00:00: [place] INSULN 100 00 Medical unit/mL (3 Branch mL) injection LEVEMIR 2022-0 Yes [facility] FLEXTOUCH - ity of U-100 00:00: [place] INSULN 100 00 Medical unit/mL (3 Branch mL) injection LEVEMIR 2022-0 Yes [facility] FLEXTOUCH - ity of U-100 00:00: [place] INSULN 100 00 Medical unit/mL (3 Branch mL) injection LEVEMIR 2022-0 Yes [facility] FLEXTOUCH - ity of U-100 00:00: [place] INSULN 100 00 Medical unit/mL (3 Branch mL) injection LEVEMIR 2022-0 Yes [facility] FLEXTOUCH 9-07 ity of U-100 00:00: [place] INSULN 100 00 Medical unit/mL (3 Branch mL) injection LEVEMIR 2022-0 Yes [facility] FLEXTOUCH - ity of U-100 00:00: [place] INSULN 100 00 Medical unit/mL (3 Branch mL) injection LEVEMIR 2022-0 Yes [facility] FLEXTOUCH - ity of U-100 00:00: [place] INSULN 100 00 Medical unit/mL (3 Branch mL) injection LEVEMIR 2022-0 Yes [facility] FLEXTOUCH - ity of U-100 00:00: [place] INSULN 100 00 Medical unit/mL (3 Branch mL) injection LEVEMIR 2022-0 Yes [facility] FLEXTOUCH - ity of U-100 00:00: [place] INSULN 100 00 Medical unit/mL (3 Branch mL) injection LEVEMIR 2022-0 Yes [facility] FLEXTOUCH - ity of U-100 00:00: [place] INSULN 100 00 Medical unit/mL (3 Branch mL) injection LEVEMIR 2022-0 Yes [facility] FLEXTOUCH - ity of U-100 00:00: [place] INSULN 100 00 Medical unit/mL (3 Branch mL) injection LEVEMIR 2-0 Yes [facility] FLEXTOUCH - ity of U-100 00:00: [place] INSULN 100 00 Medical unit/mL (3 Branch mL) injection LEVEMIR 2022-0 Yes [facility] FLEXTOUCH - ity of U-100 00:00: [place] INSULN 100 00 Medical unit/mL (3 Branch mL) injection LEVEMIR 2022-0 Yes [facility] FLEXTOUCH - ity of U-100 00:00: [place] INSULN 100 00 Medical unit/mL (3 Branch mL) injection LEVEMIR 2022-0 Yes [facility] FLEXTOUCH - ity of U-100 00:00: [place] INSULN 100 00 Medical unit/mL (3 Branch mL) injection LEVEMIR 2022-0 Yes [facility] FLEXTOUCH 9- ity of U-100 00:00: [place] INSULN 100 00 Medical unit/mL (3 Branch mL) injection LEVEMIR 2022-0 Yes [facility] FLEXTOUCH - ity of U-100 00:00: [place] INSULN 100 00 Medical unit/mL (3 Branch mL) injection LEVEMIR 2022-0 Yes [facility] FLEXTOUCH 01-03 ity of U-100 00:00: [place] INSULN 100 00 Medical unit/mL (3 Branch mL) injection LEVEMIR 0 Yes [facility] FLEXTOUCH 01-03 ity of U-100 00:00: [place] INSULN 100 00 Medical unit/mL (3 Branch mL) injection LEVEMIR 2021-0 Yes [facility] FLEXTOUCH 01-03 ity of U-100 00:00: [place] INSULN 100 00 Medical unit/mL (3 Branch mL) injection LEVEMIR 0 Yes [facility] FLEXTOUCH 01-03 ity of U-100 00:00: [place] INSULN 100 00 Medical unit/mL (3 Branch mL) injection LEVEMIR 0 2022- No [facility] FLEXTOUCH 01-03 ity of U-100 00:00: 00:00 [place] INSULN 100 00 :00 Medical unit/mL (3 Branch mL) injection LEVEMIR 0 2022- No Univers FLEXTOUCH 01-03 ity of U-100 00:00: 00:00 [place] INSULN 100 00 :00 Medical unit/mL (3 Branch mL) injection METOPROLOL 0 2021- No [id number] TAKE 1 [facility] TARTRATE 25 01-03 11-10 TABLET BY it y of mg tablet 00:00: 00:00 MOUTH [place] 00 :00 TWICE Medical DAILY Branch METFORMIN 2021-0 2021- No TAKE 1 [facility] 1,000 mg 01-03- TABLET BY ity o f tablet 00:00: 00:00 MOUTH [place] 00 :00 TWICE Medical DAILY Branch METFORMIN 2021-0 2021- No TAKE 1 [facility] 1,000 mg 01-03 10-19 TABLET BY ity o f tablet 00:00: 00:00 MOUTH [place] 00 :00 TWICE Medical DAILY Branch METFORMIN 2021-0 2021- No TAKE 1 [facility] 1,000 mg 01-03- TABLET BY ity o f tablet 00:00: 00:00 MOUTH [place] 00 :00 TWICE Medical DAILY Branch ATORVASTATI 0 Yes [id number] 10mg TAKE 1 [facility] N 10 mg 8-30 TABLET BY ity of tablet 00:00: MOUTH AT [place] 00 BEDTIME Medical Branch ATORVASTATI 2021-0 Yes [id number] 10mg TAKE 1 [facility] N 10 mg 8-30 TABLET BY ity of tablet 00:00: MOUTH AT [place] [facility] Yes [id number] 10mg TAKE 1 [facility] N 10 mg 8-30 TABLET BY ity of tablet 00:00: MOUTH AT [place] [facility] Yes [id number] 10mg TAKE 1 [facility] N 10 mg 8-30 TABLET BY ity of tablet 00:00: MOUTH AT [place] [facility] Yes [id number] 10mg TAKE 1 [facility] N 10 mg 8-30 TABLET BY ity of tablet 00:00: MOUTH AT [place] [facility] Yes [id number] 10mg TAKE 1 [facility] N 10 mg 8-30 TABLET BY ity of tablet 00:00: MOUTH AT [place] [facility] Yes [id number] 10mg TAKE 1 [facility] N 10 mg 8-30 TABLET BY ity of tablet 00:00: MOUTH AT [place] [facility] Yes [id number] 10mg TAKE 1 [facility] N 10 mg 8-30 TABLET BY ity of tablet 00:00: MOUTH AT [place] [facility] Yes [id number] 10mg TAKE 1 [facility] N 10 mg 8-30 TABLET BY ity of tablet 00:00: MOUTH AT [place] [facility] Yes [id number] 10mg TAKE 1 [facility] N 10 mg 8-30 TABLET BY ity of tablet 00:00: MOUTH AT [place] [facility] Yes [id number] 10mg TAKE 1 [facility] 10 mg 8-30 TABLET BY [facility]y of tablet 00:00: MOUTH AT [place] [facility] Yes [id number] 10mg TAKE 1 [facility] N 10 mg 8-30 TABLET BY ity of tablet 00:00: MOUTH AT [address] Yes [id number] 10mg TAKE 1 [facility] 10 mg 8-30 TABLET BY ity of tablet 00:00: MOUTH AT [address] Yes [id number] 10mg TAKE 1 [facility] 10 mg 8-30 TABLET BY ity of tablet 00:00: MOUTH AT [place] [facility] Yes [id number] 10mg TAKE 1 [facility] 10 mg 8-30 TABLET BY ity of tablet 00:00: MOUTH AT [place] [facility] Yes [id number] 10mg TAKE 1 [facility] 10 mg 8-30 TABLET BY ity of tablet 00:00: MOUTH AT [place] [facility] Yes [id number] 10mg TAKE 1 [facility] 10 mg 8-30 TABLET BY ity of tablet 00:00: MOUTH AT [place] [facility] Yes [id number] 10mg TAKE 1 [facility] 10 mg 8-30 TABLET BY ity of tablet 00:00: MOUTH AT [place] [facility] Yes [id number] 10mg TAKE 1 [facility] 10 mg 8-30 TABLET BY ity of tablet 00:00: MOUTH AT [place] [facility] Yes [id number] 10mg TAKE 1 [facility] 10 mg 8-30 TABLET BY ity of tablet 00:00: MOUTH AT [place] [facility] Yes [id number] 10mg TAKE 1 [facility] 10 mg 8-30 TABLET BY ity of tablet 00:00: MOUTH AT [place] [facility] Yes [id number] 10mg TAKE 1 [facility] 10 mg 8-30 TABLET BY ity of tablet 00:00: MOUTH AT [place] [facility] Yes [id number] 10mg TAKE 1 [facility] 10 mg 8-30 TABLET BY ity of tablet 00:00: MOUTH AT [place] [facility] Yes [id number] 10mg TAKE 1 [facility] 10 mg 8-30 TABLET BY ity of tablet 00:00: MOUTH AT [place] [facility] Yes [id number] 10mg TAKE 1 [facility] 10 mg 8-30 TABLET BY ity of tablet 00:00: MOUTH AT [address] Yes [id number] 10mg TAKE 1 [facility] 10 mg 8-30 TABLET BY ity of tablet 00:00: MOUTH AT [place] [facility] Yes [id number] 10mg TAKE 1 [facility] 10 mg 8-30 TABLET BY ity of tablet 00:00: MOUTH AT [place] [facility] Yes [id number] 10mg TAKE 1 [facility] 10 mg 8-30 TABLET BY ity of tablet 00:00: MOUTH AT [place] [facility] Yes [id number] 10mg TAKE 1 [facility] 10 mg 8-30 TABLET BY ity of tablet 00:00: MOUTH AT [place] [facility] Yes [id number] 10mg TAKE 1 [facility] 10 mg 8-30 TABLET BY ity of tablet 00:00: MOUTH AT [place] [facility] Yes [id number] 10mg TAKE 1 [facility] 10 mg 8-30 TABLET BY ity of tablet 00:00: MOUTH AT [place] [facility] Yes [id number] 10mg TAKE 1 [facility] 10 mg 8-30 TABLET BY ity of tablet 00:00: MOUTH AT [place] [facility] Yes [id number] 10mg TAKE 1 [facility] 10 mg 8-30 TABLET BY ity of tablet 00:00: MOUTH AT [place] [facility] Yes [id number] 10mg TAKE 1 [facility] 10 mg 8-30 TABLET BY ity of tablet 00:00: MOUTH AT [place] [facility] Yes [id number] 10mg TAKE 1 [facility] 10 mg 8-30 TABLET BY ity of tablet 00:00: MOUTH AT [place] [facility] Yes [id number] 10mg TAKE 1 [facility] 10 mg 8-30 TABLET BY ity of tablet 00:00: MOUTH AT [address] Yes [id number] 10mg TAKE 1 [facility] 10 mg 8-30 TABLET BY ity of tablet 00:00: MOUTH AT [address] Yes [id number] 10mg TAKE 1 [facility] 10 mg 8-30 TABLET BY ity of tablet 00:00: MOUTH AT [place] [facility] [id number] 10mg TAKE 1 [facility] 10 mg 8-30 TABLET BY ity of tablet 00:00: MOUTH AT [place] [facility] Yes [id number] 10mg TAKE 1 [facility] 10 mg 8-30 TABLET BY ity of tablet 00:00: MOUTH AT [place] [facility] Yes [id number] 10mg TAKE 1 [facility] 10 mg 8-30 TABLET BY ity of tablet 00:00: MOUTH AT [place] [facility] 2021-0 2021- No [id number] 10mg TAKE 1 [facility] N 10 mg 8-30 12-29 TABLET BY ity of tablet 00:00: 00:00 MOUTH AT [place] 00 :00 [facility] TRUE METRIX 2021-0 Yes [id number] Use as [facility] GLUCOSE 8-29 directed ity of TEST STRIP 00:00: for once a [place] day [facility] glucose Branch monitoring for ICD E11.9 TRUE METRIX 2-0 Yes [id number] Use as [facility] GLUCOSE 8-29 directed ity of METER Kit 00:00: [place] [facility] glucose Branch monitoring for ICD E11.9 TRUE METRIX 2022-0 Yes [id number] Use as [facility] GLUCOSE 8-29 directed ity of TEST STRIP 00:00: for once [place] Medical glucose Branch monitoring for ICD E11.9 TRUE METRIX 2022-0 Yes [id number] Use as [facility] GLUCOSE 8-29 directed ity of METER Kit 00:00: [place] [facility] glucose Branch monitoring for ICD E11.9 TRUE METRIX 2022-0 Yes [id number] Use as [facility] GLUCOSE 8-29 directed ity of TEST STRIP 00:00: for once [place] Medical glucose Branch monitoring for ICD E11.9 TRUE METRIX 2022-0 Yes [id number] Use as [facility] GLUCOSE 8-29 directed ity of METER Kit 00:00: [place] [facility] glucose [facility] monitoring for ICD E11.9 TRUE METRIX 2022-0 Yes [id number] Use as [facility] GLUCOSE 8-29 directed ity of TEST STRIP 00:00: for once [place] Medical glucose Branch monitoring for ICD E11.9 TRUE METRIX 2022-0 Yes [id number] Use as [facility] GLUCOSE 8-29 directed ity of METER Kit 00:00: [place] [facility] glucose Branch monitoring for ICD E11.9 TRUE METRIX 2022-0 Yes [id number] Use as [facility] GLUCOSE 8-29 directed ity of TEST STRIP 00:00: for once [place] Medical glucose Branch monitoring for ICD E11.9 TRUE METRIX 2022-0 Yes [id number] Use as [facility] GLUCOSE 8-29 directed ity of METER Kit 00:00: for [place] [facility] glucose Branch monitoring for ICD E11.9 TRUE METRIX 2022-0 Yes [id number] Use as [facility] GLUCOSE 8-29 directed ity of TEST STRIP 00:00: for once [place] Medical glucose Branch monitoring for ICD E11.9 TRUE METRIX 2022-0 Yes [id number] Use as [facility] GLUCOSE 8-29 directed ity of METER Kit 00:00: for [place] [facility] glucose [facility] monitoring for ICD E11.9 TRUE METRIX 2022-0 Yes [id number] Use as [facility] GLUCOSE 8-29 directed ity of TEST STRIP 00:00: for once [place] [facility] glucose Branch monitoring for ICD E11.9 TRUE METRIX 2022-0 Yes [id number] Use as [facility] GLUCOSE 8-29 directed ity of METER Kit 00:00: for [place] [facility] glucose [facility] monitoring for ICD E11.9 TRUE METRIX 2022-0 Yes [id number] Use as [facility] GLUCOSE 8-29 directed ity of TEST STRIP 00:00: for once [place] day Medical glucose Branch monitoring for ICD E11.9 TRUE METRIX 2022-0 Yes [id number] Use as [facility] GLUCOSE 8-29 directed ity of METER Kit 00:00: for [place] [facility] glucose [facility] monitoring for ICD E11.9 TRUE METRIX 2022-0 Yes [id number] Use as [facility] GLUCOSE 8-29 directed ity of TEST STRIP 00:00: for once [place] Medical glucose Branch monitoring for ICD E11.9 TRUE METRIX 2022-0 Yes [id number] Use as [facility] GLUCOSE 8-29 directed ity of METER Kit 00:00: for [place] [facility] glucose Branch monitoring for ICD E11.9 TRUE METRIX 2022-0 Yes [id number] Use as [facility] GLUCOSE 8-29 directed ity of TEST STRIP 00:00: for once [place] day Medical glucose Branch monitoring for ICD E11.9 TRUE METRIX 2022-0 Yes [id number] Use as [facility] GLUCOSE 8-29 directed ity of METER Kit 00:00: for [place] [facility] glucose Branch monitoring for ICD E11.9 TRUE METRIX 2022-0 Yes [id number] Use as [facility] GLUCOSE 8-29 directed ity of TEST STRIP 00:00: for once [place] Medical glucose Branch monitoring for ICD E11.9 TRUE METRIX 2022-0 Yes [id number] Use as [facility] GLUCOSE 8-29 directed ity of METER Kit 00:00: for [place] [facility] glucose Branch monitoring for ICD E11.9 TRUE METRIX 2022-0 Yes [id number] Use as [facility] GLUCOSE 8-29 directed ity of TEST STRIP 00:00: for once [place] [facility] glucose Branch monitoring for ICD E11.9 TRUE METRIX 2022-0 Yes [id number] Use as [facility] GLUCOSE 8-29 directed ity of METER Kit 00:00: for [place] [facility] glucose [facility] monitoring for ICD E11.9 TRUE METRIX 2022-0 Yes [id number] Use as [facility] GLUCOSE 8-29 directed ity of TEST STRIP 00:00: for once [place] [facility] glucose Branch monitoring for ICD E11.9 TRUE METRIX 2022-0 Yes [id number] Use as [facility] GLUCOSE 8-29 directed ity of METER Kit 00:00: for [place] [facility] glucose [facility] monitoring for ICD E11.9 TRUE METRIX 2022-0 Yes [id number] Use as [facility] GLUCOSE 8-29 directed ity of TEST STRIP 00:00: for once [place] Medical glucose Branch monitoring for ICD E11.9 TRUE METRIX 2022-0 Yes [id number] Use as [facility] GLUCOSE 8-29 directed ity of METER Kit 00:00: for [place] [facility] glucose Branch monitoring for ICD E11.9 TRUE METRIX 2022-0 Yes [id number] Use as [facility] GLUCOSE 8-29 directed ity of TEST STRIP 00:00: for once [place] [facility] glucose Branch monitoring for ICD E11.9 TRUE METRIX 2022-0 Yes [id number] Use as [facility] GLUCOSE 8-29 directed ity of METER Kit 00:00: for [place] [facility] glucose Branch monitoring for ICD E11.9 TRUE METRIX 2022-0 Yes [id number] Use as [facility] GLUCOSE 8-29 directed ity of TEST STRIP 00:00: for once [place] day Medical glucose Branch monitoring for ICD E11.9 TRUE METRIX 2022-0 Yes [id number] Use as [facility] GLUCOSE 8-29 directed ity of METER Kit 00:00: for [place] [facility] glucose Branch monitoring for ICD E11.9 TRUE METRIX 2022-0 Yes [id number] Use as [facility] GLUCOSE 8-29 directed ity of TEST STRIP 00:00: for once [place] Medical glucose Branch monitoring for ICD E11.9 TRUE METRIX 2022-0 Yes [id number] Use as [facility] GLUCOSE 8-29 directed ity of METER Kit 00:00: for [place] [facility] glucose Branch monitoring for ICD E11.9 TRUE METRIX 2022-0 Yes [id number] Use as [facility] GLUCOSE 8-29 directed ity of TEST STRIP 00:00: for once a [place] day Medical glucose Branch monitoring for ICD E11.9 TRUE METRIX 2022-0 Yes [id number] Use as [facility] GLUCOSE 8-29 directed ity of METER Kit 00:00: for [place] [facility] glucose Branch monitoring for ICD E11.9 TRUE METRIX 2022-0 Yes [id number] Use as [facility] GLUCOSE 8-29 directed ity of TEST STRIP 00:00: for once a [place] [facility] glucose Branch monitoring for ICD E11.9 TRUE METRIX 2022-0 Yes [id number] Use as [facility] GLUCOSE 8-29 directed ity of METER Kit 00:00: for [place] [facility] glucose Branch monitoring for ICD E11.9 TRUE METRIX 2022-0 Yes [id number] Use as [facility] GLUCOSE 8-29 directed ity of TEST STRIP 00:00: for once a [place] day Medical glucose Branch monitoring for ICD E11.9 TRUE METRIX 2022-0 Yes [id number] Use as [facility] GLUCOSE 8-29 directed ity of METER Kit 00:00: for [place] [facility] glucose Branch monitoring for ICD E11.9 TRUE METRIX 2022-0 Yes [id number] Use as [facility] GLUCOSE 8-29 directed ity of TEST STRIP 00:00: for once a [place] Medical glucose Branch monitoring for ICD E11.9 TRUE METRIX 2022-0 Yes [id number] Use as [facility] GLUCOSE 8-29 directed ity of METER Kit 00:00: for [place] [facility] glucose Branch monitoring for ICD E11.9 TRUE METRIX 2022-0 Yes [id number] Use as [facility] GLUCOSE 8-29 directed ity of TEST STRIP 00:00: for once a [place] Medical glucose Branch monitoring for ICD E11.9 TRUE METRIX 2022-0 Yes [id number] Use as [facility] GLUCOSE 8-29 directed ity of METER Kit 00:00: for [place] [facility] glucose Branch monitoring for ICD E11.9 TRUE METRIX 2022-0 Yes [id number] Use as [facility] GLUCOSE 8-29 directed ity of TEST STRIP 00:00: for once a [place] [facility] glucose Branch monitoring for ICD E11.9 TRUE METRIX 2022-0 Yes [id number] Use as [facility] GLUCOSE 8-29 directed ity of METER Kit 00:00: for [place] [facility] glucose Branch monitoring for ICD E11.9 TRUE METRIX 2022-0 Yes [id number] Use as [facility] GLUCOSE 8-29 directed ity of TEST STRIP 00:00: for once a [place] [facility] glucose Branch monitoring for ICD E11.9 TRUE METRIX 2022-0 Yes [id number] Use as [facility] GLUCOSE 8-29 directed ity of METER Kit 00:00: for [place] [facility] glucose Branch monitoring for ICD E11.9 TRUE METRIX 2022-0 Yes [id number] Use as [facility] GLUCOSE 8-29 directed ity of TEST STRIP 00:00: for once a [place] Medical glucose Branch monitoring for ICD E11.9 TRUE METRIX 2022-0 Yes [id number] Use as [facility] GLUCOSE 8-29 directed ity of METER Kit 00:00: for [place] [facility] glucose Branch monitoring for ICD E11.9 TRUE METRIX 2022-0 Yes [id number] Use as [facility] GLUCOSE 8-29 directed ity of TEST STRIP 00:00: for once a [place] Medical glucose Branch monitoring for ICD E11.9 TRUE METRIX 2022-0 Yes [id number] Use as [facility] GLUCOSE 8-29 directed ity of METER Kit 00:00: for [place] [facility] glucose Branch monitoring for ICD E11.9 TRUE METRIX 2022-0 Yes [id number] Use as [facility] GLUCOSE 8-29 directed ity of METER Kit 00:00: for [place] [facility] glucose Branch monitoring for ICD E11.9 TRUE METRIX 2022-0 Yes [id number] Use as [facility] GLUCOSE 8-29 directed ity of METER Kit 00:00: for [place] [facility] glucose Branch monitoring for ICD E11.9 TRUE METRIX 2022-0 Yes [id number] Use as [facility] GLUCOSE 8-29 directed ity of METER Kit 00:00: for [place] [facility] glucose Branch monitoring for ICD E11.9 TRUE METRIX 2022-0 Yes [id number] Use as [facility] GLUCOSE 8-29 directed ity of METER Kit 00:00: for [place] [facility] glucose Branch monitoring for ICD E11.9 TRUE METRIX 2022-0 Yes [id number] Use as [facility] GLUCOSE 8-29 directed ity of METER Kit 00:00: for [place] [facility] glucose Branch monitoring for ICD E11.9 TRUE METRIX 2022-0 Yes [id number] Use as [facility] GLUCOSE 8-29 directed ity of METER Kit 00:00: for [place] [facility] glucose Branch monitoring for ICD E11.9 TRUE METRIX 2022-0 Yes [id number] Use as [facility] GLUCOSE 8-29 directed ity of METER Kit 00:00: [place] Medical glucose Branch monitoring for ICD E11.9 TRUE METRIX 2022-0 Yes [id number] Use as [facility] GLUCOSE 8-29 directed ity of METER Kit 00:00: for once a Medical glucose Branch monitoring for ICD E11.9 TRUE METRIX 2022-0 Yes [id number] Use as [facility] GLUCOSE 8-29 directed ity of METER Kit 00:00: for once a Medical glucose Branch monitoring for ICD E11.9 TRUE METRIX 2022-0 Yes [id number] Use as [facility] GLUCOSE 8-29 directed ity of METER Kit 00:00: for once a Medical glucose Branch monitoring for ICD E11.9 TRUE METRIX 2022-0 Yes [id number] Use as [facility] GLUCOSE 8-29 directed ity of METER Kit 00:00: for once a Medical glucose Branch monitoring for ICD E11.9 TRUE METRIX 2022-0 Yes [id number] Use as [facility] GLUCOSE 8-29 directed ity of METER Kit 00:00: for once a Medical glucose Branch monitoring for ICD E11.9 TRUE METRIX 2022-0 Yes [id number] Use as [facility] GLUCOSE 8-29 directed ity of METER Kit 00:00: for once a Medical glucose Branch monitoring for ICD E11.9 TRUE METRIX 2022-0 Yes [id number] Use as [facility] GLUCOSE 8-29 directed ity of METER Kit 00:00: for once a Medical glucose Branch monitoring for ICD E11.9 TRUE METRIX 2022-0 Yes [id number] Use as [facility] GLUCOSE 8-29 directed ity of METER Kit 00:00: for once a Medical glucose Branch monitoring for ICD E11.9 TRUE METRIX 2022-0 Yes [id number] Use as [facility] GLUCOSE 8-29 directed ity of METER Kit 00:00: for once a day Medical glucose Branch monitoring for ICD E11.9 TRUE METRIX 2022-0 Yes [id number] Use as [facility] GLUCOSE 8-29 directed ity of METER Kit 00:00: for once a day Medical glucose Branch monitoring for ICD E11.9 TRUE METRIX 2022-0 Yes [id number] Use as [facility] GLUCOSE 8-29 directed ity of METER Kit 00:00: for once a day Medical glucose Branch monitoring for ICD E11.9 TRUE METRIX 2022-0 Yes [id number] Use as [facility] GLUCOSE 8-29 directed ity of METER Kit 00:00: for once a Medical glucose Branch monitoring for ICD E11.9 TRUE METRIX 2022-0 Yes [id number] Use as [facility] GLUCOSE 8-29 directed ity of METER Kit 00:00: for once a Medical glucose Branch monitoring for ICD E11.9 TRUE METRIX 2022-0 Yes [id number] Use as [facility] GLUCOSE 8-29 directed ity of METER Kit 00:00: for once a Medical glucose Branch monitoring for ICD E11.9 TRUE METRIX 2022-0 Yes [id number] Use as [facility] GLUCOSE 8-29 directed ity of METER Kit 00:00: for once a Medical glucose Branch monitoring for ICD E11.9 TRUE METRIX 2022-0 Yes [id number] Use as [facility] GLUCOSE 8-29 directed ity of METER Kit 00:00: for once a Medical glucose Branch monitoring for ICD E11.9 TRUE METRIX 2022-0 Yes [id number] Use as [facility] GLUCOSE 8-29 directed ity of METER Kit 00:00: for once a Medical glucose Branch monitoring for ICD E11.9 TRUE METRIX 2022-0 Yes [id number] Use as [facility] GLUCOSE 8-29 directed ity of METER Kit 00:00: for once a Medical glucose Branch monitoring for ICD E11.9 TRUE METRIX 2022-0 Yes [id number] Use as [facility] GLUCOSE 8-29 directed ity of METER Kit 00:00: for once a day Medical glucose Branch monitoring for ICD E11.9 TRUE METRIX 2022-0 Yes [id number] Use as [facility] GLUCOSE 8-29 directed ity of METER Kit 00:00: for once a day Medical glucose Branch monitoring for ICD E11.9 TRUE METRIX 2022-0 Yes [id number] Use as [facility] GLUCOSE 8-29 directed ity of METER Kit 00:00: for once a day Medical glucose Branch monitoring for ICD E11.9 TRUE METRIX 2022-0 Yes [id number] Use as [facility] GLUCOSE 8-29 directed ity of METER Kit 00:00: for once a day Medical glucose Branch monitoring for ICD E11.9 TRUE METRIX 2022-0 Yes [id number] Use as [facility] GLUCOSE 8-29 directed ity of METER Kit 00:00: for once a day Medical glucose Branch monitoring for ICD E11.9 TRUE METRIX 2022-0 Yes [id number] Use as [facility] GLUCOSE 8-29 directed ity of METER Kit 00:00: for once a day Medical glucose Branch monitoring for ICD E11.9 TRUE METRIX 2022-0 Yes [id number] Use as [facility] GLUCOSE 8-29 directed ity of METER Kit 00:00: for once a Medical glucose Branch monitoring for ICD E11.9 TRUE METRIX 2022-0 Yes [id number] Use as [facility] GLUCOSE 8-29 directed ity of METER Kit 00:00: for once a Medical glucose Branch monitoring for ICD E11.9 TRUE METRIX 2022-0 Yes [id number] Use as [facility] GLUCOSE 8-29 directed ity of METER Kit 00:00: for once a Medical glucose Branch monitoring for ICD E11.9 TRUE METRIX 2022-0 Yes [id number] Use as [facility] GLUCOSE 8-29 directed ity of METER Kit 00:00: for once a Medical glucose Branch monitoring for ICD E11.9 TRUE METRIX 2022-0 Yes [id number] Use as [facility] GLUCOSE 8-29 directed ity of METER Kit 00:00: for once a day Medical glucose Branch monitoring for ICD E11.9 TRUE METRIX 2022-0 Yes [id number] Use as [facility] GLUCOSE 8-29 directed ity of METER Kit 00:00: for once a day Medical glucose Branch monitoring for ICD E11.9 TRUE METRIX 2022-0 Yes [id number] Use as [facility] GLUCOSE 8-29 directed ity of METER Kit 00:00: for once a [place] day [facility] glucose [facility] monitoring for ICD E11.9 TRUE METRIX 2022-0 Yes [id number] Use as [facility] GLUCOSE 8-29 directed ity of METER Kit 00:00: for once a Medical glucose Branch monitoring for ICD E11.9 TRUE METRIX 2022-0 Yes [id number] Use as [facility] GLUCOSE 8-29 directed ity of METER Kit 00:00: for once a Medical glucose Branch monitoring for ICD E11.9 TRUE METRIX 2022-0 Yes [id number] Use as [facility] GLUCOSE 8-29 directed ity of METER Kit 00:00: for once a Medical glucose Branch monitoring for ICD E11.9 TRUE METRIX 2022-0 Yes [id number] Use as [facility] GLUCOSE 8-29 directed ity of METER Kit 00:00: for once a Medical glucose Branch monitoring for ICD E11.9 TRUE METRIX 2022-0 Yes [id number] Use as [facility] GLUCOSE 8-29 directed ity of METER Kit 00:00: for once a Medical glucose Branch monitoring for ICD E11.9 TRUE METRIX 2022-0 Yes [id number] Use as [facility] GLUCOSE 8-29 directed ity of METER Kit 00:00: for once a Medical glucose Branch monitoring for ICD E11.9 TRUE METRIX 2022-0 Yes [id number] Use as [facility] GLUCOSE 8-29 directed ity of METER Kit 00:00: for once a Medical glucose Branch monitoring for ICD E11.9 TRUE METRIX 2022-0 Yes [id number] Use as [facility] GLUCOSE 8-29 directed ity of METER Kit 00:00: for once a Medical glucose Branch monitoring for ICD E11.9 TRUE METRIX 2022-0 Yes [id number] Use as [facility] GLUCOSE 8-29 directed ity of METER Kit 00:00: for once a day Medical glucose Branch monitoring for ICD E11.9 TRUE METRIX 2022-0 Yes [id number] Use as [facility] GLUCOSE 8-29 directed ity of METER Kit 00:00: for once a day Medical glucose Branch monitoring for ICD E11.9 TRUE METRIX 2022-0 Yes [id number] Use as [facility] GLUCOSE 8-29 directed ity of METER Kit 00:00: for once a day Medical glucose Branch monitoring for ICD E11.9 TRUE METRIX 2022-0 Yes [id number] Use as [facility] GLUCOSE 8-29 directed ity of METER Kit 00:00: for once a day Medical glucose Branch monitoring for ICD E11.9 TRUE METRIX 2022-0 Yes [id number] Use as [facility] GLUCOSE 8-29 directed ity of METER Kit 00:00: for once a Medical glucose Branch monitoring for ICD E11.9 TRUE METRIX 2022-0 Yes [id number] Use as [facility] GLUCOSE 8-29 directed ity of METER Kit 00:00: for once a day Medical glucose Branch monitoring for ICD E11.9 TRUE METRIX 2022-0 Yes [id number] Use as [facility] GLUCOSE 8-29 directed ity of METER Kit 00:00: for once a Medical glucose Branch monitoring for ICD E11.9 TRUE METRIX 2022-0 Yes [id number] Use as [facility] GLUCOSE 8-29 directed ity of METER Kit 00:00: for once a Medical glucose Branch monitoring for ICD E11.9 TRUE METRIX 2022-0 Yes [id number] Use as [facility] GLUCOSE 8-29 directed ity of METER Kit 00:00: for once a Medical glucose Branch monitoring for ICD E11.9 TRUE METRIX 2022-0 Yes [id number] Use as [facility] GLUCOSE 8-29 directed ity of METER Kit 00:00: for once a Medical glucose Branch monitoring for ICD E11.9 TRUE METRIX 2022-0 Yes [id number] Use as [facility] GLUCOSE 8-29 directed ity of METER Kit 00:00: for once a day Medical glucose Branch monitoring for ICD E11.9 TRUE METRIX 2022-0 Yes [id number] Use as [facility] GLUCOSE 8-29 directed ity of METER Kit 00:00: for once a day Medical glucose Branch monitoring for ICD E11.9 TRUE METRIX 2022-0 Yes [id number] Use as [facility] GLUCOSE 8-29 directed ity of METER Kit 00:00: for once a day Medical glucose Branch monitoring for ICD E11.9 TRUE METRIX 2022-0 Yes [id number] Use as [facility] GLUCOSE 8-29 directed ity of METER Kit 00:00: for once a day Medical glucose Branch monitoring for ICD E11.9 TRUE METRIX 2022-0 Yes [id number] Use as [facility] GLUCOSE 8-29 directed ity of METER Kit 00:00: for once a Medical glucose Branch monitoring for ICD E11.9 TRUE METRIX 2022-0 Yes [id number] Use as [facility] GLUCOSE 8-29 directed ity of METER Kit 00:00: for once a Medical glucose Branch monitoring for ICD E11.9 TRUE METRIX 2022-0 Yes [id number] Use as [facility] GLUCOSE 8-29 directed ity of METER Kit 00:00: for once a Medical glucose Branch monitoring for ICD E11.9 TRUE METRIX 2022-0 Yes [id number] Use as [facility] GLUCOSE 8-29 directed ity of METER Kit 00:00: for once a Medical glucose Branch monitoring for ICD E11.9 TRUE METRIX 2022-0 Yes [id number] Use as [facility] GLUCOSE 8-29 directed ity of METER Kit 00:00: for once a Medical glucose Branch monitoring for ICD E11.9 TRUE METRIX 2022-0 Yes [id number] Use as [facility] GLUCOSE 8-29 directed ity of METER Kit 00:00: for once a Medical glucose Branch monitoring for ICD E11.9 TRUE METRIX 2022-0 Yes [id number] Use as [facility] GLUCOSE 8-29 directed ity of METER Kit 00:00: for once a Medical glucose Branch monitoring for ICD E11.9 TRUE METRIX 2022-0 Yes [id number] Use as [facility] GLUCOSE 8-29 directed ity of METER Kit 00:00: for once a Medical glucose Branch monitoring for ICD E11.9 TRUE METRIX 2022-0 Yes [id number] Use as [facility] GLUCOSE 8-29 directed ity of METER Kit 00:00: for once a day Medical glucose Branch monitoring for ICD E11.9 TRUE METRIX 2022-0 Yes [id number] Use as [facility] GLUCOSE 8-29 directed ity of METER Kit 00:00: for once a Medical glucose Branch monitoring for ICD E11.9 TRUE METRIX 2022-0 Yes [id number] Use as [facility] GLUCOSE 8-29 directed ity of METER Kit 00:00: for [place] [facility] glucose [facility] monitoring for ICD E11.9 TRUE METRIX 2022-0 Yes [id number] Use as [facility] GLUCOSE 8-29 directed ity of METER Kit 00:00: [place] [facility] glucose Branch monitoring for ICD E11.9 TRUE METRIX 2022-0 Yes [id number] [facility] GLU[facility]SE 8-29 directed [facility] of METER Kit 00:00: [place] [facility] glucose Branch monitoring for ICD E11.9 TRUE METRIX 2022-0 Yes [id number] Use [facility] GLUCOSE 8-29 directed [facility] of METER Kit 00:00: for [place] [facility] glucose Branch monitoring for ICD E11.9 TRUE METRIX 2022-0 Yes [id number] Use [facility] GLUCOSE 8-29 directed [facility]y of TEST STRIP 00:00: for once [place] day Medical glucose Branch monitoring for ICD E11.9 TRUE METRIX 2022-0 Yes [id number] Use as [facility] GLUCOSE 8-29 directed [facility] of METER Kit 00:00: for [place] [facility] glucose Branch monitoring for ICD E11.9 TRUE METRIX 2022-0 Yes [id number] Use as [facility] GLUCOSE 8-29 directed ity of TEST STRIP 00:00: for [place] day Medical glucose Branch monitoring for ICD E11.9 TRUE METRIX 2022-0 Yes [id number] Use as [facility] GLUCOSE 8-29 directed [facility]y of METER Kit 00:00: for [place] [facility] glucose Branch monitoring for ICD E11.9 TRUE METRIX 2022-0 Yes [id number] Use as [facility] GLUCOSE 8-29 directed ity of TEST STRIP 00:00: for [place] day Medical glucose Branch monitoring for ICD E11.9 TRUE METRIX 2022-0 Yes [id number] Use as [facility] GLUCOSE 8-29 directed ity of METER Kit 00:00: for [place] [facility] glucose Branch monitoring for ICD E11.9 TRUE METRIX 2022-0 Yes [id number] Use as [facility] GLUCOSE 8-29 directed ity of TEST STRIP 00:00: for [place] day Medical glucose Branch monitoring for ICD E11.9 TRUE METRIX 2022-0 Yes [id number] Use as [facility] GLUCOSE 8-29 directed ity of METER Kit 00:00: for [place] [facility] glucose Branch monitoring for ICD E11.9 TRUE METRIX 2022-0 Yes [id number] Use as [facility] GLUCOSE 8-29 directed ity of TEST STRIP 00:00: for [place] day Medical glucose Branch monitoring for ICD E11.9 TRUE METRIX 2022-0 Yes [id number] Use as [facility] GLUCOSE 8-29 directed ity of METER Kit 00:00: for [place] [facility] glucose [facility] monitoring for ICD E11.9 TRUE METRIX 2022-0 Yes [id number] Use as [facility] GLUCOSE 8-29 directed ity of TEST STRIP 00:00: for [place] day Medical glucose Branch monitoring for ICD E11.9 TRUE METRIX 2022-0 Yes [id number] Use as [facility] GLUCOSE 8-29 directed [facility]y of METER Kit 00:00: for [place] [facility] glucose [facility] monitoring for ICD E11.9 TRUE METRIX 2022-0 Yes [id number] Use as [facility] GLUCOSE 8-29 directed ity of TEST STRIP 00:00: for [place] [facility] glucose Branch monitoring for ICD E11.9 TRUE METRIX 2022-0 Yes [id number] Use as [facility] GLUCOSE 8-29 directed [facility]y of METER Kit 00:00: for [place] [facility] glucose Branch monitoring for ICD E11.9 TRUE METRIX 2022-0 Yes [id number] Use as [facility] GLUCOSE 8-29 directed ity of TEST STRIP 00:00: for [place] day Medical glucose Branch monitoring for ICD E11.9 TRUE METRIX 2022-0 Yes [id number] Use as [facility] GLUCOSE 8-29 directed ity of METER Kit 00:00: for [place] [facility] glucose [facility] monitoring for ICD E11.9 TRUE METRIX 2022-0 Yes [id number] Use as [facility] GLUCOSE 8-29 directed ity of TEST STRIP 00:00: for [place] [facility] glucose Branch monitoring for ICD E11.9 TRUE METRIX 2022-0 Yes [id number] Use as [facility] GLUCOSE 8-29 directed [facility]y of METER Kit 00:00: [place] [facility] glucose [facility] monitoring for ICD E11.9 TRUE METRIX 2022-0 Yes [id number] Use as [facility] GLUCOSE 8-29 directed ity of TEST STRIP 00:00: for [place] day Medical glucose Branch monitoring for ICD E11.9 TRUE METRIX 2022-0 Yes [id number] Use as [facility] GLUCOSE 8-29 directed ity of METER Kit 00:00: for [place] [facility] glucose [facility] monitoring for ICD E11.9 TRUE METRIX 2022-0 Yes [id number] Use as [facility] GLUCOSE 8-29 directed ity of TEST STRIP 00:00: for [place] day Medical glucose Branch monitoring for ICD E11.9 TRUE METRIX 2022-0 Yes [id number] Use as [facility] GLUCOSE 8-29 directed [facility]y of METER Kit 00:00: for [place] [facility] glucose [facility] monitoring for ICD E11.9 TRUE METRIX 2022-0 Yes [id number] Use as [facility] GLUCOSE 8-29 directed ity of TEST STRIP 00:00: for [place] day Medical glucose Branch monitoring for ICD E11.9 TRUE METRIX 2022-0 Yes [id number] Use as [facility] GLUCOSE 8-29 directed ity of METER Kit 00:00: for [place] [facility] glucose Branch monitoring for ICD E11.9 TRUE METRIX 2022-0 Yes [id number] Use as [facility] GLUCOSE 8-29 directed ity of TEST STRIP 00:00: for [place] Medical glucose Branch monitoring for ICD E11.9 TRUE METRIX 2022-0 Yes [id number] Use as [facility] GLUCOSE 8-29 directed ity of METER Kit 00:00: for [place] [facility] glucose Branch monitoring for ICD E11.9 TRUE METRIX 2022-0 Yes [id number] Use as [facility] GLUCOSE 8-29 directed ity of TEST STRIP 00:00: for once [place] day Medical glucose Branch monitoring for ICD E11.9 TRUE METRIX 2022-0 Yes [id number] Use as [facility] GLUCOSE 8-29 directed ity of METER Kit 00:00: for [place] [facility] glucose [facility] monitoring for ICD E11.9 TRUE METRIX 2022-0 Yes [id number] Use as [facility] GLUCOSE 8-29 directed ity of TEST STRIP 00:00: for [place] day Medical glucose Branch monitoring for ICD E11.9 TRUE METRIX 2022-0 Yes [id number] Use as [facility] GLUCOSE 8-29 directed ity of METER Kit 00:00: for [place] [facility] glucose Branch monitoring for ICD E11.9 TRUE METRIX 2022-0 Yes [id number] Use as [facility] GLUCOSE 8-29 directed ity of TEST STRIP 00:00: for once [place] day Medical glucose Branch monitoring for ICD E11.9 TRUE METRIX 2022-0 Yes [id number] Use as [facility] GLUCOSE 8-29 directed ity of METER Kit 00:00: for [place] [facility] glucose Branch monitoring for ICD E11.9 TRUE METRIX 2022-0 Yes [id number] Use as [facility] GLUCOSE 8-29 directed ity of TEST STRIP 00:00: for once [place] day Medical glucose Branch monitoring for ICD E11.9 TRUE METRIX 2022-0 Yes [id number] Use as [facility] GLUCOSE 8-29 directed ity of METER Kit 00:00: for [place] [facility] glucose Branch monitoring for ICD E11.9 TRUE METRIX 2022-0 Yes [id number] Use as [facility] GLUCOSE 8-29 directed ity of TEST STRIP 00:00: for once [place] day Medical glucose Branch monitoring for ICD E11.9 TRUE METRIX 2022-0 Yes [id number] Use as [facility] GLUCOSE 8-29 directed ity of METER Kit 00:00: for [place] [facility] glucose Branch monitoring for ICD E11.9 TRUE METRIX 2022-0 Yes [id number] Use as [facility] GLUCOSE 8-29 directed ity of TEST STRIP 00:00: for [place] day Medical glucose Branch monitoring for ICD E11.9 TRUE METRIX 2022-0 Yes [id number] Use as [facility] GLUCOSE 8-29 directed ity of METER Kit 00:00: for [place] [facility] glucose Branch monitoring for ICD E11.9 TRUE METRIX 2022-0 Yes [id number] Use as [facility] GLUCOSE 8-29 directed ity of TEST STRIP 00:00: for [place] day Medical glucose Branch monitoring for ICD E11.9 TRUE METRIX 2022-0 Yes [id number] Use as [facility] GLUCOSE 8-29 directed ity of METER Kit 00:00: for [place] [facility] glucose [facility] monitoring for ICD E11.9 TRUE METRIX 2022-0 Yes [id number] Use as [facility] GLUCOSE 8-29 directed ity of TEST STRIP 00:00: for once [place] day Medical glucose Branch monitoring for ICD E11.9 TRUE METRIX 2022-0 Yes [id number] Use as [facility] GLUCOSE 8-29 directed ity of METER Kit 00:00: for [place] [facility] glucose Branch monitoring for ICD E11.9 TRUE METRIX 2022-0 Yes [id number] Use as [facility] GLUCOSE 8-29 directed ity of TEST STRIP 00:00: for once [place] day Medical glucose Branch monitoring for ICD E11.9 TRUE METRIX 2022-0 Yes [id number] Use as [facility] GLUCOSE 8-29 directed ity of METER Kit 00:00: for [place] [facility] glucose Branch monitoring for ICD E11.9 TRUE METRIX 2022-0 Yes [id number] Use as [facility] GLUCOSE 8-29 directed ity of TEST STRIP 00:00: for once [place] day Medical glucose Branch monitoring for ICD E11.9 TRUE METRIX 2022-0 Yes [id number] Use as [facility] GLUCOSE 8-29 directed ity of METER Kit 00:00: for [place] [facility] glucose Branch monitoring for ICD E11.9 TRUE METRIX 2022-0 Yes [id number] Use as [facility] GLUCOSE 8-29 directed ity of TEST STRIP 00:00: for once [place] day Medical glucose Branch monitoring for ICD E11.9 TRUE METRIX 2022-0 Yes [id number] Use as [facility] GLUCOSE 8-29 directed ity of METER Kit 00:00: for [place] [facility] glucose Branch monitoring for ICD E11.9 TRUE METRIX 2022-0 Yes [id number] Use as [facility] GLUCOSE 8-29 directed ity of TEST STRIP 00:00: for once [place] day Medical glucose Branch monitoring for ICD E11.9 TRUE METRIX 2022-0 Yes [id number] Use as [facility] GLUCOSE 8-29 directed ity of METER Kit 00:00: for [place] [facility] glucose Branch monitoring for ICD E11.9 TRUE METRIX 2022-0 Yes [id number] Use as [facility] GLUCOSE 8-29 directed ity of TEST STRIP 00:00: for once [place] day Medical glucose Branch monitoring for ICD E11.9 TRUE METRIX 2022-0 Yes [id number] Use as [facility] GLUCOSE 8-29 directed ity of METER Kit 00:00: for [place] [facility] glucose Branch monitoring for ICD E11.9 TRUE METRIX 2022-0 Yes [id number] Use as [facility] GLUCOSE 8-29 directed ity of TEST STRIP 00:00: for once [place] day Medical glucose Branch monitoring for ICD E11.9 TRUE METRIX 2022-0 Yes [id number] Use as [facility] GLUCOSE 8-29 directed ity of METER Kit 00:00: for [place] [facility] glucose Branch monitoring for ICD E11.9 TRUE METRIX 2022-0 Yes [id number] Use as [facility] GLUCOSE 8-29 directed ity of TEST STRIP 00:00: for once [place] day Medical glucose Branch monitoring for ICD E11.9 TRUE METRIX 2022-0 Yes [id number] Use as [facility] GLUCOSE 8-29 directed ity of METER Kit 00:00: for [place] [facility] glucose Branch monitoring for ICD E11.9 TRUE METRIX 2022-0 Yes [id number] Use as [facility] GLUCOSE 8-29 directed ity of TEST STRIP 00:00: for once [place] day Medical glucose Branch monitoring for ICD E11.9 TRUE METRIX 2022-0 Yes [id number] Use as [facility] GLUCOSE 8-29 directed ity of METER Kit 00:00: for [place] [facility] glucose [facility] monitoring for ICD E11.9 TRUE METRIX 2022-0 Yes [id number] Use as [facility] GLUCOSE 8-29 directed ity of TEST STRIP 00:00: for once [place] day Medical glucose Branch monitoring for ICD E11.9 TRUE METRIX 2022-0 Yes [id number] Use as [facility] GLUCOSE 8-29 directed ity of METER Kit 00:00: for [place] [facility] glucose Branch monitoring for ICD E11.9 TRUE METRIX 2022-0 Yes [id number] Use as [facility] GLUCOSE 8-29 directed ity of TEST STRIP 00:00: for once [place] day Medical glucose Branch monitoring for ICD E11.9 TRUE METRIX 2022-0 Yes [id number] Use as [facility] GLUCOSE 8-29 directed ity of METER Kit 00:00: for [place] [facility] glucose Branch monitoring for ICD E11.9 TRUE METRIX 2022-0 Yes [id number] Use as [facility] GLUCOSE 8-29 directed ity of TEST STRIP 00:00: for once [place] day Medical glucose Branch monitoring for ICD E11.9 TRUE METRIX 2022-0 Yes [id number] Use as [facility] GLUCOSE 8-29 directed ity of METER Kit 00:00: for [place] [facility] glucose [facility] monitoring for ICD E11.9 TRUE METRIX 2022-0 Yes [id number] Use as [facility] GLUCOSE 8-29 directed ity of TEST STRIP 00:00: for once [place] day Medical glucose Branch monitoring for ICD E11.9 TRUE METRIX 2022-0 Yes [id number] Use as [facility] GLUCOSE 8-29 directed ity of METER Kit 00:00: for [place] [facility] glucose Branch monitoring for ICD E11.9 TRUE METRIX 2022-0 Yes [id number] Use as [facility] GLUCOSE 8-29 directed ity of TEST STRIP 00:00: for once [place] day Medical glucose Branch monitoring for ICD E11.9 TRUE METRIX 2022-0 Yes [id number] Use as [facility] GLUCOSE 8-29 directed ity of METER Kit 00:00: for [place] [facility] glucose Branch monitoring for ICD E11.9 TRUE METRIX 2022-0 Yes [id number] Use as [facility] GLUCOSE 8-29 directed ity of TEST STRIP 00:00: for once [place] day Medical glucose Branch monitoring for ICD E11.9 TRUE METRIX 2022-0 Yes [id number] Use as [facility] GLUCOSE 8-29 directed ity of METER Kit 00:00: for [place] [facility] glucose [facility] monitoring for ICD E11.9 TRUE METRIX 2022-0 Yes [id number] Use as [facility] GLUCOSE 8-29 directed ity of TEST STRIP 00:00: for once [place] day Medical glucose Branch monitoring for ICD E11.9 TRUE METRIX 2022-0 Yes [id number] Use as [facility] GLUCOSE 8-29 directed ity of METER Kit 00:00: for [place] [facility] glucose [facility] monitoring for ICD E11.9 TRUE METRIX 2022-0 Yes [id number] Use as [facility] GLUCOSE 8-29 directed ity of TEST STRIP 00:00: for once [place] day Medical glucose Branch monitoring for ICD E11.9 TRUE METRIX 2022-0 Yes [id number] Use as [facility] GLUCOSE 8-29 directed ity of METER Kit 00:00: for [place] [facility] glucose [facility] monitoring for ICD E11.9 TRUE METRIX 2022-0 Yes [id number] Use as [facility] GLUCOSE 8-29 directed ity of TEST STRIP 00:00: for [place] day Medical glucose Branch monitoring for ICD E11.9 TRUE METRIX 2022-0 Yes [id number] Use as [facility] GLUCOSE 8-29 directed ity of METER Kit 00:00: for [place] [facility] glucose [facility] monitoring for ICD E11.9 TRUE METRIX 2022-0 Yes [id number] Use as [facility] GLUCOSE 8-29 directed ity of TEST STRIP 00:00: for once [place] day Medical glucose Branch monitoring for ICD E11.9 TRUE METRIX 2022-0 Yes [id number] Use as [facility] GLUCOSE 8-29 directed ity of METER Kit 00:00: for [place] [facility] glucose [facility] monitoring for ICD E11.9 TRUE METRIX 2022-0 Yes [id number] Use as [facility] GLUCOSE 8-29 directed ity of TEST STRIP 00:00: for once [place] day Medical glucose Branch monitoring for ICD E11.9 TRUE METRIX 2022-0 Yes [id number] Use as [facility] GLUCOSE 8-29 directed ity of METER Kit 00:00: for [place] [facility] glucose [facility] monitoring for ICD E11.9 TRUE METRIX 2022-0 Yes [id number] Use as [facility] GLUCOSE 8-29 directed ity of TEST STRIP 00:00: for once [place] day Medical glucose Branch monitoring for ICD E11.9 TRUE METRIX 2022-0 Yes [id number] Use as [facility] GLUCOSE 8-29 directed ity of METER Kit 00:00: for [place] [facility] glucose [facility] monitoring for ICD E11.9 TRUE METRIX 2022-0 Yes [id number] Use as [facility] GLUCOSE 8-29 directed ity of TEST STRIP 00:00: for once [place] day Medical glucose Branch monitoring for ICD E11.9 TRUE METRIX 2022-0 Yes [id number] Use as [facility] GLUCOSE 8-29 directed ity of METER Kit 00:00: for [place] [facility] glucose [facility] monitoring for ICD E11.9 TRUE METRIX 2022-0 Yes [id number] Use as [facility] GLUCOSE 8-29 directed ity of TEST STRIP 00:00: for once [place] day Medical glucose Branch monitoring for ICD E11.9 TRUE METRIX 2022-0 Yes [id number] Use as [facility] GLUCOSE 8-29 directed ity of METER Kit 00:00: for [place] [facility] glucose [facility] monitoring for ICD E11.9 TRUE METRIX 2022-0 Yes [id number] Use as [facility] GLUCOSE 8-29 directed ity of TEST STRIP 00:00: for once [place] day Medical glucose Branch monitoring for ICD E11.9 TRUE METRIX 2022-0 Yes [id number] Use as [facility] GLUCOSE 8-29 directed ity of METER Kit 00:00: for [place] [facility] glucose [facility] monitoring for ICD E11.9 TRUE METRIX 2022-0 Yes [id number] Use as [facility] GLUCOSE 8-29 directed ity of TEST STRIP 00:00: for once [place] day [facility] glucose Branch monitoring for ICD E11.9 TRUE METRIX 2022-0 Yes [id number] Use as [facility] GLUCOSE 8-29 directed ity of METER Kit 00:00: for [place] [facility] glucose [facility] monitoring for ICD E11.9 TRUE METRIX 2022-0 Yes [id number] Use as [facility] GLUCOSE 8-29 directed ity of TEST STRIP 00:00: for once [place] day Medical glucose Branch monitoring for ICD E11.9 TRUE METRIX 2022-0 Yes [id number] Use as [facility] GLUCOSE 8-29 directed ity of METER Kit 00:00: for [place] [facility] glucose [facility] monitoring for ICD E11.9 TRUE METRIX 2022-0 Yes [id number] Use as [facility] GLUCOSE 8-29 directed ity of TEST STRIP 00:00: for once [place] day Medical glucose Branch monitoring for ICD E11.9 TRUE METRIX 2022-0 Yes [id number] Use as [facility] GLUCOSE 8-29 directed ity of METER Kit 00:00: for [place] [facility] glucose [facility] monitoring for ICD E11.9 TRUE METRIX 2022-0 Yes [id number] Use as [facility] GLUCOSE 8-29 directed ity of TEST STRIP 00:00: for once a [place] day Medical glucose Branch monitoring for ICD E11.9 TRUE METRIX 2022-0 Yes [id number] Use as [facility] GLUCOSE 8-29 directed ity of METER Kit 00:00: for [place] [facility] glucose [facility] monitoring for ICD E11.9 TRUE METRIX 2022-0 Yes [id number] Use as [facility] GLUCOSE 8-29 directed ity of TEST STRIP 00:00: for once a [place] day Medical glucose Branch monitoring for ICD E11.9 TRUE METRIX 2022-0 Yes [id number] Use as [facility] GLUCOSE 8-29 directed ity of METER Kit 00:00: for [place] [facility] glucose [facility] monitoring for ICD E11.9 TRUE METRIX 2022-0 Yes [id number] Use as [facility] GLUCOSE 8-29 directed ity of TEST STRIP 00:00: for once [place] day Medical glucose Branch monitoring for ICD E11.9 TRUE METRIX 2022-0 Yes [id number] Use as [facility] GLUCOSE 8-29 directed ity of METER Kit 00:00: for [place] [facility] glucose [facility] monitoring for ICD E11.9 TRUE METRIX 2022-0 Yes [id number] Use as [facility] GLUCOSE 8-29 directed ity of TEST STRIP 00:00: for [place] day [facility] glucose Branch monitoring for ICD E11.9 TRUE METRIX 2022-0 Yes [id number] Use as [facility] GLUCOSE 8-29 directed ity of METER Kit 00:00: for [place] [facility] glucose [facility] monitoring for ICD E11.9 TRUE METRIX 2022-0 Yes [id number] Use as [facility] GLUCOSE 8-29 directed ity of TEST STRIP 00:00: for once a [place] day Medical glucose Branch monitoring for ICD E11.9 TRUE METRIX 2022-0 Yes [id number] Use as [facility] GLUCOSE 8-29 directed ity of METER Kit 00:00: for [place] [facility] glucose [facility] monitoring for ICD E11.9 TRUE METRIX 2022-0 Yes [id number] Use as [facility] GLUCOSE 8-29 directed ity of TEST STRIP 00:00: for once [place] day [facility] glucose Branch monitoring for ICD E11.9 TRUE METRIX 2022-0 Yes [id number] Use as [facility] GLUCOSE 8-29 directed ity of METER Kit 00:00: for [place] [facility] glucose [facility] monitoring for ICD E11.9 TRUE METRIX 2022-0 Yes [id number] Use as [facility] GLUCOSE 8-29 directed ity of TEST STRIP 00:00: for [place] day [facility] glucose Branch monitoring for ICD E11.9 TRUE METRIX 2022-0 Yes [id number] Use as [facility] GLUCOSE 8-29 directed ity of METER Kit 00:00: for [place] [facility] glucose [facility] monitoring for ICD E11.9 TRUE METRIX 2022-0 Yes [id number] Use as [facility] GLUCOSE 8-29 directed ity of TEST STRIP 00:00: for [place] day [facility] glucose Branch monitoring for ICD E11.9 TRUE METRIX 2022-0 Yes [id number] Use as [facility] GLUCOSE 8-29 directed ity of METER Kit 00:00: for [place] [facility] glucose [facility] monitoring for ICD E11.9 TRUE METRIX 2022-0 Yes [id number] Use as [facility] GLUCOSE 8-29 directed ity of TEST STRIP 00:00: for [place] day [facility] glucose Branch monitoring for ICD E11.9 TRUE METRIX 2022-0 Yes [id number] Use as [facility] GLUCOSE 8-29 directed ity of METER Kit 00:00: for [place] [facility] glucose [facility] monitoring for ICD E11.9 TRUE METRIX 2022-0 Yes [id number] Use as [facility] GLUCOSE 8-29 directed ity of TEST STRIP 00:00: for [place] day [facility] glucose Branch monitoring for ICD E11.9 TRUE METRIX 2022-0 Yes [id number] Use as [facility] GLUCOSE 8-29 directed ity of METER Kit 00:00: for [place] [facility] glucose [facility] monitoring for ICD E11.9 TRUE METRIX 2022-0 Yes [id number] Use as [facility] GLUCOSE 8-29 directed ity of TEST STRIP 00:00: for [place] day [facility] glucose Branch monitoring for ICD E11.9 TRUE METRIX 2022-0 Yes [id number] Use as [facility] GLUCOSE 8-29 directed ity of METER Kit 00:00: for [place] [facility] glucose [facility] monitoring for ICD E11.9 TRUE METRIX 2022-0 Yes [id number] Use as [facility] GLUCOSE 8-29 directed ity of TEST STRIP 00:00: for [place] day [facility] glucose Branch monitoring for ICD E11.9 TRUE METRIX 2022-0 Yes [id number] Use as [facility] GLUCOSE 8-29 directed ity of METER Kit 00:00: for [place] [facility] glucose [facility] monitoring for ICD E11.9 TRUE METRIX 2022-0 Yes [id number] Use as [facility] GLUCOSE 8-29 directed ity of TEST STRIP 00:00: for [place] day [facility] glucose Branch monitoring for ICD E11.9 TRUE METRIX 2022-0 Yes [id number] Use as [facility] GLUCOSE 8-29 directed ity of METER Kit 00:00: for [place] [facility] glucose [facility] monitoring for ICD E11.9 TRUE METRIX 2022-0 Yes [id number] Use as [facility] GLUCOSE 8-29 directed ity of TEST STRIP 00:00: for [place] day [facility] glucose Branch monitoring for ICD E11.9 TRUE METRIX 2022-0 Yes [id number] Use as [facility] GLUCOSE 8-29 directed ity of METER Kit 00:00: for [place] [facility] glucose [facility] monitoring for ICD E11.9 TRUE METRIX 2022-0 Yes [id number] Use as [facility] GLUCOSE 8-29 directed ity of TEST STRIP 00:00: for [place] day [facility] glucose Branch monitoring for ICD E11.9 TRUE METRIX 2022-0 Yes [id number] Use as [facility] GLUCOSE 8-29 directed ity of METER Kit 00:00: for [place] [facility] glucose [facility] monitoring for ICD E11.9 TRUE METRIX 2022-0 Yes [id number] Use as [facility] GLUCOSE 8-29 directed ity of TEST STRIP 00:00: for [place] day [facility] glucose Branch monitoring for ICD E11.9 TRUE METRIX 2022-0 Yes [id number] Use as [facility] GLUCOSE 8-29 directed ity of METER Kit 00:00: for [place] [facility] glucose [facility] monitoring for ICD E11.9 TRUE METRIX 2022-0 Yes [id number] Use as [facility] GLUCOSE 8-29 directed ity of TEST STRIP 00:00: for [place] day [facility] glucose Branch monitoring for ICD E11.9 TRUE METRIX 2022-0 Yes [id number] Use as [facility] GLUCOSE 8-29 directed ity of METER Kit 00:00: for [place] [facility] glucose [facility] monitoring for ICD E11.9 TRUE METRIX 2022-0 Yes [id number] Use as [facility] GLUCOSE 8-29 directed ity of TEST STRIP 00:00: for [place] day [facility] glucose Branch monitoring for ICD E11.9 TRUE METRIX 2022-0 Yes [id number] Use as [facility] GLUCOSE 8-29 directed ity of METER Kit 00:00: for [place] [facility] glucose [facility] monitoring for ICD E11.9 TRUE METRIX 2022-0 Yes [id number] Use as [facility] GLUCOSE 8-29 directed ity of TEST STRIP 00:00: for [place] [facility] glucose Branch monitoring for ICD E11.9 TRUE METRIX 2022-0 Yes [id number] Use as [facility] GLUCOSE 8-29 directed ity of METER Kit 00:00: [facility] [place] [facility] glucose [facility] monitoring for ICD E11.9 TRUE METRIX 2022-0 2023- No [id number] Use as [facility] GLUCOSE 8-29 04-03 directed ity of TEST STRIP 00:00: 00:00 for once a [place] strip 00 :00 day Medical glucose Branch monitoring for ICD E11.9 BRILINTA 90 2021-0 Yes [id number] TAKE 1 U nivers mg tablet 7-15 TABLET BY ity o f 00:00: MOUTH [place] 00 TWICE Medical DAILY Branch ALLERGY 2021-0 Yes [id number] TAKE 1 Univ ers RELIEF, 7-15 TABLET BY ity of LORATADINE, 00:00: MOUTH [place] 10 mg 00 DAILY Medical tablet Branch BRILINTA 90 2021-0 Yes [id number] TAKE 1 U nivers mg tablet 7-15 TABLET BY ity o f 00:00: MOUTH [place] 00 TWICE Medical DAILY Branch ALLERGY 2021-0 Yes [id number] TAKE 1 [facility] ers RELIEF, 7-15 TABLET BY ity of LORATADINE, 00:00: MOUTH [place] 10 mg 00 DAILY Medical tablet Branch BRILINTA 90 2021-0 Yes [id number] TAKE 1 [facility] nivers mg tablet 7-15 TABLET BY ity o f 00:00: MOUTH [place] 00 TWICE Medical DAILY Branch ALLERGY 2021-0 Yes [id number] TAKE 1 Univ ers RELIEF, 7-15 TABLET BY ity of LORATADINE, 00:00: MOUTH [place] 10 mg 00 DAILY Medical tablet Branch BRILINTA 90 2021-0 Yes [id number] TAKE 1 U nivers mg tablet 7-15 TABLET BY ity o f 00:00: MOUTH [place] 00 TWICE Medical DAILY Branch BRILINTA 90 2021-0 Yes [id number] TAKE 1 U nivers mg tablet 7-15 TABLET BY ity o f 00:00: MOUTH [place] 00 TWICE Medical DAILY Branch BRILINTA 90 2021-0 Yes [id number] TAKE 1 U nivers mg tablet 7-15 TABLET BY ity o f 00:00: MOUTH [place] 00 TWICE Medical DAILY Branch BRILINTA 90 2021-0 Yes [id number] TAKE 1 U nivers mg tablet 7-15 TABLET BY ity o f 00:00: MOUTH [place] 00 TWICE Medical DAILY Branch BRILINTA 90 2021-0 Yes [id number] TAKE 1 [facility] n[facility] mg tablet 7-15 TABLET BY ity o f 00:00: MOUTH [place] 00 TWICE Medical DAILY Branch BRILINTA 90 2021-0 Yes [id number] TAKE 1 [facility] mg tablet 7-15 TABLET BY ity o f 00:00: MOUTH [place] 00 TWICE Medical DAILY Branch BRILINTA 90 2021-0 Yes [id number] TAKE 1 [facility] mg tablet 7-15 TABLET BY ity o f 00:00: MOUTH [place] 00 TWICE Medical DAILY Branch BRILINTA 90 2-0 Yes [id number] TAKE 1 [facility] mg tablet 7-15 TABLET BY ity o f 00:00: MOUTH TWICE Medical DAILY Branch BRILINTA 90 2021-0 Yes [id number] TAKE 1 [facility] mg tablet 7-15 TABLET BY ity o f 00:00: MOUTH TWICE Medical DAILY Branch BRILINTA 90 2-0 Yes [id number] TAKE 1 [facility] mg tablet 7-15 TABLET BY ity o f 00:00: MOUTH TWICE Medical DAILY Branch BRILINTA 90 2-0 Yes [id number] TAKE 1 [facility] mg tablet 7-15 TABLET BY ity o f 00:00: MOUTH TWICE [facility] DAILY Branch BRILINTA 90 2021-0 Yes [id number] TAKE 1 [facility] mg tablet 7-15 TABLET BY ity o f 00:00: MOUTH TWICE [facility] DAILY Branch BRILIN[place] 90 2-0 Yes [id number] TAKE 1 [facility] mg tablet 7-15 TABLET BY ity o f 00:00: MOUTH TWICE [facility] DAILY Branch BRILIN[place] 90 2-0 Yes [id number] TAKE 1 [facility] mg tablet 7-15 TABLET BY ity o f 00:00: MOUTH TWICE [facility] DAILY Branch BRILINTA 90 2-0 Yes [id number] TAKE 1 [facility] mg tablet 7-15 TABLET BY ity o f 00:00: MOUTH TWICE [facility] DAILY Branch BRILIN[place] 90 2-0 Yes [id number] TAKE 1 [facility] mg tablet 7-15 TABLET BY ity o f 00:00: MOUTH TWICE [facility] DAILY Branch BR[place]IN[place] 90 2-0 Yes [id number] TAKE 1 [facility] mg tablet 7-15 TABLET BY ity o f 00:00: MOUTH TWICE [facility] DAILY Branch BRILIN[place] 90 2-0 Yes [id number] TAKE 1 U n[facility] mg tablet 7-15 TABLET BY ity o f 00:00: MOUTH TWICE [facility] DAILY Branch BRILIN[place] 90 2-0 Yes [id number] TAKE 1 [facility] mg tablet 7-15 TABLET BY ity o f 00:00: MOUTH TWICE [facility] DAILY Branch BRILIN[place] 90 2-0 Yes [id number] TAKE 1 [facility] mg tablet 7-15 TABLET BY ity o f 00:00: MOUTH TWICE [facility] DAILY Branch BRILINTA 90 2021-0 Yes [id number] TAKE 1 [facility] mg tablet 7-15 TABLET BY ity o f 00:00: MOUTH TWICE Medical DAILY Branch BRILIN[place] 90 2021-0 Yes [id number] TAKE 1 [facility] mg tablet 7-15 TABLET BY ity o f 00:00: MOUTH TWICE [facility] DAILY [facility] BRILIN[place] 90 2021-0 Yes [id number] TAKE 1 [facility] mg tablet 7-15 TABLET BY ity o f 00:00: MOUTH TWICE Medical DAILY Branch BRILIN[place] 90 2021-0 Yes [id number] TAKE 1 [facility] mg tablet 7-15 TABLET BY ity o f 00:00: MOUTH TWICE Medical DAILY Branch BRILIN[place] 90 2021-0 Yes [id number] TAKE 1 [facility] mg tablet 7-15 TABLET BY ity o f 00:00: MOUTH TWICE Medical DAILY Branch BRILINTA 90 2021-0 Yes [id number] TAKE 1 [facility] mg tablet 7-15 TABLET BY ity o f 00:00: MOUTH TWICE Medical DAILY Branch BRILIN[place] 90 2021-0 Yes [id number] TAKE 1 [facility] mg tablet 7-15 TABLET BY ity o f 00:00: MOUTH TWICE Medical DAILY Branch BRILIN[place] 90 2021-0 Yes [id number] TAKE 1 [facility] mg tablet 7-15 TABLET BY ity o f 00:00: MOUTH TWICE Medical DAILY Branch BRILIN[place] 90 2-0 Yes [id number] TAKE 1 [facility] mg tablet 7-15 TABLET BY ity o f 00:00: MOUTH TWICE Medical DAILY Branch BRILIN[place] 90 2-0 Yes [id number] TAKE 1 [facility] mg tablet 7-15 TABLET BY ity o f 00:00: MOUTH TWICE Medical DAILY Branch BR[place] 90 2-0 Yes [id number] TAKE 1 [facility] mg tablet 7-15 TABLET BY ity o f 00:00: MOUTH TWICE Medical DAILY Branch BRILIN[place] 90 2-0 Yes [id number] TAKE 1 [facility] mg tablet 7-15 TABLET BY ity o f 00:00: MOUTH TWICE Medical DAILY Branch BRILIN[place] 90 2021-0 Yes [id number] TAKE 1 [facility] mg tablet 7-15 TABLET BY ity o f 00:00: MOUTH [place] 00 TWICE Medical DAILY Branch BRILINTA 90 2021-0 Yes [id number] TAKE 1 [facility] nivers mg tablet 7-15 TABLET BY ity o f 00:00: MOUTH [place] 00 TWICE Medical DAILY Branch BRILINTA 90 2021-0 Yes [id number] TAKE 1 U nivers mg tablet 7-15 TABLET BY ity o f 00:00: MOUTH [place] 00 TWICE Medical DAILY Branch BRILINTA 90 2021-0 Yes [id number] TAKE 1 [facility] n[facility] mg tablet 7-15 TABLET BY ity o f 00:00: MOUTH [place] 00 TWICE Medical DAILY Branch BRILINTA 90 0 Yes [id number] TAKE 1 [facility] nivers mg tablet 7-15 TABLET BY ity o f 00:00: MOUTH [place] 00 TWICE Medical DAILY Branch BRILINTA 90 2021-0 Yes [id number] TAKE 1 [facility] nivers mg tablet 7-15 TABLET BY ity o f 00:00: MOUTH [place] 00 TWICE Medical DAILY Branch BRILINTA 90 2021-0 Yes [id number] TAKE 1 [facility] nivers mg tablet 7-15 TABLET BY ity o f 00:00: MOUTH [place] 00 TWICE Medical DAILY Branch BRILINTA 90 0 Yes [id number] TAKE 1 [facility] nivers mg tablet 7-15 TABLET BY ity o f 00:00: MOUTH [place] 00 TWICE Medical DAILY Branch BRILINTA 90 2021-0 2021- No [id number] TAKE 1 [facility] tablet 7-15 12-29 TABLET BY ity of 00:00: 00:00 MOUTH [place] 00 :00 TWICE Medical DAILY Branch ALLERGY 2021-0 2021- No [id number] TAKE 1 [facility] vers RELIEF, 7-15 09-15 TABLET BY ity of LORATADINE, 00:00: 00:[place] 10 mg 00 :00 DAILY Medical tablet Branch Insulin 0 Yes [id number] 42U inject 42 [facility] Glargine 7-14 Units ity of ([place] 00:00: under the [facility] 00 skin at Medical U-100 bedtime. Branch INSULIN) 100 unit/mL (3 mL) injection Insulin 0 Yes [id number] 42U inject 42 [facility] Glargine 7-14 Units ity of ([place] 00:00: under the [facility] 00 skin at Medical U-100 bedtime. Branch INSULIN) 100 unit/mL (3 mL) injection Insulin Yes [id number] 42U inject 42 [facility] Glargine 7-14 Units ity of ([place] 00:00: under the [place] [facility] 00 skin at Medical U-100 bedtime. Branch INSULIN) 100 unit/mL (3 mL) injection Insulin Yes [id number] 42U inject 42 [facility] Glargine 7-14 Units ity of ([place] 00:00: under the [place] [facility] 00 skin at Medical U-100 bedtime. Branch INSULIN) 100 unit/mL (3 mL) injection Insulin Yes [id number] 42U inject 42 [facility] Glargine 7-14 Units ity of ([place] 00:00: under the [place] [facility] 00 skin at Medical U-100 bedtime. Branch INSULIN) 100 unit/mL (3 mL) injection Insulin Yes [id number] 42U inject 42 [facility] Glargine 7-14 Units ity of ([place] 00:00: under the [place] [facility] 00 skin at Medical U-100 bedtime. Branch INSULIN) 100 unit/mL (3 mL) injection Insulin Yes [id number] 42U inject 42 [facility] Glargine 7-14 Units ity of ([place] 00:00: under the [place] [facility] 00 skin at Medical U-100 bedtime. Branch INSULIN) 100 unit/mL (3 mL) injection Insulin Yes [id number] 42U inject 42 [facility] Glargine 7-14 Units ity of ([place] 00:00: under the [place] [facility] 00 skin at Medical U-100 bedtime. Branch INSULIN) 100 unit/mL (3 mL) injection Insulin Yes [id number] 42U inject 42 [facility] Glargine 7-14 Units ity of ([place] 00:00: under the [place] [facility] 00 skin at Medical U-100 bedtime. Branch INSULIN) 100 unit/mL (3 mL) injection Insulin Yes [id number] 42U inject 42 [facility] Glargine 7-14 Units ity of ([place] 00:00: under the [place] [facility] 00 skin at Medical U-100 bedtime. Branch INSULIN) 100 unit/mL (3 mL) injection Insulin Yes [id number] 42U inject 42 [facility] Glargine 7-14 Units ity of ([place] 00:00: under the [place] [facility] 00 skin at Medical U-100 bedtime. Branch INSULIN) 100 unit/mL (3 mL) injection Insulin Yes [id number] 42U inject 42 [facility] Glargine 7-14 Units ity of ([place] 00:00: under the [place] [facility] 00 skin at Medical U-100 bedtime. Branch INSULIN) 100 unit/mL (3 mL) injection Insulin Yes [id number] 42U inject 42 [facility] Glargine 7-14 Units ity of ([place] 00:00: under the [place] [facility] 00 skin at Medical U-100 bedtime. Branch INSULIN) 100 unit/mL (3 mL) injection Insulin Yes [id number] 42U inject 42 [facility] Glargine 7-14 Units ity of ([place] 00:00: under the [place] [facility] 00 skin at Medical U-100 bedtime. Branch INSULIN) 100 unit/mL (3 mL) injection Insulin Yes [id number] 42U inject 42 [facility] Glargine 7-14 Units ity of ([place] 00:00: under the [place] [facility] 00 skin at Medical U-100 bedtime. Branch INSULIN) 100 unit/mL (3 mL) injection Insulin Yes [id number] 42U inject 42 [facility] Glargine 7-14 Units ity of ([place] 00:00: under the [place] [facility] 00 skin at Medical U-100 bedtime. Branch INSULIN) 100 unit/mL (3 mL) injection Insulin Yes [id number] 42U inject 42 [facility] Glargine 7-14 Units ity of ([place] 00:00: under the [place] [facility] 00 skin at Medical U-100 bedtime. Branch INSULIN) 100 unit/mL (3 mL) injection Insulin Yes [id number] 42U inject 42 [facility] Glargine 7-14 Units ity of ([place] 00:00: under the [place] [facility] 00 skin at Medical U-100 bedtime. Branch INSULIN) 100 unit/mL (3 mL) injection Insulin Yes [id number] 42U inject 42 [facility] Glargine 7-14 Units ity of ([place] 00:00: under the [place] [facility] 00 skin at Medical U-100 bedtime. Branch INSULIN) 100 unit/mL (3 mL) injection Insulin Yes [id number] 42U inject 42 [facility] Glargine 7-14 Units ity of ([place] 00:00: under the [place] [facility] 00 skin at Medical U-100 bedtime. Branch INSULIN) 100 unit/mL (3 mL) injection Insulin Yes [id number] 42U inject 42 [facility] Glargine 7-14 Units ity of ([place] 00:00: under the [place] [facility] 00 skin at Medical U-100 bedtime. Branch INSULIN) 100 unit/mL (3 mL) injection Insulin Yes [id number] 42U inject 42 [facility] Glargine 7-14 Units ity of ([place] 00:00: under the [place] [facility] 00 skin at Medical U-100 bedtime. Branch INSULIN) 100 unit/mL (3 mL) injection Insulin Yes [id number] 42U inject 42 [facility] Glargine 7-14 Units ity of ([place] 00:00: under the [place] [facility] 00 skin at Medical U-100 bedtime. Branch INSULIN) 100 unit/mL (3 mL) injection Insulin Yes [id number] 42U inject 42 [facility] Glargine 7-14 Units ity of ([place] 00:00: under the [place] [facility] 00 skin at Medical U-100 bedtime. Branch INSULIN) 100 unit/mL (3 mL) injection Insulin Yes [id number] 42U inject 42 [facility] Glargine 7-14 Units ity of ([place] 00:00: under the [place] [facility] 00 skin at Medical U-100 bedtime. Branch INSULIN) 100 unit/mL (3 mL) injection Insulin Yes [id number] 42U inject 42 [facility] Glargine 7-14 Units ity of ([place] 00:00: under the [place] [facility] 00 skin at Medical U-100 bedtime. Branch INSULIN) 100 unit/mL (3 mL) injection Insulin Yes [id number] 42U inject 42 [facility] Glargine 7-14 Units ity of ([place] 00:00: under the [place] [facility] 00 skin at Medical U-100 bedtime. Branch INSULIN) 100 unit/mL (3 mL) injection Insulin Yes [id number] 42U inject 42 [facility] Glargine 7-14 Units ity of ([place] 00:00: under the [place] [facility] 00 skin at Medical U-100 bedtime. Branch INSULIN) 100 unit/mL (3 mL) injection Insulin Yes [id number] 42U inject 42 [facility] Glargine 7-14 Units ity of ([place] 00:00: under the [place] [facility] 00 skin at Medical U-100 bedtime. Branch INSULIN) 100 unit/mL (3 mL) injection Insulin Yes [id number] 42U inject 42 [facility] Glargine 7-14 Units ity of ([place] 00:00: under the [place] [facility] 00 skin at Medical U-100 bedtime. Branch INSULIN) 100 unit/mL (3 mL) injection Insulin Yes [id number] 42U inject 42 [facility] Glargine 7-14 Units ity of ([place] 00:00: under the [place] [facility] 00 skin at Medical U-100 bedtime. Branch INSULIN) 100 unit/mL (3 mL) injection Insulin Yes [id number] 42U inject 42 [facility] Glargine 7-14 Units ity of ([place] 00:00: under the [place] [facility] 00 skin at Medical U-100 bedtime. Branch INSULIN) 100 unit/mL (3 mL) injection Insulin Yes [id number] 42U inject 42 [facility] Glargine 7-14 Units ity of ([place] 00:00: under the [place] [facility] 00 skin at Medical U-100 bedtime. Branch INSULIN) 100 unit/mL (3 mL) injection Insulin Yes [id number] 42U inject 42 [facility] Glargine 7-14 Units ity of ([place] 00:00: under the [place] [facility] 00 skin at Medical U-100 bedtime. Branch INSULIN) 100 unit/mL (3 mL) injection Insulin Yes [id number] 42U inject 42 [facility] Glargine 7-14 Units ity of ([place] 00:00: under the [place] [facility] 00 skin at Medical U-100 bedtime. Branch INSULIN) 100 unit/mL (3 mL) injection Insulin Yes [id number] 42U inject 42 [facility] Glargine 7-14 Units ity of ([place] 00:00: under the [place] [facility] 00 skin at Medical U-100 bedtime. Branch INSULIN) 100 unit/mL (3 mL) injection Insulin Yes [id number] 42U inject 42 [facility] Glargine 7-14 Units ity of ([place] 00:00: under the [place] [facility] 00 skin at Medical U-100 bedtime. Branch INSULIN) 100 unit/mL (3 mL) injection Insulin Yes [id number] 42U inject 42 [facility] Glargine 7-14 Units ity of ([place] 00:00: under the [place] [facility] 00 skin at Medical U-100 bedtime. Branch INSULIN) 100 unit/mL (3 mL) injection Insulin Yes [id number] 42U inject 42 [facility] Glargine 7-14 Units ity of ([place] 00:00: under the [place] [facility] 00 skin at Medical U-100 bedtime. Branch INSULIN) 100 unit/mL (3 mL) injection Insulin Yes [id number] 42U inject 42 [facility] Glargine 7-14 Units ity of ([place] 00:00: under the [place] [facility] 00 skin at Medical U-100 bedtime. Branch INSULIN) 100 unit/mL (3 mL) injection Insulin Yes [id number] 42U inject 42 [facility] Glargine 7-14 Units ity of ([place] 00:00: under the [place] [facility] 00 skin at Medical U-100 bedtime. Branch INSULIN) 100 unit/mL (3 mL) injection Insulin Yes [id number] 42U inject 42 [facility] Glargine 7-14 Units ity of ([place] 00:00: under the [place] [facility] 00 skin at Medical U-100 bedtime. Branch INSULIN) 100 unit/mL (3 mL) injection Insulin Yes [id number] 42U inject 42 [facility] Glargine 7-14 Units ity of ([place] 00:00: under the [place] [facility] 00 skin at Medical U-100 bedtime. Branch INSULIN) 100 unit/mL (3 mL) injection Insulin Yes [id number] 42U inject 42 [facility] Glargine 7-14 Units ity of ([place] 00:00: under the [place] [facility] 00 skin at Medical U-100 bedtime. Branch INSULIN) 100 unit/mL (3 mL) injection Insulin Yes [id number] 42U inject 42 [facility] Glargine 7-14 Units ity of ([place] 00:00: under the [place] [facility] 00 skin at Medical U-100 bedtime. Branch INSULIN) 100 unit/mL (3 mL) injection Insulin Yes [id number] 42U inject 42 [facility] Glargine 7-14 Units ity of ([place] 00:00: under the [place] [facility] 00 skin at Medical U-100 bedtime. Branch INSULIN) 100 unit/mL (3 mL) injection Insulin Yes [id number] 42U inject 42 [facility] Glargine 7-14 Units ity of ([place] 00:00: under the [place] [facility] 00 skin at Medical U-100 bedtime. Branch INSULIN) 100 unit/mL (3 mL) injection Insulin Yes [id number] 42U inject 42 [facility] Glargine 7-14 Units ity of ([place] 00:00: under the [place] [facility] 00 skin at Medical U-100 bedtime. Branch INSULIN) 100 unit/mL (3 mL) injection Insulin Yes [id number] 42U inject 42 [facility] Glargine 7-14 Units ity of ([place] 00:00: under the [place] [facility] 00 skin at Medical U-100 bedtime. Branch INSULIN) 100 unit/mL (3 mL) injection Insulin Yes [id number] 42U inject 42 [facility] Glargine 7-14 Units ity of ([place] 00:00: under the [place] [facility] 00 skin at Medical U-100 bedtime. Branch INSULIN) 100 unit/mL (3 mL) injection Insulin Yes [id number] 42U inject 42 [facility] Glargine 7-14 Units ity of ([place] 00:00: under the [place] [facility] 00 skin at Medical U-100 bedtime. Branch INSULIN) 100 unit/mL (3 mL) injection Insulin Yes [id number] 42U inject 42 [facility] Glargine 7-14 Units ity of ([place] 00:00: under the [place] [facility] 00 skin at Medical U-100 bedtime. Branch INSULIN) 100 unit/mL (3 mL) injection Insulin Yes [id number] 42U inject 42 [facility] Glargine 7-14 Units ity of ([place] 00:00: under the [place] [facility] 00 skin at Medical U-100 bedtime. Branch INSULIN) 100 unit/mL (3 mL) injection Insulin Yes [id number] 42U inject 42 [facility] Glargine 7-14 Units ity of ([place] 00:00: under the [place] [facility] 00 skin at Medical U-100 bedtime. Branch INSULIN) 100 unit/mL (3 mL) injection Insulin Yes [id number] 42U inject 42 [facility] Glargine 7-14 Units ity of ([place] 00:00: under the [place] [facility] 00 skin at Medical U-100 bedtime. Branch INSULIN) 100 unit/mL (3 mL) injection Insulin Yes [id number] 42U inject 42 [facility] Glargine 7-14 Units ity of ([place] 00:00: under the [place] [facility] 00 skin at Medical U-100 bedtime. Branch INSULIN) 100 unit/mL (3 mL) injection Insulin Yes [id number] 42U inject 42 [facility] Glargine 7-14 Units ity of ([place] 00:00: under the [place] [facility] 00 skin at Medical U-100 bedtime. Branch INSULIN) 100 unit/mL (3 mL) injection Insulin Yes [id number] 42U inject 42 [facility] Glargine 7-14 Units ity of ([place] 00:00: under the [place] [facility] 00 skin at Medical U-100 bedtime. Branch INSULIN) 100 unit/mL (3 mL) injection Insulin Yes [id number] 42U inject 42 [facility] Glargine 7-14 Units ity of ([place] 00:00: under the [place] [facility] 00 skin at Medical U-100 bedtime. Branch INSULIN) 100 unit/mL (3 mL) injection Insulin Yes [id number] 42U inject 42 [facility] Glargine 7-14 Units ity of ([place] 00:00: under the [place] [facility] 00 skin at Medical U-100 bedtime. Branch INSULIN) 100 unit/mL (3 mL) injection Insulin Yes [id number] 42U inject 42 [facility] Glargine 7-14 Units ity of ([place] 00:00: under the [place] [facility] 00 skin at Medical U-100 bedtime. Branch INSULIN) 100 unit/mL (3 mL) injection Insulin Yes [id number] 42U inject 42 [facility] Glargine 7-14 Units ity of ([place] 00:00: under the [place] [facility] 00 skin at Medical U-100 bedtime. Branch INSULIN) 100 unit/mL (3 mL) injection Insulin Yes [id number] 42U inject 42 [facility] Glargine 7-14 Units ity of ([place] 00:00: under the [place] [facility] 00 skin at Medical U-100 bedtime. Branch INSULIN) 100 unit/mL (3 mL) injection Insulin Yes [id number] 42U inject 42 [facility] Glargine 7-14 Units ity of ([place] 00:00: under the [place] [facility] 00 skin at Medical U-100 bedtime. Branch INSULIN) 100 unit/mL (3 mL) injection Insulin Yes [id number] 42U inject 42 [facility] Glargine 7-14 Units ity of ([place] 00:00: under the [place] [facility] 00 skin at Medical U-100 bedtime. Branch INSULIN) 100 unit/mL (3 mL) injection Insulin Yes [id number] 42U inject 42 [facility] Glargine 7-14 Units ity of ([place] 00:00: under the [place] [facility] 00 skin at Medical U-100 bedtime. Branch INSULIN) 100 unit/mL (3 mL) injection Insulin Yes [id number] 42U inject 42 [facility] Glargine 7-14 Units ity of ([place] 00:00: under the [place] [facility] 00 skin at Medical U-100 bedtime. Branch INSULIN) 100 unit/mL (3 mL) injection Insulin Yes [id number] 42U inject 42 [facility] Glargine 7-14 Units ity of ([place] 00:00: under the [place] [facility] 00 skin at Medical U-100 bedtime. Branch INSULIN) 100 unit/mL (3 mL) injection Insulin Yes [id number] 42U inject 42 [facility] Glargine 7-14 Units ity of ([place] 00:00: under the [place] [facility] 00 skin at Medical U-100 bedtime. Branch INSULIN) 100 unit/mL (3 mL) injection Insulin Yes [id number] 42U inject 42 [facility] Glargine 7-14 Units ity of ([place] 00:00: under the [place] [facility] 00 skin at Medical U-100 bedtime. Branch INSULIN) 100 unit/mL (3 mL) injection Insulin Yes [id number] 42U inject 42 [facility] Glargine 7-14 Units ity of ([place] 00:00: under the [place] [facility] 00 skin at Medical U-100 bedtime. Branch INSULIN) 100 unit/mL (3 mL) injection Insulin Yes [id number] 42U inject 42 [facility] Glargine 7-14 Units ity of ([place] 00:00: under the [place] [facility] 00 skin at Medical U-100 bedtime. Branch INSULIN) 100 unit/mL (3 mL) injection Insulin Yes [id number] 42U inject 42 [facility] Glargine 7-14 Units ity of ([place] 00:00: under the [place] [facility] 00 skin at Medical U-100 bedtime. Branch INSULIN) 100 unit/mL (3 mL) injection Insulin Yes [id number] 42U inject 42 [facility] Glargine 7-14 Units ity of ([place] 00:00: under the [place] [facility] 00 skin at Medical U-100 bedtime. Branch INSULIN) 100 unit/mL (3 mL) injection Insulin Yes [id number] 42U inject 42 [facility] Glargine 7-14 Units ity of ([place] 00:00: under the [place] [facility] 00 skin at Medical U-100 bedtime. Branch INSULIN) 100 unit/mL (3 mL) injection Insulin Yes [id number] 42U inject 42 [facility] Glargine 7-14 Units ity of ([place] 00:00: under the [place] [facility] 00 skin at Medical U-100 bedtime. Branch INSULIN) 100 unit/mL (3 mL) injection Insulin Yes [id number] 42U inject 42 [facility] Glargine 7-14 Units ity of ([place] 00:00: under the [place] [facility] 00 skin at Medical U-100 bedtime. Branch INSULIN) 100 unit/mL (3 mL) injection Insulin Yes [id number] 42U inject 42 [facility] Glargine 7-14 Units ity of ([place] 00:00: under the [place] [facility] 00 skin at Medical U-100 bedtime. Branch INSULIN) 100 unit/mL (3 mL) injection Insulin Yes [id number] 42U inject 42 [facility] Glargine 7-14 Units ity of ([place] 00:00: under the [place] [facility] 00 skin at Medical U-100 bedtime. Branch INSULIN) 100 unit/mL (3 mL) injection Insulin Yes [id number] 42U inject 42 [facility] Glargine 7-14 Units ity of ([place] 00:00: under the [place] [facility] 00 skin at Medical U-100 bedtime. Branch INSULIN) 100 unit/mL (3 mL) injection Insulin Yes [id number] 42U inject 42 [facility] Glargine 7-14 Units ity of ([place] 00:00: under the [place] [facility] 00 skin at Medical U-100 bedtime. Branch INSULIN) 100 unit/mL (3 mL) injection Insulin Yes [id number] 42U inject 42 [facility] Glargine 7-14 Units ity of ([place] 00:00: under the [place] [facility] 00 skin at Medical U-100 bedtime. Branch INSULIN) 100 unit/mL (3 mL) injection Insulin Yes [id number] 42U inject 42 [facility] Glargine 7-14 Units ity of ([place] 00:00: under the [place] [facility] 00 skin at Medical U-100 bedtime. Branch INSULIN) 100 unit/mL (3 mL) injection Insulin Yes [id number] 42U inject 42 [facility] Glargine 7-14 Units ity of ([place] 00:00: under the [place] [facility] 00 skin at Medical U-100 bedtime. Branch INSULIN) 100 unit/mL (3 mL) injection Insulin Yes [id number] 42U inject 42 [facility] Glargine 7-14 Units ity of ([place] 00:00: under the [place] [facility] 00 skin at Medical U-100 bedtime. Branch INSULIN) 100 unit/mL (3 mL) injection Insulin Yes [id number] 42U inject 42 [facility] Glargine 7-14 Units ity of ([place] 00:00: under the [place] [facility] 00 skin at Medical U-100 bedtime. Branch INSULIN) 100 unit/mL (3 mL) injection Insulin Yes [id number] 42U inject 42 [facility] Glargine 7-14 Units ity of ([place] 00:00: under the [place] [facility] 00 skin at Medical U-100 bedtime. Branch INSULIN) 100 unit/mL (3 mL) injection Insulin Yes [id number] 42U inject 42 [facility] Glargine 7-14 Units ity of ([place] 00:00: under the [place] [facility] 00 skin at Medical U-100 bedtime. Branch INSULIN) 100 unit/mL (3 mL) injection Insulin Yes [id number] 42U inject 42 [facility] Glargine 7-14 Units ity of ([place] 00:00: under the [place] [facility] 00 skin at Medical U-100 bedtime. Branch INSULIN) 100 unit/mL (3 mL) injection Insulin Yes [id number] 42U inject 42 [facility] Glargine 7-14 Units ity of ([place] 00:00: under the [place] [facility] 00 skin at Medical U-100 bedtime. Branch INSULIN) 100 unit/mL (3 mL) injection Insulin Yes [id number] 42U inject 42 [facility] Glargine 7-14 Units ity of ([place] 00:00: under the [place] [facility] 00 skin at Medical U-100 bedtime. Branch INSULIN) 100 unit/mL (3 mL) injection Insulin Yes [id number] 42U inject 42 [facility] Glargine 7-14 Units ity of ([place] 00:00: under the [place] [facility] 00 skin at Medical U-100 bedtime. Branch INSULIN) 100 unit/mL (3 mL) injection Insulin Yes [id number] 42U inject 42 [facility] Glargine 7-14 Units ity of ([place] 00:00: under the [place] [facility] 00 skin at Medical U-100 bedtime. Branch INSULIN) 100 unit/mL (3 mL) injection Insulin Yes [id number] 42U inject 42 [facility] Glargine 7-14 Units ity of ([place] 00:00: under the [place] [facility] 00 skin at Medical U-100 bedtime. Branch INSULIN) 100 unit/mL (3 mL) injection Insulin Yes [id number] 42U inject 42 [facility] Glargine 7-14 Units ity of ([place] 00:00: under the [place] [facility] 00 skin at Medical U-100 bedtime. Branch INSULIN) 100 unit/mL (3 mL) injection Insulin Yes [id number] 42U inject 42 [facility] Glargine 7-14 Units ity of ([place] 00:00: under the [place] [facility] 00 skin at Medical U-100 bedtime. Branch INSULIN) 100 unit/mL (3 mL) injection Insulin Yes [id number] 42U inject 42 [facility] Glargine 7-14 Units ity of ([place] 00:00: under the [place] [facility] 00 skin at Medical U-100 bedtime. Branch INSULIN) 100 unit/mL (3 mL) injection Insulin Yes [id number] 42U inject 42 [facility] Glargine 7-14 Units ity of ([place] 00:00: under the [place] [facility] 00 skin at Medical U-100 bedtime. Branch INSULIN) 100 unit/mL (3 mL) injection Insulin Yes [id number] 42U inject 42 [facility] Glargine 7-14 Units ity of ([place] 00:00: under the [place] [facility] 00 skin at Medical U-100 bedtime. Branch INSULIN) 100 unit/mL (3 mL) injection Insulin Yes [id number] 42U inject 42 [facility] Gl[facility]ine 7-14 Units ity of ([place] 00:00: under the [place] [facility] 00 skin at Medical U-100 bedtime. Branch INSULIN) 100 unit/mL (3 mL) injection Insulin Yes [id number] 42U inject 42 [facility] 7-14 Units ity of ([facility] 00:00: under the [place] [facility] 00 skin at Medical U-100 bedtime. Branch INSULIN) 100 unit/mL (3 mL) injection Insulin Yes [id number] 42U inject 42 [facility] Gl[facility] 7-14 Units ity of ([facility] 00:00: under the [place] [facility] 00 skin at [facility]100 bedtime. Branch INSULIN) 100 unit/mL (3 mL) injection Insulin Yes [id number] 42U inject 42 [facility] Glargine 7-14 Units ity of ([facility] 00:00: under the [place] [facility] 00 skin at [facility]-100 bedtime. Branch INSULIN) 100 unit/mL (3 mL) injection Insulin Yes [id number] 42U inject 42 [facility] Glargine 7-14 Units ity of ([facility] 00:00: under the [place] [facility] 00 skin at [facility]-100 bedtime. Branch INSULIN) 100 unit/mL (3 mL) injection Insulin Yes [id number] 42U inject 42 [facility] Glargine 7-14 Units ity of ([facility] 00:00: under the [place] [facility] 00 skin at [facility]-100 bedtime. Branch INSULIN) 100 unit/mL (3 mL) injection Insulin Yes [id number] 42U inject 42 [facility] Glargine 7-14 Units ity of ([facility] 00:00: under the [place] [facility] 00 skin at [facility]-100 bedtime. Branch INSULIN) 100 unit/mL (3 mL) injection Insulin Yes [id number] 42U inject 42 [facility] Glargine 7-14 Units ity of ([facility] 00:00: under the [place] [facility] 00 skin at [facility]-100 bedtime. Branch INSULIN) 100 unit/mL (3 mL) injection Insulin Yes [id number] 42U inject 42 [facility] Glargine 7-14 Units ity of ([facility] 00:00: under the [place] [facility] 00 skin at [facility]-100 bedtime. Branch INSULIN) 100 unit/mL (3 mL) injection Insulin Yes [id number] 42U inject 42 [facility] Glargine 7-14 Units ity of ([facility] 00:00: under the [place] [facility] 00 skin at [facility]-100 bedtime. Branch INSULIN) 100 unit/mL (3 mL) injection Insulin Yes [id number] 42U inject 42 [facility] Glargine 7-14 Units ity of ([facility] 00:00: under the [place] [facility] 00 skin at [facility]-100 bedtime. Branch INSULIN) 100 unit/mL (3 mL) injection Insulin Yes [id number] 42U inject 42 [facility] Glargine 7-14 Units ity of ([facility] 00:00: under the [place] [facility] 00 skin at [facility]-100 bedtime. Branch INSULIN) 100 unit/mL (3 mL) injection Insulin Yes [id number] 42U inject 42 [facility] Glargine 7-14 Units ity of ([facility] 00:00: under the [place] [facility] 00 skin at [facility]-100 bedtime. Branch INSULIN) 100 unit/mL (3 mL) injection Insulin Yes [id number] 42U inject 42 [facility] Glargine 7-14 Units ity of ([facility] 00:00: under the [place] [facility] 00 skin at [facility]-100 bedtime. Branch INSULIN) 100 unit/mL (3 mL) injection Insulin Yes [id number] 42U inject 42 [facility] Glargine 7-14 Units ity of ([facility] 00:00: under the [place] [facility] 00 skin at [facility]-100 bedtime. Branch INSULIN) 100 unit/mL (3 mL) injection Insulin Yes [id number] 42U inject 42 [facility] Glargine 7-14 Units ity of ([facility] 00:00: under the [place] [facility] 00 skin at [facility]-100 bedtime. Branch INSULIN) 100 unit/mL (3 mL) injection Insulin Yes [id number] 42U inject 42 [facility] Glargine 7-14 Units ity of ([facility] 00:00: under the [place] [facility] 00 skin at [facility]-100 bedtime. Branch INSULIN) 100 unit/mL (3 mL) injection Insulin Yes [id number] 42U inject 42 [facility] Gl[facility]ine 7-14 Units ity of ([facility] 00:00: under the [place] [facility] 00 skin at [facility]-100 bedtime. Branch INSULIN) 100 unit/mL (3 mL) injection Insulin Yes [id number] 42U inject 42 [facility] Gl[facility]ine 7-14 Units ity of ([facility] 00:00: under the [place] [facility] 00 skin at [facility]-100 bedtime. Branch INSULIN) 100 unit/mL (3 mL) injection Insulin Yes [id number] 42U inject 42 [facility] Gl[facility]ine 7-14 Units ity of ([facility] 00:00: under the [place] [facility] 00 skin at [facility]-100 bedtime. Branch INSULIN) 100 unit/mL (3 mL) injection Insulin Yes [id number] 42U inject 42 [facility] Gl[facility]ine 7-14 Units ity of ([facility] 00:00: under the [place] [facility] 00 skin at [facility]-100 bedtime. Branch INSULIN) 100 unit/mL (3 mL) injection Insulin Yes [id number] 42U inject 42 [facility] Gl[facility]ine 7-14 Units ity of ([facility] 00:00: under the [place] [facility] 00 skin at [facility]-100 bedtime. Branch INSULIN) 100 unit/mL (3 mL) injection Insulin Yes [id number] 42U inject 42 [facility] Gl[facility]ine 7-14 Units ity of ([facility] 00:00: under the [place] [facility] 00 skin at [facility]-100 bedtime. Branch INSULIN) 100 unit/mL (3 mL) injection Insulin Yes [id number] 42U inject 42 [facility] Glargine 7-14 Units ity of ([facility] 00:00: under the [place] [facility] 00 skin at [facility]-100 bedtime. Branch INSULIN) 100 unit/mL (3 mL) injection Insulin Yes [id number] 42U inject 42 [facility] Gl[facility]ine 7-14 Units ity of ([facility] 00:00: under the [place] [facility] 00 skin at [facility]-100 bedtime. Branch INSULIN) 100 unit/mL (3 mL) injection Insulin Yes [id number] 42U inject 42 [facility] Gl[facility]ine 7-14 Units ity of ([facility] 00:00: under the [place] [facility] 00 skin at [facility]-100 bedtime. Branch INSULIN) 100 unit/mL (3 mL) injection Insulin Yes [id number] 42U inject 42 [facility] Gl[facility]ine 7-14 Units ity of ([facility] 00:00: under the [place] [facility] 00 skin at [facility]-100 bedtime. Branch INSULIN) 100 unit/mL (3 mL) injection Insulin Yes [id number] 42U inject 42 [facility] Gl[facility]ine 7-14 Units ity of ([facility] 00:00: under the [place] [facility] 00 skin at [facility]-100 bedtime. Branch INSULIN) 100 unit/mL (3 mL) injection Insulin Yes [id number] 42U inject 42 [facility] Glargine 7-14 Units ity of ([facility] 00:00: under the [place] [facility] 00 skin at [facility]-100 bedtime. Branch INSULIN) 100 unit/mL (3 mL) injection Insulin Yes [id number] 42U inject 42 [facility] Gl[facility]ine 7-14 Units ity of ([facility] 00:00: under the [place] [facility] 00 skin at [facility]-100 bedtime. Branch INSULIN) 100 unit/mL (3 mL) injection Insulin Yes [id number] 42U inject 42 [facility] Glargine 7-14 Units ity of ([facility] 00:00: under the [place] [facility] 00 skin at [facility]-100 bedtime. Branch INSULIN) 100 unit/mL (3 mL) injection Insulin Yes [id number] 42U inject 42 [facility] Gl[facility]ine 7-14 Units ity of ([facility] 00:00: under the [place] [facility] 00 skin at [facility]-100 bedtime. Branch INSULIN) 100 unit/mL (3 mL) injection Insulin Yes [id number] 42U inject 42 [facility] Gl[facility]ine 7-14 Units ity of ([facility] 00:00: under the [place] [facility] 00 skin at [facility]-100 bedtime. Branch INSULIN) 100 unit/mL (3 mL) injection Insulin Yes [id number] 42U inject 42 [facility] Gl[facility]ine 7-14 Units ity of ([facility] 00:00: under the [place] [facility] 00 skin at [facility]-100 bedtime. Branch INSULIN) 100 unit/mL (3 mL) injection Insulin Yes [id number] 42U inject 42 [facility] Gl[facility] 7-14 Units ity of ([facility] 00:00: under the [place] [facility] 00 skin at [facility]-100 bedtime. Branch INSULIN) 100 unit/mL (3 mL) injection Insulin Yes [id number] 42U inject 42 [facility] Gl[facility]ine 7-14 Units ity of ([facility] 00:00: under the [place] [facility] 00 skin at [facility]-100 bedtime. Branch INSULIN) 100 unit/mL (3 mL) injection Insulin Yes [id number] 42U inject 42 [facility] Gl[facility]ine 7-14 Units ity of ([facility] 00:00: under the [place] [facility] 00 skin at [facility]-100 bedtime. Branch INSULIN) 100 unit/mL (3 mL) injection Insulin Yes [id number] 42U inject 42 [facility] Gl[facility]ine 7-14 Units ity of ([facility] 00:00: under the [place] [facility] 00 skin at [facility]-100 bedtime. Branch INSULIN) 100 unit/mL (3 mL) injection Insulin Yes [id number] 42U inject 42 [facility] Gl[facility]ine 7-14 Units ity of ([facility] 00:00: under the [place] [facility] 00 skin at [facility]-100 bedtime. Branch INSULIN) 100 unit/mL (3 mL) injection Insulin Yes [id number] 42U inject 42 [facility] Gl[facility]ine 7-14 Units ity of ([facility] 00:00: under the [place] [facility] 00 skin at [facility]-100 bedtime. Branch INSULIN) 100 unit/mL (3 mL) injection Insulin Yes [id number] 42U inject 42 [facility] Gl[facility]ine 7-14 Units ity of ([facility] 00:00: under the [place] [facility] 00 skin at [facility]-100 bedtime. Branch INSULIN) 100 unit/mL (3 mL) injection Insulin Yes [id number] 42U inject 42 [facility] Gl[facility]ine 7-14 Units ity of ([facility] 00:00: under the [place] [facility] 00 skin at [facility]-100 bedtime. Branch INSULIN) 100 unit/mL (3 mL) injection Insulin Yes [id number] 42U inject 42 [facility] Gl[facility]ine 7-14 Units ity of ([facility] 00:00: under the [place] [facility] 00 skin at [facility]-100 bedtime. Branch INSULIN) 100 unit/mL (3 mL) injection Insulin Yes [id number] 42U inject 42 [facility] 7-14 Units ity of ([facility] 00:00: under the [place] [facility] 00 skin at [facility]-100 bedtime. Branch INSULIN) 100 unit/mL (3 mL) injection Insulin Yes [id number] 42U inject 42 [facility] Gl[facility]ine 7-14 Units ity of ([facility] 00:00: under the [place] [facility] 00 skin at [facility]-100 bedtime. Branch INSULIN) 100 unit/mL (3 mL) injection Insulin Yes [id number] 42U inject 42 [facility] 7-14 Units ity of ([facility] 00:00: under the [place] [facility] 00 skin at [facility]-100 bedtime. Branch INSULIN) 100 unit/mL (3 mL) injection Insulin Yes [id number] 42U inject 42 [facility] Gl[facility]ine 7-14 Units ity of ([facility] 00:00: under the [place] [facility] 00 skin at [facility]-100 bedtime. Branch INSULIN) 100 unit/mL (3 mL) injection Insulin Yes [id number] 42U inject 42 [facility] 7-14 Units ity of ([facility] 00:00: under the [place] [facility] 00 skin at [facility]-100 bedtime. Branch INSULIN) 100 unit/mL (3 mL) injection Insulin Yes [id number] 42U inject 42 [facility] 7-14 Units ity of ([facility] 00:00: under the [place] [facility] 00 skin at [facility]-100 bedtime. Branch INSULIN) 100 unit/mL (3 mL) injection Insulin Yes [id number] 42U inject 42 [facility] 7-14 Units ity of ([facility] 00:00: under the [place] [facility] 00 skin at [facility]-100 bedtime. Branch INSULIN) 100 unit/mL (3 mL) injection Insulin Yes [id number] 42U inject 42 [facility] Gl[facility]ine 7-14 Units ity of ([facility] 00:00: under the [place] [facility] 00 skin at [facility]-100 bedtime. Branch INSULIN) 100 unit/mL (3 mL) injection Insulin Yes [id number] 42U inject 42 [facility] 7-14 Units ity of ([facility] 00:00: under the [place] [facility] 00 skin at [facility]-100 bedtime. Branch INSULIN) 100 unit/mL (3 mL) injection Insulin Yes [id number] 42U inject 42 [facility] 7-14 Units ity of ([facility] 00:00: under the [place] [facility] 00 skin at [facility]-100 bedtime. Branch INSULIN) 100 unit/mL (3 mL) injection Insulin Yes [id number] 42U inject 42 [facility] 7-14 Units ity of ([facility] 00:00: under the [place] [facility] 00 skin at [facility]-100 bedtime. Branch INSULIN) 100 unit/mL (3 mL) injection Insulin Yes [id number] 42U inject 42 [facility]ine 7-14 Units ity of ([facility] 00:00: under the [place] [facility] 00 skin at [facility]-100 bedtime. Branch INSULIN) 100 unit/mL (3 mL) injection Insulin Yes [id number] 42U inject 42 [facility] Gl[facility]ine 7-14 Units ity of ([facility] 00:00: under the [place] [facility] 00 skin at [facility] U-100 bedtime. Branch INSULIN) 100 unit/mL (3 mL) injection Insulin Yes [id number] 42U inject 42 [facility] Gl[facility]ine 7-14 Units ity of ([facility] 00:00: under the [place] [facility] 00 skin at [facility] U-100 bedtime. Branch INSULIN) 100 unit/mL (3 mL) injection Insulin Yes [id number] 42U inject 42 [facility] Gl[facility]ine 7-14 Units ity of ([facility] 00:00: under the [place] [facility] 00 skin at [facility] U-100 bedtime. Branch INSULIN) 100 unit/mL (3 mL) injection Insulin Yes [id number] 42U inject 42 [facility] Gl[facility]ine 7-14 Units ity of ([facility] 00:00: under the [place] [facility] 00 skin at [facility] U-100 bedtime. Branch INSULIN) 100 unit/mL (3 mL) injection Insulin Yes [id number] 42U inject 42 [facility] Gl[facility]ine 7-14 Units ity of ([facility] 00:00: under the [place] [facility] 00 skin at [facility]-100 bedtime. Branch INSULIN) 100 unit/mL (3 mL) injection Insulin Yes [id number] 42U inject 42 [facility] Gl[facility]ine 7-14 Units ity of ([facility] 00:00: under the [place] [facility] 00 skin at Medical U-100 bedtime. Branch INSULIN) 100 unit/mL (3 mL) injection Insulin Yes [id number] 42U inject 42 [facility]ine 7-14 Units ity of ([facility] 00:00: under the [place] [facility] 00 skin at [facility] U-100 bedtime. Branch INSULIN) 100 unit/mL (3 mL) injection Insulin Yes [id number] 42U inject 42 [facility] 7-14 Units ity of ([facility] 00:00: under the [place] [facility] 00 skin at Medical U-100 bedtime. Branch INSULIN) 100 unit/mL (3 mL) injection Insulin Yes [id number] 42U inject 42 [facility]ine 7-14 Units ity of ([facility] 00:00: under the [place] [facility] 00 skin at Medical U-100 bedtime. Branch INSULIN) 100 unit/mL (3 mL) injection Insulin Yes [id number] 42U inject 42 [facility]ine 7-14 Units ity of ([facility] 00:00: under the [facility] 00 skin at [place] [address] bedtime. Branch INSULIN) 100 unit/mL (3 mL) injection Insulin Yes [id number] 42U inject 42 [facility] Gl[facility]ine 7-14 Units ity of ([facility] 00:00: under the [facility] 00 skin at [place] [address] bedtime. Branch INSULIN) 100 unit/mL (3 mL) injection Insulin Yes [id number] 42U inject 42 [facility] Gl[facility]ine 7-14 Units ity of ([place] 00:00: under the [place] [address] skin at [place] [address] bedtime. Branch INSULIN) 100 unit/mL (3 mL) injection Insulin Yes [id number] 42U inject 42 [facility] Glargine 7-14 Units ity of ([place] 00:00: under the [place] [address] skin at [place] [address] bedtime. Branch INSULIN) 100 unit/mL (3 mL) injection COLCHICINE Yes [id number] TAKE 1 [facility] 0.6 mg 7-13 TABLET BY ity of tablet 00:00: MOUTH [place] 00 DAILY Medical Branch COLCHICINE 2021-0 Yes [id number] TAKE 1 [facility] 0.6 mg 7-13 TABLET BY ity of tablet 00:00: MOUTH [place] DAILY Medical Branch COLCHICINE 2021-0 Yes [id number] TAKE 1 [facility] 0.6 mg 7-13 TABLET BY ity of tablet 00:00: MOUTH [place] DAILY Medical Branch COLCHICINE 2021-0 2022- No [id number] TAKE 1 [facility] 0.6 mg 7-13 09-15 TABLET BY ity of tablet 00:00: 00:00 MOUTH [place] 00 :00 DAILY Medical Branch DOXAZOSIN 2 2021-0 Yes 2mg TAKE 1 Univ ers mg tablet 6-29 TABLET BY ity o f 00:00: MOUTH AT [place] [address] BEDTIME. Medical Branch DOXAZOSIN 2 0 Yes 2mg TAKE 1 Univ ers mg tablet 6-29 TABLET BY ity o f 00:00: MOUTH AT [place] [address] BEDTIME. Medical Branch DOXAZOSIN 2 0 Yes 2mg TAKE 1 Univ ers mg tablet 6-29 TABLET BY ity o f 00:00: MOUTH AT [place] [address] BEDTIME. Medical Branch DOXAZOSIN 2 2021-0 Yes 2mg TAKE 1 [facility] ers mg tablet 6-29 TABLET BY ity o f 00:00: MOUTH AT [place] 00 BEDTIME. Medical Branch DOXAZOSIN 2 2021-0 Yes 2mg TAKE 1 Univ ers mg tablet 6-29 TABLET BY ity o f 00:00: MOUTH AT [place] 00 BEDTIME. Medical Branch DOXAZOSIN 2 2021-0 Yes 2mg TAKE 1 Univ ers mg tablet 6-29 TABLET BY ity o f 00:00: MOUTH AT [place] 00 BEDTIME. Medical Branch DOXAZOSIN 2 2021-0 Yes 2mg TAKE 1 [facility] ers mg tablet 6-29 TABLET BY ity o f 00:00: MOUTH AT [place] 00 BEDTIME. Medical Branch DOXAZOSIN 2 2021-0 Yes 2mg TAKE 1 Univ ers mg tablet 6-29 TABLET BY ity o f 00:00: MOUTH AT [place] 00 BEDTIME. Medical Branch DOXAZOSIN 2 2021-0 Yes 2mg TAKE 1 Univ ers mg tablet 6-29 TABLET BY ity o f 00:00: MOUTH AT [place] [address] BEDTIME. Medical Branch DOXAZOSIN 2 2021-0 Yes 2mg TAKE 1 Univ ers mg tablet 6-29 TABLET BY ity o f 00:00: MOUTH AT [place] [address] BEDTIME. Medical Branch DOXAZOSIN 2 2021-0 Yes 2mg TAKE 1 Univ ers mg tablet 6-29 TABLET BY ity o f 00:00: MOUTH AT [place] [address] BEDTIME. Medical Branch DOXAZOSIN 2 2021- No 2mg TAKE 1 Uni vers mg tablet 6-29 09-29 TABLET BY ity of 00:00: 00:00 MOUTH AT [place] 00 :00 BEDTIME. Medical Branch LOVAZA, 2021-0 Yes [id number] TAKE 4 Univ ers OMEGA-3-ACI 6-22 CAPSULES ity of D ETHYL 00:00: BY MOUTH [place] ESTERS, 1 00 EVERY DAY Medic al gram Branch capsule LOVAZA, 2021-0 Yes [id number] TAKE 4 Univ ers OMEGA-3-ACI 6-22 CAPSULES ity of D ETHYL 00:00: BY MOUTH [place] ESTERS, 1 00 EVERY DAY Medic al gram Branch capsule LOVAZA, 2021-0 Yes [id number] TAKE 4 Univ ers OMEGA-3-ACI 6-22 CAPSULES ity of D ETHYL 00:00: BY MOUTH [place] ESTERS, 1 00 EVERY DAY Medic al gram Branch capsule LOVAZA, Yes [id number] TAKE 4 Univ ers OMEGA-3-ACI 6-22 CAPSULES ity of D ETHYL 00:00: BY MOUTH [place] ESTERS, 1 00 EVERY DAY Medic al gram Branch capsule LOVAZA, Yes [id number] TAKE 4 Univ ers OMEGA-3-ACI 6-22 CAPSULES ity of D ETHYL 00:00: BY MOUTH [place] ESTERS, 1 00 EVERY DAY Medic al gram Branch capsule LOVAZA, Yes [id number] TAKE 4 Univ ers OMEGA-3-ACI 6-22 CAPSULES ity of D ETHYL 00:00: BY MOUTH [place] ESTERS, 1 00 EVERY DAY Medic al gram Branch capsule LOVAZA, Yes [id number] TAKE 4 Univ ers OMEGA-3-ACI 6-22 CAPSULES ity of D ETHYL 00:00: BY MOUTH [place] EST[facility], 1 00 EVERY DAY Medic al gram Branch capsule LOVAZA, Yes [id number] TAKE 4 Univ ers OMEGA-3-ACI 6-22 CAPSULES ity of D ETHYL 00:00: BY MOUTH [place] [facility], 1 00 EVERY DAY Medic al gram Branch capsule LOVAZA, Yes [id number] TAKE 4 Univ ers OMEGA-3-ACI 6-22 CAPSULES ity of D ETHYL 00:00: BY MOUTH [place] [facility], 1 00 EVERY DAY Medic al gram Branch capsule LOVAZA, Yes [id number] TAKE 4 Univ ers OMEGA-3-ACI 6-22 CAPSULES ity of D ETHYL 00:00: BY MOUTH [place] EST[facility], 1 00 EVERY DAY Medic al gram Branch capsule LOVAZA, Yes [id number] TAKE 4 Univ ers OMEGA-3-ACI 6-22 CAPSULES ity of D ETHYL 00:00: BY MOUTH [place] EST[facility], 1 00 EVERY DAY Medic al gram Branch capsule LOVAZA, Yes [id number] TAKE 4 Univ ers OMEGA-3-ACI 6-22 CAPSULES ity of D ETHYL 00:00: BY MOUTH [place] EST[facility], 1 00 EVERY DAY Medic al gram Branch capsule LOVAZA, Yes [id number] TAKE 4 Univ ers OMEGA-3-ACI 6-22 CAPSULES ity of D ETHYL 00:00: BY MOUTH [place] EST[facility], 1 00 EVERY DAY Medic al gram Branch capsule LOVAZA, Yes [id number] TAKE 4 Univ ers OMEGA-3-ACI 6-22 CAPSULES ity of D ETHYL 00:00: BY MOUTH [place] [facility], 1 00 EVERY DAY Medic al gram Branch capsule LOVAZA, Yes [id number] TAKE 4 Univ ers OMEGA-3-ACI 6-22 CAPSULES ity of D ETHYL 00:00: BY MOUTH [place] EST[facility], 1 00 EVERY DAY Medic al gram Branch capsule LOVAZA, Yes [id number] TAKE 4 Univ ers OMEGA-3-ACI 6-22 CAPSULES ity of D ETHYL 00:00: BY MOUTH [place] [facility], 1 00 EVERY DAY Medic al gram Branch capsule LOVAZA, Yes [id number] TAKE 4 Univ ers OMEGA-3-ACI 6-22 CAPSULES ity of D ETHYL 00:00: BY MOUTH [place] [facility], 1 00 EVERY DAY Medic al gram Branch capsule LOVAZA, Yes [id number] TAKE 4 Univ ers OMEGA-3-ACI 6-22 CAPSULES ity of D ETHYL 00:00: BY MOUTH [place] [facility], 1 00 EVERY DAY Medic al gram Branch capsule LOVAZA, Yes [id number] TAKE 4 Univ ers OMEGA-3-ACI 6-22 CAPSULES ity of D ETHYL 00:00: BY MOUTH [place] [facility], 1 00 EVERY DAY Medic al gram Branch capsule LOVAZA, Yes [id number] TAKE 4 Univ ers OMEGA-3-ACI 6-22 CAPSULES ity of D ETHYL 00:00: BY MOUTH [place] [facility], 1 00 EVERY DAY Medic al gram Branch capsule LOVAZA, Yes [id number] TAKE 4 Univ ers OMEGA-3-ACI 6-22 CAPSULES ity of D ETHYL 00:00: BY MOUTH [place] [facility], 1 00 EVERY DAY Medic al gram Branch capsule LOVAZA, Yes [id number] TAKE 4 Univ ers OMEGA-3-ACI 6-22 CAPSULES ity of D ETHYL 00:00: BY MOUTH [place] [facility], 1 00 EVERY DAY Medic al gram Branch capsule LOVAZA, Yes [id number] TAKE 4 Univ ers OMEGA-3-ACI 6-22 CAPSULES ity of D ETHYL 00:00: BY MOUTH [place] [facility], 1 00 EVERY DAY Medic al gram Branch capsule LOVAZA, Yes [id number] TAKE 4 Univ ers OMEGA-3-ACI 6-22 CAPSULES ity of D ETHYL 00:00: BY MOUTH [place] EST[facility], 1 00 EVERY DAY Medic al gram Branch capsule LOVAZA, Yes [id number] TAKE 4 Univ ers OMEGA-3-ACI 6-22 CAPSULES ity of D ETHYL 00:00: BY MOUTH [place] EST[facility], 1 00 EVERY DAY Medic al gram Branch capsule LOVAZA, Yes [id number] TAKE 4 Univ ers OMEGA-3-ACI 6-22 CAPSULES ity of D ETHYL 00:00: BY MOUTH [place] EST[facility], 1 00 EVERY DAY Medic al gram Branch capsule LOVAZA, Yes [id number] TAKE 4 Univ ers OMEGA-3-ACI 6-22 CAPSULES ity of D ETHYL 00:00: BY MOUTH [place] EST[facility], 1 00 EVERY DAY Medic al gram Branch capsule LOVAZA, Yes [id number] TAKE 4 Univ ers OMEGA-3-ACI 6-22 CAPSULES ity of D ETHYL 00:00: BY MOUTH [place] EST[facility], 1 00 EVERY DAY Medic al gram Branch capsule LOVAZA, Yes [id number] TAKE 4 Univ ers OMEGA-3-ACI 6-22 CAPSULES ity of D ETHYL 00:00: BY MOUTH [place] EST[facility], 1 00 EVERY DAY Medic al gram Branch capsule LOVAZA, Yes [id number] TAKE 4 Univ ers OMEGA-3-ACI 6-22 CAPSULES ity of D ETHYL 00:00: BY MOUTH [place] ESTERS, 1 00 EVERY DAY Medic al gram Branch capsule LOVAZA, Yes [id number] TAKE 4 Univ ers OMEGA-3-ACI 6-22 CAPSULES ity of D ETHYL 00:00: BY MOUTH [place] ESTERS, 1 00 EVERY DAY Medic al gram Branch capsule LOVAZA, Yes [id number] TAKE 4 Univ ers OMEGA-3-ACI 6-22 CAPSULES ity of D ETHYL 00:00: BY MOUTH [place] ESTERS, 1 00 EVERY DAY Medic al gram Branch capsule LOVAZA, Yes [id number] TAKE 4 Univ ers OMEGA-3-ACI 6-22 CAPSULES ity of D ETHYL 00:00: BY MOUTH [place] ESTERS, 1 00 EVERY DAY Medic al gram Branch capsule LOVAZA, Yes [id number] TAKE 4 Univ ers OMEGA-3-ACI 6-22 CAPSULES ity of D ETHYL 00:00: BY MOUTH [place] ESTERS, 1 00 EVERY DAY Medic al gram Branch capsule LOVAZA, Yes [id number] TAKE 4 Univ ers OMEGA-3-ACI 6-22 CAPSULES ity of D ETHYL 00:00: BY MOUTH [place] ESTERS, 1 00 EVERY DAY Medic al gram Branch capsule LOVAZA, Yes [id number] TAKE 4 Univ ers OMEGA-3-ACI 6-22 CAPSULES ity of D ETHYL 00:00: BY MOUTH [place] ESTERS, 1 00 EVERY DAY Medic al gram Branch capsule LOVAZA, Yes [id number] TAKE 4 Univ ers OMEGA-3-ACI 6-22 CAPSULES ity of D ETHYL 00:00: BY MOUTH [place] ESTERS, 1 00 EVERY DAY Medic al gram Branch capsule LOVAZA, Yes [id number] TAKE 4 Univ ers OMEGA-3-ACI 6-22 CAPSULES ity of D ETHYL 00:00: BY MOUTH [place] ESTERS, 1 00 EVERY DAY Medic al gram Branch capsule LOVAZA, Yes [id number] TAKE 4 Univ ers OMEGA-3-ACI 6-22 CAPSULES ity of D ETHYL 00:00: BY MOUTH [place] ESTERS, 1 00 EVERY DAY Medic al gram Branch capsule LOVAZA, Yes [id number] TAKE 4 Univ ers OMEGA-3-ACI 6-22 CAPSULES ity of D ETHYL 00:00: BY MOUTH [place] ESTERS, 1 00 EVERY DAY Medic al gram Branch capsule LOVAZA, Yes [id number] TAKE 4 Univ ers OMEGA-3-ACI 6-22 CAPSULES ity of D ETHYL 00:00: BY MOUTH [place] ESTERS, 1 00 EVERY DAY Medic al gram Branch capsule LOVAZA, Yes [id number] TAKE 4 Univ ers OMEGA-3-ACI 6-22 CAPSULES ity of D ETHYL 00:00: BY MOUTH [place] ESTERS, 1 00 EVERY DAY Medic al gram Branch capsule LOVAZA, Yes [id number] TAKE 4 Univ ers OMEGA-3-ACI 6-22 CAPSULES ity of D ETHYL 00:00: BY MOUTH [place] ESTERS, 1 00 EVERY DAY Medic al gram Branch capsule LOVAZA, Yes [id number] TAKE 4 Univ ers OMEGA-3-ACI 6-22 CAPSULES ity of D ETHYL 00:00: BY MOUTH [place] ESTERS, 1 00 EVERY DAY Medic al gram Branch capsule LOVAZA, Yes [id number] TAKE 4 Univ ers OMEGA-3-ACI 6-22 CAPSULES ity of D ETHYL 00:00: BY MOUTH [place] ESTERS, 1 00 EVERY DAY Medic al gram Branch capsule LOVAZA, Yes [id number] TAKE 4 Univ ers OMEGA-3-ACI 6-22 CAPSULES ity of D ETHYL 00:00: BY MOUTH [place] ESTERS, 1 00 EVERY DAY Medic al gram Branch capsule LOVAZA, Yes [id number] TAKE 4 Univ ers OMEGA-3-ACI 6-22 CAPSULES ity of D ETHYL 00:00: BY MOUTH [place] ESTERS, 1 00 EVERY DAY Medic al gram Branch capsule LOVAZA, Yes [id number] TAKE 4 Univ ers OMEGA-3-ACI 6-22 CAPSULES ity of D ETHYL 00:00: BY MOUTH [place] ESTERS, 1 00 EVERY DAY Medic al gram Branch capsule LOVAZA, Yes [id number] TAKE 4 Univ ers OMEGA-3-ACI 6-22 CAPSULES ity of D ETHYL 00:00: BY MOUTH [place] ESTERS, 1 00 EVERY DAY Medic al gram Branch capsule LOVAZA, Yes [id number] TAKE 4 Univ ers OMEGA-3-ACI 6-22 CAPSULES ity of D ETHYL 00:00: BY MOUTH [place] ESTERS, 1 00 EVERY DAY Medic al gram Branch capsule LOVAZA, Yes [id number] TAKE 4 Univ ers OMEGA-3-ACI 6-22 CAPSULES ity of D ETHYL 00:00: BY MOUTH [place] ESTERS, 1 00 EVERY DAY Medic al gram Branch capsule LOVAZA, Yes [id number] TAKE 4 Univ ers OMEGA-3-ACI 6-22 CAPSULES ity of D ETHYL 00:00: BY MOUTH [place] ESTERS, 1 00 EVERY DAY Medic al gram Branch capsule LOVAZA, Yes [id number] TAKE 4 Univ ers OMEGA-3-ACI 6-22 CAPSULES ity of D ETHYL 00:00: BY MOUTH [place] ESTERS, 1 00 EVERY DAY Medic al gram Branch capsule LOVAZA, Yes [id number] TAKE 4 Univ ers OMEGA-3-ACI 6-22 CAPSULES ity of D ETHYL 00:00: BY MOUTH [place] ESTERS, 1 00 EVERY DAY Medic al gram Branch capsule LOVAZA, Yes [id number] TAKE 4 Univ ers OMEGA-3-ACI 6-22 CAPSULES ity of D ETHYL 00:00: BY MOUTH [place] ESTERS, 1 00 EVERY DAY Medic al gram Branch capsule LOVAZA, Yes [id number] TAKE 4 Univ ers OMEGA-3-ACI 6-22 CAPSULES ity of D ETHYL 00:00: BY MOUTH [place] ESTERS, 1 00 EVERY DAY Medic al gram Branch capsule LOVAZA, Yes [id number] TAKE 4 Univ ers OMEGA-3-ACI 6-22 CAPSULES ity of D ETHYL 00:00: BY MOUTH [place] ESTERS, 1 00 EVERY DAY Medic al gram Branch capsule LOVAZA, Yes [id number] TAKE 4 Univ ers OMEGA-3-ACI 6-22 CAPSULES ity of D ETHYL 00:00: BY MOUTH [place] ESTERS, 1 00 EVERY DAY Medic al gram Branch capsule LOVAZA, Yes [id number] TAKE 4 Univ ers OMEGA-3-ACI 6-22 CAPSULES ity of D ETHYL 00:00: BY MOUTH [place] ESTERS, 1 00 EVERY DAY Medic al gram Branch capsule LOVAZA, Yes [id number] TAKE 4 Univ ers OMEGA-3-ACI 6-22 CAPSULES ity of D ETHYL 00:00: BY MOUTH [place] ESTERS, 1 00 EVERY DAY Medic al gram Branch capsule LOVAZA, Yes [id number] TAKE 4 Univ ers OMEGA-3-ACI 6-22 CAPSULES ity of D ETHYL 00:00: BY MOUTH [place] ESTERS, 1 00 EVERY DAY [facility] capsule LOVAZA, Yes [id number] TAKE 4 Univ ers OMEGA-3-ACI 6-22 CAPSULES ity of D ETHYL 00:00: BY MOUTH [place] ESTERS, 1 00 EVERY DAY [facility] al gram [facility] capsule LOVAZA, Yes [id number] TAKE 4 [facility] ers OMEGA-3-ACI 6-22 CAPSULES ity of D ETHYL 00:00: BY MOUTH [place] ESTERS, 1 00 EVERY DAY [facility] al gram [facility] capsule LOVAZA, Yes [id number] TAKE 4 [facility] ers OMEGA-3-ACI 6-22 CAPSULES ity of D ETHYL 00:00: BY MOUTH [place] ESTERS, 1 00 EVERY DAY [facility] al gram [facility] capsule LOVAZA, Yes [id number] TAKE 4 [facility] ers OMEGA-3-ACI 6-22 CAPSULES ity of D ETHYL 00:00: BY MOUTH [place] ESTERS, 1 00 EVERY DAY [facility] al gram [facility] capsule LOVAZA, Yes [id number] TAKE 4 [facility] ers OMEGA-3-ACI 6-22 CAPSULES ity of D ETHYL 00:00: BY MOUTH [place] ESTERS, 1 00 EVERY DAY [facility] al [facility] capsule LOVAZA, Yes [id number] TAKE 4 [facility] ers OMEGA-3-ACI 6-22 CAPSULES ity of D ETHYL 00:00: BY MOUTH [place] ESTERS, 1 00 EVERY DAY [facility] al gram [facility] capsule LOVAZA, Yes [id number] TAKE 4 [facility] OMEGA-3-ACI 6-22 CAPSULES ity of D ETHYL 00:00: BY MOUTH [place] ESTERS, 1 00 EVERY DAY [facility] al gram [facility] capsule LOVAZA, Yes [id number] TAKE 4 [facility] ers OMEGA-3-ACI 6-22 CAPSULES ity of D ETHYL 00:00: BY MOUTH [place] ESTERS, 1 00 EVERY DAY [facility] al gram [facility] capsule LOVAZA, Yes [id number] TAKE 4 [facility] ers OMEGA-3-ACI 6-22 CAPSULES ity of D ETHYL 00:00: BY MOUTH [place] ESTERS, 1 00 EVERY DAY [facility] al gram [facility] capsule LOVAZA, Yes [id number] TAKE 4 [facility] OMEGA-3-ACI 6-22 CAPSULES ity of D ETHYL 00:00: BY MOUTH [place] ESTERS, 1 00 EVERY DAY [facility] al gram [facility] capsule LOVAZA, Yes [id number] TAKE 4 [facility] OMEGA-3-ACI 6-22 CAPSULES ity of D ETHYL 00:00: BY MOUTH [place] ESTERS, 1 00 EVERY DAY [facility] capsule LOVAZA, Yes [id number] TAKE 4 [facility] OMEGA-3-ACI 6-22 CAPSULES ity of D ETHYL 00:00: BY MOUTH [place] ESTERS, 1 00 EVERY DAY [facility] capsule LOVAZA, Yes [id number] TAKE 4 [facility] OMEGA-3-ACI 6-22 CAPSULES ity of D ETHYL 00:00: BY MOUTH [place] ESTERS, 1 00 EVERY DAY [facility] capsule LOVAZA, Yes [id number] TAKE 4 [facility] OMEGA-3-ACI 6-22 CAPSULES ity of D ETHYL 00:00: BY MOUTH [place] ESTERS, 1 00 EVERY DAY [facility] capsule LOVAZA, Yes [id number] TAKE 4 [facility] OMEGA-3-ACI 6-22 CAPSULES ity of D ETHYL 00:00: BY MOUTH [place] ESTERS, 1 00 EVERY DAY [facility] capsule LOVAZA, Yes [id number] TAKE 4 [facility] OMEGA-3-ACI 6-22 CAPSULES ity of D ETHYL 00:00: BY MOUTH [place] ESTERS, 1 00 EVERY DAY [facility] capsule LOVAZA, Yes [id number] TAKE 4 [facility] OMEGA-3-ACI 6-22 CAPSULES ity of D ETHYL 00:00: BY MOUTH [place] ESTERS, 1 00 EVERY DAY [facility] capsule LOVAZA, Yes [id number] TAKE 4 [facility] OMEGA-3-ACI 6-22 CAPSULES ity of D ETHYL 00:00: BY MOUTH [place] ESTERS, 1 00 EVERY DAY [facility] capsule LOVAZA, Yes [id number] TAKE 4 [facility] OMEGA-3-ACI 6-22 CAPSULES ity of D ETHYL 00:00: BY MOUTH [place] ESTERS, 1 00 EVERY DAY [facility] capsule LOVAZA, Yes [id number] TAKE 4 [facility] OMEGA-3-ACI 6-22 CAPSULES ity of D ETHYL 00:00: BY MOUTH [place] ESTERS, 1 00 EVERY DAY [facility] capsule LOVAZA, Yes [id number] TAKE 4 [facility] OMEGA-3-ACI 6-22 CAPSULES ity of D ETHYL 00:00: BY MOUTH [place] ESTERS, 1 00 EVERY DAY [facility] capsule LOVAZA, Yes [id number] TAKE 4 [facility] OMEGA-3-ACI 6-22 CAPSULES ity of D ETHYL 00:00: BY MOUTH [place] ESTERS, 1 00 EVERY DAY [facility] capsule LOVAZA, Yes [id number] TAKE 4 [facility] OMEGA-3-ACI 6-22 CAPSULES ity of D ETHYL 00:00: BY MOUTH [place] ESTERS, 1 00 EVERY DAY [facility] capsule LOVAZA, Yes [id number] TAKE 4 [facility] OMEGA-3-ACI 6-22 CAPSULES ity of D ETHYL 00:00: BY MOUTH [place] EST[facility], 1 00 EVERY DAY [facility] capsule LOVAZA, Yes [id number] TAKE 4 [facility] OMEGA-3-ACI 6-22 CAPSULES ity of D ETHYL 00:00: BY MOUTH [place] EST[facility], 1 00 EVERY DAY [facility] capsule LOVAZA, Yes [id number] TAKE 4 [facility] OMEGA-3-ACI 6-22 CAPSULES ity of D ETHYL 00:00: BY MOUTH [place] EST[facility], 1 00 EVERY DAY [facility] capsule LOVAZA, Yes [id number] TAKE 4 [facility] OMEGA-3-ACI 6-22 CAPSULES ity of D ETHYL 00:00: BY MOUTH [place] EST[facility], 1 00 EVERY DAY [facility] capsule LOVAZA, Yes [id number] TAKE 4 [facility] OMEGA-3-ACI 6-22 CAPSULES ity of D ETHYL 00:00: BY MOUTH [place] EST[facility], 1 00 EVERY DAY [facility] capsule LOVAZA, Yes [id number] TAKE 4 [facility] OMEGA-3-ACI 6-22 CAPSULES ity of D ETHYL 00:00: BY MOUTH [place] EST[facility], 1 00 EVERY DAY [facility] capsule LOVAZA, Yes [id number] TAKE 4 [facility] OMEGA-3-ACI 6-22 CAPSULES ity of D ETHYL 00:00: BY MOUTH [place] EST[facility], 1 00 EVERY DAY [facility] capsule LOVAZA, Yes [id number] TAKE 4 [facility] OMEGA-3-ACI 6-22 CAPSULES ity of D ETHYL 00:00: BY MOUTH [place] EST[facility], 1 00 EVERY DAY [facility] capsule LOVAZA, Yes [id number] TAKE 4 [facility] OMEGA-3-ACI 6-22 CAPSULES ity of D ETHYL 00:00: BY MOUTH [place] EST[facility], 1 00 EVERY DAY [facility] capsule LOVAZA, Yes [id number] TAKE 4 [facility] OMEGA-3-ACI 6-22 CAPSULES ity of D ETHYL 00:00: BY MOUTH [place] EST[facility], 1 00 EVERY DAY [facility] capsule LOVAZA, Yes [id number] TAKE 4 [facility] OMEGA-3-ACI 6-22 CAPSULES ity of D ETHYL 00:00: BY MOUTH [place] EST[facility], 1 00 EVERY DAY [facility] capsule LOVAZA, Yes [id number] TAKE 4 [facility] OMEGA-3-ACI 6-22 CAPSULES ity of D ETHYL 00:00: BY MOUTH [place] EST[facility], 1 00 EVERY DAY [facility] capsule LOVAZA, Yes [id number] TAKE 4 [facility] OMEGA-3-ACI 6-22 CAPSULES ity of D ETHYL 00:00: BY MOUTH [place] EST[facility], 1 00 EVERY DAY [facility] capsule LOVAZA, Yes [id number] TAKE 4 [facility] OMEGA-3-ACI 6-22 CAPSULES ity of D ETHYL 00:00: BY MOUTH [place] EST[facility], 1 00 EVERY DAY [facility] capsule LOVAZA, Yes [id number] TAKE 4 [facility] OMEGA-3-ACI 6-22 CAPSULES ity of D ETHYL 00:00: BY MOUTH [place] EST[facility], 1 00 EVERY DAY [facility] capsule LOVAZA, Yes [id number] TAKE 4 [facility] OMEGA-3-ACI 6-22 CAPSULES ity of D ETHYL 00:00: BY MOUTH [place] EST[facility], 1 00 EVERY DAY [facility] capsule LOVAZA, Yes [id number] TAKE 4 [facility] OMEGA-3-ACI 6-22 CAPSULES ity of D ETHYL 00:00: BY MOUTH [place] EST[facility], 1 00 EVERY DAY [facility] capsule LOVAZA, Yes [id number] TAKE 4 [facility] OMEGA-3-ACI 6-22 CAPSULES ity of D ETHYL 00:00: BY MOUTH [place] EST[facility], 1 00 EVERY DAY [facility] capsule LOVAZA, Yes [id number] TAKE 4 [facility] OMEGA-3-ACI 6-22 CAPSULES ity of D ETHYL 00:00: BY MOUTH [place] EST[facility], 1 00 EVERY DAY [facility] capsule LOVAZA, Yes [id number] TAKE 4 [facility] OMEGA-3-ACI 6-22 CAPSULES ity of D ETHYL 00:00: BY MOUTH [place] EST[facility], 1 00 EVERY DAY [facility] capsule LOVAZA, Yes [id number] TAKE 4 [facility] OMEGA-3-ACI 6-22 CAPSULES ity of D ETHYL 00:00: BY MOUTH [place] [facility], 1 00 EVERY DAY [facility] capsule LOVAZA, Yes [id number] TAKE 4 [facility] OMEGA-3-ACI 6-22 CAPSULES ity of D ETHYL 00:00: BY MOUTH [place] [facility], 1 00 EVERY DAY [facility] capsule LOVAZA, Yes [id number] TAKE 4 [facility] OMEGA-3-ACI 6-22 CAPSULES ity of D ETHYL 00:00: BY MOUTH [place] [facility], 1 00 EVERY DAY [facility] capsule LOVAZA, Yes [id number] TAKE 4 [facility] OMEGA-3-ACI 6-22 CAPSULES ity of D ETHYL 00:00: BY MOUTH [place] [facility], 1 00 EVERY DAY [facility] capsule LOVAZA, Yes [id number] TAKE 4 [facility] OMEGA-3-ACI 6-22 CAPSULES ity of D ETHYL 00:00: BY MOUTH [place] [facility], 1 00 EVERY DAY [facility] capsule LOVAZA, 3- No [id number] TAKE 4 Uni vers OMEGA-3-ACI 6-22 05-05 CAPSULES ity of D ETHYL 00:00: 00:00 BY MOUTH [place] [facility], 1 00 :00 EVERY DAY [facility] capsule TRUEPLUS Yes INJECT [facility] PEN NEEDLE 6-20 UNDER THE ity of 32 gauge x 00:00: SKIN ONCE [place] " [place] 00 DAILY [facility] Insulin Yes [id number] 36U inject 36 U nivers Glargine 6-20 Units ity of (LANTUS 00:00: under the [place] SOLOST[facility] 00 skin Medical U-100 daily. Branch INSULIN) 100 unit/mL (3 mL) injection TRUEPLUS Yes INJECT [facility] PEN NEEDLE 6-20 UNDER THE ity of 32 gauge x 00:00: SKIN ONCE [place] 32" Ndle DAILY Medical [facility] Insulin 0 Yes [id number] 36U inject 36 U nivers Glargine 6-20 Units ity of (LANTUS 00:00: under the [place] [facility] 00 skin Medical U-100 daily. Branch INSULIN) 100 unit/mL (3 mL) injection TRUEPLUS Yes INJECT [facility] PEN NEEDLE 6-20 UNDER THE ity of 32 gauge x 00:00: SKIN ONCE [place] " N[place] DAILY [facility] Insulin Yes [id number] 36U inject 36 U nivers Glargine 6-20 Units ity of (LANTUS 00:00: under the [place] [facility] 00 skin Medical U-100 daily. Branch INSULIN) 100 unit/mL (3 mL) injection TRUEPLUS Yes INJECT [facility] PEN NEEDLE 6-20 UNDER THE ity of 32 gauge x 00:00: SKIN ONCE [place] " N[place] DAILY [facility] Insulin Yes [id number] 36U inject 36 U nivers Glargine 6-20 Units ity of (LANTUS 00:00: under the [place] [facility] 00 skin Medical U-100 daily. Branch INSULIN) 100 unit/mL (3 mL) injection TRUEPLUS 0 Yes INJECT [facility] PEN NEEDLE 6-20 UNDER THE ity of 32 gauge x 00:00: SKIN ONCE [place] " N[place] DAILY [facility] Insulin Yes [id number] 36U inject 36 U nivers Glargine 6-20 Units ity of ([place]US 00:00: under the [place] [facility] 00 skin Medical U-100 daily. Branch INSULIN) 100 unit/mL (3 mL) injection TRUEPLUS 0 Yes INJECT [facility] PEN NEEDLE 6-20 UNDER THE ity of 32 gauge x 00:00: SKIN ONCE [place] " Ndle DAILY [facility] Insulin Yes [id number] 36U inject 36 U nivers Glargine 6-20 Units ity of ([place]US 00:00: under the [place] [facility] 00 skin Medical U-100 daily. Branch INSULIN) 100 unit/mL (3 mL) injection TRUEPLUS Yes INJECT [facility] PEN NEEDLE 6-20 UNDER THE ity of 32 gauge x 00:00: SKIN ONCE [place] " Ndle DAILY [facility] Insulin Yes [id number] 36U inject 36 U nivers Glargine 6-20 Units ity of (LANTUS 00:00: under the [place] [address] skin Medical U-100 daily. Branch INSULIN) 100 unit/mL (3 mL) injection TRUEPLUS Yes INJECT [facility] PEN NEEDLE 6-20 UNDER THE ity of 32 gauge x 00:00: SKIN ONCE [place] " Ndle DAILY Medical [facility] Insulin Yes [id number] 36U inject 36 U nivers Glargine 6-20 Units ity of (LANTUS 00:00: under the [place] [address] skin Medical U-100 daily. Branch INSULIN) 100 unit/mL (3 mL) injection TRUEPLUS Yes INJECT [facility] PEN NEEDLE 6-20 UNDER THE ity of 32 gauge x 00:00: SKIN ONCE [place] " N[place] DAILY [facility] TRUEPLUS Yes INJECT [facility] PEN NEEDLE 6-20 UNDER THE ity of 32 gauge x 00:00: SKIN ONCE [place] " N[place] DAILY [facility] TRUEPLUS Yes INJECT [facility] PEN NEEDLE 6-20 UNDER THE ity of 32 gauge x 00:00: SKIN ONCE [place] " N[place] DAILY [facility] TRUEPLUS 0 Yes INJECT [facility] PEN NEEDLE 6-20 UNDER THE ity of 32 gauge x 00:00: SKIN ONCE [place] " Ndle DAILY [facility] TRUEPLUS 0 Yes INJECT [facility] PEN NEEDLE 6-20 UNDER THE ity of 32 gauge x 00:00: SKIN ONCE [place] " N[place] DAILY [facility] TRUEPLUS 0 Yes INJECT [facility] PEN NEEDLE 6-20 UNDER THE ity of 32 gauge x 00:00: SKIN ONCE [place] " N[place] DAILY [facility] TRUEPLUS 0 Yes INJECT [facility] PEN NEEDLE 6-20 UNDER THE ity of 32 gauge x 00:00: SKIN ONCE [place] " N[place] DAILY [facility] TRUEPLUS 0 Yes INJECT [facility] PEN NEEDLE 6-20 UNDER THE ity of 32 gauge x 00:00: SKIN ONCE [place] 32" Ndle DAILY [facility] TRUEPLUS 0 Yes INJECT [facility] PEN NEEDLE 6-20 UNDER THE ity of 32 gauge x 00:00: SKIN ONCE [place] 32" Ndle DAILY [facility] TRUEPLUS 0 Yes INJECT [facility] PEN NEEDLE 6-20 UNDER THE ity of 32 gauge x 00:00: SKIN ONCE [place] " Nd DAILY [facility] TRUEPLUS 0 Yes INJECT [facility] PEN NEEDLE 6-20 UNDER THE ity of 32 gauge x 00:00: SKIN ONCE [place] " Nd DAILY [facility] TRUEPLUS 0 Yes INJECT [facility] PEN NEEDLE 6-20 UNDER THE ity of 32 gauge x 00:00: SKIN ONCE [place] " Nd DAILY [facility] TRUEPLUS 0 Yes INJECT [facility] PEN NEEDLE 6-20 UNDER THE ity of 32 gauge x 00:00: SKIN ONCE [place] " Nd DAILY [facility] TRUEPLUS 0 Yes INJECT [facility] PEN NEEDLE 6-20 UNDER THE ity of 32 gauge x 00:00: SKIN ONCE [place] " Nd DAILY [facility] TRUEPLUS 0 Yes INJECT [facility] PEN NEEDLE 6-20 UNDER THE ity of 32 gauge x 00:00: SKIN ONCE [place] " Nd DAILY [facility] TRUEPLUS 0 Yes INJECT [facility] PEN NEEDLE 6-20 UNDER THE ity of 32 gauge x 00:00: SKIN ONCE [place] " Nd DAILY [facility] TRUEPLUS 0 Yes INJECT [facility] PEN NEEDLE 6-20 UNDER THE ity of 32 gauge x 00:00: SKIN ONCE [place] " Ndle DAILY [facility] TRUEPLUS 0 Yes INJECT [facility] PEN NEEDLE 6-20 UNDER THE ity of 32 gauge x 00:00: SKIN ONCE [place] " Ndle DAILY [facility] TRUEPLUS 0 Yes INJECT [facility] PEN NEEDLE 6-20 UNDER THE ity of 32 gauge x 00:00: SKIN ONCE [place] " Nd DAILY [facility] empaglifloz 0 Yes [id number] 10mg Take 1 [facility] in 6-20 tablet by ity of ([place]) 00:00: mouth [place] 10 mg 00 daily. Medical [facility] Insulin 0 Yes [id number] 36U inject 36 U nivers Glargine 6-20 Units ity of (LANTUS 00:00: under the [place] [facility] 00 skin Medical U-100 daily. Branch INSULIN) 100 unit/mL (3 mL) injection TRUEPLUS 0 Yes INJECT [facility] PEN NEEDLE 6-20 UNDER THE ity of 32 gauge x 00:00: SKIN ONCE [place] 5/32" Ndle 00 DAILY [facility] empaglifloz Yes [id number] 10mg Take 1 [facility] in 6-20 tablet by ity of ([place]) 00:00: mouth [place] 10 mg 00 daily. Medical [facility] Insulin Yes [id number] 36U inject 36 U nivers Glargine 6-20 Units ity of ([place]ANTUS 00:00: under the [place] [facility] 00 skin Medical U-100 daily. Branch INSULIN) 100 unit/mL (3 mL) injection TRUEPLUS 0 Yes INJECT [facility] PEN NEEDLE 6-20 UNDER THE ity of 32 gauge x 00:00: SKIN ONCE [place] 5/32" Ndle 00 DAILY [facility] empaglifloz Yes [id number] 10mg Take 1 [facility] in 6-20 tablet by ity of ([place]) 00:00: mouth [place] 10 mg 00 daily. Medical [facility] Insulin 2021- Yes [id number] 36U inject 36 U nivers Glargine 6-20 Units ity of (LANTUS 00:00: under the [place] [facility] 00 skin Medical U-100 daily. Branch INSULIN) 100 unit/mL (3 mL) injection TRUEPLUS 0 Yes INJECT [facility] PEN NEEDLE 6-20 UNDER THE ity of 32 gauge x 00:00: SKIN ONCE [place] 5/32" Ndle 00 DAILY [facility] empaglifloz 0 Yes [id number] 10mg Take 1 [facility] in 6-20 tablet by ity of ([place]) 00:00: mouth [place] 10 mg 00 daily. Medical [facility] Insulin 2021-0 Yes [id number] 36U inject 36 U nivers Glargine 6-20 Units ity of ([place]US 00:00: under the [place] [facility] 00 skin Medical U-100 daily. Branch INSULIN) 100 unit/mL (3 mL) injection TRUEPLUS 0 Yes INJECT [facility] PEN NEEDLE 6-20 UNDER THE ity of 32 gauge x 00:00: SKIN ONCE [place] 532" Ndle 00 DAILY Medical Branch Insulin 2021-0 Yes [id number] 36U inject 36 U nivers Glargine 6-20 Units ity of ([place]US 00:00: under the [place] [facility] 00 skin Medical U-100 daily. Branch INSULIN) 100 unit/mL (3 mL) injection TRUEPLUS Yes INJECT [facility] PEN NEEDLE 6-20 UNDER THE ity of 32 gauge x 00:00: SKIN ONCE [place] " N[place] DAILY [facility] Insulin Yes [id number] 36U inject 36 U nivers Glargine 6-20 Units [facility] INSUL[facility]) 100 unit/mL (3 mL) injection TRUEPLUS Yes INJECT [facility] PEN NEEDLE 6-20 UNDER THE ity of 32 gauge x 00:00: SKIN ONCE [place] " N[place] DAILY [facility] Insulin Yes [id number] 36U inject 36 U nivers Glargine 6-20 Units ity of ([place]US 00:00: under the [place] [facility] 00 skin Medical U-100 daily. Branch INSULIN) 100 unit/mL (3 mL) injection TRUEPLUS Yes INJECT [facility] PEN NEEDLE 6-20 UNDER THE ity of 32 gauge x 00:00: SKIN ONCE [place] 32" Ndle 00 DAILY Medical Branch Insulin 2021-0 Yes [id number] 36U inject 36 U nivers Glargine 6-20 Units ity of ([place]US 00:00: under the [place] [facility] 00 skin Medical U-100 daily. Branch INSULIN) 100 unit/mL (3 mL) injection TRUEPLUS 0 Yes INJECT [facility] PEN NEEDLE 6-20 UNDER THE ity of 32 gauge x 00:00: SKIN ONCE [place] 532" Ndle 00 DAILY Medical Branch Insulin 2021-0 Yes [id number] 36U inject 36 U nivers Glargine 6-20 Units ity of ([place]US 00:00: under the [place] [facility] 00 skin Medical U-100 daily. Branch INSULIN) 100 unit/mL (3 mL) injection TRUEPLUS 0 Yes INJECT [facility] PEN NEEDLE 6-20 UNDER THE ity of 32 gauge x 00:00: SKIN ONCE [place] 532" Ndle 00 DAILY Medical Branch Insulin 2021-0 Yes [id number] 36U inject 36 U nivers Glargine 6-20 Units ity of ([place]US 00:00: under the [place] [facility] 00 skin Medical U-100 daily. Branch INSULIN) 100 unit/mL (3 mL) injection TRUEPLUS 0 Yes INJECT [facility] PEN NEEDLE 6-20 UNDER THE ity of 32 gauge x 00:00: SKIN ONCE [place] " N[place] DAILY [facility] Insulin Yes [id number] 36U inject 36 U nivers Glargine 6-20 Units ity of ([place]US 00:00: under the [place] [facility] 00 skin Medical U-100 daily. Branch INSULIN) 100 unit/mL (3 mL) injection TRUEPLUS Yes INJECT [facility] PEN NEEDLE 6-20 UNDER THE ity of 32 gauge x 00:00: SKIN ONCE [place] 32" Ndle 00 DAILY Medical [facility] Insulin 2021-0 Yes [id number] 36U inject 36 U nivers Glargine 6-20 Units ity of ([place] 00:00: under the [place] [facility] 00 skin Medical U-100 daily. Branch INSULIN) 100 unit/mL (3 mL) injection TRUEPLUS 0 Yes INJECT [facility] PEN NEEDLE 6-20 UNDER THE ity of 32 gauge x 00:00: SKIN ONCE [place] 32" Ndle 00 DAILY Medical Branch Insulin 2021-0 Yes [id number] 36U inject 36 U nivers Glargine 6-20 Units ity of ([place] 00:00: under the [place] [facility] 00 skin Medical U-100 daily. Branch INSULIN) 100 unit/mL (3 mL) injection TRUEPLUS 0 Yes INJECT [facility] PEN NEEDLE 6-20 UNDER THE ity of 32 gauge x 00:00: SKIN ONCE [place] 532" Ndle 00 DAILY Medical Branch Insulin 2021-0 Yes [id number] 36U inject 36 U nivers Glargine 6-20 Units ity of ([place] 00:00: under the [place] [facility] 00 skin Medical U-100 daily. Branch INSULIN) 100 unit/mL (3 mL) injection TRUEPLUS 0 Yes INJECT [facility] PEN NEEDLE 6-20 UNDER THE ity of 32 gauge x 00:00: SKIN ONCE [place] " N[place] DAILY [facility] Insulin 0 Yes [id number] 36U inject 36 U nivers Glargine 6-20 Units ity of ([place] 00:00: under the [place] [facility] 00 skin Medical U-100 daily. Branch INSULIN) 100 unit/mL (3 mL) injection TRUEPLUS 0 Yes INJECT [facility] PEN NEEDLE 6-20 UNDER THE ity of 32 gauge x 00:00: SKIN ONCE [place] " Ndle DAILY [facility] Insulin Yes [id number] 36U inject 36 U nivers Glargine 6-20 Units ity of ([place] 00:00: under the [place] [facility] 00 skin Medical U-100 daily. Branch INSULIN) 100 unit/mL (3 mL) injection TRUEPLUS 0 Yes INJECT [facility] PEN NEEDLE 6-20 UNDER THE ity of 32 gauge x 00:00: SKIN ONCE [place] " Ndle DAILY [facility] Insulin Yes [id number] 36U inject 36 U nivers Glargine 6-20 Units ity of ([place] 00:00: under the [place] [facility] 00 skin Medical U-100 daily. Branch INSULIN) 100 unit/mL (3 mL) injection TRUEPLUS 0 Yes INJECT [facility] PEN NEEDLE 6-20 UNDER THE ity of 32 gauge x 00:00: SKIN ONCE [place] " N[place] DAILY [facility] Insulin Yes [id number] 36U inject 36 U nivers Glargine 6-20 Units ity of ([place] 00:00: under the [place] [facility] 00 skin Medical U-100 daily. Branch INSULIN) 100 unit/mL (3 mL) injection TRUEPLUS 0 Yes INJECT [facility] PEN NEEDLE 6-20 UNDER THE ity of 32 gauge x 00:00: SKIN ONCE [place] " N[place] DAILY [facility] Insulin Yes [id number] 36U inject 36 U nivers Glargine 6-20 Units ity of ([place] 00:00: under the [place] [facility] 00 skin Medical U-100 daily. Branch INSULIN) 100 unit/mL (3 mL) injection TRUEPLUS Yes INJECT [facility] PEN NEEDLE 6-20 UNDER THE ity of 32 gauge x 00:00: SKIN ONCE [place] " N[place] DAILY [facility] Insulin 0 Yes [id number] 36U inject 36 U nivers Glargine 6-20 Units ity of ([place] 00:00: under the [place] [facility] 00 skin Medical U-100 daily. Branch INSULIN) 100 unit/mL (3 mL) injection TRUEPLUS Yes INJECT [facility] PEN NEEDLE 6-20 UNDER THE ity of 32 gauge x 00:00: SKIN ONCE [place] " N[place] DAILY [facility] Insulin Yes [id number] 36U inject 36 U nivers Glargine 6-20 Units ity of ([place] 00:00: under the [place] [facility] 00 skin Medical U-100 daily. Branch INSULIN) 100 unit/mL (3 mL) injection TRUEPLUS Yes INJECT [facility] PEN NEEDLE 6-20 UNDER THE ity of 32 gauge x 00:00: SKIN ONCE [place] " N[place] DAILY [facility] Insulin Yes [id number] 36U inject 36 U nivers Glargine 6-20 Units ity of ([place] 00:00: under the [place] [facility] 00 skin Medical U-100 daily. Branch INSULIN) 100 unit/mL (3 mL) injection TRUEPLUS 0 Yes INJECT [facility] PEN NEEDLE 6-20 UNDER THE ity of 32 gauge x 00:00: SKIN ONCE [place] 32" Ndle DAILY [facility] Insulin 0 Yes [id number] 36U inject 36 U nivers Glargine 6-20 Units ity of ([place] 00:00: under the [place] [facility] 00 skin Medical U-100 daily. Branch INSULIN) 100 unit/mL (3 mL) injection TRUEPLUS Yes INJECT [facility] PEN NEEDLE 6-20 UNDER THE ity of 32 gauge x 00:00: SKIN ONCE [place] 5/32" Ndle 00 DAILY Medical Branch Insulin 2021-0 Yes [id number] 36U inject 36 U nivers Glargine 6-20 Units ity of ([place] 00:00: under the [place] [facility] 00 skin Medical U-100 daily. Branch INSULIN) 100 unit/mL (3 mL) injection TRUEPLUS 0 Yes INJECT [facility] PEN NEEDLE 6-20 UNDER THE ity of 32 gauge x 00:00: SKIN ONCE [place] " N[place] DAILY [facility] Insulin 2021-0 Yes [id number] 36U inject 36 U nivers Glargine 6-20 Units ity of ([place] 00:00: under the [place] [facility] 00 skin Medical U-100 daily. Branch INSULIN) 100 unit/mL (3 mL) injection TRUEPLUS 0 Yes INJECT [facility] PEN NEEDLE 6-20 UNDER THE ity of 32 gauge x 00:00: SKIN ONCE [place] " N[place] DAILY [facility] Insulin 2021- Yes [id number] 36U inject 36 U nivers Glargine 6-20 Units ity of ([place] 00:00: under the [place] [facility] 00 skin Medical U-100 daily. Branch INSULIN) 100 unit/mL (3 mL) injection TRUEPLUS 0 Yes INJECT [facility] PEN NEEDLE 6-20 UNDER THE ity of 32 gauge x 00:00: SKIN ONCE [place] " N[place] DAILY [facility] Insulin 2021-0 Yes [id number] 36U inject 36 U nivers Glargine 6-20 Units ity of ([place] 00:00: under the [place] [facility] 00 skin Medical U-100 daily. Branch INSULIN) 100 unit/mL (3 mL) injection TRUEPLUS 0 Yes INJECT [facility] PEN NEEDLE 6-20 UNDER THE ity of 32 gauge x 00:00: SKIN ONCE [place] " N[place] DAILY [facility] Insulin 2021-0 Yes [id number] 36U inject 36 U nivers Glargine 6-20 Units ity of ([place] 00:00: under the [place] [facility] 00 skin Medical U-100 daily. Branch INSULIN) 100 unit/mL (3 mL) injection TRUEPLUS 0 Yes INJECT [facility] PEN NEEDLE 6-20 UNDER THE ity of 32 gauge x 00:00: SKIN ONCE [place] " N[place] 00 DAILY [facility] Insulin 2021-0 Yes [id number] 36U inject 36 U nivers Glargine 6-20 Units ity of ([place] 00:00: under the [place] [facility] 00 skin Medical U-100 daily. Branch INSULIN) 100 unit/mL (3 mL) injection TRUEPLUS 0 Yes INJECT [facility] PEN NEEDLE 6-20 UNDER THE ity of 32 gauge x 00:00: SKIN ONCE [place] " [place] DAILY [facility] Insulin 2021-0 Yes [id number] 36U inject 36 U nivers Glargine 6-20 Units ity of ([place] 00:00: under the [place] [facility] 00 skin Medical U-100 daily. Branch INSULIN) 100 unit/mL (3 mL) injection TRUEPLUS 0 Yes INJECT [facility] PEN NEEDLE 6-20 UNDER THE ity of 32 gauge x 00:00: SKIN ONCE [place] " N[place] DAILY [facility] Insulin 2021-0 Yes [id number] 36U inject 36 U nivers Glargine 6-20 Units ity of ([place] 00:00: under the [place] [facility] 00 skin Medical U-100 daily. Branch INSULIN) 100 unit/mL (3 mL) injection TRUEPLUS 0 Yes INJECT [facility] PEN NEEDLE 6-20 UNDER THE ity of 32 gauge x 00:00: SKIN ONCE [place] " N[place] DAILY [facility] Insulin 2021-0 Yes [id number] 36U inject 36 U nivers Glargine 6-20 Units ity of ([place] 00:00: under the [place] [facility] 00 skin Medical U-100 daily. Branch INSULIN) 100 unit/mL (3 mL) injection TRUEPLUS 2021-0 Yes INJECT [facility] PEN NEEDLE 6-20 UNDER THE ity of 32 gauge x 00:00: SKIN ONCE [place] " N[place] 00 DAILY [facility] Insulin 2021-0 Yes [id number] 36U inject 36 U nivers Glargine 6-20 Units ity of ([place] 00:00: under the [place] [facility] 00 skin Medical U-100 daily. Branch INSULIN) 100 unit/mL (3 mL) injection TRUEPLUS 0 Yes INJECT [facility] PEN NEEDLE 6-20 UNDER THE ity of 32 gauge x 00:00: SKIN ONCE [place] " N[place] DAILY [facility] Insulin 0 Yes [id number] 36U inject 36 U nivers Glargine 6-20 Units ity of ([place] 00:00: under the [place] [facility] 00 skin Medical U-100 daily. Branch INSULIN) 100 unit/mL (3 mL) injection TRUEPLUS Yes INJECT [facility] PEN NEEDLE 6-20 UNDER THE ity of 32 gauge x 00:00: SKIN ONCE [place] " N[place] DAILY Medical [facility] Insulin Yes [id number] inject 36 U nivers Glargine 6-20 Units ity of ([place] 00:00: under the [place] [facility] 00 skin Medical U-100 daily. Branch INSULIN) 100 unit/mL (3 mL) injection TRUEPLUS Yes INJECT [facility] PEN NEEDLE 6-20 UNDER THE ity of 32 gauge x 00:00: [place]CE [place] " [place] DAILY [facility] Insulin Yes [id number] 36U inject 36 U nivers Glargine 6-20 Units ity of ([place] 00:00: under the [place] [facility] 00 skin Medical U-100 daily. Branch INSULIN) 100 unit/mL (3 mL) injection TRUEPLUS Yes INJECT [facility] PEN NEEDLE 6-20 UNDER THE ity of 32 gauge x 00:00: [place]CE [place] " [place] DAILY [facility] Insulin Yes [id number] 36U inject 36 U nivers Glargine 6-20 Units ity of ([place] 00:00: under the [place] [facility] 00 skin Medical U-100 daily. Branch INSULIN) 100 unit/mL (3 mL) injection TRUEPLUS 0 Yes INJECT [facility] PEN NEEDLE 6-20 UNDER THE ity of 32 gauge x 00:00: [place]CE [place] " [place] DAILY [facility] Insulin Yes [id number] 36U inject 36 U nivers Glargine 6-20 Units ity of ([place] 00:00: under the [place] [facility] 00 skin Medical U-100 daily. Branch INSULIN) 100 unit/mL (3 mL) injection TRUEPLUS 2022-0 Yes INJECT [facility] PEN NEEDLE 6-20 UNDER THE ity of 32 gauge x 00:00: [place]CE [place] " [place] DAILY [facility] Insulin Yes [id number] 36U inject 36 U nivers Glargine 6-20 Units ity of ([place] 00:00: under the [place] [facility] 00 skin Medical U-100 daily. Branch INSULIN) 100 unit/mL (3 mL) injection TRUEPLUS Yes INJECT [facility] PEN NEEDLE 6-20 UNDER THE ity of 32 gauge x 00:00: [place]CE [place] " [place] DAILY [facility] Insulin Yes [id number] 36U inject 36 U nivers Glargine 6-20 Units ity of ([place] 00:00: under the [place] [facility] 00 skin Medical U-100 daily. Branch INSULIN) 100 unit/mL (3 mL) injection TRUEPLUS Yes INJECT [facility] PEN NEEDLE 6-20 UNDER THE ity of 32 gauge x 00:00: [place]CE [place] " [place] DAILY [facility] Insulin Yes [id number] 36U inject 36 U nivers Glargine 6-20 Units ity of ([place] 00:00: under the [place] [facility] 00 skin Medical U-100 daily. Branch INSULIN) 100 unit/mL (3 mL) injection TRUEPLUS Yes INJECT [facility] PEN NEEDLE 6-20 UNDER THE ity of 32 gauge x 00:00: [place] ONCE [place] " [place] DAILY [facility] Insulin Yes [id number] 36U inject 36 U nivers Glargine 6-20 Units ity of ([place] 00:00: under the [place] [facility] 00 skin Medical U-100 daily. Branch INSULIN) 100 unit/mL (3 mL) injection TRUEPLUS 0 Yes INJECT [facility] PEN NEEDLE 6-20 UNDER THE ity of 32 gauge x 00:00: [place]CE [place] " [place] DAILY [facility] Insulin Yes [id number] 36U inject 36 U nivers Glargine 6-20 Units ity of ([place] 00:00: under the [place] [facility] 00 skin Medical U-100 daily. Branch INSULIN) 100 unit/mL (3 mL) injection TRUEPLUS 0 Yes INJECT [facility] PEN NEEDLE 6-20 UNDER THE ity of 32 gauge x 00:00: [place]CE [place] " [place] DAILY [facility] Insulin 0 Yes [id number] 36U inject 36 U n[facility] Glargine 6-20 Units ity of ([place] 00:00: under the [place] [facility] 00 skin Medical U-100 daily. Branch INSULIN) 100 unit/mL (3 mL) injection TRUEPLUS Yes INJECT [facility] PEN NEEDLE 6-20 UNDER THE ity of 32 gauge x 00:00: [place]CE [place] " [place] 00 DAILY [facility] Branch Insulin Yes [id number] 36U inject 36 U n[facility] [place] 6-20 Units ity of ([place] 00:00: under the [place] [facility] 00 skin Medical U-100 daily. Branch INSULIN) 100 unit/mL (3 mL) injection TRUEPLUS Yes INJECT [facility] PEN NEEDLE 6-20 UNDER THE ity of 32 gauge x 00:00: [place]CE [place] " [place] DAILY [facility] Insulin Yes [id number] 36U inject 36 U nivers Glargine 6-20 Units ity of ([place] 00:00: under the [place] [facility] 00 skin Medical U-100 daily. Branch INSULIN) 100 unit/mL (3 mL) injection TRUEPLUS 0 Yes INJECT [facility] PEN NEEDLE 6-20 UNDER THE ity of 32 gauge x 00:00: [place]CE [place] " [place] DAILY [facility] Insulin 2021-0 Yes [id number] 36U inject 36 U nivers Gl[place] 6-20 Units ity of ([place] 00:00: under the [place] [facility] 00 skin Medical U-100 daily. Branch INSULIN) 100 unit/mL (3 mL) injection TRUEPLUS 0 Yes INJECT [facility] PEN NEEDLE 6-20 UNDER THE ity of 32 gauge x 00:00: [place]CE [place] 32" N[place] 00 DAILY Medical Branch Insulin 2021-0 Yes [id number] 36U inject 36 U nivers Gl[place] 6-20 Units ity of ([place] 00:00: under the [place] [facility] 00 skin Medical U-100 daily. Branch INSULIN) 100 unit/mL (3 mL) injection TRUEPLUS 0 Yes INJECT [facility] PEN NEEDLE 6-20 UNDER THE ity of 32 gauge x 00:00: [place]CE [place]" N[place] 00 DAILY Medical Branch Insulin 2021-0 Yes [id number] 36U inject 36 U nivers Glargine 6-20 Units ity of ([place] 00:00: under the [place] [facility] 00 skin Medical U-100 daily. Branch INSULIN) 100 unit/mL (3 mL) injection TRUEPLUS 0 Yes INJECT [facility] PEN NEEDLE 6-20 UNDER THE ity of 32 gauge x 00:00: SK[place]CE [place]" N[place] DAILY [facility] Branch Insulin Yes [id number] 36U inject 36 U nivers Glargine 6-20 Units ity of ([place] 00:00: under the [place] [facility] 00 skin Medical U-100 daily. Branch INSULIN) 100 unit/mL (3 mL) injection TRUEPLUS Yes INJECT [facility] PEN NEEDLE 6-20 UNDER THE ity of 32 gauge x 00:00: SK[place] ONCE [place] 32" Ndle 00 DAILY Medical Branch Insulin 0 Yes [id number] 36U inject 36 U nivers Glargine 6-20 Units ity of ([place] 00:00: under the [place] [facility] 00 skin Medical U-100 daily. Branch INSULIN) 100 unit/mL (3 mL) injection TRUEPLUS 0 Yes INJECT [facility] PEN NEEDLE 6-20 UNDER THE ity of 32 gauge x 00:00: SK[place] ONCE [place] 32" Ndle 00 DAILY Medical Branch Insulin 2021-0 Yes [id number] 36U inject 36 U nivers Glargine 6-20 Units ity of ([place] 00:00: under the [place] [facility] 00 skin Medical U-100 daily. Branch INSULIN) 100 unit/mL (3 mL) injection TRUEPLUS 0 Yes INJECT [facility] PEN NEEDLE 6-20 UNDER THE ity of 32 gauge x 00:00: [place]CE [place]" N[place] 00 DAILY Medical Branch Insulin 2021-0 Yes [id number] 36U inject 36 U nivers Glargine 6-20 Units ity of ([place] 00:00: under the [place] [facility] 00 skin Medical U-100 daily. Branch INSULIN) 100 unit/mL (3 mL) injection TRUEPLUS Yes INJECT [facility] PEN NEEDLE 6-20 UNDER THE ity of 32 gauge x 00:00: SK[place] ONCE [place] " [place] DAILY [facility] Insulin 0 Yes [id number] 36U inject 36 U nivers Glargine 6-20 Units ity of ([place] 00:00: under the [place] [facility] 00 skin Medical U-100 daily. Branch INSULIN) 100 unit/mL (3 mL) injection TRUEPLUS Yes INJECT [facility] PEN NEEDLE 6-20 UNDER THE ity of 32 gauge x 00:00: [place]CE [place] " [place] DAILY [facility] Insulin Yes [id number] 36U inject 36 U nivers Glargine 6-20 Units [facility] [facility] INSULIN) 100 unit/mL (3 mL) injection TRUEPLUS Yes INJECT [facility] PEN NEEDLE 6-20 UNDER THE ity of 32 gauge x 00:00: SK[place] ONCE [place] " [place] DAILY [facility] Insulin Yes [id number] 36U inject 36 U nivers Glargine 6-20 Units ity of ([place] 00:00: under the [place] [facility] 00 skin Medical U-100 daily. Branch INSULIN) 100 unit/mL (3 mL) injection TRUEPLUS Yes INJECT [facility] PEN NEEDLE 6-20 UNDER THE ity of 32 gauge x 00:00: SK[place] ONCE [place] " [place] DAILY [facility] Insulin 0 Yes [id number] 36U inject 36 U nivers Glargine 6-20 Units ity of ([place] 00:00: under the [place] [facility] 00 skin Medical U-100 daily. Branch INSULIN) 100 unit/mL (3 mL) injection TRUEPLUS 0 Yes INJECT [facility] PEN NEEDLE 6-20 UNDER THE ity of 32 gauge x 00:00: SK[place] ONCE [place] 32" Ndle DAILY Medical Branch Insulin 0 Yes [id number] 36U inject 36 U nivers Glargine 6-20 Units ity of ([place] 00:00: under the [place] [facility] 00 skin Medical U-100 daily. Branch INSULIN) 100 unit/mL (3 mL) injection TRUEPLUS 0 Yes INJECT [facility] PEN NEEDLE 6-20 UNDER THE ity of 32 gauge x 00:00: SK[place]CE [place] 532" Ndle 00 DAILY Medical Branch Insulin 2021-0 Yes [id number] 36U inject 36 U nivers Glargine 6-20 Units ity of ([place] 00:00: under the [place] [facility] 00 skin Medical U-100 daily. Branch INSULIN) 100 unit/mL (3 mL) injection TRUEPLUS 0 Yes INJECT [facility] PEN NEEDLE 6-20 UNDER THE ity of 32 gauge x 00:00: SK[place] ONCE [place] " [place] DAILY [facility] Branch Insulin Yes [id number] 36U inject 36 U nivers Gl[place] 6-20 Units ity of ([place] 00:00: under the [place] [facility] 00 skin Medical U-100 daily. Branch INSULIN) 100 unit/mL (3 mL) injection TRUEPLUS Yes INJECT [facility] PEN NEEDLE 6-20 UNDER THE ity of 32 gauge x 00:00: SK[place] ONCE [place] " N[place] 00 DAILY Medical Branch Insulin 2021-0 Yes [id number] 36U inject 36 U nivers Glargine 6-20 Units ity of ([place] 00:00: under the [place] [facility] 00 skin Medical U-100 daily. Branch INSULIN) 100 unit/mL (3 mL) injection TRUEPLUS 0 Yes INJECT [facility] PEN NEEDLE 6-20 UNDER THE ity of 32 gauge x 00:00: SK[place] ONCE [place] " N[place] 00 DAILY Medical Branch Insulin 2021-0 Yes [id number] 36U inject 36 U nivers Glargine 6-20 Units ity of ([place] 00:00: under the [place] [facility] 00 skin Medical U-100 daily. Branch INSULIN) 100 unit/mL (3 mL) injection TRUEPLUS 0 Yes INJECT [facility] PEN NEEDLE 6-20 UNDER THE ity of 32 gauge x 00:00: SK[place] ONCE [place] 32" Ndle 00 DAILY Medical Branch Insulin 2021-0 Yes [id number] 36U inject 36 U nivers Glargine 6-20 Units ity of ([place] 00:00: under the [place] [facility] 00 skin Medical U-100 daily. Branch INSULIN) 100 unit/mL (3 mL) injection TRUEPLUS 0 Yes INJECT [facility] PEN NEEDLE 6-20 UNDER THE ity of 32 gauge x 00:00: SK[place] ONCE [place] " [place] DAILY [facility] Branch Insulin 0 Yes [id number] 36U inject 36 U nivers Glargine 6-20 Units ity of ([place] 00:00: under the [place] [facility] 00 skin Medical U-100 daily. Branch INSULIN) 100 unit/mL (3 mL) injection TRUEPLUS Yes INJECT [facility] PEN NEEDLE 6-20 UNDER THE ity of 32 gauge x 00:00: SK[place] ONCE [place] " [place] DAILY [facility] Branch Insulin Yes [id number] 36U inject 36 U nivers Glargine 6-20 Units ity of ([place] 00:00: under the [place] [facility] 00 skin Medical U-100 daily. Branch INSULIN) 100 unit/mL (3 mL) injection TRUEPLUS Yes INJECT [facility] PEN NEEDLE 6-20 UNDER THE ity of 32 gauge x 00:00: [place]CE [place] " [place] DAILY Medical Branch Insulin Yes [id number] 36U inject 36 U nivers Glargine 6-20 Units ity of ([place] 00:00: under the [place] [facility] 00 skin Medical U-100 daily. Branch INSULIN) 100 unit/mL (3 mL) injection TRUEPLUS 0 Yes INJECT [facility] PEN NEEDLE 6-20 UNDER THE ity of 32 gauge x 00:00: SK[place] ONCE [place] " [place] DAILY [facility] Branch Insulin Yes [id number] 36U inject 36 U nivers Glargine 6-20 Units ity of ([place] 00:00: under the [place] [facility] 00 skin Medical U-100 daily. Branch INSULIN) 100 unit/mL (3 mL) injection TRUEPLUS 0 3- No INJECT Univer s PEN NEEDLE 6-20 -03 UNDER THE ity of 32 gauge x 00:00: 00:00 [place]CE [place] 5/32" Ndle 00 :00 DAILY Medical Branch Insulin 2021-0 3- No [id number] 36U inject 36 [facility] Glargine 10-16 03-02 Units ity of ([place] 00:00: [place] [facility] [place] :[place] skin Medical U-100 daily. Branch INSULIN) 100 unit/mL (3 mL) injection empaglifloz 2021-0 2021- No [id number] 10mg Take 1 [facility] in 10-16-15 tablet by ity of ([place]) 00:00: [place] 10 [place] 00 :00 daily. [facility] AMLODIPINE 2021-0 Yes [id number] 5mg TAKE 1 [facility] [place] 5 mg tablet 6-16 TABLET BY ity of 00:00: [facility] DAILY Medical Branch AMLODIPINE 2-0 Yes [id number] 5mg TAKE 1 [place] 5 mg tablet 6-16 TABLET BY ity of 00:00: [facility] DAILY Medical Branch AMLODIPINE 2-0 Yes [id number] 5mg TAKE 1 [place] 5 mg tablet 6-16 TABLET BY ity of 00:00: DAILY Medical Branch AMLODIPINE 2-0 Yes [id number] 5mg TAKE 1 [place] 5 mg tablet 6-16 TABLET BY ity of 00:00: [facility] DAILY Medical Branch AMLODIPINE 2-0 Yes [id number] 5mg TAKE 1 [place] 5 mg tablet 6-16 TABLET BY ity of 00:00: [facility] DAILY Medical Branch AMLODIPINE 2-0 Yes [id number] 5mg TAKE 1 [facility] [place] 5 mg tablet 6-16 TABLET BY ity of 00:00: [facility] DAILY Medical Branch AMLODIPINE 2-0 Yes [id number] 5mg TAKE 1 [facility] [place] 5 mg tablet 6-16 TABLET BY ity of 00:00: [facility] DAILY Medical Branch AMLODIPINE 2-0 Yes [id number] 5mg TAKE 1 [facility] [place] 5 mg tablet 6-16 TABLET BY ity of 00:00: [facility] DAILY Medical Branch AMLODIPINE 2022-0 Yes [id number] 5mg TAKE 1 [facility] [place] 5 mg tablet 6-16 TABLET BY ity of 00:00: [facility] DAILY Medical Branch AMLODIPINE 2-0 Yes [id number] 5mg TAKE 1 [facility] [place] 5 mg tablet 6-16 TABLET BY ity of 00:00: DAILY Medical Branch AMLODIPINE 2022-0 Yes [id number] 5mg TAKE 1 [place] 5 mg tablet 6-16 TABLET BY ity of 00:00: DAILY Medical Branch AMLODIPINE 2022-0 Yes [id number] 5mg TAKE 1 [facility] [place] 5 mg tablet 6-16 TABLET BY ity of 00:00: DAILY Medical Branch AMLODIPINE 2022-0 Yes [id number] 5mg TAKE 1 [place] 5 mg tablet 6-16 TABLET BY ity of 00:00: DAILY Medical Branch AMLODIPINE 2022-0 Yes [id number] 5mg TAKE 1 [place] 5 mg tablet 6-16 TABLET BY ity of 00:00: DAILY Medical Branch AMLODIPINE 2022-0 Yes [id number] 5mg TAKE 1 [facility] [place] 5 mg tablet 6-16 TABLET BY ity of 00:00: DAILY Medical Branch AMLODIPINE 2022-0 Yes [id number] 5mg TAKE 1 [facility] [place] 5 mg tablet 6-16 TABLET BY ity of 00:00: DAILY Medical Branch AMLODIPINE 2022-0 Yes [id number] 5mg TAKE 1 [facility] [place] 5 mg tablet 6-16 TABLET BY ity of 00:00: [facility] DAILY Medical Branch AMLODIPINE 2022-0 Yes [id number] 5mg TAKE 1 [facility] [place] 5 mg tablet 6-16 TABLET BY ity of 00:00: [facility] DAILY Medical Branch AMLODIPINE 2022-0 Yes [id number] 5mg TAKE 1 [facility] [place] 5 mg tablet 6-16 TABLET BY ity of 00:00: [facility] DAILY Medical Branch AMLODIPINE 2022-0 Yes [id number] 5mg TAKE 1 [facility] [place] 5 mg tablet 6-16 TABLET BY ity of 00:00: [facility] DAILY Medical Branch AMLODIPINE 2022-0 Yes [id number] 5mg TAKE 1 [place] 5 mg tablet 6-16 TABLET BY ity of 00:00: [facility] DAILY Medical Branch AMLODIPINE 2022-0 Yes [id number] 5mg TAKE 1 [facility] [place] 5 mg tablet 6-16 TABLET BY ity of 00:00: [facility] DAILY Medical Branch AMLODIPINE 2022-0 Yes [id number] 5mg TAKE 1 [place] 5 mg tablet 6-16 TABLET BY ity of 00:00: DAILY Medical Branch AMLODIPINE 2022-0 Yes [id number] 5mg TAKE 1 [facility] [place] 5 mg tablet 6-16 TABLET BY ity of 00:00: DAILY Medical Branch AMLODIPINE 2022-0 Yes [id number] 5mg TAKE 1 [facility] [place] 5 mg tablet 6-16 TABLET BY ity of 00:00: DAILY Medical Branch AMLODIPINE 2022-0 Yes [id number] 5mg TAKE 1 [facility] [place] 5 mg tablet 6-16 TABLET BY ity of 00:00: DAILY Medical Branch AMLODIPINE 2022-0 Yes [id number] 5mg TAKE 1 [facility] [place] 5 mg tablet 6-16 TABLET BY ity of 00:00: DAILY Medical Branch AMLODIPINE 2022-0 Yes [id number] 5mg TAKE 1 [facility] [place] 5 mg tablet 6-16 TABLET BY ity of 00:00: DAILY Medical Branch TAMSULOSIN 2022-0 Yes [id number] .4mg TAKE 1 [facility] 0.4 mg 24 6-16 CAPSULE BY ity of hr capsule 00:00: DAILY Medical Branch AMLODIPINE 2022-0 Yes [id number] 5mg TAKE 1 [facility] [place] 5 mg tablet 6-16 TABLET BY ity of 00:00: DAILY Medical Branch TAMSULOSIN 2022-0 Yes [id number] .4mg TAKE 1 [facility] 0.4 mg 24 6-16 CAPSULE BY ity of hr capsule 00:00: DAILY Medical Branch AMLODIPINE 2022-0 Yes [id number] 5mg TAKE 1 [facility] [place] 5 mg tablet 6-16 TABLET BY ity of 00:00: [facility] DAILY Medical Branch TAMSULOSIN 2022-0 Yes [id number] .4mg TAKE 1 [facility] 0.4 mg 24 6-16 CAPSULE BY ity of hr capsule 00:00: DAILY Medical Branch AMLODIPINE 2022-0 Yes [id number] 5mg TAKE 1 [place] 5 mg tablet 6-16 TABLET BY ity of 00:00: DAILY Medical Branch AMLODIPINE 2022-0 Yes [id number] 5mg TAKE 1 [place] 5 mg tablet 6-16 TABLET BY ity of 00:00: DAILY Medical Branch AMLODIPINE 2022-0 Yes [id number] 5mg TAKE 1 [facility] [place] 5 mg tablet 6-16 TABLET BY ity of 00:00: DAILY Medical Branch AMLODIPINE 2022-0 Yes [id number] 5mg TAKE 1 [place] 5 mg tablet 6-16 TABLET BY ity of 00:00: DAILY Medical Branch AMLODIPINE 2022-0 Yes [id number] 5mg TAKE 1 [place] 5 mg tablet 6-16 TABLET BY ity of 00:00: DAILY Medical Branch AMLODIPINE 2022-0 Yes [id number] 5mg TAKE 1 [place] 5 mg tablet 6-16 TABLET BY ity of 00:00: DAILY Medical Branch AMLODIPINE 2022-0 Yes [id number] 5mg TAKE 1 [place] 5 mg tablet 6-16 TABLET BY ity of 00:00: DAILY Medical Branch AMLODIPINE 2022-0 Yes [id number] 5mg TAKE 1 [place] 5 mg tablet 6-16 TABLET BY ity of 00:00: [facility] DAILY Medical Branch AMLODIPINE 2022-0 Yes [id number] 5mg TAKE 1 [place] 5 mg tablet 6-16 TABLET BY ity of 00:00: DAILY Medical Branch AMLODIPINE 2022-0 Yes [id number] 5mg TAKE 1 [facility] [place] 5 mg tablet 6-16 TABLET BY ity of 00:00: [facility] DAILY Medical Branch AMLODIPINE 2022-0 Yes [id number] 5mg TAKE 1 [place] 5 mg tablet 6-16 TABLET BY ity of 00:00: [facility] DAILY Medical Branch AMLODIPINE 2022-0 Yes [id number] 5mg TAKE 1 [place] 5 mg tablet 6-16 TABLET BY ity of 00:00: DAILY Medical Branch AMLODIPINE 2022-0 Yes [id number] 5mg TAKE 1 [place] 5 mg tablet 6-16 TABLET BY ity of 00:00: [facility] DAILY Medical Branch AMLODIPINE 2022-0 Yes [id number] 5mg TAKE 1 [place] 5 mg tablet 6-16 TABLET BY ity of 00:00: [facility] DAILY Medical Branch AMLODIPINE 2022-0 Yes [id number] 5mg TAKE 1 [place] 5 mg tablet 6-16 TABLET BY ity of 00:00: [facility] DAILY Medical Branch AMLODIPINE 2022-0 Yes [id number] 5mg TAKE 1 [facility] [place] 5 mg tablet 6-16 TABLET BY ity of 00:00: [facility] DAILY Medical Branch AMLODIPINE 2022-0 Yes [id number] 5mg TAKE 1 [place] 5 mg tablet 6-16 TABLET BY ity of 00:00: [facility] DAILY Medical Branch AMLODIPINE 2022-0 Yes [id number] 5mg TAKE 1 [facility] [place] 5 mg tablet 6-16 TABLET BY ity of 00:00: [facility] DAILY Medical Branch AMLODIPINE 2022-0 Yes [id number] 5mg TAKE 1 [place] 5 mg tablet 6-16 TABLET BY ity of 00:00: DAILY Medical Branch AMLODIPINE 2022-0 Yes [id number] 5mg TAKE 1 [facility] [place] 5 mg tablet 6-16 TABLET BY ity of 00:00: [facility] DAILY Medical Branch AMLODIPINE 2022-0 Yes [id number] 5mg TAKE 1 [facility] [place] 5 mg tablet 6-16 TABLET BY ity of 00:00: [facility] DAILY Medical Branch AMLODIPINE 2022-0 Yes [id number] 5mg TAKE 1 [place] 5 mg tablet 6-16 TABLET BY ity of 00:00: [facility] DAILY Medical Branch AMLODIPINE 2022-0 Yes [id number] 5mg TAKE 1 [place] 5 mg tablet 6-16 TABLET BY ity of 00:00: [facility] DAILY Medical Branch AMLODIPINE 2022-0 Yes [id number] 5mg TAKE 1 [place] 5 mg tablet 6-16 TABLET BY ity of 00:00: [facility] DAILY Medical Branch AMLODIPINE 2022-0 Yes [id number] 5mg TAKE 1 [facility] [place] 5 mg tablet 6-16 TABLET BY ity of 00:00: [facility] DAILY Medical Branch AMLODIPINE 2022-0 Yes [id number] 5mg TAKE 1 [place] 5 mg tablet 6-16 TABLET BY ity of 00:00: [facility] DAILY Medical Branch AMLODIPINE 2022-0 Yes [id number] 5mg TAKE 1 [place] 5 mg tablet 6-16 TABLET BY ity of 00:00: [facility] DAILY Medical Branch AMLODIPINE 2022-0 Yes [id number] 5mg TAKE 1 [place] 5 mg tablet 6-16 TABLET BY ity of 00:00: [facility] DAILY Medical Branch AMLODIPINE 2022-0 Yes [id number] 5mg TAKE 1 [place] 5 mg tablet 6-16 TABLET BY ity of 00:00: DAILY Medical Branch AMLODIPINE 2022-0 Yes [id number] 5mg TAKE 1 [place] 5 mg tablet 6-16 TABLET BY ity of 00:00: DAILY Medical Branch AMLODIPINE 2022-0 Yes [id number] 5mg TAKE 1 [place] 5 mg tablet 6-16 TABLET BY ity of 00:00: DAILY Medical Branch AMLODIPINE 2022-0 Yes [id number] 5mg TAKE 1 [place] 5 mg tablet 6-16 TABLET BY ity of 00:00: DAILY Medical Branch AMLODIPINE 2022-0 Yes [id number] 5mg TAKE 1 [place] 5 mg tablet 6-16 TABLET BY ity of 00:00: DAILY Medical Branch AMLODIPINE 2022-0 Yes [id number] 5mg TAKE 1 [place] 5 mg tablet 6-16 TABLET BY ity of 00:00: DAILY Medical Branch AMLODIPINE 2022-0 Yes [id number] 5mg TAKE 1 [place] 5 mg tablet 6-16 TABLET BY ity of 00:00: DAILY Medical Branch AMLODIPINE 2022-0 Yes [id number] 5mg TAKE 1 [place] 5 mg tablet 6-16 TABLET BY ity of 00:00: DAILY Medical Branch AMLODIPINE 2022-0 Yes [id number] 5mg TAKE 1 [facility] [place] 5 mg tablet 6-16 TABLET BY ity of 00:00: DAILY Medical Branch AMLODIPINE 2022-0 Yes [id number] 5mg TAKE 1 [facility] [place] 5 mg tablet 6-16 TABLET BY ity of 00:00: DAILY Medical Branch AMLODIPINE 2022-0 Yes [id number] 5mg TAKE 1 [facility] [place] 5 mg tablet 6-16 TABLET BY ity of 00:00: DAILY Medical Branch AMLODIPINE 2022-0 Yes [id number] 5mg TAKE 1 [facility] [place] 5 mg tablet 6-16 TABLET BY ity of 00:00: [facility] DAILY Medical Branch AMLODIPINE 2022-0 Yes [id number] 5mg TAKE 1 [place] 5 mg tablet 6-16 TABLET BY ity of 00:00: DAILY Medical Branch AMLODIPINE 2022-0 Yes [id number] 5mg TAKE 1 [facility] [place] 5 mg tablet 6-16 TABLET BY ity of 00:00: DAILY Medical Branch AMLODIPINE 2022-0 Yes [id number] 5mg TAKE 1 [facility] [place] 5 mg tablet 6-16 TABLET BY ity of 00:00: [facility] DAILY Medical Branch AMLODIPINE 2022-0 Yes [id number] 5mg TAKE 1 [place] 5 mg tablet 6-16 TABLET BY ity of 00:00: DAILY Medical Branch AMLODIPINE 2022-0 Yes [id number] 5mg TAKE 1 [facility] [place] 5 mg tablet 6-16 TABLET BY ity of 00:00: DAILY Medical Branch AMLODIPINE 2022-0 Yes [id number] 5mg TAKE 1 [facility] [place] 5 mg tablet 6-16 TABLET BY ity of 00:00: [facility] DAILY Medical Branch AMLODIPINE 2022-0 Yes [id number] 5mg TAKE 1 [place] 5 mg tablet 6-16 TABLET BY ity of 00:00: [facility] DAILY Medical Branch AMLODIPINE 2022-0 Yes [id number] 5mg TAKE 1 [place] 5 mg tablet 6-16 TABLET BY ity of 00:00: [facility] DAILY Medical Branch AMLODIPINE 2022-0 Yes [id number] 5mg TAKE 1 [place] 5 mg tablet 6-16 TABLET BY ity of 00:00: [facility] DAILY Medical Branch AMLODIPINE 2022-0 Yes [id number] 5mg TAKE 1 [place] 5 mg tablet 6-16 TABLET BY ity of 00:00: [facility] DAILY Medical Branch AMLODIPINE 2022-0 Yes [id number] 5mg TAKE 1 [facility] [place] 5 mg tablet 6-16 TABLET BY ity of 00:00: [facility] DAILY Medical Branch AMLODIPINE 2022-0 Yes [id number] 5mg TAKE 1 [facility] [place] 5 mg tablet 6-16 TABLET BY ity of 00:00: [facility] DAILY Medical Branch AMLODIPINE 2022-0 Yes [id number] 5mg TAKE 1 [facility] [place] 5 mg tablet 6-16 TABLET BY ity of 00:00: [facility] DAILY Medical Branch AMLODIPINE 2022-0 Yes [id number] 5mg TAKE 1 [place] 5 mg tablet 6-16 TABLET BY ity of 00:00: [facility] DAILY Medical Branch AMLODIPINE 2022-0 Yes [id number] 5mg TAKE 1 [place] 5 mg tablet 6-16 TABLET BY ity of 00:00: [facility] DAILY Medical Branch AMLODIPINE 2022-0 Yes [id number] 5mg TAKE 1 [facility] [place] 5 mg tablet 6-16 TABLET BY ity of 00:00: [facility] DAILY Medical Branch AMLODIPINE 2-0 Yes [id number] 5mg TAKE 1 [facility] [place] 5 mg tablet 6-16 TABLET BY ity of 00:00: [facility] DAILY Medical Branch AMLODIPINE 2-0 Yes [id number] 5mg TAKE 1 [facility] [place] 5 mg tablet 6-16 TABLET BY ity of 00:00: [facility] DAILY Medical Branch AMLODIPINE 2-0 Yes [id number] 5mg TAKE 1 [facility] [place] 5 mg tablet 6-16 TABLET BY ity of 00:00: [facility] DAILY Medical Branch AMLODIPINE 2-0 Yes [id number] 5mg TAKE 1 [facility] [place] 5 mg tablet 6-16 TABLET BY ity of 00:00: [facility] DAILY Medical Branch AMLODIPINE 2-0 Yes [id number] 5mg TAKE 1 [facility] [place] 5 mg tablet 6-16 TABLET BY ity of 00:00: [facility] DAILY Medical Branch AMLODIPINE 2-0 Yes [id number] 5mg TAKE 1 [facility] [place] 5 mg tablet 6-16 TABLET BY ity of 00:00: [facility] DAILY Medical Branch AMLODIPINE 2-0 Yes [id number] 5mg TAKE 1 [facility] [place] 5 mg tablet 6-16 TABLET BY ity of 00:00: [facility] DAILY Medical Branch AMLODIPINE 2-0 Yes [id number] 5mg TAKE 1 [facility] [place] 5 mg tablet 6-16 TABLET BY ity of 00:00: [facility] DAILY Medical Branch AMLODIPINE 2-0 3- No [id number] 5mg TAKE 1 U nivers 5 mg tablet 6-16 04-05 TABLET BY it y of 00:00: 00:00 [facility] 00 :00 DAILY Medical Branch TAMSULOSIN 2-0 2- No [id number] .4mg TAKE 1 [facility] 0.4 mg 24 6-16 09-15 CAPSULE BY ity of hr capsule 00:00: 00:00 [facility] 00 : DAILY Medical Branch fluocinonid 2021-0 Yes [id number] Apply to Univers e 0.05 % 5-20 area(s) 2 ity of cream 00:00: (two) [place] 00 times Medical daily. Branch fluocinonid 2021-0 Yes [id number] Apply to Univers e 0.05 % 5-20 area(s) 2 ity of cream 00:00: (two) [place] 00 times Medical daily. Branch fluocinonid 2022-0 Yes [id number] Apply to Univers e 0.05 % 5-20 area(s) 2 ity of cream 00:00: (two) [place] 00 times Medical daily. Branch fluocinonid 2022-0 Yes [id number] Apply to Univers e 0.05 % 5-20 area(s) 2 ity of cream 00:00: (two) [place] 00 times Medical daily. Branch fluocinonid 2022-0 Yes [id number] Apply to Univers e 0.05 % 5-20 area(s) 2 ity of cream 00:00: (two) [place] 00 times Medical daily. [facility] fluocinonid 2022-0 Yes [id number] [facility] to [facility] 0.05 % 5-20 area(s) 2 ity of cream 00:00: (two) [place] 00 times Medical daily. [facility] fluocinonid 2022-0 Yes [id number] [facility] to [facility] 0.05 % 5-20 area(s) 2 ity of cream 00:00: (two) [place] 00 times Medical daily. [facility] fluocinonid 2022-0 Yes [id number] Apply to [facility] 0.05 % 5-20 area(s) 2 ity of cream 00:00: (two) [place] 00 times Medical daily. [facility] fluocinonid 2022-0 Yes [id number] Apply to [facility] 0.05 % 5-20 area(s) 2 ity of cream 00:00: (two) [place] 00 times Medical daily. [facility] fluocinonid 2022-0 Yes [id number] Apply to [facility] 0.05 % 5-20 area(s) 2 ity of cream 00:00: (two) [place] 00 times Medical daily. [facility] fluocinonid 2022-0 Yes [id number] Apply to [facility] 0.05 % 5-20 area(s) 2 ity of cream 00:00: (two) [place] 00 times Medical daily. [facility] fluocinonid 2022-0 Yes [id number] Apply to [facility] 0.05 % 5-20 area(s) 2 ity of cream 00:00: (two) [place] 00 times Medical daily. [facility] fluocinonid 2022-0 Yes [id number] Apply to [facility] 0.05 % 5-20 area(s) 2 ity of cream 00:00: (two) [place] 00 times Medical daily. [facility] fluocinonid 2022-0 Yes [id number] Apply to [facility] 0.05 % 5-20 area(s) 2 ity of cream 00:00: (two) [place] 00 times Medical daily. [facility] fluocinonid 2022-0 Yes [id number] Apply to [facility] 0.05 % 5-20 area(s) 2 ity of cream 00:00: (two) [place] 00 times Medical daily. [facility] fluocinonid 2022-0 Yes [id number] Apply to [facility] 0.05 % 5-20 area(s) 2 ity of cream 00:00: (two) [place] 00 times Medical daily. [facility] fluocinonid 2022-0 Yes [id number] Apply to [facility] 0.05 % 5-20 area(s) 2 ity of cream 00:00: (two) [place] 00 times Medical daily. [facility] fluocinonid 2022-0 Yes [id number] Apply to [facility] 0.05 % 5-20 area(s) 2 ity of cream 00:00: (two) [place] 00 times Medical daily. [facility] fluocinonid 2022-0 Yes [id number] Apply to [facility] 0.05 % 5-20 area(s) 2 ity of cream 00:00: (two) [place] 00 times Medical daily. [facility] fluocinonid 2022-0 Yes [id number] Apply to [facility] 0.05 % 5-20 area(s) 2 ity of cream 00:00: (two) [place] 00 times Medical daily. [facility] fluocinonid 2022-0 Yes [id number] Apply to [facility] 0.05 % 5-20 area(s) 2 ity of cream 00:00: (two) [place] 00 times Medical daily. [facility] fluocinonid 2022-0 Yes [id number] Apply to [facility] 0.05 % 5-20 area(s) 2 ity of cream 00:00: (two) [place] 00 times Medical daily. [facility] fluocinonid 2022-0 Yes [id number] Apply to [facility] 0.05 % 5-20 area(s) 2 ity of cream 00:00: (two) [place] 00 times Medical daily. [facility] fluocinonid 2022-0 Yes [id number] Apply to [facility] 0.05 % 5-20 area(s) 2 ity of cream 00:00: (two) [place] 00 times Medical daily. [facility] fluocinonid 2022-0 Yes [id number] Apply to [facility] 0.05 % 5-20 area(s) 2 ity of cream 00:00: (two) [place] 00 times Medical daily. [facility] fluocinonid 2022-0 Yes [id number] Apply to [facility] 0.05 % 5-20 area(s) 2 ity of cream 00:00: (two) [place] 00 times Medical daily. [facility] fluocinonid 2022-0 Yes [id number] Apply to [facility] 0.05 % 5-20 area(s) 2 ity of cream 00:00: (two) [place] 00 times Medical daily. [facility] fluocinonid 2022-0 Yes [id number] Apply to [facility] 0.05 % 5-20 area(s) 2 ity of cream 00:00: (two) [place] 00 times Medical daily. [facility] fluocinonid 2022-0 Yes [id number] Apply to [facility] 0.05 % 5-20 area(s) 2 ity of cream 00:00: (two) [place] 00 times Medical daily. [facility] fluocinonid 2022-0 Yes [id number] Apply to [facility] 0.05 % 5-20 area(s) 2 ity of cream 00:00: (two) [place] 00 times Medical daily. [facility] fluocinonid 2022-0 Yes [id number] Apply to [facility] 0.05 % 5-20 area(s) 2 ity of cream 00:00: (two) [place] 00 times Medical daily. [facility] fluocinonid 2022-0 Yes [id number] Apply to [facility] 0.05 % 5-20 area(s) 2 ity of cream 00:00: (two) [place] 00 times Medical daily. [facility] fluocinonid 2022-0 Yes [id number] Apply to [facility] 0.05 % 5-20 area(s) 2 ity of cream 00:00: (two) [place] 00 times Medical daily. [facility] fluocinonid 2022-0 Yes [id number] Apply to [facility] 0.05 % 5-20 area(s) 2 ity of cream 00:00: (two) [place] 00 times Medical daily. [facility] fluocinonid 2022-0 Yes [id number] Apply to [facility] 0.05 % 5-20 area(s) 2 ity of cream 00:00: (two) [place] 00 times Medical daily. [facility] fluocinonid 2022-0 Yes [id number] Apply to [facility] 0.05 % 5-20 area(s) 2 ity of cream 00:00: (two) [place] 00 times Medical daily. [facility] fluocinonid 2022-0 Yes [id number] Apply to [facility] 0.05 % 5-20 area(s) 2 ity of cream 00:00: (two) [place] 00 times Medical daily. [facility] fluocinonid 2022-0 Yes [id number] Apply to [facility] 0.05 % 5-20 area(s) 2 ity of cream 00:00: (two) [place] 00 times Medical daily. [facility] fluocinonid 2022-0 Yes [id number] Apply to [facility] 0.05 % 5-20 area(s) 2 ity of cream 00:00: (two) [place] 00 times Medical daily. [facility] fluocinonid 2022-0 Yes [id number] Apply to [facility] 0.05 % 5-20 area(s) 2 ity of cream 00:00: (two) [place] 00 times Medical daily. [facility] fluocinonid 2022-0 Yes [id number] Apply to [facility] 0.05 % 5-20 area(s) 2 ity of cream 00:00: (two) [place] 00 times Medical daily. [facility] fluocinonid 2022-0 Yes [id number] Apply to [facility] 0.05 % 5-20 area(s) 2 ity of cream 00:00: (two) [place] 00 times Medical daily. [facility] fluocinonid 2022-0 Yes [id number] Apply to [facility] 0.05 % 5-20 area(s) 2 ity of cream 00:00: (two) [place] 00 times Medical daily. [facility] fluocinonid 2022-0 Yes [id number] Apply to [facility] 0.05 % 5-20 area(s) 2 ity of cream 00:00: (two) [place] 00 times Medical daily. [facility] fluocinonid 2022-0 Yes [id number] Apply to [facility] 0.05 % 5-20 area(s) 2 ity of cream 00:00: (two) [place] 00 times Medical daily. [facility] fluocinonid 2022-0 Yes [id number] Apply to [facility] 0.05 % 5-20 area(s) 2 ity of cream 00:00: (two) [place] 00 times Medical daily. [facility] fluocinonid 2022-0 Yes [id number] Apply to [facility] 0.05 % 5-20 area(s) 2 ity of cream 00:00: (two) [place] 00 times Medical daily. [facility] fluocinonid 2022-0 Yes [id number] Apply to [facility] 0.05 % 5-20 area(s) 2 ity of cream 00:00: (two) [place] 00 times Medical daily. [facility] fluocinonid 2022-0 Yes [id number] Apply to [facility] 0.05 % 5-20 area(s) 2 ity of cream 00:00: (two) [place] 00 times Medical daily. [facility] fluocinonid 2-0 Yes [id number] Apply to [facility] 0.05 % 5-20 area(s) 2 ity of cream 00:00: (two) [place] 00 times Medical daily. [facility] fluocinonid 2022-0 Yes [id number] Apply to [facility] 0.05 % 5-20 area(s) 2 ity of cream 00:00: (two) [place] 00 times Medical daily. [facility] fluocinonid 2022-0 Yes [id number] Apply to [facility] 0.05 % 5-20 area(s) 2 ity of cream 00:00: (two) [place] 00 times Medical daily. [facility] fluocinonid 2022-0 Yes [id number] Apply to [facility] 0.05 % 5-20 area(s) 2 ity of cream 00:00: (two) [place] 00 times Medical daily. [facility] fluocinonid 2022-0 Yes [id number] Apply to [facility] 0.05 % 5-20 area(s) 2 ity of cream 00:00: (two) [place] 00 times Medical daily. [facility] fluocinonid 2022-0 Yes [id number] Apply to [facility] 0.05 % 5-20 area(s) 2 ity of cream 00:00: (two) [place] 00 times Medical daily. [facility] fluocinonid 2022-0 Yes [id number] Apply to [facility] 0.05 % 5-20 area(s) 2 ity of cream 00:00: (two) [place] 00 times Medical daily. [facility] fluocinonid 2022-0 Yes [id number] Apply to [facility] 0.05 % 5-20 area(s) 2 ity of cream 00:00: (two) [place] 00 times Medical daily. [facility] fluocinonid 2022-0 Yes [id number] Apply to [facility] 0.05 % 5-20 area(s) 2 ity of cream 00:00: (two) [place] 00 times Medical daily. [facility] fluocinonid 2022-0 Yes [id number] Apply to [facility] 0.05 % 5-20 area(s) 2 ity of cream 00:00: (two) [place] 00 times Medical daily. [facility] fluocinonid 2022-0 Yes [id number] Apply to [facility] 0.05 % 5-20 area(s) 2 ity of cream 00:00: (two) [place] 00 times Medical daily. [facility] fluocinonid 2022-0 Yes [id number] Apply to [facility] 0.05 % 5-20 area(s) 2 ity of cream 00:00: (two) [place] 00 times Medical daily. [facility] fluocinonid 2022-0 Yes [id number] Apply to [facility] 0.05 % 5-20 area(s) 2 ity of cream 00:00: (two) [place] 00 times Medical daily. [facility] fluocinonid 2022-0 Yes [id number] Apply to [facility] 0.05 % 5-20 area(s) 2 ity of cream 00:00: (two) [place] 00 times Medical daily. [facility] fluocinonid 2022-0 Yes [id number] Apply to [facility] 0.05 % 5-20 area(s) 2 ity of cream 00:00: (two) [place] 00 times Medical daily. [facility] fluocinonid 2022-0 Yes [id number] Apply to [facility] 0.05 % 5-20 area(s) 2 ity of cream 00:00: (two) [place] 00 times Medical daily. [facility] fluocinonid 2022-0 Yes [id number] Apply to [facility] 0.05 % 5-20 area(s) 2 ity of cream 00:00: (two) [place] 00 times Medical daily. [facility] fluocinonid 2-0 Yes [id number] Apply to [facility] 0.05 % 5-20 area(s) 2 ity of cream 00:00: (two) [place] 00 times Medical daily. [facility] fluocinonid 2022-0 Yes [id number] Apply to [facility] 0.05 % 5-20 area(s) 2 ity of cream 00:00: (two) [place] 00 times Medical daily. [facility] fluocinonid 2022-0 Yes [id number] Apply to [facility] 0.05 % 5-20 area(s) 2 ity of cream 00:00: (two) [place] 00 times Medical daily. [facility] fluocinonid 2-0 Yes [id number] Apply to [facility] 0.05 % 5-20 area(s) 2 ity of cream 00:00: (two) [place] 00 times Medical daily. [facility] fluocinonid 2-0 Yes [id number] Apply to [facility] 0.05 % 5-20 area(s) 2 ity of cream 00:00: (two) [place] 00 times Medical daily. [facility] fluocinonid 2-0 Yes [id number] Apply to [facility] 0.05 % 5-20 area(s) 2 ity of cream 00:00: (two) [place] 00 times Medical daily. [facility] fluocinonid 2022-0 Yes [id number] Apply to [facility] 0.05 % 5-20 area(s) 2 ity of cream 00:00: (two) [place] 00 times Medical daily. [facility] fluocinonid 2022-0 Yes [id number] Apply to [facility] 0.05 % 5-20 area(s) 2 ity of cream 00:00: (two) [place] 00 times Medical daily. [facility] fluocinonid 2022-0 Yes [id number] Apply to [facility] 0.05 % 5-20 area(s) 2 ity of cream 00:00: (two) [place] 00 times Medical daily. [facility] fluocinonid 2022-0 Yes [id number] Apply to [facility] 0.05 % 5-20 area(s) 2 ity of cream 00:00: (two) [place] 00 times Medical daily. [facility] fluocinonid 2022-0 Yes [id number] Apply to [facility] 0.05 % 5-20 area(s) 2 ity of cream 00:00: (two) [place] 00 times Medical daily. [facility] fluocinonid 2022-0 Yes [id number] Apply to [facility] 0.05 % 5-20 area(s) 2 ity of cream 00:00: (two) [place] 00 times Medical daily. [facility] fluocinonid 2022-0 Yes [id number] Apply to [facility] 0.05 % 5-20 area(s) 2 ity of cream 00:00: (two) [place] 00 times Medical daily. [facility] fluocinonid 2022-0 Yes [id number] Apply to [facility] 0.05 % 5-20 area(s) 2 ity of cream 00:00: (two) [place] 00 times Medical daily. [facility] fluocinonid 2022-0 Yes [id number] Apply to [facility] 0.05 % 5-20 area(s) 2 ity of cream 00:00: (two) [place] 00 times Medical daily. [facility] fluocinonid 2022-0 Yes [id number] Apply to [facility] 0.05 % 5-20 area(s) 2 ity of cream 00:00: (two) [place] 00 times Medical daily. [facility] fluocinonid 2022-0 Yes [id number] Apply to [facility] 0.05 % 5-20 area(s) 2 ity of cream 00:00: (two) [place] 00 times Medical daily. [facility] fluocinonid 2022-0 Yes [id number] Apply to [facility] 0.05 % 5-20 area(s) 2 ity of cream 00:00: (two) [place] 00 times Medical daily. [facility] fluocinonid 2022-0 Yes [id number] Apply to [facility] 0.05 % 5-20 area(s) 2 ity of cream 00:00: (two) [place] 00 times Medical daily. [facility] fluocinonid 2022-0 Yes [id number] Apply to [facility] 0.05 % 5-20 area(s) 2 ity of cream 00:00: (two) [place] 00 times Medical daily. [facility] fluocinonid 2022-0 Yes [id number] Apply to [facility] 0.05 % 5-20 area(s) 2 ity of cream 00:00: (two) [place] 00 times Medical daily. [facility] fluocinonid 2022-0 Yes [id number] Apply to [facility] 0.05 % 5-20 area(s) 2 ity of cream 00:00: (two) [place] 00 times Medical daily. [facility] fluocinonid 2022-0 Yes [id number] Apply to [facility] 0.05 % 5-20 area(s) 2 ity of cream 00:00: (two) [place] 00 times Medical daily. [facility] fluocinonid 2022-0 Yes [id number] Apply to [facility] 0.05 % 5-20 area(s) 2 ity of cream 00:00: (two) [place] 00 times Medical daily. [facility] fluocinonid 2022-0 Yes [id number] Apply to [facility] 0.05 % 5-20 area(s) 2 ity of cream 00:00: (two) [place] 00 times Medical daily. [facility] fluocinonid 2022-0 Yes [id number] Apply to [facility] 0.05 % 5-20 area(s) 2 ity of cream 00:00: (two) [place] 00 times Medical daily. [facility] fluocinonid 2022-0 Yes [id number] Apply to [facility] 0.05 % 5-20 area(s) 2 ity of cream 00:00: (two) [place] 00 times Medical daily. [facility] fluocinonid 2022-0 Yes [id number] Apply to [facility] 0.05 % 5-20 area(s) 2 ity of cream 00:00: (two) [place] 00 times Medical daily. [facility] fluocinonid 2022-0 Yes [id number] Apply to [facility] 0.05 % 5-20 area(s) 2 ity of cream 00:00: (two) [place] 00 times Medical daily. [facility] fluocinonid 2022-0 Yes [id number] Apply to [facility] 0.05 % 5-20 area(s) 2 ity of cream 00:00: (two) [place] 00 times Medical daily. [facility] fluocinonid 2022-0 Yes [id number] Apply to [facility] 0.05 % 5-20 area(s) 2 ity of cream 00:00: (two) [place] 00 times Medical daily. [facility] fluocinonid 2022-0 Yes [id number] Apply to [facility] 0.05 % 5-20 area(s) 2 ity of cream 00:00: (two) [place] 00 times Medical daily. [facility] fluocinonid 2022-0 Yes [id number] Apply to [facility] 0.05 % 5-20 area(s) 2 ity of cream 00:00: (two) [place] 00 times Medical daily. [facility] fluocinonid 2022-0 Yes [id number] Apply to [facility] 0.05 % 5-20 area(s) 2 ity of cream 00:00: (two) [place] 00 times Medical daily. [facility] fluocinonid 2022-0 Yes [id number] Apply to [facility] 0.05 % 5-20 area(s) 2 ity of cream 00:00: (two) [place] 00 times Medical daily. [facility] fluocinonid 2022-0 Yes [id number] Apply to [facility] 0.05 % 5-20 area(s) 2 ity of cream 00:00: (two) [place] 00 times Medical daily. [facility] fluocinonid 2-0 Yes [id number] Apply to [facility] 0.05 % 5-20 area(s) 2 ity of cream 00:00: (two) [place] 00 times Medical daily. [facility] fluocinonid 2-0 Yes [id number] Apply to [facility] 0.05 % 5-20 area(s) 2 ity of cream 00:00: (two) [place] 00 times Medical daily. [facility] fluocinonid 2022-0 Yes [id number] Apply to [facility] 0.05 % 5-20 area(s) 2 ity of cream 00:00: (two) [place] 00 times Medical daily. [facility] fluocinonid 2022-0 Yes [id number] Apply to [facility] 0.05 % 5-20 area(s) 2 ity of cream 00:00: (two) [place] 00 times Medical daily. [facility] fluocinonid 2022-0 Yes [id number] Apply to [facility] 0.05 % 5-20 area(s) 2 ity of cream 00:00: (two) [place] 00 times Medical daily. [facility] fluocinonid 2022-0 Yes [id number] Apply to [facility] 0.05 % 5-20 area(s) 2 ity of cream 00:00: (two) [place] 00 times Medical daily. [facility] fluocinonid 2022-0 Yes [id number] Apply to [facility] 0.05 % 5-20 area(s) 2 ity of cream 00:00: (two) [place] 00 times Medical daily. [facility] fluocinonid 2022-0 Yes [id number] Apply to [facility] 0.05 % 5-20 area(s) 2 ity of cream 00:00: (two) [place] 00 times Medical daily. [facility] fluocinonid 2022-0 Yes [id number] Apply to [facility] 0.05 % 5-20 area(s) 2 ity of cream 00:00: (two) [place] 00 times Medical daily. [facility] fluocinonid 2022-0 Yes [id number] Apply to [facility] 0.05 % 5-20 area(s) 2 ity of cream 00:00: (two) [place] 00 times Medical daily. [facility] fluocinonid 2022-0 Yes [id number] Apply to [facility] 0.05 % 5-20 area(s) 2 ity of cream 00:00: (two) [place] 00 times Medical daily. [facility] fluocinonid 2022-0 Yes [id number] Apply to [facility] 0.05 % 5-20 area(s) 2 ity of cream 00:00: (two) [place] 00 times Medical daily. [facility] fluocinonid 2022-0 Yes [id number] Apply to [facility] 0.05 % 5-20 area(s) 2 ity of cream 00:00: (two) [place] 00 times Medical daily. [facility] fluocinonid 2022-0 Yes [id number] Apply to [facility] 0.05 % 5-20 area(s) 2 ity of cream 00:00: (two) [place] 00 times Medical daily. [facility] fluocinonid 2022-0 Yes [id number] Apply to [facility] 0.05 % 5-20 area(s) 2 ity of cream 00:00: (two) [place] 00 times Medical daily. [facility] fluocinonid 2022-0 Yes [id number] Apply to [facility] 0.05 % 5-20 area(s) 2 ity of cream 00:00: (two) [place] 00 times Medical daily. [facility] fluocinonid 2022-0 Yes [id number] Apply to [facility] 0.05 % 5-20 area(s) 2 ity of cream 00:00: (two) [place] 00 times Medical daily. [facility] fluocinonid 2022-0 Yes [id number] Apply to [facility] 0.05 % 5-20 area(s) 2 ity of cream 00:00: (two) [place] 00 times Medical daily. [facility] fluocinonid 2022-0 Yes [id number] Apply to [facility] 0.05 % 5-20 area(s) 2 ity of cream 00:00: (two) [place] 00 times Medical daily. [facility] fluocinonid 2022-0 Yes [id number] Apply to [facility] 0.05 % 5-20 area(s) 2 ity of cream 00:00: (two) [place] 00 times Medical daily. [facility] fluocinonid 2022-0 Yes [id number] Apply to [facility] 0.05 % 5-20 area(s) 2 ity of cream 00:00: (two) [place] 00 times Medical daily. [facility] fluocinonid 2022-0 Yes [id number] Apply to [facility] 0.05 % 5-20 area(s) 2 ity of cream 00:00: (two) [place] 00 times Medical daily. [facility] fluocinonid 2022-0 Yes [id number] Apply to [facility] 0.05 % 5-20 area(s) 2 ity of cream 00:00: (two) [place] 00 times Medical daily. [facility] fluocinonid 2022-0 Yes [id number] Apply to [facility] 0.05 % 5-20 area(s) 2 ity of cream 00:00: (two) [place] 00 times Medical daily. [facility] fluocinonid 2022-0 Yes [id number] Apply to [facility] 0.05 % 5-20 area(s) 2 ity of cream 00:00: (two) [place] 00 times Medical daily. [facility] fluocinonid 2022-0 Yes [id number] Apply to [facility] 0.05 % 5-20 area(s) 2 ity of cream 00:00: (two) [place] 00 times Medical daily. [facility] fluocinonid 2022-0 Yes [id number] Apply to [facility] 0.05 % 5-20 area(s) 2 ity of cream 00:00: (two) [place] 00 times Medical daily. [facility] fluocinonid 2022-0 Yes [id number] Apply to [facility] 0.05 % 5-20 area(s) 2 ity of cream 00:00: (two) [place] 00 times Medical daily. [facility] fluocinonid 2022-0 Yes [id number] Apply to [facility] 0.05 % 5-20 area(s) 2 ity of cream 00:00: (two) [place] 00 times Medical daily. [facility] fluocinonid 2022-0 Yes [id number] Apply to [facility] 0.05 % 5-20 area(s) 2 ity of cream 00:00: (two) [place] 00 times Medical daily. [facility] fluocinonid 2022-0 Yes [id number] Apply to [facility] 0.05 % 5-20 area(s) 2 ity of cream 00:00: (two) [place] 00 times Medical daily. [facility] fluocinonid 2022-0 Yes [id number] Apply to [facility] 0.05 % 5-20 area(s) 2 ity of cream 00:00: (two) [place] 00 times Medical daily. [facility] fluocinonid 2022-0 Yes [id number] Apply to [facility] 0.05 % 5-20 area(s) 2 ity of cream 00:00: (two) [place] 00 times Medical daily. [facility] fluocinonid 2022-0 Yes [id number] Apply to [facility] 0.05 % 5-20 area(s) 2 ity of cream 00:00: (two) [place] 00 times Medical daily. [facility] fluocinonid 2022-0 Yes [id number] Apply to [facility] 0.05 % 5-20 area(s) 2 ity of cream 00:00: (two) [place] 00 times Medical daily. [facility] fluocinonid 2022-0 Yes [id number] Apply to [facility] 0.05 % 5-20 area(s) 2 ity of cream 00:00: (two) [place] 00 times Medical daily. [facility] fluocinonid 2022-0 Yes [id number] Apply to [facility] 0.05 % 5-20 area(s) 2 ity of cream 00:00: (two) [place] 00 times Medical daily. [facility] fluocinonid 2022-0 Yes [id number] Apply to [facility] 0.05 % 5-20 area(s) 2 ity of cream 00:00: (two) [place] 00 times Medical daily. [facility] fluocinonid 2022-0 Yes [id number] Apply to [facility] 0.05 % 5-20 area(s) 2 ity of cream 00:00: (two) [place] 00 times Medical daily. [facility] fluocinonid 2022-0 Yes [id number] Apply to [facility] 0.05 % 5-20 area(s) 2 ity of cream 00:00: (two) [place] 00 times Medical daily. [facility] fluocinonid 2022-0 Yes [id number] Apply to [facility] 0.05 % 5-20 area(s) 2 ity of cream 00:00: (two) [place] 00 times Medical daily. [facility] fluocinonid 2022-0 Yes [id number] Apply to [facility] 0.05 % 5-20 area(s) 2 ity of cream 00:00: (two) [place] 00 times Medical daily. [facility] fluocinonid 2022-0 Yes [id number] Apply to [facility] 0.05 % 5-20 area(s) 2 ity of cream 00:00: (two) [place] 00 times Medical daily. [facility] fluocinonid 2022-0 Yes [id number] Apply to [facility] 0.05 % 5-20 area(s) 2 ity of cream 00:00: (two) [place] 00 times Medical daily. [facility] fluocinonid 2022-0 Yes [id number] Apply to [facility] 0.05 % 5-20 area(s) 2 ity of cream 00:00: (two) [place] 00 times Medical daily. [facility] fluocinonid 2022-0 Yes [id number] Apply to [facility] 0.05 % 5-20 area(s) 2 ity of cream 00:00: (two) [place] 00 times Medical daily. [facility] fluocinonid 2022-0 Yes [id number] Apply to [facility] 0.05 % 5-20 area(s) 2 ity of cream 00:00: (two) [place] 00 times Medical daily. [facility] fluocinonid 2022-0 Yes [id number] Apply to [facility] 0.05 % 5-20 area(s) 2 ity of cream 00:00: (two) [place] 00 times Medical daily. [facility] fluocinonid 2022-0 Yes [id number] Apply to [facility] 0.05 % 5-20 area(s) 2 ity of cream 00:00: (two) [place] 00 times Medical daily. [facility] fluocinonid 2022-0 Yes [id number] Apply to [facility] 0.05 % 5-20 area(s) 2 ity of cream 00:00: (two) [place] 00 times Medical daily. [facility] fluocinonid 2022-0 Yes [id number] Apply to [facility] 0.05 % 5-20 area(s) 2 ity of cream 00:00: (two) [place] 00 times Medical daily. [facility] fluocinonid 2022-0 Yes [id number] Apply to [facility] 0.05 % 5-20 area(s) 2 ity of cream 00:00: (two) [place] 00 times Medical daily. [facility] fluocinonid 2-0 Yes [id number] Apply to [facility] 0.05 % 5-20 area(s) 2 ity of cream 00:00: (two) [place] 00 times Medical daily. [facility] fluocinonid 2-0 Yes [id number] Apply to [facility] 0.05 % 5-20 area(s) 2 ity of cream 00:00: (two) [place] 00 times Medical daily. [facility] fluocinonid 2-0 Yes [id number] Apply to [facility] 0.05 % 5-20 area(s) 2 ity of cream 00:00: (two) [place] 00 times Medical daily. [facility] fluocinonid 2022-0 Yes [id number] Apply to [facility] 0.05 % 5-20 area(s) 2 ity of cream 00:00: (two) [place] 00 times Medical daily. [facility] fluocinonid 2022-0 Yes [id number] Apply to [facility] 0.05 % 5-20 area(s) 2 ity of cream 00:00: (two) [place] 00 times Medical daily. [facility] fluocinonid 2022-0 Yes [id number] Apply to [facility] 0.05 % 5-20 area(s) 2 ity of cream 00:00: (two) [place] 00 times Medical daily. [facility] fluocinonid 2022-0 Yes [id number] Apply to [facility] 0.05 % 5-20 area(s) 2 ity of cream 00:00: (two) [place] 00 times Medical daily. [facility] fluocinonid 2022-0 Yes [id number] Apply to [facility] 0.05 % 5-20 area(s) 2 ity of cream 00:00: (two) [place] 00 times Medical daily. [facility] fluocinonid 2-0 Yes [id number] Apply to [facility] 0.05 % 5-20 area(s) 2 ity of cream 00:00: (two) [place] 00 times Medical daily. [facility] fluocinonid 2-0 Yes [id number] Apply to [facility] 0.05 % 5-20 area(s) 2 ity of cream 00:00: (two) [place] 00 times Medical daily. [facility] fluocinonid 2-0 Yes [id number] Apply to [facility] 0.05 % 5-20 area(s) 2 ity of cream 00:00: (two) [place] 00 times Medical daily. [facility] fluocinonid 2-0 Yes [id number] Apply to [facility] 0.05 % 5-20 area(s) 2 ity of cream 00:00: (two) [place] 00 times Medical daily. [facility] fluocinonid 2-0 Yes [id number] Apply to [facility] 0.05 % 5-20 area(s) 2 ity of cream 00:00: (two) [place] 00 times Medical daily. [facility] fluocinonid 2-0 Yes [id number] Apply to [facility] 0.05 % 5-20 area(s) 2 ity of cream 00:00: (two) [place] 00 times Medical daily. [facility] fluocinonid 2-0 Yes [id number] Apply to [facility] 0.05 % 5-20 area(s) 2 ity of cream 00:00: (two) [place] 00 times Medical daily. [facility] mupirocin 2 2021-0 Yes [id number] Apply to [facility] % ointment 2-14 area(s) 3 ity of 00:00: (three) [place] 00 times Medical daily. [facility] mupirocin 2 2-0 Yes [id number] Apply to [facility] % ointment 2-14 area(s) 3 ity of 00:00: (three) [place] 00 times Medical daily. [facility] mupirocin 2 2-0 Yes [id number] Apply to [facility] % ointment 2-14 area(s) 3 ity of 00:00: (three) [place] 00 times Medical daily. [facility] mupirocin 2 2-0 Yes [id number] Apply to [facility] % ointment 2-14 area(s) 3 ity of 00:00: (three) [place] 00 times Medical daily. [facility] mupirocin 2 2022-0 Yes [id number] Apply to [facility] % ointment 2-14 area(s) 3 ity of 00:00: (three) [place] 00 times Medical daily. [facility] mupirocin 2 2022-0 Yes [id number] Apply to [facility] % ointment 2-14 area(s) 3 ity of 00:00: (three) [place] 00 times Medical daily. [facility] mupirocin 2 2022-0 Yes [id number] Apply to [facility] % ointment 2-14 area(s) 3 ity of 00:00: (three) [place] 00 times Medical daily. [facility] mupirocin 2 2-0 Yes [id number] Apply to [facility] % ointment 2-14 area(s) 3 ity of 00:00: (three) [place] 00 times Medical daily. Branch mupirocin 2 2-0 Yes [id number] Apply to [facility] % ointment 2-14 area(s) 3 ity of 00:00: (three) [place] 00 times Medical daily. Branch mupirocin 2 2-0 Yes [id number] Apply to [facility] % ointment 2-14 area(s) 3 ity of 00:00: (three) [place] 00 times Medical daily. Branch mupirocin 2 2022-0 Yes [id number] Apply to [facility] % ointment 2-14 area(s) 3 ity of 00:00: (three) [place] 00 times Medical daily. Branch mupirocin 2 2022-0 Yes [id number] Apply to [facility] area(s) 3 [facility] 00:00: (three) [place] 00 times Medical daily. [facility] mupirocin 2 2022-0 Yes [id number] Apply to [facility]ment 2-14 area(s) 3 [facility] 00:00: (three) [place] 00 times Medical daily. [facility] mupirocin 2 2022-0 Yes [id number] Apply to [facility] ointment 2-14 area(s) 3 [facility] 00:00: (three) [place] 00 times Medical daily. [facility] mupirocin 2 2022-0 Yes [id number] Apply to [facility] % ointment 2-14 area(s) 3 [facility] 00:00: (three) [place] 00 times Medical daily. [facility] mupirocin 2 2022-0 Yes [id number] Apply to [facility] % ointment 2-14 area(s) 3 [facility] 00:00: (three) [place] 00 times Medical daily. [facility] mupirocin 2 2022-0 Yes [id number] Apply to [facility] % ointment 2-14 area(s) 3 [facility] 00:00: (three) [place] 00 times Medical daily. [facility] mupirocin 2 2022-0 Yes [id number] Apply to [facility] % ointment 2-14 area(s) 3 [facility] 00:00: (three) [place] 00 times Medical daily. [facility] mupirocin 2 2022-0 Yes [id number] Apply to [facility] % ointment 2-14 area(s) 3 [facility] 00:00: (three) [place] 00 times Medical daily. [facility] mupirocin 2 2022-0 Yes [id number] Apply to [facility] % ointment 2-14 area(s) 3 [facility] 00:00: (three) [place] 00 times Medical daily. [facility] mupirocin 2 2022-0 Yes [id number] Apply to [facility] % ointment 2-14 area(s) 3 [facility] 00:00: (three) [place] 00 times Medical daily. [facility] mupirocin 2 2022-0 Yes [id number] Apply to [facility] % ointment 2-14 area(s) 3 [facility] 00:00: (three) [place] 00 times Medical daily. [facility] mupirocin 2 2022-0 Yes [id number] Apply to [facility] % ointment 2-14 area(s) 3 [facility] 00:00: (three) [place] 00 times Medical daily. [facility] mupirocin 2 2022-0 Yes [id number] Apply to [facility] % ointment 2-14 area(s) 3 [facility] 00:00: (three) [place] 00 times Medical daily. [facility] mupirocin 2 2022-0 Yes [id number] Apply to [facility] % ointment 2-14 area(s) 3 [facility] 00:00: (three) [place] 00 times Medical daily. [facility] mupirocin 2 2022-0 Yes [id number] Apply to [facility] % ointment 2-14 area(s) 3 [facility] 00:00: (three) [place] 00 times Medical daily. [facility] mupirocin 2 2022-0 Yes [id number] Apply to [facility] % ointment 2-14 area(s) 3 [facility] 00:00: (three) [place] 00 times Medical daily. [facility] mupirocin 2 2022-0 Yes [id number] Apply to [facility] % ointment 2-14 area(s) 3 [facility] 00:00: (three) [place] 00 times Medical daily. [facility] mupirocin 2 2022-0 Yes [id number] Apply to [facility] % ointment 2-14 area(s) 3 [facility] 00:00: (three) [place] 00 times Medical daily. [facility] mupirocin 2 2022-0 Yes [id number] Apply to [facility] % ointment 2-14 area(s) 3 [facility] 00:00: (three) [place] 00 times Medical daily. [facility] mupirocin 2 2022-0 Yes [id number] Apply to [facility] % ointment 2-14 area(s) 3 [facility] 00:00: (three) [place] 00 times Medical daily. [facility] mupirocin 2 2022-0 Yes [id number] Apply to [facility] % ointment 2-14 area(s) 3 [facility] 00:00: (three) [place] 00 times Medical daily. [facility] mupirocin 2 2022-0 Yes [id number] Apply to [facility] % ointment 2-14 area(s) 3 [facility] 00:00: (three) [place] 00 times Medical daily. [facility] mupirocin 2 2022-0 Yes [id number] Apply to [facility] % ointment 2-14 area(s) 3 [facility] 00:00: (three) [place] 00 times Medical daily. [facility] mupirocin 2 2022-0 Yes [id number] Apply to [facility] % ointment 2-14 area(s) 3 [facility] 00:00: (three) [place] 00 times Medical daily. [facility] mupirocin 2 2022-0 Yes [id number] Apply to [facility] % ointment 2-14 area(s) 3 [facility] 00:00: (three) [place] 00 times Medical daily. [facility] mupirocin 2 2022-0 Yes [id number] Apply to [facility] % ointment 2-14 area(s) 3 [facility] 00:00: (three) [place] 00 times Medical daily. [facility] mupirocin 2 2022-0 Yes [id number] Apply to [facility] % ointment 2-14 area(s) 3 [facility] 00:00: (three) [place] 00 times Medical daily. [facility] mupirocin 2 2022-0 Yes [id number] Apply to [facility] % ointment 2-14 area(s) 3 [facility] 00:00: (three) [place] 00 times Medical daily. [facility] mupirocin 2 2022-0 Yes [id number] Apply to [facility] % ointment 2-14 area(s) 3 [facility] 00:00: (three) [place] 00 times Medical daily. [facility] mupirocin 2 2-0 Yes [id number] Apply to [facility] % ointment 2-14 area(s) 3 [facility] 00:00: (three) [place] 00 times Medical daily. [facility] mupirocin 2 2-0 Yes [id number] Apply to [facility] % ointment 2-14 area(s) 3 [facility] 00:00: (three) [place] 00 times Medical daily. [facility] mupirocin 2 2-0 Yes [id number] Apply to [facility] % ointment 2-14 area(s) 3 [facility] 00:00: (three) [place] 00 times Medical daily. [facility] mupirocin 2 2022-0 Yes [id number] Apply to [facility] % ointment 2-14 area(s) 3 [facility] 00:00: (three) [place] 00 times Medical daily. [facility] mupirocin 2 2-0 Yes [id number] Apply to [facility] % ointment 2-14 area(s) 3 [facility] 00:00: (three) [place] 00 times Medical daily. [facility] mupirocin 2 2022-0 Yes [id number] Apply to [facility] % ointment 2-14 area(s) 3 [facility] 00:00: (three) [place] 00 times Medical daily. [facility] mupirocin 2 2022-0 Yes [id number] Apply to [facility] % ointment 2-14 area(s) 3 [facility] 00:00: (three) [place] 00 times Medical daily. [facility] mupirocin 2 2022-0 Yes [id number] Apply to [facility] % ointment 2-14 area(s) 3 [facility] 00:00: (three) [place] 00 times Medical daily. [facility] mupirocin 2 2022-0 Yes [id number] Apply to [facility] % ointment 2-14 area(s) 3 [facility] 00:00: (three) [place] 00 times Medical daily. [facility] mupirocin 2 2022-0 Yes [id number] Apply to [facility] % ointment 2-14 area(s) 3 [facility] 00:00: (three) [place] 00 times Medical daily. [facility] mupirocin 2 2022-0 Yes [id number] Apply to [facility] % ointment 2-14 area(s) 3 [facility] 00:00: (three) [place] 00 times Medical daily. [facility] mupirocin 2 2-0 Yes [id number] Apply to [facility] % ointment 2-14 area(s) 3 [facility] 00:00: (three) [place] 00 times Medical daily. [facility] mupirocin 2 2-0 Yes [id number] Apply to [facility] % ointment 2-14 area(s) 3 [facility] 00:00: (three) [place] 00 times Medical daily. [facility] mupirocin 2 2-0 Yes [id number] Apply to [facility] % ointment 2-14 area(s) 3 [facility] 00:00: (three) [place] 00 times Medical daily. [facility] mupirocin 2 2-0 Yes [id number] Apply to [facility] % ointment 2-14 area(s) 3 [facility] 00:00: (three) [place] 00 times Medical daily. [facility] mupirocin 2 2-0 Yes [id number] Apply to [facility] % ointment 2-14 area(s) 3 [facility] 00:00: (three) [place] 00 times Medical daily. [facility] mupirocin 2 2022-0 Yes [id number] Apply to [facility] % ointment 2-14 area(s) 3 [facility] 00:00: (three) [place] 00 times Medical daily. [facility] mupirocin 2 2022-0 Yes [id number] Apply to [facility] % ointment 2-14 area(s) 3 [facility] 00:00: (three) [place] 00 times Medical daily. [facility] mupirocin 2 2022-0 Yes [id number] Apply to [facility] % ointment 2-14 area(s) 3 [facility] 00:00: (three) [place] 00 times Medical daily. [facility] mupirocin 2 2-0 Yes [id number] Apply to [facility] % ointment 2-14 area(s) 3 [facility] 00:00: (three) [place] 00 times Medical daily. [facility] mupirocin 2 2022-0 Yes [id number] Apply to [facility] % ointment 2-14 area(s) 3 [facility] 00:00: (three) [place] 00 times Medical daily. [facility] mupirocin 2 2022-0 Yes [id number] Apply to [facility] % ointment 2-14 area(s) 3 [facility] 00:00: (three) [place] 00 times Medical daily. [facility] mupirocin 2 2-0 Yes [id number] Apply to [facility] % ointment 2-14 area(s) 3 [facility] 00:00: (three) [place] 00 times Medical daily. [facility] mupirocin 2 2-0 Yes [id number] Apply to [facility] % ointment 2-14 area(s) 3 [facility] 00:00: (three) [place] 00 times Medical daily. [facility] mupirocin 2 2-0 Yes [id number] Apply to [facility] % ointment 2-14 area(s) 3 [facility] 00:00: (three) [place] 00 times Medical daily. [facility] mupirocin 2 2-0 Yes [id number] Apply to [facility] % ointment 2-14 area(s) 3 [facility] 00:00: (three) [place] 00 times Medical daily. [facility] mupirocin 2 2-0 Yes [id number] Apply to [facility] % ointment 2-14 area(s) 3 [facility] 00:00: (three) [place] 00 times Medical daily. [facility] mupirocin 2 2022-0 Yes [id number] Apply to [facility] % ointment 2-14 area(s) 3 [facility] of 00:00: (three) [place] 00 times Medical daily. [facility] mupirocin 2 2022-0 Yes [id number] Apply to [facility] % ointment 2-14 area(s) 3 [facility] 00:00: (three) [place] 00 times Medical daily. [facility] mupirocin 2 2022-0 Yes [id number] Apply to [facility] % ointment 2-14 area(s) 3 [facility] of 00:00: (three) [place] 00 times Medical daily. [facility] mupirocin 2 2-0 Yes [id number] Apply to [facility] % ointment 2-14 area(s) 3 [facility] of 00:00: (three) [place] 00 times Medical daily. [facility] mupirocin 2 2-0 Yes [id number] Apply to [facility] % ointment 2-14 area(s) 3 [facility] of 00:00: (three) [place] 00 times Medical daily. [facility] mupirocin 2 2-0 Yes [id number] Apply to [facility] % ointment 2-14 area(s) 3 [facility] 00:00: (three) [place] 00 times Medical daily. [facility] mupirocin 2 2-0 Yes [id number] Apply to [facility] % ointment 2-14 area(s) 3 [facility] of 00:00: (three) [place] 00 times Medical daily. [facility] mupirocin 2 2021-0 Yes [id number] Apply to [facility] % ointment 2-14 area(s) 3 [facility] of 00:00: (three) [place] 00 times Medical daily. [facility] mupirocin 2 2021-0 Yes [id number] Apply to [facility] % ointment 2-14 area(s) 3 [facility] of 00:00: (three) [place] 00 times Medical daily. [facility] mupirocin 2 2-0 Yes [id number] Apply to [facility] % ointment 2-14 area(s) 3 [facility] of 00:00: (three) [place] 00 times Medical daily. [facility] mupirocin 2 2-0 Yes [id number] Apply to [facility] % ointment 2-14 area(s) 3 [facility] of 00:00: (three) [place] 00 times Medical daily. [facility] mupirocin 2 2-0 Yes [id number] Apply to [facility] % ointment 2-14 area(s) 3 [facility] of 00:00: (three) [place] 00 times Medical daily. [facility] mupirocin 2 2-0 Yes [id number] Apply to [facility] % ointment 2-14 area(s) 3 [facility] of 00:00: (three) [place] 00 times Medical daily. [facility] mupirocin 2 2-0 Yes [id number] Apply to [facility] % ointment 2-14 area(s) 3 [facility] of 00:00: (three) [place] 00 times Medical daily. [facility] mupirocin 2 2-0 Yes [id number] Apply to [facility] % ointment 2-14 area(s) 3 [facility] of 00:00: (three) [place] 00 times Medical daily. [facility] mupirocin 2 2-0 Yes [id number] Apply to [facility] % ointment 2-14 area(s) 3 [facility] of 00:00: (three) [place] 00 times Medical daily. [facility] mupirocin 2 2-0 Yes [id number] Apply to [facility] % ointment 2-14 area(s) 3 [facility] of 00:00: (three) [place] 00 times Medical daily. [facility] mupirocin 2 2-0 Yes [id number] Apply to [facility] % ointment 2-14 area(s) 3 [facility] of 00:00: (three) [place] 00 times Medical daily. [facility] mupirocin 2 2-0 Yes [id number] Apply to [facility] % ointment 2-14 area(s) 3 [facility] of 00:00: (three) [place] 00 times Medical daily. [facility] mupirocin 2 2-0 Yes [id number] Apply to [facility] % ointment 2-14 area(s) 3 [facility] of 00:00: (three) [place] 00 times Medical daily. [facility] mupirocin 2 2-0 Yes [id number] Apply to [facility] % ointment 2-14 area(s) 3 [facility] of 00:00: (three) [place] 00 times Medical daily. [facility] mupirocin 2 2-0 Yes [id number] Apply to [facility] % ointment 2-14 area(s) 3 [facility] of 00:00: (three) [place] 00 times Medical daily. [facility] mupirocin 2 2-0 Yes [id number] Apply to [facility] % ointment 2-14 area(s) 3 [facility] of 00:00: (three) [place] 00 times Medical daily. [facility] mupirocin 2 2-0 Yes [id number] Apply to [facility] % ointment 2-14 area(s) 3 [facility] of 00:00: (three) [place] 00 times Medical daily. [facility] mupirocin 2 2-0 Yes [id number] Apply to [facility] % ointment 2-14 area(s) 3 [facility] of 00:00: (three) [place] 00 times Medical daily. [facility] mupirocin 2 2-0 Yes [id number] Apply to [facility] % ointment 2-14 area(s) 3 [facility] of 00:00: (three) [place] 00 times Medical daily. [facility] mupirocin 2 2-0 Yes [id number] Apply to [facility] % ointment 2-14 area(s) 3 [facility] of 00:00: (three) [place] 00 times Medical daily. [facility] mupirocin 2 2-0 Yes [id number] Apply to [facility] % ointment 2-14 area(s) 3 [facility] of 00:00: (three) [place] 00 times Medical daily. [facility] mupirocin 2 2-0 Yes [id number] Apply to [facility] % ointment 2-14 area(s) 3 [facility] of 00:00: (three) [place] 00 times Medical daily. [facility] mupirocin 2 2-0 Yes [id number] Apply to [facility] % ointment 2-14 area(s) 3 [facility] of 00:00: (three) [place] 00 times Medical daily. [facility] mupirocin 2 2-0 Yes [id number] Apply to [facility] % ointment 2-14 area(s) 3 [facility] of 00:00: (three) [place] 00 times Medical daily. [facility] mupirocin 2 2-0 Yes [id number] Apply to [facility] % ointment 2-14 area(s) 3 [facility] of 00:00: (three) [place] 00 times Medical daily. [facility] mupirocin 2 2-0 Yes [id number] Apply to [facility] % ointment 2-14 area(s) 3 [facility] of 00:00: (three) [place] 00 times Medical daily. [facility] mupirocin 2 2-0 Yes [id number] Apply to [facility] % ointment 2-14 area(s) 3 [facility] of 00:00: (three) [place] 00 times Medical daily. [facility] mupirocin 2 2-0 Yes [id number] Apply to [facility] % ointment 2-14 area(s) 3 [facility] of 00:00: (three) [place] 00 times Medical daily. [facility] mupirocin 2 2-0 Yes [id number] Apply to [facility] % ointment 2-14 area(s) 3 [facility] of 00:00: (three) [place] 00 times Medical daily. [facility] mupirocin 2 2-0 Yes [id number] Apply to [facility] % ointment 2-14 area(s) 3 [facility] of 00:00: (three) [place] 00 times Medical daily. [facility] mupirocin 2 2022-0 Yes [id number] Apply to [facility] % ointment 2-14 area(s) 3 [facility] of 00:00: (three) [place] 00 times Medical daily. [facility] mupirocin 2 2022-0 Yes [id number] Apply to [facility] % ointment 2-14 area(s) 3 [facility] of 00:00: (three) [place] 00 times Medical daily. [facility] mupirocin 2 2022-0 Yes [id number] Apply to [facility] % ointment 2-14 area(s) 3 [facility] of 00:00: (three) [place] 00 times Medical daily. [facility] mupirocin 2 2-0 Yes [id number] Apply to [facility] % ointment 2-14 area(s) 3 [facility] of 00:00: (three) [place] 00 times Medical daily. [facility] mupirocin 2 2-0 Yes [id number] Apply to [facility] % ointment 2-14 area(s) 3 [facility] of 00:00: (three) [place] 00 times Medical daily. [facility] mupirocin 2 2-0 Yes [id number] Apply to [facility] % ointment 2-14 area(s) 3 [facility] of 00:00: (three) [place] 00 times Medical daily. [facility] mupirocin 2 2022-0 Yes [id number] Apply to [facility] % ointment 2-14 area(s) 3 [facility] of 00:00: (three) [place] 00 times Medical daily. [facility] mupirocin 2 2022-0 Yes [id number] Apply to [facility] % ointment 2-14 area(s) 3 [facility] of 00:00: (three) [place] 00 times Medical daily. [facility] mupirocin 2 2022-0 Yes [id number] Apply to [facility] % ointment 2-14 area(s) 3 [facility] of 00:00: (three) [place] 00 times Medical daily. [facility] mupirocin 2 2022-0 Yes [id number] Apply to [facility] % ointment 2-14 area(s) 3 [facility] of 00:00: (three) [place] 00 times Medical daily. [facility] mupirocin 2 2022-0 Yes [id number] Apply to [facility] % ointment 2-14 area(s) 3 [facility] of 00:00: (three) [place] 00 times Medical daily. [facility] mupirocin 2 2022-0 Yes [id number] Apply to [facility] % ointment 2-14 area(s) 3 [facility] of 00:00: (three) [place] 00 times Medical daily. [facility] mupirocin 2 2022-0 Yes [id number] Apply to [facility] % ointment 2-14 area(s) 3 [facility] of 00:00: (three) [place] 00 times Medical daily. [facility] mupirocin 2 2022-0 Yes [id number] Apply to [facility] % ointment 2-14 area(s) 3 [facility] of 00:00: (three) [place] 00 times Medical daily. [facility] mupirocin 2 2022-0 Yes [id number] Apply to [facility] % ointment 2-14 area(s) 3 [facility] of 00:00: (three) [place] 00 times Medical daily. [facility] mupirocin 2 2022-0 Yes [id number] Apply to [facility] % ointment 2-14 area(s) 3 [facility] of 00:00: (three) [place] 00 times Medical daily. [facility] mupirocin 2 2022-0 Yes [id number] Apply to [facility] % ointment 2-14 area(s) 3 [facility] of 00:00: (three) [place] 00 times Medical daily. [facility] mupirocin 2 2022-0 Yes [id number] Apply to [facility] % ointment 2-14 area(s) 3 [facility] of 00:00: (three) [place] 00 times Medical daily. [facility] mupirocin 2 2022-0 Yes [id number] Apply to [facility] % ointment 2-14 area(s) 3 [facility] of 00:00: (three) [place] 00 times Medical daily. [facility] mupirocin 2 2022-0 Yes [id number] Apply to [facility] % ointment 2-14 area(s) 3 [facility] of 00:00: (three) [place] 00 times Medical daily. [facility] mupirocin 2 2022-0 Yes [id number] Apply to [facility] % ointment 2-14 area(s) 3 [facility] of 00:00: (three) [place] 00 times Medical daily. [facility] mupirocin 2 2022-0 Yes [id number] Apply to [facility] % ointment 2-14 area(s) 3 [facility] of 00:00: (three) [place] 00 times Medical daily. [facility] mupirocin 2 2022-0 Yes [id number] Apply to [facility] % ointment 2-14 area(s) 3 [facility] of 00:00: (three) [place] 00 times Medical daily. Branch mupirocin 2 2022-0 Yes [id number] Apply to [facility] % ointment 2-14 area(s) 3 [facility] of 00:00: (three) [place] 00 times Medical daily. Branch mupirocin 2 2022-0 Yes [id number] Apply to [facility] % ointment 2-14 area(s) 3 [facility] of 00:00: (three) [place] 00 times Medical daily. Branch mupirocin 2 2022-0 Yes [id number] Apply to [facility] % ointment 2-14 area(s) 3 [facility] of 00:00: (three) [place] 00 times Medical daily. Branch mupirocin 2 2022-0 Yes [id number] Apply to [facility] % ointment 2-14 area(s) 3 [facility] of 00:00: (three) [place] 00 times Medical daily. Branch mupirocin 2 2022-0 Yes [id number] Apply to [facility] % ointment 2-14 area(s) 3 [facility] of 00:00: (three) [place] 00 times Medical daily. [facility] mupirocin 2 2022-0 Yes [id number] Apply to [facility] % ointment 2-14 area(s) 3 [facility] of 00:00: (three) [place] 00 times Medical daily. [facility] mupirocin 2 2022-0 Yes [id number] Apply to [facility] % ointment 2-14 area(s) 3 [facility] of 00:00: (three) [place] 00 times Medical daily. Branch mupirocin 2 2022-0 Yes [id number] Apply to [facility] % ointment 2-14 area(s) 3 [facility] of 00:00: (three) [place] 00 times Medical daily. [facility] mupirocin 2 2022-0 Yes [id number] Apply to [facility] % ointment 2-14 area(s) 3 [facility] of 00:00: (three) [place] 00 times Medical daily. [facility] mupirocin 2 2022-0 Yes [id number] Apply to [facility] % ointment 2-14 area(s) 3 [facility] of 00:00: (three) [place] 00 times Medical daily. [facility] mupirocin 2 2022-0 Yes [id number] Apply to [facility] % ointment 2-14 area(s) 3 [facility] of 00:00: (three) [place] 00 times Medical daily. [facility] mupirocin 2 2022-0 Yes [id number] Apply to [facility] % ointment 2-14 area(s) 3 [facility] of 00:00: (three) [place] 00 times Medical daily. Branch mupirocin 2 2022-0 Yes [id number] Apply to [facility] % ointment 2-14 area(s) 3 it[facility] of 00:00: (three) [place] 00 times Medical daily. [facility] mupirocin 2 2-0 Yes [id number] Apply to [facility] % ointment 2-14 area(s) 3 [facility] of 00:00: (three) [place] 00 times Medical daily. [facility] mupirocin 2 2-0 Yes [id number] Apply to [facility] % ointment 2-14 area(s) 3 ity of 00:00: (three) [place] 00 times Medical daily. Branch mupirocin 2 2-0 Yes [id number] Apply to [facility] % ointment 2-14 area(s) 3 ity of 00:00: (three) [place] 00 times Medical daily. Branch mupirocin 2 2022-0 Yes [id number] Apply to [facility] % ointment 2-14 area(s) 3 ity of 00:00: (three) [place] 00 times Medical daily. Branch mupirocin 2 2-0 Yes [id number] Apply to [facility] % ointment 2-14 area(s) 3 ity of 00:00: (three) [place] 00 times Medical daily. Branch mupirocin 2 2022-0 Yes [id number] Apply to [facility] % ointment 2-14 area(s) 3 ity of 00:00: (three) [place] 00 times Medical daily. Branch mupirocin 2 2022-0 Yes [id number] Apply to [facility] % ointment 2-14 area(s) 3 [facility] of 00:00: (three) [place] 00 times Medical daily. Branch mupirocin 2 2022-0 Yes [id number] Apply to [facility] % ointment 2-14 area(s) 3 [facility] of 00:00: (three) [place] 00 times Medical daily. Branch mupirocin 2 2022-0 Yes [id number] Apply to [facility] % ointment 2-14 area(s) 3 [facility] of 00:00: (three) [place] 00 times Medical daily. Branch mupirocin 2 2022-0 Yes [id number] Apply to [facility] % ointment 2-14 area(s) 3 [facility] of 00:00: (three) [place] 00 times Medical daily. Branch mupirocin 2 2022-0 Yes [id number] Apply to [facility] % ointment 2-14 area(s) 3 ity of 00:00: (three) [place] 00 times Medical daily. Branch mupirocin 2 2-0 Yes [id number] Apply to [facility] % ointment 2-14 area(s) 3 [facility] of 00:00: (three) [place] 00 times Medical daily. Branch mupirocin 2 2-0 Yes [id number] Apply to [facility] % ointment 2-14 area(s) 3 it[facility] of 00:00: (three) [place] 00 times Medical daily. Branch mupirocin 2 2-0 Yes [id number] Apply to [facility] % ointment 2-14 area(s) 3 [facility] of 00:00: (three) [place] 00 times Medical daily. Branch mupirocin 2 2-0 Yes [id number] Apply to [facility] % ointment 2-14 area(s) 3 [facility] of 00:00: (three) [place] 00 times Medical daily. Branch mupirocin 2 2-0 Yes [id number] Apply to [facility] % ointment 2-14 area(s) 3 [facility] of 00:00: (three) [place] 00 times Medical daily. Branch mupirocin 2 2022-0 Yes [id number] Apply to [facility] % ointment 2-14 area(s) 3 [facility] of 00:00: (three) [place] 00 times Medical daily. Branch mupirocin 2 2022-0 Yes [id number] Apply to [facility] % ointment 2-14 area(s) 3 [facility] of 00:00: (three) [place] 00 times Medical daily. Branch mupirocin 2 2022-0 Yes [id number] Apply to [facility] % ointment 2-14 area(s) 3 it[facility] of 00:00: (three) [place] 00 times Medical daily. Branch mupirocin 2 2-0 Yes [id number] Apply to [facility] % ointment 2-14 area(s) 3 [facility] of 00:00: (three) [place] 00 times Medical daily. [facility] mupirocin 2 2-0 Yes [id number] Apply to [facility] % ointment 2-14 area(s) 3 [facility] of 00:00: (three) [place] 00 times Medical daily. Branch mupirocin 2 2-0 Yes [id number] Apply to [facility] % ointment 2-14 area(s) 3 [facility] of 00:00: (three) [place] 00 times Medical daily. Branch mupirocin 2 2021-0 Yes [id number] Apply to [facility] % ointment 2-14 area(s) 3 [facility]y of 00:00: (three) [place] 00 times Medical daily. Branch mupirocin 2 2021-0 Yes [id number] Apply to [facility] % ointment 2-14 area(s) 3 [facility] of 00:00: (three) [place] 00 times Medical daily. Branch mupirocin 2 2021-0 Yes [id number] Apply to [facility] % ointment 2-14 area(s) 3 [facility] of 00:00: (three) [place] 00 times Medical daily. Branch mupirocin 2 2021-0 Yes [id number] Apply to [facility] % ointment 2-14 area(s) 3 [facility] of 00:00: (three) [place] 00 times Medical daily. Branch mupirocin 2 2-0 Yes [id number] Apply to [facility] % ointment 2-14 area(s) 3 [facility]y of 00:00: (three) [place] 00 times Medical daily. Branch mupirocin 2 2-0 Yes [id number] Apply to [facility] % ointment 2-14 area(s) 3 [facility] of 00:00: (three) [place] 00 times Medical daily. Branch mupirocin 2 2-0 Yes [id number] Apply to [facility] % ointment 2-14 area(s) 3 [facility] of 00:00: (three) [place] 00 times Medical daily. Branch COLCHICINE 2021-0 Yes [id number] 1{capsu TAKE 1 [facility] 0.6 mg Cap 2-10 le} CAPSULE BY [facility]y of 00:00: MOUTH [place] DAILY [facility] COLCHICINE 2022-0 Yes [id number] 1{capsu TAKE 1 [facility] 0.6 mg Cap 2-10 le} CAPSULE BY [facility]y of 00:00: MOUTH [place] DAILY [facility] COLCHICINE 2021-0 Yes [id number] 1{capsu TAKE 1 [facility] 0.6 mg Cap 2-10 le} CAPSULE BY [facility] of 00:00: MOUTH [place] DAILY [facility] COLCHICINE 2021-0 Yes [id number] 1{capsu TAKE 1 [facility] 0.6 mg Cap 2-10 le} CAPSULE BY [facility] of 00:00: MOUTH [place] DAILY [facility] COLCHICINE 2021-0 Yes [id number] 1{capsu TAKE 1 [facility] 0.6 mg Cap 2-10 le} CAPSULE BY ity of 00:00: [facility] DAILY Medical Branch COLCHICINE 2021-0 Yes [id number] 1{capsu TAKE 1 [facility] 0.6 mg Cap 2-10 le} CAPSULE BY ity of 00:00: [facility] DAILY Medical Branch COLCHICINE 2021-0 Yes [id number] 1{capsu TAKE 1 [facility] 0.6 mg Cap 2-10 le} CAPSULE BY ity of 00:00: MOUTH [place] DAILY Medical Branch COLCHICINE 2021-0 Yes [id number] 1{capsu TAKE 1 [facility] 0.6 mg Cap 2-10 le} CAPSULE BY ity of 00:00: [facility] DAILY Medical Branch COLCHICINE 2-0 Yes [id number] 1{capsu TAKE 1 [facility] 0.6 mg Cap 2-10 le} CAPSULE BY ity of 00:00: [facility] DAILY Medical Branch COLCHICINE 2022-0 Yes [id number] 1{capsu TAKE 1 [facility] 0.6 mg Cap 2-10 le} CAPSULE BY ity of 00:00: MOUTH [place] DAILY [facility] Branch COLCHICINE 2022-0 Yes [id number] 1{capsu TAKE 1 [facility] 0.6 mg Cap 2-10 le} CAPSULE BY ity of 00:00: [facility] DAILY Medical Branch COLCHICINE 2022-0 Yes [id number] 1{capsu TAKE 1 [facility] 0.6 mg Cap 2-10 le} CAPSULE BY ity of 00:00: MOUTH [place] DAILY [facility] Branch COLCHICINE 2022-0 Yes [id number] 1{capsu TAKE 1 [facility] 0.6 mg Cap 2-10 le} CAPSULE BY ity of 00:00: MOUTH [place] DAILY [facility] Branch COLCHICINE 2022-0 Yes [id number] 1{capsu TAKE 1 [facility] 0.6 mg Cap 2-10 le} CAPSULE BY [facility] of 00:00: MOUTH [place] DAILY [facility] Branch COLCHICINE 2022-0 Yes [id number] 1{capsu TAKE 1 [facility] 0.6 mg Cap 2-10 le} CAPSULE BY [facility] of 00:00: MOUTH [place] DAILY [facility] COLCHICINE 2022-0 Yes [id number] 1{capsu TAKE 1 [facility] 0.6 mg Cap 2-10 le} CAPSULE BY [facility] of 00:00: MOUTH [place] DAILY [facility] COLCHICINE 2-0 Yes [id number] 1{capsu TAKE 1 [facility] 0.6 mg Cap 2-10 le} CAPSULE BY [facility] of 00:00: MOUTH [place] DAILY [facility] COLCHICINE 202-0 Yes [id number] 1{capsu TAKE 1 [facility] 0.6 mg Cap 2-10 le} CAPSULE BY [facility] of 00:00: MOUTH [place] DAILY [facility] COLCHICINE 2021-0 Yes [id number] 1{capsu TAKE 1 [facility] 0.6 mg Cap 2-10 le} CAPSULE BY [facility] 00:00: MOUTH [place] [facility] COLCHICINE 2021-0 Yes [id number] 1{capsu TAKE 1 [facility] 0.6 mg Cap 2-10 le} CAPSULE BY [facility] 00:00: MOUTH [place] [facility] COLCHICINE 202-0 Yes [id number] 1{capsu TAKE 1 [facility] 0.6 mg Cap 2-10 le} CAPSULE BY [facility] 00:00: MOUTH [place] [facility] COLCHICINE 2022-0 Yes [id number] 1{capsu TAKE 1 [facility] 0.6 mg Cap 2-10 le} CAPSULE BY [facility] 00:00: MOUTH [place] [facility] COLCHICINE 2022-0 Yes [id number] 1{capsu TAKE 1 [facility] 0.6 mg Cap 2-10 le} CAPSULE BY [facility] 00:00: MOUTH [place] [facility] COLCHICINE 2022-0 Yes [id number] 1{capsu TAKE 1 [facility] 0.6 mg Cap 2-10 le} CAPSULE BY [facility] 00:00: MOUTH [place] [facility] COLCHICINE 2022-0 Yes [id number] 1{capsu TAKE 1 [facility] 0.6 mg Cap 2-10 le} CAPSULE BY [facility] 00:00: MOUTH [place] [facility] COLCHICINE 2022-0 Yes [id number] 1{capsu TAKE 1 [facility] 0.6 mg Cap 2-10 le} CAPSULE BY [facility] 00:00: MOUTH [place] [facility] COLCHICINE 2022-0 Yes [id number] 1{capsu TAKE 1 [facility] 0.6 mg Cap 2-10 le} CAPSULE BY [facility] 00:00: MOUTH [place] [facility] COLCHICINE 2022-0 Yes [id number] 1{capsu TAKE 1 [facility] 0.6 mg Cap 2-10 le} CAPSULE BY [facility] 00:00: MOUTH [place] [facility] COLCHICINE 2022-0 Yes [id number] 1{capsu TAKE 1 [facility] 0.6 mg Cap 2-10 le} CAPSULE BY [facility] 00:00: MOUTH [place] [facility] COLCHICINE 2022-0 Yes [id number] 1{capsu TAKE 1 [facility] 0.6 mg Cap 2-10 le} CAPSULE BY [facility] 00:00: MOUTH [place] [facility] COLCHICINE 2022-0 Yes [id number] 1{capsu TAKE 1 [facility] 0.6 mg Cap 2-10 le} CAPSULE BY [facility] 00:00: MOUTH [place] [facility] COLCHICINE 2022-0 Yes [id number] 1{capsu TAKE 1 [facility] 0.6 mg Cap 2-10 le} CAPSULE BY [facility] 00:00: MOUTH [place] [facility] COLCHICINE 2022-0 Yes [id number] 1{capsu TAKE 1 [facility] 0.6 mg Cap 2-10 le} CAPSULE BY [facility] 00:00: MOUTH [place] [facility] COLCHICINE 2022-0 Yes [id number] 1{capsu TAKE 1 [facility] 0.6 mg Cap 2-10 le} CAPSULE BY [facility] 00:00: MOUTH [place] [facility] COLCHICINE 2022-0 Yes [id number] 1{capsu TAKE 1 [facility] 0.6 mg Cap 2-10 le} CAPSULE BY [facility] 00:00: MOUTH [place] [facility] COLCHICINE 2022-0 Yes [id number] 1{capsu TAKE 1 [facility] 0.6 mg Cap 2-10 le} CAPSULE BY [facility] 00:00: MOUTH [facility]ILY [facility] COLCHICINE 2022-0 Yes [id number] 1{capsu TAKE 1 [facility] 0.6 mg Cap 2-10 le} CAPSULE BY [facility] 00:00: MOUTH [place] [facility] COLCHICINE 2021-0 Yes [id number] 1{capsu TAKE 1 [facility] 0.6 mg Cap 2-10 le} CAPSULE BY [facility] 00:00: MOUTH [place] [facility] COLCHICINE 2021-0 Yes [id number] 1{capsu TAKE 1 [facility] 0.6 mg Cap 2-10 le} CAPSULE BY [facility] 00:00: MOUTH [place] [facility] COLCHICINE 2021-0 Yes [id number] 1{capsu TAKE 1 [facility] 0.6 mg Cap 2-10 le} CAPSULE BY [facility] 00:00: MOUTH [place] [facility] COLCHICINE 0 Yes [id number] 1{capsu TAKE 1 [facility] 0.6 mg Cap 2-10 le} CAPSULE BY [facility] of 00:00: [facility] DAILY [facility] COLCHICINE 2021-0 2022- No [id number] 1{capsu TAKE 1 [facility] 0.6 mg Cap 2-10 12-28 le} CAPSULE BY it y of 00:00: 00:00 MOUTH [place] 00 :00 DAILY [facility] azelastine 0 Yes [id number] 1[drp] Place 1 [facility] 0.05 % 1-31 Drop in [facility] ophthalmic 00:00: both eyes [place] solution 00 2 (two) Medical times Branch daily. azelastine Yes [id number] 1[drp] Place 1 [facility] 0.05 % 1-31 Drop in [facility] ophthalmic 00:00: both eyes [place] solution 00 2 (two) Medical times [facility] daily. azelastine 2021-0 Yes [id number] 1[drp] Place 1 [facility] 0.05 % 1-31 Drop in [facility] ophthalmic 00:00: both eyes [place] solution 00 2 (two) Medical times [facility] daily. azelastine 2021-0 Yes [id number] 1[drp] Place 1 [facility] 0.05 % 1-31 Drop in [facility] ophthalmic 00:00: both eyes [place] solution 00 2 (two) Medical times [facility] daily. azelastine 2021-0 Yes [id number] 1[drp] Place 1 [facility] 0.05 % 1-31 Drop in [facility] 00:00: both eyes [place] solution 00 2 (two) Medical times [facility] daily. azelastine 2022-0 Yes [id number] 1[drp] Place 1 [facility] 0.05 % 1-31 Drop in [facility]mic 00:00: both eyes [place] solution 00 2 (two) Medical times [facility] daily. azelastine 2-0 Yes [id number] 1[drp] Place 1 [facility] 0.05 % 1-31 Drop in [facility]mic 00:00: both eyes [place] solution 00 2 (two) Medical times [facility] daily. azelastine 2022-0 Yes [id number] 1[drp] Place 1 [facility] 0.05 % 1-31 Drop in [facility]mic 00:00: both eyes [place] solution 00 2 (two) Medical times [facility] daily. azelastine 2-0 Yes [id number] 1[drp] Place 1 [facility] 0.05 % 1-31 Drop in [facility] 00:00: both eyes [place] solution 00 2 (two) [facility] times [facility] daily. azelastine 2-0 Yes [id number] 1[drp] Place 1 [facility] 0.05 % 1-31 Drop in [facility] 00:00: both eyes [place] solution 00 2 (two) Medical times [facility] daily. azelastine 2-0 Yes [id number] 1[drp] Place 1 [facility] 0.05 % 1-31 Drop in [facility]mic 00:00: both eyes [place] solution 00 2 (two) Medical times [facility] daily. azelastine 2-0 Yes [id number] 1[drp] Place 1 [facility] 0.05 % 1-31 Drop in [facility]mic 00:00: both eyes [place] solution 00 2 (two) Medical times [facility] daily. azelastine 2022-0 Yes [id number] 1[drp] Place 1 [facility] 0.05 % 1-31 Drop in [facility] ophthalmic 00:00: both eyes [place] solution 00 2 (two) Medical times Branch daily. azelastine 2022-0 Yes [id number] 1[drp] Place 1 [facility] 0.05 % 1-31 Drop in [facility] ophthalmic 00:00: both eyes [place] solution 00 2 (two) Medical times Branch daily. azelastine 2022-0 Yes [id number] 1[drp] Place 1 [facility] 0.05 % 1-31 Drop in [facility] ophthalmic 00:00: both eyes [place] solution 00 2 (two) Medical times Branch daily. azelastine 2-0 Yes [id number] 1[drp] Place 1 [facility] 0.05 % 1-31 Drop in [facility] ophthalmic 00:00: both eyes [place] solution 00 2 (two) Medical times Branch daily. azelastine 2-0 Yes [id number] 1[drp] Place 1 [facility] 0.05 % 1-31 Drop in [facility] ophthalmic 00:00: both eyes [place] solution 00 2 (two) Medical times Branch daily. azelastine 2022-0 Yes [id number] 1[drp] Place 1 [facility] 0.05 % 1-31 Drop in [facility] ophthalmic 00:00: both eyes [place] solution 00 2 (two) Medical times Branch daily. azelastine 2-0 Yes [id number] 1[drp] Place 1 [facility] 0.05 % 1-31 Drop in [facility] ophthalmic 00:00: both eyes [place] solution 00 2 (two) Medical times Branch daily. azelastine 2-0 Yes [id number] 1[drp] Place 1 [facility] 0.05 % 1-31 Drop in [facility] ophthalmic 00:00: both eyes [place] solution 00 2 (two) Medical times Branch daily. azelastine 2-0 Yes [id number] 1[drp] Place 1 [facility] 0.05 % 1-31 Drop in [facility] ophthalmic 00:00: both eyes [place] solution 00 2 (two) Medical times Branch daily. azelastine 2-0 Yes [id number] 1[drp] Place 1 [facility] 0.05 % 1-31 Drop in [facility] ophthalmic 00:00: both eyes [place] solution 00 2 (two) Medical times Branch daily. azelastine 2022-0 Yes [id number] 1[drp] Place 1 [facility] 0.05 % 1-31 Drop in [facility] ophthalmic 00:00: both eyes [place] solution 00 2 (two) Medical times Branch daily. azelastine 2-0 Yes [id number] 1[drp] Place 1 [facility] 0.05 % 1-31 Drop in [facility] ophthalmic 00:00: both eyes [place] solution 00 2 (two) Medical times Branch daily. azelastine 2-0 Yes [id number] 1[drp] Place 1 [facility] 0.05 % 1-31 Drop in [facility] ophthalmic 00:00: both eyes [place] solution 00 2 (two) Medical times Branch daily. azelastine 2-0 Yes [id number] 1[drp] Place 1 [facility] 0.05 % 1-31 Drop in [facility]mic 00:00: both eyes [place] solution 00 2 (two) Medical times Branch daily. azelastine 2-0 Yes [id number] 1[drp] Place 1 [facility] 0.05 % 1-31 Drop in [facility] ophthalmic 00:00: both eyes [place] solution 00 2 (two) Medical times Branch daily. azelastine 2021-0 Yes [id number] 1[drp] Place 1 [facility] 0.05 % 1-31 Drop in [facility] ophthalmic 00:00: both eyes [place] solution 00 2 (two) Medical times Branch daily. azelastine 2021-0 Yes [id number] 1[drp] Place 1 [facility] 0.05 % 1-31 Drop in [facility] ophthalmic 00:00: both eyes [place] solution 00 2 (two) Medical times Branch daily. azelastine 2-0 Yes [id number] 1[drp] Place 1 [facility] 0.05 % 1-31 Drop in [facility] ophthalmic 00:00: both eyes [place] solution 00 2 (two) Medical times Branch daily. azelastine 2-0 Yes [id number] 1[drp] Place 1 [facility] 0.05 % 1-31 Drop in [facility] ophthalmic 00:00: both eyes [place] solution 00 2 (two) Medical times Branch daily. azelastine 2022-0 Yes [id number] 1[drp] Place 1 [facility] 0.05 % 1-31 Drop in [facility] ophthalmic 00:00: both eyes [place] solution 00 2 (two) Medical times Branch daily. azelastine 2-0 Yes [id number] 1[drp] Place 1 [facility] 0.05 % 1-31 Drop in [facility] ophthalmic 00:00: both eyes [place] solution 00 2 (two) Medical times Branch daily. azelastine 2022-0 Yes [id number] 1[drp] Place 1 [facility] 0.05 % 1-31 Drop in [facility]mic 00:00: both eyes [place] solution 00 2 (two) Medical times Branch daily. azelastine 2022-0 Yes [id number] 1[drp] Place 1 [facility] 0.05 % 1-31 Drop in [facility] ophthalmic 00:00: both eyes [place] solution 00 2 (two) Medical times Branch daily. azelastine 2022-0 Yes [id number] 1[drp] Place 1 [facility] 0.05 % 1-31 Drop in [facility] ophthalmic 00:00: both eyes [place] solution 00 2 (two) Medical times Branch daily. azelastine 2022-0 Yes [id number] 1[drp] Place 1 [facility] 0.05 % 1-31 Drop in [facility] ophthalmic 00:00: both eyes [place] solution 00 2 (two) Medical times Branch daily. azelastine 2022-0 Yes [id number] 1[drp] Place 1 [facility] 0.05 % 1-31 Drop in [facility] ophthalmic 00:00: both eyes [place] solution 00 2 (two) Medical times Branch daily. azelastine 2022-0 Yes [id number] 1[drp] Place 1 [facility] 0.05 % 1-31 Drop in [facility] ophthalmic 00:00: both eyes [place] solution 00 2 (two) Medical times Branch daily. azelastine 2022-0 Yes [id number] 1[drp] Place 1 [facility] 0.05 % 1-31 Drop in [facility] ophthalmic 00:00: both eyes [place] solution 00 2 (two) Medical times Branch daily. azelastine 2022-0 Yes [id number] 1[drp] Place 1 [facility] 0.05 % 1-31 Drop in [facility] ophthalmic 00:00: both eyes [place] solution 00 2 (two) Medical times Branch daily. azelastine 2022-0 Yes [id number] 1[drp] Place 1 [facility] 0.05 % 1-31 Drop in [facility] ophthalmic 00:00: both eyes [place] solution 00 2 (two) Medical times Branch daily. azelastine 2022-0 Yes [id number] 1[drp] Place 1 [facility] 0.05 % 1-31 Drop in [facility] of ophthalmic 00:00: both eyes [place] solution 00 2 (two) Medical times Branch daily. azelastine 2021-0 Yes [id number] 1[drp] Place 1 [facility] 0.05 % 1-31 Drop in [facility] of ophthalmic 00:00: both eyes [place] solution 00 2 (two) Medical times Branch daily. azelastine 2021-0 Yes [id number] 1[drp] Place 1 [facility] 0.05 % 1-31 Drop in [facility] of ophthalmic 00:00: both eyes [place] solution 00 2 (two) Medical times Branch daily. azelastine 2021-0 Yes [id number] 1[drp] Place 1 [facility] 0.05 % 1-31 Drop in [facility] of ophthalmic 00:00: both eyes [place] solution 00 2 (two) Medical times Branch daily. azelastine 2021-0 Yes [id number] 1[drp] Place 1 [facility] 0.05 % 1-31 Drop in [facility] ophthalmic 00:00: both eyes [place] solution 00 2 (two) Medical times Branch daily. azelastine 2021-0 Yes [id number] 1[drp] Place 1 [facility] 0.05 % 1-31 Drop in [facility] ophthalmic 00:00: both eyes [place] solution 00 2 (two) Medical times Branch daily. azelastine 2021-0 Yes [id number] 1[drp] Place 1 [facility] 0.05 % 1-31 Drop in [facility] ophthalmic 00:00: both eyes [place] solution 00 2 (two) Medical times Branch daily. azelastine 2021-0 Yes [id number] 1[drp] Place 1 [facility] 0.05 % 1-31 Drop in [facility] of ophthalmic 00:00: both eyes [place] solution 00 2 (two) Medical times Branch daily. azelastine 2-0 Yes [id number] 1[drp] Place 1 [facility] 0.05 % 1-31 Drop in [facility] of ophthalmic 00:00: both eyes [place] solution 00 2 (two) Medical times Branch daily. azelastine 2021-0 Yes [id number] 1[drp] Place 1 [facility] 0.05 % 1-31 Drop in [facility] ophthalmic 00:00: both eyes [place] solution 00 2 (two) Medical times Branch daily. azelastine 2022-0 Yes [id number] 1[drp] Place 1 [facility] 0.05 % 1-31 Drop in [facility] ophthalmic 00:00: both eyes [place] solution 00 2 (two) Medical times Branch daily. azelastine 2022-0 Yes [id number] 1[drp] Place 1 [facility] 0.05 % 1-31 Drop in [facility] ophthalmic 00:00: both eyes [place] solution 00 2 (two) Medical times Branch daily. azelastine 2022-0 Yes [id number] 1[drp] Place 1 [facility] 0.05 % 1-31 Drop in [facility] ophthalmic 00:00: both eyes [place] solution 00 2 (two) Medical times Branch daily. azelastine 2-0 Yes [id number] 1[drp] Place 1 [facility] 0.05 % 1-31 Drop in [facility] ophthalmic 00:00: both eyes [place] solution 00 2 (two) Medical times Branch daily. azelastine 2-0 Yes [id number] 1[drp] Place 1 [facility] 0.05 % 1-31 Drop in [facility] ophthalmic 00:00: both eyes [place] solution 00 2 (two) Medical times Branch daily. azelastine 2-0 Yes [id number] 1[drp] Place 1 [facility] 0.05 % 1-31 Drop in [facility] of ophthalmic 00:00: both eyes [place] solution 00 2 (two) Medical times Branch daily. azelastine 2-0 Yes [id number] 1[drp] Place 1 [facility] 0.05 % 1-31 Drop in [facility] of ophthalmic 00:00: both eyes [place] solution 00 2 (two) Medical times Branch daily. azelastine 2022-0 Yes [id number] 1[drp] Place 1 [facility] 0.05 % 1-31 Drop in [facility] of ophthalmic 00:00: both eyes [place] solution 00 2 (two) Medical times Branch daily. azelastine 2-0 Yes [id number] 1[drp] Place 1 [facility] 0.05 % 1-31 Drop in [facility] ophthalmic 00:00: both eyes [place] solution 00 2 (two) Medical times Branch daily. azelastine 2-0 Yes [id number] 1[drp] Place 1 [facility] 0.05 % 1-31 Drop in [facility] of ophthalmic 00:00: both eyes [place] solution 00 2 (two) Medical times Branch daily. azelastine 2-0 Yes [id number] 1[drp] Place 1 [facility] 0.05 % 1-31 Drop in [facility] of ophthalmic 00:00: both eyes [place] solution 00 2 (two) Medical times Branch daily. azelastine 2-0 Yes [id number] 1[drp] Place 1 [facility] 0.05 % 1-31 Drop in [facility]y of ophthalmic 00:00: both eyes [place] solution 00 2 (two) Medical times Branch daily. azelastine 2-0 Yes [id number] 1[drp] Place 1 [facility] 0.05 % 1-31 Drop in [facility]y of ophthalmic 00:00: both eyes [place] solution 00 2 (two) Medical times Branch daily. azelastine 2021-0 Yes [id number] 1[drp] Place 1 [facility] 0.05 % 1-31 Drop in [facility] of ophthalmic 00:00: both eyes [place] solution 00 2 (two) Medical times Branch daily. azelastine 2021-0 Yes [id number] 1[drp] Place 1 [facility] 0.05 % 1-31 Drop in [facility] ophthalmic 00:00: both eyes [place] solution 00 2 (two) Medical times Branch daily. azelastine 2-0 Yes [id number] 1[drp] Place 1 [facility] 0.05 % 1-31 Drop in [facility] ophthalmic 00:00: both eyes [place] solution 00 2 (two) Medical times Branch daily. azelastine 2-0 Yes [id number] 1[drp] Place 1 [facility] 0.05 % 1-31 Drop in [facility] ophthalmic 00:00: both eyes [place] solution 00 2 (two) Medical times Branch daily. azelastine 2-0 Yes [id number] 1[drp] Place 1 [facility] 0.05 % 1-31 Drop in [facility] ophthalmic 00:00: both eyes [place] solution 00 2 (two) Medical times Branch daily. azelastine 2-0 Yes [id number] 1[drp] Place 1 [facility] 0.05 % 1-31 Drop in [facility] ophthalmic 00:00: both eyes [place] solution 00 2 (two) Medical times Branch daily. azelastine 2022-0 Yes [id number] 1[drp] Place 1 [facility] 0.05 % 1-31 Drop in [facility] ophthalmic 00:00: both eyes [place] solution 00 2 (two) Medical times Branch daily. azelastine 2-0 Yes [id number] 1[drp] Place 1 [facility] 0.05 % 1-31 Drop in [facility] ophthalmic 00:00: both eyes [place] solution 00 2 (two) Medical times Branch daily. azelastine 2022-0 Yes [id number] 1[drp] Place 1 [facility] 0.05 % 1-31 Drop in [facility] of ophthalmic 00:00: both eyes [place] solution 00 2 (two) Medical times Branch daily. azelastine 2-0 Yes [id number] 1[drp] Place 1 [facility] 0.05 % 1-31 Drop in [facility] ophthalmic 00:00: both eyes [place] solution 00 2 (two) Medical times Branch daily. azelastine 2-0 Yes [id number] 1[drp] Place 1 [facility] 0.05 % 1-31 Drop in [facility] ophthalmic 00:00: both eyes [place] solution 00 2 (two) Medical times Branch daily. azelastine 2-0 Yes [id number] 1[drp] Place 1 [facility] 0.05 % 1-31 Drop in [facility]mic 00:00: both eyes [place] solution 00 2 (two) Medical times Branch daily. azelastine 2-0 Yes [id number] 1[drp] Place 1 [facility] 0.05 % 1-31 Drop in [facility]mic 00:00: both eyes [place] solution 00 2 (two) Medical times Branch daily. azelastine 2022-0 Yes [id number] 1[drp] Place 1 [facility] 0.05 % 1-31 Drop in [facility] ophthalmic 00:00: both eyes [place] solution 00 2 (two) Medical times Branch daily. azelastine 2022-0 Yes [id number] 1[drp] Place 1 [facility] 0.05 % 1-31 Drop in [facility] ophthalmic 00:00: both eyes [place] solution 00 2 (two) Medical times Branch daily. azelastine 2022-0 Yes [id number] 1[drp] Place 1 [facility] 0.05 % 1-31 Drop in [facility]mic 00:00: both eyes [place] solution 00 2 (two) Medical times Branch daily. azelastine 2022-0 Yes [id number] 1[drp] Place 1 [facility] 0.05 % 1-31 Drop in [facility] 00:00: both eyes [place] solution 00 2 (two) Medical times Branch daily. azelastine 2-0 Yes [id number] 1[drp] Place 1 [facility] 0.05 % 1-31 Drop in [facility] 00:00: both eyes [place] solution 00 2 (two) Medical times Branch daily. azelastine 2022-0 Yes [id number] 1[drp] Place 1 [facility] 0.05 % 1-31 Drop in [facility] 00:00: both eyes [place] solution 00 2 (two) Medical times Branch daily. azelastine 2-0 Yes [id number] 1[drp] Place 1 [facility] 0.05 % 1-31 Drop in [facility] 00:00: both eyes [place] solution 00 2 (two) Medical times Branch daily. azelastine 2-0 Yes [id number] 1[drp] Place 1 [facility] 0.05 % 1-31 Drop in [facility]mic 00:00: both eyes [place] solution 00 2 (two) Medical times Branch daily. azelastine 2-0 Yes [id number] 1[drp] Place 1 [facility] 0.05 % 1-31 Drop in [facility] 00:00: both eyes [place] solution 00 2 (two) Medical times Branch daily. azelastine 2-0 Yes [id number] 1[drp] Place 1 [facility] 0.05 % 1-31 Drop in [facility]mic 00:00: both eyes [place] solution 00 2 (two) Medical times Branch daily. azelastine 2022-0 Yes [id number] 1[drp] Place 1 [facility] 0.05 % 1-31 Drop in [facility]mic 00:00: both eyes [place] solution 00 2 (two) Medical times Branch daily. azelastine 2-0 Yes [id number] 1[drp] Place 1 [facility] 0.05 % 1-31 Drop in [facility]mic 00:00: both eyes [place] solution 00 2 (two) Medical times Branch daily. azelastine 2022-0 Yes [id number] 1[drp] Place 1 [facility] 0.05 % 1-31 Drop in [facility]mic 00:00: both eyes [place] solution 00 2 (two) Medical times Branch daily. azelastine 2-0 Yes [id number] 1[drp] Place 1 [facility] 0.05 % 1-31 Drop in [facility] of ophthalmic 00:00: both eyes [place] solution 00 2 (two) Medical times Branch daily. azelastine 2-0 Yes [id number] 1[drp] Place 1 [facility] 0.05 % 1-31 Drop in [facility] of ophthalmic 00:00: both eyes [place] solution 00 2 (two) Medical times Branch daily. azelastine 2-0 Yes [id number] 1[drp] Place 1 [facility] 0.05 % 1-31 Drop in [facility] of ophthalmic 00:00: both eyes [place] solution 00 2 (two) Medical times Branch daily. azelastine 2-0 Yes [id number] 1[drp] Place 1 [facility] 0.05 % 1-31 Drop in [facility] ophthalmic 00:00: both eyes [place] solution 00 2 (two) Medical times Branch daily. azelastine 2-0 Yes [id number] 1[drp] Place 1 [facility] 0.05 % 1-31 Drop in [facility]mic 00:00: both eyes [place] solution 00 2 (two) Medical times Branch daily. azelastine 2-0 Yes [id number] 1[drp] Place 1 [facility] 0.05 % 1-31 Drop in [facility] 00:00: both eyes [place] solution 00 2 (two) Medical times Branch daily. azelastine 2022-0 Yes [id number] 1[drp] Place 1 [facility] 0.05 % 1-31 Drop in [facility] 00:00: both eyes [place] solution 00 2 (two) Medical times Branch daily. azelastine 2-0 Yes [id number] 1[drp] Place 1 [facility] 0.05 % 1-31 Drop in [facility] 00:00: both eyes [place] solution 00 2 (two) Medical times [facility] daily. azelastine 2022-0 Yes [id number] 1[drp] Place 1 [facility] 0.05 % 1-31 Drop in [facility] 00:00: both eyes [place] solution 00 2 (two) Medical times Branch daily. azelastine 2022-0 Yes [id number] 1[drp] Place 1 [facility] 0.05 % 1-31 Drop in [facility] 00:00: both eyes [place] solution 00 2 (two) Medical times [facility] daily. azelastine 2022-0 Yes [id number] 1[drp] Place 1 [facility] 0.05 % 1-31 Drop in [facility] 00:00: both eyes [place] solution 00 2 (two) Medical times Branch daily. azelastine 2022-0 Yes [id number] 1[drp] Place 1 [facility] 0.05 % 1-31 Drop in [facility] 00:00: both eyes [place] solution 00 2 (two) Medical times Branch daily. azelastine 2-0 Yes [id number] 1[drp] Place 1 [facility] 0.05 % 1-31 Drop in [facility]mic 00:00: both eyes [place] solution 00 2 (two) Medical times Branch daily. azelastine 2022-0 Yes [id number] 1[drp] Place 1 [facility] 0.05 % 1-31 Drop in [facility]mic 00:00: both eyes [place] solution 00 2 (two) Medical times Branch daily. azelastine 2022-0 Yes [id number] 1[drp] Place 1 [facility] 0.05 % 1-31 Drop in [facility]mic 00:00: both eyes [place] solution 00 2 (two) Medical times Branch daily. azelastine 2022-0 Yes [id number] 1[drp] Place 1 [facility] 0.05 % 1-31 Drop in [facility]mic 00:00: both eyes [place] solution 00 2 (two) Medical times Branch daily. azelastine 2022-0 Yes [id number] 1[drp] Place 1 [facility] 0.05 % 1-31 Drop in [facility] 00:00: both eyes [place] solution 00 2 (two) Medical times Branch daily. azelastine 2022-0 Yes [id number] 1[drp] Place 1 [facility] 0.05 % 1-31 Drop in [facility]mic 00:00: both eyes [place] solution 00 2 (two) Medical times Branch daily. azelastine 2022-0 Yes [id number] 1[drp] Place 1 [facility] 0.05 % 1-31 Drop in [facility]mic 00:00: both eyes [place] solution 00 2 (two) Medical times Branch daily. azelastine 2-0 Yes [id number] 1[drp] Place 1 [facility] 0.05 % 1-31 Drop in [facility] 00:00: both eyes [place] solution 00 2 (two) Medical times [facility] daily. azelastine 2-0 Yes [id number] 1[drp] Place 1 [facility] 0.05 % 1-31 Drop in [facility] 00:00: both eyes [place] solution 00 2 (two) Medical times [facility] daily. azelastine 2021-0 Yes [id number] 1[drp] Place 1 [facility] 0.05 % 1-31 Drop in [facility] 00:00: both eyes [place] solution 00 2 (two) Medical times [facility] daily. azelastine 2-0 Yes [id number] 1[drp] Place 1 [facility] 0.05 % 1-31 Drop in [facility] 00:00: both eyes [place] solution 00 2 (two) Medical times [facility] daily. azelastine 2-0 Yes [id number] 1[drp] Place 1 [facility] 0.05 % 1-31 Drop in [facility] 00:00: both eyes [place] solution 00 2 (two) Medical times [facility] daily. azelastine 2-0 Yes [id number] 1[drp] Place 1 [facility] 0.05 % 1-31 Drop in [facility] 00:00: both eyes [place] solution 00 2 (two) Medical times [facility] daily. azelastine 2-0 Yes [id number] 1[drp] Place 1 [facility] 0.05 % 1-31 Drop in [facility] 00:00: both eyes [place] solution 00 2 (two) Medical times [facility] daily. azelastine 2-0 Yes [id number] 1[drp] Place 1 [facility] 0.05 % 1-31 Drop in [facility] 00:00: both eyes [place] solution 00 2 (two) Medical times [facility] daily. azelastine 2022-0 Yes [id number] 1[drp] Place 1 [facility] 0.05 % 1-31 Drop in [facility] 00:00: both eyes [place] solution 00 2 (two) Medical times [facility] daily. azelastine 2022-0 Yes [id number] 1[drp] Place 1 [facility] 0.05 % 1-31 Drop in [facility] 00:00: both eyes [place] solution 00 2 (two) Medical times [facility] daily. azelastine 2022-0 Yes [id number] 1[drp] Place 1 [facility] 0.05 % 1-31 Drop in [facility] 00:00: both eyes [place] solution 00 2 (two) Medical times [facility] daily. azelastine 2022-0 Yes [id number] 1[drp] Place 1 [facility] 0.05 % 1-31 Drop in [facility] 00:00: both eyes [place] solution 00 2 (two) Medical times [facility] daily. azelastine 2-0 Yes [id number] 1[drp] Place 1 [facility] 0.05 % 1-31 Drop in [facility] 00:00: both eyes [place] solution 00 2 (two) Medical times [facility] daily. azelastine 2022-0 Yes [id number] 1[drp] Place 1 [facility] 0.05 % 1-31 Drop in [facility] 00:00: both eyes [place] solution 00 2 (two) Medical times [facility] daily. azelastine 2022-0 Yes [id number] 1[drp] Place 1 [facility] 0.05 % 1-31 Drop in [facility] 00:00: both eyes [place] solution 00 2 (two) Medical times [facility] daily. azelastine 2022-0 Yes [id number] 1[drp] Place 1 [facility] 0.05 % 1-31 Drop in [facility] 00:00: both eyes [place] solution 00 2 (two) Medical times [facility] daily. azelastine 2022-0 Yes [id number] 1[drp] Place 1 [facility] 0.05 % 1-31 Drop in [facility] 00:00: both eyes [place] solution 00 2 (two) Medical times [facility] daily. azelastine 2022-0 Yes [id number] 1[drp] Place 1 [facility] 0.05 % 1-31 Drop in [facility] 00:00: both eyes [place] solution 00 2 (two) Medical times [facility] daily. azelastine 2-0 Yes [id number] 1[drp] Place 1 [facility] 0.05 % 1-31 Drop in [facility] 00:00: both eyes [place] solution 00 2 (two) Medical times [facility] daily. azelastine 2021-0 Yes [id number] 1[drp] Place 1 [facility] 0.05 % 1-31 Drop in [facility] 00:00: both eyes [place] [facility] 00 2 (two) [facility] times [facility] daily. azelastine 2021-0 Yes [id number] 1[drp] Place 1 [facility] 0.05 % 1-31 Drop in [facility] 00:00: both eyes [place] [facility] 00 2 (two) [facility] times [facility] daily. azelastine 2021-0 Yes [id number] 1[drp] Place 1 [facility] 0.05 % 1-31 Drop in [facility] 00:00: both eyes [place] [facility] 00 2 (two) [facility] times [facility] daily. azelastine 2021-0 Yes [id number] 1[drp] Place 1 [facility] 0.05 % 1-31 Drop in [facility] 00:00: both eyes [place] [facility] 00 2 (two) [facility] times [facility] daily. azelastine 2021-0 Yes [id number] 1[drp] Place 1 [facility] 0.05 % 1-31 Drop in [facility] 00:00: both eyes [place] [facility] 00 2 (two) Medical times [facility] daily. azelastine 2-0 Yes [id number] 1[drp] Place 1 [facility] 0.05 % 1-31 Drop in [facility] 00:00: both eyes [place] [facility] 00 2 (two) Medical times [facility] daily. azelastine 2-0 Yes [id number] 1[drp] Place 1 [facility] 0.05 % 1-31 Drop in [facility] 00:00: both eyes [place] [facility] 00 2 (two) Medical times [facility] daily. azelastine 2-0 Yes [id number] 1[drp] Place 1 [facility] 0.05 % 1-31 Drop in [facility] 00:00: both eyes [place] [facility] 00 2 (two) Medical times [facility] daily. azelastine 2022-0 Yes [id number] 1[drp] Place 1 [facility] 0.05 % 1-31 Drop in [facility] 00:00: both eyes [place] [facility] 00 2 (two) Medical times [facility] daily. azelastine 2022-0 Yes [id number] 1[drp] Place 1 [facility] 0.05 % 1-31 Drop in [facility] 00:00: both eyes [place] [facility] 00 2 (two) Medical times [facility] daily. azelastine 2022-0 Yes [id number] 1[drp] Place 1 [facility] 0.05 % 1-31 Drop in [facility] ophthal[facility] 00:00: both eyes [place] [facility] 00 2 (two) Medical times [facility] daily. azelastine 2-0 Yes [id number] 1[drp] Place 1 [facility] 0.05 % 1-31 Drop in [facility] 00:00: both eyes [place] [facility] 00 2 (two) Medical times [facility] daily. azelastine 2-0 Yes [id number] 1[drp] Place 1 [facility] 0.05 % 1-31 Drop in [facility] ophthal[facility] 00:00: both eyes [place] [facility] 00 2 (two) Medical times [facility] daily. azelastine 2022-0 Yes [id number] 1[drp] Place 1 [facility] 0.05 % 1-31 Drop in [facility] 00:00: both eyes [place] [facility] 00 2 (two) Medical times [facility] daily. azelastine 2-0 Yes [id number] 1[drp] Place 1 [facility] 0.05 % 1-31 Drop in [facility] ophthal[facility] 00:00: both eyes [place] [facility] 00 2 (two) Medical times [facility] daily. azelastine 2022-0 Yes [id number] 1[drp] Place 1 [facility] 0.05 % 1-31 Drop in [facility] ophthal[facility] 00:00: both eyes [place] [facility] 00 2 (two) Medical times [facility] daily. azelastine 2022-0 Yes [id number] 1[drp] Place 1 [facility] 0.05 % 1-31 Drop in [facility] ophthal[facility] 00:00: both eyes [place] [facility] 00 2 (two) Medical times [facility] daily. azelastine 2022-0 Yes [id number] 1[drp] Place 1 [facility] 0.05 % 1-31 Drop in [facility] ophthal[facility] 00:00: both eyes [place] [facility] 00 2 (two) [facility] times [facility] daily. azelastine 2-0 Yes [id number] 1[drp] Place 1 [facility] 0.05 % 1-31 Drop in [facility] ophthal[facility] 00:00: both eyes [place] [facility] 00 2 (two) Medical times [facility] daily. azelastine 2-0 Yes [id number] 1[drp] Place 1 [facility] 0.05 % 1-31 Drop in [facility] ophthal[facility] 00:00: both eyes [place] [facility] 00 2 (two) Medical times [facility] daily. azelastine 2-0 Yes [id number] 1[drp] Place 1 [facility] 0.05 % 1-31 Drop in [facility] ophthal[facility] 00:00: both eyes [place] [facility] 00 2 (two) Medical times [facility] daily. azelastine 2021-0 Yes [id number] 1[drp] Place 1 [facility] 0.05 % 1-31 Drop in [facility] 00:00: both eyes [place] [facility] 00 2 (two) Medical times [facility] daily. azelastine 2-0 Yes [id number] 1[drp] Place 1 [facility] 0.05 % 1-31 Drop in [facility] ophthal[facility] 00:00: both eyes [place] [facility] 00 2 (two) Medical times [facility] daily. azelastine 2-0 Yes [id number] 1[drp] Place 1 [facility] 0.05 % 1-31 Drop in [facility] ophthal[facility] 00:00: both eyes [place] [facility] 00 2 (two) Medical times [facility] daily. azelastine 2-0 Yes [id number] 1[drp] Place 1 [facility] 0.05 % 1-31 Drop in [facility] ophthal[facility] 00:00: both eyes [place] [facility] 00 2 (two) Medical times [facility] daily. azelastine 2022-0 Yes [id number] 1[drp] Place 1 [facility] 0.05 % 1-31 Drop in [facility] ophthal[facility] 00:00: both eyes [place] [facility] 00 2 (two) Medical times [facility] daily. azelastine 2-0 Yes [id number] 1[drp] Place 1 [facility] 0.05 % 1-31 Drop in [facility] ophthal[facility] 00:00: both eyes [place] [facility] 00 2 (two) Medical times [facility] daily. azelastine 2-0 Yes [id number] 1[drp] Place 1 [facility] 0.05 % 1-31 Drop in [facility] ophthal[facility] 00:00: both eyes [place] [facility] 00 2 (two) Medical times [facility] daily. azelastine 2-0 Yes [id number] 1[drp] Place 1 [facility] 0.05 % 1-31 Drop in [facility] ophthal[facility] 00:00: both eyes [place] [facility] 00 2 (two) Medical times [facility] daily. azelastine 2-0 Yes [id number] 1[drp] Place 1 [facility] 0.05 % 1-31 Drop in [facility] ophthalmic 00:00: both eyes [place] [facility] 00 2 (two) Medical times [facility] daily. azelastine 2-0 Yes [id number] 1[drp] Place 1 [facility] 0.05 % 1-31 Drop in [facility] ophthalmic 00:00: both eyes [place] [facility] 00 2 (two) Medical times [facility] daily. azelastine 2-0 Yes [id number] 1[drp] Place 1 [facility] 0.05 % 1-31 Drop in [facility] ophthal[facility] 00:00: both eyes [place] [facility] 00 2 (two) Medical times [facility] daily. azelastine 2-0 Yes [id number] 1[drp] Place 1 [facility] 0.05 % 1-31 Drop in [facility] ophthal[facility] 00:00: both eyes [place] [facility] 00 2 (two) Medical times [facility] daily. azelastine 2-0 Yes [id number] 1[drp] Place 1 [facility] 0.05 % 1-31 Drop in [facility] ophthalmic 00:00: both eyes [place] [facility] 00 2 (two) Medical times [facility] daily. azelastine 2-0 Yes [id number] 1[drp] Place 1 [facility] 0.05 % 1-31 Drop in [facility] 00:00: both eyes [place] [facility] 00 2 (two) Medical times [facility] daily. azelastine 2022-0 Yes [id number] 1[drp] Place 1 [facility] 0.05 % 1-31 Drop in [facility] ophthal[facility] 00:00: both eyes [place] [facility] 00 2 (two) Medical times [facility] daily. azelastine 2022-0 Yes [id number] 1[drp] Place 1 [facility] 0.05 % 1-31 Drop in [facility] ophthal[facility] 00:00: both eyes [place] [facility] 00 2 (two) Medical times [facility] daily. azelastine 2-0 Yes [id number] 1[drp] Place 1 [facility] 0.05 % 1-31 Drop in [facility] ophthal[facility] 00:00: both eyes [place] [facility] 00 2 (two) Medical times [facility] daily. azelastine 2-0 Yes [id number] 1[drp] Place 1 [facility] 0.05 % 1-31 Drop in [facility] ophthalmic 00:00: both eyes [place] [facility] 00 2 (two) Medical times [facility] daily. azelastine 2-0 Yes [id number] 1[drp] Place 1 [facility] 0.05 % 1-31 Drop in [facility] 00:00: both eyes [place] [facility] 00 2 (two) Medical times [facility] daily. lisinopriL 2020-04 Yes [id number] 20mg Take 1 [facility] 20 mg 1-24 tablet by [facility] of tablet 00:00: mouth (two) Medical times Branch daily. lisinopriL 2020-04 Yes [id number] 20mg Take 1 [facility] [place] 20 mg 1-24 tablet by [facility] of tablet 00:00: mouth (two) Medical times Branch daily. lisinopriL 2020-04 Yes [id number] 20mg Take 1 [facility] [place] 20 mg 1-24 tablet by [facility] of tablet 00:00: mouth 2 (two) Medical times Branch daily. lisinopriL 2020-04 Yes [id number] 20mg Take 1 [facility] [place] 20 mg 1-24 tablet by [facility] of tablet 00:00: mouth 2 (two) Medical times [facility] daily. lisinopriL 2020-04 Yes [id number] 20mg Take 1 [facility] [place] 20 mg 1-24 tablet by [facility] of tablet 00:00: mouth 2 (two) Medical times Branch daily. lisinopriL 2020-04 Yes [id number] 20mg Take 1 [facility] [place] 20 mg 1-24 tablet by [facility] of tablet 00:00: mouth 2 (two) Medical times Branch daily. lisinopriL 2020-04 Yes [id number] 20mg Take 1 [facility] [place] 20 mg 1-24 tablet by [facility] of tablet 00:00: mouth (two) Medical times Branch daily. lisinopriL 2020-04 Yes [id number] 20mg Take 1 [facility] [place] 20 mg 1-24 tablet by [facility] of tablet 00:00: mouth (two) Medical times Branch daily. lisinopriL 2020-04 Yes [id number] 20mg Take 1 [facility] [place] 20 mg 1-24 tablet by [facility] of tablet 00:00: mouth (two) Medical times Branch daily. lisinopriL 2020-04 Yes [id number] 20mg Take 1 [facility] [place] 20 mg 1-24 tablet by [facility] of tablet 00:00: mouth (two) Medical times Branch daily. lisinopriL 2020-04 Yes [id number] 20mg Take 1 [facility] [place] 20 mg 1-24 tablet by [facility] of tablet 00:00: mouth (two) Medical times Branch daily. lisinopriL 2020-04 Yes [id number] 20mg Take 1 [facility] [place] 20 mg 1-24 tablet by [facility] of tablet 00:00: mouth (two) Medical times Branch daily. lisinopriL 2020-04 Yes [id number] 20mg Take 1 [facility] [place] 20 mg 1-24 tablet by [facility]y of tablet 00:00: mouth (two) Medical times Branch daily. lisinopriL 2020-04 Yes [id number] 20mg Take 1 [facility] [place] 20 mg 1-24 tablet by [facility] of tablet 00:00: mouth (two) Medical times Branch daily. lisinopriL 2020-04 Yes [id number] 20mg Take 1 [facility] [place] 20 mg 1-24 tablet by [facility] of tablet 00:00: mouth (two) Medical times Branch daily. lisinopriL 2020-04 Yes [id number] 20mg Take 1 [facility] [place] 20 mg 1-24 tablet by [facility] of tablet 00:00: mouth (two) Medical times Branch daily. lisinopriL 2020-04 Yes [id number] 20mg Take 1 [facility] [place] 20 mg 1-24 tablet by [facility] of tablet 00:00: mouth (two) Medical times Branch daily. lisinopriL 2020-04 Yes [id number] 20mg Take 1 [facility] [place] 20 mg 1-24 tablet by [facility] of tablet 00:00: mouth (two) Medical times Branch daily. lisinopriL 2020-04 Yes [id number] 20mg Take 1 [facility] [place] 20 mg 1-24 tablet by [facility] of tablet 00:00: mouth (two) Medical times Branch daily. lisinopriL 2020-04 Yes [id number] 20mg Take 1 [facility] [place] 20 mg 1-24 tablet by [facility] of tablet 00:00: mouth (two) Medical times Branch daily. lisinopriL 2020-04 Yes [id number] 20mg Take 1 [facility] [place] 20 mg 1-24 tablet by [facility] of tablet 00:00: mouth (two) Medical times Branch daily. lisinopriL 2020-04 Yes [id number] 20mg Take 1 [facility] [place] 20 mg 1-24 tablet by [facility]y of tablet 00:00: mouth (two) Medical times Branch daily. lisinopriL 2020-04 Yes [id number] 20mg Take 1 [facility] [place] 20 mg 1-24 tablet by [facility]y of tablet 00:00: mouth (two) Medical times Branch daily. lisinopriL 2020-04 Yes [id number] 20mg Take 1 [facility] [place] 20 mg 1-24 tablet by [facility]y of tablet 00:00: mouth (two) Medical times Branch daily. lisinopriL 2020-04 Yes [id number] 20mg Take 1 [facility] [place] 20 mg 1-24 tablet by [facility]y of tablet 00:00: mouth (two) Medical times Branch daily. lisinopriL 2020-04 Yes [id number] 20mg Take 1 [facility] [place] 20 mg 1-24 tablet by [facility]y of tablet 00:00: mouth (two) Medical times Branch daily. lisinopriL 2020-04 Yes [id number] 20mg Take 1 [facility] [place] 20 mg 1-24 tablet by [facility]y of tablet 00:00: mouth (two) Medical times Branch daily. lisinopriL 2020-04 Yes [id number] 20mg Take 1 [facility] [place] 20 mg 1-24 tablet by [facility]y of tablet 00:00: mouth (two) Medical times Branch daily. lisinopriL 2020-04 Yes [id number] 20mg Take 1 [facility] [place] 20 mg 1-24 tablet by [facility]y of tablet 00:00: mouth (two) Medical times Branch daily. lisinopriL 2020-04 Yes [id number] 20mg Take 1 [facility] [place] 20 mg 1-24 tablet by [facility]y of tablet 00:00: mouth (two) Medical times Branch daily. lisinopriL 2020-04 Yes [id number] 20mg Take 1 [facility] [place] 20 mg 1-24 tablet by [facility]y of tablet 00:00: mouth (two) Medical times Branch daily. lisinopriL 2020-04 Yes [id number] 20mg Take 1 [facility] [place] 20 mg 1-24 tablet by [facility]y of tablet 00:00: mouth (two) Medical times Branch daily. lisinopriL 2020-04 Yes [id number] 20mg Take 1 [facility] [place] 20 mg 1-24 tablet by [facility]y of tablet 00:00: mouth (two) Medical times Branch daily. lisinopriL 2020-04 Yes [id number] 20mg Take 1 [facility] [place] 20 mg 1-24 tablet by [facility]y of tablet 00:00: mouth (two) Medical times Branch daily. lisinopriL 2020-04 Yes [id number] 20mg Take 1 [facility] [place] 20 mg 1-24 tablet by [facility]y of tablet 00:00: mouth (two) Medical times Branch daily. lisinopriL 2020-04 Yes [id number] 20mg Take 1 [facility] [place] 20 mg 1-24 tablet by [facility]y of tablet 00:00: mouth (two) Medical times Branch daily. lisinopriL 2020-04 Yes [id number] 20mg Take 1 [facility] [place] 20 mg 1-24 tablet by [facility]y of tablet 00:00: mouth (two) Medical times Branch daily. lisinopriL 2020- Yes [id number] 20mg Take 1 [facility] [place] 20 mg 1-24 tablet by [facility]y of tablet 00:00: mouth (two) Medical times Branch daily. lisinopriL 2020- Yes [id number] 20mg Take 1 [facility] [place] 20 mg 1-24 tablet by [facility]y of tablet 00:00: mouth 2 00 (two) Medical times [place] daily. lisinopriL 2020-04 Yes [id number] 20mg Take 1 [facility] 20 mg 1-24 tablet by ity of tablet 00:00: mouth 2 00 (two) Medical times [place] daily. lisinopriL 2020-04- No [id number] 20mg Take 1 [facility] 20 mg 1-24 12-14 tablet by ity of tablet 00:00: 00:00 mouth 2 [place] 00 :00 (two) Medical times [place] daily. fluocinonid 2020-0 Yes [id number] Apply to [facility] 0.05 % 6-03 area(s) 2 ity of cream 00:00: (two) [place] times Medical daily. Branch fluocinonid 2020-0 Yes [id number] Apply to [facility] e 0.05 % 6-03 area(s) 2 ity of cream 00:00: (two) [place] times Medical daily. Branch fluocinonid 2020-0 Yes [id number] Apply to [facility] e 0.05 % 6-03 area(s) 2 ity of cream 00:00: (two) [place] times Medical daily. Branch fluocinonid 2020-0 Yes [id number] Apply to [facility] e 0.05 % 6-03 area(s) 2 ity of cream 00:00: (two) [place] times Medical daily. Branch fluocinonid 2020-0 Yes [id number] Apply to [facility] e 0.05 % 6-03 area(s) 2 ity of cream 00:00: (two) [place] times Medical daily. Branch fluocinonid 2020-0 Yes [id number] Apply to [facility] e 0.05 % 6-03 area(s) 2 ity of cream 00:00: (two) [place] times Medical daily. Branch fluocinonid 2020-0 Yes [id number] Apply to [facility] e 0.05 % 6-03 area(s) 2 ity of cream 00:00: (two) [place] times Medical daily. Branch fluocinonid 2020-0 Yes [id number] Apply to [facility] e 0.05 % 6-03 area(s) 2 ity of cream 00:00: (two) [place] times Medical daily. Branch fluocinonid 2020-0 Yes [id number] Apply to [facility] e 0.05 % 6-03 area(s) 2 ity of cream 00:00: (two) [place] 00 times Medical daily. Branch fluocinonid 2021-0 Yes [id number] Apply to [facility] e 0.05 % 6-03 area(s) 2 ity of cream 00:00: (two) [place] 00 times Medical daily. Branch fluocinonid 2021-0 Yes [id number] Apply to [facility] e 0.05 % 6-03 area(s) 2 ity of cream 00:00: (two) [place] 00 times Medical daily. Branch fluocinonid 2021-0 Yes [id number] Apply to [facility] e 0.05 % 6-03 area(s) 2 ity of cream 00:00: (two) [place] 00 times Medical daily. Branch fluocinonid 1-0 Yes [id number] Apply to [facility] e 0.05 % 6-03 area(s) 2 ity of cream 00:00: (two) [place] 00 times Medical daily. Branch fluocinonid 1-0 Yes [id number] Apply to [facility] e 0.05 % 6-03 area(s) 2 ity of cream 00:00: (two) [place] 00 times Medical daily. Branch fluocinonid 1-0 Yes [id number] Apply to [facility] e 0.05 % 6-03 area(s) 2 ity of cream 00:00: (two) [place] 00 times Medical daily. Branch fluocinonid 2021-0 Yes [id number] Apply to [facility] e 0.05 % 6-03 area(s) 2 ity of cream 00:00: (two) [place] 00 times Medical daily. Branch fluocinonid 2021-0 Yes [id number] Apply to [facility] e 0.05 % 6-03 area(s) 2 ity of cream 00:00: (two) [place] 00 times Medical daily. Branch fluocinonid 2021-0 Yes [id number] Apply to [facility] e 0.05 % 6-03 area(s) 2 ity of cream 00:00: (two) [place] 00 times Medical daily. Branch fluocinonid 2021-0 Yes [id number] Apply to [facility] e 0.05 % 6-03 area(s) 2 ity of cream 00:00: (two) [place] 00 times Medical daily. Branch fluocinonid 2021-0 Yes [id number] Apply to [facility] e 0.05 % 6-03 area(s) 2 ity of cream 00:00: (two) [place] 00 times Medical daily. Branch fluocinonid 2021-0 Yes [id number] Apply to [facility] e 0.05 % 6-03 area(s) 2 ity of cream 00:00: (two) [place] 00 times Medical daily. Branch fluocinonid 2021-0 Yes [id number] Apply to [facility] e 0.05 % 6-03 area(s) 2 ity of cream 00:00: (two) [place] 00 times Medical daily. Branch fluocinonid 2021-0 Yes [id number] Apply to [facility] e 0.05 % 6-03 area(s) 2 ity of cream 00:00: (two) [place] 00 times Medical daily. Branch fluocinonid 2021-0 Yes [id number] Apply to [facility] e 0.05 % 6-03 area(s) 2 ity of cream 00:00: (two) [place] 00 times Medical daily. Branch fluocinonid 1-0 Yes [id number] Apply to [facility] e 0.05 % 6-03 area(s) 2 ity of cream 00:00: (two) [place] 00 times Medical daily. Branch fluocinonid 1-0 Yes [id number] Apply to [facility] e 0.05 % 6-03 area(s) 2 ity of cream 00:00: (two) [place] 00 times Medical daily. Branch fluocinonid 2021-0 Yes [id number] Apply to [facility] e 0.05 % 6-03 area(s) 2 ity of cream 00:00: (two) [place] 00 times Medical daily. Branch fluocinonid 2021-0 Yes [id number] Apply to [facility] e 0.05 % 6-03 area(s) 2 ity of cream 00:00: (two) [place] 00 times Medical daily. Branch fluocinonid 2021-0 Yes [id number] Apply to [facility] e 0.05 % 6-03 area(s) 2 ity of cream 00:00: (two) [place] 00 times Medical daily. Branch fluocinonid 2021-0 Yes [id number] Apply to [facility] e 0.05 % 6-03 area(s) 2 ity of cream 00:00: (two) [place] 00 times Medical daily. Branch fluocinonid 2021-0 Yes [id number] Apply to [facility] e 0.05 % 6-03 area(s) 2 ity of cream 00:00: (two) [place] 00 times Medical daily. Branch fluocinonid 2021-0 Yes [id number] Apply to [facility] e 0.05 % 6-03 area(s) 2 ity of cream 00:00: (two) [place] 00 times Medical daily. Branch fluocinonid 2021-0 Yes [id number] Apply to [facility] e 0.05 % 6-03 area(s) 2 ity of cream 00:00: (two) [place] 00 times Medical daily. Branch fluocinonid 1-0 Yes [id number] Apply to [facility] e 0.05 % 6-03 area(s) 2 ity of cream 00:00: (two) [place] 00 times Medical daily. Branch fluocinonid 1-0 Yes [id number] Apply to [facility] e 0.05 % 6-03 area(s) 2 ity of cream 00:00: (two) [place] 00 times Medical daily. Branch fluocinonid 1-0 Yes [id number] Apply to [facility] e 0.05 % 6-03 area(s) 2 ity of cream 00:00: (two) [place] 00 times Medical daily. Branch fluocinonid 1-0 Yes [id number] Apply to [facility] e 0.05 % 6-03 area(s) 2 ity of cream 00:00: (two) [place] 00 times Medical daily. Branch fluocinonid 2021-0 Yes [id number] Apply to [facility] e 0.05 % 6-03 area(s) 2 ity of cream 00:00: (two) [place] 00 times Medical daily. Branch fluocinonid 2021-0 Yes [id number] Apply to [facility] e 0.05 % 6-03 area(s) 2 ity of cream 00:00: (two) [place] 00 times Medical daily. Branch fluocinonid 2021-0 Yes [id number] Apply to [facility] e 0.05 % 6-03 area(s) 2 ity of cream 00:00: (two) [place] 00 times Medical daily. Branch fluocinonid 2021-0 Yes [id number] Apply to [facility] e 0.05 % 6-03 area(s) 2 ity of cream 00:00: (two) [place] 00 times Medical daily. Branch fluocinonid 1-0 Yes [id number] Apply to [facility] e 0.05 % 6-03 area(s) 2 ity of cream 00:00: (two) [place] 00 times Medical daily. Branch fluocinonid 1-0 Yes [id number] Apply to [facility] e 0.05 % 6-03 area(s) 2 ity of cream 00:00: (two) [place] 00 times Medical daily. Branch fluocinonid 1-0 Yes [id number] Apply to [facility] e 0.05 % 6-03 area(s) 2 ity of cream 00:00: (two) [place] 00 times Medical daily. Branch fluocinonid 1-0 Yes [id number] Apply to [facility] e 0.05 % 6-03 area(s) 2 ity of cream 00:00: (two) [place] 00 times Medical daily. Branch fluocinonid 2020-0 Yes [id number] Apply to [facility] e 0.05 % 6-03 area(s) 2 ity of cream 00:00: (two) [place] 00 times Medical daily. Branch fluocinonid 1-0 Yes [id number] Apply to [facility] e 0.05 % 6-03 area(s) 2 ity of cream 00:00: (two) [place] 00 times Medical daily. Branch fluocinonid 1-0 Yes [id number] Apply to [facility] e 0.05 % 6-03 area(s) 2 ity of cream 00:00: (two) [place] 00 times Medical daily. Branch fluocinonid 1-0 Yes [id number] Apply to [facility] e 0.05 % 6-03 area(s) 2 ity of cream 00:00: (two) [place] 00 times Medical daily. Branch fluocinonid 2021-0 Yes [id number] Apply to [facility] e 0.05 % 6-03 area(s) 2 ity of cream 00:00: (two) [place] 00 times Medical daily. Branch fluocinonid 1-0 Yes [id number] Apply to [facility] e 0.05 % 6-03 area(s) 2 ity of cream 00:00: (two) [place] 00 times Medical daily. Branch fluocinonid 2021-0 Yes [id number] Apply to [facility] e 0.05 % 6-03 area(s) 2 ity of cream 00:00: (two) [place] 00 times Medical daily. Branch fluocinonid 2021-0 Yes [id number] Apply to [facility] e 0.05 % 6-03 area(s) 2 ity of cream 00:00: (two) [place] 00 times Medical daily. Branch fluocinonid 2021-0 Yes [id number] Apply to [facility] e 0.05 % 6-03 area(s) 2 ity of cream 00:00: (two) [place] 00 times Medical daily. Branch fluocinonid 1-0 Yes [id number] Apply to [facility] e 0.05 % 6-03 area(s) 2 ity of cream 00:00: (two) [place] 00 times Medical daily. Branch fluocinonid 1-0 Yes [id number] Apply to [facility] e 0.05 % 6-03 area(s) 2 ity of cream 00:00: (two) [place] 00 times Medical daily. Branch fluocinonid 1-0 Yes [id number] Apply to [facility] e 0.05 % 6-03 area(s) 2 ity of cream 00:00: (two) [place] 00 times Medical daily. Branch fluocinonid 1-0 Yes [id number] Apply to [facility] e 0.05 % 6-03 area(s) 2 ity of cream 00:00: (two) [place] 00 times Medical daily. Branch fluocinonid 2021-0 Yes [id number] Apply to [facility] e 0.05 % 6-03 area(s) 2 ity of cream 00:00: (two) [place] 00 times Medical daily. Branch fluocinonid 2021-0 Yes [id number] Apply to [facility] e 0.05 % 6-03 area(s) 2 ity of cream 00:00: (two) [place] 00 times Medical daily. Branch fluocinonid 2021-0 Yes [id number] Apply to [facility] e 0.05 % 6-03 area(s) 2 ity of cream 00:00: (two) [place] 00 times Medical daily. Branch fluocinonid 2021-0 Yes [id number] Apply to [facility] e 0.05 % 6-03 area(s) 2 ity of cream 00:00: (two) [place] 00 times Medical daily. Branch fluocinonid 2021-0 Yes [id number] Apply to [facility] e 0.05 % 6-03 area(s) 2 ity of cream 00:00: (two) [place] 00 times Medical daily. Branch fluocinonid 2021-0 Yes [id number] Apply to [facility] e 0.05 % 6-03 area(s) 2 ity of cream 00:00: (two) [place] 00 times Medical daily. Branch fluocinonid 2021-0 Yes [id number] Apply to [facility] e 0.05 % 6-03 area(s) 2 ity of cream 00:00: (two) [place] 00 times Medical daily. Branch fluocinonid 1-0 Yes [id number] Apply to [facility] e 0.05 % 6-03 area(s) 2 ity of cream 00:00: (two) [place] 00 times Medical daily. Branch fluocinonid 2021-0 Yes [id number] Apply to [facility] e 0.05 % 6-03 area(s) 2 ity of cream 00:00: (two) [place] 00 times Medical daily. Branch fluocinonid 1-0 Yes [id number] Apply to [facility] e 0.05 % 6-03 area(s) 2 ity of cream 00:00: (two) [place] 00 times Medical daily. Branch fluocinonid 2021-0 Yes [id number] Apply to [facility] e 0.05 % 6-03 area(s) 2 ity of cream 00:00: (two) [place] 00 times Medical daily. Branch fluocinonid 2021-0 Yes [id number] Apply to [facility] e 0.05 % 6-03 area(s) 2 ity of cream 00:00: (two) [place] 00 times Medical daily. Branch fluocinonid 2021-0 Yes [id number] Apply to [facility] e 0.05 % 6-03 area(s) 2 ity of cream 00:00: (two) [place] 00 times Medical daily. Branch fluocinonid 2021-0 Yes [id number] Apply to [facility] e 0.05 % 6-03 area(s) 2 ity of cream 00:00: (two) [place] 00 times Medical daily. Branch fluocinonid 2021-0 Yes [id number] Apply to [facility] e 0.05 % 6-03 area(s) 2 ity of cream 00:00: (two) [place] 00 times Medical daily. Branch fluocinonid 2021-0 Yes [id number] Apply to [facility] e 0.05 % 6-03 area(s) 2 ity of cream 00:00: (two) [place] 00 times Medical daily. Branch fluocinonid 2021-0 Yes [id number] Apply to [facility] e 0.05 % 6-03 area(s) 2 ity of cream 00:00: (two) [place] 00 times Medical daily. Branch fluocinonid 2021-0 Yes [id number] Apply to [facility] e 0.05 % 6-03 area(s) 2 ity of cream 00:00: (two) [place] 00 times Medical daily. Branch fluocinonid 2021-0 Yes [id number] Apply to [facility] e 0.05 % 6-03 area(s) 2 ity of cream 00:00: (two) [place] 00 times Medical daily. Branch fluocinonid 1-0 Yes [id number] Apply to [facility] e 0.05 % 6-03 area(s) 2 ity of cream 00:00: (two) [place] 00 times Medical daily. Branch fluocinonid 1-0 Yes [id number] Apply to [facility] e 0.05 % 6-03 area(s) 2 ity of cream 00:00: (two) [place] 00 times Medical daily. Branch fluocinonid 1-0 Yes [id number] Apply to [facility] e 0.05 % 6-03 area(s) 2 ity of cream 00:00: (two) [place] 00 times Medical daily. Branch fluocinonid 2021-0 Yes [id number] Apply to [facility] e 0.05 % 6-03 area(s) 2 ity of cream 00:00: (two) [place] 00 times Medical daily. Branch fluocinonid 2021-0 Yes [id number] Apply to [facility] e 0.05 % 6-03 area(s) 2 ity of cream 00:00: (two) [place] 00 times Medical daily. Branch fluocinonid 2021-0 Yes [id number] Apply to [facility] e 0.05 % 6-03 area(s) 2 ity of cream 00:00: (two) [place] 00 times Medical daily. Branch fluocinonid 2021-0 Yes [id number] Apply to [facility] e 0.05 % 6-03 area(s) 2 ity of cream 00:00: (two) [place] 00 times Medical daily. Branch fluocinonid 2021-0 Yes [id number] Apply to [facility] e 0.05 % 6-03 area(s) 2 ity of cream 00:00: (two) [place] 00 times Medical daily. Branch fluocinonid 2021-0 Yes [id number] Apply to [facility] e 0.05 % 6-03 area(s) 2 ity of cream 00:00: (two) [place] 00 times Medical daily. Branch fluocinonid 2021-0 Yes [id number] Apply to [facility] e 0.05 % 6-03 area(s) 2 ity of cream 00:00: (two) [place] 00 times Medical daily. Branch fluocinonid 2021-0 Yes [id number] Apply to [facility] e 0.05 % 6-03 area(s) 2 ity of cream 00:00: (two) [place] 00 times Medical daily. Branch fluocinonid 2021-0 Yes [id number] [facility] to [facility] 0.05 % 6-03 area(s) 2 ity of cream 00:00: (two) [place] 00 times Medical daily. Branch fluocinonid 2021-0 Yes [id number] Apply to [facility] 0.05 % 6-03 area(s) 2 ity of cream 00:00: (two) [place] 00 times Medical daily. Branch fluocinonid 2021-0 Yes [id number] Apply to [facility] 0.05 % 6-03 area(s) 2 ity of cream 00:00: (two) [place] 00 times Medical daily. Branch fluocinonid 2021-0 Yes [id number] Apply to [facility] 0.05 % 6-03 area(s) 2 ity of cream 00:00: (two) [place] 00 times Medical daily. Branch fluocinonid 2021-0 Yes [id number] Apply to [facility] 0.05 % 6-03 area(s) 2 ity of cream 00:00: (two) [place] 00 times Medical daily. Branch fluocinonid 2021-0 Yes [id number] Apply to [facility] 0.05 % 6-03 area(s) 2 ity of cream 00:00: (two) [place] 00 times Medical daily. Branch fluocinonid 2021-0 Yes [id number] Apply to [facility] 0.05 % 6-03 area(s) 2 ity of cream 00:00: (two) [place] 00 times Medical daily. Branch fluocinonid 2021-0 Yes [id number] Apply to [facility] 0.05 % 6-03 area(s) 2 ity of cream 00:00: (two) [place] 00 times Medical daily. Branch fluocinonid 2021-0 Yes [id number] Apply to [facility] 0.05 % 6-03 area(s) 2 ity of cream 00:00: (two) [place] 00 times Medical daily. Branch fluocinonid 1-0 Yes [id number] Apply to [facility] 0.05 % 6-03 area(s) 2 ity of cream 00:00: (two) [place] 00 times Medical daily. Branch fluocinonid 1-0 Yes [id number] Apply to [facility] 0.05 % 6-03 area(s) 2 ity of cream 00:00: (two) [place] 00 times Medical daily. Branch fluocinonid 1-0 Yes [id number] Apply to [facility] 0.05 % 6-03 area(s) 2 ity of cream 00:00: (two) [place] 00 times Medical daily. Branch fluocinonid 2021-0 Yes [id number] Apply to [facility] 0.05 % 6-03 area(s) 2 ity of cream 00:00: (two) [place] 00 times Medical daily. Branch fluocinonid 2021-0 Yes [id number] Apply to [facility] 0.05 % 6-03 area(s) 2 ity of cream 00:00: (two) [place] 00 times Medical daily. Branch fluocinonid 2021-0 Yes [id number] Apply to [facility] 0.05 % 6-03 area(s) 2 ity of cream 00:00: (two) [place] 00 times Medical daily. Branch fluocinonid 2021-0 Yes [id number] Apply to [facility] 0.05 % 6-03 area(s) 2 ity of cream 00:00: (two) [place] 00 times Medical daily. Branch fluocinonid 2021-0 Yes [id number] Apply to [facility] 0.05 % 6-03 area(s) 2 ity of cream 00:00: (two) [place] 00 times Medical daily. Branch fluocinonid 2021-0 Yes [id number] Apply to [facility] 0.05 % 6-03 area(s) 2 ity of cream 00:00: (two) [place] 00 times Medical daily. Branch fluocinonid 2021-0 Yes [id number] Apply to [facility] 0.05 % 6-03 area(s) 2 ity of cream 00:00: (two) [place] 00 times Medical daily. Branch fluocinonid 2021-0 Yes [id number] Apply to [facility] 0.05 % 6-03 area(s) 2 ity of cream 00:00: (two) [place] 00 times Medical daily. Branch fluocinonid 2021-0 Yes [id number] Apply to [facility] 0.05 % 6-03 area(s) 2 ity of cream 00:00: (two) [place] 00 times Medical daily. Branch fluocinonid 1-0 Yes [id number] Apply to [facility] 0.05 % 6-03 area(s) 2 ity of cream 00:00: (two) [place] 00 times Medical daily. Branch fluocinonid 1-0 Yes [id number] Apply to [facility] 0.05 % 6-03 area(s) 2 ity of cream 00:00: (two) [place] 00 times Medical daily. Branch fluocinonid 2021-0 Yes [id number] Apply to [facility] 0.05 % 6-03 area(s) 2 ity of cream 00:00: (two) [place] 00 times Medical daily. Branch fluocinonid 2021-0 Yes [id number] Apply to [facility] 0.05 % 6-03 area(s) 2 ity of cream 00:00: (two) [place] 00 times Medical daily. Branch fluocinonid 2021-0 Yes [id number] Apply to [facility] 0.05 % 6-03 area(s) 2 ity of cream 00:00: (two) [place] 00 times Medical daily. Branch fluocinonid 2021-0 Yes [id number] Apply to [facility] 0.05 % 6-03 area(s) 2 ity of cream 00:00: (two) [place] 00 times Medical daily. Branch fluocinonid 2021-0 Yes [id number] Apply to [facility] 0.05 % 6-03 area(s) 2 ity of cream 00:00: (two) [place] 00 times Medical daily. Branch fluocinonid 2021-0 Yes [id number] Apply to [facility] 0.05 % 6-03 area(s) 2 ity of cream 00:00: (two) [place] 00 times Medical daily. Branch fluocinonid 2021-0 Yes [id number] Apply to [facility] 0.05 % 6-03 area(s) 2 ity of cream 00:00: (two) [place] 00 times Medical daily. Branch fluocinonid 2021-0 Yes [id number] Apply to [facility] 0.05 % 6-03 area(s) 2 ity of cream 00:00: (two) [place] 00 times Medical daily. Branch fluocinonid 2021-0 Yes [id number] Apply to [facility] 0.05 % 6-03 area(s) 2 ity of cream 00:00: (two) [place] 00 times Medical daily. Branch fluocinonid 2021-0 Yes [id number] Apply to [facility] 0.05 % 6-03 area(s) 2 ity of cream 00:00: (two) [place] 00 times Medical daily. Branch fluocinonid 1-0 Yes [id number] Apply to [facility] 0.05 % 6-03 area(s) 2 ity of cream 00:00: (two) [place] 00 times Medical daily. Branch fluocinonid 2021-0 Yes [id number] Apply to [facility] 0.05 % 6-03 area(s) 2 ity of cream 00:00: (two) [place] 00 times Medical daily. Branch fluocinonid 2021-0 Yes [id number] Apply to [facility] 0.05 % 6-03 area(s) 2 ity of cream 00:00: (two) [place] 00 times Medical daily. Branch fluocinonid 2021-0 Yes [id number] Apply to [facility] 0.05 % 6-03 area(s) 2 ity of cream 00:00: (two) [place] 00 times Medical daily. Branch fluocinonid 2021-0 Yes [id number] Apply to [facility] 0.05 % 6-03 area(s) 2 ity of cream 00:00: (two) [place] 00 times Medical daily. Branch fluocinonid 1-0 Yes [id number] Apply to [facility] 0.05 % 6-03 area(s) 2 ity of cream 00:00: (two) [place] 00 times Medical daily. Branch fluocinonid 1-0 Yes [id number] Apply to [facility] 0.05 % 6-03 area(s) 2 ity of cream 00:00: (two) [place] 00 times Medical daily. Branch fluocinonid 2020-0 Yes [id number] Apply to [facility] 0.05 % 6-03 area(s) 2 ity of cream 00:00: (two) [place] 00 times Medical daily. Branch fluocinonid 2020-0 Yes [id number] Apply to [facility] 0.05 % 6-03 area(s) 2 ity of cream 00:00: (two) [place] 00 times Medical daily. Branch fluocinonid 2020-0 Yes [id number] Apply to [facility] 0.05 % 6-03 area(s) 2 ity of cream 00:00: (two) [place] 00 times Medical daily. Branch fluocinonid 2020-0 Yes [id number] Apply to [facility] 0.05 % 6-03 area(s) 2 ity of cream 00:00: (two) [place] 00 times Medical daily. Branch fluocinonid 1-0 Yes [id number] Apply to [facility] 0.05 % 6-03 area(s) 2 ity of cream 00:00: (two) [place] 00 times Medical daily. Branch fluocinonid 1-0 Yes [id number] Apply to [facility] 0.05 % 6-03 area(s) 2 ity of cream 00:00: (two) [place] 00 times Medical daily. Branch fluocinonid 2021-0 Yes [id number] Apply to [facility] 0.05 % 6-03 area(s) 2 ity of cream 00:00: (two) [place] 00 times Medical daily. Branch fluocinonid 2021-0 Yes [id number] Apply to [facility] 0.05 % 6-03 area(s) 2 ity of cream 00:00: (two) [place] 00 times Medical daily. Branch fluocinonid 2021-0 Yes [id number] Apply to [facility] 0.05 % 6-03 area(s) 2 ity of cream 00:00: (two) [place] 00 times Medical daily. Branch fluocinonid 2021-0 Yes [id number] Apply to [facility] 0.05 % 6-03 area(s) 2 ity of cream 00:00: (two) [place] 00 times Medical daily. Branch fluocinonid 2021-0 Yes [id number] Apply to [facility] 0.05 % 6-03 area(s) 2 ity of cream 00:00: (two) [place] 00 times Medical daily. Branch fluocinonid 2021-0 Yes [id number] Apply to [facility] 0.05 % 6-03 area(s) 2 ity of cream 00:00: (two) [place] 00 times Medical daily. Branch fluocinonid 2021-0 Yes [id number] Apply to [facility] 0.05 % 6-03 area(s) 2 ity of cream 00:00: (two) [place] 00 times Medical daily. Branch fluocinonid 1-0 Yes [id number] Apply to [facility] 0.05 % 6-03 area(s) 2 ity of cream 00:00: (two) [place] 00 times Medical daily. Branch fluocinonid 1-0 Yes [id number] Apply to [facility] 0.05 % 6-03 area(s) 2 ity of cream 00:00: (two) [place] 00 times Medical daily. Branch fluocinonid 2021-0 Yes [id number] Apply to [facility] 0.05 % 6-03 area(s) 2 ity of cream 00:00: (two) [place] 00 times Medical daily. Branch fluocinonid 2021-0 Yes [id number] Apply to [facility] 0.05 % 6-03 area(s) 2 ity of cream 00:00: (two) [place] 00 times Medical daily. Branch fluocinonid 2021-0 Yes [id number] Apply to [facility] 0.05 % 6-03 area(s) 2 ity of cream 00:00: (two) [place] 00 times Medical daily. Branch fluocinonid 2021-0 Yes [id number] Apply to [facility] 0.05 % 6-03 area(s) 2 ity of cream 00:00: (two) [place] 00 times Medical daily. Branch fluocinonid 2021-0 Yes [id number] Apply to [facility] 0.05 % 6-03 area(s) 2 ity of cream 00:00: (two) [place] 00 times Medical daily. Branch fluocinonid 2021-0 Yes [id number] Apply to [facility] 0.05 % 6-03 area(s) 2 ity of cream 00:00: (two) [place] 00 times Medical daily. Branch fluocinonid 2021-0 Yes [id number] Apply to [facility] 0.05 % 6-03 area(s) 2 ity of cream 00:00: (two) [place] 00 times Medical daily. Branch fluocinonid 2021-0 Yes [id number] Apply to [facility] 0.05 % 6-03 area(s) 2 ity of cream 00:00: (two) [place] 00 times Medical daily. Branch fluocinonid 1-0 Yes [id number] Apply to [facility] 0.05 % 6-03 area(s) 2 ity of cream 00:00: (two) [place] 00 times Medical daily. Branch fluocinonid 2021-0 Yes [id number] Apply to [facility] 0.05 % 6-03 area(s) 2 ity of cream 00:00: (two) [place] 00 times Medical daily. Branch fluocinonid 1-0 Yes [id number] Apply to [facility] 0.05 % 6-03 area(s) 2 ity of cream 00:00: (two) [place] 00 times Medical daily. Branch fluocinonid 2021-0 Yes [id number] Apply to [facility] 0.05 % 6-03 area(s) 2 ity of cream 00:00: (two) [place] 00 times Medical daily. Branch fluocinonid 2021-0 Yes [id number] Apply to [facility] 0.05 % 6-03 area(s) 2 ity of cream 00:00: (two) [place] 00 times Medical daily. Branch fluocinonid 2021-0 Yes [id number] Apply to [facility] 0.05 % 6-03 area(s) 2 ity of cream 00:00: (two) [place] 00 times Medical daily. Branch fluocinonid 2021-0 Yes [id number] Apply to [facility] 0.05 % 6-03 area(s) 2 ity of cream 00:00: (two) [place] 00 times Medical daily. Branch fluocinonid 1-0 Yes [id number] Apply to [facility] 0.05 % 6-03 area(s) 2 ity of cream 00:00: (two) [place] 00 times Medical daily. Branch fluocinonid 1-0 Yes [id number] Apply to [facility] 0.05 % 6-03 area(s) 2 ity of cream 00:00: (two) [place] 00 times Medical daily. Branch fluocinonid 1-0 Yes [id number] Apply to [facility] 0.05 % 6-03 area(s) 2 ity of cream 00:00: (two) [place] 00 times Medical daily. Branch fluocinonid 1-0 Yes [id number] Apply to [facility] 0.05 % 6-03 area(s) 2 ity of cream 00:00: (two) [place] 00 times Medical daily. Branch fluocinonid 1-0 Yes [id number] Apply to [facility] 0.05 % 6-03 area(s) 2 ity of cream 00:00: (two) [place] 00 times Medical daily. Branch fluocinonid 1-0 Yes [id number] Apply to [facility] 0.05 % 6-03 area(s) 2 ity of cream 00:00: (two) [place] 00 times Medical daily. Branch fluocinonid 1-0 Yes [id number] Apply to [facility] 0.05 % 6-03 area(s) 2 ity of cream 00:00: (two) [place] 00 times Medical daily. Branch fluocinonid 1-0 Yes [id number] Apply to [facility] 0.05 % 6-03 area(s) 2 ity of cream 00:00: (two) [place] 00 times Medical daily. Branch fluocinonid 2021-0 Yes [id number] Apply to [facility] 0.05 % 6-03 area(s) 2 ity of cream 00:00: (two) [place] 00 times Medical daily. Branch fluocinonid 2021-0 Yes [id number] Apply to [facility] 0.05 % 6-03 area(s) 2 ity of cream 00:00: (two) [place] 00 times Medical daily. [place] fluocinonid Yes [id number] Apply to [facility] 0.05 % 6-03 area(s) 2 ity of cream 00:00: (two) [place] 00 times Medical daily. [place] aspirin 81 2019-04 No 81mg QD Take [address] [facility] EC 05-02 11-04 tablet (81 [facility] 00:[facility]: 23:59 mg total) Medic al 00 :00 by mouth Center daily. doxazosin 2019-04 Yes 2mg QD Take [address] [facility] ([facility]) 2 1-03 [facility] mouth [facility] tablet 15:30: nightly. [address] doxazosin 2019-04 Yes 2mg QD Take [address] [facility] ([facility]) 2 1-03 by mouth [facility] tablet 15:30: nightly. [address] doxazosin 2019-04 Yes 2mg QD Take [address] [facility] ([facility]) 2 1-03 by mouth [facility] tablet 15:30: nightly. [address] doxazosin 2019-04 Yes 2mg QD Take [address] [facility] ([facility]) 2 1-03 by mouth [facility] tablet 15:30: nightly. [address] doxazosin 2019-04 Yes 2mg QD Take [address] [facility] ([facility]) 2 1-03 by mouth [facility] tablet 15:30: nightly. [address] doxazosin 2019-04 Yes 2mg QD Take [address] [facility] ([facility]) 2 1-03 by mouth [facility] tablet 15:30: nightly. [address] doxazosin 2019-04 Yes 2mg QD Take [address] [facility] ([facility]) 2 1-03 by mouth [facility] tablet 15:30: nightly. [address] doxazosin 2019-04 Yes 2mg QD Take [address] [facility] ([facility]) 2 1-03 by mouth [facility] tablet 15:30: nightly. [address] doxazosin 2019-04 Yes 2mg QD Take [address] [facility] ([facility]) 2 1-03 by mouth [facility] tablet 15:30: nightly. [address] doxazosin 2019-04 Yes 2mg QD Take [address] [facility] ([facility]) 2 1-03 by mouth [facility] tablet 15:30: nightly. [address] doxazosin 2019- Yes 2mg QD Take [address] [facility] ([facility]ARD[facility]) 2 1-03 by mouth [facility] tablet 15:30: nightly. [address] doxazosin 2019- Yes 2mg QD Take [address] [facility] ([facility]ARD[facility]) 2 1-03 by mouth [facility] MG tablet 15:30: nightly. [address] doxazosin 2019- Yes 2mg QD Take [address] [facility] ([facility]ARDUR[facility]) 2 1-03 by mouth [facility] MG tablet 15:30: nightly. [address] insulin 2019-04 Yes AC & HS. [facility] St lispro 1-03 If BS > [facility] ([facility]) 00:00: 150 take 1 Me dical 100 unit/mL 00 unit. > Cente r injection 200 - 2 units. > 250 - 3 units. > 300 - 4 units. > 350 - 5 units. > 400 take 6 units, and call PCP.. insulin 2020-1 Yes AC & HS. [facility] lispro 1-03 If BS > [facility] ([facility]) 00:00: 150 take 1 Me dical 100 unit/mL 00 unit. > Cente r injection 200 - 2 units. > 250 - 3 units. > 300 - 4 units. > 350 - 5 units. > 400 take 6 units, and call PCP.. insulin 2020-1 Yes AC & HS. [facility] lispro 1-03 If BS > [facility] ([facility]) 00:00: 150 take 1 Me dical 100 unit/mL 00 unit. > Cente r injection 200 - 2 units. > 250 - 3 units. > 300 - 4 units. > 350 - 5 units. > 400 take 6 units, and call PCP.. insulin 2020-1 Yes AC & HS. [facility] lispro 1-03 If BS > [facility] ([facility]) 00:00: 150 take 1 Me dical 100 unit/mL 00 unit. > Cente r injection 200 - 2 units. > 250 - 3 units. > 300 - 4 units. > 350 - 5 units. > 400 take 6 units, and call PCP.. insulin 2020-1 Yes AC & HS. [facility] lispro 1-03 If BS > [facility] ([facility]) 00:00: 150 take 1 Me dical 100 unit/mL 00 unit. > Cente r injection 200 - 2 units. > 250 - 3 units. > 300 - 4 units. > 350 - 5 units. > 400 take 6 units, and call PCP.. insulin 2020-1 Yes AC & HS. [facility] St lispro 1-03 If BS > [facility] ([facility]) 00:00: 150 take 1 Me dical 100 unit/mL 00 unit. > Cente r injection 200 - 2 units. > 250 - 3 units. > 300 - 4 units. > 350 - 5 units. > 400 take 6 units, and call PCP.. insulin 2020-1 Yes AC & HS. [facility] St lispro 1-03 If BS > [facility] ([facility]uma[facility]) 00:00: 150 take 1 Me dical 100 unit/mL 00 unit. > Cente r injection 200 - 2 units. > 250 - 3 units. > 300 - 4 units. > 350 - 5 units. > 400 take 6 units, and call PCP.. insulin 2020-1 Yes AC & HS. [facility] St lispro 1-03 If BS > [facility] ([facility]uma[facility]) 00:00: 150 take 1 Me dical 100 unit/mL 00 unit. > Cente r injection 200 - 2 units. > 250 - 3 units. > 300 - 4 units. > 350 - 5 units. > 400 take 6 units, and call PCP.. insulin 2020-1 Yes AC & HS. [facility] St lispro 1-03 If BS > [facility] ([facility]uma[facility]) 00:00: 150 take 1 Me dical 100 unit/mL 00 unit. > Cente r injection 200 - 2 units. > 250 - 3 units. > 300 - 4 units. > 350 - 5 units. > 400 take 6 units, and call PCP.. insulin 2020-1 Yes AC & HS. [facility] St lispro 1-03 If BS > [facility] ([facility]uma[facility]) 00:00: 150 take 1 Me dical 100 unit/mL 00 unit. > Cente r injection 200 - 2 units. > 250 - 3 units. > 300 - 4 units. > 350 - 5 units. > 400 take 6 units, and call PCP.. insulin 2020-1 Yes AC & . [facility] St lispro 1-03 If BS > [facility] ([facility]uma[facility]) 00:00: 150 take 1 Me dical 100 unit/mL 00 unit. > Cente r injection 200 - 2 units. > 250 - 3 units. > 300 - 4 units. > 350 - 5 units. > 400 take 6 units, and call PCP.. insulin 2019-04 Yes AC & HS. [facility] lispro 1-03 If BS > [facility] ([facility]) 00:00: 150 take 1 Me dical 100 unit/mL 00 unit. > Cente r injection 200 - 2 units. > 250 - 3 units. > 300 - 4 units. > 350 - 5 units. > 400 take 6 units, and call PCP.. insulin 2019-04 Yes AC & HS. [facility] lispro 1-03 If BS > [facility] ([facility]uma[facility]) 00:00: 150 take 1 Me dical 100 unit/mL 00 unit. > Cente r injection 200 - 2 units. > 250 - 3 units. > 300 - 4 units. > 350 - 5 units. > 400 take 6 units, and call PCP.. insulin 2019-04- No AC [facility]. [facility]- If BS > [facility] ([facility]) 00:00: 00:00 150 take 1 M edical 100 unit/mL 00 :00 unit. > Cente r injection 200 - 2 units. > 250 - 3 units. > 300 - 4 units. > 350 - 5 units. > 400 take 6 units, and call PCP.. insulin 2019-04- No AC [facility] HS. [facility] 05-01 If BS > [facility] ([facility]) 00:00: 00:00 150 take 1 M edical 100 unit/mL 00 :00 unit. > Cente r injection 200 - 2 units. > 250 - 3 units. > 300 - 4 units. > 350 - 5 units. > 400 take 6 units, and call PCP.. insulin 2019-04- No AC [facility] HS. [facility] 05-01- If BS > [facility] ([facility]) 00:00: 00:00 150 take 1 M edical 100 unit/mL 00 :00 unit. > Cente r injection 200 - 2 units. > 250 - 3 units. > 300 - 4 units. > 350 - 5 units. > 400 take 6 units, and call PCP.. insulin 2019-04- No AC [facility] HS. [facility] 109-29 If BS > [facility] ([facility]) 00:00: 00:00 150 take 1 M edical 100 unit/mL 00 :00 unit. > Cente r injection 200 - 2 units. > 250 - 3 units. > 300 - 4 units. > 350 - 5 units. > 400 take 6 units, and call PCP.. insulin 2019-04- No AC [facility] HS. [facility] 05-01 If BS > [facility] ([facility]) 00:00: 00:00 150 take 1 M edical 100 unit/mL 00 :00 unit. > Cente r injection 200 - 2 units. > 250 - 3 units. > 300 - 4 units. > 350 - 5 units. > 400 take 6 units, and call PCP.. insulin 2019-04- No AC & HS. [facility] 05-01 If BS > [facility] ([facility]umaLOG) 00:00: 00:00 150 take 1 M edical 100 unit/mL 00 :00 unit. > Cente r injection 200 - 2 units. > 250 - 3 units. > 300 - 4 units. > 350 - 5 units. > 400 take 6 units, and call PCP.. rosuvastati 2020-0 Yes [id number] TAKE 1 [facility] 4-[facility] TABLET(20 st 20 MG 00:00: [facility] MOUTH l DAILY rosuvastati 2020-0 Yes [id number] TAKE 1 [facility] (CRESTOR) 4-[facility] TABLET(20 st 20 MG 00:00: MG) [facility] tablet 00 MOUTH l DAILY rosuvastati 2020-0 Yes [id number] TAKE 1 [facility] (CRESTOR) 4-21 TABLET(20 st 20 MG 00:00: MG) [facility] tablet 00 MOUTH l DAILY ONETOUCH 2019-0 Yes [id number] Use as Un awilda SURESOFT 3-10 directed ity of LANCING DEV 00:00: for once a [place] 28 gauge day blood Medica l [facility] [place] glucose Branch monitoring for ICD: E11.9 ONETOUCH Yes [id number] Use as Un [facility] ULTRASOFT 3-10 directed ity of LANCETS 00:00: [place] [facility] [place] 00 day blood Medical glucose Branch monitoring for ICD: E11.9 ONETOUCH 2020-0 Yes [id number] Use as Un [facility] SURESOFT 3-10 directed ity of LANCING DEV 00:00: for once a 28 gauge 00 day blood Medica l Misc glucose Branch monitoring for ICD: E11.9 ONETOUCH 2020-0 Yes [id number] Use as Un [facility] ULTRASOFT 3-10 directed ity of LANCETS 00:00: for once a a s Misc day blood Medical glucose Branch monitoring for ICD: E11.9 ONETOUCH 2019-0 Yes [id number] Use as Un [facility] SURESOFT 3-10 directed ity of LANCING DEV 00:00: for once a 28 gauge day blood Medica l Misc glucose Branch monitoring for ICD: E11.9 ONETOUCH 2019-0 Yes [id number] Use as Un [facility] ULTRASOFT 3-10 directed ity of LANCETS 00:00: for once a a s Misc day blood Medical glucose Branch monitoring for ICD: E11.9 ONETOUCH 2019-0 Yes [id number] Use as Un [facility] SURESOFT 3-10 directed ity of LANCING DEV 00:00: for once a 28 gauge day blood Medica l Misc glucose Branch monitoring for ICD: E11.9 ONETOUCH 2019-0 Yes [id number] Use as [facility] ULTRASOFT 3-10 directed ity of LANCETS 00:00: for once a a s Misc day blood Medical glucose Branch monitoring for ICD: E11.9 ONETOUCH 2019-0 Yes [id number] Use as [facility] SURESOFT 3-10 directed ity of LANCING DEV 00:00: for once a 28 gauge day blood Medica l Misc glucose Branch monitoring for ICD: E11.9 ONETOUCH 2019-0 Yes [id number] Use as [facility] ULTRASOFT 3-10 directed ity of LANCETS 00:00: for once a a s Misc day blood Medical glucose Branch monitoring for ICD: E11.9 ONETOUCH 2019-0 Yes [id number] Use as Un [facility] SURESOFT 3-10 directed ity of LANCING DEV 00:00: for once a 28 gauge day blood Medica l Misc glucose Branch monitoring for ICD: E11.9 ONETOUCH 2019-0 Yes [id number] Use as [facility] ULTRASOFT 3-10 directed ity of LANCETS 00:00: [place] 00 day blood Medical glucose Branch monitoring for ICD: E11.9 ONETOUCH 2020-0 Yes [id number] Use as Un [facility] SURESOFT 3-10 directed ity of LANCING DEV 00:00: for once a [place] 28 gauge 00 day blood Medica l Misc glucose Branch monitoring for ICD: E11.9 ONETOUCH 2020-0 Yes [id number] Use as [facility] ULTRASOFT 3-10 directed ity of LANCETS 00:00: for [place] M[place] 00 day blood Medical glucose Branch monitoring for ICD: E11.9 ONETOUCH 2020-0 Yes [id number] Use as Un [facility] SURESOFT 3-10 directed ity of LANCING DEV 00:00: for once a [place] 28 gauge 00 day blood Medica l Misc glucose Branch monitoring for ICD: E11.9 ONETOUCH 2020-0 Yes [id number] Use as [facility] ULTRASOFT 3-10 directed ity of LANCETS 00:00: for once [place] M[place] 00 day blood Medical glucose Branch monitoring for ICD: E11.9 ONETOUCH 2020-0 Yes [id number] Use as [facility] SURESOFT 3-10 directed ity of LANCING DEV 00:00: for once a 28 gauge 00 day blood Medica l Misc glucose Branch monitoring for ICD: E11.9 ONETOUCH 2020-0 Yes [id number] Use as [facility] ULTRASOFT 3-10 directed ity of LANCETS 00:00: for once [place] M[place] day blood Medical glucose Branch monitoring for ICD: E11.9 ONETOUCH 2020-0 Yes [id number] Use as [facility] SURESOFT 3-10 directed ity of LANCING DEV 00:00: for once a 28 gauge 00 day blood Medica l Misc glucose Branch monitoring for ICD: E11.9 ONETOUCH 2020-0 Yes [id number] Use as [facility] ULTRASOFT 3-10 directed ity of LANCETS 00:00: for once [place] 00 day blood Medical glucose Branch monitoring for ICD: E11.9 ONETOUCH 2020-0 Yes [id number] Use as [facility] SURESOFT 3-10 directed ity of LANCING DEV 00:00: for once a 28 gauge day blood Medica l Misc glucose Branch monitoring for ICD: E11.9 ONETOUCH 2020-0 Yes [id number] Use as [facility] ULTRASOFT 3-10 directed ity of LANCETS 00:00: [place] M[place] day blood Medical glucose Branch monitoring for ICD: E11.9 ONETOUCH 2020-0 Yes [id number] Use as [facility] SURESOFT 3-10 directed ity of LANCING DEV 00:00: for once a 28 gauge day blood Medica l Misc glucose Branch monitoring for ICD: E11.9 ONETOUCH 2020-0 Yes [id number] Use as [facility] ULTRASOFT 3-10 directed ity of LANCETS 00:00: for once a a s Misc day blood Medical glucose Branch monitoring for ICD: E11.9 ONETOUCH 2020-0 Yes [id number] Use as [facility] SURESOFT 3-10 directed ity of LANCING DEV 00:00: for once a 28 gauge day blood Medica l Misc glucose Branch monitoring for ICD: E11.9 ONETOUCH 2020-0 Yes [id number] Use as [facility] ULTRASOFT 3-10 directed ity of LANCETS 00:00: for once a a s Misc day blood Medical glucose Branch monitoring for ICD: E11.9 ONETOUCH 2020-0 Yes [id number] Use as [facility] SURESOFT 3-10 directed ity of LANCING DEV 00:00: for once a 28 gauge day blood Medica l Misc glucose Branch monitoring for ICD: E11.9 ONETOUCH 2020-0 Yes [id number] Use as [facility] ULTRASOFT 3-10 directed ity of LANCETS 00:00: for once a a s Misc day blood Medical glucose Branch monitoring for ICD: E11.9 ONETOUCH 2020-0 Yes [id number] Use as [facility] SURESOFT 3-10 directed ity of LANCING DEV 00:00: for once a 28 gauge day blood Medica l Misc glucose Branch monitoring for ICD: E11.9 ONETOUCH 2020-0 Yes [id number] Use as [facility] ULTRASOFT 3-10 directed ity of LANCETS 00:00: for once a a s Misc day blood Medical glucose Branch monitoring for ICD: E11.9 ONETOUCH 2020-0 Yes [id number] Use as [facility] SURESOFT 3-10 directed ity of LANCING DEV 00:00: for once a 28 gauge day blood Medica l Misc glucose Branch monitoring for ICD: E11.9 ONETOUCH 2020-0 Yes [id number] Use as [facility] ULTRASOFT 3-10 directed ity of LANCETS 00:00: for once a a s Misc day blood Medical glucose Branch monitoring for ICD: E11.9 ONETOUCH 2020-0 Yes [id number] Use as [facility] SURESOFT 3-10 directed ity of LANCING DEV 00:00: for once a 28 gauge day blood Medica l Misc glucose Branch monitoring for ICD: E11.9 ONETOUCH 2020-0 Yes [id number] Use as [facility] ULTRASOFT 3-10 directed ity of LANCETS 00:00: for once a a s Misc day blood Medical glucose Branch monitoring for ICD: E11.9 ONETOUCH 2020-0 Yes [id number] Use as [facility] SURES[employer]FT 3-10 directed ity of LANCING DEV 00:00: for once a 28 gauge day blood Medica l Misc glucose Branch monitoring for ICD: E11.9 ONETOUCH 2020-0 Yes [id number] Use as [facility] ULTRASOFT 3-10 directed ity of LANCETS 00:00: for once a a s Misc day blood Medical glucose Branch monitoring for ICD: E11.9 ONETOUCH 2020-0 Yes [id number] Use as [facility] SURES[employer] 3-10 directed ity of LANCING DEV 00:00: for once a 28 gauge day blood Medica l Misc glucose Branch monitoring for ICD: E11.9 ONETOUCH 2020-0 Yes [id number] Use as [facility] ULTRASO[employer] 3-10 directed ity of LANCETS 00:00: for once a a s Misc day blood Medical glucose Branch monitoring for ICD: E11.9 ONETOUCH 2020-0 Yes [id number] Use as [facility] SURES[employer] 3-10 directed ity of LANCING DEV 00:00: for once a 28 gauge day blood Medica l Misc glucose Branch monitoring for ICD: E11.9 ONETOUCH 2020-0 Yes [id number] Use as [facility] ULTRAS[employer] 3-10 directed ity of LANCETS 00:00: for [place] Misc [place] blood Medical glucose Branch monitoring for ICD: E11.9 ONETOUCH 2020-0 Yes [id number] Use as [facility] SURES[employer] 3-10 directed ity of LANCING DEV 00:00: for once a 28 gauge day blood Medica l Misc glucose Branch monitoring for ICD: E11.9 ONETOUCH 2020-0 Yes [id number] Use as [facility] ULTRAS[employer] 3-10 directed ity of LANCETS 00:00: for once a a s Misc day blood Medical glucose Branch monitoring for ICD: E11.9 ONETOUCH 2019-0 Yes [id number] Use as [facility] SURES[employer] 3-10 directed ity of LANCING DEV 00:00: for once a 28 gauge day blood Medica l Misc glucose Branch monitoring for ICD: E11.9 ONETOUCH 2019-0 Yes [id number] Use as [facility] [employer]TRAS[employer] 3-10 directed ity of LANCETS 00:00: for once a a s Misc day blood Medical glucose Branch monitoring for ICD: E11.9 ONETOUCH 2019-0 Yes [id number] Use as [facility] SURES[employer] 3-10 directed ity of LANCING DEV 00:00: for once a 28 gauge day blood Medica l Misc glucose Branch monitoring for ICD: E11.9 ONETOUCH 2019-0 Yes [id number] Use as [facility] [employer]TR[employer] 3-10 directed ity of LANCETS 00:00: for once a a s Misc day blood Medical glucose Branch monitoring for ICD: E11.9 ONETOUCH 2019-0 Yes [id number] Use as [facility] SURES[employer] 3-10 directed ity of LANCING DEV 00:00: for once a 28 gauge day blood Medica l Misc glucose Branch monitoring for ICD: E11.9 ONETOUCH 2019-0 Yes [id number] Use as [facility] [employer]TRAS[employer] 3-10 directed ity of LANCETS 00:00: for once a a s Misc day blood Medical glucose Branch monitoring for ICD: E11.9 ONETOUCH 2019-0 Yes [id number] Use as [facility] SURES[employer] 3-10 directed ity of LANCING DEV 00:00: for once a 28 gauge 00 day blood Medica l Misc glucose Branch monitoring for ICD: E11.9 ONETOUCH 2020-0 Yes [id number] Use as [facility] ULTRAS[employer] 3-10 directed ity of LANCETS 00:00: for [place] Misc 00 day blood Medical glucose Branch monitoring for ICD: E11.9 ONETOUCH 2020-0 Yes [id number] Use as [facility] SURES[employer] 3-10 directed ity of LANCING DEV 00:00: for once a 28 gauge day blood Medica l Misc glucose Branch monitoring for ICD: E11.9 ONETOUCH 2020-0 Yes [id number] Use as [facility] [employer]TRAS[employer] 3-10 directed ity of LANCETS 00:00: for [place] Misc [place] blood Medical glucose Branch monitoring for ICD: E11.9 ONETOUCH 2020-0 Yes [id number] Use as [facility] SURES[employer] 3-10 directed ity of LANCING DEV 00:00: for once a 28 gauge day blood Medica l Misc glucose Branch monitoring for ICD: E11.9 ONETOUCH 2020-0 Yes [id number] Use as [facility] ULTRAS[employer] 3-10 directed ity of LANCETS 00:00: for once a a s Misc day blood Medical glucose Branch monitoring for ICD: E11.9 ONETOUCH 2020-0 Yes [id number] Use as [facility] SURES[employer] 3-10 directed ity of LANCING DEV 00:00: for once a 28 gauge day blood Medica l Misc glucose Branch monitoring for ICD: E11.9 ONETOUCH 2020-0 Yes [id number] Use as [facility] ULTRAS[employer] 3-10 directed ity of LANCETS 00:00: for [place] Misc 00 day blood Medical glucose Branch monitoring for ICD: E11.9 ONETOUCH 2020-0 Yes [id number] Use as [facility] SURES[employer] 3-10 directed ity of LANCING DEV 00:00: for once a 28 gauge 00 day blood Medica l Misc glucose Branch monitoring for ICD: E11.9 ONETOUCH 2020-0 Yes [id number] Use as [facility] ULTRAS[employer] 3-10 directed ity of LANCETS 00:00: for [place] Misc [place] blood Medical glucose Branch monitoring for ICD: E11.9 ONETOUCH 2020-0 Yes [id number] Use as [facility] SURES[employer] 3-10 directed ity of LANCING DEV 00:00: for once a 28 gauge day blood Medica l Misc glucose Branch monitoring for ICD: E11.9 ONETOUCH 2020-0 Yes [id number] Use as [facility] ULTRAS[employer] 3-10 directed ity of LANCETS 00:00: for once a s Misc day blood Medical glucose Branch monitoring for ICD: E11.9 ONETOUCH 2020-0 Yes [id number] Use as [facility] SURES[employer] 3-10 directed ity of LANCING DEV 00:00: for once a 28 gauge day blood Medica l Misc glucose Branch monitoring for ICD: E11.9 ONETOUCH 2020-0 Yes [id number] Use as [facility] ULTRAS[employer] 3-10 directed ity of LANCETS 00:00: for once a Misc day blood Medical glucose Branch monitoring for ICD: E11.9 ONETOUCH 2020-0 Yes [id number] Use as [facility] SURES[employer] 3-10 directed ity of LANCING DEV 00:00: for once a 28 gauge day blood Medica l Misc glucose Branch monitoring for ICD: E11.9 ONETOUCH 2020-0 Yes [id number] Use as [facility] ULTRAS[employer] 3-10 directed ity of LANCETS 00:00: for once a a Misc day blood Medical glucose Branch monitoring for ICD: E11.9 ONETOUCH 2020-0 Yes [id number] Use as [facility] SURES[employer] 3-10 directed ity of LANCING DEV 00:00: for once a 28 gauge day blood Medica l Misc glucose Branch monitoring for ICD: E11.9 ONETOUCH 2020-0 Yes [id number] Use as [facility] ULTRAS[employer] 3-10 directed ity of LANCETS 00:00: for once a a s Misc day blood Medical glucose Branch monitoring for ICD: E11.9 ONETOUCH 2020-0 Yes [id number] Use as [facility] SURES[employer] 3-10 directed ity of LANCING DEV 00:00: for once a 28 gauge day blood Medica l Misc glucose Branch monitoring for ICD: E11.9 ONETOUCH 2020-0 Yes [id number] Use as [facility] ULTRAS[employer] 3-10 directed ity of LANCETS 00:00: for [place] Misc [place] blood Medical glucose Branch monitoring for ICD: E11.9 ONETOUCH 2020-0 Yes [id number] Use as [facility] SURES[employer] 3-10 directed ity of LANCING DEV 00:00: for once a 28 gauge day blood Medica l Misc glucose Branch monitoring for ICD: E11.9 ONETOUCH 2020-0 Yes [id number] Use as [facility] ULTRAS[employer] 3-10 directed ity of LANCETS 00:00: for [place] Misc day blood Medical glucose Branch monitoring for ICD: E11.9 ONETOUCH 2020-0 Yes [id number] Use as [facility] SURES[employer] 3-10 directed ity of LANCING DEV 00:00: for once a 28 gauge day blood Medica l Misc glucose Branch monitoring for ICD: E11.9 ONETOUCH 2020-0 Yes [id number] Use as [facility] ULTRAS[employer] 3-10 directed ity of LANCETS 00:00: for [place] Misc day blood Medical glucose Branch monitoring for ICD: E11.9 ONETOUCH 2020-0 Yes [id number] Use as [facility] SURES[employer] 3-10 directed ity of LANCING DEV 00:00: for once a 28 gauge day blood Medica l Misc glucose Branch monitoring for ICD: E11.9 ONETOUCH 2020-0 Yes [id number] Use as [facility] [employer]TRAS[employer] 3-10 directed ity of LANCETS 00:00: for [place] Misc day blood Medical glucose Branch monitoring for ICD: E11.9 ONETOUCH 2020-0 Yes [id number] Use as [facility] SURES[employer] 3-10 directed ity of LANCING DEV 00:00: for once a 28 gauge day blood Medica l Misc glucose Branch monitoring for ICD: E11.9 ONETOUCH 2020-0 Yes [id number] Use as [facility] ULTRAS[employer] 3-10 directed ity of LANCETS 00:00: for [place] Misc [place] blood Medical glucose Branch monitoring for ICD: E11.9 ONETOUCH 2020-0 Yes [id number] Use as [facility] SURES[employer] 3-10 directed ity of LANCING DEV 00:00: for once a 28 gauge day blood Medica l Misc glucose Branch monitoring for ICD: E11.9 ONETOUCH 2019-0 Yes [id number] Use as [facility] [employer]TRAS[employer] 3-10 directed ity of LANCETS 00:00: for once a a s Misc day blood Medical glucose Branch monitoring for ICD: E11.9 ONETOUCH 2019-0 Yes [id number] Use as [facility] SURES[employer] 3-10 directed ity of LANCING DEV 00:00: for once a 28 gauge day blood Medica l Misc glucose Branch monitoring for ICD: E11.9 ONETOUCH 2019-0 Yes [id number] Use as [facility] [employer]TRAS[employer] 3-10 directed ity of LANCETS 00:00: for once a a s Misc day blood Medical glucose Branch monitoring for ICD: E11.9 ONETOUCH 2019-0 Yes [id number] Use as [facility] SURES[employer] 3-10 directed ity of LANCING DEV 00:00: for once a 28 gauge day blood Medica l Misc glucose Branch monitoring for ICD: E11.9 ONETOUCH 2019-0 Yes [id number] Use as [facility] ULTRAS[employer] 3-10 directed ity of LANCETS 00:00: for once a a s Misc day blood Medical glucose Branch monitoring for ICD: E11.9 ONETOUCH 2019-0 Yes [id number] Use as [facility] SURES[employer] 3-10 directed ity of LANCING DEV 00:00: for once a 28 gauge day blood Medica l Misc glucose Branch monitoring for ICD: E11.9 ONETOUCH 2019-0 Yes [id number] Use as [facility] ULTRAS[employer] 3-10 directed ity of LANCETS 00:00: for once a a s Misc day blood Medical glucose Branch monitoring for ICD: E11.9 ONETOUCH 2019-0 Yes [id number] Use as [facility] SURES[employer] 3-10 directed ity of LANCING DEV 00:00: for once a 28 gauge day blood Medica l Misc glucose Branch monitoring for ICD: E11.9 ONETOUCH 2019-0 Yes [id number] Use as [facility] ULTRAS[employer] 3-10 directed ity of LANCETS 00:00: for once a a s Misc day blood Medical glucose Branch monitoring for ICD: E11.9 ONETOUCH 2020-0 Yes [id number] Use as [facility] SURES[employer] 3-10 directed ity of LANCING DEV 00:00: for once a 28 gauge day blood Medica l Misc glucose Branch monitoring for ICD: E11.9 ONETOUCH 2020-0 Yes [id number] Use as [facility] ULTRAS[employer] 3-10 directed ity of LANCETS 00:00: for once a a s Misc day blood Medical glucose Branch monitoring for ICD: E11.9 ONETOUCH 2020-0 Yes [id number] Use as [facility] SURES[employer] 3-10 directed ity of LANCING DEV 00:00: for once a 28 gauge day blood Medica l Misc glucose Branch monitoring for ICD: E11.9 ONETOUCH 2020-0 Yes [id number] Use as [facility] ULTRAS[employer] 3-10 directed ity of LANCETS 00:00: for once a a s Misc day blood Medical glucose Branch monitoring for ICD: E11.9 ONETOUCH 2020-0 Yes [id number] Use as [facility] SURES[employer] 3-10 directed ity of LANCING DEV 00:00: for once a 28 gauge day blood Medica l Misc glucose Branch monitoring for ICD: E11.9 ONETOUCH 2020-0 Yes [id number] Use as [facility] ULTRAS[employer]FT 3-10 directed ity of LANCETS 00:00: for once a a s Misc day blood Medical glucose Branch monitoring for ICD: E11.9 ONETOUCH 2020-0 Yes [id number] Use as [facility] SURES[employer] 3-10 directed ity of LANCING DEV 00:00: for once a 28 gauge day blood Medica l Misc glucose Branch monitoring for ICD: E11.9 ONETOUCH 2020-0 Yes [id number] Use as [facility] ULTRAS[employer] 3-10 directed ity of LANCETS 00:00: for once a a s Misc day blood Medical glucose Branch monitoring for ICD: E11.9 ONETOUCH 2020-0 Yes [id number] Use as [facility] SURES[employer] 3-10 directed ity of LANCING DEV 00:00: for once a 28 gauge day blood Medica l Misc glucose Branch monitoring for ICD: E11.9 ONETOUCH 2020-0 Yes [id number] Use as [facility] ULTRAS[employer] 3-10 directed ity of LANCETS 00:00: for once a [place] Misc [place] blood Medical glucose Branch monitoring for ICD: E11.9 ONETOUCH 2020-0 Yes [id number] Use as [facility] SURES[employer] 3-10 directed ity of LANCING DEV 00:00: for once a 28 gauge day blood Medica l Misc glucose Branch monitoring for ICD: E11.9 ONETOUCH 2020-0 Yes [id number] Use as [facility] ULTRAS[employer] 3-10 directed ity of LANCETS 00:00: for once a a s Misc day blood Medical glucose Branch monitoring for ICD: E11.9 ONETOUCH 2020-0 Yes [id number] Use as [facility] SURES[employer] 3-10 directed ity of LANCING DEV 00:00: for once a 28 gauge day blood Medica l Misc glucose Branch monitoring for ICD: E11.9 ONETOUCH 2020-0 Yes [id number] Use as [facility] ULTRAS[employer] 3-10 directed ity of LANCETS 00:00: for once a a s Misc day blood Medical glucose Branch monitoring for ICD: E11.9 ONETOUCH 2020-0 Yes [id number] Use as [facility] SURES[employer] 3-10 directed ity of LANCING DEV 00:00: for once a 28 gauge day blood Medica l Misc glucose Branch monitoring for ICD: E11.9 ONETOUCH 2020-0 Yes [id number] Use as [facility] ULTRAS[employer] 3-10 directed ity of LANCETS 00:00: for once a a s Misc day blood Medical glucose Branch monitoring for ICD: E11.9 ONETOUCH 2020-0 Yes [id number] Use as [facility] SURES[employer] 3-10 directed ity of LANCING DEV 00:00: for once a 28 gauge day blood Medica l Misc glucose Branch monitoring for ICD: E11.9 ONETOUCH 2020-0 Yes [id number] Use as [facility] ULTRAS[employer] 3-10 directed ity of LANCETS 00:00: for once a a s Misc day blood Medical glucose Branch monitoring for ICD: E11.9 ONETOUCH 2020-0 Yes [id number] Use as [facility] SURES[employer]FT 3-10 directed ity of LANCING DEV 00:00: for once a 28 gauge day blood Medica l Misc glucose Branch monitoring for ICD: E11.9 ONETOUCH 2020-0 Yes [id number] Use as [facility] ULTRAS[employer] 3-10 directed ity of LANCETS 00:00: for once a s Misc day blood Medical glucose Branch monitoring for ICD: E11.9 ONETOUCH 2020-0 Yes [id number] Use as [facility] SURES[employer] 3-10 directed ity of LANCING DEV 00:00: for once a 28 gauge day blood Medica l Misc glucose Branch monitoring for ICD: E11.9 ONETOUCH 2020-0 Yes [id number] Use as [facility] ULTRAS[employer] 3-10 directed ity of LANCETS 00:00: for once a a s Misc day blood Medical glucose Branch monitoring for ICD: E11.9 ONETOUCH 2020-0 Yes [id number] Use as [facility] SURES[employer] 3-10 directed ity of LANCING DEV 00:00: for once a 28 gauge day blood Medica l Misc glucose Branch monitoring for ICD: E11.9 ONETOUCH 2019-0 Yes [id number] Use as [facility] ULTRAS[employer] 3-10 directed ity of LANCETS 00:00: for once a s Misc day blood Medical glucose Branch monitoring for ICD: E11.9 ONETOUCH 2020-0 Yes [id number] Use as [facility] SURES[employer] 3-10 directed ity of LANCING DEV 00:00: for once a 28 gauge day blood Medica l Misc glucose Branch monitoring for ICD: E11.9 ONETOUCH 2020-0 Yes [id number] Use as [facility] ULTRAS[employer]FT 3-10 directed ity of LANCETS 00:00: for once a a s Misc day blood Medical glucose Branch monitoring for ICD: E11.9 ONETOUCH 2020-0 Yes [id number] Use as [facility] SURES[employer]FT 3-10 directed ity of LANCING DEV 00:00: for once a 28 gauge day blood Medica l Misc glucose Branch monitoring for ICD: E11.9 ONETOUCH 2019-0 Yes [id number] Use as [facility] ULTRASOFT 3-10 directed ity of LANCETS 00:00: for once a a s Misc day blood Medical glucose Branch monitoring for ICD: E11.9 ONETOUCH 2020-0 Yes [id number] Use as [facility] SURES[employer]FT 3-10 directed ity of LANCING DEV 00:00: for once a 28 gauge day blood Medica l Misc glucose Branch monitoring for ICD: E11.9 ONETOUCH 2020-0 Yes [id number] Use as [facility] ULTRASOFT 3-10 directed ity of LANCETS 00:00: for once a a s Misc day blood Medical glucose Branch monitoring for ICD: E11.9 ONETOUCH 2020-0 Yes [id number] Use as [facility] SURES[employer]FT 3-10 directed ity of LANCING DEV 00:00: for once a 28 gauge day blood Medica l Misc glucose Branch monitoring for ICD: E11.9 ONETOUCH 2020-0 Yes [id number] Use as [facility] ULTRASOFT 3-10 directed ity of LANCETS 00:00: for once a a s Misc day blood Medical glucose Branch monitoring for ICD: E11.9 ONETOUCH 2020-0 Yes [id number] Use as [facility] SURES[employer]FT 3-10 directed ity of LANCING DEV 00:00: for once a 28 gauge day blood Medica l Misc glucose Branch monitoring for ICD: E11.9 ONETOUCH 2020-0 Yes [id number] Use as [facility] ULTRAS[employer]FT 3-10 directed ity of LANCETS 00:00: for once a a s Misc day blood Medical glucose Branch monitoring for ICD: E11.9 ONETOUCH 2020-0 Yes [id number] Use as [facility] SURES[employer]FT 3-10 directed ity of LANCING DEV 00:00: for once a 28 gauge day blood Medica l Misc glucose Branch monitoring for ICD: E11.9 ONETOUCH 2020-0 Yes [id number] Use as [facility] ULTRASOFT 3-10 directed ity of LANCETS 00:00: for once a a s Misc day blood Medical glucose Branch monitoring for ICD: E11.9 ONETOUCH 2020-0 Yes [id number] Use as [facility] SURESOFT 3-10 directed ity of LANCING DEV 00:00: for once a 28 gauge day blood Medica l Misc glucose Branch monitoring for ICD: E11.9 ONETOUCH 2020-0 Yes [id number] Use as [facility] ULTRASOFT 3-10 directed ity of LANCETS 00:00: for once [place] Misc [place] blood Medical glucose Branch monitoring for ICD: E11.9 ONETOUCH 2020-0 Yes [id number] Use as [facility] SURESOFT 3-10 directed ity of LANCING DEV 00:00: for once a 28 gauge day blood Medica l Misc glucose Branch monitoring for ICD: E11.9 ONETOUCH 2020-0 Yes [id number] Use as [facility] ULTRAS[employer]FT 3-10 directed ity of LANCETS 00:00: for once a a s Misc day blood Medical glucose Branch monitoring for ICD: E11.9 ONETOUCH 2020-0 Yes [id number] Use as [facility] SURES[employer]FT 3-10 directed ity of LANCING DEV 00:00: for once a 28 gauge day blood Medica l Misc glucose Branch monitoring for ICD: E11.9 ONETOUCH 2020-0 Yes [id number] Use as [facility] ULTRASOFT 3-10 directed ity of LANCETS 00:00: for once a a s Misc day blood Medical glucose Branch monitoring for ICD: E11.9 ONETOUCH 2020-0 Yes [id number] Use as [facility] SURES[employer]FT 3-10 directed ity of LANCING DEV 00:00: for once a 28 gauge day blood Medica l Misc glucose Branch monitoring for ICD: E11.9 ONETOUCH 2020-0 Yes [id number] Use as [facility] ULTRASOFT 3-10 directed ity of LANCETS 00:00: for once a a s Misc day blood Medical glucose Branch monitoring for ICD: E11.9 ONETOUCH 2020-0 Yes [id number] Use as [facility] SURES[employer]FT 3-10 directed ity of LANCING DEV 00:00: for once a 28 gauge day blood Medica l Misc glucose Branch monitoring for ICD: E11.9 ONETOUCH 2020-0 Yes [id number] Use as [facility] ULTRASOFT 3-10 directed ity of LANCETS 00:00: for once a [place] Misc day blood Medical glucose Branch monitoring for ICD: E11.9 ONETOUCH 2020-0 Yes [id number] Use as [facility] SURES[employer]FT 3-10 directed ity of LANCING DEV 00:00: for once a 28 gauge day blood Medica l Misc glucose Branch monitoring for ICD: E11.9 ONETOUCH 2020-0 Yes [id number] Use as [facility] ULTRASOFT 3-10 directed ity of LANCETS 00:00: for once a Misc day blood Medical glucose Branch monitoring for ICD: E11.9 ONETOUCH 2020-0 Yes [id number] Use as [facility] SURES[employer]FT 3-10 directed ity of LANCING DEV 00:00: for once a 28 gauge day blood Medica l Misc glucose Branch monitoring for ICD: E11.9 ONETOUCH 2019-0 Yes [id number] Use as [facility] ULTRASOFT 3-10 directed ity of LANCETS 00:00: for once a day blood Medical glucose Branch monitoring for ICD: E11.9 ONETOUCH 2019-0 Yes [id number] Use as [facility] SURES[employer]FT 3-10 directed ity of LANCING DEV 00:00: for once a gauge day blood Medica l Misc glucose Branch monitoring for ICD: E11.9 ONETOUCH 2019-0 Yes [id number] Use as [facility] ULTRAS[employer] 3-10 directed ity of LANCETS 00:00: for once a day blood Medical glucose Branch monitoring for ICD: E11.9 ONETOUCH 2020-0 Yes [id number] Use as [facility] SURES[employer]FT 3-10 directed ity of LANCING DEV 00:00: for once a 28 gauge day blood Medica l Misc glucose Branch monitoring for ICD: E11.9 ONETOUCH 2020-0 Yes [id number] Use as [facility] ULTRAS[employer] 3-10 directed ity of LANCETS 00:00: for once a s Misc day blood Medical glucose Branch monitoring for ICD: E11.9 ONETOUCH 2020-0 Yes [id number] Use as [facility] SURES[employer]FT 3-10 directed ity of LANCING DEV 00:00: for once a 28 gauge day blood Medica l Misc glucose Branch monitoring for ICD: E11.9 ONETOUCH 2020-0 Yes [id number] Use as [facility] ULTRASO[employer] 3-10 directed ity of LANCETS 00:00: for once [place] Misc 00 day blood Medical glucose Branch monitoring for ICD: E11.9 ONETOUCH 2020-0 Yes [id number] Use as [facility] SURES[employer]FT 3-10 directed ity of LANCING DEV 00:00: for once a 28 gauge day blood Medica l Misc glucose Branch monitoring for ICD: E11.9 ONETOUCH 2020-0 Yes [id number] Use as [facility] ULTRASOFT 3-10 directed ity of LANCETS 00:00: for once a [place] Misc day blood Medical glucose Branch monitoring for ICD: E11.9 ONETOUCH 2019-0 Yes [id number] Use as [facility] SURES[employer]FT 3-10 directed ity of LANCING DEV 00:00: for once a 28 gauge day blood Medica l Misc glucose Branch monitoring for ICD: E11.9 ONETOUCH 2019-0 Yes [id number] Use as [facility] ULTRAS[employer]FT 3-10 directed ity of LANCETS 00:00: for once a [place] Misc day blood Medical glucose Branch monitoring for ICD: E11.9 ONETOUCH 2019-0 Yes [id number] Use as [facility] SURES[employer]FT 3-10 directed ity of LANCING DEV 00:00: for once a 28 gauge day blood Medica l Misc glucose Branch monitoring for ICD: E11.9 ONETOUCH 2019-0 Yes [id number] Use as Un [facility] ULTRASOFT 3-10 directed ity of LANCETS 00:00: for once a [place] Misc day blood Medical glucose Branch monitoring for ICD: E11.9 ONETOUCH 2020-0 Yes [id number] Use as [facility] SURESOFT 3-10 directed ity of LANCING DEV 00:00: for once a 28 gauge day blood Medica l Misc glucose Branch monitoring for ICD: E11.9 ONETOUCH 2019-0 Yes [id number] Use as [facility] ULTRASOFT 3-10 directed ity of LANCETS 00:00: for once a [place] Misc day blood Medical glucose Branch monitoring for ICD: E11.9 ONETOUCH 2019-0 Yes [id number] Use as [facility] SURES[employer]FT 3-10 directed ity of LANCING DEV 00:00: for once a 28 gauge day blood Medica l Misc glucose Branch monitoring for ICD: E11.9 ONETOUCH 2020-0 Yes [id number] Use as [facility] ULTRASOFT 3-10 directed ity of LANCETS 00:00: for once a [place] Misc day blood Medical glucose Branch monitoring for ICD: E11.9 ONETOUCH 2020-0 Yes [id number] Use as [facility] SURESOFT 3-10 directed ity of LANCING DEV 00:00: for once a 28 gauge day blood Medica l Misc glucose Branch monitoring for ICD: E11.9 ONETOUCH 2020-0 Yes [id number] Use as [facility] ULTRASOFT 3-10 directed ity of LANCETS 00:00: for once a a s Misc day blood Medical glucose Branch monitoring for ICD: E11.9 ONETOUCH 2020-0 Yes [id number] Use as [facility] SURES[employer]FT 3-10 directed ity of LANCING DEV 00:00: for once a 28 gauge day blood Medica l Misc glucose Branch monitoring for ICD: E11.9 ONETOUCH 2020-0 Yes [id number] Use as [facility] ULTRASOFT 3-10 directed ity of LANCETS 00:00: for once a a s Misc day blood Medical glucose Branch monitoring for ICD: E11.9 ONETOUCH 2020-0 Yes [id number] Use as [facility] SURES[employer]FT 3-10 directed ity of LANCING DEV 00:00: for once a 28 gauge day blood Medica l Misc glucose Branch monitoring for ICD: E11.9 ONETOUCH 2020-0 Yes [id number] Use as [facility] ULTRASOFT 3-10 directed ity of LANCETS 00:00: for once a a s Misc day blood Medical glucose Branch monitoring for ICD: E11.9 ONETOUCH 2020-0 Yes [id number] Use as [facility] SURES[employer]FT 3-10 directed ity of LANCING DEV 00:00: for once a 28 gauge day blood Medica l Misc glucose Branch monitoring for ICD: E11.9 ONETOUCH 2019-0 Yes [id number] Use as [facility] ULTRASOFT 3-10 directed ity of LANCETS 00:00: for once a a s Misc day blood Medical glucose Branch monitoring for ICD: E11.9 ONETOUCH 2020-0 Yes [id number] Use as Un [facility] SURESOFT 3-10 directed ity of LANCING DEV 00:00: for once a [place] 28 gauge day blood Medica l Misc glucose Branch monitoring for ICD: E11.9 ONETOUCH 2020-0 Yes [id number] Use as Un [facility] ULTRASOFT 3-10 directed ity of LANCETS 00:00: for once a a s Misc day blood Medical glucose Branch monitoring for ICD: E11.9 ONETOUCH 2020-0 Yes [id number] Use as Un [facility] SURESOFT 3-10 directed ity of LANCING DEV 00:00: for once a 28 gauge day blood Medica l Misc glucose Branch monitoring for ICD: E11.9 ONETOUCH 2020-0 Yes [id number] Use as [facility] ULTRASOFT 3-10 directed ity of LANCETS 00:00: for once a a s Misc day blood Medical glucose Branch monitoring for ICD: E11.9 ONETOUCH 2020-0 Yes [id number] Use as Un [facility] SURESOFT 3-10 directed ity of LANCING DEV 00:00: for once a 28 gauge day blood Medica l Misc glucose Branch monitoring for ICD: E11.9 ONETOUCH 2020-0 Yes [id number] Use as Un [facility] ULTRASOFT 3-10 directed ity of LANCETS 00:00: for once a a s Misc day blood Medical glucose Branch monitoring for ICD: E11.9 ONETOUCH 2020-0 Yes [id number] Use as Un [facility] SURESOFT 3-10 directed ity of LANCING DEV 00:00: for once a 28 gauge day blood Medica l Misc glucose Branch monitoring for ICD: E11.9 ONETOUCH 2020-0 Yes [id number] Use as Un [facility] ULTRASOFT 3-10 directed ity of LANCETS 00:00: for [place] Misc [place] blood Medical glucose Branch monitoring for ICD: E11.9 ONETOUCH 2020-0 Yes [id number] Use as Un [facility] SURESOFT 3-10 directed ity of LANCING DEV 00:00: for once a 28 gauge day blood Medica l Misc glucose Branch monitoring for ICD: E11.9 ONETOUCH 2020-0 Yes [id number] Use as [facility] ULTRASOFT 3-10 directed ity of LANCETS 00:00: [place] Misc day blood Medical glucose Branch monitoring for ICD: E11.9 ONETOUCH 2020-0 Yes [id number] Use as [facility] SURESOFT 3-10 directed ity of LANCING DEV 00:00: for once a 28 gauge day blood Medica l Misc glucose Branch monitoring for ICD: E11.9 ONETOUCH 2020-0 Yes [id number] Use as [facility] ULTRASO[employer] 3-10 directed ity of LANCETS 00:00: for once a a [place] Misc day blood Medical glucose Branch monitoring for ICD: E11.9 ONETOUCH 2020-0 Yes [id number] Use as [facility] SURESOFT 3-10 directed ity of LANCING DEV 00:00: for once a gauge day blood Medica l Misc glucose Branch monitoring for ICD: E11.9 ONETOUCH 2020-0 Yes [id number] Use as [facility] ULTRASO[employer] 3-10 directed ity of LANCETS 00:00: for once a a s Misc day blood Medical glucose Branch monitoring for ICD: E11.9 ONETOUCH 2020-0 Yes [id number] Use as [facility] SURESOFT 3-10 directed ity of LANCING DEV 00:00: for once a gauge day blood Medica l Misc glucose Branch monitoring for ICD: E11.9 ONETOUCH 2020-0 Yes [id number] Use as [facility] ULTRASO[employer] 3-10 directed ity of LANCETS 00:00: for once a a s Misc day blood Medical glucose Branch monitoring for ICD: E11.9 ONETOUCH 2020-0 Yes [id number] Use as [facility] SURESOFT 3-10 directed ity of LANCING DEV 00:00: for once a 28 gauge day blood Medica l Misc glucose Branch monitoring for ICD: E11.9 ONETOUCH 2020-0 Yes [id number] Use as [facility] ULTRASO[employer] 3-10 directed ity of LANCETS 00:00: for once a a s Misc day blood Medical glucose Branch monitoring for ICD: E11.9 ONETOUCH 2020-0 Yes [id number] Use as [facility] SURESOFT 3-10 directed ity of LANCING DEV 00:00: for once a 28 gauge day blood Medica l Misc glucose Branch monitoring for ICD: E11.9 ONETOUCH 2020-0 Yes [id number] Use as [facility] ULTRASOFT 3-10 directed ity of LANCETS 00:00: for once a a s Misc day blood Medical glucose Branch monitoring for ICD: E11.9 ONETOUCH 2020-0 Yes [id number] Use as [facility] SURESOFT 3-10 directed ity of LANCING DEV 00:00: for once a 28 gauge day blood Medica l Misc glucose Branch monitoring for ICD: E11.9 ONETOUCH 2019-0 Yes [id number] Use as [facility] ULTRASO[employer] 3-10 directed ity of LANCETS 00:00: for once a a s Misc day blood Medical glucose Branch monitoring for ICD: E11.9 ONETOUCH 2019-0 Yes [id number] Use as [facility] SURESOFT 3-10 directed ity of LANCING DEV 00:00: for once a 28 gauge day blood Medica l Misc glucose Branch monitoring for ICD: E11.9 ONETOUCH 2020-0 Yes [id number] Use as [facility] ULTRASOFT 3-10 directed ity of LANCETS 00:00: for once a a s Misc day blood Medical glucose Branch monitoring for ICD: E11.9 ONETOUCH 2019-0 Yes [id number] Use as [facility] SURESOFT 3-10 directed ity of LANCING DEV 00:00: for once a 28 gauge day blood Medica l Misc glucose Branch monitoring for ICD: E11.9 ONETOUCH 2020-0 Yes [id number] Use as [facility] ULTRASOFT 3-10 directed ity of LANCETS 00:00: for once a a s Misc day blood Medical glucose Branch monitoring for ICD: E11.9 ONETOUCH 2020-0 Yes [id number] Use as [facility] SURESOFT 3-10 directed ity of LANCING DEV 00:00: for once a 28 gauge day blood Medica l Misc glucose Branch monitoring for ICD: E11.9 ONETOUCH 2020-0 Yes [id number] Use as [facility] ULTRASO[employer] 3-10 directed ity of LANCETS 00:00: for once a a s Misc day blood Medical glucose Branch monitoring for ICD: E11.9 ONETOUCH 2020-0 Yes [id number] Use as [facility] SURES[employer] 3-10 directed ity of LANCING DEV 00:00: for once a 28 gauge day blood Medica l Misc glucose Branch monitoring for ICD: E11.9 ONETOUCH 2020-0 Yes [id number] Use as [facility] ULTRASO[employer] 3-10 directed ity of LANCETS 00:00: for once a a s Misc day blood Medical glucose Branch monitoring for ICD: E11.9 ONETOUCH 2020-0 Yes [id number] Use as [facility] SURESOFT 3-10 directed ity of LANCING DEV 00:00: for once a 28 gauge day blood Medica l Misc glucose Branch monitoring for ICD: E11.9 ONETOUCH 2020-0 Yes [id number] Use as [facility] ULTRASO[employer] 3-10 directed ity of LANCETS 00:00: for once a a s Misc day blood Medical glucose Branch monitoring for ICD: E11.9 ONETOUCH 2020-0 Yes [id number] Use as [facility] SURESOFT 3-10 directed ity of LANCING DEV 00:00: for once a 28 gauge day blood Medica l Misc glucose Branch monitoring for ICD: E11.9 ONETOUCH 2020-0 Yes [id number] Use as [facility] ULTRASO[employer] 3-10 directed ity of LANCETS 00:00: for once a a s Misc day blood Medical glucose Branch monitoring for ICD: E11.9 ONETOUCH 2020-0 Yes [id number] Use as [facility] SURESOFT 3-10 directed ity of LANCING DEV 00:00: for once a 28 gauge day blood Medica l Misc glucose Branch monitoring for ICD: E11.9 ONETOUCH 2020-0 Yes [id number] Use as [facility] ULTRASO[employer] 3-10 directed ity of LANCETS 00:00: for once a a s Misc day blood Medical glucose Branch monitoring for ICD: E11.9 ONETOUCH 2020-0 Yes [id number] Use as [facility] SURESOFT 3-10 directed ity of LANCING DEV 00:00: for once a 28 gauge day blood Medica l Misc glucose Branch monitoring for ICD: E11.9 ONETOUCH 2020-0 Yes [id number] Use as [facility] ULTRASO[employer] 3-10 directed ity of LANCETS 00:00: [place] M[place] blood Medical glucose Branch monitoring for ICD: E11.9 ONETOUCH 2020-0 Yes [id number] Use as [facility] SURESOFT 3-10 directed ity of LANCING DEV 00:00: for once a 28 gauge day blood Medica l Misc glucose Branch monitoring for ICD: E11.9 ONETOUCH 2020-0 Yes [id number] Use as [facility] ULTRASOFT 3-10 directed ity of LANCETS 00:00: for once a a s Misc day blood Medical glucose Branch monitoring for ICD: E11.9 ONETOUCH 2020-0 Yes [id number] Use as [facility] SURESOFT 3-10 directed ity of LANCING DEV 00:00: for once a 28 gauge day blood Medica l Misc glucose Branch monitoring for ICD: E11.9 ONETOUCH 2020-0 Yes [id number] Use as [facility] ULTRASOFT 3-10 directed ity of LANCETS 00:00: for once a a s Misc day blood Medical glucose Branch monitoring for ICD: E11.9 ONETOUCH 2020-0 Yes [id number] Use as [facility] SURESOFT 3-10 directed ity of LANCING DEV 00:00: for once a 28 gauge day blood Medica l Misc glucose Branch monitoring for ICD: E11.9 ONETOUCH 2020-0 Yes [id number] Use as [facility] ULTRASOFT 3-10 directed ity of LANCETS 00:00: for once a a s Misc day blood Medical glucose Branch monitoring for ICD: E11.9 ONETOUCH 2020-0 Yes [id number] Use as [facility] SURESOFT 3-10 directed ity of LANCING DEV 00:00: for once a 28 gauge day blood Medica l Misc glucose Branch monitoring for ICD: E11.9 ONETOUCH 2020-0 Yes [id number] Use as [facility] ULTRASO[employer] 3-10 directed ity of LANCETS 00:00: for once a a s Misc day blood Medical glucose Branch monitoring for ICD: E11.9 ONETOUCH 2020-0 Yes [id number] Use as [facility] SURESO[employer] 3-10 directed ity of LANCING DEV 00:00: for once a 28 gauge day blood Medica l Misc glucose Branch monitoring for ICD: E11.9 ONETOUCH 2020-0 Yes [id number] Use as [facility] ULTRASO[employer] 3-10 directed ity of LANCETS 00:00: for once a a s Misc day blood Medical glucose Branch monitoring for ICD: E11.9 ONETOUCH 2020-0 Yes [id number] Use as [facility] SURESOFT 3-10 directed ity of LANCING DEV 00:00: for once a 28 gauge day blood Medica l Misc glucose Branch monitoring for ICD: E11.9 ONETOUCH 2020-0 Yes [id number] Use as [facility] ULTRASO[employer] 3-10 directed ity of LANCETS 00:00: for once a a s Misc day blood Medical glucose Branch monitoring for ICD: E11.9 ONETOUCH 2020-0 Yes [id number] Use as [facility] SURESO[employer] 3-10 directed ity of LANCING DEV 00:00: for once a 28 gauge day blood Medica l Misc glucose Branch monitoring for ICD: E11.9 ONETOUCH 2019-0 Yes [id number] Use as [facility] ULTRASO[employer] 3-10 directed ity of LANCETS 00:00: for once a a s Misc day blood Medical glucose Branch monitoring for ICD: E11.9 ONETOUCH 2020-0 Yes [id number] Use as [facility] SURESOFT 3-10 directed ity of LANCING DEV 00:00: for once a 28 gauge day blood Medica l Misc glucose Branch monitoring for ICD: E11.9 ONETOUCH 2020-0 Yes [id number] Use as [facility] ULTRASO[employer] 3-10 directed ity of LANCETS 00:00: for [place] Misc [place] blood Medical glucose Branch monitoring for ICD: E11.9 ONETOUCH 2020-0 Yes [id number] Use as [facility] SURESOFT 3-10 directed ity of LANCING DEV 00:00: for once a 28 gauge day blood Medica l Misc glucose Branch monitoring for ICD: E11.9 ONETOUCH 2020-0 Yes [id number] Use as [facility] ULTRASO[employer] 3-10 directed ity of LANCETS 00:00: for [place] Misc day blood Medical glucose Branch monitoring for ICD: E11.9 ONETOUCH 2020-0 Yes [id number] Use as [facility] SURESOFT 3-10 directed ity of LANCING DEV 00:00: for once a 28 gauge day blood Medica l Misc glucose Branch monitoring for ICD: E11.9 ONETOUCH 2020-0 Yes [id number] Use as [facility] ULTRASO[employer] 3-10 directed ity of LANCETS 00:00: for [place] Misc day blood Medical glucose Branch monitoring for ICD: E11.9 ONETOUCH 2020-0 Yes [id number] Use as [facility] SURESOFT 3-10 directed ity of LANCING DEV 00:00: for once a 28 gauge day blood Medica l Misc glucose Branch monitoring for ICD: E11.9 ONETOUCH 2019-0 Yes [id number] Use as [facility] ULTRASOFT 3-10 directed ity of LANCETS 00:00: for [place] Misc day blood Medical glucose Branch monitoring for ICD: E11.9 ONETOUCH 2019-0 Yes [id number] Use as [facility] SURESOFT 3-10 directed ity of LANCING DEV 00:00: for once a 28 gauge day blood Medica l Misc glucose Branch monitoring for ICD: E11.9 ONETOUCH 2019-0 Yes [id number] Use as [facility] ULTRASOFT 3-10 directed ity of LANCETS 00:00: for [place] Misc day blood Medical glucose Branch monitoring for ICD: E11.9 ONETOUCH 2020-0 Yes [id number] Use as [facility] SURESOFT 3-10 directed ity of LANCING DEV 00:00: for once a 28 gauge day blood Medica l Misc glucose Branch monitoring for ICD: E11.9 ONETOUCH 2019-0 Yes [id number] Use as [facility] ULTRASOFT 3-10 directed ity of LANCETS 00:00: for once a [place] Misc day blood Medical glucose Branch monitoring for ICD: E11.9 ONETOUCH 2019-0 Yes [id number] Use as [facility] SURESOFT 3-10 directed ity of LANCING DEV 00:00: for once a 28 gauge day blood Medica l Misc glucose Branch monitoring for ICD: E11.9 ONETOUCH 2020-0 Yes [id number] Use as [facility] ULTRASOFT 3-10 directed ity of LANCETS 00:00: for [place] Misc day blood Medical glucose Branch monitoring for ICD: E11.9 ONETOUCH 2020-0 Yes [id number] Use as [facility] SURESOFT 3-10 directed ity of LANCING DEV 00:00: for once a 28 gauge day blood Medica l Misc glucose Branch monitoring for ICD: E11.9 ONETOUCH 2020-0 Yes [id number] Use as [facility] ULTRASOFT 3-10 directed ity of LANCETS 00:00: for [place] Misc day blood Medical glucose Branch monitoring for ICD: E11.9 ONETOUCH 2020-0 Yes [id number] Use as [facility] SURESOFT 3-10 directed ity of LANCING DEV 00:00: for once a 28 gauge day blood Medica l Misc glucose Branch monitoring for ICD: E11.9 ONETOUCH 2020-0 Yes [id number] Use as [facility] ULTRASOFT 3-10 directed ity of LANCETS 00:00: for once a a s Misc day blood Medical glucose Branch monitoring for ICD: E11.9 ONETOUCH 2020-0 Yes [id number] Use as [facility] SURESOFT 3-10 directed ity of LANCING DEV 00:00: for once a 28 gauge day blood Medica l Misc glucose Branch monitoring for ICD: E11.9 ONETOUCH 2020-0 Yes [id number] Use as [facility] ULTRASOFT 3-10 directed ity of LANCETS 00:00: for [place] Misc day blood Medical glucose Branch monitoring for ICD: E11.9 ONETOUCH 2020-0 Yes [id number] Use as [facility] SURESOFT 3-10 directed ity of LANCING DEV 00:00: for once a 28 gauge day blood Medica l Misc glucose Branch monitoring for ICD: E11.9 ONETOUCH 2020-0 Yes [id number] Use as [facility] ULTRASOFT 3-10 directed ity of LANCETS 00:00: for once a Misc day blood Medical glucose Branch monitoring for ICD: E11.9 ONETOUCH 2020-0 Yes [id number] Use as [facility] SURESOFT 3-10 directed ity of LANCING DEV 00:00: for once a 28 gauge day blood Medica l Misc glucose Branch monitoring for ICD: E11.9 ONETOUCH 2020-0 Yes [id number] Use as [facility] ULTRASOFT 3-10 directed ity of LANCETS 00:00: for once a Misc day blood Medical glucose Branch monitoring for ICD: E11.9 ONETOUCH 2020-0 Yes [id number] Use as [facility] SURESOFT 3-10 directed ity of LANCING DEV 00:00: for once a 28 gauge day blood Medica l Misc glucose Branch monitoring for ICD: E11.9 ONETOUCH 2020-0 Yes [id number] Use as [facility] ULTRASOFT 3-10 directed ity of LANCETS 00:00: for once a day blood Medical glucose Branch monitoring for ICD: E11.9 ONETOUCH 2020-0 Yes [id number] Use as [facility] SURESOFT 3-10 directed ity of LANCING DEV 00:00: for once a gauge day blood Medica l Misc glucose Branch monitoring for ICD: E11.9 ONETOUCH 2020-0 Yes [id number] Use as [facility] ULTRASOFT 3-10 directed ity of LANCETS 00:00: for once a day blood Medical glucose Branch monitoring for ICD: E11.9 ONETOUCH 2020-0 Yes [id number] Use as [facility] SURESOFT 3-10 directed ity of LANCING DEV 00:00: for once a 28 gauge day blood Medica l Misc glucose Branch monitoring for ICD: E11.9 ONETOUCH 2020-0 Yes [id number] Use as [facility] ULTRASOFT 3-10 directed ity of LANCETS 00:00: for once a s Misc day blood Medical glucose Branch monitoring for ICD: E11.9 ONETOUCH 2020-0 Yes [id number] Use as [facility] SURES[employer]FT 3-10 directed ity of LANCING DEV 00:00: for once a 28 gauge day blood Medica l Misc glucose Branch monitoring for ICD: E11.9 ONETOUCH 2020-0 Yes [id number] Use as [facility] ULTRASOFT 3-10 directed ity of LANCETS 00:00: for [place] Misc day blood Medical glucose Branch monitoring for ICD: E11.9 ONETOUCH 2020-0 Yes [id number] Use as [facility] SURESOFT 3-10 directed ity of LANCING DEV 00:00: for once a 28 gauge day blood Medica l Misc glucose Branch monitoring for ICD: E11.9 ONETOUCH 2020-0 Yes [id number] Use as [facility] ULTRASOFT 3-10 directed ity of LANCETS 00:00: for once a a s Misc day blood Medical glucose Branch monitoring for ICD: E11.9 ONETOUCH 2020-0 Yes [id number] Use as [facility] SURESOFT 3-10 directed ity of LANCING DEV 00:00: for once a 28 gauge day blood Medica l Misc glucose Branch monitoring for ICD: E11.9 ONETOUCH 2020-0 Yes [id number] Use as [facility] ULTRASOFT 3-10 directed ity of LANCETS 00:00: for once a a s Misc day blood Medical glucose Branch monitoring for ICD: E11.9 ONETOUCH 2020-0 Yes [id number] Use as [facility] SURESOFT 3-10 directed ity of LANCING DEV 00:00: for once a 28 gauge day blood Medica l Misc glucose Branch monitoring for ICD: E11.9 ONETOUCH 2020-0 Yes [id number] Use as [facility] ULTRASOFT 3-10 directed ity of LANCETS 00:00: for once a [place] Misc day blood Medical glucose Branch monitoring for ICD: E11.9 ONETOUCH 2020-0 Yes [id number] Use as [facility] SURESOFT 3-10 directed ity of LANCING DEV 00:00: for once a 28 gauge day blood Medica l Misc glucose Branch monitoring for ICD: E11.9 ONETOUCH 2020-0 Yes [id number] Use as [facility] ULTRASOFT 3-10 directed ity of LANCETS 00:00: for once a a s Misc day blood Medical glucose Branch monitoring for ICD: E11.9 ONETOUCH 2020-0 Yes [id number] Use as [facility] SURESOFT 3-10 directed ity of LANCING DEV 00:00: for once a 28 gauge 00 day blood Medica l Misc glucose Branch monitoring for ICD: E11.9 ONETOUCH 2020-0 Yes [id number] Use as [facility] ULTRASOFT 3-10 directed ity of LANCETS 00:00: for once a a s Misc day blood Medical glucose Branch monitoring for ICD: E11.9 ONETOUCH 2019-0 Yes [id number] Use as [facility] SURESOFT 3-10 directed ity of LANCING DEV 00:00: for once a 28 gauge day blood Medica l Misc glucose Branch monitoring for ICD: E11.9 ONETOUCH 2019-0 Yes [id number] Use as [facility] ULTRASOFT 3-10 directed ity of LANCETS 00:00: for once a a s Misc day blood Medical glucose Branch monitoring for ICD: E11.9 ONETOUCH 2019-0 Yes [id number] Use as [facility] SURESOFT 3-10 directed ity of LANCING DEV 00:00: for once a 28 gauge day blood Medica l Misc glucose Branch monitoring for ICD: E11.9 ONETOUCH 2019-0 Yes [id number] Use as [facility] ULTRASOFT 3-10 directed ity of LANCETS 00:00: for once a a s Misc day blood Medical glucose Branch monitoring for ICD: E11.9 ONETOUCH 2019-0 Yes [id number] Use as [facility] SURESOFT 3-10 directed ity of LANCING DEV 00:00: for once a 28 gauge day blood Medica l Misc glucose Branch monitoring for ICD: E11.9 ONETOUCH 2019-0 Yes [id number] Use as [facility] ULTRASOFT 3-10 directed ity of LANCETS 00:00: for once a a s Misc day blood Medical glucose Branch monitoring for ICD: E11.9 ONETOUCH 2019-0 Yes [id number] Use as [facility] SURESOFT 3-10 directed ity of LANCING DEV 00:00: for once a 28 gauge day blood Medica l Misc glucose Branch monitoring for ICD: E11.9 ONETOUCH 2019-0 Yes [id number] Use as [facility] ULTRASOFT 3-10 directed ity of LANCETS 00:00: for once a [place] Misc 00 day blood Medical glucose Branch monitoring for ICD: E11.9 ONETOUCH 2020-0 Yes [id number] Use as [facility] SURESOFT 3-10 directed ity of LANCING DEV 00:00: for once a [place] 28 gauge 00 day blood Medica l Misc glucose Branch monitoring for ICD: E11.9 ONETOUCH 2020-0 Yes [id number] Use as [facility] ULTRASOFT 3-10 directed ity of LANCETS 00:00: for once [place] Misc 00 day blood Medical glucose Branch monitoring for ICD: E11.9 ONETOUCH 2020-0 Yes [id number] Use as [facility] SURESOFT 3-10 directed ity of LANCING DEV 00:00: for once a [place] 28 gauge 00 day blood Medica l Misc glucose Branch monitoring for ICD: E11.9 ONETOUCH 2020-0 Yes [id number] Use as [facility] ULTRASOFT 3-10 directed ity of LANCETS 00:00: for once [place] Misc 00 day blood Medical glucose Branch monitoring for ICD: E11.9 ONETOUCH 2020-0 Yes [id number] Use as [facility] SURESOFT 3-10 directed ity of LANCING DEV 00:00: for once a 28 gauge 00 day blood Medica l Misc glucose Branch monitoring for ICD: E11.9 ONETOUCH 2020-0 Yes [id number] Use as [facility] ULTRASOFT 3-10 directed ity of LANCETS 00:00: for once [place] Misc day blood Medical glucose Branch monitoring for ICD: E11.9 ONETOUCH 2020-0 Yes [id number] Use as [facility] SURESOFT 3-10 directed ity of LANCING DEV 00:00: for once a 28 gauge 00 day blood Medica l Misc glucose Branch monitoring for ICD: E11.9 ONETOUCH 2020-0 Yes [id number] Use as [facility] ULTRASOFT 3-10 directed ity of LANCETS 00:00: for once a [place] Misc 00 day blood Medical glucose Branch monitoring for ICD: E11.9 ONETOUCH 2020-0 Yes [id number] Use as [facility] SURESOFT 3-10 directed ity of LANCING DEV 00:00: for once a 28 gauge day blood Medica l Misc glucose Branch monitoring for ICD: E11.9 ONETOUCH 2020-0 Yes [id number] Use as [facility] ULTRASOFT 3-10 directed ity of LANCETS 00:00: for once a [place] Misc day blood Medical glucose Branch monitoring for ICD: E11.9 ONETOUCH 2020-0 Yes [id number] Use as [facility] SURESOFT 3-10 directed ity of LANCING DEV 00:00: for once a 28 gauge day blood Medica l Misc glucose Branch monitoring for ICD: E11.9 ONETOUCH 2020-0 Yes [id number] Use as [facility] ULTRASOFT 3-10 directed ity of LANCETS 00:00: for once a a s Misc day blood Medical glucose Branch monitoring for ICD: E11.9 ONETOUCH 2020-0 Yes [id number] Use as [facility] SURESOFT 3-10 directed ity of LANCING DEV 00:00: for once a 28 gauge day blood Medica l Misc glucose Branch monitoring for ICD: E11.9 ONETOUCH 2020-0 Yes [id number] Use as [facility] ULTRASO[facility] 3-10 directed ity of LANCETS 00:00: for once a a s Misc day blood Medical glucose Branch monitoring for ICD: E11.9 ONETOUCH 2020-0 Yes [id number] Use as [facility] SURES[employer]FT 3-10 directed ity of LANCING DEV 00:00: for once a 28 gauge day blood Medica l Misc glucose Branch monitoring for ICD: E11.9 ONETOUCH 2020-0 Yes [id number] Use as [facility] ULTRASOFT 3-10 directed ity of LANCETS 00:00: for once a a s Misc day blood Medical glucose Branch monitoring for ICD: E11.9 ONETOUCH 2020-0 Yes [id number] Use as [facility] SURESOFT 3-10 directed ity of LANCING DEV 00:00: for once a 28 gauge day blood Medica l Misc glucose Branch monitoring for ICD: E11.9 ONETOUCH 2020-0 Yes [id number] Use as [facility] ULTRASOFT 3-10 directed ity of LANCETS 00:00: for once a a s Misc day blood Medical glucose Branch monitoring for ICD: E11.9 ONETOUCH 2020-0 Yes [id number] Use as [facility] SURESOFT 3-10 directed ity of LANCING DEV 00:00: for once a 28 gauge day blood Medica l Misc glucose Branch monitoring for ICD: E11.9 ONETOUCH 2020-0 Yes [id number] Use as [facility] ULTRASOFT 3-10 directed ity of LANCETS 00:00: for once a a s Misc day blood Medical glucose Branch monitoring for ICD: E11.9 ONETOUCH 2020-0 Yes [id number] Use as [facility] SURESOFT 3-10 directed ity of LANCING DEV 00:00: for once a 28 gauge day blood Medica l Misc glucose Branch monitoring for ICD: E11.9 ONETOUCH 2020-0 Yes [id number] Use as [facility] ULTRASOFT 3-10 directed ity of LANCETS 00:00: for once a a s Misc day blood Medical glucose Branch monitoring for ICD: E11.9 ONETOUCH 2020-0 Yes [id number] Use as [facility] SURESOFT 3-10 directed ity of LANCING DEV 00:00: for once a 28 gauge day blood Medica l Misc glucose Branch monitoring for ICD: E11.9 ONETOUCH 2020-0 Yes [id number] Use as [facility] ULTRASOFT 3-10 directed ity of LANCETS 00:00: for once a a s Misc day blood Medical glucose Branch monitoring for ICD: E11.9 ONETOUCH 2020-0 Yes [id number] Use as [facility] SURESOFT 3-10 directed ity of LANCING DEV 00:00: for once a 28 gauge day blood Medica l Misc glucose Branch monitoring for ICD: E11.9 ONETOUCH 2020-0 Yes [id number] Use as [facility] ULTRASOFT 3-10 directed ity of LANCETS 00:00: for once a a s Misc day blood Medical glucose Branch monitoring for ICD: E11.9 ONETOUCH 2020-0 Yes [id number] Use as [facility] SURESOFT 3-10 directed ity of LANCING DEV 00:00: for once a 28 gauge day blood Medica l Misc glucose Branch monitoring for ICD: E11.9 ONETOUCH 2020-0 Yes [id number] Use as [facility] ULTRASOFT 3-10 directed ity of LANCETS 00:00: for [place] Misc [place] blood Medical glucose Branch monitoring for ICD: E11.9 ONETOUCH 2020-0 Yes [id number] Use as [facility] SURESOFT 3-10 directed ity of LANCING DEV 00:00: for once a 28 gauge day blood Medica l Misc glucose Branch monitoring for ICD: E11.9 ONETOUCH 2020-0 Yes [id number] Use as [facility] ULTRASOFT 3-10 directed ity of LANCETS 00:00: for once a a s Misc day blood Medical glucose Branch monitoring for ICD: E11.9 ONETOUCH 2019-0 Yes [id number] Use as [facility] SURESOFT 3-10 directed ity of LANCING DEV 00:00: for once a 28 gauge day blood Medica l Misc glucose Branch monitoring for ICD: E11.9 ONETOUCH 2019-0 Yes [id number] Use as [facility] ULTRASOFT 3-10 directed ity of LANCETS 00:00: for once a a s Misc day blood Medical glucose Branch monitoring for ICD: E11.9 ONETOUCH 2019-0 Yes [id number] Use as [facility] SURESOFT 3-10 directed ity of LANCING DEV 00:00: for once a 28 gauge day blood Medica l Misc glucose Branch monitoring for ICD: E11.9 ONETOUCH 2019-0 Yes [id number] Use as [facility] ULTRASOFT 3-10 directed ity of LANCETS 00:00: for once a a s Misc day blood Medical glucose Branch monitoring for ICD: E11.9 ONETOUCH 2019-0 Yes [id number] Use as [facility] SURESOFT 3-10 directed ity of LANCING DEV 00:00: for once a 28 gauge day blood Medica l Misc glucose Branch monitoring for ICD: E11.9 ONETOUCH 2019-0 Yes [id number] Use as [facility] ULTRAS[employer]FT 3-10 directed ity of LANCETS 00:00: for once a a s Misc day blood Medical glucose Branch monitoring for ICD: E11.9 ONETOUCH 2019-0 Yes [id number] Use as [facility] SURESOFT 3-10 directed ity of LANCING DEV 00:00: for once a 28 gauge 00 day blood Medica l Misc glucose Branch monitoring for ICD: E11.9 ONETOUCH 2020-0 Yes [id number] Use as [facility] ULTRASOFT 3-10 directed ity of LANCETS 00:00: for [place] Misc 00 day blood Medical glucose Branch monitoring for ICD: E11.9 ONETOUCH 2020-0 Yes [id number] Use as [facility] SURESOFT 3-10 directed ity of LANCING DEV 00:00: for once a 28 gauge day blood Medica l Misc glucose Branch monitoring for ICD: E11.9 ONETOUCH 2020-0 Yes [id number] Use as [facility] ULTRASOFT 3-10 directed ity of LANCETS 00:00: for [place] Misc day blood Medical glucose Branch monitoring for ICD: E11.9 ONETOUCH 2020-0 Yes [id number] Use as [facility] SURESOFT 3-10 directed ity of LANCING DEV 00:00: for once a 28 gauge day blood Medica l Misc glucose Branch monitoring for ICD: E11.9 ONETOUCH 2020-0 Yes [id number] Use as [facility] ULTRASOFT 3-10 directed ity of LANCETS 00:00: for once a a s Misc day blood Medical glucose Branch monitoring for ICD: E11.9 ONETOUCH 2020-0 Yes [id number] Use as [facility] SURESOFT 3-10 directed ity of LANCING DEV 00:00: for once a 28 gauge day blood Medica l Misc glucose Branch monitoring for ICD: E11.9 ONETOUCH 2020-0 Yes [id number] Use as [facility] ULTRASOFT 3-10 directed [facility] LANCETS 00:00: [place] Misc 00 day blood [facility] glucose Branch monitoring for ICD: E11.9 ONETOUCH 2020-0 Yes [id number] Use as [facility] SURESOFT 3-10 directed ity of LANCING DEV 00:00: for once a 28 gauge 00 day blood Medica l Misc glucose Branch monitoring for ICD: E11.9 ONETOUCH 2020-0 Yes [id number] Use as [facility] ULTRASOFT 3-10 directed [facility]y of LANCETS 00:00: [place] Misc [place] blood [facility] glucose Branch monitoring for ICD: E11.9 ONETOUCH 2020-0 Yes [id number] Use as [facility] SURESOFT 3-10 directed ity of LANCING DEV 00:00: for once a 28 gauge day blood Medica l Misc glucose Branch monitoring for ICD: E11.9 ONETOUCH 2020-0 Yes [id number] Use as [facility] ULTRASOFT 3-10 directed ity of LANCETS 00:00: for once a s Misc day blood Medical glucose Branch monitoring for ICD: E11.9 ONETOUCH 2020-0 Yes [id number] Use as [facility] SURESOFT 3-10 directed ity of LANCING DEV 00:00: for once a 28 gauge day blood Medica l Misc glucose Branch monitoring for ICD: E11.9 ONETOUCH 2020-0 Yes [id number] Use as [facility] ULTRASOFT 3-10 directed ity of LANCETS 00:00: for once a Misc day blood Medical glucose Branch monitoring for ICD: E11.9 ONETOUCH 2020-0 Yes [id number] Use as [facility] SURESOFT 3-10 directed ity of LANCING DEV 00:00: for once a 28 gauge day blood Medica l Misc glucose Branch monitoring for ICD: E11.9 ONETOUCH 2020-0 Yes [id number] Use as [facility] ULTRASOFT 3-10 directed ity of LANCETS 00:00: for once a a Misc day blood Medical glucose Branch monitoring for ICD: E11.9 ONETOUCH 2020-0 Yes [id number] Use as [facility] SURESOFT 3-10 directed ity of LANCING DEV 00:00: for once a 28 gauge day blood Medica l Misc glucose Branch monitoring for ICD: E11.9 ONETOUCH 2020-0 Yes [id number] Use as [facility] ULTRASOFT 3-10 directed ity of LANCETS 00:00: for once a a s Misc day blood Medical glucose Branch monitoring for ICD: E11.9 ONETOUCH 2020-0 Yes [id number] Use as [facility] SURESOFT 3-10 directed ity of LANCING DEV 00:00: for once a 28 gauge day blood Medica l Misc glucose Branch monitoring for ICD: E11.9 ONETOUCH 2020-0 Yes [id number] Use as [facility] ULTRASOFT 3-10 directed ity of LANCETS 00:00: for [place] Misc [place] blood [facility] glucose Branch monitoring for ICD: E11.9 ONETOUCH 2020-0 Yes [id number] Use as [facility] SURESOFT 3-10 directed ity of LANCING DEV 00:00: for once a 28 gauge day blood Medica l Misc glucose Branch monitoring for ICD: E11.9 ONETOUCH 2020-0 Yes [id number] Use as [facility] ULTRASOFT 3-10 directed ity of LANCETS 00:00: for once [place] Misc day blood Medical glucose Branch monitoring for ICD: E11.9 ONETOUCH 2020-0 Yes [id number] Use as [facility] SURESOFT 3-10 directed ity of LANCING DEV 00:00: for once a 28 gauge day blood Medica l Misc glucose Branch monitoring for ICD: E11.9 ONETOUCH 2020-0 Yes [id number] Use as [facility] ULTRASOFT 3-10 directed ity of LANCETS 00:00: for once [place] Misc day blood [facility] glucose Branch monitoring for ICD: E11.9 ONETOUCH 2020-0 Yes [id number] Use as [facility] SURESOFT 3-10 directed ity of LANCING DEV 00:00: for once a 28 gauge day blood Medica l Misc glucose Branch monitoring for ICD: E11.9 ONETOUCH 2020-0 Yes [id number] Use as [facility] ULTRASOFT 3-10 directed ity of LANCETS 00:00: for once [place] Misc day blood [facility] glucose Branch monitoring for ICD: E11.9 ONETOUCH 2020-0 Yes [id number] Use as [facility] SURESOFT 3-10 directed ity of LANCING DEV 00:00: for once a 28 gauge day blood Medica l Misc glucose Branch monitoring for ICD: E11.9 ONETOUCH 2020-0 Yes [id number] Use as [facility] ULTRASOFT 3-10 directed ity of LANCETS 00:00: for once [place] Misc day blood [facility] glucose Branch monitoring for ICD: E11.9 ONETOUCH 2020-0 Yes [id number] Use as [facility] SURESOFT 3-10 directed ity of LANCING DEV 00:00: for once a 28 gauge day blood Medica l Misc glucose Branch monitoring for ICD: E11.9 ONETOUCH 2019-0 Yes [id number] Use as [facility] ULTRASOFT 3-10 directed ity of LANCETS 00:00: for once a a s Misc day blood Medical glucose Branch monitoring for ICD: E11.9 ONETOUCH 2019-0 Yes [id number] Use as [facility] SURESOFT 3-10 directed ity of LANCING DEV 00:00: for once a 28 gauge day blood Medica l Misc glucose Branch monitoring for ICD: E11.9 ONETOUCH 2019-0 Yes [id number] Use as [facility] ULTRASOFT 3-10 directed ity of LANCETS 00:00: for once a a s Misc day blood Medical glucose Branch monitoring for ICD: E11.9 ONETOUCH 2019-0 Yes [id number] Use as [facility] SURESOFT 3-10 directed ity of LANCING DEV 00:00: for once a 28 gauge day blood Medica l Misc glucose Branch monitoring for ICD: E11.9 ONETOUCH 2019-0 Yes [id number] Use as [facility] ULTRASOFT 3-10 directed ity of LANCETS 00:00: for once a a s Misc day blood Medical glucose Branch monitoring for ICD: E11.9 ONETOUCH 2019-0 Yes [id number] Use as [facility] SURESOFT 3-10 directed ity of LANCING DEV 00:00: for once a 28 gauge day blood Medica l Misc glucose Branch monitoring for ICD: E11.9 ONETOUCH 2019-0 Yes [id number] Use as [facility] ULTRASOFT 3-10 directed ity of LANCETS 00:00: for once a a s Misc day blood Medical glucose Branch monitoring for ICD: E11.9 ONETOUCH 2019-0 Yes [id number] Use as [facility] SURESOFT 3-10 directed ity of LANCING DEV 00:00: for once a 28 gauge day blood Medica l Misc glucose Branch monitoring for ICD: E11.9 ONETOUCH 2019-0 Yes [id number] Use as [facility] ULTRASOFT 3-10 directed ity of LANCETS 00:00: for once [place] Misc 00 day blood Medical glucose Branch monitoring for ICD: E11.9 ONETOUCH 2020-0 Yes [id number] Use as [facility] SURESOFT 3-10 directed ity of LANCING DEV 00:00: for once a 28 gauge day blood Medica l Misc glucose Branch monitoring for ICD: E11.9 ONETOUCH 2020-0 Yes [id number] Use as [facility] ULTRASOFT 3-10 directed ity of LANCETS 00:00: for once a a s Misc day blood Medical glucose Branch monitoring for ICD: E11.9 ONETOUCH 2020-0 Yes [id number] Use as [facility] SURESOFT 3-10 directed ity of LANCING DEV 00:00: for once a 28 gauge day blood Medica l Misc glucose Branch monitoring for ICD: E11.9 ONETOUCH 2020-0 Yes [id number] Use as [facility] ULTRASOFT 3-10 directed ity of LANCETS 00:00: for once a a s Misc day blood Medical glucose Branch monitoring for ICD: E11.9 etodolac 2020-0 Yes [id number] 500mg Take 1 [facility] 500 mg 1-08 tablet by ity of tablet 00:00: mouth (two) Medical times Branch daily. ondansetron 2020-0 Yes [id number] 4mg Take 1 [facility] ([facility]) 4 1-08 tablet by ity of mg tablet 00:00: mouth every 8 Medical (eight) Branch hours as needed for Nausea and Vomiting (N/V). etodolac 2020-0 Yes [id number] 500mg Take 1 [facility] 500 mg 1-08 tablet by ity of tablet 00:00: mouth 2 (two) Medical times Branch daily. ondansetron 2020-0 Yes [id number] 4mg Take 1 [facility] ([facility]) 4 1-08 tablet by ity of mg tablet 00:00: mouth 00 every 8 Medical (eight) Branch hours as needed for Nausea and Vomiting (N/V). etodolac 2020-0 Yes [id number] 500mg Take 1 [facility] 500 mg 1-08 tablet by [facility]y of tablet 00:00: mouth 2 (two) Medical times Branch daily. ondansetron 2020-0 Yes [id number] 4mg Take 1 [facility] ([facility]) 4 1-08 tablet by ity of mg tablet 00:00: mouth [place] 00 every 8 Medical (eight) Branch hours as needed for Nausea and Vomiting (N/V). etodolac 2020-0 Yes [id number] 500mg Take 1 [facility] 500 mg 1-08 tablet by [facility]y of tablet 00:00: mouth 2 [place] 00 (two) Medical times Branch daily. ondansetron 2020-0 Yes [id number] 4mg Take 1 [facility] ([facility]) 4 1-08 tablet by ity of mg tablet 00:00: mouth [place] 00 every 8 Medical (eight) Branch hours as needed for Nausea and Vomiting (N/V). etodolac 2020-0 Yes [id number] 500mg Take 1 [facility] 500 mg 1-08 tablet by ity of tablet 00:00: mouth 2 [place] 00 (two) Medical times Branch daily. ondansetron 2020-0 Yes [id number] 4mg Take 1 [facility] ([facility]) 4 1-08 tablet by ity of mg tablet 00:00: mouth [place] 00 every 8 Medical (eight) Branch hours as needed for Nausea and Vomiting (N/V). etodolac 2020-0 Yes [id number] 500mg Take 1 [facility] 500 mg 1-08 tablet by [facility]y of tablet 00:00: mouth 2 00 (two) Medical times Branch daily. ondansetron 2020-0 Yes [id number] 4mg Take 1 [facility] ([facility]) 4 1-08 tablet by ity of mg tablet 00:00: mouth [place] 00 every 8 Medical (eight) Branch hours as needed for Nausea and Vomiting (N/V). etodolac 2020-0 Yes [id number] 500mg Take 1 [facility] 500 mg 1-08 tablet by ity of tablet 00:00: mouth 2 [place] 00 (two) Medical times Branch daily. ondansetron 2020-0 Yes [id number] 4mg Take 1 [facility] ([facility]FR[facility]) 4 1-08 tablet by ity of mg tablet 00:00: mouth [place] 00 every 8 Medical (eight) Branch hours as needed for Nausea and Vomiting (N/V). etodolac 2020-0 Yes [id number] 500mg Take 1 [facility] 500 mg 1-08 tablet by [facility]y of tablet 00:00: mouth 2 00 (two) Medical times Branch daily. ondansetron 2020-0 Yes [id number] 4mg Take 1 [facility] ([facility]) 4 1-08 tablet by ity of mg tablet 00:00: mouth [place] 00 every 8 Medical (eight) Branch hours as needed for Nausea and Vomiting (N/V). etodolac 2020-0 Yes [id number] 500mg Take 1 [facility] 500 mg 1-08 tablet by [facility]y of tablet 00:00: mouth 2 00 (two) Medical times Branch daily. ondansetron 2020-0 Yes [id number] 4mg Take 1 [facility] ([facility]) 4 1-08 tablet by ity of mg tablet 00:00: mouth [place] 00 every 8 Medical (eight) Branch hours as needed for Nausea and Vomiting (N/V). etodolac 2020-0 Yes [id number] 500mg Take 1 [facility] 500 mg 1-08 tablet by [facility]y of tablet 00:00: mouth (two) Medical times Branch daily. ondansetron 2020-0 Yes [id number] 4mg Take 1 [facility] ([facility]) 4 1-08 tablet by ity of mg tablet 00:00: mouth [place] 00 every 8 Medical (eight) Branch hours as needed for Nausea and Vomiting (N/V). etodolac 2020-0 Yes [id number] 500mg Take 1 [facility] 500 mg 1-08 tablet by [facility]y of tablet 00:00: mouth (two) Medical times Branch daily. ondansetron 2020-0 Yes [id number] 4mg Take 1 [facility] ([facility]) 4 1-08 tablet by ity of mg tablet 00:00: mouth [place] 00 every 8 Medical (eight) Branch hours as needed for Nausea and Vomiting (N/V). etodolac 2020-0 Yes [id number] 500mg Take 1 [facility] 500 mg 1-08 tablet by [facility]y of tablet 00:00: mouth 2 (two) Medical times Branch daily. ondansetron 2020-0 Yes [id number] 4mg Take 1 [facility] ([facility]) 4 1-08 tablet by ity of mg tablet 00:00: mouth [place] 00 every 8 Medical (eight) Branch hours as needed for Nausea and Vomiting (N/V). etodolac 2020-0 Yes [id number] 500mg Take 1 [facility] 500 mg 1-08 tablet by ity of tablet 00:00: mouth 2 (two) Medical times Branch daily. ondansetron 2020-0 Yes [id number] 4mg Take 1 [facility] ([facility]) 4 1-08 tablet by ity of mg tablet 00:00: mouth [place] 00 every 8 Medical (eight) Branch hours as needed for Nausea and Vomiting (N/V). etodolac 2020-0 Yes [id number] 500mg Take 1 [facility] 500 mg 1-08 tablet by ity of tablet 00:00: mouth 2 00 (two) Medical times Branch daily. ondansetron 2020-0 Yes [id number] 4mg Take 1 [facility] ([facility]) 4 1-08 tablet by ity of mg tablet 00:00: mouth [place] 00 every 8 Medical (eight) Branch hours as needed for Nausea and Vomiting (N/V). etodolac 2020-0 Yes [id number] 500mg Take 1 [facility] 500 mg 1-08 tablet by ity of tablet 00:00: mouth (two) Medical times Branch daily. ondansetron 2020-0 Yes [id number] 4mg Take 1 [facility] ([facility]) 4 1-08 tablet by ity of mg tablet 00:00: mouth [place] 00 every 8 Medical (eight) Branch hours as needed for Nausea and Vomiting (N/V). etodolac 2020-0 Yes [id number] 500mg Take 1 [facility] 500 mg 1-08 tablet by [facility]y of tablet 00:00: mouth (two) Medical times Branch daily. ondansetron 2020-0 Yes [id number] 4mg Take 1 [facility] ([facility]) 4 1-08 tablet by ity of mg tablet 00:00: mouth [place] 00 every 8 Medical (eight) Branch hours as needed for Nausea and Vomiting (N/V). etodolac 2020-0 Yes [id number] 500mg Take 1 [facility] 500 mg 1-08 tablet by ity of tablet 00:00: mouth 2 (two) Medical times Branch daily. ondansetron 2020-0 Yes [id number] 4mg Take 1 [facility] ([facility]) 4 1-08 tablet by ity of mg tablet 00:00: mouth [place] 00 every 8 Medical (eight) Branch hours as needed for Nausea and Vomiting (N/V). etodolac 2020-0 Yes [id number] 500mg Take 1 [facility] 500 mg 1-08 tablet by ity of tablet 00:00: mouth 2 00 (two) Medical times Branch daily. ondansetron 2020-0 Yes [id number] 4mg Take 1 [facility] ([facility]) 4 1-08 tablet by ity of mg tablet 00:00: mouth [place] 00 every 8 Medical (eight) Branch hours as needed for Nausea and Vomiting (N/V). etodolac 2020-0 Yes [id number] 500mg Take 1 [facility] 500 mg 1-08 tablet by [facility]y of tablet 00:00: mouth 2 00 (two) Medical times Branch daily. ondansetron 2020-0 Yes [id number] 4mg Take 1 [facility] ([facility]) 4 1-08 tablet by ity of mg tablet 00:00: mouth [place] 00 every 8 Medical (eight) Branch hours as needed for Nausea and Vomiting (N/V). etodolac 2020-0 Yes [id number] 500mg Take 1 [facility] 500 mg 1-08 tablet by [facility]y of tablet 00:00: mouth 2 00 (two) Medical times Branch daily. ondansetron 2020-0 Yes [id number] 4mg Take 1 [facility] ([facility]) 4 1-08 tablet by ity of mg tablet 00:00: mouth [place] 00 every 8 Medical (eight) Branch hours as needed for Nausea and Vomiting (N/V). etodolac 2020-0 Yes [id number] 500mg Take 1 [facility] 500 mg 1-08 tablet by [facility]y of tablet 00:00: mouth 2 00 (two) Medical times Branch daily. ondansetron 2020-0 Yes [id number] 4mg Take 1 [facility] ([facility]) 4 1-08 tablet by ity of mg tablet 00:00: mouth [place] 00 every 8 Medical (eight) Branch hours as needed for Nausea and Vomiting (N/V). etodolac 2020-0 Yes [id number] 500mg Take 1 [facility] 500 mg 1-08 tablet by [facility]y of tablet 00:00: mouth 2 00 (two) Medical times Branch daily. ondansetron 2020-0 Yes [id number] 4mg Take 1 [facility] ([facility]) 4 1-08 tablet by ity of mg tablet 00:00: mouth [place] 00 every 8 Medical (eight) Branch hours as needed for Nausea and Vomiting (N/V). etodolac 2020-0 Yes [id number] 500mg Take 1 [facility] 500 mg 1-08 tablet by ity of tablet 00:00: mouth 2 [place] 00 (two) Medical times Branch daily. ondansetron 2020-0 Yes [id number] 4mg Take 1 [facility] ([facility]) 4 1-08 tablet by ity of mg tablet 00:00: mouth [place] 00 every 8 Medical (eight) Branch hours as needed for Nausea and Vomiting (N/V). etodolac 2020-0 Yes [id number] 500mg Take 1 [facility] 500 mg 1-08 tablet by [facility]y of tablet 00:00: mouth 2 [place] 00 (two) Medical times Branch daily. ondansetron 2020-0 Yes [id number] 4mg Take 1 [facility] ([facility]) 4 1-08 tablet by ity of mg tablet 00:00: mouth [place] 00 every 8 Medical (eight) Branch hours as needed for Nausea and Vomiting (N/V). etodolac 2020-0 Yes [id number] 500mg Take 1 [facility] 500 mg 1-08 tablet by ity of tablet 00:00: mouth 2 00 (two) Medical times Branch daily. ondansetron 2020-0 Yes [id number] 4mg Take 1 [facility] ([facility]) 4 1-08 tablet by ity of mg tablet 00:00: mouth [place] 00 every 8 Medical (eight) Branch hours as needed for Nausea and Vomiting (N/V). etodolac 2020-0 Yes [id number] 500mg Take 1 [facility] 500 mg 1-08 tablet by [facility]y of tablet 00:00: mouth 2 [place] 00 (two) Medical times Branch daily. ondansetron 2020-0 Yes [id number] 4mg Take 1 [facility] ([facility]) 4 1-08 tablet by ity of mg tablet 00:00: mouth [place] 00 every 8 Medical (eight) Branch hours as needed for Nausea and Vomiting (N/V). etodolac 2020-0 Yes [id number] 500mg Take 1 [facility] 500 mg 1-08 tablet by ity of tablet 00:00: mouth 2 [place] 00 (two) Medical times Branch daily. ondansetron 2020-0 Yes [id number] 4mg Take 1 [facility] ([facility]) 4 1-08 tablet by ity of mg tablet 00:00: mouth [place] 00 every 8 Medical (eight) Branch hours as needed for Nausea and Vomiting (N/V). etodolac 2020-0 Yes [id number] 500mg Take 1 [facility] 500 mg 1-08 tablet by ity of tablet 00:00: mouth 2 [place] 00 (two) Medical times Branch daily. ondansetron 2020-0 Yes [id number] 4mg Take 1 [facility] ([facility]) 4 1-08 tablet by ity of mg tablet 00:00: mouth [place] 00 every 8 Medical (eight) Branch hours as needed for Nausea and Vomiting (N/V). etodolac 2020-0 Yes [id number] 500mg Take 1 [facility] 500 mg 1-08 tablet by [facility]y of tablet 00:00: mouth 2 [place] 00 (two) Medical times Branch daily. ondansetron 2020-0 Yes [id number] 4mg Take 1 [facility] ([facility]) 4 1-08 tablet by ity of mg tablet 00:00: mouth [place] 00 every 8 Medical (eight) Branch hours as needed for Nausea and Vomiting (N/V). etodolac 2020-0 Yes [id number] 500mg Take 1 [facility] 500 mg 1-08 tablet by [facility] of tablet 00:00: mouth 2 00 (two) Medical times Branch daily. ondansetron 2020-0 Yes [id number] 4mg Take 1 [facility] ([facility]) 4 1-08 tablet by ity of mg tablet 00:00: mouth [place] 00 every 8 Medical (eight) Branch hours as needed for Nausea and Vomiting (N/V). etodolac 2020-0 Yes [id number] 500mg Take 1 [facility] 500 mg 1-08 tablet by [facility] of tablet 00:00: mouth 2 [place] 00 (two) Medical times Branch daily. ondansetron 2020-0 Yes [id number] 4mg Take 1 [facility] ([facility]) 4 1-08 tablet by ity of mg tablet 00:00: mouth [place] 00 every 8 Medical (eight) Branch hours as needed for Nausea and Vomiting (N/V). etodolac 2020-0 Yes [id number] 500mg Take 1 [facility] 500 mg 1-08 tablet by [facility] of tablet 00:00: mouth 2 (two) Medical times Branch daily. ondansetron 2020-0 Yes [id number] 4mg Take 1 [facility] ([facility]) 4 1-08 tablet by ity of mg tablet 00:00: mouth [place] 00 every 8 Medical (eight) Branch hours as needed for Nausea and Vomiting (N/V). etodolac 2020-0 Yes [id number] 500mg Take 1 [facility] 500 mg 1-08 tablet by [facility] of tablet 00:00: mouth 2 00 (two) Medical times Branch daily. ondansetron 2020-0 Yes [id number] 4mg Take 1 [facility] ([facility]) 4 1-08 tablet by [facility]y of mg tablet 00:00: mouth [place] 00 every 8 Medical (eight) Branch hours as needed for Nausea and Vomiting (N/V). etodolac 2020-0 Yes [id number] 500mg Take 1 [facility] 500 mg 1-08 tablet by [facility] of tablet 00:00: mouth (two) Medical times Branch daily. ondansetron 2020-0 Yes [id number] 4mg Take 1 [facility] ([facility]) 4 1-08 tablet by ity of mg tablet 00:00: mouth [place] 00 every 8 Medical (eight) Branch hours as needed for Nausea and Vomiting (N/V). etodolac 2020-0 Yes [id number] 500mg Take 1 [facility] 500 mg 1-08 tablet by [facility] of tablet 00:00: mouth (two) Medical times Branch daily. ondansetron 2020-0 Yes [id number] 4mg Take 1 [facility] ([facility]) 4 1-08 tablet by [facility]y of mg tablet 00:00: mouth [place] 00 every 8 Medical (eight) Branch hours as needed for Nausea and Vomiting (N/V). etodolac 2020-0 Yes [id number] 500mg Take 1 [facility] 500 mg 1-08 tablet by [facility] of tablet 00:00: mouth 2 (two) Medical times Branch daily. ondansetron 2020-0 Yes [id number] 4mg Take 1 [facility] ([facility]) 4 1-08 tablet by [facility]y of mg tablet 00:00: mouth [place] 00 every 8 Medical (eight) Branch hours as needed for Nausea and Vomiting (N/V). etodolac 2020-0 Yes [id number] 500mg Take 1 [facility] 500 mg 1-08 tablet by [facility] of tablet 00:00: mouth 2 00 (two) Medical times Branch daily. ondansetron 2020-0 Yes [id number] 4mg Take 1 [facility] ([facility]) 4 1-08 tablet by ity of mg tablet 00:00: mouth [place] 00 every 8 Medical (eight) Branch hours as needed for Nausea and Vomiting (N/V). etodolac 2020-0 Yes [id number] 500mg Take 1 [facility] 500 mg 1-08 tablet by [facility] of tablet 00:00: mouth 2 00 (two) Medical times Branch daily. ondansetron 2020-0 Yes [id number] 4mg Take 1 [facility] ([facility]) 4 1-08 tablet by [facility]y of mg tablet 00:00: mouth [place] 00 every 8 Medical (eight) Branch hours as needed for Nausea and Vomiting (N/V). etodolac 2020-0 Yes [id number] 500mg Take 1 [facility] 500 mg 1-08 tablet by [facility] of tablet 00:00: mouth (two) Medical times Branch daily. ondansetron 2020-0 Yes [id number] 4mg Take 1 [facility] ([facility]) 4 1-08 tablet by [facility] of mg tablet 00:00: mouth [place] 00 every 8 Medical (eight) Branch hours as needed for Nausea and Vomiting (N/V). etodolac 2020-0 Yes [id number] 500mg Take 1 [facility] 500 mg 1-08 tablet by [facility] of tablet 00:00: mouth (two) Medical times Branch daily. ondansetron 2020-0 Yes [id number] 4mg Take 1 [facility] ([facility]) 4 1-08 tablet by [facility] of mg tablet 00:00: mouth [place] 00 every 8 Medical (eight) Branch hours as needed for Nausea and Vomiting (N/V). etodolac 2020-0 Yes [id number] 500mg Take 1 [facility] 500 mg 1-08 tablet by [facility] of tablet 00:00: mouth 2 (two) Medical times Branch daily. ondansetron 2020-0 Yes [id number] 4mg Take 1 [facility] ([facility]) 4 1-08 tablet by [facility] of mg tablet 00:00: mouth [place] 00 every 8 Medical (eight) Branch hours as needed for Nausea and Vomiting (N/V). etodolac 2020-0 Yes [id number] 500mg Take 1 [facility] 500 mg 1-08 tablet by [facility] of tablet 00:00: mouth 2 [place] 00 (two) Medical times Branch daily. ondansetron 2020-0 Yes [id number] 4mg Take 1 [facility] ([facility]) 4 1-08 tablet by [facility] of mg tablet 00:00: mouth [place] 00 every 8 Medical (eight) Branch hours as needed for Nausea and Vomiting (N/V). etodolac 2020-0 Yes [id number] 500mg Take 1 [facility] 500 mg 1-08 tablet by [facility] of tablet 00:00: mouth 2 00 (two) Medical times Branch daily. ondansetron 2020-0 Yes [id number] 4mg Take 1 [facility] ([facility]) 4 1-08 tablet by [facility] of mg tablet 00:00: mouth [place] 00 every 8 Medical (eight) Branch hours as needed for Nausea and Vomiting (N/V). etodolac 2020-0 Yes [id number] 500mg Take 1 [facility] 500 mg 1-08 tablet by [facility] of tablet 00:00: mouth 2 00 (two) Medical times Branch daily. ondansetron 2020-0 Yes [id number] 4mg Take 1 [facility] ([facility]) 4 1-08 tablet by [facility] of mg tablet 00:00: mouth [place] 00 every 8 Medical (eight) Branch hours as needed for Nausea and Vomiting (N/V). etodolac 2020-0 Yes [id number] 500mg Take 1 [facility] 500 mg 1-08 tablet by [facility] of tablet 00:00: mouth 2 00 (two) Medical times Branch daily. ondansetron 2020-0 Yes [id number] 4mg Take 1 [facility] ([facility]) 4 1-08 tablet by [facility] of mg tablet 00:00: mouth [place] 00 every 8 Medical (eight) Branch hours as needed for Nausea and Vomiting (N/V). etodolac 2020-0 Yes [id number] 500mg Take 1 [facility] 500 mg 1-08 tablet by [facility] of tablet 00:00: mouth 2 [place] 00 (two) Medical times Branch daily. ondansetron 2020-0 Yes [id number] 4mg Take 1 [facility] ([facility]) 4 1-08 tablet by [facility] of mg tablet 00:00: mouth [place] 00 every 8 Medical (eight) Branch hours as needed for Nausea and Vomiting (N/V). etodolac 2020-0 Yes [id number] 500mg Take 1 [facility] 500 mg 1-08 tablet by [facility] of tablet 00:00: mouth 2 [place] 00 (two) Medical times Branch daily. ondansetron 2020-0 Yes [id number] 4mg Take 1 [facility] ([facility]) 4 1-08 tablet by [facility] of mg tablet 00:00: mouth [place] 00 every 8 Medical (eight) Branch hours as needed for Nausea and Vomiting (N/V). etodolac 2020-0 Yes [id number] 500mg Take 1 [facility] 500 mg 1-08 tablet by [facility] of tablet 00:00: mouth 2 00 (two) Medical times Branch daily. ondansetron 2020-0 Yes [id number] 4mg Take 1 [facility] ([facility]) 4 1-08 tablet by [facility] of mg tablet 00:00: mouth [place] 00 every 8 Medical (eight) Branch hours as needed for Nausea and Vomiting (N/V). etodolac 2020-0 Yes [id number] 500mg Take 1 [facility] 500 mg 1-08 tablet by [facility] of tablet 00:00: mouth 2 00 (two) Medical times Branch daily. ondansetron 2020-0 Yes [id number] 4mg Take 1 [facility] ([facility]) 4 1-08 tablet by [facility] of mg tablet 00:00: mouth [place] 00 every 8 Medical (eight) Branch hours as needed for Nausea and Vomiting (N/V). etodolac 2020-0 Yes [id number] 500mg Take 1 [facility] 500 mg 1-08 tablet by [facility] of tablet 00:00: mouth 2 00 (two) Medical times Branch daily. ondansetron 2020-0 Yes [id number] 4mg Take 1 [facility] ([facility]) 4 1-08 tablet by [facility]y of mg tablet 00:00: mouth [place] 00 every 8 Medical (eight) Branch hours as needed for Nausea and Vomiting (N/V). etodolac 2020-0 Yes [id number] 500mg Take 1 [facility] 500 mg 1-08 tablet by [facility] of tablet 00:00: mouth 2 [place] 00 (two) Medical times Branch daily. ondansetron 2020-0 Yes [id number] 4mg Take 1 [facility] ([facility]) 4 1-08 tablet by ity of mg tablet 00:00: mouth [place] 00 every 8 Medical (eight) Branch hours as needed for Nausea and Vomiting (N/V). etodolac 2020-0 Yes [id number] 500mg Take 1 [facility] 500 mg 1-08 tablet by [facility] of tablet 00:00: mouth 2 [place] 00 (two) Medical times Branch daily. ondansetron 2020-0 Yes [id number] 4mg Take 1 [facility] ([facility]) 4 1-08 tablet by [facility]y of mg tablet 00:00: mouth [place] 00 every 8 Medical (eight) Branch hours as needed for Nausea and Vomiting (N/V). etodolac 2020-0 Yes [id number] 500mg Take 1 [facility] 500 mg 1-08 tablet by [facility] of tablet 00:00: mouth 2 [place] 00 (two) Medical times Branch daily. ondansetron 2020-0 Yes [id number] 4mg Take 1 [facility] ([facility]) 4 1-08 tablet by [facility] of mg tablet 00:00: mouth [place] 00 every 8 Medical (eight) Branch hours as needed for Nausea and Vomiting (N/V). etodolac 2020-0 Yes [id number] 500mg Take 1 [facility] 500 mg 1-08 tablet [facility] tablet 00:00: mouth 2 00 (two) [facility] times [facility] daily. ondansetron 2020-0 Yes [id number] 4mg Take 1 [facility] 4 1-08 tablet [facility] tablet 00:00: mouth [place] 00 every 8 Medical (eight) Branch hours as needed for Nausea and Vomiting (N/V). etodolac 2020-0 Yes [id number] 500mg Take 1 [facility] 500 mg 1-08 tablet [facility] tablet 00:00: mouth 2 [place] 00 (two) Medical times [facility] daily. ondansetron 2020-0 Yes [id number] 4mg Take 1 [facility] ([facility]) 4 1-08 tablet [facility] tablet 00:00: mouth [place] 00 every 8 Medical (eight) Branch hours as needed for Nausea and Vomiting (N/V). etodolac 2020-0 Yes [id number] 500mg Take 1 [facility] 500 mg 1-08 tablet [facility] tablet 00:00: mouth 2 [place] 00 (two) Medical times [facility] daily. ondansetron 2020-0 Yes [id number] 4mg Take 1 [facility] ([facility]) 4 1-08 tablet [facility] tablet 00:00: mouth [place] 00 every 8 Medical (eight) Branch hours as needed for Nausea and Vomiting (N/V). etodolac 2020-0 Yes [id number] 500mg Take 1 [facility] 500 mg 1-08 tablet [facility] tablet 00:00: mouth 2 00 (two) Medical times [facility] daily. ondansetron 2020-0 Yes [id number] 4mg Take 1 [facility] ([facility]) 4 1-08 tablet [facility] tablet 00:00: mouth [place] 00 every 8 Medical (eight) Branch hours as needed for Nausea and Vomiting (N/V). etodolac 2020-0 Yes [id number] 500mg Take 1 [facility] 500 mg 1-08 tablet [facility] tablet 00:00: mouth (two) Medical times [facility] daily. ondansetron 2020-0 Yes [id number] 4mg Take 1 [facility] ([facility]) 4 1-08 tablet [facility] tablet 00:00: mouth [place] 00 every 8 Medical (eight) Branch hours as needed for Nausea and Vomiting (N/V). etodolac 2020-0 Yes [id number] 500mg Take 1 [facility] 500 mg 1-08 tablet [facility] tablet 00:00: mouth (two) [facility] times [facility] daily. ondansetron 2020-0 Yes [id number] 4mg Take 1 [facility] ([facility]) 4 1-08 tablet [facility] tablet 00:00: mouth [place] 00 every 8 Medical (eight) Branch hours as needed for Nausea and Vomiting (N/V). etodolac 2020-0 Yes [id number] 500mg Take 1 [facility] 500 mg 1-08 tablet [facility] tablet 00:00: mouth 2 00 (two) [facility] times [facility] daily. ondansetron 2020-0 Yes [id number] 4mg Take 1 [facility] ([facility]) 4 1-08 tablet [facility] tablet 00:00: mouth [place] 00 every 8 Medical (eight) Branch hours as needed for Nausea and Vomiting (N/V). etodolac 2020-0 Yes [id number] 500mg Take 1 [facility] 500 mg 1-08 tablet [facility] tablet 00:00: mouth 2 (two) Medical times [facility] daily. ondansetron 2020-0 Yes [id number] 4mg Take 1 [facility] ([facility]) 4 1-08 tablet [facility] tablet 00:00: mouth [place] 00 every 8 Medical (eight) Branch hours as needed for Nausea and Vomiting (N/V). etodolac 2020-0 Yes [id number] 500mg Take 1 [facility] 500 mg 1-08 tablet [facility] tablet 00:00: mouth 2 00 (two) Medical times [facility] daily. ondansetron 2020-0 Yes [id number] 4mg Take 1 [facility] ([facility]) 4 1-08 tablet [facility] tablet 00:00: mouth [place] 00 every 8 Medical (eight) Branch hours as needed for Nausea and Vomiting (N/V). etodolac 2020-0 Yes [id number] 500mg Take 1 [facility] 500 mg 1-08 tablet [facility] tablet 00:00: mouth (two) Medical times [facility] daily. ondansetron 2020-0 Yes [id number] 4mg Take 1 [facility] ([facility]) 4 1-08 tablet [facility] tablet 00:00: mouth [place] 00 every 8 Medical (eight) Branch hours as needed for Nausea and Vomiting (N/V). etodolac 2020-0 Yes [id number] 500mg Take 1 [facility] 500 mg 1-08 tablet [facility] tablet 00:00: mouth (two) Medical times [facility] daily. ondansetron 2020-0 Yes [id number] 4mg Take 1 [facility] ([facility]) 4 1-08 tablet by [facility] tablet 00:00: mouth [place] 00 every 8 Medical (eight) Branch hours as needed for Nausea and Vomiting (N/V). etodolac 2020-0 Yes [id number] 500mg Take 1 [facility] 500 mg 1-08 tablet by [facility] tablet 00:00: mouth 2 (two) Medical times [facility] daily. ondansetron 2020-0 Yes [id number] 4mg Take 1 [facility] ([facility]) 4 1-08 tablet by [facility] tablet 00:00: mouth [place] 00 every 8 Medical (eight) Branch hours as needed for Nausea and Vomiting (N/V). etodolac 2020-0 Yes [id number] 500mg Take 1 [facility] 500 mg 1-08 tablet [facility] tablet 00:00: mouth 2 00 (two) Medical times [facility] daily. ondansetron 2020-0 Yes [id number] 4mg Take 1 [facility] ([facility]) 4 1-08 tablet by [facility] tablet 00:00: mouth [place] 00 every 8 Medical (eight) Branch hours as needed for Nausea and Vomiting (N/V). etodolac 2020-0 Yes [id number] 500mg Take 1 [facility] 500 mg 1-08 tablet [facility] tablet 00:00: mouth 2 00 (two) Medical times [facility] daily. ondansetron 2020-0 Yes [id number] 4mg Take 1 [facility] ([facility]) 4 1-08 tablet [facility] tablet 00:00: mouth [place] 00 every 8 Medical (eight) Branch hours as needed for Nausea and Vomiting (N/V). etodolac 2020-0 Yes [id number] 500mg Take 1 [facility] 500 mg 1-08 tablet by [facility] tablet 00:00: mouth 2 (two) Medical times [facility] daily. ondansetron 2020-0 Yes [id number] 4mg Take 1 [facility] ([facility]) 4 1-08 tablet by [facility] mg tablet 00:00: mouth [place] 00 every 8 Medical (eight) Branch hours as needed for Nausea and Vomiting (N/V). etodolac 2020-0 Yes [id number] 500mg Take 1 [facility] 500 mg 1-08 tablet by [facility] tablet 00:00: mouth 2 (two) Medical times [facility] daily. ondansetron 2020-0 Yes [id number] 4mg Take 1 [facility] ([facility]) 4 1-08 tablet by [facility] mg tablet 00:00: mouth [place] 00 every 8 Medical (eight) Branch hours as needed for Nausea and Vomiting (N/V). etodolac 2020-0 Yes [id number] 500mg Take 1 [facility] 500 mg 1-08 tablet by [facility] tablet 00:00: mouth 2 00 (two) Medical times [facility] daily. ondansetron 2020-0 Yes [id number] 4mg Take 1 [facility] ([facility]) 4 1-08 tablet by [facility] mg tablet 00:00: mouth [place] 00 every 8 Medical (eight) Branch hours as needed for Nausea and Vomiting (N/V). etodolac 2020-0 Yes [id number] 500mg Take 1 [facility] 500 mg 1-08 tablet [facility] tablet 00:00: mouth 2 00 (two) Medical times [facility] daily. ondansetron 2020-0 Yes [id number] 4mg Take 1 [facility] ([facility]) 4 1-08 tablet by [facility] mg tablet 00:00: mouth [place] 00 every 8 Medical (eight) Branch hours as needed for Nausea and Vomiting (N/V). etodolac 2020-0 Yes [id number] 500mg Take 1 [facility] 500 mg 1-08 tablet by [facility] tablet 00:00: mouth 2 (two) Medical times [facility] daily. ondansetron 2020-0 Yes [id number] 4mg Take 1 [facility] ([facility]) 4 1-08 tablet [facility] mg tablet 00:00: mouth [place] 00 every 8 Medical (eight) Branch hours as needed for Nausea and Vomiting (N/V). etodolac 2020-0 Yes [id number] 500mg Take 1 [facility] 500 mg 1-08 tablet [facility] tablet 00:00: mouth (two) Medical times [facility] daily. ondansetron 2020-0 Yes [id number] 4mg Take 1 [facility] ([facility]) 4 1-08 tablet by [facility] mg tablet 00:00: mouth [place] 00 every 8 Medical (eight) Branch hours as needed for Nausea and Vomiting (N/V). etodolac 2020-0 Yes [id number] 500mg Take 1 [facility] 500 mg 1-08 tablet [facility] tablet 00:00: mouth 2 (two) Medical times [facility] daily. ondansetron 2020-0 Yes [id number] 4mg Take 1 [facility] ([facility]) 4 1-08 tablet by [facility] tablet 00:00: mouth [place] 00 every 8 Medical (eight) Branch hours as needed for Nausea and Vomiting (N/V). etodolac 2020-0 Yes [id number] 500mg Take 1 [facility] 500 mg 1-08 tablet by [facility] tablet 00:00: mouth 2 (two) Medical times [facility] daily. ondansetron 2020-0 Yes [id number] 4mg Take 1 [facility] ([facility]) 4 1-08 tablet by [facility] mg tablet 00:00: mouth [place] 00 every 8 Medical (eight) Branch hours as needed for Nausea and Vomiting (N/V). etodolac 2020-0 Yes [id number] 500mg Take 1 [facility] 500 mg 1-08 tablet [facility] tablet 00:00: mouth 2 [place] 00 (two) Medical times [facility] daily. ondansetron 2020-0 Yes [id number] 4mg Take 1 [facility] ([facility]) 4 1-08 tablet by [facility] mg tablet 00:00: mouth [place] 00 every 8 Medical (eight) Branch hours as needed for Nausea and Vomiting (N/V). etodolac 2020-0 Yes [id number] 500mg Take 1 [facility] 500 mg 1-08 tablet by [facility] tablet 00:00: mouth 2 00 (two) Medical times [facility] daily. ondansetron 2020-0 Yes [id number] 4mg Take 1 [facility] ([facility]) 4 1-08 tablet [facility] tablet 00:00: mouth [place] 00 every 8 Medical (eight) Branch hours as needed for Nausea and Vomiting (N/V). etodolac 2020-0 Yes [id number] 500mg Take 1 [facility] 500 mg 1-08 tablet [facility] tablet 00:00: mouth 2 00 (two) Medical times [facility] daily. ondansetron 2020-0 Yes [id number] 4mg Take 1 [facility] ([facility]) 4 1-08 tablet by [facility] mg tablet 00:00: mouth [place] 00 every 8 Medical (eight) Branch hours as needed for Nausea and Vomiting (N/V). etodolac 2020-0 Yes [id number] 500mg Take 1 [facility] 500 mg 1-08 tablet by [facility] tablet 00:00: mouth 2 00 (two) Medical times [facility] daily. ondansetron 2020-0 Yes [id number] 4mg Take 1 [facility] ([facility]) 4 1-08 tablet by [facility] mg tablet 00:00: mouth [place] 00 every 8 Medical (eight) Branch hours as needed for Nausea and Vomiting (N/V). etodolac 2020-0 Yes [id number] 500mg Take 1 [facility] 500 mg 1-08 tablet by [facility] tablet 00:00: mouth 2 [place] 00 (two) Medical times [facility] daily. ondansetron 2020-0 Yes [id number] 4mg Take 1 [facility] ([facility]) 4 1-08 tablet by [facility] mg tablet 00:00: mouth [place] 00 every 8 Medical (eight) Branch hours as needed for Nausea and Vomiting (N/V). etodolac 2020-0 Yes [id number] 500mg Take 1 [facility] 500 mg 1-08 tablet by [facility] tablet 00:00: mouth 2 (two) Medical times [facility] daily. ondansetron 2020-0 Yes [id number] 4mg Take 1 [facility] ([facility]) 4 1-08 tablet by [facility] mg tablet 00:00: mouth [place] 00 every 8 Medical (eight) Branch hours as needed for Nausea and Vomiting (N/V). etodolac 2020-0 Yes [id number] 500mg Take 1 [facility] 500 mg 1-08 tablet by [facility] tablet 00:00: mouth (two) Medical times [facility] daily. ondansetron 2020-0 Yes [id number] 4mg Take 1 [facility] ([facility]) 4 1-08 tablet by [facility] mg tablet 00:00: mouth [place] 00 every 8 Medical (eight) Branch hours as needed for Nausea and Vomiting (N/V). etodolac 2020-0 Yes [id number] 500mg Take 1 [facility] 500 mg 1-08 tablet by [facility] tablet 00:00: mouth (two) Medical times [facility] daily. ondansetron 2020-0 Yes [id number] 4mg Take 1 [facility] ([facility]) 4 1-08 tablet by [facility] mg tablet 00:00: mouth [place] 00 every 8 Medical (eight) Branch hours as needed for Nausea and Vomiting (N/V). etodolac 2020-0 Yes [id number] 500mg Take 1 [facility] 500 mg 1-08 tablet by [facility] tablet 00:00: mouth 2 (two) Medical times [facility] daily. ondansetron 2020-0 Yes [id number] 4mg Take 1 [facility] ([facility]) 4 1-08 tablet by [facility] mg tablet 00:00: mouth [place] 00 every 8 Medical (eight) Branch hours as needed for Nausea and Vomiting (N/V). etodolac 2020-0 Yes [id number] 500mg Take 1 [facility] 500 mg 1-08 tablet by [facility] tablet 00:00: mouth 2 00 (two) Medical times [facility] daily. ondansetron 2020-0 Yes [id number] 4mg Take 1 [facility] ([facility]) 4 1-08 tablet by [facility] mg tablet 00:00: mouth [place] 00 every 8 Medical (eight) Branch hours as needed for Nausea and Vomiting (N/V). etodolac 2020-0 Yes [id number] 500mg Take 1 [facility] 500 mg 1-08 tablet by [facility] tablet 00:00: mouth 2 00 (two) Medical times [facility] daily. ondansetron 2020-0 Yes [id number] 4mg Take 1 [facility] ([facility]) 4 1-08 tablet by [facility] mg tablet 00:00: mouth [place] 00 every 8 Medical (eight) Branch hours as needed for Nausea and Vomiting (N/V). etodolac 2020-0 Yes [id number] 500mg Take 1 [facility] 500 mg 1-08 tablet by [facility] tablet 00:00: mouth (two) Medical times [facility] daily. ondansetron 2020-0 Yes [id number] 4mg Take 1 [facility] ([facility]) 4 1-08 tablet by [facility] mg tablet 00:00: mouth [place] 00 every 8 Medical (eight) Branch hours as needed for Nausea and Vomiting (N/V). etodolac 2020-0 Yes [id number] 500mg Take 1 [facility] 500 mg 1-08 tablet by [facility] tablet 00:00: mouth (two) Medical times [facility] daily. ondansetron 2020-0 Yes [id number] 4mg Take 1 [facility] ([facility]) 4 1-08 tablet by [facility] mg tablet 00:00: mouth [place] 00 every 8 Medical (eight) Branch hours as needed for Nausea and Vomiting (N/V). etodolac 2020-0 Yes [id number] 500mg Take 1 [facility] 500 mg 1-08 tablet by [facility] tablet 00:00: mouth 2 00 (two) Medical times [facility] daily. ondansetron 2020-0 Yes [id number] 4mg Take 1 [facility] ([facility]) 4 1-08 tablet by [facility] mg tablet 00:00: mouth [place] 00 every 8 Medical (eight) Branch hours as needed for Nausea and Vomiting (N/V). etodolac 2020-0 Yes [id number] 500mg Take 1 [facility] 500 mg 1-08 tablet by [facility] tablet 00:00: mouth 2 (two) Medical times [facility] daily. ondansetron 2020-0 Yes [id number] 4mg Take 1 [facility] ([facility]) 4 1-08 tablet by [facility] mg tablet 00:00: mouth [place] 00 every 8 Medical (eight) Branch hours as needed for Nausea and Vomiting (N/V). etodolac 2020-0 Yes [id number] 500mg Take 1 [facility] 500 mg 1-08 tablet by [facility] tablet 00:00: mouth 2 (two) Medical times [facility] daily. ondansetron 2020-0 Yes [id number] 4mg Take 1 [facility] ([facility]) 4 1-08 tablet by [facility] mg tablet 00:00: mouth [place] 00 every 8 Medical (eight) Branch hours as needed for Nausea and Vomiting (N/V). etodolac 2020-0 Yes [id number] 500mg Take 1 [facility] 500 mg 1-08 tablet by [facility] tablet 00:00: mouth (two) Medical times [facility] daily. ondansetron 2020-0 Yes [id number] 4mg Take 1 [facility] ([facility]) 4 1-08 tablet by [facility] mg tablet 00:00: mouth [place] 00 every 8 Medical (eight) Branch hours as needed for Nausea and Vomiting (N/V). etodolac 2020-0 Yes [id number] 500mg Take 1 [facility] 500 mg 1-08 tablet by [facility] tablet 00:00: mouth (two) Medical times [facility] daily. ondansetron 2020-0 Yes [id number] 4mg Take 1 [facility] ([facility]) 4 1-08 tablet by [facility] mg tablet 00:00: mouth [place] 00 every 8 Medical (eight) Branch hours as needed for Nausea and Vomiting (N/V). etodolac 2020-0 Yes [id number] 500mg Take 1 [facility] 500 mg 1-08 tablet by [facility] tablet 00:00: mouth 2 (two) Medical times [facility] daily. ondansetron 2020-0 Yes [id number] 4mg Take 1 [facility] ([facility]) 4 1-08 tablet by [facility] mg tablet 00:00: mouth [place] 00 every 8 Medical (eight) Branch hours as needed for Nausea and Vomiting (N/V). etodolac 2020-0 Yes [id number] 500mg Take 1 [facility] 500 mg 1-08 tablet by [facility] tablet 00:00: mouth 2 00 (two) Medical times [facility] daily. ondansetron 2020-0 Yes [id number] 4mg Take 1 [facility] ([facility]) 4 1-08 tablet by [facility] mg tablet 00:00: mouth [place] 00 every 8 Medical (eight) Branch hours as needed for Nausea and Vomiting (N/V). etodolac 2020-0 Yes [id number] 500mg Take 1 [facility] 500 mg 1-08 tablet by [facility] tablet 00:00: mouth 2 00 (two) Medical times [facility] daily. ondansetron 2020-0 Yes [id number] 4mg Take 1 [facility] ([facility]) 4 1-08 tablet by [facility] mg tablet 00:00: mouth [place] 00 every 8 Medical (eight) Branch hours as needed for Nausea and Vomiting (N/V). etodolac 2020-0 Yes [id number] 500mg Take 1 [facility] 500 mg 1-08 tablet by [facility] tablet 00:00: mouth 00 (two) Medical times [facility] daily. ondansetron 2020-0 Yes [id number] 4mg Take 1 [facility] ([facility]) 4 1-08 tablet by [facility] mg tablet 00:00: mouth [place] 00 every 8 Medical (eight) Branch hours as needed for Nausea and Vomiting (N/V). etodolac 2020-0 Yes [id number] 500mg Take 1 [facility] 500 mg 1-08 tablet by [facility] tablet 00:00: mouth 2 00 (two) Medical times [facility] daily. ondansetron 2020-0 Yes [id number] 4mg Take 1 [facility] ([facility]) 4 1-08 tablet by [facility] mg tablet 00:00: mouth [place] 00 every 8 Medical (eight) Branch hours as needed for Nausea and Vomiting (N/V). etodolac 2020-0 Yes [id number] 500mg Take 1 [facility] 500 mg 1-08 tablet by [facility] tablet 00:00: mouth 2 00 (two) Medical times [facility] daily. ondansetron 2020-0 Yes [id number] 4mg Take 1 [facility] ([facility]) 4 1-08 tablet by [facility] mg tablet 00:00: mouth [place] 00 every 8 Medical (eight) Branch hours as needed for Nausea and Vomiting (N/V). etodolac 2020-0 Yes [id number] 500mg Take 1 [facility] 500 mg 1-08 tablet by [facility] tablet 00:00: mouth 2 [place] 00 (two) Medical times [facility] daily. ondansetron 2020-0 Yes [id number] 4mg Take 1 [facility] ([facility]) 4 1-08 tablet by [facility] mg tablet 00:00: mouth [place] 00 every 8 Medical (eight) Branch hours as needed for Nausea and Vomiting (N/V). etodolac 2020-0 Yes [id number] 500mg Take 1 [facility] 500 mg 1-08 tablet by [facility] tablet 00:00: mouth 2 [place] 00 (two) Medical times [facility] daily. ondansetron 2020-0 Yes [id number] 4mg Take 1 [facility] ([facility]) 4 1-08 tablet by [facility] mg tablet 00:00: mouth [place] 00 every 8 Medical (eight) Branch hours as needed for Nausea and Vomiting (N/V). etodolac 2020-0 Yes [id number] 500mg Take 1 [facility] 500 mg 1-08 tablet by [facility] tablet 00:00: mouth 2 00 (two) Medical times [facility] daily. ondansetron 2020-0 Yes [id number] 4mg Take 1 [facility] ([facility]) 4 1-08 tablet by [facility] mg tablet 00:00: mouth [place] 00 every 8 Medical (eight) Branch hours as needed for Nausea and Vomiting (N/V). etodolac 2020-0 Yes [id number] 500mg Take 1 [facility] 500 mg 1-08 tablet by [facility] tablet 00:00: mouth 2 00 (two) Medical times [facility] daily. ondansetron 2020-0 Yes [id number] 4mg Take 1 [facility] ([facility]) 4 1-08 tablet by [facility] mg tablet 00:00: mouth [place] 00 every 8 Medical (eight) Branch hours as needed for Nausea and Vomiting (N/V). etodolac 2020-0 Yes [id number] 500mg Take 1 [facility] 500 mg 1-08 tablet by [facility] tablet 00:00: mouth 2 00 (two) Medical times [facility] daily. ondansetron 2020-0 Yes [id number] 4mg Take 1 [facility] ([facility]) 4 1-08 tablet by [facility] mg tablet 00:00: mouth [place] 00 every 8 Medical (eight) Branch hours as needed for Nausea and Vomiting (N/V). etodolac 2020-0 Yes [id number] 500mg Take 1 [facility] 500 mg 1-08 tablet by [facility] tablet 00:00: mouth 2 00 (two) Medical times [facility] daily. ondansetron 2020-0 Yes [id number] 4mg Take 1 [facility] ([facility]) 4 1-08 tablet by [facility] mg tablet 00:00: mouth [place] 00 every 8 Medical (eight) Branch hours as needed for Nausea and Vomiting (N/V). etodolac 2020-0 Yes [id number] 500mg Take 1 [facility] 500 mg 1-08 tablet by [facility] tablet 00:00: mouth 2 (two) Medical times [facility] daily. ondansetron 2020-0 Yes [id number] 4mg Take 1 [facility] ([facility]) 4 1-08 tablet by [facility] mg tablet 00:00: mouth [place] 00 every 8 Medical (eight) Branch hours as needed for Nausea and Vomiting (N/V). etodolac 2020-0 Yes [id number] 500mg Take 1 [facility] 500 mg 1-08 tablet by [facility] tablet 00:00: mouth 2 (two) Medical times [facility] daily. ondansetron 2020-0 Yes [id number] 4mg Take 1 [facility] ([facility]) 4 1-08 tablet by [facility] mg tablet 00:00: mouth [place] 00 every 8 Medical (eight) Branch hours as needed for Nausea and Vomiting (N/V). etodolac 2020-0 Yes [id number] 500mg Take 1 [facility] 500 mg 1-08 tablet by [facility] tablet 00:00: mouth 2 00 (two) Medical times [facility] daily. ondansetron 2020-0 Yes [id number] 4mg Take 1 [facility] ([facility]) 4 1-08 tablet by [facility] mg tablet 00:00: mouth [place] 00 every 8 Medical (eight) Branch hours as needed for Nausea and Vomiting (N/V). etodolac 2020-0 Yes [id number] 500mg Take 1 [facility] 500 mg 1-08 tablet by [facility] tablet 00:00: mouth 2 (two) Medical times [facility] daily. ondansetron 2020-0 Yes [id number] 4mg Take 1 [facility] ([facility]) 4 1-08 tablet by [facility] mg tablet 00:00: mouth [place] 00 every 8 Medical (eight) Branch hours as needed for Nausea and Vomiting (N/V). etodolac 2020-0 Yes [id number] 500mg Take 1 [facility] 500 mg 1-08 tablet by [facility] tablet 00:00: mouth 2 00 (two) Medical times [facility] daily. ondansetron 2020-0 Yes [id number] 4mg Take 1 [facility] ([facility]) 4 1-08 tablet by [facility] mg tablet 00:00: mouth [place] 00 every 8 Medical (eight) Branch hours as needed for Nausea and Vomiting (N/V). etodolac 2020-0 Yes [id number] 500mg Take 1 [facility] 500 mg 1-08 tablet by [facility] tablet 00:00: mouth (two) Medical times [facility] daily. ondansetron 2020-0 Yes [id number] 4mg Take 1 [facility] ([facility]) 4 1-08 tablet by [facility] mg tablet 00:00: mouth [place] 00 every 8 Medical (eight) Branch hours as needed for Nausea and Vomiting (N/V). etodolac 2020-0 Yes [id number] 500mg Take 1 [facility] 500 mg 1-08 tablet by [facility] tablet 00:00: mouth (two) Medical times [facility] daily. ondansetron 2020-0 Yes [id number] 4mg Take 1 [facility] ([facility]) 4 1-08 tablet by [facility] mg tablet 00:00: mouth [place] 00 every 8 Medical (eight) Branch hours as needed for Nausea and Vomiting (N/V). etodolac 2020-0 Yes [id number] 500mg Take 1 [facility] 500 mg 1-08 tablet by [facility] tablet 00:00: mouth 2 (two) Medical times [facility] daily. ondansetron 2020-0 Yes [id number] 4mg Take 1 [facility] ([facility]) 4 1-08 tablet by [facility] mg tablet 00:00: mouth [place] 00 every 8 Medical (eight) Branch hours as needed for Nausea and Vomiting (N/V). etodolac 2020-0 Yes [id number] 500mg Take 1 [facility] 500 mg 1-08 tablet by [facility] tablet 00:00: mouth 2 00 (two) Medical times [facility] daily. ondansetron 2020-0 Yes [id number] 4mg Take 1 [facility] ([facility]) 4 1-08 tablet by [facility] mg tablet 00:00: mouth [place] 00 every 8 Medical (eight) Branch hours as needed for Nausea and Vomiting (N/V). etodolac 2020-0 Yes [id number] 500mg Take 1 [facility] 500 mg 1-08 tablet by [facility] tablet 00:00: mouth 2 00 (two) Medical times [facility] daily. ondansetron 2020-0 Yes [id number] 4mg Take 1 [facility] ([facility]) 4 1-08 tablet by [facility] mg tablet 00:00: mouth [place] 00 every 8 Medical (eight) Branch hours as needed for Nausea and Vomiting (N/V). etodolac 2020-0 Yes [id number] 500mg Take 1 [facility] 500 mg 1-08 tablet by [facility] tablet 00:00: mouth 2 (two) Medical times [facility] daily. ondansetron 2020-0 Yes [id number] 4mg Take 1 [facility] ([facility]) 4 1-08 tablet by [facility] mg tablet 00:00: mouth [place] 00 every 8 Medical (eight) Branch hours as needed for Nausea and Vomiting (N/V). etodolac 2020-0 Yes [id number] 500mg Take 1 [facility] 500 mg 1-08 tablet by [facility] tablet 00:00: mouth 2 00 (two) Medical times [facility] daily. ondansetron 2020-0 Yes [id number] 4mg Take 1 [facility] ([facility]) 4 1-08 tablet by [facility] mg tablet 00:00: mouth [place] 00 every 8 Medical (eight) Branch hours as needed for Nausea and Vomiting (N/V). etodolac 2020-0 Yes [id number] 500mg Take 1 [facility] 500 mg 1-08 tablet by [facility] tablet 00:00: mouth 2 00 (two) Medical times [facility] daily. ondansetron 2020-0 Yes [id number] 4mg Take 1 [facility] ([facility]) 4 1-08 tablet by [facility] mg tablet 00:00: mouth [place] 00 every 8 Medical (eight) Branch hours as needed for Nausea and Vomiting (N/V). etodolac 2020-0 Yes [id number] 500mg Take 1 [facility] 500 mg 1-08 tablet by [facility] tablet 00:00: mouth 2 00 (two) Medical times [facility] daily. ondansetron 2020-0 Yes [id number] 4mg Take 1 [facility] ([facility]) 4 1-08 tablet by [facility] mg tablet 00:00: mouth [place] 00 every 8 Medical (eight) Branch hours as needed for Nausea and Vomiting (N/V). etodolac 2020-0 Yes [id number] 500mg Take 1 [facility] 500 mg 1-08 tablet by [facility] tablet 00:00: mouth 2 00 (two) Medical times [facility] daily. ondansetron 2020-0 Yes [id number] 4mg Take 1 [facility] ([facility]) 4 1-08 tablet by [facility] tablet 00:00: mouth [place] 00 every 8 Medical (eight) Branch hours as needed for Nausea and Vomiting (N/V). etodolac 2020-0 Yes [id number] 500mg Take 1 [facility] 500 mg 1-08 tablet by [facility] tablet 00:00: mouth (two) Medical times [facility] daily. ondansetron 2020-0 Yes [id number] 4mg Take 1 [facility] ([facility]) 4 1-08 tablet by [facility] mg tablet 00:00: mouth [place] 00 every 8 Medical (eight) Branch hours as needed for Nausea and Vomiting (N/V). etodolac 2020-0 Yes [id number] 500mg Take 1 [facility] 500 mg 1-08 tablet by [facility] tablet 00:00: mouth 2 (two) Medical times [facility] daily. ondansetron 2020-0 Yes [id number] 4mg Take 1 [facility] ([facility]) 4 1-08 tablet by [facility] mg tablet 00:00: mouth [place] 00 every 8 Medical (eight) Branch hours as needed for Nausea and Vomiting (N/V). etodolac 2020-0 Yes [id number] 500mg Take 1 [facility] 500 mg 1-08 tablet by [facility] tablet 00:00: mouth 2 (two) Medical times [facility] daily. ondansetron 2020-0 Yes [id number] 4mg Take 1 [facility] ([facility]) 4 1-08 tablet by [facility] mg tablet 00:00: mouth [place] 00 every 8 Medical (eight) Branch hours as needed for Nausea and Vomiting (N/V). etodolac 2020-0 Yes [id number] 500mg Take 1 [facility] 500 mg 1-08 tablet by [facility] tablet 00:00: mouth 2 [place] 00 (two) Medical times Branch daily. ondansetron 2020-0 Yes [id number] 4mg Take 1 [facility] ([facility]) 4 1-08 tablet by [facility] tablet 00:00: mouth [place] 00 every 8 Medical (eight) Branch hours as needed for Nausea and Vomiting (N/V). etodolac 2020-0 Yes [id number] 500mg Take 1 [facility] 500 mg 1-08 tablet by [facility] tablet 00:00: mouth 2 [place] 00 (two) Medical times Branch daily. ondansetron 2020-0 Yes [id number] 4mg Take 1 [facility] ([facility]) 4 1-08 tablet by [facility] tablet 00:00: mouth [place] 00 every 8 Medical (eight) Branch hours as needed for Nausea and Vomiting (N/V). etodolac 2020-0 Yes [id number] 500mg Take 1 [facility] 500 mg 1-08 tablet by [facility] tablet 00:00: mouth 2 00 (two) Medical times [facility] daily. ondansetron 2020-0 Yes [id number] 4mg Take 1 [facility] 4 1-08 tablet by [facility] mg tablet 00:00: mouth [place] 00 every 8 Medical (eight) Branch hours as needed for Nausea and Vomiting (N/V). etodolac 2020-0 Yes [id number] 500mg Take 1 [facility] 500 mg 1-08 tablet by [facility] tablet 00:00: mouth 2 [place] 00 (two) Medical times Branch daily. ondansetron 2020-0 Yes [id number] 4mg Take 1 [facility] ([facility]) 4 1-08 tablet by [facility] mg tablet 00:00: mouth [place] 00 every 8 Medical (eight) Branch hours as needed for Nausea and Vomiting (N/V). etodolac 2020-0 Yes [id number] 500mg Take 1 [facility] 500 mg 1-08 tablet by [facility] tablet 00:00: mouth 2 [place] 00 (two) Medical times Branch daily. ondansetron 2020-0 Yes [id number] 4mg Take 1 [facility] ([facility]) 4 1-08 tablet by [facility] mg tablet 00:00: mouth [place] 00 every 8 Medical (eight) Branch hours as needed for Nausea and Vomiting (N/V). etodolac 2020-0 Yes [id number] 500mg Take 1 [facility] 500 mg 1-08 tablet by [facility] tablet 00:00: mouth 2 [place] 00 (two) Medical times Branch daily. ondansetron 2020-0 Yes [id number] 4mg Take 1 [facility] ([facility]) 4 1-08 tablet by [facility] mg tablet 00:00: mouth [place] 00 every 8 Medical (eight) Branch hours as needed for Nausea and Vomiting (N/V). etodolac 2020-0 Yes [id number] 500mg Take 1 [facility] 500 mg 1-08 tablet by [facility] tablet 00:00: mouth 2 [place] 00 (two) Medical times Branch daily. ondansetron 2020-0 Yes [id number] 4mg Take 1 [facility] ([facility]) 4 1-08 tablet by [facility] mg tablet 00:00: mouth [place] 00 every 8 Medical (eight) Branch hours as needed for Nausea and Vomiting (N/V). etodolac 2020-0 Yes [id number] 500mg Take 1 [facility] 500 mg 1-08 tablet by [facility] tablet 00:00: mouth 2 00 (two) Medical times Branch daily. ondansetron 2020-0 Yes [id number] 4mg Take 1 [facility] ([facility]) 4 1-08 tablet by [facility] mg tablet 00:00: mouth [place] 00 every 8 Medical (eight) Branch hours as needed for Nausea and Vomiting (N/V). etodolac 2020-0 Yes [id number] 500mg Take 1 [facility] 500 mg 1-08 tablet by [facility] tablet 00:00: mouth 2 [place] 00 (two) Medical times Branch daily. ondansetron 2020-0 Yes [id number] 4mg Take 1 [facility] ([facility]) 4 1-08 tablet by [facility] mg tablet 00:00: mouth [place] 00 every 8 Medical (eight) Branch hours as needed for Nausea and Vomiting (N/V). etodolac 2020-0 Yes [id number] 500mg Take 1 [facility] 500 mg 1-08 tablet by [facility] tablet 00:00: mouth 2 00 (two) Medical times Branch daily. ondansetron 2020-0 Yes [id number] 4mg Take 1 [facility] ([facility]) 4 1-08 tablet by [facility] mg tablet 00:00: mouth [place] 00 every 8 Medical (eight) Branch hours as needed for Nausea and Vomiting (N/V). etodolac 2020-0 Yes [id number] 500mg Take 1 [facility] 500 mg 1-08 tablet by [facility] tablet 00:00: mouth 2 00 (two) Medical times Branch daily. ondansetron 2020-0 Yes [id number] 4mg Take 1 [facility] ([facility]) 4 1-08 tablet by [facility] mg tablet 00:00: mouth [place] 00 every 8 Medical (eight) Branch hours as needed for Nausea and Vomiting (N/V). etodolac 2020-0 Yes [id number] 500mg Take 1 [facility] 500 mg 1-08 tablet by [facility] tablet 00:00: mouth (two) Medical times Branch daily. ondansetron 2020-0 Yes [id number] 4mg Take 1 [facility] ([facility]) 4 1-08 tablet by [facility] mg tablet 00:00: mouth [place] 00 every 8 Medical (eight) Branch hours as needed for Nausea and Vomiting (N/V). etodolac 2020-0 Yes [id number] 500mg Take 1 [facility] 500 mg 1-08 tablet by [facility] tablet 00:00: mouth (two) Medical times Branch daily. ondansetron 2020-0 Yes [id number] 4mg Take 1 [facility] ([facility]) 4 1-08 tablet by [facility] mg tablet 00:00: mouth [place] 00 every 8 Medical (eight) Branch hours as needed for Nausea and Vomiting (N/V). etodolac 2020-0 Yes [id number] 500mg Take 1 [facility] 500 mg 1-08 tablet by [facility] tablet 00:00: mouth 2 (two) Medical times Branch daily. ondansetron 2020-0 Yes [id number] 4mg Take 1 [facility] ([facility]) 4 1-08 tablet by [facility] mg tablet 00:00: mouth [place] 00 every 8 Medical (eight) Branch hours as needed for Nausea and Vomiting (N/V). etodolac 2020-0 Yes [id number] 500mg Take 1 [facility] 500 mg 1-08 tablet by [facility] tablet 00:00: mouth 2 (two) Medical times Branch daily. ondansetron 2020-0 Yes [id number] 4mg Take 1 [facility] ([facility]) 4 1-08 tablet by [facility] mg tablet 00:00: mouth [place] 00 every 8 Medical (eight) Branch hours as needed for Nausea and Vomiting (N/V). etodolac 2020-0 Yes [id number] 500mg Take 1 [facility] 500 mg 1-08 tablet by [facility] tablet 00:00: mouth 2 00 (two) Medical times Branch daily. ondansetron 2020-0 Yes [id number] 4mg Take 1 [facility] ([facility]) 4 1-08 tablet by [facility] mg tablet 00:00: mouth [place] 00 every 8 Medical (eight) Branch hours as needed for Nausea and Vomiting (N/V). etodolac 2020-0 Yes [id number] 500mg Take 1 [facility] 500 mg 1-08 tablet by [facility] tablet 00:00: mouth (two) Medical times Branch daily. ondansetron 2020-0 Yes [id number] 4mg Take 1 [facility] ([facility]) 4 1-08 tablet by [facility] mg tablet 00:00: mouth [place] 00 every 8 Medical (eight) Branch hours as needed for Nausea and Vomiting (N/V). etodolac 2020-0 Yes [id number] 500mg Take 1 [facility] 500 mg 1-08 tablet by [facility] tablet 00:00: mouth (two) Medical times Branch daily. ondansetron 2020-0 Yes [id number] 4mg Take 1 [facility] ([facility]) 4 1-08 tablet by [facility] mg tablet 00:00: mouth [place] 00 every 8 Medical (eight) Branch hours as needed for Nausea and Vomiting (N/V). etodolac 2020-0 Yes [id number] 500mg Take 1 [facility] 500 mg 1-08 tablet by [facility] tablet 00:00: mouth 2 (two) Medical times Branch daily. ondansetron 2020-0 Yes [id number] 4mg Take 1 [facility] ([facility]) 4 1-08 tablet by [facility] mg tablet 00:00: mouth [place] 00 every 8 Medical (eight) Branch hours as needed for Nausea and Vomiting (N/V). etodolac 2020-0 Yes [id number] 500mg Take 1 [facility] 500 mg 1-08 tablet by [facility] tablet 00:00: mouth 2 00 (two) Medical times Branch daily. ondansetron 2020-0 Yes [id number] 4mg Take 1 [facility] ([facility]) 4 1-08 tablet by [facility] mg tablet 00:00: mouth [place] 00 every 8 Medical (eight) Branch hours as needed for Nausea and Vomiting (N/V). etodolac 2020-0 Yes [id number] 500mg Take 1 [facility] 500 mg 1-08 tablet by [facility] tablet 00:00: mouth 2 00 (two) Medical times Branch daily. ondansetron 2020-0 Yes [id number] 4mg Take 1 [facility] ([facility]) 4 1-08 tablet by [facility] mg tablet 00:00: mouth [place] 00 every 8 Medical (eight) Branch hours as needed for Nausea and Vomiting (N/V). etodolac 2020-0 Yes [id number] 500mg Take 1 [facility] 500 mg 1-08 tablet by [facility] tablet 00:00: mouth 2 00 (two) Medical times Branch daily. ondansetron 2020-0 Yes [id number] 4mg Take 1 [facility] ([facility]) 4 1-08 tablet by [facility] mg tablet 00:00: mouth [place] 00 every 8 Medical (eight) Branch hours as needed for Nausea and Vomiting (N/V). etodolac 2020-0 Yes [id number] 500mg Take 1 [facility] 500 mg 1-08 tablet by [facility] tablet 00:00: mouth 2 00 (two) Medical times Branch daily. ondansetron 2020-0 Yes [id number] 4mg Take 1 [facility] ([facility]) 4 1-08 tablet by [facility] mg tablet 00:00: mouth [place] 00 every 8 Medical (eight) Branch hours as needed for Nausea and Vomiting (N/V). etodolac 2020-0 Yes [id number] 500mg Take 1 [facility] 500 mg 1-08 tablet by [facility] tablet 00:00: mouth 2 00 (two) Medical times Branch daily. ondansetron 2020-0 Yes [id number] 4mg Take 1 [facility] ([facility]) 4 1-08 tablet by [facility] mg tablet 00:00: mouth [place] 00 every 8 Medical (eight) Branch hours as needed for Nausea and Vomiting (N/V). etodolac 2020-0 Yes [id number] 500mg Take 1 [facility] 500 mg 1-08 tablet by [facility] tablet 00:00: mouth 2 [place] 00 (two) Medical times Branch daily. ondansetron 2020-0 Yes [id number] 4mg Take 1 [facility] ([facility]) 4 1-08 tablet by [facility] mg tablet 00:00: mouth [place] 00 every 8 Medical (eight) Branch hours as needed for Nausea and Vomiting (N/V). etodolac 2020-0 Yes [id number] 500mg Take 1 [facility] 500 mg 1-08 tablet by [facility] tablet 00:00: mouth 2 [place] 00 (two) Medical times Branch daily. ondansetron 2020-0 Yes [id number] 4mg Take 1 [facility] ([facility]) 4 1-08 tablet by [facility] mg tablet 00:00: mouth [place] 00 every 8 Medical (eight) Branch hours as needed for Nausea and Vomiting (N/V). etodolac 2020-0 Yes [id number] 500mg Take 1 [facility] 500 mg 1-08 tablet by [facility] tablet 00:00: mouth 2 00 (two) Medical times Branch daily. ondansetron 2020-0 Yes [id number] 4mg Take 1 [facility] ([facility]) 4 1-08 tablet by [facility] mg tablet 00:00: mouth [place] 00 every 8 Medical (eight) Branch hours as needed for Nausea and Vomiting (N/V). etodolac 2020-0 Yes [id number] 500mg Take 1 [facility] 500 mg 1-08 tablet by [facility] tablet 00:00: mouth 2 [place] 00 (two) Medical times Branch daily. ondansetron 2020-0 Yes [id number] 4mg Take 1 [facility] ([facility]) 4 1-08 tablet by [facility] mg tablet 00:00: mouth [place] 00 every 8 Medical (eight) Branch hours as needed for Nausea and Vomiting (N/V). etodolac 2020-0 Yes [id number] 500mg Take 1 [facility] 500 mg 1-08 tablet by [facility] tablet 00:00: mouth 2 [place] 00 (two) Medical times Branch daily. ondansetron 2020-0 Yes [id number] 4mg Take 1 [facility] ([facility]) 4 1-08 tablet by [facility] mg tablet 00:00: mouth [place] 00 every 8 Medical (eight) Branch hours as needed for Nausea and Vomiting (N/V). etodolac 2020-0 Yes [id number] 500mg Take 1 [facility] 500 mg 1-08 tablet by [facility] tablet 00:00: mouth 2 [place] 00 (two) Medical times Branch daily. ondansetron 2020-0 Yes [id number] 4mg Take 1 [facility] ([facility]) 4 1-08 tablet by [facility] mg tablet 00:00: mouth [place] 00 every 8 Medical (eight) Branch hours as needed for Nausea and Vomiting (N/V). etodolac 2020-0 Yes [id number] 500mg Take 1 [facility] 500 mg 1-08 tablet by [facility] tablet 00:00: mouth 2 [place] 00 (two) Medical times Branch daily. ondansetron 2020-0 Yes [id number] 4mg Take 1 [facility] ([facility]) 4 1-08 tablet by [facility] mg tablet 00:00: mouth [place] 00 every 8 Medical (eight) Branch hours as needed for Nausea and Vomiting (N/V). etodolac 2020-0 Yes [id number] 500mg Take 1 [facility] 500 mg 1-08 tablet by [facility] of tablet 00:00: mouth 2 00 (two) Medical times Branch daily. ondansetron 2020-0 Yes [id number] 4mg Take 1 [facility] ([facility]) 4 1-08 tablet by [facility] mg tablet 00:00: mouth [place] 00 every 8 Medical (eight) Branch hours as needed for Nausea and Vomiting (N/V). etodolac 2020-0 Yes [id number] 500mg Take 1 [facility] 500 mg 1-08 tablet by [facility] tablet 00:00: mouth 2 [place] 00 (two) Medical times Branch daily. ondansetron 2020-0 Yes [id number] 4mg Take 1 [facility] ([facility]) 4 1-08 tablet by [facility] mg tablet 00:00: mouth [place] 00 every 8 Medical (eight) Branch hours as needed for Nausea and Vomiting (N/V). etodolac 2020-0 Yes [id number] 500mg Take 1 [facility] 500 mg 1-08 tablet by [facility] of tablet 00:00: mouth 2 (two) Medical times Branch daily. ondansetron 2020-0 Yes [id number] 4mg Take 1 [facility] ([facility]) 4 1-08 tablet by [facility] mg tablet 00:00: mouth [place] 00 every 8 Medical (eight) Branch hours as needed for Nausea and Vomiting (N/V). etodolac 2020-0 Yes [id number] 500mg Take 1 [facility] 500 mg 1-08 tablet by [facility] of tablet 00:00: mouth 2 00 (two) Medical times Branch daily. ondansetron 2020-0 Yes [id number] 4mg Take 1 [facility] ([facility]) 4 1-08 tablet by [facility] mg tablet 00:00: mouth [place] 00 every 8 Medical (eight) Branch hours as needed for Nausea and Vomiting (N/V). etodolac 2020-0 Yes [id number] 500mg Take 1 [facility] 500 mg 1-08 tablet by [facility] of tablet 00:00: mouth (two) Medical times Branch daily. ondansetron 2020-0 Yes [id number] 4mg Take 1 [facility] ([facility]) 4 1-08 tablet by [facility] mg tablet 00:00: mouth [place] 00 every 8 Medical (eight) Branch hours as needed for Nausea and Vomiting (N/V). etodolac 2020-0 Yes [id number] 500mg Take 1 [facility] 500 mg 1-08 tablet by [facility] of tablet 00:00: mouth (two) Medical times Branch daily. ondansetron 2020-0 Yes [id number] 4mg Take 1 [facility] ([facility]) 4 1-08 tablet by [facility] mg tablet 00:00: mouth [place] 00 every 8 Medical (eight) Branch hours as needed for Nausea and Vomiting (N/V). etodolac 2020-0 Yes [id number] 500mg Take 1 [facility] 500 mg 1-08 tablet by [facility] of tablet 00:00: mouth 2 (two) Medical times Branch daily. ondansetron 2020-0 Yes [id number] 4mg Take 1 [facility] ([facility]) 4 1-08 tablet by [facility] mg tablet 00:00: mouth [place] 00 every 8 Medical (eight) Branch hours as needed for Nausea and Vomiting (N/V). etodolac 2020-0 Yes [id number] 500mg Take 1 [facility] 500 mg 1-08 tablet by [facility] tablet 00:00: mouth 2 00 (two) Medical times Branch daily. ondansetron 2020-0 Yes [id number] 4mg Take 1 [facility] ([facility]) 4 1-08 tablet by [facility] mg tablet 00:00: mouth [place] 00 every 8 Medical (eight) Branch hours as needed for Nausea and Vomiting (N/V). etodolac 2020-0 Yes [id number] 500mg Take 1 [facility] 500 mg 1-08 tablet by [facility] of tablet 00:00: mouth 2 00 (two) Medical times Branch daily. ondansetron 2020-0 Yes [id number] 4mg Take 1 [facility] ([facility]) 4 1-08 tablet by [facility] mg tablet 00:00: mouth [place] 00 every 8 Medical (eight) Branch hours as needed for Nausea and Vomiting (N/V). etodolac 2020-0 Yes [id number] 500mg Take 1 [facility] 500 mg 1-08 tablet by [facility] of tablet 00:00: mouth (two) Medical times Branch daily. ondansetron 2020-0 Yes [id number] 4mg Take 1 [facility] ([facility]) 4 1-08 tablet by [facility] mg tablet 00:00: mouth [place] 00 every 8 Medical (eight) Branch hours as needed for Nausea and Vomiting (N/V). etodolac 2020-0 Yes [id number] 500mg Take 1 [facility] 500 mg 1-08 tablet by [facility] of tablet 00:00: mouth (two) Medical times Branch daily. ondansetron 2020-0 Yes [id number] 4mg Take 1 [facility] ([facility]) 4 1-08 tablet by [facility] mg tablet 00:00: mouth [place] 00 every 8 Medical (eight) Branch hours as needed for Nausea and Vomiting (N/V). etodolac 2020-0 Yes [id number] 500mg Take 1 [facility] 500 mg 1-08 tablet by [facility] of tablet 00:00: mouth 2 (two) Medical times Branch daily. ondansetron 2020-0 Yes [id number] 4mg Take 1 [facility] ([facility]) 4 1-08 tablet by [facility] of mg tablet 00:00: mouth [place] 00 every 8 Medical (eight) Branch hours as needed for Nausea and Vomiting (N/V). etodolac 2020-0 Yes [id number] 500mg Take 1 [facility] 500 mg 1-08 tablet by [facility] of tablet 00:00: mouth 2 00 (two) Medical times Branch daily. ondansetron 2020-0 Yes [id number] 4mg Take 1 [facility] ([facility]) 4 1-08 tablet by [facility] of mg tablet 00:00: mouth [place] 00 every 8 Medical (eight) Branch hours as needed for Nausea and Vomiting (N/V). etodolac 2020-0 Yes [id number] 500mg Take 1 [facility] 500 mg 1-08 tablet by [facility] of tablet 00:00: mouth 2 00 (two) Medical times Branch daily. ondansetron 2020-0 Yes [id number] 4mg Take 1 [facility] ([facility]) 4 1-08 tablet by [facility] of mg tablet 00:00: mouth [place] 00 every 8 Medical (eight) Branch hours as needed for Nausea and Vomiting (N/V). etodolac 2020-0 Yes [id number] 500mg Take 1 [facility] 500 mg 1-08 tablet by [facility] of tablet 00:00: mouth 2 00 (two) Medical times Branch daily. ondansetron 2020-0 Yes [id number] 4mg Take 1 [facility] ([facility]) 4 1-08 tablet by [facility] of mg tablet 00:00: mouth [place] 00 every 8 Medical (eight) Branch hours as needed for Nausea and Vomiting (N/V). etodolac 2020-0 Yes [id number] 500mg Take 1 [facility] 500 mg 1-08 tablet by [facility] of tablet 00:00: mouth 2 (two) Medical times Branch daily. ondansetron 2020-0 Yes [id number] 4mg Take 1 [facility] ([facility]) 4 1-08 tablet by [facility] of mg tablet 00:00: mouth [place] 00 every 8 Medical (eight) Branch hours as needed for Nausea and Vomiting (N/V). azelastine 2019-0 Yes [id number] 1{spray Use 1 [facility] 137 mcg 7-08 } [place] in ity of (0.1 %) 00:00: each [place] nasal spray 00 nostril 2 Med ical (two) Branch times daily. Use in each nostril as directed azelastine 2019-0 Yes [id number] 1{spray Use 1 [facility] 137 mcg 7-08 } [place] in ity of (0.1 %) 00:00: each [place] nasal spray 00 nostril 2 Med ical (two) Branch times daily. Use in each nostril as directed azelastine 2019-0 Yes [id number] 1{spray Use 1 [facility] 137 mcg 7-08 } [place] in ity of (0.1 %) 00:00: each [place] nasal spray 00 nostril 2 Med ical (two) Branch times daily. Use in each nostril as directed azelastine 2019-0 Yes [id number] 1{spray Use 1 [facility] 137 mcg 7-08 } [place] in ity of (0.1 %) 00:00: each [place] nasal spray 00 nostril 2 Med ical (two) Branch times daily. Use in each nostril as directed azelastine 2019-0 Yes [id number] 1{spray Use 1 [facility] 137 mcg 7-08 } [place] in ity of (0.1 %) 00:00: each [place] nasal spray 00 nostril 2 Med ical (two) Branch times daily. Use in each nostril as directed azelastine 2019-0 Yes [id number] 1{spray Use 1 [facility] 137 mcg 7-08 } [place] in ity of (0.1 %) 00:00: each [place] nasal spray 00 nostril 2 Med ical (two) Branch times daily. Use in each nostril as directed azelastine 2019-0 Yes [id number] 1{spray Use 1 [facility] 137 mcg 7-08 } [place] in ity of (0.1 %) 00:00: each [place] nasal spray 00 nostril 2 Med ical (two) Branch times daily. Use in each nostril as directed azelastine 2019-0 Yes [id number] 1{spray Use 1 [facility] 137 mcg 7-08 } [place] in ity of (0.1 %) 00:00: each [place] nasal spray 00 nostril 2 Med ical (two) Branch times daily. Use in each nostril as directed azelastine 2019-0 Yes [id number] 1{spray Use 1 [facility] 137 mcg 7-08 } [place] in ity of (0.1 %) 00:00: each [place] nasal spray 00 nostril 2 Med ical (two) Branch times daily. Use in each nostril as directed azelastine 2019-0 Yes [id number] 1{spray Use 1 [facility] 137 mcg 7-08 } [place] in ity of (0.1 %) 00:00: each [place] nasal spray 00 nostril 2 Med ical (two) Branch times daily. Use in each nostril as directed azelastine 2019-0 Yes [id number] 1{spray Use 1 [facility] 137 mcg 7-08 } [place] in ity of (0.1 %) 00:00: each [place] nasal spray 00 nostril 2 Med ical (two) Branch times daily. Use in each nostril as directed azelastine 2019- Yes [id number] 1{spray Use 1 [facility] 137 mcg 7-08 } [place] in ity of (0.1 %) 00:00: each [place] nasal spray 00 nostril 2 Med ical (two) Branch times daily. Use in each nostril as directed azelastine 2019- Yes [id number] 1{spray Use 1 [facility] 137 mcg 7-08 } [place] in ity of (0.1 %) 00:00: each [place] nasal spray 00 nostril 2 Med ical (two) Branch times daily. Use in each nostril as directed azelastine 2019- Yes [id number] 1{spray Use 1 [facility] 137 mcg 7-08 } [place] in ity of (0.1 %) 00:00: each [place] nasal spray 00 nostril 2 Med ical (two) Branch times daily. Use in each nostril as directed azelastine 2019- Yes [id number] 1{spray Use 1 [facility] 137 mcg 7-08 } [place] in ity of (0.1 %) 00:00: each [place] nasal spray 00 nostril 2 Med ical (two) Branch times daily. Use in each nostril as directed azelastine 2019- Yes [id number] 1{spray Use 1 [facility] 137 mcg 7-08 } [place] in ity of (0.1 %) 00:00: each [place] nasal spray 00 nostril 2 Med ical (two) Branch times daily. Use in each nostril as directed azelastine 2019- Yes [id number] 1{spray Use 1 [facility] 137 mcg 7-08 } [place] in ity of (0.1 %) 00:00: each [place] nasal spray 00 nostril 2 Med ical (two) Branch times daily. Use in each nostril as directed azelastine 2019-0 Yes [id number] 1{spray Use 1 [facility] 137 mcg 7-08 } [place] in ity of (0.1 %) 00:00: each [place] nasal spray 00 nostril 2 Med ical (two) Branch times daily. Use in each nostril as directed azelastine 2019-0 Yes [id number] 1{spray Use 1 [facility] 137 mcg 7-08 } [place] in ity of (0.1 %) 00:00: each [place] nasal spray 00 nostril 2 Med ical (two) Branch times daily. Use in each nostril as directed azelastine 2019-0 Yes [id number] 1{spray Use 1 [facility] 137 mcg 7-08 } [place] in ity of (0.1 %) 00:00: each [place] nasal spray 00 nostril 2 Med ical (two) Branch times daily. Use in each nostril as directed azelastine 2019-0 Yes [id number] 1{spray Use 1 [facility] 137 mcg 7-08 } [place] in ity of (0.1 %) 00:00: each [place] nasal spray 00 nostril 2 Med ical (two) Branch times daily. Use in each nostril as directed azelastine 2019-0 Yes [id number] 1{spray Use 1 [facility] 137 mcg 7-08 } [place] in ity of (0.1 %) 00:00: each [place] nasal spray 00 nostril 2 Med ical (two) Branch times daily. Use in each nostril as directed azelastine 2019-0 Yes [id number] 1{spray Use 1 [facility] 137 mcg 7-08 } [place] in ity of (0.1 %) 00:00: each [place] nasal spray 00 nostril 2 Med ical (two) Branch times daily. Use in each nostril as directed azelastine 2019-0 Yes [id number] 1{spray Use 1 [facility] 137 mcg 7-08 } [place] in ity of (0.1 %) 00:00: each [place] nasal spray 00 nostril 2 Med ical (two) Branch times daily. Use in each nostril as directed azelastine 2019- Yes [id number] 1{spray Use 1 [facility] 137 mcg 7-08 } [place] in ity of (0.1 %) 00:00: each [place] nasal spray 00 nostril 2 Med ical (two) Branch times daily. Use in each nostril as directed azelastine 2019- Yes [id number] 1{spray Use 1 [facility] 137 mcg 7-08 } [place] in ity of (0.1 %) 00:00: each [place] nasal spray 00 nostril 2 Med ical (two) Branch times daily. Use in each nostril as directed azelastine 2018- Yes [id number] 1{spray Use 1 [facility] 137 mcg 7-08 } [place] in ity of (0.1 %) 00:00: each [place] nasal spray 00 nostril 2 Med ical (two) Branch times daily. Use in each nostril as directed azelastine 2018- Yes [id number] 1{spray Use 1 [facility] 137 mcg 7-08 } [place] in ity of (0.1 %) 00:00: each [place] nasal spray 00 nostril 2 Med ical (two) Branch times daily. Use in each nostril as directed azelastine 2018- Yes [id number] 1{spray Use 1 [facility] 137 mcg 7-08 } [place] in ity of (0.1 %) 00:00: each [place] nasal spray 00 nostril 2 Med ical (two) Branch times daily. Use in each nostril as directed azelastine 2018- Yes [id number] 1{spray Use 1 [facility] 137 mcg 7-08 } [place] in ity of (0.1 %) 00:00: each [place] nasal spray 00 nostril 2 Med ical (two) Branch times daily. Use in each nostril as directed azelastine 2019- Yes [id number] 1{spray Use 1 [facility] 137 mcg 7-08 } [place] in ity of (0.1 %) 00:00: each [place] nasal spray 00 nostril 2 Med ical (two) Branch times daily. Use in each nostril as directed azelastine 2018- Yes [id number] 1{spray Use 1 [facility] 137 mcg 7-08 } [place] in ity of (0.1 %) 00:00: each [place] nasal spray 00 nostril 2 Med ical (two) Branch times daily. Use in each nostril as directed azelastine 2019-0 Yes [id number] 1{spray Use 1 [facility] 137 mcg 7-08 } [place] in ity of (0.1 %) 00:00: each [place] nasal spray 00 nostril 2 Med ical (two) Branch times daily. Use in each nostril as directed azelastine 2019-0 Yes [id number] 1{spray Use 1 [facility] 137 mcg 7-08 } [place] in ity of (0.1 %) 00:00: each [place] nasal spray 00 nostril 2 Med ical (two) Branch times daily. Use in each nostril as directed azelastine 2019- Yes [id number] 1{spray Use 1 [facility] 137 mcg 7-08 } [place] in ity of (0.1 %) 00:00: each [place] nasal spray 00 nostril 2 Med ical (two) Branch times daily. Use in each nostril as directed azelastine 2018- Yes [id number] 1{spray Use 1 [facility] 137 mcg 7-08 } [place] in ity of (0.1 %) 00:00: each [place] nasal spray 00 nostril 2 Med ical (two) Branch times daily. Use in each nostril as directed azelastine 2019- Yes [id number] 1{spray Use 1 [facility] 137 mcg 7-08 } [place] in ity of (0.1 %) 00:00: each [place] nasal spray 00 nostril 2 Med ical (two) Branch times daily. Use in each nostril as directed azelastine 2019- Yes [id number] 1{spray Use 1 [facility] 137 mcg 7-08 } [place] in ity of (0.1 %) 00:00: each [place] nasal spray 00 nostril 2 Med ical (two) Branch times daily. Use in each nostril as directed azelastine 2019- Yes [id number] 1{spray Use 1 [facility] 137 mcg 7-08 } [place] in ity of (0.1 %) 00:00: each [place] nasal spray 00 nostril 2 Med ical (two) Branch times daily. Use in each nostril as directed azelastine 2019-0 Yes [id number] 1{spray Use 1 [facility] 137 mcg 7-08 } [place] in ity of (0.1 %) 00:00: each [place] nasal spray 00 nostril 2 Med ical (two) Branch times daily. Use in each nostril as directed azelastine 2019-0 Yes [id number] 1{spray Use 1 [facility] 137 mcg 7-08 } [place] in ity of (0.1 %) 00:00: each [place] nasal spray 00 nostril 2 Med ical (two) Branch times daily. Use in each nostril as directed azelastine 2019-0 Yes [id number] 1{spray Use 1 [facility] 137 mcg 7-08 } [place] in ity of (0.1 %) 00:00: each [place] nasal spray 00 nostril 2 Med ical (two) Branch times daily. Use in each nostril as directed azelastine 2019-0 Yes [id number] 1{spray Use 1 [facility] 137 mcg 7-08 } [place] in ity of (0.1 %) 00:00: each [place] nasal spray 00 nostril 2 Med ical (two) Branch times daily. Use in each nostril as directed azelastine 2019-0 Yes [id number] 1{spray Use 1 [facility] 137 mcg 7-08 } [place] in ity of (0.1 %) 00:00: each [place] nasal spray 00 nostril 2 Med ical (two) Branch times daily. Use in each nostril as directed azelastine 2019-0 Yes [id number] 1{spray Use 1 [facility] 137 mcg 7-08 } [place] in ity of (0.1 %) 00:00: each [place] nasal spray 00 nostril 2 Med ical (two) Branch times daily. Use in each nostril as directed azelastine 2019-0 Yes [id number] 1{spray Use 1 [facility] 137 mcg 7-08 } [place] [facility] (0.1 %) 00:00: each [place] nasal spray 00 nostril 2 Med ical (two) Branch times daily. Use in each nostril as directed azelastine 2019-0 Yes [id number] 1{spray Use 1 [facility] 137 mcg 7-08 } [place] [facility] (0.1 %) 00:00: each [place] nasal spray 00 nostril 2 Med ical (two) Branch times daily. Use in each nostril as directed azelastine 2019- Yes [id number] 1{spray Use 1 [facility] 137 mcg 7-08 } [place] [facility] (0.1 %) 00:00: each [place] nasal spray 00 nostril 2 Med ical (two) Branch times daily. Use in each nostril as directed azelastine 2019- Yes [id number] 1{spray Use 1 [facility] 137 mcg 7-08 } [place] [facility] (0.1 %) 00:00: each [place] nasal spray 00 nostril 2 Med ical (two) Branch times daily. Use in each nostril as directed azelastine 2018- Yes [id number] 1{spray Use 1 [facility] 137 mcg 7-08 } [place] [facility] (0.1 %) 00:00: each [place] nasal spray 00 nostril 2 Med ical (two) Branch times daily. Use in each nostril as directed azelastine 2018- Yes [id number] 1{spray Use 1 [facility] 137 mcg 7-08 } [place] [facility] (0.1 %) 00:00: each [place] nasal spray 00 nostril 2 Med ical (two) Branch times daily. Use in each nostril as directed azelastine 2018- Yes [id number] 1{spray Use 1 [facility] 137 mcg 7-08 } [place] [facility] (0.1 %) 00:00: each [place] nasal spray 00 nostril 2 Med ical (two) Branch times daily. Use in each nostril as directed azelastine 2018- Yes [id number] 1{spray Use 1 [facility] 137 mcg 7-08 } [place] [facility] (0.1 %) 00:00: each [place] nasal spray 00 nostril 2 Med ical (two) Branch times daily. Use in each nostril as directed azelastine 2019- Yes [id number] 1{spray Use 1 [facility] 137 mcg 7-08 } [place] [facility] (0.1 %) 00:00: each [place] nasal spray 00 nostril 2 Med ical (two) Branch times daily. Use in each nostril as directed azelastine 2018- Yes [id number] 1{spray Use 1 [facility] 137 mcg 7-08 } [place] [facility] (0.1 %) 00:00: each [place] nasal spray 00 nostril 2 Med ical (two) Branch times daily. Use in each nostril as directed azelastine 2019-0 Yes [id number] 1{spray Use 1 [facility] 137 mcg 7-08 } [place] [facility] (0.1 %) 00:00: each [place] nasal spray 00 nostril 2 Med ical (two) Branch times daily. Use in each nostril as directed azelastine 2019-0 Yes [id number] 1{spray Use 1 [facility] 137 mcg 7-08 } [place] [facility] (0.1 %) 00:00: each [place] nasal spray 00 nostril 2 Med ical (two) Branch times daily. Use in each nostril as directed azelastine 2019-0 Yes [id number] 1{spray Use 1 [facility] 137 mcg 7-08 } [place] [facility] (0.1 %) 00:00: each [place] nasal spray 00 nostril 2 Med ical (two) Branch times daily. Use in each nostril as directed azelastine 2019-0 Yes [id number] 1{spray Use 1 [facility] 137 mcg 7-08 } [place] [facility] (0.1 %) 00:00: each [place] nasal spray 00 nostril 2 Med ical (two) Branch times daily. Use in each nostril as directed azelastine 2019-0 Yes [id number] 1{spray Use 1 [facility] 137 mcg 7-08 } [place] [facility] (0.1 %) 00:00: each [place] nasal spray 00 nostril 2 Med ical (two) Branch times daily. Use in each nostril as directed azelastine 2019-0 Yes [id number] 1{spray Use 1 [facility] 137 mcg 7-08 } [place] [facility] (0.1 %) 00:00: each [place] nasal spray 00 nostril 2 Med ical (two) Branch times daily. Use in each nostril as directed azelastine 2019-0 Yes [id number] 1{spray Use 1 [facility] 137 mcg 7-08 } [place] [facility] (0.1 %) 00:00: each [place] nasal spray 00 nostril 2 Med ical (two) Branch times daily. Use in each nostril as directed azelastine 2019-0 Yes [id number] 1{spray Use 1 [facility] 137 mcg 7-08 } [place] [facility] (0.1 %) 00:00: each [place] nasal spray 00 nostril 2 Med ical (two) Branch times daily. Use in each nostril as directed azelastine 2019- Yes [id number] 1{spray Use 1 [facility] 137 mcg 7-08 } [place] [facility] (0.1 %) 00:00: each [place] nasal spray 00 nostril 2 Med ical (two) Branch times daily. Use in each nostril as directed azelastine 2019- Yes [id number] 1{spray Use 1 [facility] 137 mcg 7-08 } [place] [facility] (0.1 %) 00:00: each [place] nasal spray 00 nostril 2 Med ical (two) Branch times daily. Use in each nostril as directed azelastine 2019- Yes [id number] 1{spray Use 1 [facility] 137 mcg 7-08 } [place] [facility] (0.1 %) 00:00: each [place] nasal spray 00 nostril 2 Med ical (two) Branch times daily. Use in each nostril as directed azelastine 2018- Yes [id number] 1{spray Use 1 [facility] 137 mcg 7-08 } [place] [facility] (0.1 %) 00:00: each [place] nasal spray 00 nostril 2 Med ical (two) Branch times daily. Use in each nostril as directed azelastine 2019- Yes [id number] 1{spray Use 1 [facility] 137 mcg 7-08 } [place] [facility] (0.1 %) 00:00: each [place] nasal spray 00 nostril 2 Med ical (two) Branch times daily. Use in each nostril as directed azelastine 2019- Yes [id number] 1{spray Use 1 [facility] 137 mcg 7-08 } [place] [facility] (0.1 %) 00:00: each [place] nasal spray 00 nostril 2 Med ical (two) Branch times daily. Use in each nostril as directed azelastine 2019- Yes [id number] 1{spray Use 1 [facility] 137 mcg 7-08 } [place] [facility] (0.1 %) 00:00: each [place] nasal spray 00 nostril 2 Med ical (two) Branch times daily. Use in each nostril as directed azelastine 2019-0 Yes [id number] 1{spray Use 1 [facility] 137 mcg 7-08 } [place] [facility] (0.1 %) 00:00: each [place] nasal spray 00 nostril 2 Med ical (two) Branch times daily. Use in each nostril as directed azelastine 2019-0 Yes [id number] 1{spray Use 1 [facility] 137 mcg 7-08 } [place] [facility] (0.1 %) 00:00: each [place] nasal spray 00 nostril 2 Med ical (two) Branch times daily. Use in each nostril as directed azelastine 2019-0 Yes [id number] 1{spray Use 1 [facility] 137 mcg 7-08 } [place] [facility] (0.1 %) 00:00: each [place] nasal spray 00 nostril 2 Med ical (two) Branch times daily. Use in each nostril as directed azelastine 2019-0 Yes [id number] 1{spray Use 1 [facility] 137 mcg 7-08 } [place] [facility] (0.1 %) 00:00: each [place] nasal spray 00 nostril 2 Med ical (two) Branch times daily. Use in each nostril as directed azelastine 2019-0 Yes [id number] 1{spray Use 1 [facility] 137 mcg 7-08 } [place] [facility] (0.1 %) 00:00: each [place] nasal spray 00 nostril 2 Med ical (two) Branch times daily. Use in each nostril as directed azelastine 2019-0 Yes [id number] 1{spray Use 1 [facility] 137 mcg 7-08 } [place] [facility] (0.1 %) 00:00: each [place] nasal spray 00 nostril 2 Med ical (two) Branch times daily. Use in each nostril as directed azelastine 2019-0 Yes [id number] 1{spray Use 1 [facility] 137 mcg 7-08 } [place] [facility] (0.1 %) 00:00: each [place] nasal spray 00 nostril 2 Med ical (two) Branch times daily. Use in each nostril as directed azelastine 2019-0 Yes [id number] 1{spray Use 1 [facility] 137 mcg 7-08 } [place] [facility] (0.1 %) 00:00: each [place] nasal spray 00 nostril 2 Med ical (two) Branch times daily. Use in each nostril as directed azelastine 2019-0 Yes [id number] 1{spray Use 1 [facility] 137 mcg 7-08 } [place] [facility] (0.1 %) 00:00: each [place] nasal spray 00 nostril 2 Med ical (two) Branch times daily. Use in each nostril as directed azelastine 2019- Yes [id number] 1{spray Use 1 [facility] 137 mcg 7-08 } [place] [facility] (0.1 %) 00:00: each [place] nasal spray 00 nostril 2 Med ical (two) Branch times daily. Use in each nostril as directed azelastine 2018- Yes [id number] 1{spray Use 1 [facility] 137 mcg 7-08 } [place] [facility] (0.1 %) 00:00: each [place] nasal spray 00 nostril 2 Med ical (two) Branch times daily. Use in each nostril as directed azelastine 2018- Yes [id number] 1{spray Use 1 [facility] 137 mcg 7-08 } [place] [facility] (0.1 %) 00:00: each [place] nasal spray 00 nostril 2 Med ical (two) Branch times daily. Use in each nostril as directed azelastine 2018- Yes [id number] 1{spray Use 1 [facility] 137 mcg 7-08 } [place] [facility] (0.1 %) 00:00: each [place] nasal spray 00 nostril 2 Med ical (two) Branch times daily. Use in each nostril as directed azelastine 2019- Yes [id number] 1{spray Use 1 [facility] 137 mcg 7-08 } [place] [facility] (0.1 %) 00:00: each [place] nasal spray 00 nostril 2 Med ical (two) Branch times daily. Use in each nostril as directed azelastine 2019- Yes [id number] 1{spray Use 1 [facility] 137 mcg 7-08 } [place] [facility] (0.1 %) 00:00: each [place] nasal spray 00 nostril 2 Med ical (two) Branch times daily. Use in each nostril as directed azelastine 2019-0 Yes [id number] 1{spray Use 1 [facility] 137 mcg 7-08 } [place] [facility] (0.1 %) 00:00: each [place] nasal spray 00 nostril 2 Med ical (two) Branch times daily. Use in each nostril as directed azelastine 2019-0 Yes [id number] 1{spray Use 1 [facility] 137 mcg 7-08 } [place] [facility] (0.1 %) 00:00: each [place] nasal spray 00 nostril 2 Med ical (two) Branch times daily. Use in each nostril as directed azelastine 2019- Yes [id number] 1{spray Use 1 [facility] 137 mcg 7-08 } [place] [facility] (0.1 %) 00:00: each [place] nasal spray 00 nostril 2 Med ical (two) Branch times daily. Use in each nostril as directed azelastine 2018- Yes [id number] 1{spray Use 1 [facility] 137 mcg 7-08 } [place] in [facility] (0.1 %) 00:00: each [place] nasal spray 00 nostril 2 Med ical (two) Branch times daily. Use in each nostril as directed azelastine 2018- Yes [id number] 1{spray Use 1 [facility] 137 mcg 7-08 } [place] in [facility] (0.1 %) 00:00: each [place] nasal spray 00 nostril 2 Med ical (two) Branch times daily. Use in each nostril as directed azelastine 2018- Yes [id number] 1{spray Use 1 [facility] 137 mcg 7-08 } [place] in [facility] (0.1 %) 00:00: each [place] nasal spray 00 nostril 2 Med ical (two) Branch times daily. Use in each nostril as directed azelastine 2019- Yes [id number] 1{spray Use 1 [facility] 137 mcg 7-08 } [place] [facility] (0.1 %) 00:00: each [place] nasal spray 00 nostril 2 Med ical (two) Branch times daily. Use in each nostril as directed azelastine 2018-0 Yes [id number] 1{spray Use 1 [facility] 137 mcg 7-08 } [place] in [facility] (0.1 %) 00:00: each [place] nasal spray 00 nostril 2 Med ical (two) Branch times daily. Use in each nostril as directed azelastine 2019-0 Yes [id number] 1{spray Use 1 [facility] 137 mcg 7-08 } [place] in [facility] (0.1 %) 00:00: each [place] nasal spray 00 nostril 2 Med ical (two) Branch times daily. Use in each nostril as directed azelastine 2019-0 Yes [id number] 1{spray Use 1 [facility] 137 mcg 7-08 } [place] in [facility] (0.1 %) 00:00: each [place] nasal spray 00 nostril 2 Med ical (two) Branch times daily. Use in each nostril as directed azelastine 2019-0 Yes [id number] 1{spray Use 1 [facility] 137 mcg 7-08 } [place] in [facility] (0.1 %) 00:00: each [place] nasal spray 00 nostril 2 Med ical (two) Branch times daily. Use in each nostril as directed azelastine 2019-0 Yes [id number] 1{spray Use 1 [facility] 137 mcg 7-08 } [place] in [facility] (0.1 %) 00:00: each [place] nasal spray 00 nostril 2 Med ical (two) Branch times daily. Use in each nostril as directed azelastine 2019-0 Yes [id number] 1{spray Use 1 [facility] 137 mcg 7-08 } [place] in [facility] of (0.1 %) 00:00: each [place] nasal spray 00 nostril 2 Med ical (two) Branch times daily. Use in each nostril as directed azelastine 2019-0 Yes [id number] 1{spray Use 1 [facility] 137 mcg 7-08 } [place] in [facility] (0.1 %) 00:00: each [place] nasal spray 00 nostril 2 Med ical (two) Branch times daily. Use in each nostril as directed azelastine 2019-0 Yes [id number] 1{spray Use 1 [facility] 137 mcg 7-08 } [place] in [facility] (0.1 %) 00:00: each [place] nasal spray 00 nostril 2 Med ical (two) Branch times daily. Use in each nostril as directed azelastine 2019- Yes [id number] 1{spray Use 1 [facility] 137 mcg 7-08 } [place] in [facility] (0.1 %) 00:00: each [place] nasal spray 00 nostril 2 Med ical (two) Branch times daily. Use in each nostril as directed azelastine 2019- Yes [id number] 1{spray Use 1 [facility] 137 mcg 7-08 } [place] in [facility] (0.1 %) 00:00: each [place] nasal spray 00 nostril 2 Med ical (two) Branch times daily. Use in each nostril as directed azelastine 2018- Yes [id number] 1{spray Use 1 [facility] 137 mcg 7-08 } [place] in [facility] (0.1 %) 00:00: each [place] nasal spray 00 nostril 2 Med ical (two) Branch times daily. Use in each nostril as directed azelastine 2018- Yes [id number] 1{spray Use 1 [facility] 137 mcg 7-08 } [place] in [facility] (0.1 %) 00:00: each [place] nasal spray 00 nostril 2 Med ical (two) Branch times daily. Use in each nostril as directed azelastine 2018- Yes [id number] 1{spray Use 1 [facility] 137 mcg 7-08 } [place] in [facility] (0.1 %) 00:00: each [place] nasal spray 00 nostril 2 Med ical (two) Branch times daily. Use in each nostril as directed azelastine 2019- Yes [id number] 1{spray Use 1 [facility] 137 mcg 7-08 } [place] in [facility] of (0.1 %) 00:00: each [place] nasal spray 00 nostril 2 Med ical (two) Branch times daily. Use in each nostril as directed azelastine 2019- Yes [id number] 1{spray Use 1 [facility] 137 mcg 7-08 } [place] in [facility] of (0.1 %) 00:00: each [place] nasal spray 00 nostril 2 Med ical (two) Branch times daily. Use in each nostril as directed azelastine 2018-0 Yes [id number] 1{spray Use 1 [facility] 137 mcg 7-08 } [place] in [facility] of (0.1 %) 00:00: each [place] nasal spray 00 nostril 2 Med ical (two) Branch times daily. Use in each nostril as directed azelastine 2019-0 Yes [id number] 1{spray Use 1 [facility] 137 mcg 7-08 } [place] in [facility] of (0.1 %) 00:00: each [place] nasal spray 00 nostril 2 Med ical (two) Branch times daily. Use in each nostril as directed azelastine 2019-0 Yes [id number] 1{spray Use 1 [facility] 137 mcg 7-08 } [place] in [facility] of (0.1 %) 00:00: each [place] nasal spray 00 nostril 2 Med ical (two) Branch times daily. Use in each nostril as directed azelastine 2019-0 Yes [id number] 1{spray Use 1 [facility] 137 mcg 7-08 } [place] in [facility] of (0.1 %) 00:00: each [place] nasal spray 00 nostril 2 Med ical (two) Branch times daily. Use in each nostril as directed azelastine 2019-0 Yes [id number] 1{spray Use 1 [facility] 137 mcg 7-08 } [place] in [facility] of (0.1 %) 00:00: each [place] nasal spray 00 nostril 2 Med ical (two) Branch times daily. Use in each nostril as directed azelastine 2019-0 Yes [id number] 1{spray Use 1 [facility] 137 mcg 7-08 } [place] in [facility] of (0.1 %) 00:00: each [place] nasal spray 00 nostril 2 Med ical (two) Branch times daily. Use in each nostril as directed azelastine 2019-0 Yes [id number] 1{spray Use 1 [facility] 137 mcg 7-08 } [place] in [facility] of (0.1 %) 00:00: each [place] nasal spray 00 nostril 2 Med ical (two) Branch times daily. Use in each nostril as directed azelastine 2019-0 Yes [id number] 1{spray Use 1 [facility] 137 mcg 7-08 } [place] in [facility] of (0.1 %) 00:00: each [place] nasal spray 00 nostril 2 Med ical (two) Branch times daily. Use in each nostril as directed azelastine 2019- Yes [id number] 1{spray Use 1 [facility] 137 mcg 7-08 } [place] in [facility] of (0.1 %) 00:00: each [place] nasal spray 00 nostril 2 Med ical (two) Branch times daily. Use in each nostril as directed azelastine 2019- Yes [id number] 1{spray Use 1 [facility] 137 mcg 7-08 } [place] in [facility] of (0.1 %) 00:00: each [place] nasal spray 00 nostril 2 Med ical (two) Branch times daily. Use in each nostril as directed azelastine 2018- Yes [id number] 1{spray Use 1 [facility] 137 mcg 7-08 } [place] in [facility] of (0.1 %) 00:00: each [place] nasal spray 00 nostril 2 Med ical (two) Branch times daily. Use in each nostril as directed azelastine 2018- Yes [id number] 1{spray Use 1 [facility] 137 mcg 7-08 } [place] in [facility] (0.1 %) 00:00: each [place] nasal spray 00 nostril 2 Med ical (two) Branch times daily. Use in each nostril as directed azelastine 2018- Yes [id number] 1{spray Use 1 [facility] 137 mcg 7-08 } [place] in [facility] of (0.1 %) 00:00: each [place] nasal spray 00 nostril 2 Med ical (two) Branch times daily. Use in each nostril as directed azelastine 2018- Yes [id number] 1{spray Use 1 [facility] 137 mcg 7-08 } [place] in [facility] of (0.1 %) 00:00: each [place] nasal spray 00 nostril 2 Med ical (two) Branch times daily. Use in each nostril as directed azelastine 2019- Yes [id number] 1{spray Use 1 [facility] 137 mcg 7-08 } [place] in [facility] of (0.1 %) 00:00: each [place] nasal spray 00 nostril 2 Med ical (two) Branch times daily. Use in each nostril as directed azelastine 2018- Yes [id number] 1{spray Use 1 [facility] 137 mcg 7-08 } [place] in [facility] of (0.1 %) 00:00: each [place] nasal spray 00 nostril 2 Med ical (two) Branch times daily. Use in each nostril as directed azelastine 2019-0 Yes [id number] 1{spray Use 1 [facility] 137 mcg 7-08 } [place] in [facility] of (0.1 %) 00:00: each [place] nasal spray 00 nostril 2 Med ical (two) Branch times daily. Use in each nostril as directed azelastine 2019-0 Yes [id number] 1{spray Use 1 [facility] 137 mcg 7-08 } [place] in [facility] of (0.1 %) 00:00: each [place] nasal spray 00 nostril 2 Med ical (two) Branch times daily. Use in each nostril as directed azelastine 2019-0 Yes [id number] 1{spray Use 1 [facility] 137 mcg 7-08 } [place] in [facility] of (0.1 %) 00:00: each [place] nasal spray 00 nostril 2 Med ical (two) Branch times daily. Use in each nostril as directed azelastine 2019- Yes [id number] 1{spray Use 1 [facility] 137 mcg 7-08 } [place] in [facility] of (0.1 %) 00:00: each [place] nasal spray 00 nostril 2 Med ical (two) Branch times daily. Use in each nostril as directed azelastine 2019-0 Yes [id number] 1{spray Use 1 [facility] 137 mcg 7-08 } [place] in [facility] of (0.1 %) 00:00: each [place] nasal spray 00 nostril 2 Med ical (two) Branch times daily. Use in each nostril as directed azelastine 2019-0 Yes [id number] 1{spray Use 1 [facility] 137 mcg 7-08 } [place] in [facility] of (0.1 %) 00:00: each [place] nasal spray 00 nostril 2 Med ical (two) Branch times daily. Use in each nostril as directed azelastine 2019-0 Yes [id number] 1{spray Use 1 [facility] 137 mcg 7-08 } [place] in [facility] of (0.1 %) 00:00: each [place] nasal spray 00 nostril 2 Med ical (two) Branch times daily. Use in each nostril as directed azelastine 2019-0 Yes [id number] 1{spray Use 1 [facility] 137 mcg 7-08 } [place] in [facility] of (0.1 %) 00:00: each [place] nasal spray 00 nostril 2 Med ical (two) Branch times daily. Use in each nostril as directed azelastine 2019-0 Yes [id number] 1{spray Use 1 [facility] 137 mcg 7-08 } [place] in [facility] of (0.1 %) 00:00: each [place] nasal spray 00 nostril 2 Med ical (two) Branch times daily. Use in each nostril as directed azelastine 2019-0 Yes [id number] 1{spray Use 1 [facility] 137 mcg 7-08 } [place] in [facility] of (0.1 %) 00:00: each [place] nasal spray 00 nostril 2 Med ical (two) Branch times daily. Use in each nostril as directed azelastine 2019-0 Yes [id number] 1{spray Use 1 [facility] 137 mcg 7-08 } [place] in [facility] of (0.1 %) 00:00: each [place] nasal spray 00 nostril 2 Med ical (two) Branch times daily. Use in each nostril as directed azelastine 2018- Yes [id number] 1{spray Use 1 [facility] 137 mcg 7-08 } [place] in [facility] of (0.1 %) 00:00: each [place] nasal spray 00 nostril 2 Med ical (two) Branch times daily. Use in each nostril as directed azelastine 2019-0 Yes [id number] 1{spray Use 1 [facility] 137 mcg 7-08 } [place] in [facility] of (0.1 %) 00:00: each [place] nasal spray 00 nostril 2 Med ical (two) Branch times daily. Use in each nostril as directed azelastine 2019-0 Yes [id number] 1{spray Use 1 [facility] 137 mcg 7-08 } [place] in [facility] of (0.1 %) 00:00: each [place] nasal spray 00 nostril 2 Med ical (two) Branch times daily. Use in each nostril as directed azelastine 2019-0 Yes [id number] 1{spray Use 1 [facility] 137 mcg 7-08 } [place] in [facility] of (0.1 %) 00:00: each [place] nasal spray 00 nostril 2 Med ical (two) Branch times daily. Use in each nostril as directed azelastine 2019-0 Yes [id number] 1{spray Use 1 [facility] 137 mcg 7-08 } [place] in [facility] of (0.1 %) 00:00: each [place] nasal spray 00 nostril 2 Med ical (two) Branch times daily. Use in each nostril as directed azelastine 2019-0 Yes [id number] 1{spray Use 1 [facility] 137 mcg 7-08 } [place] in [facility] of (0.1 %) 00:00: each [place] nasal spray 00 nostril 2 Med ical (two) Branch times daily. Use in each nostril as directed azelastine 2019-0 Yes [id number] 1{spray Use 1 [facility] 137 mcg 7-08 } [place] in [facility] of (0.1 %) 00:00: each [place] nasal spray 00 nostril 2 Med ical (two) Branch times daily. Use in each nostril as directed azelastine 2019-0 Yes [id number] 1{spray Use 1 [facility] 137 mcg 7-08 } [place] in [facility] of (0.1 %) 00:00: each [place] nasal spray 00 nostril 2 Med ical (two) Branch times daily. Use in each nostril as directed azelastine 2018-0 Yes [id number] 1{spray Use 1 [facility] 137 mcg 7-08 } [place] in [facility] of (0.1 %) 00:00: each [place] nasal spray 00 nostril 2 Med ical (two) Branch times daily. Use in each nostril as directed azelastine 2019-0 Yes [id number] 1{spray Use 1 [facility] 137 mcg 7-08 } [place] in [facility] of (0.1 %) 00:00: each [place] nasal spray 00 nostril 2 Med ical (two) Branch times daily. Use in each nostril as directed azelastine 2019-0 Yes [id number] 1{spray Use 1 [facility] 137 mcg 7-08 } [place] in [facility] of (0.1 %) 00:00: each [place] nasal spray 00 nostril 2 Med ical (two) Branch times daily. Use in each nostril as directed azelastine 2018- Yes [id number] 1{spray Use 1 [facility] 137 mcg 7-08 } [place] in [facility] of (0.1 %) 00:00: each [place] nasal spray 00 nostril 2 Med ical (two) Branch times daily. Use in each nostril as directed azelastine 2019-0 Yes [id number] 1{spray Use 1 [facility] 137 mcg 7-08 } [place] in [facility] of (0.1 %) 00:00: each [place] nasal spray 00 nostril 2 Med ical (two) Branch times daily. Use in each nostril as directed azelastine 2019-0 Yes [id number] 1{spray Use 1 [facility] 137 mcg 7-08 } [place] in [facility] of (0.1 %) 00:00: each [place] nasal spray 00 nostril 2 Med ical (two) Branch times daily. Use in each nostril as directed azelastine 2019-0 Yes [id number] 1{spray Use 1 [facility] 137 mcg 7-08 } [place] in [facility] of (0.1 %) 00:00: each [place] nasal spray 00 nostril 2 Med ical (two) Branch times daily. Use in each nostril as directed azelastine 2019-0 Yes [id number] 1{spray Use 1 [facility] 137 mcg 7-08 } [place] in [facility] of (0.1 %) 00:00: each [place] nasal spray 00 nostril 2 Med ical (two) Branch times daily. Use in each nostril as directed azelastine 2019-0 Yes [id number] 1{spray Use 1 [facility] 137 mcg 7-08 } [place] in [facility] of (0.1 %) 00:00: each [place] nasal spray 00 nostril 2 Med ical (two) Branch times daily. Use in each nostril as directed azelastine 2019-0 Yes [id number] 1{spray Use 1 [facility] 137 mcg 7-08 } [place] in [facility] of (0.1 %) 00:00: each [place] nasal spray 00 nostril 2 Med ical (two) Branch times daily. Use in each nostril as directed azelastine 2019-0 Yes [id number] 1{spray Use 1 [facility] 137 mcg 7-08 } [place] in [facility] of (0.1 %) 00:00: each [place] nasal spray 00 nostril 2 Med ical (two) Branch times daily. Use in each nostril as directed azelastine 2019-0 Yes [id number] 1{spray Use 1 [facility] 137 mcg 7-08 } [place] in [facility] of (0.1 %) 00:00: each [place] nasal spray 00 nostril 2 Med ical (two) Branch times daily. Use in each nostril as directed azelastine 2019- Yes [id number] 1{spray Use 1 [facility] 137 mcg 7-08 } [place] in [facility] of (0.1 %) 00:00: each [place] nasal spray 00 nostril 2 Med ical (two) Branch times daily. Use in each nostril as directed azelastine 2018- Yes [id number] 1{spray Use 1 [facility] 137 mcg 7-08 } [place] in [facility] of (0.1 %) 00:00: each [place] nasal spray 00 nostril 2 Med ical (two) Branch times daily. Use in each nostril as directed azelastine 2018- Yes [id number] 1{spray Use 1 [facility] 137 mcg 7-08 } [place] in [facility] of (0.1 %) 00:00: each [place] nasal spray 00 nostril 2 Med ical (two) Branch times daily. Use in each nostril as directed azelastine 2018- Yes [id number] 1{spray Use 1 [facility] 137 mcg 7-08 } [place] in [facility] of (0.1 %) 00:00: each [place] nasal spray 00 nostril 2 Med ical (two) Branch times daily. Use in each nostril as directed azelastine 2019- Yes [id number] 1{spray Use 1 [facility] 137 mcg 7-08 } [place] in [facility] of (0.1 %) 00:00: each [place] nasal spray 00 nostril 2 Med ical (two) Branch times daily. Use in each nostril as directed azelastine 2019- Yes [id number] 1{spray Use 1 [facility] 137 mcg 7-08 } [place] in [facility] of (0.1 %) 00:00: each [place] nasal spray 00 nostril 2 Med ical (two) Branch times daily. Use in each nostril as directed azelastine 2019- Yes [id number] 1{spray Use 1 [facility] 137 mcg 7-08 } [place] in [facility] of (0.1 %) 00:00: each [place] nasal spray 00 nostril 2 Med ical (two) Branch times daily. Use in each nostril as directed azelastine 2019-0 Yes [id number] 1{spray Use 1 [facility] 137 mcg 7-08 } [place] in [facility] of (0.1 %) 00:00: each [place] nasal spray 00 nostril 2 Med ical (two) Branch times daily. Use in each nostril as directed azelastine 2019-0 Yes [id number] 1{spray Use 1 [facility] 137 mcg 7-08 } [place] in [facility]y of (0.1 %) 00:00: each [place] nasal spray 00 nostril 2 [facility] (two) Branch times daily. Use in each nostril as directed azelastine 2019-0 Yes [id number] 1{spray Use 1 [facility] 137 mcg 7-08 } [place] in [facility] of (0.1 %) 00:00: each [place] nasal spray 00 nostril 2 [facility] (two) Branch times daily. Use in each nostril as directed azelastine 2019-0 Yes [id number] 1{spray Use 1 [facility] 137 mcg 7-08 } [place] [facility] of (0.1 %) 00:00: each [place] nasal spray 00 nostril 2 [facility] (two) Branch times daily. Use in each nostril as directed azelastine 2019-0 Yes [id number] 1{spray Use 1 [facility] 137 mcg 7-08 } [place] [facility]y of (0.1 %) 00:00: each [place] nasal spray 00 nostril 2 [facility] (two) Branch times daily. Use in each nostril as directed azelastine 2019-0 Yes [id number] 1{spray Use 1 [facility] 137 mcg 7-08 } [place] [facility] of (0.1 %) 00:00: each [place] nasal spray 00 nostril 2 [facility] (two) Branch times daily. Use in each nostril as directed azelastine 2019-0 Yes [id number] 1{spray Use 1 [facility] 137 mcg 7-08 } [place] [facility]y of (0.1 %) 00:00: each [place] nasal spray 00 nostril 2 [facility] (two) Branch times daily. Use in each nostril as directed azelastine Yes [id number] 1{spray Use 1 [facility] 137 mcg 7-08 } [place] in [facility] of (0.1 %) 00:00: each [place] nasal spray 00 nostril 2 [facility] (two) Branch times daily. Use in each nostril as directed azelastine Yes [id number] 1{spray Use 1 [facility] 137 mcg 7-08 } [place] in [facility] of (0.1 %) 00:00: each [place] nasal spray 00 nostril 2 [facility] (two) Branch times daily. Use in each nostril as directed metoprolol 2017-04 Yes TK 1 T PO [facility] tartrate 2-[address] (LOPRESSOR) 00:00: [facility] 50 mg 00 l tablet metoprolol 2017-04 Yes TK 1 T PO [facility] tartrate 2-[address] (LOPRESSOR) 00:00: [facility] 50 mg 00 l tablet metoprolol 2017-04 Yes TK 1 T PO [facility] tartrate [facility]-[address] (LOPRESSOR) 00:00: [facility] 50 mg 00 l tablet etodolac 2017-04 Yes TAKE 1 [facility] (LODINE[facility] 2[facility] 500 MG [facility] TWICE l DAILY etodolac 2017-04 Yes TAKE 1 [facility] (LODINE) 2-[address] 500 MG 00:[facility] TWICE l DAILY etodolac 2017-04 Yes TAKE 1 [facility] (LODINE) 2-[address] 500 MG 00:00: [facility] tablet 00 TWICE l DAILY lisinopril 2017-04 Yes 10mg Take 10 mg [facility] (PRINIVIL,Z 1-[address] ESTRIL) 10 00:00: [facility] mg tablet 00 l lisinopril 2017-04 Yes 10mg Take 10 mg [facility] (PRINIVIL,Z 1-[address] ESTRIL) 10 00:00: [facility] mg tablet l lisinopril 2017-04 Yes 10mg Take 10 mg [facility] (PRINIVIL,Z 1-[address] ESTRIL) 10 00:00: [facility] mg tablet 00 l metFORMIN Yes TAKE 1 [facility] (GLUCOPHAGE 5-[address] ) 1,000 mg 00:00: [facility] tablet 00 TWICE l DAILY metFORMIN Yes TAKE 1 [facility] (GLUCOPHAGE 5-[address] ) 1,000 mg 00:00: [facility] tablet 00 TWICE l DAILY metFORMIN Yes TAKE 1 [facility] (GLUCOPHAGE 5-[address] ) 1,000 mg 00:00: [facility] tablet 00 TWICE l DAILY azelastine Yes 1{spray 1 spray [facility] (ASTELIN) 01-17 } into each st 137 mcg 00:00: nostril. [facility] (0.1 %) 00 l nasal spray azelastine Yes 1{spray 1 spray [facility] (ASTELIN) 01-17 } into each st 137 mcg 00:00: nostril. [facility] (0.1 %) 00 l nasal spray azelastine Yes 1{spray 1 spray [facility] (ASTELIN) 01-17 } into each st 137 mcg 00:00: nostril. [facility] (0.1 %) 00 l nasal spray ipratropium 2011-04 Yes [id number] [facility] ([facility]ROV[facility]) 2-18 ity of 0.03 % 00:00: [place] nasal spray [facility] ipratropium 2011-04 Yes [id number] [facility] (ATROVENT) 2-18 ity of 0.03 % 00:00: [place] nasal spray [facility] ipratropium 2011-04 Yes [id number] [facility] (ATROVENT) 2-18 ity of 0.03 % 00:00: [place] nasal spray [facility] ipratropium 2011-04 Yes [id number] [facility] (ATROVENT) 2-18 ity of 0.03 % 00:00: [place] nasal spray [facility] ipratropium 2011-04 Yes [id number] [facility] (ATROVENT) 2-18 ity of 0.03 % 00:00: [place] nasal spray [facility] ipratropium 2011-04 Yes [id number] [facility] (ATROVENT) 2-18 ity of 0.03 % 00:00: [place] nasal spray [facility] ipratropium 2011-04 Yes [id number] [facility] (ATROVENT) 2-18 ity of 0.03 % 00:00: [place] nasal spray 00 [facility] ipratropium 2011-04 Yes [id number] [facility] (ATROVENT) 2-18 ity of 0.03 % 00:00: [place] nasal spray [facility] ipratropium 2011-04 Yes [id number] [facility] (ATROVENT) 2-18 ity of 0.03 % 00:00: [place] nasal spray 00 [facility] ipratropium 2011-04 Yes [id number] [facility] (ATROVENT) 2-18 ity of 0.03 % 00:00: [place] nasal spray [facility] ipratropium 2011-04 Yes [id number] [facility] (ATROVENT) 2-18 ity of 0.03 % 00:00: [place] nasal spray [facility] ipratropium 2011-04 Yes [id number] [facility] (ATROVENT) 2-18 ity of 0.03 % 00:00: [place] nasal spray [facility] ipratropium 2011-04 Yes [id number] [facility] (ATROVENT) 2-18 ity of 0.03 % 00:00: [place] nasal spray [facility] ipratropium 2011-04 Yes [id number] [facility] (ATROVENT) 2-18 ity of 0.03 % 00:00: [place] nasal spray [facility] ipratropium 2011-04 Yes [id number] [facility] (ATROVENT) 2-18 ity of 0.03 % 00:00: [place] nasal spray [facility] ipratropium 2011-04 Yes [id number] [facility] (ATROVENT) 2-18 ity of 0.03 % 00:00: [place] nasal spray [facility] ipratropium 2011-04 Yes [id number] [facility] (ATROVENT) 2-18 ity of 0.03 % 00:00: [place] nasal spray 00 [facility] ipratropium 2011-04 Yes [id number] [facility] (ATROVENT) 2-18 ity of 0.03 % 00:00: [place] nasal spray [facility] ipratropium 2011-04 Yes [id number] [facility] (ATROVENT) 2-18 ity of 0.03 % 00:00: [place] nasal spray [facility] ipratropium 2011-04 Yes [id number] [facility] (ATROVENT) 2-18 ity of 0.03 % 00:00: [place] nasal spray 00 [facility] ipratropium 2011-04 Yes [id number] [facility] (ATROVENT) 2-18 ity of 0.03 % 00:00: [place] nasal spray [facility] ipratropium 2011-04 Yes [id number] [facility] (ATROVENT) 2-18 ity of 0.03 % 00:00: [place] nasal spray [facility] ipratropium 2011-04 Yes [id number] [facility] (ATROVENT) 2-18 ity of 0.03 % 00:00: [place] nasal spray [facility] ipratropium 2011-04 Yes [id number] [facility] (ATROVENT) 2-18 ity of 0.03 % 00:00: [place] nasal spray [facility] ipratropium 2011-04 Yes [id number] [facility] (ATROVENT) 2-18 ity of 0.03 % 00:00: [place] nasal spray [facility] ipratropium 2011-04 Yes [id number] [facility] (ATROVENT) 2-18 ity of 0.03 % 00:00: [place] nasal spray [facility] ipratropium 2011-04 Yes [id number] [facility] (ATR[facility]) 2-18 ity of 0.03 % 00:00: [place] nasal spray [facility] ipratropium 2011-04 Yes [id number] [facility] (ATROVENT) 2-18 ity of 0.03 % 00:00: [place] nasal spray [facility] ipratropium 2011-04 Yes [id number] [facility] (ATROVENT) 2-18 ity of 0.03 % 00:00: [place] nasal spray [facility] ipratropium 2011-04 Yes [id number] [facility] (ATROVENT) 2-18 ity of 0.03 % 00:00: [place] nasal spray [facility] ipratropium 2011-04 Yes [id number] [facility] (ATROVENT) 2-18 ity of 0.03 % 00:00: [place] nasal spray [facility] ipratropium 2011-04 Yes [id number] [facility] (ATROVENT) 2-18 ity of 0.03 % 00:00: [place] nasal spray 00 [facility] ipratropium 2011-04 Yes [id number] [facility] (ATROVENT) 2-18 ity of 0.03 % 00:00: [place] nasal spray [facility] ipratropium 2011-04 Yes [id number] [facility] (ATROVENT) 2-18 ity of 0.03 % 00:00: [place] nasal spray [facility] ipratropium 2011-04 Yes [id number] [facility] (ATROVENT) 2-18 ity of 0.03 % 00:00: [place] nasal spray [facility] ipratropium 2011-04 Yes [id number] [facility] (ATROVENT) 2-18 ity of 0.03 % 00:00: [place] nasal spray [facility] ipratropium 2011-04 Yes [id number] [facility] (ATROVENT) 2-18 ity of 0.03 % 00:00: [place] nasal spray [facility] ipratropium 2011-04 Yes [id number] [facility] (ATROVENT) 2-18 ity of 0.03 % 00:00: [place] nasal spray [facility] ipratropium 2011-04 Yes [id number] [facility] (ATROVENT) 2-18 ity of 0.03 % 00:00: [place] nasal spray [facility] ipratropium 2011-04 Yes [id number] [facility] (ATROVENT) 2-18 ity of 0.03 % 00:00: [place] nasal spray [facility] ipratropium 2011-04 Yes [id number] [facility] (ATROVENT) 2-18 ity of 0.03 % 00:00: [place] nasal spray 00 [facility] ipratropium 2011-04 Yes [id number] [facility] (ATROVENT) 2-18 ity of 0.03 % 00:00: [place] nasal spray 00 [facility] ipratropium 2011-04 Yes [id number] [facility] (ATROVENT) 2-18 ity of 0.03 % 00:00: [place] nasal spray [facility] ipratropium 2011-04 Yes [id number] [facility] (ATROVENT) 2-18 ity of 0.03 % 00:00: [place] nasal spray [facility] ipratropium 2011-04 Yes [id number] [facility] (ATROVENT) 2-18 ity of 0.03 % 00:00: [place] nasal spray 00 [facility] ipratropium 2011-04 Yes [id number] [facility] (ATROVENT) 2-18 ity of 0.03 % 00:00: [place] nasal spray [facility] ipratropium 2011-04 Yes [id number] [facility] (ATROVENT) 2-18 ity of 0.03 % 00:00: [place] nasal spray [facility] ipratropium 2011-04 Yes [id number] [facility] (ATROVENT) 2-18 ity of 0.03 % 00:00: [place] nasal spray [facility] ipratropium 2011-04 Yes [id number] [facility] (ATROVENT) 2-18 ity of 0.03 % 00:00: [place] nasal spray [facility] ipratropium 2011-04 Yes [id number] [facility] (ATROVENT) 2-18 ity of 0.03 % 00:00: [place] nasal spray [facility] ipratropium 2011-04 Yes [id number] [facility] (ATROVENT) 2-18 ity of 0.03 % 00:00: [place] nasal spray [facility] ipratropium 2011-04 Yes [id number] [facility] (ATROVENT) 2-18 ity of 0.03 % 00:00: [place] nasal spray [facility] ipratropium 2011-04 Yes [id number] [facility] (ATROVENT) 2-18 ity of 0.03 % 00:00: [place] nasal spray [facility] ipratropium 2011-04 Yes [id number] [facility] (ATROVENT) 2-18 ity of 0.03 % 00:00: [place] nasal spray [facility] ipratropium 2011-04 Yes [id number] [facility] (ATROVENT) 2-18 ity of 0.03 % 00:00: [place] nasal spray [facility] ipratropium 2011-04 Yes [id number] [facility] (ATROVENT) 2-18 ity of 0.03 % 00:00: [place] nasal spray [facility] ipratropium 2011-04 Yes [id number] [facility] (ATROVENT) 2-18 ity of 0.03 % 00:00: [place] nasal spray [facility] ipratropium 2011-04 Yes [id number] [facility] (ATROVENT) 2-18 ity of 0.03 % 00:00: [place] nasal spray 00 [facility] ipratropium 2011-04 Yes [id number] [facility] (ATROVENT) 2-18 ity of 0.03 % 00:00: [place] nasal spray 00 [facility] ipratropium 2011-04 Yes [id number] [facility] (ATROVENT) 2-18 ity of 0.03 % 00:00: [place] nasal spray [facility] ipratropium 2011-04 Yes [id number] [facility] (ATROVENT) 2-18 ity of 0.03 % 00:00: [place] nasal spray 00 [facility] ipratropium 2011-04 Yes [id number] [facility] (ATROVENT) 2-18 ity of 0.03 % 00:00: [place] nasal spray [facility] ipratropium 2011-04 Yes [id number] [facility] (ATROVENT) 2-18 ity of 0.03 % 00:00: [place] nasal spray [facility] ipratropium 2011-04 Yes [id number] [facility] (ATROVENT) 2-18 ity of 0.03 % 00:00: [place] nasal spray [facility] ipratropium 2011-04 Yes [id number] [facility] (ATROVENT) 2-18 ity of 0.03 % 00:00: [place] nasal spray [facility] ipratropium 2011-04 Yes [id number] [facility] (ATROVENT) 2-18 ity of 0.03 % 00:00: [place] nasal spray [facility] ipratropium 2011-04 Yes [id number] [facility] (ATROVENT) 2-18 ity of 0.03 % 00:00: [place] nasal spray 00 [facility] ipratropium 2011-04 Yes [id number] [facility] (ATROVENT) 2-18 ity of 0.03 % 00:00: [place] nasal spray 00 [facility] ipratropium 2011-04 Yes [id number] [facility] (ATROVENT) 2-18 ity of 0.03 % 00:00: [place] nasal spray [facility] ipratropium 2011-04 Yes [id number] [facility] (ATROVENT) 2-18 ity of 0.03 % 00:00: [place] nasal spray [facility] ipratropium 2011-04 Yes [id number] [facility] (ATROVENT) 2-18 ity of 0.03 % 00:00: [place] nasal spray 00 [facility] ipratropium 2011-04 Yes [id number] [facility] (ATROVENT) 2-18 ity of 0.03 % 00:00: [place] nasal spray [facility] ipratropium 2011-04 Yes [id number] [facility] (ATROVENT) 2-18 ity of 0.03 % 00:00: [place] nasal spray [facility] ipratropium 2011-04 Yes [id number] [facility] (ATROVENT) 2-18 ity of 0.03 % 00:00: [place] nasal spray [facility] ipratropium 2011-04 Yes [id number] [facility] (ATROVENT) 2-18 ity of 0.03 % 00:00: [place] nasal spray [facility] ipratropium 2011-04 Yes [id number] [facility] (ATROVENT) 2-18 ity of 0.03 % 00:00: [place] nasal spray [facility] ipratropium 2011-04 Yes [id number] [facility] (ATROVENT) 2-18 ity of 0.03 % 00:00: [place] nasal spray [facility] ipratropium 2011-04 Yes [id number] [facility] (ATROVENT) 2-18 ity of 0.03 % 00:00: [place] nasal spray [facility] ipratropium 2011-04 Yes [id number] [facility] (ATROVENT) 2-18 ity of 0.03 % 00:00: [place] nasal spray [facility] ipratropium 2011-04 Yes [id number] [facility] (ATROVENT) 2-18 ity of 0.03 % 00:00: [place] nasal spray 00 [facility] ipratropium 2011-04 Yes [id number] [facility] (ATROVENT) 2-18 ity of 0.03 % 00:00: [place] nasal spray [facility] ipratropium 2011-04 Yes [id number] [facility] (ATROVENT) 2-18 ity of 0.03 % 00:00: [place] nasal spray [facility] ipratropium 2011-04 Yes [id number] [facility] (ATROVENT) 2-18 ity of 0.03 % 00:00: [place] nasal spray [facility] ipratropium 2011-04 Yes [id number] [facility] (ATROVENT) 2-18 ity of 0.03 % 00:00: [place] nasal spray 00 [facility] ipratropium 2011-04 Yes [id number] [facility] (ATROVENT) 2-18 ity of 0.03 % 00:00: [place] nasal spray [facility] ipratropium 2011-04 Yes [id number] [facility] (ATROVENT) 2-18 ity of 0.03 % 00:00: [place] nasal spray [facility] ipratropium 2011-04 Yes [id number] [facility] (ATROVENT) 2-18 ity of 0.03 % 00:00: [place] nasal spray [facility] ipratropium 2011-04 Yes [id number] [facility] (ATROVENT) 2-18 ity of 0.03 % 00:00: [place] nasal spray [facility] ipratropium 2011-04 Yes [id number] [facility] (ATROVENT) 2-18 ity of 0.03 % 00:00: [place] nasal spray [facility] ipratropium 2011-04 Yes [id number] [facility] (ATROVENT) 2-18 ity of 0.03 % 00:00: [place] nasal spray [facility] ipratropium 2011-04 Yes [id number] [facility] (ATROVENT) 2-18 ity of 0.03 % 00:00: [place] nasal spray [facility] ipratropium 2011-04 Yes [id number] [facility] (ATROVENT) 2-18 ity of 0.03 % 00:00: [place] nasal spray [facility] ipratropium 2011-04 Yes [id number] [facility] (ATROVENT) 2-18 ity of 0.03 % 00:00: [place] nasal spray [facility] ipratropium 2011-04 Yes [id number] [facility] (ATROVENT) 2-18 ity of 0.03 % 00:00: [place] nasal spray [facility] ipratropium 2011-04 Yes [id number] [facility] (ATROVENT) 2-18 ity of 0.03 % 00:00: [place] nasal spray [facility] ipratropium 2011-04 Yes [id number] [facility] (ATROVENT) 2-18 ity of 0.03 % 00:00: [place] nasal spray 00 [facility] ipratropium 2011-04 Yes [id number] [facility] (ATROVENT) 2-18 ity of 0.03 % 00:00: [place] nasal spray 00 [facility] ipratropium 2011-04 Yes [id number] [facility] (ATROVENT) 2-18 ity of 0.03 % 00:00: [place] nasal spray [facility] ipratropium 2011-04 Yes [id number] [facility] (ATROVENT) 2-18 ity of 0.03 % 00:00: [place] nasal spray [facility] ipratropium 2011-04 Yes [id number] [facility] (ATROVENT) 2-18 ity of 0.03 % 00:00: [place] nasal spray [facility] ipratropium 2011-04 Yes [id number] [facility] (ATROVENT) 2-18 ity of 0.03 % 00:00: [place] nasal spray [facility] ipratropium 2011-04 Yes [id number] [facility] (ATROVENT) 2-18 ity of 0.03 % 00:00: [place] nasal spray [facility] ipratropium 2011-04 Yes [id number] [facility] (ATROVENT) 2-18 ity of 0.03 % 00:00: [place] nasal spray [facility] ipratropium 2011-04 Yes [id number] [facility] (ATROVENT) 2-18 ity of 0.03 % 00:00: [place] nasal spray [facility] ipratropium 2011-04 Yes [id number] [facility] (ATROVENT) 2-18 ity of 0.03 % 00:00: [place] nasal spray [facility] ipratropium 2011-04 Yes [id number] [facility] (ATROVENT) 2-18 ity of 0.03 % 00:00: [place] nasal spray [facility] ipratropium 2011-04 Yes [id number] [facility] (ATROVENT) 2-18 ity of 0.03 % 00:00: [place] nasal spray [facility] ipratropium 2011-04 Yes [id number] [facility] (ATROVENT) 2-18 ity of 0.03 % 00:00: [place] nasal spray [facility] ipratropium 2011-04 Yes [id number] [facility] (ATROVENT) 2-18 ity of 0.03 % 00:00: [place] nasal spray 00 [facility] ipratropium 2011-04 Yes [id number] [facility] (ATROVENT) 2-18 ity of 0.03 % 00:00: [place] nasal spray 00 [facility] ipratropium 2011-04 Yes [id number] [facility] (ATROVENT) 2-18 ity of 0.03 % 00:00: [place] nasal spray [facility] ipratropium 2011-04 Yes [id number] [facility] (ATROVENT) 2-18 ity of 0.03 % 00:00: [place] nasal spray 00 [facility] ipratropium 2011-04 Yes [id number] [facility] (ATROVENT) 2-18 ity of 0.03 % 00:00: [place] nasal spray [facility] ipratropium 2011-04 Yes [id number] [facility] (ATROVENT) 2-18 ity of 0.03 % 00:00: [place] nasal spray [facility] ipratropium 2011-04 Yes [id number] [facility] (ATROVENT) 2-18 ity of 0.03 % 00:00: [place] nasal spray [facility] ipratropium 2011-04 Yes [id number] [facility] (ATROVENT) 2-18 ity of 0.03 % 00:00: [place] nasal spray [facility] ipratropium 2011-04 Yes [id number] [facility] (ATROVENT) 2-18 ity of 0.03 % 00:00: [place] nasal spray [facility] ipratropium 2011-04 Yes [id number] [facility] (ATROVENT) 2-18 ity of 0.03 % 00:00: [place] nasal spray 00 [facility] ipratropium 2011-04 Yes [id number] [facility] (ATROVENT) 2-18 ity of 0.03 % 00:00: [place] nasal spray 00 [facility] ipratropium 2011-04 Yes [id number] [facility] (ATROVENT) 2-18 ity of 0.03 % 00:00: [place] nasal spray [facility] ipratropium 2011-04 Yes [id number] [facility] (ATROVENT) 2-18 ity of 0.03 % 00:00: [place] nasal spray [facility] ipratropium 2011-04 Yes [id number] [facility] (ATROVENT) 2-18 ity of 0.03 % 00:00: [place] nasal spray 00 [facility] ipratropium 2011-04 Yes [id number] [facility] (ATROVENT) 2-18 ity of 0.03 % 00:00: [place] nasal spray 00 [facility] ipratropium 2011-04 Yes [id number] [facility] (ATROVENT) 2-18 ity of 0.03 % 00:00: [place] nasal spray [facility] ipratropium 2011-04 Yes [id number] [facility] (ATROVENT) 2-18 ity of 0.03 % 00:00: [place] nasal spray 00 [facility] ipratropium 2011-04 Yes [id number] [facility] (ATROVENT) 2-18 ity of 0.03 % 00:00: [place] nasal spray [facility] ipratropium 2011-04 Yes [id number] [facility] (ATROVENT) 2-18 ity of 0.03 % 00:00: [place] nasal spray [facility] ipratropium 2011-04 Yes [id number] [facility] (ATROVENT) 2-18 ity of 0.03 % 00:00: [place] nasal spray [facility] ipratropium 2011-04 Yes [id number] [facility] (ATROVENT) 2-18 ity of 0.03 % 00:00: [place] nasal spray [facility] ipratropium 2011-04 Yes [id number] [facility] (ATROVENT) 2-18 ity of 0.03 % 00:00: [place] nasal spray [facility] ipratropium 2011-04 Yes [id number] [facility] (ATROVENT) 2-18 ity of 0.03 % 00:00: [place] nasal spray 00 [facility] ipratropium 2011-04 Yes [id number] [facility] (ATROVENT) 2-18 ity of 0.03 % 00:00: [place] nasal spray 00 [facility] ipratropium 2011-04 Yes [id number] [facility] (ATROVENT) 2-18 ity of 0.03 % 00:00: [place] nasal spray [facility] ipratropium 2011-04 Yes [id number] [facility] (ATROVENT) 2-18 ity of 0.03 % 00:00: [place] nasal spray [facility] ipratropium 2011-04 Yes [id number] [facility] (ATROVENT) 2-18 ity of 0.03 % 00:00: [place] nasal spray 00 [facility] ipratropium 2011-04 Yes [id number] [facility] (ATROVENT) 2-18 ity of 0.03 % 00:00: [place] nasal spray 00 [facility] ipratropium 2011-04 Yes [id number] [facility] (ATROVENT) 2-18 ity of 0.03 % 00:00: [place] nasal spray [facility] ipratropium 2011-04 Yes [id number] [facility] (ATROVENT) 2-18 ity of 0.03 % 00:00: [place] nasal spray 00 [facility] ipratropium 2011-04 Yes [id number] [facility] (ATROVENT) 2-18 ity of 0.03 % 00:00: [place] nasal spray [facility] ipratropium 2011-04 Yes [id number] [facility] (ATROVENT) 2-18 ity of 0.03 % 00:00: [place] nasal spray [facility] ipratropium 2011-04 Yes [id number] [facility] (ATROVENT) 2-18 ity of 0.03 % 00:00: [place] nasal spray [facility] ipratropium 2011-04 Yes [id number] [facility] (ATROVENT) 2-18 ity of 0.03 % 00:00: [place] nasal spray [facility] ipratropium 2011-04 Yes [id number] [facility] (ATROVENT) 2-18 ity of 0.03 % 00:00: [place] nasal spray [facility] ipratropium 2011-04 Yes [id number] [facility] (ATROVENT) 2-18 ity of 0.03 % 00:00: [place] nasal spray 00 [facility] ipratropium 2011-04 Yes [id number] [facility] (ATROVENT) 2-18 ity of 0.03 % 00:00: [place] nasal spray 00 [facility] ipratropium 2011-04 Yes [id number] [facility] (ATROVENT) 2-18 ity of 0.03 % 00:00: [place] nasal spray [facility] ipratropium 2011-04 Yes [id number] [facility] (ATROVENT) 2-18 ity of 0.03 % 00:00: [place] nasal spray [facility] ipratropium 2011-04 Yes [id number] [facility] (ATROVENT) 2-18 ity of 0.03 % 00:00: [place] nasal spray 00 [facility] ipratropium 2011-04 Yes [id number] [facility] (ATROVENT) 2-18 ity of 0.03 % 00:00: [place] nasal spray [facility] ipratropium 2011-04 Yes [id number] [facility] (ATROVENT) 2-18 ity of 0.03 % 00:00: [place] nasal spray 00 [facility] ipratropium 2011-04 Yes [id number] [facility] (ATROVENT) 2-18 ity of 0.03 % 00:00: [place] nasal spray [facility] ipratropium 2011-04 Yes [id number] [facility] (ATROVENT) 2-18 ity of 0.03 % 00:00: [place] nasal spray [facility] ipratropium 2011-04 Yes [id number] [facility] (ATROVENT) 2-18 ity of 0.03 % 00:00: [place] nasal spray [facility] ipratropium 2011-04 Yes [id number] [facility] (ATROVENT) 2-18 ity of 0.03 % 00:00: [place] nasal spray [facility] ipratropium 2011-04 Yes [id number] [facility] (ATROVENT) 2-18 ity of 0.03 % 00:00: [place] nasal spray [facility] ipratropium 2011-04 Yes [id number] [facility] (ATROVENT) 2-18 ity of 0.03 % 00:00: [place] nasal spray [facility] ipratropium 2011-04 Yes [id number] [facility] (ATROVENT) 2-18 ity of 0.03 % 00:00: [place] nasal spray [facility] ipratropium 2011-04 Yes [id number] [facility] (ATROVENT) 2-18 ity of 0.03 % 00:00: [place] nasal spray 00 [facility] ipratropium 2011-04 Yes [id number] [facility] (ATROVENT) 2-18 ity of 0.03 % 00:00: [place] nasal spray [facility] ipratropium 2011-04 Yes [id number] [facility] (ATROVENT) 2-18 ity of 0.03 % 00:00: [place] nasal spray [facility] ipratropium 2011-04 Yes [id number] [facility] (ATROVENT) 2-18 ity of 0.03 % 00:00: [place] nasal spray 00 [facility] ipratropium 2011-04 Yes [id number] [facility] (ATROVENT) 2-18 ity of 0.03 % 00:00: [place] nasal spray [facility] ipratropium 2011-04 Yes [id number] [facility] (ATROVENT) 2-18 ity of 0.03 % 00:00: [place] nasal spray [facility] ipratropium 2011-04 Yes [id number] [facility] (ATROVENT) 2-18 ity of 0.03 % 00:00: [place] nasal spray [facility] ipratropium 2011-04 Yes [id number] [facility] (ATROVENT) 2-18 ity of 0.03 % 00:00: [place] nasal spray [facility] ipratropium 2011-04 Yes [id number] [facility] (ATROVENT) 2-18 ity of 0.03 % 00:00: [place] nasal spray [facility] ipratropium 2011-04 Yes [id number] [facility] (ATROVENT) 2-18 ity of 0.03 % 00:00: [place] nasal spray [facility] ipratropium 2011-04 Yes [id number] [facility] (ATROVENT) 2-18 ity of 0.03 % 00:00: [place] nasal spray [facility] ipratropium 2011-04 Yes [id number] [facility] (ATROVENT) 2-18 ity of 0.03 % 00:00: [place] nasal spray [facility] ipratropium 2011-04 Yes [id number] [facility] (ATROVENT) 2-18 ity of 0.03 % 00:00: [place] nasal spray 00 [facility] Immunizations Ordered Filled Date Status Comments Source Immunization Name Immunization Name [facility] 2022-01-09 Completed [facility] 2022-01-09 Completed [facility]00 [facility] 2022-01-09 Completed [facility] 00:[facility]00 [facility] 2022-01-09 Completed [facility] 00[facility]:00 [facility] 2022-01-09 Completed [facility] 00:00:00 [facility] 2022-01-09 Completed [facility] 00[facility]:00 [facility] 2022-01-09 Completed [facility] 00[facility]:00 [facility] 2022-01-09 Completed [facility] 00[facility]:00 [facility] 2022-01-09 Completed [facility] 00:00:00 [facility] 2022-01-09 Completed [facility] 00[facility]:00 [facility] 2022-01-09 Completed [facility] 00:00:00 [facility] 2022-01-09 Completed [facility] 00[facility]00:00 [facility] 2022-01-09 Completed [facility] 00:00:00 [facility] 2022-01-09 Completed [facility] 00:00:00 [facility] BEBTELOVIMAB 2022-01-09 Completed [facility] 00:00:00 [facility] BEBTELOVIMAB 2022-01-09 Completed [facility] 00:00:00 [facility] BEBTELOVIMAB 2022-01-09 Completed [facility] o f 00:00:00 [facility] BEBTELOVIMAB 2022-01-09 Completed [facility] f 00:00:00 [facility] BEBTELOVIMAB 2022-01-09 Completed [facility] f 00:00:00 [facility] BEBTELOVIMAB 2022-01-09 Completed [facility] f 00:00:00 [facility] BEBTELOVIMAB 2022-01-09 Completed [facility] f 00:00:00 [facility] BEBTELOVIMAB 2022-01-09 Completed [facility] o f 00:00:00 [facility] BEBTELOVIMAB 2022-01-09 Completed [facility] f 00:00:00 [facility] BEBTELOVIMAB 2022-01-09 Completed [facility] f 00:00:00 [facility] BEBTELOVIMAB 2022-01-09 Completed [facility] f 00:00:00 [facility] BEBTELOVIMAB 2022-01-09 Completed [facility] o f 00:00:00 [facility] BEBTELOVIMAB 2022-01-09 Completed [facility] o f 00:00:00 [facility] BEBTELOVIMAB 2022-01-09 Completed [facility] o f 00:00:00 [facility] BEBTELOVIMAB 2022-01-09 Completed [facility] o f 00:00:00 [facility] BEBTELOVIMAB 2022-01-09 Completed [facility] o f 00:00:00 [facility] BEBTELOVIMAB 2022-01-09 Completed [facility] o f 00:00:00 [facility] BEBTELOVIMAB 2022-01-09 Completed [facility] o f 00:00:00 [facility] BEBTELOVIMAB 2022-01-09 Completed [facility] o f 00:00:00 [facility] BEBTELOVIMAB 2022-01-09 Completed [facility] o f 00:00:00 [facility] BEBTELOVIMAB 2022-01-09 Completed [facility] f 00:00:00 [facility] BEBTELOVIMAB 2022-01-09 Completed [facility] o f 00:00:00 [facility] BEBTELOVIMAB 2022-01-09 Completed [facility] o f 00:00:00 [facility] BEBTELOVIMAB 2022-01-09 Completed [facility] o f 00:00:00 [facility] BEBTELOVIMAB 2022-01-09 Completed [facility] o f 00:00:00 [facility] BEBTELOVIMAB 2022-01-09 Completed [facility] o f 00:00:00 [facility] BEBTELOVIMAB 2022-01-09 Completed [facility] o f 00:00:00 [facility] BEBTELOVIMAB 2022-01-09 Completed [facility] o f 00:00:00 [facility] BEBTELOVIMAB 2022-01-09 Completed [facility] o f 00:00:00 [facility] BEBTELOVIMAB 2022-01-09 Completed [facility] o f 00:00:00 [facility] BEBTELOVIMAB 2022-01-09 Completed [facility] o f 00:00:00 [facility] BEBTELOVIMAB 2022-01-09 Completed [facility] o f 00:00:00 [facility] BEBTELOVIMAB 2022-01-09 Completed [facility] o f 00:00:00 [facility] BEBTELOVIMAB 2022-01-09 Completed [facility] o f 00:00:00 [facility] BEBTELOVIMAB 2022-01-09 Completed [facility] o f 00:00:00 [facility] BEBTELOVIMAB 2022-01-09 Completed [facility] o f 00:00:00 [facility] BEBTELOVIMAB 2022-01-09 Completed [facility] o f 00:00:00 [facility] BEBTELOVIMAB 2022-01-09 Completed [facility] o f 00:00:00 [facility] BEBTELOVIMAB 2022-01-09 Completed [facility] o f 00:00:00 [facility] BEBTELOVIMAB 2022-01-09 Completed [facility] o f 00:00:00 [facility] BEBTELOVIMAB 2022-01-09 Completed [facility] o f 00:00:00 [facility] BEBTELOVIMAB 2022-01-09 Completed [facility] o f 00:00:00 [facility] BEBTELOVIMAB 2022-01-09 Completed [facility] o f 00:00:00 [facility] BEBTELOVIMAB 2022-01-09 Completed [facility] o f 00:00:00 [facility] BEBTELOVIMAB 2022-01-09 Completed [facility] o f 00:00:00 [facility] BEBTELOVIMAB 2022-01-09 Completed [facility] o f 00:00:00 [facility] BEBTELOVIMAB 2022-01-09 Completed [facility] o f 00:00:00 [facility] BEBTELOVIMAB 2022-01-09 Completed [facility] o f 00:00:00 [facility] BEBTELOVIMAB 2022-01-09 Completed [facility] o f 00:00:00 [facility] BEBTELOVIMAB 2022-01-09 Completed [facility] o f 00:00:00 [facility] BEBTELOVIMAB 2022-01-09 Completed [facility] o f 00:00:00 [facility] BEBTELOVIMAB 2022-01-09 Completed [facility] o f 00:00:00 [facility] BEBTELOVIMAB 2022-01-09 Completed [facility] o f 00:00:00 [facility] BEBTELOVIMAB 2022-01-09 Completed [facility] o f 00:00:00 [facility] BEBTELOVIMAB 2022-01-09 Completed [facility] o f 00:00:00 [facility] BEBTELOVIMAB 2022-01-09 Completed [facility] o f 00:00:00 [facility] BEBTELOVIMAB 2022-01-09 Completed [facility] o f 00:00:00 [facility] BEBTELOVIMAB 2022-01-09 Completed [facility] o f 00:00:00 [facility] BEBTELOVIMAB 2022-01-09 Completed [facility] o f 00:00:00 [facility] BEBTELOVIMAB 2022-01-09 Completed [facility] o f 00:00:00 [facility] BEBTELOVIMAB 2022-01-09 Completed [facility] o f 00:00:00 [facility] BEBTELOVIMAB 2022-01-09 Completed [facility] o f 00:00:00 [facility] BEBTELOVIMAB 2022-01-09 Completed [facility] o f 00:00:00 [facility] BEBTELOVIMAB 2022-01-09 Completed [facility] o f 00:00:00 [facility] BEBTELOVIMAB 2022-01-09 Completed [facility] o f 00:00:00 [facility] BEBTELOVIMAB 2022-01-09 Completed [facility] o f 00:00:00 [facility] BEBTELOVIMAB 2022-01-09 Completed [facility] o f 00:00:00 [facility] BEBTELOVIMAB 2022-01-09 Completed [facility] o f 00:00:00 [facility] BEBTELOVIMAB 2022-01-09 Completed [facility] o f 00:00:00 [facility] BEBTELOVIMAB 2022-01-09 Completed [facility] o f 00:00:00 [facility] BEBTELOVIMAB 2022-01-09 Completed [facility] o f 00:00:00 [facility] BEBTELOVIMAB 2022-01-09 Completed [facility] o f 00:00:00 [facility] BEBTELOVIMAB 2022-01-09 Completed [facility] o f 00:00:00 [facility] BEBTELOVIMAB 2022-01-09 Completed [facility] o f 00:00:00 [facility] BEBTELOVIMAB 2022-01-09 Completed [facility] o f 00:00:00 [facility] BEBTELOVIMAB 2022-01-09 Completed [facility] o f 00:00:00 [facility] BEBTELOVIMAB 2022-01-09 Completed [facility] o f 00:00:00 [facility] BEBTELOVIMAB 2022-01-09 Completed [facility] o f 00:00:00 [facility] BEBTELOVIMAB 2022-01-09 Completed [facility] o f 00:00:00 [facility] BEBTELOVIMAB 2022-01-09 Completed [facility] o f 00:00:00 [facility] BEBTELOVIMAB 2022-01-09 Completed [facility] o f 00:00:00 [facility] BEBTELOVIMAB 2022-01-09 Completed [facility] o f 00:00:00 [facility] BEBTELOVIMAB 2022-01-09 Completed [facility] o f 00:00:00 [facility] BEKAYLEEELOVIMAB 2022-01-09 Completed [facility] o f 00:00:00 [facility] BEBTELOVIMAB 2022-01-09 Completed [facility] o f 00:00:00 [facility] BEBTELOVIMAB 2022-01-09 Completed [facility] o f 00:00:00 [facility] BEBTELOVIMAB 2022-01-09 Completed [facility] o f 00:00:00 [facility] BEBTELOVIMAB 2022-01-09 Completed [facility] o f 00:00:00 [facility] BEBTELOVIMAB 2022-01-09 Completed [facility] o f 00:00:00 [facility] BEBTELOVIMAB 2022-01-09 Completed [facility] o f 00:00:00 [facility] BEBTELOVIMAB 2022-01-09 Completed [facility] o f 00:00:00 [facility] BEBTELOVIMAB 2022-01-09 Completed [facility] o f 00:00:00 [facility] BEBTELOVIMAB 2022-01-09 Completed [facility] o f 00:00:00 [facility] BEBTELOVIMAB 2022-01-09 Completed [facility] o f 00:00:00 [facility] BEBTELOVIMAB 2022-01-09 Completed [facility] o f 00:00:00 [facility] BEBTELOVIMAB 2022-01-09 Completed [facility] o f 00:00:00 [facility] BEBTELOVIMAB 2022-01-09 Completed [facility] o f 00:00:00 [facility] BEBTELOVIMAB 2022-01-09 Completed [facility] o f 00:00:00 [facility] BEBTELOVIMAB 2022-01-09 Completed [facility] o f 00:00:00 [facility] BEBTELOVIMAB 2022-01-09 Completed [facility] o f 00:00:00 [facility] BEBTELOVIMAB 2022-01-09 Completed [facility] o f 00:00:00 [facility] BEBTELOVIMAB 2022-01-09 Completed [facility] o f 00:00:00 [facility] BEBTELOVIMAB 2022-01-09 Completed [facility] o f 00:00:00 [facility] BEBTELOVIMAB 2022-01-09 Completed [facility] o f 00:00:00 [facility] BEBTELOVIMAB 2022-01-09 Completed [facility] o f 00:00:00 [facility] BEBTELOVIMAB 2022-01-09 Completed [facility] o f 00:00:00 [facility] BEBTELOVIMAB 2022-01-09 Completed [facility] o f 00:00:00 [facility] BEBTELOVIMAB 2022-01-09 Completed [facility] o f 00:00:00 [facility] BEBTELOVIMAB 2022-01-09 Completed [facility] o f 00:00:00 [facility] BEBTELOVIMAB 2022-01-09 Completed [facility] o f 00:00:00 [facility] BEBTELOVIMAB 2022-01-09 Completed [facility] o f 00:00:00 [facility] BEBTELOVIMAB 2022-01-09 Completed [facility] o f 00:00:00 [facility] BEBTELOVIMAB 2022-01-09 Completed [facility] o f 00:00:00 [facility] BEBTELOVIMAB 2022-01-09 Completed [facility] o f 00:00:00 [facility] BEBTELOVIMAB 2022-01-09 Completed [facility] o f 00:00:00 [facility] BEBTELOVIMAB 2022-01-09 Completed [facility] o f 00:00:00 [facility] BECHRISTOPHERPAB 2022-01-09 Completed [facility] o f 00:00:00 [facility] BECHRISTOPHERPAB 2022-01-09 Completed [facility] o f 00:00:00 [facility] BECHRISTOPHERPAB 2022-01-09 Completed [facility] o f 00:00:00 [facility] BECHRISTOPHERPAB 2022-01-09 Completed [facility] o f 00:00:00 [facility] BECHRISTOPHERPAB 2022-01-09 Completed [facility] o f 00:00:00 [facility] BECHRISTOPHERPAB 2022-01-09 Completed [facility] 00:00:00 [facility] 00:00:00 [facility]22-01-09 Com[facility] Completed [facility] f 00:00:00 [facility] 2022-01-09 Completed [facility] 00[facility]00[facility]00 [facility]22-01-09 Completed [facility] 00:[facility] 00:[facility]22-01-09 Completed [facility] 00:00[facility]00 [facility] 2022-01-09 Completed [facility] 00:00:00 [facility] 2022-01-09 Completed [facility] o [facility] 00:00:00 [facility] 2022-01-09 Completed [facility] o f 00:00:00 [facility] 2022-01-09 Completed [facility] o f 00:00:00 [facility] BEKAYLEECHANTELPAB 2022-01-09 Completed [facility] o f 00:00:00 [facility] Pneumococcal 2021-05-29 Completed [facility] o f Polysaccharide, 00:00:00 [facility] PPSV23 (PNEUMOVAX) [place] Pneumococcal 2021-05-29 Completed [facility] o [facility] Polysaccharide, 00:00:00 [facility] PPSV23 (PNEUMOVAX) [facility] Pneumococcal 2021-05-29 Completed [facility] o [facility] Polysaccharide, 00:00:00 [facility] PPSV23 (PNEUMOVAX) [facility] Pneumococcal 2021-05-29 Completed [facility] o [facility] Polysaccharide, 00:00:00 [facility] PPSV23 (PNEUMOVAX) [facility] Pneumococcal 2021-05-29 Completed [facility] o [facility] Polysaccharide, 00:00:00 [facility] PPSV23 (PNEUMOVAX) [facility] Pneumococcal 2021-05-29 Completed [facility] o [facility] Polysaccharide, 00:00:00 [facility] PPSV23 (PNEUMOVAX) [facility] Pneumococcal 2021-05-29 Completed [facility] o [facility] Polysaccharide, 00:00:00 [facility] PPSV23 (PNEUMOVAX) [facility] Pneumococcal 2021-05-29 Completed [facility] o f Polysaccharide, 00:00:00 [facility] PPSV23 (PNEUMOVAX) [facility] Pneumococcal 2021-05-29 Completed [facility] o [facility] Polysaccharide, 00:00:00 [facility] PPSV23 (PNEUMOVAX) [facility] Pneumococcal 2021-05-29 Completed [facility] o [facility] Polysaccharide, 00:00:00 [facility] PPSV23 (PNEUMOVAX) [facility] Pneumococcal 2021-05-29 Completed [facility] o [facility] Polysaccharide, 00:00:00 [facility] PPSV23 (PNEUMOVAX) [facility] Pneumococcal 2021-05-29 Completed [facility] o [facility] Polysaccharide, 00:00:00 [facility] PPSV23 (PNEUMOVAX) [facility] Pneumococcal 2021-05-29 Completed [facility] o [facility] Polysaccharide, 00:00:00 [place] [facility] PPSV23 (PNEUMOVAX) [facility] Pneumococcal 2021-05-29 Completed [facility] o [facility] Polysaccharide, 00:00:00 [facility] PPSV23 (PNEUMOVAX) [facility] Pneumococcal 2021-05-29 Completed [facility] o [facility] Polysaccharide, 00:00:00 [facility] PPSV23 (PNEUMOVAX) [facility] Pneumococcal 2021-05-29 Completed [facility] o [facility] Polysaccharide, 00:00:00 [facility] PPSV23 (PNEUMOVAX) [facility] Pneumococcal 2021-05-29 Completed [facility] o [facility] Polysaccharide, 00:00:00 [facility] PPSV23 (PNEUMOVAX) [facility] Pneumococcal 2021-05-29 Completed [facility] o [facility] Polysaccharide, 00:00:00 [place] [facility] PPSV23 (PNEUMOVAX) [facility] Pneumococcal 2021-05-29 Completed [facility] o [facility] Polysaccharide, 00:00:00 [place] [facility] PPSV23 (PNEUMOVAX) [facility] Pneumococcal 2021-05-29 Completed [facility] o [facility] Polysaccharide, 00:00:00 [place] [facility] PPSV23 (PNEUMOVAX) [facility] Pneumococcal 2021-05-29 Completed [facility] o [facility] Polysaccharide, 00:00:00 [facility] PPSV23 (PNEUMOVAX) [facility] Pneumococcal 2021-05-29 Completed [facility] o [facility] Polysaccharide, 00:00:00 [facility] PPSV23 (PNEUMOVAX) [facility] Pneumococcal 2021-05-29 Completed [facility] o [facility] Polysaccharide, 00:00:00 [place] [facility] PPSV23 (PNEUMOVAX) [facility] Pneumococcal 2021-05-29 Completed [facility] o [facility] Polysaccharide, 00:00:00 [place] [facility] PPSV23 (PNEUMOVAX) [facility] Pneumococcal 2021-05-29 Completed [facility] o f Polysaccharide, 00:00:00 [place] [facility] PPSV23 (PNEUMOVAX) [facility] Pneumococcal 2021-05-29 Completed [facility] o f Polysaccharide, 00:00:00 [place] [facility] PPSV23 (PNEUMOVAX) [facility] Pneumococcal 2021-05-29 Completed [facility] o f Polysaccharide, 00:00:00 [place] [facility] PPSV23 (PNEUMOVAX) [facility] Pneumococcal 2021-05-29 Completed [facility] o f Polysaccharide, 00:00:00 [place] [facility] PPSV23 (PNEUMOVAX) [facility] Pneumococcal 2021-05-29 Completed [facility] o f Polysaccharide, 00:00:00 [place] [facility] PPSV23 (PNEUMOVAX) [facility] Pneumococcal 2021-05-29 Completed [facility] o [facility] Polysaccharide, 00:00:00 [place] [facility] PPSV23 (PNEUMOVAX) [facility] Pneumococcal 2021-05-29 Completed [facility] o [facility] Polysaccharide, 00:00:00 [place] [facility] PPSV23 (PNEUMOVAX) [facility] Pneumococcal 2021-05-29 Completed [facility] o f Polysaccharide, 00:00:00 [place] [facility] PPSV23 (PNEUMOVAX) [facility] Pneumococcal 2021-05-29 Completed [facility] o f Polysaccharide, 00:00:00 [place] [facility] PPSV23 (PNEUMOVAX) [facility] Pneumococcal 2021-05-29 Completed [facility] o f Polysaccharide, 00:00:00 [place] [facility] PPSV23 (PNEUMOVAX) [facility] Pneumococcal 2021-05-29 Completed [facility] o f Polysaccharide, 00:00:00 [place] [facility] PPSV23 (PNEUMOVAX) [facility] Pneumococcal 2021-05-29 Completed [facility] o f Polysaccharide, 00:00:00 [place] [facility] PPSV23 (PNEUMOVAX) [facility] Pneumococcal 2021-05-29 Completed [facility] o f Polysaccharide, 00:00:00 [place] [facility] PPSV23 (PNEUMOVAX) [facility] Pneumococcal 2021-05-29 Completed [facility] o f Polysaccharide, 00:00:00 [place] [facility] PPSV23 (PNEUMOVAX) [facility] Pneumococcal 2021-05-29 Completed [facility] o f Polysaccharide, 00:00:00 [place] [facility] PPSV23 (PNEUMOVAX) [facility] Pneumococcal 2021-05-29 Completed [facility] o f Polysaccharide, 00:00:00 [place] [facility] PPSV23 (PNEUMOVAX) [facility] Pneumococcal 2021-05-29 Completed [facility] o f Polysaccharide, 00:00:00 [place] [facility] PPSV23 (PNEUMOVAX) [facility] Pneumococcal 2021-05-29 Completed [facility] o f Polysaccharide, 00:00:00 [place] [facility] PPSV23 (PNEUMOVAX) [facility] Pneumococcal 2021-05-29 Completed [facility] o f Polysaccharide, 00:00:00 [place] [facility] PPSV23 (PNEUMOVAX) [facility] Pneumococcal 2021-05-29 Completed [facility] o f Polysaccharide, 00:00:00 [place] [facility] PPSV23 (PNEUMOVAX) [facility] Pneumococcal 2021-05-29 Completed [facility] o f Polysaccharide, 00:00:00 [place] [facility] PPSV23 (PNEUMOVAX) [facility] Pneumococcal 2021-05-29 Completed [facility] o f Polysaccharide, 00:00:00 [place] [facility] PPSV23 (PNEUMOVAX) [facility] Pneumococcal 2021-05-29 Completed [facility] o f Polysaccharide, 00:00:00 [place] [facility] PPSV23 (PNEUMOVAX) [facility] Pneumococcal 2021-05-29 Completed [facility] o f Polysaccharide, 00:00:00 [place] [facility] PPSV23 (PNEUMOVAX) [facility] Pneumococcal 2021-05-29 Completed [facility] o f Polysaccharide, 00:00:00 [place] [facility] PPSV23 (PNEUMOVAX) [facility] Pneumococcal 2021-05-29 Completed [facility] o f Polysaccharide, 00:00:00 [place] [facility] PPSV23 (PNEUMOVAX) [facility] Pneumococcal 2021-05-29 Completed [facility] o f Polysaccharide, 00:00:00 [place] [facility] PPSV23 (PNEUMOVAX) [facility] Pneumococcal 2021-05-29 Completed [facility] o f Polysaccharide, 00:00:00 [place] [facility] PPSV23 (PNEUMOVAX) [facility] Pneumococcal 2021-05-29 Completed [facility] o f Polysaccharide, 00:00:00 [place] [facility] PPSV23 (PNEUMOVAX) [facility] Pneumococcal 2021-05-29 Completed [facility] o f Polysaccharide, 00:00:00 [place] [facility] PPSV23 (PNEUMOVAX) [facility] Pneumococcal 2021-05-29 Completed [facility] o f Polysaccharide, 00:00:00 [place] [facility] PPSV23 (PNEUMOVAX) [facility] Pneumococcal 2021-05-29 Completed [facility] o f Polysaccharide, 00:00:00 [place] [facility] PPSV23 (PNEUMOVAX) [facility] Pneumococcal 2021-05-29 Completed [facility] o f Polysaccharide, 00:00:00 [place] [facility] PPSV23 (PNEUMOVAX) [facility] Pneumococcal 2021-05-29 Completed [facility] o f Polysaccharide, 00:00:00 [place] [facility] PPSV23 (PNEUMOVAX) [facility] Pneumococcal 2021-05-29 Completed [facility] o f Polysaccharide, 00:00:00 [place] [facility] PPSV23 (PNEUMOVAX) [facility] Pneumococcal 2021-05-29 Completed [facility] o f Polysaccharide, 00:00:00 [place] [facility] PPSV23 (PNEUMOVAX) [facility] Pneumococcal 2021-05-29 Completed [facility] o f Polysaccharide, 00:00:00 [place] [facility] PPSV23 (PNEUMOVAX) [facility] Pneumococcal 2021-05-29 Completed [facility] o f Polysaccharide, 00:00:00 [place] [facility] PPSV23 (PNEUMOVAX) [facility] Pneumococcal 2021-05-29 Completed [facility] o f Polysaccharide, 00:00:00 [place] [facility] PPSV23 (PNEUMOVAX) [facility] Pneumococcal 2021-05-29 Completed [facility] o f Polysaccharide, 00:00:00 [place] [facility] PPSV23 (PNEUMOVAX) [facility] Pneumococcal 2021-05-29 Completed [facility] o f Polysaccharide, 00:00:00 [place] [facility] PPSV23 (PNEUMOVAX) [facility] Pneumococcal 2021-05-29 Completed [facility] o f Polysaccharide, 00:00:00 [place] [facility] PPSV23 (PNEUMOVAX) [facility] Pneumococcal 2021-05-29 Completed [facility] o f Polysaccharide, 00:00:00 [place] [facility] PPSV23 (PNEUMOVAX) [facility] Pneumococcal 2021-05-29 Completed [facility] o f Polysaccharide, 00:00:00 [place] [facility] PPSV23 (PNEUMOVAX) [facility] Pneumococcal 2021-05-29 Completed [facility] o f Polysaccharide, 00:00:00 [place] [facility] PPSV23 (PNEUMOVAX) [facility] Pneumococcal 2021-05-29 Completed [facility] o f Polysaccharide, 00:00:00 [place] [facility] PPSV23 (PNEUMOVAX) [facility] Pneumococcal 2021-05-29 Completed [facility] o f Polysaccharide, 00:00:00 [place] [facility] PPSV23 (PNEUMOVAX) [facility] Pneumococcal 2021-05-29 Completed [facility] o f Polysaccharide, 00:00:00 [place] [facility] PPSV23 (PNEUMOVAX) [facility] Pneumococcal 2021-05-29 Completed [facility] o f Polysaccharide, 00:00:00 [place] [facility] PPSV23 (PNEUMOVAX) [facility] Pneumococcal 2021-05-29 Completed [facility] o f Polysaccharide, 00:00:00 [place] [facility] PPSV23 (PNEUMOVAX) [facility] Pneumococcal 2021-05-29 Completed [facility] o f Polysaccharide, 00:00:00 [place] [facility] PPSV23 (PNEUMOVAX) [facility] Pneumococcal 2021-05-29 Completed [facility] o f Polysaccharide, 00:00:00 [place] [facility] PPSV23 (PNEUMOVAX) [facility] Pneumococcal 2021-05-29 Completed [facility] o f Polysaccharide, 00:00:00 [place] [facility] PPSV23 (PNEUMOVAX) [facility] Pneumococcal 2021-05-29 Completed [facility] o f Polysaccharide, 00:00:00 [place] [facility] PPSV23 (PNEUMOVAX) [facility] Pneumococcal 2021-05-29 Completed [facility] o f Polysaccharide, 00:00:00 [place] [facility] PPSV23 (PNEUMOVAX) [facility] Pneumococcal 2021-05-29 Completed [facility] o f Polysaccharide, 00:00:00 [place] [facility] PPSV23 (PNEUMOVAX) [facility] Pneumococcal 2021-05-29 Completed [facility] o f Polysaccharide, 00:00:00 [place] [facility] PPSV23 (PNEUMOVAX) [facility] Pneumococcal 2021-05-29 Completed [facility] o [facility] Polysaccharide, 00:00:00 [place] [facility] PPSV23 (PNEUMOVAX) [facility] Pneumococcal 2021-05-29 Completed [facility] o f Polysaccharide, 00:00:00 [place] [facility] PPSV23 (PNEUMOVAX) [facility] Pneumococcal 2021-05-29 Completed [facility] o f Polysaccharide, 00:00:00 [place] [facility] PPSV23 (PNEUMOVAX) [facility] Pneumococcal 2021-05-29 Completed [facility] o f Polysaccharide, 00:00:00 [place] [facility] PPSV23 (PNEUMOVAX) [facility] Pneumococcal 2021-05-29 Completed [facility] o f Polysaccharide, 00:00:00 [place] [facility] PPSV23 (PNEUMOVAX) [facility] Pneumococcal 2021-05-29 Completed [facility] o f Polysaccharide, 00:00:00 [place] [facility] PPSV23 (PNEUMOVAX) [facility] Pneumococcal 2021-05-29 Completed [facility] o f Polysaccharide, 00:00:00 [place] [facility] PPSV23 (PNEUMOVAX) [facility] Pneumococcal 2021-05-29 Completed [facility] o f Polysaccharide, 00:00:00 [place] [facility] PPSV23 (PNEUMOVAX) [facility] Pneumococcal 2021-05-29 Completed [facility] o f Polysaccharide, 00:00:00 [place] [facility] PPSV23 (PNEUMOVAX) [facility] Pneumococcal 2021-05-29 Completed [facility] o f Polysaccharide, 00:00:00 [place] [facility] PPSV23 (PNEUMOVAX) [facility] Pneumococcal 2021-05-29 Completed [facility] o f Polysaccharide, 00:00:00 [place] [facility] PPSV23 (PNEUMOVAX) [facility] Pneumococcal 2021-05-29 Completed [facility] o f Polysaccharide, 00:00:00 [place] [facility] PPSV23 (PNEUMOVAX) [facility] Pneumococcal 2021-05-29 Completed [facility] o f Polysaccharide, 00:00:00 [place] [facility] PPSV23 (PNEUMOVAX) [facility] Pneumococcal 2021-05-29 Completed [facility] o f Polysaccharide, 00:00:00 [place] [facility] PPSV23 (PNEUMOVAX) Branch Pneumococcal 2021-05-29 Completed [facility] o f Polysaccharide, 00:00:00 [place] [facility] PPSV23 (PNEUMOVAX) [facility] Pneumococcal 2021-05-29 Completed [facility] f Polysaccharide, 00:00:00 [place] [facility] PPSV23 (PNEUMOVAX) [facility] Pneumococcal 2021-05-29 Completed [facility] Polysaccharide, 00:00:00 [place] [facility] PPSV23 (PNEUMOVAX) [facility] Pneumococcal 2021-05-29 Completed [facility] Polysaccharide, 00:00:00 [place] [facility] PPSV23 (PNEUMOVAX) [facility] Pneumococcal 2021-05-29 Completed [facility] Polysaccharide, 00:00:00 [place] [facility] PPSV23 (PNEUMOVAX) [facility] Pneumococcal 2021-05-29 Completed [facility] Polysaccharide, 00:00:00 [place] [facility] PPSV23 (PNEUMOVAX) [facility] Pneumococcal 2021-05-29 Completed [facility] Polysaccharide, 00:00:00 [place] [facility] PPSV23 (PNEUMOVAX) [facility] Pneumococcal 2021-05-29 Completed [facility] Polysaccharide, 00:00:00 [place] [facility] PPSV23 (PNEUMOVAX) [facility] Pneumococcal 2021-05-29 Completed [facility] Polysaccharide, 00:00:00 [place] [facility] PPSV23 (PNEUMOVAX) [facility] Pneumococcal 2021-05-29 Completed [facility] Polysaccharide, 00:00:00 [place] [facility] PPSV23 (PNEUMOVAX) [facility] Pneumococcal 2021-05-29 Completed [facility] Polysaccharide, 00:00:00 [place] [facility] PPSV23 (PNEUMOVAX) [facility] Pneumococcal 2021-05-29 Completed [facility] Polysaccharide, 00:00:00 [place] [facility] PPSV23 (PNEUMOVAX) [facility] Pneumococcal 2021-05-29 Completed [facility] Polysaccharide, 00:00:00 [place] [facility] PPSV23 (PNEUMOVAX) [facility] Pneumococcal 2021-05-29 Completed [facility] Polysaccharide, 00:00:00 [place] [facility] PPSV23 (PNEUMOVAX) [facility] Pneumococcal 2021-05-29 Completed [facility] Polysaccharide, 00:00:00 [place] [facility] PPSV23 (PNEUMOVAX) [facility] Pneumococcal 2021-05-29 Completed [facility] Polysaccharide, 00:00:00 [place] [facility] PPSV23 (PNEUMOVAX) [facility] Pneumococcal 2021-05-29 Completed [facility] Polysaccharide, 00:00:00 [place] [facility] PPSV23 (PNEUMOVAX) [facility] Pneumococcal 2021-05-29 Completed [facility] Polysaccharide, 00:00:00 [place] [facility] PPSV23 (PNEUMOVAX) [facility] Pneumococcal 2021-05-29 Completed [facility] Polysaccharide, 00:00:00 [place] [facility] PPSV23 (PNEUMOVAX) [facility] Pneumococcal 2021-05-29 Completed [facility] Polysaccharide, 00:00:00 [place] [facility] PPSV23 (PNEUMOVAX) [facility] Pneumococcal 2021-05-29 Completed [facility] Polysaccharide, 00:00:00 [place] [facility] PPSV23 (PNEUMOVAX) [facility] Pneumococcal 2021-05-29 Completed [facility] Polysaccharide, 00:00:00 [place] [facility] PPSV23 (PNEUMOVAX) [facility] Pneumococcal 2021-05-29 Completed [facility] Polysaccharide, 00:00:00 [place] [facility] PPSV23 (PNEUMOVAX) [facility] Pneumococcal 2021-05-29 Completed [facility] Polysaccharide, 00:00:00 [place] [facility] PPSV23 (PNEUMOVAX) [facility] Pneumococcal 2021-05-29 Completed [facility] Polysaccharide, 00:00:00 [place] [facility] PPSV23 (PNEUMOVAX) [facility] Pneumococcal 2021-05-29 Completed [facility] Polysaccharide, 00:00:00 [place] [facility] PPSV23 (PNEUMOVAX) [facility] Pneumococcal 2021-05-29 Completed [facility] Polysaccharide, 00:00:00 [place] [facility] PPSV23 (PNEUMOVAX) [facility] Pneumococcal 2021-05-29 Completed [facility] Polysaccharide, 00:00:00 [place] [facility] PPSV23 (PNEUMOVAX) [facility] Pneumococcal 2021-05-29 Completed [facility] Polysaccharide, 00:00:00 [place] [facility] PPSV23 (PNEUMOVAX) [facility] Pneumococcal 2021-05-29 Completed [facility] Polysaccharide, 00:00:00 [place] [facility] PPSV23 (PNEUMOVAX) [facility] Pneumococcal 2021-05-29 Completed [facility] Polysaccharide, 00:00:00 [place] [facility] PPSV23 (PNEUMOVAX) [facility] Pneumococcal 2021-05-29 Completed [facility] Polysaccharide, 00:00:00 [place] [facility] PPSV23 (PNEUMOVAX) [facility] Pneumococcal 2021-05-29 Completed [facility] Polysaccharide, 00:00:00 [place] [facility] PPSV23 (PNEUMOVAX) [facility] Pneumococcal 2021-05-29 Completed [facility] Polysaccharide, 00:00:00 [place] [facility] PPSV23 (PNEUMOVAX) [facility] Pneumococcal 2021-05-29 Completed [facility] Polysaccharide, 00:00:00 [place] [facility] PPSV23 (PNEUMOVAX) [facility] Pneumococcal 2021-05-29 Completed [facility] Polysaccharide, 00:00:00 [place] [facility] PPSV23 (PNEUMOVAX) [facility] Pneumococcal 2021-05-29 Completed [facility] Polysaccharide, 00:00:00 [place] [facility] PPSV23 (PNEUMOVAX) [facility] Pneumococcal 2021-05-29 Completed [facility] Polysaccharide, 00:00:00 [place] [facility] PPSV23 (PNEUMOVAX) [facility] Pneumococcal 2021-05-29 Completed [facility] Polysaccharide, 00:00:00 [place] [facility] PPSV23 (PNEUMOVAX) [facility] Pneumococcal 2021-05-29 Completed [facility] Polysaccharide, 00:00:00 [place] [facility] PPSV23 (PNEUMOVAX) [facility] Pneumococcal 2021-05-29 Completed [facility] Polysaccharide, 00:00:00 [place] [facility] PPSV23 (PNEUMOVAX) [facility] Pneumococcal 2021-05-29 Completed [facility] Polysaccharide, 00:00:00 [place] [facility] PPSV23 (PNEUMOVAX) [facility] Pneumococcal 2021-05-29 Completed [facility] Polysaccharide, 00:00:00 [place] [facility] PPSV23 (PNEUMOVAX) [facility] Pneumococcal 2021-05-29 Completed [facility] Polysaccharide, 00:00:00 [place] [facility] PPSV23 (PNEUMOVAX) [facility] Pneumococcal 2021-05-29 Completed [facility] Polysaccharide, 00:00:00 [place] [facility] PPSV23 (PNEUMOVAX) [facility] Pneumococcal 2021-05-29 Completed [facility] Polysaccharide, 00:00:00 [place] [facility] PPSV23 (PNEUMOVAX) [facility] Pneumococcal 2021-05-29 Completed [facility] Polysaccharide, 00:00:00 [place] [facility] PPSV23 (PNEUMOVAX) [facility] Pneumococcal 2021-05-29 Completed [facility] Polysaccharide, 00:00:00 [place] [facility] PPSV23 (PNEUMOVAX) [facility] Pneumococcal 2021-05-29 Completed [facility] Polysaccharide, 00:00:00 [place] [facility] PPSV23 (PNEUMOVAX) [facility] Pneumococcal 2021-05-29 Completed [facility] Polysaccharide, 00:00:00 [place] [facility] PPSV23 (PNEUMOVAX) [facility] Pneumococcal 2021-05-29 Completed [facility] Polysaccharide, 00:00:00 [place] [facility] PPSV23 (PNEUMOVAX) [facility] Pneumococcal 2021-05-29 Completed [facility] Polysaccharide, 00:00:00 [place] [facility] PPSV23 (PNEUMOVAX) [facility] Pneumococcal 2021-05-29 Completed [facility] Polysaccharide, 00:00:00 [place] [facility] PPSV23 (PNEUMOVAX) [facility] Pneumococcal 2021-05-29 Completed [facility] Polysaccharide, 00:00:00 [place] [facility] PPSV23 (PNEUMOVAX) [facility] Pneumococcal 2021-05-29 Completed [facility] Polysaccharide, 00:00:00 [place] [facility] PPSV23 (PNEUMOVAX) [facility] Pneumococcal 2021-05-29 Completed [facility] Polysaccharide, 00:00:00 [place] [facility] PPSV23 (PNEUMOVAX) [facility] Pneumococcal 2021-05-29 Completed [facility] Polysaccharide, 00:00:00 [place] [facility] PPSV23 (PNEUMOVAX) [facility] SARS-COV-2 COVID-19 2020-12-15 Completed [facility] PFIZER VACCINE 00:00:00 [facility] SARS-COV-2 COVID-19 2020-12-15 Completed [facility] PFIZER VACCINE 00:00:00 [facility] SARS-COV-2 COVID-19 2020-12-15 Completed [facility] PFIZER VACCINE 00:00:00 [facility] SARS-COV-2 COVID-19 2020-12-15 Completed [facility] PFIZER VACCINE 00:00:00 [facility] SARS-COV-2 COVID-19 2020-12-15 Completed [facility] PFIZER VACCINE 00:00:00 [facility] SARS-COV-2 COVID-19 2020-12-15 Completed [facility] PFIZER VACCINE 00:00:00 [facility] SARS-COV-2 COVID-19 2020-12-15 Completed [facility] PFIZER VACCINE 00:00:00 [facility] SARS-COV-2 COVID-19 2020-12-15 Completed [facility] PFIZER VACCINE 00:00:00 [facility] SARS-COV-2 COVID-19 2020-12-15 Completed [facility] PFIZER VACCINE 00:00:00 [facility] SARS-COV-2 COVID-19 2020-12-15 Completed [facility] PFIZER VACCINE 00:00:00 [facility] SARS-COV-2 COVID-19 2020-12-15 Completed [facility] PFIZER VACCINE 00:00:00 [facility] SARS-COV-2 COVID-19 2020-12-15 Completed [facility] PFIZER VACCINE 00:00:00 [facility] SARS-COV-2 COVID-19 2020-12-15 Completed [facility] of PFIZER VACCINE 00:00:00 [facility] SARS-COV-2 COVID-19 2020-12-15 Completed [facility] of PFIZER VACCINE 00:00:00 [facility] SARS-COV-2 COVID-19 2020-12-15 Completed [facility] PFIZER VACCINE 00:00:00 [facility] SARS-COV-2 COVID-19 2020-12-15 Completed [facility] PFIZER VACCINE 00:00:00 [facility] SARS-COV-2 COVID-19 2020-12-15 Completed [facility] PFIZER VACCINE 00:00:00 [facility] SARS-COV-2 COVID-19 2020-12-15 Completed [facility] PFIZER VACCINE 00:00:00 [facility] SARS-COV-2 COVID-19 2020-12-15 Completed [facility] PFIZER VACCINE 00:00:00 [facility] SARS-COV-2 COVID-19 2020-12-15 Completed [facility] PFIZER VACCINE 00:00:00 [facility] SARS-COV-2 COVID-19 2020-12-15 Completed [facility] PFIZER VACCINE 00:00:00 [facility] SARS-COV-2 COVID-19 2020-12-15 Completed [facility] PFIZER VACCINE 00:00:00 [facility] SARS-COV-2 COVID-19 2020-12-15 Completed [facility] PFIZER VACCINE 00:00:00 [facility] SARS-COV-2 COVID-19 2020-12-15 Completed [facility] PFIZER VACCINE 00:00:00 [facility] SARS-COV-2 COVID-19 2020-12-15 Completed [facility] PFIZER VACCINE 00:00:00 [facility] SARS-COV-2 COVID-19 2020-12-15 Completed [facility] PFIZER VACCINE 00:00:00 [facility] SARS-COV-2 COVID-19 2020-12-15 Completed [facility] of PFIZER VACCINE 00:00:00 [facility] SARS-COV-2 COVID-19 2020-12-15 Completed [facility] PFIZER VACCINE 00:00:00 [facility] SARS-COV-2 COVID-19 2020-12-15 Completed [facility] PFIZER VACCINE 00:00:00 [facility] SARS-COV-2 COVID-19 2020-12-15 Completed [facility] PFIZER VACCINE 00:00:00 [facility] SARS-COV-2 COVID-19 2020-12-15 Completed [facility] of PFIZER VACCINE 00:00:00 [facility] SARS-COV-2 COVID-19 2020-12-15 Completed [facility] of PFIZER VACCINE 00:00:00 [facility] SARS-COV-2 COVID-19 2020-12-15 Completed [facility] of PFIZER VACCINE 00:00:00 [facility] SARS-COV-2 COVID-19 2020-12-15 Completed [facility] PFIZER VACCINE 00:00:00 [facility] SARS-COV-2 COVID-19 2020-12-15 Completed [facility] PFIZER VACCINE 00:00:00 [facility] SARS-COV-2 COVID-19 2020-12-15 Completed [facility] PFIZER VACCINE 00:00:00 [facility] SARS-COV-2 COVID-19 2020-12-15 Completed [facility] of PFIZER VACCINE 00:00:00 [facility] SARS-COV-2 COVID-19 2020-12-15 Completed [facility] PFIZER VACCINE 00:00:00 [facility] SARS-COV-2 COVID-19 2020-12-15 Completed [facility] PFIZER VACCINE 00:00:00 [facility] SARS-COV-2 COVID-19 2020-12-15 Completed [facility] PFIZER VACCINE 00:00:00 [facility] SARS-COV-2 COVID-19 2020-12-15 Completed [facility] PFIZER VACCINE 00:00:00 [facility] SARS-COV-2 COVID-19 2020-12-15 Completed [facility] PFIZER VACCINE 00:00:00 [facility] SARS-COV-2 COVID-19 2020-12-15 Completed [facility] of PFIZER VACCINE 00:00:00 [facility] SARS-COV-2 COVID-19 2020-12-15 Completed [facility] PFIZER VACCINE 00:00:00 [facility] SARS-COV-2 COVID-19 2020-12-15 Completed [facility] PFIZER VACCINE 00:00:00 [facility] SARS-COV-2 COVID-19 2020-12-15 Completed [facility] PFIZER VACCINE 00:00:00 [facility] SARS-COV-2 COVID-19 2020-12-15 Completed [facility] PFIZER VACCINE 00:00:00 [facility] SARS-COV-2 COVID-19 2020-12-15 Completed [facility] PFIZER VACCINE 00:00:00 [facility] SARS-COV-2 COVID-19 2020-12-15 Completed [facility] of PFIZER VACCINE 00:00:00 [facility] SARS-COV-2 COVID-19 2020-12-15 Completed [facility] PFIZER VACCINE 00:00:00 [facility] SARS-COV-2 COVID-19 2020-12-15 Completed [facility] PFIZER VACCINE 00:00:00 [facility] SARS-COV-2 COVID-19 2020-12-15 Completed [facility] PFIZER VACCINE 00:00:00 [facility] SARS-COV-2 COVID-19 2020-12-15 Completed [facility] PFIZER VACCINE 00:00:00 [facility] SARS-COV-2 COVID-19 2020-12-15 Completed [facility] PFIZER VACCINE 00:00:00 [facility] SARS-COV-2 COVID-19 2020-12-15 Completed [facility] PFIZER VACCINE 00:00:00 [facility] SARS-COV-2 COVID-19 2020-12-15 Completed [facility] of PFIZER VACCINE 00:00:00 [facility] SARS-COV-2 COVID-19 2020-12-15 Completed [facility] PFIZER VACCINE 00:00:00 [facility] SARS-COV-2 COVID-19 2020-12-15 Completed [facility] PFIZER VACCINE 00:00:00 [facility] SARS-COV-2 COVID-19 2020-12-15 Completed [facility] PFIZER VACCINE 00:00:00 [facility] SARS-COV-2 COVID-19 2020-12-15 Completed [facility] of PFIZER VACCINE 00:00:00 [facility] SARS-COV-2 COVID-19 2020-12-15 Completed [facility] PFIZER VACCINE 00:00:00 [facility] SARS-COV-2 COVID-19 2020-12-15 Completed [facility] PFIZER VACCINE 00:00:00 [facility] SARS-COV-2 COVID-19 2020-12-15 Completed [facility] of PFIZER VACCINE 00:00:00 [facility] SARS-COV-2 COVID-19 2020-12-15 Completed [facility] PFIZER VACCINE 00:00:00 [facility] SARS-COV-2 COVID-19 2020-12-15 Completed [facility] PFIZER VACCINE 00:00:00 [facility] SARS-COV-2 COVID-19 2020-12-15 Completed [facility] of PFIZER VACCINE 00:00:00 [facility] SARS-COV-2 COVID-19 2020-12-15 Completed [facility] of PFIZER VACCINE 00:00:00 [facility] SARS-COV-2 COVID-19 2020-12-15 Completed [facility] of PFIZER VACCINE 00:00:00 [facility] SARS-COV-2 COVID-19 2020-12-15 Completed [facility] of PFIZER VACCINE 00:00:00 [facility] SARS-COV-2 COVID-19 2020-12-15 Completed [facility] of PFIZER VACCINE 00:00:00 [facility] SARS-COV-2 COVID-19 2020-12-15 Completed [facility] PFIZER VACCINE 00:00:00 [facility] SARS-COV-2 COVID-19 2020-12-15 Completed [facility] PFIZER VACCINE 00:00:00 [facility] SARS-COV-2 COVID-19 2020-12-15 Completed [facility] of PFIZER VACCINE 00:00:00 [facility] SARS-COV-2 COVID-19 2020-12-15 Completed [facility] PFIZER VACCINE 00:00:00 [facility] SARS-COV-2 COVID-19 2020-12-15 Completed [facility] PFIZER VACCINE 00:00:00 [facility] SARS-COV-2 COVID-19 2020-12-15 Completed [facility] PFIZER VACCINE 00:00:00 [facility] SARS-COV-2 COVID-19 2020-12-15 Completed [facility] PFIZER VACCINE 00:00:00 [facility] SARS-COV-2 COVID-19 2020-12-15 Completed [facility] PFIZER VACCINE 00:00:00 [facility] SARS-COV-2 COVID-19 2020-12-15 Completed [facility] PFIZER VACCINE 00:00:00 [facility] SARS-COV-2 COVID-19 2020-12-15 Completed [facility] of PFIZER VACCINE 00:00:00 [facility] SARS-COV-2 COVID-19 2020-12-15 Completed [facility] of PFIZER VACCINE 00:00:00 [facility] SARS-COV-2 COVID-19 2020-12-15 Completed [facility] of PFIZER VACCINE 00:00:00 [facility] SARS-COV-2 COVID-19 2020-12-15 Completed [facility] of PFIZER VACCINE 00:00:00 [facility] SARS-COV-2 COVID-19 2020-12-15 Completed [facility] of PFIZER VACCINE 00:00:00 [facility] SARS-COV-2 COVID-19 2020-12-15 Completed [facility] of PFIZER VACCINE 00:00:00 [facility] SARS-COV-2 COVID-19 2020-12-15 Completed [facility] of PFIZER VACCINE 00:00:00 [facility] SARS-COV-2 COVID-19 2020-12-15 Completed [facility] of PFIZER VACCINE 00:00:00 [facility] SARS-COV-2 COVID-19 2020-12-15 Completed [facility] PFIZER VACCINE 00:00:00 [facility] SARS-COV-2 COVID-19 2020-12-15 Completed [facility] of PFIZER VACCINE 00:00:00 [facility] SARS-COV-2 COVID-19 2020-12-15 Completed [facility] of PFIZER VACCINE 00:00:00 [facility] SARS-COV-2 COVID-19 2020-12-15 Completed [facility] of PFIZER VACCINE 00:00:00 [facility] SARS-COV-2 COVID-19 2020-12-15 Completed [facility] of PFIZER VACCINE 00:00:00 [facility] SARS-COV-2 COVID-19 2020-12-15 Completed [facility] of PFIZER VACCINE 00:00:00 [facility] SARS-COV-2 COVID-19 2020-12-15 Completed [facility] of PFIZER VACCINE 00:00:00 [facility] SARS-COV-2 COVID-19 2020-12-15 Completed [facility] of PFIZER VACCINE 00:00:00 [facility] SARS-COV-2 COVID-19 2020-12-15 Completed [facility] of PFIZER VACCINE 00:00:00 [facility] SARS-COV-2 COVID-19 2020-12-15 Completed [facility] of PFIZER VACCINE 00:00:00 [facility] SARS-COV-2 COVID-19 2020-12-15 Completed [facility] of PFIZER VACCINE 00:00:00 [facility] SARS-COV-2 COVID-19 2020-12-15 Completed [facility] PFIZER VACCINE 00:00:00 [facility] SARS-COV-2 COVID-19 2020-12-15 Completed [facility] of PFIZER VACCINE 00:00:00 [facility] SARS-COV-2 COVID-19 2020-12-15 Completed [facility] of PFIZER VACCINE 00:00:00 [facility] SARS-COV-2 COVID-19 2020-12-15 Completed [facility] PFIZER VACCINE 00:00:00 [facility] SARS-COV-2 COVID-19 2020-12-15 Completed [facility] PFIZER VACCINE 00:00:00 [facility] SARS-COV-2 COVID-19 2020-12-15 Completed [facility] of PFIZER VACCINE 00:00:00 [facility] SARS-COV-2 COVID-19 2020-12-15 Completed [facility] PFIZER VACCINE 00:00:00 [facility] SARS-COV-2 COVID-19 2020-12-15 Completed [facility] PFIZER VACCINE 00:00:00 [facility] SARS-COV-2 COVID-19 2020-12-15 Completed [facility] of PFIZER VACCINE 00:00:00 [facility] SARS-COV-2 COVID-19 2020-12-15 Completed [facility] of PFIZER VACCINE 00:00:00 [facility] SARS-COV-2 COVID-19 2020-12-15 Completed [facility] of PFIZER VACCINE 00:00:00 [facility] SARS-COV-2 COVID-19 2020-12-15 Completed [facility] of PFIZER VACCINE 00:00:00 [facility] SARS-COV-2 COVID-19 2020-12-15 Completed [facility] of PFIZER VACCINE 00:00:00 [facility] SARS-COV-2 COVID-19 2020-12-15 Completed [facility] PFIZER VACCINE 00:00:00 [facility] SARS-COV-2 COVID-19 2020-12-15 Completed [facility] PFIZER VACCINE 00:00:00 [facility] SARS-COV-2 COVID-19 2020-12-15 Completed [facility] of PFIZER VACCINE 00:00:00 [facility] SARS-COV-2 COVID-19 2020-12-15 Completed [facility] of PFIZER VACCINE 00:00:00 [facility] SARS-COV-2 COVID-19 2020-12-15 Completed [facility] PFIZER VACCINE 00:00:00 [facility] SARS-COV-2 COVID-19 2020-12-15 Completed [facility] of PFIZER VACCINE 00:00:00 [facility] SARS-COV-2 COVID-19 2020-12-15 Completed [facility] of PFIZER VACCINE 00:00:00 [facility] SARS-COV-2 COVID-19 2020-12-15 Completed [facility] of PFIZER VACCINE 00:00:00 [facility] SARS-COV-2 COVID-19 2020-12-15 Completed [facility] of PFIZER VACCINE 00:00:00 [facility] SARS-COV-2 COVID-19 2020-12-15 Completed [facility] PFIZER VACCINE 00:00:00 [facility] SARS-COV-2 COVID-19 2020-12-15 Completed [facility] of PFIZER VACCINE 00:00:00 [facility] SARS-COV-2 COVID-19 2020-12-15 Completed [facility] PFIZER VACCINE 00:00:00 [facility] SARS-COV-2 COVID-19 2020-12-15 Completed [facility] PFIZER VACCINE 00:00:00 [facility] SARS-COV-2 COVID-19 2020-12-15 Completed [facility] PFIZER VACCINE 00:00:00 [facility] SARS-COV-2 COVID-19 2020-12-15 Completed [facility] PFIZER VACCINE 00:00:00 [facility] SARS-COV-2 COVID-19 2020-12-15 Completed [facility] PFIZER VACCINE 00:00:00 [facility] SARS-COV-2 COVID-19 2020-12-15 Completed [facility] PFIZER VACCINE 00:00:00 [facility] SARS-COV-2 COVID-19 2020-12-15 Completed [facility] PFIZER VACCINE 00:00:00 [facility] SARS-COV-2 COVID-19 2020-12-15 Completed [facility] PFIZER VACCINE 00:00:00 [facility] SARS-COV-2 COVID-19 2020-12-15 Completed [facility] PFIZER VACCINE 00:[facility] [facility] SARS-COV-2 COVID-19 2020-12-15 Completed [facility] PFIZER VACCINE 00:00:00 [facility] SARS-COV-2 COVID-19 2020-12-15 Completed [facility] PFIZER VACCINE 00:00:00 [facility] SARS-COV-2 COVID-19 2020-12-15 Completed [facility] PFIZER VACCINE 00:00:00 [facility] SARS-COV-2 COVID-19 2020-12-15 Completed [facility] PFIZER VACCINE 00:00:00 [facility] SARS-COV-2 COVID-19 2020-12-15 Completed [facility] PFIZER VACCINE 00:00:00 [facility] SARS-COV-2 COVID-19 2020-12-15 Completed [facility] PFIZER VACCINE 00:00:00 [facility] SARS-COV-2 COVID-19 2020-12-15 Completed [facility] PFIZER VACCINE 00:00:00 [facility] SARS-COV-2 COVID-19 2020-12-15 Completed [facility] PFIZER VACCINE 00:00:00 [facility] SARS-COV-2 COVID-19 2020-12-15 Completed [facility] PFIZER VACCINE 00:00:00 [facility] SARS-COV-2 COVID-19 2020-12-15 Completed [facility] PFIZER VACCINE 00:00:00 [facility] SARS-COV-2 COVID-19 2020-12-15 Completed [facility] PFIZER VACCINE 00:00:00 [facility] SARS-COV-2 COVID-19 2020-12-15 Completed [facility] PFIZER VACCINE 00:00:00 [facility] SARS-COV-2 COVID-19 2020-12-15 Completed [facility] PFIZER VACCINE 00:00:00 [facility] SARS-COV-2 COVID-19 2020-12-15 Completed [facility] PFIZER VACCINE 00:00:00 [facility] SARS-COV-2 COVID-19 2020-12-15 Completed [facility] PFIZER VACCINE 00:00:00 [facility] SARS-COV-2 COVID-19 2020-12-15 Completed [facility] PFIZER VACCINE 00:00:00 [facility] SARS-COV-2 COVID-19 2020-12-15 Completed [facility] PFIZER VACCINE 00:00:00 [facility] SARS-COV-2 COVID-19 2020-12-15 Completed [facility] PFIZER VACCINE 00:00:00 [facility] SARS-COV-2 COVID-19 2020-12-15 Completed [facility] PFIZER VACCINE 00:00:00 [facility] SARS-COV-2 COVID-19 2020-12-15 Completed [facility] PFIZER VACCINE 00:00:00 [facility] SARS-COV-2 COVID-19 2020-12-15 Completed [facility] PFIZER VACCINE 00:00:00 [facility] SARS-COV-2 COVID-19 2020-11-25 Completed [facility] PFIZER VACCINE 00:00:00 [facility] SARS-COV-2 COVID-19 2020-11-25 Completed [facility] PFIZER VACCINE 00:00:00 [facility] SARS-COV-2 COVID-19 2020-11-25 Completed [facility] PFIZER VACCINE 00:00:00 [facility] SARS-COV-2 COVID-19 2020-11-25 Completed [facility] PFIZER VACCINE 00:00:00 [facility] SARS-COV-2 COVID-19 2020-11-25 Completed [facility] PFIZER VACCINE 00:00:00 [facility] SARS-COV-2 COVID-19 2020-11-25 Completed [facility] PFIZER VACCINE 00:00:00 [facility] SARS-COV-2 COVID-19 2020-11-25 Completed [facility] PFIZER VACCINE 00:00:00 [facility] SARS-COV-2 COVID-19 2020-11-25 Completed [facility] PFIZER VACCINE 00:00:00 [facility] SARS-COV-2 COVID-19 2020-11-25 Completed [facility] PFIZER VACCINE 00:00:00 [facility] SARS-COV-2 COVID-19 2020-11-25 Completed [facility] PFIZER VACCINE 00:00:00 [facility] SARS-COV-2 COVID-19 2020-11-25 Completed [facility] PFIZER VACCINE 00:00:00 [facility] SARS-COV-2 COVID-19 2020-11-25 Completed [facility] PFIZER VACCINE 00:00:00 [facility] SARS-COV-2 COVID-19 2020-11-25 Completed [facility] PFIZER VACCINE 00:00:00 [facility] SARS-COV-2 COVID-19 2020-11-25 Completed [facility] PFIZER VACCINE 00:00:00 [facility] SARS-COV-2 COVID-19 2020-11-25 Completed [facility] PFIZER VACCINE 00:00:00 [facility] SARS-COV-2 COVID-19 2020-11-25 Completed [facility] PFIZER VACCINE 00:00:00 [facility] SARS-COV-2 COVID-19 2020-11-25 Completed [facility] PFIZER VACCINE 00:00:00 [facility] SARS-COV-2 COVID-19 2020-11-25 Completed [facility] PFIZER VACCINE 00:00:00 [facility] SARS-COV-2 COVID-19 2020-11-25 Completed [facility] PFIZER VACCINE 00:00:00 [facility] SARS-COV-2 COVID-19 2020-11-25 Completed [facility] PFIZER VACCINE 00:00:00 [facility] SARS-COV-2 COVID-19 2020-11-25 Completed [facility] PFIZER VACCINE 00:00:00 [facility] SARS-COV-2 COVID-19 2020-11-25 Completed [facility] PFIZER VACCINE 00:00:00 [facility] SARS-COV-2 COVID-19 2020-11-25 Completed [facility] PFIZER VACCINE 00:00:00 [facility] SARS-COV-2 COVID-19 2020-11-25 Completed [facility] PFIZER VACCINE 00:00:00 [facility] SARS-COV-2 COVID-19 2020-11-25 Completed [facility] PFIZER VACCINE 00:00:00 [facility] SARS-COV-2 COVID-19 2020-11-25 Completed [facility] PFIZER VACCINE 00:00:00 [facility] SARS-COV-2 COVID-19 2020-11-25 Completed [facility] PFIZER VACCINE 00:00:00 [facility] SARS-COV-2 COVID-19 2020-11-25 Completed [facility] PFIZER VACCINE 00:00:00 [facility] SARS-COV-2 COVID-19 2020-11-25 Completed [facility] PFIZER VACCINE 00:00:00 [facility] SARS-COV-2 COVID-19 2020-11-25 Completed [facility] PFIZER VACCINE 00:00:00 [facility] SARS-COV-2 COVID-19 2020-11-25 Completed [facility] PFIZER VACCINE 00:00:00 [facility] SARS-COV-2 COVID-19 2020-11-25 Completed [facility] PFIZER VACCINE 00:00:00 [facility] SARS-COV-2 COVID-19 2020-11-25 Completed [facility] PFIZER VACCINE 00:00:00 [facility] SARS-COV-2 COVID-19 2020-11-25 Completed [facility] PFIZER VACCINE 00:00:00 [facility] SARS-COV-2 COVID-19 2020-11-25 Completed [facility] PFIZER VACCINE 00:00:00 [facility] SARS-COV-2 COVID-19 2020-11-25 Completed [facility] PFIZER VACCINE 00:00:00 [facility] SARS-COV-2 COVID-19 2020-11-25 Completed [facility] PFIZER VACCINE 00:00:00 [facility] SARS-COV-2 COVID-19 2020-11-25 Completed [facility] PFIZER VACCINE 00:00:00 [facility] SARS-COV-2 COVID-19 2020-11-25 Completed [facility] PFIZER VACCINE 00:00:00 [facility] SARS-COV-2 COVID-19 2020-11-25 Completed [facility] PFIZER VACCINE 00:00:00 [facility] SARS-COV-2 COVID-19 2020-11-25 Completed [facility] PFIZER VACCINE 00:00:00 [facility] SARS-COV-2 COVID-19 2020-11-25 Completed [facility] PFIZER VACCINE 00:00:00 [facility] SARS-COV-2 COVID-19 2020-11-25 Completed [facility] PFIZER VACCINE 00:00:00 [facility] SARS-COV-2 COVID-19 2020-11-25 Completed [facility] PFIZER VACCINE 00:00:00 [facility] SARS-COV-2 COVID-19 2020-11-25 Completed [facility] PFIZER VACCINE 00:00:00 [facility] SARS-COV-2 COVID-19 2020-11-25 Completed [facility] PFIZER VACCINE 00:00:00 [place] [facility] SARS-COV-2 COVID-19 2020-11-25 Completed [facility] PFIZER VACCINE 00:00:00 [facility] SARS-COV-2 COVID-19 2020-11-25 Completed [facility] PFIZER VACCINE 00:00:00 [facility] SARS-COV-2 COVID-19 2020-11-25 Completed [facility] PFIZER VACCINE 00:00:00 [facility] SARS-COV-2 COVID-19 2020-11-25 Completed [facility] PFIZER VACCINE 00:00:00 [facility] SARS-COV-2 COVID-19 2020-11-25 Completed [facility] PFIZER VACCINE 00:00:00 [facility] SARS-COV-2 COVID-19 2020-11-25 Completed [facility] PFIZER VACCINE 00:00:00 [facility] SARS-COV-2 COVID-19 2020-11-25 Completed [facility] PFIZER VACCINE 00:00:00 [facility] SARS-COV-2 COVID-19 2020-11-25 Completed [facility] PFIZER VACCINE 00:00:00 [facility] SARS-COV-2 COVID-19 2020-11-25 Completed [facility] PFIZER VACCINE 00:00:00 [facility] SARS-COV-2 COVID-19 2020-11-25 Completed [facility] PFIZER VACCINE 00:00:00 [facility] SARS-COV-2 COVID-19 2020-11-25 Completed [facility] PFIZER VACCINE 00:00:00 [facility] SARS-COV-2 COVID-19 2020-11-25 Completed [facility] PFIZER VACCINE 00:00:00 [facility] SARS-COV-2 COVID-19 2020-11-25 Completed [facility] PFIZER VACCINE 00:00:00 [facility] SARS-COV-2 COVID-19 2020-11-25 Completed [facility] PFIZER VACCINE 00:00:00 [facility] SARS-COV-2 COVID-19 2020-11-25 Completed [facility] PFIZER VACCINE 00:00:00 [facility] SARS-COV-2 COVID-19 2020-11-25 Completed [facility] PFIZER VACCINE 00:00:00 [facility] SARS-COV-2 COVID-19 2020-11-25 Completed [facility] PFIZER VACCINE 00:00:00 [facility] SARS-COV-2 COVID-19 2020-11-25 Completed [facility] PFIZER VACCINE 00:00:00 [facility] SARS-COV-2 COVID-19 2020-11-25 Completed [facility] PFIZER VACCINE 00:00:00 [facility] SARS-COV-2 COVID-19 2020-11-25 Completed [facility] PFIZER VACCINE 00:00:00 [facility] SARS-COV-2 COVID-19 2020-11-25 Completed [facility] PFIZER VACCINE 00:00:00 [facility] SARS-COV-2 COVID-19 2020-11-25 Completed [facility] PFIZER VACCINE 00:00:00 [facility] SARS-COV-2 COVID-19 2020-11-25 Completed [facility] PFIZER VACCINE 00:00:00 [facility] SARS-COV-2 COVID-19 2020-11-25 Completed [facility] PFIZER VACCINE 00:00:00 [facility] SARS-COV-2 COVID-19 2020-11-25 Completed [facility] PFIZER VACCINE 00:00:00 [facility] SARS-COV-2 COVID-19 2020-11-25 Completed [facility] PFIZER VACCINE 00:00:00 [facility] SARS-COV-2 COVID-19 2020-11-25 Completed [facility] PFIZER VACCINE 00:00:00 [facility] SARS-COV-2 COVID-19 2020-11-25 Completed [facility] PFIZER VACCINE 00:00:00 [facility] SARS-COV-2 COVID-19 2020-11-25 Completed [facility] PFIZER VACCINE 00:00:00 [facility] SARS-COV-2 COVID-19 2020-11-25 Completed [facility] PFIZER VACCINE 00:00:00 [facility] SARS-COV-2 COVID-19 2020-11-25 Completed [facility] PFIZER VACCINE 00:00:00 [facility] SARS-COV-2 COVID-19 2020-11-25 Completed [facility] PFIZER VACCINE 00:00:00 [facility] SARS-COV-2 COVID-19 2020-11-25 Completed [facility] PFIZER VACCINE 00:00:00 [facility] SARS-COV-2 COVID-19 2020-11-25 Completed [facility] PFIZER VACCINE 00:00:00 [facility] SARS-COV-2 COVID-19 2020-11-25 Completed [facility] PFIZER VACCINE 00:00:00 [facility] SARS-COV-2 COVID-19 2020-11-25 Completed [facility] PFIZER VACCINE 00:00:00 [facility] SARS-COV-2 COVID-19 2020-11-25 Completed [facility] PFIZER VACCINE 00:00:00 [facility] SARS-COV-2 COVID-19 2020-11-25 Completed [facility] PFIZER VACCINE 00:00:00 [facility] SARS-COV-2 COVID-19 2020-11-25 Completed [facility] PFIZER VACCINE 00:00:00 [facility] SARS-COV-2 COVID-19 2020-11-25 Completed [facility] PFIZER VACCINE 00:00:00 [facility] SARS-COV-2 COVID-19 2020-11-25 Completed [facility] PFIZER VACCINE 00:00:00 [facility] SARS-COV-2 COVID-19 2020-11-25 Completed [facility] PFIZER VACCINE 00:00:00 [facility] SARS-COV-2 COVID-19 2020-11-25 Completed [facility] PFIZER VACCINE 00:00:00 [facility] SARS-COV-2 COVID-19 2020-11-25 Completed [facility] PFIZER VACCINE 00:00:00 [facility] SARS-COV-2 COVID-19 2020-11-25 Completed [facility] PFIZER VACCINE 00:00:00 [facility] SARS-COV-2 COVID-19 2020-11-25 Completed [facility] PFIZER VACCINE 00:00:00 [facility] SARS-COV-2 COVID-19 2020-11-25 Completed [facility] PFIZER VACCINE 00:00:00 [facility] SARS-COV-2 COVID-19 2020-11-25 Completed [facility] PFIZER VACCINE 00:00:00 [facility] SARS-COV-2 COVID-19 2020-11-25 Completed [facility] PFIZER VACCINE 00:00:00 [facility] SARS-COV-2 COVID-19 2020-11-25 Completed [facility] PFIZER VACCINE 00:00:00 [facility] SARS-COV-2 COVID-19 2020-11-25 Completed [facility] PFIZER VACCINE 00:00:00 [facility] SARS-COV-2 COVID-19 2020-11-25 Completed [facility] PFIZER VACCINE 00:00:00 [facility] SARS-COV-2 COVID-19 2020-11-25 Completed [facility] PFIZER VACCINE 00:00:00 [facility] SARS-COV-2 COVID-19 2020-11-25 Completed [facility] PFIZER VACCINE 00:00:00 [facility] SARS-COV-2 COVID-19 2020-11-25 Completed [facility] PFIZER VACCINE 00:00:00 [facility] SARS-COV-2 COVID-19 2020-11-25 Completed [facility] PFIZER VACCINE 00:00:00 [facility] SARS-COV-2 COVID-19 2020-11-25 Completed [facility] PFIZER VACCINE 00:00:00 [facility] SARS-COV-2 COVID-19 2020-11-25 Completed [facility] PFIZER VACCINE 00:00:00 [facility] SARS-COV-2 COVID-19 2020-11-25 Completed [facility] PFIZER VACCINE 00:00:00 [facility] SARS-COV-2 COVID-19 2020-11-25 Completed [facility] PFIZER VACCINE 00:00:00 [facility] SARS-COV-2 COVID-19 2020-11-25 Completed [facility] PFIZER VACCINE 00:00:00 [facility] SARS-COV-2 COVID-19 2020-11-25 Completed [facility] PFIZER VACCINE 00:00:00 [facility] SARS-COV-2 COVID-19 2020-11-25 Completed [facility] PFIZER VACCINE 00:00:00 [facility] SARS-COV-2 COVID-19 2020-11-25 Completed [facility] PFIZER VACCINE 00:00:00 [facility] SARS-COV-2 COVID-19 2020-11-25 Completed [facility] PFIZER VACCINE 00:00:00 [facility] SARS-COV-2 COVID-19 2020-11-25 Completed [facility] PFIZER VACCINE 00:00:00 [facility] SARS-COV-2 COVID-19 2020-11-25 Completed [facility] PFIZER VACCINE 00:00:00 [facility] SARS-COV-2 COVID-19 2020-11-25 Completed [facility] PFIZER VACCINE 00:00:00 [facility] SARS-COV-2 COVID-19 2020-11-25 Completed [facility] PFIZER VACCINE 00:00:00 [facility] SARS-COV-2 COVID-19 2020-11-25 Completed [facility] PFIZER VACCINE 00:00:00 [facility] SARS-COV-2 COVID-19 2020-11-25 Completed [facility] PFIZER VACCINE 00:00:00 [facility] SARS-COV-2 COVID-19 2020-11-25 Completed [facility] PFIZER VACCINE 00:00:00 [facility] SARS-COV-2 COVID-19 2020-11-25 Completed [facility] PFIZER VACCINE 00:00:00 [facility] SARS-COV-2 COVID-19 2020-11-25 Completed [facility] PFIZER VACCINE 00:00:00 [facility] SARS-COV-2 COVID-19 2020-11-25 Completed [facility] PFIZER VACCINE 00:00:00 [facility] SARS-COV-2 COVID-19 2020-11-25 Completed [facility] PFIZER VACCINE 00:00:00 [facility] SARS-COV-2 COVID-19 2020-11-25 Completed [facility] PFIZER VACCINE 00:00:00 [facility] SARS-COV-2 COVID-19 2020-11-25 Completed [facility] PFIZER VACCINE 00:00:00 [facility] SARS-COV-2 COVID-19 2020-11-25 Completed [facility] PFIZER VACCINE 00:00:00 [facility] SARS-COV-2 COVID-19 2020-11-25 Completed [facility] PFIZER VACCINE 00:00:00 [facility] SARS-COV-2 COVID-19 2020-11-25 Completed [facility] PFIZER VACCINE 00:00:00 [facility] SARS-COV-2 COVID-19 2020-11-25 Completed [facility] PFIZER VACCINE 00:00:00 [facility] SARS-COV-2 COVID-19 2020-11-25 Completed [facility] PFIZER VACCINE 00:00:00 [facility] SARS-COV-2 COVID-19 2020-11-25 Completed [facility] PFIZER VACCINE 00:00:00 [facility] SARS-COV-2 COVID-19 2020-11-25 Completed [facility] PFIZER VACCINE 00:00:00 [facility] SARS-COV-2 COVID-19 2020-11-25 Completed [facility] PFIZER VACCINE 00:00:00 [facility] SARS-COV-2 COVID-19 2020-11-25 Completed [facility] PFIZER VACCINE 00:00:00 [facility] SARS-COV-2 COVID-19 2020-11-25 Completed [facility] PFIZER VACCINE 00:00:00 [facility] SARS-COV-2 COVID-19 2020-11-25 Completed [facility] PFIZER VACCINE 00:00:00 [facility] SARS-COV-2 COVID-19 2020-11-25 Completed [facility] PFIZER VACCINE 00:00:00 [facility] SARS-COV-2 COVID-19 2020-11-25 Completed [facility] PFIZER VACCINE 00:00:00 [facility] SARS-COV-2 COVID-19 2020-11-25 Completed [facility] PFIZER VACCINE 00:00:00 [facility] SARS-COV-2 COVID-19 2020-11-25 Completed [facility] PFIZER VACCINE 00:00:00 [facility] SARS-COV-2 COVID-19 2020-11-25 Completed [facility] PFIZER VACCINE 00:00:00 [facility] SARS-COV-2 COVID-19 2020-11-25 Completed [facility] PFIZER VACCINE 00:00:00 [facility] SARS-COV-2 COVID-19 2020-11-25 Completed [facility] PFIZER VACCINE 00:00:00 [facility] SARS-COV-2 COVID-19 2020-11-25 Completed [facility] PFIZER VACCINE 00:00:00 [facility] SARS-COV-2 COVID-19 2020-11-25 Completed [facility] PFIZER VACCINE 00:00:00 [facility] SARS-COV-2 COVID-19 2020-11-25 Completed [facility] PFIZER VACCINE 00:00:00 [facility] SARS-COV-2 COVID-19 2020-11-25 Completed [facility] PFIZER VACCINE 00:00:00 [facility] SARS-COV-2 COVID-19 2020-11-25 Completed [facility] PFIZER VACCINE 00:00:00 [facility] SARS-COV-2 COVID-19 2020-11-25 Completed [facility] PFIZER VACCINE 00:00:00 [facility] SARS-COV-2 COVID-19 2020-11-25 Completed [facility] PFIZER VACCINE 00:00:00 [facility] SARS-COV-2 COVID-19 2020-11-25 Completed [facility] PFIZER VACCINE 00:00:00 [facility] SARS-COV-2 COVID-19 2020-11-25 Completed [facility] PFIZER VACCINE 00:00:00 [facility] SARS-COV-2 COVID-19 2020-11-25 Completed [facility] PFIZER VACCINE 00:00:00 [facility] Pneumococcal 2020-02-[address] [facility] Conjugate (Prevnar) 00:00:00 [facility] INFLUENZA QIV 2020-02-[address] [facility] ADJUVANTED PF IM 00:00:[address] [facility] ([id number]) Pneumococcal 2020-02-[address] [facility] (Prevnar) [facility] INFLUENZA QIV 2020-02-[address] [facility]JUV[facility] IM 00:00:[address] [facility] ([id number]) Pneumococcal 2020-02-[address] [facility] Conjugate (Prevnar) 00:00:00 [facility] INFLUENZA QIV 2020-02-[address] [facility] ADJUVANTED PF IM 00:00:[address] [facility] ([facility]) Pneumococcal 2020-02-[address] [facility] Conjugate (Prevnar) 00:00:00 [facility] INFLUENZA QIV 2020-02-[address] [facility]JUVANTED PF IM 00:00:[address] [facility] ([facility]) Pneumococcal 2020-02-[address] [facility] Conjugate (Prevnar) 00:00:00 [facility] INFLUENZA QIV 2020-02-[address] [facility]JUVANTED PF IM 00:00:[address] [facility] ([facility]) Pneumococcal 2020-02-[address] [facility] Conjugate (Prevnar) 00:00:00 [facility] INFLUENZA QIV 2020-02-[address] [facility] ADJUVANTED PF IM 00:00:[address] [facility] ([facility]) Pneumococcal 2020-02-[address] [facility] Conjugate (Prevnar) 00:00:00 [facility] INFLUENZA QIV 2020-02-[address] [facility] ADJUVANTED PF IM 00:00:[address] [facility] ([facility]) Pneumococcal 2020-02-[address] [facility] Conjugate (Prevnar) 00:00:00 [facility] 13-Valent INFLUENZA QIV 2020-02-[address] [facility] ADJUVANTED PF IM 00:00:[address] [facility] ([facility]) Pneumococcal 2020-02-[address] [facility] Conjugate (Prevnar) 00:00:00 [facility] 13-Valent INFLUENZA QIV 2020-02-[address] [facility] ADJUVANTED PF IM 00:00:[address] [facility] ([facility]) Pneumococcal 2020-02-[address] [facility] Conjugate (Prevnar) 00:00:00 [facility] 13-Valent INFLUENZA QIV 2020-02-[address] [facility] ADJUVANTED PF IM 00:00:[address] [facility] ([facility]) Pneumococcal 2020-02-[address] [facility] Conjugate (Prevnar) 00:00:00 [facility] 13-Valent INFLUENZA QIV 2020-02-[address] [facility] ADJUVANTED PF IM 00:00:[address] [facility] ([id number]) Pneumococcal 2020-02-[address] [facility] Conjugate (Prevnar) 00:00:00 [facility] 13-Valent INFLUENZA QIV 2020-02-[address] [facility] ADJUVANTED PF IM 00:00:[address] [facility] ([facility]) Pneumococcal 2020-02-[address] [facility] Conjugate (Prevnar) 00:00:00 [facility] 13-Valent INFLUENZA QIV 2020-02-[address] [facility] ADJUVANTED PF IM 00:00:[address] [facility] ([facility]) Pneumococcal 2020-02-[address] [facility] Conjugate (Prevnar) 00:00:00 [facility] 13-Valent INFLUENZA QIV 2020-02-[address] [facility] ADJUVANTED PF IM 00:00:[address] [facility] ([facility]) Pneumococcal 2020-02-[address] [facility] Conjugate (Prevnar) 00:00:00 [facility] 13-Valent INFLUENZA QIV 2020-02-[address] [facility] ADJUVANTED PF IM 00:00:[address] [facility] ([facility]) Pneumococcal 2020-02-[address] [facility] Conjugate (Prevnar) 00:00:00 [facility] 13-Valent INFLUENZA QIV 2020-02-[address] [facility] ADJUVANTED PF IM 00:00:[address] [facility] ([facility]) Pneumococcal 13 2020-02-27 Completed [facility] Conjugate, PCV13 00:00:00 [facility] dical (Prevnar 13) Branch Influenza High Dose 2020-02-27 Completed [facility] 00:00:00 [facility] Pneumococcal 13 2020-02-27 Completed [facility] Conjugate, PCV13 00:00:00 [facility] dical (Prevnar 13) Branch Influenza High Dose 2020-02-27 Completed [facility] 00:00:00 [facility] Pneumococcal 13 2020-02-27 Completed [facility] Conjugate, PCV13 00:00:00 [place] [facility] (Prevnar 13) Branch Influenza High Dose 2020-02-27 Completed [facility] 00:00:00 [facility] Pneumococcal 13 2020-02-27 Completed [facility] Conjugate, PCV13 00:00:00 [place] [facility] (Prevnar 13) Branch Influenza High Dose 2020-02-27 Completed [facility] 00:00:00 [facility] Pneumococcal 13 2020-02-27 Completed [facility] Conjugate, PCV13 00:00:00 [place] [facility] (Prevnar 13) Branch Influenza High Dose 2020-02-27 Completed [facility] 00:00:00 [facility] Pneumococcal 13 2020-02-27 Completed [facility] Conjugate, PCV13 00:00:00 [place] [facility] (Prevnar 13) Branch Influenza High Dose 2020-02-27 Completed [facility] 00:00:00 [facility] Pneumococcal 13 2020-02-27 Completed [facility] Conjugate, PCV13 00:00:00 [place] [facility] (Prevnar 13) Branch Influenza High Dose 2020-02-27 Completed [facility] 00:00:00 [facility] Pneumococcal 13 2020-02-27 Completed [facility] Conjugate, PCV13 00:00:00 [place] [facility] (Prevnar 13) Branch Influenza High Dose 2020-02-27 Completed [facility] 00:00:00 [facility] Pneumococcal 13 2020-02-27 Completed [facility] Conjugate, PCV13 00:00:00 [place] [facility] (Prevnar 13) Branch Influenza High Dose 2020-02-27 Completed [facility] 00:00:00 [facility] Pneumococcal 13 2020-02-27 Completed [facility] Conjugate, PCV13 00:00:00 [place] [facility] (Prevnar 13) Branch Influenza High Dose 2020-02-27 Completed [facility] 00:00:00 [facility] Pneumococcal 13 2020-02-27 Completed [facility] Conjugate, PCV13 00:00:00 [place] [facility] (Prevnar 13) Branch Influenza High Dose 2020-02-27 Completed [facility] 00:00:00 [facility] Pneumococcal 13 2020-02-27 Completed [facility] Conjugate, PCV13 00:00:00 [place] [facility] (Prevnar 13) Branch Influenza High Dose 2020-02-27 Completed [facility] 00:00:00 [facility] Pneumococcal 13 2020-02-27 Completed [facility] Conjugate, PCV13 00:00:00 [place] [facility] (Prevnar 13) Branch Influenza High Dose 2020-02-27 Completed [facility] 00:00:00 [facility] Pneumococcal 13 2020-02-27 Completed [facility] Conjugate, PCV13 00:00:00 [facility] dical (Prevnar 13) Branch Influenza High Dose 2020-02-27 Completed [facility] of 00:00:00 [facility] Pneumococcal 13 2020-02-27 Completed [facility] Conjugate, PCV13 00:00:00 [facility] dical (Prevnar 13) Branch Influenza High Dose 2020-02-27 Completed [facility] 00:00:00 [facility] Pneumococcal 13 2020-02-27 Completed [facility] Conjugate, PCV13 00:00:00 [facility] dical (Prevnar 13) Branch Influenza High Dose 2020-02-27 Completed [facility] 00:00:00 [facility] Pneumococcal 13 2020-02-27 Completed [facility] Conjugate, PCV13 00:00:00 [facility] dical (Prevnar 13) Branch Influenza High Dose 2020-02-27 Completed [facility] 00:00:00 [facility] Pneumococcal 13 2020-02-27 Completed [facility] Conjugate, PCV13 00:00:00 [facility] dical (Prevnar 13) Branch Influenza High Dose 2020-02-27 Completed [facility] 00:00:00 [facility] Pneumococcal 13 2020-02-27 Completed [facility] Conjugate, PCV13 00:00:00 [facility] dical (Prevnar 13) Branch Influenza High Dose 2020-02-27 Completed [facility] 00:00:00 [facility] Pneumococcal 13 2020-02-27 Completed [facility] Conjugate, PCV13 00:00:00 [facility] dical (Prevnar 13) Branch Influenza High Dose 2020-02-27 Completed [facility] 00:00:00 [facility] Pneumococcal 13 2020-02-27 Completed [facility] Conjugate, PCV13 00:00:00 [facility] dical (Prevnar 13) Branch Influenza High Dose 2020-02-27 Completed [facility] 00:00:00 [facility] Pneumococcal 13 2020-02-27 Completed [facility] Conjugate, PCV13 00:00:00 [facility] dical (Prevnar 13) Branch Influenza High Dose 2020-02-27 Completed [facility] 00:00:00 [facility] Pneumococcal 13 2020-02-27 Completed [facility] Conjugate, PCV13 00:00:00 [place] [facility] (Prevnar 13) Branch Influenza High Dose 2020-02-27 Completed [facility] 00:00:00 [facility] Pneumococcal 13 2020-02-27 Completed [facility] Conjugate, PCV13 00:00:00 [place] [facility] (Prevnar 13) Branch Influenza High Dose 2020-02-27 Completed [facility] 00:00:00 [facility] Pneumococcal 13 2020-02-27 Completed [facility] Conjugate, PCV13 00:00:00 [place] [facility] (Prevnar 13) Branch Influenza High Dose 2020-02-27 Completed [facility] 00:00:00 [facility] Pneumococcal 13 2020-02-27 Completed [facility] Conjugate, PCV13 00:00:00 [place] [facility] (Prevnar 13) Branch Influenza High Dose 2020-02-27 Completed [facility] 00:00:00 [facility] Pneumococcal 13 2020-02-27 Completed [facility] Conjugate, PCV13 00:00:00 [place] [facility] (Prevnar 13) Branch Influenza High Dose 2020-02-27 Completed [facility] 00:00:00 [facility] Pneumococcal 13 2020-02-27 Completed [facility] Conjugate, PCV13 00:00:00 [facility] dical (Prevnar 13) Branch Influenza High Dose 2020-02-27 Completed [facility] 00:00:00 [facility] Pneumococcal 13 2020-02-27 Completed [facility] Conjugate, PCV13 00:00:00 [place] [facility] (Prevnar 13) Branch Influenza High Dose 2020-02-27 Completed [facility] 00:00:00 [facility] Pneumococcal 13 2020-02-27 Completed [facility] Conjugate, PCV13 00:00:00 [place] [facility] (Prevnar 13) Branch Influenza High Dose 2020-02-27 Completed [facility] 00:00:00 [facility] Pneumococcal 13 2020-02-27 Completed [facility] Conjugate, PCV13 00:00:00 [place] [facility] (Prevnar 13) Branch Influenza High Dose 2020-02-27 Completed [facility] 00:00:00 [facility] Pneumococcal 13 2020-02-27 Completed [facility] Conjugate, PCV13 00:00:00 [facility] dical (Prevnar 13) Branch Influenza High Dose 2020-02-27 Completed [facility] 00:00:00 [facility] Pneumococcal 13 2020-02-27 Completed [facility] Conjugate, PCV13 00:00:00 [place] [facility] (Prevnar 13) Branch Influenza High Dose 2020-02-27 Completed [facility] 00:00:00 [facility] Pneumococcal 13 2020-02-27 Completed [facility] Conjugate, PCV13 00:00:00 [place] [facility] (Prevnar 13) Branch Influenza High Dose 2020-02-27 Completed [facility] 00:00:00 [facility] Pneumococcal 13 2020-02-27 Completed [facility] Conjugate, PCV13 00:00:00 [place] [facility] (Prevnar 13) Branch Influenza High Dose 2020-02-27 Completed [facility] 00:00:00 [facility] Pneumococcal 13 2020-02-27 Completed [facility] Conjugate, PCV13 00:00:00 [place] [facility] (Prevnar 13) Branch Influenza High Dose 2020-02-27 Completed [facility] 00:00:00 [facility] Pneumococcal 13 2020-02-27 Completed [facility] Conjugate, PCV13 00:00:00 [facility] dical (Prevnar 13) Branch Influenza High Dose 2020-02-27 Completed [facility] 00:00:00 [facility] Pneumococcal 13 2020-02-27 Completed [facility] Conjugate, PCV13 00:00:00 [place] [facility] (Prevnar 13) Branch Influenza High Dose 2020-02-27 Completed [facility] 00:00:00 [facility] Pneumococcal 13 2020-02-27 Completed [facility] Conjugate, PCV13 00:00:00 [facility] dical (Prevnar 13) Branch Influenza High Dose 2020-02-27 Completed [facility] 00:00:00 [facility] Pneumococcal 13 2020-02-27 Completed [facility] Conjugate, PCV13 00:00:00 [place] [facility] (Prevnar 13) Branch Influenza High Dose 2020-02-27 Completed [facility] 00:00:00 [facility] Pneumococcal 13 2020-02-27 Completed [facility] Conjugate, PCV13 00:00:00 [place] [facility] (Prevnar 13) Branch Influenza High Dose 2020-02-27 Completed [facility] 00:00:00 [facility] Pneumococcal 13 2020-02-27 Completed [facility] Conjugate, PCV13 00:00:00 [place] [facility] (Prevnar 13) Branch Influenza High Dose 2020-02-27 Completed [facility] 00:00:00 [facility] Pneumococcal 13 2020-02-27 Completed [facility] Conjugate, PCV13 00:00:00 [place] [facility] (Prevnar 13) Branch Influenza High Dose 2020-02-27 Completed [facility] 00:00:00 [facility] Pneumococcal 13 2020-02-27 Completed [facility] Conjugate, PCV13 00:00:00 [place] [facility] (Prevnar 13) Branch Influenza High Dose 2020-02-27 Completed [facility] 00:00:00 [facility] Pneumococcal 13 2020-02-27 Completed [facility] Conjugate, PCV13 00:00:00 [place] [facility] (Prevnar 13) Branch Influenza High Dose 2020-02-27 Completed [facility] 00:00:00 [facility] Pneumococcal 13 2020-02-27 Completed [facility] Conjugate, PCV13 00:00:00 [place] [facility] (Prevnar 13) Branch Influenza High Dose 2020-02-27 Completed [facility] 00:00:00 [facility] Pneumococcal 13 2020-02-27 Completed [facility] Conjugate, PCV13 00:00:00 [place] [facility] (Prevnar 13) Branch Influenza High Dose 2020-02-27 Completed [facility] 00:00:00 [facility] Pneumococcal 13 2020-02-27 Completed [facility] Conjugate, PCV13 00:00:00 [place] [facility] (Prevnar 13) Branch Influenza High Dose 2020-02-27 Completed [facility] 00:00:00 [facility] Pneumococcal 13 2020-02-27 Completed [facility] Conjugate, PCV13 00:00:00 [place] [facility] (Prevnar 13) Branch Influenza High Dose 2020-02-27 Completed [facility] 00:00:00 [facility] Pneumococcal 13 2020-02-27 Completed [facility] Conjugate, PCV13 00:00:00 [place] [facility] (Prevnar 13) Branch Influenza High Dose 2020-02-27 Completed [facility] 00:00:00 [facility] Pneumococcal 13 2020-02-27 Completed [facility] Conjugate, PCV13 00:00:00 [place] [facility] (Prevnar 13) Branch Influenza High Dose 2020-02-27 Completed [facility] 00:00:00 [facility] Pneumococcal 13 2020-02-27 Completed [facility] Conjugate, PCV13 00:00:00 [place] [facility] (Prevnar 13) Branch Influenza High Dose 2020-02-27 Completed [facility] 00:00:00 [facility] Pneumococcal 13 2020-02-27 Completed [facility] Conjugate, PCV13 00:00:00 [place] [facility] (Prevnar 13) Branch Influenza High Dose 2020-02-27 Completed [facility] 00:00:00 [facility] Pneumococcal 13 2020-02-27 Completed [facility] Conjugate, PCV13 00:00:00 [place] [facility] (Prevnar 13) Branch Influenza High Dose 2020-02-27 Completed [facility] 00:00:00 [facility] Pneumococcal 13 2020-02-27 Completed [facility] Conjugate, PCV13 00:00:00 [place] [facility] (Prevnar 13) Branch Influenza High Dose 2020-02-27 Completed [facility] 00:00:00 [facility] Pneumococcal 13 2020-02-27 Completed [facility] Conjugate, PCV13 00:00:00 [place] [facility] (Prevnar 13) Branch Influenza High Dose 2020-02-27 Completed [facility] 00:00:00 [facility] Pneumococcal 13 2020-02-27 Completed [facility] Conjugate, PCV13 00:00:00 [place] [facility] (Prevnar 13) Branch Influenza High Dose 2020-02-27 Completed [facility] 00:00:00 [facility] Pneumococcal 13 2020-02-27 Completed [facility] Conjugate, PCV13 00:00:00 [place] [facility] (Prevnar 13) Branch Influenza High Dose 2020-02-27 Completed [facility] 00:00:00 [facility] Pneumococcal 13 2020-02-27 Completed [facility] Conjugate, PCV13 00:00:00 [place] [facility] (Prevnar 13) Branch Influenza High Dose 2020-02-27 Completed [facility] 00:00:00 [facility] Pneumococcal 13 2020-02-27 Completed [facility] Conjugate, PCV13 00:00:00 [place] [facility] (Prevnar 13) Branch Influenza High Dose 2020-02-27 Completed [facility] 00:00:00 [facility] Pneumococcal 13 2020-02-27 Completed [facility] Conjugate, PCV13 00:00:00 [place] [facility] (Prevnar 13) Branch Influenza High Dose 2020-02-27 Completed [facility] 00:00:00 [facility] Pneumococcal 13 2020-02-27 Completed [facility] Conjugate, PCV13 00:00:00 [place] [facility] (Prevnar 13) Branch Influenza High Dose 2020-02-27 Completed [facility] 00:00:00 [facility] Pneumococcal 13 2020-02-27 Completed [facility] Conjugate, PCV13 00:00:00 [place] [facility] (Prevnar 13) Branch Influenza High Dose 2020-02-27 Completed [facility] 00:00:00 [facility] Pneumococcal 13 2020-02-27 Completed [facility] Conjugate, PCV13 00:00:00 [place] [facility] (Prevnar 13) Branch Influenza High Dose 2020-02-27 Completed [facility] 00:00:00 [facility] Pneumococcal 13 2020-02-27 Completed [facility] Conjugate, PCV13 00:00:00 [place] [facility] (Prevnar 13) Branch Influenza High Dose 2020-02-27 Completed [facility] 00:00:00 [facility] Pneumococcal 13 2020-02-27 Completed [facility] Conjugate, PCV13 00:00:00 [place] [facility] (Prevnar 13) Branch Influenza High Dose 2020-02-27 Completed [facility] 00:00:00 [facility] Pneumococcal 13 2020-02-27 Completed [facility] Conjugate, PCV13 00:00:00 [place] [facility] (Prevnar 13) Branch Influenza High Dose 2020-02-27 Completed [facility] 00:00:00 [facility] Pneumococcal 13 2020-02-27 Completed [facility] Conjugate, PCV13 00:00:00 [place] [facility] (Prevnar 13) Branch Influenza High Dose 2020-02-27 Completed [facility] 00:00:00 [facility] Pneumococcal 13 2020-02-27 Completed [facility] Conjugate, PCV13 00:00:00 [place] [facility] (Prevnar 13) Branch Influenza High Dose 2020-02-27 Completed [facility] 00:00:00 [facility] Pneumococcal 13 2020-02-27 Completed [facility] Conjugate, PCV13 00:00:00 [place] [facility] (Prevnar 13) Branch Influenza High Dose 2020-02-27 Completed [facility] 00:00:00 [facility] Pneumococcal 13 2020-02-27 Completed [facility] Conjugate, PCV13 00:00:00 [place] [facility] (Prevnar 13) Branch Influenza High Dose 2020-02-27 Completed [facility] 00:00:00 [facility] Pneumococcal 13 2020-02-27 Completed [facility] Conjugate, PCV13 00:00:00 [place] [facility] (Prevnar 13) Branch Influenza High Dose 2020-02-27 Completed [facility] 00:00:00 [facility] Pneumococcal 13 2020-02-27 Completed [facility] Conjugate, PCV13 00:00:00 [place] [facility] (Prevnar 13) Branch Influenza High Dose 2020-02-27 Completed [facility] 00:00:00 [facility] Pneumococcal 13 2020-02-27 Completed [facility] Conjugate, PCV13 00:00:00 [place] [facility] (Prevnar 13) Branch Influenza High Dose 2020-02-27 Completed [facility] 00:00:00 [facility] Pneumococcal 13 2020-02-27 Completed [facility] Conjugate, PCV13 00:00:00 [place] [facility] (Prevnar 13) Branch Influenza High Dose 2020-02-27 Completed [facility] 00:00:00 [facility] Pneumococcal 13 2020-02-27 Completed [facility] Conjugate, PCV13 00:00:00 [place] [facility] (Prevnar 13) Branch Influenza High Dose 2020-02-27 Completed [facility] 00:00:00 [facility] Pneumococcal 13 2020-02-27 Completed [facility] Conjugate, PCV13 00:00:00 [place] [facility] (Prevnar 13) Branch Influenza High Dose 2020-02-27 Completed [facility] 00:00:00 [facility] Pneumococcal 13 2020-02-27 Completed [facility] Conjugate, PCV13 00:00:00 [place] [facility] (Prevnar 13) Branch Influenza High Dose 2020-02-27 Completed [facility] 00:00:00 [facility] Pneumococcal 13 2020-02-27 Completed [facility] Conjugate, PCV13 00:00:00 [place] [facility] (Prevnar 13) Branch Influenza High Dose 2020-02-27 Completed [facility] 00:00:00 [facility] Pneumococcal 13 2020-02-27 Completed [facility] Conjugate, PCV13 00:00:00 [place] [facility] (Prevnar 13) Branch Influenza High Dose 2020-02-27 Completed [facility] 00:00:00 [facility] Pneumococcal 13 2020-02-27 Completed [facility] Conjugate, PCV13 00:00:00 [place] [facility] (Prevnar 13) Branch Influenza High Dose 2020-02-27 Completed [facility] 00:00:00 [facility] Pneumococcal 13 2020-02-27 Completed [facility] Conjugate, PCV13 00:00:00 [place] [facility] (Prevnar 13) Branch Influenza High Dose 2020-02-27 Completed [facility] 00:00:00 [facility] Pneumococcal 13 2020-02-27 Completed [facility] Conjugate, PCV13 00:00:00 [place] [facility] (Prevnar 13) Branch Influenza High Dose 2020-02-27 Completed [facility] 00:00:00 [facility] Pneumococcal 13 2020-02-27 Completed [facility] Conjugate, PCV13 00:00:00 [place] [facility] (Prevnar 13) Branch Influenza High Dose 2020-02-27 Completed [facility] 00:00:00 [facility] Pneumococcal 13 2020-02-27 Completed [facility] Conjugate, PCV13 00:00:00 [place] [facility] (Prevnar 13) Branch Influenza High Dose 2020-02-27 Completed [facility] 00:00:00 [facility] Pneumococcal 13 2020-02-27 Completed [facility] Conjugate, PCV13 00:00:00 [place] [facility] (Prevnar 13) Branch Influenza High Dose 2020-02-27 Completed [facility] 00:00:00 [facility] Pneumococcal 13 2020-02-27 Completed [facility] Conjugate, PCV13 00:00:00 [place] [facility] (Prevnar 13) Branch Influenza High Dose 2020-02-27 Completed [facility] 00:00:00 [facility] Pneumococcal 13 2020-02-27 Completed [facility] Conjugate, PCV13 00:00:00 [place] [facility] (Prevnar 13) Branch Influenza High Dose 2020-02-27 Completed [facility] 00:00:00 [facility] Pneumococcal 13 2020-02-27 Completed [facility] Conjugate, PCV13 00:00:00 [place] [facility] (Prevnar 13) Branch Influenza High Dose 2020-02-27 Completed [facility] 00:00:00 [facility] Pneumococcal 13 2020-02-27 Completed [facility] Conjugate, PCV13 00:00:00 [place] [facility] (Prevnar 13) Branch Influenza High Dose 2020-02-27 Completed [facility] 00:00:00 [facility] Pneumococcal 13 2020-02-27 Completed [facility] Conjugate, PCV13 00:00:00 [place] [facility] (Prevnar 13) Branch Influenza High Dose 2020-02-27 Completed [facility] 00:00:00 [facility] Pneumococcal 13 2020-02-27 Completed [facility] Conjugate, PCV13 00:00:00 [place] [facility] (Prevnar 13) Branch Influenza High Dose 2020-02-27 Completed [facility] 00:00:00 [facility] Pneumococcal 13 2020-02-27 Completed [facility] Conjugate, PCV13 00:00:00 [place] [facility] (Prevnar 13) Branch Influenza High Dose 2020-02-27 Completed [facility] 00:00:00 [facility] Pneumococcal 13 2020-02-27 Completed [facility] Conjugate, PCV13 00:00:00 [place] [facility] (Prevnar 13) Branch Influenza High Dose 2020-02-27 Completed [facility] 00:00:00 [facility] Pneumococcal 13 2020-02-27 Completed [facility] Conjugate, PCV13 00:00:00 [place] [facility] (Prevnar 13) Branch Influenza High Dose 2020-02-27 Completed [facility] 00:00:00 [facility] Pneumococcal 13 2020-02-27 Completed [facility] Conjugate, PCV13 00:00:00 [place] [facility] (Prevnar 13) Branch Influenza High Dose 2020-02-27 Completed [facility] 00:00:00 [facility] Pneumococcal 13 2020-02-27 Completed [facility] Conjugate, PCV13 00:00:00 [place] [facility] (Prevnar 13) Branch Influenza High Dose 2020-02-27 Completed [facility] 00:00:00 [facility] Pneumococcal 13 2020-02-27 Completed [facility] Conjugate, PCV13 00:00:00 [place] [facility] (Prevnar 13) Branch Influenza High Dose 2020-02-27 Completed [facility] 00:00:00 [facility] Pneumococcal 13 2020-02-27 Completed [facility] Conjugate, PCV13 00:00:00 [place] [facility] (Prevnar 13) Branch Influenza High Dose 2020-02-27 Completed [facility] 00:00:00 [facility] Pneumococcal 13 2020-02-27 Completed [facility] Conjugate, PCV13 00:00:00 [place] [facility] dical (Prevnar 13) Branch Influenza High Dose 2020-02-27 Completed [facility] 00:00:00 [facility] Pneumococcal 13 2020-02-27 Completed [facility] Conjugate, PCV13 00:00:00 [place] [facility] (Prevnar 13) Branch Influenza High Dose 2020-02-27 Completed [facility] 00:00:00 [facility] Pneumococcal 13 2020-02-27 Completed [facility] Conjugate, PCV13 00:00:00 [place] [facility] (Prevnar 13) Branch Influenza High Dose 2020-02-27 Completed [facility] 00:00:00 [facility] Pneumococcal 13 2020-02-27 Completed [facility] Conjugate, PCV13 00:00:00 [place] [facility] (Prevnar 13) Branch Influenza High Dose 2020-02-27 Completed [facility] 00:00:00 [facility] Pneumococcal 13 2020-02-27 Completed [facility] Conjugate, PCV13 00:00:00 [facility] dical (Prevnar 13) Branch Influenza High Dose 2020-02-27 Completed [facility] of 00:00:00 [facility] Pneumococcal 13 2020-02-27 Completed [facility] of Conjugate, PCV13 00:00:00 [place] [facility] (Prevnar 13) Branch Influenza High Dose 2020-02-27 Completed [facility] 00:00:00 [facility] Pneumococcal 13 2020-02-27 Completed [facility] Conjugate, PCV13 00:00:00 [place] [facility] (Prevnar 13) Branch Influenza High Dose 2020-02-27 Completed [facility] 00:00:00 [facility] Pneumococcal 13 2020-02-27 Completed [facility] Conjugate, PCV13 00:00:00 [place] [facility] (Prevnar 13) Branch Influenza High Dose 2020-02-27 Completed [facility] 00:00:00 [facility] Pneumococcal 13 2020-02-27 Completed [facility] Conjugate, PCV13 00:00:00 [place] [facility] (Prevnar 13) Branch Influenza High Dose 2020-02-27 Completed [facility] 00:00:00 [facility] Pneumococcal 13 2020-02-27 Completed [facility] of Conjugate, PCV13 00:00:00 [place] [facility] (Prevnar 13) Branch Influenza High Dose 2020-02-27 Completed [facility] 00:00:00 [facility] Pneumococcal 13 2020-02-27 Completed [facility] Conjugate, PCV13 00:00:00 [place] [facility] (Prevnar 13) Branch Influenza High Dose 2020-02-27 Completed [facility] 00:00:00 [facility] Pneumococcal 13 2020-02-27 Completed [facility] Conjugate, PCV13 00:00:00 [place] [facility] (Prevnar 13) Branch Influenza High Dose 2020-02-27 Completed [facility] 00:00:00 [facility] Pneumococcal 13 2020-02-27 Completed [facility] Conjugate, PCV13 00:00:00 [place] [facility] (Prevnar 13) Branch Influenza High Dose 2020-02-27 Completed [facility] 00:00:00 [facility] Pneumococcal 13 2020-02-27 Completed [facility] Conjugate, PCV13 00:00:00 [place] [facility] (Prevnar 13) Branch Influenza High Dose 2020-02-27 Completed [facility] 00:00:00 [facility] Pneumococcal 13 2020-02-27 Completed [facility] Conjugate, PCV13 00:00:00 [place] [facility] (Prevnar 13) Branch Influenza High Dose 2020-02-27 Completed [facility] 00:00:00 [facility] Pneumococcal 13 2020-02-27 Completed [facility] Conjugate, PCV13 00:00:00 [place] [facility] (Prevnar 13) Branch Influenza High Dose 2020-02-27 Completed [facility] 00:00:00 [facility] Pneumococcal 13 2020-02-27 Completed [facility] Conjugate, PCV13 00:00:00 [place] [facility] (Prevnar 13) Branch Influenza High Dose 2020-02-27 Completed [facility] 00:00:00 [facility] Pneumococcal 13 2020-02-27 Completed [facility] Conjugate, PCV13 00:00:00 [place] [facility] (Prevnar 13) Branch Influenza High Dose 2020-02-27 Completed [facility] 00:00:00 [facility] Pneumococcal 13 2020-02-27 Completed [facility] of Conjugate, PCV13 00:00:00 [place] [facility] (Prevnar 13) Branch Influenza High Dose 2020-02-27 Completed [facility] 00:00:00 [facility] Pneumococcal 13 2020-02-27 Completed [facility] of Conjugate, PCV13 00:00:00 [place] [facility] (Prevnar 13) Branch Influenza High Dose 2020-02-27 Completed [facility] 00:00:00 [facility] Pneumococcal 13 2020-02-27 Completed [facility] of Conjugate, PCV13 00:00:00 [place] [facility] (Prevnar 13) Branch Influenza High Dose 2020-02-27 Completed [facility] 00:00:00 [facility] Pneumococcal 13 2020-02-27 Completed [facility] of Conjugate, PCV13 00:00:00 [place] [facility] (Prevnar 13) Branch Influenza High Dose 2020-02-27 Completed [facility] 00:00:00 [facility] Pneumococcal 13 2020-02-27 Completed [facility] of Conjugate, PCV13 00:00:00 [place] [facility] (Prevnar 13) Branch Influenza High Dose 2020-02-27 Completed [facility] 00:00:00 [facility] Pneumococcal 13 2020-02-27 Completed [facility] of Conjugate, PCV13 00:00:00 [place] [facility] (Prevnar 13) Branch Influenza High Dose 2020-02-27 Completed [facility] 00:00:00 [facility] Pneumococcal 13 2020-02-27 Completed [facility] of Conjugate, PCV13 00:00:00 [place] [facility] (Prevnar 13) Branch Influenza High Dose 2020-02-27 Completed [facility] 00:00:00 [facility] Pneumococcal 13 2020-02-27 Completed [facility] of Conjugate, PCV13 00:00:00 [place] [facility] (Prevnar 13) Branch Influenza High Dose 2020-02-27 Completed [facility] 00:00:00 [facility] Pneumococcal 13 2020-02-27 Completed [facility] of Conjugate, PCV13 00:00:00 [place] [facility] (Prevnar 13) Branch Influenza High Dose 2020-02-27 Completed [facility] 00:00:00 [facility] Pneumococcal 13 2020-02-27 Completed [facility] of Conjugate, PCV13 00:00:00 [place] [facility] (Prevnar 13) Branch Influenza High Dose 2020-02-27 Completed [facility] 00:00:00 [facility] Pneumococcal 13 2020-02-27 Completed [facility] of Conjugate, PCV13 00:00:00 [place] [facility] (Prevnar 13) Branch Influenza High Dose 2020-02-27 Completed [facility] 00:00:00 [facility] Pneumococcal 13 2020-02-27 Completed [facility] of Conjugate, PCV13 00:00:00 [place] [facility] (Prevnar 13) Branch Influenza High Dose 2020-02-27 Completed [facility] 00:00:00 [facility] Pneumococcal 13 2020-02-27 Completed [facility] of Conjugate, PCV13 00:00:00 [place] [facility] (Prevnar 13) Branch Influenza High Dose 2020-02-27 Completed [facility] 00:00:00 [facility] Pneumococcal 13 2020-02-27 Completed [facility] of Conjugate, PCV13 00:00:00 [place] [facility] (Prevnar 13) Branch Influenza High Dose 2020-02-27 Completed [facility] 00:00:00 [facility] Pneumococcal 13 2020-02-27 Completed [facility] Conjugate, PCV13 00:00:00 [place] [facility] (Prevnar 13) Branch Influenza High Dose 2020-02-27 Completed [facility] 00:00:00 [facility] Pneumococcal 13 2020-02-27 Completed [facility] of Conjugate, PCV13 00:00:00 [place] [facility] (Prevnar 13) Branch Influenza High Dose 2020-02-27 Completed [facility] 00:00:00 [facility] Pneumococcal 13 2020-02-27 Completed [facility] of Conjugate, PCV13 00:00:00 [place] [facility] (Prevnar 13) Branch Influenza High Dose 2020-02-27 Completed [facility] 00:00:00 [facility] Pneumococcal 13 2020-02-27 Completed [facility] of Conjugate, PCV13 00:00:00 [place] [facility] (Prevnar 13) Branch Influenza High Dose 2020-02-27 Completed [facility] 00:00:00 [facility] Pneumococcal 13 2020-02-27 Completed [facility] of Conjugate, PCV13 00:00:00 [facility] dical (Prevnar 13) Branch Influenza High Dose 2020-02-27 Completed [facility] 00:00:00 [facility] Pneumococcal 13 2020-02-27 Completed [facility] of Conjugate, PCV13 00:00:00 [place] [facility] (Prevnar 13) Branch Influenza High Dose 2020-02-27 Completed [facility] 00:00:00 [facility] Pneumococcal 13 2020-02-27 Completed [facility] of Conjugate, PCV13 00:00:00 [place] [facility] (Prevnar 13) Branch Influenza High Dose 2020-02-27 Completed [facility] 00:00:00 [facility] Pneumococcal 13 2020-02-27 Completed [facility] of Conjugate, PCV13 00:00:00 [place] [facility] (Prevnar 13) Branch Influenza High Dose 2020-02-27 Completed [facility] 00:00:00 [facility] Pneumococcal 13 2020-02-27 Completed [facility] of Conjugate, PCV13 00:00:00 [place] [facility] (Prevnar 13) Branch Influenza High Dose 2020-02-27 Completed [facility] 00:00:00 [facility] Pneumococcal 13 2020-02-27 Completed [facility] of Conjugate, PCV13 00:00:00 [place] [facility] (Prevnar 13) Branch Influenza High Dose 2020-02-27 Completed [facility] 00:00:00 [facility] Pneumococcal 13 2020-02-27 Completed [facility] of Conjugate, PCV13 00:00:00 [place] [facility] (Prevnar 13) Branch Influenza High Dose 2020-02-27 Completed [facility] 00:00:00 [facility] Pneumococcal 13 2020-02-27 Completed [facility] of Conjugate, PCV13 00:00:00 [place] [facility] (Prevnar 13) Branch Influenza High Dose 2020-02-27 Completed [facility] 00:00:00 [facility] Pneumococcal 13 2020-02-27 Completed [facility] of Conjugate, PCV13 00:00:00 [place] [facility] (Prevnar 13) Branch Influenza High Dose 2020-02-27 Completed [facility] 00:00:00 [facility] Pneumococcal 13 2020-02-27 Completed [facility] of Conjugate, PCV13 00:00:00 [place] [facility] (Prevnar 13) Branch Influenza High Dose 2020-02-27 Completed [facility] 00:00:00 [facility] Pneumococcal 13 2020-02-27 Completed [facility] of Conjugate, PCV13 00:00:00 [place] [facility] (Prevnar 13) Branch Influenza High Dose 2020-02-27 Completed [facility] of 00:00:00 [facility] Pneumococcal 13 2020-02-27 Completed [facility] of Conjugate, PCV13 00:00:00 [place] [facility] (Prevnar 13) Branch Influenza High Dose 2020-02-27 Completed [facility] 00:00:00 [facility] Pneumococcal 13 2020-02-27 Completed [facility] of Conjugate, PCV13 00:00:00 [place] [facility] (Prevnar 13) Branch Influenza High Dose 2020-02-27 Completed [facility] 00:00:00 [facility] Pneumococcal 13 2020-02-27 Completed [facility] of Conjugate, PCV13 00:00:00 [place] [facility] (Prevnar 13) Branch Influenza High Dose 2020-02-27 Completed [facility] 00:00:00 [facility] Pneumococcal 13 2020-02-27 Completed [facility] of Conjugate, PCV13 00:00:00 [place] [facility] (Prevnar 13) Branch Influenza High Dose 2020-02-27 Completed [facility] 00:00:00 [facility] Pneumococcal 13 2020-02-27 Completed [facility] of Conjugate, PCV13 00:00:00 [place] [facility] (Prevnar 13) Branch Influenza High Dose 2020-02-27 Completed [facility] 00:00:00 [facility] Pneumococcal 13 2020-02-27 Completed [facility] of Conjugate, PCV13 00:00:00 [place] [facility] (Prevnar 13) Branch Influenza High Dose 2020-02-27 Completed [facility] 00:00:00 [facility] Pneumococcal 13 2019-11-04 Completed [facility] of Conjugate, PCV13 00:00:00 [place] [facility] (Prevnar 13) Branch Pneumococcal 13 2019-11-04 Completed [facility] of Conjugate, PCV13 00:00:00 [place] [facility] (Prevnar 13) Branch Pneumococcal 13 2019-11-04 Completed [facility] of Conjugate, PCV13 00:00:00 [place] [facility] (Prevnar 13) Branch Pneumococcal 13 2019-11-04 Completed [facility] of Conjugate, PCV13 00:00:00 [place] [facility] (Prevnar 13) Branch Pneumococcal 13 2019-11-04 Completed [facility] of Conjugate, PCV13 00:00:00 [place] [facility] (Prevnar 13) Branch Pneumococcal 13 2019-11-04 Completed [facility] of Conjugate, PCV13 00:00:00 [place] [facility] (Prevnar 13) Branch Pneumococcal 13 2019-11-04 Completed [facility] of Conjugate, PCV13 00:00:00 [place] [facility] (Prevnar 13) Branch Pneumococcal 13 2019-11-04 Completed [facility] of Conjugate, PCV13 00:00:00 [place] [facility] (Prevnar 13) Branch Pneumococcal 13 2019-11-04 Completed [facility] of Conjugate, PCV13 00:00:00 [place] [facility] (Prevnar 13) Branch Pneumococcal 13 2019-11-04 Completed [facility] of Conjugate, PCV13 00:00:00 [place] [facility] (Prevnar 13) Branch Pneumococcal 13 2019-11-04 Completed [facility] of Conjugate, PCV13 00:00:00 [place] [facility] (Prevnar 13) Branch Pneumococcal 13 2019-11-04 Completed [facility] of Conjugate, PCV13 00:00:00 [place] [facility] (Prevnar 13) Branch Pneumococcal 13 2019-11-04 Completed [facility] of Conjugate, PCV13 00:00:00 [place] [facility] (Prevnar 13) Branch Pneumococcal 13 2019-11-04 Completed [facility] of Conjugate, PCV13 00:00:00 [place] [facility] (Prevnar 13) Branch Pneumococcal 13 2019-11-04 Completed [facility] of Conjugate, PCV13 00:00:00 [place] [facility] (Prevnar 13) Branch Pneumococcal 13 2019-11-04 Completed [facility] of Conjugate, PCV13 00:00:00 [place] [facility] (Prevnar 13) Branch Pneumococcal 13 2019-11-04 Completed [facility] of Conjugate, PCV13 00:00:00 [place] [facility] (Prevnar 13) Branch Pneumococcal 13 2019-11-04 Completed [facility] of Conjugate, PCV13 00:00:00 [place] [facility] (Prevnar 13) Branch Pneumococcal 13 2019-11-04 Completed [facility] of Conjugate, PCV13 00:00:00 [place] [facility] (Prevnar 13) Branch Pneumococcal 13 2019-11-04 Completed [facility] of Conjugate, PCV13 00:00:00 [place] [facility] (Prevnar 13) Branch Pneumococcal 13 2019-11-04 Completed [facility] of Conjugate, PCV13 00:00:00 [place] [facility] (Prevnar 13) Branch Pneumococcal 13 2019-11-04 Completed [facility] of Conjugate, PCV13 00:00:00 [place] [facility] (Prevnar 13) Branch Pneumococcal 13 2019-11-04 Completed [facility] of Conjugate, PCV13 00:00:00 [place] [facility] (Prevnar 13) Branch Pneumococcal 13 2019-11-04 Completed [facility] of Conjugate, PCV13 00:00:00 [place] [facility] (Prevnar 13) Branch Pneumococcal 13 2019-11-04 Completed [facility] of Conjugate, PCV13 00:00:00 [place] [facility] (Prevnar 13) Branch Pneumococcal 13 2019-11-04 Completed [facility] of Conjugate, PCV13 00:00:00 [place] [facility] (Prevnar 13) Branch Pneumococcal 13 2019-11-04 Completed [facility] of Conjugate, PCV13 00:00:00 [place] [facility] (Prevnar 13) Branch Pneumococcal 13 2019-11-04 Completed [facility] of Conjugate, PCV13 00:00:00 [place] [facility] (Prevnar 13) Branch Pneumococcal 13 2019-11-04 Completed [facility] of Conjugate, PCV13 00:00:00 [place] [facility] (Prevnar 13) Branch Pneumococcal 13 2019-11-04 Completed [facility] of Conjugate, PCV13 00:00:00 [place] [facility] (Prevnar 13) Branch Pneumococcal 13 2019-11-04 Completed [facility] of Conjugate, PCV13 00:00:00 [place] [facility] (Prevnar 13) Branch Pneumococcal 13 2019-11-04 Completed [facility] of Conjugate, PCV13 00:00:00 [place] [facility] (Prevnar 13) Branch Pneumococcal 13 2019-11-04 Completed [facility] of Conjugate, PCV13 00:00:00 [place] [facility] (Prevnar 13) Branch Pneumococcal 13 2019-11-04 Completed [facility] of Conjugate, PCV13 00:00:00 [place] [facility] (Prevnar 13) Branch Pneumococcal 13 2019-11-04 Completed [facility] of Conjugate, PCV13 00:00:00 [place] [facility] (Prevnar 13) Branch Pneumococcal 13 2019-11-04 Completed [facility] of Conjugate, PCV13 00:00:00 [place] [facility] (Prevnar 13) Branch Pneumococcal 13 2019-11-04 Completed [facility] of Conjugate, PCV13 00:00:00 [place] [facility] (Prevnar 13) Branch Pneumococcal 13 2019-11-04 Completed [facility] of Conjugate, PCV13 00:00:00 [place] [facility] (Prevnar 13) Branch Pneumococcal 13 2019-11-04 Completed [facility] of Conjugate, PCV13 00:00:00 [place] [facility] (Prevnar 13) Branch Pneumococcal 13 2019-11-04 Completed [facility] of Conjugate, PCV13 00:00:00 [place] [facility] (Prevnar 13) Branch Pneumococcal 13 2019-11-04 Completed [facility] of Conjugate, PCV13 00:00:00 [place] [facility] (Prevnar 13) Branch Pneumococcal 13 2019-11-04 Completed [facility] of Conjugate, PCV13 00:00:00 [place] [facility] (Prevnar 13) Branch Pneumococcal 13 2019-11-04 Completed [facility] of Conjugate, PCV13 00:00:00 [place] [facility] (Prevnar 13) Branch Pneumococcal 13 2019-11-04 Completed [facility] of Conjugate, PCV13 00:00:00 [place] [facility] (Prevnar 13) Branch Pneumococcal 13 2019-11-04 Completed [facility] of Conjugate, PCV13 00:00:00 [place] [facility] (Prevnar 13) Branch Pneumococcal 13 2019-11-04 Completed [facility] of Conjugate, PCV13 00:00:00 [place] [facility] (Prevnar 13) Branch Pneumococcal 13 2019-11-04 Completed [facility] of Conjugate, PCV13 00:00:00 [place] [facility] (Prevnar 13) Branch Pneumococcal 13 2019-11-04 Completed [facility] of Conjugate, PCV13 00:00:00 [place] [facility] (Prevnar 13) Branch Pneumococcal 13 2019-11-04 Completed [facility] of Conjugate, PCV13 00:00:00 [place] [facility] (Prevnar 13) Branch Pneumococcal 13 2019-11-04 Completed [facility] of Conjugate, PCV13 00:00:00 [place] [facility] (Prevnar 13) Branch Pneumococcal 13 2019-11-04 Completed [facility] of Conjugate, PCV13 00:00:00 [place] [facility] (Prevnar 13) Branch Pneumococcal 13 2019-11-04 Completed [facility] of Conjugate, PCV13 00:00:00 [place] [facility] (Prevnar 13) Branch Pneumococcal 13 2019-11-04 Completed [facility] of Conjugate, PCV13 00:00:00 [place] [facility] (Prevnar 13) Branch Pneumococcal 13 2019-11-04 Completed [facility] of Conjugate, PCV13 00:00:00 [place] [facility] (Prevnar 13) Branch Pneumococcal 13 2019-11-04 Completed [facility] of Conjugate, PCV13 00:00:00 [place] [facility] (Prevnar 13) Branch Pneumococcal 13 2019-11-04 Completed [facility] of Conjugate, PCV13 00:00:00 [place] [facility] (Prevnar 13) Branch Pneumococcal 13 2019-11-04 Completed [facility] of Conjugate, PCV13 00:00:00 [place] [facility] (Prevnar 13) Branch Pneumococcal 13 2019-11-04 Completed [facility] of Conjugate, PCV13 00:00:00 [place] [facility] (Prevnar 13) Branch Pneumococcal 13 2019-11-04 Completed [facility] of Conjugate, PCV13 00:00:00 [place] [facility] (Prevnar 13) Branch Pneumococcal 13 2019-11-04 Completed [facility] of Conjugate, PCV13 00:00:00 [place] [facility] (Prevnar 13) Branch Pneumococcal 13 2019-11-04 Completed [facility] of Conjugate, PCV13 00:00:00 [place] [facility] (Prevnar 13) Branch Pneumococcal 13 2019-11-04 Completed [facility] of Conjugate, PCV13 00:00:00 [place] [facility] (Prevnar 13) Branch Pneumococcal 13 2019-11-04 Completed [facility] of Conjugate, PCV13 00:00:00 [place] [facility] (Prevnar 13) Branch Pneumococcal 13 2019-11-04 Completed [facility] of Conjugate, PCV13 00:00:00 [place] [facility] (Prevnar 13) Branch Pneumococcal 13 2019-11-04 Completed [facility] of Conjugate, PCV13 00:00:00 [place] [facility] (Prevnar 13) Branch Pneumococcal 13 2019-11-04 Completed [facility] of Conjugate, PCV13 00:00:00 [place] [facility] (Prevnar 13) Branch Pneumococcal 13 2019-11-04 Completed [facility] of Conjugate, PCV13 00:00:00 [place] [facility] (Prevnar 13) Branch Pneumococcal 13 2019-11-04 Completed [facility] of Conjugate, PCV13 00:00:00 [place] [facility] (Prevnar 13) Branch Pneumococcal 13 2019-11-04 Completed [facility] of Conjugate, PCV13 00:00:00 [place] [facility] (Prevnar 13) Branch Pneumococcal 13 2019-11-04 Completed [facility] of Conjugate, PCV13 00:00:00 [place] [facility] (Prevnar 13) Branch Pneumococcal 13 2019-11-04 Completed [facility] of Conjugate, PCV13 00:00:00 [place] [facility] (Prevnar 13) Branch Pneumococcal 13 2019-11-04 Completed [facility] of Conjugate, PCV13 00:00:00 [place] [facility] (Prevnar 13) Branch Pneumococcal 13 2019-11-04 Completed [facility] of Conjugate, PCV13 00:00:00 [place] [facility] (Prevnar 13) Branch Pneumococcal 13 2019-11-04 Completed [facility] of Conjugate, PCV13 00:00:00 [place] [facility] (Prevnar 13) Branch Pneumococcal 13 2019-11-04 Completed [facility] of Conjugate, PCV13 00:00:00 [place] [facility] (Prevnar 13) Branch Pneumococcal 13 2019-11-04 Completed [facility] of Conjugate, PCV13 00:00:00 [place] [facility] (Prevnar 13) Branch Pneumococcal 13 2019-11-04 Completed [facility] of Conjugate, PCV13 00:00:00 [place] [facility] (Prevnar 13) Branch Pneumococcal 13 2019-11-04 Completed [facility] of Conjugate, PCV13 00:00:00 [place] [facility] (Prevnar 13) Branch Pneumococcal 13 2019-11-04 Completed [facility] of Conjugate, PCV13 00:00:00 [place] [facility] (Prevnar 13) Branch Pneumococcal 13 2019-11-04 Completed [facility] of Conjugate, PCV13 00:00:00 [place] [facility] (Prevnar 13) Branch Pneumococcal 13 2019-11-04 Completed [facility] of Conjugate, PCV13 00:00:00 [place] [facility] (Prevnar 13) Branch Pneumococcal 13 2019-11-04 Completed [facility] of Conjugate, PCV13 00:00:00 [place] [facility] (Prevnar 13) Branch Pneumococcal 13 2019-11-04 Completed [facility] of Conjugate, PCV13 00:00:00 [place] [facility] (Prevnar 13) Branch Pneumococcal 13 2019-11-04 Completed [facility] Conjugate, PCV13 00:00:00 [place] [facility] (Prevnar 13) Branch Pneumococcal 13 2019-11-04 Completed [facility] of Conjugate, PCV13 00:00:00 [place] [facility] (Prevnar 13) Branch Pneumococcal 13 2019-11-04 Completed [facility] of Conjugate, PCV13 00:00:00 [place] [facility] (Prevnar 13) Branch Pneumococcal 13 2019-11-04 Completed [facility] of Conjugate, PCV13 00:00:00 [place] [facility] (Prevnar 13) Branch Pneumococcal 13 2019-11-04 Completed [facility] Conjugate, PCV13 00:00:00 [place] [facility] (Prevnar 13) Branch Pneumococcal 13 2019-11-04 Completed [facility] Conjugate, PCV13 00:00:00 [place] [facility] (Prevnar 13) Branch Pneumococcal 13 2019-11-04 Completed [facility] Conjugate, PCV13 00:00:00 [place] [facility] (Prevnar 13) Branch Pneumococcal 13 2019-11-04 Completed [facility] Conjugate, PCV13 00:00:00 [place] [facility] (Prevnar 13) Branch Pneumococcal 13 2019-11-04 Completed [facility] Conjugate, PCV13 00:00:00 [place] [facility] (Prevnar 13) Branch Pneumococcal 13 2019-11-04 Completed [facility] of Conjugate, PCV13 00:00:00 [place] [facility] (Prevnar 13) Branch Pneumococcal 13 2019-11-04 Completed [facility] Conjugate, PCV13 00:00:00 [place] [facility] (Prevnar 13) Branch Pneumococcal 13 2019-11-04 Completed [facility] Conjugate, PCV13 00:00:00 [place] [facility] (Prevnar 13) Branch Pneumococcal 13 2019-11-04 Completed [facility] Conjugate, PCV13 00:00:00 [place] [facility] (Prevnar 13) Branch Pneumococcal 13 2019-11-04 Completed [facility] Conjugate, PCV13 00:00:00 [place] [facility] (Prevnar 13) Branch Pneumococcal 13 2019-11-04 Completed [facility] Conjugate, PCV13 00:00:00 [place] [facility] (Prevnar 13) Branch Pneumococcal 13 2019-11-04 Completed [facility] Conjugate, PCV13 00:00:00 [place] [facility] (Prevnar 13) Branch Pneumococcal 13 2019-11-04 Completed [facility] Conjugate, PCV13 00:00:00 [place] [facility] (Prevnar 13) Branch Pneumococcal 13 2019-11-04 Completed [facility] Conjugate, PCV13 00:00:00 [place] [facility] (Prevnar 13) Branch Pneumococcal 13 2019-11-04 Completed [facility] Conjugate, PCV13 00:00:00 [place] [facility] (Prevnar 13) Branch Pneumococcal 13 2019-11-04 Completed [facility] Conjugate, PCV13 00:00:00 [place] [facility] (Prevnar 13) Branch Pneumococcal 13 2019-11-04 Completed [facility] Conjugate, PCV13 00:00:00 [place] [facility] (Prevnar 13) Branch Pneumococcal 13 2019-11-04 Completed [facility] Conjugate, PCV13 00:00:00 [place] [facility] (Prevnar 13) Branch Pneumococcal 13 2019-11-04 Completed [facility] Conjugate, PCV13 00:00:00 [place] [facility] (Prevnar 13) Branch Pneumococcal 13 2019-11-04 Completed [facility] Conjugate, PCV13 00:00:00 [place] [facility] (Prevnar 13) Branch Pneumococcal 13 2019-11-04 Completed [facility] Conjugate, PCV13 00:00:00 [place] [facility] (Prevnar 13) Branch Pneumococcal 13 2019-11-04 Completed [facility] Conjugate, PCV13 00:00:00 [place] [facility] (Prevnar 13) Branch Pneumococcal 13 2019-11-04 Completed [facility] Conjugate, PCV13 00:00:00 [place] [facility] dical (Prevnar 13) Branch Pneumococcal 13 2019-11-04 Completed [facility]it y of Conjugate, PCV13 00:00:00 [place] [facility] (Prevnar 13) Branch Pneumococcal 13 2019-11-04 Completed [facility]it [facility] of Conjugate, PCV13 00:00:00 [place] [facility] (Prevnar 13) Branch Pneumococcal 13 2019-11-04 Completed [facility]it y of Conjugate, PCV13 00:00:00 [place] [facility] (Prevnar 13) Branch Pneumococcal 13 2019-11-04 Completed [facility]it y of Conjugate, PCV13 00:00:00 [place] [facility] (Prevnar 13) Branch Pneumococcal 13 2019-11-04 Completed [facility]it y of Conjugate, PCV13 00:00:00 [place] [facility] (Prevnar 13) Branch Pneumococcal 13 2019-11-04 Completed [facility]it y of Conjugate, PCV13 00:00:00 [place] [facility] (Prevnar 13) Branch Pneumococcal 13 2019-11-04 Completed [facility]it y of Conjugate, PCV13 00:00:00 [place] [facility] (Prevnar 13) Branch Pneumococcal 13 2019-11-04 Completed [facility]it y of Conjugate, PCV13 00:00:00 [place] [facility] (Prevnar 13) Branch Pneumococcal 13 2019-11-04 Completed [facility]it y of Conjugate, PCV13 00:00:00 [place] [facility] (Prevnar 13) Branch Pneumococcal 13 2019-11-04 Completed [facility]it y of Conjugate, PCV13 00:00:00 [place] [facility] (Prevnar 13) Branch Pneumococcal 13 2019-11-04 Completed [facility]it y of Conjugate, PCV13 00:00:00 [place] [facility] (Prevnar 13) Branch Pneumococcal 13 2019-11-04 Completed [facility]it y of Conjugate, PCV13 00:00:00 [place] [facility] (Prevnar 13) Branch Pneumococcal 13 2019-11-04 Completed [facility]it y of Conjugate, PCV13 00:00:00 [place] [facility] (Prevnar 13) Branch Pneumococcal 13 2019-11-04 Completed [facility]it y of Conjugate, PCV13 00:00:00 [place] [facility] (Prevnar 13) Branch Pneumococcal 13 2019-11-04 Completed [facility]it y of Conjugate, PCV13 00:00:00 [place] [facility] (Prevnar 13) Branch Pneumococcal 13 2019-11-04 Completed [facility]it y of Conjugate, PCV13 00:00:00 [place] [facility] (Prevnar 13) Branch Pneumococcal 13 2019-11-04 Completed [facility]it y of Conjugate, PCV13 00:00:00 [place] [facility] (Prevnar 13) Branch Pneumococcal 13 2019-11-04 Completed [facility]it y of Conjugate, PCV13 00:00:00 [place] [facility] (Prevnar 13) Branch Pneumococcal 13 2019-11-04 Completed [facility]it y of Conjugate, PCV13 00:00:00 [place] [facility] (Prevnar 13) Branch Pneumococcal 13 2019-11-04 Completed [facility]it y of Conjugate, PCV13 00:00:00 [place] [facility] (Prevnar 13) Branch Pneumococcal 13 2019-11-04 Completed [facility]it y of Conjugate, PCV13 00:00:00 [place] [facility] (Prevnar 13) Branch Pneumococcal 13 2019-11-04 Completed [facility]it y of Conjugate, PCV13 00:00:00 [place] [facility] (Prevnar 13) Branch Pneumococcal 13 2019-11-04 Completed [facility]it y of Conjugate, PCV13 00:00:00 [place] [facility] (Prevnar 13) Branch Pneumococcal 13 2019-11-04 Completed [facility]it y of Conjugate, PCV13 00:00:00 [place] [facility] (Prevnar 13) Branch Pneumococcal 13 2019-11-04 Completed [facility]it y of Conjugate, PCV13 00:00:00 [place] [facility] (Prevnar 13) Branch Pneumococcal 13 2019-11-04 Completed [facility]it y of Conjugate, PCV13 00:00:00 [place] [facility] (Prevnar 13) Branch Pneumococcal 13 2019-11-04 Completed [facility]it y of Conjugate, PCV13 00:00:00 [place] [facility] (Prevnar 13) Branch Pneumococcal 13 2019-11-04 Completed [facility]it y of Conjugate, PCV13 00:00:00 [place] [facility] (Prevnar 13) Branch Pneumococcal 13 2019-11-04 Completed [facility]it y of Conjugate, PCV13 00:00:00 [place] [facility] (Prevnar 13) Branch Pneumococcal 13 2019-11-04 Completed [facility]it y of Conjugate, PCV13 00:00:00 [place] [facility] (Prevnar 13) Branch Pneumococcal 13 2019-11-04 Completed [facility]it y of Conjugate, PCV13 00:00:00 [place] [facility] (Prevnar 13) Branch Pneumococcal 13 2019-11-04 Completed [facility]it y of Conjugate, PCV13 00:00:00 [place] [facility] (Prevnar 13) Branch Pneumococcal 13 2019-11-04 Completed [facility]it y of Conjugate, PCV13 00:00:00 [place] [facility] (Prevnar 13) Branch Pneumococcal 13 2019-11-04 Completed [facility]it y of Conjugate, PCV13 00:00:00 [place] [facility] (Prevnar 13) Branch Pneumococcal 13 2019-11-04 Completed [facility]it y of Conjugate, PCV13 00:00:00 [place] [facility] (Prevnar 13) Branch Pneumococcal 13 2019-11-04 Completed [facility]it y of Conjugate, PCV13 00:00:00 [place] [facility] (Prevnar 13) Branch Pneumococcal 13 2019-11-04 Completed [facility]it y of Conjugate, PCV13 00:00:00 [place] [facility] (Prevnar 13) Branch Pneumococcal 13 2019-11-04 Completed [facility]it y of Conjugate, PCV13 00:00:00 [place] [facility] (Prevnar 13) Branch Pneumococcal 13 2019-11-04 Completed [facility]it y of Conjugate, PCV13 00:00:00 [place] [facility] (Prevnar 13) Branch Pneumococcal 13 2019-11-04 Completed Universit y of Conjugate, PCV13 00:00:00 [facility] dical (Prevnar 13) Branch Pneumococcal 13 2019-11-04 Completed Universit y of Conjugate, PCV13 00:00:00 [facility] dical (Prevnar 13) Branch Pneumococcal 13 2019-11-04 Completed Universit y of Conjugate, PCV13 00:00:00 [facility] dical (Prevnar 13) Branch Pneumococcal Unknown Completed [facility] Conjugate (Prevnar) [facility] 13-Valent INFLUENZA QIV Unknown Completed [facility] ADJUV[facility]ED PF [facility] ([id number]) Pneumococcal Unknown Completed [facility]ar[facility] 13-Valent INFLUENZA QIV Unknown Completed [facility] AD[facility]ED [facility] ([id number]) Pneumococcal 13 Unknown Completed Universit y of Conjugate, PCV13 [facility] dical (Prevnar 13) Branch SARS-COV-2 COVID-19 Unknown Completed Unive rsity of PFIZER VACCINE [facility] SARS-COV-2 COVID-19 Unknown Completed Unive rsity of PFIZER VACCINE [facility] Pneumococcal 13 Unknown Completed Universit y of Conjugate, PCV13 [facility] dical (Prevnar 13) Branch Influenza High Dose Unknown Completed Unive rsity of [facility] Pneumococcal Unknown Completed University o f Polysaccharide, [facility] ical PPSV23 (PNEUMOVAX) Branch BEBTELOVIMAB Unknown Completed University o f [facility] Pneumococcal 13 Unknown Completed Universit y of Conjugate, PCV13 [facility] dical (Prevnar 13) Branch SARS-COV-2 COVID-19 Unknown Completed Unive rsity of PFIZER VACCINE [facility] Branch SARS-COV-2 COVID-19 Unknown Completed Unive rsity of PFIZER VACCINE [facility] Pneumococcal 13 Unknown Completed Universit y of Conjugate, PCV13 [facility] dical (Prevnar 13) Branch Influenza High Dose Unknown Completed Unive rsity of [facility] Pneumococcal Unknown Completed University o f Polysaccharide, [place] [facility] PPSV23 (PNEUMOVAX) Branch BEBTELOVIMAB Unknown Completed University o f [facility] Pneumococcal 13 Unknown Completed Universit y of Conjugate, PCV13 [facility] dical (Prevnar 13) Branch SARS-COV-2 COVID-19 Unknown Completed Unive rsity of PFIZER VACCINE [facility] SARS-COV-2 COVID-19 Unknown Completed Unive rsity of PFIZER VACCINE [facility] Pneumococcal 13 Unknown Completed [facility]it y of Conjugate, PCV13 [place] [facility] (Prevnar 13) Branch Influenza High Dose Unknown Completed Unive rsity of [facility] Pneumococcal Unknown Completed University o f Polysaccharide, [place] [facility] PPSV23 (PNEUMOVAX) Branch BEBTELOVIMAB Unknown Completed University o f [facility] Pneumococcal 13 Unknown Completed [facility]it y of Conjugate, PCV13 [place] [facility] (Prevnar 13) Branch SARS-COV-2 COVID-19 Unknown Completed Unive rsity of PFIZER VACCINE [facility] SARS-COV-2 COVID-19 Unknown Completed Unive rsity of PFIZER VACCINE [facility] Pneumococcal 13 Unknown Completed Universit y of Conjugate, PCV13 [place] [facility] (Prevnar 13) Branch Influenza High Dose Unknown Completed Unive rsity of [facility] Pneumococcal Unknown Completed University o f Polysaccharide, [place] [facility] PPSV23 (PNEUMOVAX) Branch BEBTELOVIMAB Unknown Completed University o f [facility] Pneumococcal 13 Unknown Completed [facility]it y of Conjugate, PCV13 [place] [facility] (Prevnar 13) Branch SARS-COV-2 COVID-19 Unknown Completed Unive rsity of PFIZER VACCINE [facility] SARS-COV-2 COVID-19 Unknown Completed Unive rsity of PFIZER VACCINE [facility] Pneumococcal 13 Unknown Completed Universit y of Conjugate, PCV13 [facility] dical (Prevnar 13) Branch Influenza High Dose Unknown Completed Unive rsity of [facility] Pneumococcal Unknown Completed University o f Polysaccharide, [place] [facility] PPSV23 (PNEUMOVAX) Branch BEBTELOVIMAB Unknown Completed University o f [facility] Pneumococcal 13 Unknown Completed Universit y of Conjugate, PCV13 [place] [facility] (Prevnar 13) Branch SARS-COV-2 COVID-19 Unknown Completed Unive rsity of PFIZER VACCINE [facility] SARS-COV-2 COVID-19 Unknown Completed Unive rsity of PFIZER VACCINE [facility] Pneumococcal 13 Unknown Completed Universit y of Conjugate, PCV13 [place] [facility] (Prevnar 13) Branch Influenza High Dose Unknown Completed Unive rsity of [facility] Pneumococcal Unknown Completed University o f Polysaccharide, [place] [facility] PPSV23 (PNEUMOVAX) Branch BEBTELOVIMAB Unknown Completed University o f [facility] Pneumococcal 13 Unknown Completed Universit y of Conjugate, PCV13 [place] [facility] (Prevnar 13) Branch SARS-COV-2 COVID-19 Unknown Completed Unive rsity of PFIZER VACCINE [facility] Branch SARS-COV-2 COVID-19 Unknown Completed Unive rsity of PFIZER VACCINE [facility] Pneumococcal 13 Unknown Completed Universit y of Conjugate, PCV13 [place] [facility] (Prevnar 13) Branch Influenza High Dose Unknown Completed Unive rsity of [facility] Pneumococcal Unknown Completed University o f Polysaccharide, [place] [facility] PPSV23 (PNEUMOVAX) Branch Pneumococcal 13 Unknown Completed Universit y of Conjugate, PCV13 [place] [facility] (Prevnar 13) Branch SARS-COV-2 COVID-19 Unknown Completed Unive rsity of PFIZER VACCINE [facility] Branch SARS-COV-2 COVID-19 Unknown Completed Unive rsity of PFIZER VACCINE [facility] Pneumococcal 13 Unknown Completed Universit y of Conjugate, PCV13 [place] [facility] (Prevnar 13) Branch Influenza High Dose Unknown Completed Unive rsity of [facility] Pneumococcal Unknown Completed University o f Polysaccharide, [place] [facility] PPSV23 (PNEUMOVAX) Branch Pneumococcal 13 Unknown Completed [facility]it y of Conjugate, PCV13 [place] [facility] (Prevnar 13) Branch Pneumococcal 13 Unknown Completed [facility]it y of Conjugate, PCV13 [place] [facility] (Prevnar 13) Branch Influenza High Dose Unknown Completed Unive rsity of [facility] Pneumococcal 13 Unknown Completed Universit y of Conjugate, PCV13 [facility] dical (Prevnar 13) Branch SARS-COV-2 COVID-19 Unknown Completed Unive rsity of PFIZER VACCINE [facility] SARS-COV-2 COVID-19 Unknown Completed Unive rsity of PFIZER VACCINE [facility] Pneumococcal 13 Unknown Completed Universit y of Conjugate, PCV13 [facility] dical (Prevnar 13) Branch Influenza High Dose Unknown Completed Unive rsity of [facility] Pneumococcal Unknown Completed University o f Polysaccharide, [place] [facility] PPSV23 (PNEUMOVAX) Branch BEBTELOVIMAB Unknown Completed University o f [facility] Pneumococcal 13 Unknown Completed Universit y of Conjugate, PCV13 [facility] dical (Prevnar 13) Branch SARS-COV-2 COVID-19 Unknown Completed Unive rsity of PFIZER VACCINE [facility] Branch SARS-COV-2 COVID-19 Unknown Completed Unive rsity of PFIZER VACCINE [facility] Pneumococcal 13 Unknown Completed Universit y of Conjugate, PCV13 [place] [facility] (Prevnar 13) Branch Influenza High Dose Unknown Completed Unive rsity of [facility] Pneumococcal Unknown Completed University o f Polysaccharide, [place] [facility] PPSV23 (PNEUMOVAX) Branch BEBTELOVIMAB Unknown Completed University o f [facility] Pneumococcal 13 Unknown Completed Universit y of Conjugate, PCV13 [facility] dical (Prevnar 13) Branch SARS-COV-2 COVID-19 Unknown Completed Unive rsity of PFIZER VACCINE [facility] Branch SARS-COV-2 COVID-19 Unknown Completed Unive rsity of PFIZER VACCINE [facility] Pneumococcal 13 Unknown Completed Universit y of Conjugate, PCV13 [place] [facility] (Prevnar 13) Branch Influenza High Dose Unknown Completed Unive rsity of [facility] Pneumococcal Unknown Completed University o f Polysaccharide, [place] [facility] PPSV23 (PNEUMOVAX) Branch BEBTELOVIMAB Unknown Completed University o f [facility] Pneumococcal 13 Unknown Completed Universit y of Conjugate, PCV13 [facility] dical (Prevnar 13) Branch SARS-COV-2 COVID-19 Unknown Completed Unive rsity of PFIZER VACCINE [facility] Branch SARS-COV-2 COVID-19 Unknown Completed Unive rsity of PFIZER VACCINE [facility] Pneumococcal 13 Unknown Completed Universit y of Conjugate, PCV13 [facility] dical (Prevnar 13) Branch Influenza High Dose Unknown Completed Unive rsity of [facility] Pneumococcal Unknown Completed University o f Polysaccharide, [place] [facility] PPSV23 (PNEUMOVAX) Branch BEBTELOVIMAB Unknown Completed University o f [facility] Pneumococcal 13 Unknown Completed Universit y of Conjugate, PCV13 [facility] dical (Prevnar 13) Branch SARS-COV-2 COVID-19 Unknown Completed Unive rsity of PFIZER VACCINE [facility] Branch SARS-COV-2 COVID-19 Unknown Completed Unive rsity of PFIZER VACCINE [facility] Pneumococcal 13 Unknown Completed Universit y of Conjugate, PCV13 [facility] dical (Prevnar 13) Branch Influenza High Dose Unknown Completed Unive rsity of [facility] Pneumococcal Unknown Completed University o f Polysaccharide, [place] [facility] PPSV23 (PNEUMOVAX) Branch BEBTELOVIMAB Unknown Completed University o f [facility] Pneumococcal 13 Unknown Completed Universit y of Conjugate, PCV13 [place] [facility] (Prevnar 13) Branch SARS-COV-2 COVID-19 Unknown Completed Unive rsity of PFIZER VACCINE [place] [facility] SARS-COV-2 COVID-19 Unknown Completed Unive rsity of PFIZER VACCINE [facility] Pneumococcal 13 Unknown Completed Universit y of Conjugate, PCV13 [place] [facility] (Prevnar 13) Branch Influenza High Dose Unknown Completed Unive rsity of [facility] Pneumococcal Unknown Completed University o f Polysaccharide, [place] [facility] PPSV23 (PNEUMOVAX) Branch BEBTELOVIMAB Unknown Completed University o f [facility] Pneumococcal 13 Unknown Completed Universit y of Conjugate, PCV13 [place] [facility] (Prevnar 13) Branch SARS-COV-2 COVID-19 Unknown Completed Unive rsity of PFIZER VACCINE [facility] Branch SARS-COV-2 COVID-19 Unknown Completed Unive rsity of PFIZER VACCINE [facility] Pneumococcal 13 Unknown Completed Universit y of Conjugate, PCV13 [place] [facility] (Prevnar 13) Branch Influenza High Dose Unknown Completed Unive rsity of [facility] Pneumococcal Unknown Completed University o f Polysaccharide, [place] [facility] PPSV23 (PNEUMOVAX) Branch BEBTELOVIMAB Unknown Completed University o f [facility] Pneumococcal 13 Unknown Completed Universit y of Conjugate, PCV13 [place] [facility] (Prevnar 13) Branch SARS-COV-2 COVID-19 Unknown Completed Unive rsity of PFIZER VACCINE [facility] Branch SARS-COV-2 COVID-19 Unknown Completed Unive rsity of PFIZER VACCINE [facility] Pneumococcal 13 Unknown Completed Universit y of Conjugate, PCV13 [place] [facility] (Prevnar 13) Branch Influenza High Dose Unknown Completed Unive rsity of [facility] Pneumococcal Unknown Completed University o f Polysaccharide, [place] [facility] PPSV23 (PNEUMOVAX) Branch BEBTELOVIMAB Unknown Completed University o f [facility] Pneumococcal 13 Unknown Completed Universit y of Conjugate, PCV13 [place] [facility] (Prevnar 13) Branch SARS-COV-2 COVID-19 Unknown Completed Unive rsity of PFIZER VACCINE [facility] SARS-COV-2 COVID-19 Unknown Completed Unive rsity of PFIZER VACCINE [facility] Pneumococcal 13 Unknown Completed Universit y of Conjugate, PCV13 [place] [facility] (Prevnar 13) Branch Influenza High Dose Unknown Completed Unive rsity of [facility] Pneumococcal Unknown Completed University o f Polysaccharide, [place] [facility] PPSV23 (PNEUMOVAX) Branch BEBTELOVIMAB Unknown Completed University o f [facility] Pneumococcal Unknown Completed [facility] Con[facility]ate (Prevnar[facility] 13-Valent INFLUENZA QIV Unknown Completed [facility] ADJUVANTED PF [facility] ([id number]) Vital Signs Vital Name Observation Time Observation Value Comments Source HEIGHT 2022-12-21 13:01:00 180.3 cm WEIGHT 2022-12-21 13:01:00 105.189 kg HEIGHT 2022-12-21 13:01:00 180.3 cm WEIGHT 2022-12-21 13:01:00 105.189 kg HEIGHT 2022-12-21 13:01:00 180.3 cm WEIGHT 2022-12-21 13:01:00 105.189 kg HEIGHT 2022-12-21 12:02:00 180.3 cm WEIGHT 2022-12-21 12:02:00 105.235 kg HEIGHT 2022-12-21 12:02:00 180.3 cm WEIGHT 2022-12-21 12:02:00 105.235 kg HEIGHT 2022-12-21 12:02:00 180.3 cm WEIGHT 2022-12-21 12:02:00 105.235 kg HEIGHT 2022-11-09 11:58:00 180.3 cm WEIGHT 2022-11-09 11:58:00 107.593 kg HEIGHT 2022-11-09 11:58:00 180.3 cm WEIGHT 2022-11-09 11:58:00 107.593 kg HEIGHT 2022-11-09 11:58:00 180.3 cm WEIGHT 2022-11-09 11:58:00 107.593 kg Systolic blood 2022-10-22 13:57:00 149 mm[Hg] Univer sity of [facility] Diastolic blood 2022-10-22 13:57:00 79 mm[Hg] Unive rsity [facility] Heart rate 2022-10-22 13:56:00 70 /min [facility] Respiratory rate 2022-10-22 13:56:00 18 /min Univ ersity [facility] Body height 2022-10-22 13:56:00 180.3 cm [facility] Body weight 2022-10-22 13:56:00 107.049 kg [facility] BMI 2022-10-22 13:56:00 32.92 kg/m2 Universi ty [facility] Oxygen saturation in 2022-10-22 13:56:00 98 /min University Arterial blood by [facility] Pulse oximetry Branch HEIGHT 2022-09-29 04:00:00 180.3 cm WEIGHT 2022-09-29 04:00:00 109.5 kg HEIGHT 2022-09-28 14:48:00 180.3 cm WEIGHT 2022-09-28 14:48:00 107.6 kg HEIGHT 2022-09-29 04:00:00 180.3 cm WEIGHT 2022-09-29 04:00:00 109.5 kg HEIGHT 2022-09-28 14:48:00 180.3 cm WEIGHT 2022-09-28 14:48:00 107.6 kg HEIGHT 2022-09-29 04:00:00 180.3 cm WEIGHT 2022-09-29 04:00:00 109.5 kg HEIGHT 2022-09-28 14:48:00 180.3 cm WEIGHT 2022-09-28 14:48:00 107.6 kg WEIGHT 2022-09-28 13:05:00 107.14 kg WEIGHT 2022-09-28 13:05:00 107.14 kg WEIGHT 2022-09-28 13:05:00 107.14 kg HEIGHT 2022-09-28 11:05:00 180.3 cm WEIGHT 2022-09-28 11:05:00 107.321 kg HEIGHT 2022-09-28 11:05:00 180.3 cm WEIGHT 2022-09-28 11:05:00 107.321 kg HEIGHT 2022-09-28 11:05:00 180.3 cm WEIGHT 2022-09-28 11:05:00 107.321 kg Systolic blood 2022-08-14 14:41:00 137 mm[Hg] Univer sity of pressure [facility] Diastolic blood 2022-08-14 14:41:00 71 mm[Hg] Unive rsity of pressure [facility] Heart rate 2022-08-14 14:41:00 70 /min Universi ty of [facility] Body temperature 2022-08-14 14:41:00 36.5 Carmen Univ ersity of [facility] Body height 2022-08-14 14:41:00 180.3 cm [facility]i [facility] Body weight 2022-08-14 14:41:00 108.092 kg [facility] BMI 2022-08-14 14:41:00 33.24 kg/m2 [facility] [place] [facility] Oxygen saturation in 2022-08-14 14:41:00 98 /min University of Arterial blood by [place] [facility] Pulse oximetry Branch Systolic blood 2022-07-19 15:10:00 127 mm[Hg] Univer sity of pressure [facility] Diastolic blood 2022-07-19 15:10:00 71 mm[Hg] Unive rsity of pressure [facility] Heart rate 2022-07-19 15:09:00 64 /min Universi ty of [facility] Body temperature 2022-07-19 15:09:00 36.44 Carmen Univ ersity of [facility] Body height 2022-07-19 15:09:00 180.3 cm Universi ty of [facility] Body weight 2022-07-19 15:09:00 108.41 kg [facility] BMI 2022-07-19 15:09:00 33.33 kg/m2 [facility] Oxygen saturation in 2022-07-19 15:09:00 98 /min University of Arterial blood by [place] [facility] Pulse oximetry Branch Systolic blood 2022-05-15 13:45:00 147 mm[Hg] Univer sity of pressure [facility] Diastolic blood 2022-05-15 13:45:00 66 mm[Hg] Unive rsity of pressure [facility] Heart rate 2022-05-15 13:44:00 65 /min [facility] ty [facility] Body height 2022-05-15 13:44:00 177.8 cm Universi ty of [facility] Body weight 2022-05-15 13:44:00 107.82 kg [facility]i ty of [facility] BMI 2022-05-15 13:44:00 34.11 kg/m2 [facility] Oxygen saturation in 2022-05-15 13:44:00 98 /min University of Arterial blood by [place] [facility] Pulse oximetry Branch Systolic blood 2022-05-08 15:16:00 141 mm[Hg] Univer sity of pressure [facility] Diastolic blood 2022-05-08 15:16:00 62 mm[Hg] Unive rsity of pressure [facility] Heart rate 2022-05-08 15:09:00 72 /min [facility]i ty of [facility] Body height 2022-05-08 15:09:00 177.8 cm [facility]i ty of [facility] Body weight 2022-05-08 15:09:00 106.822 kg [facility]i ty of [facility] BMI 2022-05-08 15:09:00 33.79 kg/m2 [facility] Oxygen saturation in 2022-05-08 15:09:00 98 /min University of Arterial blood by [place] [facility] Pulse oximetry Branch Systolic blood 2022-03-21 19:24:00 111 mm[Hg] Univer sity of pressure [facility] Diastolic blood 2022-03-21 19:24:00 69 mm[Hg] Unive rsity of pressure [facility] Heart rate 2022-03-21 19:24:00 99 /min [facility]i ty of [facility] Body temperature 2022-03-21 19:24:00 36.5 Carmen Univ ersity of [facility] Body height 2022-03-21 19:24:00 180.3 cm [facility]i ty of [facility] Body weight 2022-03-21 19:24:00 108.818 kg [facility] ty [facility] BMI 2022-03-21 19:24:00 33.46 kg/m2 [facility] Oxygen saturation in 2022-03-21 19:24:00 97 /min University of Arterial blood by [facility] [place] [facility] Pulse oximetry Branch Systolic blood 2022-01-31 18:12:00 124 mm[Hg] Univer sity of pressure [facility] Diastolic blood 2022-01-31 18:12:00 74 mm[Hg] Unive rsity of pressure [facility] Heart rate 2022-01-31 18:12:00 75 /min [facility] Body height 2022-01-31 18:12:00 180.3 cm [facility] Body weight 2022-01-31 18:12:00 107.049 kg [facility] BMI 2022-01-31 18:12:00 32.92 kg/m2 [facility] Oxygen saturation in 2022-01-31 18:12:00 97 /min [facility] blood by [place] [facility]xim[facility] Systolic blood 2022-01-09 23:18:00 157 mm[Hg] [facility] [place] [facility] Diastolic blood 2022-01-09 23:18:00 75 mm[Hg] [facility] Heart rate 2022-01-09 23:18:00 88 /min [facility] Body temperature 2022-01-09 23:18:00 37.33 Carmen [facility] Respiratory rate 2022-01-09 22:25:00 22 /min [facility] Body height 2022-01-09 22:25:00 180.3 cm [facility] Body weight 2022-01-09 22:25:00 104.327 kg [facility] BMI 2022-01-09 22:25:00 32.08 kg/m2 [facility] Oxygen saturation in 2022-01-09 22:25:00 94 /min [facility] [place] [facility] Systolic blood 2022-01-08 16:01:00 125 mm[Hg] [facility] Diastolic blood 2022-01-08 16:01:00 74 mm[Hg] [facility] Heart rate 2022-01-08 16:01:00 92 /min [facility] Body temperature 2022-01-08 16:01:00 37.11 Carmen [facility] Body height 2022-01-08 16:01:00 180.3 cm [facility] Body weight 2022-01-08 16:01:00 105.688 kg [facility] BMI 2022-01-08 16:01:00 32.50 kg/m2 [facility] Oxygen saturation in 2022-01-08 16:01:00 97 /min [facility] [place] [facility] HEIGHT 2020-02-26 10:55:00 180.3 cm WEIGHT 2020-02-26 10:55:00 117.6 kg HEIGHT 2020-02-26 10:55:00 180.3 cm WEIGHT 2020-02-26 10:55:00 117.6 kg Systolic blood 2022-12-21 13:01:00 148 mm[Hg] [facility] Diastolic blood 2022-12-21 13:01:00 68 mm[Hg] [facility] Heart rate 2022-12-21 13:01:00 64 /min [facility] Body temperature 2022-12-21 13:01:00 36.39 Carmen [facility] Respiratory rate 2022-12-21 13:01:00 19 /min [facility] Body height 2022-12-21 13:01:00 180.3 cm [facility] Body weight 2022-12-21 13:01:00 105.189 kg [facility] BMI 2022-12-21 13:01:00 32.34 kg/m2 [facility] Oxygen saturation in 2022-12-21 13:01:00 100 /min [facility] Arterial blood by Medical Ce nter Pulse oximetry Systolic blood 2022-11-09 13:03:00 136 mm[Hg] [facility] Diastolic blood 2022-11-09 13:03:00 63 mm[Hg] [facility] Heart rate 2022-11-09 13:03:00 60 /min [facility] Body temperature 2022-11-09 13:03:00 36.17 Carmen [facility] Respiratory rate 2022-11-09 13:03:00 19 /min [facility] Oxygen saturation in 2022-11-09 13:03:00 98 /min [facility] Arterial blood by Medical Ce [facility]ter Pulse oximetry Body height 2022-11-09 11:58:00 180.3 cm [facility] Body weight 2022-11-09 11:58:00 107.593 kg [facility] BMI 2022-11-09 11:58:00 33.08 kg/m2 [facility] Heart rate 2022-10-01 12:21:00 66 /min [facility] Respiratory rate 2022-10-01 12:21:00 18 /min [facility] Oxygen saturation in 2022-10-01 12:21:00 97 /min [facility] Arterial blood by Medical Ce [facility]ter Pulse oximetry Systolic blood 2022-10-01 11:50:00 116 mm[Hg] [facility] Diastolic blood 2022-10-01 11:50:00 58 mm[Hg] [facility] Body temperature 2022-10-01 11:50:00 36.39 Carmen [facility] Body height 2022-09-29 04:00:00 180.3 cm [facility] Body weight 2022-09-29 04:00:00 109.5 kg [facility] BMI 2022-09-29 04:00:00 33.67 kg/m2 [facility] Procedures Procedure Date / Time Performing Clinician Source Performed CBC W/PLT COUNT & AUTO 2022-12-21 11:38:00 Natalya Tom [facility] COMPREHENSIVE METABOLIC 2022-12-21 11:38:00 Natalya Tom [facility] TSH/FREE T4 IF INDICATED 2022-12-21 11:38:00 Natalya Tom [facility] CORTISOL 2022-12-21 11:38:00 Natalya Tom [facility] CBC W/PLT COUNT & AUTO 2022-12-21 11:38:00 Natalya Tom CH, I [facility] HOSPITAL ADMISSION 2022-12-07 05:01:00 Doctor Unassigned, [facility] HOME HEALTH - OTHER 2022-11-15 05:01:00 Doctor Unassigned, [facility] Name Medical Branch CBC W/PLT COUNT & AUTO 2022-11-09 11:39:00 Natalya Tom CH I [facility] COMPREHENSIVE METABOLIC 2022-11-09 11:39:00 Natalya Tom [facility] TSH/FREE T4 IF INDICATED 2022-11-09 11:39:00 Yesharath Luis FernandoAdycarol Alberto [facility] CORTISOL 2022-11-09 11:39:00 Yesharath Luis FernandoAdy Gaomeño [facility] CBC W/PLT COUNT & AUTO 2022-11-09 11:39:00 Yesharath Luis FernandoAdycarol Alberto [facility] HOME HEALTH - OTHER 2022-11-07 05:01:00 Doctor Unassigned, Frances [facility] CT ABDOMEN/PELVIS WITHOUT 2022-11-02 11:24:00 Yesharath, Luis FernandoAdy Gaomeño [facility] IV CONTRAST Center CT CHEST WITHOUT IV 2022-11-02 11:22:00 Vaishali LaithBrittanie Alberto [facility] S [facility] CONTRAST Center HOME HEALTH - OTHER 2022-10-25 05:01:00 Doctor UnaFrances beverly [facility] HOME HEALTH - OTHER 2022-10-17 05:01:00 Doctor UnassignedFrances [facility] Name Medical Branch POCT-GLUCOSE METER 2022-10-01 11:55:00 Felicia Shepard [facility] POCT-GLUCOSE METER 2022-10-01 07:50:00 Felicia Shepard [facility] CBC (HEMOGRAM ONLY) 2022-10-01 04:55:00 Felicia Shepard [facility] BASIC METABOLIC PANEL 2022-10-01 04:55:00 Felicia Shepard [facility] POCT-GLUCOSE METER 2022-09-30 20:16:00 Felicia Shepard [facility] POCT-GLUCOSE METER 2022-09-30 17:00:00 Felicia Shepard [facility] POCT-GLUCOSE METER 2022-09-30 12:12:00 Felicia Shepard [facility] POCT-GLUCOSE METER 2022-09-30 07:35:00 Felicia Shepard [facility] BASIC METABOLIC PANEL 2022-09-30 04:36:00 Felicia Shepard [facility] CBC (HEMOGRAM ONLY) 2022-09-30 04:36:00 RamaFelicia [facility] POCT-GLUCOSE METER 2022-09-29 20:53:00 Rama [facility] POCT-GLUCOSE METER 2022-09-29 17:46:00 [facility]BD[facility] COMPLETE 2022-09-29 16:44:13 Marleny Sanchez [facility] POCT-GLUCOSE METER 2022-09-29 11:37:[facility]SE [facility] 2022-09-29 08:00:00 Rama [facility] COMPREHENSIVE METABOLIC 2022-09-29 05:47:00 Marleny Sanchez [facility] Center MAGNESIUM 2022-09-29 05:47:00 [facility] HEM[facility] A1C 2022-09-29 05:40:00 [facility] CBC W/PLT COUNT & AUTO 2022-09-29 05:40:00 Marleny Sanchez [facility] HC LAB HIV-1 AG W/HIV-1&2 2022-09-29 05:40:00 Marleny Sanchez [facility] AB [place] RPR 2022-09-29 05:40:00 Marleny Sanchez [facility] TSH/FREE T4 IF INDICATED 2022-09-29 05:40:00 [facility] 2022-09-29 05:40:00 [facility] CBC W/PLT COUNT & AUTO 2022-09-29 05:40:00 Marleny Sanchez [facility] BASIC METABOLIC PANEL 2022-09-28 22:09:00 Qasim Alejandra [facility] BLOOD GAS, VENOUS 2022-09-28 22:09:00 Qasim Alejandra [facility] BASIC METABOLIC PANEL 2022-09-28 20:43:00 Essence Ray [facility] LACTIC ACID, VENOUS 2022-09-28 20:43:00 Cory Essence Aisha [facility] POCT-GLUCOSE METER 2022-09-28 19:16:00 Haugen Essencerobert Leonard [facility] BLOOD GAS, VENOUS 2022-09-28 19:03:00 Cory Essence Aisha [facility] CT BRAIN WITHOUT IV 2022-09-28 17:01:00 Haugen Essencerobert Leonard [facility] CONTRAST [place] URINALYSIS W/ MICROSCOPIC 2022-09-28 16:25:00 Essence Ray [facility] COMPREHENSIVE METABOLIC 2022-09-28 15:24:00 Essence Ray [facility] CBC W/PLT COUNT & AUTO 2022-09-28 15:24:00 CoryEssence [facility] KETONE, BLOOD 2022-09-28 15:24:00 Haugen Essencerobert Leonard [facility] BLOOD GAS, VENOUS 2022-09-28 15:24:00 Cory Essencerobert Leonard [facility] CBC W/PLT COUNT & AUTO 2022-09-28 15:24:00 Essence Ray [facility] POCT-GLUCOSE METER 2022-09-28 14:45:00 [facility] CBC W/PLT COUNT & AUTO 2022-09-28 10:36:00 Natalya Tom CH I [facility] COMPREHENSIVE METABOLIC 2022-09-28 10:36:00 Natalya Tom [facility] TSH/FREE T4 IF INDICATED 2022-09-28 10:36:00 Natalya Tom [facility] CORTISOL 2022-09-28 10:36:00 Natalya Tom [facility] CBC W/PLT COUNT & AUTO 2022-09-28 10:36:00 Natalya Tom CH I [facility] DIFFERENTIAL Center HOME HEALTH - OTHER 2022-09-28 05:01:00 Doctor Frances Dominguez rshemant [facility] EXTERNAL PROVIDER RECORDS 2022-09-13 05:01:00 Doctor Angelica, [facility] HOME HEALTH - OTHER 2022-08-23 05:01:00 Doctor Frances Dominguez rsity [facility] ASSIGNMENT OF BENEFITS 2022-08-14 14:34:31 Doctor Angelica, [facility] [place] [facility] PATIENT FINANCIAL 2022-07-19 15:07:09 Doctor Angelica, [facility] POLICY [facility] HOME HEALTH - OTHER 2022-07-05 06:01:00 Frances Hicks rshemant [facility] HOME HEALTH - OTHER 2022-06-27 06:01:00 Doctor Frances Dominguez rsity [facility] HOME HEALTH - OTHER 2022-05-31 06:01:00 Doctor Frances Dominguez rsity [facility] CT ABDOMEN/PELVIS WITHOUT 2022-05-14 10:30:00 Natalya Tom [facility] IV CONTRAST Center CT CHEST WITHOUT IV 2022-05-14 10:30:00 Natalya Tom [facility] S [facility] CONTRAST Center HOME HEALTH - OTHER 2022-05-09 06:01:00 Doctor Frances [facility] [place] [facility] [place] [facility] HOME HEALTH - OTHER 2022-04-25 06:01:00 Doctor Frances Dominguez rsity [facility] HOME HEALTH - OTHER 2022-04-12 06:01:00 Doctor Frances [facility] [place] [facility] [place] [facility] HOME HEALTH - OTHER 2022-04-04 06:01:00 Doctor Frances Dominguez rsity [facility] HOME HEALTH - OTHER 2022-03-15 06:01:00 Doctor Frances [facility] [place] [facility] HOME HEALTH - OTHER 2022-03-06 06:01:00 Doctor Frances Dominguez [facility] Name [facility] [place] DME/SUPPLY JUSTIFICATION 2022-02-19 05:01:00 Doctor Dominguez [facility] [place] [facility] HOME HEALTH - OTHER 2022-02-11 05:01:00 Frances Hicks [facility] Name [facility] [place] CORTISOL AM 2022-02-01 13:55:00 Abdiaziz Desai [facility] FREE T4 2022-02-01 13:55:00 Abdiaziz Desai [facility] TRIIODOTHYRONINE 2022-02-01 13:55:00 Abdiaziz Desai [facility] THYROID STIMULATING 2022-02-01 13:55:00 Abdiaziz Desai [facility] HORMONE Medical Branch COMP. METABOLIC PANEL 2022-02-01 13:55:00 Abdiaziz Desai [facility] ([id number]) Medical Branch LIPID PANEL ([id number])(TOTAL 2022-02-01 13:55:00 Abdiaziz Desai [facility] CHOLESTEROL, Medical Branch TRIGLYCERIDES, HDL) CBC WITH DIFF 2022-02-01 13:55:00 Abdiaziz Desai [facility] LOW-DENSITY LIPOPROTEIN, 2022-02-01 13:55:00 Abdiaziz Desai [facility] DIRECT [facility] POCT HEMOGLOBIN A1C TEST 2022-01-31 18:16:00 Abdiaziz Desai [facility] HOME HEALTH - OTHER 2022-01-21 05:01:00 Frances Hicks [facility] [place] CONSENT/REFUSAL FOR 2022-01-09 05:01:[address] [facility] [facility] DIAGNOSIS AND TREATMENT [place] [facility] COVID-19 (MOLECULAR 2022-01-08 16:40:00 Salena Benitez [facility] TESTING Medical Branch NUCLEIC ACID AMPLIFICATION) HOME HEALTH - OTHER 2021-12-28 05:01:00 Frances Hicks [facility] Name Medical Branch HOME HEALTH - OTHER 2021-12-17 05:01:00 Frances Hicks [facility] Name Medical Branch CT ABDOMEN/PELVIS WITHOUT 2021-12-13 11:22:[address] [facility] IV CONTRAST Center CT CHEST WITHOUT IV 2021-12-13 11:22:00 Yen, Natalya Alberto [facility] S [facility] CONTRAST [place] CBC W/PLT COUNT & AUTO 2021-10-20 09:46:00 Yen, Natalya Alberto CH I [facility] DIFFERENTIAL Center COMPREHENSIVE METABOLIC 2021-10-20 09:46:00 Yen, Luis FernandoAdycarol Gaomeño [place] [facility] PANEL Center CBC W/PLT COUNT & AUTO 2021-10-20 09:46:00 Yen, Natalya Gaomeño CH I [facility] DIFFERENTIAL Center CT ABDOMEN/PELVIS WITH & 2021-08-28 12:30:00 Yen, Natalya Remy [facility] WITHOUT IV CONTRAST Center CT CHEST WITH & WITHOUT IV 2021-08-28 12:30:00 Yen, Luis FernandoAdy zuniga [facility] CONTRAST Center POCT-CREATININE 2021-08-28 12:25:00 Yen, Natalya Alberto [facility] CT CHEST WITHOUT IV 2021-06-07 12:35:00 Yen, Natalya Alberto [facility] CONTRAST Center CT ABDOMEN/PELVIS WITHOUT 2021-06-07 12:35:00 Yen, Natalya Alberto [facility] IV CONTRAST Center Plan of Care Planned Activity Planned Date Details Comments Source Future Scheduled 2023-12-[address] [facility] 00:00:00 [facility] Scre[facility] (12+) [code = Tobacco Cessation Counseling and Screening (12+)] Future Scheduled 2023-12-[address] [facility] 00:00:00 [facility] Screening (12+) [code = Tobacco Cessation Counseling and Screening (12+)] Future Scheduled 2023-12-[address] [facility] Test 00:00:00 [facility] Screening (12+) [code = Tobacco Cessation Counseling and Screening (12+)] Future Scheduled 2023-12-[address] [facility] Test 00:00:00 [facility] r Screening (12+) [code = Tobacco Cessation Counseling and Screening (12+)] Future Scheduled 2023-09-[address] [facility] Test 00:00:00 [facility] Cent[facility] r Screening (12+) [code = Tobacco Cessation Counseling and Screening (12+)] Future Scheduled 2023-09-[address] [facility] Test 00:00:00 [facility]ing [facility] Medical Cente r Screening (12+) [code = Tobacco Cessation Counseling and Screening (12+)] Future Scheduled 2022-12-31 Screening for [facility] 08:58:37 malignant neoplasm of colon (procedure) [code = 555664949] Future Scheduled 2022-12-31 Screening for [facility] 08:58:37 malignant neoplasm of colon (procedure) [code = 047951058] Future Scheduled 2022-12-31 Screening for [facility] 08:58:37 malignant neoplasm of colon (procedure) [code = 874307995] Future Scheduled 2022-12-31 [facility]19 [facility]58[facility]37 [code = COVID-19 VACCINE (#1)] Future Scheduled 2022-12-31 Screening for [facility] 08:58:37 malignant neoplasm of colon (procedure) [code = 360940701] Future Scheduled 2022-12-31 Screening for [facility] 08:58:37 malignant neoplasm of colon (procedure) [code = 981202992] Future Scheduled 2022-12-31 SHINGLES VACCINES (1 [facility] 08:58:37 of 2) [code = SHINGLES VACCINES (1 of 2)] Future Scheduled 2022-12-31 65+ [facility]CCAL [facility] 08:58:37 VACCINE (1 - PCV) [code = 65+ PNEUMOCOCCAL VACCINE (1 - PCV)] Future Scheduled 2022-12-31 INFLUENZA VACCINE (#[facility]) [facility] 08:58:37 [code = INFLUENZA VACCINE (#1)] Future Scheduled 2022-12-31 Screening for [facility] 08:58:37 malignant neoplasm of colon (procedure) [code = 651117705] Future Scheduled 2022-12-31 Screening for [facility] 08:58:37 malignant neoplasm of colon (procedure) [code = 847592368] Future Scheduled 2022-12-31 Screening for [facility] 08:58:37 malignant neoplasm of colon (procedure) [code = 074858006] Future Scheduled 2022-12-31 COVID-19 VACCINE (#[facility]) [facility] 08:58:37 [code = COVID-19 VACCINE (#1)] Future Scheduled 2022-12-31 Screening for [facility] 08:58:37 malignant neoplasm of colon (procedure) [code = 585723547] Future Scheduled 2022-12-31 Screening for [facility] 08:58:37 malignant neoplasm of colon (procedure) [code = 399244005] Future Scheduled 2022-12-31 SHINGLES VACCINES (1 [facility] 08:58:37 of 2) [code = SHINGLES VACCINES (1 of 2)] Future Scheduled 2022-12-31 65+ [facility]OCOCCAL [facility] 08:58:37 VACCINE (1 - PCV) [code = 65+ PNEUMOCOCCAL VACCINE (1 - PCV)] Future Scheduled 2022-12-31 INFLUENZA VACCINE (#1) [facility] 08:58:37 [code = INFLUENZA VACCINE (#1)] Future Scheduled 2022-12-[address] [facility] 00:00:00 (Season Ended) [code = Medic al Center INFLUENZA VACCINE (Season Ended)] Future Scheduled 2022-12-[address] [facility] 00:00:00 (Season Ended) [code = Medic al Center INFLUENZA VACCINE (Season Ended)] Future Scheduled 2022-12-[address] [facility] 00:00:00 (Season Ended) [code = Medic al Center INFLUENZA VACCINE (Season Ended)] Future Scheduled 2022-12-[address] [facility] 00:00:00 (Season Ended) [code = Medic al Center INFLUENZA VACCINE (Season Ended)] Future Scheduled 2022-12-[address] [facility] 00:00:00 (Season Ended) [code = Medic al Center INFLUENZA VACCINE (Season Ended)] Future Scheduled 2022-12-[address] [facility] 00:00:00 (Season Ended) [code = Medic al Center Influenza Vaccine (Season Ended)] Future Scheduled 2022-12-28 Influenza Vaccine (#1) [facility]00 [code = Influenza Medical Ce nter Vaccine (#1)] Future Scheduled 2022-12-28 Influenza Vaccine (#1) [facility] 00:00:00 [code = Influenza Medical Ce nter Vaccine (#1)] Future Scheduled 2022-12-28 Influenza Vaccine (#1) [facility] 00:00:00 [code = Influenza Medical Ce nter Vaccine (#1)] Future Scheduled 2022-12-28 Influenza Vaccine (#1) [facility] 00:00:00 [code = Influenza Medical Ce nter Vaccine (#1)] Future Scheduled 2022-12-28 Influenza Vaccine (#1) [facility] 00:00:00 [code = Influenza Medical Ce nter Vaccine (#1)] Future Scheduled 2022-05-29 Urine screening for [facility] 00:00:00 protein (procedure) Medical Center [code = 543397222] Future Scheduled 2022-05-29 Urine screening for [facility] 00:00:00 protein (procedure) Medical Center [code = 364459847] Future Scheduled 2022-05-29 Urine screening for [facility] 00:00:00 protein (procedure) Medical Center [code = 840943420] Future Scheduled 2022-05-29 Urine screening for [facility] 00:00:00 protein (procedure) Medical Center [code = 835023501] Future Scheduled 2022-05-29 Urine screening for [facility] 00:00:00 protein (procedure) Medical Center [code = 055141845] Future Scheduled 2022-05-29 Urine screening for [facility] 00:00:00 protein (procedure) Medical Center [code = 338922656] Future Scheduled 2022-05-29 Urine screening for [facility] 00:00:00 protein (procedure) Medical Center [code = 752722749] Future Scheduled 2022-05-29 Urine screening for [facility] 00:00:00 protein (procedure) Medical Center [code = 866424587] Future Scheduled 2022-05-29 Urine screening for [facility] 00:00:00 protein (procedure) Medical Center [code = 683742388] Future Scheduled 2022-05-29 Urine screening for [facility] 00:00:00 protein (procedure) Medical Center [code = 552484825] Future Scheduled 2022-05-29 Urine screening for [facility] 00:00:00 protein (procedure) Medical Center [code = 598374599] Future Scheduled 2022-05-29 Urine screening for [facility] 00:00:00 protein (procedure) Medical Center [code = 547080969] Future Scheduled 2022-05-29 Urine screening for [facility] 00:00:00 protein (procedure) Medical Center [code = 322704319] Future Scheduled 2022-05-29 Urine screening for [facility] 00:00:00 protein (procedure) Medical Center [code = 780586357] Future Scheduled 2022-05-29 Urine screening for [facility] 00:00:00 protein (procedure) Medical Center [code = 806811957] Future Scheduled 2022-05-29 Urine screening for [facility] 00:00:00 protein (procedure) Medical Center [code = 678768203] Future Scheduled 2022-05-29 Urine screening for [facility] 00:00:00 protein (procedure) Medical Center [code = 367624484] Future Scheduled 2022-05-29 Urine screening for [facility] 00:00:00 protein (procedure) Medical Center [code = 900158099] Future Scheduled 2022-05-29 Urine screening for [facility] 00:00:00 protein (procedure) Medical Center [code = 000309364] Future Scheduled 2022-04-[address] [facility] 00:00:00 (12+) [code = Medical Center DEPRESSION SCREENING (12+)] Future Scheduled 2022-04-29 FALLS RISK SCREENING [facility] 00:00:00 [code = FALLS RISK Medical C enter SCREENING] Future Scheduled 2022-04-[address] [facility] 00:00:00 (12+) [code = Medical Center DEPRESSION SCREENING (12+)] Future Scheduled 2022-04-29 FALLS RISK SCREENING [facility] 00:00:00 [code = FALLS RISK Medical C enter SCREENING] Future Scheduled 2022-04-[address] [facility] 00:00:00 (12+) [code = Medical Center DEPRESSION SCREENING (12+)] Future Scheduled 2022-04-29 FALLS RISK SCREENING [facility] 00:00:00 [code = FALLS RISK Medical C enter SCREENING] Future Scheduled 2022-04-[address] [facility] 00:00:00 (12+) [code = Medical Center DEPRESSION SCREENING (12+)] Future Scheduled 2022-04-29 F[address]S RISK SCREENING [facility] 00:00:00 [code = FALLS RISK Medical C enter SCREENING] Future Scheduled 2022-04-[address] [facility] 00:00:00 (12+) [code = Medical Center DEPRESSION SCREENING (12+)] Future Scheduled 2022-04-29 F[address]S [address]ISK SCREENING [facility] 00:00:00 [code = FALLS RISK Medical C enter SCREENING] Future Scheduled 2022-04-[address] [facility] 00:00:00 (12+) [code = Medical Center DEPRESSION SCREENING (12+)] Future Scheduled 2022-04-29 FALLS RISK SCREENING [facility] 00:00:00 [code = FALLS RISK Medical C enter SCREENING] Future Scheduled 2022-04-[address] [facility] 00:00:00 (12+) [code = Medical Center DEPRESSION SCREENING (12+)] Future Scheduled 2022-04-29 FALLS RISK SCREENING [facility] 00:00:00 [code = FALLS RISK Medical C enter SCREENING] Future Scheduled 2022-03-02 HEPATITIS B VACCINES Met [facility] Test 06:51:04 (1 of 3 - 3-dose series) [code = HEPATITIS B VACCINES (1 of 3 - 3-dose series)] Future Scheduled 2022-03-02 COVID-19 VACCINE (#1) [facility] Test 06:51:04 [code = COVID-19 VACCINE (#1)] Future Scheduled 2022-03-02 COLONOSCOPY SCREENING [facility] Test 06:51:04 [code = COLONOSCOPY SCREENING] Future Scheduled 2022-03-02 SHINGLES VACCINES (1 Met [facility] Test 06:51:04 of 2) [code = SHINGLES VACCINES (1 of 2)] Future Scheduled 2022-03-02 65[facility]:51:04 VACCINE (1 - PCV) [code = 65+ PNEUMOCOCCAL VACCINE (1 - PCV)] Future Scheduled 2022-03-02 [facility]INE [facility] 06:51:04 [code = INFLUENZA VACCINE] Future Scheduled 2021-12-28 INFLUENZA VACCINE (#1) [facility] 00:00:00 [code = INFLUENZA Medical Ce nter VACCINE (#1)] Future Scheduled 2021-12-28 INFLUENZA VACCINE (#1) [facility] 00:00:00 [code = INFLUENZA Medical Ce nter VACCINE (#1)] Future Scheduled 2021-12-28 INFLUENZA VACCINE (#1) [facility] 00:00:00 [code = INFLUENZA Medical Ce nter VACCINE (#1)] Future Scheduled 2021-12-28 INFLUENZA VACCINE (#1) [facility] 00:00:00 [code = INFLUENZA Medical Ce nter VACCINE (#1)] Future Scheduled 2021-12-28 INFLUENZA VACCINE (#1) [facility] 00:00:00 [code = INFLUENZA Medical Ce nter VACCINE (#1)] Future Scheduled 2021-12-28 INFLUENZA VACCINE (#1) [facility] 00:00:00 [code = INFLUENZA Medical Ce nter VACCINE (#1)] Future Scheduled 2021-12-28 INFLUENZA VACCINE (#1) [facility] 00:00:00 [code = INFLUENZA Medical Ce nter VACCINE (#1)] Future Scheduled 2021-12-28 INFLUENZA VACCINE (#1) [facility] 00:00:00 [code = INFLUENZA Medical Ce nter VACCINE (#1)] Future Scheduled 2021-04-[address] [facility] Test 00:00:00 (12+) [code = Medical Center DEPRESSION SCREENING (12+)] Future Scheduled 2021-04-29 F[address]S [address]K SCREENING [facility] Test 00:00:00 [code = FALLS RISK Medical C enter SCREENING] Future Scheduled 2021-04-[address] [facility] Test 00:00:00 (12+) [code = Medical Center DEPRESSION SCREENING (12+)] Future Scheduled 2021-04-29 F[address]S [address]K SCREENING [facility] Test 00:00:00 [code = FALLS RISK Medical C enter SCREENING] Future Scheduled 2021-04-[address] [facility] Test 00:00:00 (12+) [code = Medical Center DEPRESSION SCREENING (12+)] Future Scheduled 2021-04-29 [address] SCREENING [facility] Test 00:00:00 [code = FALLS RISK Medical C enter SCREENING] Future Scheduled 2021-04-[address] [facility] Test 00:00:00 (12+) [code = Medical Center DEPRESSION SCREENING (12+)] Future Scheduled 2021-04-29 [address] SCREENING [facility] Test 00:00:00 [code = FALLS RISK Medical C enter SCREENING] Future Scheduled 2021-04-[address] [facility] Test 00:00:00 (12+) [code = Medical Center DEPRESSION SCREENING (12+)] Future Scheduled 2021-04-29 [address] SCREENING [facility] Test 00:00:00 [code = FALLS RISK Medical C enter SCREENING] Future Scheduled 2021-04-[address] [facility] Test 00:00:00 (12+) [code = Medical Center DEPRESSION SCREENING (12+)] Future Scheduled 2021-04-[address] [facility] Test 00:00:00 [code = FALLS RISK Medical C enter SCREENING] Future Scheduled [address] [facility] Test 00:00:00 [facility] Screening (12+) [code = Tobacco Cessation Counseling and Screening (12+)] Future Scheduled [address] [facility] Test 00:00:00 [facility] Screening (12+) [code = Tobacco Cessation Counseling and Screening (12+)] Future Scheduled [address] [facility] Test 00:00:00 [facility] Screening (12+) [code = Tobacco Cessation Counseling and Screening (12+)] Future Scheduled [address] [facility] Test 00:00:00 [facility] Screening (12+) [code = Tobacco Cessation Counseling and Screening (12+)] Future Scheduled [address] [facility] Test 00:00:00 [facility]ing and [facility] Cent[facility] Screening (12+) [code = Tobacco Cessation Counseling and Screening (12+)] Future Scheduled [address] [facility] Test 00:00:00 [facility] Cent[facility] Screening (12+) [code = Tobacco Cessation Counseling and Screening (12+)] Future Scheduled [address] [facility] Test 00:00:00 [facility] and [facility] Cent[facility] Screening (12+) [code = Tobacco Cessation Counseling and Screening (12+)] Future Scheduled [address] [facility] Test 00:00:00 [facility] Screening (12+) [code = Tobacco Cessation Counseling and Screening (12+)] Future Scheduled [address] [facility] Test 00:00:00 [facility] and [facility] Cent[facility] Screening (12+) [code = Tobacco Cessation Counseling and Screening (12+)] Future Scheduled [address] [facility] Test 00:00:00 [facility]ing and Medical Cent[facility] r Screening (12+) [code = Tobacco Cessation Counseling and Screening (12+)] Future Scheduled [address] [facility] Test 00:00:00 [facility]ing and Medical Cent[facility] r Screening (12+) [code = Tobacco Cessation Counseling and Screening (12+)] Future Scheduled 2021-01-12 COVID-19 VACCINE (3 [facility] Pfizer risk series) Medical Center [code = COVID-19 VACCINE (3 - Pfizer risk series)] Future Scheduled 2021-01-12 COVID-19 VACCINE (3 - [facility] Pfizer risk series) Medical Center [code = COVID-19 VACCINE (3 - Pfizer risk series)] Future Scheduled 2021-01-12 COVID-19 VACCINE (3 - [facility] Pfizer risk series) [facility] Center [code = COVID-19 VACCINE (3 - Pfizer risk series)] Future Scheduled 2021-01-12 COVID-19 VACCINE (3 - [facility] Pfizer risk series) [facility] Center [code = COVID-19 VACCINE (3 - Pfizer risk series)] Future Scheduled 2021-01-12 COVID-19 VACCINE (3 - [facility] 00:00:[facility] Pfizer risk series) Medical Center [code = COVID-19 VACCINE (3 - Pfizer risk series)] Future Scheduled 2021-01-12 COVID-19 VACCINE (3 - [facility] 00:00:[facility] Pfizer risk series) Medical Center [code = COVID-19 VACCINE (3 - Pfizer risk series)] Future Scheduled 2021-01-12 COVID-19 VACCINE (3 - [facility] 00:00:[facility] Pfizer risk series) Medical Center [code = COVID-19 VACCINE (3 - Pfizer risk series)] Future Scheduled 2021-01-12 COVID-19 VACCINE (3 - [facility] 00:[facility] Pfizer risk series) Medical Center [code = COVID-19 VACCINE (3 - Pfizer risk series)] Future Scheduled 2021-01-12 COVID-19 VACCINE (3 - [facility] 00:00:[facility] Pfizer risk series) Medical Center [code = COVID-19 VACCINE (3 - Pfizer risk series)] Future Scheduled 2021-01-12 COVID-19 VACCINE (3 - [facility] 00:00:[facility] Pfizer risk series) Medical Center [code = COVID-19 VACCINE (3 - Pfizer risk series)] Future Scheduled 2021-01-12 COVID-19 VACCINE (3 - [facility] 00:00:[facility] Pfizer risk series) Medical Center [code = COVID-19 VACCINE (3 - Pfizer risk series)] Future Scheduled 2021-01-12 COVID-19 VACCINE (3 - [facility] 00:00:[facility] Pfizer risk series) Medical Center [code = COVID-19 VACCINE (3 - Pfizer risk series)] Future Scheduled 2021-01-12 COVID-19 VACCINE (3 - [facility] 00:00:[facility] Pfizer risk series) Medical Center [code = COVID-19 VACCINE (3 - Pfizer risk series)] Future Scheduled 2021-01-12 COVID-19 VACCINE (3 - [facility] 00:00:[facility] Pfizer risk series) Medical Center [code = COVID-19 VACCINE (3 - Pfizer risk series)] Future Scheduled 2021-01-12 COVID-19 VACCINE (3 - [facility] 00:00:[facility] Pfizer risk series) Medical Center [code = COVID-19 VACCINE (3 - Pfizer risk series)] Future Scheduled 2021-01-12 COVID-19 VACCINE (3 - [facility] 00:00:[facility] Pfizer risk series) Medical Center [code = COVID-19 VACCINE (3 - Pfizer risk series)] Future Scheduled 2021-01-12 COVID-19 VACCINE (3 - [facility] 00:00:[facility] Pfizer risk series) Medical Center [code = COVID-19 VACCINE (3 - Pfizer risk series)] Future Scheduled 2021-01-12 COVID-19 VACCINE (3 - [facility] 00:00:[facility] Pfizer risk series) Medical Center [code = COVID-19 VACCINE (3 - Pfizer risk series)] Future Scheduled 2021-01-12 COVID-19 VACCINE (3 - [facility] 00:00:00 Pfizer risk series) Medical Center [code = COVID-19 VACCINE (3 - Pfizer risk series)] Future Scheduled 2020-08-[address] [facility] 00:[facility]00 measurement Medical Center (procedure) [code = [id number]] Future Scheduled 2020-08-[address] [facility] 00:00:00 measurement Medical Center (procedure) [code = 44430536] Future Scheduled 2020-08-[address] [facility] 00:00:00 measurement Medical Center (procedure) [code = [id number]] Future Scheduled 2020-08-[address] [facility] 00:00:00 measurement [facility] Center (procedure) [code = 94376783] Future Scheduled 2020-08-[address] [facility] 00:00:00 measurement [facility] (procedure) [code = 54634689] Future Scheduled 2020-08-[address] [facility] 00:00:00 measurement [facility] Center (procedure) [code = 07542943] Future Scheduled 2020-08-[address] [facility] 00:00:00 measurement [facility] Center (procedure) [code = 35015166] Future Scheduled 2020-08-[address] [facility] 00:00:00 measurement [facility] (procedure) [code = 91110669] Future Scheduled 2020-08-[address] [facility] 00:00:00 measurement Medical Center (procedure) [code = 83387501] Future Scheduled 2020-08-[address] [facility] 00:00:00 measurement [facility] Center (procedure) [code = 89462900] Future Scheduled 2020-08-[address] [facility] 00:00:00 measurement [facility] Center (procedure) [code = 99859760] Future Scheduled 2020-08-[address] [facility] 00:00:00 measurement [facility] Center (procedure) [code = 32865661] Future Scheduled 2020-08-[address] [facility] 00:00:00 measurement [facility] (procedure) [code = 36730485] Future Scheduled 2020-05-[address] [facility] 00:00:00 measurement [facility] Center (procedure) [code = 12544195] Future Scheduled 2020-05-[address] [facility] 00:00:00 measurement Medical Center (procedure) [code = 48006363] Future Scheduled 2020-05-[address] [facility] 00:00:00 measurement [facility] Center (procedure) [code = 70808458] Future Scheduled 2020-05-[address] [facility] 00:00:00 measurement Medical Center (procedure) [code = 18264825] Future Scheduled 2020-05-[address] [facility] 00:00:00 measurement Medical Center (procedure) [code = 67899099] Future Scheduled 2020-05-[address] [facility] 00:00:00 measurement Medical Center (procedure) [code = 20244027] Future Scheduled 2014-01-[address] [facility] 00:00:00 WELLNESS (YEAR 2 or Medical Center FIRST YEAR if no IPPE) [code = MEDICARE ANNUAL WELLNESS (YEAR 2 or FIRST YEAR if no IPPE)] Future Scheduled 2014-01-[address] [facility] 00:00:00 WELLNESS (YEAR 2 or Medical Center FIRST YEAR if no IPPE) [code = MEDICARE ANNUAL WELLNESS (YEAR 2 or FIRST YEAR if no IPPE)] Future Scheduled 2014-01-[address] [facility] 00:00:00 WELLNESS (YEAR 2 or Medical Center FIRST YEAR if no IPPE) [code = MEDICARE ANNUAL WELLNESS (YEAR 2 or FIRST YEAR if no IPPE)] Future Scheduled 2014-01-[address] [facility] 00:00:00 WELLNESS (YEAR 2 or Medical Center FIRST YEAR if no IPPE) [code = MEDICARE ANNUAL WELLNESS (YEAR 2 or FIRST YEAR if no IPPE)] Future Scheduled 2014-01-[address] [facility] 00:00:00 WELLNESS (YEAR 2 or Medical Center FIRST YEAR if no IPPE) [code = MEDICARE ANNUAL WELLNESS (YEAR 2 or FIRST YEAR if no IPPE)] Future Scheduled 2014-01-[address] [facility] 00:00:00 WELLNESS (YEAR 2 or Medical Center FIRST YEAR if no IPPE) [code = MEDICARE ANNUAL WELLNESS (YEAR 2 or FIRST YEAR if no IPPE)] Future Scheduled 2014-01-[address] [facility] 00:00:00 WELLNESS (YEAR 2 or Medical Center FIRST YEAR if no IPPE) [code = MEDICARE ANNUAL WELLNESS (YEAR 2 or FIRST YEAR if no IPPE)] Future Scheduled 2014-01-[address] [facility] 00:00:00 WELLNESS (YEAR 2 or Medical Center FIRST YEAR if no IPPE) [code = MEDICARE ANNUAL WELLNESS (YEAR 2 or FIRST YEAR if no IPPE)] Future Scheduled 2014-01-[address] [facility] 00:00:00 WELLNESS (YEAR 2 or Medical Center FIRST YEAR if no IPPE) [code = MEDICARE ANNUAL WELLNESS (YEAR 2 or FIRST YEAR if no IPPE)] Future Scheduled 2014-01-[address] [facility] 00:00:00 WELLNESS (YEAR 2 or Medical Center FIRST YEAR if no IPPE) [code = MEDICARE ANNUAL WELLNESS (YEAR 2 or FIRST YEAR if no IPPE)] Future Scheduled 2014-01-[address] [facility] 00:00:00 WELLNESS (YEAR 2 or Medical Center FIRST YEAR if no IPPE) [code = MEDICARE ANNUAL WELLNESS (YEAR 2 or FIRST YEAR if no IPPE)] Future Scheduled 2014-01-[address] [facility] 00:00:00 WELLNESS (YEAR 2 or Medical Center FIRST YEAR if no IPPE) [code = MEDICARE ANNUAL WELLNESS (YEAR 2 or FIRST YEAR if no IPPE)] Future Scheduled 2014-01-[address] [facility] 00:00:00 WELLNESS (YEAR 2 or Medical Center FIRST YEAR if no IPPE) [code = MEDICARE ANNUAL WELLNESS (YEAR 2 or FIRST YEAR if no IPPE)] Future Scheduled 2014-01-[address] [facility] 00:00:00 WELLNESS (YEAR 2 or Medical Center FIRST YEAR if no IPPE) [code = MEDICARE ANNUAL WELLNESS (YEAR 2 or FIRST YEAR if no IPPE)] Future Scheduled 2014-01-[address] [facility] 00:00:00 WELLNESS (YEAR 2 or Medical Center FIRST YEAR if no IPPE) [code = MEDICARE ANNUAL WELLNESS (YEAR 2 or FIRST YEAR if no IPPE)] Future Scheduled 2014-01-[address] [facility] 00:00:00 WELLNESS (YEAR 2 or Medical Center FIRST YEAR if no IPPE) [code = MEDICARE ANNUAL WELLNESS (YEAR 2 or FIRST YEAR if no IPPE)] Future Scheduled 2014-01-[address] [facility] 00:00:00 WELLNESS (YEAR 2 or Medical Center FIRST YEAR if no IPPE) [code = MEDICARE ANNUAL WELLNESS (YEAR 2 or FIRST YEAR if no IPPE)] Future Scheduled 2014-01-[address] [facility] 00:00:00 WELLNESS (YEAR 2 or Medical Center FIRST YEAR if no IPPE) [code = MEDICARE ANNUAL WELLNESS (YEAR 2 or FIRST YEAR if no IPPE)] Future Scheduled 2014-01-[address] [facility] 00:00:00 WELLNESS (YEAR 2 or Medical Center FIRST YEAR if no IPPE) [code = MEDICARE ANNUAL WELLNESS (YEAR 2 or FIRST YEAR if no IPPE)] Future Scheduled 1998-02-24 SHINGLES VACCINES ([address] [facility] 00:00:00 of 2) [code = SHINGLES Medic al Center VACCINES (1 of 2)] Future Scheduled 1998-02-24 SHINGLES VACCINES ([address] [facility] 00:00:00 of 2) [code = SHINGLES Medic al Center VACCINES (1 of 2)] Future Scheduled 1998-02-24 SHINGLES VACCINES ([address] [facility] 00:00:00 of 2) [code = SHINGLES Medic al Center VACCINES (1 of 2)] Future Scheduled 1998-02-24 SHINGLES VACCINES ([address] [facility] 00:00:00 of 2) [code = SHINGLES Medic al Center VACCINES (1 of 2)] Future Scheduled 1998-02-24 SHINGLES VACCINES ([address] [facility] 00:00:00 of 2) [code = SHINGLES Medic al Center VACCINES (1 of 2)] Future Scheduled 1998-02-24 SHINGLES VACCINES ([address] [facility] 00:00:00 of 2) [code = SHINGLES Medic al Center VACCINES (1 of 2)] Future Scheduled 1998-02-24 SHINGLES VACCINES ([address] [facility] 00:00:00 of 2) [code = SHINGLES Medic al Center VACCINES (1 of 2)] Future Scheduled 1998-02-24 SHINGLES VACCINES ([address] [facility] 00:00:00 of 2) [code = SHINGLES Medic al Center VACCINES (1 of 2)] Future Scheduled 1967-02-24 DTAP/TDAP/TD [facility]ACCINES [facility] 00:00:00 (1 - Tdap) [code = Medical C enter DTAP/TDAP/TD VACCINES (1 - Tdap)] Future Scheduled 1967-02-24 DTAP/TDAP/TD [facility]ACCINES [facility] 00:00:00 (1 - Tdap) [code = Medical C enter DTAP/TDAP/TD VACCINES (1 - Tdap)] Future Scheduled 1967-02-24 DTAP/TDAP/TD [facility]ACCINES [facility] 00:00:00 (1 - Tdap) [code = Medical C enter DTAP/TDAP/TD VACCINES (1 - Tdap)] Future Scheduled 1967-02-24 DTAP/TDAP/TD [facility]ACCINES [facility] 00:00:00 (1 - Tdap) [code = Medical C enter DTAP/TDAP/TD VACCINES (1 - Tdap)] Future Scheduled 1967-02-24 DTAP/TDAP/TD VACCINES [facility] 00:00:00 (1 - Tdap) [code = Medical C enter DTAP/TDAP/TD VACCINES (1 - Tdap)] Future Scheduled 1967-02-24 DTAP/TDAP/TD [facility]ACCINES [facility] 00:00:00 (1 - Tdap) [code = Medical C enter DTAP/TDAP/TD VACCINES (1 - Tdap)] Future Scheduled 1967-02-24 DTAP/TDAP/TD VACCINES [facility] 00:00:00 (1 - Tdap) [code = Medical C enter DTAP/TDAP/TD VACCINES (1 - Tdap)] Future Scheduled 1967-02-24 DTAP/TDAP/TD VACCINES [facility] 00:00:00 (1 - Tdap) [code = Medical C enter DTAP/TDAP/TD VACCINES (1 - Tdap)] Future Scheduled 1967-02-24 SHINGLES VACCINES ([address] [facility] 00:00:00 of 2) [code = SHINGLES Medic al Center VACCINES (1 of 2)] Future Scheduled 1967-02-24 DTAP/TDAP/TD VACCINES [facility] 00:00:00 (1 - Tdap) [code = Medical C enter DTAP/TDAP/TD VACCINES (1 - Tdap)] Future Scheduled 1967-02-24 SHINGLES VACCINES ([address] [facility] 00:00:00 of 2) [code = SHINGLES Medic al Center VACCINES (1 of 2)] Future Scheduled 1967-02-24 DTAP/TDAP/TD VACCINES [facility] 00:00:00 (1 - Tdap) [code = Medical C enter DTAP/TDAP/TD VACCINES (1 - Tdap)] Future Scheduled 1967-02-24 SHINGLES VACCINES ([address] [facility] 00:00:00 of 2) [code = SHINGLES Medic al Center VACCINES (1 of 2)] Future Scheduled 1967-02-24 DTAP/TDAP/TD VACCINES [facility] 00:00:00 (1 - Tdap) [code = Medical C enter DTAP/TDAP/TD VACCINES (1 - Tdap)] Future Scheduled 1967-02-24 SHINGLES VACCINES ([address] [facility] 00:00:00 of 2) [code = SHINGLES Medic al Center VACCINES (1 of 2)] Future Scheduled 1967-02-24 DTAP/TDAP/TD VACCINES [facility] 00:00:00 (1 - Tdap) [code = Medical C enter DTAP/TDAP/TD VACCINES (1 - Tdap)] Future Scheduled 1967-02-24 SHINGLES VACCINES ([address] [facility] 00:00:00 of 2) [code = SHINGLES Medic al Center VACCINES (1 of 2)] Future Scheduled 1967-02-24 DTAP/TDAP/TD VACCINES [facility] 00:00:00 (1 - Tdap) [code = Medical C enter DTAP/TDAP/TD VACCINES (1 - Tdap)] Future Scheduled 1967-02-24 SHINGLES VACCINES ([address] [facility] 00:00:00 of 2) [code = SHINGLES Medic al Center VACCINES (1 of 2)] Future Scheduled 1967-02-24 DTAP/TDAP/TD VACCINES [facility] 00:00:00 (1 - Tdap) [code = Medical C enter DTAP/TDAP/TD VACCINES (1 - Tdap)] Future Scheduled 1967-02-24 SHINGLES VACCINES ([address] [facility] 00:00:00 of 2) [code = SHINGLES Medic al Center VACCINES (1 of 2)] Future Scheduled 1967-02-24 DTAP/TDAP/TD [facility]ACCINES [facility] 00:00:00 (1 - Tdap) [code = Medical C enter DTAP/TDAP/TD VACCINES (1 - Tdap)] Future Scheduled 1967-02-24 SHINGLES VACCINES ([address] [facility] 00:00:00 of 2) [code = SHINGLES Medic al Center VACCINES (1 of 2)] Future Scheduled 1967-02-24 DTAP/TDAP/TD VACCINES [facility] 00:00:00 (1 - Tdap) [code = Medical C enter DTAP/TDAP/TD VACCINES (1 - Tdap)] Future Scheduled 1967-02-24 SHINGLES VACCINES ([address] [facility] 00:00:00 of 2) [code = SHINGLES Medic al Center VACCINES (1 of 2)] Future Scheduled 1967-02-24 DTAP/TDAP/TD [facility]ACCINES [facility] 00:00:00 (1 - Tdap) [code = Medical C enter DTAP/TDAP/TD VACCINES (1 - Tdap)] Future Scheduled 1967-02-24 DTAP/TDAP/TD VACCINES [facility] 00:00:00 (1 - Tdap) [code = Medical C enter DTAP/TDAP/TD VACCINES (1 - Tdap)] Future Scheduled 1967-02-24 SHINGLES VACCINES ([address] [facility] 00:00:00 of 2) [code = SHINGLES Medic al Center VACCINES (1 of 2)] Future Scheduled 1967-02-24 DTAP/TDAP/TD VACCINES [facility] 00:00:00 (1 - Tdap) [code = Medical C enter DTAP/TDAP/TD VACCINES (1 - Tdap)] Future Scheduled 1967-02-24 SHINGLES VACCINES ([address] [facility] 00:00:00 of 2) [code = SHINGLES Medic al Center VACCINES (1 of 2)] Future Scheduled 1966-02-24 HEPATITIS C SCREENING [facility] 00:00:00 [code = HEPATITIS C Medical Center SCREENING] Future Scheduled 1966-02-24 HEPATITIS C [facility]CRE[facility]ING [facility] 00:00:00 [code = HEPATITIS C Medical Center SCREENING] Future Scheduled 1966-02-24 HEPATITIS C [facility]CRE[facility]ING [facility] 00:00:00 [code = HEPATITIS C Medical Center SCREENING] Future Scheduled 1966-02-24 HEPATITIS C [facility]CRE[facility]ING [facility] 00:00:00 [code = HEPATITIS C Medical Center SCREENING] Future Scheduled 1966-02-24 HEPATITIS C [facility]CRE[facility]ING [facility] 00:00:00 [code = HEPATITIS C Medical Center SCREENING] Future Scheduled 1966-02-24 HEPATITIS C [facility]CRE[facility]ING [facility] 00:00:00 [code = HEPATITIS C Medical Center SCREENING] Future Scheduled 1966-02-24 HEPATITIS C [facility]CRE[facility]ING [facility] 00:00:00 [code = HEPATITIS C Medical Center SCREENING] Future Scheduled 1966-02-24 HEPATITIS C [facility]CRE[facility]ING [facility] 00:00:00 [code = HEPATITIS C Medical Center SCREENING] Future Scheduled 1966-02-24 HEPATITIS C [facility]CRE[facility]ING [facility] 00:00:00 [code = HEPATITIS C Medical Center SCREENING] Future Scheduled 1966-02-24 HEPATITIS C [facility]CRE[facility]ING [facility] 00:00:00 [code = HEPATITIS C Medical Center SCREENING] Future Scheduled 1966-02-24 HEPATITIS C [facility]CRE[facility]ING [facility] 00:00:00 [code = HEPATITIS C Medical Center SCREENING] Future Scheduled 1966-02-24 HEPATITIS C [facility]CRE[facility]ING [facility] 00:00:00 [code = HEPATITIS C Medical Center SCREENING] Future Scheduled 1966-02-24 HEPATITIS C [facility]CRE[facility]ING [facility] 00:00:00 [code = HEPATITIS C Medical Center SCREENING] Future Scheduled 1966-02-24 HEPATITIS C [facility]CRE[facility]ING [facility] 00:00:00 [code = HEPATITIS C Medical Center SCREENING] Future Scheduled 1966-02-24 HEPATITIS C [facility]CRE[facility]ING [facility] 00:00:00 [code = HEPATITIS C Medical Center SCREENING] Future Scheduled 1966-02-24 HEPATITIS C [facility]CRE[facility]ING [facility] 00:00:00 [code = HEPATITIS C Medical Center SCREENING] Future Scheduled 1966-02-24 HEPATITIS C [facility]CRE[facility]ING [facility] 00:00:00 [code = HEPATITIS C Medical Center SCREENING] Future Scheduled 1966-02-24 HEPATITIS C [facility]CRE[facility]ING [facility] 00:00:00 [code = HEPATITIS C Medical Center SCREENING] Future Scheduled 1966-02-24 HEPATITIS C [facility]CRE[facility]ING [facility] 00:00:00 [code = HEPATITIS C Medical Center SCREENING] Future Scheduled [address] [facility] 00:00:00 Counseling and Medical Cente r Screening (12+) [code = Tobacco Cessation Counseling and Screening (12+)] Future Scheduled 1958-02-[address] [facility] 00:00:00 [code = DIABETIC EYE Medical Center EXAM] Future Scheduled 1958-02-[address] [facility] examination Medical Center (regime/therapy) [code = [id number]] Future Scheduled 1958-02-[address] [facility] 00:00:00 [code = DIABETIC EYE Medical Center EXAM] Future Scheduled 1958-02-[address] [facility] 00:[facility]:00 examination Medical Center (regime/therapy) [code = [id number]] Future Scheduled 1958-02-[address] EX[address] [facility] 00:00:00 [code = DIABETIC EYE Medical Center EXAM] Future Scheduled 1958-02-[address] [facility] 00:[facility]:00 examination Medical Center (regime/therapy) [code = [id number]] Future Scheduled 1958-02-[address] EX[address] [facility] 00:00:00 [code = DIABETIC EYE Medical Center EXAM] Future Scheduled 1958-02-[address] [facility] 00:[facility]:00 examination Medical Center (regime/therapy) [code = [id number]] Future Scheduled 1958-02-[address]YE EX[address] [facility] 00:00:00 [code = DIABETIC EYE Medical Center EXAM] Future Scheduled 1958-02-[address] [facility] 00:00:00 examination Medical Center (regime/therapy) [code = [id number]] Future Scheduled 1958-02-[address] DIAB[address]IC EYE EXAM [facility] 00:00:00 [code = [facility]] Future Scheduled 1958-02-[address] [facility]00 [facility]therapy[facility] [code = [id number]] Future Scheduled 1958-02-[address] DI[address]YE EXAM [facility] 00:00:00 [code = [facility]] Future Scheduled 1958-02-[address] [facility] 00[facility]00:00 examination [facility] (regime[facility]therapy) [code = [id number]] Future Scheduled 1958-02-[address] [facility] 00:00:00 [code = DIABETIC EYE [facility] EXAM] Future Scheduled 1958-02-[address] [facility] examination [facility] (regime[facility]therapy) [code = 029096341] Future Scheduled 1958-02-[address] [facility] 00:00:00 [code = DIABETIC EYE Medical Center EXAM] Future Scheduled 1958-02-[address] [facility] examination [facility] (regime[facility]therapy) [code = 259566632] Future Scheduled 1958-02-[address] [facility] 00:00:00 [code = DIABETIC EYE Medical Center EXAM] Future Scheduled 1958-02-[address] [facility] examination [facility] (regime[facility]therapy) [code = 021133756] Future Scheduled 1958-02-[address] [facility] 00:00:00 [code = DIABETIC EYE Medical Center EXAM] Future Scheduled 1958-02-[address] [facility] examination [facility] (regime[facility]therapy) [code = 465828011] Future Scheduled 1958-02-[address] [facility] 00:00:00 [code = DIABETIC EYE Medical Center EXAM] Future Scheduled 1958-02-[address] [facility]00 examination [facility] (regime[facility]therapy) [code = 308655570] Future Scheduled 1958-02-[address] [facility] 00:00:00 [code = DIABETIC EYE [facility] EXAM] Future Scheduled 1958-02-[address] [facility] examination [facility] (regime[facility]therapy) [code = 044836893] Future Scheduled 1958-02-[address] [facility] 00:00:00 [code = DIABETIC EYE Medical Center EXAM] Future Scheduled 1958-02-[address] [facility] examination [facility] (regime/therapy) [code = 118298152] Future Scheduled 1958-02-[address] EX[address] [facility] 00:00:00 [code = DIABETIC EYE Medical Center EXAM] Future Scheduled 1958-02-[address] [facility]00 examination [facility] (regime/therapy) [code = 214985151] Future Scheduled 1958-02-[address] [facility] 00:00:00 [code = DIABETIC EYE Medical Center EXAM] Future Scheduled 1958-02-[address] EX[address] [facility] 00:00:00 [code = DIABETIC EYE [facility] EXAM] Future Scheduled 1958-02-[address] [facility]00 examination [facility] (regime[facility]therapy) [code = 821875181] Future Scheduled 1958-02-[address] [facility]00 examination [facility] (regime[facility]therapy) [code = 307562686] Future Scheduled 1958-02-[address] EX[address] [facility] 00:00:00 [code = DIABETIC EYE Medical Center EXAM] Future Scheduled 1958-02-[address] [facility]00 examination [facility] (regime/therapy) [code = 632066142] Future Scheduled 1958-02-[address] EX[address] [facility] 00:00:00 [code = DIABETIC EYE Medical Center EXAM] Future Scheduled 1958-02-[address] [facility]00 examination [facility] Center (regime/therapy) [code = 202585720] Future Scheduled 1948 Sigmoidoscopy [facility]] [facility] Future Scheduled [address] [facility] 00:[facility]:00 (combo) [code = CT Medical C enter Colonography (combo)] Future Scheduled [address] [facility] 00:[facility]:00 malignant [facility] colon (procedure) [code = 219402442] Future Scheduled [address] [facility] 00:00:00 [facility] colon (procedure) [code = 246288924] Future Scheduled [address] [facility] 00:00:00 [facility] colon (procedure) [code = 921162114] Future Scheduled [address] [facility] 00:00:00 [facility] colon (procedure) [code = 988394240] Future Scheduled 1948 S[facility]oidoscopy [facility]] [facility] Cent[facility] Future Scheduled [address] [facility] 00:00:00 (combo) [code = CT Medical C enter Colonography (combo)] Future Scheduled [address] [facility] 00:00:00 [facility] colon (procedure) [code = 361413693] Future Scheduled [address] [facility] 00:00:00 [facility] colon (procedure) [code = 792469934] Future Scheduled [address] [facility] 00:00:00 [facility] colon (procedure) [code = 297612775] Future Scheduled [address] [facility] 00:00:00 [facility] colon (procedure) [code = 905818573] Future Scheduled 1948 S[facility]oidoscopy [facility]] [facility] Cent[facility] Future Scheduled [address] [facility] 00:00:00 (combo) [code = CT Medical C enter Colonography (combo)] Future Scheduled [address] [facility] 00:00:00 [facility] colon (procedure) [code = 381513507] Future Scheduled [address] [facility] 00:00:00 [facility] colon (procedure) [code = 839231168] Future Scheduled [address] [facility] 00:00:00 [facility] colon (procedure) [code = 251178217] Future Scheduled [address] [facility] 00:00:00 [facility] colon (procedure) [code = 648693582] Future Scheduled 1948 Sigmoidoscopy [facility]] [facility] Cent[facility] Future Scheduled [address] [facility] 00:00:00 (combo) [code = CT Medical C enter Colonography (combo)] Future Scheduled [address] [facility] 00:00:00 (combo) [code = CT Medical C enter Colonography (combo)] Future Scheduled [address] [facility] 00:00:00 [facility] colon (procedure) [code = 506495475] Future Scheduled [address] [facility] 00:00:00 [facility] colon (procedure) [code = 955552150] Future Scheduled [address] [facility] 00:00:00 [facility] colon (procedure) [code = 285709290] Future Scheduled [address] [facility] 00:00:00 [facility] colon (procedure) [code = 240560817] Future Scheduled 1948 Sigmoidoscopy [facility]] [facility] Cent[facility] Future Scheduled [address] [facility] 00:00:00 [facility] colon (procedure) [code = 388872860] Future Scheduled [address] [facility] 00:00:00 [facility] colon (procedure) [code = 730533754] Future Scheduled [address] [facility] 00:00:00 [facility] colon (procedure) [code = 328556141] Future Scheduled [address] [facility] 00:00:00 malignant [facility] colon (procedure) [code = 568226302] Future Scheduled 1948 S[facility]oidoscopy [facility]] [facility] Future Scheduled [address] [facility] 00:00:00 (combo) [code = CT Medical C enter Colonography (combo)] Future Scheduled [address] [facility] 00:00:00 [facility] colon (procedure) [code = 563498448] Future Scheduled [address] [facility] 00:00:00 [facility] colon (procedure) [code = 843853255] Future Scheduled [address] [facility] 00:00:00 [facility] colon (procedure) [code = 677748456] Future Scheduled [address] [facility] 00:00:00 [facility] colon (procedure) [code = 138437969] Future Scheduled 1948 Sigmoidoscopy [facility]] [facility] Future Scheduled [address] [facility] 00:00:00 (combo) [code = CT Medical C enter Colonography (combo)] Future Scheduled [address] [facility] 00:00:00 [facility] colon (procedure) [code = 487787972] Future Scheduled [address] [facility] 00:00:00 [facility] colon (procedure) [code = 094308177] Future Scheduled [address] [facility] 00:00:00 [facility] colon (procedure) [code = 197687469] Future Scheduled [address] [facility] 00:00:00 [facility] colon (procedure) [code = 097232927] Future Scheduled 1948 S[facility]oidoscopy [facility] Future Scheduled [address] [facility] 00:00:00 (combo) [code = CT Medical C enter Colonography (combo)] Future Scheduled [address] [facility] 00:00:00 [facility] colon (procedure) [code = 680669397] Future Scheduled [address] [facility] 00:00:00 [facility] colon (procedure) [code = 323247300] Future Scheduled [address] [facility] 00:00:00 [facility] colon (procedure) [code = 714836838] Future Scheduled [address] [facility] 00:00:00 [facility] colon (procedure) [code = 366129777] Future Scheduled 1948 S[facility]oidoscopy [facility]] [facility] Future Scheduled [address] [facility] 00:00:00 (combo) [code = CT Medical C enter Colonography (combo)] Future Scheduled [address] [facility] 00:00:00 [facility] colon (procedure) [code = 379952841] Future Scheduled [address] [facility] 00:00:00 malignant [facility] colon (procedure) [code = 198688973] Future Scheduled [address] [facility] 00:00:00 [facility] colon (procedure) [code = 178410709] Future Scheduled [address] [facility] 00:00:00 [facility] colon (procedure) [code = 652688477] Future Scheduled 1948 S[facility]oidoscopy [facility]] Medical [place] Future Scheduled [address] [facility] 00:00:00 (combo) [code = CT Medical C enter Colonography (combo)] Future Scheduled [address] [facility] 00:00:00 malignant [facility] colon (procedure) [code = 946749529] Future Scheduled [address] [facility] 00:00:00 malignant neoplasm [facility] colon (procedure) [code = 517764620] Future Scheduled [address] [facility] 00:00:00 malignant [facility] colon (procedure) [code = 015040548] Future Scheduled [address] [facility] 00:00:00 malignant [facility] colon (procedure) [code = 012470929] Future Scheduled 1948 S[facility]oidoscopy [facility]] Medical [place] Future Scheduled [address] [facility] 00:00:00 (combo) [code = CT Medical C enter Colonography (combo)] Future Scheduled [address] [facility] 00:00:00 malignant [facility] colon (procedure) [code = 006203344] Future Scheduled [address] [facility] 00:00:00 malignant neoplasm [facility] colon (procedure) [code = 168865649] Future Scheduled [address] [facility] 00:00:00 malignant [facility] colon (procedure) [code = 607045146] Future Scheduled [address] [facility] 00:00:00 malignant [facility] colon (procedure) [code = 962565525] Future Scheduled 1948 Sigmoidoscopy [facility]] [facility] [place] Future Scheduled [address] [facility] 00:00:00 (combo) [code = CT Medical C enter Colonography (combo)] Future Scheduled [address] [facility] 00:00:00 malignant [facility] colon (procedure) [code = 383210957] Future Scheduled [address] [facility] 00:00:00 malignant ne[facility] colon (procedure) [code = 617066752] Future Scheduled [address] [facility] 00:00:00 malignant neoplasm [facility] colon (procedure) [code = 187322756] Future Scheduled [address] [facility] 00:00:00 malignant neoplasm [facility] colon (procedure) [code = 857745177] Future Scheduled 1948 S[facility]oidoscopy [facility]] [facility] Future Scheduled [address] [facility] 00:00:00 (combo) [code = CT Medical C enter Colonography (combo)] Future Scheduled [address] [facility] 00:00:00 malignant ne[facility] colon (procedure) [code = 615310718] Future Scheduled [address] [facility] 00:00:00 malignant ne[facility] colon (procedure) [code = 302694851] Future Scheduled [address] [facility] 00:00:00 malignant neoplasm [facility] colon (procedure) [code = 199815749] Future Scheduled [address] [facility] 00:00:00 malignant neoplasm of [facility] colon (procedure) [code = 848288885] Future Scheduled 1948 S[facility]oidoscopy [facility]] [facility] r Future Scheduled [address] [facility] 00:00:00 (combo) [code = CT Medical C enter Colonography (combo)] Future Scheduled [address] [facility] 00:00:00 malignant ne[facility] colon (procedure) [code = 704341047] Future Scheduled [address] [facility] 00:00:00 malignant neoplasm [facility] colon (procedure) [code = 494350971] Future Scheduled [address] [facility] 00:00:00 malignant neoplasm of [facility] colon (procedure) [code = 177065663] Future Scheduled [address] [facility] 00:00:00 malignant neoplasm of [facility] colon (procedure) [code = 021032939] Future Scheduled 1948 S[facility]oidoscopy [facility]] [facility] Future Scheduled [address] [facility] 00:00:00 (combo) [code = CT Medical C enter Colonography (combo)] Future Scheduled [address] [facility] 00:00:00 malignant ne[facility] colon (procedure) [code = 655529470] Future Scheduled [address] [facility] 00:00:00 malignant neoplasm of [facility] colon (procedure) [code = 649873479] Future Scheduled [address] [facility] 00:00:00 malignant neoplasm of [facility] colon (procedure) [code = 895808830] Future Scheduled [address] [facility] 00:00:00 malignant neoplasm of [facility] colon (procedure) [code = 400626625] Future Scheduled 1948 S[facility]oidoscopy [facility]] [facility] Future Scheduled [address] [facility] 00:00:00 (combo) [code = CT Medical C enter Colonography (combo)] Future Scheduled [address] [facility] 00:00:00 malignant neoplasm [facility] colon (procedure) [code = 158962130] Future Scheduled [address] [facility] 00:00:00 malignant neoplasm of [facility] Center colon (procedure) [code = 376735036] Future Scheduled [address] [facility] 00:00:00 malignant neoplasm of [facility] colon (procedure) [code = 761294000] Future Scheduled [address] [facility] 00:00:00 malignant neoplasm of [facility] colon (procedure) [code = 604576850] Future Scheduled 1948 S[facility]oidoscopy [facility]] [facility] Cent[facility] Future Scheduled [address] [facility] 00:00:00 (combo) [code = CT Medical C enter Colonography (combo)] Future Scheduled [address] [facility] 00:00:00 malignant neoplasm [facility] colon (procedure) [code = 177481053] Future Scheduled [address] [facility] 00:00:00 malignant neoplasm of [facility] colon (procedure) [code = 224152795] Future Scheduled [address] [facility] 00:00:00 malignant neoplasm [facility] colon (procedure) [code = 902230145] Future Scheduled [address] [facility] 00:00:00 malignant neoplasm [facility] colon (procedure) [code = 256544719] Future Scheduled [address] [facility] 00:00:00 (combo) [code = CT Medical C enter Colonography (combo)] Future Scheduled [address] [facility] 00:00:00 malignant neoplasm [facility] Center colon (procedure) [code = 656736226] Future Scheduled [address] [facility] 00:00:00 malignant neoplasm of [facility] colon (procedure) [code = 224597924] Future Scheduled [address] [facility] 00:00:00 malignant neoplasm [facility] Center colon (procedure) [code = 219145585] Future Scheduled [address] [facility] 00:00:00 malignant neoplasm of [facility] colon (procedure) [code = 996853263] Future Scheduled 1948 S[facility]oidoscopy [facility]] Medical Cent[facility] r Future Scheduled 1948 Sigmoidoscopy [code [facility] S[facility]oidoscopy] [facility] Cent[facility] Future Scheduled [address] [facility] 00:00:00 (combo) [code = CT Medical C enter Colonography (combo)] Future Scheduled [address] [facility] 00:00:00 malignant ne[facility] colon (procedure) [code = 783580202] Future Scheduled [address] [facility] 00:00:00 malignant neoplasm [facility] colon (procedure) [code = 226250981] Future Scheduled [address] [facility] 00:00:00 [facility] colon (procedure) [code = 201694621] Future Scheduled [address] [facility] 00:00:00 malignant neoplasm [facility] Center colon (procedure) [code = 400375178] Encounters Start End Encounter Admission Attending Care Care Encounter Source Date/Time Date/Time Type Type Clinicians Facility Department ID 2021-05-25 Outpatient 3 [facility] ENCPL CVA [id number] [facility] 11:01:37 hez, [facility] [place] [facility] 2021-05-25 Outpatient 3 [id number] ENCPL REF [id number] [facility] 11:01:07 [facility] [place] 2021 Emergency [facility] [id number] [facility] 2023-03-15 Outpatient EL [facility] [id number] SLE 00:00:00 00:00:00 2023-03-15 2023-03-15 Outpatient EL [facility] [id number] [facility] 00:00:00 00:00:00 2023-02-01 2023-02-01 Outpatient NATALYA DARLING [facility] [id number] [facility] 00:00:00 00:00:00 2023-02-01 2023-02-01 Outpatient EL [facility] [id number] [facility] 00:00:00 00:00:00 2023-02-01 2023-02-01 Outpatient NATALYA DARLING [facility] [id number] SLE 00:00:00 00:00:00 2023-01-30 2023-01-30 Nurse CORNELIA Ross [id number] Univers 00:00:00 00:00:00 Triage Sanjeev ARTEAGA 350.1.13.10 it y of HOSPITAL 4.2.7.2.686 [place] as [id number] [address] 2023-01-29 2023-01-29 [facility] [id number] Univers 00:00:00 00:00:00 [facility] 350.1.13.10 it y of [place] 4.2.7.2.686 [place] as LEN?BLEA [id number] [address] OFFICE [facility] 2023-01-29 2023-01-29 Telephone [facility] [id number] Univers 00:00:00 00:00:00 [facility] 350.1.13.10 [facility] 4.2.7.2.686 [place] LEN?BLEA [id number] [address] OFFICE [facility] 2023-01-29 2023-01-29 [facility] 1.2.840.114 [id number] Univers 00:00:00 00:00:00 [facility] 350.1.13.10 [facility] 4.2.7.2.686 [place] LEN?BLEA [id number] [address] OFFICE [facility] 2023-01-29 2023-01-29 [facility] [id number] [facility] 00:00:00 00:00:00 Triage [facility] 350.1.13.10 it y of [place] 4.2.7.2.686 [place] as LEN?BLEA [id number] [facility] [address] OFFICE [facility] 2023-01-28 2023-01-28 Telephone [facility] [id number] Univers 00:00:00 00:00:00 [facility] 350.1.13.10 it y of [place] 4.2.7.2.686 [place] as LEN?BLEA [id number] [facility] [address] OFFICE [facility] 2023-01-23 2023-01-23 Telephone [facility] [id number] Univers 00:00:00 00:00:00 [facility] 350.1.13.10 it y of [place] 4.2.7.2.686 [place] as LEN?BLEA [id number] [address] OFFICE [facility] 2023-01-22 2023-01-22 [facility] 1.2.840.114 [id number] Univers 00:00:00 00:00:00 [facility] 350.1.13.10 it y of [place] 4.2.7.2.686 [place] as LEN?BLEA [id number] [address] OFFICE [facility] 2023-01-19 2023-01-19 [facility] [id number] Univers 00:00:00 00:00:00 [facility] 350.1.13.10 it y of [place] 4.2.7.2.686 [place] as LEN?BLEA [id number] [address] OFFICE [facility] 2023-01-15 2023-01-15 [facility] 1.2.840.114 [id number] Univers 00:00:00 00:00:00 [facility] 350.1.13.10 it y of [place] 4.2.7.2.686 [place] as LEN?BLEA [id number] [address] OFFICE [facility] 2023-01-15 2023-01-15 Telephone Abdiaziz Desai [facility] [id number] Univers 00:00:00 00:00:00 HEALTH 350.1.13.10 it y of [place] 4.2.7.2.686 [place] as LEN?BLEA [id number] Nm oscar ABDULLAHI [address] [facility] OFFICE [facility] 2023-01-02 2023-01-02 Telephone [facility] [id number] Univers 00:00:00 00:00:00 [facility] 350.1.13.10 it y of [place] 4.2.7.2.686 [place] as LEN?BLEA [id number] Nm oscar [address] OFFICE [facility] 2022-12-26 2022-12-26 Telephone [facility] [id number] Univers 00:00:00 00:00:00 [facility] 350.1.13.10 it y of [place] 4.2.7.2.686 [place] as LEN?BLEA [id number] Nm oscar [address] 2022-12-21 2022-12-21 Outpatient NATALYA DARLING [facility] [id number] [facility] 12:42:37 23:59:00 2022-12-21 2022-12-21 [facility] Natalya Tom [facility] [id number] 12:30:00 23:59:00 Encounter [facility] 2022-12-21 2022-12-21 [facility] Natalya Tom [facility] [id number] 12:30:00 23:59:00 Encounter [facility] 2022-12-21 2022-12-21 Outpatient DAVIN MEJIA [facility] [id number] [facility] 11:42:22 13:47:38 MIGUEL 2022-12-21 2022-12-[address] [facility] [id number] 11:30:00 13:47:38 Visit Miguel [facility] 2022-12-21 2022-12-21 Office Antelmo [facility] [id number] 11:30:00 13:47:38 Visit [facility] 2022-12-21 2022-12-21 Treatment Natalya Darling [facility] [id number] 11:30:00 11:45:00 [facility] 2022-12-21 2022-12-21 Treatment Natalya Tom [facility] [id number] 11:30:00 11:45:00 [facility] 2022-12-21 2022-12-21 Outpatient EL SLE SLEH [id number] SLEH 11:32:23 11:32:23 2022-12-19 2022-12-19 Refnery DobbinsRUST 1.2.840.114 [id number] Univers 00:00:00 00:00:00 [facility] 350.1.13.10 it y of [place] 4.2.7.2.686 [place] as LEN?BLEA [id number] [address] OFFICE [facility] 2022-12-19 2022-12-19 [facility] D[facility] 1.2.840.114 [id number] Univers 00:00:00 00:00:00 [facility] 350.1.13.10 it y of [place] 4.2.7.2.686 [place] as LEN?BLEA [id number] [address] OFFICE [facility] 2022-12-19 2022-12-19 Orders Natalya Tom [facility] [id number] 00:00:00 00:00:00 Only [facility] 2022-12-19 2022-12-19 Edgardo Laith TomDerrickAdy [facility] [id number] 00:00:00 00:00:00 Only [facility] 2022-12-12 2022-12-12 Mary DobbinsRUST 1.2.840.114 [id number] Univers 00:00:00 00:00:00 [facility] 350.1.13.10 it y of [place] 4.2.7.2.686 [place] as LEN?BLEA [id number] [address] OFFICE [facility] 2022-12-12 2022-12-12 Telephone DobbinsRUST 1.2.083.558 [id number] Univers 00:00:00 00:00:00 [facility] 350.1.13.10 it y of [place] 4.2.7.2.686 [place] as LEN?BLEA [id number] [address] OFFICE [facility] 2022-12-07 2022-12-07 Orders Doctor CORNELIA 1.2.840.114 [id number] Univers 00:00:00 00:00:00 Only Unassigned, JENNI 350.1.13.10 ity of [place] [facility] 4.2.7.2.686 [place] as [phone] [address] 2022-12-03 2022-12-03 Outpatient R [facility] [id number] Univers 09:30:00 09:30:00 JUMA ity [facility] 2022-11-28 2022-11-28 Telephone [facility] 1.2.842.208 [id number] Univers 00:00:00 00:00:00 [facility] 350.1.13.10 it y of [place] 4.2.7.2.686 [place] as LEN?BLEA [id number] [address] OFFICE [facility] 2022-11-21 2022-11-21 Refill MuRUST 1.2.840.114 [id number] Univers 00:00:00 00:00:00 [place] [facility] 350.1.13.10 it y of [place] 4.2.7.2.686 [place] as LEN?BLEA [id number] [address] OFFICE [facility] 2022-11-21 2022-11-21 RefAbdiaziz Tirado [facility] 1.2.840.114 [id number] Univers 00:00:00 00:00:00 HEALTH 350.1.13.10 it y of [place] 4.2.7.2.686 [place] as LEN?BLEA [phone] Nm oscar [facility] [address] MEDICAL OFFICE [facility] 2022-11-15 2022-11-15 Orders Doctor CORNELIA 1.2.840.114 [id number] Univers 00:00:00 00:00:00 Only Unassigned, JENNI 350.1.13.10 ity of [place] [facility] 4.2.7.2.686 [place] as [phone] [address] 2022-11-14 2022-11-14 Telephone DobbinsRUST 1.2.975.869 [id number] Univers 00:00:00 00:00:00 [facility] 350.1.13.10 it y of [facility] 4.2.7.2.686 [place] as LEN?BLEA [phone] [facility] [address] OFFICE [facility] 2022-11-14 2022-11-14 Refill DobbinsRUST 1.2.840.114 [id number] Univers 00:00:00 00:00:00 [facility] 350.1.13.10 it y of [facility] 4.2.7.2.686 [place] as LEN?BLEA [id number] [address] OFFICE [facility] 2022-11-14 2022-11-14 Refill Abdiaziz Desai [facility] 1.2.840.114 [id number] Univers 00:00:00 00:00:00 HEALTH 350.1.13.10 it y of [place] 4.2.7.2.686 [place] as LEN?BLEA [id number] [facility] [address] OFFICE [facility] 2022-11-09 2022-11-09 Outpatient NATALYA TOM [facility] SLEH [id number] SLE 12:42:37 23:59:00 2022-11-09 2022-11-09 [facility] Natalya Tom [facility] [id number] [id number] 12:30:00 23:59:00 Encounter [facility] 2022-11-09 2022-11-09 [facility] Natalya Tom [facility] [id number] [id number] 12:30:00 23:59:00 Encounter [facility] 2022-11-09 2022-11-09 Outpatient SHINE MEJIA SLE [id number] SLE 11:44:19 13:25:35 MIGUEL 2022-11-09 2022-11-09 Office Antelmo [facility] [id number] 11:30:00 13:25:35 Visit [facility] 2022-11-09 2022-11-09 Office Antelmo [facility] [id number] 11:30:00 13:25:35 Visit [facility] 2022-11-09 2022-11-09 Treatment Laith DarlingWaltera [facility] [id number] 11:30:00 11:45:00 [facility] 2022-11-09 2022-11-09 Treatment Laith TomBrittanie [facility] [id number] [id number] 11:30:00 11:45:00 [facility] 2022-11-09 2022-11-09 Outpatient EL SLE SLE [id number] SLEH 11:38:20 11:38:20 2022-11-07 2022-11-07 Orders Doctor CORNELIA 1.2.840.114 [id number] Univers 00:00:00 00:00:00 Only Unassigned, JENNI 350.1.13.10 ity of [place] [facility] 4.2.7.2.686 [place] as [id number] [address] 2022-11-06 2022-11-06 Mary Dobbins [facility] 1.2.840.114 [id number] Univers 00:00:00 00:00:00 [facility] 350.1.13.10 it y of [place] 4.2.7.2.686 [place] as LEN?BLEA [id number] Nm oscar [address] MEDICAL OFFICE BUILDING 2022-11-02 2022-11-02 [facility] WilnerNatalya early [facility] [id number] [id number] 11:12:14 23:59:00 Encounter [facility] 2022-11-02 2022-11-02 Outpatient NATAYLA DARLING [facility] SLE [id number] SLE 11:12:14 23:59:00 2022-11-02 2022-11-02 [facility] Natalya Tom [facility] [id number] [id number] 11:12:14 23:59:00 Encounter [facility] 2022-11-02 2022-11-02 [facility] Natalya Tom [facility] [id number] 20 [id number] [facility] St 11:11:43 11:11:43 Encounter [facility] 2022-11-02 2022-11-02 Outpatient NATALYA DARLING [facility] [id number] SLE 11:11:43 11:11:43 2022-11-02 2022-11-02 [facility] Natalya Tom [facility] [id number] 20 [id number] [facility] 11:11:43 11:11:43 Encounter [facility] 2022-11-01 2022-11-01 Letter DuncanRUST 1.2.840.114 [id number] Univers 00:00:00 00:00:00 (Out) [facility] MULTISPEC 350.1.13.10 ity of End[place] [id number] [facility] [place] [address] [facility] 2022-11-01 2022-11-01 Patient Doctor CORNELIA 1.2.840.114 [id number] Univers 00:00:00 00:00:00 Secure Msg Unassigned, JENNI 350.1.13.10 ity of [place] [facility] 4.2.7.2.686 [place] as [id number] [facility] [address] 2022-10-31 2022-10-31 Refill Mu [facility] 1.2.840.114 [id number] Univers 00:00:00 00:00:00 [facility] 350.1.13.10 it y of [place] 4.2.7.2.686 [place] as LEN?BLEA [phone] Nm oscar [address] MEDICAL OFFICE BUILDING 2022-10-31 2022-10-31 Telephone Mu [facility] 1.2.212.715 [id number] Univers 00:00:00 00:00:00 [facility] 350.1.13.10 it y of [place] 4.2.7.2.686 [place] as LEN?BLEA [id number] [address] MEDICAL OFFICE [facility] 2022-10-25 2022-10-25 Orders Doctor CORNELIA 1.2.840.114 [id number] Univers 00:00:00 00:00:00 Only Unassigned, JENNI 350.1.13.10 ity of [place] [facility] 4.2.7.2.686 [place] as [id number] [address] 2022-10-22 2022-10-22 Office DobbinsRUST 1.2.840.114 [id number] Univers 09:00:00 09:30:00 Visit [facility] 350.1.13.10 it y of [place] 4.2.7.2.686 [place] as LEN?BLEA [id number] [address] OFFICE [facility] 2022-10-22 2022-10-22 Outpatient R [facility] [id number] Univers 09:00:00 09:00:00 [facility] 2022-10-17 2022-10-17 Refill DobbinsRUST 1.2.840.114 [id number] Univers 00:00:00 00:00:00 [facility] 350.1.13.10 it y of [place] 4.2.7.2.686 [place] as LEN?BLEA [id number] [address] MEDICAL OFFICE [facility] 2022-10-17 2022-10-17 Telephone MuANAHY 1.2.840.114 [id number] Univers 00:00:00 00:00:00 [facility] 350.1.13.10 it y of [place].2.[place] [id number] [facility] [address] 2022-10-17 2022-10-17 Orders Doctor LOCKE 1.2.840.114 [id number] Univers 00:00:00 00:00:00 Only Unassigned, JENNI 350.1.13.10 ity of [place] [facility]OSPITAL 4.2.7.2.686 [place] as [phone] [address] 2022-10-08 2022-10-08 Outpatient R [facility] [id number] Univers 12:00:00 12:00:00 JUMA ity [facility] 2022-10-03 2022-10-03 Refill MuRUST 1.2.840.114 [id number] Univers 00:00:00 00:00:00 [facility] 350.1.13.10 it y of [place] 4.2.7.2.686 [place] as LEN?BLEA [id number] [address] OFFICE [facility] 2022-10-03 2022-10-03 Telephone MuRUST 1.2.781.580 [id number] Univers 00:00:00 00:00:00 [facility] 350.1.13.10 it y of [place] 4.2.7.2.686 [place] as LEN?BLEA [id number] [address] OFFICE [facility] 2022-09-28 2022-10-01 [facility] [id number] 14:41:00 14:55:00 Encounter Oriana Guerrero In [facility] Felicia Shepard 2022-09-28 2022-10-01 Inpatient ER [facility] Emergency [id number] SLE 14:41:00 14:55:00 FELICIA 2022-09-28 2022-10-01 [facility] [id number] 14:41:00 14:55:00 Encounter Oriana [facility]errero [facility] enter 2022-09-29 2022-09-29 Outpatient ER SANCHEZ, [facility] [id number] SLE 16:00:40 16:00:40 MARLENY 2022-09-28 2022-09-28 [facility] Natalya Tom [facility] [id number] [id number] 12:29:38 14:40:00 Encounter [facility] 2022-09-28 2022-09-28 Outpatient NATALYA DARLING SLEMegan SLE [id number] SLEH 12:29:38 14:40:00 2022-09-28 2022-09-28 [facility] Natalya Tom [facility] [id number] [id number] 12:29:38 14:40:00 Encounter [facility] 2022-09-28 2022-09-28 Office Baxter, [facility] [id number] 11:30:00 14:31:24 Visit [facility] 2022-09-28 2022-09-28 Office Antelmo [facility] [id number] 11:30:00 14:31:24 Visit [facility] 2022-09-28 2022-09-28 Outpatient DAVIN MEJIA [facility] [id number] SLE 10:51:45 14:31:24 MIGUEL 2022-09-28 2022-09-28 Treatment Natalya Darling [facility] [id number] 10:30:00 10:45:00 [facility] 2022-09-28 2022-09-28 Treatment Natalya Tom [facility] [id number] 10:30:00 10:45:00 [facility] 2022-09-28 2022-09-28 Outpatient EL SLE SLE [id number] SLEH 10:30:24 10:30:24 2022-09-28 2022-09-28 Outpatient EL SLE SLE [id number] SLEH 00:00:00 00:00:00 2022-09-28 2022-09-28 Orders Doctor CORNELIA 1.2.840.114 [id number] Univers 00:00:00 00:00:00 Only Unassigned, JENNI 350.1.13.10 ity of [place] [facility] 4.2.7.2.686 [place] as [phone] [address] 2022-09-28 2022-09-28 Travel [facility] [id number] [facility] 00:00:00 00:00:00 [facility] 2022-09-28 2022-09-28 Telephone Dominick [facility] [id number] 00:00:00 00:00:00 [facility] 2022-09-28 2022-09-28 Luis Fernando TrammellAdy [facility] [id number] 00:00:00 00:00:00 Only [facility] 2022-09-28 2022-09-28 Travel [facility] [id number] [facility] 00:00:00 00:00:00 [facility] 2022-09-28 2022-09-28 [facility] [id number] 00:00:00 00:00:00 [facility] 2022-09-28 2022-09-28 Orders Natalya Tom [facility] [id number] 00:00:00 00:00:00 Only [facility] 2022-09-27 2022-09-27 Telephone DobbinsRUST 1.2.330.958 [id number] Univers 00:00:00 00:00:00 [facility] 350.1.13.10 it y of [place] 4.2.7.2.686 [place] as LEN?BLEA [id number] [address] OFFICE [facility] 2022-09-27 2022-09-27 [facility] 1.2.840.114 [id number] Univers 00:00:00 00:00:00 [facility] 350.1.13.10 it y of [place] 4.2.7.2.686 [place] as LEN?BLEA [id number] [address] OFFICE [facility] 2022-09-20 2022-09-20 [facility] 1.2.840.114 [id number] Univers 00:00:00 00:00:00 [facility] 350.1.13.10 it y of [place] 4.2.7.2.686 [place] as LEN?BLEA [id number] [address] OFFICE [facility] 2022-09-19 2022-09-19 Telephone MuRUST 1.2.060.263 [id number] Univers 00:00:00 00:00:00 [facility] 350.1.13.10 it y of [facility] 4.2.7.2.686 [place] as LEN?BLEA [id number] [address] OFFICE [facility] 2022-09-18 2022-09-18 Refill DobbinsRUST 1.2.840.114 [id number] Univers 00:00:00 00:00:00 [facility] 350.1.13.10 it y of [facility] 4.2.7.2.686 [place] as LEN?BLEA [id number] [address] 2022-09-17 2022-09-17 Outpatient R ABDIAZIZ DESAI [facility] [id number] Univers 14:00:00 14:00:00 ABDIAZIZ DESAI ity of [facility] 2022-09-17 2022-09-17 [facility] Dobbins[facility] 1.2.840.114 [id number] Univers 00:00:00 00:00:00 [facility] 350.1.13.10 it y of [facility] 4.2.7.2.686 [place] as LEN?BLEA [id number] [address] OFFICE [facility] 2022-09-13 2022-09-13 Orders Doctor CORNELIA 1.2.840.114 [id number] Univers 00:00:00 00:00:00 Only Unassigned, JENNI 350.1.13.10 ity of [place] [facility] 4.2.7.2.686 [place] as [phone] [address] 2022-09-12 2022-09-12 Telephone DobbinsRUST 1.2.178.191 [id number] Univers 00:00:00 00:00:00 [facility] 350.1.13.10 it y of [place] 4.2.7.2.686 [place] as LEN?BLEA [id number] Me dicangelo [address] OFFICE [facility] 2022-09-08 2022-09-08 Refnery DobbinsRUST 1.2.840.114 [id number] Univers 00:00:00 00:00:00 [facility] 350.1.13.10 it y of [place] 4.2.7.2.686 [place] as LEN?BLEA [id number] [address] OFFICE [facility] 2022-09-05 2022-09-05 Telephone MuRUST 1.2.447.151 [id number] Univers 00:00:00 00:00:00 [facility] 350.1.13.10 it y of [place] 4.2.7.2.686 [place] as LEN?BLEA [id number] [address] 2022-08-31 2022-08-31 [facility] Dobbins[facility] 1.2.840.114 [id number] Univers 00:00:00 00:00:00 [facility] 350.1.13.10 it y of [place] 4.2.7.2.686 [place] as LEN?BLEA [id number] [address] OFFICE [facility] 2022-08-29 2022-08-29 Refnery DobbinsRUST 1.2.840.114 [id number] Univers 00:00:00 00:00:00 [facility] 350.1.13.10 it y of [place] 4.2.7.2.686 [place] as LEN?BLEA [id number] [address] OFFICE [facility] 2022-08-29 2022-08-29 Telephone MuRUST 1.2.882.406 [id number] Univers 00:00:00 00:00:00 [facility] 350.1.13.10 it y of [place] 4.2.7.2.686 [place] as LEN?BLEA [id number] [address] OFFICE [facility] 2022-08-29 2022-08-29 RefAbdiaziz Tirado [facility] 1.2.840.114 [id number] Univers 00:00:00 00:00:00 HEALTH 350.1.13.10 it y of [place] 4.2.7.2.686 [place] as LEN?BLEA [id number] Nm oscar ABDULLAHI [address] MEDICAL OFFICE [facility] 2022-08-24 2022-08-24 Telephone [facility] 1.2.448.985 [id number] Univers 00:00:00 00:00:00 [facility] 350.1.13.10 it y of [place] 4.2.7.2.686 [place] as LEN?BLEA [id number] Nm oscar ABDULLAHI [address] MEDICAL OFFICE [facility] 2022-08-23 2022-08-23 Orders Doctor CORNELIA 1.2.840.114 [id number] Univers 00:00:00 00:00:00 Only Unassigned, JENNI 350.1.13.10 ity of [place] [facility] 4.2.7.2.686 [place] as [id number] [address] 2022-08-22 2022-08-22 Telephone [facility] 1.2.033.754 [id number] Univers 00:00:00 00:00:00 [facility] 350.1.13.10 it y of [place] 4.2.7.2.686 [place] as LEN?BLEA [id number] Nm oscar ABDULLAHI [address] OFFICE [facility] 2022-08-22 2022-08-22 [facility] 1.2.840.114 [id number] Univers 00:00:00 00:00:00 [facility] 350.1.13.10 it y of [place] 4.2.7.2.686 [place] as LEN?BLEA [id number] Nm oscar ABDULLAHI [address] MEDICAL OFFICE [facility] 2022-08-17 2022-08-17 Telephone [facility] 1.2.622.859 [id number] Univers 00:00:00 00:00:00 [facility] 350.1.13.10 it y of [place] 4.2.7.2.686 [place] as LEN?BLEA [phone] Nm oscar ABDULLAHI [address] MEDICAL OFFICE [facility] 2022-08-17 2022-08-[address] [id number] 00:00:00 00:00:00 Encounter [facility] missy [facility] 2022-08-17 2022-08-17 Historical Transcripti [facility] [id number] [facility] 00:00[facility]00 00:00:00 Encounter on, [facility] 2022-08-17 2022-08-17 Historical Baxter, [facility] [id number] 00:00:00 00:00:00 Encounter [facility] missy [facility] 2022-08-17 2022-08-17 Historical Transcripti [facility] [id number] [facility] 00:00:00 00:00:00 Encounter on, [facility] 2022-08-15 2022-08-15 Asif DobbinsRUST 1.2.330.581 [id number] Univers 00:00:00 00:00:00 [facility] 350.1.13.10 it y of [place] 4.2.7.2.686 [place] as LEN?BLEA [id number] [address] MEDICAL OFFICE [facility] 2022-08-14 2022-08-14 Office Mu[facility] 1.2.840.114 [id number] Univers 09:30:00 09:45:00 Visit [facility] 350.1.13.10 it y of [place] 4.2.7.2.686 [place] as LEN?BLEA [id number] [address] OFFICE [facility] 2022-08-14 2022-08-14 Outpatient Raquel DOBBINS [facility] [id number] Univers 09:30:00 09:30:00 JUMA marcos [facility] 2022-08-14 2022-08-14 Orders Doctor CORNELIA 1.2.840.114 [id number] Univers 00:00:00 00:00:00 Only Unassigned, JENNI 350.1.13.10 ity of [place] [facility] 4.2.7.2.686 [place] as [phone] [address] 2022-08-09 2022-08-09 Outpatient Raquel [facility] [id number] Univers 13:15:00 13:15:00 JUMA marcos [facility] 2022-08-08 2022-08-08 Refnery DobbinsRUST 1.2.840.114 [id number] Univers 00:00:00 00:00:00 [facility] 350.1.13.10 it y of [place] 4.2.7.2.686 [place] as LEN?BLEA [id number] Nm oscar ABDULLAHI [address] OFFICE [facility] 2022-08-05 2022-08-05 Refnery Desai Abdiaziz [facility] 1.2.840.114 [id number] Univers 00:00:00 00:00:00 HEALTH 350.1.13.10 it y of [place] 4.2.7.2.686 [place] as LEN?BLEA [id number] Nm oscar ABDULLAHI [address] OFFICE [facility] 2022-08-01 2022-08-01 [facility] 1.2.840.114 [id number] Univers 00:00:00 00:00:00 [facility] 350.1.13.10 it y of [place] 4.2.7.2.686 [place] as LEN?BLEA [phone] Nm oscar ABDULLAHI [address] [place] [address] OFFICE [facility] 2022-08-01 2022-08-01 Telephone [facility] 1.2.884.668 [id number] Univers 00:00:00 00:00:00 [facility] 350.1.13.10 it y of [place] 4.2.7.2.686 [place] as LEN?BLEA [phone] Nm oscar ABDULLAHI [address] [place] [address] OFFICE [facility] 2022-07-26 2022-07-26 Telephone [facility] 1.2.122.487 [id number] Univers 00:00:00 00:00:00 [facility] 350.1.13.10 it y of [place] 4.2.7.2.686 [place] as LEN?BLEA [phone] Nm oscar ABDULLAHI [address] [place] [address] OFFICE [facility] 2022-07-25 2022-07-25 Refnery [facility] 1.2.840.114 [id number] Univers 00:00:00 00:00:00 [facility] 350.1.13.10 it y of [place] 4.2.7.2.686 [place] as LEN?BLEA [phone] [address] MEDICAL OFFICE [facility] 2022-07-25 2022-07-25 Telephone [facility] 1.2.637.953 [id number] Univers 00:00:00 00:00:00 [facility] 350.1.13.10 [facility] 4.2.7.2.686 [place] as LEN?BLEA [phone] [address] MEDICAL OFFICE [facility] 2022-07-19 2022-07-19 Office [facility] 1.2.840.114 [id number] Univers 10:00:00 10:15:00 Visit [facility] 350.1.13.10 [facility] 4.2.7.2.686 [place] as LEN?BLEA [phone] [address] OFFICE [facility] 2022-07-19 2022-07-19 Outpatient R [facility] [id number] Univers 10:00:00 10:00:00 JUMA ity [facility] 2022-07-19 2022-07-19 Telephone [facility] 1.2.948.584 [id number] Univers 00:00:00 00:00:00 [facility] 350.1.13.10 [facility] 4.2.7.2.686 [place] as LEN?BLEA [phone] [address] OFFICE [facility] 2022-07-19 2022-07-19 Orders Doctor CORNELIA 1.2.840.114 [id number] Univers 00:00:00 00:00:00 Only Unassigned, JENNI 350.1.13.10 ity of [place] [facility] 4.2.7.2.686 [place] as [phone] [address] 2022-07-18 2022-07-18 Telephone [facility] 1.2.494.903 [id number] Univers 00:00:00 00:00:00 [facility] 350.1.13.10 it y of [place] 4.2.7.2.686 [place] as LEN?BLEA [phone] [address] OFFICE [facility] 2022-07-17 2022-07-17 [facility] 1.2.834.911 [id number] Univers 00:00:00 00:00:00 [facility] 350.1.13.10 it y of [place] 4.2.7.2.686 [place] as LEN?BLEA [id number] [address] OFFICE [facility] 2022-07-16 2022-07-16 Telephone [facility] 1.2.318.248 [id number] Univers 00:00:00 00:00:00 [facility] 350.1.13.10 it y of [place] 4.2.7.2.686 [place] as LEN?BLEA [phone] [address] OFFICE [facility] 2022-07-12 2022-07-12 [facility] 1.2.888.478 [id number] Univers 00:00:00 00:00:00 [facility] 350.1.13.10 it y of [place] 4.2.7.2.686 [place] as LEN?BLEA [id number] [address] OFFICE [facility] 2022-07-12 2022-07-12 [facility]phone [facility] 1.2.639.485 [id number] Univers 00:00:00 00:00:00 [facility] 350.1.13.10 it y of [place] 4.2.7.2.686 [place] as LEN?BLEA [id number] [address] OFFICE [facility] 2022-07-06 2022-07-06 Orders Antelmo [facility] [id number] 00:00:00 00:00:00 Only [facility] 2022-07-06 2022-07-06 Historical Transcripti [facility] [id number] [facility] 00:00:00 00:00:00 Encounter on, [facility] 2022-07-06 2022-07-06 Historical Antelmo [facility] [id number] 00:00:00 00:00:00 Encounter [facility] 2022-07-06 2022-07-06 Historical Transcripti [facility] [id number] [facility] 00:[facility]:00 Encounter on, Abimael louis [facility] 2022-07-06 2022-07-06 Historical Baxter, [facility] [id number] [facility] 00:00[facility]00 00:00:00 Encounter Miguel louis [facility] 2022-07-06 2022-07-06 Orders Antelmo [facility] [id number] 00:00:00 00:00:00 Only Miguel josé [facility] 2022-07-05 2022-07-05 Orders Doctor LOCKE 1.2.840.114 [id number] Univers 00:00:00 00:00:00 Only Unassigned, JENNI 350.1.13.10 ity of [place] [facility] 4.2.7.2.686 Isrrael as [id number] [address] 2022-07-04 2022-07-04 [facility] 1.2.840.114 [id number] Univers 00:00:00 00:00:00 [facility] 350.1.13.10 it y of [facility] 4.2.7.2.686 Isrrael as LEN?BLEA [id number] [address] OFFICE [facility] 2022-07-04 2022-07-04 Telephone [facility] 1.2.123.761 [id number] Univers 00:00:00 00:00:00 [facility] 350.1.13.10 it y of [facility] 4.2.7.2.686 [place] as LEN?BLEA [id number] [address] OFFICE [facility] 2022-06-29 2022-06-29 Telephone [facility] 1.2.476.502 [id number] Univers 00:00:00 00:00:00 [facility] 350.1.13.10 it y of [place] 4.2.7.2.686 Isrrael as LEN?BLEA [id number] [address] OFFICE [facility] 2022-06-27 2022-06-27 Refnery [facility] 1.2.840.114 [id number] Univers 00:00:00 00:00:00 [facility] 350.1.13.10 it y of [place] 4.2.7.2.686 [place]rrael as LEN?BLEA [id number] [address] OFFICE [facility] 2022-06-27 2022-06-27 Refnery [facility] 1.2.840.114 [id number] Univers 00:00:00 00:00:00 [facility] 350.1.13.10 it y of [place] 4.2.7.2.686 [place]rrael as LEN?BLEA [id number] [address] 2022-06-27 2022-06-27 Telephone [facility] 1.2.072.588 [id number] Univers 00:00:00 00:00:00 [place] [facility] 350.1.13.10 it y of [place] 4.2.7.2.686 Isrrael as LEN?BLEA [id number] [address] 2022-06-27 2022-06-27 Orders Doctor CORNELIA 1.2.840.114 [id number] Univers 00:00:00 00:00:00 Only Unassigned, JENNI 350.1.13.10 ity of [place] [facility] 4.2.7.2.686 Isrrael as [id number] [address] 2022-06-14 2022-06-14 Telephone [facility] 1.2.541.534 7515 [id number] Univers 00:00:00 00:00:00 [place] [facility] 350.1.13.10 it y of [place] 4.2.7.2.686 [place]rrael as LEN?BLEA [id number] [address] 2022-06-13 2022-06-13 Telephone [facility] 1.2.844.428 5994 [id number] Univers 00:00:00 00:00:00 [facility] 350.1.13.10 it y of [place] 4.2.7.2.686 [place]rrael as LEN?BLEA [phone] Me dical KN[address] 2022-06-12 2022-06-12 [facility] 1.2.840.114 [id number] Univers 00:00:00 00:00:00 [facility] 350.1.13.10 it y of [place] 4.2.7.2.686 Isrrael as LEN?BLEA [id number] [address] 2022-06-06 2022-06-06 [facility] 1.2.441.607 [id number] [id number] Univers 00:00:00 00:00:00 [facility] 350.1.13.10 it y of [place] 4.2.7.2.686 Isrrael as LEN?BLEA [id number] [address] 2022-06-06 2022-06-06 [facility] 1.2.840.114 [id number] Univers 00:00:00 00:00:00 [facility] 350.1.13.10 it y of [place] 4.2.7.2.686 [place]rrael as LEN?BLEA [id number] [address] 2022-06-01 2022-06-01 Telephone [facility] 1.2.226.643 [id number] [id number] Univers 00:00:00 00:00:00 [facility] 350.1.13.10 it y of [place] 4.2.7.2.686 [place]rrael as LEN?BLEA [id number] [address] 2022-05-31 2022-05-31 Orders Doctor CORNELIA 1.2.840.114 [id number] Univers 00:00:00 00:00:00 Only Unassigned, JENNI 350.1.13.10 ity of [place] [facility] 4.2.7.2.686 Isrrael as [id number] [address] 2022-05-31 2022-05-31 Telephone [facility] 1.2.971.900 5055 [id number] Univers 00:00:00 00:00:00 [facility] 350.1.13.10 it y of [place] 4.2.7.2.686 Isrrael as LEN?BLEA [id number] Nm oscar ABDULLAHI [address] [place] [address] OFFICE [facility] 2022-05-30 2022-05-30 Refill [facility] 1.2.840.114 [id number] Univers 00:00:00 00:00:00 [facility] 350.1.13.10 it y of [place] 4.2.7.2.686 Isrrael as LEN?BLEA [id number] Nm oscar [address] 2022-05-25 2022-05-25 Historical Transcripti [facility] [id number] [facility] 00:00:00 Encounter on, [facility] 2022-05-25 2022-05-25 [facility] [id number] 00:00:00 00:00:00 Encounter [facility] 2022-05-25 2022-05-25 Historical Transcripti [facility] [id number] [facility]00 00:00:00 Encounter on, [facility] 2022-05-25 2022-05-25 Historical Baxter, [facility] [id number] [facility] 00:00[facility]00 00:00:00 Encounter [facility] 2022-05-23 2022-05-23 Telephone [facility] 1.2.577.785 [id number] Univers 00:00:00 00:00:00 [facility] 350.1.13.10 it y of [place] 4.2.7.2.686 Isrrael as LEN?BLEA [id number] Nm oscar ABDULLAHI [address] [place] [address] 2022-05-18 2022-05-18 Telephone [facility] 1.2.146.500 [id number] [id number] Univers 00:00:00 00:00:00 [facility] 350.1.13.10 it y of [place] 4.2.7.2.686 [place]rrael as LEN?BLEA [id number] Nm oscar [address] 2022-05-17 2022-05-17 Telephone [facility] 1.2.463.670 [id number] [id number] Univers 00:00:00 00:00:00 [facility] 350.1.13.10 it y of [place] 4.2.7.2.686 Isrrael as LEN?BLEA [id number] Nm oscar ABDULLAHI [address] MEDICAL OFFICE [facility] 2022-05-16 2022-05-16 Telephone [facility] 1.2.212.701 [id number] [id number] Univers 00:00:00 00:00:00 [facility] 350.1.13.10 it y of [place] 4.2.7.2.686 [place]rrael as LEN?BLEA [phone] Nm oscar [address] OFFICE [facility] 2022-05-15 2022-05-15 [facility], Ang - [facility] 1.2.840.1 14 [id number] Univers 08:00:00 08:15:00 Visit MuJuma [facility] 350.1.13.10 ity of [facility] 4.2.7.2.686 [place]rrael as LEN?BLEA [phone] Nm oscar ABDULLAHI [address] MEDICAL OFFICE [facility] 2022-05-15 2022-05-15 Office [facility] 1.2.840.114 [id number] Univers 07:45:00 08:00:00 Visit [facility] 350.1.13.10 it y of [place] 4.2.7.2.686 [place]rrael as LEN?BLEA [id number] Nm oscar [address] OFFICE [facility] 2022-05-15 2022-05-15 Outpatient R [facility] [id number] Univers 07:45:00 07:54:55 JUMA ity of [facility] 2022-05-14 2022-05-14 [facility] Natalya Tom [facility] [id number] [facility] 09:56:08 23:59:00 Encounter [facility] 2022-05-14 2022-05-14 Outpatient [id number] SLE 09:56:08 23:59:00 2022-05-14 2022-05-14 [facility] Natalya Tom [facility] [id number] [id number] 09:56:08 23:59:00 Encounter [facility] 2022-05-14 2022-05-14 [facility] Natalya Tom [facility] [id number] 09:55:49 09:55:49 Encounter [facility] 2022-05-14 2022-05-14 Outpatient NATALYA TOM [facility] SLE [id number] SLEH 09:55:49 09:55:49 2022-05-14 2022-05-14 [facility] Natalya Tom [facility] [id number] 20 [id number] [facility] 09:55:49 09:55:49 Encounter [facility] 2022-05-10 2022-05-10 Telephone [facility] 1.2.246.553 [id number] Univers 00:00:00 00:00:00 [facility] 350.1.13.10 it y of [facility] 4.2.7.2.686 Isrreal as LEN?BLEA [id number] [address] OFFICE [facility] 2022-05-10 2022-05-10 Telephone [facility] 1.2.668.288 [id number] [id number] Univers 00:00:00 00:00:00 [facility] 350.1.13.10 it y of [place] 4.2.7.2.686 [place]rrael as LEN?BLEA [id number] [address] OFFICE [facility] 2022-05-09 2022-05-09 Refill [facility] 1.2.840.114 [id number] Univers 00:00:00 00:00:00 [place] [facility] 350.1.13.10 it y of [facility] 4.2.7.2.686 [place] as LEN?BLEA [id number] [address] OFFICE [facility] 2022-05-09 2022-05-09 Orders Doctor CORNELIA 1.2.840.114 [id number] Univers 00:00:00 00:00:00 Only Unassigned, JENNI 350.1.13.10 ity of [place] [facility] 4.2.7.2.686 Isrrael as [id number] [address] 2022-05-08 2022-05-08 Office [facility] 1.2.840.114 [id number] Univers 09:15:00 09:30:00 Visit [facility] 350.1.13.10 it y of [place] 4.2.7.2.686 [place] as LEN?BLEA [id number] [address] MEDICAL OFFICE [facility] 2022-05-08 2022-05-08 Outpatient R MU [facility] [id number] Univers 09:15:00 09:26:16 JUMA robert [facility] 2022-04-30 2022-04-30 Outpatient R ABDIAZIZ DESAI [facility] [id number] Univers 16:30:00 16:30:00 ABDIAZIZ DESAI robert [facility] 2022-04-27 2022-04-27 Telephone [facility] 1.2.692.550 [id number] Univers 00:00:00 00:00:00 [facility] 350.1.13.10 it y of [place] 4.2.7.2.686 [place] as LEN?BLEA [id number] [address] OFFICE [facility] 2022-04-26 2022-04-26 Telephone [facility] 1.2.997.015 [id number] [id number] Univers 00:00:00 00:00:00 [facility] 350.1.13.10 it y of [place] 4.2.7.2.686 [place] as LEN?BLEA [id number] [address] MEDICAL OFFICE [facility] 2022-04-26 2022-04-26 Refill [facility] 1.2.840.114 [id number] Univers 00:00:00 00:00:00 [facility] 350.1.13.10 it y of [place] 4.2.7.2.686 [place]rrael as LEN?BLEA [id number] [address] OFFICE [facility] 2022-04-26 2022-04-26 [facility] 1.2.840.114 [id number] Univers 00:00:00 00:00:00 [facility] 350.1.13.10 it y of [place] 4.2.7.2.686 [place]rrael as LEN?BLEA [id number] [address] MEDICAL OFFICE [facility] 2022-04-25 2022-04-25 Refnery Dobbins [facility] 1.2.840.114 [id number] Univers 00:00:00 00:00:00 [facility] 350.1.13.10 it y of [place] 4.2.7.2.686 [place] as LEN?BLEA [id number] [address] MEDICAL OFFICE [facility] 2022-04-25 2022-04-25 Orders Doctor CORNELIA 1.2.840.114 [id number] Univers 00:00:00 00:00:00 Only Unassigned, JENNI 350.1.13.10 ity of [place] [facility] 4.2.7.2.686 Isr[place] as [id number] [address] 2022-04-20 2022-04-20 Outside Natalya Tom [facility] [id number] 00:00:00 00:00:00 Orders [facility] 2022-04-20 2022-04-20 Outside Natalya Tom [facility] [id number] 00:00:00 00:00:00 Orders [facility] 2022-04-13 2022-04-13 [facility] Natalya Tom [facility] [id number] 11:00:00 11:00:00 Encounter [facility] 2022-04-13 2022-04-13 Outpatient NATALYA [facility] SLE [id number] SLE 00:00:00 00:00:00 2022-04-13 2022-04-13 Outpatient NATALYA [facility] SLE [id number] SLE 00:00:00 00:00:00 2022-04-13 2022-04-13 Historical Natalya Tom [facility] [id number] [facility] 00:[facility]00 00:00:00 Encounter [facility] 2022-04-13 2022-04-13 Historical Transcripti [facility] [id number] [facility] 00:00[facility]00 00:00:00 Encounter on, [facility] 2022-04-13 2022-04-13 Historical Natalya Tom [facility] [id number] [facility] 00:00:00 00:00:00 Encounter [facility] 2022-04-13 2022-04-13 Historical Transcripti [facility] [id number] [facility] 00:00:00 00:00:00 Encounter on, [facility] 2022-04-12 2022-04-12 Orders Doctor CORNELIA 1.2.840.114 [id number] Univers 00:00:00 00:00:00 Only Unassigned, JENNI 350.1.13.10 ity of [place] [facility] 4.2.7.2.686 Isrrael as [id number] [address] 2022-04-11 2022-04-11 TALIA Diehl 1.2.840.114 [id number] Univers 00:00:00 00:00:00 [facility] 350.1.13.10 it y of [facility] 4.2.7.2.686 [place] as LEN?BLEA [id number] [address] OFFICE [facility] 2022-04-04 2022-04-04 Orders Doctor CORNELIA 1.2.840.114 [id number] Univers 00:00:00 00:00:00 Only Unassigned, JENNI 350.1.13.10 ity of [place] [facility]OSPITAL 4.2.7.2.686 Isrrael as [id number] [address] 2022-03-28 2022-03-28 TALIA Diehl 1.2.840.114 [id number] Univers 00:00:00 00:00:00 [facility] 350.1.13.10 it y of [facility] 4.2.7.2.686 [place] as LEN?BLEA [id number] [address] OFFICE [facility] 2022-03-28 2022-03-28 TALIA Rice 1.2.692.600 [id number] Univers 00:00:00 00:00:00 [facility] 350.1.13.10 it y of [place] 4.2.7.2.686 [place] as LEN?BLEA [id number] [address] MEDICAL OFFICE [facility] 2022-03-23 2022-03-23 Telephone [facility] 1.2.036.529 [id number] Univers 00:00:00 00:00:00 [facility] 350.1.13.10 it y of [place] 4.2.7.2.686 [place] as LEN?BLEA [id number] [address] MEDICAL OFFICE [facility] 2022-03-21 2022-03-21 Outpatient R [facility] [id number] Univers 13:15:00 13:36:45 JUMA willrobert [facility] 2022-03-21 2022-03-21 Office [facility] 1.2.840.114 [id number] Univers 13:15:00 13:30:00 Visit [facility] 350.1.13.10 it y of [facility] 4.2.7.2.686 [place] as LEN?BLEA [id number] [address] OFFICE [facility] 2022-03-21 2022-03-21 Refill [facility] 1.2.840.114 [id number] Univers 00:00:00 00:00:00 [facility] 350.1.13.10 it y of [place] 4.2.7.2.686 [place]rrael as LEN?BLEA [id number] [address] MEDICAL OFFICE [facility] 2022-03-15 2022-03-15 Telephone [facility] 1.2.173.500 [id number] Univers 00:00:00 00:00:00 [facility] 350.1.13.10 it y of [place] 4.2.7.2.686 [place] as LEN?BLEA [id number] [address] MEDICAL OFFICE [facility] 2022-03-15 2022-03-15 Orders Doctor LOCKE 1.2.840.114 [id number] Univers 00:00:00 00:00:00 Only Unassigned, JENNI 350.1.13.10 ity of [place] HOSPITAL 4.2.7.2.686 Isrrael as [id number] [address] 2022-03-14 2022-03-14 Outpatient R [facility] [id number] Univers 09:40:00 09:40:00 ity of [facility] 2022-03-08 2022-03-08 Outpatient NAT[facility]YA [facility] SLE [id number] SLE 00:00:00 00:00:00 2022-03-08 2022-03-08 Outpatient NAT[facility]YA [facility] SLE [id number] SLE 00:00:00 00:00:00 2022-03-06 2022-03-06 Refill [facility] 1.2.840.114 [id number] Univers 00:00:00 00:00:00 [facility] 350.1.13.10 it y of [place] 4.2.7.2.686 [place] as LEN?BLEA [id number] [address] MEDICAL OFFICE [facility] 2022-03-06 2022-03-06 Orders Doctor CORNELIA 1.2.840.114 [id number] Univers 00:00:00 00:00:00 Only Unassigned, JENNI 350.1.13.10 ity of [place] HOSPITAL 4.2.7.2.686 Isrrael as [id number] [address] 2022-03-02 2022-03-02 Telephone Mu [facility] 1.2.562.844 [id number] Univers 00:00:00 00:00:00 [facility] 350.1.13.10 it y of [facility] 4.2.7.2.686 [place] as LEN?BLEA [id number] [address] MEDICAL OFFICE [facility] 2022-03-02 2022-03-02 Historical Transcripti [facility] [id number] [facility] 00:00:00 Encounter on, [facility] Adriannekaren [facility] 2022-03-02 2022-03-02 Historical Baxter, [facility] [id number] 00:00:00 00:00:00 Encounter Miguel Luke s [facility] 2022-03-02 2022-03-02 Orders Natalya Tom [facility] [id number] [facility] 00:00:00 00:00:00 Only [facility] 2022-03-02 2022-03-02 Historical Transcripti [facility] [id number] [facility]00 00:00:00 Encounter on, [facility] 2022-03-02 2022-03-02 Historical Baxter, [facility] [id number] 00:00:00 00:00:00 Encounter [facility] 2022-03-02 2022-03-02 Orders aNtalya Tom [facility] [id number] 00:00:00 00:00:00 Only [facility] 2022-02-21 2022-02-21 Telephone Abdiaziz Desai [facility] 1.2.810.492 [id number] [facility] 00:00:00 00:00:00 HEALTH 350.1.13.10 it y of [place] 4.2.7.2.686 Isrrael as LEN?BLEA [id number] [facility] 220 [facility][note 2] 2022-02-19 2022-02-19 RefAbdiaziz Tirado [facility] 1.2.840.114 [id number] Univers 00:00:00 00:00:00 HEALTH 350.1.13.10 it y of [place] 4.2.7.2.686 [place]rrael as LEN?BLEA [id number] [facility] [address] OFFICE [facility] 2022-02-19 2022-02-19 [facility] 1.2.840.114 [id number] Univers 00:00:00 00:00:00 [facility] 350.1.13.10 it y of [place] 4.2.7.2.686 Isrrael as LEN?BLEA [id number] [facility] 044 [facility][note 2] 2022-02-19 2022-02-19 Refnery [facility] 1.2.840.114 [id number] Univers 00:00:00 00:00:00 [facility] 350.1.13.10 it y of [place] 4.2.7.2.686 [place] as LEN?BLEA [id number] [facility] [address] MEDICAL OFFICE [facility] 2022-02-19 2022-02-19 Orders Doctor CORNELIA 1.2.840.114 [id number] Univers 00:00:00 00:00:00 Only Unassigned, JENNI 350.1.13.10 ity of [place] HOSPITAL 4.2.7.2.686 Isr[place] as [id number] [address] 2022-02-12 2022-02-12 Telephone [facility] 1.2.458.327 [id number] [id number] Univers 00:00:00 00:00:00 [facility] 350.1.13.10 it y of [place] 4.2.7.2.686 [place] as LEN?BLEA [id number] [address] OFFICE [facility] 2022-02-11 2022-02-11 Telephone Abdiaziz Desai [facility] 1.2.177.862 [id number] Univers 00:00:00 00:00:00 HEALTH 350.1.13.10 it y of [place] 4.2.7.2.686 [place]rrael as LEN?BLEA [id number] [facility] [address] MEDICAL OFFICE [facility] 2022-02-11 2022-02-11 Orders Doctor CORNELIA 1.2.840.114 [id number] Univers 00:00:00 00:00:00 Only Unassigned, JENNI 350.1.13.10 ity of [place] HOSPITAL 4.2.7.2.686 [place] as [id number] [address] 2022-02-08 2022-02-08 Refill [facility] 1.2.840.114 [id number] Univers 00:00:00 00:00:00 [facility] 350.1.13.10 it y of [place] 4.2.7.2.686 [place] as LEN?BLEA [id number] [address] MEDICAL OFFICE [facility] 2022-02-01 2022-02-01 Outpatient R ABDIAZIZ DESAI [facility] [id number] Univers 08:15:00 09:20:00 ABDIAZIZ DESAI robert [facility] 2022-02-01 2022-02-01 [facility], Ang - Db [facility] 1.2.840.1 14 [id number] Univers 08:15:00 09:20:00 Visit Abdiaziz Desai HEALTH 350.1.13.10 it y of [place] 4.2.7.2.686 [place] as LEN?BLEA [id number] [facility] [address] OFFICE [facility] 2022-01-31 2022-01-31 Outpatient R ABDIAZIZ DESAI [facility] [id number] Univers 12:00:00 14:15:[address] [facility] 2022-01-31 2022-01-31 Office Abdiaziz Desai [facility] 1.2.840.114 [id number] Univers 12:00:00 14:15:10 Visit HEALTH 350.1.13.10 it y of [place] 4.2.7.2.686 [place] as LEN?BLEA 538.4423362 [facility] [address] OFFICE [facility] 2022-01-25 2022-01-25 Refill [facility] 1.2.840.114 [id number] Univers 00:00:00 00:00:00 Juma HEALTH 350.1.13.10 it y of [place] 4.2.7.2.686 [place] as LEN?BLEA [phone] [facility] [address] OFFICE [facility] 2022-01-24 2022-01-24 Telephone DobbinsRUST 1.2.383.213 [id number] [facility] 00:00:00 00:00:00 Juma HEALTH 350.1.13.10 it y of [place] 4.2.7.2.686 [place] LEN?BLEA [phone] [facility] [address] OFFICE [facility] 2022-01-22 2022-01-22 Telephone DobbinsRUST 1.2.560.031 [id number] [facility] 00:00:00 00:00:00 Juma HEALTH 350.1.13.10 it y of [place] 4.2.7.2.686 [place] LEN?BLEA [phone] [facility] [address] MED[facility] OFF[facility] BU[facility] 2022-01-21 2022-01-21 Orders Doctor CORNELIA 1.2.840.114 [id number] Univers 00:00:00 00:00:00 Only Unassigned, JENNI 350.1.13.10 ity of [place] [facility] 4.2.7.2.686 [place] as [phone] [address] 2022-01-19 2022-01-19 Historical Transcripti [facility] [id number] [facility] 00:00:00 00:00:00 Encounter on, [facility] 2022-01-15 2022-01-15 Telephone MuRUST 1.2.952.227 [id number] Univers 00:00:00 00:00:00 Juma HEALTH 350.1.13.10 it y of [place] 4.2.7.2.686 [place] LEN?BLEA [phone] [facility] [address] MEDICAL OFFICE [facility] 2022-01-11 2022-01-11 Refill MuRUST 1.2.840.114 [id number] [facility] 00:00:00 00:00:00 Juma HEALTH 350.1.13.10 it y of [place] 4.2.7.2.686 [place] LEN?BLEA [phone] [facility] [address] MEDICAL OFFICE [facility] 2022-01-11 2022-01-11 Abdiaziz Taylor [facility] 1.2.840.114 [id number] [facility] 00:00:00 00:00:00 HEALTH 350.1.13.10 it y of [place] 4.2.7.2.686 [place] as LEN?BLEA [phone] [facility] [address] MEDICAL OFFICE BUILDING 2022-01-11 2022-01-11 Telephone DobbinsRUST 1.2.076.259 [id number] [facility] 00:00:00 00:00:00 Juma HEALTH 350.1.13.10 it y of [place] 4.2.7.2.686 [place] as LEN?BLEA [phone] [address] MEDICAL OFFICE BUILDING 2022-01-09 2022-01-09 Nurse Therapy, [facility] Covid Infusion [facility] 1.2.840.114 [id number] [facility] 16:00:00 17:00:00 Visit Larry Thomas 350.1.13.10 ity [place]2.7.2.[phone] [facility] [address] 2022-01-09 2022-01-09 Outpatient R MORRIS [facility] [id number] Univers 16:00:00 16:00:00 LARRY marcos [facility] 2022-01-09 2022-01-09 Outpatient R MORRIS [facility] [id number] Univers 16:00:00 16:00:00 LARRY marcos [facility] 2022-01-09 2022-01-09 Outpatient Raquel DOBBINS [facility] [id number] Univers 10:15:00 10:15:[address] [facility] 2022-01-09 2022-01-09 Telephone GucciRUST 1.2.167.050 [id number] Univers 00:00:00 00:00:00 [facility] 350.1.13.10 ity of [place] 4.2.7.2.686 [place] as LEN?BLEA [phone] [address] MEDICAL OFFICE BUILDING 2022-01-09 2022-01-09 Orders Doctor CORNELIA 1.2.840.114 [id number] Univers 00:00:00 00:00:00 Only Unassigned, JENNI 350.1.13.10 ity of [place] [facility] 4.2.7.2.686 [place] as [phone] [address] 2022-01-08 2022-01-08 Outpatient R GUCCI [facility] [id number] Univers 10:40:00 12:06:43 [facility] [facility] 2022-01-08 2022-01-08 Office GucciRUST 1.2.840.114 [id number] Univers 10:40:00 12:06:43 Visit [facility] 350.1.13.10 ity of [place] 4.2.7.2.686 Isr[place] as LEN?BLEA [phone] [address] MEDICAL OFFICE [facility] 2022-01-08 2022-01-08 Outpatient R GUCCI [facility] [id number] Univers 10:40:00 12:06:43 SALENA hemant [facility] 2022-01-04 2022-01-04 Outpatient R MU [facility] [id number] Univers 09:45:00 09:45:00 JUMA marcos [facility] 2022-01-03 2022-01-03 Refnery DobbinsRUST 1.2.840.114 [id number] Univers 00:00:00 00:00:00 Juma [facility] 350.1.13.10 it y of [place] 4.2.7.2.686 Isrrael as LEN?BLEA [phone] [address] OFFICE [facility] 2022-01-03 2022-01-03 Mary DobbinsRUST 1.2.840.114 [id number] Univers 00:00:00 00:00:00 Juma HEALTH 350.1.13.10 it y of [facility] 4.2.7.2.686 [place] as LEN?BLEA [id number] [address] OFFICE [facility] 2021-12-28 2021-12-28 Orders Doctor CORNELIA 1.2.840.114 [id number] Univers 00:00:00 00:00:00 Only Unassigned, JENNI 350.1.13.10 ity of [place] [facility] 4.2.7.2.686 Isrrael as [phone] [address] 2021-12-26 2021-12-26 Refill MuRUST 1.2.840.114 [id number] 96 Univers 00:00:00 00:00:00 Juma HEALTH 350.1.13.10 it y of [place] 4.2.7.2.686 Isrrael as LEN?BLEA [phone] [address] OFFICE [facility] 2021-12-25 2021-12-25 Telephone MuRUST 1.2.264.985 [id number] [id number] Univers 00:00:00 00:00:00 Juma HEALTH 350.1.13.10 it y of [place] 4.2.7.2.686 Isrrael as LEN?BLEA [phone] [address] MEDICAL OFFICE BUILDING 2021-12-17 2021-12-17 Orders Doctor CORNELIA 1.2.840.114 [id number] Univers 00:00:00 00:00:00 Only Unassigned, JENNI 350.1.13.10 ity of [place] [facility] 4.2.7.2.686 Isrrael as [phone] [address] 2021-12-15 2021-12-15 Telephone [facility] 1.2.651.204 [id number] Univers 00:00:00 00:00:00 [employer]Smith 350.1.13.10 it y of [place] 4.2.7.2.686 Isrrael as LEN?BLEA [id number] [address] MEDICAL OFFICE [facility] 2021-12-13 2021-12-13 [facility] Vaishali Natalya [facility] [id number] 20 [id number] [facility] St 10:50:13 23:59:00 Encounter [facility] 2021-12-13 2021-12-13 Outpatient NATALYA TOM [facility] [id number] SLE 10:50:13 23:59:00 2021-12-13 2021-12-13 [facility] Natalya Tom [facility] [id number] 20 [id number] [facility] 10:49:17 10:49:17 Encounter [facility] 2021-12-13 2021-12-13 Outpatient NATALYA TOM [facility] SLE [id number] SLE 10:49:17 10:49:17 2021-12-13 2021-12-13 Outpatient R ABDIAZIZ DESAI [facility] [id number] Univers 10:30:00 10:30:00 ABDIAZIZ DESAI [facility] 2021-12-07 2021-12-07 [facility] 1.2.639.420 [id number] Univers 00:00:00 00:00:00 [facility] 350.1.13.10 it y of [place] 4.2.7.2.686 Isrrael as LEN?BLEA [phone] Me oscar [address] MEDICAL OFFICE [facility] 2021-12-07 2021-12-07 Orders Doctor CORNELIA 1.2.840.114 [id number] Univers 00:00:00 00:00:00 Only Unassigned, JENNI 350.1.13.10 ity of [place] [facility]OSPITAL 4.2.7.2.686 Isrrael as [phone] [address] 2021-12-01 2021-12-01 Historical Transcripti [facility] [id number] [facility] 00:[facility] 00:00:00 Encounter on, [facility] 2021-12-01 2021-12-01 Historical YeNatalya early [facility] [id number] [facility] 00:00:[facility] 00:00:00 Encounter [facility] 2021-11-30 2021-11-30 Outpatient Raquel MENSAH, [facility] [id number] [facility] 14:15:00 14:15:00 MAGDA marcos [facility] 2021-11-24 2021-11-24 Outpatient NATALYA DARLING [facility] [id number] SLE 00:00:00 00:00:00 2021-11-24 2021-11-24 Outpatient NATALYA DARLING [facility] SLE [id number] SLEH 00:00:00 00:00:00 2021-11-22 2021-11-22 Telephone MuRUST 1.2.529.369 [id number] Univers 00:00:00 00:00:00 [facility] 350.1.13.10 it y of [facility] 4.2.7.2.686 [place] as LEN?BLEA [phone] Nm scott[address] OFFICE [facility] 2021-11-22 2021-11-22 Orders Doctor CORNELIA 1.2.840.114 [id number] Univers 00:00:00 00:00:00 Only Unassigned, JENNI 350.1.13.10 ity of [place] HOSPITAL 4.2.7.2.686 Isrrael as [phone] [address] 2021-11-15 2021-11-15 Refill MuRUST 1.2.840.114 [id number] Univers 00:00:00 00:00:00 [facility] 350.1.13.10 it y of [place] 4.2.7.2.686 Isrrael as LEN?BLEA [phone] Nm oscar [address] OFFICE [facility] 2021-11-15 2021-11-15 Telephone MuRUST 1.2.047.891 [id number] [id number] Univers 00:00:00 00:00:00 [facility] 350.1.13.10 it y of [place] 4.2.7.2.686 Isrrael as LEN?BLEA [phone] [address] OFFICE [facility] 2021-11-10 2021-11-10 Refill MuRUST 1.2.840.114 [id number] Univers 00:00:00 00:00:00 [facility] 350.1.13.10 it y of [place] 4.2.7.2.686 Isrrael as LEN?BLEA [phone] [address] OFFICE [facility] 2021-11-10 2021-11-10 Refill AdrianRUST 1.2.840.114 [id number] Univers 00:00:00 00:00:00 Dejah A HEALTH 350.1.13.10 i ty of [place] 4.2.7.2.686 Isrrael as LEN?BLEA [phone] [address] OFFICE [facility] 2021-11-09 2021-11-09 Outpatient R MU [facility] [id number] Univers 14:30:00 14:52:39 JUMA marcos [facility] 2021-11-09 2021-11-09 Office MuRUST 1.2.840.114 [id number] Univers 14:30:00 14:45:00 Visit [facility] 350.1.13.10 it y of [place] 4.2.7.2.686 Isrrael as LEN?BLEA [phone] [address] OFFICE [facility] 2021-11-09 2021-11-09 Outpatient Raquel DOBBINS [facility] [id number] Univers 14:30:00 14:30:00 JUMA ity [facility] 2021-11-08 2021-11-08 Refnery DobbinsRUST 1.2.840.114 [id number] Univers 00:00:00 00:00:00 [facility] 350.1.13.10 it y of [place] 4.2.7.2.686 [place] as LEN?BLEA [phone] [address] OFFICE [facility] 2021-11-01 2021-11-01 Patient Doctor [facility] 1.2.840.114 [id number] Univers 00:00:00 00:00:00 Secure Msg Unassigned, [facility] 350.1.13.10 ity [place] 4.2.7.2.686 Isrrael as LEN?BLEA [phone] [address] 2021-11-01 2021-11-01 Telephone DobbinsRUST 1.2.238.302 [id number] Univers 00:00:00 00:00:00 [facility] 350.1.13.10 it y of [place] 4.2.7.2.686 [place]rrael as LEN?BLEA [phone] [address] 2021-10-31 2021-10-31 Telephone DobbinsRUST 1.2.449.739 [id number] Univers 00:00:00 00:00:00 [facility] 350.1.13.10 it y of [place] 4.2.7.2.686 [place] as LEN?BLEA [phone] [address] OFFICE [facility] 2021-10-25 2021-10-25 Refill MuRUST 1.2.840.114 [id number] Univers 00:00:00 00:00:00 [facility] 350.1.13.10 it y of [place] 4.2.7.2.686 [place]rrael as LEN?BLEA [phone] [address] 2021-10-25 2021-10-25 Refnery DobbinsRUST 1.2.840.114 [id number] Univers 00:00:00 00:00:00 [facility] 350.1.13.10 it y of [facility] 4.2.7.2.686 [place] as LEN?BLEA [phone] [address] OFFICE [facility] 2021-10-24 2021-10-24 Patient Doctor OCRNELIA 1.2.840.114 [id number] Univers 00:00:00 00:00:00 Secure Msg Unassigned, JENNI 350.1.13.10 ity of [place] HOSPITAL 4.2.7.2.686 Isrrael as [phone] [address] 2021-10-24 2021-10-24 Telephone Mu, [facility] 1.2.192.123 [id number] Univers 00:00:00 00:00:00 Juma HEALTH 350.1.13.10 it y of [facility] 4.2.7.2.686 [place] as LEN?BLEA [phone] [address] OFFICE [facility] 2021-10-24 2021-10-24 Orders Doctor CORNELIA 1.2.840.114 [id number] Univers 00:00:00 00:00:00 Only Unassigned, JENNI 350.1.13.10 ity of [place] HOSPITAL 4.2.7.2.686 Isr[place] as [phone] [address] 2021-10-20 2021-10-20 Outpatient EL SLE SLE [id number] SLEH 12:28:39 12:28:39 2021-10-20 2021-10-20 Orders EL Natalya Tom [facility] [id number] 11:45:00 12:00:00 Only [facility] 2021-10-20 2021-10-20 Outside Natalya Tom [facility] [id number] 00:00:00 00:00:00 Orders [facility] 2021-10-20 2021-10-20 Historical Transcripti [facility] [id number] [facility] 00:[facility]00 00:00:00 Encounter on, [facility] 2021-10-20 2021-10-20 [id number] 00:00:00 00:00:00 Encounter [facility] 2021-10-19 2021-10-19 Asif DobbinsRUST 1.2.991.386 [id number] Univers 00:00:00 00:00:00 Juma [facility] 350.1.13.10 it y of [place] 4.2.7.2.686 Isr[place] as LEN?BLEA [id number] [address] OFFICE [facility] 2021-10-18 2021-10-18 Refill MuRUST 1.2.840.114 [id number] Univers 00:00:00 00:00:00 [facility] 350.1.13.10 it y of [place] 4.2.7.2.686 [place] as LEN?BLEA [phone] [address] 2021-10-17 2021-10-17 Outpatient R GISELLE [facility] [id number] Univers 09:30:00 09:30:[address] [facility] 2021-10-17 2021-10-17 Outpatient R GISELLE [facility] [id number] Univers 09:30:00 09:30:[address] [facility] 2021-10-16 2021-10-16 Outpatient R GISELLE [facility] [id number] Univers 14:30:00 15:42:[address] [facility] 2021-10-16 2021-10-16 [facility] 1.2.840.114 [id number] Univers 14:30:00 15:42:09 Visit HEALTH 350.1.13.10 it y of [place] 4.2.7.2.686 Isrrael as LEN?BLEA [id number] [facility] [address] OFFICE [facility] 2021-10-16 2021-10-16 Refnery DobbinsRUST 1.2.840.114 [id number] Univers 00:00:00 00:00:00 Juma HEALTH 350.1.13.10 it y of [place] 4.2.7.2.686 [place] as LEN?BLEA [phone] [address] MEDICAL OFFICE [facility] 2021-10-12 2021-10-12 [facility] 1.2.840.114 [id number] Univers 00:00:00 00:00:00 [facility] 350.1.13.10 it y of [facility] 4.2.7.2.686 [place] as LEN?BLEA [phone] [address] MEDICAL OFFICE [facility] 2021-10-09 2021-10-09 [facility] 1.2.840.114 [id number] Univers 00:00:00 00:00:00 [facility] 350.1.13.10 it y of [place] 4.2.7.2.686 [place]rrael as LEN?BLEA [id number] [address] OFFICE [facility] 2021-10-03 2021-10-03 Telephone [facility] 1.2.520.378 [id number] Univers 00:00:00 00:00:00 [facility] 350.1.13.10 it y of [place] 4.2.7.2.686 [place] as LEN?BLEA [phone] [address] OFFICE [facility] 2021-10-02 2021-10-02 Orders Doctor CORNELIA 1.2.840.114 [id number] Univers 00:00:00 00:00:00 Only Unassigned, JENNI 350.1.13.10 ity of [place] [facility] 4.2.7.2.686 Isrrael as [phone] [address] 2021-09-27 2021-09-27 Telephone [facility] 1.2.645.721 [id number] 1574 Univers 00:00:00 00:00:00 [facility] 350.1.13.10 it y of [facility] 4.2.7.2.686 Isr[place] as LEN?BLEA [phone] [address] OFFICE [facility] 2021-09-26 2021-09-26 Outpatient R DEIDRE [facility] [id number] Univers 10:45:00 10:45:00 SHERIF ity of [facility] 2021-09-26 2021-09-26 Telephone DobbinsRUST 1.2.769.608 [id number] Univers 00:00:00 00:00:00 Juma HEALTH 350.1.13.10 it y of [place] 4.2.7.2.686 Isr[place] as LEN?BLEA [phone] [facility] [address] MEDICAL OFFICE [facility] 2021-09-26 2021-09-26 Telephone DobbinsRUST 1.2.149.576 [id number] 2140 Univers 00:00:00 00:00:00 Juma HEALTH 350.1.13.10 it y of [place] 4.2.7.2.686 [place]rrael as LEN?BLEA [id number] [facility] [address] OFFICE [facility] 2021-09-21 2021-09-21 Telephone Abdiaziz Desai [facility] 1.2.731.167 [id number] Univers 00:00:00 00:00:00 HEALTH 350.1.13.10 it y of [place] 4.2.7.2.686 [place] as LEN?BLEA [phone] [facility] [address] MEDICAL OFFICE [facility] 2021-09-16 2021-09-16 Orders Doctor CORNELIA 1.2.840.114 [id number] Univers 00:00:00 00:00:00 Only Unassigned, JENNI 350.1.13.10 ity of [place] [facility] 4.2.7.2.686 Isrrael as [phone] [address] 2021-09-15 2021-09-15 Outpatient Raquel MCDUFFIE [facility] [id number] Univers 13:00:00 13:00:00 CAIO ity of [facility] 2021-09-15 2021-09-15 Refill MuRUST 1.2.840.114 [id number] Univers 00:00:00 00:00:00 [facility]uma [facility] 350.1.13.10 it y of [place] 4.2.7.2.686 [place] as LEN?BLEA [id number] [address] MEDICAL OFFICE [facility] 2021-09-15 2021-09-15 Telephone MuRUST 1.2.275.831 [id number] [id number] Univers 00:00:00 00:00:00 [facility] 350.1.13.10 it y of [place] 4.2.7.2.686 [place] as LEN?BLEA [phone] [address] MEDICAL OFFICE [facility] 2021-09-15 2021-09-15 Telephone DobbinsRUST 1.2.619.958 [id number] Univers 00:00:00 00:00:00 [facility] 350.1.13.10 it y of [facility] 4.2.7.2.686 [place] as LEN?BLEA [phone] [address] OFFICE [facility] 2021-09-06 2021-09-06 Telephone [facility] 1.2.794.213 [id number] Univers 00:00:00 00:00:00 Juma [facility] 350.1.13.10 it y of [facility] 4.2.7.2.686 [place] as LEN?BLEA [phone] [address] OFFICE [facility] 2021-08-31 2021-08-31 Orders Doctor CORNELIA 1.2.840.114 [id number] Univers 00:00:00 00:00:00 Only Unassigned, JENNI 350.1.13.10 ity of [place] [facility] 4.2.7.2.686 Isrrael as [phone] [address] 2021-08-30 2021-08-30 Telephone [facility] 1.2.323.106 [id number] Univers 00:00:00 00:00:00 [facility] 350.1.13.10 it y of [place] 4.2.7.2.686 [place] as LEN?BLEA [id number] [address] OFFICE [facility] 2021-08-28 2021-08-28 [facility] Natalya Tom [facility] [id number] [facility] 12:16:45 23:59:00 Encounter [facility] 2021-08-28 2021-08-28 Outpatient NATALYA TOM [facility] [id number] [facility] 12:16:45 23:59:00 2021-08-28 2021-08-28 [facility] Natalya Darling [facility] [id number] 12:06:02 12:15:00 Encounter [facility] 2021-08-28 2021-08-28 Outpatient NATALYA DARLING [facility] SLE [id number] SLE 12:06:02 12:15:00 2021-08-28 2021-08-28 Outside Natalya Tom [facility] [id number] 00:00:00 00:00:00 Orders [facility] 2021-08-22 2021-08-22 Telephone MuRUST 1.2.967.576 [id number] Univers 00:00:00 00:00:00 [facility] 350.1.13.10 it y of [place] 4.2.7.2.686 [place] as LEN?BLEA [phone] [facility] [address] OFFICE [facility] 2021-08-22 2021-08-22 Telephone Mu [facility] 1.2.758.684 [id number] Univers 00:00:00 00:00:00 Juma HEALTH 350.1.13.10 it y of [facility] 4.2.7.2.686 [place] as LEN?BLEA [id number] [facility] [address] OFFICE [facility] 2021-08-21 2021-08-21 Outpatient R MAMIE [facility] [id number] Univers 14:30:00 14:30:00 CARLOZ ity [facility] 2021-08-16 2021-08-16 Orders Doctor LOCKE 1.2.840.114 [id number] Univers 00:00:00 00:00:00 Only Unassigned, JENNI 350.1.13.10 ity of [place] [facility] 4.2.7.2.686 [place] as [phone] [address] 2021-08-15 2021-08-15 Refill MuRUST 1.2.840.114 [id number] Univers 00:00:00 00:00:00 Juma [facility] 350.1.13.10 it y of [facility] 4.2.7.2.686 [place] as LEN?BLEA [phone] Nm dical KNRAULITO [address] OFFICE [facility] 2021-08-15 2021-08-15 Telephone DobbinsRUST 1.2.049.951 [id number] 4104 Univers 00:00:00 00:00:00 [facility] 350.1.13.10 it y of [place] 4.2.7.2.686 [place] as LEN?BLEA [phone] Nm dical ANAMIKAEY [address] OFFICE [facility] 2021-08-11 2021-08-11 Nurse Nurse, Ad[facility] Surgery [facility] 1.2. 840.114 [id number] Univers 15:00:00 15:00:00 Visit Carloz Hatch 350.1.13.10 ity of [place].7.2.[place] PERE[place] [id number] Nm dicangelo [address] 2021-08-11 2021-08-11 Outpatient R MAMIE [facility] [id number] Univers 15:00:00 14:57:03 CARLOZ ity [facility] 2021-08-09 2021-08-09 Refnery CalixRUST 1.2.840.114 [id number] Univers 00:00:00 00:00:00 Veronica HEALTH 350.1.13.10 it y of [place] 4.2.7.2.686 Isrrael as LEN?BLEA [phone] Nm dical [address] OFFICE [facility] 2021-08-09 2021-08-09 Refnery CalixRUST 1.2.840.114 [id number] Univers 00:00:00 00:00:00 Veronica HEALTH 350.1.13.10 it y of [place] 4.2.7.2.686 [place] as LEN?BLEA [phone] Nm dical KNEY [address] [place] [address] OFFICE [facility] 2021-08-08 2021-08-08 Telephone DobbinsRUST 1.2.081.822 [id number] Univers 00:00:00 00:00:00 Juma [facility]ALTH 350.1.13.10 it y of [place] 4.2.7.2.686 [place] as LEN?BLEA [phone] [address] MEDICAL OFFICE [facility] 2021-08-08 2021-08-08 Orders Doctor CORNELIA 1.2.840.114 [id number] Univers 00:00:00 00:00:00 Only Unassigned, JENNI 350.1.13.10 ity of [place] [facility]OSPITAL 4.2.7.2.686 Isrrael as [phone] [address] 2021-08-02 2021-08-02 Telephone [facility] 1.2.126.073 [id number] 9244 Univers 00:00:00 00:00:00 Juma HEALTH 350.1.13.10 it y of [place] 4.2.7.2.686 [place] as LEN?BLEA [phone] [address] MEDICAL OFFICE [facility] 2021-08-01 2021-08-01 [facility]phone [facility] 1.2.106.265 [id number] 8742 Univers 00:00:00 00:00:00 Juma HEALTH 350.1.13.10 it y of [place] 4.2.7.2.686 Isrrael as LEN?BLEA [id number] [address] OFFICE [facility] 2021-07-28 2021-07-28 Outside Natalya Tom [facility] [id number] [facility] St 00:00:00 00:00:00 Orders [facility] 2021-07-25 2021-07-25 Telephone MuRUST 1.2.521.779 [id number] Univers 00:00:00 00:00:00 Juma HEALTH 350.1.13.10 it y of [place] 4.2.7.2.686 Irs[place] as LEN?BLEA [phone] [address] MEDICAL OFFICE [facility] 2021-07-25 2021-07-25 Orders Doctor LOCKE 1.2.840.114 [id number] Univers 00:00:00 00:00:00 Only Unassigned, JENNI 350.1.13.10 ity of [place] [facility]PITAL 4.2.7.2.686 Isrrael as [phone] [address] 2021-07-24 2021-07-24 Telephone [facility] 1.2.862.084 [id number] 1095 Univers 00:00:00 00:00:00 Juma HEALTH 350.1.13.10 it y of [place] 4.2.7.2.686 Isrrael as LEN?BLEA [id number] [address] MEDICAL OFFICE [facility] 2021-07-24 2021-07-24 Orders Doctor CORNELIA 1.2.840.114 [id number] Univers 00:00:00 00:00:00 Only Unassigned, JENNI 350.1.13.10 ity of [place] [facility]OSPITAL 4.2.7.2.686 Isrrael as [phone] [address] 2021-07-21 2021-07-21 Telephone [facility] 1.2.414.577 [id number] 6307 Univers 00:00:00 00:00:00 Juma HEALTH 350.1.13.10 it y of [facility] 4.2.7.2.686 [place] as LEN?BLEA [id number] [address] OFFICE [facility] 2021-07-21 2021-07-21 Telephone [facility] 1.2.291.621 [id number] 6755 Univers 00:00:00 00:00:00 Juma HEALTH 350.1.13.10 it y of [facility] 4.2.7.2.686 [place] as LEN?BLEA [phone] [address] MEDICAL OFFICE [facility] 2021-07-21 2021-07-21 Orders Doctor CORNELIA 1.2.840.114 [id number] Univers 00:00:00 00:00:00 Only Unassigned, JENNI 350.1.13.10 ity of [place] [facility] 4.2.7.2.686 [place] as [phone] [address] 2021-07-20 2021-07-20 Outpatient R MAMIE [facility] [id number] Univers 13:15:00 14:37:37 CARLOZ ity [facility] 2021-07-20 2021-07-20 Office Mamie [facility] 1.2.840.114 [id number] Univers 13:15:00 14:37:37 Visit [facility] TERE 350.1.13.10 i ty [place] [phone] Nm oscar KEATING [address] [facility] 2021-07-20 2021-07-20 Outpatient R MAMIE [facility] [id number] Univers 13:15:00 14:37:37 CARLOZ ity of [facility] 2021-07-20 2021-07-20 Telephone [facility] [id number] Univers 00:00:00 00:00:00 [facility] 350.1.13.10 it y of [facility] 4.2.7.2.686 [place] as LEN?BLEA [phone] Nm dicangelo [address] OFFICE [facility] 2021-07-20 2021-07-20 Orders Doctor CORNELIA 1.2.840.114 [id number] Univers 00:00:00 00:00:00 Only Unassigned, JENNI 350.1.13.10 ity of [place] [facility] 4.2.7.2.686 [place] as [phone] [address] 2021-07-20 2021-07-20 Telephone [facility] [id number] Univers 00:00:00 00:00:00 [facility] 350.1.13.10 it y of [place] 4.2.7.2.686 [place] as LEN?BLEA [phone] Nm dicangelo ABDULLAHI [address] [place] [address] 2021-07-20 2021-07-20 Telephone [facility] [id number] Univers 00:00:00 00:00:00 [facility] 350.1.13.10 it y of [place] 4.2.7.2.686 [place] as LEN?BLEA [phone] Nm dicangelo [address] OFFICE [facility] 2021-07-14 2021-07-14 Orders Doctor CORNELIA 1.2.840.114 [id number] Univers 00:00:00 00:00:00 Only Unassigned, JENNI 350.1.13.10 ity of [place] [facility] 4.2.7.2.686 [place] as [phone] [address] 2021-07-05 2021-07-05 Orders Doctor CORNELIA 1.2.840.114 [id number] Univers 00:00:00 00:00:00 Only Unassigned, JENNI 350.1.13.10 ity of [place] [facility] 4.2.7.2.686 [place] as [phone] [address] 2021-06-22 2021-06-22 Outpatient R MU [facility] [id number] Univers 09:30:00 09:30:00 JUMA ity [facility] 2021-06-22 2021-06-22 Outpatient R MU [facility] [id number] Univers 09:30:00 09:30:00 JUMA ity [facility] 2021-06-22 2021-06-22 Outpatient Raquel DOBBINS [facility] [id number] Univers 09:30:00 09:30:00 JUMA ity [facility] 2021-06-14 2021-06-14 Telephone [facility] [id number] Univers 00:00:00 00:00:00 [place] [facility] 350.1.13.10 it y of [facility] 4.2.7.2.686 [place] as LEN?BLEA [phone] [address] MEDICAL OFFICE [facility] 2021-06-14 2021-06-14 Orders Doctor CORNELIA 1.2.840.114 [id number] Univers 00:00:00 00:00:00 Only Unassigned, JENNI 350.1.13.10 ity of [place] [facility] 4.2.7.2.686 [place] as [phone] [address] 2021-06-12 2021-06-12 Office [facility] 1.2.840.114 [id number] Univers 08:45:00 09:00:00 Visit [facility] 350.1.13.10 it y of [place] 4.2.7.2.686 Isrrael as LEN?BLEA [phone] [address] MEDICAL OFFICE BUILDING 2021-06-12 2021-06-12 Outpatient Raquel DOBBINS [facility] [id number] Univers 08:45:00 08:45:00 JUMA ity [facility] 2021-06-12 2021-06-12 Outpatient R MU [facility] [id number] Univers 08:45:00 08:45:00 JUMA marcos [facility] 2021-06-08 2021-06-08 Refill MuRUST 1.2.840.114 [id number] Univers 00:00:00 00:00:00 [facility] 350.1.13.10 it y of [facility] 4.2.7.2.686 [place] as LEN?BLEA [phone] [address] MEDICAL OFFICE BUILDING 2021-06-08 2021-06-08 Orders Doctor CORNELIA 1.2.840.114 [id number] Univers 00:00:00 00:00:00 Only Unassigned, JENNI 350.1.13.10 ity of [place] [facility] 4.2.7.2.686 Isrrael as [phone] [address] 2021-06-07 2021-06-07 [facility] Natalya Tom [facility] [id number] [address] 12:11:06 23:59:00 [facility] 2021-06-07 2021-06-07 Outpatient [facility] [id number] SLE 12:11:06 23:59:00 2021-06-07 2021-06-[facility] [id number] [address] 12:10:59 12:10:59 Encounter 1, [facility] [address] Room [facility] 2021-06-07 2021-06-07 Outpatient NATALYA [facility] [id number] SLE 12:10:59 12:10:59 2021-06-07 2021-06-07 Telephone MuRUST 1.2.471.175 [id number] Univers 00:00:00 00:00:00 [facility] 350.1.13.10 it y of [facility] 4.2.7.2.686 Isrrael as LEN?BLEA [phone] [facility] [address] MEDICAL OFFICE [facility] 2021-06-06 2021-06-06 Telephone DobbinsRUST 1.2.677.344 [id number] Univers 00:00:00 00:00:00 [facility] 350.1.13.10 it y of [facility] 4.2.7.2.686 Isrrael as LEN?BLEA [phone] [address] MEDICAL OFFICE [facility] 2021-06-01 2021-06-01 Telephone DobbinsRUST 1.2.980.120 [id number] [id number] Univers 00:00:00 00:00:00 [facility] 350.1.13.10 it y of [place] 4.2.7.2.686 Isrrael as LEN?BLEA [phone] [address] OFFICE [facility] 2021-05-31 2021-05-31 Telephone [facility] 1.2.080.670 [id number] [id number] Univers 00:00:00 00:00:00 [facility] 350.1.13.10 it y of [place] 4.2.7.2.686 [place]rrael as LEN?BLEA [phone] [address] MEDICAL OFFICE [facility] 2021-05-31 2021-05-31 Orders Doctor CORNELIA 1.2.840.114 [id number] Univers 00:00:00 00:00:00 Only Unassigned, JENNI 350.1.13.10 ity of [place] [facility] 4.2.7.2.686 Isrrael as [phone] [address] 2021-05-29 2021-05-29 [facility], Ang - Db [facility] 1.2.840.1 [id number] Univers 11:30:00 11:45:00 Visit Veronica Calix 350.1.13.10 ity of [place] 4.2.7.2.686 Isrrael as LEN?BLEA [phone] [facility] [address] OFFICE [facility] 2021-05-29 2021-05-29 Outpatient R FIFI [facility] [id number] Univers 11:30:00 11:30:00 VERONICA ity of [facility] 2021-05-29 2021-05-29 Office Fifi [facility] 1.2.840.114 [id number] Univers 10:30:00 11:28:44 Visit Veronica HEALTH 350.1.13.10 it y of [place] 4.2.7.2.686 Isrrael as LEN?BLEA [phone] [address] OFFICE [facility] 2021-05-29 2021-05-29 [facility] [id number] Univers 10:30:00 11:28:44 VERONICA ity [facility] 2021-05-23 2021-05-23 Orders Doctor CORNELIA 1.2.840.114 [id number] Univers 00:00:00 00:00:00 Only Unassigned, JENNI 350.1.13.10 ity of [place] [facility] 4.2.7.2.686 Isrrael as [phone] [address] 2021-05-08 2021-05-08 Outside Natalya Tom [facility] [id number] [facility] 00:00:00 00:00:00 Orders [facility] 2021-04-26 2021-04-26 Telephone DobbinsRUST 1.2.570.717 [id number] [id number] Univers 00:00:00 00:00:00 [facility] 350.1.13.10 it y of [place] 4.2.7.2.686 Isrrael as LEN?BLEA [phone] [address] OFFICE [facility] 2021-04-25 2021-04-25 Telephone DobbinsRUST 1.2.317.208 [id number] 5050 Univers 00:00:00 00:00:00 [facility] 350.1.13.10 it y of [place] 4.2.7.2.686 Isrrael as LEN?BLEA [phone] [address] OFFICE [facility] 2021-04-23 2021-04-23 Orders Doctor CORNELIA 1.2.840.114 [id number] Univers 00:00:00 00:00:00 Only Unassigned, JENNI 350.1.13.10 ity of [place] [facility] 4.2.7.2.686 Isrrael as [phone] [address] 2021-04-20 2021-04-20 Refnery DobbinsRUST 1.2.840.114 [id number] Univers 00:00:00 00:00:00 [facility] 350.1.13.10 it y of [place] 4.2.7.2.686 Isrrael as PROFESSIO [phone] [address] OFFICE [facility] ONE 2021-04-20 2021-04-20 Refnery DobbinsRUST 1.2.840.114 [id number] Univers 00:00:00 00:00:00 [facility] 350.1.13.10 it y of [place] 4.2.7.2.686 Isrrael as PROFESSIO [phone] [address] ONE 2021-04-19 2021-04-19 Telephone MuRUST 1.2.688.499 [id number] [id number] Univers 00:00:00 00:00:00 [facility] 350.1.13.10 it y of [place] 4.2.7.2.686 Isrrael as LEN?BLEA [phone] [address] OFFICE [facility] 2021-04-11 2021-04-11 Telephone DobbinsRUST 1.2.833.987 [id number] 4844 Univers 00:00:00 00:00:00 [facility] 350.1.13.10 it y of [place] 4.2.7.2.686 Isrrael as LEN?BLEA [phone] [address] OFFICE [facility] 2021-04-11 2021-04-11 Orders Doctor CORNELIA 1.2.840.114 [id number] Univers 00:00:00 00:00:00 Only Unassigned, JENNI 350.1.13.10 ity of [place] [facility] 4.2.7.2.686 Isrrael as [phone] [address] 2021-04-04 2021-04-04 Telephone Mu[facility] 1.2.340.983 [id number] 1545 Univers 00:00:00 00:00:00 [facility] 350.1.13.10 it y of [place] 4.2.7.2.686 Isrrael as LEN?BLEA [phone] [address] OFFICE [facility] 2021-04-04 2021-04-04 Refill Mu[facility]UST 1.2.840.114 [id number] Univers 00:00:00 00:00:00 [facility] 350.1.13.10 it y of [facility] 4.2.7.2.686 Isrrael as LEN?BLEA [phone] [address] OFFICE [facility] 2021-04-03 2021-04-03 Telephone Mu[facility]UST 1.2.723.102 [id number] [id number] Univers 00:00:00 00:00:00 [facility] 350.1.13.10 it y of [facility] 4.2.7.2.686 [place] as LEN?BLEA [phone] [address] OFFICE [facility] 2021-04-03 2021-04-03 Orders Doctor CORNELIA 1.2.840.114 [id number] Univers 00:00:00 00:00:00 Only Unassigned, JENNI 350.1.13.10 ity of [place] [facility] 4.2.7.2.686 Isr[place] as [phone] [address] 2021-03-29 2021-03-29 Telephone Mu[facility]UST 1.2.650.446 [id number] 7160 Univers 00:00:00 00:00:00 [facility] 350.1.13.10 it y of [facility] 4.2.7.2.686 [place] as LEN?BLEA [phone] [address] OFFICE [facility] 2021-03-29 2021-03-29 Telephone Mu[facility] 1.2.087.158 [id number] 2533 Univers 00:00:00 00:00:00 [facility] 350.1.13.10 it y of [place] 4.2.7.2.686 [place] as LEN?BLEA [phone] [address] OFFICE [facility] 2021-03-29 2021-03-29 Telephone Mu[facility] 1.2.593.103 [id number] 9465 Univers 00:00:00 00:00:00 [facility] 350.1.13.10 it y of [facility] 4.2.7.2.686 [place] as LEN?BLEA [phone] [address] OFFICE [facility] 2021-03-29 2021-03-29 Refill Mu[facility]UST 1.2.840.114 [id number] Univers 00:00:00 00:00:00 [facility] 350.1.13.10 it y of [facility] 4.2.7.2.686 Isrrael as PROFESSIO [phone] [address] OFFICE BUILDING ONE 2021-03-28 2021-03-28 Telephone DobbinsRUST 1.2.145.795 [id number] 5762 Univers 00:00:00 00:00:00 [facility] 350.1.13.10 it y of [facility] 4.2.7.2.686 [place] as LEN?BLEA [phone] [address] OFFICE [facility] 2021-03-24 2021-03-24 Orders Doctor CORNELIA 1.2.840.114 [id number] Univers 00:00:00 00:00:00 Only Unassigned, JENNI 350.1.13.10 ity of [place] [facility] 4.2.7.2.686 Isr[place] as [phone] [address] 2021-03-22 2021-03-22 Office Mu[facility] 1.2.840.114 [id number] Univers 09:31:44 10:01:09 Visit [facility] 350.1.13.10 it y of [place] 4.2.7.2.686 Isrrael as LEN?BLEA [phone] [address] OFFICE [facility] 2021-03-22 2021-03-22 Outpatient R MU [facility] [id number] Univers 09:30:00 10:01:09 JUMA marcos [facility] 2021-03-17 2021-03-17 Outpatient R ADRIAN [facility] [id number] Univers 14:00:00 14:17:17 DEJAH marcos [facility] 2021-03-17 2021-03-17 Office AdrianRUST 1.2.840.114 [id number] Univers 13:47:23 14:17:17 Visit Dejah Aquino [facility] 350.1.13.10 i ty of [place] 4.2.7.2.686 [place] as LEN?BLEA [phone] [address] OFFICE [facility] 2021-03-03 2021-03-03 Telephone Mu COJAMIE 1.2.351.493 [id number] [id number] Univers 00:00:00 00:00:00 [facility] 350.1.13.10 it y of [place] 4.2.7.2.686 [place] as LEN?BLEA [phone] [address] OFFICE [facility] 2021-03-02 2021-03-02 Orders Doctor CORNELIA 1.2.840.114 [id number] Univers 00:00:00 00:00:00 Only Unassigned, JENNI 350.1.13.10 ity of [place] [facility] 4.2.7.2.686 Isrrael as [phone] [address] 2021-02-20 2021-02-20 Telephone Mu[facility]UST 1.2.380.727 [id number] [id number] Univers 00:00:00 00:00:00 [facility] 350.1.13.10 it y of [place] 4.2.7.2.686 Isrrael as Len?Blea [phone] [address] Office [facility] 2021-02-05 2021-02-05 Refill MuWOBURN, UTJAMIE 1.2.840.114 [id number] Univers 00:00:00 00:00:00 [facility] 350.1.13.10 it y of [place] 4.2.7.2.686 Isrrael as Professio [phone] [address] One 2021-02-02 2021-02-02 Outpatient NATALYA DARLING [facility] [id number] SLE 16:58:25 23:59:00 2021-02-02 2021-02-02 Outpatient NATALYA DARLING [facility] [id number] SLE 16:58:18 23:59:00 2021-02-01 2021-02-01 Telephone Mu[facility]UST 1.2.410.910 [id number] Univers 00:00:00 00:00:00 [facility] 350.1.13.10 it y of [place] 4.2.7.2.686 Isr[place] as Len?Blea [phone] [address] Office [facility] 2021-01-26 2021-01-26 Office Mu[facility] 1.2.840.114 [id number] Univers 13:55:23 14:28:[facility] 350.1.13.10 it y of [place] 4.2.7.2.686 Isrrael as Len?Blea [phone] [address] Office [facility] 2021-01-26 2021-01-26 Outpatient [facility] [id number] Univers 14:00:00 14:00:00 JUMA ity [facility] 2021-01-25 2021-01-25 Office AdrianRUST 1.2.840.114 [id number] Univers 16:29:18 17:05:47 Visit Dejah A [employer] 350.1.13.10 i ty of [place] 4.2.7.2.686 Isrrael as Len?Blea [phone] [address] Office [facility] 2021-01-25 2021-01-25 Outpatient R ADRIAN [facility] [id number] Univers 16:30:00 16:30:00 DEJAH marcos [facility] 2021-01-24 2021-01-24 Telephone Mu[facility]UST 1.2.716.130 [id number] Univers 00:00:00 00:00:00 Juma [employer] 350.1.13.10 it y of [place] 4.2.7.2.686 Isrrael as Len?Blea [phone] [address] Office [facility] 2021-01-23 2021-01-23 Outpatient NATALYA TOM [facility] [id number] SLE 00:00:00 00:00:00 2021-01-23 2021-01-23 Outpatient EL NATALYA TOM [facility] [id number] SLE 00:00:00 00:00:00 2021-01-23 2021-01-23 Orders Doctor CORNELIA 1.2.840.114 [id number] Univers 00:00:00 00:00:00 Only Unassigned, JENNI 350.1.13.10 ity of [place] [facility] 4.2.7.2.686 Isrrael as [phone] [address] 2021-01-05 2021-01-05 Telephone Mu [facility] 1.2.445.522 [id number] Univers 00:00:00 00:00:00 [facility] 350.1.13.10 it y of [place] 4.2.7.2.686 Isrrael as Len?Blea [phone] [address] Office Building 2020-12-20 2020-12-20 Office MuRUST 1.2.840.114 [id number] Univers 09:28:54 09:43:[address] [facility] 350.1.13.10 it y of [place] 4.2.7.2.686 Isrrael as Len?Blea [phone] [address] Office Building 2020-12-20 2020-12-20 Outpatient R MU [facility] [id number] Univers 09:15:00 09:15:00 [facility] 2020-12-16 2020-12-16 Outpatient Raquel GARCIA [facility] [id number] Univers 09:30:00 09:30:00 [facility] 2020-12-15 2020-12-15 Outpatient Raquel GARCIA [facility] [id number] Univers 12:30:00 12:30:00 [facility] 2020-12-01 2020-12-01 Refill Mu[facility]UST 1.2.840.114 [id number] Univers 00:00:00 00:00:00 [facility] 350.1.13.10 it y of [place] 4.2.7.2.686 [place]rrael as Professio [phone] [address] Office Building One 2020-12-01 2020-12-01 Telephone Mu[facility]UST 1.2.307.146 [id number] Univers 00:00:00 00:00:00 [facility] 350.1.13.10 it y of [place] 4.2.7.2.686 [place]rrael as Professio [phone] Nm dical [address] One 2020-12-01 2020-12-01 Refill MuRUST 1.2.840.114 [id number] 00:00:00 00:00:00 [facility] 350.1.13.10 [place] 4.2.7.2.686 Professio [phone] [address] One 2020-12-01 2020-12-01 Telephone Mu[facility]UST 1.2.672.402 [id number] 00:00:00 00:00:00 [facility] 350.1.13.10 [place] 4.2.7.2.686 Professio [phone] [address] 2020-11-25 2020-11-25 Outpatient Raquel GARCIA [facility] [id number] Univers 13:40:00 13:40:00 [facility] 2020-11-24 2020-11-24 Outpatient aRquel GARCIA [facility] [id number] Univers 14:50:00 14:50:00 [facility] 2020-11-02 2020-11-02 Orders Doctor CORNELIA 1.2.840.114 [id number] Univers 00:00:00 00:00:00 Only Unassigned, JENNI 350.1.13.10 ity of [place] [facility] 4.2.7.2.686 Isrrael as [phone] [address] 2020-11-02 2020-11-02 Orders Doctor LOCKE 1.2.840.114 [id number] 00:00:00 00:00:00 Only Unassigned, JENNI 350.1.13.10 [place] [facility] 4.2.7.2.686 [id number] 009 2020-10-28 2020-10-28 Outpatient NATALYA TOM [facility] SLE [id number] SLE 00:00:00 00:00:00 2020-10-28 2020-10-28 Outpatient EL NATALYA TOM [facility] [id number] SLE 00:00:00 00:00:00 2020-10-28 2020-10-28 [facility] 1.2.840.114 [id number] Univers 00:00:00 00:00:00 [facility] 350.1.13.10 it y of [place] 4.2.7.2.686 [place]rrael as Professio [phone] [address] Office [facility] One 2020-10-28 2020-10-28 [facility] 1.2.840.114 [id number] 97 00:00:00 00:00:00 [facility] 350.1.13.10 [place] 4.2.7.2.686 Professio [phone] [address] One 2020-10-27 2020-10-27 [facility] 1.2.405.396 [id number] [id number] Univers 00:00:00 00:00:00 [facility] 350.1.13.10 it y of [place] 4.2.7.2.686 [place]rrael as Professio [phone] [address] One 2020-10-27 2020-10-27 [place] [facility] 1.2.887.574 [id number] 00:00:00 00:00:00 [facility] 350.1.13.10 [place] 4.2.7.2.686 Professio [phone] [address] One 2020-10-26 2020-10-26 Outpatient NATALYA TOM [facility] [id number] SLE 00:00:00 00:00:00 2020-10-26 2020-10-26 Outpatient EL NATALYA TOM [facility] [id number] SLE 00:00:00 00:00:00 2020-10-25 2020-10-25 Orders Doctor CORNELIA 1.2.840.114 [id number] 00:00:00 00:00:00 Only Unassigned, JENNI 350.1.13.10 ity of [place] [facility] 4.2.7.2.686 Isrrael as [phone] [address] 2020-10-25 2020-10-25 Orders Doctor CORNELIA 1.2.840.114 [id number] 00:00:00 00:00:00 Only Unassigned, JENNI 350.1.13.10 [place] [facility] 4.2.7.2.686 [id number] 009 2020-10-20 2020-10-20 Telephone Mu [facility] 1.2.203.330 [id number] [facility] 00:00:00 00:00:00 [facility] 350.1.13.10 it y of [place] 4.2.7.2.686 [place]rrael as Professio [phone] [address] Office Building One 2020-10-20 2020-10-20 Telephone Mu [facility] 1.2.450.692 [id number] 3127 00:00:00 00:00:00 [facility] 350.1.13.10 [place] 4.2.7.2.686 Professio [phone] nal [facility] Office Building One 2020-10-19 2020-10-19 Refnery Calix [facility] 1.2.840.114 [id number] Univers 00:00:00 00:00:00 Veronica [facility] 350.1.13.10 it y of [place] 4.2.7.2.686 [place]rrael as Professio [phone] Nm dicco nal [address] Office Building One 2020-10-19 2020-10-19 Refnery Calix [facility] 1.2.840.114 [id number] 00:00:00 00:00:00 Veronica [facility] 350.1.13.10 [place] 4.2.7.2.686 Professio [phone] nal [facility] Office Building One 2020-10-18 2020-10-18 Urgent Provider, [facility] [place] 1.2.840.114 [id number] Univers 15:10:31 15:52:18 Care Monalisa [facility] 350.1.13.10 ity of [place] 4.2.7.2.686 [place]rrael as Professio [phone] Nm dicco nal [address] [place] [address] Office Building One 2020-10-18 2020-10-18 Urgent Provider, [facility] 1.2.891.656 [id number] 15:10:31 15:52:18 Care [facility] 350.1.13.10 Care [place] 4.2.7.2.686 Professio [phone] [place] [address] Office Building One 2020-10-18 2020-10-18 Outpatient R FIFI [facility] [id number] Univers 15:20:00 15:20:00 VERONICA ity [facility] 2020-10-06 2020-10-06 Refill DobbinsRUST 1.2.840.114 [id number] Univers 00:00:00 00:00:00 [facility] 350.1.13.10 it y of [place] 4.2.7.2.686 [place] as Professio [phone] [address] Office [facility] 2020-10-06 2020-10-06 Refill DobbinsRUST 1.2.840.114 [id number] 00:00:00 00:00:00 [facility] 350.1.13.10 [place] 4.2.7.2.686 Professio [phone] [address] 2020-10-04 2020-10-04 Telephone DobbinsRUST 1.2.300.497 [id number] [id number] Univers 00:00:00 00:00:00 [facility] 350.1.13.10 it y of [place] 4.2.7.2.686 [place] as Professio [phone] [address] Office [facility] 2020-10-04 2020-10-04 Orders Doctor CORNELIA 1.2.840.114 [id number] Univers 00:00:00 00:00:00 Only Unassigned, JENNI 350.1.13.10 ity of [place] [facility] 4.2.7.2.686 Isrrael as [phone] [address] 2020-10-04 2020-10-04 Telephone Mu[facility]UST 1.2.427.211 [id number] [id number] 00:00:00 00:00:00 [facility] 350.1.13.10 [place] 4.2.7.2.686 Professio [phone] [place] [address] Office Building One 2020-10-04 2020-10-04 Orders Doctor CORNELIA 1.2.840.114 [id number] 00:00:00 00:00:00 Only Unassigned, JENNI 350.1.13.10 [place] [facility] [id number] [phone] 2020-10-03 Telephone DobbinsRUST 1.2.192.038 [id number] [facility] 00:00:00 00:00:00 [facility] 350.1.13.10 it y of [place] 4.2.7.2.686 [place] as Professio [phone] [address] Office [facility] One 2020-10-03 2020-10-03 Telephone DobbinsRUST 1.2.256.920 [id number] 00:00:00 00:00:00 [facility] 350.1.13.10 [place] 4.2.7.2.686 Professio [phone] [place] [address] Office [facility] One 2020-09-30 2020-09-30 Outpatient [facility] [id number] Univers 10:00:00 10:00:00 JUMA marcos [facility] 2020-09-30 2020-09-30 [facility], [facility] 1.2. 840.114 [id number] [facility] 08:53:12 09:13:12 Visit Juma Dobbins [facility] 350.1.13.10 ity of [place] 4.2.7.2.686 [place] as Professio [phone] [address] Office [facility] One 2020-09-30 2020-09-30 [facility], [facility] 1.2.840.114 [id number] 08:53:12 09:13:12 Visit [facility] 350.1.13.10 [place] 4.2.7.2.686 Professio [phone] [place] [address] Office Building One 2020-09-29 2020-09-29 Office MuRUST 1.2.840.114 [id number] [facility] 11:54:53 12:09:53 Visit [facility] 350.1.13.10 it y of [place] 4.2.7.2.686 [place] as Professio [phone] [address] Office [facility] One 2020-09-29 2020-09-29 Office Mu[facility]UST 1.2.840.114 [id number] 11:54:53 12:09:[address] [facility] 350.1.13.10 [place] 4.2.7.2.[address] Professio [phone] [address] One 2020-09-29 2020-09-29 Outpatient R [facility] [id number] Univers 12:00:00 12:00:00 JUMA itrobert [facility] 2020-09-28 2020-09-28 Telephone DobbinsRUST 1.2.646.126 [id number] [id number] Univers 00:00:00 00:00:00 [facility] 350.1.13.10 it y of [place] 4.2.7.2.686 [place] Professio [phone] [address] Office [facility] One 2020-09-25 2020-09-25 Orders Doctor CORNELIA 1.2.840.114 [id number] Univers 00:00:00 00:00:00 Only Unassigned, JENNI 350.1.13.10 ity of [place] [facility] 4.2.7.2.686 [place] as [phone] [address] 2020-09-25 2020-09-25 Orders Doctor CORNELIA 1.2.840.114 [id number] 00:00:00 00:00:00 Only Unassigned, JENNI 350.1.13.10 [place] [facility] 4.2.7.2.686 [phone] 2020-09-20 2020-09-20 Telephone MuRUST [id number] [id number] Univers 00:00:00 00:00:00 [facility] 350.1.13.10 it y of [place] 4.2.7.2.686 [place] Professio [phone] [address] Office Building One 2020-09-132020-09-13 Mary DobbinsRUST 1.2.840.114 [id number] Univers 00:00:00 00[facility]00[facility]13.10 [facility] [place] 4.2.7.2.686 [place] Professio [phone] Nm dical nal 044 [facility] One 2020-09-04 2020-09-04 Mary DobbinsRUST 1.2.840.114 [id number] Univers 00:00:00 00:00:00 [facility] 350.1.13.10 it y of [place] 4.2.7.2.686 [place] Professio [phone] Nm dical nal 044 [facility] One 2020-08-30 2020-08-30 Mary DobbinsRUST 1.2.840.114 [id number] Univers 00:00:00 00:00:00 [facility] 350.1.13.10 it y of [place] 4.2.7.2.686 [place] Professio [phone] Nm dical nal 044 [facility] One 2020-08-12 2020-08-12 Patient Doctor CORNELIA 1.2.840.114 [id number] Univers 00:00:00 00:00:00 Secure Msg Unassigned, JENNI 350.1.13.10 [facility] 4.2.7.2.686 [place] as [phone] [address] 2020-08-09 2020-08-09 Outpatient [facility] [id number] SLE 00:00:00 00:00:00 2020-08-09 2020-08-09 Outpatient YESharath [facility] [id number] [facility] 00:00:00 00:00:00 2020-08-09 2020-08-09 Outpatient EL VAISHALI, [facility] [id number] [facility] 00:00:00 00:00:00 2020-08-01 2020-08-01 Orders Doctor CORNELIA 1.2.840.114 [id number] Univers 00:00:00 00:00:00 Only Unassigned, JENNI 350.1.13.10 [facility]y of [place] [facility] 4.2.7.2.686 [place] as [phone] [address] 2020-07-22 2020-07-22 Orders Doctor CORNELIA 1.2.840.114 [id number] Univers 00:00:00 00:00:00 Only Unassigned, JENNI 350.1.13.10 ity of [place] [facility] 4.2.7.2.686 [place] as [phone] [address] 2020-07-22 2020-07-22 Telephone Mu [facility] 1.2.766.042 [id number] Univers 00:00:00 00:00:00 [facility] 350.1.13.10 it y of [place] 4.2.7.2.686 [place] Professio [phone] Nm dicco nal [address] Office [facility] One 2020-07-20 2020-07-20 Office uM [facility] 1.2.840.114 [id number] Univers 11:56:57 12:11:[address] [facility] 350.1.13.10 it y of [place] 4.2.7.2.686 [place] Professio [phone] Nm dicco nal [address] [facility] One 2020-07-20 2020-07-20 Outpatient R MU [facility] [id number] Univers 12:00:00 12:00:00 JUMA ity of [facility] 2020-07-05 2020-07-05 Orders Doctor CORNELIA 1.2.840.114 [id number] Univers 00:00:00 00:00:00 Only Unassigned, JENNI 350.1.13.10 ity of [place] [facility] 4.2.7.2.686 [place] as [phone] [facility] [address] 2020-07-04 2020-07-04 Patient Jose [facility] 1.2.840.114 [id number] Univers 00:00:00 00:00:00 Outreach Miquel PRIMARY 350.1.13.10 i ty of [facility] [place]2.7.2.[place] [phone] Nm dical [address] 2020-06-30 2020-06-30 Office [facility] 1.2.840.114 [id number] Univers 13:12:26 13:50:59 Visit [facility] 350.1.13.10 it y of [place] 4.2.7.2.686 [place] Professio [phone] [address] One 2020-06-30 2020-06-30 Outpatient [facility] [id number] Univers 13:15:00 13:15:00 JUMA ity of [facility] 2020-06-17 2020-06-17 Telephone [facility] 1.2.355.452 [id number] Univers 00:00:00 00:00:00 [facility] 350.1.13.10 it y of [place] 4.2.7.2.686 [place] Professio [phone] [address] One 2020-06-15 2020-06-15 Orders Doctor CORNELIA 1.2.840.114 [id number] Univers 00:00:00 00:00:00 Only Unassigned, JENNI 350.1.13.10 ity of [place] [facility] 4.2.7.2.686 [place] as [phone] [address] 2020-06-06 2020-06-06 Orders Doctor LOCKE 1.2.840.114 [id number] Univers 00:00:00 00:00:00 Only Unassigned, JENNI 350.1.13.10 ity of [place] [facility] 4.2.7.2.686 [place] as [phone] [address] 2020-06-01 2020-06-01 Telephone [facility] 1.2.068.869 [id number] Univers 00:00:00 00:00:00 [facility] 350.1.13.10 it y of [place] 4.2.7.2.686 [place] Professio [phone] [address] Office [facility] One 2020-05-28 2020-05-28 Orders Doctor LOCKE 1.2.840.114 [id number] Univers 00:00:00 00:00:00 Only Unassigned, JENNI 350.1.13.10 ity of [place] [facility] 4.2.7.2.686 [place] as [phone] [address] 2020-05-27 2020-05-27 Telephone Mu [facility] 1.2.273.369 [id number] Univers 00:00:00 00:00:00 [facility] 350.1.13.10 it y of [place] 4.2.7.2.686 [place] Professio [phone] [address] Office [facility] One 2020-05-26 2020-05-26 Patient Clifton [facility] 1.2.840.114 [id number] Univers 00:00:00 00:00:00 Outreach [facility] 350.1.13.10 i ty of [place] 4.2.7.2.686 [place] Professio [phone] Nm dicco nal [address] [place] [address] One 2020-05-25 2020-05-25 Refill [facility] 1.2.840.114 [id number] Univers 00:00:00 00:00:00 [facility] 350.1.13.10 it y of [place] 4.2.7.2.686 [place] Professio [phone] [address] One 2020-05-17 2020-05-17 Telephone Mu [facility] 1.2.363.597 [id number] Univers 00:00:00 00:00:00 [facility] 350.1.13.10 it y of [place] 4.2.7.2.686 [place] Professio [phone] [address] One 2020-05-17 2020-05-17 Orders Doctor CORNELIA 1.2.840.114 [id number] Univers 00:00:00 00:00:00 Only Unassigned, JENNI 350.1.13.10 ity of [place] [facility] 4.2.7.2.686 [place] as [phone] [address] 2020-05-13 2020-05-13 Outpatient NATALYA TOM [facility] [id number] SLE 00:00:00 00:00:00 2020-05-13 2020-05-13 [id number] SLE 00:00:00 00:00:00 2020-05-13 2020-05-13 Outpatient EL NATALYA TOM SLE SLE [id number] SLE 00:00:00 00:00:00 2020-05-12 2020-05-12 Telephone [facility] 1.2.619.307 [id number] Univers 00:00:00 00:00:00 [facility] 350.1.13.10 it y of [place] 4.2.7.2.686 [place] Professio [phone] [address] One 2020-05-04 2020-05-04 Office DeidreRUST 1.2.840.114 [id number] Univers 15:26:42 15:57:48 Visit [facility] 350.1.13.10 it y of [place] 4.2.7.2.686 [place] Professio [phone] [address] One 2020-05-04 2020-05-04 Outpatient R [facility] [id number] Univers 15:30:00 15:30:00 SHERIF solisrobert [facility] 2020-04-19 2020-04-19 Telephone [facility] 1.2.265.960 [id number] Univers 00:00:00 00:00:00 [facility] 350.1.13.10 it y of [place] 4.2.7.2.686 [place] Professio [phone] [address] One 2020-03-30 2020-03-30 Telephone [facility] 1.2.513.069 [id number] Univers 00:00:00 00:00:00 [facility] 350.1.13.10 it y of [place] 4.2.7.2.686 [place] Professio [phone] [address] One 2020-03-29 2020-03-29 Orders Doctor LOCKE 1.2.840.114 [id number] Univers 00:00:00 00:00:00 Only Unassigned, JENNI 350.1.13.10 ity of [place] [facility] 4.2.7.2.686 [place] as [phone] [address] 2020-03-28 2020-03-28 Telephone Mu [facility] 1.2.324.096 [id number] Univers 00:00:00 00:00:00 [facility] 350.1.13.10 it y of [place] 4.2.7.2.686 [place] Professio [phone] [facility] [address] [facility] One 2020-03-16 2020-03-16 Telephone [facility] 1.2.989.093 [id number] [id number] Univers 00:00:00 00:00:00 [facility] 350.1.13.10 it y of [place] 4.2.7.2.686 [place] Professio [phone] [facility] [address] [facility] One 2020-03-15 2020-03-15 Emergency JordanRUST 1.2.031.113 [id number] Univers 18:29:00 22:39:00 Ella S [place] 350.1.13.10 i ty of [place].7.2.[place] [phone] [facility] [address] 2020-03-14 2020-03-14 Outpatient R [facility] [id number] Univers 15:40:00 15:40:00 ity [facility] 2020-03-07 2020-03-07 Outpatient R [facility] [id number] Univers 13:30:00 13:30:00 JUMA ity [facility] 2020-02-26 2020-02-26 Emergency ER BENÍTEZ, [facility] Emergency [id number] SLE 10:40:00 10:40:00 KYLE 2020 2020 Orders Doctor CORNELIA 1.2.840.114 [id number] Univers 00:00:00 00:00:00 Only Unassigned, JENNI 350.1.13.10 ity of [place] [facility] 4.2.7.2.686 [place] as [phone] [address] 2020-02-22 2020-02-22 Refill DobbinsRUST 1.2.840.114 [id number] Univers 00:00:00 00:00:00 [facility] 350.1.13.10 it y of [place] 4.2.7.2.686 [place] Professio [phone] [address] Office [facility] One 2020-02-12 2020-02-12 Orders Doctor CORNELIA 1.2.840.114 [id number] Univers 00:00:00 00:00:00 Only Unassigned, JENNI 350.1.13.10 ity of [place] [facility] 4.2.7.2.686 [place] as [phone] [address] 2020-02-10 2020-02-10 Telephone [facility] 1.2.086.189 [id number] Univers 00:00:00 00:00:00 [facility] 350.1.13.10 it y of [place] 4.2.7.2.686 [place] Professio [phone] [address] Office [facility] One 2020-02-05 2020-02-05 Telephone [facility] 1.2.068.442 [id number] [id number] Univers 00:00:00 00:00:00 [facility] 350.1.13.10 it y of [place] 4.2.7.2.686 [place] Professio [phone] [address] One 2020-02-02 2020-02-02 Telephone [facility] 1.2.698.444 [id number] Univers 00:00:00 00:00:00 [facility] 350.1.13.10 it y of [place] 4.2.7.2.686 [place] Professio [phone] [address] Office [facility] One 2020-01-29 2020-01-29 Outpatient R DOBBINS [facility] [id number] Univers 09:10:00 09:10:00 JUMA ity [facility] 2020-01-29 2020-01-29 Casket Liner Lab, Adc Fam Pob I [facility] 1.2. 840.114 [id number] Univers 08:56:39 09:06:39 Visit Juma Dobbins [facility] 350.1.13.10 ity of [place] 4.2.7.2.686 [place] Professio [phone] Nm oscar [facility] [address] One 2020-01-27 2020-01-27 Telephone Mu [facility] 1.2.674.020 [id number] Univers 00:00:00 00:00:00 [facility] 350.1.13.10 it y of [place] 4.2.7.2.686 [place] Professio [phone] [address] Office Building One 2020-01-25 2020-01-25 Urgent Provider, [facility] 1.2.840.114 [id number] Univers 18:38:10 19:31:10 Care Green[facility] 350.1.13.10 ity of [place] 4.2.7.2.686 [place] Professio [phone] [address] Office Building One 2020-01-25 2020-01-25 Outpatient R [facility] [id number] Univers 18:40:00 18:40:00 ity of [facility] 2020-01-21 2020-01-21 Orders Doctor CORNELIA 1.2.840.114 [id number] Univers 00:00:00 00:00:00 Only Unassigned, JENNI 350.1.13.10 ity of [place] [facility] 4.2.7.2.686 [place] as [phone] [address] 2020-01-19 2020-01-19 Telephone [facility] 1.2.969.608 [id number] Univers 00:00:00 00:00:00 [facility] 350.1.13.10 it y of [place] 4.2.7.2.686 [place] Professio [phone] [address] Office Building One 2020-01-14 2020-01-14 Telephone [facility] 1.2.162.132 [id number] Univers 00:00:00 00:00:00 [facility] 350.1.13.10 it y of [place] 4.2.7.2.686 [place] Professio [phone] [address] Office Building One 2020-01-14 2020-01-14 Telephone DobbinsRUST 1.2.392.641 [id number] Univers 00:00:00 00:00:00 [facility] 350.1.13.10 it y of [place] 4.2.7.2.686 [place] Professio [phone] [address] One 2020-01-13 2020-01-13 Orders Doctor CORNELIA 1.2.840.114 [id number] Univers 00:00:00 00:00:00 Only Unassigned, JENNI 350.1.13.10 ity of [place] [facility] 4.2.7.2.686 [place] as [phone] [address] 2020-01-05 2020-01-05 Outpatient YENNATALYA [facility] SLE [id number] SLEH 00:00:00 00:00:00 2020-01-05 2020-01-05 Outpatient EL YENATALYA Early [facility] [id number] SLEH 00:00:00 00:00:00 2019-12-31 2019-12-31 [facility] 1.2.732.454 [id number] Univers 00:00:00 00:00:00 [facility] 350.1.13.10 it y of [place] 4.2.7.2.686 [place] Professio [phone] [address] One 2019-12-21 2019-12-21 [facility] 1.2.840.114 [id number] Univers 00:00:00 00:00:00 [facility] 350.1.13.10 it y of [place] 4.2.7.2.686 [place] Professio [phone] [facility] nal [address] [place] [address] One 2019-12-16 2019-12-16 Telephone [facility] 1.2.909.500 [id number] Univers 00:00:00 00:00:00 [facility] 350.1.13.10 it y of [place] 4.2.7.2.686 [place] Professio [phone] [facility] nal [address] [place] [address] One 2019-12-10 2019-12-10 Orders Doctor LOCKE 1.2.840.114 [id number] Univers 00:00:00 00:00:00 Only Unassigned, JENNI 350.1.13.10 [facility] 4.2.7.2.686 [place] as [phone] [address] 2019-12-09 2019-12-09 Laboratory Lab, Adc Fam Pob I [facility] 1.2. 840.114 [id number] Univers 13:26:56 13:46:56 Only Veronica Calix [facility] 350.1.13.10 ity of [place] 4.2.7.2.686 [place] Professio [phone] [address] Office Building One 2019-12-09 2019-12-09 Outpatient R [facility] [id number] [facility] 13:20:00 13:20:00 ity of [facility] 2019-12-04 2019-12-04 Telephone DobbinsRUST 1.2.647.891 [id number] Univers 00:00:00 00:00:00 Juma Cullen 350.1.13.10 i ty [place] [phone] [address] 2019-12-02 2019-12-02 Refill DobbinsRUST 1.2.840.114 [id number] Univers 00:00:00 00:00:00 Juma Cullen 350.1.13.10 i ty [place] [phone] [address] 2019-11-26 2019-11-26 Telephone DobbinsRUST 1.2.833.748 [id number] Univers 00:00:00 00:00:00 Juma Cullen 350.1.13.10 i ty [place].2.[place] [phone] Nm dicco nal [address] [place] [address] 2019-11-24 2019-11-24 Telephone [facility] 1.2.726.092 [id number] Univers 00:00:00 00:00:00 Juma Cullen 350.1.13.10 i ty [place].2.[place] [phone] Nm dic[address] 2019-11-23 2019-11-23 Telephone Mu [facility] 1.2.980.069 [id number] Univers 00:00:00 00:00:00 Juma Cullen 350.1.13.10 i ty [place].2.[place] [phone] [facility] 044 [facility] 2019-11-23 2019-11-23 Orders Doctor CORNELIA 1.2.840.114 [id number] Univers 00:00:00 00:00:00 Only Unassigned, JENNI 350.1.13.10 ity of [place] [facility] 4.2.7.2.686 [place] as [phone] [address] 2019-11-17 2019-11-17 Telephone DobbinsRUST 1.2.224.946 [id number] Univers 00:00:00 00:00:00 Juma Limon 350.1.13.10 it y of [place] 4.2.7.2.686 [place] Professio [phone] [address] Office [facility] One 2019-11-04 2019-11-04 Casket Liner 2, Adc Lab [facility] 1.2.840.114 [id number] Univers 09:28:48 09:43:48 Visit uJma Dobbins 350.1.13.10 ity [place].2.[place] [phone] [facility] 353 [facility] 2019-11-04 2019-11-04 Nurse Med, Medicare Wellness [facility] 1.2.840.114 [id number] Univers 08:13:07 08:43:07 Visit Juma Dobbins 350.1.13.10 it[place] [phone] [facility] 044 [facility] 2019-11-04 2019-11-04 Outpatient R MU [facility] [id number] Univers 08:15:00 08:15:00 JUMA marcos [facility] 2019-11-04 2019-11-04 Office Mu [facility] 1.2.840.114 [id number] Univers 07:52:31 08:07:31 Visit Juma Rosales.1.13.10 i ty [place] [phone] [address] 2019-11-02 2019-11-02 Orders Doctor CORNELIA 1.2.840.114 [id number] Univers 00:00:00 00:00:00 Only Unassigned, JENNI 350.1.13.10 ity of [place] [facility] 4.2.7.2.686 [place] as [phone] [address] 2019-10-22 2019-10-22 Telephone [facility] 1.2.482.193 [id number] Univers 00:00:00 00:00:00 Juma [facility] 350.1.13.10 it y of [place] 4.2.7.2.686 [place] Professio [phone] [address] 2019-10-20 2019-10-20 Orders Doctor LOCKE 1.2.840.114 [id number] Univers 00:00:00 00:00:00 Only Unassigned, JENNI 350.1.13.10 ity of [place] [facility] 4.2.7.2.686 [place] as [phone] [address] 2019-10-19 2019-10-19 Telephone [facility] 1.2.734.215 [id number] Univers 00:00:00 00:00:00 Juma [facility] 350.1.13.10 it y of [place] 4.2.7.2.686 [place] Professio [phone] [address] 2019-10-16 2019-10-16 Outpatient YENATALYA Early [facility] SLE [id number] SLE 00:00:00 00:00:00 2019-10-16 2019-10-16 Outpatient EL NATALYA TOM SLE SLE [id number] SLE 00:00:00 00:00:00 2019-10-06 2019-10-06 Orders Doctor CORNELIA 1.2.840.114 [id number] Univers 00:00:00 00:00:00 Only Unassigned, JENNI 350.1.13.10 ity of [place] [facility] 4.2.7.2.686 [place] [phone] [address] 2019-10-04 2019-10-04 Telephone [facility] 1.2.445.491 [id number] [id number] Univers 00:00:00 00:00:00 [facility] 350.1.13.10 it y of [place] 4.2.7.2.686 [place] Professio [phone] Nm dical nal [address] Office Building One 2019-09-29 2019-09-29 Outpatient [facility] [id number] Univers 08:15:00 08:15:00 JUMA ity [facility] 2019-09-25 2019-09-25 Orders Doctor CORNELIA 1.2.840.114 [id number] Univers 00:00:00 00:00:00 Only Unassigned, JENNI 350.1.13.10 ity of [place] [facility] 4.2.7.2.686 [place] as [phone] [address] 2019-09-24 2019-09-24 Outpatient SLE SLE [id number] SLEH 00:00:00 00:00:00 [id number] 2019-09-24 2019-09-24 Outpatient NATALYA DARLING SLE [facility] [id number] SLE 00:00:00 00:00:00 2019-09-24 2019-09-24 Outpatient NATALYA DARLING [facility]H [id number] SLEH 00:00:00 00:00:00 2019-09-23 2019-09-23 Telephone [facility] 1.2.218.589 [id number] Univers 00:00:00 00:00:00 [facility] 350.1.13.10 it y of [place] 4.2.7.2.686 [place] Professio [phone] Nm dical nal [address] Office [facility] One 2019-09-15 2019-09-15 Asif DobbinsRUST 1.2.563.905 [id number] Univers 00:00:00 00:00:00 [facility] 350.1.13.10 it y of [place] 4.2.7.2.686 [place] Professio [phone] [address] 2019-09-08 2019-09-08 Telephone Mu, [facility] 1.2.338.715 [id number] Univers 00:00:00 00:00:00 Juma Cullen 350.1.13.10 i ty [place] [phone] [address] 2019-08-31 2019-08-31 Orders Doctor CORNELIA 1.2.840.114 [id number] Univers 00:00:00 00:00:00 Only Unassigned, JENNI 350.1.13.10 ity of [place] [facility] 4.2.7.2.686 [place] as [phone] [address] 2019-08-11 2019-08-11 Orders Doctor CORNELIA 1.2.840.114 [id number] Univers 00:00:00 00:00:00 Only Unassigned, JENNI 350.1.13.10 ity of [place] [facility] 4.2.7.2.686 [place] as [phone] [address] 2019-08-07 2019-08-07 Telephone Dobbins, [facility] 1.2.958.435 [id number] Univers 00:00:00 00:00:00 Juma Cullen 350.1.13.10 i ty [place] [phone] [address] 2019-08-06 2019-08-06 Telephone Mu [facility] 1.2.059.323 [id number] Univers 00:00:00 00:00:00 Juma [facility] 350.1.13.10 it y of [place] 4.2.7.2.686 [place] Professio [phone] [address] 2019-07-21 2019-07-21 Orders Doctor CORNELIA 1.2.840.114 [id number] Univers 00:00:00 00:00:00 Only Unassigned, JENNI 350.1.13.10 ity of [place] [facility] 4.2.7.2.686 [place] as [phone] [address] 2019-07-16 2019-07-16 Telephone Mu [facility] 1.2.865.366 0005 [id number] Univers 00:00:00 00:00:00 [facility] 350.1.13.10 it y of [place] 4.2.7.2.686 [place] as Professio [phone] Nm scott[address] Office [facility] One 2019-07-14 2019-07-14 Telephone Mu [facility] 1.2.851.263 [id number] [id number] Univers 00:00:00 00:00:00 [facility] 350.1.13.10 it y of [place] 4.2.7.2.686 [place] as Professio [phone] Nm scott[address] Office Building One 2019-07-06 2019-07-06 Telephone [facility] 1.2.590.662 [id number] [id number] Univers 00:00:00 00:00:00 [facility] 350.1.13.10 it y of [place] 4.2.7.2.686 [place] Professio [phone] [address] Office [facility] One 2019-07-02 2019-07-02 Telephone [facility] 1.2.991.131 [id number] Univers 00:00:00 00:00:00 [facility] 350.1.13.10 it y of [place] 4.2.7.2.686 [place] Professio [phone] [address] Office [facility] One 2019-05-27 2019-05-27 Office [facility] 1.2.840.114 [id number] Univers 13:56:32 14:11:32 Visit [facility] 350.1.13.10 it y of [place] 4.2.7.2.686 [place] as Professio [phone] Nm scott[address] Office Building One 2019-05-26 2019-05-26 Telephone [facility] 1.2.407.993 [id number] [id number] Univers 00:00:00 00:00:00 [facility] 350.1.13.10 it y of [place] 4.2.7.2.686 [place] Professio [phone] [address] Office Building One 2019-05-26 2019-05-26 Telephone DobbinsRUST 1.2.704.511 [id number] Univers 00:00:00 00:00:00 [facility] 350.1.13.10 it y of [place] 4.2.7.2.686 [place] as Professio [phone] [address] Office Building One 2019-05-22 2019-05-22 Casket Liner Lab, Adc Fam Pob I [facility] 1.2. 840.114 [id number] Univers 08:13:45 09:18:03 Visit Juma Dobbins [facility] 350.1.13.10 ity of [place] 4.2.7.2.686 [place] as Professio [phone] [address] Office Building One 2019-05-22 2019-05-22 Orders Doctor CORNELIA 1.2.840.114 [id number] Univers 00:00:00 00:00:00 Only Unassigned, JENNI 350.1.13.10 ity of [place] [facility] 4.2.7.2.686 [place] as [phone] [address] 2019-01-06 2019-01-06 Orders Doctor CORNELIA 1.2.840.114 [id number] Univers 00:00:00 00:00:00 Only Unassigned, JENNI 350.1.13.10 ity of [place] [facility] 4.2.7.2.686 [place] as [phone] [address] 2018-12-15 2018-12-15 Orders Doctor CORNELIA 1.2.840.114 [id number] Univers 00:00:00 00:00:00 Only Unassigned, JENNI 350.1.13.10 ity of [place] [facility] 4.2.7.2.686 [place] as [phone] [address] 2018-05-06 2018-05-06 Outpatient R [facility] [id number] Univers 07:45:00 08:39:49 JUMA marcos of [facility] Results Test Description Test Time Test Comments Results Result Comments Source CORTISOL 2022-12-21 16:59:12 Test Item Value Reference Range Interpretation Comme nts CORTISOL, TOTAL (BEAKER) (test code = 2755) 11.7 ug/dL 3.7-19.4 Infantry Assault[employer] ID - ADMINTSH/FREE T4 IF [id number] 12:44:11 Test Item Value Reference Range Interpretation Comments THYROID STIMULATING HORMONE 1.289 uIU/mL 0.350-5.500 (BEAKER) (test code = 772) COMPREHENSIVE METABOLIC [id number] 12:43:35 Test Item Value Reference Range Interpretation Comments TOTAL PROTEIN 7.8 gm/dL 6.0-8.3 Specimen sligh tly (BEAKER) (test hemolyzed code = 770) ALBUMIN (BEAKER) 4.5 g/dL 3.5-5.0 Specimen sl ightly (test code = 1145) hemolyzed ALKALINE 97 U/L 40-150 PHOSPHATASE (BEAKER) (test code = 346) BILIRUBIN TOTAL 0.4 mg/dL 0.2-1.2 Specimen sli ghtly (BEAKER) (test hemolyzed code = 377) SODIUM (BEAKER) 135 meq/L 136-145 L (test code = 381) POTASSIUM (BEAKER) 4.8 meq/L 3.5-5.1 Specimen slightly (test code = 379) hemolyzed CHLORIDE (BEAKER) 102 meq/L 98-107 (test code = 382) CO2 (BEAKER) (test 24 meq/L 22-29 code = 355) BLOOD UREA 33 mg/dL 7-21 H NITROGEN (BEAKER) (test code = 354) CREATININE 2.47 mg/dL 0.57-1.25 H Specimen slight ly (BEAKER) (test hemolyzed code = 358) GLUCOSE RANDOM 482 mg/dL 70-105 HH (BEAKER) (test code = 652) CALCIUM (BEAKER) 9.0 mg/dL 8.4-10.2 (test code = 697) AST (SGOT) 34 U/L 5-34 Specimen slight ly (BEAKER) (test hemolyzed code = 353) ALT (SGPT) 60 U/L 6-55 H Specimen slight ly (BEAKER) (test hemolyzed code = 347) EGFR (BEAKER) 27 Interpretati on of eGFR (test code = 1092) mL/min/1.[address] age Description sq m Result G1 Jenn l or high >=90 G2 Mildly decreased 60-89 G3a Mildl y to moderately 45-5 9 G3b Moderately to s everely 30-44 G4 Severl y decreased 15-29 G5 Kidney failure <15Reported eGF R is based on the CKD-EPI 2020 equation that d oes not use a race coefficientEsti mated GFR is not as accur ate as Creatinine Michelle mayo in predicting glom erular filtration rate . Estimated GFR is not appl icable for dialysis patien ts CBC W/PLT COUNT & AUTO [id number] 12:13:08 Test Item Value Reference Range Interpretation Comments WHITE BLOOD CELL COUNT (BEAKER) 6.0 K/ L 3.5-10.5 (test code = 775) RED BLOOD CELL COUNT (BEAKER) 3.91 M/ L 4.63-6.08 L (test code = 761) HEMOGLOBIN (BEAKER) (test code = 12.3 GM/DL 13.7-17.5 L 410) HEMATOCRIT (BEAKER) (test code = 37.3 % 40.1-51.0 L 411) MEAN CORPUSCULAR VOLUME (BEAKER) 95 fL 79-92 H (test code = 753) MEAN CORPUSCULAR HEMOGLOBIN 31.5 pg 25.7-32.2 (BEAKER) (test code = 751) MEAN CORPUSCULAR HEMOGLOBIN CONC 33.0 GM/DL 32.3-36.5 (BEAKER) (test code = 752) RED CELL DISTRIBUTION WIDTH 13.4 % 11.6-14.4 (BEAKER) (test code = 412) PLATELET COUNT (BEAKER) (test 167 K/CU MM 150-450 code = 756) MEAN PLATELET VOLUME (BEAKER) 9.8 fL 9.4-12.4 (test code = 754) NEUTROPHILS RELATIVE PERCENT 53 % (BEAKER) (test code = 429) LYMPHOCYTES RELATIVE PERCENT 32 % (BEAKER) (test code = 430) MONOCYTES RELATIVE PERCENT 7 % (BEAKER) (test code = 431) EOSINOPHILS RELATIVE PERCENT 7 % (BEAKER) (test code = 432) BASOPHILS RELATIVE PERCENT 1 % (BEAKER) (test code = 437) NEUTROPHILS ABSOLUTE COUNT 3.18 K/ L 1.78-5.38 (BEAKER) (test code = 670) LYMPHOCYTES ABSOLUTE COUNT 1.93 K/ L 1.32-3.57 (BEAKER) (test code = 414) MONOCYTES ABSOLUTE COUNT (BEAKER) 0.39 K/ L 0.30-0.82 (test code = 415) EOSINOPHILS ABSOLUTE COUNT 0.40 K/ L 0.04-0.54 (BEAKER) (test code = 416) BASOPHILS ABSOLUTE COUNT (BEAKER) 0.04 K/ L 0.01-0.08 (test code = 417) IMMATURE GRANULOCYTES-RELATIVE 0.20 % 0.00-1.00 PERCENT (BEAKER) (test code = 2801) [id number] 14:53:58 Test Item Value Reference Range Interpretation Comments CORTISOL, TOTAL (BEAKER) (test 13.5 ug/dL 3.7-19.4 code = 2755) Infantry Assaultman ID - AAHAMIDTSH/FREE T4 IF [id number] 13:12:55 Test Item Value Reference Range Interpretation Comments THYROID STIMULATING HORMONE 1.484 uIU/mL 0.350-5.500 (BEAKER) (test code = 772) COMPREHENSIVE METABOLIC [id number] 12:40:31 Test Item Value Reference Range Interpretation Comments TOTAL PROTEIN 7.6 gm/dL 6.0-8.3 Specimen sligh tly (BEAKER) (test hemolyzed code = 770) ALBUMIN (BEAKER) 4.3 g/dL 3.5-5.0 Specimen sl ightly (test code = 1145) hemolyzed ALKALINE 115 U/L 40-150 PHOSPHATASE (BEAKER) (test code = 346) BILIRUBIN TOTAL 0.4 mg/dL 0.2-1.2 Specimen sli ghtly (BEAKER) (test hemolyzed code = 377) SODIUM (BEAKER) 135 meq/L 136-145 L (test code = 381) POTASSIUM (BEAKER) 4.5 meq/L 3.5-5.1 Specimen slightly (test code = 379) hemolyzed CHLORIDE (BEAKER) 99 meq/L 98-107 (test code = 382) CO2 (BEAKER) (test 26 meq/L 22-29 code = 355) BLOOD UREA 23 mg/dL 7-21 H NITROGEN (BEAKER) (test code = 354) CREATININE 2.13 mg/dL 0.57-1.25 H Specimen slight ly (BEAKER) (test hemolyzed code = 358) GLUCOSE RANDOM 427 mg/dL 70-105 HH (BEAKER) (test code = 652) CALCIUM (BEAKER) 9.1 mg/dL 8.4-10.2 (test code = 697) AST (SGOT) 39 U/L 5-34 H Specimen slight ly (BEAKER) (test hemolyzed code = 353) ALT (SGPT) 83 U/L 6-55 H Specimen slight ly (BEAKER) (test hemolyzed code = 347) EGFR (BEAKER) 32 Interpretatio n of eGFR (test code = 1092) mL/min/1.[address] age Description sq m Result G1 Jenn l or high >=90 G2 Mildly decreased 60-89 G3a Mildl y to moderately 45-5 9 G3b Moderately to s everely 30-44 G4 Severl y decreased 15-29 G5 Kidney failure <15Reported eGF R is based on the CKD-EPI 2020 equation that d oes not use a race coefficientEsti mated GFR is not as accur ate as Creatinine Michelle gael in predicting glom erular filtration rate . Estimated GFR is not appl icable for dialysis patien ts CBC W/PLT COUNT & AUTO [id number] 11:49:01 Test Item Value Reference Range Interpretation Comments WHITE BLOOD CELL COUNT (BEAKER) 4.4 K/ L 3.5-10.5 (test code = 775) RED BLOOD CELL COUNT (BEAKER) 4.03 M/ L 4.63-6.08 L (test code = 761) HEMOGLOBIN (BEAKER) (test code = 12.6 GM/DL 13.7-17.5 L 410) HEMATOCRIT (BEAKER) (test code = 38.2 % 40.1-51.0 L 411) MEAN CORPUSCULAR VOLUME (BEAKER) 95 fL 79-92 H (test code = 753) MEAN CORPUSCULAR HEMOGLOBIN 31.3 pg 25.7-32.2 (BEAKER) (test code = 751) MEAN CORPUSCULAR HEMOGLOBIN CONC 33.0 GM/DL 32.3-36.5 (BEAKER) (test code = 752) RED CELL DISTRIBUTION WIDTH 13.0 % 11.6-14.4 (BEAKER) (test code = 412) PLATELET COUNT (BEAKER) (test 137 K/CU MM 150-450 L code = 756) MEAN PLATELET VOLUME (BEAKER) 9.2 fL 9.4-12.4 L (test code = 754) NEUTROPHILS RELATIVE PERCENT 47 % (BEAKER) (test code = 429) LYMPHOCYTES RELATIVE PERCENT 40 % (BEAKER) (test code = 430) MONOCYTES RELATIVE PERCENT 6 % (BEAKER) (test code = 431) EOSINOPHILS RELATIVE PERCENT 7 % (BEAKER) (test code = 432) BASOPHILS RELATIVE PERCENT 1 % (BEAKER) (test code = 437) NEUTROPHILS ABSOLUTE COUNT 2.09 K/ L 1.78-5.38 (BEAKER) (test code = 670) LYMPHOCYTES ABSOLUTE COUNT 1.76 K/ L 1.32-3.57 (BEAKER) (test code = 414) MONOCYTES ABSOLUTE COUNT (BEAKER) 0.28 K/ L 0.30-0.82 L (test code = 415) EOSINOPHILS ABSOLUTE COUNT 0.29 K/ L 0.04-0.54 (BEAKER) (test code = 416) BASOPHILS ABSOLUTE COUNT (BEAKER) 0.02 K/ L 0.01-0.08 (test code = 417) IMMATURE GRANULOCYTES-RELATIVE 0.00 % 0.00-1.00 PERCENT (BEAKER) (test code = 2801) CT ABDOMEN/PELVIS WITHOUT IV [id number] 12:35:22 [facility] : 1950 Sex: MCTof the chest, abdomen and pelvis, without contrastClinical History: Renal cell cancer, stagingTechnique: CT of the chest, abdomen and pelvis is performed without intravenous contrast administration. This exam was performed accordingto our departmental dose optimization program which includes automatedexposure control, adjustment of the mA and/or kV according to patient'ssize and/or use of iterative reconstructive technique.Comparison Film: May 14, 2022, [place] 17, 2022Discussion:There is a right-sided Port-A-Cath. Visualized thyroid gland is normal.No supraclavicular, axillary, mediastinal or hilar lymphadenopathy.Heart and pericardium are unremarkable.Mild scarring or atelectasis and small foci of groundglass opacities atthe lung bases appear unchanged. There is no new mass or consolidation.A few tiny pulmonary nodules are also unchanged. There is no new noduleor mass. No effusion. Central airways are patent.Liver has a mildly nodular contour. No liver mass is identified on thisnoncontrastexam. A calcified granuloma is seen in the left lobe. Thereis no biliary ductal dilatation. A stone is present in the gallbladder.The spleen, pancreas, and adrenal glands are unremarkable.Status post left nephrectomy. Right kidney demonstrates nohydronephrosis, or contour deforming lesion. There is a nonobstructive 4mm stone in the right lower pole.No evidence of bowel obstruction, or abnormal bowel wall thickening.Normal appendix.In the pelvis, bladder is unremarkable. 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 No ascites orlymphadenopathy. Stable postsurgical change in the right hemipelvis. Nosusp icious bony lesion is identified.IMPRESSION:Impression:Stable exam, no new disease is identified in the chest, abdomen orpelvis.Electronically Signed By: Karan Fregoso11/02/2022 12:37 CDTWorkstation Name: [id number] CHEST WITHOUT IV CONTRAST 2022-11-02 12:35:22 [facility] : 1950 Sex: MCTof the chest, abdomen and pelvis, without contrastClinical History: Renal cell cancer, stagingTechnique: CT of the chest, abdomen and pelvis is performed without intravenous contrast administration. This exam was performed accordingto our departmental dose optimization program which includes automatedexposure control, adjustment of the mA and/or kV according to patient'ssize and/or use of iterative reconstructive technique.Comparison Film: May 14, 2022, December 13iscussion:There is a right-sided Port-A-Cath. Visualized thyroid gland is normal.No supraclavicular, axillary, mediastinal or hilar lymphadenopathy.Heart and pericardium are unremarkable.Mild scarring or atelectasis and small foci of groundglass opacities atthe lung bases appear unchanged. There is no new mass or consolidation.A few tiny pulmonary nodules are also unchanged. There is no new noduleor mass. No effusion. Central airways are patent.Liver has a mildly nodular contour. No liver mass is identified on thisnoncontrastexam. A calcified granuloma is seen in the left lobe. Thereis no biliary ductal dilatation. A stone is present in the gallbladder.The spleen, pancreas, and adrenal glands are unremarkable.Status post left nephrectomy. Right kidney demonstrates nohydronephrosis, or contour deforming lesion. There is a nonobstructive 4mm stone in the right lower pole.No evidence of bowel obstruction, or abnormal bowel wall thickening.Normal appendix.In the pelvis, bladder is unremarkable. 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 No ascites orlymphadenopathy. Stable postsurgical change in the right hemipelvis. Nosusp icious bony lesion is identified.IMPRESSION:Impression:Stable exam, no new disease is identified in the chest, abdomen orpelvis.Electronically Signed By: Karan Fregoso11/02/2022 12:37 CDTWorkstation Name: [id number] 12:33:57 Test Item Value Reference Range Interpretation Comments RPR SCREEN (BEAKER) (test code = Nonreactive Nonreactive 420) POC-Glucose [id number] 12:07:54 Test Item Value Reference Range Interpretation Comments POC-Glucose Meter (test 179 mg/dL 70-110 H : TE STED AT [facility] code = 1538) [address] [facility], [facility] 30: Infantry Assaultman/Techni daniel ID = [id number] for QUARTMAN, ZEINA Lab Interpretation (test Abnormal code = 07924-6) [facility]-Glucose [id number] 12:07:54 Test Item Value Reference Range Interpretation Comments POC-Glucose Meter (test 179 mg/dL 70-110 H : TE STED AT [facility] code = 1538) [address] [place] [address], 770 30: Infantry Assaultman/Techni daniel ID = [id number] for QUARTMAN, ZEINA Lab Interpretation (test Abnormal code = 51946-4) [facility] [id number] 12:07:54 Test Item Value Reference Range Interpretation Comments POC-Glucose Meter (test 179 mg/dL 70-110 H : TE STED AT [facility] code = 1538) [address] [place] [address], 770 30: Infantry Assaultman/Techni daniel ID = [id number] for QUARTMAN, ZEINA Lab Interpretation (test Abnormal code = 20193-9) [facility]-Glucose [id number] 12:07:54 Test Item Value Reference Range Interpretation Comments POC-Glucose Meter (test 179 mg/dL 70-110 H : TE STED AT [facility] code = 1538) [address] [place] [address], 770 30: Infantry Assaultman/Techni daniel ID = [id number] for QUARTMAN, ZEINA Lab Interpretation (test Abnormal code = 66495-0) [facility]-Glucose [id number] 12:07:54 Test Item Value Reference Range Interpretation Comments POC-Glucose Meter (test 179 mg/dL 70-110 H : TE STED AT [facility] code = 1538) [address] [place] [address], 770 30: Infantry Assaultman/Techni daniel ID = [id number] for QUARTMAN, ZEINA Lab Interpretation (test Abnormal code = 76187-1) [facility]-Glucose [id number] 12:07:54 Test Item Value Reference Range Interpretation Comments POC-Glucose Meter (test 179 mg/dL 70-110 H : TE STED AT [facility] code = 1538) [address] [place] [address], 770 30: Infantry Assaultman/Techni daniel ID = [id number] for QUARTMAN, ZEINA Lab Interpretation (test Abnormal code = 52360-9) [facility] [id number] 12:07:54 Test Item Value Reference Range Interpretation Comments POC-GLUCOSE METER 179 mg/dL 70-110 H : TESTED A T [facility] 6720 (BEAKER) (test code = YU [facility]ía [place], 1538) [address]: Infantry Assaultman/Techni daniel ID = [id number] for ZEINA MARIN POCT-GLUCOSE [id number] 08:03:25 Test Item Value Reference Range Interpretation Comments POC-GLUCOSE METER 156 mg/dL 70-110 H : TESTED A T [facility] 6720 (BEAKER) (test code = YU García [facility], 1538) [address]: Infantry Assaultman/Techni daniel ID = [id number] for ZEINA MARIN BASIC METABOLIC [id number] 06:01:06 Test Item Value Reference Range Interpretation Comments SODIUM (BEAKER) 140 meq/L 136-145 (test code = 381) POTASSIUM 4.3 meq/L 3.5-5.1 (BEAKER) (test code = 379) CHLORIDE (BEAKER) 107 meq/L 98-107 (test code = 382) CO2 (BEAKER) 23 meq/L 22-29 (test code = 355) BLOOD UREA 34 mg/dL 7-21 H NITROGEN (BEAKER) (test code = 354) CREATININE 2.33 mg/dL 0.57-1.25 H (BEAKER) (test code = 358) GLUCOSE RANDOM 147 mg/dL 70-105 H (BEAKER) (test code = 652) CALCIUM (BEAKER) 9.4 mg/dL 8.4-10.2 (test code = 697) EGFR (BEAKER) 29 Interpretatio n of eGFR (test code = mL/min/1.73 values Stage De scription 1092) sq m Result G1 Jenn l or high >=90 G2 Mildly decreased 60-89 G3a Mildl y to moderately 45-5 9 G3b Moderately to s everely 30-44 G4 Severl y decreased 15-29 G5 Kidney failure <15Reported eGF R is based on the CKD-EPI 2021 equation that d oes not use a race coefficientEsti mated GFR is not as accur ate as Creatinine Michelle gael in predicting glom erular filtration rate . Estimated GFR is not appl icable for dialysis patien ts Infantry Assaultman ID - TAYE WCBC (HEMOGRAM ONLY)2022-10-01 05:15:21 Test Item Value Reference Range Interpretation Comments WHITE BLOOD CELL COUNT (BEAKER) 3.3 K/ L 3.5-10.5 L (test code = 775) RED BLOOD CELL COUNT (BEAKER) 4.04 M/ L 4.63-6.08 L (test code = 761) HEMOGLOBIN (BEAKER) (test code = 12.5 GM/DL 13.7-17.5 L 410) HEMATOCRIT (BEAKER) (test code = 38.3 % 40.1-51.0 L 411) MEAN CORPUSCULAR VOLUME (BEAKER) 95 fL 79-92 H (test code = 753) MEAN CORPUSCULAR HEMOGLOBIN 30.9 pg 25.7-32.2 (BEAKER) (test code = 751) MEAN CORPUSCULAR HEMOGLOBIN CONC 32.6 GM/DL 32.3-36.5 (BEAKER) (test code = 752) RED CELL DISTRIBUTION WIDTH 13.9 % 11.6-14.4 (BEAKER) (test code = 412) PLATELET COUNT (BEAKER) (test 132 K/CU MM 150-450 L code = 756) MEAN PLATELET VOLUME (BEAKER) 9.1 fL 9.4-12.4 L (test code = 754) NUCLEATED RED BLOOD CELLS 0 /100 WBC 0-0 (BEAKER) (test code = 413) POCT-GLUCOSE [id number] 20:28:07 Test Item Value Reference Range Interpretation Comments POC-GLUCOSE METER 177 mg/dL 70-110 H : TESTED A T [facility] 6720 (BEAKER) ([facility] = [facility], 1538) [address]: Infantry Assaultman/Techni daniel ID = [id number] for JUDITH COSME, JAMAAL POCT-GLUCOSE [id number] 17:12:10 Test Item Value Reference Range Interpretation Comments POC-GLUCOSE METER 168 mg/dL 70-110 H : TESTED A T [facility] 6720 (BEAKER) (test code [facility], = 1538) [address]: Infantry Assaultman/Techni daniel ID = [id number] for WILS ON, BRITTAE POCT-GLUCOSE [id number] 12:30:40 Test Item Value Reference Range Interpretation Comments POC-GLUCOSE METER 218 mg/dL 70-110 H : TESTED A T [facility] 6720 (BEAKER) (test code [facility], = 1538) [address]: Infantry Assaultman/Techni daniel ID = [id number] for HOMERS ONELIA POCT-GLUCOSE [id number] 08:17:51 Test Item Value Reference Range Interpretation Comments POC-GLUCOSE METER 195 mg/dL 70-110 H : TESTED A T [facility] 6720 (BEAKER) (test code [facility], = 1538) [address]: Infantry Assaultman/Techni daniel ID = [id number] for WILS ONELIA BASIC METABOLIC [id number] 05:43:53 Test Item Value Reference Range Interpretation Comments SODIUM (BEAKER) 138 meq/L 136-145 (test code = 381) POTASSIUM 4.2 meq/L 3.5-5.1 (BEAKER) (test code = 379) CHLORIDE (BEAKER) 107 meq/L 98-107 (test code = 382) CO2 (BEAKER) 21 meq/L 22-29 L (test code = 355) BLOOD UREA 37 mg/dL 7-21 H NITROGEN (BEAKER) (test code = 354) CREATININE 2.28 mg/dL 0.57-1.25 H (BEAKER) (test code = 358) GLUCOSE RANDOM 163 mg/dL 70-105 H (BEAKER) (test code = 652) CALCIUM (BEAKER) 8.9 mg/dL 8.4-10.2 (test code = 697) EGFR (BEAKER) 30 Interpretatio n of eGFR (test code = mL/min/1.73 values Stage De scription 1092) sq m Result G1 Jenn l or high >=90 G2 Mildly decreased 60-89 G3a Mildl y to moderately 45-5 9 G3b Moderately to s everely 30-44 G4 Severl y decreased 15-29 G5 Kidney failure <15Reported eGF R is based on the CKD-EPI 2020 equation that d oes not use a race coefficientEsti mated GFR is not as accur ate as Creatinine Michelle mayo in predicting glom erular filtration rate . Estimated GFR is not appl icable for dialysis patien ts Infantry Assaultman ID - MARCOCBC (HEMOGRAM ONLY)2022-09-30 05:09:53 Test Item Value Reference Range Interpretation Comments WHITE BLOOD CELL COUNT (BEAKER) 3.3 K/ L 3.5-10.5 L (test code = 775) RED BLOOD CELL COUNT (BEAKER) 3.62 M/ L 4.63-6.08 L (test code = 761) HEMOGLOBIN (BEAKER) (test code = 11.4 GM/DL 13.7-17.5 L 410) HEMATOCRIT (BEAKER) (test code = 34.8 % 40.1-51.0 L 411) MEAN CORPUSCULAR VOLUME (BEAKER) 96 fL 79-92 H (test code = 753) MEAN CORPUSCULAR HEMOGLOBIN 31.5 pg 25.7-32.2 (BEAKER) (test code = 751) MEAN CORPUSCULAR HEMOGLOBIN CONC 32.8 GM/DL 32.3-36.5 (BEAKER) (test code = 752) RED CELL DISTRIBUTION WIDTH 13.9 % 11.6-14.4 (BEAKER) (test code = 412) PLATELET COUNT (BEAKER) (test 126 K/CU MM 150-450 L code = 756) MEAN PLATELET VOLUME (BEAKER) 9.2 fL 9.4-12.4 L (test code = 754) NUCLEATED RED BLOOD CELLS 0 /100 WBC 0-0 (BEAKER) (test code = 413) POCT-GLUCOSE [id number] 21:04:13 Test Item Value Reference Range Interpretation Comments POC-GLUCOSE METER 227 mg/dL 70-110 H : TESTED A T [facility] 6720 (BEAKER) (test code = [facility], 153) [address]: Infantry Assaultman/Techni daniel ID = [id number] for [place] AUREA COSMEA POCT-GLUCOSE [id number] 17:58:01 Test Item Value Reference Range Interpretation Comments POC-GLUCOSE METER 229 mg/dL 70-110 H : TESTED A T [facility] 6720 (BEAKER) (test code = [facility], 153) [address]: Infantry Assaultman/Techni daniel ID = [id number] for Wo lferKarly US ABDOMEN [id number] 17:17:08 [facility] : 1950 Sex: MEXAMINATION: US ABDOMEN COMPLETE.INDICATION: 72-year-old male with elevated LFTs.COMPARISON: CT abdomenand pelvis dated 05/14/2022.FINDINGS:Examination is limited due to large patient body habitus.Liver:The liver measures 16.6 cm and is mildly to moderately increased inechogenicity. No suspicious hepaticlesions. The visualized main portalvein is patent with appropriate direction of flow.Biliary system:The gallbladder contains a 1.3 cm gallstone; the gallbladder wallmeasures 0.2 cm. No pericholecystic fluid. Negative sonographic Sofia'ssign. The CBD measures 0.5 cm. No evidence of intrahepatic biliarydilation.Spleen:The spleen measures up to 13.1 cm. No suspicious splenic lesion.Pancreas:The pancreas is not well-visualized.Right kidney:The right kidney is normal in echogenicity and measures 11.6 x 7.1 x 6.0cm; the cortical thickness is 0.8 cm. No suspicious renal lesions. Noevidence of hydronephrosis.Left kidney:Postsurgical changes status post left nephrectomy.Vessels:The visualized aorta and IVC are unremarkable. Other:No ascites on the images provided.IMPRESSION:1. Examination is limited due to large patient body habitus.2. Findings suggestive of mild to moderate hepatic steatosis.3. Cholelithiasis without evidence of acute cholecystitis.4. Postsurgical changes status post left nephrectomy.POCT-GLUCOSE [id number] 11:51:21 Test Item Value Reference Range Interpretation Comments POC-GLUCOSE METER 254 mg/dL 70-110 H : TESTED A T [facility] 6720 (SHANEKA) (test code [facility], = 1538) [address]: Infantry Assaultman/Techni daniel ID = [id number] for ELIA DIAZ HEMOGLOBIN [id number] 08:55:09 Test Item Value Reference Range Interpretation Comments HEMOGLOBIN A1C 10.0 % See_Comment H [Automated m essage] ELECTROPHORESIS (SHANEKA) The system which (test code = 3811) generated this result transmitted ref erence range: <=5.6%. The reference range was not used to int erpret this result as normal/abnormal . "The A1c is measured using a NGS-certified method. HbA1c value equal to or greater than 6.5% as thediagnosis cutoff for diabetes. An HbA1c value of 5.7- 6.4% indicates increased risk for diabetes (prediabetes)."Infantry Assaultman ID - ADMPOCT- GLUCOSE [id number] 08:15:40 Test Item Value Reference Range Interpretation Comments POC-GLUCOSE METER 206 mg/dL 70-110 H : TESTED A T [facility] 6720 ([employer] (test code [facility], = 1538) [address]: Infantry Assaultman/Techni daniel ID = [id number] for ELIA DIAZ VITAMIN [id number] 08:06:15 Test Item Value Reference Range Interpretation Comments VITAMIN B12 ([employer]) (test code = 1941 pg/mL 213-816 H 774) Infantry Assaultman ID - mmHIV-1 ANTIGEN WITH HIV-1/2 [id number] 06:54:12 Test Item Value Reference Range Interpretation Comments HIV-1 ANTIGEN WITH HIV 1\\T\\2 Nonreactive Nonreactive ANTIBODY (2) ([employer] (test code = 2586) Infantry Assaultman ID - MMTSH/FREE T4 IF [id number] 06:54:11 Test Item Value Reference Range Interpretation Comments THYROID STIMULATING HORMONE 0.813 uIU/mL 0.350-4.940 ([employer]) (test code = 772) Infantry Assaultman ID - MMCOMPREHENSIVE METABOLIC [id number] 06:37:58 Test Item Value Reference Range Interpretation Comments TOTAL PROTEIN 7.8 gm/dL 6.0-8.3 ([employer]) (test code = 770) ALBUMIN ([employer] 4.2 g/dL 3.5-5.0 (test code = 1145) ALKALINE 71 U/L 40-150 PHOSPHATASE ([employer] (test code = 346) BILIRUBIN TOTAL 0.5 mg/dL 0.2-1.2 (BEAKER) (test code = 377) SODIUM (BEAKER) 137 meq/L 136-145 (test code = 381) POTASSIUM (BEAKER) 4.5 meq/L 3.5-5.1 (test code = 379) CHLORIDE (BEAKER) 107 meq/L 98-107 (test code = 382) CO2 (BEAKER) (test 19 meq/L 22-29 L code = 355) BLOOD UREA 40 mg/dL 7-21 H NITROGEN (BEAKER) (test code = 354) CREATININE 2.31 mg/dL 0.57-1.25 H (BEAKER) (test code = 358) GLUCOSE RANDOM 208 mg/dL 70-105 H (BEAKER) (test code = 652) CALCIUM (BEAKER) 9.1 mg/dL 8.4-10.2 (test code = 697) AST (SGOT) 50 U/L 5-34 H (BEAKER) (test code = 353) ALT (SGPT) 73 U/L 6-55 H (BEAKER) (test code = 347) EGFR (BEAKER) 29 Interpretatio n of eGFR (test code = 1092) mL/min/1.[address] age Description sq m Result G1 Jenn l or high >=90 G2 Mildly decreased 60-89 G3a Mildl y to moderately 45-5 9 G3b Moderately to s everely 30-44 G4 Severl y decreased 15-29 G5 Kidney failure <15Reported eGF R is based on the CKD-EPI 1 equation that d oes not use a race coefficientEsti mated GFR is not as accur ate as Creatinine Michelle mayo in predicting glom erular filtration rate . Estimated GFR is not appl icable for dialysis patien ts Infantry Assaultman ID - [id number] 06:37:16 Test Item Value Reference Range Interpretation Comments MAGNESIUM (BEAKER) (test code = 2.0 mg/dL 1.6-2.6 627) Infantry Assaultman ID - mmCBC W/PLT COUNT & AUTO [id number] 06:15:26 Test Item Value Reference Range Interpretation Comments WHITE BLOOD CELL COUNT (BEAKER) 4.1 K/ L 3.5-10.5 (test code = 775) RED BLOOD CELL COUNT (BEAKER) 3.82 M/ L 4.63-6.08 L (test code = 761) HEMOGLOBIN (BEAKER) (test code = 11.8 GM/DL 13.7-17.5 L 410) HEMATOCRIT (BEAKER) (test code = 36.8 % 40.1-51.0 L 411) MEAN CORPUSCULAR VOLUME (BEAKER) 96 fL 79-92 H (test code = 753) MEAN CORPUSCULAR HEMOGLOBIN 30.9 pg 25.7-32.2 (BEAKER) (test code = 751) MEAN CORPUSCULAR HEMOGLOBIN CONC 32.1 GM/DL 32.3-36.5 L (BEAKER) (test code = 752) RED CELL DISTRIBUTION WIDTH 14.3 % 11.6-14.4 (BEAKER) (test code = 412) PLATELET COUNT (BEAKER) (test 148 K/CU MM 150-450 L code = 756) MEAN PLATELET VOLUME (BEAKER) 9.4 fL 9.4-12.4 (test code = 754) NUCLEATED RED BLOOD CELLS 0 /100 WBC 0-0 (BEAKER) (test code = 413) NEUTROPHILS RELATIVE PERCENT 41 % (BEAKER) (test code = 429) LYMPHOCYTES RELATIVE PERCENT 42 % (BEAKER) (test code = 430) MONOCYTES RELATIVE PERCENT 8 % (BEAKER) (test code = 431) EOSINOPHILS RELATIVE PERCENT 8 % (BEAKER) (test code = 432) BASOPHILS RELATIVE PERCENT 1 % (BEAKER) (test code = 437) NEUTROPHILS ABSOLUTE COUNT 1.70 K/ L 1.78-5.38 L (BEAKER) (test code = 670) LYMPHOCYTES ABSOLUTE COUNT 1.73 K/ L 1.32-3.57 (BEAKER) (test code = 414) MONOCYTES ABSOLUTE COUNT (BEAKER) 0.34 K/ L 0.30-0.82 (test code = 415) EOSINOPHILS ABSOLUTE COUNT 0.31 K/ L 0.04-0.54 (BEAKER) (test code = 416) BASOPHILS ABSOLUTE COUNT (BEAKER) 0.02 K/ L 0.01-0.08 (test code = 417) IMMATURE GRANULOCYTES-RELATIVE 0.20 % 0.00-1.00 PERCENT (BEAKER) (test code = 2801) BASIC METABOLIC [id number] 22:41:57 Test Item Value Reference Range Interpretation Comments SODIUM (BEAKER) 138 meq/L 135-148 (test code = 381) POTASSIUM 4.4 meq/L (BEAKER) (test code = 379) CHLORIDE (BEAKER) 106 meq/L 98-106 (test code = 382) CO2 (BEAKER) 21 meq/L (test code = 355) BLOOD UREA 38 mg/dL 10-26 H NITROGEN (BEAKER) (test code = 354) CREATININE 2.15 mg/dL 0.50-1.20 H (BEAKER) (test code = 358) GLUCOSE RANDOM 194 mg/dL (BEAKER) (test code = 652) CALCIUM (BEAKER) 8.9 mg/dL 8.5-10.5 (test code = 697) EGFR (BEAKER) 32 Interpretatio n of eGFR (test code = mL/min/1.73 values Stage De scription 1092) sq m Result G1 Jenn l or high >=90 G2 Mildly decreased 60-89 G3a Mildl y to moderately 45-5 9 G3b Moderately to s everely 30-44 G4 Sever ly decreased 15-29 G5 Kidney failure <15Repo rted eGFR is based on the CKD-EPI 2020 equation t hat does not use a race coefficientEsti mated GFR is not as accur ate as Creatinine Michelle gael in predicting glom erular filtration rate . Estimated GFR is not appl icable for dialysis patien ts BLOOD GAS, [id number] 22:18:22 Test Item Value Reference Range Interpretation Comments PH VENOUS (BEAKER) (test code = 7.33 7.32-7.42 701) PCO2 VENOUS (BEAKER) (test code = 40 mm Hg 41-51 L 755) PO2 VENOUS (BEAKER) (test code = 44 mm Hg 25-40 H 702) O2 SATURATION VENOUS (BEAKER) 74.5 % 40.0-70.0 H (test code = 703) HCO3 VENOUS (BEAKER) (test code = 20 mmol/L 21-29 L 705) BASE EXCESS VENOUS (BEAKER) (test -4.8 mmol/L -2.0-3.0 L code = 704) PATIENT TEMPERATURE (BEAKER) 38.0 (test code = 1818) FIO2 (BEAKER) (test code = 1819) 24.0 BASIC METABOLIC [id number] 21:05:40 Test Item Value Reference Range Interpretation Comments SODIUM (BEAKER) 137 meq/L 136-145 (test code = 381) POTASSIUM 4.5 meq/L 3.5-5.1 Specimen slight ly (BEAKER) (test hemolyzed code = 379) CHLORIDE (BEAKER) 106 meq/L 98-107 (test code = 382) CO2 (BEAKER) 21 meq/L 22-29 L (test code = 355) BLOOD UREA 32 mg/dL 7-21 H NITROGEN (BEAKER) (test code = 354) CREATININE 2.21 mg/dL 0.57-1.25 H Specimen slight ly (BEAKER) (test hemolyzed code = 358) GLUCOSE RANDOM 208 mg/dL 70-105 H (BEAKER) (test code = 652) CALCIUM (BEAKER) 8.8 mg/dL 8.4-10.2 (test code = 697) EGFR (BEAKER) 31 Interpretatio n of eGFR (test code = mL/min/1.73 values Stage De scription 1092) sq m Result G1 Jenn l or high >=90 G2 Mildly decreased 60-89 G3a Mildl y to moderately 45-5 9 G3b Moderately to s everely 30-44 G4 Severl y decreased 15-29 G5 Kidney failure <15Reported eGF R is based on the CKD-EPI 2020 equation that d oes not use a race coefficientEsti mated GFR is not as accur ate as Creatinine Michelle gael in predicting glom erular filtration rate . Estimated GFR is not appl icable for dialysis patien ts LACTIC ACID, [id number] 21:02:38 Test Item Value Reference Range Interpretation Comments LACTATE BLOOD VENOUS 1.10 mmol/L 0.50-2.20 Specime n slightly (2) (BEAKER) (test hemolyzed code = 2872) POCT-GLUCOSE [id number] 19:27:55 Test Item Value Reference Range Interpretation Comments POC-GLUCOSE METER 210 mg/dL 70-110 H : TESTED A T [facility] 7200 (BEAKER) (test code [place] E BLDG A, = 1538) [place] 7703 0: Infantry Assaultman/Techni daniel ID = [id number] for NANCY RAGSDALE BLOOD GAS, [id number] 19:12:03 Test Item Value Reference Range Interpretation Comments PH VENOUS (BEAKER) (test code = 7.30 7.32-7.42 L 701) PCO2 VENOUS (BEAKER) (test code 30 mm Hg 41-51 L = 755) PO2 VENOUS (BEAKER) (test code = 26 mm Hg 25-40 702) O2 SATURATION VENOUS (BEAKER) 42.6 % 40.0-70.0 (test code = 703) HCO3 VENOUS (BEAKER) (test code 14 mmol/L 21-29 L = 705) BASE EXCESS VENOUS (BEAKER) -10.9 mmol/L -2.0-3.0 L (test code = 704) PATIENT TEMPERATURE (BEAKER) 37.0 (test code = 1818) FIO2 (BEAKER) (test code = 1819) 21.0 CT, BRAIN, WITHOUT IV [id number] 17:29:00Unlisted Reason for Exam - Click Yes and Enter Reason Below->No [facility] : 1950 Sex: MFINAL REPORT CT, BRAIN, WITHOUT IV CONTRAST CLINICAL INDICATION: Delirium COMPARISON: 02/26/2020 TECHNIQUE: Noncontrast axial CT imaging of the brain and skull. DOSE REDUCTION: Dose modulation, iterative reconstruction, and/or weight-based adjustment of the mA/kV was utilized to reduce the radiation dose to as low as reasonably achievable. FINDINGS:No intracranial hemorrhage, midline shift or mass effect. Remote infarct of the left frontal lobe. Scattered foci of hypoattenuation are present throughout the periventricular and subcortical white matter, and, although nonspecific by imaging, statistically represent mild chronic microvascular ischemic changes in this age group. No hydr ocephalus. Orbits are within normal limits. Prior bilateral lens surgery. Atherosclerotic calcification of the intracranial internal carotid arteries. No obstructive paranasal sinus disease. IMPRESSION: No acute intracranial findings If there is persistent clinical concern for intracranial pathology, MR examination is recommended for further characterization. Signed: Quyen Torres MDRepburke VerifiedDate/Time: 09/28/2022 17:29:30 Urinalysis w/[id number] 17:08:06 Test Item Value Reference Range Interpretation Comments Color, UA (test code = Yellow 5778-6) Clarity, UA (test code Clear = 5767-9) Specific Bastian, UA 1.010 1.005-1.030 (test code = 5811-5) pH, UA (test code = 6.0 5.0-9.0 5803-2) Protein, UA (test code Negative Negative = 99826-4) Glucose, UA (test code >=1000 mg/dL Negative A = 365) Ketones, UA (test code Negative Negative = 2514-8) Bilirubin, UA (test Negative Negative code = 65295-8) Blood, UA (test code = Negative Negative 19455-2) Nitrite, UA (test code Negative Negative = 5802-4) Leukocytes, UA (test Negative Negative code = 5799-2) Urobilinogen, UA (test 0.2 code = 52332-9) RBC, UA (test code = 0 See_Comment [Autom ated 03342-8) message] The sy stem which generated this result transmitted reference range : /HPF. The refer ence range was not u sed to interpret th is result as normal/abnormal . WBC, UA (test code = 0 See_Comment [Autom ated 5821-4) message] The sy stem which generated this result transmitted reference range : /HPF. The refer ence range was not u sed to interpret th is result as normal/abnormal . Specimen Source (test code = 2795) Lab Interpretation Abnormal (test code = 67005-6) [facility]/[id number] 17:08:06 Test Item Value Reference Range Interpretation Comments Color, UA (test code = Yellow 5778-6) Clarity, UA (test code Clear = 5767-9) Specific Bastian, UA 1.010 1.005-1.030 (test code = 5811-5) pH, UA (test code = 6.0 5.0-9.0 5803-2) Protein, UA (test code Negative Negative = 76978-7) Glucose, UA (test code >=1000 mg/dL Negative A = 365) Ketones, UA (test code Negative Negative = 2514-8) Bilirubin, UA (test Negative Negative code = 70397-9) Blood, UA (test code = Negative Negative 35161-8) Nitrite, UA (test code Negative Negative = 5802-4) Leukocytes, UA (test Negative Negative code = 5799-2) Urobilinogen, UA (test 0.2 code = 99169-0) RBC, UA (test code = 0 See_Comment [Autom ated 62312-6) message] The sy stem which generated this result transmitted reference range : /HPF. The refer ence range was not u sed to interpret th is result as normal/abnormal . WBC, UA (test code = 0 See_Comment [Autom ated 5821-4) message] The sy stem which generated this result transmitted reference range : /HPF. The refer ence range was not u sed to interpret th is result as normal/abnormal . Specimen Source (test code = 2795) Lab Interpretation Abnormal (test code = 94409-0) [facility]/[id number] 17:08:06 Test Item Value Reference Range Interpretation Comments Color, UA (test code = Yellow 5778-6) Clarity, UA (test code Clear = 5767-9) Specific Bastian, UA 1.010 1.005-1.030 (test code = 5811-5) pH, UA (test code = 6.0 5.0-9.0 5803-2) Protein, UA (test code Negative Negative = 50654-7) Glucose, UA (test code >=1000 mg/dL Negative A = 365) Ketones, UA (test code Negative Negative = 2514-8) Bilirubin, UA (test Negative Negative code = 82042-7) Blood, UA (test code = Negative Negative 84312-5) Nitrite, UA (test code Negative Negative = 5802-4) Leukocytes, UA (test Negative Negative code = 5799-2) Urobilinogen, UA (test 0.2 code = 72539-9) RBC, UA (test code = 0 See_Comment [Autom ated 22243-8) message] The sy stem which generated this result transmitted reference range : /HPF. The refer ence range was not u sed to interpret th is result as normal/abnormal . WBC, UA (test code = 0 See_Comment [Autom ated 5821-4) message] The sy stem which generated this result transmitted reference range : /HPF. The refer ence range was not u sed to interpret th is result as normal/abnormal . Specimen Source (test code = 2795) Lab Interpretation Abnormal (test code = 71854-1) [facility]/[id number] 17:08:06 Test Item Value Reference Range Interpretation Comments Color, UA (test code = Yellow 5778-6) Clarity, UA (test code Clear = 5767-9) Specific Bastian, UA 1.010 1.005-1.030 (test code = 5811-5) pH, UA (test code = 6.0 5.0-9.0 5803-2) Protein, UA (test code Negative Negative = 65030-8) Glucose, UA (test code >=1000 mg/dL Negative A = 365) Ketones, UA (test code Negative Negative = 2514-8) Bilirubin, UA (test Negative Negative code = 41256-0) Blood, UA (test code = Negative Negative 54800-5) Nitrite, UA (test code Negative Negative = 5802-4) Leukocytes, UA (test Negative Negative code = 5799-2) Urobilinogen, UA (test 0.2 code = 37069-5) RBC, UA (test code = 0 See_Comment [Autom ated 21277-2) message] The sy stem which generated this result transmitted reference range : /HPF. The refer ence range was not u sed to interpret th is result as normal/abnormal . WBC, UA (test code = 0 See_Comment [Autom ated 5821-4) message] The sy stem which generated this result transmitted reference range : /HPF. The refer ence range was not u sed to interpret th is result as normal/abnormal . Specimen Source (test code = 2795) Lab Interpretation Abnormal (test code = 70649-6) [facility]/[id number] 17:08:06 Test Item Value Reference Range Interpretation Comments Color, UA (test code = Yellow 5778-6) Clarity, UA (test code Clear = 5767-9) Specific Bastian, UA 1.010 1.005-1.030 (test code = 5811-5) pH, UA (test code = 6.0 5.0-9.0 5803-2) Protein, UA (test code Negative Negative = 59485-4) Glucose, UA (test code >=1000 mg/dL Negative A = 365) Ketones, UA (test code Negative Negative = 2514-8) Bilirubin, UA (test Negative Negative code = 18717-8) Blood, UA (test code = Negative Negative 96945-4) Nitrite, UA (test code Negative Negative = 5802-4) Leukocytes, UA (test Negative Negative code = 5799-2) Urobilinogen, UA (test 0.2 code = 05622-1) RBC, UA (test code = 0 See_Comment [Autom ated 57020-2) message] The sy stem which generated this result transmitted reference range : /HPF. The refer ence range was not u sed to interpret th is result as normal/abnormal . WBC, UA (test code = 0 See_Comment [Autom ated 5821-4) message] The sy stem which generated this result transmitted reference range : /HPF. The refer ence range was not u sed to interpret th is result as normal/abnormal . Specimen Source (test code = 2795) Lab Interpretation Abnormal (test code = 72127-5) [facility]/[id number] 17:08:06 Test Item Value Reference Range Interpretation Comments Color, UA (test code = Yellow 5778-6) Clarity, UA (test code Clear = 5767-9) Specific Bastian, UA 1.010 1.005-1.030 (test code = 5811-5) pH, UA (test code = 6.0 5.0-9.0 5803-2) Protein, UA (test code Negative Negative = 23566-5) Glucose, UA (test code >=1000 mg/dL Negative A = 365) Ketones, UA (test code Negative Negative = 2514-8) Bilirubin, UA (test Negative Negative code = 38420-7) Blood, UA (test code = Negative Negative 12492-4) Nitrite, UA (test code Negative Negative = 5802-4) Leukocytes, UA (test Negative Negative code = 5799-2) Urobilinogen, UA (test 0.2 code = 50261-6) RBC, UA (test code = 0 See_Comment [Autom ated 30636-4) message] The sy stem which generated this result transmitted reference range : /HPF. The refer ence range was not u sed to interpret th is result as normal/abnormal . WBC, UA (test code = 0 See_Comment [Autom ated 5821-4) message] The sy stem which generated this result transmitted reference range : /HPF. The refer ence range was not u sed to interpret th is result as normal/abnormal . Specimen Source (test code = 2795) Lab Interpretation Abnormal (test code = 79446-4) [facility]/ [id number] 17:08:06 Test Item Value Reference Range Interpretation Comments COLOR (BEAKER) (test code = 470) Yellow CLARITY (BEAKER) (test code = Clear 469) SPECIFIC GRAVITY UA (BEAKER) 1.010 1.005-1.030 (test code = 468) PH UA (BEAKER) (test code = 467) 6.0 5.0-9.0 PROTEIN UA (BEAKER) (test code = Negative Negative 464) GLUCOSE UA (BEAKER) (test code = >=1000 mg/dL Negative A 365) KETONES UA (BEAKER) (test code = Negative Negative 371) BILIRUBIN UA (BEAKER) (test code Negative Negative = 462) BLOOD UA (BEAKER) (test code = Negative Negative 461) NITRITE UA (BEAKER) (test code = Negative Negative 465) LEUKOCYTE ESTERASE UA (BEAKER) Negative Negative (test code = 466) UROBILINOGEN UA (BEAKER) (test 0.2 code = 463) RBC UA (BEAKER) (test code = 0 /HPF 519) WBC UA (BEAKER) (test code = 0 /HPF 520) SOURCE(BEAKER) (test code = 2795) KETONE, [id number] 16:27:24 Test Item Value Reference Range Interpretation Comments KETONES, BLOOD (BEAKER) (test code 0.2 mmol/L <0.4 = 1103) COMPREHENSIVE METABOLIC [id number] 16:08:49 Test Item Value Reference Range Interpretation Comments TOTAL PROTEIN 8.2 gm/dL 6.0-8.3 Specimen sligh tly (BEAKER) (test hemolyzed code = 770) ALBUMIN (BEAKER) 4.7 g/dL 3.5-5.0 Specimen sl ightly (test code = 1145) hemolyzed ALKALINE 108 U/L 40-150 PHOSPHATASE (BEAKER) (test code = 346) BILIRUBIN TOTAL 0.5 mg/dL 0.2-1.2 Specimen sli ghtly (BEAKER) (test hemolyzed code = 377) SODIUM (BEAKER) 134 meq/L 136-145 L (test code = 381) POTASSIUM (BEAKER) 5.0 meq/L 3.5-5.1 Specimen slightly (test code = 379) hemolyzed CHLORIDE (BEAKER) 103 meq/L 98-107 (test code = 382) CO2 (BEAKER) (test 21 meq/L 22-29 L code = 355) BLOOD UREA 38 mg/dL 7-21 H NITROGEN (BEAKER) (test code = 354) CREATININE 2.45 mg/dL 0.57-1.25 H Specimen slight ly (BEAKER) (test hemolyzed code = 358) GLUCOSE RANDOM 342 mg/dL 70-105 H (BEAKER) (test code = 652) CALCIUM (BEAKER) 8.7 mg/dL 8.4-10.2 (test code = 697) AST (SGOT) 40 U/L 5-34 H Specimen slight ly (BEAKER) (test hemolyzed code = 353) ALT (SGPT) 74 U/L 6-55 H Specimen slight ly (BEAKER) (test hemolyzed code = 347) EGFR (BEAKER) 27 Interpretatio n of eGFR (test code = 1092) mL/min/1.[address] age Description sq m Result G1 Norm al or high >=90 G2 Mildly decreased 60-89 G3a Mildl y to moderately 45-5 9 G3b Moderately to s everely 30-44 G4 Severl y decreased 15-29 G5 Kidney failure <15Reported eGF R is based on the CKD-EPI 2020 equation that d oes not use a race coefficientEsti mated GFR is not as accur ate as Creatinine Michelle mayo in predicting glom erular filtration rate . Estimated GFR is not appl icable for dialysis patien ts BLOOD GAS, [id number] 15:43:24 Test Item Value Reference Range Interpretation Comments PH VENOUS (BEAKER) (test code = 7.28 7.32-7.42 L 701) PCO2 VENOUS (BEAKER) (test code = 46 mm Hg 41-51 755) PO2 VENOUS (BEAKER) (test code = 38 mm Hg 25-40 702) O2 SATURATION VENOUS (BEAKER) 64.1 % 40.0-70.0 (test code = 703) HCO3 VENOUS (BEAKER) (test code = 21 mmol/L 21-29 705) BASE EXCESS VENOUS (BEAKER) (test -5.6 mmol/L -2.0-3.0 L code = 704) PATIENT TEMPERATURE (BEAKER) 37.0 (test code = 1818) FIO2 (BEAKER) (test code = 1819) 21.0 CBC W/PLT COUNT & AUTO [id number] 15:40:58 Test Item Value Reference Range Interpretation Comments WHITE BLOOD CELL COUNT (BEAKER) 5.3 K/ L 3.5-10.5 (test code = 775) RED BLOOD CELL COUNT (BEAKER) 3.96 M/ L 4.63-6.08 L (test code = 761) HEMOGLOBIN (BEAKER) (test code = 12.6 GM/DL 13.7-17.5 L 410) HEMATOCRIT (BEAKER) (test code = 38.7 % 40.1-51.0 L 411) MEAN CORPUSCULAR VOLUME (BEAKER) 98 fL 79-92 H (test code = 753) MEAN CORPUSCULAR HEMOGLOBIN 31.8 pg 25.7-32.2 (BEAKER) (test code = 751) MEAN CORPUSCULAR HEMOGLOBIN CONC 32.6 GM/DL 32.3-36.5 (BEAKER) (test code = 752) RED CELL DISTRIBUTION WIDTH 13.8 % 11.6-14.4 (BEAKER) (test code = 412) PLATELET COUNT (BEAKER) (test 169 K/CU MM 150-450 code = 756) MEAN PLATELET VOLUME (BEAKER) 9.5 fL 9.4-12.4 (test code = 754) NEUTROPHILS RELATIVE PERCENT 52 % (BEAKER) (test code = 429) LYMPHOCYTES RELATIVE PERCENT 33 % (BEAKER) (test code = 430) MONOCYTES RELATIVE PERCENT 8 % (BEAKER) (test code = 431) EOSINOPHILS RELATIVE PERCENT 7 % (BEAKER) (test code = 432) BASOPHILS RELATIVE PERCENT 1 % (BEAKER) (test code = 437) NEUTROPHILS ABSOLUTE COUNT 2.75 K/ L 1.78-5.38 (BEAKER) (test code = 670) LYMPHOCYTES ABSOLUTE COUNT 1.75 K/ L 1.32-3.57 (BEAKER) (test code = 414) MONOCYTES ABSOLUTE COUNT (BEAKER) 0.40 K/ L 0.30-0.82 (test code = 415) EOSINOPHILS ABSOLUTE COUNT 0.36 K/ L 0.04-0.54 (BEAKER) (test code = 416) BASOPHILS ABSOLUTE COUNT (BEAKER) 0.03 K/ L 0.01-0.08 (test code = 417) IMMATURE GRANULOCYTES-RELATIVE 0.40 % 0.00-1.00 PERCENT (BEAKER) (test code = 2801) POCT-GLUCOSE [id number] 14:55:54 Test Item Value Reference Range Interpretation Comments POC-GLUCOSE METER 336 mg/dL 70-110 H : TESTED A T [facility] 7200 (BEAKER) (test code [place] E BLDG A, = 1538) [facility] 7703 0: Infantry Assaultman/Techni daniel ID = [id number] for PRINCE LU (V)WERNER [id number] 14:47:28 Test Item Value Reference Range Interpretation Comments CORTISOL, TOTAL (BEAKER) (test 17.1 ug/dL 3.7-19.4 code = 2755) Infantry Assaultman ID - DBTSH/FREE T4 IF [id number] 11:35:30 Test Item Value Reference Range Interpretation Comments THYROID STIMULATING HORMONE 1.692 uIU/mL 0.350-5.500 (BEAKER) (test code = 772) COMPREHENSIVE METABOLIC [id number] 11:28:54 Test Item Value Reference Range Interpretation Comments TOTAL PROTEIN 7.6 gm/dL 6.0-8.3 Specimen sligh tly (BEAKER) (test hemolyzed code = 770) ALBUMIN (BEAKER) 4.4 g/dL 3.5-5.0 Specimen sl ightly (test code = 1145) hemolyzed ALKALINE 105 U/L 40-150 PHOSPHATASE (BEAKER) (test code = 346) BILIRUBIN TOTAL 0.4 mg/dL 0.2-1.2 Specimen sli ghtly (BEAKER) (test hemolyzed code = 377) SODIUM (BEAKER) 133 meq/L 136-145 L (test code = 381) POTASSIUM (BEAKER) 5.5 meq/L 3.5-5.1 H Specimen slightly (test code = 379) hemolyzed CHLORIDE (BEAKER) 104 meq/L 98-107 (test code = 382) CO2 (BEAKER) (test 20 meq/L 22-29 L code = 355) BLOOD UREA 43 mg/dL 7-21 H NITROGEN (BEAKER) (test code = 354) CREATININE 2.63 mg/dL 0.57-1.25 H Specimen slight ly (BEAKER) (test hemolyzed code = 358) GLUCOSE RANDOM 469 mg/dL 70-105 HH (BEAKER) (test code = 652) CALCIUM (BEAKER) 8.6 mg/dL 8.4-10.2 (test code = 697) AST (SGOT) 37 U/L 5-34 H Specimen slight ly (BEAKER) (test hemolyzed code = 353) ALT (SGPT) 66 U/L 6-55 H Specimen slight ly (BEAKER) (test hemolyzed code = 347) EGFR (BEAKER) 25 Interpretatio n of eGFR (test code = 1092) mL/min/1.[address] age Description sq m Result G1 Jenn l or high >=90 G2 Mildly decreased 60-89 G3a Mildl y to moderately 45-5 9 G3b Moderately to s everely 30-44 G4 Severl y decreased 15-29 G5 Kidney failure <15Reported eGF R is based on the CKD-EPI 2021 equation that d oes not use a race coefficientEsti mated GFR is not as accur ate as Creatinine Michelle mayo in predicting glom erular filtration rate . Estimated GFR is not appl icable for dialysis patien ts CBC W/PLT COUNT & AUTO [id number] 11:08:30 Test Item Value Reference Range Interpretation Comments WHITE BLOOD CELL COUNT (BEAKER) 5.0 K/ L 3.5-10.5 (test code = 775) RED BLOOD CELL COUNT (BEAKER) 3.80 M/ L 4.63-6.08 L (test code = 761) HEMOGLOBIN (BEAKER) (test code = 12.1 GM/DL 13.7-17.5 L 410) HEMATOCRIT (BEAKER) (test code = 37.3 % 40.1-51.0 L 411) MEAN CORPUSCULAR VOLUME (BEAKER) 98 fL 79-92 H (test code = 753) MEAN CORPUSCULAR HEMOGLOBIN 31.8 pg 25.7-32.2 (BEAKER) (test code = 751) MEAN CORPUSCULAR HEMOGLOBIN CONC 32.4 GM/DL 32.3-36.5 (BEAKER) (test code = 752) RED CELL DISTRIBUTION WIDTH 13.8 % 11.6-14.4 (BEAKER) (test code = 412) PLATELET COUNT (BEAKER) (test 160 K/CU MM 150-450 code = 756) MEAN PLATELET VOLUME (BEAKER) 9.7 fL 9.4-12.4 (test code = 754) NEUTROPHILS RELATIVE PERCENT 53 % (BEAKER) (test code = 429) LYMPHOCYTES RELATIVE PERCENT 32 % (BEAKER) (test code = 430) MONOCYTES RELATIVE PERCENT 8 % (BEAKER) (test code = 431) EOSINOPHILS RELATIVE PERCENT 7 % (BEAKER) (test code = 432) BASOPHILS RELATIVE PERCENT 0 % (BEAKER) (test code = 437) NEUTROPHILS ABSOLUTE COUNT 2.61 K/ L 1.78-5.38 (BEAKER) (test code = 670) LYMPHOCYTES ABSOLUTE COUNT 1.60 K/ L 1.32-3.57 (BEAKER) (test code = 414) MONOCYTES ABSOLUTE COUNT (BEAKER) 0.42 K/ L 0.30-0.82 (test code = 415) EOSINOPHILS ABSOLUTE COUNT 0.33 K/ L 0.04-0.54 (BEAKER) (test code = 416) BASOPHILS ABSOLUTE COUNT (BEAKER) 0.02 K/ L 0.01-0.08 (test code = 417) IMMATURE GRANULOCYTES-RELATIVE 0.00 % 0.00-1.00 PERCENT (BEAKER) (test code = 2801) CT, [id number] 13:45:00Restaging RCC, please schedule late February/early March 2022. Can be late as the morning of 04/13/2022 if PT prefers.Restaging RCC, please schedule late February/early March 2022. Can be late asthe morning of 04/13/2022 if PT prefers.Unlisted Reason for Exam - Click Yes and Enter Reason Below->YesUnlisted Reason for Exam->Clear cell renal cell carcinoma, left (HCC)Protocol Please Specify:->Standard ProtocolWill this procedure require oral contrast?->No [facility] : 1950 Sex: MFINAL REPORT CT of the chest, abdomen and pelvis, without contrast Clinical History: Unlisted Reason for ExamClear cell renal cell carcinoma, left (HCC) Technique: CT of the chest, abdomen and pelvis is performed without intravenous contrast administration. This exam was performed according to our departmental dose optimization program which includes automated exposure control, adjustment of the mA and/or kV according to patient's size and/or use of iterative reconstructive technique. Comparison Film: December 13, 2021, August 28, 2021, June 07, 2021 Discussion: There is a right-sided Port-A-Cath. No supraclavicular, axillary, mediastinal or hilar lymphadenopathy. Heart is normal insize, no pericardial effusion. There is advanced coronary artery calcification. There is mild scarring or atelectasis and groundglass opacities at the lung bases. No new mass or consolidation. A few scattered small pulmonary nodules are unchanged. No new mass or consolidation. No effusion. Central airw ays are patent, no bronchiectasis or bronchial wall thickening. Liver is mildly nodular. No liver mass is identified on this noncontrast exam. A stone is noted in the gallbladder. No biliary ductal dilatation. The spleen, pancreas, and adrenal glands are normal. Status post left nephrectomy. There is a stable 4 mm nonobstructive stone in the right kidney. No hydronephrosis, contour deforming lesion. No bowel obstruction, or abnormal bowel wall thickening. Normal appendix. In the pelvis, bladder is unremarkable. Prostate gland is enlarged. There is a small fat-containing right inguinal hernia. No ascites, free air, or adenopathy. 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 Bony structures demonstrate degenerative changes. Status post surgical repair of the right hemipelvis. No suspicious bony lesion is identified. Impression: Stable exam, no new disease is identified in the chest, abdomen or pelvis. Signed: Karan Fregosoeport Verified Date/Time: 05/14/2022 13:45:38 Reading Location: [address] Consult Reading Room CT, CHEST, WITHOUT IV [id number] 13:45:00Restaging RCC, please schedule late February/early March 2022. Can be late as the morning of 04/13/2022 if PT prefers.Restaging RCC, please schedule late February /early March 2022. Can be late as the morning of 04/13/2022 if PT prefers.Unlisted Reason for Exam - Click Yes and Enter Reason Below->YesUnlisted Reason for Exam->Clear cell renal cell carcinoma, left (HCC) [facility] 1950 Sex: MFINAL REPORT CT of the chest, abdomen and pelvis, without contrast Clinical History: Unlisted Reason for ExamClear cell renal cell carcinoma, left (HCC) Technique: CT of the chest, abdomen and pelvis is performed without intravenous contrast administration. This exam was performed according to our departmental dose optimization program which includes automated exposure control, adjustment of the mA and/or kV according to patient's size and/or use of iterative reconstructive technique. Comparison Film: December 13, 2021, August 28, 2021, June 07, 2021 Discussion: There is a right-sided Port-A-Cath. No supraclavicular, axillary, mediastinal or hilar lymphadenopathy. Heart is normal insize, no pericardial effusion. There is advanced coronary artery calcification. There is mild scarring or atelectasis and groundglass opacities at the lung bases. No new mass or consolidation. A few scattered small pulmonary nodules are unchanged. No new mass or consolidation. No effusion. Central airw ays are patent, no bronchiectasis or bronchial wall thickening. Liver is mildly nodular. No liver mass is identified on this noncontrast exam. A stone is noted in the gallbladder. No biliary ductal dilatation. The spleen, pancreas, and adrenal glands are normal. Status post left nephrectomy. There is a stable 4 mm nonobstructive stone in the right kidney. No hydronephrosis, contour deforming lesion. No bowel obstruction, or abnormal bowel wall thickening. Normal appendix. In the pelvis, bladder is unremarkable. Prostate gland is enlarged. There is a small fat-containing right inguinal hernia. No ascites, free air, or adenopathy. 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 Bony structures demonstrate degenerative changes. Status post surgical repair of the right hemipelvis. No suspicious bony lesion is identified. Impression: Stable exam, no new disease is identified in the chest, abdomen or pelvis. Signed: Karan Fregosoort Verified Date/Time: 05/14/2022 13:45:38 Reading Location: [address] Consult Reading Room -DENSITY LIPOPROTEIN, [id number] 06:04:40 Test Item Value Reference Range Interpretation Comments dLDL Chol (test code = 87 mg/dL See_Comment [Aut omated message] 32880-4) The system [employer] generated this result transmitted ref erence range: <=130. T he reference range was not used to int erpret this result as normal/abnormal . Lab Interpretation (test Normal code = 08986-0) [facility]INE[facility] 20:53:40 Test Item Value Reference Range Interpretation Comments T3 (test code = 9140298821) 110.0 ng/dL 97-170 Lab Interpretation (test code = Normal 38738-3) [facility] CenterCORTISOL [id number] 20:53:40 Test Item Value Reference Range Interpretation Comments WILFRID AM (test code = 11.7 ug/dL 4.5-23 9362975904) SHA (test code = SHA) Biotin has been reported to cause a positive bias, interpret results relative to patient's use of biotin. Lab Interpretation (test Normal code = 66189-3) [facility] CenterTHYROID STIMULATING [id number] 19:32:41 Test Item Value Reference Range Interpretation Comments TSH (test code = See_Comment [Automated message] 0605223042) The system [employer] generated this result transmitted ref erence range: 0.45 - 4 .70 mIU/L. The refe rence range was not u sed to interpret this result as normal/abnor mal. Lab Interpretation (test Normal code = 47355-2) [facility] CenterFREE [id number] 19:18:58 Test Item Value Reference Range Interpretation Comments FREE T4 (test code = See_Comment [Autom ated message] [id number]) The system [employer] generated this result transmitted ref erence range: 0.78 - 2 .20 ng/dL:. The ref erence range was not u sed to interpret this result as normal/abnor mal. Lab Interpretation (test Normal code = 94641-6) [facility] CenterLIPID PANEL (63498)(TOTAL CHOLESTEROL, TRIGLYCERIDES, HDL)2022-02-01 19:17:06 Test Item Value Reference Range Interpretation Comments CHOL (test code = 175 mg/dL 120-200 6131108343) HDL (test code = 23 mg/dL See_Comment L [Automated message] [id number]) The system [employer] generated this result transmitted ref erence range: >=40. Th e reference range was not used to int erpret this result as normal/abnormal . HDLC RATIO (test code = See_Comment H [Au tomated message] 4396979165) The system [employer] generated this result transmitted ref erence range: <=5.0. T he reference range was not used to int erpret this result as normal/abnormal . TRIG (test code = 415 mg/dL 30-170 H 1383275608) LDL CHOL (test code = Unable to calculate 10582-7) LDL due to elev ated triglyceride le rosa greater than 40 0 mg/dL. VLDL (test code = 83 mg/dL 5-60 H 2981748262) Lab Interpretation Abnormal (test code = 93235-9) [facility]. METABOLIC PANEL (27026)2022-02-01 19:07:55 Test Item Value Reference Range Interpretation Comments NA (test code = 140 mmol/L 135-145 7956262134) K (test code = 4.9 mmol/L 3.5-5 4973975008) CL (test code = 105 mmol/L 98-108 4964141507) CO2 TOTAL (test code = 20 mmol/L 23-31 L 8487680498) AGAP (test code = 2-16 1985026144) BUN (test code = 43 mg/dL 7-23 H 8019446632) GLUCOSE (test code = 199 mg/dL 70-110 H 0910465892) CREATININE (test code = 1.96 mg/dL 0.6-1.25 H 5856286928) TOTAL BILI (test code = 0.4 mg/dL 0.1-1.5 6344993912) CALCIUM (test code = 9.2 mg/dL 8.6-10.6 2710138448) T PROTEIN (test code = 7.4 g/dL 6.3-8.2 7339202759) ALBUMIN (test code = 4.4 g/dL 3.5-5 2530443862) ALK PHOS (test code = 91 U/L 34-122 6349150425) ALTv (test code = 59 U/L 5-50 H 1742-6) AST(SGOT) (test code = 40 U/L 13-40 7790979195) eGFR (test code = mL/min/1.73m2 4635613109) SHA (test code = SHA) Association of Glomerular Filtration Rate (GFR) and Staging of Kidney Disease* + --+ --+ ------+| GFR (mL/min/1.73 m2) ?| With Kidney Damage ?| ?Without Kidney Damage+ --------+ --------+ +| ?>90 ?| ?Stage one ?| ? Normal ?+ ---+ ---+ -------+| ?60-89 ?| ?Stage two ?| ? Decreased GFR ? + --+ --+ ------+| ?30-59 ?| ?Stage three ?| ? Stage three ? + --+ --+ ------+| ?15-29 ?| ?Stage four ? | ? Stage four ?+ ---+ ---+ -------+| ?<15 (or dialysis) ? ?| ?Stage five ? | ? Stage five ?+ ---+ ---+ -------+ *Each stage assumes the associated GFR level has been in effect for at least three months. ?Stages 1 to 5, with or without kidney disease, indicate chronic kidney disease. Notes: Determination of stages one and two (with eGFR >59mL/min/1.73 m2) requires estimation of kidney damage for at least three months as defined by structural or functional abnormalities of the kidney, manifested by either:Pathological abnormalities or Markers of kidney damage (including abnormalities in the composition of the blood or urine or abnormalities in imaging tests). Lab Interpretation Abnormal (test code = 14553-4) [facility] WITH [id number] 18:23:07 Test Item Value Reference Range Interpretation Comments WBC (test code = See_Comment [Automated 8454-2) message] The sy stem which generated this result transmitted reference range : 4.20 - 10.70 10*3/?L. The reference range was not used to interpret this result as normal/abnormal . RBC (test code = See_Comment L [Automated 909-8) message] The sy stem which generated this result transmitted reference range : 4.26 - 5.52 10*6/?L. The reference range was not used to interpret this result as normal/abnormal . HGB (test code = 12.2 g/dL 12.2-16.4 718-7) HCT (test code = 38.0 % 38.4-49.3 L 4544-3) MCV (test code = 96.4 fL 81.7-95.6 H 787-2) MCH (test code = 31.0 pg 26.1-32.7 785-6) MCHC (test code = 32.1 g/dL 31.2-35 786-4) RDW-SD (test code = 51.1 fL 38.5-51.6 37345-2) RDW-CV (test code = 14.8 % 12.1-15.4 788-0) PLT (test code = See_Comment L [Automated 777-3) message] The sy stem which generated this result transmitted reference range : 150 - 328 10*3/ ?L. The reference r waldo was not used to interpret this result as normal/abnormal . MPV (test code = 9.7 fL 9.8-13 L 58198-0) NRBC/100 WBC (test See_Comment [Automat ed code = 3612232680) message] The system which generated this result transmitted reference range : 0.0 - 10.0 /100 WBCs. The refer ence range was not u sed to interpret th is result as normal/abnormal . NRBC x10^3 (test code See_Comment [Auto mated = 5677082797) message] The s ystem which generated this result transmitted reference range : 10*3/?L. The reference range was not used to interpret this result as normal/abnormal . GRAN MAT (NEUT) % 58.2 % (test code = 770-8) IMM GRAN % (test code 0.40 % = 4147039615) LYMPH % (test code = 30.2 % 736-9) MONO % (test code = 7.7 % 5905-5) EOS % (test code = 3.3 % 713-8) BASO % (test code = 0.2 % 706-2) GRAN MAT x10^3(ANC) 2.63 10*3/uL 1.99-6.95 (test code = 7468835698) IMM GRAN x10^3 (test 0-0.06 code = 0571817958) LYMPH x10^3 (test code 1.37 10*3/uL 1.09-3.23 = 731-0) MONO x10^3 (test code 0.35 10*3/uL 0.36-1.02 L = 742-7) EOS x10^3 (test code = 0.15 10*3/uL 0.06-0.53 711-2) BASO x10^3 (test code 0.01-0.09 = 704-7) Lab Interpretation Abnormal (test code = 66315-7) [facility] HEMOGLOBIN A1C [id number] 18:16:00 Test Item Value Reference Range Interpretation Comments POCT HBA1C (test code = 4548-4) 7.7 % 4-6 A Lab Interpretation (test code = Abnormal 09025-8) [facility] HEMOGLOBIN A1C [id number] 18:16:00 Test Item Value Reference Range Interpretation Comments POCT HBA1C (test code = 4548-4) 7.7 % 4-6 A Lab Interpretation (test code = Abnormal 85737-5) [facility] CenterCT, [id number] 12:58:00Restaging metastatic RCCRestaging metastatic RCCUnlisted Reason for Exam - Click Yes and Enter Reason Below->YesUnlisted Reason for Exam->Clear cell renal cell carcinoma, left (HCC)Is this for enterography?->NoWill this procedure require oral contrast?->No [facility]ENTERName: SHIVAM SYKES : 1950 Sex: MFINAL REPORT CT of the chest, abdomen and pelvis, without contrast Clinical History: Unlisted Reason for ExamClear cell renal cell carcinoma, left (HCC) Technique: CT of the chest, abdomen and pelvis is performed without intravenous contrast administration. This exam was performed according to our departmental dose optimization program which includes automated exposure control, adjustment of the mA and/or kV according to patient's size and/or use of iterative reconstructive technique. Comparison Film: August 28, 2021, June 07, 2021 Discussion: There is a right-sided Port-A-Cath. Visualized thyroid gland is normal. No supraclavicular, axillary, external or hilar lymphadenopathy. Heart and pericardium are unremarkable. Patchy bilateral groundglass opacities and interstitial thickening, predominantly located in the lower lungs, appear grossly unchanged. Stable 4 mm nodule in the right lower lobe (image 97), there is no new mass or nodule. No pleural effusion. Central airways are patent. No liver mass is identified on this noncontrast study. Again seen is a tiny calcified granuloma in the left lobe. No biliary ductal dilatation. There is a stone in the gallbladder. The spleen, pancreas, and adrenal glands are unremarkable. Status post left nephrectomy. There is a 4 mm nonobstructive stone in the right kidney. No hydronephrosis, or contour deforming renal lesion. No bowel obstruction, or abnormal bowel wall thickening. Normal appendix. In the pelvis, bladder is unremarkable. Prostate gland is markedly enlarged. There is a small fat-containing right inguinal hernia. Again seen is a 3.6 cm aneurysm of the infrarenal abdominal aorta. No ascites, or lymphadenopathy. Bony structures demonstrate degenerative changes, and post operative change of the right pelvis. No suspicious bony lesion. Impression: Stable exam, no new disease is identified in the chest, abdomen or pelvis. Other chronic findings as described. Signed: Karan Fregosoort Verified Date/Time: 12/14/2021 12:58:06 Reading Location: [facility] C013[facility] Consult Reading Room CT, CHEST, WITHOUT IV [id number] 12:58:00Restaging metastatic RCCRestaging metastatic RCCUnlisted Reason for Exam - Click Yes and Enter Reason Below->YesUnlisted Reason for Exam->Clear cell renal cell carcinoma, left (HCC) [facility] CENTERName: SHIVAM SYKES : 1950 Sex: MFINAL REPORT CT of the chest, abdomen and pelvis, without contrast Clinical History: Unlisted Reason for ExamClear cell renal cell carcinoma, left (HCC) Technique: CT of the chest, abdomen and pelvis is performed without intravenous contrast administration. This exam was performed according to our departmental dose optimization program which includes automated exposure control, adjustment of the mA and/or kV according to patient's size and/or use of iterative reconstructive technique. Comparison Film: August 28, 2021, June 07, 2021 Discussion: There is a right-sided Port-A-Cath. Visualized thyroid gland is normal. No supraclavicular, axillary, external or hilar lymphadenopathy. Heart and pericardium are unremarkable. Patchy bilateral groundglass opacities and interstitial thickening, predominantly located in the lower lungs, appear grossly unchanged. Stable 4 mm nodule in the right lower lobe (image 97), there is no new mass or nodule. No pleural effusion. Central airways are patent. No liver mass is identified on this noncontrast study. Again seen is a tiny calcified granuloma in the left lobe. No biliary ductal dilatation. There is a stone in the gallbladder. The spleen, pancreas, and adrenal glands are unremarkable. Status post left nephrectomy. There is a 4 mm nonobstructive stone in the right kidney. No hydronephrosis, or contour deforming renal lesion. No bowel obstruction, or abnormal bowel wall thickening. Normal appendix. In the pelvis, bladder is unremarkable. Prostate gland is markedly enlarged. There is a small fat-containing right inguinal hernia. Again seen is a 3.6 cm aneurysm of the infrarenal abdominal aorta. No ascites, or lymphadenopathy. Bony structures demonstrate degenerative changes, and post operative change of the right pelvis. No suspicious bony lesion. Impression: Stable exam, no new disease is identified in the chest, abdomen or pelvis. Other chronic findings as described. Signed: Karan Fregoso MDReport Verified Date/Time: 12/14/2021 12:58:06 Reading Location: [facility] C0[facility] Ortho Consult Reading Room COMPREHENSIVE METABOLIC [id number] 10:13:41 Test Item Value Reference Range Interpretation Comments TOTAL PROTEIN 7.9 gm/dL 6.0-8.3 (BEAKER) (test code = 770) ALBUMIN (BEAKER) 4.8 g/dL 3.5-5.0 (test code = 1145) ALKALINE PHOSPHATASE 93 U/L 40-150 (BEAKER) (test code = 346) BILIRUBIN TOTAL 0.4 mg/dL 0.2-1.2 (BEAKER) (test code = 377) SODIUM (BEAKER) (test 137 meq/L 136-145 code = 381) POTASSIUM (BEAKER) 5.2 meq/L 3.5-5.1 H (test code = 379) CHLORIDE (BEAKER) 106 meq/L 98-107 (test code = 382) CO2 (BEAKER) (test 23 meq/L 22-29 code = 355) BLOOD UREA NITROGEN 37 mg/dL 7-21 H (BEAKER) (test code = 354) CREATININE (BEAKER) 2.21 mg/dL 0.57-1.25 H (test code = 358) GLUCOSE RANDOM 296 mg/dL 70-105 H (BEAKER) (test code = 652) CALCIUM (BEAKER) 9.1 mg/dL 8.4-10.2 (test code = 697) AST (SGOT) (BEAKER) 78 U/L 5-34 H (test code = 353) ALT (SGPT) (BEAKER) 121 U/L 6-55 H (test code = 347) EGFR (BEAKER) (test 29 mL/min/1.73 ESTIMA ARIS GFR IS code = 1092) sq m NOT ACCURATE CREATININE CLEARANCE IN PREDICTING GLOMERULAR FILTRATION RATE . ESTIMATED GFR I S NOT APPLICABLE FOR DIALYSIS PATIEN TS. CBC W/PLT COUNT & AUTO [id number] 09:59:00 Test Item Value Reference Range Interpretation Comments WHITE BLOOD CELL COUNT (BEAKER) 5.8 K/ L 3.5-10.5 (test code = 775) RED BLOOD CELL COUNT (BEAKER) 4.09 M/ L 4.63-6.08 L (test code = 761) HEMOGLOBIN (BEAKER) (test code = 12.7 GM/DL 13.7-17.5 L 410) HEMATOCRIT (BEAKER) (test code = 38.5 % 40.1-51.0 L 411) MEAN CORPUSCULAR VOLUME (BEAKER) 94.1 fL 79.0-92.2 H (test code = 753) MEAN CORPUSCULAR HEMOGLOBIN 31.1 pg 25.7-32.2 (BEAKER) (test code = 751) MEAN CORPUSCULAR HEMOGLOBIN CONC 33.0 GM/DL 32.3-36.5 (BEAKER) (test code = 752) RED CELL DISTRIBUTION WIDTH 14.2 % 11.6-14.4 (BEAKER) (test code = 412) PLATELET COUNT (BEAKER) (test 190 K/CU MM 150-450 code = 756) MEAN PLATELET VOLUME (BEAKER) 9.9 fL 9.4-12.4 (test code = 754) NEUTROPHILS RELATIVE PERCENT 46 % (BEAKER) (test code = 429) LYMPHOCYTES RELATIVE PERCENT 36 % (BEAKER) (test code = 430) MONOCYTES RELATIVE PERCENT 8 % (BEAKER) (test code = 431) EOSINOPHILS RELATIVE PERCENT 9 % (BEAKER) (test code = 432) BASOPHILS RELATIVE PERCENT 1 % (BEAKER) (test code = 437) NEUTROPHILS ABSOLUTE COUNT 2.69 K/ L 1.78-5.38 (BEAKER) (test code = 670) LYMPHOCYTES ABSOLUTE COUNT 2.08 K/ L 1.32-3.57 (BEAKER) (test code = 414) MONOCYTES ABSOLUTE COUNT (BEAKER) 0.44 K/ L 0.30-0.82 (test code = 415) EOSINOPHILS ABSOLUTE COUNT 0.53 K/ L 0.04-0.54 (BEAKER) (test code = 416) BASOPHILS ABSOLUTE COUNT (BEAKER) 0.04 K/ L 0.01-0.08 (test code = 417) IMMATURE GRANULOCYTES-RELATIVE 0 % 0-1 PERCENT (BEAKER) (test code = 2801) CT, [id number] 14:04:00Unlisted Reason for Exam - Click Yes and Enter Reason Below->YesUnlisted Reason for Exam->Clear cell renal cell carcinomaIs this for enterography?->NoWill this procedure require oral contrast?->[facility] : 1950 Sex: MFINAL REPORT CT of the abdomen with and without contrast, CT of chest and pelvis with contrast Clinical History: Unlisted Reason for ExamClear cell renal cell carcinoma Technique: CT of the abdomen is performed without IV contrast, followed by CT of chest, abdomen and pelvis performed with intravenous contrast administration and without oral contrast administration. This exam was performed according to our departmental dose optimization program which includes automated exposure control, adjustment of the mA and/or kV according to patient's size and/or use of iterative reconstructive technique. Comparison Film: June 07, 2021, August 09, 2020 Discussion: There is a right-sided Por t-A-Cath. Visualized thyroid gland is normal. No supraclavicular, axillary, mediastinal or hilar lymphadenopathy. Heart is normal in size, no pericardial effusion. There are patchy bilateral groundglass and interstitial opacities at the lung bases without significant interval change. No new mass or con solidation. Central airways are patent, no bronchiectasis or bronchial wall thickening. No liver mass is identified. Liver is mildly fatty. No biliary ductal dilatation. Gallbladder contains a small stone. The spleen, pancreas, and adrenal glands are normal. Left kidney is absent. There is a nonobstructive 4 mm stone in the right kidney. No renal mass, or hydronephrosis. There is a small cyst in the right lower pole. No evidence of bowel obstruction, or abnormal bowel wall thickening. Normal appendix. In the pelvis, bladder is unremarkable. Prostate gland is enlarged. There is a small fat-containing right inguinal hernia. No ascites, or adenopathy. Status post right pelvic surgical fixation. Bony structures demonstrate advanced degenerative changes. No new bony lesion. An abdominal aortic aneurysm measures 3.6 cm in diameter. A follow-up examination is recommended every 2 years. Impression: Stable exam. No new disease is identified in the chest, abdomen or pelvis. Signed: Karan Fregoso Verified Date/Time: 08/28/2021 14:04:54 Reading Location: [address] Ortho Consult Reading Room CT, CHEST, WITHOUT / WITH IV [id number] 14:04:00Unlisted Reason for Exam - Click Yes and Enter Reason Below->YesUnlisted Reason for Exam->Clear cell renal cell [facility] : 1950 Sex: MFINAL REPORT CT of the abdomen with and without contrast, CT of chest and pelvis with contrast Clinical History: Unlisted Reason for ExamClear cell renal cell carcinoma Technique: CT of the abdomen is performed without IV contrast, followed by CT of chest, abdomen and pelvis performed with intravenous contrast administration and without oral contrast administration. This exam was performed according to our departmental dose optimization program which includes automated exposure control, adjustment of the mA and/or kV according to patient's size and/or use of iterative reconstructive technique. Comparison Film: June 07, 2021, August 09, 2020 Discussion: There is a right-sided Por t-A-Cath. Visualized thyroid gland is normal. No supraclavicular, axillary, mediastinal or hilar lymphadenopathy. Heart is normal in size, no pericardial effusion. There are patchy bilateral groundglass and interstitial opacities at the lung bases without significant interval change. No new mass or con solidation. Central airways are patent, no bronchiectasis or bronchial wall thickening. No liver mass is identified. Liver is mildly fatty. No biliary ductal dilatation. Gallbladder contains a small stone. The spleen, pancreas, and adrenal glands are normal. Left kidney is absent. There is a nonobstructive 4 mm stone in the right kidney. No renal mass, or hydronephrosis. There is a small cyst in the right lower pole. No evidence of bowel obstruction, or abnormal bowel wall thickening. Normal appendix. In the pelvis, bladder is unremarkable. Prostate gland is enlarged. There is a small fat-containing right inguinal hernia. No ascites, or adenopathy. Status post right pelvic surgical fixation. Bony structures demonstrate advanced degenerative changes. No new bony lesion. An abdominal aortic aneurysm measures 3.6 cm in diameter. A follow-up examination is recommended every 2 years. Impression: Stable exam. No new disease is identified in the chest, abdomen or pelvis. Signed: Karan Fregosoeport Verified Date/Time: 08/28/2021 14:04:54 Reading Location: [address] Ortho Consult Reading Room T-[id number] 12:37:19 Test Item Value Reference Range Interpretation Comments POC-Creatinine (test code 1.9 mg/dL 0.6-1.3 H : TESTED AT [facility] = 36340-9) [address] [facility] [address]: [employer]/Techni daniel ID = [id number] for Rula Simpson POC-EGFR (test code = 35 mL/min/1.73M2 43636-7) Lab Interpretation (test Abnormal code = 66421-0) [facility]-Nnyebwmsaf6186-85-27 12:37:19 Test Item Value Reference Range Interpretation Comments POC-Creatinine (test code 1.9 mg/dL 0.6-1.3 H : TESTED AT [facility] = 93460-4) [address] [place] [address]: [employer]/Techni daniel ID = [id number] for Simpson, Rula POC-EGFR (test code = 35 mL/min/1.73M2 67641-0) Lab Interpretation (test Abnormal code = 03848-2) [facility] 12:37:19 Test Item Value Reference Range Interpretation Comments POC-Creatinine (test code 1.9 mg/dL 0.6-1.3 H : TESTED AT [facility] = 01529-1) [address] [place] [address]: [employer]/Techni daniel ID = [id number] for Simpson, Rula POC-EGFR (test code = 35 mL/min/1.73M2 13520-7) Lab Interpretation (test Abnormal code = 94275-7) [facility]Ngbsxknelo8677-69-09 12:37:19 Test Item Value Reference Range Interpretation Comments POC-Creatinine (test code 1.9 mg/dL 0.6-1.3 H : TESTED AT [facility] = 33884-1) [address] [place] [address]: [employer]/Techni daniel ID = [id number] for Simpson, Rula POC-EGFR (test code = 35 mL/min/1.73M2 71732-1) Lab Interpretation (test Abnormal code = 11205-3) [facility]Llxjtl[facility]xt1944-11-56 12:37:19 Test Item Value Reference Range Interpretation Comments POC-Creatinine (test code 1.9 mg/dL 0.6-1.3 H : TESTED AT [facility] = 29825-1) [address] [place] [address] 99[address]: [employer]/Techni daniel ID = [id number] for Simpson, Rula POC-EGFR (test code = 35 mL/min/1.73M2 75207-8) Lab Interpretation (test Abnormal code = 63729-1) [facility]Qfjafyqwcs2009-55-20 12:37:19 Test Item Value Reference Range Interpretation Comments POC-Creatinine (test code 1.9 mg/dL 0.6-1.3 H : TESTED AT [facility] = 03745-8) [address] [place] [address]: [employer]/Techni daniel ID = [id number] for Simpson, Rula POC-EGFR (test code = 35 mL/min/1.73M2 12522-1) Lab Interpretation (test Abnormal code = 86191-0) [facility] HospitalVgcdducgjn3544-91-95 12:37:19 Test Item Value Reference Range Interpretation Comments POC-Creatinine (test code 1.9 mg/dL 0.6-1.3 H : TESTED AT [facility] = 16592-2) [address] [place] [address]: [employer]/Techni daniel ID = [id number] for Simpson, Rula POC-EGFR (test code = 35 mL/min/1.73M2 21470-2) Lab Interpretation (test Abnormal code = 93716-2) [facility] HospitalAxubqbchzw9245-53-94 12:37:19 Test Item Value Reference Range Interpretation Comments POC-Creatinine (test code 1.9 mg/dL 0.6-1.3 H : TESTED AT [facility] = 38385-1) [address] [place] [address] 24[address]: [employer]/Techni daniel ID = [id number] for Simpson, Rula POC-EGFR (test code = 35 mL/min/1.73M2 86921-7) Lab Interpretation (test Abnormal code = 49059-5) [id number] 12:37:19 Test Item Value Reference Range Interpretation Comments POC-Creatinine (test code 1.9 mg/dL 0.6-1.3 H : TESTED AT [facility] = 85272-5) [address] [place] [id number]: Infantry Assaultman/Techni daniel ID = [id number] for Simpson, Rula POC-EGFR (test code = 35 mL/min/1.73M2 39510-6) Lab Interpretation (test Abnormal code = 46490-3) [id number] 12:37:19 Test Item Value Reference Range Interpretation Comments POC-Creatinine (test code 1.9 mg/dL 0.6-1.3 H : TESTED AT [facility] = 70184-0) [address], [place] [address]: Infantry Assaultman/Techni daniel ID = [id number] for Rula Simpson POC-EGFR (test code = 35 mL/min/1.73M2 49770-1) Lab Interpretation (test Abnormal code = 31439-2) [facility]X-[id number] 12:37:19 Test Item Value Reference Range Interpretation Comments POC-CREATININE 1.9 mg/dL 0.6-1.3 H : TESTED AT [facility] ([facility]) ([facility] code = 1859) A, [facility] 7 5330: Infantry Assaultman/Techni daniel ID = [id number] for Rula Simpson POC-EGFR 35 mL/min/1.73M2 (BEAKER) (test code = 1860) CT, CHEST, WITHOUT IV [id number] 11:04:00Restaging RCC stage IVUnlisted Reason for Exam - Click Yes and Enter Reason Below->YesUnlisted Reason for Exam->Clear cell renal cell carcinoma, [facility] 1950 Sex: MFINAL REPORT TECHNIQUE: CT of the chest, abdomen, and pelvis WITHOUT intravenous contrast and WITHOUT oral contrast. Dose modulation, iterative reconstruction, and/or weight-based adjustment of the mA/kV was utilized to reduce the radiation dose to as low as reasonably achievable. INDICATION: Unlisted Reason for ExamClear cell renal cell carcinoma, left. COMPARISON: CTs dating back to 07/24/2018. FINDINGS: ABSENCE OF INTRAVENOUS CONTRAST DECREASES SENSITIVITY FOR DETECTION OF FOCAL LESIONS AND VASCULAR PATHOLOGY. LINES/TUBES: A right chest port has its tip in the lower SVC. Loop recorder in the subcutaneous tissues of the anterior chest. LUNGS AND AIRWAYS: A few scattered calcified granuloma is measure up to 0.4 cm. The interstitial, streaky, and groundglass opacities of the bilateral lower lungs are most likely due to a combination of scar and atelectasis. A right lower lobe pulmonary nodule on axial image 91 measures 0.4 cm, unchanged. PLEURA: The pleural spaces are clear.HEART AND MEDIASTINUM: The visualized thyroid gland is normal. No significant mediastinal, hilar, or axillary lymphadenopathy. Calcification of aortic valve and annulus. Marked calcification of the coronary arteries. Marked calcification of the descending thoracic aorta. HEPATOBILIARY: The liver is decreased in attenuation. A calcified granuloma in segment II measures 0.3 cm. No focal hepatic lesions. Stones in the gallbladder neck. No biliary distention or wall thickening. No biliary ductal dilatation.SPLEEN: No splenomegaly.PANCREAS: No focal masses or ductal dilatation. ADRENALS: No adrenal nodules.KIDNEYS/URETERS: Prior left nephrectomy. No right-sided hydronephrosis, or exophytic mass. A right lower pole nonobstructing renal stone measures 0.5 cm. PELVIC ORGANS/BLADDER: The prostate is markedly enlarged. PERITONEUM/RETROPERITONEUM: No free air or fluid.LYMPH NODES: No lymphadenopathy.VESSELS: Marked calcification of the abdominopelvic vasculature. An infrarenal abdominal aortic interest measures 3.6 cm in diameter. GI TRACT: No distention or wall thickening. The appendix is normal. BONES AND SOFT TISSUES: A nonaggressive appearing lucency in the left anterior third rib on axial image 42 is similar to examinations dating back to 07/24/2018. Prior surgical removal of the mass in the right iliac weighing with open reduction and internal fixation. Moderate degenerative facet changes of the lumbar spine. IMPRESSION: 1.This examination is unchanged from the prior examination. No recurrent or metastatic disease in the chest, abdomen, or pelvis. 2.The groundglass, interstitial, and streaky opacities of the lung bases are unchanged and most likely a combination of scar and atelectasis. This was first seen on 01/05/2020 and is essentially unchanged or decreased compared to 05/13/2020. 3.Diffuse fatty infiltration of the liver 4.Cholelithiasis without acute cholecystitis 5.An abdominal aortic aneurysm measures 3.6 cm in diameter. A follow-up examination is recommended every 2 years. Signed: Maria Elena Borrero Verified Date/Time: 06/09/2021 11:04:17 Reading Location: [facility] C013X Ortho Consult Reading Room CT, [id number] 11:04:00Restaging RCC stage IVUnlisted Reason for Exam - Click Yes and Enter Reason Below->YesUnlisted Reason for Exam- >Clear cell renal cell carcinoma, leftIs this for enterography?->NoWill this procedure require oral contrast?->No [facility] : 1950 Sex: MFINAL REPORT TECHNIQUE: CT of the chest, abdomen, and pelvis WITHOUT intravenous contrast and WITHOUT oral contrast. Dose modulation, iterative reconstruction, and/or weight-based adjustment of the mA/kV was utilized to reduce the radiation dose to as low as reasonably achievable. INDICATION: Unlisted Reason for ExamClear cell renal cell carcinoma, left. COMPARISON: CTs dating back to 07/24/2018. FINDINGS: ABSENCE OF INTRAVENOUS CONTRAST DECREASES SENSITIVITY FOR DETECTION OF FOCAL LESIONS AND VASCULAR PATHOLOGY. LINES/TUBES: A right chest port has its tip in the lower SVC. Loop recorder in the subcutaneous tissues of the anterior chest. LUNGS AND AIRWAYS: A few scattered calcified granuloma is measure up to 0.4 cm. The interstitial, streaky, and groundglass opacities of the bilateral lower lungs are most likely due to a combination of scar and atelectasis. A right lower lobe pulmonary nodule on axial image 91 measures 0.4 cm, unchanged. PLEURA: The pleural spaces are clear.HEART AND MEDIASTINUM: The visualized thyroid gland is normal. No significant mediastinal, hilar, or axillary lymphadenopathy. Calcification of aortic valve and annulus. Marked calcification of the coronary arteries. Marked calcification of the descending thoracic aorta. HEPATOBILIARY: The liver is decreased in attenuation. A calcified granuloma in segment II measures 0.3 cm. No focal hepatic lesions. Stones in the gallbladder neck. No biliary distention or wall thickening. No biliary ductal dilatation.SPLEEN: No splenomegaly.PANCREAS: No focal masses or ductal dilatation. ADRENALS: No adrenal nodules.KIDNEYS/URETERS: Prior left nephrectomy. No right-sided hydronephrosis, or exophytic mass. A right lower pole nonobstructing renal stone measures 0.5 cm. PELVIC ORGANS/BLADDER: The prostate is markedly enlarged. PERITONEUM/RETROPERITONEUM: No free air or fluid.LYMPH NODES: No lymphadenopathy.VESSELS: Marked calcification of the abdominopelvic vasculature. An infrarenal abdominal aortic interest measures 3.6 cm in diameter. GI TRACT: No distention or wall thickening. The appendix is normal. BONES AND SOFT TISSUES: A nonaggressive appearing lucency in the left anterior third rib on axial image 42 is similar to examinations dating back to 07/24/2018. Prior surgical removal of the mass in the right iliac weighing with open reduction and internal fixation. Moderate degenerative facet changes of the lumbar spine. IMPRESSION: 1.This examination is unchanged from the prior examination. No recurrent or metastatic disease in the chest, abdomen, or pelvis. 2.The groundglass, interstitial, and streaky opacities of the lung bases are unchanged and most likely a combination of scar and atelectasis. This was first seen on 01/05/2020 and is essentially unchanged or decreased compared to 05/13/2020. 3.Diffuse fatty infiltration of the liver 4.Cholelithiasis without acute cholecystitis 5.An abdominal aortic aneurysm measures 3.6 cm in diameter. A follow-up examination is recommended every 2 years. Signed: Maria Elena Borrero Verified Date/Time: 06/09/2021 11:04:17 Reading Location: [facility] C013X [facility] Consult Reading Room CT, CHEST, WITHOUT IV [id number] 11:23:00Unlisted Reason for Exam - Click Yes and Enter Reason Below->YesUnlisted Reason for Exam->Clear cell renal cell carcinoma, [facility] : 1950 Sex: MFINAL REPORT CT of the chest, abdomen and pelvis, without contrast Clinical History: Unlisted Reason for ExamClear cell renal cell carcinoma, left Technique: CT of the chest, abdomen and pelvis is performed with intravenous contrast administration. This exam was performed according to our departmental dose optimization program which includes automated exposure control, adjustment ofthe mA and/or kV according to patient's size and/or use of iterative reconstructive technique. Comparison Film: October 28, 2020 and August 09, 2020 Discussion: Visualized thyroid gland is normal. There is a right-sided Port-A-Cath. No supraclavicular, axillary, mediastinal or hilar lymphadenopathy. Heart and pericardium are unremarkable. Small foci of groundglass opacities and septal thickening in the lower lungs appear grossly unchanged compared to August 09, 2020. Previously seen new airspace opacitiesin left lower lobe on the October 29, 2019 study has essentially resolved. No effusion. No bronchiectasis, or bronchial wall thickening. No liver mass is identified on this noncontrast exam. No ductal dilatation. There is a small polyp versus stone/ sludge within the gallbladder, measuring 5 mm. Spleen, pancreas, and adrenal glands are normal. Status post left nephrectomy. The right kidney contains a 4 mm nonobstructive stone. No hydronephrosis, or contour deforming lesion. No bowel obstruction, or abnormal bowel wall thickening. In the pelvis, bladder is unremarkable. Prostate gland is enlarged. Thereis a small fat-containing right inguinal hernia. Abdominal aorta is aneurysmal, measuring 3.4 cm. There is no ascites, free air, or adenopathy. Status post surgical fixation and cement placement of theright iliac crest. Bony structures demonstrate degenerative changes. No suspicious bony lesion is identified. Impression: Stable exam, no recurrent, or metastatic disease is identified in the chest, abdomen or pelvis. Nonspecific groundglass opacities and septal thickening in both lower lungs are not significantly changed compared to July,, previously seen new left lower lobe airspace opacitieson the October, exam have essentially resolved. 4 mm nonobstructive stone in the right kidney. Enlarged prostate gland. 5 mm polyps versus stones or sludge in the gallbladder. Signed: Karan Fregoso Verified Date/Time: 02/03/2021 11:23:50 Reading Location: [address] Ortho Consult Reading Room E lectronically signed by: KARAN FREGOSO M.D. on 02/03/2021 11:23 AMCT, ABDOMEN 2021-02-03 11:23:00Unlisted Reason for Exam - Click Yes and Enter Reason Below- >YesUnlisted Reason for Exam->Clear cell renal cell carcinoma, leftWill this procedure require oral contrast?->No [facility] : 1950 Sex: MFINAL REPORT CT of the chest, abdomen and pelvis, without contrast Clinical History: Unlisted Reason for ExamClear cell renal cell carcinoma, left Technique: CT of the chest, abdomen and pelvis is performed with intravenous contrast administration. This exam was performed according to our departmental dose optimization program which includes automated exposure control, adjustment ofthe mA and/or kV according to patient's size and/or use of iterative reconstructive technique. Comparison Film: October 28, 2020 and August 09, 2020 Discussion: Visualized thyroid gland is normal. There is a right-sided Port-A-Cath. No supraclavicular, axillary, mediastinal or hilar lymphadenopathy. Heart and pericardium are unremarkable. Small foci of groundglass opacities and septal thickening in the lower lungs appear grossly unchanged compared to August 09, 2020. Previously seen new airspace opacitiesin left lower lobe on the October 29, 2019 study has essentially resolved. No effusion. No bronchiectasis, or bronchial wall thickening. No liver mass is identified on this noncontrast exam. No ductal dilatation. There is a small polyp versus stone/ sludge within the gallbladder, measuring 5 mm. Spleen, pancreas, and adrenal glands are normal. Status post left nephrectomy. The right kidney contains a 4 mm nonobstructive stone. No hydronephrosis, or contour deforming lesion. No bowel obstruction, or abnormal bowel wall thickening. In the pelvis, bladder is unremarkable. Prostate gland is enlarged. Thereis a small fat-containing right inguinal hernia. Abdominal aorta is aneurysmal, measuring 3.4 cm. There is no ascites, free air, or adenopathy. Status post surgical fixation and cement placement of theright iliac crest. Bony structures demonstrate degenerative changes. No suspicious bony lesion is identified. Impression: Stable exam, no recurrent, or metastatic disease is identified in the chest, abdomen or pelvis. Nonspecific groundglass opacities and septal thickening in both lower lungs are not significantly changed compared to July,, previously seen new left lower lobe airspace opacitieson the October, exam have essentially resolved. 4 mm nonobstructive stone in the right kidney. Enlarged prostate gland. 5 mm polyps versus stones or sludge in the gallbladder. Signed: Karan Fregoso Verified Date/Time: 02/03/2021 11:23:50 Reading Location: [facility] C013X Ortho Consult Reading Room E lectronically signed by: KARAN FREGOSO M.D. on 02/03/2021 11:23 AMCT, CHEST, WITHOUT IV [id number] 16:41:00Unlisted Reason for Exam - Click Yes and Enter Reason Below->YesUnlisted Reason for Exam->C64.2 [facility] : 1950 Sex: MAddendum BeginsREPORT STATUS:A An abdominal aortic aneurysm measures 3.4 cm in diameter. A follow-up examination is recommended every 3 years. Signed: Karan Fregoso Verified Date/Time: 10/28/2020 16:41:00 Reading Location: [address] Ortho Consult Reading RoomAddendum EndsFINAL REPORT CT of the chest, abdomen and pelvis, without contrast Clinical History:Unlisted Reason for ExamC64.2 Technique: CT of the chest, abdomen and pelvis is performed without intravenous contrast administration. This exam was performed according to our departmental dose optimization program which includes automated exposure control, adjustment of the mA and/or kV according to patient's size and/or use of iterative reconstructive technique. Comparison Film: August 09, 2020 and May 13, 2020 Discussion: There is a right-sided Port-A-Cath. The thyroid gland is normal. No subclavicular, axillary, mediastinal or hilar lymphadenopathy. Heart and pericardium are unremarkable. There are small scattered foci of airspace opacities in the lower lobes, and lingula, primarily groundglass; findings are progressed in the left lower lobe and grossly unchanged in the right lower lobe. There is no effusion. Central airways are patent. No liver lesion is identified noncontrast exam. No biliary ductal dilatation, gallbladder is normal. The spleen, pancreas, and adrenal glands are not normal. Status post left nephrectomy. In the right kidney, there is a nonobstructive 4 mm stone. No contour deforming lesion. No evidence of bowel obstruction, or abnormal bowel wall thickening. No pericecal inflammatory change. In the pelvis, bladder is unremarkable. Prostate gland is enlarged. The abdominal aorta is mildly aneurysmal, measuring 3.4 cm. No ascites, free air or adenopathy. Bony structures and the straight degenerative change. Status post surgical fixation of the right iliac crest. No suspicious bony lesion is identified. Impression: Progression of groundglass opacities in the left lower lobe. No new disease identified in the abdomen or pelvis. 4 mm nonobstructive stone in the right kidney. Enlarged prostate gland. Signed: Karan Fregoso Verified Date/Time: 10/28/2020 16:32:20 Reading Location: [address] Consult Reading Room CT, [id number] 16:41:00Unlisted Reason for Exam - Click Yes and Enter Reason Below->YesUnlisted Reason for Exam->C64.2Will this procedure require oral contrast?->No [facility] : 1950 Sex: MAddendum BeginsREPORT STATUS:A An abdominal aortic aneurysm measures 3.4 cm in diameter. A follow-up examination is recommended every 3 years. Signed: Karan Fregoso Verified Date/Time: 10/28/2020 16:41:00 Reading Location: [address] Ortho Consult Reading RoomAddendum EndsFINAL REPORT CT of the chest, abdomen and pelvis, without contrast Clinical History:Unlisted Reason for ExamC64.2 Technique: CT of the chest, abdomen and pelvis is performed without intravenous contrast administration. This exam was performed according to our departmental dose optimization program which includes automated exposure control, adjustment of the mA and/or kV according to patient's size and/or use of iterative reconstructive technique. Comparison Film: August 09, 2020 and May 13, 2020 Discussion: There is a right-sided Port-A-Cath. The thyroid gland is normal. No subclavicular, axillary, mediastinal or hilar lymphadenopathy. Heart and pericardium are unremarkable. There are small scattered foci of airspace opacities in the lower lobes, and lingula, primarily groundglass; findings are progressed in the left lower lobe and grossly unchanged in the right lower lobe. There is no effusion. Central airways are patent. No liver lesion is identified noncontrast exam. No biliary ductal dilatation, gallbladder is normal. The spleen, pancreas, and adrenal glands are not normal. Status post left nephrectomy. In the right kidney, there is a nonobstructive 4 mm stone. No contour deforming lesion. No evidence of bowel obstruction, or abnormal bowel wall thickening. No pericecal inflammatory change. In the pelvis, bladder is unremarkable. Prostate gland is enlarged. The abdominal aorta is mildly aneurysmal, measuring 3.4 cm. No ascites, free air or adenopathy. Bony structures and the straight degenerative change. Status post surgical fixation of the right iliac crest. No suspicious bony lesion is identified. Impression: Progression of groundglass opacities in the left lower lobe. No new disease identified in the abdomen or pelvis. 4 mm nonobstructive stone in the right kidney. Enlarged prostate gland. Signed: Karan Fregoso MDReport Verified Date/Time: 10/28/2020 16:32:20 Reading Location: [address] Consult Reading Room CT, CHEST, WITHOUT IV [id number] 08:53:00Unlisted Reason for Exam - Click Yes and Enter Reason Below->YesUnlisted Reason for Exam->clear cell renal cell carcinoma [facility] : 1950 Sex: MFINAL REPORT CT of the chest, without contrast Clinical History: Unlisted Reason for Examclear cell renal cell carcinoma Technique: CT of the chest is performed without intravenous contrast administration. This exam was performed according to our departmental dose optimization program which includes automated exposure control, adjustment of the mA and/or kV according to patient's size and/or use of iterative reconstructive technique. Comparison Film: May 13, 2020 and January 05, 2020 Discussion: There is a right-sided Port-A-Cath. Visualized thyroid gland is normal. No supraclavicular, axillary, mediastinal or hilar lymphadenopathy. Heart and pericardium are unremarkable. Previously seen small foci of airspace opacities in the left lung have significantly decreased, a few small areas of groundglass opacities in the right lung are unchanged. No new mass or consolidation. Nopleural effusion. Central airways are patent, no significant bronchiectasis or bronchial wall thickening. There is a calcified granuloma in the left hepatic lobe. No new liver mass is identified on this noncontrast exam. No biliary ductal dilatation, gallbladder is normal. The spleen, pancreas, and adrenal glands are normal. Patient is status post left nephrectomy. There is a 4 mm nonobstructive stone within the right kidney. No hydronephrosis. No contour deforming lesion on the right. No evidence of bowel obstruction, or abnormal bowel wall thickening. Normal appendix. In the pelvis, bladder is unremarkable. Prostate gland is enlarged. There is a small fat-containing right inguinal hernia. Bony structures demonstrate degenerative changes. Status post right hip arthroplasty, and surgical fixationof the right iliac crest. No suspicious bony lesion. A loop recorder is present in the chest wall. Impression: Markedly improved airspace opacity in the left lung, grossly unchanged scattered groundglass opacities in the right lung, favor an infectious or inflammatory process. No new disease identified in abdomen or pelvis. Enlarged prostate gland. 4 mm nonobstructive stone in the right kidney. Signed: Karan Fregoso Verified Date/Time: 08/10/2020 08:53:56 Reading Location: [address] Consult Reading Room CT, SOFT TISSUE NECK, WITHOUT IV [id number] 15:18:00Unlisted Reason for Exam - Click Yes and Enter Reason Below->YesUnlisted Reason for Exam->clear cell renal cell carcinoma, localized swelling mass and lump neck [facility] 1950 Sex: MFINAL REPORT EXAM: CT SOFT TISSUE NECK WITHOUT CONTRAST History: 70-year-old male presenting with a neck mass. History of clear-cell renal cell carcinoma. Comparison studies: Neck CT 02/26/2020. Technique: Axial, coronal and sagittal images from the skull base to the thoracic inlet.Coronal and sagittal images reconstructed from the axial data.Dose modulation, iterative reconstruction, and/or weight based adjustment of the mA/kV was utilized to reduce the radiation dose to as low asreasonably achievable. Intravenous contrast: None. Findings: Lines: A right-sided Mediport is seen with the tip terminating below the [id number]. Airway: Patent. Soft tissues/Masses: None. Lymph nodes: There are prominent but not pathologically enlarged, necrotic or calcified cervical lymph nodes. There are two 1.0 cm right paratracheal lymph nodes seen on axial postcontrast series (images 74 and 81), which were present on the prior CT from 02/26/2020. Vessels: Arteries and veins are patent. Ather osclerotic calcifications in the bilateral carotid bulbs and carotid siphons. Glands: The bilateral parotid, submandibular, and thyroid glands are unremarkable. Orbits: No abnormalities.Paranasal sinuses: Clear.Temporal bones: No abnormalities.Skull base and facial bones: Intact. Cervical spine: Mild d egenerative changes at the atlantoaxial interval and at C4-C5. There is posterior osteophytic ridging at C3-C4. No osseous lytic/blastic lesions identified. IMPRESSION: No soft tissue mass or concerning cervical lymphadenopathy. The images and draft report by Dr. Jose Becerra, neuroradiology fellow, were reviewed and signed by Dr. Jo Hodges, neuroradiology faculty, on 08/09/2020 at 1518 hours.Signed: Jo Hodges MDReport Verified Date/Time: 08/09/2020 15:18:28 MR, BRAIN, WITHOUT IV [id number] 11:58:00Hx metastatic renal cell carcinoma, Assess for resolution of diffusion restriction seen on MRI 01/2020, rule out metsUnlisted Reason for Exam - Click Yes and Enter Reason Below->YesUnlisted Reason for Exam->Clear cell renal cell carcinoma, [facility] : 1950 Sex: MFINAL REPORT History: Clear cell renal cell carcinoma, history of cardioembolic CVA, assess for resolution of diffusion restriction seen on MRI of 01/2020, rule out metastases. Comparison studies: Multiple prior brain MRIs and head CTs which date to 09/13/2019, most recent brain MRI of 02/26/2020. Technique: Sagittal and axial T2, axial and coronal T2 FLAIR, axial DWI and axial SWI.Intravenous contrast: None Findings: Please note, evaluation for metastatic disease is somewhat limited by the absence of IV contrast. Scalp: Normal in signal. No masses.Bone marrow: Normal in signal intensity. Brain sulci: Moderately prominentVentricles: Moderate compensatory dilatation. No hydrocephalus.Extra axial spaces: No mass, no fluid collection. Parenchyma:No mass, acute hemorrhage or acute ischemia. No abnormal restricted diffusion. Restricted diffusion related to previous infarct which wereacute in the left medial temporal lobe and along the superior margin of the left choroidal fissure and faint faint restricted diffusion in the left inferior parietal white matter as seen on the 02/26/2020 MRI have resolved. Scattered and mildly confluent T2 FLAIR hyperintense foci in the supratentorial white matter nonspecific but are most compatible with chronic microvascular ischemic changes. Chronic lacunar infarcts in the deep left frontal centrum semiovale are unchanged. There is moderate generalized brain volume loss as well as chronic asymmetric left hippocampal volume loss with dilatation of the ipsilateral choroidal fissure and temporal horn of the lateral ventricle are unchanged. Suprasellar region: No abnormalities.Craniocervical junction: Patent foramen magnum. No Chiari malformation.Vessels: Calcified atherosclerosis in the carotid siphons and intradural vertebral arteries . Flow-voids in the major intracranial arteries and dural venous sinuses are otherwise maintained. Incidental findings:Mild T2 hyperintense reactive mucosal thickening in the bilateral mastoids.Chronic posteriorleft ethmoid T2 hyperintense because of thickening and secretions. IMPRESSION: 1.No acute ischemia. Restricted diffusion related to small, now chronic, infarcts in the temporal and inferior parietal white matter as seen on the prior 02/26/2020 brain MRI have resolved.2.No evidence of intracranial or ca lvarial metastatic disease on this noncontrast exam.3.No other changes from the prior brain MRI 02/26/2020.4.Unchanged joint strength, volume loss, chronic microvascular ischemic changes, left frontal lacunar infarcts in nonspecific asymmetric left hippocampal atrophy. Signed: Alexis Rick MDReport Verified Date/Time: 05/17/2020 11:58:07 Reading Location: [facility] Reading Room [address] [place] [address] CT, [id number] 16:49:00Restaging RCCUnlisted Reason for Exam - Click Yes and Enter Reason Below->YesUnlisted Reason for Exam->Clear cell renal cell carcinoma, leftWill this procedure require oral contrast?->No [facility] : 1950 Sex: MFINAL REPORT CT of the chest, abdomen and pelvis, without contrast Clinical History: Unlisted Reason for ExamClear cell renal cell carcinoma, left Technique: CT of the chest, abdomen and pelvis is performed without intravenous contrast administration. This exam was performed according to our departmental dose optimization program which includes automated exposure control, adjustment of the mA and/or kV according to patient's size and/or use of iterative reconstructive technique. Comparison Film: January 05, 2020 and October 16, 2019 Discussion: There is a right-sided Port-A-Cath. Nosupraclavicular, axillary, or hilar adenopathy. A few small nonspecific mediastinal lymph nodes are unchanged. Heart and pericardium are unremarkable. There are patchy groundglass opacities in both lungs, increased since the prior exam, and left greater than right no new mass. No pleural effusion. Central airways are patent, no significant bronchiectasis, or bronchial wall thickening. No liver lesionis identified on this noncontrast exam. No biliary ductal dilatation, gallbladder is normal. The spleen, pancreas, adrenal glands are normal. Status post left nephrectomy. There is a 4 mm nonobstructive stone in the right kidney. No hydronephrosis or contour deforming lesion. No evidence of bowel obstruction, or abnormal bowel wall thickening. In the pelvis, bladder is unremarkable. Prostate gland isenlarged. There is a small fat-containing right inguinal hernia. There is moderate vascular calcification and a 3.5 cm aneurysm of the infrarenal abdominal aorta. No ascites or adenopathy. Stable postoperative change at the right iliac crest. Bony structures demonstrate degenerative changes. No destructive bony lesion is slightly identified. There is a loop recorder in the chest wall. Impression: Interval progression of multifocal groundglass opacities in both lungs, which may reflect atypical infection, aspiration, or pneumonitis/drug reaction. No disease progression in the abdomen or pelvis. Enlarged prostate gland and 4 mm stone in the right kidney. Signed: Karan Fregoso Verified Date/Time: 05/13/2020 16:49:29 Reading Location: [address] Consult Reading Room CT, CHEST, WITHOUT IV [id number] 16:49:00Restaging RCCUnlisted Reason for Exam - Click Yes and Enter Reason Below->YesUnlisted Reason for Exam->Clear cell renal cell carcinoma, left [facility] : 1950 Sex: MFINAL REPORT CT of the chest, abdomen and pelvis, without contrast Clinical History: Unlisted Reason for ExamClear cell renal cell carcinoma, left Technique: CT of the chest, abdomen and pelvis is performed without intravenous contrast administration. This exam was performed according to our departmental dose optimization program which includes automated exposure control, adjustment of the mA and/or kV according to patient's size and/or use of iterative reconstructive technique. Comparison Film: January 05, 2020 and October 16, 2019 Discussion: There is a right-sided Port-A-Cath. Nosupraclavicular, axillary, or hilar adenopathy. A few small nonspecific mediastinal lymph nodes are unchanged. Heart and pericardium are unremarkable. There are patchy groundglass opacities in both lungs, increased since the prior exam, and left greater than right no new mass. No pleural effusion. Central airways are patent, no significant bronchiectasis, or bronchial wall thickening. No liver lesionis identified on this noncontrast exam. No biliary ductal dilatation, gallbladder is normal. The spleen, pancreas, adrenal glands are normal. Status post left nephrectomy. There is a 4 mm nonobstructive stone in the right kidney. No hydronephrosis or contour deforming lesion. No evidence of bowel obstruction, or abnormal bowel wall thickening. In the pelvis, bladder is unremarkable. Prostate gland isenlarged. There is a small fat-containing right inguinal hernia. There is moderate vascular calcification and a 3.5 cm aneurysm of the infrarenal abdominal aorta. No ascites or adenopathy. Stable postoperative change at the right iliac crest. Bony structures demonstrate degenerative changes. No destructive bony lesion is slightly identified. There is a loop recorder in the chest wall. Impression: Interval progression of multifocal groundglass opacities in both lungs, which may reflect atypical infection, aspiration, or pneumonitis/drug reaction. No disease progression in the abdomen or pelvis. Enlarged prostate gland and 4 mm stone in the right kidney. Signed: Karan Fregoso Verified Date/Time: 05/13/2020 16:49:29 Reading Location: [address] Consult Reading Room POCT-GLUCOSE [id number] 13:18:00 Test Item Value Reference Range Interpretation Comments POC-GLUCOSE METER 252 mg/dL 70-110 H : TESTED A T [facility] 6720 ([employer]) (test code = [place], 1538) [address]: Infantry Assaultman/Techni daniel ID = [id number] for MAGDA OCATS BASIC METABOLIC [id number] 07:25:00 Test Item Value Reference Range Interpretation [...] S NOT APPLICABLE FOR DIALYSIS PATIEN TS. Infantry Assaultman ID - SINDHU MCBC W/PLT COUNT & AUTO [id number] 06:52:00 Test Item Value Reference Range Interpretation [...] PERCENT (BEAKER) (test code = 2801) POCT-GLUCOSE [id number] 21:47:00 Test Item Value Reference Range Interpretation Comments POC-GLUCOSE METER 231 mg/dL 70-110 H : Notified RN/MD: ([facility]) (test code = TESTED AT [place] [address] 1538) [facility] [address]: Infantry Assaultman/Techni daniel ID = [id number] for [place], FORTUNATO ICE POCT-GLUCOSE [id number] 18:06:00 Test Item Value Reference Range Interpretation Comments POC-GLUCOSE METER 172 mg/dL 70-110 H : TESTED A T [facility] 67 ([facility]) (test code = [facility] García [facility], 153) [address]: Infantry Assaultman/Techni daniel ID = [id number] for Na francescai Rupesh BASIC METABOLIC [id number] 06:48:00 Test Item Value Reference Range Interpretation [...] S NOT APPLICABLE FOR DIALYSIS PATIEN TS. Infantry Assaultman ID - EDASICBC W/PLT COUNT & AUTO [id number] 06:21:00 Test Item Value Reference Range Interpretation [...] PERCENT (BEAKER) (test code = 2801) POCT-GLUCOSE [id number] 21:44:00 Test Item Value Reference Range Interpretation Comments POC-GLUCOSE METER 197 mg/dL 70-110 H : TESTED A T [facility] 6720 (BEAKER) (test code = YU García [facility], 1538) [address]: Infantry Assaultman/Techni daniel ID = [id number] for LUIZA CID SARS-COV2/RT-PCR ([facility])2020-02-28 17:28:00 Test Item Value Reference Range Interpretation Comments SARS-COV2/RT-PCR (test Negative Not Detected, Negative, code = 2640270) See external report for linked test SARS-COV-2 PERFORMING LAB [facility] BEENA (test code = 2594522) Negative result for this test determines that [...] individuals suspected of COVID-19 by their healthcare provider.This test [...] justifying the authorization of the emergency use ofin vitro diagnostic tests for detection and/or diagnosis of COVID-19 is terminated under Section 564(b)(2) of the Act or the EUA is revoked under Section 564(g) of the Act.Testing was performed using the Taylor SARS-CoV-2 assay.Fact Sheet for Healthcare Providers:https://www.[employer].taylor/fabio/RT_SAR M-UdK-6_NXM_Kssl_Tnxli_95-223595.pdfFact Sheet for Healthcare Patients:https://www.[employer].taylor/s al/MC_KRZA-DcV-3_Oirzvwb_Uwfj_Svqle_TS_00-350214X2.pdfPerforming Laboratory:[address] [address] BASIC METABOLIC [id number] 06:06:00 Test Item Value Reference Range Interpretation [...] S NOT APPLICABLE FOR DIALYSIS PATIEN TS. Infantry Assaultman ID - EDASICBC W/PLT COUNT & AUTO [id number] 04:45:00 Test Item Value Reference Range Interpretation [...] PERCENT (BEAKER) (test code = 2801) POCT-GLUCOSE [id number] 22:38:00 Test Item Value Reference Range Interpretation Comments POC-GLUCOSE METER 176 mg/dL 70-110 H : TESTED A T [facility] 6720 (BEAKER) (test code = [place], 1538) [address]: Infantry Assaultman/Techni daniel ID = [id number] for LUIZA CID HEMOGLOBIN [id number] 08:25:00 Test Item Value Reference Range Interpretation Comments HEMOGLOBIN A1C (BEAKER) (test code = 6.4 % 4.3-6.1 H 368) FastingTSH/FREE T4 IF [id number] 07:15:00 Test Item Value Reference Range Interpretation Comments THYROID STIMULATING HORMONE 1.445 uIU/mL 0.350-4.940 (BEAKER) (test code = 772) Infantry Assaultman ID - EDASIVITAMIN B12 AND [id number] 07:15:00 Test Item Value Reference Range Interpretation Comments VITAMIN B12 (BEAKER) (test code = 283 pg/mL 213-816 774) FOLATE (BEAKER) (test code = 362) 8.00 ng/mL >=7.00 Infantry Assaultman ID - EDASIBASIC METABOLIC [id number] 06:51:00 Test Item Value Reference Range Interpretation [...] S NOT APPLICABLE FOR DIALYSIS PATIEN TS. Infantry Assaultman ID - SINDHU [id number] 06:51:00 Test Item Value Reference Range Interpretation Comments MAGNESIUM (BEAKER) (test code = 1.7 mg/dL 1.6-2.6 627) Infantry Assaultman ID - SINDHU [id number] 06:51:00 Test Item Value Reference Range Interpretation Comments PHOSPHORUS (BEAKER) (test code = 3.6 mg/dL 2.3-4.7 604) Infantry Assaultman ID - SINDHU MLIPID [id number] 06:51:00 Test Item Value Reference Range Interpretation Comments TRIGLYCERIDES (BEAKER) (test code = 169 mg/dL 540) CHOLESTEROL (BEAKER) (test code = 85 mg/dL 631) HDL CHOLESTEROL (BEAKER) (test code 16 mg/dL = 976) LDL CHOLESTEROL CALCULATED (BEAKER) 35 mg/dL (test code = 633) Triglyceride Reference Range: Low Risk <150 Borderline 150-199 High Risk 200- 499 Very High Risk >=500Cholesterol Reference Range: Low Risk <200 Borderline 200-239 High Risk >240HDL Cholesterol Reference Range: Low Risk >=60 High Risk <40LDL Cholesterol Reference Range: Optimal <100 Near Optimal 100-129 Borderline 130-159 High 160-189 Very High >=190 Infantry Assaultman ID - SINDHU MHEPATIC FUNCTION [id number] 06:51:00 Test Item Value Reference Range Interpretation [...] (test code = 18 U/L 6-55 347) Infantry Assaultman ID - SINDHU MCBC W/PLT COUNT & AUTO [id number] 06:17:00 Test Item Value Reference Range Interpretation [...] PERCENT (BEAKER) (test code = 2801) POCT-GLUCOSE [id number] 21:38:00 Test Item Value Reference Range Interpretation Comments POC-GLUCOSE METER 159 mg/dL 70-110 H : Notified RN/MD: (SHANEKA) (test code = TESTED AT [facility] 6720 1538) [facility], [address]: Infantry Assaultman/Techni daniel ID = [id number] for KARINFORTUNATO FLORES LINWOOD MR, BRAIN, WITHOUT [id number] 19:25:00Unlisted Reason for Exam - Click Yes and Enter Reason Below->No Deos the patient have an implanted electronic device?->NoWE[facility] : 1950 Sex: MFINAL REPORT MR, BRAIN, [...] ex vacuo dilatation of the ventricular system proportionateto sulci. Small focus of encephalomalacia in the [...] and left occipital lobe. Signed: Gloria Chavez MDRepsaint [facility] Verified Date/Time: 02/26/2020 19:25:47 URINALYSIS WITH MICROSCOPIC IF INDICATED 2020-02-26 15:04:00 Test Item Value Reference Range Interpretation [...] 0.2-1.0 = 463) SOURCE(BEAKER) (test code = 1523) [id number] 11:46:00 Test Item Value Reference Range Interpretation [...] for patients with mechanical heart valves.CT, CAROTID, [id number] 11:44:00 Reason for exam:->vision lossWhat is the patient's sedation requirement?- >No SedationWESTSIDE [facility]: [facility] : 1950 Sex: MFINAL REPORT EXAMINATION: CT angiogram of the [place] and neck with contrast CLINICAL [...] as reasonably achievable. CT ANGIOGRAM OF THE [place] FINDINGS:Prominent calcifiedatherosclerotic plaque in the bilateral cavernous ICAs with mild to moderate stenoses.Otherwise the internal carotid artery segments as well as the middle cerebral and anterior cerebral arteries are normal in caliber. The vertebro-basilar circulation is normal. No vascular malformation or aneurysmal dilatation is seen.The draining venous structures are normal and patent. Anatomic variation:Anterior Co mmunicating Artery: PatentPosterior Communicating Arteries: Not well visualizedVertebral [...] The origin of the right vertebral and bilateralbilateral common carotid arteries is patent. Mixed, soft and calcified atherosclerotic plaque in thebilateral carotid bulbs results in mild stenoses (less than 50%) per NASCET criteria. Right Carotid A rtery:The common carotid, internal and external carotid arteries at the level of the neck are normalin caliber, and patent, no evidence of stenoses. Left carotid artery:The common carotid, internal and external carotid arteries at the level of the neck are normal in caliber, and patent, no evidence of stenoses. Vertebral Arteries:Calcified atherosclerotic plaque of the left intracranial vertebral artery without significant stenoses. Mixed, soft and calcified plaque in the right intracranial vertebral artery at the level of the foramen magnum results in moderate stenoses. Otherwise both vertebral arteries are normal in morphology and caliber. The left is dominant.. IMPRESSION: 1.No large vessel occ lusion. 2.Atherosclerotic plaque in the bilateral carotid bulbs result in mild stenosis (less than 50%). 3.Atherosclerotic calcification of the bilateral cavernous ICAs, with mild to moderate stenoses.4.Atherosclerotic plaque in the bilateral intracranial vertebral arteries as above. Signed: Rolando Atwood MDReport Verified Date/Time: 02/26/2020 11:44:58 Reading Location: [facility] Room [address] [place] [address] . [facility] [id number] 11:44:00Reason for exam:->Symptom onset less than 6 hours and NIHSS 6 or greater [facility] CENTERName: SHIVAM SYKES : 1950 Sex: MFINAL REPORT EXAMINATION: CT angiogram of the [place] and neck with contrast CLINICAL HISTORY: 70-year-old male with subacute neurologic deficit, right arm weakness.COMPARISON: None availableTECHNIQUE: The head and neck were scanned utilizing a multidetector helical scannerfrom the thoracic inlet to the vertex after [...] mA/kV was utilized to reduce the radiation doseto as low as reasonably achievable. CT ANGIOGRAM OF THE [place] FINDINGS:Prominent calcified atherosclerotic plaque in the bilateral cavernous ICAs with mild to moderate stenoses.Otherwise theinternal carotid artery segments as well as the middle cerebral and anterior cerebral arteries are normal in caliber. The vertebro-basilar circulation is normal. No vascular malformation or aneurysmal dilatation is seen.The draining venous structures are normal and patent. Anatomic variation:Anterior C ommunicating Artery: PatentPosterior Communicating Arteries: Not well visualizedVertebral arteries: The left is dominantAccessory anterior cerebral artery. CT ANGIOGRAM OF THE NECK FINDINGS:If present,stenosis of the carotid bulbs is measured based [...] (less than 50%) per NASCET criteria. Right CarotidArtery:The common carotid, internal and external carotid arteries at the level of the neck are normal in caliber, and patent, no evidence of stenoses. Left carotid artery:The common carotid, internal and external carotid arteries at the level of the neck are normal in caliber, and patent, no evidence of stenoses. Vertebral Arteries:Calcified [...] MDReport Verified Date/Time: 02/26/2020 11:44:58 Reading Location: [facility] Reading Room [address] [place] [address] POCT-GLUCOSE [id number] 11:39:00 Test Item Value Reference Range Interpretation Comments POC-GLUCOSE METER 116 mg/dL 70-110 H : TESTED A T [facility] 7200 (BEAKER) (test code [place] [address], = 1538) [place] [address] 0: Infantry Assaultman/Techni daniel ID = [id number] for BRII LEROY BASIC METABOLIC [id number] 11:35:00 Test Item Value Reference Range Interpretation [...] S NOT APPLICABLE FOR DIALYSIS PATIEN TS. [id number] 11:35:00 Test Item Value Reference Range Interpretation Comments MAGNESIUM (BEAKER) 1.7 mg/dL 1.6-2.6 Specimen moderately (test code = 627) hemolyzed TROPONIN [id number] 11:35:00 Test Item Value Reference Range Interpretation [...] = 700) CBC W/PLT COUNT & AUTO [id number] 11:35:00 Test Item Value Reference Range Interpretation [...] 0-1 PERCENT (BEAKER) (test code = 2801) RAD, CHEST, 1 VIEW, NON [id number] 11:31:00Reason for exam:->muscle weaknessWESTSIDE [facility]Name: SHIVAM SYKES DOB: 1950 Sex: MFINAL REPORT RAD, CHEST, 1 VIEW, NON DEPT INDICATION: muscle weakness COMPARISON: September 13, 2019 FINDINGS: Portable frontal view of the chest. IMPRESSION: Support Lines: Port-A-Cath tipoverlies the atriocaval junction. Lungs and pleura: Unchanged airspace and pleural opacities. No pneu mothorax.Heart and mediastinum: Stable contours. Stable surgical changes.Additional findings: None. Signed: Quyen Torres Verified Date/Time: 02/26/2020 11:31:39 Reading Location: [facility] Radiology Reading Room [facility], BRAIN/STROKE [id number] 11:24:00Reason for exam:->right arm lack of coordination, vision changesWhat is the patient's sedation requirement?- >No SedationWESTSIDE [facility]Name: SHIVAM SY[facility] : 1950 Sex: MAddendum BeginsREPORT STATUS:A No intracranial hemorrhage.Left posterior frontal/precentral gyrus cortico-subcortical hypodensity is new since prior CT of 09/13/2019. The findings werediscussed with the RN Brii Colon on 02/26/2020 at 11:15 AM Signed: Rolando Atwood MDReport Verified Date/Time: 02/26/2020 11:24:42 Reading Location: [place] [facility] Reading Room [address] [place], [place] [id number] EndsFINALREPORT EXAMINATION: Head CT HISTORY: 70-year-old male with [...] confluent periventricular white matter hypodensities, most likely no nspecific chronic microvascular ischemic changes.3.No mass or hemorrhage. No CT evidence of acute territorial vascular insult. Extra-axial spaces:No abnormal density. No extra-axial fluid collections Brain volume: Normal for age. Ventricles: No hydrocephalus or displacement. Arteries: No density suggestive of thrombus. Dural sinuses: No abnormal density. Extra-axial spaces: No abnormal density. Foramen magnum: No mass, Chiari malformation, or basilar invagination. Sella: No obvious mass. Paranasal/mastoid sinuses: Opacification of the left posterior ethmoidal air cells. Otherwise clear Skull/Scalp:No lytic or blastic lesions. No fractures. IMPRESSION: 1.No acute intracranial hemorrhage.2.Left frontal white matter hypodensity corresponds to an age indeterminate ischemia which was not seen on prior head CT of 09/13/2019.3.Mild chronic microvascular ischemic changes. Signed: Rolando Atwood MDReport Verified Date/Time: 02/26/2020 11:14:42 Reading Location: [facility] Reading Room [address] [place], [place] [address] CT, CHEST, WITHOUT IV CONTRAST 2020-01-06 08:51:00ONCOLOGY SCAN RESTAGING RCC.Unlisted Reason for Exam [...] or hilar lymphadenopathy. Heart and pericardium are unr emarkable. No pleural effusion. There is increased airspace [...] In the pelvis, bladder is unremarkable. Prostate glandis enlarged. There is a small fat-containing right [...] Fregoso Verified Date/Time: 01/06/2020 08:51:39 Reading Location: [facility] C013X [facility] Consult Reading Room CT, [id number] 08:51:00ONCOLOGY SCAN , RESTAGING RCCUnlisted Reason for [...] In the pelvis, bladder is unremarkable. Prostate glandis enlarged. There is a small fat-containing right [...] MDReport Verified Date/Time: 01/06/2020 08:51:39 Reading Location: [address] Consult Reading Room [facility], [id number] 19:30:00FINAL REPORT TECHNIQUE: CT of the chest, abdomen, and pelvis WITHOUT intravenous contrast and WITHOUT oral contrast. Dose modulation, iterative reconstruction, and/or weight-based adjustment of the mA/kV was utilized to reduce the radiation dose to as low as reasonably achievable.INDICATION: clear cell renal cell carcinoma. COMPARISON: CT of the chest, abdomen, and pelvis from 06/15/2019. FINDINGS: ABSENCE OF INTRAVENOUS CONTRAST DECREASES SENSITIVITY FOR DETECTION OF FOCAL LESIONS AND VASCULAR PATHOLOGY. LINES/TUBES: A right IJ port has its tip in the lower SVC. LUNGS AND AIRWAYS: The previously seen medial right lower lobe pulmonary nodule now faint groundglass opacity whichmeasures 0.4 cm on axial image 88. The previous is seen right middle lobe interstitial and groundglass opacity has nearly. Groundglass interstitial opacity of the lingula and lateral left lower lobe isnew. A right middle lobe pulmonary nodule measures [...] HEPATOBILIARY: A calcified granuloma in segment II measures 0.4 cm. Gallbladder is unremarkable. No biliary ductal [...] 1.No recurrent or metastatic disease in the chest,abdomen, or pelvis. 2.The interstitial and groundglass opacity [...] MDReport Verified Date/Time: 10/16/2019 19:30:12 Reading Location: [facility] C013X Ortho Consult Reading Room CT, CHEST, WITHOUT IV [id number] 19:30:00FINAL REPORT TECHNIQUE: CT of the chest, abdomen, and pelvis WITHOUT intravenous contrast and WITHOUT oral contrast. Dose modulation, iterative reconstruction, and/or weight-based adjustment of the mA/kV was utilized to reduce the radiation dose to as low as reasonably achievable.INDICATION: clear cell renal cell carcinoma. COMPARISON: CT of the chest, abdomen, and pelvis from 06/15/2019. FINDINGS: ABSENCE OF INTRAVENOUS CONTRAST DECREASES SENSITIVITY FOR DETECTION OF FOCAL LESIONS AND VASCULAR PATHOLOGY. LINES/TUBES: A right IJ port has its tip in the lower SVC. LUNGS AND AIRWAYS: The previously seen medial right lower lobe pulmonary nodule now faint groundglass opacity whichmeasures 0.4 cm on axial image 88. The previous is seen right middle lobe interstitial and groundglass opacity has nearly. Groundglass interstitial opacity of the lingula and lateral left lower lobe isnew. A right middle lobe pulmonary nodule measures 0.2 cm on axial image 72 and is unchanged. Calcified granulomas measure 0.3 cm. PLEURA: The pleural spaces are clear.HEART AND MEDIASTINUM: The visualized thyroid gland is normal. No significant mediastinal, hilar, or axillary lymphadenopathy. The heart and pericardium are within normal limits. Marked coronary arterial calcification. Marked calcificat ion of the descending thoracic aorta. HEPATOBILIARY: A calcified granuloma in segment II measures 0.4 cm. Gallbladder is unremarkable. No biliary ductal dilatation.SPLEEN: No splenomegaly.PANCREAS: No focal masses or ductal dilatation. ADRENALS: No adrenal nodules.KIDNEYS/URETERS: Prior left nephrectom y. No right hydronephrosis or exophytic masses. A right lower pole nonobstructing renal stone measures 0.4 cm.PELVIC ORGANS/BLADDER: The prostate is enlarged. Small, indirect right inguinal hernia. PERITONEUM/RETROPERITONEUM: No free air or fluid.LYMPH NODES: No lymphadenopathy.VESSELS: Intrarenal abdo hebert aortic aneurysm measures 3.6 cm in diameter, previously 3.5 cm. Marked aortoiliac calcification. GI TRACT: No distention or wall thickening. The appendix is normal. BONES AND SOFT TISSUES: There has been a prior right iliac bone reconstruction with an unchanged appearance compared to 06/15/2019. The bones are diffusely demineralized. IMPRESSION: 1.No recurrent or metastatic disease in the chest,abdomen, or pelvis. 2.The interstitial and groundglass opacity in the lateral left lower lobe and lingula is most likely due to infection. A drug reaction is possible but considered less likely. 3.The p reviously seen medial right lower lobe pulmonary nodule is now a faint groundglass opacity and was likely infectious. The previously seen right middle lobe interstitial and groundglass opacity has resolved and was likely also infectious. 4.An abdominal aortic aneurysm measures 3.6 cm in diameter, previ ously 3.5 cm. A follow-up examination is recommended every 2 years. 5.A right lower pole nonobstructing renal stone measures 0.4 cm. Signed: Maria Elena Borrero [facility] Verified Date/Time: 10/16/2019 19:30:12 Reading Location: [address] Consult Reading Room CT, [id number] 16:30:00FINAL REPORT CT of the chest, abdomen [...] middle lobe, there is a somewhat linear, irregularly- shaped small opacity in the middle lobe. In the medial right lower lobe, there is a new 4 mm nodule. No consolidation, or pleural effusion. Central airways are patent, no bronchiectasis, or bronchial wall thickening. No liver lesion is identified. There is no biliary ductal dilatation, and the gallbladder is un remarkable. The spleen, pancreas, adrenal glands are unremarkable. [...] aneurysm. No lymphadenopathy or ascites. Status post surgical fixation of the right iliac crest along with placement ofcement material. No recurrent mass is identified allowing for hardware artifact in this region. Osseous structures demonstrate degenerative changes. No new bony lesion is identified. Impression: Statuspost left nephrectomy. No new disease identified in the abdomen or pelvis. A 4 mm nodule in the right lower lobe is new, and there is also a small ill-defined opacity in the right middle lobe. Both areamenable to follow-up. An abdominal aortic aneurysm measures 3.5 cm in diameter. A follow-up examination is recommended every 2 years. Nonocclusive stone in the right kidney. Enlarged prostate gland. Signed: Karan Fregosoort Verified Date/Time: 06/15/2019 16:30:24 Reading Location: [address] Consult Reading Room CT, CHEST, WITH IV [id number] 16:30:00FINAL REPORT CT of the chest, abdomen [...] middle lobe, there is a somewhat linear, irregularly- shaped small opacity in the middle lobe. In the medial right lower lobe, there is a new 4 mm nodule. No consolidation, or pleural effusion. Central airways are patent, no bronchiectasis, or bronchial wall thickening. No liver lesion is identified. There is no biliary ductal dilatation, and the gallbladder is un remarkable. The spleen, pancreas, adrenal glands are unremarkable. [...] aneurysm. No lymphadenopathy or ascites. Status post surgical fixation of the right iliac crest along with placement ofcement material. No recurrent mass is identified allowing for hardware artifact in this region. Osseous structures demonstrate degenerative changes. No new bony lesion is identified. Impression: Statuspost left nephrectomy. No new disease identified in the abdomen or pelvis. A 4 mm nodule in the right lower lobe is new, and there is also a small ill-defined opacity in the right middle lobe. Both areamenable to follow-up. An abdominal aortic aneurysm measures 3.5 cm in diameter. A follow-up examination is recommended every 2 years. Nonocclusive stone in the right kidney. Enlarged prostate gland. Signed: Karan Fregoso [facility] Verified Date/Time: 06/15/2019 16:30:24 Reading Location: [place] [id number] [facility] Consult Reading Room [id number] 14:21:00 Test Item Value Reference Range Interpretation Comments POC-CREATININE 1.5 mg/dL 0.6-1.3 H TESTED AT [facility] 7200 ([employer]) (test [facility] A code = 1859) [facility] 7703 0 POC-EGFR 46 mL/min/1.73M2 (SHANEKA) (test code = 1860) RAD, HIPS, BILATERAL TO INCLUDE [id number] 13:33:00Bilateral hip pain x monthsReason for Exam:->hip pain bilateralFINAL REPORT Radiographs of the hips and pelvis HISTORY: PainCOMPARISON: August 13, 2018. FINDINGS:Bones:No acute displaced fracture. Osseous alignment is within normal limits. Joints:Scattered degenerative change. No osseous erosion. Chronic appearing deformity of the superior-lateral right iliac bone. Surgical screws through the right iliac bone are intact. Soft tissues:The softtissues appear unremarkable. IMPRESSION: Scattered degenerative change. No osseous erosion. Chronic appearing deformity of the superior-lateral right iliac bone. Surgical screws through the right iliacbone are intact. Signed: Tamara Tesfaye [facility] Verified Date/Time: 03/19/2019 13:33:29 Reading Location: [facility] Reading Room [address] [place] [address] , [id number] 11:49:00FINAL REPORT CT scan of the chest, abdomen and pelvis. MEDICAL HISTORY: Clear cell renal cell carcinoma. COMPARISON STUDY: September 18, 2018. TECHNIQUE: Contiguous helical slices were ac quired through the chest, abdomen and pelvis post [...] than on previous and likely a fissural lymph node. Atelectatic changes are seen. Some subpleural fibrosis is seen in the lung bases. The liver, spleen, pancreas and adrenal glands are unremarkable. The left kidney has been resected. No residual soft tissue seen in the nephrectomy bed. The right kidney demonstrates a 5 mm nonocclusive calculus in the lower pole. There are no dilated loops of bowel seen to suggest obstruction. The appendix is not well seen but no obvious signs of appendicitis [...] noted. Bilateral fat-containing inguinal hernias are seen measuringup to 2.9 cm on the right side. Bone windows demonstrate degenerative changes. Extensive postsurgical changes are seen in the right iliac bone with bone cement identified. There is some persistent softtissue tissue measuring up to 3.0 x 3.0 cm anterior to the cement material, smaller than on previousat which time it measured 5.5 x 4.6 [...] A follow-up examination is recommended every 2 years.6. Stable tiny scattered tiny pulmonary nodules. Signed: Farooq Higuera [facility] Verified Date/Time: 03/06/2019 11:49:07 Reading Location: [facility] [id number] [facility] Consult Reading Room CT, CHEST, WITH IV [id number] 11:49:00FINAL REPORT CT scan of the chest, abdomen and pelvis. MEDICAL HISTORY: Clear cell renal cell carcinoma. COMPARISON STUDY: September 18, 2018. TECHNIQUE: Contiguous helical slices were acquired through the chest, abdomen and pelvis post [...] than on previous and likely a fissural lymph node. Atelectatic changes are seen. Some subpleural fibrosis is seen in the lung bases. The liver, spleen, pancreas and adrenal glands are unremarkable. The left kidney has been resected. No residual soft tissue seen in the nephrectomy bed. The right kidney demonstrates a 5 mm nonocclusive calculus in the lower pole. There are no dilated loops of bowel seen to suggest obstruction. The appendix is not well seen but no obvious signs of appendicitis [...] noted. Bilateral fat-containing inguinal hernias are seen measuringup to 2.9 cm on the right side. Bone windows demonstrate degenerative changes. Extensive postsurgical changes are seen in the right iliac bone with bone cement identified. There is some persistent softtissue tissue measuring up to 3.0 x 3.0 cm anterior to the cement material, smaller than on previousat which time it measured 5.5 x 4.6 [...] A follow-up examination is recommended every 2 years.6. Stable tiny scattered tiny pulmonary nodules. Signed: Farooq Higuera [facility] Verified Date/Time: 03/06/2019 11:49:07 Reading Location: [facility] B1 [id number] Ortho Consult Reading Room [id number] 10:50:00 Test Item Value Reference Range Interpretation Comments POC-CREATININE 1.3 mg/dL 0.6-1.3 TESTED AT [facility] 7200 [facility] (test DESIREE BLD G A code = 1859) [facility] 7703 0 POC-EGFR 54 mL/min/1.73M2 (BEAKER) (test code = 1860) THOMAS, CV ACCESS, [id number] 08:46:00Reason for Exam:->Clear cell renal cell carcinoma [...] and a registered nurse for approximately 30 minutesduring the procedure. Access was gained to the right internal jugular vein using ultrasound guidancea micropuncture needle. A short transverse incision was made in the right anterior chest wall. Usingblunt dissection, a subcutaneous pocket was created just [...] enclosed using 3-0 Monocryl resorbable suture. Steri-Strips, dermabondand a sterile bandage were applied. There were [...] jugular chest port. Fluoroscopy time: 1.7 minutesEstimated dosein (Ka,r): 18.1 mGy Signed: Cornelia Robison [facility] Verified Date/Time: 10/01/2018 08:46:35 Reading Location: [place] [address] Angio Body Reading Room PROTHROMBIN [id number] 11:13:00 Test Item Value Reference Range Interpretation [...] is 2.5-3.5 for patients wiht mechanical heart valves.CBC W/PLT COUNT & AUTO [id number] 11:03:00 Test Item Value Reference Range Interpretation [...] code = 2801) CT, PELVIS, WITH IV [id number] 14:29:00FINAL REPORT EXAM: CT Chest, Abdomen and Pelvis WITH contrast INDICATION: clearcell renal cell carcinoma left COMPARISON: CT dated [...] spaces are clear. HEART AND MEDIASTINUM: The thyroidgland is normal. No mediastinal, hilar or axillary [...] ADRENALS: No adrenal nodules KIDNEYS/URETERS: Postsurgical changes ofleft nephrectomy. Small amount of fluid in the surgical bed, extending to the adrenal gland, best seen on coronal image 67. 5 mm right renal inferior pole nonobstructive calculus. No right hydronephrosis. Right renal inferior pole subcentimeter hypodensities are too small to characterize. GI TRACT: Noabnormal distention, wall thickening, or evidence of bowel [...] left adrenal gland.3.Subcentimeter right iliac chain lymph nodes,of which one has mildly increased in size when compared to prior CT dated 07/24/2018. Attention on fol low-up examination.4.Status post screw fixation and hyperintense material insertion in the metastatic right iliac lesion with soft tissue component. Persistent enhancing soft tissue component is visualized.5.Again seen markedly enlarged prostate gland.6.Not significantly changed foci of infrarenal abdominal aortic aneurysm. Signed: Elías Monahan [facility] Verified Date/Time: 09/19/2018 14:29:11 Reading Location: [facility] Reading Room [address] [place] [address] CT, CHEST, WITH IV CONTRAST 2018-09-19 14:29:00FINAL REPORT EXAM: CT Chest, Abdomen and Pelvis WITH contrast INDICATION: clearcell renal cell carcinoma left COMPARISON: CT dated 07/24/2018TECHNIQUE: Chest, abdomen and pelvis were scanned utilizing a multidetector helical scanner from the lung apex to the pubic symphysis after a dministration of IV contrast. Coronal and sagittal reformations [...] spaces are clear. HEART AND MEDIASTINUM: The thyroidgland is normal. No mediastinal, hilar or axillary [...] ADRENALS: No adrenal nodules KIDNEYS/URETERS: Postsurgical changes ofleft nephrectomy. Small amount of fluid in the surgical bed, extending to the adrenal gland, best seen on coronal image 67. 5 mm right renal inferior pole nonobstructive calculus. No right hydronephrosis. Right renal inferior pole subcentimeter hypodensities are too small to characterize. GI TRACT: Noabnormal distention, wall thickening, or evidence of bowel [...] left adrenal gland.3.Subcentimeter right iliac chain lymph nodes,of which one has mildly increased in size when compared to prior CT dated 07/24/2018. Attention on fol low-up examination.4.Status post screw fixation and hyperintense material insertion in the metastatic right iliac lesion with soft tissue component. Persistent enhancing soft tissue component is visualized.5.Again seen markedly enlarged prostate gland.6.Not significantly changed foci of infrarenal abdominal aortic aneurysm. Signed: Elías Monahan Verified Date/Time: 09/19/2018 14:29:11 Reading Location: [facility] Reading Room [address] [place] [address] CT, ABDOMEN, WITH IV CONTRAST 2018-09-19 14:29:00Reason for Exam:->clear cell renal cell carcinomaFINAL REPORT EXAM: CT Chest, Abdomen and Pelvis WITH contrast INDICATION: clearcell renal cell carcinoma left COMPARISON: CT dated 07/24/2018TECHNIQUE: Chest, abdomen and pelvis were scanned utilizing a multidetector helical scanner from the lung apex to the pubic symphysis after a dministration of IV contrast. Coronal and sagittal reformations [...] spaces are clear. HEART AND MEDIASTINUM: The thyroidgland is normal. No mediastinal, hilar or axillary [...] ADRENALS: No adrenal nodules KIDNEYS/URETERS: Postsurgical changes ofleft nephrectomy. Small amount of fluid in the surgical bed, extending to the adrenal gland, best seen on coronal image 67. 5 mm right renal inferior pole nonobstructive calculus. No right hydronephrosis. Right renal inferior pole subcentimeter hypodensities are too small to characterize. GI TRACT: Noabnormal distention, wall thickening, or evidence of bowel obstruction. Appendix is normal. PELVIC ORGANS/BLADDER: Markedly enlarged prostate gland. Bladder is not distended, demonstrating wall thickening. LYMPH NODES: Unchanged 1 cm right external iliac lymph node (series 1, image 117). A 0.8 cm right external iliac lymph node (/), previously 0.6 cm. Another right iliac chain node measures 0.9 cm (/), previously 0.5 cm. Not significantly changed 0.6 [...] left adrenal gland.3.Subcentimeter right iliac chain lymph nodes,of which one has mildly increased in size when compared to prior CT dated 07/24/2018. Attention on fol low-up examination.4.Status post screw fixation and hyperintense material insertion in the metastatic right iliac lesion with soft tissue component. Persistent enhancing soft tissue component is visualized.5.Again seen markedly enlarged prostate gland.6.Not significantly changed foci of infrarenal abdominal aortic aneurysm. Signed: Elías Monahan [facility] Verified Date/Time: 09/19/2018 14:29:11 Reading Location: [facility] Reading Room [address] [place] [address] [id number] 14:19:00 Test Item Value Reference Range Interpretation Comments POC-CREATININE 1.4 mg/dL 0.6-1.3 H TESTED AT [facility] 7200 (BEAKER) (test DESIREE BLD G A code = 1859) [facility] 7703 0 POC-EGFR 50 mL/min/1.73M2 (BEAKER) (test code = 1860) TISSUE [id number] 15:12:00Surgical Pathology Report Case: [id number] Authorizing Provider: Donald Escoto MD Collected: 08/21/2018 1902 Ordering Location: [facility] PERIOPER[facility] Received: 08/22/2018 0800 SERVICES Pathologist: El Farah MD Specimen: Kidney, Left, LEFT KIDNEY PART A LEFT KIDNEY AND ADRENAL GLAND, RADICAL NEPHRECTOMY:CLEAR CELL RENAL CELL CARCINOMA, NUCLEAR GRADE 2, 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 SEE SYNOPTIC REPORT. Signing Pathologist Direct Phone Line: [phone] signed by El Busby MD on 08/25/2018 at 3:12 PMKIDNEY: Nephrectomy (Kidney Res - All Specimens)SPECIMEN Procedure: Radical nephrectomy Specimen Laterality: Left TUMOR Tumor Site: Middle Histologic Type: Clear cell renal cell carcinoma Histologic Grade (WHO / ISUP Grade): G2: Nucleoli conspicuous and eosinophilic at 400x magnification, visible but not prominent at 100xmagnification Tumor Size: Greatest dimension in Centimeters (cm): 6.5 Centimeters (cm) Additional Dimension in Centimeters (cm): 4.5 Centimeters (cm) Additional Dimension in Centimeters (cm): 4 Centimeters (cm) Tumor Focality: Unifocal Tumor Extent: Tumor Extension: Tumor limited to kidney Accessory Findings: Sarcomatoid Features: Not identified Rhabdoid Features: Not identified Tumor Necrosis: Prese nt Percentage of Necrosis: 20 % Lymphovascular Invasion: Not identified MARGINS Margins: Uninvolved by invasive carcinoma LYMPH NODES Number of Lymph Nodes Involved: 0 Number of Lymph Nodes Examined: 2PATHOLOGIC STAGE CLASSIFICATION (pTNM, AJCC 8th Edition) Primary Tumor (pT): pT1b Regional Lymph Nodes (pN): pN0 [id number] mass Left kidney The specimen is received in a formalin-filled container labeled with the patient's information and labeled "left kidney" and consists of a 1,110 gm left radicalnephrectomy measuring 27 x 10 x 6 cm [...] against the renal sinus but does not in volve it grossly. The pelvis and ureter are [...] kidney parenchyma superior pole. CG/ew PERFORMED.BASIC METABOLIC [id number] 06:41:00 Test Item Value Reference Range Interpretation Comments SODIUM (BEAKER) 141 meq/L 136-145 (test code = 381) POTASSIUM (BEAKER) 4.5 meq/L 3.5-5.1 (test code = 379) CHLORIDE (BEAKER) 107 meq/L 98-107 (test code = 382) CO2 (BEAKER) (test 27 meq/L -29 code = 355) BLOOD UREA NITROGEN 20 [...] PATIEN TS. CBC W/PLT COUNT & AUTO [id number] 06:14:00 Test Item Value Reference Range Interpretation [...] (BEAKER) (test code = 2801) BASIC METABOLIC [id number] 07:30:00 Test Item Value Reference Range Interpretation [...] PATIEN TS. CBC W/PLT COUNT & AUTO [id number] 07:16:00 Test Item Value Reference Range Interpretation [...] (BEAKER) (test code = 2801) BASIC METABOLIC [id number] 06:32:00 Test Item Value Reference Range Interpretation [...] PATIEN TS. CBC W/PLT COUNT & AUTO [id number] 05:57:00 Test Item Value Reference Range Interpretation [...] PERCENT (BEAKER) (test code = 2801) POCT-GLUCOSE [id number] 12:04:00 Test Item Value Reference Range Interpretation Comments POC-GLUCOSE METER 110 mg/dL 70-110 TESTED AT [place] [address] [facility] (test code = [facility] 1538) [address] POCT-GLUCOSE [id number] 09:07:00 Test Item Value Reference Range Interpretation Comments POC-GLUCOSE METER 104 mg/dL 70-110 TESTED AT [place] [address] ([facility]) (test code = [facility] 1538) [address] BASIC METABOLIC [id number] 06:10:00 Test Item Value Reference Range Interpretation [...] PATIEN TS. CBC W/PLT COUNT & AUTO [id number] 05:22:00 Test Item Value Reference Range Interpretation [...] (BEAKER) (test code = 2801) BASIC METABOLIC [id number] 21:59:00 Test Item Value Reference Range Interpretation [...] APPLICABLE FOR DIALYSIS PATIEN TS. HEMOGLOBIN AND [id number] 21:21:00 Test Item Value Reference Range Interpretation Comments HEMOGLOBIN (BEAKER) (test code = 8.8 GM/DL 13.7-17.5 L 410) HEMATOCRIT (BEAKER) (test code = 28.4 % 40.1-51.0 L 411) POCT-GLUCOSE [id number] 20:59:00 Test Item Value Reference Range Interpretation Comments POC-GLUCOSE METER 161 mg/dL 70-110 H TESTED AT [facility] 6720 (BEAKER) (test code = [place] 1538) [address] POCT-GLUCOSE [id number] 12:51:00 Test Item Value Reference Range Interpretation Comments POC-GLUCOSE METER 131 mg/dL 70-110 H TESTED AT [place] [address] ([facility]) (test code = YU García [place] 1538) [address] POCT-GLUCOSE [id number] 14:19:00 Test Item Value Reference Range Interpretation Comments POC-GLUCOSE METER 138 mg/dL 70-110 H TESTED AT [place] [address] ([facility]) (test code = YU [place] [place] 1538) [address] POCT-GLUCOSE [id number] 08:57:00 Test Item Value Reference Range Interpretation Comments POC-GLUCOSE METER 132 mg/dL 70-110 H TESTED AT [place] [address] ([facility]) (test code = YU García [place] 1538) [address] POCT-GLUCOSE [id number] 21:03:00 Test Item Value Reference Range Interpretation Comments POC-GLUCOSE METER 165 mg/dL 70-110 H TESTED AT [place] [address] ([facility]) (test code = [place]U [place]ía [place] 1538) [address] POCT-GLUCOSE [id number] 18:52:00 Test Item Value Reference Range Interpretation Comments POC-GLUCOSE METER 127 mg/dL 70-110 H TESTED AT [place] [address] ([facility]) (test code = YU [place] [place] 1538) [address] POCT-GLUCOSE [id number] 13:22:00 Test Item Value Reference Range Interpretation Comments POC-GLUCOSE METER 155 mg/dL 70-110 H TESTED AT [place] [address] ([facility]) (test code = YU [place] [place] 1538) [address] POCT-GLUCOSE [id number] 08:52:00 Test Item Value Reference Range Interpretation Comments POC-GLUCOSE METER 150 mg/dL 70-110 H TESTED AT [place] [address] ([facility]) (test code = YU García [place] 1538) [address] POCT-GLUCOSE [id number] 22:36:00 Test Item Value Reference Range Interpretation Comments POC-GLUCOSE METER 149 mg/dL 70-110 H TESTED AT [place] [address] ([facility]) (test code = YU García [place] 1538) [id number] POCT-GLUCOSE [id number] 13:20:00 Test Item Value Reference Range Interpretation Comments POC-GLUCOSE METER 169 mg/dL 70-110 H TESTED AT [place] [address] ([facility]) (test code = YU García [place] 1538) [address] POCT-GLUCOSE [id number] 09:00:00 Test Item Value Reference Range Interpretation Comments POC-GLUCOSE METER 140 mg/dL 70-110 H TESTED AT [facility] 6720 (BEAKER) (test code = YU [facility] 1538) [address] CBC W/PLT COUNT & AUTO [id number] 06:23:00 Test Item Value Reference Range Interpretation [...] code = 2801) ANG, ARTERIAL EMBOLIZATION FOR [id number] 15:04:00Reason for exam:- >right iliac wing RCC [...] the patient's medical record by the nurse. Director Part: Austin Frost MD. Manager Training And Development: None. Approach: Left common femoral artery Estimate d blood loss: < 5 cc. Specimen: None. [...] for performing radiologist and scrub technologist. Initial ultrasoundimages demonstrate patent left common femoral artery. Using ultrasound guidance, following acquisition of permanent images, the left common femoral artery was accessed using a 21-gauge micropuncture needle. A 0.018 inch wire was advanced into the abdominal aorta. The needle was exchanged for a 4 Turkish micropuncture sheath. The micropuncture sheath was exchanged over a 0.035 Bentson wire for a 5 Turkish x 10 cm vascular sheath. Using a 5 Turkish contra catheter and 0.035 angled Glidewire, the right common iliac artery was accessed via an up and over technique. A 4 Turkish glide catheter was advanced into the left common iliac artery and a DSA run was performed. Using a 2.8 Turkish microcatheter and 0.016 inch microwire, the circumflex femoral artery arising off the external iliac artery was cannulated. Repeat DSA was performed. Selective embolization was performed via three branches arising off the c ircumflex femoral artery supplying the hypervascular lesion with [...] The arteriotomy was closed using a 5 Turkish Myxn closure device. A sterile dressing was [...] right iliac lesion via multiple branches arising offthe circumflex femoral and iliac arteries as detailed above.3. Post embolization arteriography from the right common iliac artery demonstrates significant reduction of hypervascularity within the largeright iliac lesion.4. Left common femoral artery injection demonstrates patent left common femoral artery and puncture amenable for closure device. Impression: Technically successful pelvic arteriography and arterial embolization of right iliac lesion resulting in significant reduction in hypervascularity as detailed above. Signed: Austin Frost MDReport Verified Date/Time: 08/15/2018 15:04:06 Reading Location: [place] [address] Angio Body Reading Room POCT-GLUCOSE [id number] 11:13:00 Test Item Value Reference Range Interpretation Comments POC-GLUCOSE METER 136 mg/dL 70-110 H TESTED AT [place] [address] ([facility]) (test code = [place] 1530) [address] BASIC METABOLIC [id number] 04:54:00 Test Item Value Reference Range Interpretation [...] S NOT APPLICABLE FOR DIALYSIS PATIEN TS. [id number] 04:52:00 Test Item Value Reference Range Interpretation Comments PHOSPHORUS (BEAKER) (test code = 2.7 mg/dL 2.3-4.7 604) [id number] 04:52:00 Test Item Value Reference Range Interpretation Comments MAGNESIUM (BEAKER) (test code = 1.6 mg/dL 1.6-2.6 627) HEPATIC FUNCTION [id number] 04:52:00 Test Item Value Reference Range Interpretation [...] 6-55 347) CBC W/PLT COUNT & AUTO [id number] 04:32:00 Test Item Value Reference Range Interpretation [...] 417) IMMATURE GRANULOCYTES-RELATIVE 1 % 0-1 PERCENT ([facility]) (test code = 2801) POCT-GLUCOSE [id number] 21:14:00 Test Item Value Reference Range Interpretation Comments POC-GLUCOSE METER 170 mg/dL 70-110 H TESTED AT [place] [address] ([facility]) ([facility] 1538) [address] POCT-GLUCOSE [id number] 13:18:00 Test Item Value Reference Range Interpretation Comments POC-GLUCOSE METER 141 mg/dL 70-110 H TESTED AT [place] [address] ([facility]) (test code = [facility] 1538) [address] POCT-GLUCOSE [id number] 09:24:00 Test Item Value Reference Range Interpretation Comments POC-GLUCOSE METER 132 mg/dL 70-110 H TESTED AT [place] [address] ([facility]) (test code = [facility] 1538) [address] CBC W/PLT COUNT & AUTO [id number] 06:37:00 Test Item Value Reference Range Interpretation Comments WHITE BLOOD CELL COUNT (BEAKER) 4.8 K/ L 3.5-10.5 (test code = 775) RED BLOOD CELL COUNT (AKER) 3.25 M/ L 4.63-6.08 L (test code [...] 0-1 PERCENT (BEAKER) (test code = 2801) [id number] 06:13:00 Test Item Value Reference Range Interpretation Comments PHOSPHORUS (BEAKER) (test code = 4.3 mg/dL 2.3-4.7 604) [id number] 06:13:00 Test Item Value Reference Range Interpretation Comments MAGNESIUM (BEAKER) (test code = 1.7 mg/dL 1.6-2.6 627) BASIC METABOLIC [id number] 06:13:00 Test Item Value Reference Range Interpretation [...] APPLICABLE FOR DIALYSIS PATIEN TS. HEPATIC FUNCTION [id number] 06:13:00 Test Item Value Reference Range Interpretation [...] code = 7 U/L 6-55 347) POCT-GLUCOSE [id number] 22:31:00 Test Item Value Reference Range Interpretation Comments POC-GLUCOSE METER 157 mg/dL 70-110 H TESTED AT [facility] 6720 ([facility]) (test code = YU García [facility] 1538) [address] RAD, PELVIS, 1 OR 2 [id number] 20:11:00Reason for exam:->postop right pelvis fixation and [...] area.. Signed: Rika Escobar MDReport Verified Date/Time: 08/13/2018 20:11:08 Reading Location: [facility] C013 Consult Reading Room POCT-GLUCOSE [id number] 18:15:00 Test Item Value Reference Range Interpretation Comments POC-GLUCOSE METER 146 mg/dL 70-110 H TESTED AT [facility] 6720 (BEAKER) (test code = [place] 1538) [address] HEMOGLOBIN AND [id number] 18:05:00 Test Item Value Reference Range Interpretation Comments HEMOGLOBIN (BEAKER) (test code = 10.3 GM/DL 13.7-17.5 L 410) HEMATOCRIT (BEAKER) (test code = 32.5 % 40.1-51.0 L 411) FL, 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 Signed: Rika Escobar Verified Date/Time: 08/13/2018 17:33:20 Reading Location: [facility] [id number] Consult Reading Room PROTHROMBIN [id number] 03:57:00 Test Item Value Reference Range Interpretation Comments PROTIME (BEAKER) (test code = 13.7 seconds 11.7-14.7 759) INR (BEAKER) (test code = 370) 1.0 <=5.9 RECOMMENDED COUMADIN/WARFARIN INR THERAPY RANGESSTANDARD DOSE: 2.0 - 3.0 Includes: PROPHYLAXIS for venous thrombosis, systemic embolization; TREATMENT for venous thrombosis and/or pulmonary embolus.HIGH RISK: Target INR is 2.5-3.5 for patients with mechanical heart valves.[id number] 03:55:00 Test Item Value Reference Range Interpretation Comments PHOSPHORUS (BEAKER) (test code = 3.2 mg/dL 2.3-4.7 604) [id number] 03:55:00 Test Item Value Reference Range Interpretation Comments MAGNESIUM (BEAKER) (test code = 1.4 mg/dL 1.6-2.6 L 627) BASIC METABOLIC [id number] 03:55:00 Test Item Value Reference Range Interpretation [...] NOT APPLICABLE FOR DIALYSIS PATIEN TS. LIPID [id number] 03:55:00 Test Item Value Reference Range Interpretation Comments TRIGLYCERIDES (BEAKER) (test code = 133 mg/dL 540) CHOLESTEROL (BEAKER) (test code = 108 mg/dL 631) HDL CHOLESTEROL (BEAKER) (test code 25 mg/dL = 976) LDL CHOLESTEROL CALCULATED (BEAKER) 56 mg/dL (test code = 633) Triglyceride Reference Range: Low Risk <150 Borderline 150-199 High Risk 200- 499 Very High Risk >=500Cholesterol Reference Range: Low Risk <200 Borderline 200-239 High Risk >240HDL Cholesterol Reference Range: Low Risk >=60 High Risk <40LDL Cholesterol Reference Range: Optimal <100 Near Optimal 100-129 Borderline 130-159 High 160-189 Very High >=190HEPATIC FUNCTION [id number] 03:55:00 Test Item Value Reference Range Interpretation [...] 6-55 347) CBC W/PLT COUNT & AUTO [id number] 03:42:00 Test Item Value Reference Range Interpretation [...] (BEAKER) (test code = 2801) BASIC METABOLIC [id number] 11:50:00 Test Item Value Reference Range Interpretation [...] S NOT APPLICABLE FOR DIALYSIS PATIEN TS. [id number] 11:32:00 Test Item Value Reference Range Interpretation Comments PARTIAL THROMBOPLASTIN TIME 30.9 seconds 22.5-36.0 (BEAKER) (test code = 760) PROTHROMBIN [id number] 11:31:00 Test Item Value Reference Range Interpretation Comments PROTIME (BEAKER) (test code = 13.6 seconds 11.7-14.7 759) INR (BEAKER) (test code = 370) 1.0 <=5.9 RECOMMENDED COUMADIN/WARFARIN INR THERAPY RANGESSTANDARD DOSE: 2.0 - 3.0 Includes: PROPHYLAXIS for venous thrombosis, systemic embolization; TREATMENT for venous thrombosis and/or pulmonary embolus.HIGH RISK: Target INR is 2.5-3.5 for patients with mechanical heart valves.CBC W/PLT COUNT & AUTO [id number] 11:22:00 Test Item Value Reference Range Interpretation [...] PERCENT (BEAKER) (test code = 2801) TISSUE [id number] 16:07:00Surgical Pathology Report Case: [id number] Authorizing Provider: Antonio Weir MD Collected: 07/28/2018 1122 Ordering Location: [address] Received: 07/28/2018 1458 Service Pathologist: Franki Ku MD Specimen: Kidney, Left KIDNEY, LEFT, BIOPSY OF MASS- CLEAR CELL RENAL CELL CARCINOMA- WHO/ISUP GRADE 2- SEE COMMENT Signing Pathologist Direct Phone Line: [phone] signed by Franki Ku MD on 07/29/2018 at 4:07 PMThe nuclear grading is based on a limited sample. Some parts of the tumor have prominent eosinophilic cytoplasm. INTRADEPARTMENTAL CONSULTATION: - Tono Lundy MD has seen the case and agrees with the diagnosis.[id number] renal mass 7.2 x 5.1 x 6.0 cmLeft seneca-[place] renal biopsyThe specimen is received in a formalin-filled container labeled with the patient's information and labeled "left sen[place] renal biopsy" and consists of multiple couch- red core biopsies ranging from 0.1 to 1.5 cm, submitted entirely in A1. CG/ew Performed.The interpretation of thiscase included the use of immunohistochemistry or special stains. Immunohistochemistry technical testing was performed at [facility], Pathology Laboratory where it was developed and its performance characteristics were determined. It has not been cleared or approved by the U.S. Food and Drug Administration. The FDA has determined that such clearance or approval is not necessary. The test is used for clinical purposes. It should not be regarded as investigational or for research.This laboratory is certified under the Clinical Laboratory Improvement Amendments of 1988 (CLIA-88) as qualified to perform high complexity clinical laboratory testing.RAD, KNEE, 1 OR 2 VIEWS, [id number] 12:35:00Reason for exam:->possible cancer seen on bone [...] knee. Signed: Sherif Garza MDReport Verified Date/Time: 07/29/201812:35:32 Reading Location: [address] Consult Reading Room -GLUCOSE [id number] 13:11:00 Test Item Value Reference Range Interpretation Comments POC-GLUCOSE METER 118 mg/dL 70-110 H TESTED AT [place] [address] ([facility]) (test code = [place] 1538) [address] U/S, BIOPSY, RENAL (KIDNEY)2018-07-28 11:52:00Reason for exam:->L [...] was used for local anesthesia. Using left posterolateralapproach and ultrasound guidance, a 18-gauge biopsy device [...] MDReport Verified Date/Time: 07/28/2018 11:52:52 Reading Location: [facility] P006J Ultrasound Reading Room POCT-GLUCOSE [id number] 08:38:00 Test Item Value Reference Range Interpretation Comments POC-GLUCOSE METER 128 mg/dL 70-110 H TESTED AT [facility] 6720 [facility] (test code = YU [facility] 1538) [address] BASIC METABOLIC [id number] 06:31:00 Test Item Value Reference Range Interpretation [...] S NOT APPLICABLE FOR DIALYSIS PATIEN TS. [id number] 05:25:00 Test Item Value Reference Range Interpretation [...] mechanical heart valves.CBC W/PLT COUNT & AUTO [id number] 04:57:00 Test Item Value Reference Range Interpretation [...] PERCENT (BEAKER) (test code = 2801) POCT-GLUCOSE [id number] 22:16:00 Test Item Value Reference Range Interpretation Comments POC-GLUCOSE METER 140 mg/dL 70-110 H TESTED AT [facility] 6720 (BEAKER) (test code = [facility] 1538) [address] BONE AND/OR JOINT IMAGING, WHOLE [id number] 20:29:00FINAL REPORT PROCEDURE: BONE SCAN, WHOLE BODY CPT CODE: 94431 INDICATION: Renal masses pelvic mass concerning for renal cell carcinoma with metastases PROTOCOL: 21.9 mCi of Tc-99mMDP was injected intravenously. Whole body and selected [...] from July 24, 2018. Signed: Shabana Prather MDReport Verified Date/Time: 07/27/2018 20:29:10 POCT- GLUCOSE [id number] 18:46:00 Test Item Value Reference Range Interpretation Comments POC-GLUCOSE METER 115 mg/dL 70-110 H TESTED AT [place] [address] ([facility]) (test code = YU García [facility] 1538) [address] POCT-GLUCOSE [id number] 14:03:00 Test Item Value Reference Range Interpretation Comments POC-GLUCOSE METER 141 mg/dL 70-110 H TESTED AT [place] [address] ([facility]) (test code = [facility] 1538) [address] POCT-GLUCOSE [id number] 09:27:00 Test Item Value Reference Range Interpretation Comments POC-GLUCOSE METER 138 mg/dL 70-110 H TESTED AT [place] [address] ([facility]) (test code = [facility] 1538) [address] POCT-GLUCOSE [id number] 08:49:00 Test Item Value Reference Range Interpretation Comments POC-GLUCOSE METER 204 mg/dL 70-110 H TESTED AT [place] [address] ([facility]) (test code = [facility] 1538) [address] POCT-GLUCOSE [id number] 18:45:00 Test Item Value Reference Range Interpretation Comments POC-GLUCOSE METER 104 mg/dL 70-110 TESTED AT [place] [address] ([facility]) (test code = [facility] 1538) [address] HEPATIC FUNCTION [id number] 07:52:00 Test Item Value Reference Range Interpretation Comments TOTAL PROTEIN (BEAKER) (test code = 7.0 gm/dL 6.0-8.3 770) [facility] (test code = 1145) 3.6 g/dL 3.5-5.0 BILIRUBIN TOTAL (BEAKER) (test code 0.4 mg/dL 0.2-1.2 = 377) BILIRUBIN DIRECT ([facility]) (test 0.2 mg/dL 0.1-0.5 code = 706) ALKALINE PHOSPHATASE (BEAKER) (test 76 U/L 40-150 code = 346) AST (SGOT) (BEAKER) (test code = 18 U/L 5-34 353) ALT (SGPT) ([facility]) (test code = 14 U/L 6-55 347) POCT-GLUCOSE [id number] 06:11:00 Test Item Value Reference Range Interpretation Comments POC-GLUCOSE METER 144 mg/dL 70-110 H TESTED AT [facility] 6720 (BEAKER) (test code = YU García [place] 1538) [address] POCT-GLUCOSE [id number] 22:55:00 Test Item Value Reference Range Interpretation Comments POC-GLUCOSE METER 187 mg/dL 70-110 H TESTED AT [facility] 6720 (BEAKER) (test code = YU García [facility] 1538) [address] VITAMIN B12 AND [id number] 16:34:00 Test Item Value Reference Range Interpretation Comments VITAMIN B12 (BEAKER) (test code = 1244 pg/mL 213-816 H 774) FOLATE (BEAKER) (test code = 362) 5.1 ng/mL >=7.0 L HEMOGLOBIN [id number] 10:21:00 Test Item Value Reference Range Interpretation Comments HEMOGLOBIN A1C (BEAKER) (test code = 4.5 % 4.3-6.1 368) CBC W/PLT COUNT & AUTO [id number] 07:02:00 Test Item Value Reference Range Interpretation [...] 0-1 PERCENT (BEAKER) (test code = 2801) [id number] 06:53:00 Test Item Value Reference Range Interpretation [...] L (test code = 2590) BASIC METABOLIC [id number] 06:12:00 Test Item Value Reference Range Interpretation [...] FOR DIALYSIS PATIEN TS. CT, CHEST, WITH [id number] 21:44:00FINAL REPORT CT of the Chest, abdomen [...] to patient size and/or use of interactive recons truction technique. Heart is normal in size. Atherosclerotic [...] size. No focal lesion is seen in theliver or the spleen. Gallbladder is distended. No gallstone or biliary dilatation is noted. Pancreasand adrenals are unremarkable. Both kidneys are normal in size and functioning. A 3 mm stone is seenin the inferior pole right kidney. No hydronephrosis or hydroureter is present. A 7.4 x 8.3 x 6.87 mass is seen in the mid pole kidney. The mass is seen within the left Gerota's fascia and extending tothe renal pelvis. No renal vein thrombosis is [...] MDReport Verified Date/Time: 07/24/2018 21:44:37 Reading Location: [address] Consult Reading Room CT, [id number] 21:44:00FINAL REPORT CT of the Chest, abdomen [...] to patient size and/or use of interactive recons truction technique. Heart is normal in size. Atherosclerotic [...] size. No focal lesion is seen in theliver or the spleen. Gallbladder is distended. No gallstone or biliary dilatation is noted. Pancreasand adrenals are unremarkable. Both kidneys are normal in size and functioning. A 3 mm stone is seenin the inferior pole right kidney. No hydronephrosis or hydroureter is present. A 7.4 x 8.3 x 6.87 mass is seen in the mid pole kidney. The mass is seen within the left Gerota's fascia and extending tothe renal pelvis. No renal vein thrombosis is [...] MDReport Verified Date/Time: 07/24/2018 21:44:37 Reading Location: [address] Consult Reading Room POCT-GLUCOSE [id number] 21:35:00 Test Item Value Reference Range Interpretation Comments POC-GLUCOSE METER 104 mg/dL 70-110 TESTED AT [place] [address] (BEAKER) (test code = [facility] Raquel [facility] 1538) [address] POCT-GLUCOSE [id number] 17:53:00 Test Item Value Reference Range Interpretation Comments POC-GLUCOSE METER 163 mg/dL 70-110 H TESTED AT [place] [address] (BEAKER) [facility] 1538) [address] URINALYSIS W/ REFLEX URINE [id number] 17:22:00 Test Item Value Reference Range Interpretation [...] Few SOURCE(BEAKER) (test code = 2795) POCT-GLUCOSE [id number] 10:06:00 Test Item Value Reference Range Interpretation Comments POC-GLUCOSE METER 121 mg/dL 70-110 H TESTED AT [facility] 6720 (BEAKER) (test code = YU García [facility] 1538) [address] BASIC METABOLIC [id number] 05:47:00 Test Item Value Reference Range Interpretation [...] PATIEN TS. CBC W/PLT COUNT & AUTO [id number] 05:38:00 Test Item Value Reference Range Interpretation [...] PERCENT (BEAKER) (test code = 2801) POCT-GLUCOSE [id number] 21:46:00 Test Item Value Reference Range Interpretation Comments POC-GLUCOSE METER 144 mg/dL 70-110 H TESTED AT [facility] 6720 (BEAKER) (test code = [place] 1538) [address] POCT-GLUCOSE [id number] 12:41:00 Test Item Value Reference Range Interpretation Comments POC-GLUCOSE METER 141 mg/dL 70-110 H TESTED AT [facility] 6720 (BEAKER) (test code = [place] 1538) [address] CBC W/PLT COUNT & AUTO [id number] 05:23:00 Test Item Value Reference Range Interpretation [...] (BEAKER) (test code = 2801) BASIC METABOLIC [id number] 05:22:00 Test Item Value Reference Range Interpretation [...] NOT APPLICABLE FOR DIALYSIS PATIEN TS. PROTHROMBIN [id number] 05:15:00 Test Item Value Reference Range Interpretation Comments PROTIME (BEAKER) (test code = 13.1 seconds 11.7-14.7 759) INR (BEAKER) (test code = 370) 1.0 <=5.9 RECOMMENDED COUMADIN/WARFARIN INR THERAPY RANGESSTANDARD DOSE: 2.0 - 3.0 Includes: PROPHYLAXIS for venous thrombosis, systemic embolization; TREATMENT for venous thrombosis and/or pulmonary embolus.HIGH RISK: Target INR is 2.5-3.5 for patients with mechanical heart valves.POCT-GLUCOSE [id number] 00:12:00 Test Item Value Reference Range Interpretation Comments POC-GLUCOSE METER 121 mg/dL 70-110 H TESTED AT [facility] 6720 (SHANEKA) (test code = [place]U [place] 1538) [address]
[2023-01-30 14:46] LABS: Albumin 3.9 g/dL (3.4-5.0); Bilirubin Direct 0.1 mg/dL (0-0.2); Bilirubin Indirect, Calculated 0.3 mg/dL (0.2-0.8); Bilirubin Total 0.4 mg/dL (0.2-1.0); Magnesium 1.9 mg/dL (1.6-2.4); Potassium 4.4 mEq/L (3.5-5.1); Protein, Total 8.3 g/dL (6.4-8.2); Troponin High Sensitivity 11.9 pg/mL (<58.9)
--- NOTE | 2023-01-30 14:59 | RAD REPORT ---
EXAM DESCRIPTION: Umm Single View01/30/2023 2:44 pm CLINICAL HISTORY: cough COMPARISON: none FINDINGS: The lungs appear clear of acute infiltrate. The heart is normal size. Central venous cath eter in place IMPRESSION: No acute abnormalities displayed
[2023-01-30] MEDS ORDERED: INSULIN -REGULAR HUMAN 50 UNIT/0.5 ML ML ONE (15:07)
--- NOTE | 2023-01-30 15:30 | RAD REPORT ---
EXAM DESCRIPTION: CT - Stone Protocol - 01/30/2023 3:10 pm CLINICAL HISTORY: Abdominal pain./flank pain COMPARISON: 2019 TECHNIQUE: Computed axial tomography of the abdomen pelvis was obtained without oral or IV contrast. Lack of IV and oral contrast limits evaluation of solid organs, appendix, bowel, and vessels. Reyes l reformatted images were obtained and reviewed. All CT scans are performed using dose optimization technique as appropriate and may include automated exposure control or mA/KV adjustment according to patient size. FINDINGS: 3 millimeter calculus right kidney. No hydronephrosis. Ureteral calculus is not seen. Blad elsi calculus. Left nephrectomy. The prostate gland is markedly enlarged. Bladder is distended The liver, spleen, pancreas and adrenals appear grossly normal There is no evidence of diverticulitis. 3.4 centimeter abdominal aortic aneurysm. Postsurgical changes involve the pelvis. IMPRESSION: Small nonobstructing right renal calculus The prostate gland is markedly enlarged. Bladder is distended 3.4 centimeter abdominal aortic aneurysm. Followup imaging in 3 years recommended
[2023-01-30 15:53] LABS: Specific Gravity 1.021 (1.005-1.030); Urine Bilirubin NEGATIVE (Negative); Urine Blood Negative (Negative); Urine Clarity Clear (Clear); Urine Color Colorless (Yellow); Urine Glucose 4+ (Over) (Negative); Urine Protein NEGATIVE (Negative); Urine Urobilinogen Normal (Normal); Urine pH 5.5 (5.0-7.0)
--- NOTE | 2023-01-30 16:11 | ER ---
Nurse's Notes [facility] Name: Shivam Sykes Age: 72 yrs Sex: Male : 1950 Arrival Date: 01/30/2023 Time: 13:45 Bed 5 Private MD: Diagnosis: Type 1 diabetes mellitus with hyperglycemia;Acute kidney failure, unspecified-on chronic Presentation: 01/30 13:50 Chief complaint: Patient states: high BS last night (570) and today it was over 400, iw uses insulin , it changed from 45 units to 55 units in the morning, his home health nurse sent him for evaluation. Coronavirus screen: At this time, the client does not indicate any symptoms associated with coronavirus-19. Ebola Screen: Patient negative for fever greater than or equal to 101.5 degrees Fahrenheit, and additional compatible Ebola Virus Disease symptoms Patient denies exposure to infectious person. Patient denies travel to an Ebola-affected area in the 21 days before illness onset. No symptoms or risks identified at this time. Initial Sepsis Screen: Does the patient meet any 2 criteria? No. Patient's initial sepsis screen is negative. Does the patient have a suspected source of infection? No. Patient's initial sepsis screen is negative. Risk Assessment: Do you want to hurt yourself or someone else? Patient reports no desire to harm self or others. Onset of symptoms was January 30, 2023. 13:50 Method Of Arrival: Ambulatory iw 13:50 Acuity: JIMBO 3 iw Historical: - Allergies: 13:53 No Known Allergies; iw - PMHx: 13:53 CVA; Hypertension; Diabetes - IDDM; kidney cancer; iw - Immunization history:: Adult Immunizations unknown. - Social history:: Smoking status: Patient denies any tobacco usage or history of. Screenin:15 [facility] ED Fall Risk Assessment (Adult) History of falling in the last 3 months, db including since admission No falls in past 3 months (0 pts) Score/Fall Risk Level 0 - 2 = Low Risk Oriented to surroundings, Maintained a safe environment. Abuse screen: Denies threats or abuse. Denies injuries from another. Nutritional screening: No deficits noted. Tuberculosis screening: No symptoms or risk factors identified. Assessment: 14:12 Reassessment: Patient appears in no apparent distress at this time. Patient and/or db family updated on plan of care and expected duration. Pain level reassessed. Patient is alert, oriented x 3, equal unlabored respirations, skin warm/dry/pink. SENT BY HOME HEALTH NURSE FOR HIGH BLOOD GLUCOSE. General: Appears in no apparent distress. comfortable. Pain: Denies pain. Neuro: Level of Consciousness is awake, alert, obeys commands, Oriented to person, place, time, situation. Cardiovascular: No deficits noted. Respiratory: Airway is patent Respiratory effort is even, unlabored, Respiratory pattern is regular, symmetrical. 15:00 Reassessment: Patient appears in no apparent distress at this time. Patient and/or db family updated on plan of care and expected duration. Pain level reassessed. Patient is alert, oriented x 3, equal unlabored respirations, skin warm/dry/pink. 15:07 Reassessment: PATIENT TO CT. db 16:40 Reassessment: Patient appears in no apparent distress at this time. Patient and/or db family updated on plan of care and expected duration. Pain level reassessed. Patient is alert, oriented x 3, equal unlabored respirations, skin warm/dry/pink. Patient states feeling better. Patient states symptoms have improved. General: Appears in no apparent distress. comfortable, Behavior is calm, cooperative. Neuro: Level of Consciousness is awake, alert, obeys commands, Oriented to person, place, time, situation. Vital Signs: 13:50 BP 145 / 71; Pulse 66; Resp 16; Pulse Ox 100% on R/A; Weight 106.59 kg; Height 5 ft. 11 iw in. ; 14:30 BP 138 / 79; Pulse 64; Resp 18; Pulse Ox 100% on R/A; db 15:30 BP 161 / 75; Pulse 67; Resp 18; Pulse Ox 100% on R/A; db 16:00 BP 157 / 79; Pulse 66; Resp 18; Pulse Ox 100% on R/A; db 13:50 Body Mass Index 32.78 (106.59 kg, 180.34 cm) iw ED Course: 13:49 Patient arrived in ED. mg5 13:53 Triage completed. iw 13:54 Chuck Stein MD is Attending Physician. valentino 13:54 Arm band placed on. iw 14:00 Maria C Freire, DAVID is Primary Nurse. db 14:11 Inserted saline lock: 22 gauge in right forearm, using aseptic technique. Blood db collected. 14:15 Patient has correct armband on for positive identification. Bed in low position. Call db light in reach. Side rails up X 1. Client placed on continuous cardiac and pulse oximetry monitoring. NIBP monitoring applied. Warm blanket given. 14:15 No provider procedures requiring assistance completed. db 14:34 XRAY Chest (1 view) In Process Unspecified. EDMS 15:11 CT Stone Protocol In Process Unspecified. EDMS 16:40 Provided Education on: DISCHARGE. db 16:40 IV discontinued, intact, bleeding controlled, No redness/swelling at site. db Administered Medications: 14:23 Drug: NS 0.9% IV 1000 ml IV at 1 bolus Per protocol; 1000 mL bolus Route: IV; Rate: 1 db bolus; Site: right forearm; 16:40 Follow up: Response: No adverse reaction; IV Status: Completed infusion; IV Intake: db 1000ml 15:02 Drug: Insulin Regular Human IVP 10 units IVP once {Co-Signature: ld1 (Mahi Adair RN).} Route: IVP; Site: right antecubital; 16:40 Follow up: Response: No adverse reaction db 15:06 Drug: NS 0.9% IV 1000 ml IV at 1 bolus Per protocol; 1000 mL bolus Route: IV; Rate: 1 db bolus; Site: right forearm; 16:40 Follow up: Response: No adverse reaction; IV Status: Completed infusion; IV Intake: db 1000ml 15:07 Not Given (PER PHYSICIAN HOLD GLUCOSE 352b): insulin regular human10 units Sub-Q once db 16:42 Not Given (GLUCOSE 203c): insulin [id number] units Sub-Q once db 16:42 Not Given (Hemodynamic Parameters): insulin regular human10 units IVP once; if recheck db glucose is over 300 mg/dl Medication: 16:40 VIS not applicable for this client. db Point of Care Testing: Blood Glucose: 14:01 Blood Glucose: 459 mg/dL; iw 15:00 Blood Glucose: 352 mg/dL; db 16:42 Blood Glucose: 203 mg/dL; db Ranges: Intake: 16:40 IV: 1000ml; Total: 1000ml. db 16:40 IV: 1000ml; Total: 2000ml. db Outcome: 16:10 Discharge ordered by . valentino 16:40 Discharged to home ambulatory, with family, db 16:40 Condition: stable 16:40 Discharge instructions given to patient, Instructed on discharge instructions, follow up and referral plans. 16:53 Patient left the ED. db Signatures: Dispatcher [employer] Chuck Fischer MD MD cha Williams, Irene, RN DAVID iw Maria C Freire RN RN Marissa Waite mg5 Mahi Adair RN ld1 Corrections: (The following items were deleted from the chart) 13:53 13:53 PMHx: cancer; iw iw 13:53 13:53 PMHx: cancer; iw iw 13:53 13:53 PMHx: cancer; iw iw 13:53 13:53 PMHx: cancer; iw iw 13:53 13:53 PMHx: cancer; iw iw 13:53 13:53 PMHx: cancer; iw iw
--- NOTE | 2023-01-30 16:11 | EDPHYS ---
Physician Documentation [facility] Name: hSivam Sykes Age: 72 yrs Sex: Male : 1950 Arrival Date: 01/30/2023 Time: 13:45 Bed 5 Private MD: ED Physician Chuck Stein HPI: 01/30 14:29 This 72 yrs old Male presents to ER via Ambulatory with complaints of High valentino Blood Sugar. 14:29 The patient or guardian reports hyperglycemia. Onset: The symptoms/episode valentino began/occurred 1 day(s) ago. Associated signs and symptoms: Pertinent positives: None. Pertinent negatives: None. Current symptoms: In the emergency department the patient's symptoms are unchanged from the initial presentation, despite home interventions. The patient has not experienced similar symptoms in the past. Historical: - Allergies: 13:53 No Known Allergies; iw - PMHx: 13:53 CVA; Hypertension; Diabetes - IDDM; kidney cancer; iw - Immunization history:: Adult Immunizations unknown. - Social history:: Smoking status: Patient denies any tobacco usage or history of. ROS: 14:30 Constitutional: Negative for fever, chills, and weight loss, Eyes: Negative for injury, valentino pain, redness, and discharge, ENT: Negative for injury, pain, and discharge, Neck: Negative for injury, pain, and swelling, Cardiovascular: Negative for chest pain, palpitations, and edema, Respiratory: Negative for shortness of breath, cough, wheezing, and pleuritic chest pain, Abdomen/GI: Negative for abdominal pain, nausea, vomiting, diarrhea, and constipation, Back: Negative for injury and pain, : Negative for injury, bleeding, discharge, and swelling, MS/Extremity: Negative for injury and deformity, Skin: Negative for injury, rash, and discoloration, Neuro: Negative for headache, weakness, numbness, tingling, and seizure, Psych: Negative for depression, anxiety, suicide ideation, homicidal ideation, and hallucinations, Allergy/Immunology: Negative for hives, rash, and allergies, Hematologic/Lymphatic: Negative for swollen nodes, abnormal bleeding, and unusual bruising, 14:30 Endocrine: Positive for Exam: 14:30 Constitutional: This is a well developed, well nourished patient who is awake, alert, valentino and in no acute distress. Head/Face: Normocephalic, atraumatic. Eyes: Pupils equal round and reactive to light, extra-ocular motions intact. Lids and lashes normal. Conjunctiva and sclera are non-icteric and not injected. Cornea within normal limits. Periorbital areas with no swelling, redness, or edema. ENT: Nares patent. No nasal discharge, no septal abnormalities noted. Tympanic membranes are normal and external auditory canals are clear. Oropharynx with no redness, swelling, or masses, exudates, or evidence of obstruction, uvula midline. Mucous membranes moist. Neck: Trachea midline, no thyromegaly or masses palpated, and no cervical lymphadenopathy. Supple, full range of motion without nuchal rigidity, or vertebral point tenderness. No Meningismus. Chest/axilla: Normal chest wall appearance and motion. Nontender with no deformity. No lesions are appreciated. Cardiovascular: Regular rate and rhythm with a normal S1 and S2. No gallops, murmurs, or rubs. Normal PMI, no JVD. No pulse deficits. Respiratory: Lungs have equal breath sounds bilaterally, clear to auscultation and percussion. No rales, rhonchi or wheezes noted. No increased work of breathing, no retractions or nasal flaring. Abdomen/GI: Soft, non-tender, with normal bowel sounds. No distension or tympany. No guarding or rebound. No evidence of tenderness throughout. Back: No spinal tenderness. No costovertebral tenderness. Full range of motion. Male : Normal genitalia with no discharge or lesions. Skin: Warm, dry with normal turgor. Normal color with no rashes, no lesions, and no evidence of cellulitis. MS/ Extremity: Pulses equal, no cyanosis. Neurovascular intact. Full, normal range of motion. Neuro: Awake and alert, GCS 15, oriented to person, place, time, and situation. Cranial nerves II-XII grossly intact. Motor strength 5/5 in all extremities. Sensory grossly intact. Cerebellar exam normal. Normal gait. Psych: Awake, alert, with orientation to person, place and time. Behavior, mood, and affect are within normal limits. 14:30 ECG was reviewed by the Attending Physician. Vital Signs: 13:50 BP 145 / 71; Pulse 66; Resp 16; Pulse Ox 100% on R/A; Weight 106.59 kg; Height 5 ft. 11 iw in. ; 14:30 BP 138 / 79; Pulse 64; Resp 18; Pulse Ox 100% on R/A; db 15:30 BP 161 / 75; Pulse 67; Resp 18; Pulse Ox 100% on R/A; db 16:00 BP 157 / 79; Pulse 66; Resp 18; Pulse Ox 100% on R/A; db 13:50 Body Mass Index 32.78 (106.59 kg, 180.34 cm) iw MDM: 13:55 Patient medically screened. valentino 14:35 Differential diagnosis: hyperglycemia. Data reviewed: vital signs, nurses notes, lab [facility] test result(s), EKG, radiologic studies, plain films. Consideration of Admission/Observation Escalation of care including admission/observation considered. I considered the following discharge prescriptions or medication management in the emergency department Medications were administered in the Emergency Department. See MAR. Independent interpretation of the following test(s) in the Emergency Department EKG: See my EKG interpretation above. Test considered but Not performed: CT: no ct abd pelvic. 01/30 13:55 Order name: Basic Metabolic Panel; Complete Time: 14:50 valentino 01/30 13:55 Order name: CBC with Diff; Complete Time: 14:50 valentino 01/30 13:55 Order name: LFT's; Complete Time: 14:50 valentino 01/30 13:55 Order name: Magnesium; Complete Time: 14:50 valentino 01/30 13:55 Order name: NT PRO-BNP; Complete Time: 14:50 valentino 01/30 13:55 Order name: PT-INR; Complete Time: 14:50 valentino 01/30 13:55 Order name: Troponin HS; Complete Time: 14:50 valentino 01/30 13:55 Order name: Lipase; Complete Time: 14:50 valentino 01/30 13:55 Order name: Urinalysis w/ reflexes; Complete Time: 16:07 valentino 01/30 14:11 Order name: Glucose, Ancillary Testing; Complete Time: 14:27 EDMS 01/30 15:12 Order name: Glucose, Ancillary Testing; Complete Time: 15:25 EDMS 01/30 13:55 Order name: XRAY Chest (1 view); Complete Time: 15:25 valentino 01/30 14:55 Order name: CT Stone Protocol; Complete Time: 15:38 valentino 01/30 13:55 Order name: EKG; Complete Time: 13:56 valentino 01/30 13:55 Order name: Cardiac monitoring; Complete Time: 14:08 [facility] 01/30 13:55 Order name: EKG - Nurse/Tech; Complete Time: 14:08 [facility] 01/30 13:55 Order name: IV Saline Lock; Complete Time: 14:08 [facility] 01/30 13:55 Order name: Labs collected and sent; Complete Time: 14:08 [facility] 01/30 13:55 Order name: O2 Per Protocol; Complete Time: 14: [facility] 01/30 13:55 Order name: O2 Sat Monitoring; Complete Time: 14: [facility] 01/30 14:51 Order name: Blood Glucose Level; Complete Time: 16:53 [facility] 01/30 16:09 Order name: Glucose Level; Complete Time: 16:53 [facility] EC:30 Rate is 67 beats/min. Rhythm is regular. QRS [place] is Normal. [place] interval is normal. QRS valentino interval is normal. QT interval is normal. No Q waves. T waves are Normal. No ST changes noted. Clinical impression: NSR w/ Non-specific ST/T Changes and No evidence of ischemia. Interpreted by me. Reviewed by me. Administered Medications: 14:23 Drug: NS 0.9% IV 1000 ml IV at 1 bolus Per protocol; 1000 mL bolus Route: IV; Rate: 1 db bolus; Site: right forearm; 16:40 Follow up: Response: No adverse reaction; IV Status: Completed infusion; IV Intake: db 1000ml 15:02 Drug: Insulin Regular Human IVP 10 units IVP once {Co-Signature: ld1 (Mahi Adair RN).} Route: IVP; Site: right antecubital; 16:40 Follow up: Response: No adverse reaction db 15:06 Drug: NS 0.9% IV 1000 ml IV at 1 bolus Per protocol; 1000 mL bolus Route: IV; Rate: 1 db bolus; Site: right forearm; 16:40 Follow up: Response: No adverse reaction; IV Status: Completed infusion; IV Intake: db 1000ml 15:07 Not Given (PER PHYSICIAN HOLD GLUCOSE 352b): insulin regular human10 units Sub-Q once db 16:42 Not Given (GLUCOSE 203c): insulin ciragxtf56 units Sub-Q once db 16:42 Not Given (Hemodynamic Parameters): insulin regular human10 units IVP once; if recheck db glucose is over 300 mg/dl Point of Care Testing: Blood Glucose: 14:01 Blood Glucose: 459 mg/dL; iw 15:00 Blood Glucose: 352 mg/dL; db 16:42 Blood Glucose: 203 mg/dL; db Ranges: Critical Glucose Levels:Adult <50 mg/dl or >400 mg/dl <40 mg/dl or >180 mg/dl Disposition Summary: 01/30/23 16:10 Discharge Ordered Notes: Location: Home valentino Problem: new valentino Symptoms: have improved valentino Condition: Stable valentino Diagnosis - Type 1 diabetes mellitus with hyperglycemia valentino - Acute kidney failure, unspecified - on chronic valentino Followup: valentino - With: Private Physician - When: 2 - 3 days - Reason: Recheck today's complaints, Continuance of care, Re-evaluation by your physician Discharge Instructions: - Discharge Summary Sheet valentino - Hyperglycemia valentino - Complementary and Alternative Medical Treatments for Diabetes valentino - Daily Diabetes Mellitus Record valentino - Diabetes Mellitus and Exercise valentino - Diabetes Mellitus and Nutrition, Adult valentino - Acute Kidney Injury, Adult valentino - Hyperglycemia, [id number] valentino - Chronic Kidney Disease, Adult, [id number] avlentino Forms: - Medication Reconciliation Form valentino - Thank You Letter valentino - Antibiotic Education valentino - Prescription Opioid Use valentino - Patient Portal Instructions valentino - Leadership Thank You Letter valentino Signatures: Dispatcher [employer] Chuck Fischer MD MD cha Williams, Irene RN Maria C Kelly RN RN Mahi Bradley RN ld1 Corrections: (The following items were deleted from the chart) 13:53 13:53 PMHx: cancer; iw iw 13:53 13:53 PMHx: cancer; iw iw 13:53 13:53 PMHx: cancer; iw iw 13:53 13:53 PMHx: cancer; iw iw 13:53 13:53 PMHx: cancer; iw iw 13:53 13:53 PMHx: cancer; iw iw
[2023-01-30 17:26] VITALS: BP 161/75; O2SAT 100
--- NOTE | 2023-01-31 17:00 | EKG ---
Test Date: 2023-01-30 Test Time: 14:12:01 Joint Machine Operator: NOAH MEASUREMENT RESULTS: Intervals: Rate: 67 MO: QRSD: 134 QT: 426 QTc: 450 [place]: P: MO: QRS: 45 T: 63 INTERPRETIVE STATEMENTS: Wide QRS rhythm Right bundle branch block Abnormal ECG Compared to ECG 12/03/2018 18:34:18 Uncertain supraventricular rhythm now present Sinus bradycardia no longer present Electronically Signed On 01-31-23 16:56:48 CDT by Killian Hubbard
== END 2023-01-30 16:53 | disposition home or self-care (01) ==
LOC: ER 13:45
DX: E10.22 Type 1 diabetes mellitus with diabetic chronic kidney disease (principal); E10.65 Type 1 diabetes mellitus with hyperglycemia; I12.9 Hypertensive chronic kidney disease with stage 1 through stage 4 chronic kidney disease, or unspecified chronic kidney disease; N18.9 Chronic kidney disease, unspecified; N17.9 Acute kidney failure, unspecified; Z86.73 Personal history of transient ischemic attack (TIA), and cerebral infarction without residual deficits
CPT/HCPCS: 85025; 80048; 36415; 83735; 85610; 82947 ×3; 80076; 81003; 84484; 83690; 83880; 76377; 74176; 71045; J1815; J7030 ×2; 93005; 96361; 96374; 99284

== ENCOUNTER 2023-11-06 10:21 | Emergency (ER) | payer OTHER ==
[2023-11-06] MEDS ORDERED: MUPIROCIN 2% OINT 22GM TUBE TOP ONE (13:22)
[2023-11-06] MEDS ORDERED: CEPHALEXIN 250 MG CAP ONE (13:22)
--- NOTE | 2023-11-06 13:32 | ER ---
Nurse's Notes [facility] Name: Shivam Sykes Age: 73 yrs Sex: Male : 1950 Arrival Date: 11/06/2023 Time: 10:21 Bed DIS1 Private MD: Diagnosis: Abrasion of lower leg;Abrasion, right foot;Abrasion, left foot;Cellulitis of other parts of limb Presentation: 11/05 11:15 Chief complaint: Patient states: Wounds to bilateral feet, legs, hx of DM and renal jl7 cancer, currently on chemo. Coronavirus screen: At this time, the client does not indicate any symptoms associated with coronavirus-19. Ebola Screen: No symptoms or risks identified at this time. Initial Sepsis Screen: Does the patient meet any 2 criteria? No. Patient's initial sepsis screen is negative. Does the patient have a suspected source of infection? No. Patient's initial sepsis screen is negative. Risk Assessment: Do you want to hurt yourself or someone else? Patient reports no desire to harm self or others. Onset of symptoms is unknown. 11:15 Method Of Arrival: Ambulatory 7 11:15 Acuity: JIMBO 3 jl7 Triage Assessment: 11:17 General: Appears in no apparent distress. uncomfortable, Behavior is calm, cooperative, jl7 appropriate for age. Pain: Complains of pain in back Pain currently is 3 out of 10 on a pain scale. Historical: - Allergies: 11:17 No Known Allergies; jl7 - PMHx: 11:17 cancer; CVA; Diabetes - IDDM; Hypertension; kidney cancer; jl7 - Immunization history:: Adult Immunizations unknown. - Infectious Disease History:: Denies. - Social history:: Smoking status: Patient denies any tobacco usage or history of. Screenin:18 [facility] ED Fall Risk Assessment (Adult) History of falling in the last 3 months, jb4 including since admission No falls in past 3 months (0 pts) Confusion or Disorientation No (0 pts) Intoxicated or Sedated No (0 pts) Impaired Gait No (0 pts) Mobility Assist Device Used No (0 pt) Altered Elimination No (0 pt) Score/Fall Risk Level 0 - 2 = Low Risk Oriented to surroundings, Maintained a safe environment. Abuse screen: Denies threats or abuse. Nutritional screening: No deficits noted. Tuberculosis screening: No symptoms or risk factors identified. Assessment: 12:18 General: Appears in no apparent distress. comfortable, Behavior is calm, cooperative, jb4 appropriate for age. Pain: Complains of pain in right foot and left foot Pain does not radiate. Pain currently is 3 out of 10 on a pain scale. Neuro: Level of Consciousness is awake, alert, obeys commands, Oriented to person, place, time, situation. Cardiovascular: Capillary refill is sluggish in bilateral toes Patient's skin is warm and dry. Pulses are 2+ in right dorsalis pedis artery and left dorsalis pedis artery. Respiratory: Airway is patent Respiratory effort is even, unlabored, Respiratory pattern is regular, symmetrical. GI: No signs and/or symptoms were reported involving the gastrointestinal system. : No signs and/or symptoms were reported regarding the genitourinary system. EENT: No signs and/or symptoms were reported regarding the EENT system. Derm: Skin has lesions on The inner aspect of both heels. Musculoskeletal: Circulation, motion, and sensation intact. Range of motion: intact in all extremities. 13:31 Reassessment: Patient appears in no apparent distress at this time. Patient and/or jb4 family updated on plan of care and expected duration. Pain level reassessed. Patient is alert, oriented x 3, equal unlabored respirations, skin warm/dry/pink. Vital Signs: 11:15 BP 154 / 76; Pulse 70; Resp 17; Temp 97.5; Pulse Ox 97% ; Weight 111.13 kg; Height 5 jl7 ft. 11 in. ; Pain 3/10; 11:15 Body Mass Index 34.17 (111.13 kg, 180.34 cm) jl7 11:15 Pain Scale: Adult jl7 ED Course: 10:29 Patient arrived in ED. mg5 11:04 Chuck Stein MD is Attending Physician. valentino 11:17 Triage completed. jl7 11:17 Arm band placed on right wrist. Patient placed in waiting room, Patient notified of jl7 wait time. 12:12 Patient placed in a hallway bed, on a stretcher. ll1 12:18 Patient has correct armband on for positive identification. Bed in low position. Call jb4 light in reach. Side rails up X 1. Provided Education on: plan of care. 12:18 No provider procedures requiring assistance completed. jb4 13:30 Carmelo Godinez MD is Referral Physician. [facility] Administered Medications: 13:31 Drug: Cephalexin PO 500 mg PO once Route: PO; jb4 13:31 Drug: Mupirocin Topical Ointment 2 % 1 application Topical once Route: Topical; Site: jb4 wound; Medication: 12:18 VIS not applicable for this client. jb4 Outcome: 13:31 Discharge ordered by . valentino 13:38 Discharged to home ambulatory, jb4 13:38 Condition: stable 13:38 Discharge instructions given to patient, Instructed on discharge instructions, follow up and referral plans. medication usage, Demonstrated understanding of instructions, follow-up care, medications, Prescriptions given X 2, 13:39 Patient left the ED. jb4 Signatures: Chuck Stein MD MD cha Bryson, James, RN RN jb4 Caio Johnson RN RN jl7 Humera Adler RN RN ll1 Marissa Barker [facility]
--- NOTE | 2023-11-06 13:32 | EDPHYS ---
Physician Documentation [facility] Name: Shivam Sykes Age: 73 yrs Sex: Male : 1950 Arrival Date: 11/06/2023 Time: 10:21 Bed DIS1 Private MD: ED Physician Chuck Stein HPI: 11/05 13:25 This 73 yrs old Male presents to ER via Ambulatory with complaints of Leg valentino Pain. Historical: - Allergies: 11:17 No Known Allergies; jl7 - PMHx: 11:17 cancer; CVA; Diabetes - IDDM; Hypertension; kidney cancer; jl7 - Immunization history:: Adult Immunizations unknown. - Infectious Disease History:: Denies. - Social history:: Smoking status: Patient denies any tobacco usage or history of. ROS: 13:26 Constitutional: Negative for fever, chills, and weight loss, Eyes: Negative for injury, valentino pain, redness, and discharge, ENT: Negative for injury, pain, and discharge, Neck: Negative for injury, pain, and swelling, Cardiovascular: Negative for chest pain, palpitations, and edema, Respiratory: Negative for shortness of breath, cough, wheezing, and pleuritic chest pain, Abdomen/GI: Negative for abdominal pain, nausea, vomiting, diarrhea, and constipation, Back: Negative for injury and pain, : Negative for injury, bleeding, discharge, and swelling, Neuro: Negative for headache, weakness, numbness, tingling, and seizure, Psych: Negative for depression, anxiety, suicide ideation, homicidal ideation, and hallucinations, Allergy/Immunology: Negative for hives, rash, and allergies, Endocrine: Negative for neck swelling, polydipsia, polyuria, polyphagia, and marked weight changes, Hematologic/Lymphatic: Negative for swollen nodes, abnormal bleeding, and unusual bruising, 13:26 MS/extremity: Positive for decreased range of motion, erythema, pain, tenderness, of the right foot and left foot, Exam: 13:26 Constitutional: This is a well developed, well nourished patient who is awake, alert, valentino and in no acute distress. Head/Face: Normocephalic, atraumatic. Eyes: Pupils equal round and reactive to light, extra-ocular motions intact. Lids and lashes normal. Conjunctiva and sclera are non-icteric and not injected. Cornea within normal limits. Periorbital areas with no swelling, redness, or edema. ENT: Nares patent. No nasal discharge, no septal abnormalities noted. Tympanic membranes are normal and external auditory canals are clear. Oropharynx with no redness, swelling, or masses, exudates, or evidence of obstruction, uvula midline. Mucous membranes moist. Neck: Trachea midline, no thyromegaly or masses palpated, and no cervical lymphadenopathy. Supple, full range of motion without nuchal rigidity, or vertebral point tenderness. No Meningismus. Chest/axilla: Normal chest wall appearance and motion. Nontender with no deformity. No lesions are appreciated. Cardiovascular: Regular rate and rhythm with a normal S1 and S2. No gallops, murmurs, or rubs. Normal PMI, no JVD. No pulse deficits. Respiratory: Lungs have equal breath sounds bilaterally, clear to auscultation and percussion. No rales, rhonchi or wheezes noted. No increased work of breathing, no retractions or nasal flaring. Abdomen/GI: Soft, non-tender, with normal bowel sounds. No distension or tympany. No guarding or rebound. No evidence of tenderness throughout. Back: No spinal tenderness. No costovertebral tenderness. Full range of motion. Skin: Warm, dry with normal turgor. Normal color with no rashes, no lesions, and no evidence of cellulitis. Neuro: Awake and alert, GCS 15, oriented to person, place, time, and situation. Cranial nerves II-XII grossly intact. Motor strength 5/5 in all extremities. Sensory grossly intact. Cerebellar exam normal. Normal gait. Psych: Awake, alert, with orientation to person, place and time. Behavior, mood, and affect are within normal limits. 13:26 Musculoskeletal/extremity: ROM: no acute changes, intact in all extremities, full active range of motion, full passive range of motion, Circulation is intact in all extremities. Sensation intact. Compartment Syndrome exam of affected extremity: is normal. Weight bearing: able to fully bear weight, DVT Exam: negative Homans' sign noted on exam, no appreciated bluish discoloration, pain, swelling, tenderness, erythema, increased warmth, of the right foot and left foot, Vital Signs: 11:15 BP 154 / 76; Pulse 70; Resp 17; Temp 97.5; Pulse Ox 97% ; Weight 111.13 kg; Height 5 jl7 ft. 11 in. ; Pain 3/; 11:15 Body Mass Index 34.17 (111.13 kg, 180.34 cm) 7 11:15 Pain Scale: Adult jl7 MDM: 11:04 Patient medically screened. [facility] 13:28 Differential diagnosis: contusion, abrasion, tendonitis. Data reviewed: vital signs, valentino nurses notes. Consideration of Admission/Observation Escalation of care including admission/observation considered. I considered the following discharge prescriptions or medication management in the emergency department Medications were administered in the Emergency Department. See MAR. Test considered but Not performed: Labs: no labs. Historians other than the Patient: pt well informed. Care significantly affected by the following chronic conditions: Diabetes, Hypertension, Cancer. 11/05 13:26 Order name: Wound dressing; Complete Time: 13:31 valentino Administered Medications: 13:31 Drug: Cephalexin PO 500 mg PO once Route: PO; jb4 13:31 Drug: Mupirocin Topical Ointment 2 % 1 application Topical once Route: Topical; Site: jb4 wound; Disposition Summary: 11/06/23 13:31 Discharge Ordered Notes: Location: Home valentino Problem: new valentino Symptoms: have improved valentino Condition: Stable valentino Diagnosis - Abrasion of lower leg valentino - Abrasion, right foot valentino - Abrasion, left foot valentino - Cellulitis of other parts of limb valentino Followup: valentino - With: Private Physician - When: 2 - 3 days - Reason: Recheck today's complaints, Continuance of care, Re-evaluation by your physician Followup: valentino - With: Carmelo Godinez MD - When: 2 - 3 days - Reason: Recheck today's complaints, Re-evaluation by your physician Discharge Instructions: - Discharge Summary Sheet valentino - Abrasion valentino - Cellulitis, Adult valentino - Cellulitis, Adult, [id number] valentino - Abrasion, [id number] valentino Forms: - Medication Reconciliation Form valentino - Antibiotic Education valentino - Prescription Opioid Use valentino - Patient Portal Instructions valentino - Leadership Thank You Letter [facility] Prescriptions: - Centany 2 % Topical ointment - apply 1 application TOPICAL route 3 times per day; 30 gram; Refills: 0, Product valentino Selection Permitted - Cephalexin 500 mg Oral capsule - take 1 capsule ORAL route every 6 hours for 10 days; 28 capsule; Refills: 0, valentino Product Selection Permitted Signatures: Chuck Stein MD MD cha Bryson, James, RN RN jb4 Caio Johnson RN RN jl7
[2023-11-06 15:35] VITALS: BP 154/76; TEMP 97.5; O2SAT 97
== END 2023-11-06 13:39 | disposition home or self-care (01) ==
LOC: ER 10:21
DX: S80.811A Abrasion, right lower leg, initial encounter (principal); L03.115 Cellulitis of right lower limb; S90.812A Abrasion, left foot, initial encounter; S90.811A Abrasion, right foot, initial encounter
CPT/HCPCS: 99283